=== PATIENT | male | born 1955 | race Caucasian/White ===

== ENCOUNTER 2018-11-26 14:51 | Emergency (ER) | payer OTHER, SELFPAY ==
[2018-10-01 13:32] VITALS: BMI 21.6
[2018-11-26 14:52] VITALS: BP 157/73; PULSE 95; RESP 22; TEMP 38.7; O2SAT 93; BMI 21.3
[2018-11-26 14:55] VITALS: BP 157/73; PULSE 95; RESP 22; TEMP 38.7; O2SAT 93
[2018-11-26] MEDS: Ibuprofen 600 MG Tablet PO (15:27)
--- NOTE | 2018-11-26 15:33 | RAD_ITS ---
STUDY: X-RAY CHEST REASON FOR EXAM: Male, 63 years old. Fever and cough TECHNIQUE: Frontal and lateral views of the chest. COMPARISON: None. FINDINGS: Subsegmental atelectases in the right and left lung bases. There is no demonstrated pleural abnormality. Normal size heart. Normal mediastinum and eda. Normal visualized pulmonary arteries. Normal visualized aortic arch and descending thoracic aorta. Normal visualized thoracic spine. There is degenerative osteoarthritis of the bilateral shoulders. There is no demonstrated abnormality of the visualized soft tissue structures of the upper abdomen. RAD/Chest PA and Lateral IMPRESSION: Normal x-ray examination of the chest. Electronically Signed: Sol Sykes, at 15:46 EDT Tel , Service support ,
--- NOTE | 2018-11-26 15:49 | ED.VISSUMM ---
- ER Visit Summary Date of Service: 11/26/18 Chief Complaint: Fever and cough [] History of Present Illness: The patient is a 63 M presents to the emergency department with complaint of fever and cough that started 3 or 4 days ago. Patient states that yesterday he thought he was getting better but today symptoms came back with elevated temperature. Patient complains of a headache and runny nose. Patient states that several days ago he bought Mucinex and [place] but do not seem to be helping his symptoms. Patient denies any vomiting or diarrhea. Patient does have a history of COPD and remote history of prostate cancer. Patient not currently undergoing chemotherapy. Patient does complain of body aches. Patient states the cough is been nonproductive. He denies recent travel. [] Physical Examination: [HEENT-PERRLA, EOMI. Cranial nerves II through XII grossly intact. TMs clear. Mucous membranes moist. No adenopathy. Cardiovascular-regular rate and rhythm without murmur or ectopy Lungs-good aeration bilaterally. Patient has some faint expiratory wheezes. Mild tachypnea. No accessory muscle use or retractions. No conversational dyspnea. Abdomen-normoactive bowel sounds, soft, nontender, no rebound or rigidity, no peritoneal signs. Extremities-intact ?4, normal range of motion, normal pulses, atraumatic] Test Results: [Chest x-ray showed nothing acute. Fluids screen was positive for influenza.] Emergency Department Course and Treatment: [Patient was given ibuprofen 600 mg p.o. Patient was given a DuoNeb aerosol.] Treatment Plan: [Patient will be given albuterol for his nebulizer for home. Patient advised to push fluids and ibuprofen for fever control. Patient is not within the 88-hour window for starting Tamiflu.] Disposition: [Discharged home in stable condition. Patient advised to return if increasing shortness of breath or condition should worsen anyway.] Impression: [Influenza] This note was generated with [employer] dictation software. It may contain incorrect words, spelling, and punctuation that were not noted in review of the chart prior to signing ED Disposition - Plan for ED Patient: Referrals: Rolando Granda,Cheryl Harp [Primary Care Provider] -
[2018-11-26 15:59] VITALS: PULSE 97; RESP 20; O2SAT 94
[2018-11-26] MEDS: Ipratropium/Albuterol Sulfate 3 ML AMPUL.NEB INHALATION (15:59)
--- NOTE | 2018-11-26 16:19 | ED.DEP ---
ED Disposition - Plan for ED Patient: Instructions: ED Flu Prescriptions: Albuterol Aerosols [Ventolin Aerosols] 2.5 mg INHALATION Q4HWA.RT #25 vial.neb. Referrals: Cheryl Simmons [Primary Care Provider] - 5-7 Days
== END 2018-11-26 16:37 | disposition home or self-care (01) ==
LOC: ED 15:27
PROVIDERS: Emergency Provider Emergency Medicine
DX: J11.1 Influenza due to unidentified influenza virus with other respiratory manifestations (principal); J44.9 Chronic obstructive pulmonary disease, unspecified; Z72.0 Tobacco use
CPT/HCPCS: 71046; 87804; 94640; 99282; A4216

== ENCOUNTER → 2019-06-20 08:06 | Outpatient (CLI) | payer MEDICARE, SELFPAY ==
[2019-05-20 10:27] VITALS: BMI 21.2
[2019-06-20 09:11] LABS: Platelet Count 215 K/mm3 (150-450)
[2019-06-20 09:45] LABS: AST(SGOT) 31 U/L (15-37); Alanine Aminotransfer ALT/SGPT 41 U/L (16-61); Albumin, Serum 3.9 g/dL (3.2-5.0); Alkaline Phosphatase 85 U/L (45-117); Bilirubin, Direct 0.09 mg/dL (0.00-0.30); Globulin 3.4 g/dL (2.2-4.2); Protein, Total 7.3 g/dL (6.4-8.2)
[2019-06-20 10:33] LABS: Amphetamine Urine VISTA NEGATIVE (<1000 ng/mL); Barbiturate Urine VISTA NEGATIVE (< 200 ng/mL); Benzodiazepine Urine VISTA NEGATIVE (< 200 ng/mL); Cocaine Urine VISTA NEGATIVE (< 300 ng/mL); Ecstacy Urine VISTA NEGATIVE (< 500 ng/mL); Methadone Urine VISTA NEGATIVE (< 300 ng/mL); PCP Urine VISTA NEGATIVE (< 25 ng/mL); THC Urine VISTA NEGATIVE (< 50 ng/mL); Vista UDS pH Range 5
[2019-06-22 03:07] LABS: HCV Quant. RNA PCR 535000 IU/mL (.)
[2019-06-24 12:36] LABS: HCV log 10 5.728 (.)
== END ==
PROVIDERS: Referring Provider Internal Medicine Infectious Disease; Visit Provider Internal Medicine Infectious Disease
DX: B18.2 Chronic viral hepatitis C (principal); M25.512 Pain in left shoulder
CPT/HCPCS: 36415; 80076; 80307; 85049; 87522

== ENCOUNTER → 2019-07-01 09:02 | Outpatient (CLI) | payer MEDICARE, SELFPAY ==
[2019-05-20 10:27] VITALS: BMI 21.2
--- NOTE | 2019-07-01 09:05 | US_ITS ---
STUDY: ABDOMINAL ULTRASOUND REASON FOR EXAM: Male, 64 years old. Chronic hepatitis C TECHNIQUE: Transabdominal ultrasound was performed with real-time and static cabrera scale imaging. TECHNICAL QUALITY: Adequate. COMPARISON: None. FINDINGS: Liver: The liver measures 14.5 cm. There is diffusely increased echogenicity of the liver. The bile ducts are within normal limits. There is hepatic color flow. The direction of portal flow is hepatopetal. There is no demonstrated mass lesion. Portal vein measurement: Gallbladder: Normal distended gallbladder. The gallbladder wall measures 3 mm. There is a negative sonographic Valencia's sign. There is no pericholecystic fluid. There are no gallstones. Common Bile Duct (C.B.D.): The common bile duct measures 4 mm. Pancreas: Normal size of the head, body and tail of the pancreas. There is normal echogenicity of the pancreas. There is no demonstrated pancreatic mass or cyst. Spleen: Normal size of the spleen. The spleen measures 8.6 x 3.8 x 4.5 cm. Right Kidney: Normal size of the right kidney. The right kidney measures 10.5 x 4.7 x 3.8 cm. Normal renal cortex. The right cortex measures 1.3 cm. There is no demonstrated renal mass or cyst. There is no right hydronephrosis. Left Kidney: Normal size of the left kidney. The left kidney measures 9.9 x 4.7 x 4.5 cm. Normal renal cortex. The left cortex measures 1.6 cm. There is no demonstrated renal mass or cyst. There is no left hydronephrosis. Aorta: No evidence for aortic aneurysm I.V.C.: The IVC is patent. There is no ascites. US/Abdomen Complete IMPRESSION: Findings consistent with nonspecific hepatocellular disease. Mildly thick-walled gallbladder without stones possibly physiologic. If concern for gallbladder disease HIDA scan with stimulation recommended for further assessment Electronically Signed: Chris Grant MD at 19:38 EDT , Service support ,
== END ==
DX: B18.2 Chronic viral hepatitis C (principal)
CPT/HCPCS: 76700

== ENCOUNTER → 2019-08-13 08:03 | Outpatient (CLI) | payer MEDICARE, SELFPAY ==
[2019-05-20 10:27] VITALS: BMI 21.2
--- NOTE | 2019-08-13 08:20 | BD_ITS ---
STUDY: DUAL ENERGY X-RAY ABSORPTIOMETRY / DXA REASON FOR EXAM: Male, 64 years old. Loss of height. TECHNIQUE: Bone Mineral Density (BMD) measurements of lumbar spine and bilateral hips were obtained. COMPARISON: None. FINDINGS: Lumbar Spine (L1-L4): g/cm2 (1.076) / T-score (-1.1) / Z-score (-0.7) Findings are suggestive of osteopenia with a low fracture risk. Left Femur Total: g/cm2 (0.801) / T-score (-2.1) / Z-score (-1.5) Left Femoral Neck: g/cm2 (0.789) / T-score (-2.2) / Z-score (-1.1) Right Femur Total: g/cm2 (0.793) / T-score (-2.1) / Z-score (-1.6) Right Femoral Neck: g/cm2 (0.791) / T-score (-2.1) / Z-score (-1.1) BD/Dexa Bone Density Study IMPRESSION: The patient is considered osteopenic as outlined below according to World [employer] Organization (WHO) criteria with a high fracture risk. Reference Information: The T-score is the number of standard deviations above or below the standard which is normal for young adults at their peak bone mineral density. The World Health Organization (WHO) interprets the T-scores as follows: Above -1 Normal bone density Between -1 and -2.5 Osteopenia Equal to / or below -2.5 Osteoporosis As a practical clinical guideline, osteopenia may be graded as follows: Mild -1 through -1.5 Moderate -1.6 through -2.0 Severe -2.1 through -2.4 The Z-score is the number of standard deviations above or below age-matched controls. A Z-score of less than -1.5 would be considered abnormal. References: 1. NIH Osteoporosis and Related Bone Diseases http://www.osteo.org 2. International Society for Clinical Densitometry http://www.iscd.org 3. National Osteoporosis Foundation http://www.nof.org Electronically Signed: Adriano Martin, at 12:42 EST , Service support ,
== END ==
PROVIDERS: Referring Provider Internal Medicine Hematology & Oncology; Visit Provider Internal Medicine Hematology & Oncology
DX: C61 Malignant neoplasm of prostate (principal); C77.9 Secondary and unspecified malignant neoplasm of lymph node, unspecified; R97.21 Rising PSA following treatment for malignant neoplasm of prostate; Z79.52 Long term (current) use of systemic steroids
CPT/HCPCS: 36415; 77080; 80053; 84153; 85025

== ENCOUNTER 2020-06-09 18:48 | Emergency (ER) | payer MEDICARE, SELFPAY ==
[2020-02-17 13:07] VITALS: BMI 21.7
[2020-06-09 18:49] VITALS: BP 193/132; PULSE 67; RESP 16; TEMP 36.1; O2SAT 99; BMI 22.0
--- NOTE | 2020-06-09 20:34 | RAD_ITS ---
STUDY: X-RAY CHEST REASON FOR EXAM: Male, 65 years old. Feels as if pill is stuck, able to eat. TECHNIQUE: Frontal and lateral views of the chest. COMPARISON: 11/26/2018. FINDINGS: There is hyperinflation of the lungs consistent with chronic obstructive lung disease (COPD). No infiltrates or effusions. There is no demonstrated pleural abnormality. Normal size heart. Normal mediastinum and eda. Normal visualized pulmonary arteries. Normal visualized aortic arch and descending thoracic aorta. Normal visualized thoracic spine. Normal visualized ribs, clavicles, and shoulders. There is no demonstrated abnormality of the visualized soft tissue structures of the upper abdomen. RAD/Chest PA and Lateral IMPRESSION: There are findings consistent with COPD. There is no evidence of acute chest disease. Electronically Signed: Jordan Carlisle MD at 21:29 EDT , Service support ,
--- NOTE | 2020-06-09 21:07 | ED.VIS.GEN ---
History of Present Illness Chief Complaint: Foreign Body Informant: Patient Narrative: Patient is a 65-year-old male who presents to the emergency department for suspected foreign body in his esophagus. States that he felt he had a vitamin got stuck in his throat last night. He has been able to eat and drink well without any difficulty. He denies any difficulty handling secretions. No shortness of breath. Feels in the lower sternum area like there is still something there. He describes as a nagging sensation. No radiation into his back. He did an online evaluation with a doctor who recommended he come to the emergency department for suspected pill stuck in his esophagus. Patient has not tried taking anything for this. No known aggravating or relieving factors. He denies ever having this happen before in the past. Denies any nausea vomiting. No abdominal pain. No change in bowel habits. No urinary symptoms. No fevers or chills. Past Medical History - Allergies and Home Meds Allergies/Adverse Reactions: Allergies No Known Allergies Allergy (Verified 02/17/20 13:07) [facility] - 1-2 Days if not improving Prior records reviewed: Yes Past Medical History: - - COPD Surgical History: no surgical history Smoking Status: Current every day smoker Review of Systems All systems negative except as indicated General: Denies: Chills, Fever, Sweats Eyes: Denies: Visual changes - bilaterally, Diplopia ENT: Denies: Rhinorrhea, Sore throat Cardiovascular: Denies: Chest pain, Palpitations Respiratory: Denies: Dyspnea, Cough, Dyspnea on exertion Gastrointestinal: Reports: Abdominal pain - Gastric/lower sternum. Denies: Nausea, Vomiting, Diarrhea Genitourinary: Denies: Dysuria, Hematuria, Frequency Musculoskeletal: Denies: Back pain, Extremity Pain Skin: Denies: Rash, Wounds Neurological: Denies: Headache, Weakness, Numbness Physical Exam Vital Signs/Narrative: Vital Signs Temp Pulse Resp BP Pulse Ox 06/09/20 18:49 97 F L 67 16 193/132 H 99 Inital Vital Signs reviewed: Yes General: Well nourished, Well developed, No Acute Distress Head: Normocephalic, Atraumatic Eyes: Perrl, EOMI ENT: Moist mucous membranes, No rhinorrhea Neck: Supple, Nontender Cardiovascular: Regular rate, Regular rhythm, No murmurs Respiratory: No distress, CTA bilaterally, Chest nontender Abdomen: Soft, Nontender, Nondistended, Normal bowel sounds Back: Nontender, Normal Inspection Extremities: Nontender, No edema Skin: Normal color, No rash Neurological: Alert, Oriented x3, Cranial nerves II-XII grossly intact, Normal Strength, Normal Sensation Psychological: Normal affect, Normal Mood Diagnostic/Tx/Re-eval - Medical Decision Making Patient presents to the emergency department for suspected pill stuck in his esophagus. Upon arrival to the emergency department he is in no apparent distress. No issues with airway. He is hypertensive but otherwise normal vital signs. Check a chest x-ray. Will give GI cocktail for symptomatic treatment. At the patient's spot of discomfort is near the epigastric/lower sternum region. I discussed that it be very difficult for me to use a camera to evaluate this area. X-ray did not reveal any acute cardiopulmonary abnormality. After GI cocktail and Tylenol he is feeling better at this time. Oropharynx is clear. No stridor. Believe that most likely patient had a scratch from taking the multivitamin. If he does not have any relieving symptoms over the next days to follow-up with his PCP for potential GI scope. Warning signs and symptoms for which to return to the ED are reviewed with him. He understands and is agreeable this plan. Will discharge home in stable condition. ED Disposition - Plan for ED Patient: Disposition: Home or Assisted Living Diagnosis: Sensation of foreign body in esophagus Instructions: ED Foreign Body Swallowed Referrals: [facility],Cheryl Harp [Primary Care Provider] - 1-2 Days if not improving
[2020-06-09] MEDS: Mag Hydrox/Al Hydrox/Simeth 30 ML UDC PO (22:04)
[2020-06-09 22:29] VITALS: BP 174/94; PULSE 66; RESP 15; O2SAT 99
[2020-06-09] MEDS: Acetaminophen 325 MG Tablet 650 MG PO (22:58)
== END 2020-06-09 23:07 | disposition home or self-care (01) ==
PROVIDERS: Emergency Provider Emergency Medicine
DX: T18.198A Other foreign object in esophagus causing other injury, initial encounter (principal); F17.200 Nicotine dependence, unspecified, uncomplicated; J44.9 Chronic obstructive pulmonary disease, unspecified; X58.XXXA Exposure to other specified factors, initial encounter; Z79.82 Long term (current) use of aspirin
CPT/HCPCS: 71046; 99282

== ENCOUNTER 2020-06-14 14:38 | Emergency (ER) | payer MEDICARE, SELFPAY ==
[2020-06-14 14:39] VITALS: BP 145/87; PULSE 83; RESP 16; TEMP 36.6; O2SAT 98; BMI 22.0
--- NOTE | 2020-06-14 15:15 | EKG12_ITS ---
Test Reason : CP Blood Pressure : / mmHG Vent. Rate : 076 BPM Atrial Rate : 076 BPM P-R Int : 148 ms QRS Dur : 082 ms QT Int : 386 ms P-R-T Axes : 064 104 074 degrees QTc Int : 434 ms Normal sinus rhythm Rightward axis Septal infarct , age undetermined Abnormal ECG Confirmed by NISH VEGA, BRITTNEE ([id number]), editor in chief newspaper CLAYTON BRITO ([id number]) on 06/17/2020 10:03:55 AM Referred By: PC Confirmed By:BRITTNEE MOCK MD
--- NOTE | 2020-06-14 15:18 | ED.VIS.GEN ---
History of Present Illness Chief Complaint: General Illness Narrative: Patient presents with epigastric pain and worsening esophageal pain when he lays down at night this is been ongoing for a few weeks. He has no other chest pain he has no back pain he has no tearing sensation he has some nausea but no vomiting. No fever or chills. Past Medical History - Allergies and Home Meds Allergies/Adverse Reactions: Allergies No Known Allergies Allergy (Verified 06/14/20 14:50) Primary Care Physician: [facility],Cheryl Harp [Primary Care Provider] - Past Medical History: - - COPD, continues to smoke Surgical History: no surgical history Smoking Status: Current every day smoker Review of Systems All systems negative except as indicated General: Denies: Fever ENT: Denies: Rhinorrhea, Sore throat Cardiovascular: Reports: - - Chest tightness when he lays down at night Respiratory: Denies: Dyspnea, Cough, Sputum, Dyspnea on exertion, Orthopnea Gastrointestinal: Reports: Abdominal pain, Nausea. Denies: Vomiting, Diarrhea, Constipation Genitourinary: Denies: Dysuria Musculoskeletal: Denies: Myalgias Skin: Denies: Rash, Abscess, Abrasions Neurological: Denies: Headache, Weakness Endocrine: Denies: Polyuria, Polydipsia Hematologic: Denies: Easy bruising, Easy bleeding Physical Exam Vital Signs/Narrative: Vital Signs Temp Pulse Resp BP Pulse Ox 06/14/20 14:39 97.8 F 83 16 145/87 H 98 General: - - He is quite comfortable on the bed. Head: Normocephalic, Atraumatic Eyes: Perrl, EOMI ENT: Moist mucous membranes, No rhinorrhea Neck: Supple Cardiovascular: Regular rate, Regular rhythm, No murmurs Respiratory: No distress, CTA bilaterally, Chest nontender, - Abdomen: Soft, - - Mild epigastric tenderness no guarding or rebound no right upper quadrant pain negative Valencia's. Back: Nontender, Normal Inspection. Negative for: CVA tenderness Extremities: Nontender, No edema. Negative for: Tenderness Skin: Normal color, No rash Neurological: Alert, Oriented x3 Psychological: Normal affect Diagnostic/Tx/Re-eval - Rhythm Strip Rhythm Strip: Sinus Rhythm Rate: 76 Ectopy: None - EKG Initial EKG Interpretation: - - Sinus rhythm with a rate of 76. Normal TN and QTc intervals. No ischemic changes seen. Overall a normal EKG Interpreted by emergency doctor - Medical Decision Making Patient has an unremarkable work-up, I believe this is GI in etiology I will refer to GI. Otherwise I will discharge her him with a proton pump inhibitor and GI medications. ED Disposition - Plan for ED Patient: Disposition: Home or Assisted Living Diagnosis: Gastritis Instructions: ED Gastritis, ED PEPTIC ULCER vs GASTRITIS Prescriptions: Hydrocodone Bitart/Apap 5-325 [Clyde 5MG-325MG] 1 tablet PO Q4H PRN PRN 2 Days #10 tablet PRN Reason: Pain [facility] Status[facility] Omeprazole 40 mg PO DAILY #30 capsule.dr Transmission Status: Pending to [facility] Referrals: Arron Neely MD [NON-STAFF] - 2 Days
--- NOTE | 2020-06-14 15:30 | RAD_ITS ---
STUDY: X-RAY CHEST REASON FOR EXAM: Male, 65 years old. Chest heaviness, COPD. TECHNIQUE: Frontal view COMPARISON: 06/09/2020. FINDINGS: The lungs are clear and expanded. There is no demonstrated pleural abnormality. Normal size heart. Normal mediastinum and eda. Normal visualized pulmonary arteries. Normal visualized aortic arch and descending thoracic aorta. Degenerative changes of the thoracic spine. Degenerative changes of the shoulders. There is no demonstrated abnormality of the visualized soft tissue structures of the upper abdomen. RAD/Chest 1 View (Portable) IMPRESSION: Normal x-ray examination of the chest. Electronically Signed: Joel Marroquin DO at 16:17 EDT Tel [phone], Service support ,
[2020-06-14 15:44] LABS: Absolute Lymphocyte Count 1.91 X10^3/uL (0.83-4.51); Absolute Neutrophil Count 6.7 X10^3/uL (2.0-7.7); Basophil# 0.09 X10^3/uL; Basophil% 0.9 % (0-1); Eosinophil# 0.48 X10^3/uL; Eosinophils% 4.9 % (0-5); Hematocrit 42.2 % (40-54); Lymphocyte # 1.91 X10^3/ul (4.0); Lymphocyte % 19.5 % (19-41); Mean Corp Hgb Conc 33.2 g/dL (32-36); Mean Corpuscular Hgb 30.6 pg (27.0-32.0); Mean Corpuscular Volume 92.1 fL (80-94); Mean Platelet Vol. 10.2 fl (6.2-12.0); Monocyte# 0.62 X10^3/uL; Monocyte% 6.3 % (0-10); NRBC Flagged by Analyzer 0 % (0-5); Neutrophil # 6.66 X10^3/uL (2.7-7.7); Platelet Count 210 K/mm3 (150-450); RBC Distribution Width CV 12.8 % (11.6-14.6); RBC Distribution Width SD 43.3 fl (35.1-43.9); Red Blood Count 4.58 M/mm3 (4.6-6.2); White Blood Count 9.8 K/mm3 (4.4-11.0)
[2020-06-14] MEDS: Sucralfate 1 GM Tablet PO (15:48)
[2020-06-14] MEDS: Famotidine 200 MG/20 ML MDV 20 MG in 0.9% Normal Saline (Pres. free 8 ML 300 MG IV (15:48)
[2020-06-14 15:52] LABS: AST(SGOT) 17 U/L (15-37); Alanine Aminotransfer ALT/SGPT 18 U/L (16-61); Albumin, Serum 3.6 g/dL (3.2-5.0); Alkaline Phosphatase 82 U/L (45-117); Anion Gap 6 (5-15); BUN 14 mg/dL (7-18); BUN/Creat Ratio 14.1 RATIO (10-20); Calcium,Total 9.4 mg/dL (8.5-10.1); Chloride 108 mmol/L (98-107); Creatinine, Serum 0.99 mg/dL (0.70-1.30); EST Glomerular Filtration Rate 80 mL/min (>60); Est Glom Filt Rate - Afr Amer 97 mL/min (>60); Estimated Creatinine Clearance 68.28 ml/min; Globulin 3.5 g/dL (2.2-4.2); Glucose 101 mg/dL (74-106); Lipase 127 U/L (73-393); Potassium 3.5 mmol/L (3.5-5.1); Protein, Total 7.1 g/dL (6.4-8.2); Sodium Level 141 mmol/L (136-145)
[2020-06-14] MEDS: Mag Hydrox/Al Hydrox/Simeth 30 ML UDC PO (17:14)
[2020-06-14 17:18] VITALS: RESP 16
== END 2020-06-14 17:19 | disposition home or self-care (01) ==
PROVIDERS: Emergency Provider Emergency Medicine
DX: K29.70 Gastritis, unspecified, without bleeding (principal); F17.200 Nicotine dependence, unspecified, uncomplicated; J44.9 Chronic obstructive pulmonary disease, unspecified; Z79.82 Long term (current) use of aspirin
CPT/HCPCS: 71045; 80053; 83690; 84484; 85025; 93005; 99284; A4216; J3490

== ENCOUNTER 2020-06-19 23:14 | Emergency (ER) | payer MEDICARE, SELFPAY ==
[2020-06-19 23:16] VITALS: BP 189/107; PULSE 68; RESP 15; TEMP 36.6; O2SAT 100; BMI 22.1
[2020-06-19] MEDS: Mag Hydrox/Al Hydrox/Simeth 30 ML UDC PO (23:46)
[2020-06-19 23:56] LABS: Absolute Lymphocyte Count 1.92 X10^3/uL (0.83-4.51); Absolute Neutrophil Count 7.2 X10^3/uL (2.0-7.7); Basophil# 0.08 X10^3/uL; Basophil% 0.8 % (0-1); Eosinophil# 0.49 X10^3/uL; Eosinophils% 4.7 % (0-5); Hematocrit 42.9 % (40-54); Hemoglobin 14.5 g/dL (13.0-16.5); Lymphocyte # 1.92 X10^3/ul (4.0); Lymphocyte % 18.3 % (19-41); Mean Corp Hgb Conc 33.8 g/dL (32-36); Mean Corpuscular Hgb 31.3 pg (27.0-32.0); Mean Corpuscular Volume 92.7 fL (80-94); Mean Platelet Vol. 10.3 fl (6.2-12.0); Monocyte# 0.75 X10^3/uL; Monocyte% 7.1 % (0-10); NRBC Flagged by Analyzer 0 % (0-5); Neutrophil # 7.24 X10^3/uL (2.7-7.7); Neutrophil % 68.8 % (47-70); Platelet Count 237 K/mm3 (150-450); RBC Distribution Width SD 43.6 fl (35.1-43.9); Red Blood Count 4.63 M/mm3 (4.6-6.2); White Blood Count 10.5 K/mm3 (4.4-11.0)
[2020-06-20 00:03] LABS: ALB/GLOB Ratio 1.1 RATIO (0.9-2.4); AST(SGOT) 20 U/L (15-37); Alanine Aminotransfer ALT/SGPT 23 U/L (16-61); Alkaline Phosphatase 81 U/L (45-117); Anion Gap 6 (5-15); BUN 11 mg/dL (7-18); BUN/Creat Ratio 11.2 RATIO (10-20); Calcium,Total 9.4 mg/dL (8.5-10.1); Chloride 106 mmol/L (98-107); Creatinine, Serum 0.99 mg/dL (0.70-1.30); EST Glomerular Filtration Rate 81 mL/min (>60); Est Glom Filt Rate - Afr Amer 98 mL/min (>60); Estimated Creatinine Clearance 68.75 ml/min; Globulin 3.6 g/dL (2.2-4.2); Glucose 100 mg/dL (74-106); Lipase 95 U/L (73-393); Potassium 3.5 mmol/L (3.5-5.1); Protein, Total 7.6 g/dL (6.4-8.2); Sodium Level 140 mmol/L (136-145)
--- NOTE | 2020-06-20 00:14 | ED.RN ---
4021 PT WAS VERY ARGUMENTIVE WITH THIS NURSE,REFUSED TO PUT A GOWN ON,WAS QUESTIONING WHY HE HAD TO HAVE BLOOD DONE,TOO MANY TUBES DRAWN AND WHY THE IV HAS TO STAY IN.PT DID NPT GET IN A GOWN.
--- NOTE | 2020-06-20 00:20 | ED.VISSUMM ---
- ER Visit Summary Date of Service: 06/20/20 Chief Complaint: Abdominal pain History of Present Illness: The patient is a 65 M who presents with abdominal pain. He said this pain for 3 weeks. He has been seen here multiple times for this. His pain is in his epigastric region. Nothing makes it better or worse. He denies nausea or vomiting or diarrhea. He has had some slight constipation but he did have a bowel movement today. He denies fevers. He was seen here on June 14 and was given [place] and a PPI for his pain. He states that he is out of his [place] and the PPIs not helping with his pain. He was told to follow-up with Dr. Hendrickson but he states he has not had a phone call from his office. Physical Examination: Vital signs reviewed. HEENT exam unremarkable. Heart is regular rate and rhythm without murmurs. Lungs are clear to auscultation. Abdomen is soft with mild epigastric tenderness. Extremities reveal no edema. Skin exam normal. Neurologic exam normal. Test Results: Laboratory studies including CBC, CMP and lipase are normal Emergency Department Course and Treatment: Patient was given a GI cocktail without relief. I will add Carafate to this. I am unclear the etiology of his pain. It could be gastritis and/or ulcers. He does need to follow-up for outpatient endoscopy. I will send him home with Carafate and he is going to call tomorrow for follow-up Treatment Plan: [] Disposition: Discharge Impression: Epigastric abdominal pain This note was generated with [employer] dictation software. It may contain incorrect words, spelling, and punctuation that were not noted in review of the chart prior to signing ED Disposition - Plan for ED Patient: Disposition: Home or Assisted Living Instructions: ED Unknown Causes of Abdominal Pain Male Prescriptions: Sucralfate [Carafate] 1 gm PO 4X/DAY #60 tab Transmission Status: Pending to [facility] Referrals: [facility],Cheryl Harp [Primary Care Provider] -
[2020-06-20] MEDS: Sucralfate 1 GM Tablet PO (00:49)
[2020-06-20 00:54] VITALS: RESP 18
== END 2020-06-20 00:55 | disposition home or self-care (01) ==
PROVIDERS: Emergency Provider Emergency Medicine
DX: R10.13 Epigastric pain (principal); F17.200 Nicotine dependence, unspecified, uncomplicated
CPT/HCPCS: 80053; 83690; 85025; 99283; A4216

== ENCOUNTER → 2020-06-23 18:46 | Outpatient (CLI) | payer MEDICARE, SELFPAY ==
[2020-06-19 23:16] VITALS: BMI 22.1
[2020-06-23 12:41] VITALS: BMI 21.7
--- NOTE | 2020-06-23 18:52 | US_ITS ---
ACR Level 3 findings have been noted. An addendum which confirms receipt of the report will follow. STUDY: ABDOMINAL ULTRASOUND - RIGHT UPPER QUADRANT REASON FOR VISIT: Male, 65 years old EPIGASTRIC PAIN HEP C TECHNIQUE: Ultrasound evaluation of the right upper quadrant was performed with real-time and static cabrera-scale imaging. TECHNICAL QUALITY: Adequate. COMPARISON: 07/01/2019 FINDINGS: Liver: The liver measures 14.3 cm. There is increased echogenicity consistent with fatty infiltration. The bile ducts are within normal limits. There is hepatic color flow. The direction of portal flow is hepatopetal. A heterogeneous mass is present in the right upper quadrant, measuring 7.6 x 5.0 x 4.7 cm. This is most likely arising from the liver, although the possibility of a cortical mass such as adenopathy or a pancreatic head mass are not excluded. Correlation with postcontrast CT or MRI is recommended if possible. Gallbladder: Normal distended gallbladder. The gallbladder wall measures 3 mm. There is a negative sonographic Valencia''s sign. There is no pericholecystic fluid. There are no shadowing gallstones. Probable 3 mm nonshadowing gallbladder polyp. Common Bile Duct (C.B.D.): The common bile duct measures 3 mm. Pancreas: The pancreatic head is heterogeneous in appearance and contains a 11 x 10 x 8 mm hypoechoic nodule. Pancreatic neoplasm is not excluded. Right Kidney: Normal size of the right kidney. The right kidney measures 10.7 x 4.7 x 4.5 cm. Normal renal cortex. The right cortex measures 2 cm. There is no demonstrated renal mass or cyst. There is no right hydronephrosis. US/Abdomen Limited IMPRESSION: Right upper quadrant mass, likely hepatic in origin, although portal adenopathy or pancreatic head mass cannot be excluded. Correlation with postcontrast CT or MRI is recommended if possible. Probable small gallbladder polyp. 11 mm pancreatic head nodule. Neoplasm cannot be excluded. Electronically Signed: Ghassan Peres MD at 20:43 EDT Tel , Service support ,
== END ==
PROVIDERS: PCP Nurse Practitioner Family; Visit Provider Surgery
DX: R10.13 Epigastric pain (principal)
CPT/HCPCS: 76705

== ENCOUNTER → 2020-06-24 08:30 | Outpatient (CLI) | payer MEDICARE, SELFPAY ==
[2020-06-23 12:41] VITALS: BMI 21.7
--- NOTE | 2020-06-24 08:32 | CT_ITS ---
STUDY: CT ABDOMEN AND PELVIS WITH CONTRAST REASON FOR EXAM: Male, 65 years old. RUQ ABDOMINAL MASS, ABNORMAL US, ABDOMINAL PAIN. H/O HEP C, PROSTATE CA RADIATION DOSAGE (If Supplied By Facility): CTDIvol = ( 8.575 ) mGy, DLP = ( 369.86 ) mGycm TECHNIQUE: Transaxial images were obtained from the dome of the diaphragm to the symphysis pubis with oral contrast. Oral and amp; IV Readi-CAT and amp; 100mL Isovue-300 was administered. Sagittal and coronal images were reconstructed. Individualized dose optimization techniques were used for this CT. COMPARISON: Comparison is made with prior ultrasound of the abdomen dated 06/23/2020. FINDINGS: The visualized lung bases are unremarkable. The visualized portions of the heart are within normal limits. Normal liver. Normal gallbladder and extrahepatic biliary system. Normal spleen. There is a 6.5 cm x 7.3 cm x 8.1 cm soft tissue mass in the region of the herman hepatis extending into the epigastric region encasing the right hepatic artery and the portal vein. This pushes the body and tail portion of the pancreas anteriorly. This extends into the area between the duodenum and pancreatic head. The pancreatic duct and common bile duct are not dilated. This most likely is secondary to adenopathy. Normal bilateral adrenal glands. Normal right kidney. Normal left kidney. Normal visualized stomach. Normal small intestine. There are multiple colonic diverticula consistent with diverticulosis. The appendix is visualized and appears normal. There is diffuse atherosclerotic calcification of the abdominal aorta, without a demonstrated aneurysm. Normal inferior vena cava. There is borderline retroperitoneal lymphadenopathy with enlarged nodes no greater than 10mm in the short axis diameter. Normal urinary bladder. Normal abdominal wall. There are degenerative changes of the visualized lumbar spine. CT/Abdomen/Pelvis WITH Contrast IMPRESSION: Large soft tissue mass involving the epigastric region extending into the herman hepatis as well as in the right mid abdomen. This is suggestive of adenopathy. There is encasement of the right hepatic artery as well as the celiac branches. Electronically Signed: Adriano Martin, at 11:32 EDT , Service support ,
[2020-06-24 14:17] LABS: Hematocrit 42.5 % (40-54); Mean Corp Hgb Conc 32.9 g/dL (32-36); Mean Corpuscular Hgb 30.8 pg (27.0-32.0); Mean Corpuscular Volume 93.4 fL (80-94); Mean Platelet Vol. 10.3 fl (6.2-12.0); Platelet Count 243 K/mm3 (150-450); RBC Distribution Width CV 12.9 % (11.6-14.6); RBC Distribution Width SD 43.9 fl (35.1-43.9); Red Blood Count 4.55 M/mm3 (4.6-6.2); White Blood Count 8.2 K/mm3 (4.4-11.0)
[2020-06-24 14:56] LABS: AST(SGOT) 86 U/L (15-37); Alanine Aminotransfer ALT/SGPT 91 U/L (16-61); Albumin, Serum 3.8 g/dL (3.2-5.0); Alkaline Phosphatase 119 U/L (45-117); Bilirubin, Direct 0.24 mg/dL (0.00-0.30); Globulin 3.5 g/dL (2.2-4.2); Protein, Total 7.3 g/dL (6.4-8.2)
== END ==
PROVIDERS: PCP Nurse Practitioner Family; Referring Provider Surgery; Visit Provider Surgery
DX: B18.2 Chronic viral hepatitis C (principal); R19.01 Right upper quadrant abdominal swelling, mass and lump; R10.9 Unspecified abdominal pain; R93.5 Abnormal findings on diagnostic imaging of other abdominal regions, including retroperitoneum
CPT/HCPCS: 36415; 74177; 80076; 85027; Q9967

== ENCOUNTER → 2020-06-24 13:25 | Outpatient (CLI) | payer MEDICARE, SELFPAY ==
[2020-06-23 12:41] VITALS: BMI 21.7
== END ==
PROVIDERS: Anesthesiology; Visit Provider Surgery
DX: Z20.828 Contact with and (suspected) exposure to other viral communicable diseases (principal)
CPT/HCPCS: 87635; C9803; U0003

== ENCOUNTER 2020-06-26 12:07 | Emergency (ER) | payer MEDICARE, SELFPAY ==
[2020-06-25 15:07] VITALS: BMI 22.4
[2020-06-26 12:07] VITALS: BP 118/84; PULSE 88; RESP 17; TEMP 36.6; O2SAT 97; BMI 21.4
--- NOTE | 2020-06-26 12:42 | ED.VISSUMM ---
- ER Visit Summary Date of Service: 06/26/20 Chief Complaint: Bilateral flank pain History of Present Illness: The patient is a [address] Sherwood and Dr. Rose. He reports that he had bilateral flank pain that lasted all night. He states that it was a sharp, aching pain that was 10 out of 10 in severity. He is pain-free currently. Nothing seemed to make this better or worse. There was no associated nausea, vomiting, diarrhea. His last bowel movements today. No melena medic easier. No dysuria or frequency. Patient saw his oncologist yesterday and was found to have a mass in his abdomen that he is scheduled for an ultrasound-guided biopsy here next Monday. He does not have any pain medications at home. Physical Examination: Vitals: Stable. Afebrile. General: Well-nourished and well-developed. Head: Normocephalic atraumatic. Neck: Supple, no lymphadenopathy. No JVD. Nontender. Cardiovascular: Regular rate and rhythm. No murmurs. Respiratory: No respiratory distress. Clear to auscultation bilaterally. Abdominal: Soft, nontender, nondistended, normal bowel sounds. No guarding, rebound, or peritoneal signs. Back: Nontender. Extremities: Nontender, no edema. Skin: Normal color, no rash. Neurologic: Alert and oriented ?3. Cranial nerves II through XII are intact. Normal strength and sensation. Psych: Normal affect. Test Results: I reviewed the patient's CT 2 days ago and it shows: Normal liver. Normal gallbladder and extrahepatic biliary system. Normal spleen. There is a 6.5 cm x 7.3 cm x 8.1 cm soft tissue mass in the region of the herman hepatis extending into the epigastric region encasing the right hepatic artery and the portal vein. This pushes the body and tail portion of the pancreas anteriorly. This extends into the area between the duodenum and pancreatic head. The pancreatic duct and common bile duct are not dilated. This most likely is secondary to adenopathy. Emergency Department Course and Treatment: Patient is resting comfortably. He recently had blood work and CT. He does not want any further evaluation taken at this time. Treatment Plan: An OAR[facility] report was obtained which shows patient had one prescription for opiates in the past year. He will be discharged with Colace and 10 [place]. Instructed to follow-up with his oncologist and/or family doctor for further treatment of his pain. Return to the emergency department for any worsening symptoms. Disposition: To home in improved and stable condition. Impression: 1. Flank pain. 2. Epigastric mass. This note was generated with [employer] dictation software. It may contain incorrect words, spelling, and punctuation that were not noted in review of the chart prior to signing ED Disposition - Plan for ED Patient: Instructions: ED Flank Pain Uncertain Cause Prescriptions: Docusate Sodium [Colace] 100 mg PO DAILY #20 capsule Hydrocodone Bitart/Apap 5-325 [[place] 5MG-325MG] 1 tablet PO Q4H PRN PRN 2 Days #10 tablet PRN Reason: Pain Referrals: Digna Bravo MD [STAFF PHYSICIAN] - 5-7 Days
== END 2020-06-26 12:59 | disposition home or self-care (01) ==
LOC: ED 12:44
PROVIDERS: Emergency Provider Emergency Medicine
DX: R10.9 Unspecified abdominal pain (principal)
CPT/HCPCS: 99281; 99283

== ENCOUNTER → 2020-07-03 08:03 | Outpatient (CLI) | payer MEDICARE, SELFPAY ==
[2020-06-25 15:07] VITALS: BMI 22.4
[2020-07-01 13:17] VITALS: BMI 21.6
[2020-07-03] VITALS (9 sets, daily range): BP systolic 127–237; BP diastolic 76–106; PULSE 69–74; RESP 12–21; TEMP 36.6; O2SAT 95–99; BMI 21.2
--- NOTE | 2020-07-03 | IMM_PTH ---
PATIENT: AMIE KILLIAN LOC: CT U#:[id number] AGE/SX: 70/M ROOM: RE07/03/[address]: Dr. Digna Bravo MD : 1955 BED: DIS: SPEC #: [id number] RECD: 07/06/20 13:28 STATUS: JOANNE REQ #: [id number] HENOK: 07/03/20 00:[address]: Digna Bravo DEPT: IMMUNOHISTOCHEMISTRY RECD BY: Mylene Hooper ENTERED: 07/06/20 13:29 SP TYPE: IMMUNO OTHR DR: Dr. Gricelda Rose MD Tissues: Kiara hepatis Procedures: CK8 (initial) BCL-2 (add) BCL-6 (add) CD10 (add) CD20 (add) CD23 (add) CD3 (add) CD30 (add) CD43 (add) CD45 (add) CD5 (add) CD79A (add) CYCLIN (add) KI-67 (add) MUM1 (add) C-MYC (add) Pankeratin (add) PHYSICIAN & [address] [address] SPECIMEN INFORMATION: Tissue Source: Kiara hepatis Clinical Info: Abdominal lymphadenopathy Specimen Number: [id number] CPT code: 96620, 77909 x16 METHODOLOGY: Deparaffinized sections of prefer/formalin-fixed tissue or PAP/DQ stained slides are incubated with monoclonal/polyclonal antibodies/oligonucleotide probes. Localization is made via biotin free immunoperoxidase method. Appropriate controls are performed and reacted as expected. Results on target cell population are indicated in the following table: RESULTS: ANTIBODY / CLONE RESULT CK8 ([id number]) negative AE1-3 (AE1/AE3/PCK26) negative CD45 (RP2/18) positive CD3 (PS1) negative CD5 (SP10) negative CD10 (56C6) positive CD20 (L26) positive CD23 (1B12) negative CD43 (L60) negative CD30 ([place]-H2) negative CD79a (11E3) positive BCL-2 (bcl-2/100/D5) negative BCL-6 (TQ589C/A8) positive Cyclin D1/BCL-1 (SP4) negative MUM1 (MRQ-43) negative C-MYC (Y69) positive, 80% Ki-67 (30-9) positive, high, 100% These tests were developed and their performance characteristics determined by [facility]. They may not have been cleared or approved by the U.S. Food and Drug Administration. The FDA has determined that such clearance or approval is not necessary. The above immunohistochemical/dualISH markers are ordered and reviewed by the Pathologist. INTERPRETATION: Lymph node, abdominal, CT-guided core biopsy: High grade B-cell lymphoma, NOS. See comment. SJ:rg 07/14/20 Comment: The specimen is sent to [facility] for expert opinion and reviewed by Dr. Rubin Medina and above diagnosis is rendered. Complete report is viewable in patient's EMR. FISH studies for WALDEMAR, MYC, BCL2 and BCL6 rearrangement studies performed at [facility] supports the above diagnosis This case has been reviewed in consultation with Dr. Horton who concurs with the above diagnosis.
--- NOTE | 2020-07-03 | ASPIGT_PTH ---
PATIENT: AMIE KILLIAN LOC: CT U#:[id number] AGE/SX: 70/M ROOM: RE07/03/[address]: Dr. Digna Bravo MD : 1955 BED: DIS: SPEC #: [id number] RECD: 07/03/20 10:22 STATUS: JOANNE MADAN #: [id number] HENOK: 07/03/20 00:[address]: Digna Bravo DEPT: SURGICAL PATHOLOGY RECD BY: Luis Enrique Miguel ENTERED: 07/03/20 10:23 SP TYPE: ASP RAD OTHR DR: Dr. Gricelda Rose MD Tissues: Abdomen, NOS Procedures: FNA Specimen Adequacy Special Stain Group II Surgery Specimen Level IV Imprint (control) HEADER OPERATION: CT-guided biopsy abdomen mass PRE-OP DIAGNOSIS: Abdominal lymphadenopathy TISSUE SUBMITTED: Herman hepatis 18-gauge core x6 MICROSCOPIC DIAGNOSIS Lymph node, abdominal, CT-guided core biopsy: High grade B-cell lymphoma, NOS. See comment. URIAH:kinsey 07/20/20 COMMENT The specimen is evaluated at the time of biopsy by Dr. Ackerman. Immediate Evaluation = Atypical lymphocytes are noted. The specimen is sent to [facility] for expert opinion and reviewed by Dr. Rubin Medina and above diagnosis is rendered. Complete report is viewable in patient's EMR. Immunohistochemistry ([id number]) performed here and FISH studies for WALDEMAR, MYC, BCL2 and BCL6 rearrangement studies performed at [facility] supports the above diagnosis. Case has been reviewed in consultation with Dr. Horton who concurs with the above diagnosis. IDC:AM MICROSCOPIC DESCRIPTION Slides are reviewed. GROSS DESCRIPTION Received in fixative is one container labeled with the patient's name and designated herman hepatis lymph node. The specimen consists of multiple elongated fragments of bond soft tissue that in aggregate measure 1.5 x 0.5 x 0.1 cm. One core is submitted for flow cytometry study. The entire specimen is submitted in one cassette. One touch imprint is prepared at the time of core biopsy. / URIAH:kinsey 07/03/20 TC:0 CPT: 82046, 54562
--- NOTE | 2020-07-03 08:04 | CT_ITS ---
PROCEDURE: CT GUIDED biopsy of the periportal soft tissue mass. DATE: 07/03/2020. INDICATION: Male, 65 years old. Soft tissue mass in the periportal region extending into the peripancreatic region. PHYSICIAN: Adriano Martin M.D. RADIATION DOSAGE (If Supplied By Facility): CTDIvol = ( 16 ) mGy, DLP = ( 381.98 ) mGycm. Individualized dose optimization techniques were utilized. PROCEDURE: The risks, benefits, and alternatives to the procedure were explained to the patient. The specific risk of hemorrhage requiring further treatment or intervention was detailed and accepted. Follow-up instructions were discussed with the patient as well. Written informed consent was obtained. The patient was brought into the CT suite and placed in the supine position. . An appropriate entry site was identified. The overlying skin was prepped and draped in the usual sterile fashion. 1% lidocaine was administered subcutaneously for local anesthesia. Conscious sedation was performed. The patient received 2 mg of VERSED and 50 mcg of FENTANYL intravenously. Conscious sedation was started at 9:35 AM and terminated at 10:00 AM. The patient was independently monitored by the department nurse. Under CT guidance, a total of 6 passes were performed utilizing an 18-gauge core biopsy needle system. The specimens were then placed in the appropriate fluid and transported to the laboratory for analysis. Hemostasis was obtained. The patient tolerated the procedure well without immediate complications. CT/Biopsy/Inj or Needle Placement IMPRESSION: Successful CT guided biopsy of a periportal mass, as described above. The conscious sedation protocol was followed. Electronically Signed: Adriano Martin, at 10:17 EDT , Service support ,
[2020-07-03 08:15] LABS: Absolute Lymphocyte Count 0.87 X10^3/uL (0.83-4.51); Absolute Neutrophil Count 6.1 X10^3/uL (2.0-7.7); Basophil# 0.06 X10^3/uL; Basophil% 0.7 % (0-1); Eosinophil# 0.28 X10^3/uL; Eosinophils% 3.5 % (0-5); Hematocrit 42.9 % (40-54); Hemoglobin 14.1 g/dL (13.0-16.5); Lymphocyte # 0.87 X10^3/ul (4.0); Lymphocyte % 10.8 % (19-41); Mean Corp Hgb Conc 32.9 g/dL (32-36); Mean Corpuscular Hgb 31.2 pg (27.0-32.0); Mean Corpuscular Volume 94.9 fL (80-94); Mean Platelet Vol. 10.3 fl (6.2-12.0); Monocyte# 0.67 X10^3/uL; Monocyte% 8.3 % (0-10); NRBC Flagged by Analyzer 0 % (0-5); Neutrophil # 6.14 X10^3/uL (2.7-7.7); Neutrophil % 76.3 % (47-70); Platelet Count 227 K/mm3 (150-450); RBC Distribution Width CV 13.3 % (11.6-14.6); RBC Distribution Width SD 46.5 fl (35.1-43.9); Red Blood Count 4.52 M/mm3 (4.6-6.2); White Blood Count 8.1 K/mm3 (4.4-11.0)
[2020-07-03 08:28] LABS: Prothrombin Time (Protime)PT. 12.3 SECONDS (11.7-14.9)
[2020-07-03 08:29] LABS: Partial Thromboplast Time 25.9 Seconds (24.1-36.2)
[2020-07-03] MEDS: 0.9% Saline Lock 10 ML Syringe IV (09:14)
[2020-07-03] MEDS: Ondansetron 4 MG/2 ML Vial IV (09:14)
[2020-07-03] MEDS: Midazolam 2 MG/2 ML Syringe IV ×2 (09:38→09:50)
[2020-07-03] MEDS: fentaNYL 100 MCG/2 ML Ampul IV (09:40)
--- NOTE | 2020-07-06 14:36 | NURSING ---
PT THEN FILLED RX FOR FENTANYL FROM DR SALTER AND WAS ABLE TO GO HOME AND SLEEP. HAS NOT YET APPLIED PATCH. CONCERNED FOR NAUSEA TONIGHT, DESPITE PAIN SUBSIDING. PT ENCOURAGED TO CALL DR CUMMINS OFFICE TO UPDATE ON SYMPTOMS, NEXT APPT IS NOT UNTIL MONDAY. PT VERBALIZED UNDERSTANDING.
== END ==
PROVIDERS: PCP Internal Medicine; Referring Provider Internal Medicine Hematology & Oncology; Visit Provider Internal Medicine Hematology & Oncology
DX: Z01.818 Encounter for other preprocedural examination (principal); C77.9 Secondary and unspecified malignant neoplasm of lymph node, unspecified; R10.13 Epigastric pain; R59.0 Localized enlarged lymph nodes; Z85.46 Personal history of malignant neoplasm of prostate; Z86.19 Personal history of other infectious and parasitic diseases
CPT/HCPCS: 22999; 36415; 77012; 85025; 85610; 85730; 88172; 88305; 88313; 88341; 88342; 99155; 99156; J7040; A4216; J2405

== ENCOUNTER → 2020-07-06 15:44 | Emergency (ER) | payer MEDICARE, SELFPAY ==
[2020-07-03 08:32] VITALS: BMI 21.2
[2020-07-06 15:47] VITALS: BP 117/77; PULSE 88; PULSE 92; RESP 17; TEMP 35.9; O2SAT 96; O2SAT 97; BMI 20.8
--- NOTE | 2020-07-06 16:55 | ED.VIS.GEN ---
History of Present Illness Chief Complaint: Dizziness Detail of Chief Complaint: unsure Informant: Patient Narrative: Patient was sent in by his PCP for pain control, IV fluids, apparently has had poor appetite. Recently diagnosed with an abdominal mass in his portal hepatic system, had a biopsy recently. When I first evaluated the patient, introduced myself and he asked if I had spoken with Dr. Gold, which I had not but he had spoken with one of my colleagues earlier in the day who left a note that I had not yet seen. After telling the patient that I had not spoken with him, he kindly said that he was leaving and asked me to have a nice day. Past Medical History - Allergies and Home Meds Allergies/Adverse Reactions: Allergies No Known Allergies Allergy (Verified 07/06/20 15:46) Primary Care Physician: Gricelda Rose MD [Primary Care Provider] - Surgical History: no surgical history Smoking Status: Current every day smoker Review of Systems ROS: Unable to Obtain Physical Exam Vital Signs/Narrative: Vital Signs Temp Pulse Resp BP Pulse Ox 07/06/20 15:47 96.7 F L 88 17 117/77 97 General: No Acute Distress - Well-appearing. Sitting on the bed, stood up on his own accord walks down the farias without any difficulty. Respiratory: No distress Neurological: Alert, Oriented x3, Cranial nerves II-XII grossly intact, Normal Strength, Normal Sensation, Normal Gait, - - nml speech. Diagnostic/Tx/Re-eval - Medical Decision Making I was not given a chance to evaluate this patient. He is in no distress, but he stood up and eloped immediately. ED Disposition - Plan for ED Patient: Referrals: Gricelda Rose MD [Primary Care Provider] -
== END ==
PROVIDERS: PCP Internal Medicine
DX: Z53.29 Procedure and treatment not carried out because of patient's decision for other reasons (principal); F17.200 Nicotine dependence, unspecified, uncomplicated

== ENCOUNTER 2020-07-07 12:47 | Emergency (ER) | payer MEDICARE, SELFPAY ==
[2020-07-07 11:41] VITALS: BMI 20.9
[2020-07-07 12:48] VITALS: BP 143/97; PULSE 76; RESP 15; TEMP 36; O2SAT 100; BMI 21.0
--- NOTE | 2020-07-07 13:18 | CT_ITS ---
STUDY: CT ABDOMEN AND PELVIS WITH CONTRAST REASON FOR EXAM: Male, 65 years old. ABD PAIN, JAUNDICE--KNOWN MASS EPIGASTRIC AREA RADIATION DOSAGE (If Supplied By Facility): CTDIvol = ( 8.02 ) mGy, DLP = ( 307.10 ) mGycm TECHNIQUE: Transaxial images were obtained from the dome of the diaphragm to the symphysis pubis without oral contrast. IV 100mL Isovue-300 was administered. Sagittal and coronal images were reconstructed. Individualized dose optimization techniques were used for this CT. COMPARISON: None. FINDINGS: The visualized lung bases are unremarkable. The visualized portions of the heart are within normal limits. Since prior examination, there now is evidence of the central intrahepatic biliary ductal dilatation more prominent in the left hepatic lobe. The previously seen mass lesion in the region of the herman hepatis as well as the para-aortic and peripancreatic region has progressed. There is encasement of the celiac artery branches as well as the superior mesenteric artery branches. There is narrowing of the left renal vein as it enters the inferior vena cava. The gallbladder is contracted. Mild degree of gallbladder wall thickening. Normal spleen. Normal pancreas. Normal bilateral adrenal glands. Normal right kidney. Normal left kidney. There is thickening of the gastric mucosa although the stomach is not adequately distended. Normal small intestine. There are multiple colonic diverticula consistent with diverticulosis. The appendix is visualized and appears normal. There is diffuse atherosclerotic calcification of the abdominal aorta, without a demonstrated aneurysm. Normal inferior vena cava. There is borderline retroperitoneal lymphadenopathy with enlarged nodes no greater than 10mm in the short axis diameter. Normal urinary bladder. Normal abdominal wall. There are degenerative changes of the visualized lumbar spine. CT/Abdomen/Pelvis W IV Cont ONLY IMPRESSION: Progressive enlargement of the epigastric mass as well as the periportal mass as described. There now is evidence of intrahepatic biliary ductal dilatation more prominent in the left hepatic ducts. Electronically Signed: Adriano Martin, at 14:15 EDT , Service support ,
--- NOTE | 2020-07-07 13:20 | ED.DCSUM_ITS ---
- ER Visit Summary Date of Service: 07/07/20 Chief Complaint: [Jaundice] History of Present Illness: The patient is a 65 M [presents to the emergency department with complaint of being jaundiced that was noticed by his oncologist today. Patient currently being treated for remote history of prostate cancer and recently was found to have a soft tissue mass in his upper abdomen that was recently biopsied 4 days ago. Patient has some mild abdominal discomfort. He said no fever. Denies vomiting. Denies diarrhea. Patient also with history of hepatitis C that was treated by infectious disease specialist. Patient denies any COVID-19 exposures. Patient has had prior appendectomy.] Physical Examination: [HEENT-PERRLA, EOMI. Cranial nerves II through XII grossly intact. TMs clear. Mucous membranes moist. No adenopathy. Patient does have scleral icterus. Cardiovascular-regular rate and rhythm without murmur or ectopy Lungs-clear to auscultation, chest wall stable without crepitus or subcu emphysema Abdomen-normoactive bowel sounds, soft, nontender, no rebound or rigidity, no peritoneal signs. Skin exam-patient has diffuse jaundice noted on his extremities and trunk. Extremities-intact ?4, normal range of motion, normal pulses, atraumatic] Test Results: [CBC with differential obtained showed a white of 6.4, hemoglobin 13, hematocrit 39, placed 200. Chemistries unremarkable. Total bilirubin obtained was 7.0, alk phos was 271, ALT was 299, AST 147, lipase 79. CT scan of the abdomen pelvis read by radiology has increased in size of epigastric mass with intrahepatic biliary ductal dilatation.] Emergency Department Course and Treatment: [ Established on arrival. Case was discussed with patient as well as Dr. Panda Ba who asked that we transfer patient to tertiary care center for possible ERCP and decompression of the biliary ducts. Patient would like to go to the [facility]. I discussed case with surgeon on-call at [facility] who asked that we transfer patient to his facility but would prefer if medicine admitted the patient. I spoke with the medicine [facility] who accepted transfer of patient however they have no beds available at this time and they were unsure how long the transfer would take. Patient agreed that he would be amenable to transfer to [facility] if beds were available. Patient was accepted at [facility] and will be transferred to their facility instead of [facility].] Treatment Plan: [Transfer to [facility]] Disposition: [Transfer] Impression: [Abdominal mass Biliary obstruction secondary to abdominal mass Jaundice] This note was generated with [employer] dictation software. It may contain incorrect words, spelling, and punctuation that were not noted in review of the chart prior to signing ED Disposition - Plan for ED Patient: Referrals: Gricelda Rose MD [Primary Care Provider] -
[2020-07-07 13:41] LABS: Absolute Lymphocyte Count 1.11 X10^3/uL (0.83-4.51); Absolute Neutrophil Count 4.3 X10^3/uL (2.0-7.7); Basophil# 0.04 X10^3/uL; Basophil% 0.6 % (0-1); Eosinophil# 0.32 X10^3/uL; Hematocrit 39.1 % (40-54); Hemoglobin 13.1 g/dL (13.0-16.5); Lymphocyte # 1.11 X10^3/ul (4.0); Lymphocyte % 17.3 % (19-41); Mean Corp Hgb Conc 33.5 g/dL (32-36); Mean Corpuscular Hgb 31.5 pg (27.0-32.0); Mean Platelet Vol. 10.5 fl (6.2-12.0); Monocyte# 0.63 X10^3/uL; Monocyte% 9.8 % (0-10); NRBC Flagged by Analyzer 0 % (0-5); Neutrophil # 4.31 X10^3/uL (2.7-7.7); Platelet Count 200 K/mm3 (150-450); RBC Distribution Width CV 13.5 % (11.6-14.6); RBC Distribution Width SD 46.6 fl (35.1-43.9); Red Blood Count 4.16 M/mm3 (4.6-6.2); White Blood Count 6.4 K/mm3 (4.4-11.0)
[2020-07-07 14:01] LABS: AST(SGOT) 147 U/L (15-37); Alanine Aminotransfer ALT/SGPT 299 U/L (16-61); Albumin, Serum 3.4 g/dL (3.2-5.0); Alkaline Phosphatase 271 U/L (45-117); Anion Gap 6 (5-15); BUN 11 mg/dL (7-18); BUN/Creat Ratio 10.3 RATIO (10-20); Calcium,Total 9.9 mg/dL (8.5-10.1); Chloride 105 mmol/L (98-107); Creatinine, Serum 1.07 mg/dL (0.70-1.30); EST Glomerular Filtration Rate 73 mL/min (>60); Est Glom Filt Rate - Afr Amer 89 mL/min (>60); Estimated Creatinine Clearance 60.42 ml/min; Globulin 3.4 g/dL (2.2-4.2); Glucose 94 mg/dL (74-106); Lipase 79 U/L (73-393); Potassium 3.4 mmol/L (3.5-5.1); Protein, Total 6.8 g/dL (6.4-8.2); Sodium Level 141 mmol/L (136-145)
[2020-07-07] MEDS: 0.9% Normal Saline 1,000 ML 125 ML IV (14:09)
[2020-07-07 14:47] VITALS: BP 135/72; PULSE 71; RESP 18; O2SAT 98
--- NOTE | 2020-07-07 15:10 | NURSING ---
FAXED FACESHEET TO [facility]
--- NOTE | 2020-07-07 15:56 | NURSING ---
CALLED [facility], BEDS ARE BACKED UP. NO BEDS AVAILABLE
--- NOTE | 2020-07-07 15:56 | NURSING ---
CALLED [facility] [phone], TALKED TO CAMERON. SHE HAS [address] EAST TALKED TO HER
[2020-07-07 16:00] VITALS: BP 144/79; PULSE 79; RESP 18; O2SAT 99
--- NOTE | 2020-07-07 17:04 | NURSING ---
[place] [id number] NURSE TO NURSE [phone]
--- NOTE | 2020-07-07 17:24 | NURSING ---
[address] CALLED. ETA IS 60 MIN
[2020-07-07 17:57] VITALS: BP 159/63; PULSE 85; RESP 18; TEMP 36.7; O2SAT 100
[2020-07-07 18:00] VITALS: RESP 16
== END 2020-07-07 19:40 | disposition short-term general hospital (02) ==
PROVIDERS: Emergency Provider Emergency Medicine; PCP Internal Medicine
DX: R19.00 Intra-abdominal and pelvic swelling, mass and lump, unspecified site (principal); K83.1 Obstruction of bile duct; R17 Unspecified jaundice; F17.200 Nicotine dependence, unspecified, uncomplicated
CPT/HCPCS: 36415; 74177; 80053; 82248; 83615; 83690; 84550; 85025; 96360; 96361; 99283; J7030; Q9967; A4216

== ENCOUNTER → 2020-07-28 15:27 | Outpatient (CLI) | payer MEDICARE, SELFPAY ==
[2020-07-07 12:48] VITALS: BMI 21.0
--- NOTE | 2020-07-28 15:00 | PET_ITS ---
EXAMINATION: FDG PET/CT INDICATIONS: A 65-year-old male with reported history of lymphoma presenting for initial staging examination status-post initial induction cycle of cytotoxic therapy. COMPARISON EXAMINATION: None available INDEX LESION SIZE LUGANO SCORE SUV INTERPRETATION Mid abdominal retroperitoneum pancreatic head mass 28.6 x 24.8-mm (frame 124) 4 2.6 (max) Fulfills quantitative criteria for viable neoplasm TECHNIQUE: Following the intravenous administration of 13.11 mCi of F-18 deoxyglucose via the left arm PICC line, multiplanar image acquisitions of the neck, chest, abdomen and pelvis to level of mid thigh, obtained at one hour post radiopharmaceutical administration contemporaneously interpreted with the current CT of the neck, chest, abdomen and pelvis to level of mid thigh, dated 07/28/2020 via coregistration reveal: SERUM GLUCOSE LEVEL: 98 mg/dl. HEIGHT: 68 inches. WEIGHT: 135 lbs. FINDINGS: 1. There is an increase in FDG distribution noted in the right upper paramedian abdominal retroperitoneum in the region of the pancreatic head-apparent mass. The calculated maximal standard uptake value is 2.6. The Lugano Deauville score is 4. The maximal axial diameter of the corresponding metabolic, morphologic abnormality on review of CT of the abdomen dated 07/28/2020 is 28.6-mm (transverse) x 24.8-mm (AP). 2. Normal physiologic distribution of the radiopharmaceutical is apparent in the hepatic (2.0) and splenic parenchyma, both renal units, bladder and visualized intestinal tract. There is homogenous enhanced glucose concentration evidenced in the visualized appendicular and axial skeletal structures. The visualized portion of the cerebral cortex demonstrate symmetric and preserved glucose metabolism. Prominent radiopharmaceutical concentration is defined in the left ventricular myocardium commensurate with the [place]. Facilitated uptake is visualized in the ascending and descending thoracic aorta. Facilitated fluorine labeled glucose uptake extends from the bilateral renal pelvis to the distal ureter commensurate with physiologic radiopharmaceutical concentration. Pertinent CT findings are as follows: CHEST: There is atherosclerotic calcification defined in the thoracic aorta without evidence of dilatation-aneurysm formation. Coronary arterial calcification is observed. PICC line placement is defined. There are no parenchymal densities-nodules defined in the right and left hemithorax with discernible quantitatively significant increased FDG uptake. A linear non-calcified density noted in the left lower anterolateral lung field reveals no evidence of quantitatively significant increased tracer uptake. ABDOMEN AND PELVIS: There is atherosclerotic calcification defined in the abdominal aorta without evidence of dilatation-aneurysm formation. Pelvic arterial calcification is defined. Colonic diverticulosis is noted without evidence of diverticulitis. Postsurgical changes are manifest in the bilateral lower hemipelvis. A small fat containing left inguinal hernia is noted. Right and left inguinal soft tissue densities with fatty hilus are ametabolic. SKELETAL: Degenerative changes are noted in the cervical, thoracic and lumbar spine. PET/PET/CT Tumor Base -Thigh Init IMPRESSION: 1. ABNORMAL EXAMINATION INDICATIVE OF MALIGNANT VIABLE NEOPLASM. 2. Increased glucose concentration manifest in the mid abdominal retroperitoneum in the region of the pancreatic head apparent mass formation fulfills quantitative criteria for viable neoplasm. (Keaton et al, Journal of Clinical Oncology 32:3059, 2014). 3. Homogeneous increased radiopharmaceutical concentration noted in the visualized appendicular and axial skeletal structures is commensurate with the hematopoietic response to chemotherapeutic intervention. (Tila et al, Journal of Clinical Oncology 16:173, 1998). Electronic Signature Beck Hernandez D.O. Accurate Quantification of SUVs for this report are calculated using the exclusive [employer]. Electronically Signed: Beck Hernandez DO at 10:26 EST Tel , Service support ,
== END ==
PROVIDERS: PCP Internal Medicine; Referring Provider Internal Medicine Hematology & Oncology; Visit Provider Internal Medicine Hematology & Oncology
DX: C83.33 Diffuse large B-cell lymphoma, intra-abdominal lymph nodes (principal)
CPT/HCPCS: 78815; A9552

== ENCOUNTER 2020-09-01 16:22 | Inpatient (IN) | payer MEDICARE, SELFPAY ==
[2020-09-01 16:22] VITALS: BP 109/56; PULSE 77; RESP 16; TEMP 36.4; O2SAT 98; BMI 19.8
--- NOTE | 2020-09-01 16:48 | CT_ITS ---
STUDY: CT ABDOMEN AND PELVIS WITH CONTRAST REASON FOR EXAM: Male, 65 years old. LLQ PAIN LOW WBC. H/O PROSTATE CA AND LYMPHOMA. RADIATION DOSAGE (If Supplied By Facility): CTDIvol = ( 7.38 ) mGy, DLP = ( 409.65 ) mGycm TECHNIQUE: Transaxial images were obtained from the dome of the diaphragm to the symphysis pubis without oral contrast. Oral and amp; IV Gastrografin and amp; 100mL Isovue-300 was administered. Sagittal and coronal images were reconstructed. Individualized dose optimization techniques were used for this CT. COMPARISON: 07/07/2020 CT abdomen and pelvis FINDINGS: The visualized lung bases are unremarkable. The visualized portions of the heart are within normal limits. Normal liver. Dilated intra and extrahepatic bile ducts. Normal spleen. Normal pancreas. Previously noted mass in the herman hepatis is no longer evident. Normal bilateral adrenal glands. Normal right kidney. Normal left kidney. Normal visualized stomach. Oral contrast noted in the small bowel. There is diverticulosis, with thickening of the colon wall, and pericolonic inflammation changes consistent with acute diverticulitis. Appendix is not identified. There is diffuse atherosclerotic calcification of the abdominal aorta with elongation and tortuosity, but without a demonstrated aneurysm. Normal inferior vena cava. Normal retroperitoneum. Normal urinary bladder. Surgical clips bilateral inguinal regions. Fat-containing inguinal hernia on the left. Normal abdominal wall. Mild scoliosis and L2-[address]/Abdomen/Pelvis WITH Contrast IMPRESSION: Acute sigmoid diverticulitis without evidence of perforation or abscess. Interval resolution of periaortic mass. Electronically Signed: Milton Ruiz MD at 19:33 EST , Service support ,
--- NOTE | 2020-09-01 16:50 | ED.VIS.GEN ---
History of Present Illness Chief Complaint: Abd Pain Narrative: This patient is a 65-year-old male who was sent in by his oncologist due to concern for possible diverticulitis. Patient is difficult to get a history from, he is a poor informant. When asked what brought him to the emergency department he stated my doctor sent me in. When asked why he was sent in he states they told me to tell you I am on chemotherapy and to check me out. When asked what his symptoms were he states well I don't know what it is. Eventually I was able to obtain that the patient has had left lower quadrant abdominal pain for about 4 to 5 days. He is unable to characterize the pain. He has no pain at rest but with movement it is about a 4 out of 10. He thought he was constipated. He took milk of magnesia. He did have a few soft bowel movements today which could have been due to the laxative. He denies fevers nausea or vomiting. 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 His last chemotherapy treatment he thinks was 1 week ago. He complains of dizziness. He felt like he was going to pass out but did not actually have a syncopal episode. Past Medical History - Allergies and Home Meds Allergies/Adverse Reactions: Allergies No Known Allergies Allergy (Verified 09/01/20 16:25) Primary Care Physician: Gricelda Rose MD [STAFF PHYSICIAN] - Past Medical History: - - B-cell lymphoma Surgical History: no surgical history Smoking Status: Current every day smoker Review of Systems All systems negative except as indicated General: Denies: Fever Eyes: Denies: Visual changes - bilaterally ENT: Denies: Bilateral ear pain Cardiovascular: Denies: Chest pain Respiratory: Denies: Dyspnea Gastrointestinal: Reports: Abdominal pain, Diarrhea, Constipation. Denies: Nausea, Vomiting Musculoskeletal: Denies: Myalgias, Arthralgias Skin: Denies: Rash Neurological: Denies: Headache Allergy: Denies: Uticaria Physical Exam Vital Signs/Narrative: Vital Signs Temp Pulse Resp BP Pulse Ox 09/01/20 16:22 97.5 F L 77 16 109/56 L 98 Inital Vital Signs reviewed: Yes General: Well nourished Head: Normocephalic Eyes: EOMI ENT: Moist mucous membranes Neck: Supple Cardiovascular: Regular rate, Regular rhythm Respiratory: No distress, CTA bilaterally Abdomen: Soft, Tender - Left lower quadrant abdominal tenderness without guarding without rebound Skin: Normal color Neurological: Alert Psychological: Normal affect Diagnostic/Tx/Re-eval Impressions Abdomen/Pelvis CT 09/01/20 16:48 IMPRESSION: Acute sigmoid diverticulitis without evidence of perforation or abscess. Interval resolution of periaortic mass. Electronically Signed: Milton Ruiz MD at 19:33 EST , Service support , 09/01/20 16:48 Abdomen/Pelvis WITH Contrast [CT] Stat Laboratory Results 09/01/20 09/01/20 09/01/20 17:00 17:00 17:23 WBC 0.5 L* RBC 2.99 L Hgb 9.4 L Hct 28.1 L MCV 94.0 MCH 31.4 MCHC 33.5 RDW Std Deviation 51.1 H RDW Coeff of Nir 14.8 H Plt Count 91 L MPV 10.0 Immature Gran % (Auto) 0.000 Neut % (Auto) 17.1 L Lymph % (Auto) 57.4 H Baxter % (Auto) 17.0 H Eos % (Auto) 6.4 H Baso % (Auto) 2.1 H Absolute Neuts (auto) 0.1 L Absolute Lymphs (auto) 0.27 L Nucleated RBC % 0 Diff Path Review May foll Platelet Estimate MOD DEC Sodium 137 Potassium 3.7 Chloride 104 Carbon Dioxide 30.0 Anion Gap 3 L BUN 16 Creatinine 0.81 Estim Creat Clear Calc 74.82 Est GFR (MDRD) Af Amer 123 Est GFR (MDRD) Non-Af 102 BUN/Creatinine Ratio 19.8 Glucose 111 H Calcium 8.5 Total Bilirubin 1.60 H AST 5 L ALT 18 Alkaline Phosphatase 91 Total Protein 6.2 L Albumin 3.1 L Globulin 3.1 Albumin/Globulin Ratio 1.0 Lipase 23 L Urine Color Mona Urine Clarity Clear Urine pH 6.5 Ur Specific [place] 1.015 Urine Protein 30 H Urine Glucose (UA) Normal Urine Ketones 5 H Urine Occult Blood 10 H Urine Nitrite Positive H Urine Bilirubin 1 H Urine Urobilinogen 1 H Ur Leukocyte Esterase 25 H Urine RBC 0 SEEN Urine WBC 0-5 SEEN Ur Squamous Epith Cells 0 SEEN Urine Bacteria 0 SEEN Hyaline Casts 10-25 SEEN Urine Mucus 2+ - Medical Decision Making Laboratory studies are notable for white blood cell count of 0.5. Absolute neutrophil count 100. Patient is afebrile. EKG shows normal sinus rhythm at a rate of 67 no acute ischemic changes. CT of the abdomen and pelvis shows acute sigmoid diverticulitis without perforation or abscess. I spoke to Dr. Shah. Given the patient's neutropenia we felt with IV antibiotics and hospitalization indicated. Patient was given IV Zosyn and will be discussed with hospitalist and admitted. ED Disposition - Plan for ED Patient: Disposition: Acute Care Hospital [facility] Diagnosis: Diverticulitis Referrals: Gricelda Rose MD [STAFF PHYSICIAN] -
[2020-09-01 16:59] VITALS: BP 103/56; BP 92/71; PULSE 75; PULSE 80
[2020-09-01] MEDS: 0.9% Normal Saline 1,000 ML 999 ML IV (17:06)
[2020-09-01 17:22] LABS: Absolute Lymphocyte Count 0.27 X10^3/uL (0.83-4.51); Absolute Neutrophil Count 0.1 X10^3/uL (2.0-7.7); Basophil# 0.01 X10^3/uL; Basophil% 2.1 % (0-1); Eosinophil# 0.03 X10^3/uL; Eosinophils% 6.4 % (0-5); Hematocrit 28.1 % (40-54); Hemoglobin 9.4 g/dL (13.0-16.5); Lymphocyte # 0.27 X10^3/ul (4.0); Lymphocyte % 57.4 % (19-41); Mean Corp Hgb Conc 33.5 g/dL (32-36); Mean Corpuscular Hgb 31.4 pg (27.0-32.0); Monocyte# 0.08 X10^3/uL; NRBC Flagged by Analyzer 0 % (0-5); Neutrophil # 0.08 X10^3/uL (2.7-7.7); Neutrophil % 17.1 % (47-70); POSITIVE COUNT YES; POSITIVE DIFFERENTIAL YES; POSITIVE MORPHOLOGY YES; Platelet Count 91 K/mm3 (150-450); RBC Distribution Width CV 14.8 % (11.6-14.6); RBC Distribution Width SD 51.1 fl (35.1-43.9); Red Blood Count 2.99 M/mm3 (4.6-6.2); White Blood Count 0.5 K/mm3 (4.4-11.0)
[2020-09-01 17:27] LABS: Differential Indicated SCAN CRITERIA MET
[2020-09-01 17:28] LABS: Bacteria 0 SEEN /hpf (None Seen); Red Blood Cells-Urine 0 SEEN /hpf (0-5); Squamous Epithelial Cells - UA 0 SEEN /hpf (0-5)
[2020-09-01 17:34] LABS: Color, Urine Amber (Yellow); Glucose, Dipstick Normal (Normal); Ketone-Dipstick 5 mg/dl (Negative); Leukocyte Esterase-Dipstick 25 /ul (Negative); Nitrite-Dipstick Positive (Negative); Occult Blood-Urine 10 /ul (Negative); Protein-Dipstick 30 mg/dl (Negative); Specific Gravity, Urine 1.015 (1.002-1.030); Urine Clarity Clear (Clear); Urine Urobilinogen 1 mg/dl (Normal); Urine pH 6.5 (5.0 - 8.0)
[2020-09-01 17:35] LABS: Urine Bilirubin Dipstick 1 mg/dL (Negative)
[2020-09-01 17:39] LABS: AST(SGOT) 5 U/L (15-37); Alanine Aminotransfer ALT/SGPT 18 U/L (16-61); Albumin, Serum 3.1 g/dL (3.2-5.0); Alkaline Phosphatase 91 U/L (45-117); Anion Gap 3 (5-15); BUN 16 mg/dL (7-18); BUN/Creat Ratio 19.8 RATIO (10-20); Calcium,Total 8.5 mg/dL (8.5-10.1); Chloride 104 mmol/L (98-107); Creatinine, Serum 0.81 mg/dL (0.70-1.30); EST Glomerular Filtration Rate 102 mL/min (>60); Est Glom Filt Rate - Afr Amer 123 mL/min (>60); Estimated Creatinine Clearance 74.82 ml/min; Globulin 3.1 g/dL (2.2-4.2); Glucose 111 mg/dL (74-106); Lipase 23 U/L (73-393); Potassium 3.7 mmol/L (3.5-5.1); Protein, Total 6.2 g/dL (6.4-8.2); Sodium Level 137 mmol/L (136-145)
[2020-09-01 17:50] LABS: Platelet Estimate MOD DEC (ADEQ)
[2020-09-01 18:20] LABS: Hyaline Cast 10-25 SEEN /lpf (0-5); Mucous, Urine 2+ /hpf (<or=2+); White Blood Cells 0-5 SEEN /hpf (0-5)
[2020-09-01 18:45] VITALS: BP 102/53; PULSE 71; RESP 18; O2SAT 99
[2020-09-01 20:38] VITALS: BP 165/77; PULSE 85; RESP 18; TEMP 36.3; O2SAT 99
--- NOTE | 2020-09-01 21:25 | PCM.HP.STD ---
Problem List (1) COPD (chronic obstructive pulmonary disease) Status: Chronic (2) Diverticulitis Status: Acute (3) Burkitts lymphoma Status: Chronic (4) Prostate cancer Status: Chronic (5) Hepatitis C virus infection Status: Chronic History of Present Illness Date of Admission: 09/01/20 Chief Complaint: Abdominal pain. The patient is a 65 year old M with past medical history as mentioned above presented to the emergency room because of abdominal pain. His symptoms started around 4 to 5 days ago with abdominal pain, left lower quadrant abdominal pain, dull aching pain, constant, 4 out of 10 in severity, not radiating, no associated symptoms and no aggravating or relieving factors. He denies fever or chills. He denied nausea or vomiting. He reported loose stool, no blood. He had recent diagnosis of high-grade B-cell lymphoma that was diagnosed couple of months ago and he received his second cycle of chemotherapy 1 week ago and also received Neulasta injection the day after he received the chemotherapy. In the emergency department, he was afebrile, vital signs were stable, pulse ox was 98% on room air. Routine blood work was remarkable for severe leukopenia, anemia, thrombocytopenia and neutropenia. LFT and lipase were unremarkable. Urinalysis revealed cloudy urine, positive for nitrite, there was 25 leukocyte esterase, 0-5 WBCs and no bacteria seen. EKG revealed normal sinus rhythm without evidence of acute ischemic changes. CT scan abdomen and pelvis with contrast revealed acute sigmoid diverticulitis without evidence of perforation or abscess formation. Patient is being admitted for acute sigmoid diverticulitis and pancytopenia. Past Medical History Past Medical History (Chronic Problems): Chronic Problems (Last Updated 09/01/20 @ 21:[address] 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 Elyse Jaramillo MD) Burkitts lymphoma (Chronic) C83.70 Prostate cancer (Chronic) C61 Regional lymph node metastasis present (Chronic) C77.9 Rising PSA following treatment for malignant neoplasm of prostate (Chronic) R97.21 Osteopenia due to cancer therapy (Chronic) M85.80 Hepatitis C virus infection (Chronic) B19.20 COPD (chronic obstructive pulmonary disease) J44.9 Epigastric pain R10.13 Fistula L98.8 Hemorrhoids K64.9 Osteopenia M85.80 Allergies No Known Allergies Allergy (Verified 09/01/20 16:25) Home Medications: Ambulatory Orders Medication Instructions Recorded Budesonide/Formoterol 160/4.5 2 puff INHALATION BID 06/24/20 [Symbicort 160/4.5 Mcg Inhaler (SP)] Allopurinol 300 mg PO DAILY 09/01/20 Fentanyl 25 mcg TOPICAL Q72H 09/01/20 Oxycodone HCl/Acetaminophen 1 ea PO BID PRN PRN 09/01/20 [Oxycodone-Acetaminophen 5-325] Surgical History: Surgical History (Last Reviewed 07/07/20 @ 11:34 by Kathia Ramires) History of appendectomy Z90.49 History of prostatectomy Z90.79 2012 History of tonsillectomy Z90.89 Surgical History: appendectomy, tonsillectomy, - - Prostatectomy. Psychiatric History: No pertinent psych hx Lives: Spouse/ Significant Other Smoking Status: Former smoker Alcohol: None Drugs: None - *Family History Maternal Family History: Family History (Last Reviewed 07/07/20 @ 11:34 by Kathia Ramires) Father CVA (cerebral vascular accident) Heart disease Mother CVA (cerebral vascular accident) Grandfather Heart disease Grandmother Heart disease Review of Systems Constitutional: Reports: Anorexia. Denies: Chills, Fever, Weakness, Fatigue Eyes: Denies: Blurred vision, Double vision, Drainage, Redness HEENT: Denies: Difficulty Hearing, Dysphasia, Ear Pain, Eye Pain, Nasal Congestion, Sore Throat Cardiovascular: Denies: Chest Pain, Claudication, Chest Pressure, Chest Tightness, Edema, Palpitations, Syncope Respiratory: Denies: Cough, Hemoptysis, Pleuritic Pain, Shortness of Breath, Sputum production, Wheezing Gastrointestinal: Reports: Abdominal Pain, Diarrhea. Denies: Nausea, Vomiting Genitourinary: Denies: Dysuria, Frequency, Hematuria Musculoskeletal: Denies: Arm Pain, Back Pain, Foot Pain Skin: Denies: Dryness, Rash Neurological: Denies: Balance problems, Blurred vision, Double vision, Change in Speech, Headaches, Incoordination Psychiatric: Denies: Anxiety, Depression Endocrine: Denies: Change in Body Habitus, Polydipsia, Polyuria VTE Information - Inpt Only VTE Present on Admission: No VTE Mechan Device Prophylaxis: None VTE Pharm Prophylaxis ordered?: No Patient Problems: Active and Suspected Problems (Last Updated 09/01/20 @ 21:[address] Elyse Jaramillo MD) Diverticulitis (Acute) - Physical Exam Vitals/I&O's: Vital Signs Temp Pulse Resp BP Pulse Ox 97.3 F L 85 18 165/77 H 99 09/01/20 20:38 09/01/20 20:38 09/01/20 20:38 09/01/20 20:38 09/01/20 20:38 Oxygen Delivery Method Room Air Weight: 130 lb Body Mass Index (BMI) 19.8 Intake and Output for Last 24 Hours 08/30/20 08/31/20 09/01/20 23:59 23:59 23:59 Intake Total 1000 / 1000 Balance 1000 / 1000 General: Alert, Oriented x3, Cooperative, No apparent distress HEENT: Atraumatic, PERRLA, EOMI, Normocephalic Oral: Moist Mucosa, No Gingival or Mucosal Lesions/ Ulcerations Neck: Supple, No JVD, Negative Carotid Bruits, Trachea Midline, Thyroid Normal Size and Texture Lungs: Clear to auscultation, Normal air movement, No rhonchi, No wheeze, No rales Cardiovascular: Regular rate, Regular Rhythm, Normal S1, Normal S2, PMI Normal Abdomen: Bowel Sounds Present, Soft, Non Tender, Non-Distended, No Hepato-splenomegaly Extremities: No clubbing, No cyanosis, No edema Skin: No rashes, No breakdown Lymphatic: No Cervical, Supraclavicular, or Inguinal Adenopathy Neurological: Cranial nerves II-XII grossly intact, Motor Exam 5/5 strength throughout Psych/Mental Status: Normal Affect, Appropriate, Alert and oriented to time, place, person, mood and affect Laboratory Results 09/01/20 17:00: WBC 0.5 L*, RBC 2.99 L, Hgb 9.4 L, Hct 28.1 L, MCV 94.0, MCH 31.4, MCHC 33.5, RDW Std Deviation 51.1 H, RDW Coeff of Nir 14.8 H, Plt Count 91 L, MPV 10.0, Immature Gran % (Auto) 0.000, Neut % (Auto) 17.1 L, Lymph % (Auto) 57.4 H, [place] % (Auto) 17.0 H, Eos % (Auto) 6.4 H, Baso % (Auto) 2.1 H, Absolute Neuts (auto) 0.1 L, Absolute Lymphs (auto) 0.27 L, Nucleated RBC % 0, Diff Path Review January, Platelet Estimate MOD 09/01/20 17:00: Sodium 137, Potassium 3.7, Chloride 104, Carbon Dioxide 30.0, Anion Gap 3 L, BUN 16, Creatinine 0.81, Estim Creat Clear Calc 74.82, Est GFR (MDRD) Af Amer 123, Est GFR (MDRD) Non-Af 102, BUN/Creatinine Ratio 19.8, Glucose 111 H, Calcium 8.5, Total Bilirubin 1.60 H, AST 5 L, ALT 18, Alkaline Phosphatase 91, Total Protein 6.2 L, Albumin 3.1 L, Globulin 3.1, Albumin/Globulin Ratio 1.0, Lipase 23 L 09/01/20 17:23: Urine Color Mona, Urine Clarity Clear, Urine pH 6.5, Ur Specific [place] 1.015, Urine Protein 30 H, Urine Glucose (UA) Normal, Urine Ketones 5 H, Urine Occult Blood 10 H, Urine Nitrite Positive H, Urine Bilirubin 1 H, Urine Urobilinogen 1 H, Ur Leukocyte Esterase 25 H, Urine RBC 0 SEEN, Urine WBC 0-5 SEEN, Ur Squamous Epith Cells 0 SEEN, Urine Bacteria 0 SEEN, Hyaline Casts 10-25 SEEN, Urine Mucus 2+ Clinical Impression(s) from Imaging Studies Abdomen/Pelvis CT 09/01/20 16:48 IMPRESSION: Acute sigmoid diverticulitis without evidence of perforation or abscess. Interval resolution of periaortic mass. Electronically Signed: Milton Ruiz MD at 19:33 EST , Service support , Assessment/Plan All Active Problems (Last Updated 09/01/20 @ 21:[address] Elyse Jaramillo MD) Diverticulitis (Acute) This is a 65 years old male patient presented to the emergency room because of left lower quadrant abdominal pain and was found to have acute sigmoid diverticulitis and pancytopenia. #1 acute sigmoid diverticulitis: CT scan abdomen pelvis reviewed. Vitals are stable. Plan: Admit to [facility], clear liquids, IV fluids, IV morphine as needed, IV antiemetics as needed, start IV Zosyn, repeat CBC and BMP tomorrow morning. #2 pancytopenia/severe neutropenia: It is acute, secondary to chemotherapy. WBC is 500. Hemoglobin is 9.4 and this is acute. Platelet count is 91,000. Absolute neutrophil count is only 100. At this time, patient is afebrile, no active bleeding. Patient received Neulasta injection 6 days ago. Plan: Start Granix subcu daily, neutropenic precautions, repeat CBC tomorrow morning. #3 high-grade B-cell lymphoma: This was recent diagnosis 2 months ago, currently on chemotherapy. Last chemo was 1 week ago, patient received Neulasta injection 1 day after chemotherapy. He follows up with Dr. Brown. Plan as above. #4 history of prostate cancer: Status post radical prostatectomy and radiation back in 2011, stable in remission. #5 COPD: Currently, he is on room air. Plan for albuterol as needed, DuoNeb every 6 hours. #6 DVT prophylaxis: SCDs, no chemical prophylaxis because of thrombocytopenia. This note was generated with [employer] software. It may contain incorrect words, spelling, and punctuation that were not noted in checking the note before signing. Inpatient E&M: 93344 Init Hosp L3
[2020-09-01 23:10] VITALS: BMI 19.8
[2020-09-01 23:11] VITALS: BP 106/60; PULSE 93; RESP 18; TEMP 37.2; O2SAT 95
[2020-09-02] VITALS (9 sets, daily range): BP systolic 123–140; BP diastolic 52–72; PULSE 76–94; RESP 16–18; TEMP 36.8–37.2; O2SAT 93–98
[2020-09-02] MEDS: 0.9% Saline Lock 10 ML Syringe IV ×2 (01:26→22:07)
[2020-09-02] MEDS: Lactated Ringers 1,000 ML 100 ML IV (01:26)
[2020-09-02 06:36] LABS: Absolute Lymphocyte Count 0.18 X10^3/uL (0.83-4.51); Absolute Neutrophil Count 0.2 X10^3/uL (2.0-7.7); Basophil# 0.01 X10^3/uL; Basophil% 2.1 % (0-1); Eosinophil# 0.01 X10^3/uL; Eosinophils% 2.1 % (0-5); Hematocrit 24.1 % (40-54); Hemoglobin 8.2 g/dL (13.0-16.5); Lymphocyte # 0.18 X10^3/ul (4.0); Lymphocyte % 37.5 % (19-41); Mean Corpuscular Hgb 31.5 pg (27.0-32.0); Mean Corpuscular Volume 92.7 fL (80-94); Mean Platelet Vol. 11.2 fl (6.2-12.0); Monocyte# 0.09 X10^3/uL; Monocyte% 18.8 % (0-10); NRBC Flagged by Analyzer 0 % (0-5); Neutrophil # 0.19 X10^3/uL (2.7-7.7); Neutrophil % 39.5 % (47-70); POSITIVE COUNT YES; POSITIVE DIFFERENTIAL YES; POSITIVE MORPHOLOGY YES; Platelet Count 70 K/mm3 (150-450); RBC Distribution Width CV 14.7 % (11.6-14.6); RBC Distribution Width SD 49.1 fl (35.1-43.9)
[2020-09-02 06:45] LABS: International Normalized Ratio 1.2; Prothrombin Time (Protime)PT. 14.9 SECONDS (11.7-14.9)
[2020-09-02 06:50] LABS: Differential Indicated SCAN CRITERIA MET; White Blood Count 0.5 K/mm3 (4.4-11.0)
[2020-09-02] MEDS: Morphine 2 MG/ML Syringe IV ×4 (06:53→22:07)
[2020-09-02 07:04] LABS: Anion Gap 7 (5-15); BUN 10 mg/dL (7-18); Calcium,Total 7.9 mg/dL (8.5-10.1); Chloride 104 mmol/L (98-107); Creatinine, Serum 0.56 mg/dL (0.70-1.30); EST Glomerular Filtration Rate 156 mL/min (>60); Est Glom Filt Rate - Afr Amer 189 mL/min (>60); Estimated Creatinine Clearance 60.72 ml/min; Glucose 97 mg/dL (74-106); Potassium 3.3 mmol/L (3.5-5.1); Sodium Level 136 mmol/L (136-145)
[2020-09-02] MEDS: Ensure Clear 120 ML Liquid PO (08:23)
[2020-09-02] MEDS: 0.9% Normal Saline 1,000 ML 100 ML IV ×2 (08:24→22:07)
[2020-09-02] MEDS: fentaNYL 25 MCG Patch TD (08:24)
[2020-09-02] MEDS: Potassium Chloride 10mEq/100mL 10 MEQ/100 ML IV.SOLN. 100 MEQ IV BOLUS ×4 (08:24→12:13)
[2020-09-02] MEDS: TBO-FILGRASTIM 300 MCG/0.5 ML ML SC (08:25)
--- NOTE | 2020-09-02 11:11 | PCM.PN.HOSP ---
Patient Problems: Active and Suspected Problems (Last Updated 09/01/20 @ 21:[address] Elyse Jaramillo MD) Diverticulitis (Acute) Subjective: Feels about the same as when he came in. Still has discomfort on his left lower abdomen. Vitals/I&O's: Vital Signs Temp Pulse Resp BP Pulse Ox 98.3 F 90 18 140/68 H 97 09/02/20 08:25 09/02/20 08:25 09/02/20 08:25 09/02/20 08:25 09/02/20 08:25 Oxygen Delivery Method Room Air Weight: 130 lb 4 oz Body Mass Index (BMI) 19.8 Intake and Output for Last 24 Hours 08/31/20 09/01/20 09/02/20 23:59 23:59 23:59 Intake Total 1100 / 1100 983.34 / 983.34 Balance 1100 / 1100 983.34 / 983.34 General: Alert, Oriented x3, Cooperative, No apparent distress HEENT: Atraumatic, PERRLA, EOMI, Normocephalic Oral: Moist Mucosa Neck: Supple, No JVD Lungs: Clear to auscultation, Normal air movement, No rhonchi, No wheeze, No rales, Diminished Cardiovascular: Regular rate, Regular Rhythm, Normal S1, Normal S2, No murmurs Abdomen: Soft, Non-Distended, No Hepato-splenomegaly, Tender - Left lower quadrant Extremities: No edema, Capillary Refill Less than 3 Seconds Skin: No rashes, No breakdown Neurological: Neuro grossly intact, Sensory exam intact to light touch and pain Psych/Mental Status: Normal Affect, Appropriate Laboratory Results 09/01/20 17:00: WBC 0.5 L*, RBC 2.99 L, Hgb 9.4 L, Hct 28.1 L, MCV 94.0, MCH 31.4, MCHC 33.5, RDW Std Deviation 51.1 H, RDW Coeff of Nir 14.8 H, Plt Count 91 L, MPV 10.0, Immature Gran % (Auto) 0.000, Neut % (Auto) 17.1 L, Lymph % (Auto) 57.4 H, [place]ck[place] % (Auto) 17.0 H, Eos % (Auto) 6.4 H, Baso % (Auto) 2.1 H, Absolute Neuts (auto) 0.1 L, Absolute Lymphs (auto) 0.27 L, Nucleated RBC % 0, Diff Path Review January, Platelet Estimate MOD 09/01/20 17:00: Sodium 137, Potassium 3.7, Chloride 104, Carbon Dioxide 30.0, Anion Gap 3 L, BUN 16, Creatinine 0.81, Estim Creat Clear Calc 74.82, Est GFR (MDRD) Af Amer 123, Est GFR (MDRD) Non-Af 102, BUN/Creatinine Ratio 19.8, Glucose 111 H, Calcium 8.5, Total Bilirubin 1.60 H, AST 5 L, ALT 18, Alkaline Phosphatase 91, Total Protein 6.2 L, Albumin 3.1 L, Globulin 3.1, Albumin/Globulin Ratio 1.0, Lipase 23 L 09/01/20 17:23: Urine Color Mona, Urine Clarity Clear, Urine pH 6.5, Ur Specific [place] 1.015, Urine Protein 30 H, Urine Glucose (UA) Normal, Urine Ketones 5 H, Urine Occult Blood 10 H, Urine Nitrite Positive H, Urine Bilirubin 1 H, Urine Urobilinogen 1 H, Ur Leukocyte Esterase 25 H, Urine RBC 0 SEEN, Urine WBC 0-5 SEEN, Ur Squamous Epith Cells 0 SEEN, Urine Bacteria 0 SEEN, Hyaline Casts 10-25 SEEN, Urine Mucus 2+ 09/02/20 05:55: WBC 0.5 L*, RBC 2.60 L, Hgb 8.2 L, Hct 24.1 L, MCV 92.7, MCH 31.5, MCHC 34.0, RDW Std Deviation 49.1 H, RDW Coeff of Nir 14.7 H, Plt Count 70 L, MPV 11.2, Immature Gran % (Auto) 0.000, Neut % (Auto) 39.5 L, Lymph % (Auto) 37.5, [place] % (Auto) 18.8 H, Eos % (Auto) 2.1, Baso % (Auto) 2.1 H, Absolute Neuts (auto) 0.2 L, Absolute Lymphs (auto) 0.18 L, Nucleated RBC % 0, Diff Path Review January graciela 09/02/20 05:55: PT 14.9, INR 1.2 09/02/20 05:55: Sodium 136, Potassium 3.3 L, Chloride 104, Carbon Dioxide 25.0, Anion Gap 7, BUN 10, Creatinine 0.56 L, Estim Creat Clear Calc 60.72, Est GFR (MDRD) Af Amer 189, Est GFR (MDRD) Non-Af 156, BUN/Creatinine Ratio 18.0, Glucose 97, Calcium 7.9 L Current Medications Acetaminophen (Acetaminophen 325 Mg Tablet) 650 mg PO Q6H PRN PRN PRN Reason: Pain Score 1-10/Temp > 100.7 F Albuterol Sulfate (Albuterol 2.5 Mg/3 Ml Vial.Neb.) 2.5 mg INHALATION Q4H PRN PRN PRN Reason: Shortness of breath, wheezing Fentanyl (Fentanyl 25 Mcg Patch) 25 mcg TD Q72H REPLACED BY [facility] Last Admin: 09/02/20 08:24 Dose: 25 mcg Documented by: Heparin Sodium (Beef Lung) (Heparin Pf Lock 10 Units/Ml 50 Units/5 Ml Syringe) 50 units IV UD PRN PRN Reason: Port-a-Cath (VAD)Heparin Flush Piperacillin Sod/Tazobactam (Sod 3.375 gm/ Sodium Chloride) 50 mls @ 12.5 mls/hr IV Q8 REPLACED BY [facility] Last Infusion: 09/02/20 09:35 Dose: Infused Documented by: Potassium Chloride () 10 meq in 100 mls @ 100 mls/hr IV BOLUS Q1H REPLACED BY [facility] Stop: 09/02/20 12:29 Last Admin: 09/02/20 10:46 Dose: 100 mls/hr Documented by: Sodium Chloride () 1,000 mls @ 100 mls/hr IV .Q10H REPLACED BY [facility] Last Infusion: 09/02/20 08:37 Dose: 0 mls/hr Documented by: Morphine Sulfate (Morphine 2 Mg/Ml Syringe) 2 mg IV Q4H PRN PRN PRN Reason: Pain Score 4-10 Last Admin: 09/02/20 06:53 Dose: 2 mg Documented by: Nutritional Formula (Lactose Free) (Ensure Clear 120 Ml Liquid) 120 ml PO TIDCM REPLACED BY [facility] Last Admin: 09/02/20 08:23 Dose: 120 ml Documented by: Ondansetron HCl (Ondansetron 4 Mg/2 Ml Vial) 4 mg IV Q8H PRN PRN PRN Reason: NAUSEA/VOMITING Sodium Chloride (0.9% Saline Lock 10 Ml Syringe) 10 - 40 ml IV UD PRN PRN Reason: Port-a-Cath (VAD) Flush Last Admin: 09/02/20 01:26 Dose: 20 ml Documented by: Sodium Chloride (0.9 % Nacl (Sterile) Posiflush 10 Ml) 10 - 40 ml IV UD PRN PRN Reason: Port access or dressing change Tbo-Filgrastim (Tbo-Filgrastim 300 Mcg/0.5 Ml Ml) 300 mcg SC DAILY PATSY Last Admin: 09/02/20 08:25 Dose: 300 mcg Documented by: STROKE Vital Signs/Narrative: Vital Signs Temp Pulse Resp BP Pulse Ox 09/02/20 08:25 98.3 F 90 18 140/68 H 97 09/02/20 08:00 90 09/02/20 07:52 93 Medical Necessity - Tobacco Use Smoking Status: Former smoker Assessment/Plan All Active Problems (Last Updated 09/01/20 @ 21:[address] Elyse Jaramillo MD) Diverticulitis (Acute) 1. Acute sigmoid diverticulitis -Continue with clear liquid diet as well as IV antibiotics -We will continue to monitor CBC and BMP and adjust medications as necessary -Continue with pain meds 2. High-grade B-cell lymphoma status post chemotherapy with pancytopenia and severe neutropenia/history of prostate cancer -Received another dose of his chemotherapy about a week ago and also had Neulasta at that time. He presented to the hospital with leukopenia and absolute neutrophil count of 0.1 -We will proceed with daily Granix until we have an adequate white blood cell response -He is status post a radical prostatectomy and radiation back in 2011 3. COPD -Not currently in exacerbation -Continue with inhalers as necessary DVT: SCDs Inpatient E&M: 71851 Subs Hosp L2
[2020-09-02 14:23] LABS: Pathologist Review Reviewed
[2020-09-02 14:23] LABS: Pathologist Review Reviewed
--- NOTE | 2020-09-02 15:43 | NURSING ---
RN CM Assessment Introduced role of RN CM to patient.? Patient is alert, oriented and able?to participate in RN CM Assessment. ?Care providers, pharmacy, and demographics verified. Admit Dx: Acute sigmoid diverticulitis, Pancytopenia. Re-Admit: No Barriers/Issues: H/o Lymphoma on chemo. Has completed 3 sessions and has 3 more to go. Next chemo on Sep 15. PCP: Casey Melo Specialists: Kandis Brown Preferred Pharmacy: [facility] Insurance: [employer] [facility] Rx Benefit:?Yes ?LNOK: Friend Britney Hilliard LW/HPOA: States has completed with [facility], HPOA- cousin Barrington Gamboa Living Arrangements:? Lives with friend Britney Hilliard ADL?s: Independent with ambulation and ADLs Transportation: Patient drives, DC with neighbor, friend Britney or Taxi DME: [employer] HHC: None SNF: None Goal: Home and does not think will have any needs. Denies any issues, questions, or concerns with DC planning at this time. Aware RNCM will remain available for any emerging needs. DC PLAN: Home with no anticipated needs identified at this time. WOJCIECH Pete
[2020-09-03 03:09] VITALS: BP 116/59; PULSE 82; RESP 16; TEMP 37.4; O2SAT 95
[2020-09-03] MEDS: Morphine 2 MG/ML Syringe IV ×4 (03:12→19:54)
[2020-09-03 05:24] LABS: Hematocrit 22.7 % (40-54); Hemoglobin 7.8 g/dL (13.0-16.5); Mean Corp Hgb Conc 34.4 g/dL (32-36); Mean Platelet Vol. 10.8 fl (6.2-12.0); POSITIVE COUNT YES; POSITIVE DIFFERENTIAL YES; POSITIVE MORPHOLOGY YES; Platelet Count 72 K/mm3 (150-450); RBC Distribution Width CV 14.6 % (11.6-14.6); RBC Distribution Width SD 49.9 fl (35.1-43.9); Red Blood Count 2.44 M/mm3 (4.6-6.2); White Blood Count 2.4 K/mm3 (4.4-11.0)
[2020-09-03 05:35] LABS: Differential Indicated MANUAL DIFF
[2020-09-03 05:38] LABS: Anion Gap 5 (5-15); BUN 7 mg/dL (7-18); BUN/Creat Ratio 13.5 RATIO (10-20); Calcium,Total 7.9 mg/dL (8.5-10.1); Chloride 110 mmol/L (98-107); Creatinine, Serum 0.52 mg/dL (0.70-1.30); EST Glomerular Filtration Rate 169 mL/min (>60); Est Glom Filt Rate - Afr Amer 205 mL/min (>60); Estimated Creatinine Clearance 60.72 ml/min; Glucose 80 mg/dL (74-106); Potassium 3.6 mmol/L (3.5-5.1); Sodium Level 139 mmol/L (136-145)
[2020-09-03 05:52] LABS: Total Cells Counted 100 (MANUAL DIFF)
[2020-09-03 06:00] LABS: Basophil 2 % (0-1); Lymphocyte 16 % (19-41); Metamyelocyte 3 % (0-1); Neutrophil-Segmented 61 % (47-70); Platelet Estimate MOD DEC (ADEQ)
[2020-09-03 06:01] LABS: Monocyte 5 % (0-10); Neutrophil-Band 13 % (0-5)
[2020-09-03 06:02] LABS: Absolute Lymphocyte Count 0.38 X10^3/uL (0.83-4.51); Absolute Neutrophil Count 2.9 X10^3/uL (2.0-7.7); Lymphocyte # 0.38 X10^3/ul (4.0); Neutrophil # 2.93 X10^3/uL (2.7-7.7)
[2020-09-03] MEDS: 0.9% Saline Lock 10 ML Syringe IV ×2 (07:14→14:26)
[2020-09-03 07:50] VITALS: BP 130/58; PULSE 84; RESP 16; TEMP 36.9; O2SAT 96
[2020-09-03] MEDS: Ensure Clear 120 ML Liquid PO (08:06)
[2020-09-03] MEDS: 0.9% Normal Saline 1,000 ML 100 ML IV ×2 (08:08→18:13)
[2020-09-03 09:56] VITALS: O2SAT 96
[2020-09-03] MEDS: TBO-FILGRASTIM 300 MCG/0.5 ML ML SC (10:11)
[2020-09-03 10:21] LABS: Pathologist Review Reviewed
--- NOTE | 2020-09-03 14:08 | PCM.PN.HOSP ---
Patient Problems: Active and Suspected Problems (Last Updated 09/01/20 @ 21:[address] Elyse Jaramillo MD) Diverticulitis (Acute) Subjective: Thinks that his abdominal pain is a little bit better today. No issues overnight. Vitals/I&O's: Vital Signs Temp Pulse Resp BP Pulse Ox 98.4 F 84 16 130/58 H 96 09/03/20 07:50 09/03/20 07:50 09/03/20 07:50 09/03/20 07:50 09/03/20 09:56 Oxygen Delivery Method Room Air Weight: 130 lb 3.986 oz Body Mass Index (BMI) 19.8 Intake and Output for Last 24 Hours 09/01/20 09/02/20 09/03/20 23:59 23:59 23:59 Intake Total 1100 / 1100 3123.34 / 3223.34 1350 / 1350 Output Total 2 / 2 Balance 1100 / 1100 3121.34 / 3221.34 1350 / 1350 General: Alert, Oriented x3, Cooperative, No apparent distress HEENT: Atraumatic, PERRLA, EOMI, Normocephalic Oral: Moist Mucosa Neck: Supple, No JVD Lungs: Clear to auscultation, Normal air movement, No rhonchi, No wheeze, No rales, Diminished Cardiovascular: Regular rate, Regular Rhythm, Normal S1, Normal S2, No murmurs Abdomen: Soft, Non-Distended, No Hepato-splenomegaly, Tender - Left lower quadrant Extremities: No edema, Capillary Refill Less than 3 Seconds Skin: No rashes, No breakdown Neurological: Neuro grossly intact, Sensory exam intact to light touch and pain Psych/Mental Status: Normal Affect, Appropriate Laboratory Results 09/01/20 17:00: Diff Path Review Reviewed 09/02/20 05:55: Diff Path Review Reviewed 09/03/20 05:05: WBC 2.4 L, RBC 2.44 L, Hgb 7.8 L, Hct 22.7 L, MCV 93.0, MCH 32.0, MCHC 34.4, RDW Std Deviation 49.9 H, RDW Coeff of Nir 14.6, Plt Count 72 L, MPV 10.8, Neut % (Auto) Not Reportable, Absolute Neuts (auto) 2.9, Absolute Lymphs (auto) 0.38 L, Total Counted 100, Neutrophils % (Manual) 61, Band Neutrophils % 13 H, Lymphocytes % (Manual) 16 L, Monocytes % (Manual) 5, Basophils % (Manual) 2 H, Metamyelocytes % 3 H, Diff Path Review Reviewed, Platelet Estimate MOD DEC 09/03/20 05:05: Sodium 139, Potassium 3.6, Chloride 110 H, Carbon Dioxide 24.0, Anion Gap 5, BUN 7, Creatinine 0.52 L, Estim Creat Clear Calc 60.72, Est GFR (MDRD) Af Amer 205, Est GFR (MDRD) Non-Af 169, BUN/Creatinine Ratio 13.5, Glucose 80, Calcium 7.9 L Current Medications Acetaminophen (Acetaminophen 325 Mg Tablet) 650 mg PO Q6H PRN PRN PRN Reason: Pain Score 1-10/Temp > 100.7 F Albuterol Sulfate (Albuterol 2.5 Mg/3 Ml Vial.Neb.) 2.5 mg INHALATION Q4H PRN PRN PRN Reason: Shortness of breath, wheezing Fentanyl (Fentanyl 25 Mcg Patch) 25 mcg TD Q72H [facility] Last Admin: 09/02/20 08:24 Dose: 25 mcg Documented by: Heparin Sodium (Beef Lung) (Heparin Pf Lock 10 Units/Ml 50 Units/5 Ml Syringe) 50 units IV UD PRN PRN Reason: Port-a-Cath (VAD)Heparin Flush Piperacillin Sod/Tazobactam (Sod 3.375 gm/ Sodium Chloride) 50 mls @ 12.5 mls/hr IV Q8 [facility] Last Admin: 09/03/20 05:42 Dose: 12.5 mls/hr Documented by: Sodium Chloride () 1,000 mls @ 100 mls/hr IV .Q10H [facility] Last Admin: 09/03/20 08:08 Dose: 100 mls/hr Documented by: Morphine Sulfate (Morphine 2 Mg/Ml Syringe) 2 mg IV Q4H PRN PRN PRN Reason: Pain Score 4-10 Last Admin: 09/03/20 07:14 Dose: 2 mg Documented by: Ondansetron HCl (Ondansetron 4 Mg/2 Ml Vial) 4 mg IV Q8H PRN PRN PRN Reason: NAUSEA/VOMITING Sodium Chloride (0.9% Saline Lock 10 Ml Syringe) 10 - 40 ml IV UD PRN PRN Reason: Port-a-Cath (VAD) Flush Last Admin: 09/03/20 07:14 Dose: 10 ml Documented by: Sodium Chloride (0.9 % Nacl (Sterile) Posiflush 10 Ml) 10 - 40 ml IV UD PRN PRN Reason: Port access or dressing change Medical Necessity - Tobacco Use Smoking Status: Former smoker Assessment/Plan All Active Problems (Last Updated 09/01/20 @ 21:[address] Elyse Jaramillo MD) Diverticulitis (Acute) 1. Acute sigmoid diverticulitis -He would like to try to advance to a soft diet as his abdominal pain has improved. We will continue with his Zosyn -We will continue to monitor CBC and BMP and adjust medications as necessary -Continue with pain meds 2. High-grade B-cell lymphoma status post chemotherapy with pancytopenia and severe neutropenia/history of prostate cancer -Received another dose of his chemotherapy about a week ago and also had Neulasta at that time. He presented to the hospital with leukopenia and absolute neutrophil count of 0.1 -He received another dose of Granix today and his white blood cell count is 2.4 therefore we will discontinue Granix today -He is status post a radical prostatectomy and radiation back in 2011 3. COPD -Not currently in exacerbation -Continue with inhalers as necessary DVT: SCDs Inpatient E&M: 60284 Subs Hosp L2
[2020-09-03 14:15] VITALS: BP 114/55; PULSE 84; RESP 16; TEMP 37.2; O2SAT 97
[2020-09-03 19:49] VITALS: BP 140/62; PULSE 91; RESP 18; TEMP 37.3; O2SAT 95
--- NOTE | 2020-09-04 01:58 | NURSING ---
Covid 19 emergency charting in effect.
[2020-09-04 02:47] VITALS: BP 160/70; PULSE 83; RESP 18; TEMP 37.5; O2SAT 94
[2020-09-04] MEDS: 0.9% Normal Saline 1,000 ML 100 ML IV (02:53)
[2020-09-04] MEDS: Morphine 2 MG/ML Syringe IV ×2 (02:53→08:12)
[2020-09-04 05:46] LABS: Hematocrit 23.4 % (40-54); Hemoglobin 7.8 g/dL (13.0-16.5); Mean Corp Hgb Conc 33.3 g/dL (32-36); Mean Corpuscular Volume 92.9 fL (80-94); Mean Platelet Vol. 10.5 fl (6.2-12.0); POSITIVE COUNT YES; POSITIVE DIFFERENTIAL YES; POSITIVE MORPHOLOGY YES; Platelet Count 103 K/mm3 (150-450); RBC Distribution Width CV 14.8 % (11.6-14.6); RBC Distribution Width SD 49.9 fl (35.1-43.9); Red Blood Count 2.52 M/mm3 (4.6-6.2); White Blood Count 7.1 K/mm3 (4.4-11.0)
[2020-09-04 06:13] LABS: Anion Gap 6 (5-15); BUN 4 mg/dL (7-18); BUN/Creat Ratio 6.5 RATIO (10-20); Calcium,Total 7.9 mg/dL (8.5-10.1); Chloride 110 mmol/L (98-107); Creatinine, Serum 0.61 mg/dL (0.70-1.30); EST Glomerular Filtration Rate 140 mL/min (>60); Est Glom Filt Rate - Afr Amer 170 mL/min (>60); Estimated Creatinine Clearance 60.72 ml/min; Glucose 92 mg/dL (74-106); Sodium Level 140 mmol/L (136-145)
[2020-09-04 06:20] LABS: Basophil 1 % (0-1); Lymphocyte 7 % (19-41); Metamyelocyte 1 % (0-1); Monocyte 4 % (0-10); Neutrophil-Band 3 % (0-5); Neutrophil-Segmented 84 % (47-70); Nucleated Red Bld Cells,Manual 1 % (0-5); Total Cells Counted 100 (MANUAL DIFF)
[2020-09-04 06:21] LABS: Anisocytosis 2+; Hypochromasia 3+; Macrocytosis 1+; Platelet Estimate ADEQUATE (ADEQ); Toxic Granulation 2+
[2020-09-04 06:23] LABS: Differential Indicated MANUAL DIFF; Scan Smear per Review Criteria MANUAL DIFF
[2020-09-04 07:20] LABS: Absolute Neutrophil Count 6.2 X10^3/uL (2.0-7.7); Neutrophil # 6.21 X10^3/uL (2.7-7.7)
[2020-09-04 08:10] VITALS: BP 144/58; PULSE 74; RESP 18; TEMP 37.1; O2SAT 95
--- NOTE | 2020-09-04 09:16 | DCINST_ITS ---
- Discharge Diagnoses Current Active Problems: Current Active and Chronic Problems (Last Updated 09/01/20 @ 21:[address] Elyse Jaramillo MD) Acute Sigmoid Diverticulitis High-grade B-cell lymphoma status post recent chemotherapy with pancytopenia and severe neutropenia, improved with granix with metastatic disease with history of Prostate Cancer Chronic COPD Chronic Hepatitis C Chronic pain syndrome Gout You will use the following diet at home:: Other - Advise slowly advancing your intake amount and type. Advise continued low fat/low sugar intake. Your food should be the consistency of: Regular Your liquids should be the consistency of: Regular/Thin Discharge Activity: - - Encourage routine activity. Advise assist devices as needed. Please avoid driving with your chronic narcotic therapy. Call your doctor if you observe: Fever of 101 or Higher, Inability to urinate, Inability to have a bowel movement, Shortness of breath, Dizziness, Chest pain, Uncontrolled pain Instructions: Understanding Diverticulosis and Diverticulitis Allergies/Adverse Reactions: Allergies No Known Allergies Allergy (Verified 09/01/20 16:25) Medications to take at Discharge Budesonide/Formoterol 160/4.5 [Symbicort 160/4.5 Mcg Inhaler (SP)] 2 puff INHALATION BID MDD copd 06/24/20 Allopurinol 300 mg PO DAILY 09/01/20 Fentanyl 25 mcg TOPICAL Q72H 09/01/20 Oxycodone HCl/Acetaminophen [Oxycodone-Acetaminophen 5-325] 1 ea PO BID PRN PRN 09/01/20 Amoxicillin/Potassium Clav [Augmentin 875-125 Tablet] 1 ea PO BID 8 Days #16 tab 09/04/20 Ondansetron [Zofran] 8 mg PO Q8H PRN PRN #20 tab 09/04/20 The following prescriptions were given: Amoxicillin/Potassium Clav [Augmentin 875-125 Tablet] 1 ea PO BID 8 Days #16 tab Transmission Status: Received by [id number] Ondansetron [Zofran] 8 mg PO Q8H PRN PRN #20 tab PRN Reason: nausea, emesis Transmission Status: Received by [id number] Primary Care Physician: Gricelda Rose MD [STAFF PHYSICIAN] - Please follow up with your Primary Care Physician in: Follow-up within 3-5 days to review admission. Test Results: Test results from this visit will be discussed in further detail at your follow- up appointment, if applicable. Please Follow Up With: Cesar Brown MD When: Contact office Monday and notify of recent admission/diagnosis. Proposed Discharge Date: 09/04/20
--- NOTE | 2020-09-04 09:26 | PCM.DC.SUM ---
Discharge Date and Diagnosis - Problem List Patient Problems: Active and Suspected Problems (Last Updated 09/01/20 @ 21:[address] Elyse Jaramillo MD) Diverticulitis (Acute) Date of Admission: 09/01/20 Date of Discharge: 09/04/20 - Primary Discharge Diagnosis Acute Problems: Active Problems (Last Updated 09/01/20 @ 21:[address] Elyse Jaramillo MD) 1. Acute Sigmoid Diverticulitis 2. High-grade B-cell lymphoma status post recent chemotherapy with pancytopenia and severe neutropenia, improved with granix with metastatic disease with history of Prostate Cancer 3. Severe protein calorie malnutrition secondary to underlying cancer with metastatic disease as noted #2 on chemotherapy actively evidenced per habitus, muscle and fat loss 4. Chronic COPD 5. Chronic Hepatitis C 6. Chronic pain syndrome 7. Gout - Secondary Discharge Diagnosis Chronic Problems: Chronic Problems (Last Updated 09/01/20 @ 21:[address] 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) Hepatitis C virus infection (Chronic) Hospital Course and Treatment Operations: None Procedures: EKG Summary of Care Provided: The patient is a 65 y/o M w/ PMHx High-grade B-cell lymphoma status post recent chemotherapy with pancytopenia with metastatic disease with history of Prostate Cancer, Chronic COPD, Chronic Hepatitis C, Chronic pain syndrome, Gout who presented to the [facility] ED on 09/01/20 with history of ongoing abdominal pain for approximately 4 to 5 days specifically in the left lower quadrant described as an aching, constant, 4-10 in severity without radiation with no associated fevers, chills, nausea, emesis with occasional loose stool prompting eventual ED presentation. ED work-up with significant severe leukopenia, anemia, thrombocytopenia as well as ANC less than 1, CT abdomen and pelvis with evidence acute sigmoid diverticulitis without perforation or abscess formation. Patient was admitted to medical surgical floor, initiated on Zosyn therapy, initially oral intake held with ongoing antiemetics and pain regimen, clinically improved with eventual allowance of diet with initially clears with advancement as tolerated eventually to regular. Given patient clinical improvement as well as improvement of CBC with additional dose of Granix patient discharged in 09/04/2020 on continued oral antibiotic therapy with plan to follow-up outpatient with his PCP and encouraged continued follow-up with his oncologist with advised contact to the office to update them on his recent presentation with likely need to transition upcoming chemotherapy to a later date. DAY OF DISCHARGE PROGRESS NOTE: Subjective: Patient without acute event overnight per self and nursing report. Patient notes abdominal discomfort is significantly improved, only occasional aching left lower quadrant with no further loose stools. Patient tolerating diet and amenable to advancement with discharge to home if tolerated. Patient denies fever, chills, nausea, emesis, abdominal pain, chest pain or dyspnea. Patient agreeable to discharge to home as noted with continued antibiotic therapy. Patient will be discharged with follow-up with primary care physician within 3-5 days in addition to encourage continued follow-up with his oncologist. Objective: T 98.7, heart rate 74, BP 144/58, respiratory rate 18, 95% on room air. Physical Examination: General: awake, alert, oriented x 3 and cooperative, seated upright in the medical surgical bed, notes abdomen feeling improved. Skin: normal color, turgor, no icterus, cyanosis. HEENT: AT/NC, EOMI, PERRLA, improved MMM. Lungs: CTA bilaterally, moderate effort, mild decrease BL bases, no rales, ronchi or wheezing; Heart: Regular rate and rhythm; no gallop, rub audible. Abdomen: soft, thin habitus, mild discomfort left lower quadrant otherwise not significantly improved, nondistended, normalizing bowel sounds. Extremities: no cyanosis, clubbing, or edema. Neurological: patient awake, alert, oriented as noted; cognitive function appears intact upon questioning,; pupils equally reactive to light and accomodation; cranial nerves II-XII grossly normal, moving all 4 extremities, strength improving, moderately global decreased. Psychiatric: affect appears improved, normal, no acute evidence of depressive or anxiety feelings. Assessment and Plan: Please see hospital summary above. Patient Problems: Active and Suspected Problems (Last Updated 09/01/20 @ 21:[address] Elyse Jaramillo MD) Diverticulitis (Acute) - Physical Exam Vitals/I&O's: Vital Signs Temp Pulse Resp BP Pulse Ox 98.7 F 74 18 144/58 H 95 09/04/20 08:10 09/04/20 08:10 09/04/20 08:10 09/04/20 08:10 09/04/20 08:10 Oxygen Delivery Method Room Air Weight: 130 lb 3.986 oz Body Mass Index (BMI) 19.8 Intake and Output for Last 24 Hours 09/02/20 09/03/20 09/04/20 23:59 23:59 23:59 Intake Total 3123.34 / 3223.34 2450 / 2450 1516.67 / 1516.67 Output Total 2 / 2 Balance 3121.34 / 3221.34 2450 / 2450 1516.67 / 1516.67 Microbiology Past 72 Hours 09/01/20 17:25 Interface Orders Urine Culture - Final Mixed Gram Positive Organisms 09/02/20 00:50 Blood Culture (Wb) - Anticubital Right Blood Culture - Preliminary No growth in 48 hours. Laboratory Results 09/03/20 05:05: Diff Path Review Reviewed 09/04/20 05:15: WBC 7.1, RBC 2.52 L, Hgb 7.8 L, Hct 23.4 L, MCV 92.9, MCH 31.0, MCHC 33.3, RDW Std Deviation 49.9 H, RDW Coeff of Nir 14.8 H, Plt Count 103 L, MPV 10.5, Immature Gran % (Auto) [employer]ING MA[employer]GER, Neut % (Auto) [employer]ENTIALING MANAGER, Lymph % (Auto) [employer]ENTIALING MANAGER, Hawkins % (Auto) [employer]EDENTIALING MANAGER, Eos % (Auto) [employer]EDENTIALING MANAGER, Baso % (Auto) [employer]ENTIALING MANAGER, Absolute Neuts (auto) 6.2, Absolute Lymphs (auto) 0.50 L, Total Counted 100, Neutrophils % (Manual) 84 H, Band Neutrophils % 3, Lymphocytes % (Manual) 7 L, Monocytes % (Manual) 4, Basophils % (Manual) 1, Metamyelocytes % 1, Nucleated RBC % [employer]ENTIALING MANAGER, Nucleated RBCs/100 WBC 1, Diff Path Review May foll, Toxic Granulation 2+, Platelet Estimate ADEQUATE, Hypochromasia 3+, Anisocytosis 2+, Macrocytosis 1+ 09/04/20 05:15: Sodium 140, Potassium 3.0 L, Chloride 110 H, Carbon Dioxide 24.0, Anion Gap 6, BUN 4 L, Creatinine 0.61 L, Estim Creat Clear Calc 60.72, Est GFR (MDRD) Af Amer 170, Est GFR (MDRD) Non-Af 140, BUN/Creatinine Ratio 6.5 L, Glucose 92, Calcium 7.9 L Current Medications Acetaminophen (Acetaminophen 325 Mg Tablet) 650 mg PO Q6H PRN PRN PRN Reason: Pain Score 1-10/Temp > 100.7 F Albuterol Sulfate (Albuterol 2.5 Mg/3 Ml Vial.Neb.) 2.5 mg INHALATION Q4H PRN PRN PRN Reason: Shortness of breath, wheezing Fentanyl (Fentanyl 25 Mcg Patch) 25 mcg TD Q72H [facility] Last Admin: 09/02/20 08:24 Dose: 25 mcg Documented by: Heparin Sodium (Beef Lung) (Heparin Pf Lock 10 Units/Ml 50 Units/5 Ml Syringe) 50 units IV UD PRN PRN Reason: Port-a-Cath (VAD)Heparin Flush Piperacillin Sod/Tazobactam (Sod 3.375 gm/ Sodium Chloride) 50 mls @ 12.5 mls/hr IV Q8 [facility] Last Admin: 09/04/20 05:54 Dose: 12.5 mls/hr Documented by: Sodium Chloride () 1,000 mls @ 100 mls/hr IV .Q10H [facility] Last Admin: 09/04/20 02:53 Dose: 100 mls/hr Documented by: Morphine Sulfate (Morphine 2 Mg/Ml Syringe) 2 mg IV Q4H PRN PRN PRN Reason: Pain Score 4-10 Last Admin: 09/04/20 08:12 Dose: 2 mg Documented by: Ondansetron HCl (Ondansetron 4 Mg/2 Ml Vial) 4 mg IV Q8H PRN PRN PRN Reason: NAUSEA/VOMITING Sodium Chloride (0.9% Saline Lock 10 Ml Syringe) 10 - 40 ml IV UD PRN PRN Reason: Port-a-Cath (VAD) Flush Last Admin: 09/03/20 14:26 Dose: 10 ml Documented by: Sodium Chloride (0.9 % Nacl (Sterile) Posiflush 10 Ml) 10 - 40 ml IV UD PRN PRN Reason: Port access or dressing change Discharge Activity: - - Encourage routine activity. Advise assist devices as needed. Please avoid driving with your chronic narcotic therapy. Call your doctor if you observe: Fever of 101 or Higher, Inability to urinate, Inability to have a bowel movement, Shortness of breath, Dizziness, Chest pain, Uncontrolled pain Home Medications: Medications to take at Discharge Budesonide/Formoterol 160/4.5 [Symbicort 160/4.5 Mcg Inhaler (SP)] 2 puff INHALATION BID MDD copd 06/24/20 Allopurinol 300 mg PO DAILY 09/01/20 Fentanyl 25 mcg TOPICAL Q72H 09/01/20 Oxycodone HCl/Acetaminophen [Oxycodone-Acetaminophen 5-325] 1 ea PO BID PRN PRN 09/01/20 Amoxicillin/Potassium Clav [Augmentin 875-125 Tablet] 1 ea PO BID 8 Days #16 tab 09/04/20 Ondansetron [Zofran] 8 mg PO Q8H PRN PRN #20 tab 09/04/20 Following Prescriptions Were Given to Patient: Amoxicillin/Potassium Clav [Augmentin 875-125 Tablet] 1 ea PO BID 8 Days #16 tab Transmission Status: [id number] Ondansetron [Zofran] 8 mg PO Q8H PRN PRN #20 tab PRN Reason: nausea, emesis Transmission Status: Received by [id number] Primary Care Physician: Gricelda Rose MD [STAFF PHYSICIAN] - Please follow up with your Primary Care Physician in: Follow-up within 3-5 days to review admission. Please Follow Up With: Cesar Brown MD When: Contact office Monday and notify of recent admission/diagnosis. Patient Instructions: Understanding Diverticulosis and Diverticulitis Disposition: Home Minutes spent on discharge:: 35 Patient Condition:: Fair Medical Necessity - Tobacco Use Smoking Status: Former smoker Meaningful Use Info Meaningful Use Diagnoses (Choose all that apply): None applicable Inpatient E&M: 63620 Disch Hosp
[2020-09-04] MEDS: 0.9% Saline Lock 10 ML Syringe IV (10:40)
[2020-09-07 12:03] LABS: Pathologist Review Reviewed
--- NOTE | 2020-09-08 14:23 | CASEMGMT ---
JOSE ALBERTO MARTINEZ Discharge Follow-Up Phone Call. [place]: 15 Strata: 4 Discharge Date: 09/04/20 Adm Dx: Acute sigmoid diverticulitis, pancytopenia Call to pt to inquire about how he has been doing since being discharged from the hospital. He states slowly getting better and states he is aware it will take awhile to recover. He was able to get the new prescriptions and has started taking them. He has not had any N/V and has not been taking the Zofran but inquired if he should be taking it. Pt informed that he should only take it as needed for N/V. He voices understanding. He denies having any questions about the other meds. He has a phone appt with his PCP, Dr Melo, tomorrow @ 4700 and he did notify Dr Brown's office about his hospitalization and they are going to delay his chemo for a week. He denies having any other questions about the discharge instructions. JOSE ALBERTO MARTINEZ thanked pt for choosing [facility]. Samantha KEANE RN, CM
== END 2020-09-04 11:10 | disposition home or self-care (01) | DRG 391 ==
LOC: ED 20:00 → MS3 21:34
PROVIDERS: Family Medicine; Admitting Provider Hospitalist; Emergency Provider Emergency Medicine; PCP Family Medicine; Visit Provider Family Medicine
DX: K57.32 Diverticulitis of large intestine without perforation or abscess without bleeding (principal); E43 Unspecified severe protein-calorie malnutrition; D61.818 Other pancytopenia; C85.10 Unspecified B-cell lymphoma, unspecified site; Z68.1 Body mass index [BMI] 19.9 or less, adult; C83.70 Burkitt lymphoma, unspecified site; B18.2 Chronic viral hepatitis C; D70.1 Agranulocytosis secondary to cancer chemotherapy; T45.1X5A Adverse effect of antineoplastic and immunosuppressive drugs, initial encounter; J44.9 Chronic obstructive pulmonary disease, unspecified; Z85.46 Personal history of malignant neoplasm of prostate; F17.200 Nicotine dependence, unspecified, uncomplicated; G89.4 Chronic pain syndrome; M10.9 Gout, unspecified
CPT/HCPCS: 36415; 36591; 74177; 80048; 80053; 81001; 83690; 85025; 85610; 87040; 87086; 87088; 93005; 97110; 97162; 97166; 97530; 97802; 97803; 99251; 99285; 99406; J7030; J7040; J7120; Q9967; A4216; G0463; J1447

== ENCOUNTER 2025-02-18 13:53 | Inpatient (IN) | payer MEDICARE, SELFPAY ==
[2025-02-18] VITALS (27 sets, daily range): BP systolic 86–138; BP diastolic 67–89; PULSE 64–88; RESP 15–25; TEMP 35.9–36.7; O2SAT 22–100; BMI 19.5; BMI 18.6
--- NOTE | 2025-02-18 14:07 | EKG12_ITS ---
Test Reason : S/P STEMI Blood Pressure : */* mmHG Vent. Rate : 70 BPM Atrial Rate : 70 BPM P-R Int : 136 ms QRS Dur : 88 ms QT Int : 422 ms P-R-T Axes : * 143 169 degrees QTcB Int : 455 ms Normal sinus rhythm ? limb lead reversal ST depression, consider subendocardial injury Nonspecific T wave abnormality Abnormal ECG When compared with ECG of 18-Feb-2025 13:56, MANUAL COMPARISON REQUIRED DATA IS UNCONFIRMED Confirmed by Cristobal Mereidth ([id number]), video news editor CINTHYA MARQUIS ([id number]) on 02/19/2025 10:41:02 AM Referred By: Rodrigo Ceballos Confirmed By: Cristobal Meredith
--- NOTE | 2025-02-18 14:08 | ED.VIS.CHEST ---
HPI History of Present Illness Chief Complaint: Chest Pain Informant: patient Onset/Context/Timing Onset: Days Activity at onset: gradual Timing: Continuous Quality: Positive for Aching Location: Left Chest Current Severity: Mild Maximum Severity: Moderate Worsened By: Nothing Relieved By: Nothing Associated Symptoms: Positive for Nausea, Diaphoresis, Dyspnea and Acid Reflux Narrative Narrative: 69-year-old male history of COPD, peripheral arterial disease, prostate cancer with mets and no underlying cardiac history he is aware of. He has had 2 maybe 3 days of left-sided chest pain that he thought was reflux. It waxes and wanes in intensity. He was brought in by squad. There prehospital EKG looks a acute inferior MO with ST elevation and ST depression reciprocally in the anterior leads. They gave him heparin bolus and sublingual nitro and the patient states he is feeling much better but still having some discomfort. Prior Similar Symptoms: No Recent Illness/Hospitalization: No PE Risk Factors: Positive for Cancer; Negative for Recent Travel/Surgery, Recent Immobilization, Prior DVT or PE or OCP + Smoking + >/=35 TAD Risk Factors: Negative for Marfan's Syndrome [facility] Medical History Burkitts lymphoma Epigastric pain Osteopenia Hepatitis C virus infection Osteopenia due to cancer therapy Rising PSA following treatment for malignant neoplasm of prostate Regional lymph node metastasis present Prostate cancer Fistula COPD (chronic obstructive pulmonary disease) Hemorrhoids Home Medications ?Medication ?Instructions ?Recorded ?Last Taken ?Type budesonide-formoterol HFA 160 2 puff inhalation BID C 06/24/20 08/31/20 21:00 History mcg-4.5 mcg/actuation aerosol inhaler Fentanyl 25 mcg topical Q72H pain 09/01/20 08/30/20 History allopurinol 300 mg tablet 300 mg PO DAILY Gout 09/01/20 09/01/20 06:00 History oxycodone-acetaminophen 5 mg-325 1 ea PO BID PRN PRN Pain Score 1-10 09/01/20 09/01/20 15:00 History mg tablet ondansetron HCl 8 mg tablet 8 mg PO Q8H PRN PRN nausea, emesis 09/04/20 Unknown Rx #20 tabs fluticasone furoate 200 1 ea inhalation DAILY 02/18/25 Unknown History mcg-vilanterol 25 mcg/dose inhalation powder (Breo Ellipta) Allergy/AdvReac Type Severity Reaction Status Date / Time No Known Allergies Allergy Verified 09/01/20 16:25 Family History Father CVA (cerebral vascular accident) Heart disease Mother CVA (cerebral vascular accident) Grandfather Heart disease Grandmother Heart disease Surgical History History of tonsillectomy History of appendectomy History of prostatectomy Social History Smoking Status: Former smoker alcohol intake: current alcohol intake frequency: a few times a month substance use type: does not use ROS ROS ED ROS Narrative Chest pain. Short of breath. Nausea. Diaphoresis. Constitutional Constitutional ED: Denies fever(s) Eyes Eyes: Reports none ENT ENT ED: Denies ear pain Cardiovascular Cardiovascular: Reports as per HPI and chest pain; Denies palpitations or racing heartbeat Respiratory/Chest Respiratory/Chest: Reports cough and dyspnea Gastrointestinal Gastrointestinal: Reports nausea; Denies abdominal pain, diarrhea or vomiting Genitourinary Genitourinary ED: Denies dysuria or hematuria Musculoskeletal Musculoskeletal: Denies arthralgias or back pain Integumentary Denies abscess Neurologic Neurologic: Denies headache(s) Psychiatric Psychiatric: Denies anxiety Endocrine Endocrinology: Denies cold intolerance Hematologic/Lymphatic Hematologic/Lymphatic: Denies easy bleeding, easy bruising or lymphadenopathy Allergic/Immunologic Allergic/Immunologic ED: Denies mouth swelling, tongue swelling or urticaria EXAM Physical Exam Narrative Exam Narrative: 69-year-old male sitting upright in bed. Just brought in by squad. States he feels much better than he did but he still having chest discomfort. Vital signs are stable afebrile. Initial pressure 138/80. Pulse ox 99% room air no hypoxia. H EENT exam pupils round react light. Moist mucous membranes. Neck nontender no JVD. Lungs clear to auscultation bilaterally. Heart regular rhythm rate about 80 no murmur. Chest wall ribs nontender. Mediport in his right chest wall. Abdomen soft nontender. Normal bowel sounds without peritoneal signs. Moving all 4 extremities. Calves nontender without edema or cords. 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 Normal dorsi plantarflexion. Neurologically is awake alert. Answering questions following commands. Back nontender. Const Vital Signs: 02/18/25 13:54 Temperature 98.1 F Temperature Source Temporal Pulse Rate 77 Respiratory Rate 22 H Blood Pressure 138/80 H Blood Pressure Mean 99 Pulse Ox 99 Oxygen Delivery Method Room Air Positive well nourished and well developed; Negative for obese, cachectic, contractures or unkempt General Appearance ED: well developed; Negative for unkempt, cachectic, contractures or pallor Nutritional Appearance: Negative for cachectic or obese HEENT Reports moist mucous membranes normocephalic and atraumatic Eyes EOMs intact bilaterally General Eye ED: Negative for pale conjunctiva or scleral icterus Neck no lymphadenopathy, supple and no JVD General: Negative for tenderness Chest Wall inspection of chest normal and palpation of chest normal Resp normal respiratory effort and clear to auscultation bilaterally Cardio regular rate, regular rhythm, S1 normal heart sound, S2 normal heart sound and no murmurs Peripheral Pulses: pulses 2+ throughout GI normal to inspection, nondistended, normoactive bowel sounds, soft to palpation, non-tender, non-distended and no masses Back/Spine no CVA tenderness and no thoracic nor lumbar tenderness Extremity normal to inspection General Extremety ED: Negative for edema, pulses abnormal or tenderness General Extremity: Negative for edema or pulses abnormal Neuro oriented x3 and CN's II-XII intact bilaterally Sensorium / Orientation: awake, alert, oriented to person, oriented to place and oriented to time; Negative for confused, lethargic or stuporous Motor Exam: strength 5/5 throughout Psych mental status grossly normal Appearance: Negative for unkempt Attitude: No agitated Mood & Affect: Negative for depressed, anxious or tearful Skin no rashes or lesions noted and no wounds General Skin Exam: Negative for jaundice or pallor Rashes: No rashes noted Trauma: Negative for abrasion or laceration MDM MDM MDM Narrative Medical decision making narrative: 69-year-old male with a prehospital EKG showed an acute inferior MO with reciprocal anterior lead ST depression. Prehospital was given a heparin bolus of 4000 and only weighs around 125 pounds. He was given 4 baby aspirin prehospital and they gave him 1 sublingual nitroglycerin. They were told to hold off on any further sublingual because of the inferior MO. Patient present emerged part and is feeling looked a lot better. His repeat EKG at that time shows sinus rhythm with ST depression anterior leads but the acute MO had resolved on the EKG. Spoke to cardiology and patient was taken directly to the [facility]. History & Record Review Discussion w/independent historian: Patient Additional record(s) reviewed:: Prior inpatient record, Prior outpatient record, Prior ED visit and Prior labs Lab Data Attestation: I reviewed the patient's lab results. Radiography Diagnostic Testing: Chest x-ray was not done because the patient was taken directly to the [facility]. Rhythm Strip Rhythm Strip: Sinus Rhythm Ectopy: None EKG Initial EKG: Attestation: I personally reviewed and interpreted this EKG as follows: Interpretation: Sinus Rhythm and S-T Depression Comments: Normal sinus rhythm with ST depression in the anterior leads. The prehospital acute MO in the inferior leads is resolved currently. Patient currently is feeling much better. Discharge Plan Dx/Rx/DC Orders Clinical Impression: Acute inferior myocardial infarction, Acute chest pain, History of COPD, History of prostate cancer Disposition Disposition: Acute Care Hospital [facility]
--- NOTE | 2025-02-18 14:14 | PCM.HP.STD ---
HPI - General General Date of Admission: 02/18/25 Date of Service: 02/18/25 Chief Complaint: Chest pain HPI Narrative AMIE KILLIAN, is a 69 M who presented to [facility] ED on 02/18/2025 with chest pain. Was found by EMS to have STEMI and was brought in as a STEMI alert. He was seen briefly in the ED before going down to the [facility]. Left heart cath showed a subtotal occlusion of the dominant proximal left circumflex with successful ballooning and stenting done; also showed 60% proximal LAD disease, 70% obtuse marginal disease and estimated EF 40 to 45% with severe posterior hypokinesis to akinesis. Patient was hemodynamically stable post-cath and taken up to the ICU for further management. I saw him in the ICU shortly after he arrived up there. He was sitting back comfortably in bed, conversing normally and in no acute distress. He denied any chest pain or shortness of breath at this time. Noted that he was having intermittent chest discomfort over the past few nights but did not think it was cardiac related. 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 Had prostate radiation therapy but no prior chest radiation therapy. Denies tobacco use. No other acute concerns at this time. [facility] Medical History Burkitts lymphoma Epigastric pain Osteopenia Hepatitis C virus infection Osteopenia due to cancer therapy Rising PSA following treatment for malignant neoplasm of prostate Regional lymph node metastasis present Prostate cancer Fistula COPD (chronic obstructive pulmonary disease) Hemorrhoids Home Medications ?Medication ?Instructions ?Recorded ?Last Taken ?Type cilostazol 100 mg tablet 100 mg PO BID PAD 02/18/25 Unknown History fluticasone furoate 200 1 ea inhalation DAILY COPD 02/18/25 02/18/25 History mcg-vilanterol 25 mcg/dose inhalation powder (Breo Ellipta) Allergy/AdvReac Type Severity Reaction Status Date / Time No Known Allergies Allergy Verified 09/01/20 16:25 Family History Father CVA (cerebral vascular accident) Heart disease Mother CVA (cerebral vascular accident) Grandfather Heart disease Grandmother Heart disease Surgical History History of tonsillectomy History of appendectomy History of prostatectomy Social History Smoking Status: Former smoker alcohol intake: current alcohol intake frequency: a few times a month substance use type: does not use ROS Constitutional Constitutional: Denies chills, fatigue, fever(s) or weakness Eyes Eyes: Denies change in vision Cardiovascular Cardiovascular: Denies chest pain Respiratory/Chest Respiratory/Chest: Denies shortness of breath at rest Gastrointestinal Gastrointestinal: Denies abdominal pain Musculoskeletal Musculoskeletal: Denies arthralgias or myalgias Neurologic Neurologic: Denies dizziness, focal weakness or headache(s) Vital Signs Vital Signs Vital Signs: 02/18/25 13:54 Temperature 98.1 F Temperature Source Temporal Pulse Rate 77 Respiratory Rate 22 H Blood Pressure 138/80 H Blood Pressure Mean 99 Pulse Ox 99 Oxygen Delivery Method Room Air Weight Weight: 58.423 kg Body Mass Index (BMI) 19.5 Physical Exam Const alert, oriented x3 and no apparent distress Constitutional Narrative: Pleasant elderly male, thin appearing, otherwise sitting back comfortably in bed, conversing normally, in no acute distress. General Appearance: cooperative and comfortable HEENT normocephalic, head/scalp atraumatic, hearing grossly normal bilaterally, nasal mucous membranes and turbinates normal and moist oral mucous membranes Eyes PERRL, EOMs intact bilaterally and conjunctivae normal Neck full ROM Chest inspection of chest normal Resp normal respiratory effort, normal air movement, no use of accessory muscles and clear to auscultation bilaterally Cardio regular rate, regular rhythm, no murmurs and peripheral pulses 2+ throughout GI normal to inspection, nondistended, normoactive bowel sounds, soft to palpation, non-tender and non-distended Back/Spine normal ROM Extremity normal to inspection, full ROM and no pedal edema Skin no rashes or lesions noted Psych mental status grossly normal Results Lab / Micro Data 02/18/25 13:45 02/18/25 13:45 Assessment & Plan Assessment/Plan (1) STEMI (ST elevation myocardial infarction): PLAN: Plan Patient is a 69-year-old male who presented to [facility] ED on 02/18/2025 with chest pain. 1. STEMI with resultant ischemic cardiomyopathy ? Admit under inpatient status to ICU. Cardiology following. Left heart cath showed a subtotal occlusion of the dominant proximal left circumflex with successful ballooning and stenting x1 done; also showed 60% proximal LAD disease, 70% obtuse marginal disease and estimated EF 40 to 45% with severe posterior hypokinesis to akinesis. No need for further stenting, okay for medical management for cardiology. Hemodynamically stable on room air post cath with no chest pain. Echo ordered. Initiated on aspirin, high intensity statin, Plavix, Coreg, lisinopril and Lasix. Monitor cardiac telemetry. Appreciate further cardiology recommendations. 2. Mild creatinine elevation ? Creatinine 1.27 on admit. Last labs were from 2019 and creatinine was at 0.6 at that time. Presume mild elevation secondary to STEMI above. Given IV fluids during and post cath. Follow-up a.m. BMP and monitor urine output. 3. History of diffuse large cell lymphoma in remission, history of metastatic prostate cancer on maintenance chemotherapy ? Follows with Dr. Harp with [facility]. Reviewed his most recent office note in [facility] from 07/04/24. Has been in complete remission from diffuse large cell lymphoma with no evidence of recurrence after completing 5 cycles of CHOP with Rituxan therapy in 2020. Diagnosed with prostate cancer in 2011 s/p resection and adjuvant radiation therapy. Found to have been metastasis to the bones and has been on maintenance chemotherapy and Zometa for this with no progression noted. No inpatient needs, continue outpatient follow-up. 4. COPD ? Stable on room air, not in acute exacerbation. Continue home inhaler. DVT prophylaxis: Lovenox CODE STATUS: Full code, verified Expected disposition: Home, 2 to 3 days Total clinical time spent by myself addressing the patient's medical issues, reviewing all the data, and collaborating with patient's care team: 75 minutes. Charges/Coding Visit Charges Inpatient E&M: 90082 Init Hosp L3
--- NOTE | 2025-02-18 14:50 | PCM.CONS.C ---
Assessment & Plan Assessment/Plan (1) Acute posterior myocardial infarction: PLAN: Patient was taken emergently to the cardiac catheterization lab. Subtotal occlusion of the dominant proximal left circumflex was noted. Successful percutaneous revascularization was performed with placement of 3.0 x 8 mm drug-eluting stent. This was postdilated using a 3.25 mm balloon. Excellent results were noted. Continue aspirin lifelong. Clopidogrel for at least 6 months. Risk factor modification. (2) Coronary artery disease: QUALIFIERS: Coronary Disease-Associated Artery/Lesion type: [place] artery [place] vs. transplanted heart: [place] heart Associated angina: with unstable angina Qualified Code(s): I25.110 - Atherosclerotic heart disease of [place] coronary artery with unstable angina pectoris PLAN: See #1 above. Patient has about 60% proximal LAD disease. Also 70% obtuse marginal disease. Continue medical treatment unless symptomatic. (3) Left ventricular systolic dysfunction (LVSD): PLAN: LVEF estimated at 40-45% by left ventriculography. Severe posterior hypokinesis to akinesis. ACEI, beta-blockers. (4) History of COPD: PLAN: As per internal medicine/pulmonology. (5) Prostate cancer: PLAN: As per oncology. HPI Consult Data Date of Consult: 02/18/25 HPI Narrative Reason for Consultation: STEMI HPI Narrative: 69-year-old gentleman with past medical history significant for COPD, peripheral arterial disease and prostate cancer. He presented to the emergency room with complaints of waxing and waning chest pain for the last 2 days. He had a more constant, severe episode this afternoon. EMS was called. An ECG was done which showed acute posterior myocardial infarction. Subsequently a STEMI alert was called. Patient denies any previous history of heart disease. [facility] Medical History Burkitts lymphoma Epigastric pain Osteopenia Hepatitis C virus infection Osteopenia due to cancer therapy Rising PSA following treatment for malignant neoplasm of prostate Regional lymph node metastasis present Prostate cancer Fistula COPD (chronic obstructive pulmonary disease) Hemorrhoids Home Medications ?Medication ?Instructions ?Recorded ?Last Taken ?Type budesonide-formoterol HFA 160 2 puff inhalation BID C 06/24/20 08/31/20 21:00 History mcg-4.5 mcg/actuation aerosol inhaler Fentanyl 25 mcg topical Q72H pain 09/01/20 08/30/20 History allopurinol 300 mg tablet 300 mg PO DAILY Gout 09/01/20 09/01/20 06:00 History oxycodone-acetaminophen 5 mg-325 1 ea PO BID PRN PRN Pain Score 1-10 09/01/20 09/01/20 15:00 History mg tablet ondansetron HCl 8 mg tablet 8 mg PO Q8H PRN PRN nausea, emesis 09/04/20 Unknown Rx #20 tabs fluticasone furoate 200 1 ea inhalation DAILY 02/18/25 Unknown History mcg-vilanterol 25 mcg/dose inhalation powder (Breo Ellipta) Allergy/AdvReac Type Severity Reaction Status Date / Time No Known Allergies Allergy Verified 09/01/20 16:25 Family History Father CVA (cerebral vascular accident) Heart disease Mother CVA (cerebral vascular accident) Grandfather Heart disease Grandmother Heart disease Surgical History History of tonsillectomy History of appendectomy History of prostatectomy Social History Smoking Status: Former smoker alcohol intake: current alcohol intake frequency: a few times a month substance use type: does not use Physical Exam Narrative Comfortable. No apparent distress. Heart sounds 1 and 2 noted. Chest with decreased air entry bilaterally. Alert oriented x 3. No ankle edema. Risk Stratification Risk Stratification Applicable: No Objective Data Vital Signs: Vital Signs Temp Pulse Resp BP Pulse Ox O2 Del Method 98.1 F 77 22 H 138/80 H 99 Room Air 02/18/25 14:28 02/18/25 14:28 02/18/25 14:28 02/18/25 14:28 02/18/25 14:28 02/18/25 14:07 Oxygen Delivery Method Room Air Weight: 128 lb 12.8 oz Body Mass Index (BMI) 19.5 Intake & Output: Intake and Output for Last 24 Hours 02/16/25 02/17/25 02/18/25 23:59 23:59 23:59 Intake Total 0 / 0 Balance 0 / 0 Rhythm Strip Rhythm Strip: Sinus Rhythm Ectopy: None Cardiology Labs/Tests Rhythm: EKG: ECHO: Stress Test: Cardiac Cath: PCI: CT Surgery: Holter monitor: EPS: PPM: CXR: Chest CT Scan:
--- NOTE | 2025-02-18 15:12 | CHAPLAIN ---
Type of Pastoral Visit ___ Initial Visit ___ Follow-up Visit ___ On-call Visit ___ General Patient Visit ___ Spiritual Assessment ___ Family Conference ___ Bereavement _x__ Rapid Response ___ Code Blue ___ Other (describe below) Pastoral Care Referral From ___ Patient ___ Family ___ Nurse ___ Physician ___ Shoe Ironer ___ Candy Mixer _x__ Other (describe below) Sacrament/Intervention _x__ Active listening ___ Anointing ___ Jewish ___ Bereavement ___ Communion ___ Mary Alice exploration ___ ___ Life review _x__ Prayer ___ Reconciliation ___ Sacrament of Sick _x__ Supportive presence ___ Wedding ___ Other (describe below) Pastoral Comments responded to stemi alert in the ED; met with the SO when she arrived at the hospital and escorted her to the Digital Sales Director waiting room; pt was moved to Digital Sales Director after his arrival and initial evaluation; SO expresses fear and anxiety; sat with SO and explained the situation and gave calm assurances of good communication and care from the medical team; SO agreed to prayer and presence; another friend of the patient arrived and would remain with the SO; SO and friend indicated that they would be fine now that they had each other; offer of future support as desired
--- NOTE | 2025-02-18 15:39 | CRPHASE1_ITS ---
Patient Communication Patient Information Former Patient:: Phase I PHII Cardiac Rehab Discussed with Patient:: Yes Guide to Cardiac Rehab Given to Patient:: Yes Cardiac Rehab Facility Choice List Given to Patient:: Yes Communication to Cardiac Rehab Nursing Coordinator:: Rodrigo Ceballos Sessions:: 36 sessions - 3 days/wk, 12 weeks Cardiac Rehabilitation Info Program Information Cardiac Rehabilitation Program Information: Cardiac Rehab The cardiac rehab team at [facility] consists of highly skilled exercise physiologists, nurses, respiratory therapists and physicians working together with you. Our purpose is to help you have a full recovery and achieve the goals you set for yourself. Over the years many of our patients have returned to activities they assumed they would never do again! We can help restore your confidence and motivation to make lifestyle changes that can have a significant impact on your health and quality of life! We can help answer questions and concerns you may have about exercise, lifestyle, medications, diet, stress and anxiety which are common following a hospitalization. WE monitor ECG and vital signs during exercise and discuss your progress with you and report to your physician(s). Cardiac Rehab is proven to help reduce readmissions, improve functional capacity and lower recurrence of problems with your heart. Our Cardiac Rehab program is Certified by the [place] [employer] of Cardio-Vascular and Pulmonary [employer] (AACVPR) and Accredited by the [place] [employer] through our [facility]. You can contact us at . We invite you to call us with your questions or to get started in our program. If you have other questions or concerns be sure to ask your physician/provider during your follow-up visit. WE look forward to seeing you!
--- NOTE | 2025-02-18 15:41 | CRPH1.INST_ITS ---
General Education Discussed with Patient CAD and cardiac anatomy and function:: Patient communicates acknowledgment Explanation of diagnoses and procedures:: Patient communicates acknowledgment Sign/Symptoms of [place]:: Patient communicates acknowledgment Antiplatelet therapy: Patient communicates acknowledgment Proper use of NTG-SL: Patient communicates acknowledgment Emergency procedures and activation of EMS: Patient communicates acknowledgment Compliance of all prescribed medications: Patient communicates acknowledgment Smoking Risk Factors Patient Nicotine/Smoking Risk Factors Are:: Cigarettes, Cigars and Second-hand smoke Recommendations Recommendations Include:: Smoking cessation strategies/Smoking packet, Second- hand smoke recommendation and Participation in a smoking cessation program Response Code Nicotine/Smoking Response Code:: Patient communicates acknowledgment Dyslipidemia Risk Factors Patient Dyslipidemia Risk Factors Are:: Total Cholesterol, Triglycerides, HDL and LDL Recommendations Recommendations Include:: Lipid profile not available, Reviewed NCEP/ATP guidelines and Therapeutic Lifestyle Change dietary guidelines Response Code Dyslipidemia Response Code:: Patient communicates acknowledgment Hypertension Recommendations Recommendations Include:: DASH dietary guidelines and Moderation of ETOH Response Code Hypertension:: Patient communicates acknowledgment Heart Disease Recommendations Recommendations Include:: Educated family members of their risk and Educated family members of importance of prevention of heart disease Response Code Heart Disease Response Code:: Patient communicates acknowledgment Metabolic Syndrome Risk Factors Patient Metabolic Syndrome Risk Factors Are [3 of 5]:: High triglyceride >150 and Low HDL <40 [male] or < 50 [female] Recommendations Recommendations Include:: Does not meet criteria, Reinforce compliance to risk factor modifications and Encouraged follow-up with Primary Care Physician Response Code Metabolic Syndrome Response Code:: Patient communicates acknowledgment Sedentary Risk Factors Patient Sedentary Risk Factors Are:: Lack of regular exercise Recommendations Recommendations Include:: Aerobic exercise 5-7 times/week for 20-30 minutes continuously, Benefits of regular exercise, Discussed home walking program and Monitored Outpatient Cardiac Rehab Response Code Sedentary Response Code:: Patient communicates acknowledgment Stress Risk Factors Patient Stress Risk Factors Are:: Patient denies stress as a risk factor Recommendations Recommendations Include:: Identification of stressors, and assessment of coping skills and Stress management techniques Response Code Stress Response Code:: Patient communicates acknowledgment
[2025-02-18 15:49] LABS: Absolute Lymphocyte Count 4.98 X10^3/uL (0.83-4.51); Absolute Neutrophil Count 7.6 X10^3/uL (2.0-7.7); Basophil# 0.12 X10^3/uL; Basophil% 0.9 % (0-1); Eosinophils% 2.8 % (0-5); Hematocrit 40.4 % (40-54); Hemoglobin 14.2 g/dL (13.0-16.5); Lymphocyte # 4.98 X10^3/ul (0.83-4.51); Lymphocyte % 35.4 % (19-41); Mean Corp Hgb Conc 35.1 g/dL (32-36); Mean Corpuscular Hgb 32.8 pg (27.0-32.0); Mean Corpuscular Volume 93.3 fL (80-94); Mean Platelet Vol. 10.9 fl (6.2-12.0); Monocyte# 0.96 X10^3/uL; Monocyte% 6.8 % (0-10); NRBC Flagged by Analyzer 0 % (0-5); Neutrophil # 7.57 X10^3/uL (2.7-7.7); Neutrophil % 53.7 % (47-70); POSITIVE MORPHOLOGY YES; Platelet Count 300 K/mm3 (150-450); RBC Distribution Width CV 13.2 % (11.6-14.6); RBC Distribution Width SD 45.2 fl (35.1-43.9); Red Blood Count 4.33 M/mm3 (4.6-6.2); White Blood Count 14.1 K/mm3 (4.4-11.0)
[2025-02-18 15:52] LABS: Differential Indicated SCAN CRITERIA MET
[2025-02-18] MEDS: 0.9% Normal Saline (1000mL) 1,000 ML 75 ML IV (16:00)
--- NOTE | 2025-02-18 16:19 | ECQM.STEMI ---
STEMI STEMI ED Door Time / Other REG STEMI EKG Time (1) STEMI (ST elevation myocardial infarction): Acute ~02/18/25 13:53 Balloon/Aspiration Date-Time Date of Balloon/Aspiration:: 02/18/25 Time of Balloon/Aspiration:: 14:23
[2025-02-18 16:23] LABS: Anion Gap 15 (5-15); BUN 16 mg/dL (4-19); BUN/Creat Ratio 12.6 RATIO (10-20); Carbon Dioxide 21.5 mmol/L (21.0-32.0); Chloride 104 mmol/L (98-108); Creatinine, Serum 1.27 mg/dL (0.70-1.20); EST Glomerular Filtration Rate 61 (>60); Estimated Creatinine Clearance 42.64 ml/min (50-250); Glucose 143 mg/dL (70-99); Sodium Level 141 mmol/L (133-145); Troponin T High Sensitivity 22 ng/L (<=22)
[2025-02-18 18:00] LABS: Differential Comment SCANNED; Platelet Estimate ADEQUATE (ADEQ)
[2025-02-18 18:20] LABS: Hemoglobin A1c 5.5 % (<=5.6)
[2025-02-18] MEDS: Clopidogrel Bisulfate 300 MG Tablet PO (20:11)
[2025-02-18 21:22] LABS: Troponin T High Sens 4 HR 1184 ng/L (<=22)
[2025-02-18] MEDS: Atorvastatin Calcium 40 MG Tablet PO (22:11)
--- OUTSIDE RECORDS SUMMARY | 2025-02-18 23:47 | XMS RPT_ITS | CCD ---
Author Organization [facility] Care Team Providers Care Mason Tender [employer] Labor Name Role Phone Panda Ba MD Unavailable Unavailable Primary Care Provider Unavailabl carline Guzman MD, Beejadi N Unavailable Thomas VEGA, Beejadi N Unavailable Apollo Melo MD Primary Care Provider Mona King RN Unavailable Unavailable Regino ABRAMS, Maliha Unavailable Maliha Lacy RN Unavailable Sean Rodriguez MD Unavailable Thomas VEGA, Beejadi N Unavailable Thomas VEGA, Beejadi N Unavailable Apollo Melo MD Primary Care Provider Maliha Lacy RN Unavailable Sean Rodriguez MD Unavailable Thomas VEGA, Beejadi N Unavailable Apollo Melo MD Primary Care Provider Maliha Lacy RN Unavailable Thomas VGEA, Beejadi N Unavailable Thomas VEGA, Beejadi N Unavailable Apollo Melo MD Primary Care Provider Maliha Lacy RN Unavailable Sean Rodriguez MD Unavailable Sean Rodriguez MD Unavailable Maliha Lacy RN Unavailable Francisco Javier Perez MD Unavailable APOLLO MELO Primary Care Unavailable CYDNEY WOLF Referring Unavailable Sean Rodriguez MD Unavailable Thomas VEGA, Beejadi N Unavailable Thomas VEGA, Beejadi N Unavailable Thomas VEGA, Beejadi N Unavailable Thomas VEGA, Beejadi N Unavailable Thomas VEGA, Beejadi N Unavailable Thomas VEGA, Beejadi N Unavailable Apollo Melo MD Primary Care Provider Mona King RN Unavailable Unavailable Thomas VEGA, Beejadi N Unavailable Thomas VEGA, Beejadi N Unavailable [place] CANDLE CUTTER.Sharda MIRELES Unavailable Gabe CANDLE CUTTER.CANDY SPREADER HELPER, Chavez Unavailable [place] CANDLE CUTTER.ALINE Sharda Unavailable APOLLO MELO Primary Care Unavailable SEAN RODRIGUEZ Referring Unavailable FRANCISCO JAVIER PEREZ Attending Unavailable KAMERON APOLLO D Primary Care Unavailable FRANCISCO JAVIER PEREZ Referring Unavailable KAMERON APOLLO Ifeanyi Primary Care Unavailable FRANCISCO JAVIER PEREZ Referring Unavailable KAMERON APOLLO Ifeanyi Primary Care Unavailable AMANDA CORONA Referring Unavailable ELDERBROCK, APOLLO Ifeanyi Primary Care Unavailable ELDERBROCK, APOLLO Ifeanyi Attending Unavailable OSCARBROSYLVIE, APOLLO Ifeanyi Primary Care Unavailable ELDERBROSYLVIE, APOLLO Ifeanyi Referring Unavailable ELDERBROCK, APOLLO D Primary Care Unavailable KAMERON, APOLLO D Primary Care Unavailable SEAN RODRIGUEZ Referring Unavailable FRANCISCO JAVIER PEREZ Attending Unavailable KAMERON, APOLLO Ifeanyi Primary Care Unavailable FRANCISCO JAVIER PEREZ Referring Unavailable OSCARBROSYLVIE, APOLLO D Primary Care Unavailable FRANCISCO JAVIER PEREZ Referring Unavailable OSCARBROSYLVIE, APOLLO D Primary Care Unavailable AMANDA CORONA Referring Unavailable AMANDA CORONA Attending Unavailable APOLLO MELO Primary Care Unavailable ELDERBROCK, APOLLO D Primary Care Unavailable SEAN RODRIGUEZ Referring Unavailable APOLLO MELO Primary Care Unavailable APOLLO MELO Primary Care Unavailable FRANCISCO JAVIER PEREZ Referring Unavailable APOLLO MELO Primary Care Unavailable AMANDA CORONA Referring Unavailable APOLLO MELO Primary Care Unavailable SEAN RODRIGUEZ Referring Unavailable FRANCISCO JAVIER PEREZ Attending Unavailable APOLLO MELO Primary Care Unavailable APOLLO MELO Attending Unavailable APOLLO MELO Primary Care Unavailable AMANDA CORONA Referring Unavailable AMANDA CORONA Attending Unavailable APOLLO MELO Primary Care Unavailable Kameron VEGA, Dr. Peña Primary Care Provider Tucker VEGA, Dr. Wallace Admit Provider Tucker VEGA, Dr. Wallace Attending Provider Tucker VEGA, Dr. Wallace Referring Provider [phone] Be VEGA, Dr. Ferrer Emergency Provider FRANCISCO JAVIER PEREZ Referring Unavailable APOLLO MELO Primary Care Unavailable Allergies Allergy Classification Reported Allergen(s) Allergy Type Date of Onset Reaction(s) Facility (20 sources) Doxycycline; Translations: [DOXYCYCLINE] Drug Allergy 12-30-[address] [facility] Medications Current Medications Medication Drug Class(es) Dates Sig (Normalized) Sig (Original) acetaminophen 325 mg / oxyCODONE hydrochloride 5 mg oral tablet (2 sources) Opioid Agonist Start: 09-01-2020 Oxycodone-Acetamin ophen 1 EACH tablet Active 1 NMA PO TWICE DAILY NEEDED as needed for Pain Score 1-10 September 01, 2020 1:00am take 1 tablet by biju th every four hours as needed for pain oxyCODONE-acetaminophen (PERCOCET) 5-325 MG per tablet Take 1 tablet by mouth every 4 hours as needed for Pain (1-10). 0 Active albuterol 0.833 mg/ml / ipratropium bromide 0.167 mg/ml inhalant solution (1 source) Anticholinergic, beta2-Adrenergic Agonist Start: 07-07-2020 ipratropium-albuterol (DUONEB) nebulizer solution 1 ampule allopurinol 300 mg oral tablet (1 source) Xanthine Oxidase Inhibitor Start: 09-01-2020 take 1 tablet by mouth once daily Allopurinol 300 MG tablet Active 300 mg PO DAILY September 01, 2020 1:00am bisacodyl 5 mg delayed release oral tablet (4 sources) Stimulant Laxative Start: 11-15-2021 End: 01-11-2022 Bisacodyl (DULCOLAX) 5 mg tab Use as directed for Miralax / Gatorade Bowel Prep Kit 4 tablet 0 11/15/2021 01/11/2022 Discontinued Comment on above: Use as directed for Miralax / Gatorade B owel Prep Kit 120 actuat budesonide 0.16 mg/actuat / formoterol fumarate 0.0045 mg/actuat metered dose inhaler (6 sources) Corticosteroid, beta2-Adrenergic Agonist Start: 06-24-2020 Budesonide-Formoterol 1 INHALER inhaler Active 2 NMA INHALATION TWICE A DAY June 24, 2020 12:00am Start: 05-20-2019 End: 06-23-2020 Budesonide-Formoterol 6 GM H FA aerosol inhaler Discontinued 6 g IH DIRECTED May 20, 2019 12:00am June 23, 2020 12:43pm Start: 03-29-2017 SYMBICORT 160- 4.5 MCG/ACT AERO BUDESONIDE-FORMOTEROL FUMARATE [id number] Panda Ba MD Start: 03-29-2017 SYMBICORT 160- 4.5 MCG/ACT AERO BUDESONIDE-FORMOTEROL FUMARATE [id number] Panda Ba MD take 2 puff(s) by in halation twice daily, then take 2 puff(s) by inhalation twice daily budesonide-formoterol (SYMBICORT) 160-4.5 MCG/ACT AERO Inhale 2 puffs into the lungs 2 times daily 2 Puffs INHALATION BID 0 Active Calcium Carbonate / vitamin D3 (20 sources) take 2 tablets by mo uth once daily calcium carbonate/vitamin D3 (CALCIUM 600 + D ORAL) Take 2 tablets by mouth once daily. Calcium 600mg+Vitamin D3 800 international units per tablet Active take 2 tablets by mouth once gurjit ly calcium carbonate/vitamin D3 (CALCIUM 600 + D ORAL) Take 2 tablets by mouth once daily. Calcium 600mg+Vitamin D3 800 international units per tablet 0 Active Comment on above: Take [address] [facility] once daily. Calcium 600mg+Vitamin D3 800 international units per tablet calcium chloride 0.0014 meq/ml / potassium chloride 0.004 meq/ml / sodium chloride 0.103 meq/ml / sodium lactate 0.028 meq/ml injectable solution (1 source) Start: 07-07-20 lactated ringers infusion cilostazol 100 mg oral tablet (20 sources) Phosphodiesterase 3 Inhibitor Start: 08-31-20 End: 09-19-19 take 1 tablet by mouth twice daily cilostazol (PLETAL) 100 mg tablet Indications: Peripheral arterial disease Take 1 tablet by mouth twice daily 180 tablet 09/03/2024 Active Start: 08-17-2021 End: 08-26-2022 take 1 tablet by mouth twice daily cilostazol (PLETAL) 100 mg tablet Indications: Peripheral arterial disease (HCC) Take 1 tablet by mouth twice daily. 180 tablet 3 08/17/2021 08/26/2022 Discontinued Start: 02-23-2021 End: 05-24-2021 take 1 tablet by mouth twice daily cilostazol (PLETAL) 100 mg tablet Take 1 tablet by mouth twice daily. 180 tablet 02/23/2021 05/24/2021 Comment on above: Take 1 tablet by [facility] twice daily. Take 100 mg by mouth twice daily. Take 1 tablet by [facility] two times a day. docusate sodium 100 mg oral capsule (20 sources) take 1 capsule by mouth once daily as needed for constipation docusate sodium (COLACE) 100 mg capsule Take 100 mg by mouth once daily as needed for constipation. Active Comment on above: Take 100 mg by mouth once daily as needed for constipation. 0.4 ml enoxaparin sodium 100 mg/ml prefilled syringe (1 source) Low Molecular Weight Heparin Start: 0 enoxaparin (LOVENOX) injection 40 mg enteric contrast (will be provided with radiology test) (3 sources) Start: 5 End: 5 enteric contrast (will be provided with radiology test) Indications: Lesion of liver , Diffuse large B-cell lymphoma of intra-abdominal lymph nodes (HCC) For CT ABD/PEL W IVCON Routine order Administer, As Directed One Time Only, via Oral, Rectal, both Oral and Rectal, Enteric Tube, Stoma or Indwelling Catheter, Enteric Contrast as designated per enteric contrast guidelines 1 each 12/19/2024 12/20/2024 Active Start: 08-29-2022 End: 08-30-2022 enteric contrast (will be pr ovided with radiology test) Indications: Diffuse large B-cell lymphoma of intra-abdominal lymph nodes (HCC) For CT ABD/PEL W IVCON Routine order Administer, As Directed One Time Only, via Oral, Rectal, both Oral and Rectal, Enteric Tube, Stoma or Indwelling Catheter, Enteric Contrast as designated per enteric contrast guidelines 1 Each 0 08/29/2022 08/30/2022 Active Start: 06-28-2022 End: 06-29-2022 enteric contrast (will be pr ovided with radiology test) Indications: Diffuse large B-cell lymphoma of intra-abdominal lymph nodes (HCC) , Bone metastasis (HCC) , Prostate cancer (HCC) , Langerhans cell histiocytoses (HCC) For CT ABD/PEL W IVCON Routine order Administer, As Directed One Time Only, via Oral, Rectal, both Oral and Rectal, Enteric Tube, Stoma or Indwelling Catheter, Enteric Contrast as designated per enteric contrast guidelines 1 Each 0 06/28/2022 06/29/2022 Active Comment on above: For CT ABD/PEL W IVC ON Routine order Administer, As Directed One Time Only, via Oral, Rectal, both Oral and Rectal, Enteric Tube, Stoma or Indwelling Catheter, Enteric Contrast as designated per enteric contrast guidelines enzalutamide 40 mg oral tablet (20 sources) Androgen Receptor Inhibitor Start: End: 5 take 4 tablets by mouth once daily enzalutamide (XTANDI) 40 mg tablet Take 4 tablets (160 mg) by mouth once daily. 120 tablet 11 10/01/2024 Active Start: 11-30-2022 End: 09-19-2023 take 4 tablets by mouth once daily enzalutamide (XTANDI) 40 mg tablet Take 4 tablets (160 mg) by mouth once daily. 120 tablet 3 11/30/2022 09/19/2023 Discontinued Comment on above: Take 4 tablets (160 mg) by mouth once daily. 72 hr fentaNYL 0.025 mg/hr transdermal system (1 source) Opioid Agonist fentaNYL (DURAGE SIC) 25 MCG/HR Place 1 patch onto the skin every 72 hours. 0 Active Fentanyl 1 EACH Patch.Td72 (1 source) Start: 09-01-2020 Fentanyl 1 EACH Patch.Td72 Active 25 ug TOPICAL Q72H September 01, 2020 1:00am 30 actuat fluticasone furoate 0.2 mg/actuat / vilanterol 0.025 mg/actuat dry powder inhaler (20 sources) Corticosteroid, beta2-Adrenergic Agonist Start: 02-18-2025 Fluticasone Furoate-Vilanterol [Fluticasone Furoate 200 Mcg-Vilanterol 25 Mcg/Dose Inhalation Powder] (Fluticasone Furoate 200 Mcg-Vilanterol 25 ) 200-25 mcg/dose blister with device Active 1 NMA INHALATION DAILY February 18, 2025 12:00am Start: 07-04-2024 End: 09-17-2024 take 1 dose by inhalation once daily BREO ELLIPTA 200-25 mcg/dose inhaler Indications: Chronic obstructive pulmonary disease, unspecified COPD type (HCC) Inhale 1 Inhalation as instructed once daily. 60 Each 11 09/17/2024 Active Start: 06-29-2023 End: 07-04-2024 take 1 puff(s) by mouth once daily BREO ELLIPTA 200-25 mcg/dose inhaler Indications: Chronic obstructive pulmonary disease, unspecified COPD type (HCC) INHALE 1 PUFF BY MOUTH ONCE DAILY DIRECTED. DO NOT CLICK OPEN UNTIL READY FOR DOSE 60 Each 06/29/2023 07/04/2024 Discontinued Start: 01-09-2021 End: 06-29-2023 take 1 puff(s) by inhalation once daily fluticasone-vilanterol (BREO ELLIPTA) 200-25 mcg/dose inhaler Indications: Chronic obstructive pulmonary disease, unspecified COPD type (HCC) Inhale 1 Inhalation as instructed once daily. Inhale one puff once daily. DO NOT CLICK OPEN UNTIL READY FOR DOSE 1 Each 07/04/2022 06/29/2023 Discontinued Comment on above: Inhale 1 Inhalation as instructed once daily. Inhale one puff once daily. DO NOT CLICK OPEN UNTIL READY FOR DOSE INHALE 1 PUFF BY BIJU TH ONCE DAILY DIRECTED. DO NOT CLICK OPEN UNTIL READY FOR DOSE 60 actuat formoterol fumarate 0.005 mg/actuat / mometasone furoate 0.2 mg/actuat metered dose inhaler (1 source) Corticosteroid, beta2-Adrenergic Agonist Start: 0 take 2 puff(s) by inhalation twice daily 2 puff, Inhalation, 2 TIMES DAILY, First dose on Mon07/07/20 at 2245 Substituted for Budesonide-Formotero l (SYMBICORT). Gatorade Sports Drink (4 sources) Start: 2 End: Gatorade Sports Drink Use as directed for Miralax / Gatorade Bowel Prep Kit 0 11/15/2021 01/11/2022 Discontinued Start: 11-15-2021 Gatorade Sport s Drink Use as directed for Miralax / Gatorade Bowel Prep Kit 0 11/15/2021 Active Comment on above: Use as directed for Miralax / Gatorade Bowel Prep Kit hydrocortisone 10 mg/ml topical cream (20 sources) Corticosteroid Start: 10-03-2020 End: 07-16-2024 hydrocortisone (PROCTO-CHEN) 1 % crpe Indications: Internal hemorrhoids 1 application by RECTAL route two times a day as needed. 28.4 g 2 07/16/2024 Active Comment on above: 1 application by REC MICHEAL route twice daily as needed. 1 application by REC MICHEAL route two times a day as needed. iv contrast (will be provided with radiology test) (4 sources) Start: 12-19-2024 End: 12-20-2024 iv contrast (will be provided with radiology test) Indications: Lesion of liver , Diffuse large B-cell lymphoma of intra-abdominal lymph nodes (HCC) CT ABD/PEL -Inject, intravenously, once for 1 dose.No IV access, insert saline lock prior to the beginning of sedation, infusion, injection of imaging exam. Discontinue saline lock post exam. If Pt. has a central line or IVAD, may access for administration according to line specific nursing protocol. Once exam is complete flush line and de-access according to line specific nursing protocol in the CT contrast administration guidelines link. 1 each 12/19/2024 12/20/2024 Active Start: 11-26-2024 End: 11-27-2024 inject 1 dose intravenously once iv contrast (will be provided with radiology test) CTA ABD/PEL LE - No IV access, insert saline lock prior to the sedation, infusion, injection for imaging exam. Discontinue saline lock post exam. If Pt. has a central line or IVAD, may access for administration according to line specific nursing protocol. Once exam is complete flush line and de-access according to line specific nursing protocol in the CT contrast administration guidelines link. 1 Each 11/26/2024 11/27/2024 Active Start: 08-29-2022 End: 08-30-2022 iv contrast (will be provide d with radiology test) Indications: Diffuse large B-cell lymphoma of intra-abdominal lymph nodes (HCC) CT ABD/PEL -Inject, intravenously, once for 1 dose.No IV access, insert saline lock prior to the beginning of sedation, infusion, injection of imaging exam. Discontinue saline lock post exam. If Pt. has a central line or IVAD, may access for administration according to line specific nursing protocol. Once exam is complete flush line and de-access according to line specific nursing protocol in the CT contrast administration guidelines link. 1 Each 0 08/29/2022 08/30/2022 Active Start: 06-28-2022 End: 06-29-2022 iv contrast (will be provide d with radiology test) Indications: Diffuse large B-cell lymphoma of intra-abdominal lymph nodes (HCC) , Bone metastasis (HCC) , Prostate cancer (HCC) , Langerhans cell histiocytoses (HCC) CT ABD/PEL -Inject, intravenously, once for 1 dose.No IV access, insert saline lock prior to the beginning of sedation, infusion, injection of imaging exam. Discontinue saline lock post exam. If Pt. has a central line or IVAD, may access for administration according to line specific nursing protocol. Once exam is complete flush line and de-access according to line specific nursing protocol in the CT contrast administration guidelines link. 1 Each 0 06/28/2022 06/29/2022 Active Comment on above: CT ABD/PEL -Inject, intravenously, once for 1 dose.No IV access, insert saline lock prior to the beginning of sedation, infusion, injection of imaging exam. Discontinue saline lock post exam. If Pt. has a central line or IVAD, may access for administration according to line specific nursing protocol. Once exam is complete flush line and de-access according to line specific nursing protocol in the CT contrast administration guidelines link. 4 ml labetalol hydrochloride 5 mg/ml cartridge (2 sources) beta-Adrenergic Jagdish Start: 07-07-20 End: 07-07-20 labetalol (NORMODYNE;TRANDATE ) injection 10 mg melatonin 3 mg oral tablet (1 source) Start: 07-07-20 20 melatonin tablet 3 mg Multivitamin preparation (20 sources) take 1 capsule by mouth once daily multivitamin (MULTIPLE VITAMINS ORAL) Take 1 capsule by mouth once daily. Active take 1 capsule by mouth once gurjit ly multivitamin (MULTIPLE VITAMINS ORAL) Take 1 capsule by mouth once daily. 0 Active Comment on above: Take 1 capsule by [facility] once daily. 24 hr nicotine 0.875 mg/hr transdermal system (1 source) Cholinergic Nicotinic Agonist Start: 0 nicotine (NICODERM CQ) 21 MG/24HR 1 patch ondansetron 8 mg oral tablet (1 source) Serotonin-3 Receptor Antagonist Start: 0 take 1 tablet by mouth every eight hours as needed for nausea Ondansetron Hcl 8 MG tablet Active 8 mg PO EVERY 8 HOURS NEEDED as needed for nausea, emesis September 04, 2020 1:00am oxyCODONE (1 source) Opioid Agonist Start: 0 oxyCODONE (ROXICODONE) immediate release tablet 5 mg polyethylene glycol 3350 05600 mg powder for oral solution (5 sources) Osmotic Laxative Start: 2 End: 2 polyethylene glycol 3350 (MIRALAX, GLYCOLAX) 17 gram/dose powder Use as directed for Miralax / Gatorade Bowel Prep Kit 238 g 0 11/15/2021 01/11/2022 Discontinued Start: 07-07-2020 polyethylene g lycol (GLYCOLAX) packet 17 g Comment on above: Use as directed for Miralax / Gatorade Bowel Prep Kit Promethazine (1 source) Phenothiazine Start: 07-07-20 20 promethazine (PHENERGAN) tablet 12.5 mg 3 ml sodium chloride 9 mg/ml injection (2 sources) Start: 07-07-20 20 sodium chloride flush 0.9 % injection 10 mL 24 hr tolterodine tartrate 4 mg extended release oral capsule (20 sources) Cholinergic Muscarinic Antagonist Start: 02-26-20 End: 07-15-20 take 1 capsule by mouth once daily tolterodine ER (DETROL LA) 4 mg 24 hr capsule Take 1 capsule by mouth once daily. 30 capsule 5 02/25/2022 07/15/2022 Discontinued Comment on above: Take 1 capsule by [facility] once daily. Completed/Discontinued Medications Medication Drug Class(es) Dates Sig (Normalized) Sig (Original) abiraterone acetate 250 mg oral tablet (20 sources) Cytochrome P450 17A1 Inhibitor Start: 03-07-2022 End: 11-30-2022 take 4 tablets by mouth once daily abiraterone (ZYTIGA) 250 mg tablet Take 4 tablets (1000mg) by mouth once daily. Take on an empty stomach, at least 1 hour before or 2 hours after eating. 120 tablet 0 03/07/2022 11/30/2022 Discontinued Comment on above: Take 4 tablets by [facility] once daily. Take 4 tablets (1000 mg) by mouth once daily. Take on an empty stomach, at least 1 hour before or 2 hours after eating. acetaminophen 325 mg / HYDROcodone bitartrate 5 mg oral tablet (2 sources) Opioid Agonist Start: 06-26-2020 End: 06-28-2020 Hydrocodone-Acetam inophen 1 TABLET tablet Discontinued 1 {tbl} PO EVERY 4 HOURS NEEDED as needed for Pain 06 12June 26, 2020 June 27, 2020 12:00am June 28, 2020 12:03am Start: 06-14-2020 End: 06-16-2020 Hydrocodone-Acetaminophen 1 TABLET tablet Discontinued 1 {tbl} PO EVERY 4 HOURS NEEDED as needed for Pain 06 12June 14, 2020 June 15, 2020 12:00am June 16, 2020 12:03am albuterol 0.83 mg/ml inhalation solution (20 sources) beta2-Adrenergic Agonist Start: 05-20-2019 End: 06-23-2020 Albuterol Sulfate 2.5 MG/3 ML solution for nebulization Discontinued 2 NMA PO TWICE A DAY May 20, 2019 10:37am June 23, 2020 12:42pm Start: 11-26-2018 End: 05-20-2019 take 2.5 mg by inhalation every four hours Albuterol Sulfate 2.5 MG/3 ML solution for nebulization Discontinued 2.5 mg Inhalation EVERY 4 HOURS WHILE AWAKE November 26, 2018 12:00am May 20, 2019 10:37am Start: 03-29-2017 ALBUTEROL SULF ATE 1.25 MG/3ML NEBU as needed ALBUTEROL SULFATE [id number] Panda Ba MD Start: 12-04-2015 End: 07-16-2024 take 2 puff(s) by inhalation every four hours as needed albuterol HFA (PROAIR HFA) 90 mcg/actuation inhaler Indications: Chronic obstructive pulmonary disease, unspecified COPD type (HCC) Inhale 2 Puffs as instructed every 4 hours as needed. 1 Inhaler 11 12/04/2015 07/16/2024 Discontinued (Course of therapy completed) take 2 puff(s) by in halation every six hours as needed for wheezing, then take 1 puff(s) by inhalation every six hours as needed for wheezing albuterol sulfate HFA (VENTOLIN HFA) 108 (90 Base) MCG/ACT inhaler Inhale 2 puffs into the lungs every 6 hours as needed for Wheezing 1 Puff INHALATION Q6H PRN 0 Active Comment on above: Inhale 2 Puffs as in structed every 4 hours as needed. amoxicillin 875 mg / clavulanate 125 mg oral tablet (1 source) Penicillin-class Antibacterial Start: 0 End: 1 Amoxicillin-Pot Clavulanate 1 EACH tablet Discontinued 1 NMA PO TWICE A DAY 16 8 September 04, 2020 1:00am September 11, 2020 1:00am September 12, 2020 1:03am aspirin 81 mg delayed release oral tablet (20 sources) Platelet Aggregation Inhibitor, Nonsteroidal Anti-inflammatory Drug Start: 8 End: 0 take 1 tablet by mouth once daily Aspirin 81 MG tablet,delayed release (DR/EC) Discontinued 81 mg PO DAILY July 12, 2018 12:00am June 23, 2020 12:43pm Comment on above: Take 81 mg by mouth once daily. calcium carbonate 1500 mg oral tablet (2 sources) Start: 9 End: 0 take 1 tablet by mouth twice daily Calcium Carbonate 600 MG tablet Discontinued 600 mg PO TWICE A DAY August 19, 2019 1:00am June 23, 2020 12:43pm take 1 tablet by mouth once odin y calcium carbonate (OSCAL) 500 MG TABS tablet Take 500 mg by mouth daily 0 Active cholecalciferol 0.025 mg oral tablet (1 source) Vitamin D Start: 11-19-2019 End: 06-23-2020 take 1 tablet by mouth once daily Cholecalciferol (Vitamin D3) 1,000 UNIT tablet Discontinued 1000 U PO DAILY November 19, 2019 12:00am June 23, 2020 12:43pm cholecalciferol, vitamin D3, (VITAMIN D3 ORAL) (20 sources) End: 07-15-2022 take 1 capsule by mouth twice daily cholecalciferol, vitamin D3, (VITAMIN D3 ORAL) Take 1 capsule by mouth twice daily. 07/15/2022 Discontinued End: 07-15-2022 take 1 capsule by mouth twice daily cholecalciferol, vitamin D3, (VITAMIN D3 ORAL) Take 1 capsule by mouth twice daily. 0 07/15/2022 Discontinued take 1 capsule by mo uth twice daily cholecalciferol, vitamin D3, (VITAMIN D3 ORAL) Take 1 capsule by mouth twice daily. 0 Active take 1 capsule by mo uth once daily cholecalciferol, vitamin D3, (VITAMIN D3 ORAL) Take 1 capsule by mouth once daily. 0 Active Comment on above: Take 1 capsule by mo uth once daily. Take 1 capsule by mo uth twice daily. gabapentin 100 mg oral capsule (3 sources) Anti-epileptic Agent Start: 05-19-20 End: 07-17-20 take 1 capsule by mouth once daily at bedtime gabapentin (NEURONTIN) 100 mg capsule Take 1 capsule by mouth daily at bedtime for 30 days. 30 capsule 0 05/19/2023 07/17/2023 Discontinued Comment on above: Take 1 capsule by mo uth daily at bedtime for 30 days. iopamidol (ISOVUE-370) 76 % injection 75 mL (1 source) Start: 07-08-20 End: 07-08-20 iopamidol (ISOVUE-370) 76 % injection 75 mL 1.5 ml leuprolide acetate 15 mg/ml prefilled syringe (5 sources) Gonadotropin Releasing Hormone Receptor Agonist Start: 12-20-19 End: 12-20-19 inject 1 dose by intramuscular injection once 22.5 mg, INTRAMUSCULAR, ONCE, 1 dose, On Latisha 12/19/24 at 1000, Hazardous Chemotherapy Drug: Use appropriate PPE. Start: 09-26-2024 End: 09-26-2024 inject 1 dose by intramuscular injection once 22.5 mg, INTRAMUSCULAR, ONCE, 1 dose, On Latisha 09/26/24 at 1000, Hazardous Chemotherapy Drug: Use appropriate PPE. Start: 07-04-2024 End: 07-04-2024 inject 1 dose by intramuscular injection once 22.5 mg, INTRAMUSCULAR, ONCE, 1 dose, On Latisha 07/04/24 at 1000, Hazardous Chemotherapy Drug: Use appropriate PPE. Start: 04-11-2024 End: 04-11-2024 leuprolide 22.5 mg injection (LUPRON DEPOT) Start: 01-18-2024 End: 01-18-2024 leuprolide 22.5 mg injection (LUPRON DEPOT) 24 hr mirabegron 25 mg extended release oral tablet (20 sources) beta3-Adrenergic Agonist Start: 09-19-2022 End: 07-17-2023 take 1 tablet by mouth once daily mirabegron (MYRBETRIQ) 25 mg Tb24 Take 1 tablet by mouth once daily. 30 tablet 5 09/19/2022 07/17/2023 Discontinued Comment on above: Take 1 tablet by mouth once daily. omeprazole 40 mg delayed release oral capsule (1 source) Proton Pump Inhibitor Start: 06-14-2020 End: 06-23-2020 take 1 capsule by mouth once daily Omeprazole 40 MG capsule,delayed release(DR/EC) Discontinued 40 mg PO DAILY June 14, 2020 12:00am June 23, 2020 12:43pm 24 hr oxybutynin chloride 5 mg extended release oral tablet (4 sources) Cholinergic Muscarinic Antagonist Start: 01-11-2022 End: 02-25-2022 take 1 tablet by mouth once daily oxybutynin XL (DITROPAN XL) 5 mg 24 hr tablet Indications: Urinary incontinence, unspecified type Take 1 tablet by mouth once daily. 30 tablet 5 01/11/2022 02/25/2022 Discontinued Comment on above: Take 1 tablet by mouth once daily. predniSONE 5 mg oral tablet (20 sources) Start: 03-07-2022 End: 07-17-2023 take 0.5 tablet by mouth twice daily at mealtime predniSONE (DELTASONE) 5 mg tablet Take 0.5 tablets (2.5mg) by mouth twice daily. Take with food. 30 tablet 2 08/11/2022 07/17/2023 Discontinued Comment on above: Take 0.5 tablets by mouth twice daily. Take 0.5 tablets (2. 5mg) by mouth twice daily. Take with food. 100 ml zoledronic acid 0.04 mg/ml injection (5 sources) Bisphosphonate Start: 12-19-2024 End: 12-19-2024 4 mg, INTRAVENOUS, Administer over 15 Minutes, ONCE, 1 dose, On [facility] 12/19/24 at 1030, Hazardous Potential Reproductive Risk Drug: Use appropriate PPE. Start: 09-26-2024 End: 09-26-2024 4 mg, INTRAVENOUS, Administe r over 15 Minutes, ONCE, 1 dose, On [facility] 09/26/24 at 1000, Hazardous Potential Reproductive Risk Drug: Use appropriate PPE. Start: 07-04-2024 End: 07-04-2024 4 mg, INTRAVENOUS, Administe r over 15 Minutes, ONCE, 1 dose, On [facility] 07/04/24 at 1000, Hazardous Potential Reproductive Risk Drug: Use appropriate PPE. Start: 04-11-2024 End: 04-11-2024 zoledronic rx-dmsjnuvo-4.9Na Cl 4 mg iv piggyback 100 mL (ZOMETA) Start: 01-18-2024 End: 01-18-2024 zoledronic ap-jqhkkgfh-6.9Na Cl 4 mg iv piggyback 100 mL (ZOMETA) Problems Active Problems Problem Classification Problem Date Documented Da te Episodic/Chronic Acute myocardial infarction (2 sources) Acute myocardial infarction of inferior wall; Translations: [ST elevation (STEMI) myocardial infarction involving other coronary artery of inferior wall] 02-18-2025 Chronic Biliary tract disease (2 sources) Obstructive hyperbilirubinemia; Translations: [Obstructive jaundice] Onset: 07-07-2020 07-08-2020 Episodic Cancer of prostate (20 sources) Malignant tumor of prostate; Translations: [Malignant neoplasm of prostate] Onset: 01-02-2012 Chronic Cancer of prostate (2 sources) History of malignant neoplasm of prostate; Translations: [Personal history of malignant neoplasm of prostate] 02-18-2025 Episodic Cancer; other and unspecified primary (20 sources) Langerhans cell histiocytosis; 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] Onset: 07-16-2021 07-16-2021 Chronic Chronic obstructive pulmonary disease and bronchiectasis (20 sources) Chronic obstructive lung disease; Translations: [Chronic obstructive pulmonary disease, unspecified] Onset: 12-30-2009 12-30-2009 Chronic Conditions associated with dizziness or vertigo (1 source) Dizziness; Translations: [Dizziness and giddiness] 01-26-2024 Episodic Diabetes mellitus without complication (6 sources) Increased glucose level; Translations: [Other abnormal glucose] Onset: 01-14-2025 01-26-2024 Episodic Disorders of lipid metabolism (20 sources) Hyperlipidemia; Translations: [Hyperlipidemia, unspecified] Onset: 08-17-2012 08-17-2012 Chronic Diverticulosis and diverticulitis (1 source) Diverticulitis; Translations: [Diverticulitis of intestine, part unspecified, without perforation or abscess without bleeding] 09-01-2020 Chronic Esophageal disorders (1 source) Foreign body sensation; Translations: [Sensation of foreign body in esophagus] 06-11-2020 Episodic Essential hypertension (2 sources) Hypertensive disorder; Translations: [Hypertension] Onset: 07-08-2020 07-08-2020 Chronic Gastritis and duodenitis (1 source) Gastritis; Translations: [Gastritis, unspecified, without bleeding] 06-15-2020 Episodic Genitourinary symptoms and ill-defined conditions (20 sources) Urinary incontinence; Translations: [Unspecified urinary incontinence] Onset: 01-11-2022 Chronic Hemorrhoids (3 sources) Internal hemorrhoids; Translations: [Other hemorrhoids] Episodic Hepatitis (1 source) Viral hepatitis C; Translations: [Unspecified viral hepatitis C without hepatic coma] 09-01-2020 Episodic Hyperplasia of prostate (20 sources) Benign prostatic hyperplasia; Translations: [Benign prostatic hyperplasia without lower urinary tract symptoms] Onset: 10-20-2011 10-20-2011 Chronic Immunizations and screening for infectious disease (1 source) Suspected disease caused by 2019-nCoV; Translations: [Suspected COVID-19 virus infection] 05-10-2021 Episodic Non-Hodgkin`s lymphoma (20 sources) Non-Hodgkin's lymphoma (clinical); Translations: [Non-Hodgkin lymphoma, unspecified, intra-abdominal lymph nodes] Onset: 07-10-2020 07-15-2020 Chronic Nonspecific chest pain (2 sources) Acute chest pain; Translations: [Chest pain, unspecified] 02-18-2025 Episodic Occlusion or stenosis of precerebral arteries (3 sources) Asymptomatic carotid artery stenosis; Translations: [Occlusion and stenosis of unspecified carotid artery] Onset: 02-17-2025 11-26-2024 Chronic Other and unspecified benign neoplasm (1 source) History of polyp of colon; Translations: [Personal history of colonic polyps] Episodic Other bone disease and musculoskeletal deformities (1 source) Osteopenia; Translations: [Other specified disorders of bone density and structure, unspecified site] 06-23-2020 Episodic Other connective tissue disease (1 source) Pain in right thigh; Translations: [Pain of right thigh] Onset: 05-16-2023 Episodic Other connective tissue disease (3 sources) Pain of right thigh; Translations: [Pain in right thigh] 05-16-2023 Episodic Other diseases of bladder and urethra (20 sources) Hypertrophy of bladder; Translations: [Other specified disorders of bladder] Onset: 10-20-2011 10-20-2011 Chronic Other diseases of bladder and urethra (20 sources) Urethrorectal fistula; 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] Onset: 02-23-2012 02-23-2012 Chronic Other liver diseases (20 sources) Lesion of liver; Translations: [Liver disease, unspecified] Onset: 06-10-2021 06-10-2021 Chronic Other liver diseases (1 source) Liver disease, unspecified; Translations: [Lesion of liver] Onset: 06-10-2021 Chronic Other liver diseases (2 sources) Enzyme level - finding; Translations: [Transaminitis] Onset: 07-08-2020 07-08-2020 Episodic Other lower respiratory disease (2 sources) History of chronic obstructive airway disease; Translations: [Personal history of other diseases of the respiratory system] 02-18-2025 Episodic Other nervous system disorders (1 source) Cold hands; Translations: [Unspecified disturbances of skin sensation] 07-17-2023 Episodic Other non-epithelial cancer of skin (3 sources) Basal cell carcinoma of upper extremity; Translations: [Basal cell carcinoma of skin of unspecified upper limb, including shoulder] Onset: 03-29-2017 03-30-2017 Chronic Other non-traumatic joint disorders (1 source) Finger joint locking; Translations: [Other specific joint derangements of unspecified hand, not elsewhere classified] 07-17-2023 Chronic Other nutritional; endocrine; and metabolic disorders (1 source) Weight loss; Translations: [Abnormal weight loss] 01-26-2024 Episodic Other screening for suspected conditions (not mental disorders or infectious disease) (2 sources) Increased bilirubin level; Translations: [Elevated bilirubin] Onset: 07-08-2020 07-08-2020 Chronic Other screening for suspected conditions (not mental disorders or infectious disease) (20 sources) Raised prostate specific antigen; Translations: [Elevated prostate specific antigen [PSA]] Onset: 10-20-2011 Resolved: 08-06-2014 05-09-2016 Episodic Other skin disorders (3 sources) Skin lesion; Translations: [Disorder of the skin and subcutaneous tissue, unspecified] Episodic Peripheral and visceral atherosclerosis (20 sources) Peripheral vascular disease, unspecified; Translations: [Peripheral vascular disease, unspecified] Onset: 01-19-2021 01-19-2021 Chronic Residual codes; unclassified (2 sources) Chronic pain; Translations: [Chronic pain] Onset: 07-08-2020 07-08-2020 Chronic Residual codes; unclassified (1 source) Tobacco user; Translations: [Tobacco use] Episodic Secondary malignancies (20 sources) Secondary malignant neoplasm of bone; Translations: [Secondary malignant neoplasm of bone] Onset: 07-16-2021 07-16-2021 Chronic Secondary malignancies (2 sources) Secondary malignant neoplasm of bone; Translations: [Malignant neoplasm metastatic to bone (HCC)] Onset: 12-13-2022 Chronic Secondary malignancies (1 source) Regional lymph node metastasis present ; Translations: [Secondary and unspecified malignant neoplasm of lymph node, unspecified] 06-23-2020 Chronic Substance-related disorders (20 sources) Tobacco user; Translations: [Nicotine dependence, unspecified, uncomplicated] Onset: 09-15-2008 09-15-2008 Chronic Past or Other Problems Problem Classification Problem Date Documented Da te Episodic/Chronic Genitourinary symptoms and ill-defined conditions (20 sources) Retention of urine; Translations: [Retention of urine, unspecified] Onset: 10-20-2011 10-20-2011 Episodic Nutritional deficiencies (20 sources) Deficiency of macronutrients; Translations: [Unspecified protein-calorie malnutrition] Onset: 01-13-2023 Resolved: 07-17-2023 Chronic Other diseases of kidney and ureters (20 sources) Cyst of kidney; Translations: [Cyst of kidney, acquired] Onset: 10-20-2011 10-20-2011 Episodic Other infections; including parasitic (20 sources) History of hepatitis C; Translations: [Personal history of other infectious and parasitic diseases] Onset: 07-13-2020 07-15-2020 Episodic Other liver diseases (20 sources) Jaundice; Translations: [Unspecified jaundice] Onset: 07-09-2020 07-13-2020 Episodic Other liver diseases (20 sources) Elevated liver enzymes level; Translations: [Elevated liver transaminase level] Onset: 07-10-2020 07-15-2020 Episodic Residual codes; unclassified (20 sources) Pain; Translations: [Pain, unspecified] Onset: 07-10-2020 07-15-2020 Episodic Results Test Name Value Interpretation Reference Range Facility Comprehensive metabolic 2000 panelon 02-17-2025 Albumin [Mass/Vol] 4.4 g/dL Normal 3.9-4.9 [facility] Comment on above: Order Comment: Hollis gastelum Type: BLOOD SPECIMEN Ordering Facility: [facility] Address: [address] [place] [address] Performed By: #### 2 4323-8 #### [facility] CLIA [id number] [address] ALP [Catalytic activity/Vol] 68 U/L Normal 38-113 [facility] Comment on above: Order Comment: Hollis gastelum Type: BLOOD SPECIMEN Ordering Facility: [facility] Address: [address] [place] [address] Performed By: #### 2 4323-8 #### [facility] CLIA [id number] [address] ALT [Catalytic activity/Vol] 10 U/L Normal 10-54 [facility] Comment on above: Order Comment: Hollis gastelum Type: BLOOD SPECIMEN Ordering Facility: [facility] Address: [address] [place] [address] Performed By: #### 2 4323-8 #### [facility] CLIA [id number] [address] Anion gap [Moles/Vol] 11 mmol/L Normal 8-15 [facility] Comment on above: Order Comment: Speci men Type: BLOOD SPECIMEN Ordering Facility: [facility] Address: [address] [place] [address] Performed By: #### 2 4323-8 #### [facility] CLIA [id number] [address] [place] [address] [place] AST [Catalytic activity/Vol] 21 U/L Normal 14-40 [facility] Comment on above: Order Comment: Speci men Type: BLOOD SPECIMEN Ordering Facility: [facility] Address: [address] [place] [address] Performed By: #### 2 4323-8 #### [facility] CLIA [id number] [address] [place] [address] [place] Bilirubin [Mass/Vol] 0.6 mg/dL Normal 0.2-1.3 [facility] Comment on above: Order Comment: Speci men Type: BLOOD SPECIMEN Ordering Facility: [facility] Address: [address] [place] [address] Performed By: #### 2 4323-8 #### [facility] CLIA [id number] [address] [place] [address] [place] Calcium [Mass/Vol] 9.2 mg/dL Normal 8.5-10.2 [facility] Comment on above: Order Comment: Speci men Type: BLOOD SPECIMEN Ordering Facility: [facility] Address: [address] [place] [address] Performed By: #### 2 4323-8 #### [facility] CLIA [id number] [address] [place] [address] [place] Chloride [Moles/Vol] 105 mmol/L Normal 98-107 [facility] Comment on above: Order Comment: Speci men Type: BLOOD SPECIMEN Ordering Facility: [facility] Address: [address] [place] [address] Performed By: #### 2 4323-8 #### [facility] CLIA [id number] [address] [place] [address] [place] CO2 [Moles/Vol] 25 mmol/L Normal 22-30 [facility] Comment on above: Order Comment: Speci men Type: BLOOD SPECIMEN Ordering Facility: [facility] Address: [address] [place] [address] Performed By: #### 2 4323-8 #### [facility] CLIA [id number] [address] [place] [facility] Creatinine [Mass/Vol] 0.92 mg/dL Normal 0.73-1.22 [facility] Comment on above: Order Comment: Specvicki gastelum Type: BLOOD SPECIMEN Ordering Facility: [facility] Address: [address] [place] [address] Performed By: #### 2 4323-8 #### [facility] CLIA [id number] [address] Creatinine and Glomerular filtration rate.predicted panel (S/P/Bld) 89 mL/min/1.73m??? Normal >=60 [facility] Comment on above: Order Comment: Hollis gastelum Type: BLOOD SPECIMEN Ordering Facility: [facility] Address: [address] [place] [address] Result Comment: Rahel mated Glomerular Filtration Rate (eGFR) is calculated using the 2020 CKD-EPI creatinine equation. This equation utilizes serum creatinine, sex, and age as parameters. The creatinine assay has traceable calibration to isotope dilution-mass spectrometry. Refer to KDIGO guidelines for clinical interpretation. In patients with unstable renal function, e.g. those with acute kidney injury, the eGFR may not accurately reflect actual GFR. Performed By: #### 2 4323-8 #### [facility] CLIA [id number] [address] Glucose [Mass/Vol] 111 mg/dL High 74-99 [facility] Comment on above: Order Comment: Speci nirav Type: BLOOD SPECIMEN Ordering Facility: [facility] Address: [address] [place] [address] Result Comment: The [place] Diabetes Association (ADA) provides guidance for cutoff values for fasting glucose and random glucose. The ADA defines fasting as no caloric intake for at least 8 hours. Fasting plasma glucose results between 100 to 125 mg/dL indicate increased risk for diabetes (prediabetes). Fasting plasma glucose results greater than or equal to 126 mg/dL meet the criteria for diagnosis of diabetes. In the absence of unequivocal hyperglycemia, results should be confirmed by repeat testing. In a patient with classic symptoms of hyperglycemia or hyperglycemic crisis, random plasma glucose results greater than or equal to 200 mg/dL meet the criteria for diagnosis of diabetes. Reference: Standards of Medical Care in Diabetes 2016, [place] Diabetes Association. Diabetes Care. 2016.39(Suppl 1). Performed By: #### 2 4323-8 #### [facility] CLIA [id number] [address] [place] [address] [place] Potassium [Moles/Vol] 4.1 mmol/L Normal 3.7-5.1 [facility] Comment on above: Order Comment: Hollis gastelum Type: BLOOD SPECIMEN Ordering Facility: [facility] Address: [address] [place] [address] Performed By: #### 2 4323-8 #### [facility] CLIA [id number] [address] [place] Protein [Mass/Vol] 7.1 g/dL Normal 6.3-8.0 [facility] Comment on above: Order Comment: Hollis gastelum Type: BLOOD SPECIMEN Ordering Facility: [facility] Address: [address] [place] [address] Performed By: #### 2 4323-8 #### [facility] CLIA [id number] [address] [place] Sodium [Moles/Vol] 141 mmol/L Normal 136-144 [facility] Comment on above: Order Comment: Hollis gastelum Type: BLOOD SPECIMEN Ordering Facility: [facility] Address: [address] [place] [address] Performed By: #### 2 4323-8 #### [facility] CLIA [id number] [address] [place] [address] [place] Urea nitrogen [Mass/Vol] 13 mg/dL Normal 9-24 [facility] Comment on above: Order Comment: Hollis gastelum Type: BLOOD SPECIMEN Ordering Facility: [facility] Address: [address] [place] [address] Performed By: #### 2 4323-8 #### [facility] CLIA [id number] [address] [place] HbA1c (Bld)on 02-17-2025 Average glucose Estimated from glycated hemoglobin (Bld) [Mass/Vol] 108 mg/dL Normal [facility] Comment on above: Order Comment: Speci men Type: BLOOD SPECIMEN Ordering Facility: [facility] Address: [address] [place] [address] Result Comment: eAG: (Estimated average glucose) is a calculated value from HgbA1c and is sales representative malt [employer]ors of the average blood glucose level in the last 2-3 month period. Performed By: #### 5 5454-3 #### [facility] CLIA [id number] [address] [place] [address] [place] HbA1c (Bld) [Mass fraction] 5.4 % Normal 4.3-5.6 [facility] Comment on above: Order Comment: Speci men Type: BLOOD SPECIMEN Ordering Facility: [facility] Address: [address] [place] [address] Result Comment: [place] Diabetes Association guidelines indicate that patients with HgbA1c in the range 5.7-6.4% are at increased risk for development of diabetes, and intervention by lifestyle modification may be beneficial. HgbA1c greater or equal to 6.5% is considered diagnostic of diabetes. Performed By: #### 5 5454-3 #### [facility] CLIA [id number] [address] [place] [address] [place] PSA SerPl-mCncon 02-17-2025 Prostate specific Ag [Mass/Vol] 2.21 ng/mL Normal <2.60 [facility] Comment on above: Order Comment: Speci men Type: BLOOD SPECIMEN Ordering Facility: [facility] Address: [address] [place] [address] Result Comment: Tota l PSA test methodology used is the Electrochemiluminescence Immunoassay by [employer]. Total PSA values by differing methodologies cannot be interchanged. Performed By: #### 2 857-1 #### [facility] CLIA [id number] [address] [place] [address] [place] US CAROTID ARTERIES [facility] 02-17-2025 US CAROTID ARTERIES [facility] Carotid Duplex Bilateral/Complete Date of service/time: 02/17/2025 10:08:35 AM Name: MR. AMIE KILLIAN Date of : 1955 Age: 69 years Gender: M Clinical Indication Asymptomatic cervical bruit. TECHNIQUE -------- A carotid duplex ultrasound examination was performed, including grayscale imaging and color Doppler and spectral Doppler examination of the below mentioned arteries. FINDINGS -------- RIGHT SIDE Common carotid artery: Origin: PSV: 129 cm/s. EDV: 17 cm/s. Proximal: PSV: 104 cm/s. EDV: 14 cm/s. Mid: PSV: 75 cm/s. EDV: 11 cm/s. Distal: PSV: 72 cm/s. EDV: 13 cm/s. Mild heterogeneous plaque from mid to distal. Internal carotid artery: Origin: PSV: 83 cm/s. EDV: 13 cm/s. Proximal: PSV: 82 cm/s. EDV: 14 cm/s. Mid: PSV: 71 cm/s. EDV: 20 cm/s. Distal: PSV: 80 cm/s. EDV: 26 cm/s. Mild heterogeneous plaque at origin. ICA/CCA Ratio: 1.2 External carotid artery: Origin: PSV: 74 cm/s. EDV: 8 cm/s. Mild heterogeneous plaque at origin. Subclavian artery: Origin: PSV: 238 cm/s. EDV: 0 cm/s. Mild heterogeneous plaque at origin. Innominate artery: PSV: 209 cm/s. EDV: 0 cm/s. Vertebral artery: PSV: 90 cm/s. EDV: 14 cm/s. LEFT SIDE Common carotid artery: Proximal: PSV: 119 cm/s. EDV: 14 cm/s. Mid: PSV: 92 cm/s. EDV: 18 cm/s. Distal: PSV: 87 cm/s. EDV: 19 cm/s. Mild heterogeneous plaque at distal. Internal carotid artery: Origin: PSV: 66 cm/s. EDV: 19 cm/s. Proximal: PSV: 66 cm/s. EDV: 21 cm/s. Mid: PSV: 84 cm/s. EDV: 21 cm/s. Distal: PSV: 62 cm/s. EDV: 16 cm/s. Mild heterogeneous plaque at origin. ICA/CCA Ratio: 0.8 External carotid artery: Origin: PSV: 78 cm/s. EDV: 8 cm/s. Mild heterogeneous plaque at origin. Subclavian artery: Proximal: PSV: 428 cm/s. EDV: 0 cm/s. IMPRESSION Please note: the new carotid interpretation criteria are used as recommended by [employer]. RIGHT SIDE Common carotid artery: Plaque visualized without evidence of hemodynamically significant stenosis. Internal carotid artery: <50% stenosis consistent with mild carotid artery disease. Vertebral artery: Patent and antegrade flow noted. Innominate artery: Turbulent flow noted, cannot rule out more proximal stenosis. May wish other means of evaluation. Subclavian artery: Plaque visualized without evidence of hemodynamically significant stenosis. LEFT SIDE Internal carotid artery: <50% stenosis consistent with mild carotid artery disease. Vertebral artery: Bidirectional flow is evidence of incomplete subclavian steal. Subclavian artery: 50-99% stenosis. Technologist: Clarisa Wan RVT [facility] Ordering physician: AMANDA CORONA Interpreting physician: MICHAEL Carrera MD Final CC [employer] [facility] Image : [id number] See Link below for Image Normal [facility] CNOVon 01-14-2025 CNOV Office Visit (FAMPWS ) AMIE KILLIAN ([id number]) 1955 M Date Time Provider Department 01/14/25 8:40 AM APOLLO MELO During your visit today, we recorded the following information about you: Pulse Respiration Blood pressure Weight 80/minute 16/minute 124/76 56.7 kg Apollo eMlo MD 01/14/2025 11:40 AM Signed Chief Complaint Patient presents with: 6 Month Exam HPI Amie Killian is a 69 year old male who presents here today for 6 month follow up. Spoke with pt about getting him set up for a Medicare Wellness, he declined, stated he doesn't want it. Advanced directive on file. Enjoys golfing. No bowel, Gi, or urinary concerns. Has urinary incontinence, wears pads. Uses procto-chen for rectum prn and colace 100 mg prn. PAD AND Lipid: Follows with Vascular Dr. Corona. He has cramping feeling in the legs and some numbness to the toes. Taking Pletal 100 mg 1 pill BID. Watching diet and exercising 3-4 x a week and plays golf regularly. Pt had PVR done in November. No chest pains, dizziness, or SOB. Follows with hem/onc Dr. Perez for prostate cancer, liver lesion, and Diffuse large B-cell lymphoma of intra-abdominal lymph nodes . Taking Xtandi 40 mg 4 pills once a day. COPD: Continues to smoke half to 1 ppd, thinks about quitting but not ready at this time. Uses Breo Ellipita once daily and this is working well for him. Has not used ProAir Inhaler in quite some time. Overall feels his breathing is doing pretty well. Had spirometry done in Jul. Hx of elevated glucose. Labs monitored. Past medical history, appointments, medications, allergies reviewed. Previous Medical History PAST MEDICAL HISTORY Diagnosis Date Fistula Lesion of liver 06/10/2021 Non Hodgkin's lymphoma (HCC) PAD (peripheral artery disease) Prostate cancer (HCC) 12/2011 Previous Surgical History PAST SURGICAL HISTORY Procedure Laterality Date ABDOMINAL SURGERY HX APPENDECTOMY HX COLONOSCOPY 12/24/2021 repeat in 5 years COLONOSCOPY FLX DX W/COLLJ SPEC WHEN PFRMD 02/15/2016 Colonoscopy IMPLANT CATH INSERTION (AG) 07/30/2020 IVAD right chest INCISE FINGER TENDON SHEATH Left 08/26/2021 Left middle and ring trigger finger releases PAST SURGICAL HISTORY OF appendectomy PAST SURGICAL HISTORY OF tonsilectomy PROSTATECTOMY, SIMPLE, BENIGN 01/03/2012 prostate removed TONSILLECTOMY HX Family History FAMILY HISTORY Problem Relation Age of Onset Heart Father of [place] age 80 Stroke Mother Heart Brother Patient Allergies ALLERGIES Allergen Reactions Doxycycline GI Upset Unsure if he really has SE to this medication Current Medications Current Outpatient Medications on File Prior to Visit Medication Sig enzalutamide (XTANDI) 40 mg tablet Take 4 tablets (160 mg) by mouth once daily. BREO ELLIPTA 200-25 mcg/dose inhaler Inhale 1 Inhalation as instructed once daily. cilostazol (PLETAL) 100 mg tablet Take 1 tablet by mouth twice daily hydrocortisone (PROCTO-CHEN) 1 % crpe 1 application by RECTAL route two times a day as needed. calcium carbonate/vitamin D3 (CALCIUM 600 + D ORAL) Take 2 tablets by mouth once daily. Calcium 600mg+Vitamin D3 800 international units per tablet docusate sodium (COLACE) 100 mg capsule Take 100 mg by mouth once daily as needed for constipation. aspirin, enteric coated (ASPIRIN, ENTERIC COATED) 81 mg EC tablet Take 81 mg by mouth once daily. multivitamin (MULTIPLE VITAMINS ORAL) Take 1 capsule by mouth once daily. No current facility-administered medications on file prior to visit. Social History Social History Tobacco Use Smoking status: Every Day Current packs/day: 0.75 Average packs/day: 0.8 packs/day for 47.0 years (35.3 ttl pk-yrs) Types: Cigarettes Smokeless tobacco: Never Vaping Use Vaping status: Never Used Substance Use Topics Alcohol use: Not Currently Comment: Drug use: No EXAM: BP 124/76 Pulse 80 Resp 16 Wt 56.7 kg (125 lb) BMI 19.69 kg/m? General Appearance: Well appearing, alert, in no acute distress, well-hydrated, well nourished.. Lungs: Lungs clear to auscultation. No wheezing, rhonchi, rales.. Heart: RRR without murmur, gallop, or rubs. No ectopy. Health Maintenance List Abdominal Aortic Aneurysm Screening Never done Shingrix Vaccine(1 of 2) Never done RSV Vaccine(1 - Risk 60-74 years 1-dose series) Never done Lipid Screening due on 12/24/2019 DTaP,Tdap,Td Vaccine(2 - Td or Tdap) due on 12/26/2023 Advance Directive Discussion due on 09/11/2024 Depression Screening due on 01/25/2025 Anxiety Screening due on 01/25/2025 Lung Cancer Screening due on 07/16/2025 Covid-19 Vaccine( season) due on 01/14/2026 Annual PCP Team Chronic Disease Visit due on 01/14/2026 Colorectal Cancer Screening due on 12/24/2026 Diabetes Screening due on 12/18/2027 Hepatitis B Vaccine Com (more content not included)... Normal [facility] CT ABD/PEL W IVCONon 025 CT ABD/PEL W IVCON * * *Final Report* * * DATE OF EXAM: Jan 07 2025 10:36AM [facility] 0530 - CT ABD/PEL W IVCON / PROCEDURE REASON: multiple diagnoses * * * * Physician Interpretation * * * * EXAMINATION: CT ABDOMEN AND PELVIS WITH IV CONTRAST CLINICAL HISTORY: Lesion of liver. Diffuse large B-cell lymphoma. TECHNIQUE: CT of the abdomen and pelvis was performed using standard technique, scanning from just above the dome of the diaphragm to the symphysis pubis. MQ: CTAP_3 Contrast: IV: 100 ml of Omnipaque 350 Oral: 10 ml of Omni 240 10-25ml diluted with water CT Radiation dose: Integrated Dose-length product (DLP) for this visit = 320 mGy*cm. CT Dose Reduction Employed: Automated exposure control(AEC) and iterative recon COMPARISON: CT abdomen and pelvis 08/16/2022 and 03/02/2023 RESULT: Liver: No new mass. Stable subcentimeter low-density lesions in the inferior right lobe of the liver (5:47 and 50). Biliary: No bile duct dilation. Gallbladder is unremarkable. Spleen: No mass. No splenomegaly. Pancreas: No mass or duct dilation. Adrenals: No mass. Kidneys: Stable small right renal cyst. The kidneys enhance symmetrically. No hydronephrosis. GI tract: No dilation or wall thickening. Diverticula in the colon without evidence of acute diverticulitis. Lymph nodes: No abdominal or pelvic lymphadenopathy. Mesentery/Peritoneum: No ascites or mass. Retroperitoneum: No mass. Vasculature: - Abdominal aorta and iliac arteries: Atherosclerotic calcifications without aneurysm. - Celiac and SMA: Atherosclerotic calcifications at the origins. - Portal venous system (SMV, splenic vein, portal vein and branches): Patent. - Hepatic veins: Patent. Pelvis: No mass, ascites or fluid collection. The bladder has a normal appearance. Bones/Soft Tissues: Degenerative changes. Lower thorax: No pleural effusion or consolidation Localizer images: No additional findings. IMPRESSION: 1. No new mass or lymphadenopathy in the abdomen and pelvis 2. Stable subcentimeter low-density lesions in the liver Mascara Molder: PSCB Transcribe Date/Time: Jan 14 2025 9:42A Dictated by : ASHLEY MONTILLA MD This examination was interpreted and the report reviewed and electronically signed by: ASHLEY MONTILLA MD on Jan 14 2025 9:59AM EST [id number] Normal [facility] CNOVSPon 12-19-2024 CNOVSP Visit (SP) Office (H EMAWS) LISANDRAAMIE CHANEL ([id number]) 1955 M Date Time Provider Department 12/19/24 9:00 AM FRANCISCO JAVIER PEREZ During your visit today, we recorded the following information about you: Temperature Pulse Blood pressure Weight 97 degrees 79/minute 150/73 58.3 kg Dinorah Correa LPN 12/19/2024 11:44 AM Signed Est. Pt. Discuss recent labs, tx today FARIBA Mccabe Drew, MD 12/19/2024 11:44 AM Signed (Elements copied from my note dated September 26, 2024, have been reviewed and updated where appropriate, and all reflect current assessment and medical decision making from today's encounter, December 19, 2024) HISTORY OF PRESENT ILLNESS: Amie Ford Lisandrajewels is a 69 year old male with a history of diffuse large cell lymphoma. This has been in complete remission with no evidence of recurrence after completion of 5 cycles of CHOP Rituxan completed 2-3-21. 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 Not extensive or present elsewhere therefore has been appropriately monitored without therapeutic intervention. In 2011 underwent radical prostatectomy followed by postop adjuvant radiation because of high risk prostatic cancer. June 2021 PSA up to 9.07, bone metastasis were detected on bone scan and was started on Zytiga and prednisone plus Lupron. switched to Xtandi November 28, 2022 due to loss of the financial support from [employer] and [employer]. PSA noted to fall Here for follow up, doing well. Labs reviewed. Edentulous. No pain or urinary issues. PSA slowly increasing, DT now about 6 months Reviewed Guardant result, no actionable mutation JOYCELYN Lupron/CAB since 06-17-21 CLINICAL IMPRESSION: Prostate cancer with bone mets, PSA DT about 6 months History DLCL, clinically remains in remission RECOMMENDATION/PLAN: 1. Continue CAB GnRH and enzalutamide 2. Bisphosphonate every [address] abdomen due to histiocytosis Written and verbal health teaching given to patient, patient verbalizes understanding and agrees with treatment plan. PAST MEDICAL HISTORY Diagnosis Date Fistula Lesion of liver 06/10/2021 Non Hodgkin's lymphoma (HCC) PAD (peripheral artery disease) Prostate cancer (HCC) 12/2011 PAST SURGICAL HISTORY Procedure Laterality Date ABDOMINAL SURGERY HX APPENDECTOMY HX COLONOSCOPY 12/24/2021 repeat in 5 years COLONOSCOPY FLX DX W/COLLJ SPEC WHEN PFRMD 02/15/2016 Colonoscopy IMPLANT CATH INSERTION (AG) 07/30/2020 IVAD right chest INCISE FINGER TENDON SHEATH Left 08/26/2021 Left middle and ring trigger finger releases PAST SURGICAL HISTORY OF appendectomy PAST SURGICAL HISTORY OF tonsilectomy PROSTATECTOMY, SIMPLE, BENIGN 01/03/2012 prostate removed TONSILLECTOMY HX FAMILY HISTORY Problem Relation Age of Onset Heart Father of [place] age 80 Stroke Mother Heart Brother Social History Tobacco Use Smoking status: Every Day Current packs/day: 0.75 Average packs/day: 0.8 packs/day for 47.0 years (35.3 ttl pk-yrs) Types: Cigarettes Smokeless tobacco: Never Vaping Use Vaping status: Never Used Substance Use Topics Alcohol use: Not Currently Comment: Drug use: No ALLERGIES: ALLERGIES Allergen Reactions Doxycycline GI Upset Unsure if he really has SE to this medication CURRENT OUTPATIENT MEDICATIONS: enzalutamide (XTANDI) 40 mg tablet Take 4 tablets (160 mg) by mouth once daily. BREO ELLIPTA 200-25 mcg/dose inhaler Inhale 1 Inhalation as instructed once daily. cilostazol (PLETAL) 100 mg tablet Take 1 tablet by mouth twice daily hydrocortisone (PROCTO-CHEN) 1 % crpe 1 application by RECTAL route two times a day as needed. calcium carbonate/vitamin D3 (CALCIUM 600 + D ORAL) Take 2 tablets by mouth once daily. Calcium 600mg+Vitamin D3 800 international units per tablet docusate sodium (COLACE) 100 mg capsule Take 100 mg by mouth once daily as needed for constipation. aspirin, enteric coated (ASPIRIN, ENTERIC COATED) 81 mg EC tablet Take 81 mg by mouth once daily. multivitamin (MULTIPLE VITAMINS ORAL) Take 1 capsule by mouth once daily. REVIEW OF SYSTEMS: GENERAL: No fever, night sweats, weight loss or malaise. All other reviewed and negative other than HPI. PHYSICAL EXAMINATION: VITAL SIGNS: BP 150/73 Pulse 79 Temp 97 Wt 128 lb 8 oz (58.3kg) SpO2 100% GENERAL APPEARANCE: Well appearing, in no acute distress, alert and oriented x3, well-hydrated, well nourished. No palpable adenopathy or splenomegaly I spent a total of 30 minutes on the date of the service which included preparing to see the patient, [id number] patient care, completing clinical documentation, obtaining and/or reviewing separately obtained history, performing a medically appropriate examination, counseling and educating the patient/family/caregiver, independently interpreting results (not separatel (more content not included)... Normal [facility] Comprehensive metabolic 2000 panelOrdered By: Verónica Mallory on 12-17-2024 Albumin [Mass/Vol] 4.3 g/dL 3.9 - 4.9 g/dL [facility] ALP [Catalytic activity/Vol] 64 U/L 38 - 113 U/L [facility] ALT [Catalytic activity/Vol] 5 U/L Low 10 - 54 U/L [facility] Anion gap [Moles/Vol] 10 mmol/L 8 - 15 mmol/L [facility] AST [Catalytic activity/Vol] 12 U/L Low 14 - 40 U/L [facility] Bilirubin [Mass/Vol] 0.4 mg/dL 0.2 - 1.3 mg/dL [facility] Calcium [Mass/Vol] 9.9 mg/dL 8.5 - 10. 2 mg/dL [facility] Chloride [Moles/Vol] 102 mmol/L 98 - 107 mmol/L [facility] CO2 [Moles/Vol] 25 mmol/L 22 - 30 mmol/L [facility] Creatinine [Mass/Vol] 0.82 mg/dL 0.73 - 1.22 mg/dL [facility] GFR/1.73 sq M.predicted among non-blacks MDRD (S/P/Bld) [Vol rate/Area] 94 mL/min/{1.73_m2} - PINF [facility] Comment on above: Estimated Glomerular Filtration Rate (eGFR) is calculated using the 2020 CKD-EPI creatinine equation. This equation utilizes serum creatinine, sex, and age as parameters. The creatinine assay has traceable calibration to isotope dilution-mass spectrometry. Refer to KDIGO guidelines for clinical interpretation. In patients with unstable renal function, e.g. those with acute kidney injury, the eGFR may not accurately reflect actual GFR. Glucose [Mass/Vol] 121 mg/dL High 74 - 99 mg/dL [facility] Comment on above: The [place] Diab[employer] s Association (ADA) provides guidance for cutoff values for fasting glucose and random glucose. The ADA defines fasting as no caloric intake for at least 8 hours. Fasting plasma glucose results between 100 to 125 mg/dL indicate increased risk for diabetes (prediabetes). Fasting plasma glucose results greater than or equal to 126 mg/dL meet the criteria for diagnosis of diabetes. In the absence of unequivocal hyperglycemia, results should be confirmed by repeat testing. In a patient with classic symptoms of hyperglycemia or hyperglycemic crisis, random plasma glucose results greater than or equal to 200 mg/dL meet the criteria for diagnosis of diabetes. Reference: Standards of Medical Care in Diabetes 2016, [place] [employer] Association. Diabetes Care. 2016.39(Suppl 1). Interpretation and review of laboratory results Abnormal [facility] Potassium [Moles/Vol] 3.8 mmol/L 3.7 - 5.1 mmol/L [facility] Protein [Mass/Vol] 6.7 g/dL 6.3 - 8.0 g/dL [facility] Sodium [Moles/Vol] 137 mmol/L 136 - 144 mmol/L [facility] Urea nitrogen [Mass/Vol] 10 mg/dL 9 - 24 mg/dL [facility] Comprehensive metabolic 2000 panelon 12-17-2024 Albumin [Mass/Vol] 4.3 g/dL Normal 3.9-4.9 [facility] Comment on above: Order Comment: Speci men Type: BLOOD SPECIMEN Ordering Facility: [facility] Address: [address] [place] [address] Performed By: #### 2 857-1 #### [facility] CLIA [id number] [address] [place] [address] [place] ALP [Catalytic activity/Vol] 64 U/L Normal 38-113 [facility] Comment on above: Order Comment: Speci men Type: BLOOD SPECIMEN Ordering Facility: [facility] Address: [address] [place] [address] Performed By: #### 2 857-1 #### [facility] CLIA [id number] [address] [place] [address] [place] ALT [Catalytic activity/Vol] 5 U/L Low 10-54 [facility] Comment on above: Order Comment: Speci men Type: BLOOD SPECIMEN Ordering Facility: [facility] Address: [address] [place] [address] Performed By: #### 2 857-1 #### [facility] CLIA [id number] [address] [place] [address] [place] Anion gap [Moles/Vol] 10 mmol/L Normal 8-15 [facility] Comment on above: Order Comment: Speci men Type: BLOOD SPECIMEN Ordering Facility: [facility] Address: [address] [place] [address] Performed By: #### 2 857-1 #### [facility] CLIA [id number] [address] [place] [address] [place] AST [Catalytic activity/Vol] 12 U/L Low 14-40 [facility] Comment on above: Order Comment: Speci men Type: BLOOD SPECIMEN Ordering Facility: [facility] Address: [address] [place] [address] Performed By: #### 2 857-1 #### [facility] CLIA [id number] [address] [place] [address] [place] Bilirubin [Mass/Vol] 0.4 mg/dL Normal 0.2-1.3 [facility] Comment on above: Order Comment: Speci men Type: BLOOD SPECIMEN Ordering Facility: [facility] Address: [address] [place] [address] Performed By: #### 2 857-1 #### [facility] CLIA [id number] [address] [place] [address] [place] Calcium [Mass/Vol] 9.9 mg/dL Normal 8.5-10.2 [facility] Comment on above: Order Comment: Speci men Type: BLOOD SPECIMEN Ordering Facility: [facility] Address: [address] [place] [address] Performed By: #### 2 857-1 #### [facility] CLIA [id number] [address] [place] [address] [place] Chloride [Moles/Vol] 102 mmol/L Normal 98-107 [facility] Comment on above: Order Comment: Speci men Type: BLOOD SPECIMEN Ordering Facility: [facility] Address: [address] [place] [address] Performed By: #### 2 857-1 #### [facility] CLIA [id number] [address] [place] [address] [place] CO2 [Moles/Vol] 25 mmol/L Normal 22-30 [facility] Comment on above: Order Comment: Speci men Type: BLOOD SPECIMEN Ordering Facility: [facility] Address: [address] [place] [address] Performed By: #### 2 857-1 #### [facility] CLIA [id number] [address] [place] [address] [place] Creatinine [Mass/Vol] 0.82 mg/dL Normal 0.73-1.22 [facility] Comment on above: Order Comment: Hollis gastelum Type: BLOOD SPECIMEN Ordering Facility: [facility] Address: [address] [place] [address] Performed By: #### 2 857-1 #### [facility] CLIA [id number] [address] [place] [address] [place] Creatinine and Glomerular filtration rate.predicted panel (S/P/Bld) 94 mL/min/1.73m??? Normal >=60 [facility] Comment on above: Order Comment: Hollis gastelum Type: BLOOD SPECIMEN Ordering Facility: [facility] Address: [address] [place] [address] Result Comment: Rahel mated Glomerular Filtration Rate (eGFR) is calculated using the 2020 CKD-EPI creatinine equation. This equation utilizes serum creatinine, sex, and age as parameters. The creatinine assay has traceable calibration to isotope dilution-mass spectrometry. Refer to KDIGO guidelines for clinical interpretation. In patients with unstable renal function, e.g. those with acute kidney injury, the eGFR may not accurately reflect actual GFR. Performed By: #### 2 857-1 #### [facility] CLIA [id number] [address] [place] [address] [place] Glucose [Mass/Vol] 121 mg/dL High 74-99 [facility] Comment on above: Order Comment: Hollis gastelum Type: BLOOD SPECIMEN Ordering Facility: [facility] Address: [address] [place] [address] Result Comment: The [place] Diabetes Association (ADA) provides guidance for cutoff values for fasting glucose and random glucose. The ADA defines fasting as no caloric intake for at least 8 hours. Fasting plasma glucose results between 100 to 125 mg/dL indicate increased risk for diabetes (prediabetes). Fasting plasma glucose results greater than or equal to 126 mg/dL meet the criteria for diagnosis of diabetes. In the absence of unequivocal hyperglycemia, results should be confirmed by repeat testing. In a patient with classic symptoms of hyperglycemia or hyperglycemic crisis, random plasma glucose results greater than or equal to 200 mg/dL meet the criteria for diagnosis of diabetes. Reference: Standards of Medical Care in Diabetes 2016, [place] [employer]. Diabetes Care. 2016.39(Suppl 1). Performed By: #### 2 857-1 #### [facility] CLIA [id number] [address] [place] [address] [place] Potassium [Moles/Vol] 3.8 mmol/L Normal 3.7-5.1 [facility] Comment on above: Order Comment: Speci men Type: BLOOD SPECIMEN Ordering Facility: [facility] Address: [address] [place] [address] Performed By: #### 2 857-1 #### [facility] CLIA [id number] [address] [place] [address] [place] Protein [Mass/Vol] 6.7 g/dL Normal 6.3-8.0 [facility] Comment on above: Order Comment: Speci men Type: BLOOD SPECIMEN Ordering Facility: [facility] Address: [address] [place] [address] Performed By: #### 2 857-1 #### [facility] CLIA [id number] [address] [place] [address] [place] Sodium [Moles/Vol] 137 mmol/L Normal 136-144 [facility] Comment on above: Order Comment: Speci men Type: BLOOD SPECIMEN Ordering Facility: [facility] Address: [address] [place] [address] Performed By: #### 2 857-1 #### [facility] CLIA [id number] [address] [place] [address] [place] Urea nitrogen [Mass/Vol] 10 mg/dL Normal 9-24 [facility] Comment on above: Order Comment: Speci men Type: BLOOD SPECIMEN Ordering Facility: [facility] Address: [address] [place] [address] Performed By: #### 2 857-1 #### [facility] CLIA [id number] [address] [place] [address] [place] PSA SerPl-mCncon 12-17-2024 Prostate specific Ag [Mass/Vol] 1.74 ng/mL Normal <2.60 [facility] Comment on above: Order Comment: Speci men Type: BLOOD SPECIMEN Ordering Facility: [facility] Address: [address] [place] [address] Result Comment: Tota l PSA test methodology used is the Electrochemiluminescence Immunoassay by [employer]. Total PSA values by differing methodologies cannot be interchanged. Performed By: #### 2 857-1 #### [facility] CLIA [id number] [address] [place] [address] [place] CNOVon 11-26-2024 CNOV Office Visit (VASSWS ) AMIE KILLIAN ([id number]) 1955 M Date Time Provider Department 11/26/24 9:00 AM AMANDA CORONA During your visit today, we recorded the following information about you: Pulse Blood pressure 71/minute 125/70 Amanda Corona DO 11/26/2024 11:47 AM [facility] [place] DEPARTMENT OF VASCULAR SURGERY OUTPATIENT VISIT DATE November 26, 2024 OUTPATIENT VISIT TYPE ESTABLISHED SERVICE DATE: 11/26/2024 SERVICE TIME: 9:12 AM PRIMARY CARE PHYSICIAN: Apollo Melo MD HISTORY OF PRESENT ILLNESS: Mr. Killian is a 69 year old male who presents today for a vascular surgery follow-up visit for peripheral arterial disease. He has been active in the winter with walking at the [facility]. This spring, he has noticed right leg claudication while golfing even after walking short distances. He has noticed it was worse this year and has noticed it has significantly slowed him down. Denies any upper extremity claudication or vertebrobasilar symptoms. PAST MEDICAL HISTORY Diagnosis Date Fistula Lesion of liver 06/10/2021 Non Hodgkin's lymphoma (HCC) PAD (peripheral artery disease) (HCC) Prostate cancer (HCC) 12/2011 PAST SURGICAL HISTORY Procedure Laterality Date ABDOMINAL SURGERY HX APPENDECTOMY HX COLONOSCOPY 12/24/2021 repeat in 5 years COLONOSCOPY FLX DX W/COLLJ SPEC WHEN PFRMD 02/15/2016 Colonoscopy IMPLANT CATH INSERTION (AG) 07/30/2020 IVAD right chest INCISE FINGER TENDON SHEATH Left 08/26/2021 Left middle and ring trigger finger releases PAST SURGICAL HISTORY OF appendectomy PAST SURGICAL HISTORY OF tonsilectomy PROSTATECTOMY, SIMPLE, BENIGN 01/03/2012 prostate removed TONSILLECTOMY HX SOCIAL HISTORY Social History Tobacco Use Smoking status: Every Day Current packs/day: 0.75 Average packs/day: 0.8 packs/day for 47.0 years (35.3 ttl pk-yrs) Types: Cigarettes Smokeless tobacco: Never Vaping Use Vaping status: Never Used Substance Use Topics Alcohol use: Not Currently Comment: Drug use: No MEDICATIONS: enzalutamide (XTANDI) 40 mg tablet Take 4 tablets (160 mg) by mouth once daily. BREO ELLIPTA 200-25 mcg/dose inhaler Inhale 1 Inhalation as instructed once daily. cilostazol (PLETAL) 100 mg tablet Take 1 tablet by mouth twice daily hydrocortisone (PROCTO-CHEN) 1 % crpe 1 application by RECTAL route two times a day as needed. calcium carbonate/vitamin D3 (CALCIUM 600 + D ORAL) Take 2 tablets by mouth once daily. Calcium 600mg+Vitamin D3 800 international units per tablet docusate sodium (COLACE) 100 mg capsule Take 100 mg by mouth once daily as needed for constipation. aspirin, enteric coated (ASPIRIN, ENTERIC COATED) 81 mg EC tablet Take 81 mg by mouth once daily. multivitamin (MULTIPLE VITAMINS ORAL) Take 1 capsule by mouth once daily. ALLERGIES: ALLERGIES Allergen Reactions Doxycycline GI Upset Unsure if he really has SE to this medication PHYSICAL EXAM: BP 100/67 (BP Site: Left Arm, BP Position: Sitting, BP Cuff Size: Regular Adult) Pulse 71 SpO2 95% Gen- no distress Neuro- no focal deficit, left carotid bruit Ext-no ulceration or tissue loss, nonpalpable distal pulses Diagnostic tests reviewed for today's visit: Most recent labs Most recent imaging PVRs Compared to prior study of 11/28/2023, difference in brachial artery blood pressures is a new finding. Dampening of bilateral resting waveforms noted. RIGHT SIDE Resting right ankle brachial index: 0.70 Non-compressible vessels, results called by PVR tracings. Right ankle: Moderate disease at rest. LEFT SIDE Resting left ankle brachial index: 0.78 Non-compressible vessels, results called by PVR tracings. Left ankle: Moderate disease at rest. IMPRESSION: Mr. Killian is a 69 year old male with peripheral arterial disease, possible subclavian and carotid stenosis. PLAN and RECOMMENDATIONS: States his claudication has progressed, recommend CTA with run-off and follow up to discuss interventional options Also will get carotid duplex to look for subclavian stenosis. Instructed patient to take blood pressure on right sides SIGNATURE: Amanda Corona DO PATIENT NAME: Amie Killian DATE: November 26, 2024 TIME: 9:12 AM Referring Provider: AMANDA CORONA [[id number]] Allergies As of Date: 11/26/2024 Noted Allergy Reaction DOXYCYCLINE 12/30/2014 8 - GI Upset Comments: Unsure if he really has SE to this medication Date Reviewed: 11/26/2024 Reviewed by: Lida Faith OCCA - Fully Assessed Reason for Visit: Established Patient [175] Primary Visit Diagnosis:Peripheral vascular disease (HCC) [I73.9] Other Visit Diagnoses:Screening for nephropathy [Z13.89] Asymptomatic carotid artery stenosis, unspecified laterality [I65.29] Order(s):US CAROTID ARTERIES [facility] [[id number]] Order (more content not included)... Normal [facility] PVR ANK/VEGA/TOE [facility] on 11-26-2024 PVR ANK/VEGA/TOE [facility] Non-Invasive Vascular Laboratory [facility] Lower Extremity Arterial Physiology Study Bilateral/Complete Date of service/time: 11/26/2024 8:02:53 AM Name: MR. AMIE KILLIAN Date of : 1955 Age: 69 years Gender: M Clinical Indication Peripheral arterial disease. TECHNIQUE -------- An arterial physiological examination was performed, including measurement of blood pressures using continuous wave Doppler and recording of plethysmographic with or without Doppler waveforms at the below-mentioned limb segments. FINDINGS -------- RIGHT SIDE AT REST Right Doppler Waveforms Dorsalis pedis: Monophasic. Post tibial: Monophasic. Right Pressures Brachial: 139 mmHg Ankle dorsalis pedis: 97 mmHg JOSE J: 0.70 Ankle posterior tibial: 95 mmHg JOSE J: 0.68 Right PVR Waveforms Ankle: Moderately dampened. Transmetatarsal: Moderately dampened. Digit: Moderately dampened. LEFT SIDE AT REST Left Doppler Waveforms Dorsalis pedis: Monophasic. Post tibial: Monophasic. Left Pressures Brachial: 97 mmHg Ankle dorsalis pedis: 108 mmHg JOSE J: 0.78 Ankle posterior tibial: 93 mmHg JOSE J: 0.67 Left PVR Waveforms Ankle: Moderately dampened. Transmetatarsal: Moderately dampened. Digit: Moderately dampened. IMPRESSION Compared to prior study of 11/28/2023, difference in brachial artery blood pressures is a new finding. Dampening of bilateral resting waveforms noted. RIGHT SIDE Resting right ankle brachial index: 0.70 Non-compressible vessels, results called by PVR tracings. Right ankle: Moderate disease at rest. LEFT SIDE Resting left ankle brachial index: 0.78 Non-compressible vessels, results called by PVR tracings. Left ankle: Moderate disease at rest. Technologist: Errol Lundy [facility] Ordering physician: AMANDA CORONA Interpreting physician: MICHAEL Mascorro DO Final CC [employer] [facility] Image : [id number] See Link below for Image Normal [facility] Jose De Jesus 09-30-2024 ALBERTO Telephone (HEMAWS) AMIE KILLIAN ([id number]) 1955 M Date Time Provider Department 09/30/24 LISA ALBRIGHT During your visit today, we recorded the following information about you: Lisa Albright LISW 09/30/2024 10:06 AM Signed Fax received from [employer] patient assistance that pt needs an updated prescription for 2024. Please send prescription with enough refills for the year to: [id number] Thank you, GEMMA Heck Melanie, LPN 09/30/2024 11:48 AM Signed Rx refill sent a separate encounter. Alesia Schroeder LPN Allergies As of Date: 09/30/2024 Noted Allergy Reaction DOXYCYCLINE 12/30/2014 8 - GI Upset Comments: Unsure if he really has SE to this medication Date Reviewed: 09/26/2024 Reviewed by: Aracelis Desai RN - Fully Assessed Reason for Visit: Xtandi Refill [Other] Prescriptions as of 09/30/2024 - BREO ELLIPTA 200-25 mcg/dose inhaler Inhale 1 Inhalation as instructed once daily. - cilostazol (PLETAL) 100 mg tablet Take 1 tablet by mouth twice daily - hydrocortisone (PROCTO-CHEN) 1 % crpe 1 application by RECTAL route two times a day as needed. - enzalutamide (XTANDI) 40 mg tablet Take 4 tablets (160 mg) by mouth once daily. - calcium carbonate/vitamin D3 (CALCIUM 600 + D ORAL) Take 2 tablets by mouth once daily. Calcium 600mg+Vitamin D3 800 international units per tablet - docusate sodium (COLACE) 100 mg capsule Take 100 mg by mouth once daily as needed for constipation. - aspirin, enteric coated (ASPIRIN, ENTERIC COATED) 81 mg EC tablet Take 81 mg by mouth once daily. - multivitamin (MULTIPLE VITAMINS ORAL) Take 1 capsule by mouth once daily. 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 Hyperlipidemia [E78.5] 08/17/2012 Elevated PSA [R97.20] 05/09/2016 Jaundice [R17] 07/09/2020 Non-Hodgkin lymphoma of intra-abdominal lymph n*07/10/2020 Elevated liver transaminase level [R74.01] 07/10/2020 Pain [R52] 07/10/2020 History of hepatitis C [Z86.19] 07/13/2020 PAD (peripheral artery disease) (HCC) [I73.9] 01/19/2021 Diffuse large B-cell lymphoma of intra-abdomina*06/10/2021 Lesion of liver [K76.9] 06/10/2021 Malignant neoplasm metastatic to bone (HCC) [C7*07/16/2021 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] 07/16/2021 Urinary incontinence [R32] 01/11/2022 Protein-calorie malnutrition, unspecified sever*01/13/2023 07/17/2023 Encounter Status:Closed by ALESIA SCHROEDER on 09/30/24 [facility] CNOVSPon 09-26-2024 OVS Visit (SP) Office (H EMAWS) AMIE KILLIAN ([id number]) 1955 [place] Date Time Provider Department 09/26/24 9:20 AM FRANCISCO JAVIER PEREZ During your visit today, we recorded the following information about you: Temperature Pulse Blood pressure Weight 97.7 degrees 66/minute 159/89 56.7 kg Francisco Javier Perez MD 09/26/2024 10:53 AM Signed (Elements copied from my note dated July 04, 2024, have been reviewed and updated where appropriate, and all reflect current assessment and medical decision making from today's encounter, September 26, 2024) HISTORY OF PRESENT ILLNESS: Amie Killian is a 68 year old male with a history of diffuse large cell lymphoma. This has been in complete remission with no evidence of recurrence after completion of 5 cycles of CHOP Rituxan completed 10-14-20. 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 Not extensive or present elsewhere therefore has been appropriately monitored without therapeutic intervention. In 2011 underwent radical prostatectomy followed by postop adjuvant radiation because of high risk prostatic cancer. Bone metastasis were subsequently detected and has been started and was maintained on Zytiga and prednisone plus Lupron. switched to Xtandi November 28, 2022 due to loss of the financial support from [employer]. Here for follow up, doing well. Labs reviewed. Edentulous. No pain or urinary issues. PSA slowly increasing, DT now about 6 months Discussed Guardant testing Lupron/CAB since 06-17-21 CLINICAL IMPRESSION: Prostate cancer with bone mets, PSA DT dropped History DLCL, clinically remains in remission RECOMMENDATION/PLAN: 1. Continue CAB GnRH and enzalutamide 2. Bisphosphonate every 3 months 3. Guardant today Written and verbal health teaching given to patient, patient verbalizes understanding and agrees with treatment plan. PAST MEDICAL HISTORY Diagnosis Date Fistula Lesion of liver 06/10/2021 Non Hodgkin's lymphoma (HCC) PAD (peripheral artery disease) (HCC) Prostate cancer (HCC) 12/2011 PAST SURGICAL HISTORY Procedure Laterality Date ABDOMINAL SURGERY HX APPENDECTOMY HX COLONOSCOPY 12/24/2021 repeat in 5 years COLONOSCOPY FLX DX W/COLLJ SPEC WHEN PFRMD 02/15/2016 Colonoscopy IMPLANT CATH INSERTION (AG) 07/30/2020 IVAD right chest INCISE FINGER TENDON SHEATH Left 08/26/2021 Left middle and ring trigger finger releases PAST SURGICAL HISTORY OF appendectomy PAST SURGICAL HISTORY OF tonsilectomy PROSTATECTOMY, SIMPLE, BENIGN 01/03/2012 prostate removed TONSILLECTOMY HX FAMILY HISTORY Problem Relation Age of Onset Heart Father of [place] age 80 Stroke Mother Heart Brother Social History Tobacco Use Smoking status: Every Day Current packs/day: 0.75 Average packs/day: 0.8 packs/day for 47.0 years (35.3 ttl pk-yrs) Types: Cigarettes Smokeless tobacco: Never Vaping Use Vaping status: Never Used Substance Use Topics Alcohol use: Not Currently Comment: Drug use: No ALLERGIES: ALLERGIES Allergen Reactions Doxycycline GI Upset Unsure if he really has SE to this medication CURRENT OUTPATIENT MEDICATIONS: BREO ELLIPTA 200-25 mcg/dose inhaler Inhale 1 Inhalation as instructed once daily. cilostazol (PLETAL) 100 mg tablet Take 1 tablet by mouth twice daily hydrocortisone (PROCTO-CHEN) 1 % crpe 1 application by RECTAL route two times a day as needed. enzalutamide (XTANDI) 40 mg tablet Take 4 tablets (160 mg) by mouth once daily. calcium carbonate/vitamin D3 (CALCIUM 600 + D ORAL) Take 2 tablets by mouth once daily. Calcium 600mg+Vitamin D3 800 international units per tablet docusate sodium (COLACE) 100 mg capsule Take 100 mg by mouth once daily as needed for constipation. aspirin, enteric coated (ASPIRIN, ENTERIC COATED) 81 mg EC tablet Take 81 mg by mouth once daily. multivitamin (MULTIPLE VITAMINS ORAL) Take 1 capsule by mouth once daily. REVIEW OF SYSTEMS: GENERAL: No fever, night sweats, weight loss or malaise. All other reviewed and negative other than HPI. PHYSICAL EXAMINATION: VITAL SIGNS: BP 159/89 Pulse 66 Temp (Src) 97.7 (Temporal) Wt 125 lb (56.7kg) SpO2 96% GENERAL APPEARANCE: Well appearing, in no acute distress, alert and oriented x3, well-hydrated, well nourished. I spent a total of 30 minutes on the date of the service which included preparing to see the patient, [id number] patient care, completing clinical documentation, obtaining and/or reviewing separately obtained history, performing a medically appropriate examination, counseling and educating the patient/family/caregiver, independently interpreting results (not separately reported), and communicating results to the patient/family/caregiver. Electronically Signed: Francisco Javier Perez MD September 26, 2024 Referring Provider: SEAN RODRIGUEZ [[id number]] Allergies As of Date: 09/26 (more content not included)... Normal [facility] metabolic 2000 panelOrdered By: Verónica Mallory on 09-24-2024 Albumin [Mass/Vol] 4.2 g/dL 3.9 - 4.9 g/dL [facility] ALP [Catalytic activity/Vol] 62 U/L 38 - 113 U/L [facility] ALT [Catalytic activity/Vol] 10 U/L 10 - 54 U/L [facility] Anion gap [Moles/Vol] 11 mmol/L 8 - 15 mmol/L [facility] AST [Catalytic activity/Vol] 16 U/L 14 - 40 U/L [facility] Bilirubin [Mass/Vol] 0.4 mg/dL 0.2 - 1.3 mg/dL [facility] Calcium [Mass/Vol] 9.4 mg/dL 8.5 - 10. 2 mg/dL [facility] Chloride [Moles/Vol] 103 mmol/L 98 - 107 mmol/L [facility] CO2 [Moles/Vol] 26 mmol/L 22 - 30 mmol/L [facility] Creatinine [Mass/Vol] 0.70 mg/dL Low 0.73 - 1.22 mg/dL [facility] GFR/1.73 sq M.predicted among non-blacks MDRD (S/P/Bld) [Vol rate/Area] 99 mL/min/{1.73_m2} - PINF [facility] Comment on above: Estimated Glomerular Filtration Rate (eGFR) is calculated using the 2020 CKD-EPI creatinine equation. This equation utilizes serum creatinine, sex, and age as parameters. The creatinine assay has traceable calibration to isotope dilution-mass spectrometry. Refer to KDIGO guidelines for clinical interpretation. In patients with unstable renal function, e.g. those with acute kidney injury, the eGFR may not accurately reflect actual GFR. Glucose [Mass/Vol] 97 mg/dL 74 - 99 mg/dL [facility] Comment on above: The [place] Diabete s Association (ADA) provides guidance for cutoff values for fasting glucose and random glucose. The ADA defines fasting as no caloric intake for at least 8 hours. Fasting plasma glucose results between 100 to 125 mg/dL indicate increased risk for diabetes (prediabetes). Fasting plasma glucose results greater than or equal to 126 mg/dL meet the criteria for diagnosis of diabetes. In the absence of unequivocal hyperglycemia, results should be confirmed by repeat testing. In a patient with classic symptoms of hyperglycemia or hyperglycemic crisis, random plasma glucose results greater than or equal to 200 mg/dL meet the criteria for diagnosis of diabetes. Reference: Standards of Medical Care in Diabetes 2016, [place] Diabetes Association. Diabetes Care. 2016.39(Suppl 1). Interpretation and review of laboratory results Abnormal [facility] Potassium [Moles/Vol] 4.1 mmol/L 3.7 - 5.1 mmol/L [facility] Protein [Mass/Vol] 6.5 g/dL 6.3 - 8.0 g/dL [facility] Sodium [Moles/Vol] 140 mmol/L 136 - 144 mmol/L [facility] Urea nitrogen [Mass/Vol] 10 mg/dL 9 - 24 mg/dL [facility] metabolic 2000 panelon 09-24-2024 Albumin [Mass/Vol] 4.2 g/dL Normal 3.9-4.9 [facility] Comment on above: Order Comment: Speci nirav Type: BLOOD SPECIMEN Ordering Facility: [facility] Address: [address] [place] [address] Performed By: #### 2 857-1 #### [facility] CLIA [id number] [address] [place] [address] [place] ALP [Catalytic activity/Vol] 62 U/L Normal 38-113 [facility] Comment on above: Order Comment: Lexusi nirav Type: BLOOD SPECIMEN Ordering Facility: [facility] Address: [address] [place] [address] Performed By: #### 2 857-1 #### [facility] CLIA [id number] [address] [place] [address] [place] ALT [Catalytic activity/Vol] 10 U/L Normal 10-54 [facility] Comment on above: Order Comment: Speci men Type: BLOOD SPECIMEN Ordering Facility: [facility] Address: [address] [place] [address] Performed By: #### 2 857-1 #### [facility] CLIA [id number] [address] [place] [address] [place] Anion gap [Moles/Vol] 11 mmol/L Normal 8-15 [facility] Comment on above: Order Comment: Speci men Type: BLOOD SPECIMEN Ordering Facility: [facility] Address: [address] [place] [address] Performed By: #### 2 857-1 #### [facility] CLIA [id number] [address] [place] [address] [place] AST [Catalytic activity/Vol] 16 U/L Normal 14-40 [facility] Comment on above: Order Comment: Speci men Type: BLOOD SPECIMEN Ordering Facility: [facility] Address: [address] [place] [address] Performed By: #### 2 857-1 #### [facility] CLIA [id number] [address] [place] [address] [place] Bilirubin [Mass/Vol] 0.4 mg/dL Normal 0.2-1.3 [facility] Comment on above: Order Comment: Speci men Type: BLOOD SPECIMEN Ordering Facility: [facility] Address: [address] [place] [address] Performed By: #### 2 857-1 #### [facility] CLIA [id number] [address] [place] [address] [place] Calcium [Mass/Vol] 9.4 mg/dL Normal 8.5-10.2 [facility] Comment on above: Order Comment: Speci men Type: BLOOD SPECIMEN Ordering Facility: [facility] Address: [address] [place] [address] Performed By: #### 2 857-1 #### [facility] CLIA [id number] [address] [place] [address] [place] Chloride [Moles/Vol] 103 mmol/L Normal 98-107 [facility] Comment on above: Order Comment: Speci men Type: BLOOD SPECIMEN Ordering Facility: [facility] Address: [address] [place] [address] Performed By: #### 2 857-1 #### [facility] CLIA [id number] [address] [place] [address] [place] CO2 [Moles/Vol] 26 mmol/L Normal 22-30 [facility] Comment on above: Order Comment: Speci nirav Type: BLOOD SPECIMEN Ordering Facility: [facility] Address: [address] [place] [address] Performed By: #### 2 857-1 #### [facility] IA [id number] [address] [place] [address] [place] Creatinine [Mass/Vol] 0.70 mg/dL Low 0.73-1.22 [facility] Comment on above: Order Comment: Lexusi men Type: BLOOD SPECIMEN Ordering Facility: [facility] Address: [address] [place] [address] Performed By: #### 2 857-1 #### [facility] IA [id number] [address] [place] [address] [place] Creatinine and Glomerular filtration rate.predicted panel (S/P/Bld) 99 mL/min/1.73m??? Normal >=60 [facility] Comment on above: Order Comment: Speci men Type: BLOOD SPECIMEN Ordering Facility: [facility] Address: [address] [place] [address] Result Comment: Rahel mated Glomerular Filtration Rate (eGFR) is calculated using the 2020 CKD-EPI creatinine equation. This equation utilizes serum creatinine, sex, and age as parameters. The creatinine assay has traceable calibration to isotope dilution-mass spectrometry. Refer to KDIGO guidelines for clinical interpretation. In patients with unstable renal function, e.g. those with acute kidney injury, the eGFR may not accurately reflect actual GFR. Performed By: #### 2 857-1 #### [facility] [place] [id number] [address] [place] [address] [place] Glucose [Mass/Vol] 97 mg/dL Normal 74-99 [facility] Comment on above: Order Comment: Lexusi men Type: BLOOD SPECIMEN Ordering Facility: [facility] Address: [address] [place] [address] Result Comment: The [place] Diabetes Association (ADA) provides guidance for cutoff values for fasting glucose and random glucose. The ADA defines fasting as no caloric intake for at least 8 hours. Fasting plasma glucose results between 100 to 125 mg/dL indicate increased risk for diabetes (prediabetes). Fasting plasma glucose results greater than or equal to 126 mg/dL meet the criteria for diagnosis of diabetes. In the absence of unequivocal hyperglycemia, results should be confirmed by repeat testing. In a patient with classic symptoms of hyperglycemia or hyperglycemic crisis, random plasma glucose results greater than or equal to 200 mg/dL meet the criteria for diagnosis of diabetes. Reference: Standards of Medical Care in Diabetes 2016, [place] Diabetes [employer]. Diabetes Care. 2016.39(Suppl 1). Performed By: #### 2 857-1 #### [facility] CLIA [id number] [address] [place] [address] [place] Potassium [Moles/Vol] 4.1 mmol/L Normal 3.7-5.1 [facility] Comment on above: Order Comment: Speci men Type: BLOOD SPECIMEN Ordering Facility: [facility] Address: [address] [place] [address] Performed By: #### 2 857-1 #### [facility] CLIA [id number] [address] [place] [address] [place] Protein [Mass/Vol] 6.5 g/dL Normal 6.3-8.0 [facility] Comment on above: Order Comment: Speci men Type: BLOOD SPECIMEN Ordering Facility: [facility] Address: [address] [place] [address] Performed By: #### 2 857-1 #### [facility] CLIA [id number] [address] [place] [address] [place] Sodium [Moles/Vol] 140 mmol/L Normal 136-144 [facility] Comment on above: Order Comment: Speci men Type: BLOOD SPECIMEN Ordering Facility: [facility] Address: [address] [place] [address] Performed By: #### 2 857-1 #### [facility] CLIA [id number] [address] [place] [address] [place] Urea nitrogen [Mass/Vol] 10 mg/dL Normal 9-24 [facility] Comment on above: Order Comment: Speci men Type: BLOOD SPECIMEN Ordering Facility: [facility] Address: [address] [place] [address] Performed By: #### 2 857-1 #### [facility] CLIA [id number] [address] [place] [address] [place] PSA SerPl-mCncon 09-24-2024 Prostate specific Ag [Mass/Vol] 1.18 ng/mL Normal <2.60 [facility] Comment on above: Order Comment: Speci men Type: BLOOD SPECIMEN Ordering Facility: [facility] Address: [address] [place] [address] Result Comment: Tota l PSA test methodology used is the Electrochemiluminescence Immunoassay by [employer]. Total PSA values by differing methodologies cannot be interchanged. Performed By: #### 2 857-1 #### [facility] IA [id number] [address] [place] [address] [place] CNPNon 09-18-2024 CNPN Telephone (GIANCARLO) AMIE KILLIAN ([id number]) 1955 M Date Time Provider Department 09/18/24 LISA ALBRIGHT During your visit today, we recorded the following information about you: Lisa Albright LISW 09/18/2024 10:10 AM Signed SOCIAL WORK FOLLOW UP NOTE: [facility] Date of service: September 18, 2024 Amie Killian is being seen for a follow up social work visit. Today's visit includes: patient TOPICS ADDRESSED: SW met with pt this date and reviewed mailing received from [facility]. SW discussed with pt needing to reapply for the Xtandi assistance program. Pt in agreement. Application completed this date with pt. SW completed the HCP portion of application and will review with physician when he is back in office tomorrow, 09/19. SW to fax to [employer] once completed and will send to internal scanning. Pt confirms he has another bottle of Xtandi remaining at home. No other needs identified at this time. PLAN: Assist with financial support applications and Continue follow up as needed F/U APPOINTMENT: PRN Assigned SW listed in Care Team tab: Yes GEMMA Heck Samantha, LISW 10/04/2024 11:20 AM Signed SOCIAL WORK FOLLOW UP NOTE: [facility] Date of service: October 04, 2024 Fax received this date that pt has been approved for free Xtandi from 10/03/24-09/10/25. Fax states pharmacy will reach out to pt to arrange shipment. Fax sent to internal scanning, no other needs identified. [employer] P: [phone] [facility] P: [phone] GEMMA Heck Allergies As of Date: 09/18/2024 Noted Allergy Reaction DOXYCYCLINE 12/30/2014 8 - GI Upset Comments: Unsure if he really has SE to this medication Date Reviewed: 07/16/2024 Reviewed by: Zakia Elam MA - Fully Assessed Reason for Visit: 2024 Xtandi Assistance Renewal [Other] Prescriptions as of 10/04/2024 - enzalutamide (XTANDI) 40 mg tablet Take 4 tablets (160 mg) by mouth once daily. - BREO ELLIPTA 200-25 mcg/dose inhaler Inhale 1 Inhalation as instructed once daily. - cilostazol (PLETAL) 100 mg tablet Take 1 tablet by mouth twice daily - hydrocortisone (PROCTO-CHEN) 1 % crpe 1 application by RECTAL route two times a day as needed. - calcium carbonate/vitamin D3 (CALCIUM 600 + D ORAL) Take 2 tablets by mouth once daily. Calcium 600mg+Vitamin D3 800 international units per tablet - docusate sodium (COLACE) 100 mg capsule Take 100 mg by mouth once daily as needed for constipation. - aspirin, enteric coated (ASPIRIN, ENTERIC COATED) 81 mg EC tablet Take 81 mg by mouth once daily. - multivitamin (MULTIPLE VITAMINS ORAL) Take 1 capsule by mouth once daily. 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 Hyperlipidemia [E78.5] 08/17/2012 Elevated PSA [R97.20] 05/09/2016 Jaundice [R17] 07/09/2020 Non-Hodgkin lymphoma of intra-abdominal lymph n*07/10/2020 Elevated liver transaminase level [R74.01] 07/10/2020 Pain [R52] 07/10/2020 History of hepatitis C [Z86.19] 07/13/2020 PAD (peripheral artery disease) (HCC) [I73.9] 01/19/2021 Diffuse large B-cell lymphoma of intra-abdomina*06/10/2021 Lesion of liver [K76.9] 06/10/2021 Malignant neoplasm metastatic to bone (HCC) [C7*07/16/2021 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] 07/16/2021 Urinary incontinence [R32] 01/11/2022 Protein-calorie malnutrition, unspecified sever*01/13/2023 07/17/2023 Encounter Status:Closed by LISA ALBRIGHT on 09/18/24 [facility] Jose De Jesus 09-12-2024 CNPN Telephone (FAMPWS) AMIE KILLIAN ([id number]) 1955 M Date Time Provider Department 09/12/24 APOLLO MELO During your visit today, we recorded the following information about you: MaluBarbara rockwelly 09/12/2024 11:11 AM Signed Alejandro is calling Apollo Melo MD today with concern regarding Medication Problem Patient is calling regarding medication BREO ELLIPTA 200-25 mcg/dose inhaler. Patient states the medication is too expensive. Patient talked to the insurance pharmacy and they suggested patient get a peer reduction This would bring the medication down to Tier 1 or 2. Patient states he was told this would be the same medication. Please call the [facility] [phone] Patient is also asking if doctor has samples of the medication because he is running low on the medication. Patient has been identified by name and birthdate. Duration of symptoms: N/A Person calling: self Call patient at: on cell [phone] (home) [phone] (cell) Was an appointment scheduled: No Closing statement: Results or non-symptom based questions: Thank you for calling [facility], your call will be returned within the next business day. Zakia Michelle MA 09/12/2024 11:14 AM Signed See message below from pt and advise. Do you want to do the Tier reduction or switch inhalers? We also do not carry samples in the office. MYRA Arshad Mark D, MD 09/12/2024 4:55 PM Signed OK to call the insurance company and see what is required for a reduction, or if they jeremie an equivalent medication MD Elena Gerard Krystle, RN 09/13/2024 10:11 AM Signed Patient calls and message below reviewed. Patient reports he is completely out of inhaler and going to have to just pay for the medication. Patient didn't want to contact insurance to check on a covered equivalent medication. Patient reports the first month is 297 which is his deductible. HÉCTOR Hirsch Mark D, MD 09/17/2024 4:58 PM Signed Noted; I sent in a new prescription in case he needed it Apollo Melo MD Allergies As of Date: 09/12/2024 Noted Allergy Reaction DOXYCYCLINE 12/30/2014 8 - GI Upset Comments: Unsure if he really has SE to this medication Date Reviewed: 07/16/2024 Reviewed by: Zakia Elam MA - Fully Assessed Reason for Visit: Medication Problem [65] Visit Diagnosis:Chronic obstructive pulmonary disease, unspecified COPD type (HCC) [J44.9] Order(s):BREO ELLIPTA 200-25 mcg/dose inhalerInhale 1 Inhalation as instructed once daily.Disp: 60 EachRfl: 11 Prescriptions as of 09/19/2024 - BREO ELLIPTA 200-25 mcg/dose inhaler Inhale 1 Inhalation as instructed once daily. - cilostazol (PLETAL) 100 mg tablet Take 1 tablet by mouth twice daily - hydrocortisone (PROCTO-CHEN) 1 % crpe 1 application by RECTAL route two times a day as needed. - enzalutamide (XTANDI) 40 mg tablet Take 4 tablets (160 mg) by mouth once daily. - calcium carbonate/vitamin D3 (CALCIUM 600 + D ORAL) Take 2 tablets by mouth once daily. Calcium 600mg+Vitamin D3 800 international units per tablet - docusate sodium (COLACE) 100 mg capsule Take 100 mg by mouth once daily as needed for constipation. - aspirin, enteric coated (ASPIRIN, ENTERIC COATED) 81 mg EC tablet Take 81 mg by mouth once daily. - multivitamin (MULTIPLE VITAMINS ORAL) Take 1 capsule by mouth once daily. 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 Hyperlipidemia [E78.5] 08/17/2012 Elevated PSA [R97.20] 05/09/2016 Jaundice [R17] 07/09/2020 Non-Hodgkin lymphoma of intra-abdominal lymph n*07/10/2020 Elevated liver transaminase level [R74.01] 07/10/2020 Pain [R52] 07/10/2020 History of hepatitis C [Z86.19] 07/13/2020 PAD (peripheral artery disease) (HCC) [I73.9] 01/19/2021 Diffuse large B-cell lymphoma of intra-abdomina*06/10/2021 Lesion of liver [K76.9] 06/10/2021 Malignant neoplasm metastatic to bone (HCC) [C7*07/16/2021 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 Medications Discontinued During This Encounter Prescriptions - BREO ELLIPTA 200-25 mcg/dose inhaler (Discontinued) Inhale 1 Inhalation (more content not included)... Normal [facility] CNOVon 07-16-2024 CNOV Office Visit (FAMPWS ) AMIE KILLIAN ([id number]) 1955 M Date Time Provider Department 07/16/24 9:40 AM APOLLO MELOWS During your visit today, we recorded the following information about you: Pulse Respiration Blood pressure Weight 76/minute 16/minute 112/74 53.7 kg Apollo Melo MD 07/16/2024 9:51 AM Signed Chief Complaint Patient presents with: F/U 6 Month HPI Amie Killian is a 69 year old male who presents here today for 6 month follow up. No bowel, Gi, or urinary issues. Uses colace as needed for constipation. Also has hydrocortisone suppositories he can uses prn. Had some urinary incontinence which he wears pads. Gets up once a night to urinate. Did note some concern with his PSA slightly increasing but this was discussed with Hem/Onc. Following with Hem/Onc Dr. Perez for prostate cancer, liver lesion, and Diffuse large B-cell lymphoma of intra-abdominal lymph nodes. Taking Xtandi 40 mg 4 pills once a day. PAD/Lipid: Currently on Pletal 100 mg 1 tab po bid. Admits he doesn't eat the way he should. Eats 1-2 x per day, with snacking on junk later on in the day and after he eats his bigger meal. Playing a lot of golf for exercise, about 3-4 x per week. May be the last day for golf today, but if the weather stays nice he will play. Can't play in the cold like he used too. Legs do get tired due to PAD. Once golf season is over he will go to the [facility]. Also does yard work. Follows with Vascular, Dr. Corona. COPD: Continued smoker, 0.5 - 1 ppd, no thoughts on quitting at this time due to his age. Uses Breo Ellipita once daily. Has not used ProAir Inhaler in quite some time. Overall feels his breathing is doing pretty well. Knows his limits with activities to make him get out of breath. Asking if the Navage is good to use. Feels at times he can't breathe out of his nose and will have to breathe out of his mouth. Will use Vix sticks to help open up his nasal passages. Discussed doing PFT testing, which pt is agreeable to do. Denies lung cancer screening. HM - Declines Covid and Shingles at this time, is undecided. Did receive Flu vaccine. Is thinking about RSV vaccine, will more than likely get through Pharmacy, generally receives vaccines through Pharmacy. Has Adv Dir/Living Will scanned into chart. Past medical history, appointments, medications, allergies reviewed. Previous Medical History PAST MEDICAL HISTORY Diagnosis Date Fistula Lesion of liver 06/10/2021 Non Hodgkin's lymphoma (HCC) PAD (peripheral artery disease) (HCC) Prostate cancer (HCC) 12/2011 Previous Surgical History PAST SURGICAL HISTORY Procedure Laterality Date ABDOMINAL SURGERY HX APPENDECTOMY HX COLONOSCOPY 12/24/2021 repeat in 5 years COLONOSCOPY FLX DX W/COLLJ SPEC WHEN PFRMD 02/15/2016 Colonoscopy IMPLANT CATH INSERTION (AG) 07/30/2020 IVAD right chest INCISE FINGER TENDON SHEATH Left 08/26/2021 Left middle and ring trigger finger releases PAST SURGICAL HISTORY OF appendectomy PAST SURGICAL HISTORY OF tonsilectomy PROSTATECTOMY, SIMPLE, BENIGN 01/03/2012 prostate removed TONSILLECTOMY HX Family History FAMILY HISTORY Problem Relation Age of Onset Heart Father of SC age 80 Stroke Mother Heart Brother Patient Allergies ALLERGIES Allergen Reactions Doxycycline GI Upset Unsure if he really has SE to this medication Current Medications Current Outpatient Medications on File Prior to Visit Medication Sig BREO ELLIPTA 200-25 mcg/dose inhaler Inhale 1 Inhalation as instructed once daily. enzalutamide (XTANDI) 40 mg tablet Take 4 tablets (160 mg) by mouth once daily. cilostazol (PLETAL) 100 mg tablet Take 1 tablet by mouth two times a day. hydrocortisone (PROCTO-CHEN) 1 % crpe 1 application by RECTAL route two times a day as needed. calcium carbonate/vitamin D3 (CALCIUM 600 + D ORAL) Take 2 tablets by mouth once daily. Calcium 600mg+Vitamin D3 800 international units per tablet docusate sodium (COLACE) 100 mg capsule Take 100 mg by mouth once daily as needed for constipation. aspirin, enteric coated (ASPIRIN, ENTERIC COATED) 81 mg EC tablet Take 81 mg by mouth once daily. multivitamin (MULTIPLE VITAMINS ORAL) Take 1 capsule by mouth once daily. albuterol HFA (PROAIR HFA) 90 mcg/actuation inhaler Inhale 2 Puffs as instructed every 4 hours as needed. No current facility-administered medications on file prior to visit. Social History Social History Tobacco Use Smoking status: Every Day Current packs/day: 0.75 Average packs/day: 0.8 packs/day for 47.0 years (35.3 ttl pk-yrs) Types: Cigarettes Smokeless tobacco: Never Vaping Use Vaping status: Never Used Substance Use Topics Alcohol use: Not Currently Comment: Drug use: No EXAM: BP 112/74 (BP Site: Left Arm, BP Position: Sitting, BP Cuff Size: Regular Adul (more content not included)... Normal [facility] CNOVSPon 07-04-2024 CNOVSP Visit (SP) Office (H EMAWS) AGUILAJMAMIE CHANEL ([id number]) 1955 M Date Time Provider Department 07/04/24 9:40 AM FRANCISCO JAVIER PEREZ During your visit today, we recorded the following information about you: Temperature Pulse Blood pressure Weight 97 degrees 68/minute 150/95 54 kg Francisco Javier Perez MD 07/04/2024 11:23 AM Signed (Elements copied from my note dated October 27, 2023, have been reviewed and updated where appropriate, and all reflect current assessment and medical decision making from today's encounter, July 04, 2024) HISTORY OF PRESENT ILLNESS: Amie Killian is a 68 year old male with a history of diffuse large cell lymphoma. This has been in complete remission with no evidence of recurrence after completion of 5 cycles of CHOP Rituxan completed 10-14-20. 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 Not extensive or present elsewhere therefore has been appropriately monitored without therapeutic intervention. In 2011 underwent radical prostatectomy followed by postop adjuvant radiation because of high risk prostatic cancer. Bone metastasis were subsequently detected and has been started and was maintained on Zytiga and prednisone plus Lupron. switched to Xtandi November 28, 2022 due to loss of the financial support from [employer]. Here for follow up, doing well. Labs reviewed. Edentulous. No pain or urinary issues. PSA slowly increasing, DT about 1 year Lupron/CAB since 06-17-21 CLINICAL IMPRESSION: Prostate cancer with bone mets History DLCL, clinically remains in remission RECOMMENDATION/PLAN: 1. Continue CAB GnRH and enzalutamide 2. Bisphosphonate every 3 months Written and verbal health teaching given to patient, patient verbalizes understanding and agrees with treatment plan. PAST MEDICAL HISTORY Diagnosis Date Fistula Lesion of liver 06/10/2021 Non Hodgkin's lymphoma (HCC) PAD (peripheral artery disease) (HCC) Prostate cancer (HCC) 12/2011 PAST SURGICAL HISTORY Procedure Laterality Date ABDOMINAL SURGERY HX APPENDECTOMY HX COLONOSCOPY 12/24/2021 repeat in 5 years COLONOSCOPY FLX DX W/COLLJ SPEC WHEN PFRMD 02/15/2016 Colonoscopy IMPLANT CATH INSERTION (AG) 07/30/2020 IVAD right chest INCISE FINGER TENDON SHEATH Left 08/26/2021 Left middle and ring trigger finger releases PAST SURGICAL HISTORY OF appendectomy PAST SURGICAL HISTORY OF tonsilectomy PROSTATECTOMY, SIMPLE, BENIGN 01/03/2012 prostate removed TONSILLECTOMY HX FAMILY HISTORY Problem Relation Age of Onset Heart Father of SC age 80 Stroke Mother Heart Brother Social History Tobacco Use Smoking status: Every Day Current packs/day: 0.75 Average packs/day: 0.8 packs/day for 47.0 years (35.3 ttl pk-yrs) Types: Cigarettes Smokeless tobacco: Never Vaping Use Vaping status: Never Used Substance Use Topics Alcohol use: Not Currently Comment: Drug use: No ALLERGIES: ALLERGIES Allergen Reactions Doxycycline GI Upset Unsure if he really has SE to this medication CURRENT OUTPATIENT MEDICATIONS: enzalutamide (XTANDI) 40 mg tabletTake 4 tablets (160 mg) by mouth once daily.Disp: 120 tabletRfl: 3 cilostazol (PLETAL) 100 mg tabletTake 1 tablet by mouth two times a day.Disp: 180 tabletRfl: 3 hydrocortisone (PROCTO-CHEN) 1 % crpe1 application by RECTAL route two times a day as needed.Disp: 28.4 gRfl: 2 BREO ELLIPTA 200-25 mcg/dose inhalerINHALE 1 PUFF BY MOUTH ONCE DAILY DIRECTED. DO NOT CLICK OPEN UNTIL READY FOR DOSEDisp: 60 EachRfl: 11 calcium carbonate/vitamin D3 (CALCIUM 600 + D ORAL)Take 2 tablets by mouth once daily. Calcium 600mg+Vitamin D3 800 international units per tabletDisp: Rfl: docusate sodium (COLACE) 100 mg capsuleTake 100 mg by mouth once daily as needed for constipation.Disp: Rfl: aspirin, enteric coated (ASPIRIN, ENTERIC COATED) 81 mg EC tabletTake 81 mg by mouth once daily.Disp: Rfl: multivitamin (MULTIPLE VITAMINS ORAL)Take 1 capsule by mouth once daily.Disp: Rfl: albuterol HFA (PROAIR HFA) 90 mcg/actuation inhalerInhale 2 Puffs as instructed every 4 hours as needed.Disp: 1 InhalerRfl: 11 REVIEW OF SYSTEMS: GENERAL: No fever, night sweats, weight loss or malaise. All other reviewed and negative other than HPI. PHYSICAL EXAMINATION: VITAL SIGNS: BP 150/95 Pulse 68 Temp (Src) 97 (Temporal) Wt 119 lb (54.0kg) SpO2 99% GENERAL APPEARANCE: Well appearing, in no acute distress, alert and oriented x3, well-hydrated, well nourished. NECK: Supple, no JVD or lymphadenopathy, thyroid symmetric, normal size, no bruits. ABDOMEN: Abdomen soft, non-tender with no organomegaly, bowel sounds normal, no masses. EXTREMITIES: no adenopathy I spent a total of 20 minutes on the date of the service which included preparing to see the patient, [id number] patient care, completing clinical documenta (more content not included)... [facility] AMIE KILLIAN ([id number]) 1955 M Date Time Provider Department 07/04/24 9:30 AM TREATMENT RM 15 [facility] During your visit today, we recorded the following information about you: Referring Provider: FRANCISCO JAVIER PEREZ [[id number]] Allergies As of Date: 07/04/2024 Noted Allergy Reaction DOXYCYCLINE 12/30/2014 8 - GI Upset Comments: Unsure if he really has SE to this medication Date Reviewed: 07/04/2024 Reviewed by: Jax Patel MA - Fully Assessed Primary Visit Diagnosis:Prostate cancer (HCC) [C61] Other Visit Diagnosis:Malignant neoplasm metastatic to bone (HCC) [C79.51] Order(s):PHARMACY COMMUNICATION PATIENT ARRIVEDDisp: Rfl: [] zoledronic [id number]-6.9NaCl 4 mg iv piggyback 100 mL (ZOMETA)Disp: Rfl: BCN NURSING COMMUNICATION [[id number]] Order #: [id number]: 1 STANDING Prescriptions as of 07/04/2024 - enzalutamide (XTANDI) 40 mg tablet Take 4 tablets (160 mg) by mouth once daily. - cilostazol (PLETAL) 100 mg tablet Take 1 tablet by mouth two times a day. - hydrocortisone (PROCTO-CHEN) 1 % crpe 1 application by RECTAL route two times a day as needed. - BREO ELLIPTA 200-25 mcg/dose inhaler INHALE 1 PUFF BY MOUTH ONCE DAILY DIRECTED. DO NOT CLICK OPEN UNTIL READY FOR DOSE - calcium carbonate/vitamin D3 (CALCIUM 600 + D ORAL) Take 2 tablets by mouth once daily. Calcium 600mg+Vitamin D3 800 international units per tablet - docusate sodium (COLACE) 100 mg capsule Take 100 mg by mouth once daily as needed for constipation. - aspirin, enteric coated (ASPIRIN, ENTERIC COATED) 81 mg EC tablet Take 81 mg by mouth once daily. - multivitamin (MULTIPLE VITAMINS ORAL) Take 1 capsule by mouth once daily. - albuterol HFA (PROAIR HFA) 90 mcg/actuation inhaler Inhale 2 Puffs as instructed every 4 hours as needed. 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 Hyperlipidemia [E78.5] 08/17/2012 Elevated PSA [R97.20] 05/09/2016 Jaundice [R17] 07/09/2020 Non-Hodgkin lymphoma of intra-abdominal lymph n*07/10/2020 Elevated liver transaminase level [R74.01] 07/10/2020 Pain [R52] 07/10/2020 History of hepatitis C [Z86.19] 07/13/2020 PAD (peripheral artery disease) (HCC) [I73.9] 01/19/2021 Diffuse large B-cell lymphoma of intra-abdomina*06/10/2021 Lesion of liver [K76.9] 06/10/2021 Malignant neoplasm metastatic to bone (HCC) [C7*07/16/2021 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 ALP [Catalytic activity/Vol] 68 U/L 38 - 113 U/L [facility] ALT [Catalytic activity/Vol] 6 U/L Low 10 - 54 U/L [facility] Anion gap [Moles/Vol] 13 mmol/L 8 - 15 mmol/L [facility] AST [Catalytic activity/Vol] 13 U/L Low 14 - 40 U/L [facility] Bilirubin [Mass/Vol] 0.4 mg/dL 0.2 - 1.3 mg/dL [facility] Calcium [Mass/Vol] 9.8 mg/dL 8.5 - 10. 2 mg/dL [facility] Chloride [Moles/Vol] 101 mmol/L 98 - 107 mmol/L [facility] CO2 [Moles/Vol] 26 mmol/L 22 - 30 mmol/L [facility] Creatinine [Mass/Vol] 0.73 mg/dL 0.73 - 1.22 mg/dL [facility] GFR/1.73 sq M.predicted among non-blacks MDRD (S/P/Bld) [Vol rate/Area] 98 mL/min/{1.73_m2} - PINF [facility] Comment on above: Estimated Glomerular Filtration Rate (eGFR) is calculated using the 2020 CKD-EPI creatinine equation. This equation utilizes serum creatinine, sex, and age as parameters. The creatinine assay has traceable calibration to isotope dilution-mass spectrometry. Refer to KDIGO guidelines for clinical interpretation. In patients with unstable renal function, e.g. those with acute kidney injury, the eGFR may not accurately reflect actual GFR. Glucose [Mass/Vol] 114 mg/dL High 74 - 99 mg/dL [facility] Comment on above: The [place] [employer] Association (ADA) provides guidance for cutoff values for fasting glucose and random glucose. The ADA defines fasting as no caloric intake for at least 8 hours. Fasting plasma glucose results between 100 to 125 mg/dL indicate increased risk for diabetes (prediabetes). Fasting plasma glucose results greater than or equal to 126 mg/dL meet the criteria for diagnosis of diabetes. In the absence of unequivocal hyperglycemia, results should be confirmed by repeat testing. In a patient with classic symptoms of hyperglycemia or hyperglycemic crisis, random plasma glucose results greater than or equal to 200 mg/dL meet the criteria for diagnosis of diabetes. Reference: Standards of Medical Care in Diabetes 2016, [place] [employer]. Diabetes Care. 2016.39(Suppl 1). Interpretation and review of laboratory results Abnormal [facility] Potassium [Moles/Vol] 3.6 mmol/L Low 3.7 - 5.1 mmol/L [facility] Protein [Mass/Vol] 6.6 g/dL 6.3 - 8.0 g/dL [facility] Sodium [Moles/Vol] 140 mmol/L 136 - 144 mmol/L [facility] Urea nitrogen [Mass/Vol] 10 mg/dL 9 - 24 mg/dL [facility] metabolic 2000 panelon 07-02-2024 Albumin [Mass/Vol] 4.3 g/dL Normal 3.9-4.9 [facility] Comment on above: Order Comment: Speci men Type: BLOOD SPECIMEN Ordering Facility: [facility] Address: [address] [place] [address] Performed By: #### 2 [id number] #### [facility] CLIA [id number] [address] [place] [address] [id number] [place] [address] [place] ALP [Catalytic activity/Vol] 68 U/L Normal 38-113 [facility] Comment on above: Order Comment: Speci men Type: BLOOD SPECIMEN Ordering Facility: [facility] Address: [address] [place] [address] Performed By: #### 2 857-1 #### [facility] CLIA [id number] [address] [place] [address] [place] ALT [Catalytic activity/Vol] 6 U/L Low 10-54 [facility] Comment on above: Order Comment: Speci men Type: BLOOD SPECIMEN Ordering Facility: [facility] Address: [address] [place] [address] Performed By: #### 2 857-1 #### [facility] CLIA [id number] [address] [place] [address] [place] Anion gap [Moles/Vol] 13 mmol/L Normal 8-15 [facility] Comment on above: Order Comment: Speci men Type: BLOOD SPECIMEN Ordering Facility: [facility] Address: [address] [place] [address] Performed By: #### 2 857-1 #### [facility] CLIA [id number] [address] [place] [address] [place] AST [Catalytic activity/Vol] 13 U/L Low 14-40 [facility] Comment on above: Order Comment: Speci men Type: BLOOD SPECIMEN Ordering Facility: [facility] Address: [address] [place] [address] Performed By: #### 2 857-1 #### [facility] CLIA [id number] [address] [place] [address] [place] Bilirubin [Mass/Vol] 0.4 mg/dL Normal 0.2-1.3 [facility] Comment on above: Order Comment: Speci men Type: BLOOD SPECIMEN Ordering Facility: [facility] Address: [address] [place] [address] Performed By: #### 2 857-1 #### [facility] CLIA [id number] [address] [place] [address] [place] Calcium [Mass/Vol] 9.8 mg/dL Normal 8.5-10.2 [facility] Comment on above: Order Comment: Speci men Type: BLOOD SPECIMEN Ordering Facility: [facility] Address: [address] [place] [address] Performed By: #### 2 857-1 #### [facility] CLIA [id number] [address] [place] [address] [place] Chloride [Moles/Vol] 101 mmol/L Normal 98-107 [facility] Comment on above: Order Comment: Speci men Type: BLOOD SPECIMEN Ordering Facility: [facility] Address: [address] [place] [address] Performed By: #### 2 857-1 #### [facility] CLIA [id number] [address] [place] [address] [place] CO2 [Moles/Vol] 26 mmol/L Normal 22-30 [facility] Comment on above: Order Comment: Speci men Type: BLOOD SPECIMEN Ordering Facility: [facility] Address: [address] [place] [address] Performed By: #### 2 857-1 #### [facility] CLIA [id number] [address] [place] [address] [place] Creatinine [Mass/Vol] 0.73 mg/dL Normal 0.73-1.22 [facility] Comment on above: Order Comment: Speci men Type: BLOOD SPECIMEN Ordering Facility: [facility] Address: [address] [place] [address] Performed By: #### 2 857-1 #### [facility] CLIA [id number] [address] [place] [address] [place] Creatinine and Glomerular filtration rate.predicted panel (S/P/Bld) 98 mL/min/1.73m??? Normal >=60 [facility] Comment on above: Order Comment: Hollis gastelum Type: BLOOD SPECIMEN Ordering Facility: [facility] Address: [address] [place] [address] Result Comment: Rahel mated Glomerular Filtration Rate (eGFR) is calculated using the 2020 CKD-EPI creatinine equation. This equation utilizes serum creatinine, sex, and age as parameters. The creatinine assay has traceable calibration to isotope dilution-mass spectrometry. Refer to KDIGO guidelines for clinical interpretation. In patients with unstable renal function, e.g. those with acute kidney injury, the eGFR may not accurately reflect actual GFR. Performed By: #### 2 857-1 #### [facility] CLIA [id number] [address] [place] [address] [place] Glucose [Mass/Vol] 114 mg/dL High 74-99 [facility] Comment on above: Order Comment: Hollis gastelum Type: BLOOD SPECIMEN Ordering Facility: [facility] Address: [address] [place] [address] Result Comment: The [place] Diabetes Association (ADA) provides guidance for cutoff values for fasting glucose and random glucose. The ADA defines fasting as no caloric intake for at least 8 hours. Fasting plasma glucose results between 100 to 125 mg/dL indicate increased risk for diabetes (prediabetes). Fasting plasma glucose results greater than or equal to 126 mg/dL meet the criteria for diagnosis of diabetes. In the absence of unequivocal hyperglycemia, results should be confirmed by repeat testing. In a patient with classic symptoms of hyperglycemia or hyperglycemic crisis, random plasma glucose results greater than or equal to 200 mg/dL meet the criteria for diagnosis of diabetes. Reference: Standards of Medical Care in Diabetes 2016, [place] Diabetes Association. Diabetes Care. 2016.39(Suppl 1). Performed By: #### 2 857-1 #### [facility] CLIA [id number] [address] [place] [address] [place] Potassium [Moles/Vol] 3.6 mmol/L Low 3.7-5.1 [facility] Comment on above: Order Comment: Hollis gastelum Type: BLOOD SPECIMEN Ordering Facility: [facility] Address: [address] [place] [address] Performed By: #### 2 857-1 #### [facility] CLIA [id number] [address] [place] [address] [place] Protein [Mass/Vol] 6.6 g/dL Normal 6.3-8.0 [facility] Comment on above: Order Comment: Speci men Type: BLOOD SPECIMEN Ordering Facility: [facility] Address: [address] [place] [address] Performed By: #### 2 857-1 #### [facility] CLIA [id number] [address] [place] [address] [place] Sodium [Moles/Vol] 140 mmol/L Normal 136-144 [facility] Comment on above: Order Comment: Speci men Type: BLOOD SPECIMEN Ordering Facility: [facility] Address: [address] [place] [address] Performed By: #### 2 857-1 #### [facility] CLIA [id number] [address] [place] [address] [place] Urea nitrogen [Mass/Vol] 10 mg/dL Normal 9-24 [facility] Comment on above: Order Comment: Speci men Type: BLOOD SPECIMEN Ordering Facility: [facility] Address: [address] [place] [address] Performed By: #### 2 857-1 #### [facility] CLIA [id number] [address] [place] [address] [place] PSA SerPl-mCncon 07-02-2024 Prostate specific Ag [Mass/Vol] 0.88 ng/mL Normal <2.60 [facility] Comment on above: Order Comment: Speci men Type: BLOOD SPECIMEN Ordering Facility: [facility] Address: [address] [place] [address] Result Comment: Tota l PSA test methodology used is the Electrochemiluminescence Immunoassay by Marialuisa zuuka!. Total PSA values by differing methodologies cannot be interchanged. Performed By: #### 2 857-1 #### [facility] CLIA [id number] [address] [place] [id number] [place] CNOVSPon 04-11-2024 CNOVSP Visit (SP) Office (H EMAWS) AMIE KILLIAN ([id number]) 1955 M Date Time Provider Department 04/11/24 9:00 AM TREATMENT RM 16 [facility] During your visit today, we recorded the following information about you: Temperature Pulse Respiration Blood pressure 97.4 degrees 64/minute 18/minute 142/89 Weight 53.8 kg Referring Provider: SEAN RODRIGUEZ [[id number]] Allergies As of Date: 04/11/2024 Noted Allergy Reaction DOXYCYCLINE 12/30/2014 8 - GI Upset Comments: Unsure if he really has SE to this medication Date Reviewed: 04/11/2024 Reviewed by: Zee Ritter RN - Fully Assessed Reason for Visit: Non-Chemotherapy Treatment [795] Primary Visit Diagnosis:Prostate cancer (HCC) [C61] Other Visit Diagnoses:Malignant neoplasm metastatic to bone (HCC) [C79.51] Diffuse large B-cell lymphoma of intra-abdominal lymph nodes (HCC) [C83.33] Lesion of liver [K76.9] Order(s):[] leuprolide 22.5 mg injection (LUPRON DEPOT)Disp: Rfl: NaCl 0.9% iv infusionDisp: Rfl: diphenhydrAMINE 50 mg injection (BENADRYL)Disp: Rfl: hydrocortisone sodium succinate (PF) 100 mg injection (Solu-CORTEF)Disp: Rfl: EPINEPHrine HCl (PF) 1 mg/mL (1 mL) 0.3 mg injectionDisp: Rfl: PHARMACY COMMUNICATION PATIENT ARRIVEDDisp: Rfl: [] zoledronic yx-wxwdbaew-5.9NaCl 4 mg iv piggyback 100 mL (ZOMETA)Disp: Rfl: TREATMENT PARAMETER-NOT NEEDED [[id number]] Order #: [id number]: 1 BCN NURSING COMMUNICATION [[id number]] Order #: [id number]: 1 BCN NURSING COMMUNICATION [[id number]] Order #: [id number]: 1 STANDING BCN NURSING COMMUNICATION [[id number]] Order #: [id number]: 1 STANDING N NURSING COMMUNICATION [[id number]] Order #: [id number]: 1 STANDING Prescriptions as of 04/11/2024 - enzalutamide (XTANDI) 40 mg tablet Take 4 tablets (160 mg) by mouth once daily. - cilostazol (PLETAL) 100 mg tablet Take 1 tablet by mouth two times a day. - hydrocortisone (PROCTO-CHEN) 1 % crpe 1 application by RECTAL route two times a day as needed. - BREO ELLIPTA 200-25 mcg/dose inhaler INHALE 1 PUFF BY MOUTH ONCE DAILY DIRECTED. DO NOT CLICK OPEN UNTIL READY FOR DOSE - calcium carbonate/vitamin D3 (CALCIUM 600 + D ORAL) Take 2 tablets by mouth once daily. Calcium 600mg+Vitamin D3 800 international units per tablet - docusate sodium (COLACE) 100 mg capsule Take 100 mg by mouth once daily as needed for constipation. - aspirin, enteric coated (ASPIRIN, ENTERIC COATED) 81 mg EC tablet Take 81 mg by mouth once daily. - multivitamin (MULTIPLE VITAMINS ORAL) Take 1 capsule by mouth once daily. - albuterol HFA (PROAIR HFA) 90 mcg/actuation inhaler Inhale 2 Puffs as instructed every 4 hours as needed. Facility-Administered Medications as of 04/11/2024 - NaCl 0.9% iv infusion - diphenhydrAMINE 50 mg injection (BENADRYL) - hydrocortisone sodium succinate (PF) 100 mg injection (Solu-CORTEF) - EPINEPHrine HCl (PF) 1 mg/mL (1 mL) 0.3 mg injection - PHARMACY COMMUNICATION PATIENT ARRIVED Problem List As Of Date 04/11/2024 Noted Resolved TOBACCO USE DISORDER [F17.200] 09/15/2008 COPD (Chronic Obstructive Pulmonary Disease) [J*12/30/2009 Elevated PSA [R97.20] 10/20/2011 08/06/2014 BPH (benign prostatic hyperplasia) [N40.0] 10/20/2011 Urinary retention [R33.9] 10/20/2011 Renal cyst [N28.1] 10/20/2011 Bladder wall thickening [N32.89] 10/20/2011 Prostate cancer (HCC) [C61] 01/02/2012 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 Hyperlipidemia [E78.5] 08/17/2012 Elevated PSA [R97.20] 05/09/2016 Jaundice [R17] 07/09/2020 Non-Hodgkin lymphoma of intra-abdominal lymph n*07/10/2020 Elevated liver transaminase level [R74.01] 07/10/2020 Pain [R52] 07/10/2020 History of hepatitis C [Z86.19] 07/13/2020 PAD (peripheral artery disease) (HCC) [I73.9] 01/19/2021 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 ALP [Catalytic activity/Vol] 60 U/L 38 - 113 U/L [facility] ALT [Catalytic activity/Vol] 7 U/L Low 10 - 54 U/L [facility] Anion gap [Moles/Vol] 10 mmol/L 8 - 15 mmol/L [facility] AST [Catalytic activity/Vol] 13 U/L Low 14 - 40 U/L [facility] Bilirubin [Mass/Vol] 0.4 mg/dL 0.2 - 1.3 mg/dL [facility] Calcium [Mass/Vol] 9.7 mg/dL 8.5 - 10. 2 mg/dL [facility] Chloride [Moles/Vol] 104 mmol/L 98 - 107 mmol/L [facility] CO2 [Moles/Vol] 24 mmol/L 22 - 30 mmol/L [facility] Creatinine [Mass/Vol] 0.73 mg/dL 0.73 - 1.22 mg/dL [facility] GFR/1.73 sq M.predicted among non-blacks MDRD (S/P/Bld) [Vol rate/Area] 98 mL/min/{1.73_m2} - PINF [facility] Comment on above: Estimated Glomerular Filtration Rate (eGFR) is calculated using the 2020 CKD-EPI creatinine equation. This equation utilizes serum creatinine, sex, and age as parameters. The creatinine assay has traceable calibration to isotope dilution-mass spectrometry. Refer to KDIGO guidelines for clinical interpretation. In patients with unstable renal function, e.g. those with acute kidney injury, the eGFR may not accurately reflect actual GFR. Glucose [Mass/Vol] 130 mg/dL High 74 - 99 mg/dL [facility] Comment on above: The [place] Diab[employer] s Association (ADA) provides guidance for cutoff values for fasting glucose and random glucose. The ADA defines fasting as no caloric intake for at least 8 hours. Fasting plasma glucose results between 100 to 125 mg/dL indicate increased risk for diabetes (prediabetes). Fasting plasma glucose results greater than or equal to 126 mg/dL meet the criteria for diagnosis of diabetes. In the absence of unequivocal hyperglycemia, results should be confirmed by repeat testing. In a patient with classic symptoms of hyperglycemia or hyperglycemic crisis, random plasma glucose results greater than or equal to 200 mg/dL meet the criteria for diagnosis of diabetes. Reference: Standards of Medical Care in Diabetes 2016, [place] [employer]. Diabetes Care. 2016.39(Suppl 1). Interpretation and review of laboratory results Abnormal [facility] Potassium [Moles/Vol] 4.1 mmol/L 3.7 - 5.1 mmol/L [facility] Protein [Mass/Vol] 6.3 g/dL 6.3 - 8.0 g/dL [facility] Sodium [Moles/Vol] 138 mmol/L 136 - 144 mmol/L [facility] Urea nitrogen [Mass/Vol] 12 mg/dL 9 - 24 mg/dL [facility] metabolic 2000 panelon 04-09-2024 Albumin [Mass/Vol] 4.2 g/dL Normal 3.9-4.9 [facility] Comment on above: Order Comment: Speci men Type: BLOOD SPECIMEN Ordering Facility: [facility] Address: [address] [id number] Performed By: #### 2 857-1 #### [facility] CLIA [id number] [address] [place] [address] [place] ALP [Catalytic activity/Vol] 60 U/L Normal 38-113 [facility] Comment on above: Order Comment: Speci men Type: BLOOD SPECIMEN Ordering Facility: [facility] Address: [address] [place] [address] Performed By: #### 2 857-1 #### [facility] CLIA [id number] [address] [place] [address] [place] ALT [Catalytic activity/Vol] 7 U/L Low 10-54 [facility] Comment on above: Order Comment: Speci men Type: BLOOD SPECIMEN Ordering Facility: [facility] Address: [address] [place] [address] Performed By: #### 2 857-1 #### [facility] CLIA [id number] [address] [place] [address] [place] Anion gap [Moles/Vol] 10 mmol/L Normal 8-15 [facility] Comment on above: Order Comment: Speci men Type: BLOOD SPECIMEN Ordering Facility: [facility] Address: [address] [place] [address] Performed By: #### 2 857-1 #### [facility] CLIA [id number] [address] [place] [id number] [place] AST [Catalytic activity/Vol] 13 U/L Low 14-40 [facility] Comment on above: Order Comment: Speci men Type: BLOOD SPECIMEN Ordering Facility: [facility] Address: [address] [place] [address] Performed By: #### 2 857-1 #### [facility] CLIA [id number] [address] [place] [address] [place] Bilirubin [Mass/Vol] 0.4 mg/dL Normal 0.2-1.3 [facility] Comment on above: Order Comment: Speci men Type: BLOOD SPECIMEN Ordering Facility: [facility] Address: [address] [place] [address] Performed By: #### 2 857-1 #### [facility] CLIA [id number] [address] [place] [address] [place] Calcium [Mass/Vol] 9.7 mg/dL Normal 8.5-10.2 [facility] Comment on above: Order Comment: Speci men Type: BLOOD SPECIMEN Ordering Facility: [facility] Address: [address] [place] [address] Performed By: #### 2 857-1 #### [facility] CLIA [id number] [address] [place] [address] [place] Chloride [Moles/Vol] 104 mmol/L Normal 98-107 [facility] Comment on above: Order Comment: Speci men Type: BLOOD SPECIMEN Ordering Facility: [facility] Address: [address] [place] [address] Performed By: #### 2 857-1 #### [facility] CLIA [id number] [address] [place] [address] [place] CO2 [Moles/Vol] 24 mmol/L Normal 22-30 [facility] Comment on above: Order Comment: Speci men Type: BLOOD SPECIMEN Ordering Facility: [facility] Address: [address] [place] [address] Performed By: #### 2 857-1 #### [facility] CLIA [id number] [address] [place] [address] [place] Creatinine [Mass/Vol] 0.73 mg/dL Normal 0.73-1.22 [facility] Comment on above: Order Comment: Speci men Type: BLOOD SPECIMEN Ordering Facility: [facility] Address: [address] [place] [address] Performed By: #### 2 857-1 #### [facility] CLIA [id number] [address] [place] [address] [place] Creatinine and Glomerular filtration rate.predicted panel (S/P/Bld) 98 mL/min/1.73m??? Normal >=60 [facility] Comment on above: Order Comment: Hollis gastelum Type: BLOOD SPECIMEN Ordering Facility: [facility] Address: [address] [place] [address] Result Comment: Rahel mated Glomerular Filtration Rate (eGFR) is calculated using the 2020 CKD-EPI creatinine equation. This equation utilizes serum creatinine, sex, and age as parameters. The creatinine assay has traceable calibration to isotope dilution-mass spectrometry. Refer to KDIGO guidelines for clinical interpretation. In patients with unstable renal function, e.g. those with acute kidney injury, the eGFR may not accurately reflect actual GFR. Performed By: #### 2 857-1 #### [facility] CLIA [id number] [address] [place] [address] [place] Glucose [Mass/Vol] 130 mg/dL High 74-99 [facility] Comment on above: Order Comment: Hollis gastelum Type: BLOOD SPECIMEN Ordering Facility: [facility] Address: [address] [place] [address] Result Comment: The [place] Diabetes Association (ADA) provides guidance for cutoff values for fasting glucose and random glucose. The ADA defines fasting as no caloric intake for at least 8 hours. Fasting plasma glucose results between 100 to 125 mg/dL indicate increased risk for diabetes (prediabetes). Fasting plasma glucose results greater than or equal to 126 mg/dL meet the criteria for diagnosis of diabetes. In the absence of unequivocal hyperglycemia, results should be confirmed by repeat testing. In a patient with classic symptoms of hyperglycemia or hyperglycemic crisis, random plasma glucose results greater than or equal to 200 mg/dL meet the criteria for diagnosis of diabetes. Reference: Standards of Medical Care in Diabetes 2016, [place] [employer]. Diabetes Care. 2016.39(Suppl 1). Performed By: #### 2 857-1 #### [facility] CLIA [id number] [address] [place], [place] [id number] [place] Potassium [Moles/Vol] 4.1 mmol/L Normal 3.7-5.1 [facility] Comment on above: Order Comment: Speci men Type: BLOOD SPECIMEN Ordering Facility: [facility] Address: [address] [place] [address] Performed By: #### 2 857-1 #### [facility] CLIA [id number] [address] [place] [address] [place] Protein [Mass/Vol] 6.3 g/dL Normal 6.3-8.0 [facility] Comment on above: Order Comment: Speci men Type: BLOOD SPECIMEN Ordering Facility: [facility] Address: [address] [place] [address] Performed By: #### 2 857-1 #### [facility] CLIA [id number] [address] [place] [address] [place] Sodium [Moles/Vol] 138 mmol/L Normal 136-144 [facility] Comment on above: Order Comment: Speci men Type: BLOOD SPECIMEN Ordering Facility: [facility] Address: [address] [place] [address] Performed By: #### 2 857-1 #### [facility] CLIA [id number] [address] [place] [address] [place] Urea nitrogen [Mass/Vol] 12 mg/dL Normal 9-24 [facility] Comment on above: Order Comment: Speci men Type: BLOOD SPECIMEN Ordering Facility: [facility] Address: [address] [place] [address] Performed By: #### 2 857-1 #### [facility] CLIA [id number] [address] [place], [place] [id number] [place] HbA1c (Bld)on 04-09-2024 Average glucose Estimated from glycated hemoglobin (Bld) [Mass/Vol] 114 mg/dL Normal [facility] Comment on above: Order Comment: Speci men Type: BLOOD SPECIMEN Ordering Facility: [facility] Address: [address] [place] [address] Result Comment: eAG: (Estimated average glucose) is a calculated value from HgbA1c and is sales representative malt [employer]ors of the average blood glucose level in the last 2-3 month period. Performed By: #### 2 857-1 #### [facility] CLIA [id number] [address] [place] [address] [place] HbA1c (Bld) [Mass fraction] 5.6 % Normal 4.3-5.6 [facility] Comment on above: Order Comment: Speci men Type: BLOOD SPECIMEN Ordering Facility: [facility] Address: [address] [place] [address] Result Comment: [place] Diabetes Association guidelines indicate that patients with HgbA1c in the range 5.7-6.4% are at increased risk for development of diabetes, and intervention by lifestyle modification may be beneficial. HgbA1c greater or equal to 6.5% is considered diagnostic of diabetes. Performed By: #### 2 857-1 #### [facility] CLIA [id number] [address] [place] [address] [place] PSA [facility] Prostate specific Ag [Mass/Vol] 0.69 ng/mL Normal <2.60 [facility] [facility] Comment on above: Order Comment: Speci men Type: BLOOD SPECIMENOrdering Facility: [facility] Address: [address] [place] [address] Result Comment: Tota l PSA test methodology used is the Electrochemiluminescence Immunoassay by [employer]. Total PSA values by differing methodologies cannot be interchanged. Performed By: #### 2 [id number] ####[facility] LABCLIA [id number] [place] [address] [place] Comprehensive metabolic 2000 panelOrdered By: Verónica Mallory on 01-17-2024 Albumin [Mass/Vol] 4.0 g/dL 3.9 - 4.9 g/dL [facility] ALP [Catalytic activity/Vol] 61 U/L 38 - 113 U/L [facility] ALT [Catalytic activity/Vol] 6 U/L Low 10 - 54 U/L [facility] Anion gap [Moles/Vol] 7 mmol/L Low 9 - 18 mmol/L [facility] AST [Catalytic activity/Vol] 12 U/L Low 14 - 40 U/L [facility] Bilirubin [Mass/Vol] 0.4 mg/dL 0.2 - 1.3 mg/dL [facility] Calcium [Mass/Vol] 9.5 mg/dL 8.5 - 10. 2 mg/dL [facility] Chloride [Moles/Vol] 104 mmol/L 97 - 105 mmol/L [facility] CO2 [Moles/Vol] 27 mmol/L 22 - 30 mmol/L [facility] Creatinine [Mass/Vol] 0.79 mg/dL 0.73 - 1.22 mg/dL [facility] GFR/1.73 sq M.predicted among non-blacks MDRD (S/P/Bld) [Vol rate/Area] 96 mL/min/{1.73_m2} - PINF [facility] Comment on above: Estimated Glomerular Filtration Rate (eGFR) is calculated using the 2020 CKD-EPI creatinine equation. This equation utilizes serum creatinine, sex, and age as parameters. The creatinine assay has traceable calibration to isotope dilution-mass spectrometry. Refer to KDIGO guidelines for clinical interpretation. In patients with unstable renal function, e.g. those with acute kidney injury, the eGFR may not accurately reflect actual GFR. Glucose [Mass/Vol] 131 mg/dL High 74 - 99 mg/dL [facility] Comment on above: The [place] [employer] (ADA) provides guidance for cutoff values for fasting glucose and random glucose. The ADA defines fasting as no caloric intake for at least 8 hours. Fasting plasma glucose results between 100 to 125 mg/dL indicate increased risk for diabetes (prediabetes). Fasting plasma glucose results greater than or equal to 126 mg/dL meet the criteria for diagnosis of diabetes. In the absence of unequivocal hyperglycemia, results should be confirmed by repeat testing. In a patient with classic symptoms of hyperglycemia or hyperglycemic crisis, random plasma glucose results greater than or equal to 200 mg/dL meet the criteria for diagnosis of diabetes. Reference: Standards of Medical Care in Diabetes 2016, [place] [employer]. Diabetes Care. 2016.39(Suppl 1). Interpretation and review of laboratory results Abnormal [facility] Potassium [Moles/Vol] 3.7 mmol/L 3.7 - 5.1 mmol/L [facility] Protein [Mass/Vol] 6.4 g/dL 6.3 - 8.0 g/dL [facility] Sodium [Moles/Vol] 138 mmol/L 136 - 144 mmol/L [facility] Urea nitrogen [Mass/Vol] 12 mg/dL 9 - 24 mg/dL [facility] Comprehensive metabolic 2000 panelon 10-27-2023 Albumin [Mass/Vol] 4.4 g/dL 3.9 - 4.9 g/dL [facility] ALP [Catalytic activity/Vol] 60 U/L 38 - 113 U/L [facility] ALT [Catalytic activity/Vol] 8 U/L Low 10 - 54 U/L [facility] Anion gap [Moles/Vol] 9 mmol/L 9 - 18 mmol/L [facility] AST [Catalytic activity/Vol] 14 U/L 14 - 40 U/L [facility] Bilirubin [Mass/Vol] 0.5 mg/dL 0.2 - 1.3 mg/dL [facility] Calcium [Mass/Vol] 9.9 mg/dL 8.5 - 10. 2 mg/dL [facility] Chloride [Moles/Vol] 104 mmol/L 97 - 105 mmol/L [facility] CO2 [Moles/Vol] 26 mmol/L 22 - 30 mmol/L [facility] Creatinine [Mass/Vol] 0.84 mg/dL 0.73 - 1.22 mg/dL [facility] Estimated Glomerular Filtration Rate 94 mL/min/1.73m >=60 mL/min/1.[address] [facility] Glucose [Mass/Vol] 126 mg/dL High 74 - 99 mg/dL [facility] Potassium [Moles/Vol] 3.9 mmol/L 3.7 - 5.1 mmol/L [facility] Protein [Mass/Vol] 6.8 g/dL 6.3 - 8.0 g/dL [facility] Sodium [Moles/Vol] 139 mmol/L 136 - 144 mmol/L [facility] Urea nitrogen [Mass/Vol] 9 mg/dL 9 - 24 mg/dL [facility] PSA/PROSTSPECAG DIAGon 10-27 Prostate specific Ag [Mass/Vol] 0.49 ng/mL <2.60 ng/mL [facility] Basic metabolic 2000 panelon 08-02-2023 Anion gap [Moles/Vol] 8 mmol/L Low 9 - 18 mmol/L [facility] Calcium [Mass/Vol] 9.4 mg/dL 8.5 - 10. 2 mg/dL [facility] Chloride [Moles/Vol] 103 mmol/L 97 - 105 mmol/L [facility] CO2 [Moles/Vol] 26 mmol/L 22 - 30 mmol/L [facility] Creatinine [Mass/Vol] 0.72 mg/dL Low 0.73 - 1.22 mg/dL [facility] Estimated Glomerular Filtration Rate 99 mL/min/1.73m >=60 mL/min/1.[address] [facility] Glucose [Mass/Vol] 111 mg/dL High 74 - 99 mg/dL [facility] Potassium [Moles/Vol] 4.1 mmol/L 3.7 - 5.1 mmol/L [facility] Sodium [Moles/Vol] 137 mmol/L 136 - 144 mmol/L [facility] Urea nitrogen [Mass/Vol] 9 mg/dL 9 - 24 mg/dL [facility] CBC W Auto Differential pane l (Bld)on 07-21-2023 Basophils (Bld) [#/Vol] 0.06 10*3/uL <0.11 k/uL [facility] Basophils/100 WBC (Bld) 0.8 % [facility] Differential cell count method Nom (Bld) Auto [facility] Eosinophils (Bld) [#/Vol] 0.51 10*3/uL High <0.46 k/uL [facility] Eosinophils/100 WBC (Bld) 7.2 % [facility] Erythrocyte distribution width (RBC) [Ratio] 13.5 % 11.5 - 15.0 % [facility] Hematocrit (Bld) [Volume fraction] 40.6 % 39.0 - 51.0 % [facility] Hemoglobin (Bld) [Mass/Vol] 13.7 g/dL 13.0 - 17.0 g/dL [facility] Immature granulocytes (Bld) [#/Vol] 0.03 10*3/uL <0.10 k/uL [facility] Immature granulocytes/100 WBC (Bld) 0.4 % [facility] Lymphocytes (Bld) [#/Vol] 1.84 10*3/uL 1.00 - 4.00 k/uL [facility] Lymphocytes/100 WBC (Bld) 25.8 % [facility] MCH (RBC) [Entitic mass] 31.4 pg 26.0 - 34.[address] [facility] MCHC (RBC) [Mass/Vol] 33.7 g/dL 30.5 - 36.0 g/dL [facility] MCV (RBC) [Entitic vol] 93.1 fL 80.0 - 100.[address] [facility] Monocytes (Bld) [#/Vol] 0.58 10*3/uL <0.87 k/uL [facility] Monocytes/100 WBC (Bld) 8.1 % [facility] Neutrophils (Bld) [#/Vol] 4.11 10*3/uL 1.45 - 7.50 k/uL [facility] Neutrophils/100 WBC (Bld) 57.7 % [facility] Nucleated RBC (Bld) [#/Vol] <0.01 k/uL [facility] Nucleated RBC/100 WBC (Bld) [Ratio] 0.0 /[address] [facility] Platelet mean volume (Bld) [Entitic vol] 9.9 fL 9.0 - 12.[address] [facility] Platelets (Bld) [#/Vol] 218 10*3/uL 150 - 400 k/uL [facility] RBC (Bld) [#/Vol] 4.36 10*6/uL 4.20 - 6.0 0 m/uL [facility] WBC (Bld) [#/Vol] 7.13 10*3/uL 3.70 - 11.00 k/uL [facility] Comprehensive metabolic 2000 panelon 07-21-2023 Albumin [Mass/Vol] 4.2 g/dL 3.9 - 4.9 g/dL [facility] ALP [Catalytic activity/Vol] 66 U/L 38 - 113 U/L [facility] ALT [Catalytic activity/Vol] 13 U/L 10 - 54 U/L [facility] Anion gap [Moles/Vol] 9 mmol/L 9 - 18 mmol/L [facility] AST [Catalytic activity/Vol] 19 U/L 14 - 40 U/L [facility] Bilirubin [Mass/Vol] 0.2 mg/dL 0.2 - 1.3 mg/dL [facility] Calcium [Mass/Vol] 9.3 mg/dL 8.5 - 10. 2 mg/dL [facility] Chloride [Moles/Vol] 104 mmol/L 97 - 105 mmol/L [facility] CO2 [Moles/Vol] 26 mmol/L 22 - 30 mmol/L [facility] Creatinine [Mass/Vol] 0.71 mg/dL Low 0.73 - 1.22 mg/dL [facility] Estimated Glomerular Filtration Rate 99 mL/min/1.73m >=60 mL/min/1.[address] [facility] Glucose [Mass/Vol] 81 mg/dL 74 - 99 mg/dL [facility] Potassium [Moles/Vol] 4.0 mmol/L 3.7 - 5.1 mmol/L [facility] Protein [Mass/Vol] 6.6 g/dL 6.3 - 8.0 g/dL [facility] Sodium [Moles/Vol] 139 mmol/L 136 - 144 mmol/L [facility] Urea nitrogen [Mass/Vol] 10 mg/dL 9 - 24 mg/dL [facility] No Panel Informationon 05-16 [facility] US DVT LOWER RTon 05-16-2023 US DVT LOWER RT * * *Final Report* * * DATE OF EXAM: May 16 2023 10:24AM LDU 1007 - US DVT LOWER RT / PROCEDURE REASON: Pain of right thigh * * * * Physician Interpretation * * * * EXAMINATION: RIGHT LOWER EXTREMITY DEEP VENOUS ULTRASOUND WITH DOPPLER IMAGING CLINICAL HISTORY: Right thigh pain. TECHNIQUE: Grayscale with compression maneuvers, color Doppler and spectral Doppler imaging of the right proximal deep veins was performed. Grayscale with compression maneuvers of the peroneal and posterior tibial veins was performed. The right great and small saphenous veins were evaluated at their insertion to the deep system. The contralateral common femoral vein was imaged for comparison. Images were obtained and stored in a permanent archive. MQ: [id number] COMPARISON: None RESULT: RIGHT LOWER EXTREMITY PROXIMAL DEEP VEINS Distal External Iliac, Common Femoral and proximal Profunda Veins: Compression: Normal Doppler: Normal, spontaneous respirophasic flow. Normal response to augmentation. Femoral vein: Compression: Normal Doppler: Normal, spontaneous flow. Normal response to augmentation. Popliteal vein: Compression: Normal Doppler: Normal, spontaneous flow. Normal response to augmentation. CALF DEEP VEINS Peroneal veins: Normal compression. Posterior tibial veins: Normal compression. Gastrocnemius and Soleal veins: Not imaged. SUPERFICIAL VEINS Great saphenous: Patent and compressible at insertion into common femoral vein; not otherwise assessed. Small Saphenous: Not visualized. LEFT LOWER EXTREMITY (FOR COMPARISON) Common Femoral Vein: Compression: Normal Doppler: Normal, spontaneous respirophasic flow. Normal response to augmentation. IMPRESSION: Negative study for proximal DVT in the right lower extremity. Negative study for calf DVT in the right lower extremity. Negative study for superficial thrombophlebitis in the imaged segments of the right lower extremity. Mascara Molder: [facility] Transcribe Date/Time: May 16 2023 10:37A Dictated by : NICHO RAJAN MD This examination was interpreted and the report reviewed and electronically signed by: NICHO RAJAN MD on May 16 2023 10:38AM EST [id number] Normal [facility] XR FEMUR GENERAL 2V AP/LAT R [facility] 05-16-2023 [facility] XR Femur - right AP and Late ralon 05-16-2023 IMPRESSION: 1. No radiographic evidence of acute osseous injury. 2. Few scattered sclerotic foci compatible with known osseous metastatic disease Mascara Molder: [facility] Transcribe Date/Time: May 16 2023 8:20A Dictated by : JEN RONDON MD This examination was interpreted and the report reviewed and electronically signed by: JEN RONDON MD on May 16 2023 8:25AM EST DIVISION OF RADIOLOGY * * *Final Report* * * DATE OF EXAM: May 16 2023 8:13AM WOX [id number] - XR FEMUR 2V AP/LAT RT / PROCEDURE REASON: Pain of right thigh * * * * Physician Interpretation * * * * TITLE: XR FEMUR 2V AP/LAT RT CLINICAL INDICATION: Thigh pain TECHNIQUE: Frontal and lateral radiographs of the right femur COMPARISON: None FINDINGS: No acute fracture or dislocation identified. Scattered sclerotic foci within the visualized pelvic bones and distal right femur compatible with known osseous metastatic disease. Atherosclerotic calcification of the vasculature. Surgical clips in the right pelvis. DIVISION OF RADIOLOGY Provider, Collin Calderón - 05/16/2023 * * *Final Report* * * DATE OF EXAM: May 16 2023 8:13AM WOX [id number] - XR FEMUR 2V AP/LAT RT / PROCEDURE REASON: Pain of right thigh * * * * Physician Interpretation * * * * TITLE: XR FEMUR 2V AP/LAT RT CLINICAL INDICATION: Thigh pain TECHNIQUE: Frontal and lateral radiographs of the right femur COMPARISON: None FINDINGS: No acute fracture or dislocation identified. Scattered sclerotic foci within the visualized pelvic bones and distal right femur compatible with known osseous metastatic disease. Atherosclerotic calcification of the vasculature. Surgical clips in the right pelvis. IMPRESSION IMPRESSION: 1. No radiographic evidence of acute osseous injury. 2. Few scattered sclerotic foci compatible with known osseous metastatic disease Mascara Molder: [facility] Transcribe Date/Time: May 16 2023 8:20A Dictated by : JEN RONDON MD This examination was interpreted and the report reviewed and electronically signed by: JEN RONDON MD on May 16 2023 8:25AM EST [facility] Radiology Study observation (narrative) [facility] XR Femur - right AP and Late ralOrdered By: Ccf Provider on 05-16-2023 [facility] Basic metabolic 2000 panelon 05-11-2023 Anion gap [Moles/Vol] 9 mmol/L 9 - 18 mmol/L [facility] Calcium [Mass/Vol] 9.5 mg/dL 8.5 - 10. 2 mg/dL [facility] Chloride [Moles/Vol] 104 mmol/L 97 - 105 mmol/L [facility] CO2 [Moles/Vol] 24 mmol/L 22 - 30 mmol/L [facility] Creatinine [Mass/Vol] 0.70 mg/dL Low 0.73 - 1.22 mg/dL [facility] Estimated Glomerular Filtration Rate 100 mL/min/1.73m >=60 mL/min/1.[address] [facility] Glucose [Mass/Vol] 125 mg/dL High 74 - 99 mg/dL [facility] Potassium [Moles/Vol] 3.7 mmol/L 3.7 - 5.1 mmol/L [facility] Sodium [Moles/Vol] 137 mmol/L 136 - 144 mmol/L [facility] Urea nitrogen [Mass/Vol] 6 mg/dL Low 9 - 24 mg/dL [facility] CBC W Auto Differential pane l (Bld)on 04-28-2023 Basophils (Bld) [#/Vol] 0.09 10*3/uL <0.11 k/uL [facility] Basophils/100 WBC (Bld) 1.0 % [facility] Differential cell count method Nom (Bld) Auto [facility] Eosinophils (Bld) [#/Vol] 0.46 10*3/uL High <0.46 k/uL [facility] Eosinophils/100 WBC (Bld) 5.3 % [facility] Erythrocyte distribution width (RBC) [Ratio] 13.3 % 11.5 - 15.0 % [facility] Hematocrit (Bld) [Volume fraction] 40.1 % 39.0 - 51.0 % [facility] Hemoglobin (Bld) [Mass/Vol] 13.8 g/dL 13.0 - 17.0 g/dL [facility] Immature granulocytes (Bld) [#/Vol] <0.10 k/uL [facility] Immature granulocytes/100 WBC (Bld) 0.2 % [facility] Lymphocytes (Bld) [#/Vol] 2.06 10*3/uL 1.00 - 4.00 k/uL [facility] Lymphocytes/100 WBC (Bld) 23.6 % [facility] MCH (RBC) [Entitic mass] 31.8 pg 26.0 - 34.[address] [facility] MCHC (RBC) [Mass/Vol] 34.4 g/dL 30.5 - 36.0 g/dL [facility] MCV (RBC) [Entitic vol] 92.4 fL 80.0 - 100.[address] [facility] Monocytes (Bld) [#/Vol] 0.58 10*3/uL <0.87 k/uL [facility] Monocytes/100 WBC (Bld) 6.6 % [facility] Neutrophils (Bld) [#/Vol] 5.52 10*3/uL 1.45 - 7.50 k/uL [facility] Neutrophils/100 WBC (Bld) 63.3 % [facility] Nucleated RBC (Bld) [#/Vol] <0.01 k/uL [facility] Nucleated RBC/100 WBC (Bld) [Ratio] 0.0 /[address] [facility] Platelet mean volume (Bld) [Entitic vol] 9.6 fL 9.0 - 12.[address] [facility] Platelets (Bld) [#/Vol] 268 10*3/uL 150 - 400 k/uL [facility] RBC (Bld) [#/Vol] 4.34 10*6/uL 4.20 - 6.0 0 m/uL [facility] WBC (Bld) [#/Vol] 8.73 10*3/uL 3.70 - 11.00 k/uL [facility] Comprehensive metabolic 2000 panelon 04-28-2023 Albumin [Mass/Vol] 4.4 g/dL 3.9 - 4.9 g/dL [facility] ALP [Catalytic activity/Vol] 64 U/L 38 - 113 U/L [facility] ALT [Catalytic activity/Vol] 8 U/L Low 10 - 54 U/L [facility] Anion gap [Moles/Vol] 10 mmol/L 9 - 18 mmol/L [facility] AST [Catalytic activity/Vol] 13 U/L Low 14 - 40 U/L [facility] Bilirubin [Mass/Vol] 0.4 mg/dL 0.2 - 1.3 mg/dL [facility] Calcium [Mass/Vol] 9.7 mg/dL 8.5 - 10. 2 mg/dL [facility] Chloride [Moles/Vol] 104 mmol/L 97 - 105 mmol/L [facility] CO2 [Moles/Vol] 23 mmol/L 22 - 30 mmol/L [facility] Creatinine [Mass/Vol] 0.71 mg/dL Low 0.73 - 1.22 mg/dL [facility] Estimated Glomerular Filtration Rate 99 mL/min/1.73m >=60 mL/min/1.[address] [facility] Glucose [Mass/Vol] 95 mg/dL 74 - 99 mg/dL [facility] Potassium [Moles/Vol] 3.9 mmol/L 3.7 - 5.1 mmol/L [facility] Protein [Mass/Vol] 6.7 g/dL 6.3 - 8.0 g/dL [facility] Sodium [Moles/Vol] 137 mmol/L 136 - 144 mmol/L [facility] Urea nitrogen [Mass/Vol] 7 mg/dL Low 9 - 24 mg/dL [facility] CBC W Auto Differential pane l (Bld)on 03-02-2023 Basophils (Bld) [#/Vol] 0.08 10*3/uL <0.11 k/uL [facility] Basophils/100 WBC (Bld) 0.9 % [facility] Differential cell count method Nom (Bld) Auto [facility] Eosinophils (Bld) [#/Vol] 0.45 10*3/uL <0.46 k/uL [facility] Eosinophils/100 WBC (Bld) 5.1 % [facility] Erythrocyte distribution width (RBC) [Ratio] 13.3 % 11.5 - 15.0 % [facility] Hematocrit (Bld) [Volume fraction] 39.5 % 39.0 - 51.0 % [facility] Hemoglobin (Bld) [Mass/Vol] 13.7 g/dL 13.0 - 17.0 g/dL [facility] Immature granulocytes (Bld) [#/Vol] <0.10 k/uL [facility] Immature granulocytes/100 WBC (Bld) 0.2 % [facility] Lymphocytes (Bld) [#/Vol] 1.89 10*3/uL 1.00 - 4.00 k/uL [facility] Lymphocytes/100 WBC (Bld) 21.6 % [facility] MCH (RBC) [Entitic mass] 31.7 pg 26.0 - 34.[address] [facility] MCHC (RBC) [Mass/Vol] 34.7 g/dL 30.5 - 36.0 g/dL [facility] MCV (RBC) [Entitic vol] 91.4 fL 80.0 - 100.[address] [facility] Monocytes (Bld) [#/Vol] 0.60 10*3/uL <0.87 k/uL [facility] Monocytes/100 WBC (Bld) 6.9 % [facility] Neutrophils (Bld) [#/Vol] 5.71 10*3/uL 1.45 - 7.50 k/uL [facility] Neutrophils/100 WBC (Bld) 65.3 % [facility] Nucleated RBC (Bld) [#/Vol] <0.01 k/uL [facility] Nucleated RBC/100 WBC (Bld) [Ratio] 0.0 /[address] [facility] Platelet mean volume (Bld) [Entitic vol] 10.1 fL 9.0 - 12.[address] [facility] Platelets (Bld) [#/Vol] 242 10*3/uL 150 - 400 k/uL [facility] RBC (Bld) [#/Vol] 4.32 10*6/uL 4.20 - 6.0 0 m/uL [facility] WBC (Bld) [#/Vol] 8.75 10*3/uL 3.70 - 11.00 k/uL [facility] CT ABD/PEL W IVCONon 023 [facility] Comprehensive metabolic 2000 panelon 03-02-2023 Albumin [Mass/Vol] 4.3 g/dL 3.9 - 4.9 g/dL [facility] ALP [Catalytic activity/Vol] 66 U/L 38 - 113 U/L [facility] ALT [Catalytic activity/Vol] 8 U/L Low 10 - 54 U/L [facility] Anion gap [Moles/Vol] 8 mmol/L Low 9 - 18 mmol/L [facility] AST [Catalytic activity/Vol] 13 U/L Low 14 - 40 U/L [facility] Bilirubin [Mass/Vol] 0.5 mg/dL 0.2 - 1.3 mg/dL [facility] Calcium [Mass/Vol] 9.2 mg/dL 8.5 - 10. 2 mg/dL [facility] Chloride [Moles/Vol] 105 mmol/L 97 - 105 mmol/L [facility] CO2 [Moles/Vol] 27 mmol/L 22 - 30 mmol/L [facility] Creatinine [Mass/Vol] 0.82 mg/dL 0.73 - 1.22 mg/dL [facility] Estimated Glomerular Filtration Rate 96 mL/min/1.73m >=60 mL/min/1.[address] [facility] Glucose [Mass/Vol] 106 mg/dL High 74 - 99 mg/dL [facility] Potassium [Moles/Vol] 4.1 mmol/L 3.7 - 5.1 mmol/L [facility] Protein [Mass/Vol] 6.5 g/dL 6.3 - 8.0 g/dL [facility] Sodium [Moles/Vol] 140 mmol/L 136 - 144 mmol/L [facility] Urea nitrogen [Mass/Vol] 10 mg/dL 9 - 24 mg/dL [facility] NM BONE WHOLE BODYon 023 [facility] Basic metabolic 2000 panelon 02-16-2023 Anion gap [Moles/Vol] 11 mmol/L 9 - 18 mmol/L [facility] Calcium [Mass/Vol] 9.6 mg/dL 8.5 - 10. 2 mg/dL [facility] Chloride [Moles/Vol] 101 mmol/L 97 - 105 mmol/L [facility] CO2 [Moles/Vol] 25 mmol/L 22 - 30 mmol/L [facility] Creatinine [Mass/Vol] 0.80 mg/dL 0.73 - 1.22 mg/dL [facility] Estimated Glomerular Filtration Rate 96 mL/min/1.73m >=60 mL/min/1.[address] [facility] Glucose [Mass/Vol] 110 mg/dL High 74 - 99 mg/dL [facility] Potassium [Moles/Vol] 3.7 mmol/L 3.7 - 5.1 mmol/L [facility] Sodium [Moles/Vol] 137 mmol/L 136 - 144 mmol/L [facility] [facility] Urea nitrogen [Mass/Vol] 10 mg/dL 9 - 24 mg/dL [facility] Basic metabolic 2000 panelon 09-01-2022 Anion gap [Moles/Vol] 10 mmol/L 9 - 18 mmol/L [facility] Calcium [Mass/Vol] 9.6 mg/dL 8.5 - 10. 2 mg/dL [facility] Chloride [Moles/Vol] 103 mmol/L 97 - 105 mmol/L [facility] CO2 [Moles/Vol] 28 mmol/L 22 - 30 mmol/L [facility] Creatinine [Mass/Vol] 0.80 mg/dL 0.73 - 1.22 mg/dL [facility] Estimated Glomerular Filtration Rate 96 mL/min/1.73m >=60 mL/min/1.[address] [facility] Glucose [Mass/Vol] 98 mg/dL 74 - 99 mg/dL [facility] Potassium [Moles/Vol] 3.6 mmol/L Low 3.7 - 5.1 mmol/L [facility] Sodium [Moles/Vol] 141 mmol/L 136 - 144 mmol/L [facility] Urea nitrogen [Mass/Vol] 10 mg/dL 9 - 24 mg/dL [facility] CT ABD/PEL W IVCONon 022 [facility] CBC W Auto Differential pane l (Bld)on 08-12-2022 Basophils (Bld) [#/Vol] 0.11 10*3/uL High <0.11 k/uL [facility] Basophils/100 WBC (Bld) 1.1 % [facility] Differential cell count method Nom (Bld) Auto [facility] Eosinophils (Bld) [#/Vol] 0.49 10*3/uL High <0.46 k/uL [facility] Eosinophils/100 WBC (Bld) 5.0 % [facility] Erythrocyte distribution width (RBC) [Ratio] 12.7 % 11.5 - 15.0 % [facility] Hematocrit (Bld) [Volume fraction] 39.7 % 39.0 - 51.0 % [facility] Hemoglobin (Bld) [Mass/Vol] 14.0 g/dL 13.0 - 17.0 g/dL [facility] Immature granulocytes (Bld) [#/Vol] <0.10 k/uL [facility] Immature granulocytes/100 WBC (Bld) 0.2 % [facility] Lymphocytes (Bld) [#/Vol] 2.40 10*3/uL 1.00 - 4.00 k/uL [facility] Lymphocytes/100 WBC (Bld) 24.4 % [facility] MCH (RBC) [Entitic mass] 32.6 pg 26.0 - 34.[address] [facility] MCHC (RBC) [Mass/Vol] 35.3 g/dL 30.5 - 36.0 g/dL [facility] MCV (RBC) [Entitic vol] 92.3 fL 80.0 - 100.[address] [facility] Monocytes (Bld) [#/Vol] 0.71 10*3/uL <0.87 k/uL [facility] Monocytes/100 WBC (Bld) 7.2 % [facility] Neutrophils (Bld) [#/Vol] 6.10 10*3/uL 1.45 - 7.50 k/uL [facility] Neutrophils/100 WBC (Bld) 62.1 % [facility] Nucleated RBC (Bld) [#/Vol] <0.01 k/uL [facility] Nucleated RBC/100 WBC (Bld) [Ratio] 0.0 /[address] [facility] Platelet mean volume (Bld) [Entitic vol] 9.8 fL 9.0 - 12.[address] [facility] Platelets (Bld) [#/Vol] 246 10*3/uL 150 - 400 k/uL [facility] RBC (Bld) [#/Vol] 4.30 10*6/uL 4.20 - 6.0 0 m/uL [facility] WBC (Bld) [#/Vol] 9.83 10*3/uL 3.70 - 11.00 k/uL [facility] CBC W Auto Differential pane l (Bld)on 06-28-2022 Basophils (Bld) [#/Vol] 0.08 10*3/uL <0.11 k/uL [facility] Basophils/100 WBC (Bld) 0.7 % [facility] Differential cell count method Nom (Bld) Auto [facility] Eosinophils (Bld) [#/Vol] 0.36 10*3/uL <0.46 k/uL [facility] Eosinophils/100 WBC (Bld) 3.1 % [facility] Erythrocyte distribution width (RBC) [Ratio] 13.3 % 11.5 - 15.0 % [facility] Hematocrit (Bld) [Volume fraction] 41.0 % 39.0 - 51.0 % [facility] Hemoglobin (Bld) [Mass/Vol] 14.4 g/dL 13.0 - 17.0 g/dL [facility] Immature granulocytes (Bld) [#/Vol] 0.04 10*3/uL <0.10 k/uL [facility] Immature granulocytes/100 WBC (Bld) 0.3 % [facility] Lymphocytes (Bld) [#/Vol] 2.18 10*3/uL 1.00 - 4.00 k/uL [facility] Lymphocytes/100 WBC (Bld) 19.0 % [facility] MCH (RBC) [Entitic mass] 32.6 pg 26.0 - 34.[address] [facility] MCHC (RBC) [Mass/Vol] 35.1 g/dL 30.5 - 36.0 g/dL [facility] MCV (RBC) [Entitic vol] 92.8 fL 80.0 - 100.[address] [facility] Monocytes (Bld) [#/Vol] 0.73 10*3/uL <0.87 k/uL [facility] Monocytes/100 WBC (Bld) 6.4 % [facility] Neutrophils (Bld) [#/Vol] 8.07 10*3/uL High 1.45 - 7.50 k/uL [facility] Neutrophils/100 WBC (Bld) 70.5 % [facility] Nucleated RBC (Bld) [#/Vol] <0.01 k/uL [facility] Nucleated RBC/100 WBC (Bld) [Ratio] 0.0 /[address] [facility] Platelet mean volume (Bld) [Entitic vol] 10.4 fL 9.0 - 12.[address] [facility] Platelets (Bld) [#/Vol] 241 10*3/uL 150 - 400 k/uL [facility] RBC (Bld) [#/Vol] 4.42 10*6/uL 4.20 - 6.0 0 m/uL [facility] WBC (Bld) [#/Vol] 11.46 10*3/uL High 3.70 - 11.00 k/uL [facility] Comprehensive metabolic 2000 panelon 06-28-2022 Albumin [Mass/Vol] 4.7 g/dL 3.9 - 4.9 g/dL [facility] ALP [Catalytic activity/Vol] 86 U/L 38 - 113 U/L [facility] ALT [Catalytic activity/Vol] 8 U/L Low 10 - 54 U/L [facility] Anion gap [Moles/Vol] 11 mmol/L 9 - 18 mmol/L [facility] AST [Catalytic activity/Vol] 12 U/L Low 14 - 40 U/L [facility] Bilirubin [Mass/Vol] 0.4 mg/dL 0.2 - 1.3 mg/dL [facility] Calcium [Mass/Vol] 9.8 mg/dL 8.5 - 10. 2 mg/dL [facility] Chloride [Moles/Vol] 102 mmol/L 97 - 105 mmol/L [facility] CO2 [Moles/Vol] 26 mmol/L 22 - 30 mmol/L [facility] Creatinine [Mass/Vol] 0.81 mg/dL 0.73 - 1.22 mg/dL [facility] Estimated Glomerular Filtration Rate 96 mL/min/1.73m >=60 mL/min/1.[address] [facility] Glucose [Mass/Vol] 98 mg/dL 74 - 99 mg/dL [facility] Potassium [Moles/Vol] 3.6 mmol/L Low 3.7 - 5.1 mmol/L [facility] Protein [Mass/Vol] 6.8 g/dL 6.3 - 8.0 g/dL [facility] Sodium [Moles/Vol] 139 mmol/L 136 - 144 mmol/L [facility] Urea nitrogen [Mass/Vol] 9 mg/dL 9 - 24 mg/dL [facility] LD LACTATE DEHYDROon 06-28- LDH [Catalytic activity/Vol] 213 U/L 135 - 225 U/L [facility] Basic metabolic 2000 panelon 06-10-2022 Anion gap [Moles/Vol] 9 mmol/L 9 - 18 mmol/L [facility] Calcium [Mass/Vol] 8.5 mg/dL 8.5 - 10. 2 mg/dL [facility] Chloride [Moles/Vol] 108 mmol/L High 97 - 105 mmol/L [facility] CO2 [Moles/Vol] 24 mmol/L 22 - 30 mmol/L [facility] Creatinine [Mass/Vol] 0.74 mg/dL 0.73 - 1.22 mg/dL [facility] Estimated Glomerular Filtration Rate 99 mL/min/1.73m >=60 mL/min/1.[address] [facility] Glucose [Mass/Vol] 85 mg/dL 74 - 99 mg/dL [facility] Potassium [Moles/Vol] 3.7 mmol/L 3.7 - 5.1 mmol/L [facility] Sodium [Moles/Vol] 141 mmol/L 136 - 144 mmol/L [facility] Urea nitrogen [Mass/Vol] 11 mg/dL 9 - 24 mg/dL [facility] CBC W Auto Differential pane l (Bld)on 05-20-2022 Abs Immature Gran 0.05 k/uL <0.10 k/uL [facility] Basophils (Bld) [#/Vol] 0.09 10*3/uL <0.11 k/uL [facility] Basophils/100 WBC (Bld) 0.9 % [facility] Differential cell count method Nom (Bld) Auto [facility] Eosinophils (Bld) [#/Vol] 0.38 10*3/uL <0.46 k/uL [facility] Eosinophils/100 WBC (Bld) 3.6 % [facility] Erythrocyte distribution width (RBC) [Ratio] 13.5 % 11.5 - 15.0 % [facility] Hematocrit (Bld) [Volume fraction] 40.9 % 39.0 - 51.0 % [facility] Hemoglobin (Bld) [Mass/Vol] 14.2 g/dL 13.0 - 17.0 g/dL [facility] Immature Gran % 0.5 % [facility] Lymphocytes (Bld) [#/Vol] 1.69 10*3/uL 1.00 - 4.00 k/uL [facility] Lymphocytes/100 WBC (Bld) 16.2 % [facility] MCH (RBC) [Entitic mass] 32.2 pg 26.0 - 34.[address] [facility] MCHC (RBC) [Mass/Vol] 34.7 g/dL 30.5 - 36.0 g/dL [facility] MCV (RBC) [Entitic vol] 92.7 fL 80.0 - 100.[address] [facility] Monocytes (Bld) [#/Vol] 0.54 10*3/uL <0.87 k/uL [facility] Monocytes/100 WBC (Bld) 5.2 % [facility] Neutrophils (Bld) [#/Vol] 7.69 10*3/uL High 1.45 - 7.50 k/uL [facility] Neutrophils/100 WBC (Bld) 73.6 % [facility] Nucleated RBC (Bld) [#/Vol] <0.01 k/uL [facility] Nucleated RBC/100 WBC (Bld) [Ratio] 0.0 /[address] [facility] Platelet mean volume (Bld) [Entitic vol] 9.9 fL 9.0 - 12.[address] [facility] Platelets (Bld) [#/Vol] 228 10*3/uL 150 - 400 k/uL [facility] RBC (Bld) [#/Vol] 4.41 10*6/uL 4.20 - 6.0 0 m/uL [facility] WBC (Bld) [#/Vol] 10.44 10*3/uL 3.70 - 11.00 k/uL [facility] Comprehensive metabolic 2000 panelon 05-20-2022 Albumin [Mass/Vol] 4.4 g/dL 3.9 - 4.9 g/dL [facility] ALP [Catalytic activity/Vol] 81 U/L 38 - 113 U/L [facility] ALT [Catalytic activity/Vol] 11 U/L 10 - 54 U/L [facility] Anion gap [Moles/Vol] 10 mmol/L 9 - 18 mmol/L [facility] AST [Catalytic activity/Vol] 15 U/L 14 - 40 U/L [facility] Bilirubin [Mass/Vol] 0.4 mg/dL 0.2 - 1.3 mg/dL [facility] Calcium [Mass/Vol] 9.3 mg/dL 8.5 - 10. 2 mg/dL [facility] Chloride [Moles/Vol] 104 mmol/L 97 - 105 mmol/L [facility] CO2 [Moles/Vol] 26 mmol/L 22 - 30 mmol/L [facility] Creatinine [Mass/Vol] 0.89 mg/dL 0.73 - 1.22 mg/dL [facility] Estimated Glomerular Filtration Rate 93 mL/min/1.73m >=60 mL/min/1.[address] [facility] Glucose [Mass/Vol] 117 mg/dL High 74 - 99 mg/dL [facility] Potassium [Moles/Vol] 3.4 mmol/L Low 3.7 - 5.1 mmol/L [facility] Protein [Mass/Vol] 6.7 g/dL 6.3 - 8.0 g/dL [facility] Sodium [Moles/Vol] 140 mmol/L 136 - 144 mmol/L [facility] Urea nitrogen [Mass/Vol] 12 mg/dL 9 - 24 mg/dL [facility] LD LACTATE DEHYDROon 022 LDH [Catalytic activity/Vol] 208 U/L 135 - 225 U/L [facility] CBC W Auto Differential pane l (Bld)on 04-04-2022 Abs Immature Gran 0.04 k/uL <0.10 k/uL [facility] Basophils (Bld) [#/Vol] 0.08 10*3/uL <0.11 k/uL [facility] Basophils/100 WBC (Bld) 0.8 % [facility] Differential cell count method Nom (Bld) Auto [facility] Eosinophils (Bld) [#/Vol] 0.25 10*3/uL <0.46 k/uL [facility] Eosinophils/100 WBC (Bld) 2.6 % [facility] Erythrocyte distribution width (RBC) [Ratio] 13.2 % 11.5 - 15.0 % [facility] Hematocrit (Bld) [Volume fraction] 42.0 % 39.0 - 51.0 % [facility] Hemoglobin (Bld) [Mass/Vol] 14.6 g/dL 13.0 - 17.0 g/dL [facility] Immature Gran % 0.4 % [facility] Lymphocytes (Bld) [#/Vol] 1.82 10*3/uL 1.00 - 4.00 k/uL [facility] Lymphocytes/100 WBC (Bld) 19.0 % [facility] MCH (RBC) [Entitic mass] 32.1 pg 26.0 - 34.[address] [facility] MCHC (RBC) [Mass/Vol] 34.8 g/dL 30.5 - 36.0 g/dL [facility] MCV (RBC) [Entitic vol] 92.3 fL 80.0 - 100.[address] [facility] Monocytes (Bld) [#/Vol] 0.64 10*3/uL <0.87 k/uL [facility] Monocytes/100 WBC (Bld) 6.7 % [facility] Neutrophils (Bld) [#/Vol] 6.76 10*3/uL 1.45 - 7.50 k/uL [facility] Neutrophils/100 WBC (Bld) 70.5 % [facility] Nucleated RBC (Bld) [#/Vol] 10*3/uL <0.01 k/uL [facility] Nucleated RBC/100 WBC (Bld) [Ratio] 0.0 /[address] [facility] Platelet mean volume (Bld) [Entitic vol] 9.9 fL 9.0 - 12.[address] [facility] Platelets (Bld) [#/Vol] 235 10*3/uL 150 - 400 k/uL [facility] RBC (Bld) [#/Vol] 4.55 10*6/uL 4.20 - 6.0 0 m/uL [facility] WBC (Bld) [#/Vol] 9.59 10*3/uL 3.70 - 11.00 k/uL [facility] Comprehensive metabolic 2000 panelon 04-04-2022 Albumin [Mass/Vol] 4.7 g/dL 3.9 - 4.9 g/dL [facility] ALP [Catalytic activity/Vol] 91 U/L 38 - 113 U/L [facility] ALT [Catalytic activity/Vol] 9 U/L Low 10 - 54 U/L [facility] Anion gap [Moles/Vol] 11 mmol/L 9 - 18 mmol/L [facility] AST [Catalytic activity/Vol] 14 U/L 14 - 40 U/L [facility] Bilirubin [Mass/Vol] 0.6 mg/dL 0.2 - 1.3 mg/dL [facility] Calcium [Mass/Vol] 9.6 mg/dL 8.5 - 10. 2 mg/dL [facility] Chloride [Moles/Vol] 102 mmol/L 97 - 105 mmol/L [facility] CO2 [Moles/Vol] 24 mmol/L 22 - 30 mmol/L [facility] Creatinine [Mass/Vol] 0.88 mg/dL 0.73 - 1.22 mg/dL [facility] Estimated Glomerular Filtration Rate 94 mL/min/1.73m >=60 mL/min/1.[address] [facility] Glucose [Mass/Vol] 103 mg/dL High 74 - 99 mg/dL [facility] Potassium [Moles/Vol] 4.1 mmol/L 3.7 - 5.1 mmol/L [facility] Protein [Mass/Vol] 7.0 g/dL 6.3 - 8.0 g/dL [facility] Sodium [Moles/Vol] 137 mmol/L 136 - 144 mmol/L [facility] Urea nitrogen [Mass/Vol] 13 mg/dL 9 - 24 mg/dL [facility] CBC W Auto Differential pane l (Bld)on 03-18-2022 Abs Immature Gran <0.03 <0.10 k/uL [facility] Basophils (Bld) [#/Vol] 0.08 10*3/uL <0.11 k/uL [facility] Basophils/100 WBC (Bld) 1.0 % [facility] Differential cell count method Nom (Bld) Auto [facility] Eosinophils (Bld) [#/Vol] 0.32 10*3/uL <0.46 k/uL [facility] Eosinophils/100 WBC (Bld) 3.8 % [facility] Erythrocyte distribution width (RBC) [Ratio] 13.2 % 11.5 - 15.0 % [facility] Hematocrit (Bld) [Volume fraction] 40.5 % 39.0 - 51.0 % [facility] Hemoglobin (Bld) [Mass/Vol] 14.2 g/dL 13.0 - 17.0 g/dL [facility] Immature Gran % 0.2 % [facility] Lymphocytes (Bld) [#/Vol] 1.88 10*3/uL 1.00 - 4.00 k/uL [facility] Lymphocytes/100 WBC (Bld) 22.3 % [facility] MCH (RBC) [Entitic mass] 31.7 pg 26.0 - 34.[address] [facility] MCHC (RBC) [Mass/Vol] 35.1 g/dL 30.5 - 36.0 g/dL [facility] MCV (RBC) [Entitic vol] 90.4 fL 80.0 - 100.[address] [facility] Monocytes (Bld) [#/Vol] 0.52 10*3/uL <0.87 k/uL [facility] Monocytes/100 WBC (Bld) 6.2 % [facility] Neutrophils (Bld) [#/Vol] 5.60 10*3/uL 1.45 - 7.50 k/uL [facility] Neutrophils/100 WBC (Bld) 66.5 % [facility] Nucleated RBC (Bld) [#/Vol] 10*3/uL <0.01 k/uL [facility] Nucleated RBC/100 WBC (Bld) [Ratio] 0.0 /[address] [facility] Platelet mean volume (Bld) [Entitic vol] 9.7 fL 9.0 - 12.[address] [facility] Platelets (Bld) [#/Vol] 246 10*3/uL 150 - 400 k/uL [facility] RBC (Bld) [#/Vol] 4.48 10*6/uL 4.20 - 6.0 0 m/uL [facility] WBC (Bld) [#/Vol] 8.42 10*3/uL 3.70 - 11.00 k/uL [facility] Comprehensive metabolic 2000 panelon 03-18-2022 Albumin [Mass/Vol] 4.5 g/dL 3.9 - 4.9 g/dL [facility] ALP [Catalytic activity/Vol] 84 U/L 38 - 113 U/L [facility] ALT [Catalytic activity/Vol] 8 U/L Low 10 - 54 U/L [facility] Anion gap [Moles/Vol] 10 mmol/L 9 - 18 mmol/L [facility] AST [Catalytic activity/Vol] 16 U/L 14 - 40 U/L [facility] Bilirubin [Mass/Vol] 0.3 mg/dL 0.2 - 1.3 mg/dL [facility] Calcium [Mass/Vol] 9.2 mg/dL 8.5 - 10. 2 mg/dL [facility] Chloride [Moles/Vol] 102 mmol/L 97 - 105 mmol/L [facility] CO2 [Moles/Vol] 25 mmol/L 22 - 30 mmol/L [facility] Creatinine [Mass/Vol] 0.82 mg/dL 0.73 - 1.22 mg/dL [facility] Estimated Glomerular Filtration Rate 96 mL/min/1.73m >=60 mL/min/1.[address] [facility] Glucose [Mass/Vol] 90 mg/dL 74 - 99 mg/dL [facility] Potassium [Moles/Vol] 4.1 mmol/L 3.7 - 5.1 mmol/L [facility] Protein [Mass/Vol] 6.8 g/dL 6.3 - 8.0 g/dL [facility] Sodium [Moles/Vol] 137 mmol/L 136 - 144 mmol/L [facility] Urea nitrogen [Mass/Vol] 10 mg/dL 9 - 24 mg/dL [facility] LD LACTATE DEHYDROon 022 LDH [Catalytic activity/Vol] 172 U/L 135 - 225 U/L [facility] CBC W Auto Differential pane l (Bld)on 03-04-2022 Abs Immature Gran 0.03 k/uL <0.10 k/uL [facility] Basophils (Bld) [#/Vol] 0.09 10*3/uL <0.11 k/uL [facility] Basophils/100 WBC (Bld) 1.0 % [facility] Differential cell count method Nom (Bld) Auto [facility] Eosinophils (Bld) [#/Vol] 0.44 10*3/uL <0.46 k/uL [facility] Eosinophils/100 WBC (Bld) 5.1 % [facility] Erythrocyte distribution width (RBC) [Ratio] 12.9 % 11.5 - 15.0 % [facility] Hematocrit (Bld) [Volume fraction] 39.8 % 39.0 - 51.0 % [facility] Hemoglobin (Bld) [Mass/Vol] 13.9 g/dL 13.0 - 17.0 g/dL [facility] Immature Gran % 0.3 % [facility] Lymphocytes (Bld) [#/Vol] 1.84 10*3/uL 1.00 - 4.00 k/uL [facility] Lymphocytes/100 WBC (Bld) 21.2 % [facility] MCH (RBC) [Entitic mass] 32.4 pg 26.0 - 34.[address] [facility] MCHC (RBC) [Mass/Vol] 34.9 g/dL 30.5 - 36.0 g/dL [facility] MCV (RBC) [Entitic vol] 92.8 fL 80.0 - 100.[address] [facility] Monocytes (Bld) [#/Vol] 0.54 10*3/uL <0.87 k/uL [facility] Monocytes/100 WBC (Bld) 6.2 % [facility] Neutrophils (Bld) [#/Vol] 5.75 10*3/uL 1.45 - 7.50 k/uL [facility] Neutrophils/100 WBC (Bld) 66.2 % [facility] Nucleated RBC (Bld) [#/Vol] 10*3/uL <0.01 k/uL [facility] Nucleated RBC/100 WBC (Bld) [Ratio] 0.0 /[address] [facility] Platelet mean volume (Bld) [Entitic vol] 9.4 fL 9.0 - 12.[address] [facility] Platelets (Bld) [#/Vol] 228 10*3/uL 150 - 400 k/uL [facility] RBC (Bld) [#/Vol] 4.29 10*6/uL 4.20 - 6.0 0 m/uL [facility] WBC (Bld) [#/Vol] 8.69 10*3/uL 3.70 - 11.00 k/uL [facility] Comprehensive metabolic 2000 panelon 03-04-2022 Albumin [Mass/Vol] 4.2 g/dL 3.9 - 4.9 g/dL [facility] ALP [Catalytic activity/Vol] 80 U/L 38 - 113 U/L [facility] ALT [Catalytic activity/Vol] 8 U/L Low 10 - 54 U/L [facility] Anion gap [Moles/Vol] 9 mmol/L 9 - 18 mmol/L [facility] AST [Catalytic activity/Vol] 15 U/L 14 - 40 U/L [facility] Bilirubin [Mass/Vol] 0.3 mg/dL 0.2 - 1.3 mg/dL [facility] Calcium [Mass/Vol] 8.6 mg/dL 8.5 - 10. 2 mg/dL [facility] Chloride [Moles/Vol] 107 mmol/L High 97 - 105 mmol/L [facility] CO2 [Moles/Vol] 25 mmol/L 22 - 30 mmol/L [facility] Creatinine [Mass/Vol] 0.85 mg/dL 0.73 - 1.22 mg/dL [facility] Estimated Glomerular Filtration Rate 95 mL/min/1.73m >=60 mL/min/1.[address] [facility] Glucose [Mass/Vol] 98 mg/dL 74 - 99 mg/dL [facility] Potassium [Moles/Vol] 4.0 mmol/L 3.7 - 5.1 mmol/L [facility] Protein [Mass/Vol] 6.0 g/dL Low 6.3 - 8.0 g/dL [facility] Sodium [Moles/Vol] 141 mmol/L 136 - 144 mmol/L [facility] Urea nitrogen [Mass/Vol] 10 mg/dL 9 - 24 mg/dL [facility] LD LACTATE DEHYDROon 022 LDH [Catalytic activity/Vol] 176 U/L 135 - 225 U/L [facility] NM BONE WHOLE BODYon 022 [facility] COLONOSCOPY SCREENINGon 12-10 [facility] XR Chest PA and Lateralon IMPRESSION: No acute radiographic abnormality. Mascara Molder: MATHEUS Transcribe Date/Time: May 10 2021 8:12A Dictated by : MARYANN ROMERO MD This examination was interpreted and the report reviewed and electronically signed by: MARYANN ROMERO MD on May 10 2021 8:12AM [facility] DIVISION OF RADIOLOGY * * *Final Report* * * DATE OF EXAM: May 10 2021 8:11AM WOX 5291 - XR CHEST 2V FRONTAL/LAT / PROCEDURE REASON: Suspected COVID-19 virus infection * * * * Physician Interpretation * * * * EXAMINATION: CHEST RADIOGRAPH (2 VIEW FRONTAL & LATERAL) CLINICAL HISTORY: Suspected COVID-19 virus infection . Fatigue MQ: XC2_6 EXAM DATE/TIME: 05/10/2021 8:11 AM COMPARISON: 07/30/2020 RESULT: Lines, tubes, and devices: Right-sided Port-A-Cath, tip overlying the SVC. Lungs and pleura: No consolidation. No lung mass. No pleural effusion. No pneumothorax. Cardiomediastinal silhouette: Normal cardiomediastinal silhouette. Bones and soft tissues: Unremarkable. DIVISION OF RADIOLOGY Provider, Collin Tsang [facility] - 05/10/2021 * * *Final Report* * * DATE OF EXAM: May 10 2021 8:11AM WOX 5291 - XR CHEST 2V FRONTAL/LAT / PROCEDURE REASON: Suspected COVID-19 virus infection * * * * Physician Interpretation * * * * EXAMINATION: CHEST RADIOGRAPH (2 VIEW FRONTAL & LATERAL) CLINICAL HISTORY: Suspected COVID-19 virus infection . Fatigue MQ: XC2_6 EXAM DATE/TIME: 05/10/2021 8:11 AM COMPARISON: 07/30/2020 RESULT: Lines, tubes, and devices: Right-sided Port-A-Cath, tip overlying the SVC. Lungs and pleura: No consolidation. No lung mass. No pleural effusion. No pneumothorax. Cardiomediastinal silhouette: Normal cardiomediastinal silhouette. Bones and soft tissues: Unremarkable. IMPRESSION IMPRESSION: No acute radiographic abnormality. Mascara Molder: PSCB Transcribe Date/Time: May 10 2021 8:12A Dictated by : MARYANN ROMERO MD This examination was interpreted and the report reviewed and electronically signed by: MARYANN ROMERO MD on May 10 2021 8:12AM EST [facility] Radiology Study observation (narrative) [facility] XR Chest PA and LateralOrder ed By: [facility] Provider on 05-10-2021 [facility] XR CHEST 1V FRONTALon 2019 XR CHEST 1V FRONTAL Final Report DATE OF EXAM: Jul 30 2020 9:29AM LDX 5290 - XR CHEST 1V FRONTAL / PROCEDURE REASON: Evaluate tube, line or lead position Physician Interpretation EXAM TITLE: XR CHEST 1V FRONTAL DATE: 07/30/2020 2:41 PM INDICATION: Central line placement. History of lymphoma COMPARISON: None. FINDINGS: Right subclavian central venous catheter tip is in the superior vena cava. Left upper extremity approach PICC line tip is difficult to visualize because of obscuration from the other catheter but it appears to be within the superior vena cava as well. There is no visible pneumothorax. Lungs are otherwise clear. Heart is not enlarged. IMPRESSION: Support lines as discussed without apparent complications. Mascara Molder: PSCJuan Transcribe Date/Time: Jul 30 2020 2:41P Dictated by : JULISSA HURT MD This examination was interpreted and the report reviewed and electronically signed by: JULISSA HURT MD on Jul 30 2020 2:43PM EST [facility] CASE MANAGEMon 07-15-2020 CASE MANAGEM HNO ID: [id number] Author: Wilbert Brito) HÉCTOR Calderon Service: Case Management Author Type: Registered Nurse Type: Care Mgt Progress Note Filed: 07/15/2020 3:20 PM Note Text: CARE MANAGEMENT PROGRESS NOTE SERVICE DATE: 07/15/2020 SERVICE TIME: 3:17 PM LOS: 6 days Admission Date: 07/09/2020 DISCHARGE ARRANGEMENT (list agency and phone number) Discharge Arrangement: Home Care;Home Care pharmacy Home Care: Nursing TRANSPORTATION ARRANGEMENTS: Transportation Arrangements: Car ADDITIONAL CONTACT RESOURCES: See below Discharge Information Row Name Admission (Current) from 07/09/[address] Health Care Agency [facility] Home Care Start of Care 07/15/20 Durable Medical Equipment Agency [facility] Home Care Pharmacy Equipment Needed PICC line supples and flushes IMM Follow Up Copy Given: Yes Copy given to:: Patient Method: In Person [place] of Choice Given: Yes Level of Care Discussed: Home Care Financial Disclosure Provided: Yes Provider List: Home Care;Home Care Pharmacy Provider list within the patient's requested geographic area shared with the patient/family: Yes Quality and resource use metrics shared with the patient that are relevant to the patient's goals of care and treatment preferences:: Yes Patient to discharge today. Will go home with PICC for chemo till port placement. Patient aware and picked [facility] for picc care and supplies. SIGNATURE: WILBERT CALDERON RN PATIENT NAME: Alejandro Killian DATE: July 15, 2020 TIME: 3:17 PM PAGER/CONTACT #: [phone] Normal [facility] CBC and Differentialon 07-15 Abs Baso <0.03 Normal <0.11 [facility] Abs [place] 0.68 k/uL Normal <0.87 [facility] Abs Neut 9.49 k/uL High 1.45-7.50 [facility] Absolute nRBC <0.01 Normal <0.01 [facility] Basophils/100 WBC (Bld) 0.1 % Normal [facility] DTYPE Auto Diff Normal [facility] Eosinophils (Bld) [#/Vol] 10*3/uL Normal <0.46 [facility] Eosinophils/100 WBC (Bld) 0.1 % Normal [facility] Erythrocyte distribution width (RBC) [Ratio] 13.8 % Normal 11.5-15.0 [facility] Hematocrit (Bld) [Volume fraction] 34.1 % Low 39.0-51.0 [facility] Hemoglobin (Bld) [Mass/Vol] 11.3 g/dL Low 13.0-17.0 [facility] Lymphocytes (Bld) [#/Vol] 0.51 10*3/uL Low 1.00-4.00 [facility] Lymphocytes/100 WBC (Bld) 4.8 % Normal [facility] MCH (RBC) [Entitic mass] 31.7 pG Normal 26.0-34.0 [facility] MCHC (RBC) [Mass/Vol] 33.1 g/dL Normal 30.5-36.0 [facility] MCV (RBC) [Entitic vol] 95.5 fL Normal 80.0-100.0 [facility] Monocytes/100 WBC (Bld) 6.4 % Normal [facility] Neutrophils/100 WBC (Bld) 88.6 % Normal [facility] NRBCs 0.0 /100 WBC Normal 0 [facility] Platelet mean volume (Bld) [Entitic vol] 11.3 fL Normal 9.0-12.7 [facility] Platelets (Bld) [#/Vol] 228 10*3/uL Normal 150-400 [facility] RBC (Bld) [#/Vol] 3.57 10*6/uL Low 4.20-6.00 [facility] WBC (Bld) [#/Vol] 10.70 10*3/uL Normal 3.70-11.00 [facility] CNCOon 07-15-2020 CNCO Letter Text Normal [facility] CONSULT PROGon 07-15-2020 CONSULT PROG HNO ID: [id number] Author: Dory Argueta Service: Palliative Care Author Type: Nurse Practitioner Type: Consult Progress Note Filed: 07/15/2020 3:34 PM Note Text: PALLIATIVE MEDICINE CONSULT PROGRESS NOTE To contact the [place] palliative medicine service from 5p - 8a on weekdays and anytime during the weekend, please page [phone] SERVICE DATE: 07/15/2020 PATIENT NAME: Alejandro Killian Subjective Primary Site of Disease/Medical Illness: 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 He is being discharged today. Will follow up with oncology in [place]. REVIEW OF SYSTEMS Modified ESAS ([place] Symptom Assessment Scale): Information Provided By: Patient Pain: None Nausea: None Loss of Appetite: None Constipation: Mild Shortness of Breath: None Drowsiness: None Tiredness: Mild Depression: None Anxiety: None How you feel overall: Good Other problem: None Objective PHYSICAL EXAMINATION Vital Signs: BP 155/72 Pulse 76 Temp 36.9 ?C (98.4 ?F) (Oral) Resp 16 Ht 172.7 cm (5' 8) Wt 62.1 kg (136 lb 14.4 oz) SpO2 96% BMI 20.82 kg/m? General Appearance: No apparent distress Skin: Jaundice Resp: Unlabored respiratory effort CV: Regular rate and rhythm GI: Soft Psych: Oriented to: Time, Place, Person and Situation DATA Diagnostic tests and information reviewed for today's visit: Most recent labs and imaging results. Impression/Recommendations Alejandro Prasad is a 65 year old male admitted on 07/09/2020 for jaundice. Care complicated by obstructive jaundice due to new probable diagnosis of Non-Hodgkin's Lymphoma. Palliative Medicine on for pain management. -Highly suspected Non-Hodgkin's Lymphoma with intra-abdominal LNs -Abdominal Pain/Cancer Related Pain -Constipation -BPH -COPD -Jaundice Some elements copied from Pall Med note on 07/14/2020, the elements have been updated and all reflect current decision making from today, 07/15/2020. Recommendations: Abdominal Pain/Cancer related pain? -Intra-abdominal LNs -Pain radiates to bilateral flank -Continue fentanyl 25mcg/hr patch -Continue oxycodone IR PRN Constipation -Reports improvement in bowel movements -Continue senna 1 tab BID -Continue Miralax daily Care Planning -Palliative medicine to continue to follow -Patient to have local physician continue to provide pain medications -Patient to follow up in [place], [place] for oncology care. Advance Care Planning: Did not discuss Global Assessment: Improving Plan of Care discussed with: Patient and RN SIGNATURE: Dory Argueta APRN.CANDY SPREADER HELPER PAGER/CONTACT #: [phone] Normal [facility] Hepatic Functn Panelon 07-15 Albumin [Mass/Vol] 3.6 g/dL Low 3.9-4.9 [facility] ALP [Catalytic activity/Vol] 124 U/L High 38-113 [facility] ALT [Catalytic activity/Vol] 70 U/L High 10-54 [facility] AST [Catalytic activity/Vol] 28 U/L Normal 14-40 [facility] Bilirubin [Mass/Vol] 1.8 mg/dL High 0.2-1.3 [facility] Bilirubin,Conjugate d 1.1 mg/dL High <0.2 [facility] Protein [Mass/Vol] 5.6 g/dL Low 6.3-8.0 [facility] Albumin [Mass/Vol] 3.9 g/dL Normal 3.9-4.9 [facility] ALP [Catalytic activity/Vol] 130 U/L High 38-113 [facility] ALT [Catalytic activity/Vol] 80 U/L High 10-54 [facility] AST [Catalytic activity/Vol] 34 U/L Normal 14-40 [facility] Bilirubin [Mass/Vol] 1.9 mg/dL High 0.2-1.3 [facility] Bilirubin,Conjugate d 1.2 mg/dL High <0.2 [facility] Protein [Mass/Vol] 5.7 g/dL Low 6.3-8.0 [facility] LDon 07-15-2020 LD 365 U/L High 135-225 [facility] Comment on above: Performed By: #### L D6 ####[facility] [id number] [place], [place] [phone] LD 357 U/L High 135-225 [facility] Comment on above: Performed By: #### L D6 ####[facility] [id number] [place], [place] [phone] NURSING PROGon 07-15-2020 NURSING PROG HNO ID: [id number] Author: Vianey SorensonRn) HÉCTOR Salinas Service: ? Author Type: Registered Nurse Type: Nursing Progress Note Filed: 07/15/2020 4:34 PM Note Text: Nursing Progress Note Patient Name: Alejandro Killian [facility] Daily Note:patient left floor by wheelchair in stable condition accompanied by transport at 1632 today. This note was completed by: Vianey Salinas RN [facility] ID: [id number] Author: Vianey Brito) HÉCTOR Salinas Service: ? Author Type: Registered Nurse Type: Nursing Progress Note Filed: 07/15/2020 4:19 PM Note Text: Nursing Progress Note Patient Name: Alejandro Killian Patient Location: [facility]S08/VD-8PC-T85-1 Daily Note:discharge orders received. Patient is to receive HHC for his left arm PICC line care and flushing with NSS once daily. Patient given discharge instructions and he verbalized an understanding of these. New prescriptions ready to be picked up his home pharmacy. Transport called for the discharge wheelchair. This note was completed by: Vianey Salinas RN [facility] HNO ID: [id number] Author: Vianey Salinas RN Service: ? Author Type: Registered Nurse Type: Nursing Progress Note Filed: 07/15/2020 10:02 AM Note Text: Nursing Progress Note Patient Name: Alejandro Killian Patient Location: -3ST-S08/BY-5WI-Y48-1 Daily Note:patient currently denies any pain, discomfort, or SOB. Ambulating on his own in hallways without difficulty. Left arm single lumen PICC line remains patent with prescribed iv fluids infusing. Currently he is working on filling out the medical release of records paperwork that I have left at his bedside. Afterwards, I will fax this over to his Doctors office to get the pathology records sent over to Dr Atkins. Plan to draw labs at noon through PICC line. Will continue to monitor patient. This note was completed by: Vianey Salinas RN [facility] PROGRESSon 07-15-2020 PROGRESS HNO ID: [id number] Author: Claudia Arguelles Service: Hematology/Oncology Author Type: Physician Ruby Rails Developer Type: Progress Notes Filed: 07/15/2020 1:13 PM Note Text: Attestation signed by Ceferino Atkins at 07/17/2020 8:25 PM Attending Note: [place] findings confirmed. Patient examined. Discussed with the physician licensed loan officer assistant and the patient. Plan as outlined. Ceferino Atkins MD SERVICE DATE: 07/15/2020 SERVICE TIME: 1:10 PM HEMATOLOGY / ONCOLOGY After 3pm, please page the on-call [phone] Subjective INTERVAL HPI: Alejandro is doing well today. Overall tolerated chemo yesterday. He had some abdominal pain during initial Rituxan, received medications (pepcid, benadryl and steroid) and resolved. He was able to finish without any other problems. Denies nausea, vomiting or diarrhea. No constipation. REVIEW OF SYSTEMS: See HPI Objective Vitals: Temp (24hrs), Av.6 ?C (97.9 ?F), Min:36.2 ?C (97.1 ?F), Max:37.1 ?C (98.8 ?F) BP 152/70 Pulse (!) 58 Temp 36.3 ?C (97.3 ?F) (Oral) Resp 17 Ht 172.7 cm (5' 8) Wt 62.1 kg (136 lb 14.4 oz) SpO2 96% BMI 20.82 kg/m? Intake AND Output Intake/Output Summary (Last 24 hours) at 07/15/2020 0936 Last data filed at 07/15/2020 0900 Gross per 24 hour Intake 3694.95 ml Output 650 ml Net 3044.95 ml PHYSICAL EXAM GENERAL: No acute distress; alert and oriented x 3 HEENT: Sclera anicteric. No mucositis. No thrush LUNGS: Clear to auscultation; no wheezing, rhonchi or rales HEART: Regular rhythm; normal rate ABDOMEN: Bowel sounds present; soft, non-tender and not distended EXTREMITIES: No edema. Muscular strength equal in all extremities SKIN: No rash or ecchymosis VENOUS ACCESS: No concerns MEDICATIONS Current Facility-Administered Medications Medication Dose Route Frequency - ondansetron (PF) 8 mg injection (ZOFRAN) 8 mg INTRAVENOUS q 8 H PRN - prochlorperazine 10 mg injection (COMPAZINE) 10 mg INTRAVENOUS q 6 H PRN - NaCl 0.9% iv infusion 500-999 mL/hr INTRAVENOUS PRN - EPINEPHrine 1 mg/mL (1 mL) 0.3 mg injection 0.3 mg INTRAMUSCULAR PRN - pegfilgrastim 6 mg injection (NEULASTA) 6 mg SUBCUTANEOUS ONCE - predniSONE 100 mg tab(s) (DELTASONE) 100 mg ORAL DAILY - polyethylene glycol 3350 17 g packet (MIRALAX, GLYCOLAX) 17 g ORAL DAILY - nystatin 5 mL oral liquid (MYCOSTATIN) 5 mL ORAL BID - cloNIDine HCl 0.1 mg tab(s) (CATAPRES) 0.1 mg ORAL q 8 H - allopurinol 300 mg tab(s) (ZYLOPRIM) 300 mg ORAL DAILY - NaCl 0.9% iv infusion 100 mL/hr INTRAVENOUS CONTINUOUS - iv contrast (radiology procedure) INTRAVENOUS DIRECTED PRN - sodium chloride 0.9 % (flush) 10 mL (BD POSIFLUSH) 10 mL INTRAVENOUS q 12 H - sodium chloride 0.9 % (flush) 20 mL (BD POSIFLUSH) 20 mL INTRAVENOUS PRN - pantoprazole DR 20 mg tab(s) (PROTONIX) 20 mg ORAL DAILY (6 AM) - senna 8.6 mg tab(s) (SENOKOT) 8.6 mg ORAL BID - bisacodyl 10 mg suppository (DULCOLAX) 10 mg RECTAL DAILY PRN - magnesium hydroxide 400 mg/5 mL 30 mL (MOM) 30 mL ORAL DAILY PRN - sodium chloride 0.9 % (flush) 10 mL (BD POSIFLUSH) 10 mL INTRAVENOUS q 12 H - sodium chloride 0.9 % (flush) 20 mL (BD POSIFLUSH) 20 mL INTRAVENOUS PRN - docusate sodium 100 mg cap(s) (COLACE) 100 mg ORAL BID - oxyCODONE IR 5 mg tab(s) (ROXICODONE) 5 mg ORAL q 4 H PRN - fentaNYL 50 mcg/mL 25 mcg injection (SUBLIMAZE) 25 mcg INTRAVENOUS q 3 H PRN - nicotine 14 mg/24 hr 1 Patch (NICODERM) 1 Patch TRANSDERMAL DAILY And - nicotine -- REMOVE patch OTHER DAILY And - nicotine - verify patch OTHER q 8 H - atropine 0.5 mg injection 0.5 mg INTRAVENOUS PRN(NO DISPENSE) - amiodarone 150 mg in D5W 100 mL (NEXTERONE) 150 mg INTRAVENOUS PRN(NO DISPENSE) - fluticasone-vilanterol 100-25 mcg/dose 1 Inhalation (BREO ELLIPTA) 1 Inhalation INHALATION DAILY - fentaNYL 25 mcg/hr 1 Patch (DURAGESIC) 1 Patch TRANSDERMAL q 72 HR And - fentaNYL - REMOVE PATCH OTHER q 72 HR And - fentaNYL - VERIFY PATCH OTHER q 8 H LABORATORY DATA Recent Labs 07/15/20 0608 07/14/20 0647 07/13/20 0543 WBC 10.70 10.46 10.75 RBC 3.57* 3.85* 3.78* HB 11.3* 12.1* 11.9* HCT 34.1* 36.1* 35.6* PLT 228 240 240 MCV 95.5 93.8 94.2 MCH 31.7 31.4 31.5 MCHC 33.1 33.5 33.4 RDWCV 13.8 14.0 14.2 MPV 11.3 11.6 11.9 NEUTP 88.6 68.3 72.6 ABSNEUT 9.49* 7.15 7.81* LYMPHP 4.8 22.8 19.3 MONOP 6.4 7.3 7.0 EODINP 0.1 1.2 0.7 BASOP 0.1 0.4 0.4 ABSMONO 0.68 0.76 0.75 ABSEOSIN <0.03 0.13 0.07 ABSBASO <0.03 0.04 0.04 Recent Labs 07/15/20 0608 07/15/20 0023 07/14/20 1801 07/14/20 0648 07/14/20 0647 NA 138 140 141 -- 138 K 3.8 4.0 3.5* -- 3.2* CHLOR 104 104 105 -- 102 CO2 26 25 25 -- 28 CREAT 0.70* 0.80 0.72* -- 0.76 BUN 14 14 13 -- 14 GLUC 117* 123* 151* -- 90 P 3.2 3.1 3.3 -- -- TPROT 5.6* 5.7* -- 5.7* -- ALB 3.6* 3.6* 3.8* 3.9 3.8* 3.9 -- CA 8.8 8.8 8.7 -- 9.3 ALKPHOS 124* 130* -- 148* -- TBILI 1.8* 1.9* -- 2.1* -- AST 28 34 -- 30 -- ALT 70* 80* -- 86* -- URICACID -- 2.1* 2.2* -- 2.5* Lines, Drains, and Airways Line Central Line Single Lumen 07/10/20 1714 Peripherally Inserted (PICC) Left Arm 4.0 Citizen Of [place] 4 days DATA: Diagnostic tests reviewed for today's visit: Most recent labs and imaging Assessment AND Plan * 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 Ackerman, and discussed. 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 Path was sent out for special consult - per [place], results in. Will get path sent to [facility] for second review - Bmbx negative for involvement lymphoma - CT CAP, ECHO - done. EF 57% - CBC and LFTs daily. Will get BMP, Uric Acid and Phos BID - IVFs and monitor for TLS - Started Allopurinol 300mg daily, Solumderol 120mg daily IV, nystatin and a PPI --- Solumedrol was stopped and he was transitioned to Prednisone 100mg daily for 5 days starting 07/14/20 -- will need to go home on PO Prednisone for his 5 day total (last day is 07/18/20) - Will hold off on biliary drain - IR biliary duct stent/drain for now. TBili down to 1.8. RUQ US on 07/13 with improved/no dilation Recommendations: - Initiated R-CHOP 07/14/2020. Will get Neulasta today 07/15. With elevated liver functions decreased Adriamycin dose to 25% of normal and Vincristine to 50%. Should be able to get full dose with C2 - Monitor labs and patient closely, especially for TLS once chemotherapy initiates. Labs have been stable - Should be able to go home with close follow-up in [place]. Will need Mediport placed in [place]. Will go home with PICC line for time being. - Send home on Allopurinol, Zofran and prednisone Elevated liver transaminase level - Related to enlarged LN and biliary obstruction - Improved Tbili and LFTs - Monitor labs daily - if worsening bilirubin will need IR stent placement - Avoid Tylenol for now Jaundice Related to elevated bilirubin Resolved Malignant neoplasm of prostate (HCC) In remission per patient History of radiation, surgery and lupron injections History of hepatitis C - Continue to follow while undergoing chemotherapy - history of recent infection - Hep C Quant RNA - neagtive - no need for any intervention at this time Pain -Related to lymphoma - Palliative consulted - appreciate recommendations - Improved Patient clear to be discharged today from Heme/Onc perspective. Will discharge on Prednisone 100mg daily for 5 days total (07/14-07/18), Zofran prn and Allopurinol daily. He should follow-up with oncologist in [place]. Dr. Atkins will call to discuss case. No follow-up here needed He will go home with PICC line - will need Mediport in future We will get Path sent to [facility] for second opinion - patient signed consent Plan of care as above. Thank you for allowing us to participate in the care of this patient. Will sign off. Please don't hesitate to call us with any further questions. Medication and Non-Pharmacologic VTE Prophylaxis/Anticoagulants 07/09/202114 pneumatic compression stockings ([place], [place]) 07/09/202114 activity - mobilize patient ([place], [place]) SIGNATURE: Claudia Arguelles PATIENT NAME: Alejandro Killian DATE: July 15, 2020 TIME: 1:10 PM PAGER/CONTACT #: [phone] [facility] PROGRESS HNO ID: [id number] Author: Sharon Guzman Service: General Internal Medicine Author Type: Physician Type: Progress Notes Filed: 07/16/2020 9:30 PM Note Text: INTERNAL MEDICINE PROGRESS NOTE SERVICE DATE: 07/15/2020 ADMITTING PHYSICIAN: Sharon Guzman INTERVAL HISTORY OF PRESENT ILLNESS: Patient awake in bed. He states is tired but not any ore than he has been throughout this process. Awaiting oncology clearance. No sob. No CP. Current Facility-Administered Medications Medication Dose Route Frequency - ondansetron (PF) 8 mg injection (ZOFRAN) 8 mg INTRAVENOUS q 8 H PRN - prochlorperazine 10 mg injection (COMPAZINE) 10 mg INTRAVENOUS q 6 H PRN - NaCl 0.9% iv infusion 500-999 mL/hr INTRAVENOUS PRN - EPINEPHrine 1 mg/mL (1 mL) 0.3 mg injection 0.3 mg INTRAMUSCULAR PRN - predniSONE 100 mg tab(s) (DELTASONE) 100 mg ORAL DAILY - polyethylene glycol 3350 17 g packet (MIRALAX, GLYCOLAX) 17 g ORAL DAILY - nystatin 5 mL oral liquid (MYCOSTATIN) 5 mL ORAL BID - cloNIDine HCl 0.1 mg tab(s) (CATAPRES) 0.1 mg ORAL q 8 H - allopurinol 300 mg tab(s) (ZYLOPRIM) 300 mg ORAL DAILY - NaCl 0.9% iv infusion 100 mL/hr INTRAVENOUS CONTINUOUS - iv contrast (radiology procedure) INTRAVENOUS DIRECTED PRN - sodium chloride 0.9 % (flush) 10 mL (BD POSIFLUSH) 10 mL INTRAVENOUS q 12 H - sodium chloride 0.9 % (flush) 20 mL (BD POSIFLUSH) 20 mL INTRAVENOUS PRN - pantoprazole DR 20 mg tab(s) (PROTONIX) 20 mg ORAL DAILY (6 AM) - senna 8.6 mg tab(s) (SENOKOT) 8.6 mg ORAL BID - bisacodyl 10 mg suppository (DULCOLAX) 10 mg RECTAL DAILY PRN - magnesium hydroxide 400 mg/5 mL 30 mL (MOM) 30 mL ORAL DAILY PRN - sodium chloride 0.9 % (flush) 10 mL (BD POSIFLUSH) 10 mL INTRAVENOUS q 12 H - sodium chloride 0.9 % (flush) 20 mL (BD POSIFLUSH) 20 mL INTRAVENOUS PRN - docusate sodium 100 mg cap(s) (COLACE) 100 mg ORAL BID - oxyCODONE IR 5 mg tab(s) (ROXICODONE) 5 mg ORAL q 4 H PRN - fentaNYL 50 mcg/mL 25 mcg injection (SUBLIMAZE) 25 mcg INTRAVENOUS q 3 H PRN - nicotine 14 mg/24 hr 1 Patch (NICODERM) 1 Patch TRANSDERMAL DAILY And - nicotine -- REMOVE patch OTHER DAILY And - nicotine - verify patch OTHER q 8 H - atropine 0.5 mg injection 0.5 mg INTRAVENOUS PRN(NO DISPENSE) - amiodarone 150 mg in D5W 100 mL (NEXTERONE) 150 mg INTRAVENOUS PRN(NO DISPENSE) - fluticasone-vilanterol 100-25 mcg/dose 1 Inhalation (BREO ELLIPTA) 1 Inhalation INHALATION DAILY - fentaNYL 25 mcg/hr 1 Patch (DURAGESIC) 1 Patch TRANSDERMAL q 72 HR And - fentaNYL - REMOVE PATCH OTHER q 72 HR And - fentaNYL - VERIFY PATCH OTHER q 8 H Objective PHYSICAL EXAM: Patient Vitals for the past 24 hrs: BP Temp Temp src Pulse Resp SpO2 Weight 07/15/20 0800 152/70 36.3 ?C (97.3 ?F) Oral (!) 58 17 96 % ? 07/15/20 0619 177/73 36.7 ?C (98.1 ?F) Oral (!) 57 16 96 % ? 07/14/20 2343 174/83 36.8 ?C (98.2 ?F) Oral 69 18 96 % ? 07/14/20 1943 147/77 37.1 ?C (98.8 ?F) Oral 78 17 96 % ? 07/14/20 1855 155/79 ? 07/14/20 1822 159/81 ? 07/14/20 1739 170/77 ? 07/14/20 1704 185/88 ? ? 69 ? ? ? 07/14/20 1637 196/90 ? ? (!) 56 ? ? ? 07/14/20 1604 192/77 36.5 ?C (97.7 ?F) ? (!) 54 ? 100 % ? 07/14/20 1518 175/82 ? ? 62 ? 99 % ? 07/14/20 1501 179/89 ? ? (!) 50 ? 99 % ? 07/14/20 1453 155/79 ? 100 % ? 07/14/20 1428 132/69 ? 07/14/20 1420 142/67 ? 07/14/20 1357 151/72 36.2 ?C (97.1 ?F) ? (!) 57 16 97 % ? 07/14/20 1225 ? 62.1 kg (136 lb 14.4 oz) 07/14/20 1151 139/73 36.9 ?C (98.4 ?F) Oral (!) 56 16 99 % ? Body mass index is 20.82 kg/m?. GENERAL: Alert, no distress, cooperative SKIN: Skin color, texture, turgor normal. No rashes or lesions. OROPHARYNX: Lips, mucosa, and tongue are normal.Teeth and gums, normal. Oropharynx normal. NECK: No jugulovenous distention, Supple LUNGS: Lungs clear to auscultation. Good diaphragmatic excursion. CARDIAC: Normal S1 and S2; no rubs, murmurs, or gallops ABDOMEN: Soft, nontender EXTREMITIES: No ulcers NEURO: Alert, oriented X 3, Cranial nerves II-XII intact PULSES: 2+ radial, 2+ dorsalis pedis DATA: Diagnostic tests reviewed for today's visit: Most recent labs and imaging results. Assessment/Plan Active Hospital Problems ??Jaundice [R17] ?Bile duct obstruction * GI consult --sign off - IR PTHC with brushing?- 07/13 if not improved - Ca19 - WNL, CEA: mildly elevated, LFT's- improving, INR * Onc/hem consult - palliative care - pain control - oncology rec: transition to oral steroids, initiate chemo - pt wants to receive care in [place]- closer to [place] - awaiting path results - CBC and LFT's daily ? B cell non-Hodgkin's lymphoma * oncology eval - Plan to?initiate?R-CHOP 07/14 - Neulasta on 07/15 Constipation - bowel regimen - senna, miralax ? Hep C * ID eval --sign off - Hep C suppressive therapy for safe admin of chemo - HCV RNA - not detected - no Indication for HCV therapy ? Elevated blood pressure - ? Secondary to pain - no dx of HTN - monitor ? Nicotine dependence - nicotine patch, info to quit ? Hypokalemia - replete- IV ?x3, recheck - add- on mag ? COPD - BREO ? Plan of care discussed with Dr. Thomas Lebron, CANDLE CUTTER.CANDY SPREADER HELPER July 15, 2020 11:24 AM ?Attending: Reviewed, discussed with CANDY SPREADER HELPER. Meds, notes, orders reviewed. Agree with mckinney history, findings and plan. Discussed with consultants. Sharon Guzman MD Normal [facility] Renal Function Panelon 07-15 Anion gap [Moles/Vol] 8 mmol/L Low 9-18 [facility] Calcium [Mass/Vol] 8.8 mg/dL Normal 8.5-10.2 [facility] Chloride [Moles/Vol] 104 mmol/L Normal 97-105 [facility] CO2 [Moles/Vol] 26 mmol/L Normal 22-33 [facility] Creatinine [Mass/Vol] 0.70 mg/dL Low 0.73-1.22 [facility] eGFR- Amer. >60 Normal [facility] GFR/1.73 sq M predicted among non-blacks MDRD (S/P/Bld) [Vol rate/Area] mL/min/{1.73_m2} Normal [facility] Comment on above: Result Comment: eGFR (Estimated GFR) Units of measure: mL/min/1.73 meters squared eGFR is derived from the reexpressed MDRD Study equation using the following parameters: serum creatinine, age, gender and race. The creatinine assay has been calibrated to be traceable to IDMS. An eGFR <60 mL/min/1.73m2 for >3 months is consistent with chronic kidney disease. Refer to KDOQI guidelines for clinical interpretation. In patients with unstable renal function, e.g. those with acute kidney injury, the eGFR may not accurately reflect actual GFR. Glucose [Mass/Vol] 117 mg/dL High 74-99 [facility] Phosphate [Mass/Vol] 3.2 mg/dL Normal 2.7-4.8 [facility] Potassium [Moles/Vol] 3.8 mmol/L Normal 3.7-5.1 [facility] Sodium [Moles/Vol] 138 mmol/L Normal 136-144 [facility] Urea nitrogen [Mass/Vol] 14 mg/dL Normal 9-24 [facility] Albumin [Mass/Vol] 3.8 g/dL Low 3.9-4.9 [facility] Comment on above: Performed By: #### L D6 ####[facility] [id number] [place], [place] [phone] Anion gap [Moles/Vol] 11 mmol/L Normal 9-18 [facility] Comment on above: Performed By: #### L D6 ####[facility] [id number] [place], [place] [phone] Calcium [Mass/Vol] 8.8 mg/dL Normal 8.5-10.2 [facility] Comment on above: Performed By: #### L D6 ####[facility] [id number] [place], [place] [phone] Chloride [Moles/Vol] 104 mmol/L Normal 97-105 [facility] Comment on above: Performed By: #### L D6 ####[place] [id number] [place], [place] [phone] CO2 [Moles/Vol] 25 mmol/L Normal 22-33 [facility] Comment on above: Performed By: #### L D6 ####[place] [address] [address] [place], [place] [phone] Creatinine [Mass/Vol] 0.80 mg/dL Normal 0.73-1.22 [facility] Comment on above: Performed By: #### L D6 ####[place] [address] [address] [place], [place] [phone] eGFR- Amer. >60 Normal [facility] Comment on above: Performed By: #### L D6 ####[place] [address] [place], [place] [phone] GFR/1.73 sq M predicted among non-blacks MDRD (S/P/Bld) [Vol rate/Area] mL/min/{1.73_m2} Normal [facility] Comment on above: Result Comment: eGFR (Estimated GFR) Units of measure: mL/min/1.73 meters squared eGFR is derived from the reexpressed MDRD Study equation using the following parameters: serum creatinine, age, gender and race. The creatinine assay has been calibrated to be traceable to IDMS. An eGFR <60 mL/min/1.73m2 for >3 months is consistent with chronic kidney disease. Refer to KDOQI guidelines for clinical interpretation. In patients with unstable renal function, e.g. those with acute kidney injury, the eGFR may not accurately reflect actual GFR. Performed By: #### L D6 ####[facility] [place], [place] [phone] Glucose [Mass/Vol] 123 mg/dL High 74-99 [facility] Comment on above: Performed By: #### L D6 ####[place] [address] [place], [place] [phone] Phosphate [Mass/Vol] 3.1 mg/dL Normal 2.7-4.8 [facility] Comment on above: Performed By: #### L D6 ####[address] [phone] Potassium [Moles/Vol] 4.0 mmol/L Normal 3.7-5.1 [facility] Comment on above: Performed By: #### L D6 ####[address] [phone] Sodium [Moles/Vol] 140 mmol/L Normal 136-144 [facility] Comment on above: Performed By: #### L D6 ####[address] [phone] Urea nitrogen [Mass/Vol] 14 mg/dL Normal 9-24 [facility] Comment on above: Performed By: #### L D6 ####[address] [phone] Uric Acidon 07-15-2020 Urate [Mass/Vol] 2.1 mg/dL Low 4.0-8.1 [facility] Comment on above: Performed By: #### L D6 ####[address] [phone] Urate [Mass/Vol] 2.1 mg/dL Low 4.0-8.1 [facility] Comment on above: Performed By: #### L D6 ####[facility] [place] [address] [phone] Basic Metabolic Panlon 07-14 Anion gap [Moles/Vol] 8 mmol/L Low 9-18 [facility] Calcium [Mass/Vol] 9.3 mg/dL Normal 8.5-10.2 [facility] Chloride [Moles/Vol] 102 mmol/L Normal 97-105 [facility] CO2 [Moles/Vol] 28 mmol/L Normal 22-33 [facility] Creatinine [Mass/Vol] 0.76 mg/dL Normal 0.73-1.22 [facility] eGFR- Amer. >60 Normal [facility] GFR/1.73 sq M predicted among non-blacks MDRD (S/P/Bld) [Vol rate/Area] mL/min/{1.73_m2} Normal [facility] Comment on above: Result Comment: eGFR (Estimated GFR) Units of measure: mL/min/1.73 meters squared eGFR is derived from the reexpressed MDRD Study equation using the following parameters: serum creatinine, age, gender and race. The creatinine assay has been calibrated to be traceable to IDMS. An eGFR <60 mL/min/1.73m2 for >3 months is consistent with chronic kidney disease. Refer to KDOQI guidelines for clinical interpretation. In patients with unstable renal function, e.g. those with acute kidney injury, the eGFR may not accurately reflect actual GFR. Glucose [Mass/Vol] 90 mg/dL Normal 74-99 [facility] Potassium [Moles/Vol] 3.2 mmol/L Low 3.7-5.1 [facility] Sodium [Moles/Vol] 138 mmol/L Normal 136-144 [facility] Urea nitrogen [Mass/Vol] 14 mg/dL Normal 9-24 [facility] CBC and Differentialon 07-14 Abs Baso 0.04 k/uL Normal <0.11 [facility] Abs [place] 0.76 k/uL Normal <0.87 [facility] Abs Neut 7.15 k/uL Normal 1.45-7.50 [facility] Absolute nRBC <0.01 Normal <0.01 [facility] Basophils/100 WBC (Bld) 0.4 % Normal [facility] DTYPE Auto Diff Normal [facility] Eosinophils (Bld) [#/Vol] 0.13 10*3/uL Normal <0.46 [facility] Eosinophils/100 WBC (Bld) 1.2 % Normal [facility] Erythrocyte distribution width (RBC) [Ratio] 14.0 % Normal 11.5-15.0 [facility] Hematocrit (Bld) [Volume fraction] 36.1 % Low 39.0-51.0 [facility] Hemoglobin (Bld) [Mass/Vol] 12.1 g/dL Low 13.0-17.0 [facility] Lymphocytes (Bld) [#/Vol] 2.38 10*3/uL Normal 1.00-4.00 [facility] Lymphocytes/100 WBC (Bld) 22.8 % Normal [facility] MCH (RBC) [Entitic mass] 31.4 pG Normal 26.0-34.0 [facility] MCHC (RBC) [Mass/Vol] 33.5 g/dL Normal 30.5-36.0 [facility] MCV (RBC) [Entitic vol] 93.8 fL Normal 80.0-100.0 [facility] Monocytes/100 WBC (Bld) 7.3 % Normal [facility] Neutrophils/100 WBC (Bld) 68.3 % Normal [facility] NRBCs 0.0 /100 WBC Normal 0 [facility] Platelet mean volume (Bld) [Entitic vol] 11.6 fL Normal 9.0-12.7 [facility] Platelets (Bld) [#/Vol] 240 10*3/uL Normal 150-400 [facility] RBC (Bld) [#/Vol] 3.85 10*6/uL Low 4.20-6.00 [facility] WBC (Bld) [#/Vol] 10.46 10*3/uL Normal 3.70-11.00 [facility] CNCNPATEDon 07-14-2020 CNCNPATED Education ([facility]) ALEJANDRO KILLIAN ([id number]) 1955 M Date Time Provider Department 07/14/20 10:30 AM 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 Patient educated while an inpatient at [facility]. READINESS TO LEARN: COGNITIVE ABILITY: Alert and oriented MOTIVATION TO LEARN: Interested FAMILY SUPPORT: Unable to assess - Family not present INSTRUCTION PROVIDED TO: Patient INSTRUCTION PROVIDED BY: Pharmacist PATIENT LEARNS BEST BY: Unable to Assess FACTORS AFFECTING LEARNING: None PHYSICAL LIMITATIONS AFFECTING LEARNING: None LEARNING RESPONSE DIAGNOSIS: NHL METHOD OF INSTRUCTION: Individual instruction Written instruction - handouts Verbal instruction PATIENT/FAMILY RESPONSE: Verbalizes understanding of: CHEMOTHERAPY-Regimen, toxicity and side effects FOLLOW UP PLAN: Complete - No need for follow-up SUPPLEMENTAL MATERIAL: Written material was provided at this visit with the following information: - Chemotherapy education was provided by a pharmacist YES - Side effect management information was provided/discussed including but not limited to: bowel habit changes, cardiac toxicity, fatigue, hair loss, hypersensitivity reaction, infection, mucositis, nausea/vomitting, neutropenia, peripheral neuropathy, shortness of breath YES - Provided important phone numbers and contacts during and after hours. YES - Provided information on symptoms that require immediate assistance. YES - Provided Chemotherapy when to call handouts YES - Preventing infection. YES - Treatment schedule and confirmation of appointment times. YES - Available support groups. YES - The importance of contraception during the course of chemotherapy YES - 4th Syed Information. 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] During your visit today, we recorded the following information about you: Allergies As of Date: 07/14/2020 Noted Allergy Reaction DOXYCYCLINE 12/30/2014 8 - GI Upset Date Reviewed: 07/13/2020 Reviewed by: Ashley Brito) HÉCTOR Roque - Fully Assessed Prescriptions as of 07/14/2020 Sig: BUDESONIDE-FORMOTEROL HFA 160* Inhale 2 Puffs as instructed * OXYCODONE-ACETAMINOPHEN 5 MG-* Take 1 tablet by mouth every * FENTANYL 25 MCG/HR TRANSDERMA* Apply 1 Patch as directed nathan* DOCUSATE SODIUM 100 MG CAPSULE Take 100 mg by mouth once gurjit* LEUPROLIDE (6 MONTH) 45 MG IN* Inject 45 mg intramuscularly * FLUTICASONE 250 MCG-SALMETERO* Inhale 1 Puff as instructed t* ALBUTEROL SULFATE HFA 90 MCG/* Inhale 2 Puffs as instructed * * IBUPROFEN ORAL Take by mouth. * ADULT LOW DOSE ASPIRIN 81 MG * Take one(1) tablet daily. Encounter Status:Closed by LINK (PHARMACIST)FREDDY on 07/14/20 [facility] CONSULT PROGon 07-14-2020 CONSULT PROG HNO ID: [id number] Author: Izzy Pearson Service: Gastroenterology Author Type: Nurse Practitioner Type: Consult Progress Note Filed: 07/14/2020 1:09 PM Note Text: Attempted to see patient; another provider at bedside Epic reviewed HCV quant RNA negative LFTs continue to improve daily Heme/Onc changed steroids from IV to PO GI will sign off. Available as needed Izzy Pearson APRN.CNP July 14, 2020 1:08 PM [facility] CONSULT PROG HNO ID: [id number] Author: Dory Argueta Service: Palliative Care Author Type: Nurse Practitioner Type: Consult Progress Note Filed: 07/14/2020 10:19 AM Note Text: PALLIATIVE MEDICINE CONSULT PROGRESS NOTE To contact the [place] palliative medicine service from 5p - 8a on weekdays and anytime during the weekend, please page [phone] SERVICE DATE: 07/14/2020 PATIENT NAME: Alejandro Killian Subjective Primary Site of Disease/Medical Illness: Probable aggressive B cell Lymphoma Pertinent Medical History:h/o prostate cancer, COPD, Renal Cyst, BPH INTERVAL HPI: continues to feel well. He is up walking in the hallways this morning. Pain remains controlled well. REVIEW OF SYSTEMS Modified ESAS ([place] Symptom Assessment Scale): Information Provided By: Patient Pain: None Nausea: None Loss of Appetite: None Constipation: Mild Shortness of Breath: None Drowsiness: None Tiredness: Mild Depression: None Anxiety: None How you feel overall: Good Other problem: None Objective PHYSICAL EXAMINATION Vital Signs: BP 153/72 Pulse 62 Temp 36.5 ?C (97.7 ?F) (Oral) Resp 17 Ht 172.7 cm (5' 8) Wt 61 kg (134 lb 8 oz) SpO2 96% BMI 20.45 kg/m? General Appearance: No apparent distress Skin: Jaundice Resp: Unlabored respiratory effort CV: Regular rate and rhythm GI: Soft Psych: Oriented to: Time, Place, Person and Situation DATA Diagnostic tests and information reviewed for today's visit: Most recent labs and imaging results. Impression/Recommendations Alejandro Prasad is a 65 year old male admitted on 07/09/2020 for jaundice. Care complicated by obstructive jaundice due to new probable diagnosis of Non-Hodgkin's Lymphoma. Palliative Medicine on for pain management. -Highly suspected Non-Hodgkin's Lymphoma with intra-abdominal LNs -Abdominal Pain/Cancer Related Pain -Constipation -BPH -COPD -Jaundice Some elements copied from Pall Med note on 07/13/2020, the elements have been updated and all reflect current decision making from today, 07/14/2020. Recommendations: Abdominal Pain/Cancer related pain? -Intra-abdominal LNs -Pain radiates to bilateral flank -Continue fentanyl 25mcg/hr patch -Continue oxycodone IR PRN Constipation -Reports improvement in bowel movements -Continue senna 1 tab BID -Continue Miralax daily Care Planning -Palliative medicine to continue to follow - Advance Care Planning: Did not discuss Global Assessment: Improving Plan of Care discussed with: Patient and RN SIGNATURE: Dory Argueta APRN.CANDY SPREADER HELPER PAGER/CONTACT #: [phone] Normal [facility] Hepatic Functn Panelon 07-14 Albumin [Mass/Vol] 3.9 g/dL Normal 3.9-4.9 [facility] ALP [Catalytic activity/Vol] 148 U/L High 38-113 [facility] ALT [Catalytic activity/Vol] 86 U/L High 10-54 [facility] AST [Catalytic activity/Vol] 30 U/L Normal 14-40 [facility] Bilirubin [Mass/Vol] 2.1 mg/dL High 0.2-1.3 [facility] Bilirubin,Conjugate d 1.4 mg/dL High <0.2 [facility] Protein [Mass/Vol] 5.7 g/dL Low 6.3-8.0 [facility] NURSING PROGon 07-14-2020 NURSING PROG HNO ID: [id number] Author: Fidencio (Rn) HÉCTOR Null Service: ? Author Type: Registered Nurse Type: Nursing Progress Note Filed: 07/14/2020 9:11 PM Note Text: Nursing Progress Note Patient Name: Alejandro Killian Patient Location: [place] [id number] Daily Note: 1920: Assumed care of patient and bedside report received. Patient AANDOx3, resting comfortably in bed. No signs of distress or discomfort, denies any pain or needs at this time. IVF infusing per MAR without difficulty. Bed in lowest position and locked. Call light and possessions within reach. Will continue to monitor. 1939: Premed for chemo administered. 1958: Doxorubicin administered via MIGUEL PICC, blood return present, verified with second nurse, Erum Johnson RN. Patient tolerated well. Will continue to monitor. 2025: Vincristine administered, verified with Erum Johnson RN. Patient tolerated well, will continue to monitor. 2058: Cytoxan administered, verified with Erum Johnson RN. Patient tolerated well. Will continue to monitor. This note was completed by: FIDENCIO NULL RN [facility] NURSING PROG HNO ID: [id number] Author: Luzma SorensonRn) HÉCTOR De Service: Nursing Author Type: Registered Nurse Type: Nursing Progress Note Filed: 07/14/2020 5:04 PM Note Text: Nursing Progress Note Patient Name: Alejandro Killian Patient Location: [place] [address] [address] Daily Note: 1011 patient awake resting in bed, pleasant call light explained and in reach. ivf infusing as ordered. Dr atkins in to see patient already this morning, planning for chemo infusion today. Patient is pleasant aox3. No distress. Tele maintained. 1430 tolerating rituximab infusion as ordered. See mar for titration. BP monitored and patient monitored closely. Patient reports no SOB/ hives/ itching/ tremors/ nausea/ pain or distress. 1453 patient reports chest tightness. Held rituximab. Call and spoke with damion FISH HATCHERY MANAGER with [facility], informed her, she will discuss with dr atkins and call me back. Ok to keep rituximab on hold until she calls me back. 1459 per damion, FISH HATCHERY MANAGER- administer solucortef, benadryl, and pepcid (will order), continue to hold infusion and restart if symptoms resolve. 1505 symptoms remain the same. 1532 dr atkins in to see patient . States to wait 30 minutes and restart at lower initial dose. Continue to hold clonidine per dr atkins. 1604 patient still feels pain/ fullness/ tightness in his chest/ abdomen but states its definitely more tolerable vitals taken, resumed at 50mg/hr 1703 patients symptoms as above have completely resolved. Tolerating infusion. This note was completed by: Luzma De RN [facility] NURSING PROG HNO ID: [id number] Author: Ashley SorensonRn) HÉCTOR Roque Service: Nursing Author Type: Registered Nurse Type: Nursing Progress Note Filed: 07/14/2020 12:06 AM Note Text: Nursing Progress Note Patient Name: Alejandro Killian Patient Location: [place] [id number] 2330 Assumed care of pt. Pt awake, alert. Resting in bed. Respirations even and unlabored. IV fluids infusing without difficulty via left arm picc. Denies any needs at this time. call rodriguez within reach. BP still elevated after prn med given previously. Will call Dr Guzman. 2350 Dr Guzman aware of increased bp, order given for additional clonidine. This note was completed by: Ashley Roque RN [facility] PROGRESSon 07-14-2020 PROGRESS HNO ID: [id number] Author: Freddy Ohara (Pharmacist) Service: ? Author Type: Pharmacist Type: Progress Notes Filed: 07/14/2020 2:05 PM Note Text: ONCOLOGY PATIENT EDUCATION NOTE TOPIC: Chemotherapy Education: R-CHOP (rituximab, cyclophosphamide, doxorubicin, vincristine, an prednisone) for treatment of NHL. Patient educated while an inpatient at [facility]. READINESS TO LEARN: COGNITIVE ABILITY: Alert and oriented MOTIVATION TO LEARN: Interested FAMILY SUPPORT: Unable to assess - Family not present INSTRUCTION PROVIDED TO: Patient INSTRUCTION PROVIDED BY: Pharmacist PATIENT LEARNS BEST BY: Unable to Assess FACTORS AFFECTING LEARNING: None PHYSICAL LIMITATIONS AFFECTING LEARNING: None LEARNING RESPONSE DIAGNOSIS: NHL METHOD OF INSTRUCTION: Individual instruction Written instruction - handouts Verbal instruction PATIENT/FAMILY RESPONSE: Verbalizes understanding of: CHEMOTHERAPY-Regimen, toxicity and side effects FOLLOW UP PLAN: Complete - No need for follow-up SUPPLEMENTAL MATERIAL: Written material was provided at this visit with the following information: - Chemotherapy education was provided by a pharmacist YES - Side effect management information was provided/discussed including but not limited to: bowel habit changes, cardiac toxicity, fatigue, hair loss, hypersensitivity reaction, infection, mucositis, nausea/vomitting, neutropenia, peripheral neuropathy, shortness of breath YES - Provided important phone numbers and contacts during and after hours. YES - Provided information on symptoms that require immediate assistance. YES - Provided Chemotherapy when to call handouts YES - Preventing infection. YES - Treatment schedule and confirmation of appointment times. YES - Available support groups. YES - The importance of contraception during the course of chemotherapy YES - 4th Syed Information. YES Time Spent: 30 minutes REFERRAL (RECOMMENDATION): N/A Memo Etienne Normal [facility] PROGRESS HNO ID: [id number] Author: Ceferino Atkins Service: Hematology/Oncology Author Type: Physician Type: Progress Notes Filed: 07/14/2020 6:45 PM Note Text: SERVICE DATE: 07/14/2020 SERVICE TIME: 10:20 AM HEMATOLOGY / ONCOLOGY After 3pm, please page the on-call [phone] Subjective INTERVAL HPI: Alejandro is doing well today, ready for chemotherapy. Eating breakfast. No abdominal pain. No nausea or vomiting. Has support from friends regarding transportation. He does drive. Would prefer to get care in [place], closer to home REVIEW OF SYSTEMS: See HPI Objective Vitals: Temp (24hrs), Av.7 ?C (98 ?F), Min:36.5 ?C (97.7 ?F), Max:36.8 ?C (98.3 ?F) BP 153/72 Pulse 62 Temp 36.5 ?C (97.7 ?F) (Oral) Resp 17 Ht 172.7 cm (5' 8) Wt 61 kg (134 lb 8 oz) SpO2 96% BMI 20.45 kg/m? Intake AND Output Intake/Output Summary (Last 24 hours) at 07/14/2020 1009 Last data filed at 07/14/2020 0845 Gross per 24 hour Intake 2920 ml Output ? Net 2920 ml PHYSICAL EXAM GENERAL: No acute distress; alert and oriented x 3 HEENT: Sclera anicteric. No mucositis. No thrush LUNGS: Clear to auscultation; no wheezing, rhonchi or rales HEART: Regular rhythm; normal rate ABDOMEN: Bowel sounds present; soft, non-tender and not distended EXTREMITIES: No edema. Muscular strength equal in all extremities SKIN: No rash or ecchymosis VENOUS ACCESS: No concerns MEDICATIONS Current Facility-Administered Medications Medication Dose Route Frequency - polyethylene glycol 3350 17 g packet (MIRALAX, GLYCOLAX) 17 g ORAL DAILY - nystatin 5 mL oral liquid (MYCOSTATIN) 5 mL ORAL BID - cloNIDine HCl 0.1 mg tab(s) (CATAPRES) 0.1 mg ORAL q 8 H - allopurinol 300 mg tab(s) (ZYLOPRIM) 300 mg ORAL DAILY - NaCl 0.9% iv infusion 100 mL/hr INTRAVENOUS CONTINUOUS - perflutren lipid microspheres 1.1 mg/mL 1.3 mL injection (DEFINITY) 1.3 mL INTRAVENOUS DIRECTED PRN - iv contrast (radiology procedure) INTRAVENOUS DIRECTED PRN - sodium chloride 0.9 % (flush) 10 mL (BD POSIFLUSH) 10 mL INTRAVENOUS q 12 H - sodium chloride 0.9 % (flush) 20 mL (BD POSIFLUSH) 20 mL INTRAVENOUS PRN - pantoprazole DR 20 mg tab(s) (PROTONIX) 20 mg ORAL DAILY (6 AM) - senna 8.6 mg tab(s) (SENOKOT) 8.6 mg ORAL BID - bisacodyl 10 mg suppository (DULCOLAX) 10 mg RECTAL DAILY PRN - magnesium hydroxide 400 mg/5 mL 30 mL (MOM) 30 mL ORAL DAILY PRN - sodium chloride 0.9 % (flush) 10 mL (BD POSIFLUSH) 10 mL INTRAVENOUS q 12 H - sodium chloride 0.9 % (flush) 20 mL (BD POSIFLUSH) 20 mL INTRAVENOUS PRN - docusate sodium 100 mg cap(s) (COLACE) 100 mg ORAL BID - oxyCODONE IR 5 mg tab(s) (ROXICODONE) 5 mg ORAL q 4 H PRN - ondansetron (PF) 4 mg injection (ZOFRAN) 4 mg INTRAVENOUS q 4 H PRN - fentaNYL 50 mcg/mL 25 mcg injection (SUBLIMAZE) 25 mcg INTRAVENOUS q 3 H PRN - nicotine 14 mg/24 hr 1 Patch (NICODERM) 1 Patch TRANSDERMAL DAILY And - nicotine -- REMOVE patch OTHER DAILY And - nicotine - verify patch OTHER q 8 H - atropine 0.5 mg injection 0.5 mg INTRAVENOUS PRN(NO DISPENSE) - amiodarone 150 mg in D5W 100 mL (NEXTERONE) 150 mg INTRAVENOUS PRN(NO DISPENSE) - fluticasone-vilanterol 100-25 mcg/dose 1 Inhalation (BREO ELLIPTA) 1 Inhalation INHALATION DAILY - fentaNYL 25 mcg/hr 1 Patch (DURAGESIC) 1 Patch TRANSDERMAL q 72 HR And - fentaNYL - REMOVE PATCH OTHER q 72 HR And - fentaNYL - VERIFY PATCH OTHER q 8 H LABORATORY DATA Recent Labs 07/14/20 0647 07/13/20 0543 07/12/20 0448 WBC 10.46 10.75 10.86 RBC 3.85* 3.78* 3.63* HB 12.1* 11.9* 11.5* HCT 36.1* 35.6* 34.3* PLT 240 240 233 MCV 93.8 94.2 94.5 MCH 31.4 31.5 31.7 MCHC 33.5 33.4 33.5 RDWCV 14.0 14.2 14.4 MPV 11.6 11.9 11.8 NEUTP 68.3 72.6 74.8 ABSNEUT 7.15 7.81* 8.14* LYMPHP 22.8 19.3 17.8 MONOP 7.3 7.0 6.4 EODINP 1.2 0.7 0.6 BASOP 0.4 0.4 0.4 ABSMONO 0.76 0.75 0.69 ABSEOSIN 0.13 0.07 0.06 ABSBASO 0.04 0.04 0.04 Recent Labs 07/14/20 0648 07/14/20 0647 07/13/20 1214 07/13/20 0543 07/12/20 0448 NA -- 138 145* 140 140 K -- 3.2* 4.1 4.6 3.6* CHLOR -- 102 105 102 106* CO2 -- 28 27 27 26 CREAT -- 0.76 0.73 0.67* 0.62* BUN -- 14 15 12 13 GLUC -- 90 126* 91 96 P -- -- -- 2.9 2.8 TPROT 5.7* -- -- 6.1* 5.9* ALB 3.9 -- -- 3.9 3.9 3.8* MG -- -- -- -- 1.8 CA -- 9.3 9.7 7.8* 9.2 ALKPHOS 148* -- -- 163* 178* TBILI 2.1* -- -- 2.5* 2.9* AST 30 -- -- 32 43* ALT 86* -- -- 101* 123* URICACID -- 2.5* -- 2.4* 3.0* PTSEC -- -- -- -- 10.9 INR -- -- -- -- 1.0 Lines, Drains, and Airways Line Central Line Single Lumen 07/10/20 1714 Peripherally Inserted (PICC) Left Arm 4.0 Citizen Of [place] 3 days DATA: Diagnostic tests reviewed for today's visit: Most recent labs and imaging [facility] 07/14/2020: IMPRESSION: Minimal to no intrahepatic biliary ductal dilation compared to the prior CT. Again seen hepatic hilar/periportal soft tissue mass/lymphoma. Gallbladder sludge. Assessment AND Plan * 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) - Enlarged Portahepatic LNs - outside imaging - CT guided bx LN portahepatic at [facility] -- called pathology ([phone]), Dr. Ackerman, and discussed. 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 Path was sent out for special consult - awaiting final results. Should be finalized today, will get results faxed - Once results are back, we will need to get path/bx sent to [facility] for second review - Bmbx pending - CT CAP, ECHO - done. EF 57% - CBC and LFTs daily. Will get BMP, Uric Acid and Phos BID - IVFs and monitor for TLS - Started Allopurinol 300mg daily, Solumderol 120mg daily IV (including today), nystatin and a PPI --- will stop solumedrol and transition to Prednisone 100mg daily for 5 days starting today, 07/14/20 - Will hold off on biliary drain - IR biliary duct stent/drain for now. TBili down to 2.1. RUQ US on 07/13 with improved/no dilation Recommendations: - Will initiate R-CHOP today, 07/14/2020. Will get Neulasta on 07/15. With elevated liver functions will decrease Adriamycin dose to 75% and Vincristine to 50%. Should be able to get full dose with C2 - Monitor labs and patient closely, especially for TLS once chemotherapy initiates. - Should be able to go home tomorrow with close follow-up in [place] if he is doing well. Will need Mediport placed in [place]. Will go home with PICC line for time being. Elevated liver transaminase level - Related to enlarged LN and biliary obstruction - Improved Tbili and LFTs - RUQ US yesterday with improvement - Monitor labs daily - if worsening bilirubin will need IR stent placement - Avoid Tylenol for now Jaundice Related to elevated bilirubin Resolved Malignant neoplasm of prostate (HCC) In remission per patient History of radiation, surgery and lupron injections History of hepatitis C - Continue to follow while undergoing chemotherapy - history of recent infection - Hep C Quant RNA - neagtive Pain -Related to lymphoma - Palliative consulted - appreciate recommendations - Improved Medication and Non-Pharmacologic VTE Prophylaxis/Anticoagulants 07/09/202114 pneumatic compression stockings ([place]) 07/09/202114 activity - mobilize patient ([place], [place]) SIGNATURE: Claudia Arguelles PATIENT NAME: Alejandro Killian DATE: July 14, 2020 TIME: 10:20 AM PAGER/CONTACT #: [phone] Attending Note: Mckinney findings confirmed. Patient examined. Discussed with the physician licensed loan officer assistant and the patient. Preliminary pathology result consistent with aggressive lymphoma (diffuse large B cell versus Burkitt's). Rapid response to steroid is consistent with this diagnosis. Bilirubin is down to 2.1 today. Proceed with cycle 1 of R-CHOP. Reduce Adriamycin dose by 25%. Reduce vincristine dose by 50%. Cyclophosphamide and prednisone will be given at standard dose. I met with the patient, reviewed the intention of chemotherapy, side effects, and management of the side effects. We specifically reviewed the potential for infusion reactions, immunologic reactions. Immunosuppression, nausea, vomiting, hair loss, cardiac toxicity, neurotoxicity, constipation, among others. Neulasta will be added empirically with cycle 1. Hepatitis C RNA was negative. ID notes indicate no specific therapy required for his history of hepatitis C and treatment. Plan as outlined. Ceferino Atkins MD [facility] PROGRESS HNO ID: [id number] Author: Sharon Guzman Service: General Internal Medicine Author Type: Physician Type: Progress Notes Filed: 07/14/2020 9:12 PM Note Text: INTERNAL MEDICINE PROGRESS NOTE SERVICE DATE: 07/14/2020 ADMITTING PHYSICIAN: Sharon Guzman INTERVAL HISTORY OF PRESENT ILLNESS: Patient awake in bed. Patient states spoke to oncology and want to start chemo today. He states feels ok. No sob. No CP. Current Facility-Administered Medications Medication Dose Route Frequency - polyethylene glycol 3350 17 g packet (MIRALAX, GLYCOLAX) 17 g ORAL DAILY - nystatin 5 mL oral liquid (MYCOSTATIN) 5 mL ORAL BID - cloNIDine HCl 0.1 mg tab(s) (CATAPRES) 0.1 mg ORAL q 8 H - allopurinol 300 mg tab(s) (ZYLOPRIM) 300 mg ORAL DAILY - NaCl 0.9% iv infusion 100 mL/hr INTRAVENOUS CONTINUOUS - perflutren lipid microspheres 1.1 mg/mL 1.3 mL injection (DEFINITY) 1.3 mL INTRAVENOUS DIRECTED PRN - iv contrast (radiology procedure) INTRAVENOUS DIRECTED PRN - sodium chloride 0.9 % (flush) 10 mL (BD POSIFLUSH) 10 mL INTRAVENOUS q 12 H - sodium chloride 0.9 % (flush) 20 mL (BD POSIFLUSH) 20 mL INTRAVENOUS PRN - methylPREDNISolone sod succinate(PF) 120 mg injection (SOLU-Medrol) 120 mg INTRAVENOUS DAILY - pantoprazole DR 20 mg tab(s) (PROTONIX) 20 mg ORAL DAILY (6 AM) - senna 8.6 mg tab(s) (SENOKOT) 8.6 mg ORAL BID - bisacodyl 10 mg suppository (DULCOLAX) 10 mg RECTAL DAILY PRN - magnesium hydroxide 400 mg/5 mL 30 mL (MOM) 30 mL ORAL DAILY PRN - sodium chloride 0.9 % (flush) 10 mL (BD POSIFLUSH) 10 mL INTRAVENOUS q 12 H - sodium chloride 0.9 % (flush) 20 mL (BD POSIFLUSH) 20 mL INTRAVENOUS PRN - docusate sodium 100 mg cap(s) (COLACE) 100 mg ORAL BID - oxyCODONE IR 5 mg tab(s) (ROXICODONE) 5 mg ORAL q 4 H PRN - ondansetron (PF) 4 mg injection (ZOFRAN) 4 mg INTRAVENOUS q 4 H PRN - fentaNYL 50 mcg/mL 25 mcg injection (SUBLIMAZE) 25 mcg INTRAVENOUS q 3 H PRN - nicotine 14 mg/24 hr 1 Patch (NICODERM) 1 Patch TRANSDERMAL DAILY And - nicotine -- REMOVE patch OTHER DAILY And - nicotine - verify patch OTHER q 8 H - atropine 0.5 mg injection 0.5 mg INTRAVENOUS PRN(NO DISPENSE) - amiodarone 150 mg in D5W 100 mL (NEXTERONE) 150 mg INTRAVENOUS PRN(NO DISPENSE) - fluticasone-vilanterol 100-25 mcg/dose 1 Inhalation (BREO ELLIPTA) 1 Inhalation INHALATION DAILY - fentaNYL 25 mcg/hr 1 Patch (DURAGESIC) 1 Patch TRANSDERMAL q 72 HR And - fentaNYL - REMOVE PATCH OTHER q 72 HR And - fentaNYL - VERIFY PATCH OTHER q 8 H Objective PHYSICAL EXAM: Patient Vitals for the past 24 hrs: BP Temp Temp src Pulse Resp SpO2 07/14/20 0808 153/72 36.5 ?C (97.7 ?F) Oral 62 17 96 % 07/14/20 0634 186/81 ? ? (!) 56 ? 97 % 07/14/20 0529 179/84 36.8 ?C (98.3 ?F) Oral (!) 58 18 97 % 07/13/20 2320 187/78 36.8 ?C (98.3 ?F) Oral 62 18 96 % 07/13/20 2200 190/82 ? 07/13/20 1547 155/84 36.6 ?C (97.9 ?F) Oral 61 14 98 % 07/13/20 1200 136/70 36.5 ?C (97.7 ?F) Oral 62 18 98 % 07/13/20 0854 148/72 36.8 ?C (98.2 ?F) Oral (!) 54 14 97 % Body mass index is 20.45 kg/m?. GENERAL: Alert, no distress, cooperative SKIN: Skin color, texture, turgor normal. No rashes or lesions. OROPHARYNX: Lips, mucosa, and tongue are normal.Teeth and gums, normal. Oropharynx normal. NECK: No jugulovenous distention, Supple LUNGS: Lungs clear to auscultation. Good diaphragmatic excursion. CARDIAC: Normal S1 and S2; no rubs, murmurs, or gallops ABDOMEN: Soft, nontender EXTREMITIES: No ulcers NEURO: Cranial nerves II-XII intact PULSES: 2+ radial DATA: Diagnostic tests reviewed for today's visit: Most recent labs and imaging results. Assessment/Plan Active Hospital Problems ??Jaundice [R17] ?Bile duct obstruction * GI consult - IR PTHC with brushing - 07/13 if not improved - Ca19 - WNL, CEA: mildly elevated, LFT's- improving, INR * Onc/hem consult - palliative care - oncology rec: steroids - initiate chemo ? B cell non-Hodgkin's lymphoma * oncology eval - Plan to initiate?R-CHOP 07/14/2020 - canceled d/t improvement on steroids ? Hep C * ID eval - Hep C suppressive therapy for safe admin of chemo - viral load pending ? Elevated blood pressure - ? Secondary to pain - no dx of HTN - monitor ? Nicotine dependence - nicotine patch, info to quit ? Hypokalemia - replete- IV ?x3, recheck - add- on mag ? COPD - BREO ? Plan of care discussed with Dr. Thomas Lebron, CANDLE CUTTER.CANDY SPREADER HELPER July 14, 2020 3:07 PM Attending: Reviewed, discussed with CANDY SPREADER HELPER. Meds, notes, orders reviewed. Agree with mckinney history, findings and plan. Discussed with consultants. Sharon Guzman MD [facility] PROGRESS HNO ID: [id number] Author: Jessenia Sanabria Service: Infectious Disease Author Type: Physician Type: Progress Notes Filed: 07/14/2020 8:02 AM Note Text: Chart reviewed HCV RNA not detected No indication for any HCV therapy ID will sign off Reconsult PRN Jessenia Sanabria MD [phone] [facility] Renal Function Panelon 07-14 Albumin [Mass/Vol] 3.8 g/dL Low 3.9-4.9 [facility] Anion gap [Moles/Vol] 11 mmol/L Normal 9-18 [facility] Calcium [Mass/Vol] 8.7 mg/dL Normal 8.5-10.2 [facility] Chloride [Moles/Vol] 105 mmol/L Normal 97-105 [facility] CO2 [Moles/Vol] 25 mmol/L Normal 22-33 [facility] Creatinine [Mass/Vol] 0.72 mg/dL Low 0.73-1.22 [facility] eGFR- Amer. >60 Normal [facility] GFR/1.73 sq M predicted among non-blacks MDRD (S/P/Bld) [Vol rate/Area] mL/min/{1.73_m2} Normal [facility] Comment on above: Result Comment: eGFR (Estimated GFR) Units of measure: mL/min/1.73 meters squared eGFR is derived from the reexpressed MDRD Study equation using the following parameters: serum creatinine, age, gender and race. The creatinine assay has been calibrated to be traceable to IDMS. An eGFR <60 mL/min/1.73m2 for >3 months is consistent with chronic kidney disease. Refer to KDOQI guidelines for clinical interpretation. In patients with unstable renal function, e.g. those with acute kidney injury, the eGFR may not accurately reflect actual GFR. Glucose [Mass/Vol] 151 mg/dL High 74-99 [facility] Phosphate [Mass/Vol] 3.3 mg/dL Normal 2.7-4.8 [facility] Potassium [Moles/Vol] 3.5 mmol/L Low 3.7-5.1 [facility] Sodium [Moles/Vol] 141 mmol/L Normal 136-144 [facility] Urea nitrogen [Mass/Vol] 13 mg/dL Normal 9-24 [facility] Uric Acidon 07-14-2020 Urate [Mass/Vol] 2.2 mg/dL Low 4.0-8.1 [facility] Urate [Mass/Vol] 2.5 mg/dL Low 4.0-8.1 [facility] Basic Metabolic Panlon 07-13 Anion gap [Moles/Vol] 13 mmol/L Normal 9-18 [facility] Calcium [Mass/Vol] 9.7 mg/dL Normal 8.5-10.2 [facility] Chloride [Moles/Vol] 105 mmol/L Normal 97-105 [facility] CO2 [Moles/Vol] 27 mmol/L Normal 22-33 [facility] Creatinine [Mass/Vol] 0.73 mg/dL Normal 0.73-1.22 [facility] eGFR- Amer. >60 Normal [facility] GFR/1.73 sq M predicted among non-blacks MDRD (S/P/Bld) [Vol rate/Area] mL/min/{1.73_m2} Normal [facility] Comment on above: Result Comment: eGFR (Estimated GFR) Units of measure: mL/min/1.73 meters squared eGFR is derived from the reexpressed MDRD Study equation using the following parameters: serum creatinine, age, gender and race. The creatinine assay has been calibrated to be traceable to IDMS. An eGFR <60 mL/min/1.73m2 for >3 months is consistent with chronic kidney disease. Refer to KDOQI guidelines for clinical interpretation. In patients with unstable renal function, e.g. those with acute kidney injury, the eGFR may not accurately reflect actual GFR. Glucose [Mass/Vol] 126 mg/dL High 74-99 [facility] Potassium [Moles/Vol] 4.1 mmol/L Normal 3.7-5.1 [facility] Sodium [Moles/Vol] 145 mmol/L High 136-144 [facility] Urea nitrogen [Mass/Vol] 15 mg/dL Normal 9-24 [facility] CASE MANAGEMon 07-13-2020 CASE MANAGEM HNO ID: [id number] Author: Renu (Rn) HÉCTOR Gan Service: Case Management Author Type: Registered Nurse Type: Care Mgt Progress Note Filed: 07/13/2020 1:25 PM Note Text: CARE MANAGEMENT PROGRESS NOTE SERVICE DATE: 07/13/2020 SERVICE TIME: 1:23 PM LOS: 4 days Admission Date: 07/09/2020 Bilirubin trending down, pal med consulted for pain control related to patients newly diagnosed non-hodgkin's lymphoma. Patient planned for abdominal ultrasound today. Case management anticipates no needs for discharge at this time, will continue to follow and plan as necessary. SIGNATURE: Renu Gan RN PATIENT NAME: Alejandro Killian DATE: July 13, 2020 TIME: 1:22 PM PAGER/CONTACT #: [phone] [facility] CBC and Differentialon 07-13 Abs Baso 0.04 k/uL Normal <0.11 [facility] Abs [place] 0.75 k/uL Normal <0.87 [facility] Abs Neut 7.81 k/uL High 1.45-7.50 [facility] Absolute nRBC <0.01 Normal <0.01 [facility] Basophils/100 WBC (Bld) 0.4 % Normal [facility] DTYPE Auto Diff Normal [facility] Eosinophils (Bld) [#/Vol] 0.07 10*3/uL Normal <0.46 [facility] Eosinophils/100 WBC (Bld) 0.7 % Normal [facility] Erythrocyte distribution width (RBC) [Ratio] 14.2 % Normal 11.5-15.0 [facility] Hematocrit (Bld) [Volume fraction] 35.6 % Low 39.0-51.0 [facility] Hemoglobin (Bld) [Mass/Vol] 11.9 g/dL Low 13.0-17.0 [facility] Lymphocytes (Bld) [#/Vol] 2.08 10*3/uL Normal 1.00-4.00 [facility] Lymphocytes/100 WBC (Bld) 19.3 % Normal [facility] MCH (RBC) [Entitic mass] 31.5 pG Normal 26.0-34.0 [facility] MCHC (RBC) [Mass/Vol] 33.4 g/dL Normal 30.5-36.0 [facility] MCV (RBC) [Entitic vol] 94.2 fL Normal 80.0-100.0 [facility] Monocytes/100 WBC (Bld) 7.0 % Normal [facility] Neutrophils/100 WBC (Bld) 72.6 % Normal [facility] NRBCs 0.0 /100 WBC Normal 0 [facility] Platelet mean volume (Bld) [Entitic vol] 11.9 fL Normal 9.0-12.7 [facility] Platelets (Bld) [#/Vol] 240 10*3/uL Normal 150-400 [facility] RBC (Bld) [#/Vol] 3.78 10*6/uL Low 4.20-6.00 [facility] WBC (Bld) [#/Vol] 10.75 10*3/uL Normal 3.70-11.00 [facility] CONSULT PROGon 07-13-2020 CONSULT PROG HNO ID: [id number] Author: Swati Zaldivar Service: Infectious Disease Author Type: Physician Type: Consult Progress Note Filed: 07/13/2020 1:44 PM Note Text: INFECTIOUS DISEASE PROGRESS NOTE ID service following patient for history of Hep C Subjective: Feeling well today. No worsening pain. Appetite is good ROS: Denies cough, chest pain, shortness of breath, nasal congestion, headache, sore throat, abdominal pain, diarrhea, or dysuria. Current Facility-Administered Medications Medication Dose Route Frequency - ondansetron (PF) 4 mg injection (ZOFRAN) 4 mg INTRAVENOUS q 4 H PRN - fentaNYL 50 mcg/mL 25 mcg injection (SUBLIMAZE) 25 mcg INTRAVENOUS q 3 H PRN - nicotine 14 mg/24 hr 1 Patch (NICODERM) 1 Patch TRANSDERMAL DAILY And - nicotine -- REMOVE patch OTHER DAILY And - nicotine - verify patch OTHER q 8 H - atropine 0.5 mg injection 0.5 mg INTRAVENOUS PRN(NO DISPENSE) - amiodarone 150 mg in D5W 100 mL (NEXTERONE) 150 mg INTRAVENOUS PRN(NO DISPENSE) - fluticasone-vilanterol 100-25 mcg/dose 1 Inhalation (BREO ELLIPTA) 1 Inhalation INHALATION DAILY - fentaNYL 25 mcg/hr 1 Patch (DURAGESIC) 1 Patch TRANSDERMAL q 72 HR And - fentaNYL - REMOVE PATCH OTHER q 72 HR And - fentaNYL - VERIFY PATCH OTHER q 8 H - cloNIDine HCl 0.1 mg tab(s) (CATAPRES) 0.1 mg ORAL q 8 H - allopurinol 300 mg tab(s) (ZYLOPRIM) 300 mg ORAL DAILY - NaCl 0.9% iv infusion 100 mL/hr INTRAVENOUS CONTINUOUS - perflutren lipid microspheres 1.1 mg/mL 1.3 mL injection (DEFINITY) 1.3 mL INTRAVENOUS DIRECTED PRN - iv contrast (radiology procedure) INTRAVENOUS DIRECTED PRN - sodium chloride 0.9 % (flush) 10 mL (BD POSIFLUSH) 10 mL INTRAVENOUS q 12 H - sodium chloride 0.9 % (flush) 20 mL (BD POSIFLUSH) 20 mL INTRAVENOUS PRN - methylPREDNISolone sod succinate(PF) 120 mg injection (SOLU-Medrol) 120 mg INTRAVENOUS DAILY - nystatin 5 mL oral liquid (MYCOSTATIN) 5 mL ORAL QID - pantoprazole DR 20 mg tab(s) (PROTONIX) 20 mg ORAL DAILY (6 AM) - senna 8.6 mg tab(s) (SENOKOT) 8.6 mg ORAL BID - bisacodyl 10 mg suppository (DULCOLAX) 10 mg RECTAL DAILY PRN - magnesium hydroxide 400 mg/5 mL 30 mL (MOM) 30 mL ORAL DAILY PRN - sodium chloride 0.9 % (flush) 10 mL (BD POSIFLUSH) 10 mL INTRAVENOUS q 12 H - sodium chloride 0.9 % (flush) 20 mL (BD POSIFLUSH) 20 mL INTRAVENOUS PRN - docusate sodium 100 mg cap(s) (COLACE) 100 mg ORAL BID - oxyCODONE IR 5 mg tab(s) (ROXICODONE) 5 mg ORAL q 4 H PRN - polyethylene glycol 3350 17 g packet (MIRALAX, GLYCOLAX) 17 g ORAL DAILY Objective: Physical Exam: Patient Vitals for the past 24 hrs: BP Temp Temp src Pulse Resp SpO2 Height 07/13/20 1200 136/70 36.5 ?C (97.7 ?F) Oral 62 18 98 % ? 07/13/20 0854 148/72 36.8 ?C (98.2 ?F) Oral (!) 54 14 97 % ? 07/13/20 0831 ? 172.7 cm (5' 8) 07/13/20 0358 184/88 36.7 ?C (98.1 ?F) Oral (!) 56 20 97 % ? 07/12/20 2246 189/86 36.7 ?C (98.1 ?F) Oral 61 20 97 % ? General: Awake, alert, no distress, sitting up on the couch Lungs: normal respiratory effort Extremities: No edema or rash; LUE PICC line Labs: WBC Date Value Ref Range Status 07/13/2020 10.75 3.70 - 11.00 k/uL Final Creatinine Date Value Ref Range Status 07/13/2020 0.73 0.73 - 1.22 mg/dL Final 07/13/2020 0.67 (L) 0.73 - 1.22 mg/dL Final 07/12/2020 0.62 (L) 0.73 - 1.22 mg/dL Final 07/11/2020 0.71 (L) 0.73 - 1.22 mg/dL Final Micro: Hep C quantitative pending Imaging: CT C/A/P IMPRESSION: Large central abdominal mass which appears to be invading the liver. ? Associated vascular encasement and intrahepatic biliary dilatation. ?The findings are consistent with the provided diagnosis of lymphoma. Mild hepatic steatosis Assessment: 65yo M with hx of treated Hep C who is pending chemotherapy for aggressive B cell lymphoma ? If he has been adequately treated for Hep C and viral load is undetectable, I do not see a need to give any additional suppressive treatment. Typically we give Hep B suppression in these situations since it can reactivate but I know of no data for Hepatitis C suppression. ? Plan: -f/u Hep C viral load -if Hep C viral load negative, I would start chemotherapy as planned. No role for suppressive Hep C therapy that I know of--Hep B serologies negative -if viral load positive, I would defer to GI team/Hepatology regarding possible concurrent treatment or retreatment of Hep C during chemo -will follow as we await Hep C viral load Swati Zaldivar, DO [employer] [facility] Contact#: [phone] [facility] CONSULT PROG HNO ID: [id number] Author: Izzy Pearson Service: Gastroenterology Author Type: Nurse Practitioner Type: Consult Progress Note Filed: 07/13/2020 11:57 AM Note Text: CONSULT GI PROGRESS NOTES PATIENT NAME: Alejandro Killian SERVICE DATE: 07/13/2020 SERVICE TIME: 10:40 AM CONSULTING SERVICE: GI SEEN IN COLLABORATION WITH: Jaiden Ponce MD ASSESSMENT AND PLAN Abdominal pain?with?obstructive jaundice?due to?large?pancreatic?mass - secondary to 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 Hx HCV -- s/p Epclusa x 12 weeks in [place] earlier in 2019 -- HCV?quantitative RNA pending. -- ID on consult ? SUBJECTIVE INTERVAL HPI: Sitting up in chair in NAD Denies any nausea, vomiting, or abdominal pain. Tolerating PO intake OBJECTIVE BP 148/72 Pulse 54 Temp (Src) 98.2 (Oral) Resp 14 Ht 5' 8 (1.73m) Wt 134 lb 8 oz (61.0kg) SpO2 97% BMI 20.46 kg/(m2). O2 Therapy: Room Air PHYSICAL EXAM: GENERAL: in [facility] SKIN: Skin warm, dry, slight jaundiced NEURO: Alert, Oriented x 3 ABDOMEN: Abdomen soft, non-distended, non-tender ? DATA: Diagnostic tests reviewed for today's visit: CBC, Coags, BMP, Mg, Phos Recent Labs 07/13/20 0507/12/2044707/11/20 0450 WBC 10.75 10.86 7.69 HB 11.9* 11.5* 11.7* HCT 35.6* 34.3* 34.8* PLT 240 233 212 INR -- 1.0 -- NA 140 140 141 K 4.6 3.6* 4.4 CHLOR 102 106* 107* CO2 27 26 23 BUN 12 13 13 CREAT 0.67* 0.62* 0.71* GLUC 91 96 117* CA 7.8* 9.2 9.3 MG -- 1.8 -- P 2.9 2.8 3.5 Liver Function, Amylase, AND Lipase Recent Labs 07/13/20 0543 07/12/2044707/11/20 0502 TPROT 6.1* 5.9* 5.6* ALB 3.9 3.9 3.8* 3.6* ALT 101* 123* 176* AST 32 43* 83* ALKPHOS 163* 178* 211* TBILI 2.5* 2.9* 4.4* SIGNATURE: Izzy Pearson APRN.CANDY SPREADER HELPER [employer]: [phone] DATE: July 13, 2020 TIME: 10:40 AM [facility] CONSULT PROG HNO ID: [id number] Author: Dory Argueta Service: Palliative Care Author Type: Nurse Practitioner Type: Consult Progress Note Filed: 07/13/2020 12:16 PM Note Text: PALLIATIVE MEDICINE CONSULT PROGRESS NOTE To contact the [place] palliative medicine service from 5p - 8a on weekdays and anytime during the weekend, please page [phone] SERVICE DATE: 07/13/2020 PATIENT NAME: Alejandro Killian Subjective Primary Site of Disease/Medical Illness: Probable aggressive B cell Lymphoma Pertinent Medical History:h/o prostate cancer, COPD, Renal Cyst, BPH INTERVAL HPI: reports feeling much better this morning. He rates pain at a 0 out of 10. He reports his appetite is well and his had a bowel movement. REVIEW OF SYSTEMS Modified ESAS ([place] Symptom Assessment Scale): Information Provided By: Patient Pain: None Nausea: None Loss of Appetite: None Constipation: Mild Shortness of Breath: None Drowsiness: None Tiredness: Mild Depression: None Anxiety: None How you feel overall: Good Other problem: None Objective PHYSICAL EXAMINATION Vital Signs: BP 148/72 Pulse (!) 54 Temp 36.8 ?C (98.2 ?F) (Oral) Resp 14 Ht 172.7 cm (5' 8) Wt 61 kg (134 lb 8 oz) SpO2 97% BMI 20.45 kg/m? General Appearance: No apparent distress Skin: Jaundice Resp: Unlabored respiratory effort CV: Regular rate and rhythm GI: Soft Psych: Oriented to: Time, Place, Person and Situation DATA Diagnostic tests and information reviewed for today's visit: Most recent labs and imaging results. Impression/Recommendations Alejandro Prasad is a 65 year old male admitted on 07/09/2020 for jaundice. Care complicated by obstructive jaundice due to new probable diagnosis of Non-Hodgkin's Lymphoma. Palliative Medicine on for pain management. -Highly suspected Non-Hodgkin's Lymphoma with intra-abdominal LNs -Abdominal Pain/Cancer Related Pain -Constipation -BPH -COPD -Jaundice Recommendations: Abdominal Pain/Cancer related pain? -Intra-abdominal LNs -Pain radiates to bilateral flank -Continue fentanyl 25mcg/hr patch -Continue oxycodone IR PRN Constipation -Reports improvement in bowel movements -Continue senna 1 tab BID -Start Miralax daily Care Planning -Palliative medicine to continue to follow -Will arrange palliative follow up once disposition known. Advance Care Planning: Did not discuss Global Assessment: Improving Plan of Care discussed with: Patient and RN SIGNATURE: Dory Argueta APRN.CANDY SPREADER HELPER PAGER/CONTACT #: [phone] [facility] Hepatic Functn Panelon 07-13 Albumin [Mass/Vol] 3.9 g/dL Normal 3.9-4.9 [facility] ALP [Catalytic activity/Vol] 163 U/L High 38-113 [facility] ALT [Catalytic activity/Vol] 101 U/L High 10-54 [facility] AST [Catalytic activity/Vol] 32 U/L Normal 14-40 [facility] Bilirubin [Mass/Vol] 2.5 mg/dL High 0.2-1.3 [facility] Bilirubin,Conjugate d 1.6 mg/dL High <0.2 [facility] Protein [Mass/Vol] 6.1 g/dL Low 6.3-8.0 [facility] NURSING PROGon 07-13-2020 NURSING PROG HNO ID: [id number] Author: Samia (Rn) HÉCTOR Orellana Service: ? Author Type: Registered Nurse Type: Nursing Progress Note Filed: 07/13/2020 9:46 PM Note Text: Nursing Progress Note Patient Name: Alejandro Killian Patient Location: [place] [address] [address]1 Daily Note:Assumed care of pt. A/ox3. Pt denies any pain/needs @ this time. Call light/phone within reach. Will continue to monitor. This note was completed by: Samia Orellana RN [facility] NURSING PROG HNO ID: [id number] Author: Rosa SorensonRn) HÉCTOR Gomez Service: Nursing Author Type: Registered Nurse Type: Nursing Progress Note Filed: 07/13/2020 6:18 PM Note Text: Nursing Progress Note Patient Name: Alejandro Killian Patient Location: -3ST-S08/[id number] Daily Note: 1225 page to ONC regarding patient asking if nystatin could be discontinued 1817 prn oxycodone given for pain This note was completed by: Rosa Gomez RN [facility] NURSING PROG HNO ID: [id number] Author: Janie SorensonRn) HÉCTOR Vega Service: ? Author Type: Registered Nurse Type: Nursing Progress Note Filed: 07/13/2020 5:09 AM Note Text: Nursing Progress Note Patient Name: Alejandro Killian Patient Location: -3ST-S08/YV-[id number] Daily Note: 1910 report received. Pt resting in bed, denies any needs at this time, call light within reach IVF infusing @100ml/hr 0430 BP 184/88 . Paged H/O . Enalaprilat ordered This note was completed by: Janie Vega RN [facility] PROGRESSon 07-13-2020 PROGRESS HNO ID: [id number] Author: Claudia Arguelles Service: Hematology/Oncology Author Type: Physician Ruby Rails Developer Type: Progress Notes Filed: 07/13/2020 11:45 AM Note Text: SERVICE DATE: 07/13/2020 SERVICE TIME: 11:45 AM HEMATOLOGY / ONCOLOGY After 3pm, please page the on-call [phone] Subjective INTERVAL HPI: REVIEW OF SYSTEMS: See HPI Objective Vitals: Temp (24hrs), Av.7 ?C (98.1 ?F), Min:36.7 ?C (98.1 ?F), Max:36.8 ?C (98.2 ?F) BP 148/72 Pulse (!) 54 Temp 36.8 ?C (98.2 ?F) (Oral) Resp 14 Ht 172.7 cm (5' 8) Wt 61 kg (134 lb 8 oz) SpO2 97% BMI 20.45 kg/m? Intake AND Output Intake/Output Summary (Last 24 hours) at 07/13/2020 1137 Last data filed at 07/13/2020 1100 Gross per 24 hour Intake 2960 ml Output ? Net 2960 ml PHYSICAL EXAM GENERAL: No acute distress; alert and oriented x 3 HEENT: Sclera anicteric. No mucositis. No thrush LUNGS: Clear to auscultation; no wheezing, rhonchi or rales HEART: Regular rhythm; normal rate ABDOMEN: Bowel sounds present; soft, non-tender and not distended EXTREMITIES: No edema. Muscular strength equal in all extremities SKIN: No rash or ecchymosis VENOUS ACCESS: No concerns PICC in L arm - clean, dry intact. No erythema or edema MEDICATIONS Current Facility-Administered Medications Medication Dose Route Frequency - polyethylene glycol 3350 17 g packet (MIRALAX, GLYCOLAX) 17 g ORAL DAILY - cloNIDine HCl 0.1 mg tab(s) (CATAPRES) 0.1 mg ORAL q 8 H - allopurinol 300 mg tab(s) (ZYLOPRIM) 300 mg ORAL DAILY - NaCl 0.9% iv infusion 100 mL/hr INTRAVENOUS CONTINUOUS - perflutren lipid microspheres 1.1 mg/mL 1.3 mL injection (DEFINITY) 1.3 mL INTRAVENOUS DIRECTED PRN - iv contrast (radiology procedure) INTRAVENOUS DIRECTED PRN - sodium chloride 0.9 % (flush) 10 mL (BD POSIFLUSH) 10 mL INTRAVENOUS q 12 H - sodium chloride 0.9 % (flush) 20 mL (BD POSIFLUSH) 20 mL INTRAVENOUS PRN - methylPREDNISolone sod succinate(PF) 120 mg injection (SOLU-Medrol) 120 mg INTRAVENOUS DAILY - nystatin 5 mL oral liquid (MYCOSTATIN) 5 mL ORAL QID - pantoprazole DR 20 mg tab(s) (PROTONIX) 20 mg ORAL DAILY (6 AM) - senna 8.6 mg tab(s) (SENOKOT) 8.6 mg ORAL BID - bisacodyl 10 mg suppository (DULCOLAX) 10 mg RECTAL DAILY PRN - magnesium hydroxide 400 mg/5 mL 30 mL (MOM) 30 mL ORAL DAILY PRN - sodium chloride 0.9 % (flush) 10 mL (BD POSIFLUSH) 10 mL INTRAVENOUS q 12 H - sodium chloride 0.9 % (flush) 20 mL (BD POSIFLUSH) 20 mL INTRAVENOUS PRN - docusate sodium 100 mg cap(s) (COLACE) 100 mg ORAL BID - oxyCODONE IR 5 mg tab(s) (ROXICODONE) 5 mg ORAL q 4 H PRN - ondansetron (PF) 4 mg injection (ZOFRAN) 4 mg INTRAVENOUS q 4 H PRN - fentaNYL 50 mcg/mL 25 mcg injection (SUBLIMAZE) 25 mcg INTRAVENOUS q 3 H PRN - nicotine 14 mg/24 hr 1 Patch (NICODERM) 1 Patch TRANSDERMAL DAILY And - nicotine -- REMOVE patch OTHER DAILY And - nicotine - verify patch OTHER q 8 H - atropine 0.5 mg injection 0.5 mg INTRAVENOUS PRN(NO DISPENSE) - amiodarone 150 mg in D5W 100 mL (NEXTERONE) 150 mg INTRAVENOUS PRN(NO DISPENSE) - fluticasone-vilanterol 100-25 mcg/dose 1 Inhalation (BREO ELLIPTA) 1 Inhalation INHALATION DAILY - fentaNYL 25 mcg/hr 1 Patch (DURAGESIC) 1 Patch TRANSDERMAL q 72 HR And - fentaNYL - REMOVE PATCH OTHER q 72 HR And - fentaNYL - VERIFY PATCH OTHER q 8 H LABORATORY DATA Recent Labs 07/13/20 0543 07/12/20 0448 07/11/20 0450 WBC 10.75 10.86 7.69 RBC 3.78* 3.63* 3.71* HB 11.9* 11.5* 11.7* HCT 35.6* 34.3* 34.8* PLT 240 233 212 MCV 94.2 94.5 93.8 MCH 31.5 31.7 31.5 MCHC 33.4 33.5 33.6 RDWCV 14.2 14.4 14.1 MPV 11.9 11.8 11.3 NEUTP 72.6 74.8 81.6 ABSNEUT 7.81* 8.14* 6.27 LYMPHP 19.3 17.8 11.8 MONOP 7.0 6.4 6.4 EODINP 0.7 0.6 0.1 BASOP 0.4 0.4 0.1 ABSMONO 0.75 0.69 0.49 ABSEOSIN 0.07 0.06 <0.03 ABSBASO 0.04 0.04 <0.03 Recent Labs 07/13/20 0543 07/12/20 0448 07/11/20 0502 07/11/20 0450 NA 140 140 -- 141 K 4.6 3.6* -- 4.4 CHLOR 102 106* -- 107* CO2 27 26 -- 23 CREAT 0.67* 0.62* -- 0.71* BUN 12 13 -- 13 GLUC 91 96 -- 117* P 2.9 2.8 -- 3.5 TPROT 6.1* 5.9* 5.6* -- ALB 3.9 3.9 3.8* 3.6* -- MG -- 1.8 -- -- CA 7.8* 9.2 -- 9.3 ALKPHOS 163* 178* 211* -- TBILI 2.5* 2.9* 4.4* -- AST 32 43* 83* -- ALT 101* 123* 176* -- URICACID 2.4* 3.0* -- 3.9* PTSEC -- 10.9 -- -- INR -- 1.0 -- -- Hep C pending BMbx pending Lines, Drains, and Airways Line Central Line Single Lumen 07/10/20 1714 Peripherally Inserted (PICC) Left Arm 4.0 Citizen [place] 2 days DATA: Diagnostic tests reviewed for today's visit: Most recent labs and imaging US RUQ 07/13/2020 IMPRESSION: Minimal to no intrahepatic biliary ductal dilation compared to the prior CT. Again seen hepatic hilar/periportal soft tissue mass/lymphoma. Gallbladder sludge. ECHO 07/11/2020 - Exam indication: Cardiotoxicity-Baseline evaluation for patient about to undergo ?therapy with cardiotoxic agents - The left ventricle is normal in size. Left ventricular systolic function is normal. EF = 57 ? 5% (3D) Normal left ventricular diastolic function. - The right ventricle is normal in size. Right ventricular systolic function is normal. - There is no patent foramen ovale as detected by Doppler. - No significant valvular abnormalities - The patient has not had a prior [facility] echocardiographic exam for comparison. 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 Ackerman, and discussed. 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 Path was sent out for special consult - awaiting final results. - Once results are back, we will need to get path/bx sent to [facility] for second review - Bmbx pending - CT CAP, ECHO - done. EF 57% - CBC and LFTs daily. Will get BMP, Uric Acid and Phos BID - IVFs and monitor for TLS once start treatment - Started Allopurinol 300mg daily, Solumderol 120mg daily IV (including today), nystatin and a PPI - Will hold off on biliary drain - IR biliary duct stent/drain for now. TBili down to 2.4. RUQ US on 07/13 with improved/no dilation - Will initiate R-CHOP tomorrow, 07/14/2020 if still doing well - Monitor labs and patient closely, especially for TLS once chemotherapy initiates. Elevated liver transaminase level - Related to enlarged LN and biliary obstruction - Improved Tbili and LFTs - RUQ US today with improvement - Monitor labs daily - if worsening bilirubin will need IR stent placement - Avoid Tylenol for now Jaundice Related to elevated bilirubin Malignant neoplasm of prostate (HCC) In remission per patient History of radiation, surgery and lupron injections History of hepatitis C -Consult ID regarding hepatitis C and impending chemotherapy. - Hep C Quant RNA - pending Pain -Related to lymphoma - Palliative consulted - appreciate recommendations - Improved Medication and Non-Pharmacologic VTE Prophylaxis/Anticoagulants 07/09/202114 pneumatic compression stockings ([place], [place]) 07/09/202114 activity - mobilize patient ([place]) SIGNATURE: Claudia Arguelles PATIENT NAME: Alejandro Killian DATE: July 13, 2020 TIME: 11:45 AM PAGER/CONTACT #: [phone] [facility] PROGRESS HNO ID: [id number] Author: Sharon Guzman Service: General Internal Medicine Author Type: Physician Type: Progress Notes Filed: 07/13/2020 8:42 PM Note Text: INTERNAL MEDICINE PROGRESS NOTE SERVICE DATE: 07/13/2020 ADMITTING PHYSICIAN: Sharon Guzman INTERVAL HISTORY OF PRESENT ILLNESS: Patient awake in bed. He states is feeling better. Await pending labs. No sob. No Cp. He denies pain. Current Facility-Administered Medications Medication Dose Route Frequency - cloNIDine HCl 0.1 mg tab(s) (CATAPRES) 0.1 mg ORAL q 8 H - allopurinol 300 mg tab(s) (ZYLOPRIM) 300 mg ORAL DAILY - NaCl 0.9% iv infusion 100 mL/hr INTRAVENOUS CONTINUOUS - perflutren lipid microspheres 1.1 mg/mL 1.3 mL injection (DEFINITY) 1.3 mL INTRAVENOUS DIRECTED PRN - iv contrast (radiology procedure) INTRAVENOUS DIRECTED PRN - sodium chloride 0.9 % (flush) 10 mL (BD POSIFLUSH) 10 mL INTRAVENOUS q 12 H - sodium chloride 0.9 % (flush) 20 mL (BD POSIFLUSH) 20 mL INTRAVENOUS PRN - methylPREDNISolone sod succinate(PF) 120 mg injection (SOLU-Medrol) 120 mg INTRAVENOUS DAILY - nystatin 5 mL oral liquid (MYCOSTATIN) 5 mL ORAL QID - pantoprazole DR 20 mg tab(s) (PROTONIX) 20 mg ORAL DAILY (6 AM) - senna 8.6 mg tab(s) (SENOKOT) 8.6 mg ORAL BID - bisacodyl 10 mg suppository (DULCOLAX) 10 mg RECTAL DAILY PRN - magnesium hydroxide 400 mg/5 mL 30 mL (MOM) 30 mL ORAL DAILY PRN - sodium chloride 0.9 % (flush) 10 mL (BD POSIFLUSH) 10 mL INTRAVENOUS q 12 H - sodium chloride 0.9 % (flush) 20 mL (BD POSIFLUSH) 20 mL INTRAVENOUS PRN - docusate sodium 100 mg cap(s) (COLACE) 100 mg ORAL BID - oxyCODONE IR 5 mg tab(s) (ROXICODONE) 5 mg ORAL q 4 H PRN - ondansetron (PF) 4 mg injection (ZOFRAN) 4 mg INTRAVENOUS q 4 H PRN - fentaNYL 50 mcg/mL 25 mcg injection (SUBLIMAZE) 25 mcg INTRAVENOUS q 3 H PRN - nicotine 14 mg/24 hr 1 Patch (NICODERM) 1 Patch TRANSDERMAL DAILY And - nicotine -- REMOVE patch OTHER DAILY And - nicotine - verify patch OTHER q 8 H - atropine 0.5 mg injection 0.5 mg INTRAVENOUS PRN(NO DISPENSE) - amiodarone 150 mg in D5W 100 mL (NEXTERONE) 150 mg INTRAVENOUS PRN(NO DISPENSE) - fluticasone-vilanterol 100-25 mcg/dose 1 Inhalation (BREO ELLIPTA) 1 Inhalation INHALATION DAILY - fentaNYL 25 mcg/hr 1 Patch (DURAGESIC) 1 Patch TRANSDERMAL q 72 HR And - fentaNYL - REMOVE PATCH OTHER q 72 HR And - fentaNYL - VERIFY PATCH OTHER q 8 H Objective PHYSICAL EXAM: Patient Vitals for the past 24 hrs: BP Temp Temp src Pulse Resp SpO2 Height 07/13/20 0854 148/72 36.8 ?C (98.2 ?F) Oral (!) 54 14 97 % ? 07/13/20 0831 ? 172.7 cm (5' 8) 07/13/20 0358 184/88 36.7 ?C (98.1 ?F) Oral (!) 56 20 97 % ? 07/12/20 2246 189/86 36.7 ?C (98.1 ?F) Oral 61 20 97 % ? 07/12/20 1223 141/78 ? Oral 80 16 95 % ? 07/12/20 0927 143/67 36.6 ?C (97.8 ?F) Axillary 72 20 96 % ? Body mass index is 20.45 kg/m?. GENERAL: Alert, Cooperative SKIN: no rash OROPHARYNX: Lips, mucosa, and tongue are normal.Teeth and gums, normal. Oropharynx normal. NECK: No jugulovenous distention LUNGS: CTA CARDIAC: Normal S1 and S2; no rubs, murmurs, or gallops ABDOMEN: Soft, nontender EXTREMITIES: No ulcers NEURO: Cranial nerves II-XII intact PULSES: 2+ radial DATA: Diagnostic tests reviewed for today's visit: Most recent labs and imaging results. Assessment/Plan Active Hospital Problems Jaundice [R17] ?Bile duct obstruction * GI consult - IR PTHC with brushing - 07/13 if not improved - Ca19, CEA, LFT's, INR * Onc/hem consult - palliative care - oncology rec: steriods, low-dose cyclophosphamide - to hopefully open up biliary obstruction B cell non-Hodgkin's lymphoma * oncology eval - Plan to initiate R-CHOP tomorrow 07/14/2020 if doing well Hep C * ID eval - Hep C suppressive therapy for safe admin of chemo - viral load pending ? Elevated blood pressure - ? Secondary to pain - no dx of HTN - monitor ? Nicotine dependence - nicotine patch, info to quit ? Hypokalemia - replete- IV x3, recheck - add- on mag ? COPD - BREO ? Plan of care discussed with Dr. Thomas Lebrno, CANDLE CUTTER.CANDY SPREADER HELPER July 13, 2020 3:33 PM Attending: Reviewed, discussed with CANDY SPREADER HELPER. Meds, notes, orders reviewed. Agree with [facility] history, findings and plan. Discussed with consultants. Sharon Guzman MD [facility] Renal Function Panelon 07-13 Anion gap [Moles/Vol] 11 mmol/L Normal 9-18 [facility] Calcium [Mass/Vol] 7.8 mg/dL Low 8.5-10.2 [facility] Chloride [Moles/Vol] 102 mmol/L Normal 97-105 [facility] CO2 [Moles/Vol] 27 mmol/L Normal 22-33 [facility] Creatinine [Mass/Vol] 0.67 mg/dL Low 0.73-1.22 [facility] eGFR- Amer. >60 Normal [facility] GFR/1.73 sq M predicted among non-blacks MDRD (S/P/Bld) [Vol rate/Area] mL/min/{1.73_m2} Normal [facility] Comment on above: Result Comment: eGFR (Estimated GFR) Units of measure: mL/min/1.73 meters squared eGFR is derived from the reexpressed MDRD Study equation using the following parameters: serum creatinine, age, gender and race. The creatinine assay has been calibrated to be traceable to IDMS. An eGFR <60 mL/min/1.73m2 for >3 months is consistent with chronic kidney disease. Refer to KDOQI guidelines for clinical interpretation. In patients with unstable renal function, e.g. those with acute kidney injury, the eGFR may not accurately reflect actual GFR. Glucose [Mass/Vol] 91 mg/dL Normal 74-99 [facility] Phosphate [Mass/Vol] 2.9 mg/dL Normal 2.7-4.8 [facility] Potassium [Moles/Vol] 4.6 mmol/L Normal 3.7-5.1 [facility] Sodium [Moles/Vol] 140 mmol/L Normal 136-144 [facility] Urea nitrogen [Mass/Vol] 12 mg/dL Normal 9-24 [facility] US ABD RIGHT UPPER QUADRANTo n 07-13-2020 US ABD RIGHT UPPER QUADRANT * * *Final Report* * * DATE OF EXAM: Jul 13 2020 10:31AM [facility]32 - US ABD RIGHT UPPER QUADRANT / PROCEDURE REASON: Abn liver function tests (LFTs) * * * * Physician Interpretation * * * * RESULT: EXAMINATION: RIGHT UPPER QUADRANT ULTRASOUND CLINICAL HISTORY: Abnormal liver function testing, presumed lymphoma resulting in biliary obstruction. TECHNIQUE: Sonography of the right upper quadrant was performed. Images were obtained and stored in a permanent archive. MQ: [id number] COMPARISON: CT of 07/10/2020 RESULT: Pancreas: Obscured, prominent soft tissue centered at the hepatic hilum measures 11.4 x 4.2 x 10.1 cm. Portions obscured: tail Liver: Echotexture: Normal, homogeneous. Echogenicity: Normal Surface contour: Smooth Lesions: None. Biliary: No intrahepatic biliary duct dilation. CBD: 0.3 cm at the hilum. Gallbladder: Normal caliber -Contents: Sludge present -Wall: Normal -Other: No pericholecystic fluid. Right Kidney: No hydronephrosis. Ascites: None. IMPRESSION: Minimal to no intrahepatic biliary ductal dilation compared to the prior CT. Again seen hepatic hilar/periportal soft tissue mass/lymphoma. Gallbladder sludge. Transcribed Using Voice Recognition Transcribe Date/Time: Jul 13 2020 10:36A Dictated by: PHILLIP KELLY MD This examination was interpreted and the report reviewed and electronically signed by: PHILLIP KELLY MD on Jul 13 2020 10:44AM EST [id number] Normal [facility] Uric Acidon 07-13-2020 Urate [Mass/Vol] 2.4 mg/dL Low 4.0-8.1 [facility] CBC and Differentialon 07-12 Abs Baso 0.04 k/uL Normal <0.11 [facility] Abs [place] 0.69 k/uL Normal <0.87 [facility] Abs Neut 8.14 k/uL High 1.45-7.50 [facility] Absolute nRBC <0.01 Normal <0.01 [facility] Basophils/100 WBC (Bld) 0.4 % Normal [facility] DTYPE Auto Diff Normal [facility] Eosinophils (Bld) [#/Vol] 0.06 10*3/uL Normal <0.46 [facility] Eosinophils/100 WBC (Bld) 0.6 % Normal [facility] Erythrocyte distribution width (RBC) [Ratio] 14.4 % Normal 11.5-15.0 [facility] Hematocrit (Bld) [Volume fraction] 34.3 % Low 39.0-51.0 [facility] Hemoglobin (Bld) [Mass/Vol] 11.5 g/dL Low 13.0-17.0 [facility] Lymphocytes (Bld) [#/Vol] 1.93 10*3/uL Normal 1.00-4.00 [facility] Lymphocytes/100 WBC (Bld) 17.8 % Normal [facility] MCH (RBC) [Entitic mass] 31.7 pG Normal 26.0-34.0 [facility] MCHC (RBC) [Mass/Vol] 33.5 g/dL Normal 30.5-36.0 [facility] MCV (RBC) [Entitic vol] 94.5 fL Normal 80.0-100.0 [facility] Monocytes/100 WBC (Bld) 6.4 % Normal [facility] Neutrophils/100 WBC (Bld) 74.8 % Normal [facility] NRBCs 0.0 /100 WBC Normal 0 [facility] Platelet mean volume (Bld) [Entitic vol] 11.8 fL Normal 9.0-12.7 [facility] Platelets (Bld) [#/Vol] 233 10*3/uL Normal 150-400 [facility] RBC (Bld) [#/Vol] 3.63 10*6/uL Low 4.20-6.00 [facility] WBC (Bld) [#/Vol] 10.86 10*3/uL Normal 3.70-11.00 [facility] CONSULT PROGon 07-12-2020 CONSULT PROG HNO ID: [id number] Author: Ceferino Atkins Service: Hematology/Oncology Author Type: Physician Type: Consult Progress Note Filed: 07/12/2020 11:01 AM Note Text: CONSULT PROGRESS NOTES PATIENT NAME: Alejandro Killian ASSESSMENT AND PLAN 1. 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 Hepatitis C, treated with Epclusa x 12 weeks [place] [address] Jenkins in [place] 4. History of prostate cancer ? LFT's improving: Bilirubin down to < 3 and transaminases also improving with solumedrol alone Pain improving Uric acid < 4. No overt Tumor lysis ? Plan: 1. Continue solumdrol, nystatin, protonix 2. Awaiting Hep C quantitative eval 3. Hold off on cytoxan today given significant improvement with steroids alone 4. Repeat CBC, RFP, UA, and HFP tomorrow 5. If continued improvement of jaundice / biliary obstruction, anticipate RCHOP on Mon or 6. He may not need biliary decompression given signficant response with steroid Subjective Feeling better Less pain + constipation + insomnia MEDICATIONS: Current Facility-Administered Medications Medication Dose Route Frequency - ondansetron (PF) 4 mg injection (ZOFRAN) 4 mg INTRAVENOUS q 4 H PRN - fentaNYL 50 mcg/mL 25 mcg injection (SUBLIMAZE) 25 mcg INTRAVENOUS q 3 H PRN - nicotine 14 mg/24 hr 1 Patch (NICODERM) 1 Patch TRANSDERMAL DAILY And - nicotine -- REMOVE patch OTHER DAILY And - nicotine - verify patch OTHER q 8 H - atropine 0.5 mg injection 0.5 mg INTRAVENOUS PRN(NO DISPENSE) - amiodarone 150 mg in D5W 100 mL (NEXTERONE) 150 mg INTRAVENOUS PRN(NO DISPENSE) - fluticasone-vilanterol 100-25 mcg/dose 1 Inhalation (BREO ELLIPTA) 1 Inhalation INHALATION DAILY - fentaNYL 25 mcg/hr 1 Patch (DURAGESIC) 1 Patch TRANSDERMAL q 72 HR And - fentaNYL - REMOVE PATCH OTHER q 72 HR And - fentaNYL - VERIFY PATCH OTHER q 8 H - cloNIDine HCl 0.1 mg tab(s) (CATAPRES) 0.1 mg ORAL q 8 H - allopurinol 300 mg tab(s) (ZYLOPRIM) 300 mg ORAL DAILY - NaCl 0.9% iv infusion 100 mL/hr INTRAVENOUS CONTINUOUS - perflutren lipid microspheres 1.1 mg/mL 1.3 mL injection (DEFINITY) 1.3 mL INTRAVENOUS DIRECTED PRN - iv contrast (radiology procedure) INTRAVENOUS DIRECTED PRN - sodium chloride 0.9 % (flush) 10 mL (BD POSIFLUSH) 10 mL INTRAVENOUS q 12 H - sodium chloride 0.9 % (flush) 20 mL (BD POSIFLUSH) 20 mL INTRAVENOUS PRN - methylPREDNISolone sod succinate(PF) 120 mg injection (SOLU-Medrol) 120 mg INTRAVENOUS DAILY - nystatin 5 mL oral liquid (MYCOSTATIN) 5 mL ORAL QID - pantoprazole DR 20 mg tab(s) (PROTONIX) 20 mg ORAL DAILY (6 AM) - senna 8.6 mg tab(s) (SENOKOT) 8.6 mg ORAL BID - bisacodyl 10 mg suppository (DULCOLAX) 10 mg RECTAL DAILY PRN - magnesium hydroxide 400 mg/5 mL 30 mL (MOM) 30 mL ORAL DAILY PRN - sodium chloride 0.9 % (flush) 10 mL (BD POSIFLUSH) 10 mL INTRAVENOUS q 12 H - sodium chloride 0.9 % (flush) 20 mL (BD POSIFLUSH) 20 mL INTRAVENOUS PRN - docusate sodium 100 mg cap(s) (COLACE) 100 mg ORAL BID - oxyCODONE IR 5 mg tab(s) (ROXICODONE) 5 mg ORAL q 4 H PRN OBJECTIVE PHYSICAL EXAM: BP 143/67 Pulse 72 Temp (Src) 97.8 (Axillary) Resp 20 Wt 134 lb 8 oz (61.0kg) SpO2 96% O2 Therapy: Room Air Body surface area is 1.7 meters squared. Mild scleral icterus. Jaundiced skin is present but improved Skin: Skin color, texture, turgor normal. No rashes or lesions. HEENT: PERRLA, EOMI, oral cavity and pharynx clear Neck: supple, no adenopathy; thyroid symmetric, normal size, no bruits. Nodes: No cervical, supraclavicular, axillary, inguinal adenopathy. Lungs: clear to ausculation and percussion bilaterally Heart: negative. RRR without murmur, gallop, or rubs. No ectopy. Abdomen: Abdomen soft, non-tender. Bowel sounds normal. No masses, organomegaly Extremities: Negative vinayak's. No cords. No deformities, edema, or skin discoloration. Good capillary refill. DATA: Echo 07/11/20 CONCLUSIONS: - Exam indication: Cardiotoxicity-Baseline evaluation for patient about to undergo ?therapy with cardiotoxic agents - The left ventricle is normal in size. Left ventricular systolic function is normal. EF = 57 ? 5% (3D) Normal left ventricular diastolic function. - The right ventricle is normal in size. Right ventricular systolic function is normal. - There is no patent foramen ovale as detected by Doppler. - No significant valvular abnormalities - The patient has not had a prior CC echocardiographic exam for comparison. ? Component Latest Ref Rng AND Units 07/12/2020 WBC 3.70 - 11.00 k/uL 10.86 RBC 4.20 - 6.00 m/uL 3.63 (L) Hemoglobin 13.0 - 17.0 g/dL 11.5 (L) Hematocrit 39.0 - 51.0 % 34.3 (L) MCV 80.0 - 100.0 fL 94.5 MCH 26.0 - 34.0 pG 31.7 MCHC 30.5 - 36.0 g/dL 33.5 RDW-CV 11.5 - 15.0 % 14.4 Platelet Count 150 - 400 k/uL 233 MPV 9.0 - 12.7 fL 11.8 Neut% % 74.8 Abs Neut (ANC) 1.45 - 7.50 k/uL 8.14 (H) Lymph% % 17.8 Abs Lymph 1.00 - 4.00 k/uL 1.93 Component Latest Ref Rng AND Units 07/12/2020 Protein, Total 6.3 - 8.0 g/dL 5.9 (L) Albumin 3.9 - 4.9 g/dL 3.8 (L) Calcium 8.5 - 10.2 mg/dL 9.2 Bilirubin, Total 0.2 - 1.3 mg/dL 2.9 (H) Alkaline Phosphatase 38 - 113 U/L 178 (H) AST 14 - 40 U/L 43 (H) Glucose 74 - 99 mg/dL 96 BUN 9 - 24 mg/dL 13 Creatinine 0.73 - 1.22 mg/dL 0.62 (L) Sodium 136 - 144 mmol/L 140 Potassium 3.7 - 5.1 mmol/L 3.6 (L) Chloride 97 - 105 mmol/L 106 (H) CO2 22 - 33 mmol/L 26 Anion Gap 9 - 18 mmol/L 8 (L) ALT 10 - 54 U/L 123 (H) Component Latest Ref Rng AND Units 07/12/2020 PT Sec 9.7 - 13.0 sec 10.9 PT INR 0.9 - 1.3 1.0 pH, Urine 5.0 - 8.0 Fibrinogen 200 - 400 mg/dL 271 Magnesium 1.7 - 2.3 mg/dL 1.8 Uric Acid 4.0 - 8.1 mg/dL 3.0 (L) Phosphorus 2.7 - 4.8 mg/dL 2.8 SIGNATURE: Ceferino Atkins MD [facility] CONSULT PROG HNO ID: [id number] Author: Noemy Flores Service: Gastroenterology Author Type: Nurse Practitioner Type: Consult Progress Note Filed: 07/12/2020 11:42 AM Note Text: CONSULT GI PROGRESS NOTES PATIENT NAME: Alejandro [facility] SERVICE DATE: 07/12/2020 SERVICE TIME: 10:04 AM CONSULTING SERVICE: GI ASSESSMENT AND PLAN -Case discussed with Dr. Jaiden Ponce ? 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 Ponce > [facility] as patient has improved significantly on steroids. Hx HCV -- s/p Epclusa x 12 weeks in [place] earlier in 2019 --HCV quantitative pending. --ID on consult ? SUBJECTIVE INTERVAL HPI: Tired but otherwise feeling well. Reports did not sleep well last night. Denies abdominal pain and nausea. Had several bowel movements yesterday, none today. No bleeding. OBJECTIVE BP 143/67 Pulse 72 Temp (Src) 98.1 (Oral) Resp 20 Wt 134 lb 8 oz (61.0kg) SpO2 96% O2 Therapy: Room Air PHYSICAL EXAM: GENERAL: in NAD SKIN: Skin warm, dry, mildly jaundiced NEURO: Alert, Oriented x 3 ABDOMEN: Abdomen soft, non-distended, non-tender DATA: Diagnostic tests reviewed for today's visit: CBC, Coags, BMP, Mg, Phos Recent Labs 07/12/2044707/11/20 0450 07/10/20 0542 07/09/202121 WBC 10.86 7.69 6.44 7.90 HB 11.5* 11.7* 11.6* 13.4 HCT 34.3* 34.8* 34.2* 39.4 PLT 233 212 187 237 INR 1.0 -- 1.1 1.0 NA 140 141 137 139 K 3.6* 4.4 2.5* 3.2* CHLOR 106* 107* 98 100 CO2 26 23 24 27 BUN 13 13 12 12 CREAT 0.62* 0.71* 0.91 0.95 GLUC 96 117* 315* 99 CA 9.2 9.3 9.1 10.8* MG 1.8 -- -- -- P 2.8 3.5 -- -- Liver Function, Amylase, AND Lipase Recent Labs 07/12/2044707/11/20 0502 07/10/20 0542 TPROT 5.9* 5.6* 5.8* ALB 3.8* 3.6* 3.6* ALT 123* 176* 182* AST 43* 83* 115* ALKPHOS 178* 211* 220* TBILI 2.9* 4.4* 8.4* SIGNATURE: Noemy Flores APRN.[employer] DATE: July 12, 2020 TIME: 10:04 AM Normal [facility] Comp Metabolic Panelon 07-12 Albumin [Mass/Vol] 3.8 g/dL Low 3.9-4.9 [facility] ALP [Catalytic activity/Vol] 178 U/L High 38-113 [facility] ALT [Catalytic activity/Vol] 123 U/L High 10-54 [facility] Anion gap [Moles/Vol] 8 mmol/L Low 9-18 [facility] AST [Catalytic activity/Vol] 43 U/L High 14-40 [facility] Bilirubin [Mass/Vol] 2.9 mg/dL High 0.2-1.3 [facility] Calcium [Mass/Vol] 9.2 mg/dL Normal 8.5-10.2 [facility] Chloride [Moles/Vol] 106 mmol/L High 97-105 [facility] CO2 [Moles/Vol] 26 mmol/L Normal 22-33 [facility] Creatinine [Mass/Vol] 0.62 mg/dL Low 0.73-1.22 [facility] eGFR- Amer. >60 Normal [facility] GFR/1.73 sq M predicted among non-blacks MDRD (S/P/Bld) [Vol rate/Area] mL/min/{1.73_m2} Normal [facility] Comment on above: Result Comment: eGFR (Estimated GFR) Units of measure: mL/min/1.73 meters squared eGFR is derived from the reexpressed MDRD Study equation using the following parameters: serum creatinine, age, gender and race. The creatinine assay has been calibrated to be traceable to IDMS. An eGFR <60 mL/min/1.73m2 for >3 months is consistent with chronic kidney disease. Refer to KDOQI guidelines for clinical interpretation. In patients with unstable renal function, e.g. those with acute kidney injury, the eGFR may not accurately reflect actual GFR. Glucose [Mass/Vol] 96 mg/dL Normal 74-99 [facility] Potassium [Moles/Vol] 3.6 mmol/L Low 3.7-5.1 [facility] Protein [Mass/Vol] 5.9 g/dL Low 6.3-8.0 [facility] Sodium [Moles/Vol] 140 mmol/L Normal 136-144 [facility] Urea nitrogen [Mass/Vol] 13 mg/dL Normal 9-24 [facility] Fibrinogenon 07-12-2020 Fibrinogen 271 mg/dL Normal 200-400 [facility] Magnesiumon 07-12-2020 Magnesium [Mass/Vol] 1.8 mg/dL Normal 1.7-2.3 [facility] NURSING PROGon 07-12-2020 NURSING PROG HNO ID: [id number] Author: Sarita (Rn) HÉCTOR Guzman Service: Nursing Author Type: Registered Nurse Type: Nursing Progress Note Filed: 07/12/2020 9:30 AM Note Text: Nursing Progress Note Patient Name: Alejandro Killian Patient Location: [place] [id number] Daily Note: 0855 Assessment as charted. Pt denies pain, nausea. States he just feels tired. Tolerated breakfast. Call light in reach. This note was completed by: Sarita Guzman RN [facility] NURSING PROG HNO ID: [id number] Author: Janie (Rn) HÉCTOR Vega Service: ? Author Type: Registered Nurse Type: Nursing Progress Note Filed: 07/12/2020 12:35 AM Note Text: Nursing Progress Note Patient Name: Alejandro Killian Patient Location: [place] [id number] Daily Note: 1910 report received. Pt resting in bed, denies any needs at this time. IVF infusing @ 100ml/hr This note was completed by: Janie Vega RN [facility] PROGRESSon 07-12-2020 PROGRESS HNO ID: [id number] Author: Mario Yanes Service: General Internal Medicine Author Type: Physician Type: Progress Notes Filed: 07/12/2020 9:59 PM Note Text: Internal Medicine Daily Progress Note Patient Name: Alejandro Killian Location: [place] [id number] [id number] [facility] Admission Date: 07/09/2020 6:40 PM Hospital Day: 3 Date of Service: July 12, 2020 Time of Service: 12:12 PM INTERVAL HISTORY: Alejandro Killian reports that he is doing ok; feels improved. No new symptoms. No new problems overnight. No acute issues per staff interpreter. VITALS: Temp (24hrs), Av.6 ?C (97.8 ?F), Min:36.4 ?C (97.5 ?F), Max:36.7 ?C (98.1 ?F) BP 143/67 Pulse 72 Temp 36.6 ?C (97.8 ?F) (Axillary) Resp 20 Wt 61 kg (134 lb 8 oz) SpO2 96% BMI 21.07 kg/m? Intake/Output Summary (Last 24 hours) at 07/12/2020 0659 Last data filed at 07/12/2020 0600 Gross per 24 hour Intake 3120 ml Output ? Net 3120 ml MEDICATIONS Current Facility-Administered Medications Medication Dose Route Frequency - ondansetron (PF) 4 mg injection (ZOFRAN) 4 mg INTRAVENOUS q 4 H PRN - fentaNYL 50 mcg/mL 25 mcg injection (SUBLIMAZE) 25 mcg INTRAVENOUS q 3 H PRN - nicotine 14 mg/24 hr 1 Patch (NICODERM) 1 Patch TRANSDERMAL DAILY And - nicotine -- REMOVE patch OTHER DAILY And - nicotine - verify patch OTHER q 8 H - atropine 0.5 mg injection 0.5 mg INTRAVENOUS PRN(NO DISPENSE) - amiodarone 150 mg in D5W 100 mL (NEXTERONE) 150 mg INTRAVENOUS PRN(NO DISPENSE) - fluticasone-vilanterol 100-25 mcg/dose 1 Inhalation (BREO ELLIPTA) 1 Inhalation INHALATION DAILY - fentaNYL 25 mcg/hr 1 Patch (DURAGESIC) 1 Patch TRANSDERMAL q 72 HR And - fentaNYL - REMOVE PATCH OTHER q 72 HR And - fentaNYL - VERIFY PATCH OTHER q 8 H - cloNIDine HCl 0.1 mg tab(s) (CATAPRES) 0.1 mg ORAL q 8 H - allopurinol 300 mg tab(s) (ZYLOPRIM) 300 mg ORAL DAILY - NaCl 0.9% iv infusion 100 mL/hr INTRAVENOUS CONTINUOUS - perflutren lipid microspheres 1.1 mg/mL 1.3 mL injection (DEFINITY) 1.3 mL INTRAVENOUS DIRECTED PRN - iv contrast (radiology procedure) INTRAVENOUS DIRECTED PRN - sodium chloride 0.9 % (flush) 10 mL (BD POSIFLUSH) 10 mL INTRAVENOUS q 12 H - sodium chloride 0.9 % (flush) 20 mL (BD POSIFLUSH) 20 mL INTRAVENOUS PRN - methylPREDNISolone sod succinate(PF) 120 mg injection (SOLU-Medrol) 120 mg INTRAVENOUS DAILY - nystatin 5 mL oral liquid (MYCOSTATIN) 5 mL ORAL QID - pantoprazole DR 20 mg tab(s) (PROTONIX) 20 mg ORAL DAILY (6 AM) - senna 8.6 mg tab(s) (SENOKOT) 8.6 mg ORAL BID - bisacodyl 10 mg suppository (DULCOLAX) 10 mg RECTAL DAILY PRN - magnesium hydroxide 400 mg/5 mL 30 mL (MOM) 30 mL ORAL DAILY PRN - sodium chloride 0.9 % (flush) 10 mL (BD POSIFLUSH) 10 mL INTRAVENOUS q 12 H - sodium chloride 0.9 % (flush) 20 mL (BD POSIFLUSH) 20 mL INTRAVENOUS PRN - docusate sodium 100 mg cap(s) (COLACE) 100 mg ORAL BID - oxyCODONE IR 5 mg tab(s) (ROXICODONE) 5 mg ORAL q 4 H PRN LABORATORY DATA CBC, Coags, BMP, Mg, Phos Recent Labs 07/12/20 0448 07/11/20 0450 07/10/20 0542 WBC 10.86 7.69 6.44 HB 11.5* 11.7* 11.6* HCT 34.3* 34.8* 34.2* PLT 233 212 187 NA 140 141 137 K 3.6* 4.4 2.5* CHLOR 106* 107* 98 CO2 26 23 24 BUN 13 13 12 CREAT 0.62* 0.71* 0.91 GLUC 96 117* 315* CA 9.2 9.3 9.1 MG 1.8 -- -- P 2.8 3.5 -- PT INR Date Value Ref Range Status 07/12/2020 1.0 0.9 - 1.3 Final Comment: Vitamin K Antagonist (VKA) Therapeutic Range: INR 2 to 3 (Target INR of 2.5) Note: For patients treated with VKA drugs, such as warfarin, the [place] [employer] 2012 Guideline recommends a therapeutic INR range of 2 to 3 (target INR of 2.5). This recommendation includes high-risk patients with antiphospholipid syndrome with previous arterial or venous thromboembolism, current-generation mechanical or bioprosthetic aortic heart valve replacement. Note: Patients with mechanical aortic valve replacement and additional risk factors for thromboembolic events (atrial fibrillation, previous thromboembolism, LV dysfunction, hypercoagulable conditions) or an older generation mechanical AVR (i.e., ball in-Cage) or any mechanical MVR should have a INR therapeutic range of 2.5 to 3.5 (target INR of 3). Katja GH, et al. Chest 2012, 141:7S-47S Patric RA, et al. [facility] 2017, 70: 252-289 Recent Labs 07/12/20 0448 07/11/20 0502 07/10/20 0542 TPROT 5.9* 5.6* 5.8* ALB 3.8* 3.6* 3.6* ALT 123* 176* 182* AST 43* 83* 115* ALKPHOS 178* 211* 220* TBILI 2.9* 4.4* 8.4* UA 3.0 ? Echo - CONCLUSIONS: - Exam indication: Cardiotoxicity-Baseline evaluation for patient about to undergo therapy with cardiotoxic agents - The left ventricle is normal in size. Left ventricular systolic function is normal. EF = 57 ? 5% (3D) Normal left ventricular diastolic function. - The right ventricle is normal in size. Right ventricular systolic function is normal. - There is no patent foramen ovale as detected by Doppler. - No significant valvular abnormalities - The patient has not had a prior CC echocardiographic exam for comparison. ? CT - Some lung scarring and bullous changes. No alveolar consolidation or pleural effusion. Small pulmonary nodular densities. No discrete mediastinal hilar or axillary adenopathy. Large central abdominal mass which appears to be invading the liver. ? Associated vascular encasement and intrahepatic biliary dilatation. ?The findings are consistent with the provided diagnosis of lymphoma. Mild hepatic steatosis. ? 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 ?Nicoderm Hepatitis C ?Treated with Epclusa (sofosbuvir/velpatasvir) x 12 [address] Jenkins in [place] ID consult HCV Ab + HCV RNA - pending HTN ?Catapress prn Hypoalbuminemia Anemia Abd pain From lymphoma Pall Med consult Duragesic patch Oxycodone prn Fentanyl iv prn ? Continue rx SIGNATURE: Mario Yanes MD Normal [facility] Phosphoruson 07-12-2020 Phosphate [Mass/Vol] 2.8 mg/dL Normal 2.7-4.8 [facility] Protimeon 07-12-2020 PT Coag (PPP) [Time] 10.9 s Normal 9.7-13.0 [facility] PT Coag (PPP) [Time] 1.0 s Normal 0.9-1.3 [facility] Comment on above: Result Comment: Meredith min K Antagonist (VKA) Therapeutic Range: INR 2 to 3 (Target INR of 2.5) Note: For patients treated with VKA drugs, such as warfarin, the [place] [employer] 2012 Guideline recommends a therapeutic INR range of 2 to 3 (target INR of 2.5). This recommendation includes high-risk patients with antiphospholipid syndrome with previous arterial or venous thromboembolism, current-generation mechanical or bioprosthetic aortic heart valve replacement. Note: Patients with mechanical aortic valve replacement and additional risk factors for thromboembolic events (atrial fibrillation, previous thromboembolism, LV dysfunction, hypercoagulable conditions) or an older generation mechanical AVR (i.e., ball in-Cage) or any mechanical MVR should have a INR therapeutic range of 2.5 to 3.5 (target INR of 3). Katja SONG, et al. Chest 2012, 141:7S-47S Patric RA, et al. [facility] 2017, 70: 252-289 Uric Acidon 07-12-2020 Urate [Mass/Vol] 3.0 mg/dL Low 4.0-8.1 [facility] Basic Metabolic Panlon 07-11 Anion gap [Moles/Vol] 11 mmol/L Normal 9-18 [facility] Calcium [Mass/Vol] 9.3 mg/dL Normal 8.5-10.2 [facility] Chloride [Moles/Vol] 107 mmol/L High 97-105 [facility] CO2 [Moles/Vol] 23 mmol/L Normal 22-33 [facility] Creatinine [Mass/Vol] 0.71 mg/dL Low 0.73-1.22 [facility] eGFR- Amer. >60 Normal [facility] GFR/1.73 sq M predicted among non-blacks MDRD (S/P/Bld) [Vol rate/Area] mL/min/{1.73_m2} Normal [facility] Comment on above: Result Comment: eGFR (Estimated GFR) Units of measure: mL/min/1.73 meters squared eGFR is derived from the reexpressed MDRD Study equation using the following parameters: serum creatinine, age, gender and race. The creatinine assay has been calibrated to be traceable to IDMS. An eGFR <60 mL/min/1.73m2 for >3 months is consistent with chronic kidney disease. Refer to KDOQI guidelines for clinical interpretation. In patients with unstable renal function, e.g. those with acute kidney injury, the eGFR may not accurately reflect actual GFR. Glucose [Mass/Vol] 117 mg/dL High 74-99 [facility] Potassium [Moles/Vol] 4.4 mmol/L Normal 3.7-5.1 [facility] Sodium [Moles/Vol] 141 mmol/L Normal 136-144 [facility] Urea nitrogen [Mass/Vol] 13 mg/dL Normal 9-24 [facility] CBC and Differentialon 07-11 Abs Baso <0.03 Normal <0.11 [facility] Abs [place] 0.49 k/uL Normal <0.87 [facility] Abs Neut 6.27 k/uL Normal 1.45-7.50 [facility] Absolute nRBC <0.01 Normal <0.01 [facility] Basophils/100 WBC (Bld) 0.1 % Normal [facility] DTYPE Auto Diff Normal [facility] Eosinophils (Bld) [#/Vol] 10*3/uL Normal <0.46 [facility] Eosinophils/100 WBC (Bld) 0.1 % Normal [facility] Erythrocyte distribution width (RBC) [Ratio] 14.1 % Normal 11.5-15.0 [facility] Hematocrit (Bld) [Volume fraction] 34.8 % Low 39.0-51.0 [facility] Hemoglobin (Bld) [Mass/Vol] 11.7 g/dL Low 13.0-17.0 [facility] Lymphocytes (Bld) [#/Vol] 0.91 10*3/uL Low 1.00-4.00 [facility] Lymphocytes/100 WBC (Bld) 11.8 % Normal [facility] MCH (RBC) [Entitic mass] 31.5 pG Normal 26.0-34.0 [facility] MCHC (RBC) [Mass/Vol] 33.6 g/dL Normal 30.5-36.0 [facility] MCV (RBC) [Entitic vol] 93.8 fL Normal 80.0-100.0 [facility] Monocytes/100 WBC (Bld) 6.4 % Normal [facility] Neutrophils/100 WBC (Bld) 81.6 % Normal [facility] NRBCs 0.0 /100 WBC Normal 0 [facility] Platelet mean volume (Bld) [Entitic vol] 11.3 fL Normal 9.0-12.7 [facility] Platelets (Bld) [#/Vol] 212 10*3/uL Normal 150-400 [facility] RBC (Bld) [#/Vol] 3.71 10*6/uL Low 4.20-6.00 [facility] WBC (Bld) [#/Vol] 7.69 10*3/uL Normal 3.70-11.00 [facility] CONSULTon 07-11-2020 CONSULT HNO ID: [id number] Author: Swati Zaldivar Service: Infectious Disease Author Type: Physician Type: Consults Filed: 07/11/2020 3:26 PM Note Text: INFECTIOUS DISEASE INITIAL CONSULT PATIENT NAME: Alejandro Killian SERVICE DATE: 07/11/2020 SERVICE TIME: 2:06 PM REASON FOR CONSULT: history of Hep C REQUESTING PHYSICIAN: Dr Atkins PRIMARY CARE PHYSICIAN: No primary care provider on file. HPI Mr. Killian is a very pleasant, 65 year old male with PMH of probably B Cell lymphoma, prostate CA, Hep C s/p treatment with Epclusa x12 weeks in [place] who presented with obstructive jaundice. Bilirubin is improving, but team still considering biliary decompression ID asked to give opinion regarding Hep C suppression during chemotherapy. Treated with 12 weeks of Epclusa for Hepatitis C earlier this year--states he has been done for ~4 months. Typically we suppress Hep B when a patient is pending chemo/other immunosuppressing condition. Hep C viral load is pending. He otherwise is feeling much better than earlier on admission Denies cough, chest pain, shortness of breath, nasal congestion, headache, sore throat, abdominal pain, diarrhea, or dysuria. ROS: As per HPI. Otherwise 14 system review is negative. PAST MEDICAL HISTORY Diagnosis Date - COPD (chronic obstructive pulmonary disease) (HCC) Mild - Fistula - Prostate cancer (HCC) 12/2011 PAST SURGICAL HISTORY Procedure Laterality Date - COLONOSCOP W/ OR W/O [facility] SPEC 02/15/16 Colonoscopy - PAST SURGICAL HISTORY OF appendectomy - PAST SURGICAL HISTORY OF tonsilectomy - PROSTATECTOMY, SIMPLE, BENIGN 01/03/12 prostate removed FAMILY HISTORY Problem Relation Age of Onset - Heart Father of [place] age 80 - Heart Paternal Grandmother - Heart Paternal Grandfather Social History Tobacco Use - Smoking status: Current Every Day Smoker Packs/day: 0.50 Years: 43.00 Pack years: 21.50 Types: Cigarettes Start date: 01/01/1979 - Smokeless tobacco: Never Used Substance Use Topics - Alcohol use: Yes Comment: drinks 1 drink per month - Drug use: No MEDICATIONS: Prior to Admission Medications: - budesonide-formoterol (SYMBICORT) 160-4.5 mcg/actuation inhaler, Inhale 2 Puffs as instructed twice daily., Disp: , Rfl: - oxyCODONE-acetaminophen (PERCOCET) 5-325 mg tablet, Take 1 tablet by mouth every 4 hours as needed., Disp: , Rfl: - fentaNYL (DURAGESIC) 25 mcg/hr, Apply 1 Patch as directed every 72 hours., Disp: , Rfl: - docusate sodium (COLACE) 100 mg capsule, Take 100 mg by mouth once daily., Disp: , Rfl: - leuprolide, 6 month, (LUPRON DEPOT, 6 MONTH,) sykt IM syringe kit, Inject 45 mg intramuscularly as directed. every 6 months., Disp: 1 Kit, Rfl: 11 - fluticasone-salmeterol (ADVAIR DISKUS) 250-50 mcg/dose dsdv, Inhale 1 Puff as instructed twice daily. Rinse and gargle mouth after use with water., Disp: 1 Inhaler, Rfl: 5 - albuterol HFA (PROAIR HFA) 90 mcg/actuation inhaler, Inhale 2 Puffs as instructed every 4 hours as needed., Disp: 1 Inhaler, Rfl: 11 - IBUPROFEN ORAL, Take by mouth. , Disp: , Rfl: - aspirin(ADULT LOW DOSE ASPIRIN 81 MG TAB, DELAYED RELEASE), Take one(1) tablet daily., Disp: , Rfl: 0 Current Facility-Administered Medications Medication Dose Route Frequency - ondansetron (PF) 4 mg injection (ZOFRAN) 4 mg INTRAVENOUS q 4 H PRN - fentaNYL 50 mcg/mL 25 mcg injection (SUBLIMAZE) 25 mcg INTRAVENOUS q 3 H PRN - nicotine 14 mg/24 hr 1 Patch (NICODERM) 1 Patch TRANSDERMAL DAILY And - nicotine -- REMOVE patch OTHER DAILY And - nicotine - verify patch OTHER q 8 H - atropine 0.5 mg injection 0.5 mg INTRAVENOUS PRN(NO DISPENSE) - amiodarone 150 mg in D5W 100 mL (NEXTERONE) 150 mg INTRAVENOUS PRN(NO DISPENSE) - fluticasone-vilanterol 100-25 mcg/dose 1 Inhalation (BREO ELLIPTA) 1 Inhalation INHALATION DAILY - fentaNYL 25 mcg/hr 1 Patch (DURAGESIC) 1 Patch TRANSDERMAL q 72 HR And - [START ON 07/12/2020] fentaNYL - REMOVE PATCH OTHER q 72 HR And - fentaNYL - VERIFY PATCH OTHER q 8 H - cloNIDine HCl 0.1 mg tab(s) (CATAPRES) 0.1 mg ORAL q 8 H - allopurinol 300 mg tab(s) (ZYLOPRIM) 300 mg ORAL DAILY - NaCl 0.9% iv infusion 100 mL/hr INTRAVENOUS CONTINUOUS - perflutren lipid microspheres 1.1 mg/mL 1.3 mL injection (DEFINITY) 1.3 mL INTRAVENOUS DIRECTED PRN - iv contrast (radiology procedure) INTRAVENOUS DIRECTED PRN - sodium chloride 0.9 % (flush) 10 mL (BD POSIFLUSH) 10 mL INTRAVENOUS q 12 H - sodium chloride 0.9 % (flush) 20 mL (BD POSIFLUSH) 20 mL INTRAVENOUS PRN - methylPREDNISolone sod succinate(PF) 120 mg injection (SOLU-Medrol) 120 mg INTRAVENOUS DAILY - nystatin 5 mL oral liquid (MYCOSTATIN) 5 mL ORAL QID - pantoprazole DR 20 mg tab(s) (PROTONIX) 20 mg ORAL DAILY (6 AM) - senna 8.6 mg tab(s) (SENOKOT) 8.6 mg ORAL BID - bisacodyl 10 mg suppository (DULCOLAX) 10 mg RECTAL DAILY PRN - magnesium hydroxide 400 mg/5 mL 30 mL (MOM) 30 mL ORAL DAILY PRN - sodium chloride 0.9 % (flush) 10 mL (BD POSIFLUSH) 10 mL INTRAVENOUS q 12 H - sodium chloride 0.9 % (flush) 20 mL (BD POSIFLUSH) 20 mL INTRAVENOUS PRN - docusate sodium 100 mg cap(s) (COLACE) 100 mg ORAL BID - oxyCODONE IR 5 mg tab(s) (ROXICODONE) 5 mg ORAL q 4 H PRN CURRENT ALLERGIES: Allergies As of Date: 07/09/2020 Allergen Noted Reaction DOXYCYCLINE 12/30/2014 GI Upset Fully Assessed 07/09/2020 OBJECTIVE Patient Vitals for the past 24 hrs: BP Temp Temp src Pulse Resp SpO2 07/11/20 1131 155/75 36.6 ?C (97.9 ?F) Oral 76 16 97 % 07/11/20 0238 166/80 36.7 ?C (98.1 ?F) Oral 70 17 95 % 07/10/20 2339 156/76 36.8 ?C (98.2 ?F) Oral 77 17 95 % 07/10/202014 184/83 36.4 ?C (97.6 ?F) Oral 79 18 ? 07/10/20 1546 171/82 36.7 ?C (98 ?F) Oral 65 16 98 % 07/10/20 1543 ? ? ? 65 ? 98 % PHYSICAL EXAM: Gen - awake, alert, no distress, nontoxic appearing Eyes - PERRL, mild scleral icterus ENT - no pharyngeal erythema, no oral thrush/lesions Heart - RRR, no murmurs Lungs - CTAB, normal respiratory effort Abd - soft, nontender, nondistended Ext - no edema, no joint swelling; LUE PICC line Neuro - no focal deficits noted, oriented x 3 Skin - no rashes noted, no wounds DATA: Diagnostic tests reviewed for today's visit: Labs: WBC Date Value Ref Range Status 07/11/2020 7.69 3.70 - 11.00 k/uL Final Creatinine Date Value Ref Range Status 07/11/2020 0.71 (L) 0.73 - 1.22 mg/dL Final 07/10/2020 0.91 0.73 - 1.22 mg/dL Final 07/09/2020 0.95 0.73 - 1.22 mg/dL Final 07/15/2014 0.97 0.70 - 1.40 mg/dL Final Micro: none Imaging: CT C/A/P IMPRESSION: Large central abdominal mass which appears to be invading the liver. ? Associated vascular encasement and intrahepatic biliary dilatation. ?The findings are consistent with the provided diagnosis of lymphoma. Mild hepatic steatosis Assessment: 65yo M with hx of treated Hep C who is pending chemotherapy for aggressive B cell lymphoma If he has been adequately treated for Hep C and viral load is undetectable, I do not see a need to give any additional suppressive treatment. Typically we give Hep B suppression in these situations since it can reactivate but I know of no data for Hepatitis C suppression. Plan: -f/u Hep C viral load -if Hep C viral load negative, I would start chemotherapy as planned. No role for suppressive Hep C therapy that I know of--Hep B serologies negative -if viral load positive, I would defer to GI team/Hepatology regarding possible concurrent treatment or retreatment of Hep C during chemo -will follow Swati Zaldivar DO [facility] Contact#: [phone] [facility] CONSULT PROGon 07-11-2020 CONSULT PROG HNO ID: [id number] Author: Noemy Flores Service: Gastroenterology Author Type: Nurse Practitioner Type: Consult Progress Note Filed: 07/11/2020 12:54 PM Note Text: CONSULT GI PROGRESS NOTES PATIENT NAME: Alejandro Killian SERVICE DATE: 07/11/2020 SERVICE TIME: 10:00 AM CONSULTING SERVICE: GI ASSESSMENT AND PLAN -discussed with Dr. Barroso Abdominal pain w obstructive jaundice due to large pancreatic mass > due to probable B-cell lymphoma in patient with history HCV (treated) -- mass extending to the duodenum, liver, right obstruction with left main obstruction and left sided dilation of ducts. -- 07/10 s/p bone marrow biopsy -- Not amenable to ERCP -- Ca19-9 wnl, CEA mild elevation at 5.2 --Hematology and palliative medicine on consult > plan for chemoimmunotherapy --LFTs much improved since starting steroids > currently he is scheduled for IR PTHC on 07-13 but if he continues to improve doubt this will be necessary. We will continue to monitor him closely. --HCV quantitative pending. Patient reports s/p treatment of HCV at OSH in [place], unsure if he cleared. --ID consult pending SUBJECTIVE INTERVAL HPI: Reports this is the best he has felt in a while. No abdominal pain or nausea, eating lunch. OBJECTIVE BP 166/80 Pulse 70 Temp (Src) 98.1 (Oral) Resp 17 Wt 134 lb 8 oz (61.0kg) SpO2 95% O2 Therapy: Room Air PHYSICAL EXAM: GENERAL: in NAD SKIN: Skin warm, dry EYES: Sclerae mildly icteric NEURO: Alert, Oriented x 3 ABDOMEN: Abdomen soft, non-distended, non-tender DATA: Diagnostic tests reviewed for today's visit: CBC, Coags, BMP, Mg, Phos Recent Labs 07/11/20 0450 07/10/20 0542 07/09/202121 WBC 7.69 6.44 7.90 HB 11.7* 11.6* 13.4 HCT 34.8* 34.2* 39.4 PLT 212 187 237 INR -- 1.1 1.0 NA 141 137 139 K 4.4 2.5* 3.2* CHLOR 107* 98 100 CO2 23 24 27 BUN 13 12 12 CREAT 0.71* 0.91 0.95 GLUC 117* 315* 99 CA 9.3 9.1 10.8* P 3.5 -- -- Liver Function, Amylase, AND Lipase Recent Labs 07/11/20 0502 07/10/20 0542 07/09/202121 TPROT 5.6* 5.8* 6.9 ALB 3.6* 3.6* 4.2 ALT 176* 182* 219* AST 83* 115* 144* ALKPHOS 211* 220* 258* TBILI 4.4* 8.4* 9.8* SIGNATURE: Noemy Flores APRN.ALINE DATE: July 11, 2020 TIME: 10:00 AM [facility] CONSULT PROG HNO ID: [id number] Author: Ceferino Atkins Service: Hematology/Oncology Author Type: Physician Type: Consult Progress Note Filed: 07/11/2020 9:59 AM Note Text: CONSULT PROGRESS NOTES PATIENT NAME: Alejandro Killian ASSESSMENT AND PLAN 1. 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 Hepatitis C, treated with Epclusa x 12 weeks [place] [address] Jenkins in [place] 4. History of prostate cancer Bilirubin much better (8 >> 4) after solumedrol yesterday Uric acid < 4. No overt Tumor lysis Patient notes improved abdominal pain and urine color compared to yesterday Plan: 1. Continue solumdrol, nystatin, protonix 2. Awaiting Hep C quantitative eval 3. Awaiting echo 4. Hold off on cytoxan today given significant improvement with steroids alone 5. Repeat HFP tomorrow 6. If continued improvement of jaundice / biliary obstruction, anticipate RCHOP on Mon or 7. Need for biliary decompression being determined. Hopefully medications alone will work 8. Consult ID regarding hepatitis C and impending chemotherapy. Subjective Feeling much better today Less abdominal pain Appetite improved Noticed improvement of urine color MEDICATIONS: Current Facility-Administered Medications Medication Dose Route Frequency - ondansetron (PF) 4 mg injection (ZOFRAN) 4 mg INTRAVENOUS q 4 H PRN - fentaNYL 50 mcg/mL 25 mcg injection (SUBLIMAZE) 25 mcg INTRAVENOUS q 3 H PRN - nicotine 14 mg/24 hr 1 Patch (NICODERM) 1 Patch TRANSDERMAL DAILY And - nicotine -- REMOVE patch OTHER DAILY And - nicotine - verify patch OTHER q 8 H - atropine 0.5 mg injection 0.5 mg INTRAVENOUS PRN(NO DISPENSE) - amiodarone 150 mg in D5W 100 mL (NEXTERONE) 150 mg INTRAVENOUS PRN(NO DISPENSE) - fluticasone-vilanterol 100-25 mcg/dose 1 Inhalation (BREO ELLIPTA) 1 Inhalation INHALATION DAILY - fentaNYL 25 mcg/hr 1 Patch (DURAGESIC) 1 Patch TRANSDERMAL q 72 HR And - [START ON 07/12/2020] fentaNYL - REMOVE PATCH OTHER q 72 HR And - fentaNYL - VERIFY PATCH OTHER q 8 H - cloNIDine HCl 0.1 mg tab(s) (CATAPRES) 0.1 mg ORAL q 8 H - allopurinol 300 mg tab(s) (ZYLOPRIM) 300 mg ORAL DAILY - NaCl 0.9% iv infusion 100 mL/hr INTRAVENOUS CONTINUOUS - perflutren lipid microspheres 1.1 mg/mL 1.3 mL injection (DEFINITY) 1.3 mL INTRAVENOUS DIRECTED PRN - iv contrast (radiology procedure) INTRAVENOUS DIRECTED PRN And - enteric contrast (radiology procedure) ORAL DIRECTED PRN - sodium chloride 0.9 % (flush) 10 mL (BD POSIFLUSH) 10 mL INTRAVENOUS q 12 H - sodium chloride 0.9 % (flush) 20 mL (BD POSIFLUSH) 20 mL INTRAVENOUS PRN - methylPREDNISolone sod succinate(PF) 120 mg injection (SOLU-Medrol) 120 mg INTRAVENOUS DAILY - nystatin 5 mL oral liquid (MYCOSTATIN) 5 mL ORAL QID - pantoprazole DR 20 mg tab(s) (PROTONIX) 20 mg ORAL DAILY (6 AM) - senna 8.6 mg tab(s) (SENOKOT) 8.6 mg ORAL BID - bisacodyl 10 mg suppository (DULCOLAX) 10 mg RECTAL DAILY PRN - magnesium hydroxide 400 mg/5 mL 30 mL (MOM) 30 mL ORAL DAILY PRN - sodium chloride 0.9 % (flush) 10 mL (BD POSIFLUSH) 10 mL INTRAVENOUS q 12 H - sodium chloride 0.9 % (flush) 20 mL (BD POSIFLUSH) 20 mL INTRAVENOUS PRN - docusate sodium 100 mg cap(s) (COLACE) 100 mg ORAL BID - oxyCODONE IR 5 mg tab(s) (ROXICODONE) 5 mg ORAL q 4 H PRN OBJECTIVE PHYSICAL EXAM: BP 166/80 Pulse 70 Temp (Src) 98.1 (Oral) Resp 17 Wt 134 lb 8 oz (61.0kg) SpO2 95% O2 Therapy: Room Air Body surface area is 1.7 meters squared. Moderate scleral icterus. Jaundiced skin Skin: Skin color, texture, turgor normal. No rashes or lesions. HEENT: PERRLA, EOMI, oral cavity and pharynx clear Neck: supple, no adenopathy; thyroid symmetric, normal size, no bruits. Nodes: No cervical, supraclavicular, axillary, inguinal adenopathy. Lungs: clear to ausculation and percussion bilaterally Heart: negative. RRR without murmur, gallop, or rubs. No ectopy. Abdomen: Abdomen soft, non-tender. Bowel sounds normal. No masses, organomegaly Extremities: Negative vinayak's. No cords. No deformities, edema, or skin discoloration. Good capillary refill. DATA: CBC, Coags, BMP, Mg, Phos Recent Labs 07/11/20 0450 07/10/20 0542 07/09/202121 WBC 7.69 6.44 7.90 HB 11.7* 11.6* 13.4 HCT 34.8* 34.2* 39.4 PLT 212 187 237 INR -- 1.1 1.0 NA 141 137 139 K 4.4 2.5* 3.2* CHLOR 107* 98 100 CO2 23 24 27 BUN 13 12 12 CREAT 0.71* 0.91 0.95 GLUC 117* 315* 99 CA 9.3 9.1 10.8* P 3.5 -- -- Liver Function, Amylase, AND Lipase Recent Labs 07/11/20 0502 07/10/20 0542 07/09/202121 TPROT 5.6* 5.8* 6.9 ALB 3.6* 3.6* 4.2 ALT 176* 182* 219* AST 83* 115* 144* ALKPHOS 211* 220* 258* TBILI 4.4* 8.4* 9.8* SIGNATURE: Ceferino Atkins MD [facility] CONSULT PROG HNO ID: [id number] Author: Amie Stovall) Ponce Service: Palliative Care Author Type: Physician Ruby Rails Developer Type: Consult Progress Note Filed: 07/11/2020 12:15 PM Note Text: PALLIATIVE MEDICINE CONSULT PROGRESS NOTE To contact the [place] palliative medicine service from 5p - 8a on weekdays and anytime during the weekend, please page [phone] PATIENT NAME: Alejandro Killian Subjective REASON FOR CONSULT / CHIEF CONSULT COMPLAINT: Pain management Primary Site of Disease/Medical Illness: Large pancreatic mass extending to the duodenum, liver, right obstruction with left main obstruction and left sided dilation of ducts Pertinent Medical History: Obstructive jaundice INTERVAL HPI: Chart reviewed. Percocet changed to oxycodone IR 5 mg. Pain is under control now. 12/19. When present, pain is over abd and around flanks. Intermittent. Worse when he is constipated. At home was able to keep it at bay by walking around. No sob. No nausea. Appetite is good. Moved his bowels x 4 today. Mood is good. [place] good news from Onc: Bili coming down. Had good response from steroids. Plan will be to start RCHOP early next week if continued improvement 24 hr PRN med use: Fentanyl 25 mcg q 3h prn x 3 Oxycodone IR 5 mg q 4h prn x 4 (2 of those given as Percocet) Fentanyl patch 25 mcg/hr Hosp meds: *Inpatient med list reviewed REVIEW OF SYSTEMS: Modified ESAS ([place] Symptom Assessment Scale): Information Provided By: Patient Pain: Mild Nausea: None Loss of Appetite: None Constipation: None Shortness of Breath: None Drowsiness: None Tiredness: None Depression: None Anxiety: None How you feel overall: Good Other problem: None Objective PHYSICAL EXAMINATION: Vital Signs: BP 166/80 Pulse 70 Temp 36.7 ?C (98.1 ?F) (Oral) Resp 17 Wt 61 kg (134 lb 8 oz) SpO2 95% BMI 21.07 kg/m? General Appearance: No apparent distress and No nonverbal signs of pain ENT: Atraumatic external nose and ears and Oropharnyx clear with moist mucous membranes Skin: Normal warmth, Dry and Jaundice Resp: Unlabored respiratory effort and Clear to auscultation bilaterally CV: Regular rate and rhythm and No lower extremity edema GI: Soft, Nontender and Normal bowel sounds Neuro: No focal weakness and Sensation grossly intact Psych: Oriented to: Time, Place, Person and Situation and Mood and affect: normal DATA: Diagnostic tests and information reviewed for today's visit: Most recent labs and imaging results. Recent Labs 07/11/20 0502 07/11/20 0450 07/10/20 0542 07/09/202 WBC -- 7.69 6.44 7.90 HB -- 11.7* 11.6* 13.4 HCT -- 34.8* 34.2* 39.4 PLT -- 212 187 237 NA -- 141 137 139 K -- 4.4 2.5* 3.2* CHLOR -- 107* 98 100 CO2 -- 23 24 27 CREAT -- 0.71* 0.91 0.95 P -- 3.5 -- -- BUN -- 13 12 12 GLUC -- 117* 315* 99 TPROT 5.6* -- 5.8* 6.9 ALB 3.6* -- 3.6* 4.2 CA -- 9.3 9.1 10.8* ALKPHOS 211* -- 220* 258* TBILI 4.4* -- 8.4* 9.8* AST 83* -- 115* 144* ALT 176* -- 182* 219* INR -- -- 1.1 1.0 Impression/Recommendations Alejandro Killian is a 65 year old male admitted on 07/09/2020 for obstructive jaundice. Care is complicated by new diagnosis of Non-Hodgkin's lymphoma. Palliative Medicine has been consulted to assist with pain and symptom management. COPD Active smoker Hx of prostate cancer ? Non-Hodgkin lymphoma of intra-abdominal lymph nodes Obstructive jaundice - Oncology consulted ---- bone marrow biopsy done 07/10 ---- plans to start chemotherapy early next with as long as showing continued improvement; bili trending down - Solu-medrol 120 mg IV daily - Allopurinol 300 mg daily - Monitor tumor lysis labs twice a day per Hem/Onc - ID consult to monitor hep C ? Pain - diffuse, abdominal pain radiating to the flanks - Likely secondary to lymphoma - Continue oxycodone IR 5 mg q 4h prn - Continue Duragesic patch 25 mcg/hr once every 72 hrs - Continue fentanyl 25 mcg q 3hrs prn Constipation - Likely due to opioid therapy - Continue Colace 100 mg once daily - Start senna 8.6 mg BID - Bisacodyl 10mg AL once daily prn - Magnesium hydroxide 1 packet daily prn - BM 07/11 x 4 ACP / GOC / Pall Med Care Plan - Continue to follow for pain management and constipation - No changes to plan today Existence of Advance Directives - No - not interested *Some elements copied from the Palliative Medicine consult progress note on 07/10/20, the mckinney elements have been updated and all reflect current decision making from today, 07/11/2020. SIGNATURE: Amie Serra PA-C CONTACT #: [phone] TO SEND A PAGE: [phone] Normal [facility] Hepatic Functn Panelon 07-11 Albumin [Mass/Vol] 3.6 g/dL Low 3.9-4.9 [facility] ALP [Catalytic activity/Vol] 211 U/L High 38-113 [facility] ALT [Catalytic activity/Vol] 176 U/L High 10-54 [facility] AST [Catalytic activity/Vol] 83 U/L High 14-40 [facility] Bilirubin [Mass/Vol] 4.4 mg/dL High 0.2-1.3 [facility] Bilirubin,Conjugate d 3.2 mg/dL High <0.2 [facility] Protein [Mass/Vol] 5.6 g/dL Low 6.3-8.0 [facility] NURSING PROGon 07-11-2020 NURSING PROG HNO ID: [id number] Author: Amanda (Rn) HÉCTOR Johnson Service: ? Author Type: Registered Nurse Type: Nursing Progress Note Filed: 12/02/2020 11:46 AM Note Text: Nursing Progress Note Patient Name: Alejandro Killian Patient Location: [place] [address] Daily Note: Assumed care of patient. Pt is resting in bed. No This note was completed by: Amanda Johnson RN Normal [facility] PROGRESSon 07-11-2020 PROGRESS HNO ID: [id number] Author: Mario Yanes Service: General Internal Medicine Author Type: Physician Type: Progress Notes Filed: 07/11/2020 6:52 PM Note Text: Internal Medicine Daily Progress Note Patient Name: Alejandro Killian Location: [place] [address] [facility] Admission Date: 07/09/2020 6:40 PM Hospital Day: 2 + 1 Date of Service: July 11, 2020 Time of Service: 12:42 PM INTERVAL HISTORY: Alejandro Killian reports that he is feeling better today. He is glad that his bilirubin has decreased. No new c/o. No new problems overnight. No acute issues per staff interpreter. VITALS: Temp (24hrs), Av.7 ?C (98 ?F), Min:36.4 ?C (97.6 ?F), Max:36.8 ?C (98.2 ?F) BP 155/75 Pulse 76 Temp 36.6 ?C (97.9 ?F) (Oral) Resp 16 Wt 61 kg (134 lb 8 oz) SpO2 97% BMI 21.07 kg/m? Intake/Output Summary (Last 24 hours) at 07/11/2020 0659 Last data filed at 07/10/2020 2200 Gross per 24 hour Intake 400 ml Output ? Net 400 ml MEDICATIONS Current Facility-Administered Medications Medication Dose Route Frequency - ondansetron (PF) 4 mg injection (ZOFRAN) 4 mg INTRAVENOUS q 4 H PRN - fentaNYL 50 mcg/mL 25 mcg injection (SUBLIMAZE) 25 mcg INTRAVENOUS q 3 H PRN - nicotine 14 mg/24 hr 1 Patch (NICODERM) 1 Patch TRANSDERMAL DAILY And - nicotine -- REMOVE patch OTHER DAILY And - nicotine - verify patch OTHER q 8 H - atropine 0.5 mg injection 0.5 mg INTRAVENOUS PRN(NO DISPENSE) - amiodarone 150 mg in D5W 100 mL (NEXTERONE) 150 mg INTRAVENOUS PRN(NO DISPENSE) - fluticasone-vilanterol 100-25 mcg/dose 1 Inhalation (BREO ELLIPTA) 1 Inhalation INHALATION DAILY - fentaNYL 25 mcg/hr 1 Patch (DURAGESIC) 1 Patch TRANSDERMAL q 72 HR And - [START ON 07/12/2020] fentaNYL - REMOVE PATCH OTHER q 72 HR And - fentaNYL - VERIFY PATCH OTHER q 8 H - cloNIDine HCl 0.1 mg tab(s) (CATAPRES) 0.1 mg ORAL q 8 H - allopurinol 300 mg tab(s) (ZYLOPRIM) 300 mg ORAL DAILY - NaCl 0.9% iv infusion 100 mL/hr INTRAVENOUS CONTINUOUS - perflutren lipid microspheres 1.1 mg/mL 1.3 mL injection (DEFINITY) 1.3 mL INTRAVENOUS DIRECTED PRN - iv contrast (radiology procedure) INTRAVENOUS DIRECTED PRN - sodium chloride 0.9 % (flush) 10 mL (BD POSIFLUSH) 10 mL INTRAVENOUS q 12 H - sodium chloride 0.9 % (flush) 20 mL (BD POSIFLUSH) 20 mL INTRAVENOUS PRN - methylPREDNISolone sod succinate(PF) 120 mg injection (SOLU-Medrol) 120 mg INTRAVENOUS DAILY - nystatin 5 mL oral liquid (MYCOSTATIN) 5 mL ORAL QID - pantoprazole DR 20 mg tab(s) (PROTONIX) 20 mg ORAL DAILY (6 AM) - senna 8.6 mg tab(s) (SENOKOT) 8.6 mg ORAL BID - bisacodyl 10 mg suppository (DULCOLAX) 10 mg RECTAL DAILY PRN - magnesium hydroxide 400 mg/5 mL 30 mL (MOM) 30 mL ORAL DAILY PRN - sodium chloride 0.9 % (flush) 10 mL (BD POSIFLUSH) 10 mL INTRAVENOUS q 12 H - sodium chloride 0.9 % (flush) 20 mL (BD POSIFLUSH) 20 mL INTRAVENOUS PRN - docusate sodium 100 mg cap(s) (COLACE) 100 mg ORAL BID - oxyCODONE IR 5 mg tab(s) (ROXICODONE) 5 mg ORAL q 4 H PRN LABORATORY DATA CBC, Coags, BMP, Mg, Phos Recent Labs 07/11/20 0450 07/10/20 0542 07/09/20 2122 WBC 7.69 6.44 7.90 HB 11.7* 11.6* 13.4 HCT 34.8* 34.2* 39.4 PLT 212 187 237 NA 141 137 139 K 4.4 2.5* 3.2* CHLOR 107* 98 100 CO2 23 24 27 BUN 13 12 12 CREAT 0.71* 0.91 0.95 GLUC 117* 315* 99 CA 9.3 9.1 10.8* P 3.5 -- -- PT INR Date Value Ref Range Status 07/10/2020 1.1 0.9 - 1.3 Final Comment: Vitamin K Antagonist (VKA) Therapeutic Range: INR 2 to 3 (Target INR of 2.5) Note: For patients treated with VKA drugs, such as warfarin, the [place] [employer] 2012 Guideline recommends a therapeutic INR range of 2 to 3 (target INR of 2.5). This recommendation includes high-risk patients with antiphospholipid syndrome with previous arterial or venous thromboembolism, current-generation mechanical or bioprosthetic aortic heart valve replacement. Note: Patients with mechanical aortic valve replacement and additional risk factors for thromboembolic events (atrial fibrillation, previous thromboembolism, LV dysfunction, hypercoagulable conditions) or an older generation mechanical AVR (i.e., ball in-Cage) or any mechanical MVR should have a INR therapeutic range of 2.5 to 3.5 (target INR of 3). Katja SONG, et al. Chest 2012, 141:7S-47S Patric RA, et al. JAC 2017, 70: 252-289 Recent Labs 07/11/20 0502 07/10/20 0542 07/09/202 TPROT 5.6* 5.8* 6.9 ALB 3.6* 3.6* 4.2 ALT 176* 182* 219* AST 83* 115* 144* ALKPHOS 211* 220* 258* Tbili 4.4* 8.4* 9.8* UA 3.9 Echo - pending CT - Some lung scarring and bullous changes. No alveolar consolidation or pleural effusion. Small pulmonary nodular densities. No discrete mediastinal hilar or axillary adenopathy. Large central abdominal mass which appears to be invading the liver. ? Associated vascular encasement and intrahepatic biliary dilatation. ?The findings are consistent with the provided diagnosis of lymphoma. Mild hepatic steatosis. 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 Nicoderm Hepatitis C Treated with Epclusa (sofosbuvir/velpatasvir) x 12 [place] [address] Jenkins in [place] ID consult HCV Ab + HCV RNA - pending HTN Catapress prn Hypoalbuminemia Anemia Abd pain From lymphoma Pall Med consult Duragesic patch Oxycodone prn Fentanyl iv prn Continue rx SIGNATURE: Mario Yanes MD [facility] PROGRESS HNO ID: [id number] Author: Interface Note Service: ? Author Type: ? Type: Progress Notes Filed: 07/11/2020 3:24 AM Note Text: Epic Scheduled Downtime: 07/11/2020 12:20:00 AM to 07/11/2020 3:09:00 AM [facility] Phosphoruson 07-11-2020 Phosphate [Mass/Vol] 3.5 mg/dL Normal 2.7-4.8 [facility] Uric Acidon 07-11-2020 Urate [Mass/Vol] 3.9 mg/dL Low 4.0-8.1 [facility] pHon 07-11-2020 pH (Bld) 6.0 [pH] Normal 5.0-8.0 [facility] ALLIED HEALTHon 07-10-2020 ALLIED HEALTH HNO ID: [id number] Author: Danny Chambers (Tech) Service: Radiology Author Type: Oracle Scm Consultant Type: Allied Health Filed: 07/10/2020 4:19 PM Note Text: Radiology Service Progress Note DATE OF SERVICE: July 10, 2020 TIME: 4:19 PM PATIENT IDENTITY VERIFICATION COMPLETED USING TWO (2) STANDARD IDENTIFIERS: Name and Date of confirmed by patient verbally and Name and Date of confirmed by identification band. FALL SCREENING: Has the patient had 2 falls in the last year or 1 fall with injury or currently using an Ambulatory Assistive Device (Walker, Cane, Wheelchair, Crutches, etc.)? No PATIENT GENDER DATA: Male PATIENT RELEVANT IMPLANT DATA REVIEWED: Not Applicable ALLERGIES: Reviewed and unchanged CONTRAST ALLERGY: NO. EXAM: CT -CONTRAST INDUCED NEPHROPATHY RISK FACTORS: Patient age > 60 years CREATININE: Creatinine Date Value Ref Range Status 07/10/2020 0.91 0.73 - 1.22 mg/dL Final 07/09/2020 0.95 0.73 - 1.22 mg/dL Final 07/15/2014 0.97 0.70 - 1.40 mg/dL Final eGFR-All Other Races Date Value Ref Range Status 07/10/2020 >60 . Final Comment: eGFR (Estimated GFR) Units of measure: mL/min/1.73 meters squared eGFR is derived from the reexpressed MDRD Study equation using the following parameters: serum creatinine, age, gender and race. The creatinine assay has been calibrated to be traceable to IDMS. An eGFR <60 mL/min/1.73m2 for >3 months is consistent with chronic kidney disease. Refer to KDOQI guidelines for clinical interpretation. In patients with unstable renal function, e.g. those with acute kidney injury, the eGFR may not accurately reflect actual GFR. eGFR- Date Value Ref Range Status 07/10/2020 >60 Final P.O.C.T. RESULTS: POC done: Yes, See Lab Tab July 10, 2020 TREATMENT: N/A PERIPHERAL IV DATA: Inpatient - refer to LDA documentation RADIOLOGY DEPARTMENT: CT; Exam(s) Completed: Abdomen and Chest SIGNATURE: Danny Chambers PATIENT NAME: Alejandro Killian DATE: July 10, 2020 TIME: 4:19 PM [facility] Bone Marrowon 07-10-2020 Bone Marrow Bone marrow results will be reported under the Surgical Pathology tab when testing is complete. [facility] Comment on above: Performed By: #### N CELESTE ALMONTE ####[facility] [place], [place] [phone] CASE MGT INIT ASSESon 2019 CASE MGT INIT ASSES HNO ID: [id number] Author: Renetta (Rn) HÉCTOR Garcia Service: Care Management Author Type: Registered Nurse Type: Care Mgt Initial Assessment Filed: 07/10/2020 12:03 PM Note Text: CARE MANAGEMENT: ASSESSMENT AND DISCHARGE PLAN SERVICE DATE: July 10, 2020 SERVICE TIME: 12:01 PM PRIMARY CARE PHYSICIAN: No primary care provider on file. 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 Last discharge within 30 days: No Advance Directive: Current Advance Directive: None Chief Design Drafter Attempted to Assist with AD Completion: Yes Action: Education Provided Health LiteracyHow often do you need to have someone help you when you read instructions, pamphlets, or other written material from your doctor or pharmacy? : 1 - Never How confident are you filling out medical forms by yourself?: 1 - Extremely Baseline Mental Status Prior to this Illness what was the patient's Baseline Mental Status?: Alert AND Oriented Prior to this illness, has anyone described the patient having any of the following behaviors?: Not Applicable Relationship of the informant to the patient:: Self Functional Status: Independent Does Patient Currently Receive Any Community Services or Home Care?: None Equipment Prior to Admission: None Has the Patient Been in a Half-Way Facility in the Past 30 days?: No SOCIAL: Living Arrangements: Home Lives With: Partner Financial Resources: Retired Primary Contact: Extended Emergency Contact Information Primary Emergency Contact: Britney Hilliard Address: [facility] [address] [place] [address] Relation: Significant other Secondary Emergency Contact: Frances Gamboa Mobile Relation: Aunt Supportive Patient Contact:: Yes Contact Resources: Significant Other Social Needs Food insecurity Worry: Patient refused Inability: Patient refused Resources Needed: No Social Needs Financial resource strain: Not on file Social Needs Transportation needs Medical: Patient refused Non-medical: Patient refused Caregiver AssessmentDoes the patient have an acute stroke diagnosis, or has the patient had a stroke during this admission?: No Patient's perception of need for this admission: pain Medication Adherance I am convinced of the importance of my prescription medication: 0 - Agree Completely I worry that my prescription medication will do more harm than good to me : 0 - Disagree Completely I feel financially burdened by my [id number] expenses for my prescription medication:: 0 - Disagree Completely Risk Score: 0 Patient is categorized as: Low risk < 2 Are you interested in bedside delivery of your medications? No Is Patient Psychosocially Complex?: No ASSESSMENT AND PLAN: Medical Needs: Medical Needs: Cancer - active treatment/follow up Psychosocial Needs: Psychosocial Needs: None FREEDOM OF CHOICE EXPLAINED: [place] of Choice Given: No Reason Not Given: Unable to complete with this assessment - revisit POTENTIAL TRANSITION PLANS To Be Determined Lives at home with significant other Britney. Has no advanced directives. He states he was independent at home. Will continue to follow for d/c needs. SIGNATURE: Renetta Garcia RN PATIENT NAME: Alejandro Killian DATE: July 10, 2020 TIME: 12:01 PM PAGER/CONTACT #: [phone] Normal [facility] CBC and Differentialon 07-10 Abs Baso 0.08 k/uL Normal <0.11 [facility] Abs [place] 0.65 k/uL Normal <0.87 [facility] Abs Neut 4.36 k/uL Normal 1.45-7.50 [facility] Absolute nRBC <0.01 Normal <0.01 [facility] Basophils/100 WBC (Bld) 1.2 % Normal [facility] DTYPE Auto Diff Normal [facility] Eosinophils (Bld) [#/Vol] 0.31 10*3/uL Normal <0.46 [facility] Eosinophils/100 WBC (Bld) 4.8 % [facility] Erythrocyte distribution width (RBC) [Ratio] 13.9 % Normal 11.5-15.0 [facility] Hematocrit (Bld) [Volume fraction] 34.2 % Low 39.0-51.0 [facility] Hemoglobin (Bld) [Mass/Vol] 11.6 g/dL Low 13.0-17.0 [facility] Lymphocytes (Bld) [#/Vol] 1.04 10*3/uL Normal 1.00-4.00 [facility] Lymphocytes/100 WBC (Bld) 16.1 % Normal [facility] MCH (RBC) [Entitic mass] 31.7 pG Normal 26.0-34.0 [facility] MCHC (RBC) [Mass/Vol] 33.9 g/dL Normal 30.5-36.0 [facility] MCV (RBC) [Entitic vol] 93.4 fL Normal 80.0-100.0 [facility] Monocytes/100 WBC (Bld) 10.1 % Normal [facility] Neutrophils/100 WBC (Bld) 67.8 % Normal [facility] NRBCs 0.0 /100 WBC Normal 0 [facility] Platelet mean volume (Bld) [Entitic vol] 11.4 fL Normal 9.0-12.7 [facility] Platelets (Bld) [#/Vol] 187 10*3/uL Normal 150-400 [facility] RBC (Bld) [#/Vol] 3.66 10*6/uL Low 4.20-6.00 [facility] WBC (Bld) [#/Vol] 6.44 10*3/uL Normal 3.70-11.00 [facility] [facility] CONSULT HNO ID: [id number] Author: Dickson Rutledge Service: Hematology/Oncology Author Type: Physician Type: Consults Filed: 07/10/2020 3:35 PM Note Text: Hematology and Oncology Staff Note I have personally performed a face to face assessment of the patient and have reviewed the note of Claudia DURAN. I have discussed the case and management of the patient's care with the PA. My mckinney findings include: 65 year old male presenting with upper abdominal pain and jaundice. He was evaluated at [facility] and discovered to have a large periportal, pancreatic mass causing bile duct obstruction. 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 Final pathology, cytogenetic and FISH studies are pending. In the interim, he was transferred to [facility] for consideration of ERCP or PTHC to relieve his biliary obstruction. He denies any fevers or chills. However he has been losing weight. No fevers chills or night sweats. Patient's review of systems, past medical and surgical history, Family and Social history, medications and allergies reviewed. Prostate Cancer, COPD, Hepatitis C. CT abdomen and pelvis from July 08, 2020 obtained at [facility] radiology revealed a 7.5 x 5.6 x 8.3 cm soft tissue mass in the pancreatic head with extension to the herman hepatis. There was vascular encasement and common bile duct compression by the mass with intrahepatic biliary dilatation. Laboratory evaluation reveals white count of 6.4, hemoglobin 11.6 g/dL, platelet count of 187,000. Albumin is 3.6, calcium 9.1, alkaline phosphatase 220, total bilirubin 8.4, creatinine 0.91. Impression and Recommendations: Aggressive B cell non-Hodgkin's lymphoma in the peripancreatic region and hepatic hilum Obstructive jaundice due to lymphoma causing common bile duct obstruction Weight loss Diagnosis of aggressive non-Hodgkin's lymphoma was discussed with patient. Although treatable and potentially curable, treatment requires intensive chemotherapy and immunotherapy. There is a risk of treatment associated morbidity and mortality. Furthermore his elevated bilirubin makes starting chemotherapy medications too high risk to administer until bile duct obstruction is resolved. I recommend urgent initiation of steroids and initial chemotherapy with low-dose cyclophosphamide in hopes to open the biliary obstruction which would then allow us to provide full dose chemotherapy. In the interim we will wait for final pathology report. If bilirubin fails to normalize with initial therapy, [facility] Recommend: -Complete outside pathology evaluation and obtain slides and blocks for review at [facility] -Start staging with CT scans and bone marrow aspiration and biopsy -Echocardiography to evaluate LV ejection fraction -Central venous access -Start IV fluids -initially with saline and consider bicarbonate drip once potassium is corrected -Solu-Medrol 120 mg IV daily -Allopurinol 300 mg daily -Hepatitis C titers. Will need infectious disease consultation for suppressive therapy of his hepatitis C for safe administration of chemoimmunotherapy. -Monitor tumor lysis labs twice a day I discussed my findings and recommendations with patient and the medicine team. Signature: Dickson Rutledge MD Date: 07/10/2020 Time: 3:17 PM HEMATOLOGY / ONCOLOGY After 3pm, please page the on-call [phone] SERVICE DATE: 07/10/2020 SERVICE TIME: 2:21 PM REASON FOR CONSULT: Pancreatic Mass/LN REQUESTING PHYSICIAN: Dr. Ponce PRIMARY CARE PHYSICIAN: No primary care provider on file. Subjective Mr. Killian is a 65 year old male with past medical history significant for Prostate Cancer, COPD, Hepatitis C, presenting with pancreatic mass, jaundice and abdominal pain. Mr. Killian states this has been on going for one month. He had multiple ER visits for abdominal pain at [place]. A CT abdomen was obtained and demonstrated a possible pancreatic mass vs enlarged LN and biliary obstruction. He had a CT guided portahepatic LN biopsy at [facility] last week and results pending per patient. He transferred his care to our hospital to expedite care. He states his main complaint is abdominal and back pain, along with jaundice. He states the pain has steadily worsened over the month. Its in the abdomen, but also shoots into the back and around to the back. No nausea or vomiting. Last BM 4 days ago, but he is taking narcotics for pain. No fevers or chills. No SOB, but does say when the pain is bad it is difficult to breath. No edema, difficulties urinating. He states he was started on a Fentanyl patch, 25mcg and was taking percocet - 1 tab every 4 hours. He would sometimes take 2 Tylenol Pms (500mg) at night to help sleep because of the pain. Denies NSAIDs, alcohol. Does smoke cigarettes. He has had a 10lb weight loss over the month. Denies night sweats. No new lumps per patient Of note he did undergo surgery, radiation and lupron injection for his prostate cancer, of which he states he has not had lupron in a few years and his last PSA was <1, per patient. [facility] - [phone] PAST MEDICAL HISTORY Diagnosis Date - COPD (chronic obstructive pulmonary disease) (HCC) Mild - Fistula - Prostate cancer (HCC) 12/2011 PAST SURGICAL HISTORY Procedure Laterality Date - COLONOSCOP W/ OR W/O [facility] SPEC 02/15/16 Colonoscopy - PAST SURGICAL HISTORY OF appendectomy - PAST SURGICAL HISTORY OF tonsilectomy - PROSTATECTOMY, SIMPLE, BENIGN 01/03/12 prostate removed FAMILY HISTORY Problem Relation Age of Onset - Heart Father of [place] age 80 - Heart Paternal Grandmother - Heart Paternal Grandfather Social History Tobacco Use - Smoking status: Current Every Day Smoker Packs/day: 0.50 Years: 43.00 Pack years: 21.50 Types: Cigarettes Start date: 01/01/1979 - Smokeless tobacco: Never Used Substance Use Topics - Alcohol use: Yes Comment: drinks 1 drink per month - Drug use: No - budesonide-formoterol (SYMBICORT) 160-4.5 mcg/actuation inhaler, Inhale 2 Puffs as instructed twice daily., Disp: , Rfl: - oxyCODONE-acetaminophen (PERCOCET) 5-325 mg tablet, Take 1 tablet by mouth every 4 hours as needed., Disp: , Rfl: - fentaNYL (DURAGESIC) 25 mcg/hr, Apply 1 Patch as directed every 72 hours., Disp: , Rfl: - docusate sodium (COLACE) 100 mg capsule, Take 100 mg by mouth once daily., Disp: , Rfl: - leuprolide, 6 month, (LUPRON DEPOT, 6 MONTH,) sykt IM syringe kit, Inject 45 mg intramuscularly as directed. every 6 months., Disp: 1 Kit, Rfl: 11 - fluticasone-salmeterol (ADVAIR DISKUS) 250-50 mcg/dose dsdv, Inhale 1 Puff as instructed twice daily. Rinse and gargle mouth after use with water., Disp: 1 Inhaler, Rfl: 5 - albuterol HFA (PROAIR HFA) 90 mcg/actuation inhaler, Inhale 2 Puffs as instructed every 4 hours as needed., Disp: 1 Inhaler, Rfl: 11 - IBUPROFEN ORAL, Take by mouth. , Disp: , Rfl: - aspirin(ADULT LOW DOSE ASPIRIN 81 MG TAB, DELAYED RELEASE), Take one(1) tablet daily., Disp: , Rfl: 0 Current Facility-Administered Medications Medication Dose Route Frequency - dextrose 5% in NaCl 0.45% iv infusion 75 mL/hr INTRAVENOUS CONTINUOUS - ondansetron (PF) 4 mg injection (ZOFRAN) 4 mg INTRAVENOUS q 4 H PRN - fentaNYL 50 mcg/mL 25 mcg injection (SUBLIMAZE) 25 mcg INTRAVENOUS q 3 H PRN - nicotine 14 mg/24 hr 1 Patch (NICODERM) 1 Patch TRANSDERMAL DAILY And - nicotine -- REMOVE patch OTHER DAILY And - nicotine - verify patch OTHER q 8 H - atropine 0.5 mg injection 0.5 mg INTRAVENOUS PRN(NO DISPENSE) - amiodarone 150 mg in D5W 100 mL (NEXTERONE) 150 mg INTRAVENOUS PRN(NO DISPENSE) - fluticasone-vilanterol 100-25 mcg/dose 1 Inhalation (BREO ELLIPTA) 1 Inhalation INHALATION DAILY - docusate sodium 100 mg cap(s) (COLACE) 100 mg ORAL DAILY - [START ON 07/11/2020] fentaNYL 25 mcg/hr 1 Patch (DURAGESIC) 1 Patch TRANSDERMAL q 72 HR And - [START ON 07/12/2020] fentaNYL - REMOVE PATCH OTHER q 72 HR And - fentaNYL - VERIFY PATCH OTHER q 8 H - oxyCODONE-acetaminophen 5-325 mg 1 tablet (PERCOCET) 1 tablet ORAL q 4 H PRN - cloNIDine HCl 0.1 mg tab(s) (CATAPRES) 0.1 mg ORAL q 8 H - allopurinol 300 mg tab(s) (ZYLOPRIM) 300 mg ORAL DAILY - NaCl 0.9% iv infusion 100 mL/hr INTRAVENOUS CONTINUOUS - perflutren lipid microspheres 1.1 mg/mL 1.3 mL injection (DEFINITY) 1.3 mL INTRAVENOUS DIRECTED PRN - iv contrast (radiology procedure) INTRAVENOUS DIRECTED PRN And - enteric contrast (radiology procedure) ORAL DIRECTED PRN - lidocaine (PF) 10 mg/mL (1 %) 10-20 mg injection (XYLOCAINE) 1-2 mL SUBCUTANEOUS ONCE - sodium chloride 0.9 % (flush) 10 mL (BD POSIFLUSH) 10 mL INTRAVENOUS q 12 H - sodium chloride 0.9 % (flush) 20 mL (BD POSIFLUSH) 20 mL INTRAVENOUS PRN - methylPREDNISolone sod succinate(PF) 120 mg injection (SOLU-Medrol) 120 mg INTRAVENOUS DAILY - nystatin 5 mL oral liquid (MYCOSTATIN) 5 mL ORAL QID - pantoprazole DR 20 mg tab(s) (PROTONIX) 20 mg ORAL DAILY (6 AM) - lidocaine 10 mg/mL (1 %) 200 mg injection (XYLOCAINE) 20 mL INTRADERMAL premed once - senna 8.6 mg tab(s) (SENOKOT) 8.6 mg ORAL BID - bisacodyl 10 mg suppository (DULCOLAX) 10 mg RECTAL DAILY PRN - magnesium hydroxide 400 mg/5 mL 30 mL (MOM) 30 mL ORAL DAILY PRN - potassium chloride ER 40 mEq tab(s) (K-DUR, KLOR-CON) 40 mEq ORAL ONCE Allergies As of Date: 07/09/2020 Allergen Noted Reaction DOXYCYCLINE 12/30/2014 GI Upset Fully Assessed 07/09/2020 COMPLETE REVIEW OF SYSTEMS: PAIN ASSESSMENT: CURRENTLY HAVING PAIN; LOCATION/DISTRIBUTION: abdomen, radiates to back, sharp, constant GENERAL: Unintentional weight loss, Fatigue HEENT: Negative for frequent or significant headaches, No changes in hearing or vision, no nose bleeds or other nasal problems NECK: Negative for lumps, goiter, pain and significant neck swelling RESPIRATORY: Negative for cough, hemoptysis, wheezing, COPD, dyspnea or shortness of breath CARDIOVASCULAR: Negative for chest pain, leg swelling, hypertension, CHF or palpitations GI: No nausea, vomiting, or diarrhea and Does have some constipation MUSCULOSKELETAL: Negative for joint pain or swelling, back pain or muscle pain and only has the back pain from the abdominal pain SKIN: Negative for lesions, rash, and itching HEMATOLOGY/LYMPHOLOGY: Negative for prolonged bleeding, bruising easily or swollen nodes Objective PHYSICAL EXAM: Physical Exam Performed: GENERAL: Alert, no distress, cooperative, initially lying on the floor because it helped his pain the most SKIN: Skin color, texture, turgor normal. No rashes or lesions., Positive findings: Jaundice EYES: PERRLA, EOMI, Positives scleral icterus OROPHARYNX: Lips, mucosa, and tongue normal. Teeth and gums normal. Oropharynx normal. NECK: Supple LUNGS: Lungs clear to auscultation, Good diaphragmatic excursion CARDIAC: Normal S1 and S2; no rubs, murmurs, or gallops ABDOMEN: Positive findings: tenderness: moderate, voluntary guarding and involuntary guarding location: epigastric EXTREMITIES: Extremities normal, no deformities, edema, clubbing or skin discoloration. Good capillary refill., No ulcers BP 177/87 Pulse 72 Temp (Src) 98.1 (Oral) Resp 18 Wt 134 lb 8 oz (61.0kg) SpO2 99% O2 Therapy: Room Air DATA: Diagnostic tests reviewed for today's visit: Most recent labs and imaging results. LABORATORY DATA Recent Labs 07/10/20 0542 07/09/202121 WBC 6.44 7.90 RBC 3.66* 4.23 HB 11.6* 13.4 HCT 34.2* 39.4 PLT 187 237 MCV 93.4 93.1 MCH 31.7 31.7 MCHC 33.9 34.0 RDWCV 13.9 13.9 MPV 11.4 11.7 NEUTP 67.8 70.2 ABSNEUT 4.36 5.55 LYMPHP 16.1 14.3 MONOP 10.1 9.4 EODINP 4.8 5.2 BASOP 1.2 0.9 ABSMONO 0.65 0.74 ABSEOSIN 0.31 0.41 ABSBASO 0.08 0.07 Recent Labs 07/10/20 0542 07/09/202121 NA 137 139 K 2.5* 3.2* CHLOR 98 100 CO2 24 27 CREAT 0.91 0.95 BUN 12 12 GLUC 315* 99 TPROT 5.8* 6.9 ALB 3.6* 4.2 CA 9.1 10.8* ALKPHOS 220* 258* TBILI 8.4* 9.8* AST 115* 144* ALT 182* 219* PTSEC 11.4 11.0 INR 1.1 1.0 Component Latest Ref Rng AND Units 07/09/2020 07/10/2020 WBC 3.70 - 11.00 k/uL 6.44 RBC 4.20 - 6.00 m/uL 3.66 (L) Hemoglobin 13.0 - 17.0 g/dL 11.6 (L) Hematocrit 39.0 - 51.0 % 34.2 (L) MCV 80.0 - 100.0 fL 93.4 MCH 26.0 - 34.0 pG 31.7 MCHC 30.5 - 36.0 g/dL 33.9 RDW-CV 11.5 - 15.0 % 13.9 Platelet Count 150 - 400 k/uL 187 MPV 9.0 - 12.7 fL 11.4 Neut% % 67.8 Abs Neut (ANC) 1.45 - 7.50 k/uL 4.36 Lymph% % 16.1 Abs Lymph 1.00 - 4.00 k/uL 1.04 [place]% % 10.1 Abs [place] <0.87 k/uL 0.65 Eosin% % 4.8 Abs Eosin <0.46 k/uL 0.31 Baso% % 1.2 Abs Baso <0.11 k/uL 0.08 Nucleated Reds 0 /100 WBC 0.0 Absolute nRBC <0.01 k/uL <0.01 Diff Type Auto Diff Color Yellow Dark Yellow (A) Clarity Clear Turbid (A) Glucose, Urine Negative mg/dL Negative Bilirubin, Urine Negative 2+ (A) Ketones, Urine Negative Negative Specific [place], Ur 1.005 - 1.030 1.018 Hemoglobin/Blood,Ur Negative Negative pH, Urine 5.0 - 8.0 6.5 Protein, Urine Negative 1+ (A) Urobilinogen 0.2 - 1.0 E.U./dL 1+ Nitrites Negative Negative Leukest Negative Negative WBC, Urine 0 - 5 /HPF 6-10 (A) RBC, Urine 0 - 3 /HPF 0-3 Cast 0 /LPF SEE COMMENT (A) Crystal Negative /HPF SEE COMMENT (A) Urine, Other /HPF SEE COMMENT Protein, Total 6.3 - 8.0 g/dL 5.8 (L) Albumin 3.9 - 4.9 g/dL 3.6 (L) Calcium 8.5 - 10.2 mg/dL 9.1 Bilirubin, Total 0.2 - 1.3 mg/dL 8.4 (H) Alkaline Phosphatase 38 - 113 U/L 220 (H) AST 14 - 40 U/L 115 (H) Glucose 74 - 99 mg/dL 315 (H) BUN 9 - 24 mg/dL 12 Creatinine 0.73 - 1.22 mg/dL 0.91 Sodium 136 - 144 mmol/L 137 Potassium 3.7 - 5.1 mmol/L 2.5 (L) Chloride 97 - 105 mmol/L 98 CO2 22 - 33 mmol/L 24 Anion Gap 9 - 18 mmol/L 15 ALT 10 - 54 U/L 182 (H) eGFR- >60 eGFR-All Other Races . 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 Ackerman, and discussed. 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 Path was sent out for special consult - Once results are back, we will need to get path/bx sent to [facility] for second review - Will obtain workup --> Bmbx, CT CAP, ECHO and insert PICC line. Will need port once outpatient - Will obtain labs --> Hep remote panel, Uric Acid, LDH, urine pH. Will get CBC and LFTs daily. Will get BMP, Uric Acid and Phos BID - Start him on IVFs at 100cc/hr, consider increase pending TLS. - Start Allopurinol 300mg daily, Solumderol 120mg daily IV (including today), nystatin and a PPI - Will hold off on biliary drain - IR biliary duct stent/drain for now. Hoping will not need because chemo/steroids will shrink mass. May need in future - Will initiate Cytoxan therapy tomorrow, 07/10/2020 at 250 or 300mg. Will tailor treatment once final path results - Monitor labs and patient closely, especially for TLS once chemotherapy initiates. Potassium currently low and receiving IV supplementation, need to be judicious post chemo d/t TLS Elevated liver transaminase level - Related to enlarged LN and biliary obstruction - Monitor labs daily - if worsening bilirubin will need IR stent placement - Avoid Tylenol for now Jaundice Related to elevated bilirubin Malignant neoplasm of prostate (HCC) In remission per patient History of radiation, surgery and lupron injections Pain -Related to lymphoma - Palliative consulted - appreciate recommendations Staff with Dr. Rutledge. Further recommendations by attending to follow. Plan not final until seen by attending. SIGNATURE: Claudia Arguelles PATIENT NAME: Alejandro Killian DATE: July 10, 2020 TIME: 2:21 PM PAGER: [phone] After hours please page the [employer] Manager @ [phone] Normal [facility] CONSULT HNO ID: [id number] Author: Evens Singh Service: Palliative Care Author Type: Physician Type: Consults Filed: 07/10/2020 5:07 PM Note Text: PALLIATIVE MEDICINE INITIAL CONSULT To contact the [place] palliative medicine service from 5p - 8a on weekdays and anytime during the weekend, please page [phone] SERVICE DATE: 07/10/2020 PATIENT NAME: Alejandro CAVANAUGHN: [id number] PALLIATIVE MEDICINE OUTPATIENT PROVIDER: No CURRENT ATTENDING PROVIDER: Sharon Guzman REFERRING PHYSICIAN: Jaiden Ponce REASON FOR CONSULT/CHIEF CONSULT COMPLAINT: Pain management Primary Site of Disease/Medical Illness: Large pancreatic mass extending to the duodenum, liver, right obstruction with left main obstruction and left sided dilation of ducts Pertinent Medical History: Obstructive jaundice Subjective HISTORY OF PRESENT ILLNESS: Alejandro Killian is a 65 year old male with a PMHx of prostate cancer s/p prostatectomy, hep c s/p treatment, COPD, HTN, rectourethral fistula, HLD, tobacco abuse presents for obstructive jaundice. Has been having abdominal pain since the end of May 2020. Stated that his pain is located in the midepigastric region radiating to his back and both flanks. Patient appears to be a poor historian as he is giving conflicting information. History obtained from previous encounters. Presented to [facility] on 07/07/2020 from [facility]. Patient was referred to ER by oncologist (Dr. Bravo) for jaundice. CT of abdomen showed progressive enlargement of epigastric mass as well as periportal mass with evidence of intrahepatic biliary ductal dilation more prominent of left hepatic ducts. Biopsied mass on 07/03/2020 then transferred to [facility] for further workup. GI consulted and recommended ERCP with stent placement. Did not have coverage at that time, so patient eventually came to [place]. Patient waiting for [facility] with brushing. Palliative medicine consulted for pain management. On individual interview patient was agitated and confused. Patient stated that he was transferred here for a biopsy because [facility] did nothing for me. Stated that he has had 2-3 visits with pain management (Marcus Garces MD) for management of his abdominal pain. Stated that he was prescribed Percocet once every 4 hours. When he felt that was not adequate management he went back and was prescribed a Fentanyl patch in addition to the Percocet. Stated that at [facility] they changed his pain management to 2 percocet every 6 hours in addition to the patch. Rated his pain 4/10 down from his usual 10/10. He has not had a BM in 4 days, usually has one daily. Denied nausea, vomiting, chest pain, SOB. When Dr. Singh and I went back to interview him together, he informed us that his biopsy came back as lymphoma. Stated that oncology will try to shrink the mass medically instead of [facility]. Rated his pain 4-5/10 in the midepigastric region radiating to his back. Stated that he has lost about 10lbs this past month. He has had some trouble eating due to his abdominal pain. Continues to insist on taking 2 percocet every 6 hours. Patient was educated about the importance of preventing possible acetaminophen toxicity and worsening constipation. Patient was agreeable to maintaining current pain management plan and reassessing at a later date. PAST MEDICAL HISTORY Diagnosis Date - COPD (chronic obstructive pulmonary disease) (HCC) Mild - Fistula - Prostate cancer (HCC) 12/2011 PAST SURGICAL HISTORY Procedure Laterality Date - COLONOSCOP W/ OR W/O [facility] SPEC 02/15/16 Colonoscopy - PAST SURGICAL HISTORY OF appendectomy - PAST SURGICAL HISTORY OF tonsilectomy - PROSTATECTOMY, SIMPLE, BENIGN 01/03/12 prostate removed Current Facility-Administered Medications Medication Dose Route Frequency - dextrose 5% in NaCl 0.45% iv infusion 75 mL/hr INTRAVENOUS CONTINUOUS - ondansetron (PF) 4 mg injection (ZOFRAN) 4 mg INTRAVENOUS q 4 H PRN - fentaNYL 50 mcg/mL 25 mcg injection (SUBLIMAZE) 25 mcg INTRAVENOUS q 3 H PRN - nicotine 14 mg/24 hr 1 Patch (NICODERM) 1 Patch TRANSDERMAL DAILY And - nicotine -- REMOVE patch OTHER DAILY And - nicotine - verify patch OTHER q 8 H - atropine 0.5 mg injection 0.5 mg INTRAVENOUS PRN(NO DISPENSE) - amiodarone 150 mg in D5W 100 mL (NEXTERONE) 150 mg INTRAVENOUS PRN(NO DISPENSE) - fluticasone-vilanterol 100-25 mcg/dose 1 Inhalation (BREO ELLIPTA) 1 Inhalation INHALATION DAILY - docusate sodium 100 mg cap(s) (COLACE) 100 mg ORAL DAILY - [START ON 07/11/2020] fentaNYL 25 mcg/hr 1 Patch (DURAGESIC) 1 Patch TRANSDERMAL q 72 HR And - [START ON 07/12/2020] fentaNYL - REMOVE PATCH OTHER q 72 HR And - fentaNYL - VERIFY PATCH OTHER q 8 H - oxyCODONE-acetaminophen 5-325 mg 1 tablet (PERCOCET) 1 tablet ORAL q 4 H PRN - potassium chloride iv piggyback 20 mEq/100 mL 20 mEq INTRAVENOUS q 1 H - cloNIDine HCl 0.1 mg tab(s) (CATAPRES) 0.1 mg ORAL q 8 H - allopurinol 300 mg tab(s) (ZYLOPRIM) 300 mg ORAL DAILY - NaCl 0.9% iv infusion 100 mL/hr INTRAVENOUS CONTINUOUS - perflutren lipid microspheres 1.1 mg/mL 1.3 mL injection (DEFINITY) 1.3 mL INTRAVENOUS DIRECTED PRN - iv contrast (radiology procedure) INTRAVENOUS DIRECTED PRN And - enteric contrast (radiology procedure) ORAL DIRECTED PRN - lidocaine (PF) 10 mg/mL (1 %) 10-20 mg injection (XYLOCAINE) 1-2 mL SUBCUTANEOUS ONCE - sodium chloride 0.9 % (flush) 10 mL (BD POSIFLUSH) 10 mL INTRAVENOUS q 12 H - sodium chloride 0.9 % (flush) 20 mL (BD POSIFLUSH) 20 mL INTRAVENOUS PRN - methylPREDNISolone sod succinate(PF) 120 mg injection (SOLU-Medrol) 120 mg INTRAVENOUS DAILY - nystatin 5 mL oral liquid (MYCOSTATIN) 5 mL ORAL QID - pantoprazole DR 20 mg tab(s) (PROTONIX) 20 mg ORAL DAILY (6 AM) ALLERGIES Allergen Reactions - Doxycycline GI Upset FAMILY HISTORY Problem Relation Age of Onset - Heart Father of [place] age 80 - Heart Paternal Grandmother - Heart Paternal Grandfather Family History of Substance Misuse: not on file SOCIAL HISTORY not on file Drug Use: No Alcohol Use: Yes (drinks 1 drink per month) Tobacco Use: 0.5 packs/day, for 43 years. Types: Cigarettes REVIEW OF SYSTEMS Modified ESAS ([place] Symptom Assessment Scale): Information Provided By: Patient Pain: Moderate Nausea: None Loss of Appetite: Moderate Constipation: Moderate Shortness of Breath: None Drowsiness: None Tiredness: None Depression: None Anxiety: None How you feel overall: Good Other problem: None Constitutional: Positive for weight change HEENT: Denies dizziness, Denies acute change in vision and Denies taste changes Cardiovascular: Denies chest pain, Denies palpitations and Denies edema Respiratory: Denies cough, Denies wheezing and Denies hemoptysis Gastrointestinal: Denies nausea, Positive for abdominal pain and Positive for constipation Genitourinary: Denies hematuria, Denies incontinence and Denies urinary retention Musculoskeletal: Denies joint pain, Denies bone pain and Denies swelling Neurological: Denies significant headache and Denies gait impairment Psycho/Sexual: Denies depression and Denies anxiety Skin: Denies rash and Positive for jaundice Objective PHYSICAL EXAMINATION Vital Signs: BP 177/87 Pulse 72 Temp 36.7 ?C (98.1 ?F) (Oral) Resp 18 Wt 61 kg (134 lb 8 oz) SpO2 99% BMI 21.07 kg/m? General Appearance: Uncomfortable and Restless Skin: Normal warmth and Jaundice Eyes: Symmetrical lids, No conjunctival injection and Icterus HENT: Atraumatic external nose and ears Neck: Trachea midline, No masses and Full range of motion Resp: Unlabored respiratory effort, Clear to auscultation bilaterally and Normal excursion CV: Regular rate and rhythm, No lower extremity edema and No murmur GI: Soft and Tender to palpation Musculoskeletal: Normocephalic, No gross deformity and Gait intact Lymphatics: No cervical, axillary, or inguinal lymphadenopathy Neuro: No focal weakness and Sensation grossly intact Psych: Oriented to: Time, Place, Person and Situation and Mood and affect: normal DATA Diagnostic tests and information reviewed for today's visit: Most recent labs and imaging results. Impression/Recommendations Alejandro Killian is a 65 year old male admitted on 07/09/2020 for obstructive jaundice. Care is complicated by new diagnosis of Non-Hodgkin's lymphoma. Palliative Medicine has been consulted to assist with pain and symptom management. Non-Hodgkin lymphoma of intra-abdominal lymph nodes - Oncology consulted ---- bone marrow biopsy done today ---- plans to start chemotherapy, possibly this weekend - Solu-medrol 120 mg IV daily - Alloqurinol 300 mg daily - Monitor tumor lysis labs twice a day - ID consult to monitor hep C Pain - diffuse, abdominal pain radiating to the flank - Likely secondary to lymphoma - Continue Percocet 5-325 mg q 4hrs - Continue Duragesic patch 25 mcg/hr once every 72 hrs - Continue Sublimaze 25 mcg q 3hrs prn Constipation - Likely due to opioid therapy - Continue colace 100 mg once daily - Start senna 8.6 mg BID - Bisacodyl 10mg AL once daily prn - Magnesium hydroxide 1 packet daily prn HTN - Likely secondary to pain - No dx of HTN - on clonidine per primary Hypokalemia - Replete - IV x3, recheck - Add on mag - managed by primary COPD - on BREO Nicotine dependence - Nicotine patch - Info to quit Existence of Advance Directives: No - not interested Patient will not need outpatient palliative follow up. Patient will likely need to follow up with his previous Pain Management doctor. Plan of Care discussed with: Provider, RN, Patient Thank you for allowing us to participate in the care of this patient. Recommendations will be communicated back to the consulting service by way of shared electronic medical record. SIGNATURE: Ashley Hernandez Ms I have reviewed the history and physical obtained and documented by Ashley Hernandez [facility], and I personally participated in all of the mckinney components. I have discussed the case and management of the patient's care with the student. The following comments revise or confirm relevant mckinney components. Note above has been edited by me. Furthermore, discussed oncology plans with Dr. Rutledge. Per Dr. Rutledge, patient plans to follow up with his oncologist in [place]. As he was being followed by pain management down there prior to admission, he will likely continue to follow with them. Palliative Medicine will continue to follow during this admission to assist with symptom management. NAME: Mali Singh MD PATIENT NAME: Alejandro Killian DATE: July 10, 2020 TIME: 5:02 PM PAGER/CONTACT #: [phone] [facility] CONSULT HNO ID: [id number] Author: Jaiden Ponce Service: Gastroenterology Author Type: Physician Type: Consults Filed: 07/10/2020 10:40 AM Note Text: Gastroenterology Consult Note PATIENT NAME: Alejandro Killian SERVICE DATE: 07/10/2020 SERVICE TIME: 10:27 AM REASON FOR CONSULT: obstructive jaundice PRIMARY CARE PHYSICIAN: No primary care provider on file. ASSESSMENT/PLAN: Obstructive jaundice large pancreatic mass extending to the duodenum, liver, right obstruction with left main obstruction and left sided dilation of ducts. Images reviewed with radiology- Not amenable to ERCP. Recommend IR PTHC with brushing. Ca19-9, CEA Monitor LFTs, INR Consult Hematology Oncology. Palliative care for pain control Plan discussed with patient SUBJECTIVE Mr. Killian is a 65 year old male who presents for obstructive jaundice. He has a history of abdominal pain since May 2020. Notes a right-sided and midepigastric pain. Feels that it is back. Sometimes worse with eating. No other exacerbating or alleviating factors. Lost 6 pounds. Over the last few weeks became jaundiced. Notes dark urine and light stool. He is current smoker. He wants to quit. She did undergo CT scan at an outside institution. I reviewed the images with radiology staff. There is a large pancreatic or peripancreatic mass extending up into the liver. The entire right side appears to be completely obstructed. There is dilation of the ducts towards the periphery of the left lobe of the liver. He has no chest pain fevers or chills. Not short of breath. Does note some fatigue. PAST MEDICAL HISTORY: PAST MEDICAL HISTORY Diagnosis Date - COPD (chronic obstructive pulmonary disease) (HCC) Mild - Fistula - Prostate cancer (HCC) 12/2011 PAST SURGICAL HISTORY: PAST SURGICAL HISTORY Procedure Laterality Date - COLONOSCOP W/ OR W/O [facility] SPEC 02/15/16 Colonoscopy - PAST SURGICAL HISTORY OF appendectomy - PAST SURGICAL HISTORY OF tonsilectomy - PROSTATECTOMY, SIMPLE, BENIGN 01/03/12 prostate removed FAMILY HISTORY: FAMILY HISTORY Problem Relation Age of Onset - Heart Father of [place] age 80 - Heart Paternal Grandmother - Heart Paternal Grandfather SOCIAL HISTORY: Social History Tobacco Use - Smoking status: Current Every Day Smoker Packs/day: 0.50 Years: 43.00 Pack years: 21.50 Types: Cigarettes Start date: 01/01/1979 - Smokeless tobacco: Never Used Substance Use Topics - Alcohol use: Yes Comment: drinks 1 drink per month - Drug use: No MEDICATIONS: Prior to Admission Medications: - budesonide-formoterol (SYMBICORT) 160-4.5 mcg/actuation inhaler, Inhale 2 Puffs as instructed twice daily., Disp: , Rfl: - oxyCODONE-acetaminophen (PERCOCET) 5-325 mg tablet, Take 1 tablet by mouth every 4 hours as needed., Disp: , Rfl: - fentaNYL (DURAGESIC) 25 mcg/hr, Apply 1 Patch as directed every 72 hours., Disp: , Rfl: - docusate sodium (COLACE) 100 mg capsule, Take 100 mg by mouth once daily., Disp: , Rfl: - leuprolide, 6 month, (LUPRON DEPOT, 6 MONTH,) sykt IM syringe kit, Inject 45 mg intramuscularly as directed. every 6 months., Disp: 1 Kit, Rfl: 11 - fluticasone-salmeterol (ADVAIR DISKUS) 250-50 mcg/dose dsdv, Inhale 1 Puff as instructed twice daily. Rinse and gargle mouth after use with water., Disp: 1 Inhaler, Rfl: 5 - albuterol HFA (PROAIR HFA) 90 mcg/actuation inhaler, Inhale 2 Puffs as instructed every 4 hours as needed., Disp: 1 Inhaler, Rfl: 11 - IBUPROFEN ORAL, Take by mouth. , Disp: , Rfl: - aspirin(ADULT LOW DOSE ASPIRIN 81 MG TAB, DELAYED RELEASE), Take one(1) tablet daily., Disp: , Rfl: 0 Current Facility-Administered Medications Medication Dose Route Frequency - dextrose 5% in NaCl 0.45% iv infusion 75 mL/hr INTRAVENOUS CONTINUOUS - ondansetron (PF) 4 mg injection (ZOFRAN) 4 mg INTRAVENOUS q 4 H PRN - fentaNYL 50 mcg/mL 25 mcg injection (SUBLIMAZE) 25 mcg INTRAVENOUS q 3 H PRN - nicotine 14 mg/24 hr 1 Patch (NICODERM) 1 Patch TRANSDERMAL DAILY And - nicotine -- REMOVE patch OTHER DAILY And - nicotine - verify patch OTHER q 8 H - atropine 0.5 mg injection 0.5 mg INTRAVENOUS PRN(NO DISPENSE) - amiodarone 150 mg in D5W 100 mL (NEXTERONE) 150 mg INTRAVENOUS PRN(NO DISPENSE) - fluticasone-vilanterol 100-25 mcg/dose 1 Inhalation (BREO ELLIPTA) 1 Inhalation INHALATION DAILY - docusate sodium 100 mg cap(s) (COLACE) 100 mg ORAL DAILY - [START ON 07/11/2020] fentaNYL 25 mcg/hr 1 Patch (DURAGESIC) 1 Patch TRANSDERMAL q 72 HR And - [START ON 07/12/2020] fentaNYL - REMOVE PATCH OTHER q 72 HR And - fentaNYL - VERIFY PATCH OTHER q 8 H - oxyCODONE-acetaminophen 5-325 mg 1 tablet (PERCOCET) 1 tablet ORAL q 4 H PRN CURRENT ALLERGIES: Allergies As of Date: 07/09/2020 Allergen Noted Reaction DOXYCYCLINE 12/30/2014 GI Upset Fully Assessed 07/09/2020 COMPLETE REVIEW OF SYSTEMS: GENERAL:+ weight loss, No malaise or fevers HEENT: Negative for frequent or significant headaches, No changes in hearing or vision, no nose bleeds or other nasal problems NECK: Negative for lumps, goiter, pain and significant neck swelling RESPIRATORY: Negative for cough, wheezing or shortness of breath. CARDIOVASCULAR: Negative for chest pain, leg swelling or palpitations. GI: see HPI : No history of dysuria, frequency or incontinence MUSCULOSKELETAL: Negative for joint pain or swelling, back pain or muscle pain. SKIN: Jaundice PSYCH: Negative for sleep disturbance, mood disorder and recent psychosocial stressors. HEMATOLOGY/LYMPHOLOGY: Negative for prolonged bleeding, bruising easily or swollen nodes. ENDOCRINE: Negative for cold or heat intolerance, polyuria, polydipsia NEURO: No history of headaches, syncope, paralysis, seizures or tremors OBJECTIVE PHYSICAL EXAM: Temp (24hrs), Av.8 ?C (98.3 ?F), Min:36.7 ?C (98.1 ?F), Max:37 ?C (98.6 ?F) BP 177/87 Pulse 62 Temp (Src) 98.1 (Oral) Resp 18 Wt 134 lb 8 oz (61.0kg) SpO2 99% O2 Therapy: Room Air General appearance: Thin Skin: Jaundice Head: normal Eyes: Anicteric sclera. Extraocular movements are intact. Oropharynx: Lips, mucosa, and tongue normal and gums normal, Neck: Supple, no adenopathy Lungs: clear to auscultation n Heart: RRR without murmur, gallop, or rubs. Abdomen: Normal abdominal exam, Abdomen soft, non-tender. Bowel sounds normal. No masses, organomegaly Extremities: Extremities normal. No deformities, edema, or skin discoloration. Good capillary refill. Musculoskeletal: No joint swelling, deformity, or tenderness, Muscular strength intact Peripheral pulses: Normal Neuro: Alert and Orientated X 3; No tremors; No speech abnormalities. The remainder of the physical exam is noncontributory. DATA: Diagnostic tests reviewed for today's visit: CBC, Coags, BMP, Mg, Phos Recent Labs 07/10/20 0542 07/09/20 2122 WBC 6.44 7.90 HB 11.6* 13.4 HCT 34.2* 39.4 PLT 187 237 INR 1.1 1.0 NA 137 139 K 2.5* 3.2* CHLOR 98 100 CO2 24 27 BUN 12 12 CREAT 0.91 0.95 GLUC 315* 99 CA 9.1 10.8* Liver Function, Amylase, AND Lipase Recent Labs 07/10/20 0542 07/09/202121 TPROT 5.8* 6.9 ALB 3.6* 4.2 ALT 182* 219* AST 115* 144* ALKPHOS 220* 258* TBILI 8.4* 9.8* SIGNATURE: Jaiden Ponce MD DATE: July 10, 2020 TIME: 10:27 AM [facility] CT ABDOMEN W IVCONon CT ABDOMEN W IVCON * * *Final Report* * * DATE OF EXAM: Jul 10 2020 4:18PM [facility] 0533 - CT ABDOMEN W IVCON / PROCEDURE REASON: Neoplasm: lymphoma * * * * Physician Interpretation * * * * RESULT: EXAMINATION: CT ABDOMEN WITH IV CONTRAST CLINICAL HISTORY: Lymphoma TECHNIQUE: CT of the abdomen was performed using standard technique, scanning from just above the dome of the diaphragm to the iliac crest. MQ: [id number]_[id number] Contrast: IV: 120 ml of Omnipaque 300 Oral: 500 ml of 50ML Omnipaque [address] Radiation dose: Integrated Dose-length product (DLP) for this visit = 160 mGy*cm. CT Dose Reduction Employed: Automated exposure control(AEC) and iterative recon COMPARISON: Outside CT 07/07/[address] [facility] [address] 01/29/2012 RESULT: There is a large mass in the gastrohepatic space predominantly RIGHT-sided encasing the celiac axis and superior mesenteric artery extending into the periportal space and probably invading the liver. The mass displaces the pancreatic neck and body anterior The mass also encases the main RIGHT and LEFT portal vein with narrowing of the upstream aspect of the portal vein. The. Dimensions of the mass are about 13.1 x 9.9 x 7.6 cm (1:42 and 3:31). Liver: Large abdominal mass associated with the liver as noted above. No satellite lesion. Mild decreased attenuation. Biliary: Mild dilatation central RIGHT hepatic biliary tract and moderate dilatation LEFT hepatic biliary tract. No dilatation of the extrahepatic biliary system. The gallbladder bladder is collapsed. There is probably generalized gallbladder wall thickening (with assessment limited by collapsed lumen). Spleen: No mass. No splenomegaly. Pancreas: No mass or duct dilation. No calcification. Pancreas displaced by the central abdominal mass as noted above Adrenals:No mass. Kidneys: No mass, calculus or hydronephrosis. GI tract: No dilation or wall thickening. Lymph nodes: Large central abdominal mass as noted above Mesentery/Peritoneum: No ascites Retroperitoneum: No free fluid Vasculature: The celiac axis and SMA are patent. The portal vein and branches, splenic vein, SMV, and hepatic veins are patent. Arterial atherosclerotic disease without aneurysm. Bones/Soft Tissues: No significant finding. Lower thorax: A chest CT performed will be reported separately. Horologist (topogram) images: Unremarkable. IMPRESSION: Large central abdominal mass which appears to be invading the liver. Associated vascular encasement and intrahepatic biliary dilatation. The findings are consistent with the provided diagnosis of lymphoma. Mild hepatic steatosis Transcribed Using Voice Recognition Transcribe Date/Time: Jul 10 2020 5:07P Dictated by: APOLLO LEMUS MD This examination was interpreted and the report reviewed and electronically signed by: APOLLO LEMUS MD on Jul 10 2020 5:17PM EST [id number] [facility] CT CHEST W IVCONon 0 CT CHEST W IVCON * * *Final Report* * * DATE OF EXAM: Jul 10 2020 4:18PM [facility] 0539 - CT CHEST W IVCON / PROCEDURE REASON: Neoplasm: lymphoma, staging * * * * Physician Interpretation * * * * RESULT: EXAMINATION: CHEST CT WITH CONTRAST Indication: Neoplasm: lymphoma, staging Technique: Spiral CT acquisition of the chest from the thoracic inlet to the upper abdomen following IV contrast. M: CTCW_4 Contrast: 120 mL Omnipaque [address] Dose-Length Product: 166 mGy*cm CT Dose Reduction Employed: Automated exposure control(AEC) and iterative recon Comparison: None available RESULT: Limitations: Respiratory motion Lines, tubes, and devices: None. Lung parenchyma and pleura: Some lung scarring and scattered bullous changes. No discrete alveolar consolidation or pleural effusion. Small subpleural and parenchymal nodular densities noted bilaterally. These vary between 3 mm and 4 mm. In the right lung this is noted on image 131, 142. In the left lung nodular density noted on image 113. No alveolar consolidation or pleural effusion Thoracic inlet, heart, and mediastinum: No lymphadenopathy in the axillary, mediastinal, or hilar regions. The thoracic aorta and main pulmonary artery are normal in caliber. The cardiac chambers are normal in size. Calcified atheromatous changes of the aorta and coronary arteries. No pericardial effusion or thickening. Bones and soft tissues: Some degenerative spine changes Upper abdomen: See CT abdomen report IMPRESSION: Some lung scarring and bullous changes No alveolar consolidation or pleural effusion Small pulmonary nodular densities No discrete mediastinal hilar or axillary adenopathy Transcribed Using Voice Recognition Transcribe Date/Time: Jul 10 2020 5:18P Dictated by: AMIE HUSAIN MD This examination was interpreted and the report reviewed and electronically signed by: AMIE HUSAIN MD on Jul 10 2020 6:06PM EST [id number] Normal [facility] Chromosome BMon 07-10-2020 Chromosome Analysis Duplicate request [facility] Comment on above: Result Comment: Acco unt Credited SUMEET 07/10/2020 AT 2233 Performed By: #### C HRBM ####[facility] [place], [place] [phone] Chromosome Analysis Sample was sent to [facility] performing laboratory. Please refer to order for miscellaneous sendout test for results. [facility] Comment on above: Result Comment: Acco unt Credited HROBY 11.18.20 1248 Performed By: #### C HRBM ####[facility] [place], [place] [phone] Comp Metabolic Panelon 07-10 Albumin [Mass/Vol] 3.6 g/dL Low 3.9-4.9 [facility] ALP [Catalytic activity/Vol] 220 U/L High 38-113 [facility] ALT [Catalytic activity/Vol] 182 U/L High 10-54 [facility] Anion gap [Moles/Vol] 15 mmol/L Normal 9-18 [facility] AST [Catalytic activity/Vol] 115 U/L High 14-40 [facility] Bilirubin [Mass/Vol] 8.4 mg/dL High 0.2-1.3 [facility] Calcium [Mass/Vol] 9.1 mg/dL Normal 8.5-10.2 [facility] Chloride [Moles/Vol] 98 mmol/L Normal 97-105 [facility] CO2 [Moles/Vol] 24 mmol/L Normal 22-33 [facility] Creatinine [Mass/Vol] 0.91 mg/dL Normal 0.73-1.22 [facility] eGFR- Amer. >60 Normal [facility] GFR/1.73 sq M predicted among non-blacks MDRD (S/P/Bld) [Vol rate/Area] mL/min/{1.73_m2} Normal [facility] Comment on above: Result Comment: eGFR (Estimated GFR) Units of measure: mL/min/1.73 meters squared eGFR is derived from the reexpressed MDRD Study equation using the following parameters: serum creatinine, age, gender and race. The creatinine assay has been calibrated to be traceable to IDMS. An eGFR <60 mL/min/1.73m2 for >3 months is consistent with chronic kidney disease. Refer to KDOQI guidelines for clinical interpretation. In patients with unstable renal function, e.g. those with acute kidney injury, the eGFR may not accurately reflect actual GFR. 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 [facility] Comment on above: Result Comment: This test was developed and its performance characteristics determined by [facility]'s [facility] [place]. This test has been authorized by FDA under an Emergency Use Authorization (EUA). This test has been validated in accordance with the FDA's Guidance Document Policy for Diagnostics Testing in Laboratories Certified to Perform High Complexity Testing under CLIA prior to Emergency use Authorization for Coronavirus Disease 2019 during the Public Health Emergency issued on November 09, 2019. Performed By: #### C OVID #### [facility] [address] [place], [place] [address] COVID 19 Source FISH HATCHERY MANAGER UPPER RESPIRATORY TR ACT SWAB Normal [facility] Comment on above: Performed By: #### C OVID #### [facility] [address] [place], [place] [address] DNA Ext Bn Marrow BCon 07-10 WBC (Bld) [#/Vol] (NOTE) Normal [facility] Comment on above: Result Comment: This specimen was received and successfully processed for future DNA purification should molecular testing be needed. Specimens will be available for 3 years from date of collection. To order testing on this specimen for [facility] patients, please place an [facility] order for DNA and RNA for Clinical Testing ([id number]). To order testing for patients outside of the [facility] system, please request DNA and RNA for Clinical Testing, order code [id number]. If additional paperwork is required for testing, please send completed forms via secure email to [email or web address]. Performed By: #### N CELESTE ALMONTE ####[facility] [address] [place], [place] [phone] Flow Cyto Hold Sampleon 06-13 Flow Cyto Hold Sample A bone marrow sample was received for potential flow cytometry studies. Following morphologic review of the bone marrow, flow cytometric studies will be ordered by the hematopathologist if testing is indicated. Please see the corresponding bone marrow surgical pathology report. [facility] Comment on above: Result Comment: [id number] Performed By: #### N CELESTE ALMONTE ####[facility] [address] [place], [place] [phone] HISTORY PHYSICALon 0 HISTORY PHYSICAL HNO ID: [id number] Author: Mario Yanes Service: General Internal Medicine Author Type: Physician Type: HANDP Filed: 07/10/2020 10:19 PM Note Text: MEDICINE HISTORY AND PHYSICAL [facility] PATIENT NAME: Alejandro Killian Admission Date: 07/09/2020 SERVICE DATE: July 10, 2020 SERVICE TIME: 2:30 PM Patient Location: [facility]-[id number] Continuation of [facility] note. CHIEF COMPLAINT: Jaundice PRIMARY CARE PHYSICIAN: Berna Manning MD ([place], [place]) HISTORY OF PRESENT ILLNESS Alejandro Killian is a pleasant 65-year-old with newly-diagnosed, [id number]-aeimwaz non-Hodgkin's lymphoma. He initially presented earlier this month with a large pancreatic mass resulting in jaundice. PAST MEDICAL HISTORY Diagnosis Date - COPD (chronic obstructive pulmonary disease) Mild - HTN - Prostate cancer 12/2011 Tobacco Use Disorder Urinary Retention Renal Cyst Bladder Wall Thickening Malignant Neoplasm of Prostate (Hcc) Rectourethral Fistula Hyperlipidemia PAST SURGICAL HISTORY Procedure Laterality Date - COLONOSCOP W/ OR W/O [facility] SPEC 02/15/16 Colonoscopy - PAST SURGICAL HISTORY OF appendectomy - PAST SURGICAL HISTORY OF tonsilectomy - PROSTATECTOMY, SIMPLE, BENIGN 01/03/12 prostate removed FAMILY HISTORY Problem Relation Age of Onset - Heart Father of [place] age 80 - Heart Paternal Grandmother - Heart Paternal Grandfather Social History Tobacco Use - Smoking status: Current Every Day Smoker Packs/day: 0.50 Years: 43.00 Pack years: 21.50 Types: Cigarettes Start date: 01/01/1979 - Smokeless tobacco: Never Used Substance Use Topics - Alcohol use: Yes Comment: drinks 1 drink per month - Drug use: No MEDICATIONS PRIOR TO ADMISSION: - budesonide-formoterol (SYMBICORT) 160-4.5 mcg/actuation inhaler, Inhale 2 Puffs as instructed twice daily., Disp: , Rfl: - oxyCODONE-acetaminophen (PERCOCET) 5-325 mg tablet, Take 1 tablet by mouth every 4 hours as needed., Disp: , Rfl: - fentaNYL (DURAGESIC) 25 mcg/hr, Apply 1 Patch as directed every 72 hours., Disp: , Rfl: - docusate sodium (COLACE) 100 mg capsule, Take 100 mg by mouth once daily., Disp: , Rfl: - leuprolide, 6 month, (LUPRON DEPOT, 6 MONTH,) sykt IM syringe kit, Inject 45 mg intramuscularly as directed. every 6 months., Disp: 1 Kit, Rfl: 11 - fluticasone-salmeterol (ADVAIR DISKUS) 250-50 mcg/dose dsdv, Inhale 1 Puff as instructed twice daily. Rinse and gargle mouth after use with water., Disp: 1 Inhaler, Rfl: 5 - albuterol HFA (PROAIR HFA) 90 mcg/actuation inhaler, Inhale 2 Puffs as instructed every 4 hours as needed., Disp: 1 Inhaler, Rfl: 11 - IBUPROFEN ORAL, Take by mouth. , Disp: , Rfl: - aspirin(ADULT LOW DOSE ASPIRIN 81 MG TAB, DELAYED RELEASE), Take one(1) tablet daily., Disp: , Rfl: 0 ALLERGIES Allergen Reactions - Doxycycline GI Upset COMPLETE REVIEW OF SYSTEMS: GENERAL: see HPI. HEENT: Negative for frequent or significant headaches, No changes in hearing or vision, no nose bleeds or other nasal problems NECK: Negative for lumps, goiter, pain and significant neck swelling RESPIRATORY: Negative for cough, hemoptysis, wheezing or shortness of breath CARDIOVASCULAR: Negative for chest pain, leg swelling or palpitations. GI: see HPI All other reviewed and negative other than HPI. PHYSICAL EXAM: Patient Vitals for the past 24 hrs: BP Temp Temp src Pulse Resp SpO2 Weight 07/10/20 1200 ? ? ? 72 ? ? ? 07/10/20 0927 177/87 ? Oral 62 18 ? ? 07/10/20 0726 192/91 36.7 ?C (98.1 ?F) Oral 73 16 99 % ? 07/10/20 0247 175/92 37 ?C (98.6 ?F) Oral 83 20 94 % ? 07/09/20 2306 182/101 36.8 ?C (98.2 ?F) Oral 80 20 95 % ? 07/09/20 1854 152/110 36.8 ?C (98.2 ?F) Oral 84 16 100 % ? 07/09/20 1800 ? 61 kg (134 lb 8 oz) Body mass index is 21.07 kg/m?. GENERAL: alert, no distress, cooperative, mildly jaundiced LUNGS: Lungs clear to auscultation. CARDIAC: normal S1 and S2; RRR. ABDOMEN: Abdomen soft, non-tender. BS normal. No masses or organomegaly. CMP: Recent Labs 07/10/20 0542 NA 137 K 2.5* CHLOR 98 CO2 24 BUN 12 CREAT 0.91 GLUC 315* TPROT 5.8* CA 9.1 TBILI 8.4* ALKPHOS 220* ALT 182* AST 115* ANION 15 Liver Function, Amylase, Lipase: Recent Labs 07/10/20 0542 TPROT 5.8* ALB 3.6* ALT 182* AST 115* ALKPHOS 220* TBILI 8.4* Urinalysis: pH, Urine Date Value Ref Range Status 07/09/2020 6.5 5.0 - 8.0 Final Specific [place], Ur Date Value Ref Range Status 07/09/2020 1.018 1.005 - 1.030 Final Glucose, Urine Date Value Ref Range Status 07/09/2020 Negative Negative mg/dL Final Bilirubin, Urine Date Value Ref Range Status 07/09/2020 2+ (A) Negative Final Comment: Suggest correlation with clinical findings and serum bilirubin if clinically indicated. Ketones, Urine Date Value Ref Range Status 07/09/2020 Negative Negative Final Hemoglobin/Blood,Ur Date Value Ref Range Status 07/09/2020 Negative Negative Final Protein, Urine Date Value Ref Range Status 07/09/2020 1+ (A) Negative Final Urobilinogen Date Value Ref Range Status 07/09/2020 1+ 0.2 - 1.0 E.U./dL Final Nitrites Date Value Ref Range Status 07/09/2020 Negative Negative Final WBC, Urine Date Value Ref Range Status 07/09/2020 6-10 (A) 0 - 5 /HPF Final ASSESSMENT AND PLAN: Non-Hodgkin's lymphoma Onc consult - discussed w/ Dr. Rutledge GI consult Hypokalemia replace History of prostate cancer PSA 0.69 (6-1-20) COPD Breo Spiriva Tobacco abuse Discussed cessation for improved health outcomes. Nicoderm Hepatitis C ID consult HTN Catapress prn Alejandro Killian is being brought into the [facility] for further evaluation and treatment of his medical issues. Further evaluations and/or treatments may be undertaken based on the clinical course. For full details of this hospitalization, please refer to the computerized medical records in the [facility] system. SIGNATURE: Mario Yanes MD DATE: July 10, 2020 TIME: 2:30 PM Normal [facility] HISTORY PHYSICAL HNO ID: [id number] Author: Sharon Guzman Service: General Internal Medicine Author Type: Physician Type: HANDP Filed: 07/11/2020 7:23 PM Note Text: HISTORY AND PHYSICAL EXAMINATION SERVICE DATE: 07/10/2020 PRIMARY CARE PHYSICIAN: No primary care provider on file. Subjective CHIEF COMPLAINT: Abdominal pain HPI: This is a 65 year old male who presents with abdominal pain since May. He has noticed that he is becoming more jaundice over last few weeks and urine is darker than normal. He also noted being more tired than usual lately. He states the pain is aggravated by eating. The pain is improved with pain medication but not resolved. He also states had some issues with blood pressure at outside facility but has never been diagnosed with hypertension. Outside CT reveals large pancreatic or peripancreatic mass. No sob, fevers or chills. PAST MEDICAL HISTORY Diagnosis Date - COPD (chronic obstructive pulmonary disease) (HCC) Mild - Fistula - Prostate cancer (HCC) 12/2011 PAST SURGICAL HISTORY Procedure Laterality Date - COLONOSCOP W/ OR W/O BRSH SPEC 02/15/16 Colonoscopy - PAST SURGICAL HISTORY OF appendectomy - PAST SURGICAL HISTORY OF tonsilectomy - PROSTATECTOMY, SIMPLE, BENIGN 01/03/12 prostate removed FAMILY HISTORY Problem Relation Age of Onset - Heart Father of [place] age 80 - Heart Paternal Grandmother - Heart Paternal Grandfather Social History Tobacco Use - Smoking status: Current Every Day Smoker Packs/day: 0.50 Years: 43.00 Pack years: 21.50 Types: Cigarettes Start date: 01/01/1979 - Smokeless tobacco: Never Used Substance Use Topics - Alcohol use: Yes Comment: drinks 1 drink per month - Drug use: No - budesonide-formoterol (SYMBICORT) 160-4.5 mcg/actuation inhaler, Inhale 2 Puffs as instructed twice daily., Disp: , Rfl: - oxyCODONE-acetaminophen (PERCOCET) 5-325 mg tablet, Take 1 tablet by mouth every 4 hours as needed., Disp: , Rfl: - fentaNYL (DURAGESIC) 25 mcg/hr, Apply 1 Patch as directed every 72 hours., Disp: , Rfl: - docusate sodium (COLACE) 100 mg capsule, Take 100 mg by mouth once daily., Disp: , Rfl: - leuprolide, 6 month, (LUPRON DEPOT, 6 MONTH,) sykt IM syringe kit, Inject 45 mg intramuscularly as directed. every 6 months., Disp: 1 Kit, Rfl: 11 - fluticasone-salmeterol (ADVAIR DISKUS) 250-50 mcg/dose dsdv, Inhale 1 Puff as instructed twice daily. Rinse and gargle mouth after use with water., Disp: 1 Inhaler, Rfl: 5 - albuterol HFA (PROAIR HFA) 90 mcg/actuation inhaler, Inhale 2 Puffs as instructed every 4 hours as needed., Disp: 1 Inhaler, Rfl: 11 - IBUPROFEN ORAL, Take by mouth. , Disp: , Rfl: - aspirin(ADULT LOW DOSE ASPIRIN 81 MG TAB, DELAYED RELEASE), Take one(1) tablet daily., Disp: , Rfl: 0 ALLERGIES Allergen Reactions - Doxycycline GI Upset COMPLETE REVIEW OF SYSTEMS: 10 point ROS performed, reviewed and negative other than HPI. Objective PHYSICAL EXAM: Physical Exam Performed: GENERAL: Alert, Cooperative SKIN: Skin color, texture, turgor normal. No rashes or lesions. EARS: External ears normal, canals clear NOSE: Nares normal. Septum midline. NECK: No jugulovenous distention BACK: Back symmetric, Normal curvature LUNGS: Lungs clear to auscultation, Good diaphragmatic excursion CARDIAC: Normal S1 and S2; no rubs, murmurs, or gallops ABDOMEN: soft, tenderness noted EXTREMITIES: No ulcers NEURO: Cranial nerves II-XII intact PULSES: 2+ radial BP 177/87 Pulse 62 Temp (Src) 98.1 (Oral) Resp 18 Wt 134 lb 8 oz (61.0kg) SpO2 99% O2 Therapy: Room Air DATA: Diagnostic tests reviewed for today's visit: Most recent labs and imaging results. Assessment/Plan Active Hospital Problems Jaundice [R17] Bile duct obstruction * GI consult - IR PTHC with brushing - Ca19, CEA, LFT's, INR * Onc/hem consult - palliative care Elevated blood pressure - ? Secondary to pain - no dx of HTN - monitor Nicotine dependence - nicotine patch, info to quit Hypokalemia - replete- IV x3, recheck - add- on mag COPD - BREO Plan of care discussed with Dr. Thomas Lebron, SHARAN.CANDY SPREADER HELPER July 10, 2020 11:21 AM Attending: Reviewed, discussed with CANDY SPREADER HELPER. Meds, notes, orders reviewed. Agree with mckinney history, findings and plan. Discussed with consultants. Sharon Guzman MD [facility] Hepatitis C RNAon 07-10-2020 Hepatitis C RNA HCV RNA not detected by PCR. [facility] Comment on above: Result Comment: Refe rence Range: Negative for HCV RNA The Linear Range of this assay is 15 IU/mL to 100,000,000 IU/mL. Performed By: #### H CQPCR ####[facility], [place] [phone] Hepatitis C RNA HCV RNA not detected by PCR. Normal [facility] Comment on above: Result Comment: Refe rence Range: Negative for HCV RNA The Linear Range of this assay is 15 IU/mL to 100,000,000 IU/mL. Performed By: #### L D6, HCQPCR, HREMOP ####[place] [address], [place] [phone] Hepatitis Remote Panelon HBsAg Negative Normal Negative [facility] Comment on above: Performed By: #### L D6, HCQPCR, HREMOP ####[place] [address], [place] [phone] Hep B Core Ab,Total Negative Normal Negative [facility] Comment on above: Performed By: #### L D6, HCQPCR, HREMOP ####[place] [address], [place] [phone] Hepatitis C Ab IA Positive Critically abnormal Negative [facility] Comment on above: Result Comment: Conf irmation with Hepatitis C RNA has been ordered and charged. Performed By: #### L D6, HCQPCR, HREMOP ####[place] [address], [place] [phone] HepB Surface Ab,Qual Negative Normal Negative [facility] Comment on above: Result Comment: NEGA TIVE Performed By: #### L D6, HCQPCR, HREMOP ####[place] [address], [place] [phone] LDon 07-10-2020 LD 419 U/L High 135-225 [facility] Comment on above: Performed By: #### L D6, HCQPCR, HREMOP ####[place] [address], [place] [phone] [facility] Send Out Teston 020 Test Chromosome Analysis, Hematologic Malignancy Normal [facility] Comment on above: Performed By: #### W ILD13 ####[facility] [address] [place], [place] [phone] Test Results View results in Scan burt Documents link when available. [facility] Comment on above: Performed By: #### W ILD13 ####[facility] [place], [place] [phone] NURSING PROGon 07-10-2020 NURSING PROG HNO ID: [id number] Author: Torri SorensonRn) HÉCTOR Lundberg Service: ? Author Type: Registered Nurse Type: Nursing Progress Note Filed: 07/11/2020 5:05 AM Note Text: Nursing Progress Note Patient Name: Alejandro Killian Patient Location: [place] [address] [address] Transfer Note: Patient transferred into room/unit 3ST Bed 8 in stable condition. Actions taken: No futher actions taken at this time. Will continue to monitor and check with patient. Patient belongings with patient 2004: Pt states 12/19 pain-medicated with percocet per pt request, VS obtained, tele applied, pain board updated, denies any further needs currently, IVF infusing through L PICC line, call light within reach, will monitor. 2115: Iv fentanyl given per pt request, states he doesn't want to get behind his pain states it has increased since percocet was given. Will monitor. 499: Labs just drawn from PICC line, pain medication given per pt request, denies any further needs, pt aware urine sample needed-states he will be going soon and will send. Will monitor. This note was completed by: Torri Lundberg RN [facility] NURSING PROG HNO ID: [id number] Author: Adriana SorensonRn) HÉCTOR Medel Service: ? Author Type: Registered Nurse Type: Nursing Progress Note Filed: 07/10/2020 7:42 PM Note Text: Nursing Progress Note Patient Name: Alejandro Killian Patient Location: -[id number]-S01/[id number] Daily Note: 0830 Resting in bed, AANDOx3, patient c/o lower back pain. Will medicate for pain as ordered. Patient NPO for procedure later today. IVF infusing without difficulty. Lungs clear on RA call light in reach. 1130 Resting in bed,AANDOx3, call light in reach. 1340 Bone marrow biopsy done at bedside. 1400 Dressing to right hip dry and intact, no bleeding. 1600 Resting in bed, AANDOx3, procedure for today cancelled, patient NPO for CT scan. Call light in reach. 1800 Resting in bed, dinner at bedside. AANDOx3, call light in reach. 1830 Report called to Aiden on 3ST - patient aware that he is transferring. This note was completed by: Adriana Medel RN [facility] PROCEDUREon 07-10-2020 PROCEDURE HNO ID: [id number] Author: Megan SorensonRn) HÉCTOR Guzman Service: PICC Team Author Type: Registered Nurse Type: Procedures Filed: 07/10/2020 5:06 PM Note Text: PICC NURSE INSERTION NOTE DATE OF PROCEDURE: July 10, 2020 TIME OF PROCEDURE: 1655 ORDERING PHYSICIAN: Claudia Arguelles INFORMED CONSENT: Obtained per hospital policy. INDICATION FOR LINE PLACEMENT: Chemotherapy CONDITION OF LINE PLACEMENT: Sterile PRIMARY PROCEDURALIST: Rowan Ceja RN TROUBLE TRACER: Megan Guzman RN PRE-PROCEDURE REVIEW ALLERGIES Allergen Reactions - Doxycycline GI Upset Known History of Upper Venous Thrombosis: No Known History of Permanent Pacemaker or Automated Implanted Cardiac Device: No Previous Breast Surgery of Lymph Node Dissection: No eGFR-All Other Races Date/Time Value Ref Range Status 07/10/2020 05:42 AM >60 . Final Comment: eGFR (Estimated GFR) Units of measure: mL/min/1.73 meters squared eGFR is derived from the reexpressed MDRD Study equation using the following parameters: serum creatinine, age, gender and race. The creatinine assay has been calibrated to be traceable to IDMS. An eGFR <60 mL/min/1.73m2 for >3 months is consistent with chronic kidney disease. Refer to KDOQI guidelines for clinical interpretation. In patients with unstable renal function, e.g. those with acute kidney injury, the eGFR may not accurately reflect actual GFR. eGFR- Date/Time Value Ref Range Status 07/10/2020 05:42 AM >60 Final History of Renal Disease: No Ultrasound Assessment Complete: Yes PROCEDURE NARRATIVE SAFE PRACTICE Hand Hygiene per Hospital Policy: Yes Skin Preparation Unit Dose Applicator Used: Chloraprep (CHG + alcohol), allowed to dry. Procedure Surface Cleansed with Antimicrobial Wipes: Yes Barriers Used by Proceduralist and all Assisting Personnel: Yes UNIVERSAL PROTOCOL / SAFETY CHECKLIST Procedure to be performed: PICC insertion Sign in Communication: Completed Time Out: Team Confirms the Correct Patient, Correct Procedure, Correct Site and Site Marking, Correct Position (if applicable), Prep and Dry Time (if applicable). Time: 1654 Affirmation of Time Out: N/A Sign Out Discussion: Completed Megan Guzman RN CATHETER PLACEMENT Brand: BARD Lot: [id number] Number of Lumens: 1 Type of PICC: Power Injectable PICC Lumen Size: 4 [place] PLACEMENT TECHNIQUE Lidocaine: Yes, Lidocaine 1% Volume 2 mL Subcutaneous Modified Seldinger Technique Used to Place Line via the Left Basilic Ultrasound Guidance: Yes Number of Attempts at Insertion: 1 Ensured control of guidewire during all aspects of the procedure: Yes Accounted for entire guidewire upon removal: Yes Internal Length: 44 cm External Length: 2 cm Trim Length: 46 cm Mid-Arm Circumference: 26.5 centimeters Post Insertion Pain Level Related to Procedure: 0 Action Taken to Address Pain: None needed Verified Placement: Blood return and flushes with ease and Tip location system or device indicates the tip is located in the SVC/CAJ. Line was Flushed with 10 cc normal saline Line Secured with: Securement device Sterile Dressing Applied and Dated: Yes Sterile Caps on all Ports Prior to Leaving Procedure Area: Yes SPECIMENS: None COMPLICATIONS: None Patient Education Materials: Given to patient [facility] Central Line Insertion checklist, attached to the Central Line-Associated Bloodstream Infection Prevention Policy, was utilized during this procedure. QUESTIONS or PROBLEMS: Page [phone] SIGNATURE: Megan Guzman RN PATIENT NAME: Alejandro Killian DATE: July 10, 2020 TIME: 4:54 PM PAGER/CONTACT PHONE: [facility] PROGRESSon 07-10-2020 PROGRESS HNO ID: [id number] Author: Annie Israel RN Service: General Internal Medicine Author Type: Nurse Practitioner Type: Progress Notes Filed: 07/10/2020 11:15 AM Note Text: Am labs reviewed Hypokalemia 2.5-- 60 meq IV potassium chloride ordered Recheck in am along with Mg level Annie Israel APRN.CANDY SPREADER HELPER July 10, 2020 11:15 AM [facility] PT EDon 07-10-2020 PT ED HNO ID: [id number] Author: Megan Brito) HÉCTOR Guzman Service: PICC Team Author Type: Registered Nurse Type: Patient Education Filed: 07/10/2020 4:49 PM Note Text: PATIENT EDUCATION TOPIC: PROCEDURE / SURGERY: Procedure/Surgery: PICC insertion PATIENT NAME: Alejandro Killian PATIENT LOCATION: [place] [address] [address] READINESS TO LEARN COGNITIVE ABILITY: Alert and oriented MOTIVATION TO LEARN: Interested FAMILY SUPPORT: None - Unavailable/disinterested INSTRUCTION PROVIDED TO: Patient PATIENT LEARNS BEST BY: Written Instruction - Hand-outs Verbal Instruction FACTORS AFFECTING LEARNING: None PHYSICAL LIMITATIONS AFFECTING LEARNING: None LEARNING RESPONSE DIAGNOSIS: ADULT: chemotherapy PATIENT/FAMILY RESPONSE: Verbalizes understanding of: POST-PROCEDURE INSTRUCTIONS-Correct actions to take to reduce post procedure complications PRE-PROCEDURE INSTRUCTIONS-Correct action to take to follow pre-procedure instructions METHOD OF INSTRUCTION: Written instruction - handouts Verbal instruction FOLLOW-UP PLAN: Complete - No need for follow-up INSTRUCTIONAL AIDS USED: Picc Line Book SUPPLEMENTAL MATERIAL PROVIDED TO PATIENT: None REFERRAL (RECOMMENDATION): None Electronically Signed By: Megan Guzman RN [facility] Protimeon 07-10-2020 PT Coag (PPP) [Time] 11.4 s Normal 9.7-13.0 [facility] PT Coag (PPP) [Time] 1.1 s Normal 0.9-1.3 [facility] Comment on above: Result Comment: Meredith min K Antagonist (VKA) Therapeutic Range: INR 2 to 3 (Target INR of 2.5) Note: For patients treated with VKA drugs, such as warfarin, the [place] [employer] 2012 Guideline recommends a therapeutic INR range of 2 to 3 (target INR of 2.5). This recommendation includes high-risk patients with antiphospholipid syndrome with previous arterial or venous thromboembolism, current-generation mechanical or bioprosthetic aortic heart valve replacement. Note: Patients with mechanical aortic valve replacement and additional risk factors for thromboembolic events (atrial fibrillation, previous thromboembolism, LV dysfunction, hypercoagulable conditions) or an older generation mechanical AVR (i.e., ball in-Cage) or any mechanical MVR should have a INR therapeutic range of 2.5 to 3.5 (target INR of 3). Katja GH, et al. Chest 2012, 141:7S-47S Patric RA, et al. [facility] 2017, 70: 252-289 SURGICAL PATHOLOGYon 020 SURGICAL PATHOLOGY ADDITIONAL PROCEDURES PRESENT Specimen originated from [facility] Specimen #: [id number] Submitting Physician: DICKSON RUTLEDGE FINAL DIAGNOSIS BONE MARROW, ASPIRATE SMEARS, CORE BIOPSY, AND CLOT SECTION WITH TOUCH IMPRINT AND PERIPHERAL BLOOD: - NORMOCELLULAR BONE MARROW (30%) WITH TRILINEAGE HEMATOPOIESIS. - NORMOCYTIC ANEMIA. - NO MORPHOLOGIC EVIDENCE OF LYMPHOMA. - SEE COMMENT. COMMENT: The history of lymphadenopathy of hepatoportal nodes is noted. Correlation with clinical findings, and other laboratory test results is suggested. PERIPHERAL BLOOD: CBC (07/10/2020): WBC 6.44 k/uL; Hgb 11.6 g/dL; MCV 93.4 fL; RDW 13.9%; Plts 187 k/uL Differential (%,manual): Neuts 64; Lymphs 21; Monos 4; Eos 10; Baso 0 Morphology/Interpretation: Normocytic anemia. BONE MARROW ASPIRATE Normal % (0-2) 1 % Blasts (1-5) 0 % Promyelo (32-72) 68 % Myelos/Metas/Bands/Segs (1-6) 2 % Eosinophils (0-1) 0 % Basophils (0-4) 3 % Monocytes (13-37) 15 % Erythroid precursors (7-23) 11 % Lymphocytes (0-2) 0 % Plasma cells Myeloid/Erythro (1.5-4): 4.8 Cells counted: 300 Iron stain result: Present; no ring sideroblasts. Specimen Quality: Adequate, with a few spicules. Megakaryocytes: Few, normal morphology. Erythropoiesis: Progressive maturation. Granulopoiesis: Progressive maturation. BONE MARROW BIOPSY: Adequacy: Adequate, though slightly subcortical. Cellularity: Normal, 30%. ME ratio: Normal. Hematopoiesis: Trilineage maturation. Megakaryocytes: Adequate. Megakaryocyte morphology: Normal. Lymphoid infiltrate: None. Bone trabeculae: Normal. CLOT SECTION: Marrow particles: Few. Morphology: Similar to biopsy. ANCILLARY TESTS: Flow cytometry: Not performed. Cytogenetics: Pending. FISH: N/A Molecular: Buffy coat stored. SO/db 07/13/2020 Ludivina Saleem M.D. (Electronic Signature) SPECIMEN SUBMITTED A: BONE MARROW, ASPIRATE RPIC B: BONE MARROW, BIOPSY RPIC C: BONE MARROW, CLOT RPIC ADDITIONAL PROCEDURE(S) CYTOGENETICS Date Ordered: 07/10/2020 Date Reported: 07/28/2020 Procedure Results and Interpretation SPECIMEN TYPE: Bone Marrow Aspirate CLINICAL HISTORY: Lymphoma CYTOGENETICS LAB NUMBER: [id number] PREVIOUS CASE: None Known TESTS ORDERED: Chromosome Analysis Normal Karyotype. 46,XY[20] No consistent numerical or structural chromosome abnormalities were observed. COMMENT: Chromosome analysis will not detect subtle translocations, deletions, inversions or other cytogenetic abnormalities that are beyond the resolution limits of the technology used. Director, Cytogenetics: Valeriano Horta, Ph.D. Electronic Signature: 24 JUL 2020 04:30 PM CULTURES: 24-hour unstimulated and 72-hour lymphoid mitogen stimulated. CELLS EXAMINED: 20 BANDING/STAINING TECHNIQUE(S): G-BANDING CELLS ANALYZED: 20 BAND RESOLUTION: 425 CELLS KARYOTYPED: 2 Child Attendant: Juan M Alonzo M.D. [place] [id number], [facility], [address] [place] [address]. [phone]. [phone]. Procedure Pathologist: Ludivina Saleem M.D. Electronic Signature CLINICAL DATA LYMPHOMA GROSS DESCRIPTION A. Received are air-dried bone marrow aspirate smears. Submitted for light microscopy. B. Received in formalin is one segment of cylindrical tissue measuring 2.4 x 0.3 x 0.3 cm, bond to red-brown and of a firm consistency. Totally submitted in formalin in one cassette after decalcification. C. Received in formalin is a segment of red-brown hemorrhagic material measuring 2.2 x 1.2 x 0.2 cm. Totally submitted in one cassette. Gross examination performed at [facility], [address] [place] [address] 07/10/2020 7:46:49 PM Date of Report: 07/14/2020 Date of Procedure: 07/10/2020 Date of Receipt: 07/10/2020 Submitted by: DICKSON RUTLEDGE Additional Physician(s): VICTOR MANUEL ORONA Location: 3ST Diagnostic interpretation performed at [place] [address]. CLIA Number: [id number] Normal [facility] Uric Acidon 07-10-2020 Urate [Mass/Vol] 6.8 mg/dL Normal 4.0-8.1 [facility] Comment on above: Performed By: #### L D6, HCQPCR, HREMOP ####[place] [address] [place], [place] [phone] Urinalysis with Microscopico n 07-10-2020 Bilirubin, Urine 2+ Critically abnormal Negative [facility] Comment on above: Result Comment: Sugg est correlation with clinical findings and serum bilirubin if clinically indicated. Cast SEE COMMENT Critically abnormal 0 [facility] Comment on above: Result Comment: >10 Hyaline Cast Clarity (U) Turbid Critically abnormal Clear [facility] Color (U) Dark Yellow Critically abnormal Yellow [facility] Crystals LM Nom (Urine sed) SEE COMMENT Critically abnormal Negative [facility] Comment on above: Result Comment: 1+ Amorphous Glucose Ql (U) Negative Normal Negative [facility] Hemoglobin/Blood,Ur Negative Normal Negative [facility] Ketones Ql (U) Negative Normal Negative [facility] Leukest Negative Normal Negative [facility] Nitrite Ql (U) Negative Normal Negative [facility] pH (Bld) 6.5 Normal 5.0-8.0 [facility] Protein (U) [Mass/Vol] 1+ Critically abnormal Negative [facility] RBC (U) [#/Vol] 0-3 Normal 0-3 [facility] Specific [place], Ur 1.018 Normal 1.005-1.030 [facility] Urine, Other FOR EAST USE ONLY SEE COMMENT Normal [facility] Comment on above: Result Comment: 1+ Mucous Urobilinogen Qn (U) 1+ E.U./dL Normal 0.2-1.0 [facility] WBC (Bld) [#/Vol] 6-10 Critically abnormal 0-5 [facility] AFP Tumor Markeron 0 AFP Tumor Marker 2 ng/mL Normal 0-9 [facility] Comment on above: Result Comment: INTE RPRETIVE INFORMATION: Alpha Fetoprotein Tumor Marker The [employer] Access DxI AFP method is used. Results obtained with different assay methods or kits cannot be used interchangeably. AFP is a valuable aid in the management of nonseminomatous testicular cancer patients when used in conjunction with information available from the clinical evaluation and other diagnostic procedures. Increased AFP concentrations have also been observed in ataxia telangiectasia, hereditary tyrosinemia, primary hepatocellular carcinoma, teratocarcinoma, gastrointestinal tract cancers with and without liver metastases, and in benign hepatic conditions such as acute viral hepatitis, chronic active hepatitis, and cirrhosis. The result cannot be interpreted as absolute evidence of the presence or absence of malignant disease. The result is not interpretable as a tumor marker in females. Access complete set of age- and/or gender-specific reference intervals for this test in the [facility] Test Directory ([employer]). Performed By: [facility] [address] [place] [address] Corrugator: Mary Irvin MD Performed By: #### C MP3, HEMDF, PT #### [address] [address] CA 19-9on 07-09-2020 CA 19-9 7 U/mL Normal 0-37 [facility] Comment on above: Result Comment: INTE RPRETIVE INFORMATION: Cancer Antigen-GI (CA 19-9) This test uses [place] CA 19-9 electrochemiluminescent immunoassay. Results obtained with different test methods or kits cannot be used interchangeably. CA 19-9 value is useful in monitoring pancreatic, hepatobiliary, gastric, hepatocellular, and colorectal cancer. CA 19-9 value, regardless of level, should not be interpreted as absolute evidence of the presence or absence of malignant disease. Performed By: [facility] [address] [place] [id number] Corrugator: Mary Irvin MD Performed By: #### C EA2 #### [address] [address] #### AFTM, CA19O #### The performing lab is in the report. CBC and Differentialon 07-09 Abs Baso 0.07 k/uL Normal <0.11 [facility] Abs [place] 0.74 k/uL Normal <0.87 [facility] Abs Neut 5.55 k/uL Normal 1.45-7.50 [facility] Absolute nRBC <0.01 Normal <0.01 [facility] Basophils/100 WBC (Bld) 0.9 % Normal [facility] DTYPE Auto Diff Normal [facility] Eosinophils (Bld) [#/Vol] 0.41 10*3/uL Normal <0.46 [facility] Eosinophils/100 WBC (Bld) 5.2 % Normal [facility] Erythrocyte distribution width (RBC) [Ratio] 13.9 % Normal 11.5-15.0 [facility] Hematocrit (Bld) [Volume fraction] 39.4 % Normal 39.0-51.0 [facility] Hemoglobin (Bld) [Mass/Vol] 13.4 g/dL Normal 13.0-17.0 [facility] Lymphocytes (Bld) [#/Vol] 1.13 10*3/uL Normal 1.00-4.00 [facility] Lymphocytes/100 WBC (Bld) 14.3 % Normal [facility] MCH (RBC) [Entitic mass] 31.7 pG Normal 26.0-34.0 [facility] MCHC (RBC) [Mass/Vol] 34.0 g/dL Normal 30.5-36.0 [facility] MCV (RBC) [Entitic vol] 93.1 fL Normal 80.0-100.0 [facility] Monocytes/100 WBC (Bld) 9.4 % Normal [facility] Neutrophils/100 WBC (Bld) 70.2 % Normal [facility] NRBCs 0.0 /100 WBC Normal 0 [facility] Platelet mean volume (Bld) [Entitic vol] 11.7 fL Normal 9.0-12.7 [facility] Platelets (Bld) [#/Vol] 237 10*3/uL Normal 150-400 [facility] RBC (Bld) [#/Vol] 4.23 10*6/uL Normal 4.20-6.00 [facility] WBC (Bld) [#/Vol] 7.90 10*3/uL Normal 3.70-11.00 [facility] Comp Metabolic Panelon 07-09 Albumin [Mass/Vol] 4.2 g/dL Normal 3.9-4.9 [facility] ALP [Catalytic activity/Vol] 258 U/L High 38-113 [facility] ALT [Catalytic activity/Vol] 219 U/L High 10-54 [facility] Anion gap [Moles/Vol] 12 mmol/L Normal 9-18 [facility] AST [Catalytic activity/Vol] 144 U/L High 14-40 [facility] Bilirubin [Mass/Vol] 9.8 mg/dL High 0.2-1.3 [facility] Calcium [Mass/Vol] 10.8 mg/dL High 8.5-10.2 [facility] Chloride [Moles/Vol] 100 mmol/L Normal 97-105 [facility] CO2 [Moles/Vol] 27 mmol/L Normal 22-33 [facility] Creatinine [Mass/Vol] 0.95 mg/dL Normal 0.73-1.22 [facility] eGFR- Amer. >60 Normal [facility] GFR/1.73 sq M predicted among non-blacks MDRD (S/P/Bld) [Vol rate/Area] mL/min/{1.73_m2} Normal [facility] Comment on above: Result Comment: eGFR (Estimated GFR) Units of measure: mL/min/1.73 meters squared eGFR is derived from the reexpressed MDRD Study equation using the following parameters: serum creatinine, age, gender and race. The creatinine assay has been calibrated to be traceable to IDMS. An eGFR <60 mL/min/1.73m2 for >3 months is consistent with chronic kidney disease. Refer to KDOQI guidelines for clinical interpretation. In patients with unstable renal function, e.g. those with acute kidney injury, the eGFR may not accurately reflect actual GFR. Glucose [Mass/Vol] 99 mg/dL Normal 74-99 [facility] Potassium [Moles/Vol] 3.2 mmol/L Low 3.7-5.1 [facility] Protein [Mass/Vol] 6.9 g/dL Normal 6.3-8.0 [facility] Sodium [Moles/Vol] 139 mmol/L Normal 136-144 [facility] Urea nitrogen [Mass/Vol] 12 mg/dL Normal 9-24 [facility] NURSING PROGon 07-09-2020 NURSING PROG HNO ID: [id number] Author: Adriana (Rn) HÉCTOR Medel Service: ? Author Type: Registered Nurse Type: Nursing Progress Note Filed: 07/09/2020 8:13 PM Note Text: Nursing Progress Note Patient Name: Alejandro Killian Patient Location: --[id number] Daily Note: 1845 Admitted to room 1, AANDOx3, patient walked up to floor on his own. [place] steady. no c/o pain at this time. Patient said he is here because of a blocked bile duct. Patient eyes are slightly jaundiced. Oriented to room. 1904 Med reconciliation completed and Dr. Guzman paged for orders. 1914 Security up to lock-up patient's wallet. This note was completed by: Adriana Medel RN [facility] NURSING PROG HNO ID: [id number] Author: Merrill (Héctor) HÉCTOR Markham Service: ? Author Type: Registered Nurse Type: Nursing Progress Note Filed: 07/10/2020 2:54 AM Note Text: Nursing Progress Note Patient Name: Alejandro Killian Patient Location[place] [address] [address] Daily Note: 193 - Received report from day shift. Patient just arrived to floor as direct from home. AxOx3. Ambulates independently. No acute distress noted. Complains of mild abdominal pain, prn medicated per NOV. Assessment completed - see flowsheet for more details. Will start IV and start fluids. Safety maintained. Call light within reach. 1945 - Security at bedside to take patient's wallet. 0000 - NPO for IR procedure in AM. This note was completed by: MERRILL MARKHAM RN [facility] Protimeon 07-09-2020 PT Coag (PPP) [Time] 1.0 s Normal 0.9-1.3 [facility] Comment on above: Result Comment: Meredith min K Antagonist (VKA) Therapeutic Range: INR 2 to 3 (Target INR of 2.5) Note: For patients treated with VKA drugs, such as warfarin, the [place] [employer] 2012 Guideline recommends a therapeutic INR range of 2 to 3 (target INR of 2.5). This recommendation includes high-risk patients with antiphospholipid syndrome with previous arterial or venous thromboembolism, current-generation mechanical or bioprosthetic aortic heart valve replacement. Note: Patients with mechanical aortic valve replacement and additional risk factors for thromboembolic events (atrial fibrillation, previous thromboembolism, LV dysfunction, hypercoagulable conditions) or an older generation mechanical AVR (i.e., ball in-Cage) or any mechanical MVR should have a INR therapeutic range of 2.5 to 3.5 (target INR of 3). Katja GH, et al. Chest 2012, 141:7S-47S Patric RA, et al. [facility] 2017, 70: 252-289 PT Coag (PPP) [Time] 11.0 s Normal 9.7-13.0 [facility] BILIRUBIN, DIRECTon 07-08-20 20 Bilirubin.direct [Mass/Vol] 3.9 mg/dL High 0 - 0.3 mg/dL [place], [place] Interpretation and review of laboratory results Abnormal [place], [place] Test Performed by [facility], [address] [place] [id number] [place] [address] Bilirubin,Directon 0 Bilirubin.direct [Mass/Vol] 3.9 mg/dL High 0.0-0.3 [facility] Comment on above: Performed By: #### P CAYDEN, CMP3, BILD3 #### [facility] [employer] [address] [address] CBC Auto Differentialon 06-12 Absolute Baso # 0.1 10*3/uL 0 - 0.2 10*3/uL [facility] [employer] [place] Absolute Neut # 5.4 10*3/uL 1.8 - 7 10*3/uL [facility] CEAon 07-08-2020 CEA 5.2 ng/mL High 0 - 3 ng/mL [place], [place] Interpretation and review of laboratory results Abnormal [place], [place] Test Performed by [facility] [employer] [facility], [address] [place] [address] [place], [place] CT Chest Abdomen Pelvis W Co ntraston 07-08-2020 Rafal, [facility] Incoming Radiology Results From [employer] - 07/08/2020 9:54 AM EDT Patient Name: AMIE KILLIAN ---CT--- Exam Date/Time 07/08/2020 06:35:[address] Chest/Abdomen/Pelvis (IV Only) Ordering Physician Shauna CROUCH LUDIVINA Accession Number [id number] CPT4 Codes 06181 (CT Chest/Abdomen/Pelvis (IV Only)), 93412 (CT Chest w/ Contrast), Q9967 (CT ISOVUE 370MG/[id number]&ML&1) Reason For Exam Obstructive jaundice Report CHEST CT WITH IV CONTRAST History: Obstructive jaundice, concern for metastasis Comparison CT: None available Technique: Multislice volume acquisition axial CT sections were obtained from the chest apex to the diaphragm following IV injection of 75 mL of Isovue. Multiplanar sagittal and coronal reconstructed images also obtained. Findings: There are mild chronic lung changes with scattered small linear atelectasis, small bullae and focal pleural thickening. There are mild apical pleural calcifications. Tiny 3 mm focal density is noted in the posterior right lower lobe too small to characterize (image #256 of 454). Both lungs show otherwise no discrete masses or infiltrate. The heart is normal in size. There are coronary artery and aortic atherosclerotic calcifications. There is no hilar or mediastinal lymphadenopathy and no pleural or pericardial effusions. There is mild spondylosis. IMPRESSION: Mild chronic lung findings with a small bullae and linear atelectasis. 3 mm focal density in the posterior right lower lobe too small to characterize. Follow-up suggested. ABDOMINAL AND PELVIC CT WITH CONTRAST ENHANCEMENT History: Obstructive jaundice, concern for metastasis Comparison CT: None available Technique: Multislice volume acquisition abdominal and pelvic CT sections from the diaphragm through the symphysis pubis following oral and IV contrast enhancement. Multiplanar sagittal and coronal reconstructed images also obtained. Findings: Abdominal CT shows large, approximately 5.6 x 7.5 x 8.3 cm soft tissue mass in the pancreatic head and proximal body region with additional 4.9 x 5.7 x 7 cm mass component in the herman hepatis. There is extension of the mass into the aortocaval region with some encasement of the adjacent celiac axis, hepatic artery, SMA, and portal and left renal veins. The appearance suggest pancreatic malignancy but lymphoma and other etiologies could not be excluded. There is small paraesophageal hiatus hernia containing fat and some soft tissue thickening. There are dilated intrahepatic bile ducts particularly in the left lobe with apparent compression of the common bile duct by the mass. There is a contracted heterogeneous gallbladder with probable wall thickening or small pericholecystic fluid. Associated gallstones could not be excluded. The pancreatic tail is unremarkable. The spleen, both adrenals, and both kidneys are unremarkable. Pelvic CT shows unremarkable mildly distended urinary bladder. There are surgical clips with no pelvic lymphadenopathy. The exam is limited without oral contrast. There are few mildly dilated proximal small bowel loops in the midabdomen. There is generalized colon diverticulosis without diverticulitis. The appendix is not grossly visualized as an independent structure but there is no pericecal inflammation to suggest appendicitis. There is spondylosis and atherosclerotic calcifications. IMPRESSION: Large mass in the pancreatic head, herman hepatis and adjacent periaortic/pericaval regions. Pancreatic malignancy, lymphoma, and other etiologies should be considered. Vascular encasement and probable common bile duct compression by the mass with intrahepatic biliary dilatation. Gallbladder wall thickening versus small pericholecystic fluid. Gallstone could not be excluded. Small paraesophageal hiatus hernia containing fat and thickened tissue. Few mildly dilated small bowel loops in the midabdomen. Colon diverticulosis. Report Dictated on --- Final --- Dictated: 07/08/2020 9:52 am Dictating Physician: MD MACIAS AHMAD Signed Date and Time: 07/08/2020 9:52 am Signed by: MD MACIAS AHMAD Transcribed Date and Time: 07/08/2020 9:52 [place] Patient Name: AMIE KILLIAN ---CT--- Exam Date/Time 07/08/2020 06:35:[address] Chest/Abdomen/Pelvis (IV Only) Ordering Physician Shauna CROUCH WINGATE Accession Number [id number] CPT4 Codes 18253 (CT Chest/Abdomen/Pelvis (IV Only)), 72068 (CT Chest w/ Contrast), Q9967 (CT ISOVUE 370MG/[id number]) Reason For Exam Obstructive jaundice Report CHEST CT WITH IV CONTRAST History: Obstructive jaundice, concern for metastasis Comparison CT: None available Technique: Multislice volume acquisition axial CT sections were obtained from the chest apex to the diaphragm following IV injection of 75 mL of Isovue. Multiplanar sagittal and coronal reconstructed images also obtained. Findings: There are mild chronic lung changes with scattered small linear atelectasis, small bullae and focal pleural thickening. There are mild apical pleural calcifications. Tiny 3 mm focal density is noted in the posterior right lower lobe too small to characterize (image #256 of 454). Both lungs show otherwise no discrete masses or infiltrate. The heart is normal in size. There are coronary artery and aortic atherosclerotic calcifications. There is no hilar or mediastinal lymphadenopathy and no pleural or pericardial effusions. There is mild spondylosis. IMPRESSION: Mild chronic lung findings with a small bullae and linear atelectasis. 3 mm focal density in the posterior right lower lobe too small to characterize. Follow-up suggested. ABDOMINAL AND PELVIC CT WITH CONTRAST ENHANCEMENT History: Obstructive jaundice, concern for metastasis Comparison CT: None available Technique: Multislice volume acquisition abdominal and pelvic CT sections from the diaphragm through the symphysis pubis following oral and IV contrast enhancement. Multiplanar sagittal and coronal reconstructed images also obtained. Findings: Abdominal CT shows large, approximately 5.6 x 7.5 x 8.3 cm soft tissue mass in the pancreatic head and proximal body region with additional 4.9 x 5.7 x 7 cm mass component in the herman hepatis. There is extension of the mass into the aortocaval region with some encasement of the adjacent celiac axis, hepatic artery, SMA, and portal and left renal veins. The appearance suggest pancreatic malignancy but lymphoma and other etiologies could not be excluded. There is small paraesophageal hiatus hernia containing fat and some soft tissue thickening. There are dilated intrahepatic bile ducts particularly in the left lobe with apparent compression of the common bile duct by the mass. There is a contracted heterogeneous gallbladder with probable wall thickening or small pericholecystic fluid. Associated gallstones could not be excluded. The pancreatic tail is unremarkable. The spleen, both adrenals, and both kidneys are unremarkable. Pelvic CT shows unremarkable mildly distended urinary bladder. There are surgical clips with no pelvic lymphadenopathy. The exam is limited without oral contrast. There are few mildly dilated proximal small bowel loops in the midabdomen. There is generalized colon diverticulosis without diverticulitis. The appendix is not grossly visualized as an independent structure but there is no pericecal inflammation to suggest appendicitis. There is spondylosis and atherosclerotic calcifications. IMPRESSION: Large mass in the pancreatic head, herman hepatis and adjacent periaortic/pericaval regions. Pancreatic malignancy, lymphoma, and other etiologies should be considered. Vascular encasement and probable common bile duct compression by the mass with intrahepatic biliary dilatation. Gallbladder wall thickening versus small pericholecystic fluid. Gallstone could not be excluded. Small paraesophageal hiatus hernia containing fat and thickened tissue. Few mildly dilated small bowel loops in the midabdomen. Colon diverticulosis. Report Dictated on --- Final --- Dictated: 07/08/2020 9:52 am Dictating Physician: MD MACIAS AHMAD Signed Date and Time: 07/08/2020 9:52 am Signed by: MD MACIAS AHMAD Transcribed Date and Time: 07/08/2020 9:52 [place], [place] CT Chest/Abdomen/Pelvis (IV Only)on 07-08-2020 CT Chest/Abdomen/Pelvi s (IV Only) Patient Name: AMIE KILLIAN CT Exam Date/Time 07/08/2020 06:35:[address] Chest/Abdomen/Pelvis (IV Only) Ordering Physician Shauna CROUCH LUDIVINA Accession Number [id number] CPT4 Codes 69579 (CT Chest/Abdomen/Pelvis (IV Only)), 83359 (CT Chest w/ Contrast), Q9967 (CT ISOVUE 370MG/[id number]) Reason For Exam Obstructive jaundice Report CHEST CT WITH IV CONTRAST History: Obstructive jaundice, concern for metastasis Comparison CT: None available Technique: Multislice volume acquisition axial CT sections were obtained from the chest apex to the diaphragm following IV injection of 75 mL of Isovue. Multiplanar sagittal and coronal reconstructed images also obtained. Findings: There are mild chronic lung changes with scattered small linear atelectasis, small bullae and focal pleural thickening. There are mild apical pleural calcifications. Tiny 3 mm focal density is noted in the posterior right lower lobe too small to characterize (image #256 of 454). Both lungs show otherwise no discrete masses or infiltrate. The heart is normal in size. There are coronary artery and aortic atherosclerotic calcifications. There is no hilar or mediastinal lymphadenopathy and no pleural or pericardial effusions. There is mild spondylosis. IMPRESSION: Mild chronic lung findings with a small bullae and linear atelectasis. 3 mm focal density in the posterior right lower lobe too small to characterize. Follow-up suggested. ABDOMINAL AND PELVIC CT WITH CONTRAST ENHANCEMENT History: Obstructive jaundice, concern for metastasis Comparison CT: None available Technique: Multislice volume acquisition abdominal and pelvic CT sections from the diaphragm through the symphysis pubis following oral and IV contrast enhancement. Multiplanar sagittal and coronal reconstructed images also obtained. Findings: Abdominal CT shows large, approximately 5.6 x 7.5 x 8.3 cm soft tissue mass in the pancreatic head and proximal body region with additional 4.9 x 5.7 x 7 cm mass component in the herman hepatis. There is extension of the mass into the aortocaval region with some encasement of the adjacent celiac axis, hepatic artery, SMA, and portal and left renal veins. The appearance suggest pancreatic malignancy but lymphoma and other etiologies could not be excluded. There is small paraesophageal hiatus hernia containing fat and some soft tissue thickening. There are dilated intrahepatic bile ducts particularly in the left lobe with apparent compression of the common bile duct by the mass. There is a contracted heterogeneous gallbladder with probable wall thickening or small pericholecystic fluid. Associated gallstones could not be excluded. The pancreatic tail is unremarkable. The spleen, both adrenals, and both kidneys are unremarkable. Pelvic CT shows unremarkable mildly distended urinary bladder. There are surgical clips with no pelvic lymphadenopathy. The exam is limited without oral contrast. There are few mildly dilated proximal small bowel loops in the midabdomen. There is generalized colon diverticulosis without diverticulitis. The appendix is not grossly visualized as an independent structure but there is no pericecal inflammation to suggest appendicitis. There is spondylosis and atherosclerotic calcifications. IMPRESSION: Large mass in the pancreatic head, herman hepatis and adjacent periaortic/pericaval regions. Pancreatic malignancy, lymphoma, and other etiologies should be considered. Vascular encasement and probable common bile duct compression by the mass with intrahepatic biliary dilatation. Gallbladder wall thickening versus small pericholecystic fluid. Gallstone could not be excluded. Small paraesophageal hiatus hernia containing fat and thickened tissue. Few mildly dilated small bowel loops in the midabdomen. Colon diverticulosis. Report Dictated on Final Dictated: 07/08/2020 9:52 am Dictating Physician: MD MACIAS AHMAD Signed Date and Time: 07/08/2020 9:52 am Signed by: MD MACIAS AHMAD Transcribed Date and Time: 07/08/2020 9:52 Normal [facility] Carcinoembryonic Agon 2019 Carcinoembryonic Ag [Mass/Vol] 5.2 ng/mL High 0.0-3.0 [facility] Comment on above: Performed By: #### C EA2 #### [facility] [address] [place], [place] #### AFTM, CA19O #### The performing lab is in the report. Comp Metabolic Panelon 07-08 Potassium [Moles/Vol] 3.6 mmol/L Normal 3.5-5.1 [facility] Comment on above: Performed By: #### P CAYDEN, CMP3, BILD3 #### [facility] [address] [place], [place] ALP [Catalytic activity/Vol] 227 U/L High 38-126 [facility] Comment on above: Performed By: #### P CAYDEN, CMP3, BILD3 #### [facility] [address] [place], [place] ALT [Catalytic activity/Vol] 274 U/L High 0-49 [facility] Comment on above: Result Comment: The ALT test is performed by an updated assay method. Please note that the reference intervals have been changed and are now sex specific. Performed By: #### P CAYDEN, CMP3, BILD3 #### [facility] [address] [place], [place] Calcium [Mass/Vol] 9.9 mg/dL Normal 8.4-10.4 [facility] Comment on above: Performed By: #### P CAYDEN, CMP3, BILD3 #### [facility] [address] [place], [place] Glucose [Mass/Vol] 90 mg/dL Normal 70-100 [facility] Comment on above: Performed By: #### P CAYDEN, CMP3, BILD3 #### [facility] [address] [place] [address] Urea nitrogen [Mass/Vol] 12 mg/dL Normal 7-20 [facility] Comment on above: Performed By: #### P CAYDEN, CMP3, BILD3 #### [facility] [address] [place] [address] Anion gap [Moles/Vol] 9 Normal [facility] Comment on above: Performed By: #### P CAYDEN, CMP3, BILD3 #### [facility] [address] [place] [address] AST [Catalytic activity/Vol] 139 U/L High 15-46 [facility] Comment on above: Performed By: #### P CAYDEN, CMP3, BILD3 #### [place] [address] [place], [place] Bilirubin [Mass/Vol] 7.1 mg/dL High 0.2-1.3 [facility] Comment on above: Performed By: #### P CAYDEN, CMP3, BILD3 #### [place] [address] [place], [place] CO2 [Moles/Vol] 26 mmol/L Normal 22-30 [facility] Comment on above: Performed By: #### P CAYDEN, CMP3, BILD3 #### [place] [address] [place], [place] Creatinine [Mass/Vol] 0.78 mg/dL Normal 0.52-1.25 [facility] Comment on above: Performed By: #### P CAYDEN, CMP3, BILD3 #### [place] [address] [place] [address] GFR/1.73 sq M predicted among blacks MDRD (S/P/Bld) [Vol rate/Area] mL/min/{1.73_m2} Normal >60 [facility] Comment on above: Performed By: #### P CAYDEN, CMP3, BILD3 #### [facility] [address] [place] [address] GFR/1.73 sq M predicted among non-blacks MDRD (S/P/Bld) [Vol rate/Area] mL/min/{1.73_m2} Normal >60 [facility] Comment on above: Result Comment: KDIG O guidelines provide the following GFR categories: Stage GFR(ml/min/1.73 m2) Terms G1 >=90 Normal or high G2 60-89 Mildly decreased* G3a 45-59 Mildly to moderately decreased G3b 30-44 Moderately to severely decreased G4 15-29 Severely decreased G5 <15 Kidney failure *Relative to young adult level. In the absence of evidence of kidney damage, neither GFR category G1 nor G2 fulfill the criteria for CKD. The CKD-EPI equation is validated in individuals 18 years of age and older. Currently the best equation for estimating glomerular filtration rate (GFR) from serum creatinine in children is the Bedside Yanes equation. It is less accurate in patients with extremes of muscle mass, restriction of dietary protein, ingestion of creatine, extra-renal metabolism of creatinine, or treatment with medications that affect renal tubular creatinine secretion. Performed By: #### P CAYDEN, CMP3, BILD3 #### [facility] [employer] [place] [address] [place], [place] Protein [Mass/Vol] 7.1 g/dL Normal 6.3-8.2 [facility] Comment on above: Performed By: #### P CAYDEN, CMP3, BILD3 #### [place] [address] [place], [place] ALP [Catalytic activity/Vol] 227 U/L High 38-126 [facility] Comment on above: Performed By: #### C MP3, HEMDF, PT #### [facility] [employer] [place] [address] [place], [place] ALT [Catalytic activity/Vol] 267 U/L High 0-49 [facility] Comment on above: Result Comment: The ALT test is performed by an updated assay method. Please note that the reference intervals have been changed and are now sex specific. Performed By: #### C MP3, HEMDF, PT #### [facility] [employer] [facility] [address] [place], [place] Anion gap [Moles/Vol] 10 Normal [facility] Comment on above: Performed By: #### C MP3, HEMDF, PT #### [facility] [employer] [place] [address] [address] [place], [place] AST [Catalytic activity/Vol] 136 U/L High 15-46 [facility] Comment on above: Performed By: #### C MPElizabeth HEMDF, PT #### [facility] [address] [place], [place] Bilirubin [Mass/Vol] 7.0 mg/dL High 0.2-1.3 [facility] Comment on above: Performed By: #### C MP3 HEMDF, PT #### [facility] [address] [place], [place] Calcium [Mass/Vol] 9.8 mg/dL Normal 8.4-10.4 [facility] Comment on above: Performed By: #### C ZOIE3 HEMDF, PT #### [facility] [address] [place], [place] CO2 [Moles/Vol] 27 mmol/L Normal 22-30 [facility] Comment on above: Performed By: #### C MPElizabeth HEMDF, PT #### [facility] [address] [place], [place] Creatinine [Mass/Vol] 0.79 mg/dL Normal 0.52-1.25 [facility] Comment on above: Performed By: #### C MPElizabeth HEMDF, PT #### [facility] [address], [place] GFR/1.73 sq M predicted among blacks MDRD (S/P/Bld) [Vol rate/Area] mL/min/{1.73_m2} Normal >60 [facility] Comment on above: Performed By: #### C MP3 HEMDF, PT #### [facility] [address], [place] GFR/1.73 sq M predicted among non-blacks MDRD (S/P/Bld) [Vol rate/Area] mL/min/{1.73_m2} Normal >60 [facility] Comment on above: Result Comment: KDIG O guidelines provide the following GFR categories: Stage GFR(ml/min/1.73 m2) Terms G1 >=90 Normal or high G2 60-89 Mildly decreased* G3a 45-59 Mildly to moderately decreased G3b 30-44 Moderately to severely decreased G4 15-29 Severely decreased G5 <15 Kidney failure *Relative to young adult level. In the absence of evidence of kidney damage, neither GFR category G1 nor G2 fulfill the criteria for CKD. The CKD-EPI equation is validated in individuals 18 years of age and older. Currently the best equation for estimating glomerular filtration rate (GFR) from serum creatinine in children is the Bedside Yanes equation. It is less accurate in patients with extremes of muscle mass, restriction of dietary protein, ingestion of creatine, extra-renal metabolism of creatinine, or treatment with medications that affect renal tubular creatinine secretion. Performed By: #### C MP3, HEMDF, PT #### [facility] [address], [place] Glucose [Mass/Vol] 90 mg/dL Normal 70-100 [facility] Comment on above: Performed By: #### C MP3, HEMDF, PT #### [facility] [address], [place] Protein [Mass/Vol] 7.0 g/dL Normal 6.3-8.2 [facility] Comment on above: Performed By: #### C MP3, HEMDF, PT #### [facility] [address], [place] Sodium [Moles/Vol] 139 mmol/L Normal 135-145 [facility] Comment on above: Performed By: #### P CAYDEN, CMP3, BILD3 #### [facility] [address], [place] Urea nitrogen [Mass/Vol] 12 mg/dL Normal 7-20 [facility] Comment on above: Performed By: #### C MP3, HEMDF, PT #### [facility] [address], [place] Albumin [Mass/Vol] 3.9 g/dL Normal 3.5-5.0 [facility] Comment on above: Performed By: #### P CAYDEN, CMP3, BILD3 #### [facility] [address], [place] Chloride [Moles/Vol] 103 mmol/L Normal 98-107 [facility] Comment on above: Performed By: #### P CAYDEN, CMP3, BILD3 #### [facility] [address], [place] Potassium [Moles/Vol] 3.5 mmol/L Normal 3.5-5.1 [facility] Comment on above: Performed By: #### C MP3, HEMDF, PT #### [facility] [address], [place] Albumin [Mass/Vol] 3.9 g/dL Normal 3.5-5.0 [facility] Comment on above: Performed By: #### C MP3, HEMDF, PT #### [facility] [address], [place] Chloride [Moles/Vol] 103 mmol/L Normal 98-107 [facility] Comment on above: Performed By: #### C MP3, HEMDF, PT #### [facility] [address], [place] Sodium [Moles/Vol] 139 mmol/L Normal 135-145 [facility] Comment on above: Performed By: #### C MP3, HEMDF, PT #### [facility] [address], [place] Comprehensive Metabolic Pane kristi 07-08-2020 Albumin [Mass/Vol] 3.9 g/dL 3.5 - 5 g/dL [place], [place] ALP [Catalytic activity/Vol] 227 U/L High 38 - 126 U/L [place] ALT [Catalytic activity/Vol] 274 U/L High 0 - 49 U/L [place] Comment on above: The ALT test is perf ormed by an updated assay method. Please note that the reference intervals have been changed and are now sex specific. Anion gap [Moles/Vol] 9 mmol/L [place] AST [Catalytic activity/Vol] 139 U/L High 15 - 46 U/L [place] Bilirubin Ql (U) 7.1 mg/dL High 0.2 - 1.3 mg/dL [place] Calcium [Mass/Vol] 9.9 mg/dL 8.4 - 10. 4 mg/dL [place] Chloride [Moles/Vol] 103 mmol/L 98 - 107 mmol/L [place] CO2 [Moles/Vol] 26 mmol/L 22 - 30 mmol/L [place] Creatinine [Mass/Vol] 0.78 mg/dL 0.52 - 1.25 mg/dL [place] EGFR IF NonAfrican [place]ian >90.0 >60 mL/min [place] Comment on above: KDIGO guidelines pro vide the following GFR categories: Stage GFR(ml/min/1.73 m2) Terms G1 >=90 Normal or high G2 60-89 Mildly decreased* G3a 45-59 Mildly to moderately decreased G3b 30-44 Moderately to severely decreased G4 15-29 Severely decreased G5 <15 Kidney failure *Relative to young adult level. In the absence of evidence of kidney damage, neither GFR category G1 nor G2 fulfill the criteria for CKD. The CKD-EPI equation is validated in individuals 18 years of age and older. Currently the best equation for estimating glomerular filtration rate (GFR) from serum creatinine in children is the Bedside Yanes equation. It is less accurate in patients with extremes of muscle mass, restriction of dietary protein, ingestion of creatine, extra-renal metabolism of creatinine, or treatment with medications that affect renal tubular creatinine secretion. GFR/1.73 sq M predicted among blacks MDRD (S/P/Bld) [Vol rate/Area] mL/min/{1.73_m2} >60 mL/min [place] Glucose [Mass/Vol] 90 mg/dL 70 - 100 mg/dL [place] Interpretation and review of laboratory results Abnormal [place] Potassium [Moles/Vol] 3.6 mmol/L 3.5 - 5.1 mmol/L [place] Protein [Mass/Vol] 7.1 g/dL 6.3 - 8.2 g/dL [place] Sodium [Moles/Vol] 139 mmol/L 135 - 145 mmol/L [place] Urea nitrogen [Mass/Vol] 12 mg/dL 7 - 20 mg/dL [place] Test Performed by [facility], [address] [place] [id number] [place] Albumin [Mass/Vol] 3.9 g/dL 3.5 - 5 g/dL [place] ALP [Catalytic activity/Vol] 227 U/L High 38 - 126 U/L [place] ALT [Catalytic activity/Vol] 267 U/L High 0 - 49 U/L [place] Comment on above: The ALT test is perf ormed by an updated assay method. Please note that the reference intervals have been changed and are now sex specific. Anion gap [Moles/Vol] 10 mmol/L [place] AST [Catalytic activity/Vol] 136 U/L High 15 - 46 U/L [place] Bilirubin Ql (U) 7.0 mg/dL High 0.2 - 1.3 mg/dL [place] Calcium [Mass/Vol] 9.8 mg/dL 8.4 - 10. 4 mg/dL [place] Chloride [Moles/Vol] 103 mmol/L 98 - 107 mmol/L [place] CO2 [Moles/Vol] 27 mmol/L 22 - 30 mmol/L [place] Creatinine [Mass/Vol] 0.79 mg/dL 0.52 - 1.25 mg/dL [place] EGFR IF NonAfrican [place]ian >90.0 >60 mL/min [place] Comment on above: KDIGO guidelines pro vide the following GFR categories: Stage GFR(ml/min/1.73 m2) Terms G1 >=90 Normal or high G2 60-89 Mildly decreased* G3a 45-59 Mildly to moderately decreased G3b 30-44 Moderately to severely decreased G4 15-29 Severely decreased G5 <15 Kidney failure *Relative to young adult level. In the absence of evidence of kidney damage, neither GFR category G1 nor G2 fulfill the criteria for CKD. The CKD-EPI equation is validated in individuals 18 years of age and older. Currently the best equation for estimating glomerular filtration rate (GFR) from serum creatinine in children is the Bedside Yanes equation. It is less accurate in patients with extremes of muscle mass, restriction of dietary protein, ingestion of creatine, extra-renal metabolism of creatinine, or treatment with medications that affect renal tubular creatinine secretion. GFR/1.73 sq M predicted among blacks MDRD (S/P/Bld) [Vol rate/Area] mL/min/{1.73_m2} >60 mL/min [place] Glucose [Mass/Vol] 90 mg/dL 70 - 100 mg/dL [place] Potassium [Moles/Vol] 3.5 mmol/L 3.5 - 5.1 mmol/L [place] Protein [Mass/Vol] 7.0 g/dL 6.3 - 8.2 g/dL [place] Sodium [Moles/Vol] 139 mmol/L 135 - 145 mmol/L [place] Urea nitrogen [Mass/Vol] 12 mg/dL 7 - 20 mg/dL [place] Hemogram w/ Autodiffon 07-08 Abs Baso Cnt 0.1 10*3/uL Normal 0.0-0.2 [facility] Comment on above: Performed By: #### C MP3, HEMDF, PT #### [address] [id number] Abs Neutrophile Cnt 5.4 10*3/uL Normal 1.8-7.0 [facility] Comment on above: Performed By: #### C MP3, HEMDF, PT #### [address] [id number] Basophils/100 WBC (Bld) 1.0 % Normal 0.0-2.0 [place] Comment on above: Performed By: #### C MP3, HEMDF, PT #### [address] [phone] Eosinophils (Bld) [#/Vol] 0.3 10*3/uL Normal 0.0-0.5 [place] Comment on above: Performed By: #### C MP3, HEMDF, PT #### [address] [address] Eosinophils/100 WBC (Bld) 3.9 % Normal 1.0-6.0 [place] Comment on above: Performed By: #### C MP3, HEMDF, PT #### [facility] [place] [address], [place] Erythrocyte distribution width (RBC) [Ratio] 14.2 % Normal 11.5-14.5 [place] Comment on above: Performed By: #### C MP3, HEMDF, PT #### [facility] [place] [address], [place] Granulocytes/100 WBC (Bld) 72.4 % Normal 40.0-80.0 [place] Comment on above: Performed By: #### C MP3, HEMDF, PT #### [place] [address] [place], [place] Hematocrit (Bld) [Volume fraction] 38.3 % Low 40.0-52.0 [place] Comment on above: Performed By: #### C MP3, HEMDF, PT #### [facility] [place] [address] [place], [place] Hemoglobin (Bld) [Mass/Vol] 13.0 g/dL Normal 13.0-18.0 [place] Comment on above: Performed By: #### C MP3, HEMDF, PT #### [place] [address] [place], [place] Lymphocytes (Bld) [#/Vol] 1.1 10*3/uL Normal 1.0-4.3 [place] Comment on above: Performed By: #### C MP3, HEMDF, PT #### [place] [address] [place], [place] Lymphocytes/100 WBC (Bld) 15.3 % Low 20.0-40.0 [place] Comment on above: Performed By: #### C MP3, HEMDF, PT #### [place] [address] [place], [place] MCH (RBC) [Entitic mass] 31.8 pg Normal 26.0-34.0 [place] Comment on above: Performed By: #### C MP3, HEMDF, PT #### [place] [address] [place], [place] MCHC (RBC) [Mass/Vol] 34.0 % Normal 32.0-36.0 [place] Comment on above: Performed By: #### C MP3, HEMDF, PT #### [place] [address] [place], [place] MCV (RBC) [Entitic vol] 93.7 fL Normal 80.0-98.0 [place] Comment on above: Performed By: #### C MP3, HEMDF, PT #### [place] [address] [place], [place] Monocytes (Bld) [#/Vol] 0.5 10*3/uL Normal 0.0-0.8 [place] Comment on above: Performed By: #### C MP3, HEMDF, PT #### [place] [address] [place], [place] Monocytes/100 WBC (Bld) 7.4 % Normal 2.0-10.0 [place] Comment on above: Performed By: #### C MP3, HEMDF, PT #### [place] [address] [place], [place] Platelet mean volume (Bld) [Entitic vol] 9.8 fL Normal 7.4-10.4 [place] Comment on above: Performed By: #### C MP3, HEMDF, PT #### [place] [address] [place], [place] Platelets (Bld) [#/Vol] 208 10*3/uL Normal 140-440 [place] Comment on above: Performed By: #### C MP3, HEMDF, PT #### [place] [address] [place], [place] RBC (Bld) [#/Vol] 4.09 10*6/uL Low 4.40-5.90 [place] Comment on above: Performed By: #### C MP3, HEMDF, PT #### [address] WBC (Bld) [#/Vol] 7.4 10*3/uL Normal 3.6-10.7 [place] Comment on above: Performed By: #### C MP3, HEMDF, PT #### [address] Otheron 07-08-2020 Interpretation and review of laboratory results Abnormal [place] Test Performed by [facility], [address] [place] [id number] [place] [address] Procalcitoninon 07-08-2020 Procalcitonin < 0.10 Normal <0.10 [facility] Comment on above: Performed By: #### P CAYDEN, CMP3, BILD3 #### [address] Procalcitonin <0.10 <0.10 ng/mL [place] Sodium [Moles/Vol] See Below [place] Comment on above: PCT <0.50 = Low risk of severe sepsis and/or septic shock. PCT >2.00 = High risk of severe sepsis and/or septic shock. Test Performed by [id number] [place] [address] Interpretation See Below Normal [facility] Comment on above: Result Comment: PCT <0.50 = Low risk of severe sepsis and/or septic shock. PCT >2.00 = High risk of severe sepsis and/or septic shock. Performed By: #### P CAYDEN, CMP3, BILD3 #### [address] Prothrombin Timeon 0 INR Coag (PPP) [Relative time] 1.0 Normal 0.9-1.1 [facility] Comment on above: Result Comment: Lc mmended Anticoagulant Therapy: SEE BELOW ----- INR of 2.0 - 3.0 : - Prophylaxis of Venous Thrombosis (high-risk surgery) - Treatment of Venous Thrombosis - Treatment of Pulmonary Embolism (Includes tissue heart valves, Acute Myocardial Infarction to prevent systemic embolism, Valvular Heart Disease, and Atrial Fibrillation) ----- INR of 2.5 - 3.5 : - Mechanical Prosthetic Valves (high risk) - If oral anticoagulant therapy is used to prevent Myocardial Infarction Performed By: #### C MP3, HEMDF, PT #### [facility] [address] [place] [address] PT Coag (PPP) [Time] 11.1 s Normal 9.0-12.0 [facility] Comment on above: Result Comment: . Performed By: #### C MP3, HEMDF, PT #### [facility] [address] [place] [address] Protime-INRon 07-08-2020 INR Coag (PPP) [Relative time] 1.0 {INR} [place] Comment on above: Recommended Anticoag ulant Therapy: SEE BELOW ----- INR of 2.0 - 3.0 : - Prophylaxis of Venous Thrombosis (high-risk surgery) - Treatment of Venous Thrombosis - Treatment of Pulmonary Embolism (Includes tissue heart valves, Acute Myocardial Infarction to prevent systemic embolism, Valvular Heart Disease, and Atrial Fibrillation) ----- INR of 2.5 - 3.5 : - Mechanical Prosthetic Valves (high risk) - If oral anticoagulant therapy is used to prevent Myocardial Infarction PT Coag (PPP) [Time] 11.1 s 9 - 12 s [place] Comment on above: . Test Performed by [facility], [address] [place] [address] [place] CNNURSEon 06-01-2017 CNNURSE Nurse Visit (FERNANDO) -------AMIE KILLIAN ([id number]) 1955 MDate Time Provider Department06/01/17 1:15 PM NURSE AMBERLY KING During your visit today, we recorded the following information about you:Miles Rasmussen, RN, RN 06/01/2017 12:49 PM SignedMichaeelba Killian a 62 year old male, identified by name and date of , herefor a 6 month Lupron injection..Adverse Effects: Hot Flashes: No Frequency: noneAllergies reviewed: YesInjection Administration:Lupron 45 mgIMleft gluteal site.Lot # [id number] date: 73-56-8857HMR #: [id number] tolerated well.FOLLOW UP:Next Dose: 6 monthsMiles Rasmussen RNReferring Provider: APOLLO MELO [[id number]]Allergies As of Date: 06/01/2017 Noted Allergy ReactionDOXYCYCLINE 12/30/2014 8 - GI UpsetDate Reviewed: 05/09/2016Reviewed by: Victor Manuel Ortiz Ma - Fully AssessedReason for Visit: Injections [199]Primary Visit Diagnosis:Malignant neoplasm prostate (HCC) [C61]Prescriptions as of 06/01/2017 Sig: LEUPROLIDE (6 MONTH) 45 MG IN* Inject 45 mg intramuscularly * FLUTICASONE 250 MCG-SALMETERO* Inhale 1 Puff as instructed t* ALBUTEROL SULFATE HFA 90 MCG/* Inhale 2 Puffs as instructed * * IBUPROFEN ORAL Take by mouth. * ADULT LOW DOSE ASPIRIN 81 MG * Take one(1) tablet daily.Medication notes this encounter LEUPROLIDE (6 MONTH) 45 MG INTRAMUSCULAR SYRINGE KIT >> Miles Rasmussen RN, RN 06/01/2017 12:48 PM >> MILES RASMUSSEN [facility] Jun 01, 2017 12:48 PM Injection Administration: Lupron 45 mg IM left gluteal site. 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] INVALID FOR* Hyperlipidemia [E78.5] INVALID FOR* Elevated PSA [R97.20] INVALID FOR*Visit Notes:>> Miles (Rn) HÉCTOR Rasmussen [facility] Jun 01, 2017 12:46 PM Status: Ernesto Killian a 62 year old male, identified by name and date of ,here for a 6 month Lupron injection..Adverse Effects: Hot Flashes: No Frequency: noneAllergies reviewed: YesInjection Administration:Lupron 45 mgIMleft gluteal site.Lot # [id number] date: 92-98-8460NFF #: [id number] tolerated well.FOLLOW UP:Next Dose: 6 monthsMiles Rasmussen RNEncounter Number: [id number] Status:Closed by MILES RASMUSSEN on 06/01/17 [facility] Office Visit: suture removal gwen 04-11-2017 Documentation of current medications (procedure) Done Invalid Interpretation Code [facility] [employer] Work Phone: Protein mass conc yes [facility] [employer] Work Phone: Protein mass conc Done [facility] [employer] Work Phone: Smoking cessation education (procedure) yes Invalid Interpretation Code [facility] [employer] Work Phone: Tobacco smoking status NHIS Never Invalid Interpretation Code [facility] [employer] Work Phone: Tobacco smoking status NHIS Current every day smoker [facility] [employer] Work Phone: Tobacco use [facility] Current every day smoker Invali d Interpretation Code [facility] [employer] Work Phone: Office Visit: skin lesion on 03-29-2017 Fall risk assessment No Invalid Interpretation Code [facility] [employer] Work Phone: Protein mass conc Done [facility] [employer] Work Phone: Tobacco smoking status NHIS Never [facility] [employer] Work Phone: Tobacco smoking status NHIS Current every day smoker [facility] [employer] Work Phone: Office Visit: skin lesion on gwen 09-11-2014 Colonoscopy (procedure) Colonoscopy (procedure) Invalid Interpretation Code [facility] Work Phone: Protein mass conc Colonoscopy (procedure) [facility] Work Phone: Vital Signs Date Time Vital Sign Value Performing Clinician Facility 02-18-2025 14:28-0400 Body temperature 98.1 [degF] Dr. Apollo Melo MD Work Phone: [facility] 02-18-2025 14:28-0400 Diastolic blood pressure 80 mm[Hg] Dr. Apollo Melo MD Work Phone: [facility] 02-18-2025 14:28-0400 Heart rate 77 /min Dr. Apollo Melo MD Work Phone: [facility] 02-18-2025 14:28-0400 Respiratory rate 22 /min Dr. Apollo Melo MD Work Phone: [facility] 02-18-2025 14:28-0400 SaO2% (BldA) [Mass fraction] 99 % Dr. Apollo Melo MD Work Phone: [facility] 02-18-2025 14:28-0400 Systolic blood pressure 138 mm[Hg] Dr. Apollo Melo MD Work Phone: [facility] 02-18-2025 13:54-0400 Body height 172.[address] Apollo Melo MD Work Phone: [facility] 02-18-2025 13:54-0400 Body mass index (BMI) [Ratio] 19.5 kg/m2 Dr. Apollo Melo MD Work Phone: [facility] 02-18-2025 13:54-0400 Body weight 58.[address] Apollo Melo MD Work Phone: [facility] 01-14-2025 08:26-0400 Body mass index (BMI) [Ratio] 19.69 kg/m2 Apollo Melo MD Work Phone: [facility] 01-14-2025 08:26-0400 Body weight 56.7 kg Apollo Melo MD Work Phone: [facility] 01-14-2025 08:26-0400 Diastolic blood pressure 76 mm[Hg] Apollo Melo MD Work Phone: [facility] 01-14-2025 08:26-0400 Heart rate 80 /min Apollo Melo MD Work Phone: [facility] 01-14-2025 08:26-0400 Respiratory rate 16 /min Apollo Melo MD Work Phone: [facility] 01-14-2025 08:26-0400 Systolic blood pressure 124 mm[Hg] Apollo Melo MD Work Phone: [facility] 12-19-2024 09:01-0400 Body mass index (BMI) [Ratio] 20.24 kg/m2 Francisco Javier Perez MD Work Phone: [facility] 12-19-2024 09:01-0400 Body temperature 97 [degF] Francisco Javier Perez MD Work Phone: [facility] 12-19-2024 09:01-0400 Body weight 58.29 kg Francisco Javier Perez MD Work Phone: [facility] 12-19-2024 09:01-0400 Diastolic blood pressure 73 mm[Hg] Francisco Javier Perez MD Work Phone: [facility] 12-19-2024 09:01-0400 Heart rate 79 /min Francisco Javier Perez MD Work Phone: [facility] 12-19-2024 09:01-0400 SaO2% (BldA) [Mass fraction] 100 % Francisco Javier Perez MD Work Phone: [facility] 12-19-2024 09:01-0400 Systolic blood pressure 150 mm[Hg] Francisco Javier Perez MD Work Phone: [facility] 12-17-2024 07:00-0400 Body mass index (BMI) [Ratio] 20.08 kg/m2 Lab/Port Wstr Work Phone: [facility] 12-17-2024 07:00-0400 Body weight 57.83 kg Lab/Port Wstr Work Phone: [facility] 11-26-2024 09:20-0400 Diastolic blood pressure 70 mm[Hg] Amanda Corona DO Work Phone: [facility] 11-26-2024 09:20-0400 Systolic blood pressure 125 mm[Hg] Amanda Corona DO Work Phone: [facility] 11-26-2024 08:47-0400 Heart rate 71 /min Amanda Corona DO Work Phone: [facility] 11-26-2024 08:47-0400 SaO2% (BldA) [Mass fraction] 95 % Amanda Corona DO Work Phone: [facility] 09-26-2024 09:10-0500 Body mass index (BMI) [Ratio] 19.69 kg/m2 Francisco Javier Perez MD Work Phone: [facility] 09-26-2024 09:10-0500 Body temperature 97.7 [degF] Francisco Javier Perez MD Work Phone: [facility] 09-26-2024 09:10-0500 Body weight 56.7 kg Francisco Javier Perez MD Work Phone: [facility] 09-26-2024 09:10-0500 Diastolic blood pressure 89 mm[Hg] Francisco Javier Perez MD Work Phone: [facility] 09-26-2024 09:10-0500 Heart rate 66 /min Francisco Javier Perez MD Work Phone: [facility] 09-26-2024 09:10-0500 SaO2% (BldA) [Mass fraction] 96 % Francisco Javier Perez MD Work Phone: [facility] 09-26-2024 09:10-0500 Systolic blood pressure 159 mm[Hg] Francisco Javier Perez MD Work Phone: [facility] 07-26-2024 08:03-0500 Body height 169.7 cm Pulm Wstr Work Phone: [facility] 07-26-2024 08:03-0500 Body mass index (BMI) [Ratio] 18.9 kg/m2 Pulm Wstr Work Phone: [facility] 07-26-2024 08:03-0500 Body weight 54.43 kg Pulm Wstr Work Phone: [facility] 07-26-2024 08:03-0500 Heart rate 72 /min Pulm Wstr Work Phone: [facility] 07-26-2024 08:03-0500 Respiratory rate 14 /min Pulm Wstr Work Phone: [facility] 07-26-2024 08:03-0500 SaO2% (BldA) [Mass fraction] 100 % Pulm Wstr Work Phone: [facility] 07-16-2024 09:20-0500 Body mass index (BMI) [Ratio] 18.27 kg/m2 Apollo Melo MD Work Phone: [facility] 07-16-2024 09:20-0500 Body weight 53.7 kg Apollo Melo MD Work Phone: [facility] 07-16-2024 09:20-0500 Diastolic blood pressure 74 mm[Hg] Apollo Melo MD Work Phone: [facility] 07-16-2024 09:20-0500 Heart rate 76 /min Apollo Melo MD Work Phone: [facility] 07-16-2024 09:20-0500 Respiratory rate 16 /min Apollo Melo MD Work Phone: [facility] 07-16-2024 09:20-0500 Systolic blood pressure 112 mm[Hg] Apollo Melo MD Work Phone: [facility] 07-04-2024 09:32-0400 Body mass index (BMI) [Ratio] 18.36 kg/m2 Francisco Javier Perez MD Work Phone: [facility] 07-04-2024 09:32-0400 Body temperature 97 [degF] Francisco Javier Perez MD Work Phone: [facility] 07-04-2024 09:32-0400 Body weight 53.98 kg Francisco Javier Perez MD Work Phone: [facility] 07-04-2024 09:32-0400 Diastolic blood pressure 95 mm[Hg] Francisco Javier Perez MD Work Phone: [facility] [facility] 07-04-2024 09:32-0400 Heart rate 68 /min Francisco Javier Perez MD Work Phone: [facility] 07-04-2024 09:32-0400 SaO2% (BldA) [Mass fraction] 99 % Francisco Javier Perez MD Work Phone: [facility] 07-04-2024 09:32-0400 Systolic blood pressure 150 mm[Hg] Francisco Javier Perez MD Work Phone: [facility] 04-11-2024 08:58-0400 Body mass index (BMI) [Ratio] 18.29 kg/m2 Treatment Wstr Work Phone: [facility] 04-11-2024 08:58-0400 Body temperature 97.39 [degF] Treatment Wstr Work Phone: [facility] 04-11-2024 08:58-0400 Body weight 53.75 kg Treatment Wstr Work Phone: [facility] 04-11-2024 08:58-0400 Diastolic blood pressure 89 mm[Hg] Treatment Wstr Work Phone: [facility] 04-11-2024 08:58-0400 Heart rate 64 /min Treatment Wstr Work Phone: [facility] 04-11-2024 08:58-0400 Respiratory rate 18 /min Treatment Wstr Work Phone: [facility] 04-11-2024 08:58-0400 SaO2% (BldA) [Mass fraction] 98 % Treatment Wstr Work Phone: [facility] 04-11-2024 08:58-0400 Systolic blood pressure 142 mm[Hg] Treatment Wstr Work Phone: [facility] 01-26-2024 15:03-0400 Body mass index (BMI) [Ratio] 18.5 kg/m2 Apollo Melo MD Work Phone: [facility] 01-26-2024 15:03-0400 Body weight 54.39 kg Apollo Melo MD Work Phone: [facility] 01-26-2024 15:03-0400 Diastolic blood pressure 78 mm[Hg] Apollo Melo MD Work Phone: [facility] 01-26-2024 15:03-0400 Heart rate 62 /min Apollo Melo MD Work Phone: [facility] 01-26-2024 15:03-0400 Respiratory rate 16 /min Apollo Melo MD Work Phone: [facility] 01-26-2024 15:03-0400 Systolic blood pressure 124 mm[Hg] Apollo Melo MD Work Phone: [facility] 01-18-2024 10:26-0400 Body mass index (BMI) [Ratio] 18.52 kg/m2 Treatment Wstr Work Phone: [facility] 01-18-2024 10:26-0400 Body temperature 97.5 [degF] Treatment Wstr Work Phone: [facility] 01-18-2024 10:26-0400 Body weight 54.43 kg Treatment Wstr Work Phone: [facility] 01-18-2024 10:26-0400 Diastolic blood pressure 84 mm[Hg] Treatment Wstr Work Phone: [facility] 01-18-2024 10:26-0400 Heart rate 60 /min Treatment Wstr Work Phone: [facility] 01-18-2024 10:26-0400 SaO2% (BldA) [Mass fraction] 99 % Treatment Wstr Work Phone: [facility] 01-18-2024 10:26-0400 Systolic blood pressure 149 mm[Hg] Treatment Wstr Work Phone: [facility] 10-27-2023 09:33-0500 Body temperature 96.4 [degF] Francisco Javier Perez MD Work Phone: [facility] 10-27-2023 09:33-0500 Body weight 54.88 kg Francisco Javier Perez MD Work Phone: [facility] 10-27-2023 09:33-0500 Diastolic blood pressure 90 mm[Hg] Francisco Javier Perez MD Work Phone: [facility] 10-27-2023 09:33-0500 Heart rate 69 /min Francisco Javier Perez MD Work Phone: [facility] 10-27-2023 09:33-0500 SaO2% (BldA) [Mass fraction] 92 % Francisco Javier Perez MD Work Phone: [facility] 10-27-2023 09:33-0500 Systolic blood pressure 145 mm[Hg] Francisco Javier Perez MD Work Phone: [facility] 10-27-2023 09:21-0500 Body weight 55.11 kg Lab/Port Wstr Work Phone: [facility] 08-02-2023 08:23-0500 Body weight 56.47 kg Lab/Port Wstr Work Phone: [facility] 07-21-2023 09:01-0500 Body temperature 97.3 [degF] Injection Wstr Work Phone: [facility] 07-21-2023 09:01-0500 Body weight 56.7 kg Injection Wstr Work Phone: [facility] 07-21-2023 09:01-0500 Diastolic blood pressure 84 mm[Hg] Injection Wstr Work Phone: [facility] 07-21-2023 09:01-0500 Heart rate 67 /min Injection Wstr Work Phone: [facility] 07-21-2023 09:01-0500 SaO2% (BldA) [Mass fraction] 99 % Injection Wstr Work Phone: [facility] 07-21-2023 09:01-0500 Systolic blood pressure 150 mm[Hg] Injection Wstr Work Phone: [facility] 07-17-2023 15:00-0500 Body weight 56.16 kg Apollo Melo MD Work Phone: [facility] 07-17-2023 15:00-0500 Diastolic blood pressure 84 mm[Hg] Apollo Melo MD Work Phone: [facility] 07-17-2023 15:00-0500 Heart rate 66 /min Apollo Melo MD Work Phone: [facility] 07-17-2023 15:00-0500 Respiratory rate 18 /min Apollo Melo MD Work Phone: [facility] 07-17-2023 15:00-0500 Systolic blood pressure 136 mm[Hg] Apollo Melo MD Work Phone: [facility] 05-16-2023 07:32-0400 Body temperature 97.81 [degF] Cydney Wolf APRN.[employer] Work Phone: [facility] 05-16-2023 07:32-0400 Body weight 56.25 kg Cydney Wolf APRN.[employer] Work Phone: [facility] 05-16-2023 07:32-0400 Diastolic blood pressure 80 mm[Hg] Cydney Wolf APRN.[employer] Work Phone: [facility] 05-16-2023 07:32-0400 Heart rate 65 /min Cydney Wolf APRN.[employer] Work Phone: [facility] 05-16-2023 07:32-0400 Respiratory rate 18 /min Cydney Wolf APRN.[employer] Work Phone: [facility] 05-16-2023 07:32-0400 SaO2% (BldA) [Mass fraction] 99 % Cyndey Wolf APRN.[employer] Work Phone: [facility] 05-16-2023 07:32-0400 Systolic blood pressure 150 mm[Hg] Cydney Wolf APRN.[employer] Work Phone: [facility] 05-12-2023 10:28-0400 Body temperature 97 [degF] Treatment Wstr Work Phone: [facility] 05-12-2023 10:28-0400 Diastolic blood pressure 88 mm[Hg] Treatment Wstr Work Phone: [facility] 05-12-2023 10:28-0400 Heart rate 80 /min Treatment Wstr Work Phone: [facility] 05-12-2023 10:28-0400 Systolic blood pressure 150 mm[Hg] Treatment Wstr Work Phone: [facility] 04-28-2023 08:41-0400 Body temperature 97 [degF] Injection Wstr Work Phone: [facility] 01-13-2023 08:26-0400 Body weight 59.15 kg Apollo Melo MD Work Phone: [facility] 01-13-2023 08:26-0400 Diastolic blood pressure 80 mm[Hg] Apollo Melo MD Work Phone: [facility] 01-13-2023 08:26-0400 Heart rate 80 /min Apollo Melo MD Work Phone: [facility] 01-13-2023 08:26-0400 Respiratory rate 16 /min Apollo Melo MD Work Phone: [facility] 01-13-2023 08:26-0400 Systolic blood pressure 130 mm[Hg] Apollo Melo MD Work Phone: [facility] 11-28-2022 08:21-0400 Body temperature 97.3 [degF] Lisha Ernandez MD Work Phone: [facility] 11-28-2022 08:21-0400 Body weight 60.33 kg Lisha Ernandez MD Work Phone: [facility] 11-28-2022 08:21-0400 Diastolic blood pressure 84 mm[Hg] Lisha Ernandez MD Work Phone: [facility] 11-28-2022 08:21-0400 Heart rate 82 /min Lisha Ernandez MD Work Phone: [facility] 11-28-2022 08:21-0400 Systolic blood pressure 128 mm[Hg] Lisha Ernandez MD Work Phone: [facility] 11-25-2022 10:12-0400 Body temperature 97.11 [degF] Treatment Wstr Work Phone: [facility] 11-25-2022 10:12-0400 Diastolic blood pressure 71 mm[Hg] Treatment Wstr Work Phone: [facility] 11-25-2022 10:12-0400 Heart rate 81 /min Treatment Wstr Work Phone: [facility] 11-25-2022 10:12-0400 Systolic blood pressure 133 mm[Hg] Treatment Wstr Work Phone: [facility] 11-04-2022 09:05-0500 Body temperature 98.6 [degF] Injection Wstr Work Phone: [facility] 11-04-2022 09:05-0500 Body weight 59.42 kg Injection Wstr Work Phone: [facility] 11-04-2022 09:05-0500 Diastolic blood pressure 76 mm[Hg] Injection Wstr Work Phone: [facility] 11-04-2022 09:05-0500 Heart rate 74 /min Injection Wstr Work Phone: [facility] 11-04-2022 09:05-0500 Systolic blood pressure 125 mm[Hg] Injection Wstr Work Phone: [facility] 09-02-2022 10:00-0500 Body temperature 98.01 [degF] Treatment Wstr Work Phone: [facility] 09-02-2022 10:00-0500 Diastolic blood pressure 83 mm[Hg] Treatment Wstr Work Phone: [facility] 09-02-2022 10:00-0500 Heart rate 72 /min Treatment Wstr Work Phone: [facility] 09-02-2022 10:00-0500 SaO2% (BldA) [Mass fraction] 96 % Treatment Wstr Work Phone: [facility] 09-02-2022 10:00-0500 Systolic blood pressure 122 mm[Hg] Treatment Wstr Work Phone: [facility] 08-29-2022 08:12-0500 Body temperature 97.11 [degF] Sean Rodriguez MD Work Phone: [facility] 08-29-2022 08:12-0500 Body weight 61.24 kg Sean Rodriguez MD Work Phone: [facility] 08-29-2022 08:12-0500 Diastolic blood pressure 92 mm[Hg] Sean Rodriguez MD Work Phone: [facility] 08-29-2022 08:12-0500 Heart rate 74 /min Sean Rodriguez MD Work Phone: [facility] 08-29-2022 08:12-0500 SaO2% (BldA) [Mass fraction] 99 % Sean Rodriguez MD Work Phone: [facility] 08-29-2022 08:12-0500 Systolic blood pressure 144 mm[Hg] Sean Rodriguez MD Work Phone: [facility] 08-12-2022 08:19-0500 Body temperature 97.59 [degF] Injection Wstr Work Phone: [facility] 08-12-2022 08:19-0500 Body weight 60.78 kg Injection Wstr Work Phone: [facility] 08-12-2022 08:19-0500 Diastolic blood pressure 94 mm[Hg] Injection Wstr Work Phone: [facility] 08-12-2022 08:19-0500 Heart rate 80 /min Injection Wstr Work Phone: [facility] 08-12-2022 08:19-0500 Systolic blood pressure 132 mm[Hg] Injection Wstr Work Phone: [facility] 07-15-2022 08:20-0400 Body weight 60.51 kg Apollo Melo MD Work Phone: [facility] 07-15-2022 08:20-0400 Diastolic blood pressure 86 mm[Hg] Apollo Melo MD Work Phone: [facility] 07-15-2022 08:20-0400 Heart rate 74 /min Apollo Melo MD Work Phone: [facility] 07-15-2022 08:20-0400 Respiratory rate 16 /min Apollo Melo MD Work Phone: [facility] 07-15-2022 08:20-0400 SaO2% (BldA) [Mass fraction] 99 % Apollo Melo MD Work Phone: [facility] 07-15-2022 08:20-0400 Systolic blood pressure 126 mm[Hg] Apollo Melo MD Work Phone: [facility] 06-28-2022 09:30-0400 Body temperature 97.39 [degF] Sean Rodriguez MD Work Phone: [facility] 06-28-2022 09:30-0400 Body weight 61.46 kg Sean Rodriguez MD Work Phone: [facility] 06-28-2022 09:30-0400 Diastolic blood pressure 80 mm[Hg] Sean Rodriguez MD Work Phone: [facility] 06-28-2022 09:30-0400 Heart rate 82 /min Sean Rodriguez MD Work Phone: [facility] 06-28-2022 09:30-0400 Systolic blood pressure 118 mm[Hg] Sean Rodriguez MD Work Phone: [facility] 06-10-2022 10:00-0400 Body temperature 96.8 [degF] Treatment Wstr Work Phone: [facility] 06-10-2022 10:00-0400 Body weight 61.69 kg Treatment Wstr Work Phone: [facility] 06-10-2022 10:00-0400 Diastolic blood pressure 83 mm[Hg] Treatment Wstr Work Phone: [facility] 06-10-2022 10:00-0400 Heart rate 68 /min Treatment Wstr Work Phone: [facility] 06-10-2022 10:00-0400 Systolic blood pressure 145 mm[Hg] Treatment Wstr Work Phone: [facility] 05-20-2022 09:33-0400 Body temperature 97.5 [degF] Injection Wstr Work Phone: [facility] 05-20-2022 09:33-0400 Body weight 60.55 kg Injection Wstr Work Phone: [facility] 05-20-2022 09:33-0400 Diastolic blood pressure 62 mm[Hg] Injection Wstr Work Phone: [facility] 05-20-2022 09:33-0400 Heart rate 88 /min Injection Wstr Work Phone: [facility] 05-20-2022 09:33-0400 Systolic blood pressure 106 mm[Hg] Injection Wstr Work Phone: [facility] 04-04-2022 09:41-0400 Body temperature 97.59 [degF] Sean Rodriguez MD Work Phone: [facility] 04-04-2022 09:41-0400 Body weight 58.97 kg Sean Rodriguez MD Work Phone: [facility] 04-04-2022 09:41-0400 Diastolic blood pressure 81 mm[Hg] Sean Rodriguez MD Work Phone: [facility] 04-04-2022 09:41-0400 Heart rate 80 /min eSan Rodriguez MD Work Phone: [facility] 04-04-2022 09:41-0400 SaO2% (BldA) [Mass fraction] 96 % Sean Rodriguez MD Work Phone: [facility] 04-04-2022 09:41-0400 Systolic blood pressure 126 mm[Hg] Sean Rodriguez MD Work Phone: [facility] 03-18-2022 10:39-0400 Body temperature 97.5 [degF] Treatment Wstr Work Phone: [facility] 03-18-2022 10:39-0400 Body weight 59.65 kg Treatment Wstr Work Phone: [facility] 03-18-2022 10:39-0400 Diastolic blood pressure 77 mm[Hg] Treatment Wstr Work Phone: [facility] 03-18-2022 10:39-0400 Heart rate 75 /min Treatment Wstr Work Phone: [facility] 03-18-2022 10:39-0400 Respiratory rate 16 /min Treatment Wstr Work Phone: [facility] 03-18-2022 10:39-0400 SaO2% (BldA) [Mass fraction] 98 % Treatment Wstr Work Phone: [facility] 03-18-2022 10:39-0400 Systolic blood pressure 152 mm[Hg] Treatment Wstr Work Phone: [facility] 03-07-2022 08:47-0400 Body temperature 97.81 [degF] Sean Rodriguez MD Work Phone: [facility] 03-07-2022 08:47-0400 Body weight 59.88 kg Sean Rodriguez MD Work Phone: [facility] 03-07-2022 08:47-0400 Diastolic blood pressure 94 mm[Hg] Sean Rodriguez MD Work Phone: [facility] 03-07-2022 08:47-0400 Heart rate 63 /min Sean Rodriguez MD Work Phone: [facility] 03-07-2022 08:47-0400 SaO2% (BldA) [Mass fraction] 98 % Sean Rodriguez MD Work Phone: [facility] 03-07-2022 08:47-0400 Systolic blood pressure 158 mm[Hg] Sean Rodriguez MD Work Phone: [facility] 02-25-2022 10:00-0400 Body temperature 97.59 [degF] Injection Wstr Work Phone: [facility] 02-25-2022 10:00-0400 Body weight 58.51 kg Injection Wstr Work Phone: [facility] 02-25-2022 10:00-0400 Diastolic blood pressure 90 mm[Hg] Injection Wstr Work Phone: [facility] 02-25-2022 10:00-0400 Heart rate 59 /min Injection Wstr Work Phone: [facility] 02-25-2022 10:00-0400 Systolic blood pressure 144 mm[Hg] Injection Wstr Work Phone: [facility] 02-22-2022 09:41-0400 Diastolic blood pressure 90 mm[Hg] Amanda Corona DO Work Phone: [facility] 02-22-2022 09:41-0400 Systolic blood pressure 128 mm[Hg] Amanda Corona DO Work Phone: [facility] 02-22-2022 09:35-0400 Body height 171.5 cm Amanda Corona DO Work Phone: [facility] 02-22-2022 09:35-0400 Body weight 58.97 kg Amanda Corona DO Work Phone: [facility] 02-22-2022 09:35-0400 Heart rate 73 /min Amanda Corona DO Work Phone: [facility] 02-22-2022 09:35-0400 SaO2% (BldA) [Mass fraction] 99 % Amanda Corona DO Work Phone: [facility] 01-11-2022 08:08-0400 Body weight 60.65 kg Apollo Melo MD Work Phone: [facility] 01-11-2022 08:08-0400 Diastolic blood pressure 74 mm[Hg] Apollo Melo MD Work Phone: [facility] 01-11-2022 08:08-0400 Heart rate 78 /min Apollo Melo MD Work Phone: [facility] 01-11-2022 08:08-0400 Respiratory rate 16 /min Apollo Melo MD Work Phone: [facility] 01-11-2022 08:08-0400 Systolic blood pressure 122 mm[Hg] Apollo Melo MD Work Phone: [facility] 12-24-2021 12:25-0400 Diastolic blood pressure 79 mm[Hg] Reena Kenny MD Work Phone: [facility] 12-24-2021 12:25-0400 Heart rate 80 /min Reena Kenny MD Work Phone: [facility] 12-24-2021 12:25-0400 Respiratory rate 18 /min Reena Kenny MD Work Phone: [facility] 12-24-2021 12:25-0400 SaO2% (BldA) [Mass fraction] 98 % Reena Kenny MD Work Phone: [facility] 12-24-2021 12:25-0400 Systolic blood pressure 128 mm[Hg] Reena Kenny MD Work Phone: [facility] 12-24-2021 10:51-0400 Body temperature 96.6 [degF] Reena Kenny MD Work Phone: [facility] 12-24-2021 10:51-0400 Body weight 60.1 kg Reena Kenny MD Work Phone: [facility] 12-13-2021 08:54-0400 Body weight 60.1 kg Lab/Port Wstr Work Phone: [facility] 07-08-2020 16:53-0400 Body Temperature 97.81 [degF] [facility] [place] [place] 07-08-2020 16:53-0400 BP Diastolic 86 mm[Hg] [facility] [place] [facility] [place] 07-08-2020 16:53-0400 BP Systolic 152 mm[Hg] [facility] , [place] 07-08-2020 16:53-0400 Pulse (Heart Rate) 86 /min [facility], [place] 07-08-2020 16:53-0400 Pulse Oximetry 96 % [facility] , [place] 07-08-2020 16:53-0400 Respiratory Rate 16 /min [facility], [place] 07-07-2020 21:11-0400 BMI (Body Mass Index) 20.5 kg/m2 [facility], [place] 07-07-2020 21:11-0400 Body weight 61.15 kg [facility] , [place] 07-07-2020 21:11-0400 Height 172.7 cm [facility] , [place] 03-29-2017 14:56-0400 BMI (Body Mass Index) 21.63 kg/m2 Panda Ba MD [facility] Work Phone: 03-29-2017 14:56-0400 Body Temperature 97.2 [degF] Panda Ba MD [facility] Work Phone: 03-29-2017 14:56-0400 BP Diastolic 84 mm[Hg] Panda Ba MD [facility] Work Phone: 03-29-2017 14:56-0400 BP Systolic 128 mm[Hg] Panda Ba MD [facility] Work Phone: 03-29-2017 14:56-0400 Height 171.45 cm Panda Ba MD [facility] Work Phone: 03-29-2017 14:56-0400 Pulse (Heart Rate) 78 /min Panda Ba MD [facility] Work Phone: 03-29-2017 14:56-0400 Respiratory Rate 18 /min Panda Ba MD [facility] Work Phone: 03-29-2017 14:56-0400 Weight 63.59 kg Panda aB MD [facility] Work Phone: Encounters Encounter Date Encounter Type Care Provider Facility Start: 02-18-2025 Evaluation and management of inpatient Dr. Rodrigo Ceballos MD -Intensive Care Unit Work Phone: Start: 02-17-2025 End: 02-17-2025 E-mail encounter from caregiver Francisco Javier Perez MD Work Phone: Hematology/Oncology Start: 02-17-2025 End: 02-17-2025 Patient encounter procedure Francisco Javier Perez MD Work Phone: Hematology/Oncology Comment on above: Appointment Request Start: 02-17-2025 End: 02-17-2025 ambulatory APOLLO MELO Facility:[facility] Comment on above: CT scan Start: 02-17-2025 End: 02-17-2025 ambulatory FRANCISCO JAVIER PEREZ Facility:[facility] Start: 01-14-2025 End: 01-14-2025 Office outpatient visit 25 minutes Apollo Melo MD Work Phone: [facility] [place] Comment on above: Hyperlipidemia, unsp ecified hyperlipidemia type (Primary Dx); Tobacco use disorder; Chronic obstructive pulmonary disease, unspecified COPD type (HCC); Prostate cancer (HCC); PAD (peripheral artery disease); Diffuse large B-cell lymphoma of intra-abdominal lymph nodes (HCC); Urinary incontinence, unspecified type; Elevated glucose; Malignant neoplasm metastatic to bone (HCC) Start: 01-14-2025 End: 01-14-2025 ambulatory APOLLO MELO Facility:[facility] Start: 01-07-2025 ambulatory APOLLO MELO Facil ity:[facility] Start: 01-07-2025 End: 01-07-2025 Subsequent hospital visit by physician [facility] ([facility]) Work Phone: Cat Scan Comment on above: Lesion of liver [K76 .9] Start: 12-19-2024 End: 12-19-2024 ambulatory Francisco Javier Perez MD Work Phone: Hematology/Oncology Comment on above: Lesion of liver (Brianna rosa Dx); Diffuse large B-cell lymphoma of intra-abdominal lymph nodes (HCC); Prostate cancer (HCC) 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); Lesion of liver; Prostate cancer (HCC); Malignant neoplasm metastatic to bone (HCC) Start: 12-19-2024 End: 12-19-2024 Patient encounter procedure Francisco Javier Perez MD Work Phone: Hematology/Oncology Start: 12-17-2024 End: 12-17-2024 ambulatory Lab/Port [facility] Work Phone: Hematology/Oncology Comment on above: Prostate cancer (HCC ) (Primary Dx); Screening for nephropathy; Malignant neoplasm metastatic to bone (HCC) Start: 12-06-2024 End: 12-06-2024 ambulatory Apollo Melo MD Work Phone: [facility] [place] Start: 12-06-2024 End: 12-06-2024 E-mail encounter from caregiver [facility] Provider [facility] Start: 12-06-2024 End: 12-06-2024 Patient encounter procedure Apollo Melo MD Work Phone: [facility] [place] Comment on above: Population Health Na vigation Outreach (Buddy Capone ) Scheduling needs Start: 11-26-2024 End: 11-26-2024 Patient encounter procedure Amanda Corona DO Work Phone: Vascular Surgery Comment on above: Peripheral vascular disease (HCC) (Primary Dx); Screening for nephropathy; Asymptomatic carotid artery stenosis, unspecified laterality Start: 11-26-2024 End: 11-26-2024 ambulatory APOLLO MELO Facility:[facility] Start: 11-14-2024 End: 11-14-2024 ambulatory Apollo Melo MD Work Phone: [facility] [place] Comment on above: Incontinence Start: 09-30-2024 End: 10-01-2024 Telephone encounter Lisa CARIAS Hematology/Oncology Comment on above: Xtandi Refill Refill Request Start: 09-26-2024 End: 09-26-2024 ambulatory Treatment Rm 14 [facility] Work Phone: Hematology/Oncology Comment on above: Prostate cancer (HCC ) (Primary Dx); Diffuse large B-cell lymphoma of intra-abdominal lymph nodes (HCC); Lesion of liver; Malignant neoplasm metastatic to bone (HCC) Prostate cancer (HCC ) (Primary Dx) Start: 09-26-2024 End: 09-26-2024 Patient encounter procedure Francisco Javier Perez MD Work Phone: Hematology/Oncology Start: 09-24-2024 End: 09-24-2024 ambulatory Lab/[place] [facility] Work Phone: Hematology/Oncology Comment on above: Malignant neoplasm m etastatic to bone (HCC) Start: 09-18-2024 End: 09-18-2024 Telephone encounter Lisa CARIAS Hematology/Oncology Comment on above: 2024 Kirill Mcneil ce Renewal Start: 09-12-2024 End: 09-19-2024 Telephone encounter Apollo Melo MD Work Phone: Family Medicine [place] Comment on above: Medication Problem Start: 09-03-2024 End: 09-03-2024 Refill Amanda Corona DO Work Phone: Vascular Surgery Comment on above: Refill Request Start: 07-26-2024 End: 07-26-2024 ambulatory Pulm Lab [facility] Work Phone: PULM LAB [facility] Comment on above: Spirometry Start: 07-26-2024 End: 07-26-2024 Patient encounter procedure Pulm Lab [facility] Work Phone: PULM LAB [facility] Start: 07-16-2024 End: 07-16-2024 ambulatory APOLLO MELO Facility:[facility] Start: 07-16-2024 End: 07-16-2024 Patient encounter procedure Apollo Melo MD Work Phone: Family Medicine [place] Comment on above: Chronic obstructive pulmonary disease, unspecified COPD type (HCC) (Primary Dx); Hyperlipidemia, unspecified hyperlipidemia type; PAD (peripheral artery disease) (HCC); Elevated glucose; Prostate cancer (HCC); Diffuse large B-cell lymphoma of intra-abdominal lymph nodes (HCC); Malignant neoplasm metastatic to bone (HCC); Tobacco use disorder; Internal hemorrhoids Start: 07-04-2024 End: 07-04-2024 ambulatory Chavez Gabe BRADY Work Phone: Hematology/Oncology Comment on above: Prostate cancer (HCC ) (Primary Dx); Malignant neoplasm metastatic to bone (HCC) Refill Request Prostate cancer (HCC ) (Primary Dx); Diffuse large B-cell lymphoma of intra-abdominal lymph nodes (HCC); Lesion of liver Start: 07-04-2024 End: 07-04-2024 Patient encounter procedure Treatment Rm 15 [facility] Work Phone: Hematology/Oncology Start: 07-02-2024 End: 07-02-2024 ambulatory Lab/[place] [facility] Work Phone: Hematology/Oncology Comment on above: Malignant neoplasm m etastatic to bone (HCC) Start: 06-28-2024 End: 06-28-2024 Refill Francisco Javier Perez MD Work Phone: Hematology/Oncology Comment on above: Refill Request Start: 04-11-2024 End: 04-11-2024 [facility]/Oncology Comment on above: Prostate cancer (HCC ) (Primary Dx); Malignant neoplasm metastatic to bone (HCC); Diffuse large B-cell lymphoma of intra-abdominal lymph nodes (HCC); Lesion of liver Start: 04-11-2024 End: 04-11-2024 Patient encounter procedure Treatment Rm 16 [facility] Work Phone: Hematology/Oncology Start: 04-09-2024 End: 04-09-2024 ambulatory Lab/[place] [facility] Work Phone: Hematology/Oncology Comment on above: Malignant neoplasm m etastatic to bone (HCC) (Primary Dx); Elevated glucose Start: 04-06-2024 ambulatory Francisco Javier pearson MD Work Phone: Hematology/Oncology Start: 04-06-2024 Patient encounter procedure Francisco Javier Perez MD Work Phone: Hematology/Oncology Comment on above: Monday's appointm ent Start: 01-30-2024 Telephone encounter Apollo herbert MD Work Phone: [address] [place] [address] Start: 01-26-2024 End: 01-26-2024 Patient encounter procedure Apollo Melo MD Work Phone: [facility] [place] Comment on above: Chronic obstructive pulmonary disease, unspecified COPD type (HCC) (Primary Dx); Hyperlipidemia, unspecified hyperlipidemia type; PAD (peripheral artery disease) (HCC); Tobacco use disorder; Prostate cancer (HCC); Diffuse large B-cell lymphoma of intra-abdominal lymph nodes (HCC); Dizziness; Weight loss; Elevated glucose Start: 01-18-2024 Telephone encounter Francisco Javier akers MD Work Phone: Hematology/Oncology Comment on above: Patient Question Start: 01-18-2024 End: 01-18-2024 ambulatory Treatment Rm 13 [facility] Work Phone: Hematology/Oncology Comment on above: Prostate cancer (HCC ) (Primary Dx); Diffuse large B-cell lymphoma of intra-abdominal lymph nodes (HCC); Lesion of liver; Malignant neoplasm metastatic to bone (HCC) Start: 01-17-2024 End: 01-17-2024 ambulatory Lab/[place] [facility] Work Phone: Hematology/Oncology Comment on above: Malignant neoplasm m etastatic to bone (HCC) Start: 12-15-2023 ambulatory Francisco Javier pearson MD Work Phone: Hematology/Oncology Comment on above: Lupron injections Start: 11-28-2023 End: 11-28-2023 Patient encounter procedure Amanda Corona DO Work Phone: Vascular Surgery Comment on above: Peripheral arterial disease (HCC) (Primary Dx) Start: 10-27-2023 End: 10-27-2023 Patient encounter procedure Francisco Javier Perez MD [facility] Start: 10-27-2023 End: 10-27-2023 ambulatory Lab/[place] Work Phone: Hematology/Oncology Comment on above: Malignant neoplasm m etastatic to bone (HCC) (Primary Dx) Malignant neoplasm m etastatic to bone (HCC) (Primary Dx); Prostate cancer (HCC); Diffuse large B-cell lymphoma of intra-abdominal lymph nodes (HCC); Lesion of liver Start: 08-18-2023 End: 08-18-2023 ambulatory Lab/[place] Work Phone: Hematology/Oncology Comment on above: Malignant neoplasm m etastatic to bone (HCC) (Primary Dx) Start: 08-02-2023 End: 08-02-2023 ambulatory Lab/[place] Work Phone: Hematology/Oncology Comment on above: Diffuse large B-cell lymphoma of intra-abdominal lymph nodes (HCC); Prostate cancer (HCC); Malignant neoplasm metastatic to bone (HCC); Langerhans cell histiocytoses (HCC) Start: 07-21-2023 End: 07-21-2023 ambulatory Lab/[place] Work Phone: Hematology/Oncology Comment on above: Malignant neoplasm m etastatic to bone (HCC) (Primary Dx); Diffuse large B-cell lymphoma of intra-abdominal lymph nodes (HCC); Prostate cancer (HCC); 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); Lesion of liver; Prostate cancer (HCC) Start: 07-17-2023 End: 07-17-2023 Patient encounter procedure Apollo Melo MD Work Phone: [facility] [place] Comment on above: Chronic obstructive pulmonary disease, unspecified COPD type (HCC) (Primary Dx); Internal hemorrhoids; Hyperlipidemia, unspecified hyperlipidemia type; PAD (peripheral artery disease) (HCC); Protein-calorie malnutrition, unspecified severity (HCC); Malignant neoplasm metastatic to bone (HCC); Prostate cancer (HCC); Diffuse large B-cell lymphoma of intra-abdominal lymph nodes (HCC); Skin lesion; Locking finger joint; Sensation of cold in finger; Tobacco use disorder Start: 06-29-2023 Refill Chavez ONEAL RN.[facility] Work Phone: [facility] [place] Comment on above: Refill Request Start: 05-19-2023 Telephone encounter Maliha henderson RN Work Phone: Hematology/Oncology Comment on above: Care Coordination (F ollow Up Note ) Start: 05-16-2023 Telephone encounter Cydney Wolf APRN.CANDY SPREADER HELPER Work Phone: [facility] Comment on above: Results Start: 05-16-2023 ambulatory APOLLO Ifeanyi MELO Facil ity:[facility] Start: 05-16-2023 End: 05-16-2023 Subsequent hospital visit by physician [facility] Comment on above: Pain of right thigh [M79.651] Start: 05-16-2023 End: 05-16-2023 Subsequent hospital visit by physician Xr [facility] [place] Work Phone: Radiology Comment on above: Pain of right thigh [M79.651] Start: 05-16-2023 End: 05-16-2023 Patient encounter procedure Cydney Wolf APRN.CANDY SPREADER HELPER Work Phone: [place] [facility] Comment on above: Pain of right thigh (Primary Dx) Start: 05-12-2023 End: 05-12-2023 ambulatory Treatment Rm 13 [facility] Work Phone: Hematology/Oncology Comment on above: 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); Prostate cancer (HCC); Malignant neoplasm metastatic to bone (HCC); Langerhans cell histiocytoses (HCC) Start: 05-11-2023 End: 05-11-2023 ambulatory Lab/[place] [facility] Work Phone: Hematology/Oncology Comment on above: Diffuse large B-cell lymphoma of intra-abdominal lymph nodes (HCC); Prostate cancer (HCC); Malignant neoplasm metastatic to bone (HCC); Langerhans cell histiocytoses (HCC) Start: 04-28-2023 End: 04-28-2023 ambulatory Injection [facility] Work Phone: Hematology/Oncology Comment on above: 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); Lesion of liver; Prostate cancer (HCC) Prostate cancer (HCC ) Start: 03-02-2023 End: 03-02-2023 ambulatory Lab/[place] [facility] Work Phone: Hematology/Oncology Comment on above: Malignant neoplasm m etastatic to bone (HCC) (Primary Dx); Diffuse large B-cell lymphoma of intra-abdominal lymph nodes (HCC); Prostate cancer (HCC) Start: 03-02-2023 End: 03-02-2023 Subsequent hospital visit by physician [facility] (I-Stat) Work Phone: Cat Scan Comment on above: Diffuse large B-cell lymphoma of intra-abdominal lymph nodes (HCC) [C83.33] Prostate cancer (HCC ) [C61] Start: 03-01-2023 Orders Only Dustin Savage Work Phone: Hematology/Oncology Comment on above: 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); Prostate cancer (HCC); Malignant neoplasm metastatic to bone (HCC) Start: 02-16-2023 End: 02-16-2023 ambulatory Lab/[place] [facility] Work Phone: Hematology/Oncology Comment on above: Diffuse large B-cell lymphoma of intra-abdominal lymph nodes (HCC); Prostate cancer (HCC); Langerhans cell histiocytoses (HCC) Start: 02-14-2023 Orders Only Dustin Savage Work Phone: Hematology/Oncology Comment on above: 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); Prostate cancer (HCC); Langerhans cell histiocytoses (HCC) Start: 01-13-2023 Telephone encounter Apollo herbert MD Work Phone: Family Medicine [place] Comment on above: Fax Derm referral to Alvaro Vieira Start: 01-13-2023 End: 01-13-2023 Patient encounter procedure Apollo Melo MD Work Phone: Family Medicine [place] Comment on above: Chronic obstructive pulmonary disease, unspecified COPD type (HCC) (Primary Dx); Hyperlipidemia, unspecified hyperlipidemia type; PAD (peripheral artery disease) (HCC); Tobacco use disorder; Prostate cancer (HCC); Diffuse large B-cell lymphoma of intra-abdominal lymph nodes (HCC); Skin lesion; Protein-calorie malnutrition, unspecified severity (HCC); Malignant neoplasm metastatic to bone (HCC) Start: 12-20-2022 Telephone encounter Maliha henderson RN Work Phone: Hematology/Oncology Comment on above: Care Coordination (O RAL ANTI-CANCER AGENTS EDUCATION) Start: 11-30-2022 ambulatory [facility] Start: 11-30-2022 [facility] Comment on above: SPP Oral Oncology/he matology - Treatment Referral (Xtandi); Insurance Authorization (Pending PA Submission, approved) Start: 11-28-2022 Telephone encounter Lisha galvan MD Work Phone: Hematology/Oncology Comment on above: AVS 11/28/22 Start: 11-28-2022 End: 11-28-2022 ambulatory Lisha Ernandez MD Work Phone: Hematology/Oncology Comment on above: 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); Prostate cancer (HCC); Langerhans cell histiocytoses (HCC) Start: 11-28-2022 End: 11-28-2022 Patient encounter procedure Lisha Ernandez MD Work Phone: [facility] Start: 11-25-2022 End: 11-25-2022 ambulatory Treatment Rm 12 [facility] Work Phone: Hematology/Oncology Comment on above: Bone metastasis (HCC ) (Primary Dx); Prostate cancer (HCC) Start: 11-23-2022 Orders Only Lisha Ernandez MD Work Phone: Hematology/Oncology Comment on above: 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); Prostate cancer (HCC); Bone metastasis (HCC) Start: 11-04-2022 End: 11-04-2022 ambulatory [facility] Work Phone: Hematology/Oncology Comment on above: Prostate cancer (HCC ) (Primary Dx) 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); Lesion of liver; Prostate cancer (HCC) Start: 09-19-2022 ambulatory Apollo serrano MD Work Phone: Family Medicine [place] Comment on above: Incontinence medicat ion Start: 09-02-2022 End: 09-02-2022 ambulatory Treatment Rm 12 [facility] Work Phone: Hematology/Oncology Comment on above: Bone metastasis (HCC ) (Primary Dx); Prostate cancer (HCC) Start: 09-01-2022 End: 09-01-2022 ambulatory [facility]/[place] [facility] Work Phone: Hematology/Oncology Comment on above: Bone metastasis (HCC ) (Primary Dx); Diffuse large B-cell lymphoma of intra-abdominal lymph nodes (HCC); Prostate cancer (HCC) Start: 08-29-2022 End: 08-29-2022 ambulatory Sean Rodriguez MD Work Phone: Hematology/Oncology Comment on above: 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); Prostate cancer (HCC); Bone metastasis (HCC) Start: 08-29-2022 End: 08-29-2022 Patient encounter procedure Sean Rodriguez MD Work Phone: [facility] Start: 08-26-2022 Refill Amanda Smallwood Work Phone: Vascular Surgery Comment on above: Refill Request Start: 08-16-2022 End: 08-16-2022 Subsequent hospital visit by physician [facility] (I-Stat) Work Phone: Cat Scan Comment on above: Diffuse large B-cell lymphoma of intra-abdominal lymph nodes (HCC) [C83.33] Start: 08-16-2022 End: 08-16-2022 ambulatory [facility] [facility] Work Phone: Hematology/Oncology Comment on above: 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) Start: 08-12-2022 End: 08-12-2022 ambulatory [facility]/[place] [facility] Work Phone: Hematology/Oncology Comment on above: Diffuse large B-cell lymphoma of intra-abdominal lymph nodes (HCC); Bone metastasis (HCC); Prostate cancer (HCC); 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); Lesion of liver; Prostate cancer (HCC) Start: 08-11-2022 Refill Sean Rodriguez MD Work Phone: Hematology/Oncology Comment on above: Refill Request Start: 07-15-2022 End: 07-15-2022 Patient encounter procedure Apollo Melo MD Work Phone: Family [facility] [place] Comment on above: Chronic obstructive pulmonary disease, unspecified COPD type (HCC) (Primary Dx); Langerhans cell histiocytoses (HCC); Diffuse large B-cell lymphoma of intra-abdominal lymph nodes (HCC); Prostate cancer (HCC); PAD (peripheral artery disease) (HCC); Hyperlipidemia, unspecified hyperlipidemia type; Tobacco use disorder; Skin lesion Start: 07-04-2022 Refill Apollo serrano MD Work Phone: Family Medicine [place] Comment on above: Refill Request Start: 07-03-2022 ambulatory Apollo serrano MD Work Phone: [facility] [place] Comment on above: Breo Start: 06-29-2022 ambulatory [place] CANDLE CUTTER.CANDY SPREADER HELPER Work Phone: Pulmonary Medicine Start: 06-28-2022 End: 06-28-2022 Patient encounter procedure Sean Rodriguez MD Work Phone: [facility] Start: 06-28-2022 End: 06-28-2022 ambulatory [facility] [facility] Work Phone: Hematology/Oncology Comment on above: Diffuse large B-cell lymphoma of intra-abdominal lymph nodes (HCC); Bone metastasis (HCC); Prostate cancer (HCC) 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); Bone metastasis (HCC); Prostate cancer (HCC); Langerhans cell histiocytoses (HCC) Start: 06-10-2022 End: 06-10-2022 ambulatory Treatment Rm 12 [facility] Work Phone: Hematology/Oncology Comment on above: Bone metastasis (HCC ) (Primary Dx); Prostate cancer (HCC); Diffuse large B-cell lymphoma of intra-abdominal lymph nodes (HCC) Start: 06-09-2022 ambulatory Sean Rodriguez MD Work Phone: Hematology/Oncology Comment on above: Zytiga Start: 06-01-2022 Telephone encounter Dustin berg DO Work Phone: Hematology/Oncology Comment on above: Results (Low potassi um) Start: 05-20-2022 End: 05-20-2022 ambulatory [facility] [facility] Work Phone: Hematology/Oncology Comment on above: Diffuse large B-cell lymphoma of intra-abdominal lymph nodes (HCC); Bone metastasis (HCC); Malignant neoplasm of prostate (HCC) 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); Lesion of liver; Prostate cancer (HCC) Start: 05-18-2022 Orders Only Dustin Savage Work Phone: Hematology/Oncology Comment on above: 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); Bone metastasis (HCC); Malignant neoplasm of prostate (HCC) Start: 05-04-2022 ambulatory Apollo serrano MD Work Phone: Family [facility] [place] Comment on above: insurance coverage f or inhaler Start: 05-04-2022 E-mail encounter fro m caregiver Apollo Melo MD Work Phone: [facility] [place] Start: 05-03-2022 Telephone encounter Apollo herbert MD Work Phone: Family [facility] [place] Comment on above: Insurance Authorizat ion (Fluticasone Furoate ) Start: 04-08-2022 Telephone encounter Maliha henderson RN Work Phone: Hematology/Oncology Comment on above: Sports Intern - O ther (ORAL ANTI-CANCER AGENTS FOLLOW-UP PHONE CALL) Start: 04-04-2022 End: 04-04-2022 Patient encounter procedure Sean Rodriguez MD Work Phone: [facility] Start: 04-04-2022 End: 04-04-2022 ambulatory [facility] [facility] Work Phone: Hematology/Oncology Comment on above: Bone metastasis (HCC ) (Primary Dx); Diffuse large B-cell lymphoma of intra-abdominal lymph nodes (HCC); Malignant neoplasm of prostate (HCC) 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); Bone metastasis (HCC); Prostate cancer (HCC) Start: 03-28-2022 ambulatory Jaqueline Gonzalez [facility] Start: 03-28-2022 Follow-up encounter Jaquelineisreal Gonzalez [facility] H ematology/Oncology Comment on above: Patient Education (Z ytiga follow-up oral chemo education & medication reconciliation) Start: 03-18-2022 Telephone encounter Maliha henderson RN Work Phone: Hematology/Oncology Comment on above: Care Coordination (O RAL ANTI-CANCER AGENTS EDUCATION) Refill Request Start: 03-18-2022 End: 03-18-2022 ambulatory Treatment Rm 12 [facility] Work Phone: Hematology/Oncology Comment on above: 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); Malignant neoplasm of prostate (HCC); Bone metastasis (HCC) Start: 03-07-2022 End: 03-07-2022 [facility] Comment on above: Bone metastasis (HCC ) (Primary Dx); Diffuse large B-cell lymphoma of intra-abdominal lymph nodes (HCC); Malignant neoplasm of prostate (HCC) Start: 03-07-2022 End: 03-07-2022 Patient encounter procedure Geoffrey Taylor [facility] Comment on above: SPP Oral Oncology/he matology - Treatment Referral (Abiraterone); Insurance Authorization (Pending PA submission) Start: 03-04-2022 End: 03-04-2022 Subsequent hospital visit by physician [facility] Work Phone: Nuclear Medicine Comment on above: Malignant neoplasm o f prostate (HCC) [C61] Start: 03-04-2022 End: 03-04-2022 ambulatory [facility] [facility] Work Phone: Hematology/Oncology Comment on above: Diffuse large B-cell lymphoma of intra-abdominal lymph nodes (HCC); Malignant neoplasm of prostate (HCC); Bone metastasis (HCC) Start: 03-04-2022 End: 03-04-2022 Subsequent hospital visit by physician Saida Nm [facility] Work Phone: Nuclear Medicine Comment on above: Malignant neoplasm o f prostate (HCC) [C61] Start: 02-25-2022 End: 02-25-2022 ambulatory Injection [facility] Work Phone: Hematology/Oncology Comment on above: 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); Lesion of liver; Malignant neoplasm of prostate (HCC) Incontinence medicat ion Start: 02-22-2022 End: 02-22-2022 Patient encounter procedure Amanda Corona DO Work Phone: Vascular Surgery Comment on above: Peripheral arterial disease (HCC) (Primary Dx) Start: 01-11-2022 End: 01-11-2022 Patient encounter procedure Apollo Melo MD Work Phone: [facility] [place] Comment on above: Chronic obstructive pulmonary disease, unspecified COPD type (HCC) (Primary Dx); Hyperlipidemia, unspecified hyperlipidemia type; PAD (peripheral artery disease) (HCC); Tobacco use disorder; Malignant neoplasm of prostate (HCC); Elevated PSA; Urinary incontinence, unspecified type; Internal hemorrhoids Start: 12-24-2021 End: 12-24-2021 Subsequent hospital visit by physician Reena Kenny MD Work Phone: Ambulatory Surgery Comment on above: History of colonic p olyps [Z86.010] Start: 12-13-2021 End: 12-13-2021 ambulatory [facility] [facility] Work Phone: Hematology/Oncology Comment on above: Malignant neoplasm o f prostate (HCC) (Primary Dx) Start: 11-16-2021 Telephone encounter Reena Danielson MD Work Phone: General Surgery Comment on above: 12-24-2021 Colon [facility] Start: 05-10-2021 End: 05-10-2021 Subsequent hospital visit by physician Xr [facility] [place] Work Phone: Radiology Comment on above: Suspected COVID-19 v irus infection [Z20.822] Start: 07-07-2020 End: 07-08-2020 Evaluation and management of inpatient Berna Kerri Work Phone: [facility] Oncology Procedures Date Procedure Procedure Detail Performing Clinician Start: 12-17-2024 Comprehensive metabo lic panel Francisco Javier Perez MD Work Phone: Start: 09-24-2024 Comprehensive metabo lic panel Francisco Javier Perez MD Work Phone: Start: 07-26-2024 Brncdilat rspse spmt ry pre&post-brncdilat admn Apollo Melo MD Work Phone: Start: 07-02-2024 Comprehensive metabo lic panel Francisco Javier Perez MD Work Phone: Start: 04-09-2024 Comprehensive metabo lic panel Francisco Javier Perez MD Work Phone: Start: 01-26-2024 Adult depression scr eening assessment Francisco Javier Perez MD Work Phone: Start: 01-17-2024 Comprehensive metabo lic panel Francisco Javier Perez MD Work Phone: Start: 10-27-2023 Comprehensive metabo lic panel Francisco Javier Perez MD Work Phone: Start: 08-02-2023 Basic metabolic pane l calcium total Francisco Javier Perez MD Work Phone: Start: 07-21-2023 Blood count complete auto&auto difrntl wbc Francisco Javier Perez MD Work Phone: Start: 05-16-2023 Dup-scan xtr veins unilateral/limited study Cydney Wolf CANDLE CUTTER.CANDY SPREADER HELPER Work Phone: Start: 05-16-2023 Radiologic examinati on femur minimum 2 views Cydney Wolf APRN.CANDY SPREADER HELPER Work Phone: Start: 05-11-2023 Basic metabolic pane l calcium total Francisco Javier Perez MD Work Phone: Start: 04-28-2023 Blood count complete auto&auto difrntl wbc Lisha Ernandez MD Work Phone: Start: 03-02-2023 Bone &/joint imaging whole body Sean Rodriguez MD Work Phone: Start: 03-02-2023 Ct abdomen & pelvis w/contrast material Sean Rodriguez MD Work Phone: Start: 03-02-2023 Blood count complete auto&auto difrntl wbc Dustin A Masci DO Work Phone: Start: 02-16-2023 Basic metabolic pane l calcium total Dustin A Masci DO Work Phone: Start: 09-01-2022 Basic metabolic pane l calcium total Sean Rodriguez MD Work Phone: Start: 08-16-2022 Ct abdomen & pelvis w/contrast material Sean Rodriguez MD Work Phone: Start: 08-12-2022 Blood count complete auto&auto difrntl wbc Sean Rodriguez MD Work Phone: Start: 06-28-2022 Blood count complete auto&auto difrntl wbc Sean Rodriguez MD Work Phone: Start: 06-10-2022 Basic metabolic pane l calcium total Dustin A Masci DO Work Phone: Start: 05-20-2022 Blood count complete auto&auto difrntl wbc Dustin A Masci DO Work Phone: Start: 04-04-2022 Blood count complete auto&auto difrntl wbc Sean Rodriguez MD Work Phone: Start: 03-18-2022 Blood count complete auto&auto difrntl wbc Sean Rodriguez MD Work Phone: Start: 03-04-2022 Bone &/joint imaging whole body Sean Rodriguez MD Work Phone: Start: 03-04-2022 Ct abdomen & pelvis w/contrast material Sean Rodriguez MD Work Phone: Start: 03-04-2022 Blood count complete auto&auto difrntl wbc Sean Rodriguez MD Work Phone: Start: 12-24-2021 Colon ca scrn not hi rsk ind Reena Kenny MD Work Phone: Start: 12-24-2021 Colonoscopy Reena Kenny MD Work Phone: Start: 07-13-2021 Adult depression scr eening assessment Lab/Port Wstr Work Phone: Start: 05-10-2021 Radiologic exam ches t 2 views Nury Boyd CANDLE CUTTER.CANDY SPREADER HELPER Work Phone: Start: 07-08-2020 Ct thorax w/contrast material Ludivina Crouch Work Phone: Start: 07-08-2020 Carcinoembryonic antigen cea Ludivina Willa Work Phone: Start: 07-08-2020 Bilirubin direct Inderp artap S Phangureh Work Phone: Start: 07-08-2020 Blood count complete auto&auto difrntl wbc Inderpartap S Phangureh Work Phone: Start: 07-08-2020 Comprehensive metabo lic panel Inderpartap S Phangureh Work Phone: Start: 07-08-2020 Procalcitonin (pct) Ind erpartap S Phangureh Work Phone: Start: 07-08-2020 Prothrombin time Inderp artap S Phangureh Work Phone: Start: 02-15-2016 Colonoscopy Lab/Port W str Work Phone: Start: 12-23-2014 Lipid 1996 panel - S ilan or Plasma Chavez Bernal CANDLE CUTTER.CANDY SPREADER HELPER Work Phone: Plan of Treatment Date Care Activity Detail Author Start: 04-28-2028 PROSTATE CANCER SCRE ENING DISCUSSION PROSTATE CANCER SCREENING DISCUSSION [facility] Start: 03-02-2028 PROSTATE CANCER SCRE ENING DISCUSSION PROSTATE CANCER SCREENING DISCUSSION [facility] Start: 02-18-2028 Diabetes Screening Diabetes Screenin g [facility] Start: 01-28-2028 PROSTATE CANCER SCRE ENING DISCUSSION PROSTATE CANCER SCREENING DISCUSSION [facility] Start: 12-18-2027 Diabetes Screening Diabetes Screenin g [facility] Start: 11-25-2027 PROSTATE CANCER SCRE ENING DISCUSSION PROSTATE CANCER SCREENING DISCUSSION [facility] Start: 09-24-2027 Diabetes Screening Diabetes Screenin g [facility] Start: 08-12-2027 PROSTATE CANCER SCRE ENING DISCUSSION PROSTATE CANCER SCREENING DISCUSSION [facility] Start: 07-02-2027 Diabetes Screening Diabetes Screenin g [facility] Start: 06-28-2027 PROSTATE CANCER SCRE ENING DISCUSSION PROSTATE CANCER SCREENING DISCUSSION [facility] Start: 05-20-2027 PROSTATE CANCER SCRE ENING DISCUSSION PROSTATE CANCER SCREENING DISCUSSION [facility] Start: 04-09-2027 Diabetes Screening Diabetes Screenin g [facility] Start: 04-04-2027 PROSTATE CANCER SCRE ENING DISCUSSION PROSTATE CANCER SCREENING DISCUSSION [facility] Start: 03-18-2027 PROSTATE CANCER SCRE ENING DISCUSSION PROSTATE CANCER SCREENING DISCUSSION [facility] Start: 03-04-2027 PROSTATE CANCER SCRE ENING DISCUSSION PROSTATE CANCER SCREENING DISCUSSION [facility] Start: 01-16-2027 Diabetes Screening Diabetes Screenin g [facility] Start: 12-24-[address] [facility] Start: 12-24-2026 COLORECTAL CANCER SCREENING COLORECTAL CANCER SCREENING [facility] Start: 12-24-2026 Screening for malign ant neoplasm of colon [facility] Start: 11-15-2026 PROSTATE CANCER SCRE ENING DISCUSSION PROSTATE CANCER SCREENING DISCUSSION [facility] Start: 10-27-2026 Diabetes Screening Diabetes Screenin g [facility] Start: 08-02-2026 Diabetes Screening Diabetes Screenin g [facility] Start: 07-21-2026 Diabetes Screening Diabetes Screenin g [facility] Start: 05-11-2026 DIABETES SCREEN DIABETES SCREEN [facility] Start: 05-11-2026 Diabetes Screening Diabetes Screenin g [facility] Start: 04-28-2026 DIABETES SCREEN DIABETES SCREEN [facility] Start: 03-02-2026 DIABETES SCREEN DIABETES SCREEN [facility] Start: 02-16-2026 DIABETES SCREEN DIABETES SCREEN [facility] Start: 01-27-2026 DIABETES SCREEN DIABETES SCREEN [facility] Start: 01-14-2026 Annual PCP Team Ui Lead Developer scot Disease Visit Annual PCP Team Chronic Disease Visit [facility] Start: 01-14-2026 Covid-19 Vaccine () Covid-19 Vaccine () [facility] Comment on above: Postponed from 05/12 (Declined at this time) Start: 11-24-2025 DIABETES SCREEN DIABETES SCREEN [facility] Start: 09-01-2025 DIABETES SCREEN DIABETES SCREEN [facility] Start: 08-12-2025 DIABETES SCREEN DIABETES SCREEN [facility] Start: 07-17-2025 End: 10-16-2025 Comprehensive metabolic 2000 panel - Serum or Plasma COMPREHENSIVE METABOLIC PANEL Lab Routine Hyperlipidemia, unspecified hyperlipidemia type PAD (peripheral artery disease) Expected: 07/17/2025 (Approximate), Expires: 10/16/2025 [facility] Comment on above: Expected: 07/17/2025 (Approximate), Expires: 10/16/2025 Start: 07-17-2025 End: 10-16-2025 Hemoglobin A1c in Blood HEMOGLOBIN A1C Lab Routine Elevated glucose Expected: 07/17/2025 (Approximate), Expires: 10/16/2025 [facility] Comment on above: Expected: 07/17/2025 (Approximate), Expires: 10/16/2025 Start: 07-17-2025 End: 10-16-2025 Lipid 1996 panel - Serum or Plasma LIPID PANEL, FASTING Lab Routine Hyperlipidemia, unspecified hyperlipidemia type PAD (peripheral artery disease) Expected: 07/17/2025 (Approximate), Expires: 10/16/2025 [facility] Work Phone: Comment on above: Expected: 07/17/2025 (Approximate), Expires: 10/16/2025 Start: 07-16-2025 Annual PCP Team Ui Lead Developer scot Disease Visit Annual PCP Team Chronic Disease Visit [facility] Start: 07-16-2025 Screening for malign ant neoplasm of lung Lung Cancer Screening [facility] Comment on above: Postponed from 07/10 (Declined at this time) Start: 07-10-2025 End: 07-10-2025 Patient encounter procedure 07/10/2025 8:40 AM EDT Office Visit Family [facility] [address] [place] [address] Apollo Melo MD [address] [place], [place] [phone] 6 month follow up [facility] [place] Comment on above: 6 month follow up Start: 06-28-2025 DIABETES SCREEN DI[facility]ETES SCREEN [facility] Start: 06-10-2025 DIABETES SCREEN [facility] Start: 05-20-2025 DIABETES SCREEN DIABETES SCREEN [facility] Start: 04-04-2025 DIABETES SCREEN DIABETES SCREEN [facility] Start: 03-18-2025 DIABETES SCREEN [facility]CREEN [facility] Start: 03-13-2025 End: 03-13-2025 ambulatory Hematology/Oncology Comment on above: OV(PORT)LAB 03/11/JIN STEWART TODAY* pt requests lab day prior to OV- no mon Start: 03-11-2025 End: 03-11-2025 ambulatory Hematology/Oncology Comment on above: (SO)CMP/PSA(PORT)* (SO)CMP(S)/PSA(PORT) * Start: 03-04-2025 DIABETES SCREEN DIABETES SCREEN [facility] Start: 02-18-2025 [facility] Start: 02-18-2025 Hospital admission, emergency, from emergency room, medical nature [facility] Start: 02-18-2025 [facility] Start: 02-18-2025 Catheterization of l eft heart [facility] Start: 02-17-2025 End: 02-17-2025 Patient encounter procedure Radiology Comment on above: Peripheral vascular disease [I73.9] Asymptomatic carotid artery stenosis, unspecified laterality [I65.29] Follow up Start: 01-25-2025 Annual PCP Team Ui Lead Developer scot Disease Visit Annual PCP Team Chronic Disease Visit [facility] Start: 01-25-2025 Anxiety Screening Anxiety Screening [facility] Start: 01-25-2025 Depression Screening Depression Scre ening [facility] Start: 01-14-2025 End: 04-15-2025 Hemoglobin A1c in Blood HEMOGLOBIN A1C Lab Routine Elevated glucose Expected: 01/14/2025 (Approximate), Expires: 04/15/2025 [facility] Comment on above: Expected: 01/14/2025 (Approximate), Expires: 04/15/2025 Start: 01-14-2025 End: 01-14-2025 Patient encounter procedure 01/14/2025 8:40 AM EDT Office Visit [facility] [address] [place], [place] [address] Apollo Melo MD [address] [place], [place] [phone] 6 mo f/u [facility] Comment on above: 6 mo f/u Start: 01-13-2025 End: 04-14-2025 Comprehensive metabolic 2000 panel - Serum or Plasma COMPREHENSIVE METABOLIC PANEL Lab Routine Hyperlipidemia, unspecified hyperlipidemia type Elevated glucose Expected: 01/13/2025 (Approximate), Expires: 04/14/2025 [facility] Comment on above: Expected: 01/13/2025 (Approximate), Expires: 04/14/2025 Start: 01-13-2025 Covid-19 Vaccine () Covid-19 Vaccine () [facility] Comment on above: Postponed from 05/12 (Declined at this time) Start: 01-13-2025 End: 04-14-2025 Hemoglobin A1c in Blood HEMOGLOBIN A1C Lab Routine Elevated glucose Expected: 01/13/2025 (Approximate), Expires: 04/14/2025 [facility] Comment on above: Expected: 01/13/2025 (Approximate), Expires: 04/14/2025 Start: 01-13-2025 End: 04-14-2025 Lipid 1996 panel - Serum or Plasma LIPID PANEL BASIC Lab Routine Hyperlipidemia, unspecified hyperlipidemia type Elevated glucose Expected: 01/13/2025 (Approximate), Expires: 04/14/2025 [facility] Comment on above: Expected: 01/13/2025 (Approximate), Expires: 04/14/2025 Start: 01-13-2025 RSV Vaccine (1 - Ris k 60-74 years 1-dose series) RSV Vaccine (1 - Risk 60-74 years 1-dose series) [facility] Comment on above: Postponed from 04/22 (Insurance Coverage) Start: 01-13-2025 Shingrix Vaccine (1 of 2) Montero grix Vaccine (1 of 2) [facility] Comment on above: Postponed from 04/22 (Declined at this time) Start: 01-08-2025 End: 01-08-2025 Patient encounter procedure Radiology Comment on above: Peripheral vascular disease (HCC) [I73.9] follow up after test ing Start: 01-07-2025 End: 01-07-2025 Patient encounter procedure Cat Scan Comment on above: Lesion of liver [K76 .9] Start: 12-19-2024 End: 12-19-2024 ambulatory Hematology/Oncology Comment on above: OV(PORT)LAB 12/17/JIN TMENT TODAY* pt requests lab day prior to OV- no mon Start: 12-17-2024 End: 12-17-2024 ambulatory 12/17/2024 7:45 AM EDT [facility] Hematology/Oncology [address] [place] [address] Wstr, Lab/Port [facility] [address] [place] [address] (SO)CMP/PSA(PORT)* Hematology/Oncology Comment on above: (SO)CMP/PSA(PORT)* Start: 11-26-2024 End: 02-25-2025 CREATININE BLD CREATININE BLD Lab Routine Screening for nephropathy Expected: 11/26/2024, Expires: 02/25/2025 [facility] Comment on above: Expected: 11/26/2024 , Expires: 02/25/2025 Start: 11-26-2024 End: 11-26-2024 Patient encounter procedure Vasculary Surgery Comment on above: Peripheral arterial disease (HCC) [I73.9] 1 year follow up aft er testing Start: 11-15-2024 DIABETES SCREEN DIABETES SCREEN [facility] Start: 09-26-2024 End: 09-26-2024 ambulatory Hematology/Oncology Comment on above: OV(PORT)LAB ATMENT TODAY* pt requests lab day prior to OV- no mon Start: 09-24-2024 End: 09-24-2024 ambulatory Hematology/Oncology Comment on above: (SO)CMP/PSA(PORT)/OV &ZOMETA 07/04* (SO)CMP/PSA(PORT)* Start: 09-11-2024 Advance Directive Discussion Advance Directive Discussion [facility] Start: 07-30-2024 End: 07-30-2024 Patient encounter procedure 07/30/2024 3:20 PM EST Office Visit Family [facility] [address] [place], [place] [phone] Apollo Melo MD [address] [place], [place] [phone] 6 month follow up [facility] Comment on above: 6 month follow up Start: 07-26-2024 End: 07-26-2024 Procedure 07/26/2024 8:00 AM EST Procedure PULM LAB [facility] [address] [place] [address] Wstr, Pulm Lab [facility] [address] [place] [address] Chronic obstructive pulmonary disease, unspecified COPD type (HCC) [J44.9]; Tobacco use disorder [F17.200] [facility] Comment on above: Chronic obstructive pulmonary disease, unspecified COPD type (HCC) [J44.9]; Tobacco use disorder [F17.200] Start: 07-17-2024 Annual PCP Team Ui Lead Developer scot Disease Visit Annual PCP Team Chronic Disease Visit [facility] Start: 07-16-2024 End: 07-16-2024 Patient encounter procedure 07/16/2024 9:40 AM EST Office Visit Family [facility] [address] [facility], [place] [phone] Apollo Melo MD [address] [place], [place] [phone] 6 month follow up (R/S from [facility] out on 07/30/24) [facility] Comment on above: 6 month follow up (R /S from [facility] out on 07/30/24) Start: 07-04-2024 End: 07-04-2024 ambulatory Hematology/Oncology Comment on above: OV(PORT)LAB 07/02/TR EATMENT TODAY* pt requests lab day prior to OV- no wed 2ND chairside OV(PORT)LA B 07/02/TREATMENT TODAY* pt requests lab day prior to OV- no wed Start: 07-02-2024 End: 07-02-2024 ambulatory 07/02/2024 7:45 AM EDT [facility] Center Hematology/Oncology [address] [place], [place] [phone] Wstr, Lab/[place] [facility] [address] [place], [place] [phone] (SO)CMP/PSA(PORT)/OV&ZOM ETA 07/04* Hematology/Oncology Comment on above: (SO)CMP/PSA(PORT)/OV &ZOMETA 07/04* Start: 05-12-2024 Covid-19 Vaccine ( season) Covid-19 Vaccine ( season) [facility] Start: 05-12-2024 Covid-19 Vaccine ( season) Covid-19 Vaccine ( season) [facility] Start: 05-12-2024 Influenza vaccination Influenza Vacc ine (#1) [facility] Start: 04-11-2024 End: 04-11-2024 ambulatory 04/11/2024 9:00 AM EDT Visit (SP) Office Hematology/Oncology [address] [place], [place] [phone] 2ND Hematology/Oncology Comment on above: 2ND Start: 04-10-2024 End: 04-10-2024 ambulatory Hematology/Oncology Comment on above: OV(PORT)LAB 04/09/MO ATMENT TODAY* pt requests lab day prior to OV Q3MO ZOMETA(PORT)Q3M O LUPRON/LAB 04/09,OV TODAY/AUTH EXP?* Start: 04-09-2024 End: 07-09-2024 Hemoglobin A1c in Blood [facility] Work Phone: Comment on above: Expected: 04/09/2024 (Approximate), Expires: 07/09/2024 Start: 04-09-2024 End: 04-09-2024 ambulatory Hematology/Oncology Comment on above: CMP(S)/PSA(PORT)OV * (SO)CMP/PSA(PORT)/ZO META 04/11* no wed Start: 01-26-2024 End: 01-26-2024 Patient encounter procedure 01/26/2024 3:20 PM EDT Office Visit Family [facility] [place] [address] [place], [place] [phone] Apollo Melo MD [address] [place] [address] 6 mo f/u [facility] [place] Comment on above: 6 mo f/u Start: 01-18-2024 End: 01-18-2024 ambulatory Hematology/Oncology Comment on above: OV(PORT)LAB 01/16/JIN TMENT TODAY* pt requests lab day prior to OV Q3MO ZOMETA(PORT)Q3M O LUPRON/AUTH EXP 04/09/24/LAB /8&OV TODAY/AUTH EXP?* Start: 01-14-2024 ANNUAL PCP TEAM REGISTERED REPRESENTATIVE SCOT DISEASE VISIT ANNUAL PCP TEAM CHRONIC DISEASE VISIT [facility] Start: 12-26-[address] [facility] Start: 09-12-2023 Covid-19 Vaccine () Covid-19 Vaccine () [facility] Start: 09-11-2023 Advance Directive Discussion Advance Directive Discussion [facility] Start: 09-11-2023 Behavioral Health Screening Behavioral Health Screening [facility] Start: 09-11-2023 Depression Assessment Depression Ass essment [facility] Start: 07-21-2023 End: 10-20-2023 Prostate specific Ag [Mass/volume] in Serum or Plasma [facility] Work Phone: Comment on above: Expected: 07/21/2023 , Expires: 10/20/2023 Start: 07-15-2023 ANNUAL PCP TEAM REGISTERED REPRESENTATIVE SCOT DISEASE VISIT ANNUAL PCP TEAM CHRONIC DISEASE VISIT [facility] Start: 05-12-2023 Covid-19 Vaccine () Covid-19 Vaccine () [facility] Start: 05-12-2023 Influenza vaccination INFLUENZA (#1) [facility] Start: 03-02-2023 End: 05-02-2023 CBC W Auto Differential panel - Blood CBC + DIFF Lab STAT Diffuse large B-cell lymphoma of intra-abdominal lymph nodes (HCC) Prostate cancer (HCC) Malignant neoplasm metastatic to bone (HCC) Expected: 03/02/2023, Expires: 05/02/2023 [facility] Work Phone: Comment on above: Expected: 03/02/2023 , Expires: 05/02/2023 Start: 03-02-2023 End: 05-02-2023 Comprehensive metabolic 2000 panel - Serum or Plasma COMP METABOLIC PANEL Lab STAT Diffuse large B-cell lymphoma of intra-abdominal lymph nodes (HCC) Prostate cancer (HCC) Malignant neoplasm metastatic to bone (HCC) Expected: 03/02/2023, Expires: 05/02/2023 [facility] Work Phone: Comment on above: Expected: 03/02/2023 , Expires: 05/02/2023 Start: 03-02-2023 End: 05-02-2023 Prostate specific Ag [Mass/volume] in Serum or Plasma [facility] Work Phone: Comment on above: Expected: 03/02/2023 , Expires: 05/02/2023 Start: 02-28-2023 End: 04-30-2023 CBC W Auto Differential panel - Blood CBC + DIFF Lab Routine Prostate cancer (HCC) Expected: 02/28/2023, Expires: 04/30/2023 [facility] Work Phone: Comment on above: Expected: 02/28/2023 , Expires: 04/30/2023 Start: 02-28-2023 End: 04-30-2023 Comprehensive metabolic 2000 panel - Serum or Plasma COMP METABOLIC PANEL Lab Routine Prostate cancer (HCC) Expected: 02/28/2023, Expires: 04/30/2023 [facility] Work Phone: Comment on above: Expected: 02/28/2023 , Expires: 04/30/2023 Start: 02-28-2023 End: 04-30-2023 Prostate specific Ag [Mass/volume] in Serum or Plasma PSA/PROSTSPECAG DIAG Lab Routine Prostate cancer (HCC) Expected: 02/28/2023, Expires: 04/30/2023 [facility] Work Phone: Comment on above: Expected: 02/28/2023 , Expires: 04/30/2023 Start: 02-27-2023 End: 09-28-2023 Bone &/joint imaging whole body NM BONE WHOLE BODY Radiology Routine Prostate cancer (HCC) Bone metastasis (HCC) Expected: 02/27/2023, Expires: 09/28/2023 [facility] Work Phone: Comment on above: Expected: 02/27/2023 , Expires: 09/28/2023 Start: 02-27-2023 End: 09-28-2023 Ct abdomen & pelvis w/contrast material CT ABD/PEL W IVCON Radiology Routine Diffuse large B-cell lymphoma of intra-abdominal lymph nodes (HCC) Prostate cancer (HCC) Bone metastasis (HCC) Expected: 02/27/2023, Expires: 09/28/2023 [facility] Work Phone: Comment on above: Expected: 02/27/2023 , Expires: 09/28/2023 Start: 02-15-2023 End: 04-17-2023 Basic metabolic 2000 panel - Serum or Plasma BASIC METABOLIC PNL Lab STAT Diffuse large B-cell lymphoma of intra-abdominal lymph nodes (HCC) Prostate cancer (HCC) Langerhans cell histiocytoses (HCC) Expected: 02/15/2023, Expires: 04/17/2023 [facility] Work Phone: Comment on above: Expected: 02/15/2023 , Expires: 04/17/2023 Start: 01-11-2023 ANNUAL PCP TEAM REGISTERED REPRESENTATIVE SCOT DISEASE VISIT ANNUAL PCP TEAM CHRONIC DISEASE VISIT [facility] Start: 11-24-2022 End: 01-24-2023 CBC W Auto Differential panel - Blood CBC + DIFF Lab STAT Diffuse large B-cell lymphoma of intra-abdominal lymph nodes (HCC) Prostate cancer (HCC) Bone metastasis (HCC) Expected: 11/24/2022, Expires: 01/24/2023 [facility] Work Phone: Comment on above: Expected: 11/24/2022 , Expires: 01/24/2023 Start: 11-24-2022 End: 01-24-2023 Comprehensive metabolic 2000 panel - Serum or Plasma COMP METABOLIC PANEL Lab STAT Diffuse large B-cell lymphoma of intra-abdominal lymph nodes (HCC) Prostate cancer (HCC) Bone metastasis (HCC) Expected: 11/24/2022, Expires: 01/24/2023 [facility] Work Phone: Comment on above: Expected: 11/24/2022 , Expires: 01/24/2023 Start: 11-24-2022 End: 01-24-2023 Lactate dehydrogenase [Enzymatic activity/volume] in Serum or Plasma LD LACTATE DEHYDRO Lab Routine Diffuse large B-cell lymphoma of intra-abdominal lymph nodes (HCC) Prostate cancer (HCC) Bone metastasis (HCC) Expected: 11/24/2022, Expires: 01/24/2023 [facility] Work Phone: Comment on above: Expected: 11/24/2022 , Expires: 01/24/2023 Start: 11-24-2022 End: 01-24-2023 Prostate specific Ag [Mass/volume] in Serum or Plasma PSA/PROSTSPECAG DIAG Lab Routine Diffuse large B-cell lymphoma of intra-abdominal lymph nodes (HCC) Prostate cancer (HCC) Bone metastasis (HCC) Expected: 11/24/2022, Expires: 01/24/2023 [facility] Work Phone: Comment on above: Expected: 11/24/2022 , Expires: 01/24/2023 Start: 09-11-2022 ADVANCE DIRECTIVE DISCUSSION ADVANCE DIRECTIVE DISCUSSION [facility] Start: 09-11-2022 DEPRESSION ASSESSMENT DEPRESSION ASS ESSMENT [facility] Start: 08-24-2022 COVID-19 VACCINE (5 - Pfizer risk series) COVID-19 VACCINE (5 - Pfizer risk series) [facility] Start: 08-16-2022 End: 07-28-2023 Ct abdomen & pelvis w/contrast material CT ABD/PEL W IVCON Radiology Routine Diffuse large B-cell lymphoma of intra-abdominal lymph nodes (HCC) Bone metastasis (HCC) Prostate cancer (HCC) Langerhans cell histiocytoses (HCC) Expected: 08/16/2022, Expires: 07/28/2023 [facility] Work Phone: Comment on above: Expected: 08/16/2022 , Expires: 07/28/2023 Start: 07-14-2022 End: 09-13-2022 Comprehensive metabolic 2000 panel - Serum or Plasma COMP METABOLIC PANEL Lab Routine Hyperlipidemia, unspecified hyperlipidemia type Expected: 07/14/2022, Expires: 09/13/2022 [facility] Work Phone: Comment on above: Expected: 07/14/2022 , Expires: 09/13/2022 Start: 07-14-2022 End: 09-13-2022 LIPID PANEL BASIC LIPID PANEL BASIC Lab Routine Hyperlipidemia, unspecified hyperlipidemia type Expected: 07/14/2022, Expires: 09/13/2022 [facility] Work Phone: Comment on above: Expected: 07/14/2022 , Expires: 09/13/2022 Start: 07-13-2022 Adult depression screening assessment DEPRESSION SCREENING [facility] Start: 07-13-2022 ANNUAL PCP TEAM REGISTERED REPRESENTATIVE SCOT DISEASE VISIT ANNUAL PCP TEAM CHRONIC DISEASE VISIT [facility] Start: 05-19-2022 End: 07-19-2022 CBC W Auto Differential panel - Blood CBC + DIFF Lab STAT Diffuse large B-cell lymphoma of intra-abdominal lymph nodes (HCC) Bone metastasis (HCC) Malignant neoplasm of prostate (HCC) Expected: 05/19/2022, Expires: 07/19/2022 [facility] Work Phone: Comment on above: Expected: 05/19/2022 , Expires: 07/19/2022 Start: 05-19-2022 End: 07-19-2022 Comprehensive metabolic 2000 panel - Serum or Plasma COMP METABOLIC PANEL Lab STAT Diffuse large B-cell lymphoma of intra-abdominal lymph nodes (HCC) Bone metastasis (HCC) Malignant neoplasm of prostate (HCC) Expected: 05/19/2022, Expires: 07/19/2022 [facility] Work Phone: Comment on above: Expected: 05/19/2022 , Expires: 07/19/2022 Start: 05-19-2022 End: 07-19-2022 Lactate dehydrogenase [Enzymatic activity/volume] in Serum or Plasma LD LACTATE DEHYDRO Lab Routine Diffuse large B-cell lymphoma of intra-abdominal lymph nodes (HCC) Bone metastasis (HCC) Malignant neoplasm of prostate (HCC) Expected: 05/19/2022, Expires: 07/19/2022 [facility] Work Phone: Comment on above: Expected: 05/19/2022 , Expires: 07/19/2022 Start: 05-19-2022 End: 07-19-2022 Prostate specific Ag [Mass/volume] in Serum or Plasma PSA/PROSTSPECAG DIAG Lab Routine Diffuse large B-cell lymphoma of intra-abdominal lymph nodes (HCC) Bone metastasis (HCC) Malignant neoplasm of prostate (HCC) Expected: 05/19/2022, Expires: 07/19/2022 [facility] Work Phone: Comment on above: Expected: 05/19/2022 , Expires: 07/19/2022 Start: 05-12-2022 Influenza vaccination INFLUENZA (#1) [facility] Start: 10-28-2021 COVID-19 VACCINE (4 - Booster for Pfizer series) COVID-19 VACCINE (4 - Booster for Pfizer series) [facility] Start: 10-20-2021 COVID-19 VACCINE (4 - Booster for Pfizer series) COVID-19 VACCINE (4 - Booster for Pfizer series) [facility] Start: 09-22-2021 COVID-19 VACCINE (4 - Booster for Pfizer series) COVID-19 VACCINE (4 - Booster for Pfizer series) [facility] Start: 09-11-2021 ADVANCE DIRECTIVE DISCUSSION ADVANCE DIRECTIVE DISCUSSION [facility] Start: 09-11-2021 DEPRESSION ASSESSMENT DEPRESSION ASS ESSMENT [facility] Start: 07-10-2021 Influenza vaccination LUNG CANCER SC REENING [facility] Start: 07-10-2021 Screening for malign ant neoplasm of lung Lung Cancer Screening [facility] Start: 05-08-2021 PNEUMOCOCCAL: 65+ (3 - PCV) PNEUMOCOCCAL: 65+ (3 - PCV) [facility] Start: 02-14-[address] [facility] Start: 02-14-2021 COLORECTAL CANCER SCREENING COLORECTAL CANCER SCREENING [facility] Start: 05-12-2020 Influenza vaccination Flu vaccine (# 1) [place], [place] Start: 12-24-2019 Lipid 1996 panel - S ilan or Plasma Lipid Screening [facility] Start: 12-24-2019 Lipid panel Lipid Screening [facility] Start: 12-24-[address] [facility] Start: 04-11-2017 End: 04-11-2017 Appointment Appointment [facility] Work Phone: Start: 04-11-2017 End: 04-11-2017 Follow-up visit Follow Up as needed [facility] Work Phone: Start: 03-29-2017 End: 03-30-2017 Exc [id number] mlg+theresa 2.1-3 Excision Malignant Lesion Hand/Feet/Scalp/Neck/Gen itals 2.1-3.0 cm [facility] Work Phone: Start: 12-04-2016 FECAL OCCULT BLOOD FECAL OCCULT BLOO D [facility] Start: 12-04-2016 Screening for malign ant neoplasm of colon Fecal Occult Blood [facility] Start: 2014 RSV Vaccine (1 - 1-d ose 60+ series) RSV Vaccine (1 - 1-dose 60+ series) [facility] Start: 2014 RSV Vaccine (1 - Ris k 60-74 years 1-dose series) RSV Vaccine (1 - Risk 60-74 years 1-dose series) [facility] Start: 2004 SHINGRIX VACCINE (1 of 2) MONTERO GRIX VACCINE (1 of 2) [facility] Start: 1999 COLOGUARD (FIT-DNA) COLOGUARD (FIT-D NA) [facility] Start: [address] COLONOGRAPHY [facility] Start: 1999 Screening for malign ant neoplasm of colon [facility] Start: 1999 SIGMOIDOSCOPY SIGMOIDOSCOPY [facility] Start: 1984 Zoledronic acid therapy ALPHA- 1 ANT[address]IENCY SCREENING [facility] Start: 1973 SHINGRIX VACCINE (1 of 2) MONTERO GRIX VACCINE (1 of 2) [facility] Start: [address] [facility] Start: 1954 ABDOMINAL AORTIC ANE URYSM SCREENING ABDOMINAL AORTIC ANEURYSM SCREENING [facility] Start: 1954 Abdominal aortic ane urysm screening Abdominal Aortic Aneurysm Screening [facility] 25-hydroxyvitamin D3 [Mass/volume] in Serum or Plasma VITAMIN D 25 HYDROXY Lab Routine Malignant neoplasm of prostate (HCC) Bone metastasis (HCC) 04/04/2022 9:31 AM EDT [facility] Work Phone: End: 07-08-2020 AFP Tumor Marker AFP Tumor Marker Lab Routine One Time for 1 Occurrences starting 07/08/2020 until 07/08/[address] [facility] Comment on above: One Time for 1 Occur rences starting 07/08/2020 until 07/08/2020 AFP Tumor Marker AFP Tumor Marke r Lab Routine 07/08/2020 6:11 AM EDT [facility] Anion gap in Serum o r Plasma [facility] Bilirubin.direct [Mass/Vol] BILIRUBIN, DIRECT Lab Routine Daily until discontinued starting 07/09/[address] [facility] Comment on above: Daily until disconti nued starting 07/09/2020 BUN/Creatinine ratio [facility] Calcium [Mass/volume ] in Serum or Plasma [facility] End: 07-08-2020 Cancer Antigen 19-9 Cancer Antigen 19-9 Lab Routine One Time for 1 Occurrences starting 07/08/2020 until 07/08/[address] [facility] Comment on above: One Time for 1 Occur rences starting 07/08/2020 until 07/08/2020 Cancer Antigen 19-9 Cancer Antig en 19-9 Lab Routine 07/08/2020 6:11 AM EDT [facility] Carbon dioxide, tota l [Moles/volume] in Central venous blood [facility] CBC Auto Differential [facility] Comment on above: Tomorrow AM until di scontinued starting 07/09/2020 Comprehensive metabo lic 2000 panel Comprehensive Metabolic Panel Lab Routine Daily until discontinued starting 07/09/[address] [facility] Comment on above: Daily until disconti nued starting 07/09/2020 Comprehensive metabo lic 2000 panel - Serum or Plasma COMP METABOLIC PANEL Lab STAT Diffuse large B-cell lymphoma of intra-abdominal lymph nodes (HCC) Bone metastasis (HCC) Prostate cancer (HCC) Langerhans cell histiocytoses (HCC) 08/12/2022 8:16 AM EST [facility] Work Phone: End: 10-26-2024 Comprehensive metabolic 2000 panel - Serum or Plasma COMP METABOLIC PANEL Lab Routine Malignant neoplasm metastatic to bone (HCC) Once per month for 12 Occurrences starting 10/27/2023 until 10/26/2024, 1 completed [facility] Work Phone: Comment on above: Once per month for 1 2 Occurrences starting 10/27/2023 until 10/26/2024, 1 completed Creatinine [Mass/vol ume] in Serum or Plasma [facility] Ct abdomen & pelvis w/contrast material CT ABD/PEL W IVCON Radiology Routine Malignant neoplasm of prostate (HCC) Diffuse large B-cell lymphoma of intra-abdominal lymph nodes (HCC) 03/04/2022 9:27 AM EDT [facility] Work Phone: End: 01-18-2026 CT Abdomen and Pelvis W contrast IV CT ABD/PEL W IVCON Radiology Routine Lesion of liver Diffuse large B-cell lymphoma of intra-abdominal lymph nodes (HCC) 1 Occurrences starting 12/19/2024 until 01/18/2026 [facility] Work Phone: Comment on above: 1 Occurrences starti ng 12/19/2024 until 01/18/2026 CT Abdomen and Pelvi s W contrast IV CT ABD/PEL W IVCON Radiology Routine Lesion of liver Diffuse large B-cell lymphoma of intra-abdominal lymph nodes (HCC) 01/07/2025 10:36 AM EDT [facility] Work Phone: End: 12-26-2025 CTA Abdominal, Pelvis and Lower extremity vessels W contrast IV CTA ABD/PEL LOWER EXTREM W IVCON Radiology Routine Peripheral vascular disease (HCC) 1 Occurrences starting 11/26/2024 until 12/26/2025 [facility] Comment on above: 1 Occurrences starti ng 11/26/2024 until 12/26/2025 EKG 12 Lead EKG 12 Lead ECG Routine 07/07/2020 9:43 PM EDT [facility] [place] [place] Erythrocyte mean corpuscular volume determination [facility] Glucose [Mass/volume ] in Serum or Plasma [facility] Hematocrit [Volume Fraction] of Blood [facility] Hemoglobin [Mass/vol ume] in Blood [facility] Lactate dehydrogenas e [Enzymatic activity/volume] in Serum or Plasma LD LACTATE DEHYDRO Lab Routine Diffuse large B-cell lymphoma of intra-abdominal lymph nodes (HCC) Bone metastasis (HCC) Prostate cancer (HCC) Langerhans cell histiocytoses (HCC) 08/12/2022 8:16 AM EST [facility] Work Phone: Leukocytes [#/volume ] in Blood [facility] Magnesium [Mass/Vol] Magnesium L ab Routine Daily until discontinued starting 07/09/2020 [place] Comment on above: Daily until disconti nued starting 07/09/2020 Mean corpuscular hemoglobin concentration determination [facility] Mean corpuscular hemoglobin determination [facility] Measurement of renal function [facility] End: 07-07-2020 MRI ABDOMEN W WO CONTRAST MRI ABDOMEN W WO CONTRAST Imaging Routine Once for 1 Occurrences starting 07/07/2020 until 07/07/[address] [facility] [place] Comment on above: Once for 1 Occurrenc es starting 07/07/2020 until 07/07/2020 Nebulizer therapy [facility] Treatment Respiratory Care Routine 0600, 1000, 1400, 1800, 2200 until discontinued starting 07/07/[address] [facility] [place] Comment on above: 0600, 1000, 1400, 18 00, 2200 until discontinued starting 07/07/[address] [facility] Neutrophil percent differential count [facility] Oxygen therapy [[facility]] Initiate Oxygen Therapy Protocol Respiratory Care Routine Daily until discontinued starting 07/07/[address] [facility] [place] Comment on above: Daily until disconti nued starting 07/07/[address] [facility] Work Phone: Phosphate [Mass/Vol] Phosphorus Lab Routine Daily until discontinued starting 07/09/[address] [facility] [place] Comment on above: Daily until disconti nued starting 07/09/2020 Platelets [#/volume] in Blood [facility] Potassium measurement [facility] Prostate specific Ag [Mass/volume] in Serum or Plasma PSA/PROSTSPECAG DIAG Lab Routine Diffuse large B-cell lymphoma of intra-abdominal lymph nodes (HCC) Malignant neoplasm of prostate (HCC) Bone metastasis (HCC) 03/04/2022 7:27 AM [facility] Work Phone: Prostate specific Ag [Mass/volume] in Serum or Plasma PSA/PROSTSPECAG DIAG Lab Routine Diffuse large B-cell lymphoma of intra-abdominal lymph nodes (HCC) Malignant neoplasm of prostate (HCC) Bone metastasis (HCC) 03/18/2022 10:51 AM [facility] Work Phone: Prostate specific Ag [Mass/volume] in Serum or Plasma PSA/PROSTSPECAG DIAG Lab Routine Malignant neoplasm of prostate (HCC) Bone metastasis (HCC) 04/04/2022 9:31 AM [facility] Work Phone: Prostate specific Ag [Mass/volume] in Serum or Plasma PSA/PROSTSPECAG DIAG Lab Routine Diffuse large B-cell lymphoma of intra-abdominal lymph nodes (HCC) Bone metastasis (HCC) Malignant neoplasm of prostate (HCC) 05/20/2022 9:28 AM [facility] Work Phone: Prostate specific Ag [Mass/volume] in Serum or Plasma PSA/PROSTSPECAG DIAG Lab Routine Diffuse large B-cell lymphoma of intra-abdominal lymph nodes (HCC) Bone metastasis (HCC) Prostate cancer (HCC) 06/28/2022 9:25 AM [facility] Work Phone: Prostate specific Ag [Mass/volume] in Serum or Plasma PSA/PROSTSPECAG DIAG Lab Routine Diffuse large B-cell lymphoma of intra-abdominal lymph nodes (HCC) Bone metastasis (HCC) Prostate cancer (HCC) Langerhans cell histiocytoses (HCC) 08/12/2022 8:16 AM [facility] Work Phone: Prostate specific Ag [Mass/volume] in Serum or Plasma PSA/PROSTSPECAG DIAG Lab Routine Prostate cancer (HCC) 04/28/2023 8:28 AM [facility] Work Phone: Prostate specific Ag [Mass/volume] in Serum or Plasma PSA/PROSTSPECAG DIAG Lab Routine Malignant neoplasm metastatic to bone (HCC) 10/27/2023 9:24 AM [facility] Work Phone: End: 10-26-2024 Prostate specific Ag [Mass/volume] in Serum or Plasma PSA/PROSTSPECAG DIAG Lab Routine Malignant neoplasm metastatic to bone (HCC) Once per month for 12 Occurrences starting 10/27/2023 until 10/26/2024, 1 completed [facility] Work Phone: Comment on above: Once per month for 1 2 Occurrences starting 10/27/2023 until 10/26/2024, 1 completed Prostate specific Ag [Mass/volume] in Serum or Plasma PSA/PROSTSPECAG DIAG Lab Routine Malignant neoplasm metastatic to bone (HCC) 01/17/2024 7:48 AM [facility] Work Phone: Prostate specific Ag [Mass/volume] in Serum or Plasma PSA/PROSTSPECAG DIAG Lab Routine Malignant neoplasm metastatic to bone (HCC) 04/09/2024 7:32 AM [facility] Work Phone: Prostate specific Ag [Mass/volume] in Serum or Plasma PSA/PROSTSPECAG DIAG Lab Routine Malignant neoplasm metastatic to bone (HCC) 07/02/2024 7:43 AM [facility] Work Phone: Prostate specific Ag [Mass/volume] in Serum or Plasma PSA/PROSTSPECAG DIAG Lab Routine Malignant neoplasm metastatic to bone (HCC) 09/24/2024 7:42 AM [facility] Work Phone: Prostate specific Ag [Mass/volume] in Serum or Plasma PROSTATE-SPECIFIC ANTIGEN DIAGNOSTIC Lab Routine Prostate cancer (HCC) Malignant neoplasm metastatic to bone (HCC) 12/17/2024 7:45 AM [facility] Work Phone: [facility] [place] [place] Comment on above: Daily until disconti nued starting 07/09/2020 End: 02-22-2023 PVR LEG W/EXC [facility] PVR LEG W/EXC [facility] Vascular Lab Routine Peripheral arterial disease (HCC) 1 Occurrences starting 02/22/2022 until 02/22/2023 [facility] Work Phone: Comment on above: 1 Occurrences starti ng 02/22/2022 until 02/22/2023 Red blood cell count [facility] Red cell distributio n width determination [facility] Serum chloride measurement [facility] Sodium measurement [facility] End: 08-15-2025 SPIROMETRY - BASELINE AND POST DILATOR SPIROMETRY - BASELINE AND POST DILATOR PFT Routine Chronic obstructive pulmonary disease, unspecified COPD type (HCC) Tobacco use disorder 1 Occurrences starting 07/16/2024 until 08/15/2025 [facility] Work Phone: Comment on above: 1 Occurrences starti ng 07/16/2024 until 08/15/2025 SPIROMETRY - BASELIN E AND POST DILATOR SPIROMETRY - BASELINE AND POST DILATOR PFT Routine Chronic obstructive pulmonary disease, unspecified COPD type (HCC) Tobacco use disorder 07/26/2024 8:06 AM EST [facility] Work Phone: Spirometry panel Incentive jesica metry RT Respiratory Care Routine Every 2hr while awake until discontinued starting 07/08/[address] [facility] [place] Comment on above: Every 2hr while awak e until discontinued starting 07/08/2020 Testosterone [Mass/volume] in Serum or Plasma TESTOSTERONE TOTAL Lab Routine Malignant neoplasm of prostate (HCC) Bone metastasis (HCC) 04/04/2022 9:31 AM EDT [facility] Work Phone: Troponin T.cardiac [Mass/volume] in Serum or Plasma by High sensitivity method [facility] Troponin T.cardiac [Mass/volume] in Serum or Plasma by High sensitivity method [facility] Troponin T.cardiac [Mass/volume] in Serum or Plasma by High sensitivity method [facility] Urea nitrogen [Mass/volume] in Serum or Plasma [facility] End: 11-26-2025 US Carotid arteries - bilateral US CAROTID ARTERIES [facility] Vascular Lab Routine Asymptomatic carotid artery stenosis, unspecified laterality 1 Occurrences starting 11/26/2024 until 11/26/2025 [facility] Work Phone: Comment on above: 1 Occurrences starti ng 11/26/2024 until 11/26/2025 End: 11-27-2024 US Lower extremity artery - bilateral PVR ANK/VEGA/TOE [facility] Vascular Lab Routine Peripheral arterial disease (HCC) 1 Occurrences starting 11/28/2023 until 11/27/2024 [facility] Work Phone: Comment on above: 1 Occurrences starti ng 11/28/2023 until 11/27/2024 [facility] Immunizations Immunization Date Immunization Notes Care Provider [facility] 06-13-2024 influenza, high dose seasonal, preservative-free Francisco Javier Perez MD Work Phone: [facility] 07-18-2023 COVID-19 vaccine, ag e 12+ yr, 2022- season (MODERNA) [facility] Work Phone: 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 06-19-2023 influenza virus vacc ine, unspecified formulation Francisco Javier Perez MD Work Phone: [facility] 06-29-2022 COVID-19 booster vaccine, age 12+ yr, bivalent (PFIZER-BIONTECH) Apollo Melo MD Work Phone: [facility] 06-18-2022 influenza, high dose seasonal, preservative-free [facility] Work Phone: [facility] 06-18-2022 influenza, high-dose , quadrivalent vaccine (FLUZONE HIGH DOSE QUADRIVALENT) Apollo Melo MD Work Phone: [facility] 07-13-2021 influenza, high-dose , quadrivalent vaccine (FLUZONE HIGH DOSE QUADRIVALENT) [facility] Work Phone: [facility] 06-12-[address] Apollo Melo MD Work Phone: [facility] 05-08-2020 influenza, injectabl e, quadrivalent, preservative free Apollo Melo MD Work Phone: [facility] 05-08-2020 pneumococcal polysaccharide vaccine, 23 valent [facility] Work Phone: [facility] Work Phone: 05-20-2019 pneumococcal conjuga te vaccine, 13 valent Apollo Melo MD Work Phone: [facility] 05-20-2019 Seasonal trivalent influenza vaccine, adjuvanted, preservative free Apollo Melo MD Work Phone: [facility] 06-22-2018 pneumococcal polysaccharide vaccine, 23 valent Apollo Melo MD Work Phone: [facility] 06-15-2018 influenza, injectabl e, quadrivalent, preservative free Apollo Melo MD Work Phone: [facility] 12-07-2017 hepatitis B vaccine, adult dosage Apollo Melo MD Work Phone: [facility] 07-06-2017 hepatitis B vaccine, adult dosage Apollo Melo MD Work Phone: [facility] 06-06-2017 hepatitis A vaccine, adult dosage Apollo Melo MD Work Phone: [facility] 06-06-2017 hepatitis B vaccine, adult dosage Apollo Melo MD Work Phone: [facility] 06-17-2016 influenza, injectabl e, quadrivalent, contains preservative [facility] Work Phone: [facility] 06-11-2015 influenza, injectabl e, quadrivalent, contains preservative [facility] Work Phone: [facility] 06-26-2014 influenza, seasonal, injectable [facility] Work Phone: [facility] Work Phone: 12-25-2013 tetanus toxoid, redu teri diphtheria toxoid, and acellular pertussis vaccine, adsorbed [facility] Work Phone: [facility] Work Phone: 07-02-2013 influenza virus vacc ine, unspecified formulation [facility] Work Phone: [facility] 08-17-2012 influenza virus vacc ine, unspecified formulation [facility] Work Phone: [facility] 08-17-2012 pneumococcal polysaccharide vaccine, 23 valent [facility] Work Phone: [facility] Payers Date Payer Category Payer Medicare HUMANA MEDICARE HUMANA GOLD PLUS [id number] 2021-Present [phone] [place] [phone] [facility] [id number] 2019 Medicare [id number] 2019 Medicare (Managed Care) HUMANA G OLD PLUS [id number] 2019 Private Health Insurance [id number] [place] [id number] Social History Date Type Detail Facility Start: 07-08-2020 End: 07-16-2024 Tobacco smoking status NHIS Current every day smoker [facility] Start: 01-01-1979 End: 07-09-2020 History of tobacco use Cigarette Smoker [facility] [employer] [facility] Start: 07-08-2020 End: 01-13-2023 Cigarettes smoked current (pack per day) - Reported [facility] Work Phone: Start: 07-08-2020 End: 07-16-2024 Tobacco use and exposure Never used [facility] [email or web address] Start: 07-08-2020 End: 01-14-2025 Alcohol intake Ex-drinker (finding) [facility] [email or web address] Start: 07-07-2020 History SDOH [facility] Start: 07-07-2020 History SDOH Alcohol Std Drinks [address] [facility] Start: 1955 Sex Assigned At Not on file [facility] [employer] Start: 04-10-2021 End: 07-15-2022 Exposure to SARS-CoV-2 (event) Not sure [facility] Start: 08-12-2021 History SDOH Alcohol Comment [facility] Start: 01-15-2022 End: 01-25-2022 Exposure to SARS-CoV-2 (event) Yes [facility] Work Phone: Start: 1955 Sex Assigned At Male C [facility] Start: 07-10-2020 End: 01-13-[address] [facility] Work Phone: Adult Depression Screening Assessment [address] [facility] Work Phone: (I/We) worried wheeliza er (my/our) food would run out before (I/we) got money to buy more. DK or Refused [facility] Work Phone: Start: 03-29-2022 Gender identity Identifies as male gender (finding) [facility] Start: 03-29-2022 Sexual orientation Heterosexual (fin oma) [facility] Start: 05-10-2021 Alcoholic beverage intake Current drinker of alcohol (finding) [facility] Start: 09-15-2008 [facility] Start: 02-18-2025 [facility] Start: 09-01-2020 Alcohol Alcohol [facility] Start: 09-01-2020 Lives Lives [facility] Start: 07-07-2020 Tobacco Use Tobacco Use [facility] Medical Equipment Procedure Code Equipment Code Equipment Origin al Text Equipment Identifier Dates [place] [employer] M ri 8fr Plastic [employer] Implantable Infusion - [id number] Start: 07-30-2020 Comment on above: Description: PowerPo rt MRI Implantable Port Goals Date Patient Goal Desired Activity /State Personal health goal Functional Status Date Assessment Result Facility 07-15-2020 Are you deaf, or do you have serious difficulty hearing No 07/15/2020 4:14 PM Vianey Pearce RN No [facility] 07-15-2020 Are you blind, or do you have serious difficulty seeing, even when wearing glasses No 07/15/2020 4:14 PM Vianey Pearce RN No [facility] 07-15-2020 Do you have serious difficulty walking or climbing stairs No 07/15/2020 4:14 PM Vianey Pearce RN No [facility] 07-15-2020 Do you have difficul ty dressing or bathing No 07/15/2020 4:14 PM Vianey Pearce RN No [facility] 07-15-2020 Because of a physica l, mental, or emotional condition, do you have difficulty doing errands alone such as visiting a physician's office or shopping No 07/15/2020 4:14 PM Vianey Pearce RN No [facility] Mental Status Date Assessment Result Facility 02-18-2025 Cognitive function Voice/Name [facility] Work Phone: 07-15-2020 Because of a physica l, mental, or emotional condition, do you have serious difficulty concentrating, remembering, or making decisions No 07/15/2020 4:14 PM Vianey Pearce RN No [facility] Clinical Notes 10-20-2011 to 02-17-2025 Telephone Encounter - Maliha Lacy RN - 02/17/2025 4:33 PM EDTTelephone Encounter - Maliha Lacy RN - 02/17/2025 4:33 PM Apollo Ríos MD - 01/14/2025 8:40 AM EDT Note Date & Type Note Facility 02-17-2025 Telephone encounter Note See other note from today. Keep schedule as is. Nemo Lacy RN [facility] Work Phone: 02-17-2025 Miscellaneous Notes See other note from today. Keep schedule as is. Nemo Lacy RN Please advise. documented in this encounter [facility] 02-17-2025 Telephone encounter Note Call to patient, he states he slept this afternoon and feels better. He will see how the evening goes and will reach out to Dr. Melo for an appointment. Reminded of follow up with our office on 03/13/25. Nemo Lacy RN [facility] Work Phone: 02-17-2025 Miscellaneous Notes Call to patient, he states he slept this afternoon and feels better. He will see how the evening goes and will reach out to Dr. Melo for an appointment. Reminded of follow up with our office on 03/13/25. eNmo Lacy RN Discussed with Dr. Perez. Patient to call PCP for evaluation. Nemo Lacy RN Care Coordination Triage Note Cancer [facility] Part Situation: Patient reports Pain--Generalized Background: Prostate- on Xtandi, Lupron and Zometa History of Lymphoma Assessment: Call to patient, states pain in sternum up to his throat has been keeping him up at night. It's like when he was first diagnosed with lymphoma. Describes as achy and not constant. Worse at night when he lies down. Pain comes and goes and sometimes get to be a 9 or 10/10. He will get up and walk around, take deep breaths and that will make it feel better. Denies shortness of breath, chest pressure, heart burn, trouble swallowing, pain with swallowing. He doesn't want to go to the ED but wondering who he needs to go see for evaluation. Recommendations: Per RNCC, patient directed to: Manage at home. Instructions provided. Will update Dr. Perez and call back with further instructions. Maliha Lacy RN February 17, 2025 11:51 AM documented in this encounter [facility] 02-17-2025 Telephone encounter Note Discussed with Dr. Perez. Patient to call PCP for evaluation. Nemo Lacy RN [facility] 02-17-2025 Telephone encounter Note Care Coordination Triage Note Cancer [facility] Part Situation: Patient reports Pain--Generalized Background: Prostate- on Xtandi, Lupron and Zometa History of Lymphoma Assessment: Call to patient, states pain in sternum up to his throat has been keeping him up at night. It's like when he was first diagnosed with lymphoma. Describes as achy and not constant. Worse at night when he lies down. Pain comes and goes and sometimes get to be a 9 or 10/10. He will get up and walk around, take deep breaths and that will make it feel better. Denies shortness of breath, chest pressure, heart burn, trouble swallowing, pain with swallowing. He doesn't want to go to the ED but wondering who he needs to go see for evaluation. Recommendations: Per RNCC, patient directed to: Manage at home. Instructions provided. Will update Dr. Perez and call back with further instructions. Maliha Lacy RN February 17, 2025 11:[address] [facility] 02-17-2025 Telephone encounter Note Please advise. [facility] Work Phone: 01-14-2025 History of Presen t illness Narrative Chief Complaint Patient presents with: 6 Month Exam HPI Amie Killian is a 69 year old male who presents here today for 6 month follow up. Spoke with pt about getting him set up for a Medicare Wellness, he declined, stated he doesn't want it. Advanced directive on file. Enjoys golfing. No bowel, Gi, or urinary concerns. Has urinary incontinence, wears pads. Uses procto-chen for rectum prn and colace 100 mg prn. PAD & Lipid: Follows with Vascular Dr. Corona. He has cramping feeling in the legs and some numbness to the toes. Taking Pletal 100 mg 1 pill BID. Watching diet and exercising 3-4 x a week and plays golf regularly. Pt had PVR done in November. No chest pains, dizziness, or SOB. Follows with hem/onc Dr. Perez for prostate cancer, liver lesion, and Diffuse large B-cell lymphoma of intra-abdominal lymph nodes . Taking Xtandi 40 mg 4 pills once a day. COPD: Continues to smoke half to 1 ppd, thinks about quitting but not ready at this time. Uses Breo Ellipita once daily and this is working well for him. Has not used ProAir Inhaler in quite some time. Overall feels his breathing is doing pretty well. Had spirometry done in Jul. Hx of elevated glucose. Labs monitored. Past medical history, appointments, medications, allergies reviewed. Previous Medical History PAST MEDICAL HISTORY Diagnosis Date Fistula Lesion of liver 06/10/2021 Non Hodgkin's lymphoma (HCC) PAD (peripheral artery disease) Prostate cancer (HCC) 12/2011 Previous Surgical History PAST SURGICAL HISTORY Procedure Laterality Date ABDOMINAL SURGERY HX APPENDECTOMY HX COLONOSCOPY 12/24/2021 repeat in 5 years COLONOSCOPY FLX DX W/COLLJ SPEC WHEN PFRMD 02/15/2016 Colonoscopy IMPLANT CATH INSERTION (AG) 07/30/2020 IVAD right chest INCISE FINGER TENDON SHEATH Left 08/26/2021 Left middle and ring trigger finger releases PAST SURGICAL HISTORY OF appendectomy PAST SURGICAL HISTORY OF tonsilectomy PROSTATECTOMY, SIMPLE, BENIGN 01/03/2012 prostate removed TONSILLECTOMY HX Family History FAMILY HISTORY Problem Relation Age of Onset Heart Father of SC age 80 Stroke Mother Heart Brother Patient Allergies ALLERGIES Allergen Reactions Doxycycline GI Upset Unsure if he really has SE to this medication Current Medications Current Outpatient Medications on File Prior to Visit Medication Sig enzalutamide (XTANDI) 40 mg tablet Take 4 tablets (160 mg) by mouth once daily. BREO ELLIPTA 200-25 mcg/dose inhaler Inhale 1 Inhalation as instructed once daily. cilostazol (PLETAL) 100 mg tablet Take 1 tablet by mouth twice daily hydrocortisone (PROCTO-CHEN) 1 % crpe 1 application by RECTAL route two times a day as needed. calcium carbonate/vitamin D3 (CALCIUM 600 + D ORAL) Take 2 tablets by mouth once daily. Calcium 600mg+Vitamin D3 800 international units per tablet docusate sodium (COLACE) 100 mg capsule Take 100 mg by mouth once daily as needed for constipation. aspirin, enteric coated (ASPIRIN, ENTERIC COATED) 81 mg EC tablet Take 81 mg by mouth once daily. multivitamin (MULTIPLE VITAMINS ORAL) Take 1 capsule by mouth once daily. No current facility-administered medications on file prior to visit. Social History Social History Tobacco Use Smoking status: Every Day Current packs/day: 0.75 Average packs/day: 0.8 packs/day for 47.0 years (35.3 ttl pk-yrs) Types: Cigarettes Smokeless tobacco: Never Vaping Use Vaping status: Never Used Substance Use Topics Alcohol use: Not Currently Comment: Drug use: No EXAM: BP 124/76 Pulse 80 Resp 16 Wt 56.7 kg (125 lb) BMI 19.69 kg/m General Appearance: Well appearing, alert, in no acute distress, well-hydrated, well nourished.. Lungs: Lungs clear to auscultation. No wheezing, rhonchi, rales.. Heart: RRR without murmur, gallop, or rubs. No ectopy. Health Maintenance List Abdominal Aortic Aneurysm Screening Never done Shingrix Vaccine(1 of 2) Never done RSV Vaccine(1 - Risk 60-74 years 1-dose series) Never done Lipid Screening due on 12/24/2019 DTaP,Tdap,Td Vaccine(2 - Td or Tdap) due on 12/26/2023 Advance Directive Discussion due on 09/11/2024 Depression Screening due on 01/25/2025 Anxiety Screening due on 01/25/2025 Lung Cancer Screening due on 07/16/2025 Covid-19 Vaccine( season) due on 01/14/2026 Annual PCP Team Chronic Disease Visit due on 01/14/2026 Colorectal Cancer Screening due on 12/24/2026 Diabetes Screening due on 12/18/2027 Hepatitis B Vaccine Completed Influenza Vaccine Completed Hepatitis C Screening Completed Pneumococcal Vaccine: 50+ Completed Data reviewed None ASSESSMENT/PLAN: 1. Hyperlipidemia, unspecified hyperlipidemia type - ICD9: 272.4, ICD10: E78.5 (primary diagnosis) - Controlled Continue current medications. - Counseled on healthy diet and regular exercise - Discussed need for and benefit of weight loss. BMI 19.69 kg/(m^2) 2. Tobacco use disorder - ICD9: 305.1, ICD10: F17.200 - Cessation encouraged. - Physiologic and physical aspects of tobacco addiction as well as strategies for quitting were discussed. - Counseling was given focusing on the harmful effects of this addiction especially given the patient's medical condition(s) which will be worsened because of the chemicals in tobacco. - Counseling was given 3. Chronic obstructive pulmonary disease, unspecified COPD type (HCC) - ICD9: 496, ICD10: J44.9 Stable Continue current medications. 4. Prostate cancer (HCC) - ICD9: 185, ICD10: C61 Metastatic to bone; controlled Continue with hem/onc Continue current medications. 5. PAD (peripheral artery disease) - ICD9: 443.9, ICD10: I73.9 Continue current medications. Continue with Dr. Corona V[facility] 6. Diffuse large B-cell lymphoma of intra-abdominal lymph nodes (HCC) - ICD9: 202.83, ICD10: C83.33 Continue current medications. Continue with hem/onc 7. Urinary incontinence, unspecified type - ICD9: 788.30, ICD10: R32 Stable 8. Elevated glucose - ICD9: 790.29, ICD10: R73.09 Monitored with labs Follow up in 6 months with fasting labs prior. I agree with the Chief Complaint, ROS, and Past Histories independently gathered by the clinical nursing support worker and the remaining scribed note accurately describes my personal service to the patient. Medical Decision Making: Problems: Moderate: 2+ stable chronic illnesses Data: Unique test(s) ordered: 3+ Risk: Moderate: Drug management Medical Decision Making Level: 4 - Moderate Apollo Melo MD The documentation for this note was completed by Anita Inman MA acting as scribe for Aopllo Melo MD. January 14, 2025 8:28 AM. Anita Inman MA documented in this encounter [facility] 01-14-2025 Note HNO ID: [id number] Author: APOLLO MELO MD Service: ? Author Type: Physician Type: Progress Notes Filed: 01/14/2025 11:40 Note Text: Chief Complaint Patient presents with: 6 Month Exam HPI Amie Killian is a 69 year old male who presents here today for 6 month follow up. Spoke with pt about getting him set up for a Medicare Wellness, he declined, stated he doesn't want it. Advanced directive on file. Enjoys golfing. No bowel, Gi, or urinary concerns. Has urinary incontinence, wears pads. Uses procto-chen for rectum prn and colace 100 mg prn. PAD AND Lipid: Follows with Vascular Dr. Corona. He has cramping feeling in the legs and some numbness to the toes. Taking Pletal 100 mg 1 pill BID. Watching diet and exercising 3-4 x a week and plays golf regularly. Pt had PVR done in November. No chest pains, dizziness, or SOB. Follows with hem/onc Dr. Perez for prostate cancer, liver lesion, and Diffuse large B-cell lymphoma of intra-abdominal lymph nodes . Taking Xtandi 40 mg 4 pills once a day. COPD: Continues to smoke half to 1 ppd, thinks about quitting but not ready at this time. Uses Breo Ellipita once daily and this is working well for him. Has not used ProAir Inhaler in quite some time. Overall feels his breathing is doing pretty well. Had spirometry done in Jul. Hx of elevated glucose. Labs monitored. Past medical history, appointments, medications, allergies reviewed. Previous Medical History PAST MEDICAL HISTORY Diagnosis Date Fistula Lesion of liver 06/10/2021 Non Hodgkin's lymphoma (HCC) PAD (peripheral artery disease) Prostate cancer (HCC) 12/2011 Previous Surgical History PAST SURGICAL HISTORY Procedure Laterality Date ABDOMINAL SURGERY HX APPENDECTOMY HX COLONOSCOPY 12/24/2021 repeat in 5 years COLONOSCOPY FLX DX W/COLLJ SPEC WHEN PFRMD 02/15/2016 Colonoscopy IMPLANT CATH INSERTION (AG) 07/30/2020 IVAD right chest INCISE FINGER TENDON SHEATH Left 08/26/2021 Left middle and ring trigger finger releases PAST SURGICAL HISTORY OF appendectomy PAST SURGICAL HISTORY OF tonsilectomy PROSTATECTOMY, SIMPLE, BENIGN 01/03/2012 prostate removed TONSILLECTOMY HX Family History FAMILY HISTORY Problem Relation Age of Onset Heart Father of SC age 80 Stroke Mother Heart Brother Patient Allergies ALLERGIES Allergen Reactions Doxycycline GI Upset Unsure if he really has SE to this medication Current Medications Current Outpatient Medications on File Prior to Visit Medication Sig enzalutamide (XTANDI) 40 mg tablet Take 4 tablets (160 mg) by mouth once daily. BREO ELLIPTA 200-25 mcg/dose inhaler Inhale 1 Inhalation as instructed once daily. cilostazol (PLETAL) 100 mg tablet Take 1 tablet by mouth twice daily hydrocortisone (PROCTO-CHEN) 1 % crpe 1 application by RECTAL route two times a day as needed. calcium carbonate/vitamin D3 (CALCIUM 600 + D ORAL) Take 2 tablets by mouth once daily. Calcium 600mg+Vitamin D3 800 international units per tablet docusate sodium (COLACE) 100 mg capsule Take 100 mg by mouth once daily as needed for constipation. aspirin, enteric coated (ASPIRIN, ENTERIC COATED) 81 mg EC tablet Take 81 mg by mouth once daily. multivitamin (MULTIPLE VITAMINS ORAL) Take 1 capsule by mouth once daily. No current facility-administered medications on file prior to visit. Social History Social History Tobacco Use Smoking status: Every Day Current packs/day: 0.75 Average packs/day: 0.8 packs/day for 47.0 years (35.3 ttl pk-yrs) Types: Cigarettes Smokeless tobacco: Never Vaping Use Vaping status: Never Used Substance Use Topics Alcohol use: Not Currently Comment: Drug use: No EXAM: BP 124/76 Pulse 80 Resp 16 Wt 56.7 kg (125 lb) BMI 19.69 kg/m? General Appearance: Well appearing, alert, in no acute distress, well-hydrated, well nourished.. Lungs: Lungs clear to auscultation. No wheezing, rhonchi, rales.. Heart: RRR without murmur, gallop, or rubs. No ectopy. Health Maintenance List Abdominal Aortic Aneurysm Screening Never done Shingrix Vaccine(1 of 2) Never done RSV Vaccine(1 - Risk 60-74 years 1-dose series) Never done Lipid Screening due on 12/24/2019 DTaP,Tdap,Td Vaccine(2 - Td or Tdap) due on 12/26/2023 Advance Directive Discussion due on 09/11/2024 Depression Screening due on 01/25/2025 Anxiety Screening due on 01/25/2025 Lung Cancer Screening due on 07/16/2025 Covid-19 Vaccine() due on 01/14/2026 Annual PCP Team Chronic Disease Visit due on 01/14/2026 Colorectal Cancer Screening due on 12/24/2026 Diabetes Screening due on 12/18/2027 Hepatitis B Vaccine Completed Influenza Vaccine Completed Hepatitis C Screening Completed Pneumococcal Vaccine: 50+ Completed Data reviewed None ASSESSMENT/PLAN: 1. Hyperlipidemia, unspecified hyperlipidemia type - ICD9: 272.4, ICD10: E78.5 (primary diagnosis) - Controlled Continue (more content not included)... [facility] 01-07-2025 History of Presen t illness Narrative Radiology Service Progress Note DATE OF SERVICE: January 07, 2025 TIME: 1:32 PM PATIENT IDENTITY VERIFICATION COMPLETED USING TWO (2) STANDARD IDENTIFIERS: Name and Date of confirmed by patient verbally. FALL SCREENING: Has the patient had 2 falls in the last year or 1 fall with injury or currently using an Ambulatory Assistive Device (Walker, Cane, Wheelchair, Crutches, etc.)? No PATIENT GENDER DATA: Assigned male at PATIENT RELEVANT IMPLANT DATA REVIEWED: Yes PATIENT PRESENTS WITH AN IMPLANTABLE OR ATTACHED PLUSH BRUSHER: No ALLERGIES: Reviewed and unchanged CONTRAST ALLERGY: NO. EXAM: CT -CONTRAST INDUCED NEPHROPATHY RISK FACTORS: Patient age > 60 years CREATININE: Creatinine Date Value Ref Range Status 12/17/2024 0.82 0.73 - 1.22 mg/dL Final 09/24/2024 0.70 (L) 0.73 - 1.22 mg/dL Final 07/02/2024 0.73 0.73 - 1.22 mg/dL Final Estimated Glomerular Filtration Rate Date Value Ref Range Status 12/17/2024 94 >=60 mL/min/1.73m Final Comment: Estimated Glomerular Filtration Rate (eGFR) is calculated using the 2020 CKD-EPI creatinine equation. This equation utilizes serum creatinine, sex, and age as parameters. The creatinine assay has traceable calibration to isotope dilution-mass spectrometry. Refer to KDIGO guidelines for clinical interpretation. In patients with unstable renal function, e.g. those with acute kidney injury, the eGFR may not accurately reflect actual GFR. eGFR- Date Value Ref Range Status 08/30/2021 >60 Final P.O.C.T. RESULTS: POC done: Yes, See Lab Tab January 07, 2025 TREATMENT: N/A PERIPHERAL IV DATA: Ambulatory: A peripheral IV was started in the Left antecubital site with a Angio cath: 22 gauge. RADIOLOGY DEPARTMENT: CT; Exam(s) Completed: Abdomen/Pelvis SIGNATURE: RT Panfilo(Alec) PATIENT NAME: Amie Killian DATE: January 07, 2025 TIME: 1:32 PM documented in this encounter [facility] 01-07-2025 Note HNO ID: [id number] Author: OLIVIA HOOK RT(R) Service: ? Author Type: Oracle Scm Consultant Type: Progress Notes Filed: 01/07/2025 13:33 Note Text: Radiology Service Progress Note DATE OF SERVICE: January 07, 2025 TIME: 1:32 PM PATIENT IDENTITY VERIFICATION COMPLETED USING TWO (2) STANDARD IDENTIFIERS: Name and Date of confirmed by patient verbally. FALL SCREENING: Has the patient had 2 falls in the last year or 1 fall with injury or currently using an Ambulatory Assistive Device (Walker, Cane, Wheelchair, Crutches, etc.)? No PATIENT GENDER DATA: Assigned male at PATIENT RELEVANT IMPLANT DATA REVIEWED: Yes PATIENT PRESENTS WITH AN IMPLANTABLE OR ATTACHED PLUSH BRUSHER: No ALLERGIES: Reviewed and unchanged CONTRAST ALLERGY: NO. EXAM: CT -CONTRAST INDUCED NEPHROPATHY RISK FACTORS: Patient age > 60 years CREATININE: Creatinine Date Value Ref Range Status 12/17/2024 0.82 0.73 - 1.22 mg/dL Final 09/24/2024 0.70 (L) 0.73 - 1.22 mg/dL Final 07/02/2024 0.73 0.73 - 1.22 mg/dL Final Estimated Glomerular Filtration Rate Date Value Ref Range Status 12/17/2024 94 >=60 mL/min/1.73m? Final Comment: Estimated Glomerular Filtration Rate (eGFR) is calculated using the 2020 CKD-EPI creatinine equation. This equation utilizes serum creatinine, sex, and age as parameters. The creatinine assay has traceable calibration to isotope dilution-mass spectrometry. Refer to KDIGO guidelines for clinical interpretation. In patients with unstable renal function, e.g. those with acute kidney injury, the eGFR may not accurately reflect actual GFR. eGFR- Date Value Ref Range Status 08/30/2021 >60 Final P.O.C.T. RESULTS: POC done: Yes, See Lab Tab January 07, 2025 TREATMENT: N/A PERIPHERAL IV DATA: Ambulatory: A peripheral IV was started in the Left antecubital site with a Angio cath: 22 gauge. RADIOLOGY DEPARTMENT: CT; Exam(s) Completed: Abdomen/Pelvis SIGNATURE: RT Panfilo(R) PATIENT NAME: Amie Killian DATE: January 07, 2025 TIME: 1:32 PM [facility] 01-06-2025 Note HNO ID: [id number] Author: ?, ?, ? Service: ? Author Type: ? Type: Progress Notes Filed: 01/06/2025 12:51 Note Text: POPULATION HEALTH NAVIGATION OUTREACH Action/FYI Patient returned call and will decline AWV at this time. Has follow up in January. Reason for Outreach Returned Call/MyChart Patient Contacted: Spoke to patient/parent/or legal guardian Patient identified by name and date of : Yes Returned call/MyChart actions taken: Patient declined: Patient will contact office directly to schedule Navigation Signature: Megan Roche [facility] January 06, 2025 12:51 PM [facility] 01-06-2025 Note HNO ID: [id number] Author: ?, ?, ? Service: ? Author Type: ? Type: Progress Notes Filed: 01/06/2025 10:41 Note Text: POPULATION HEALTH NAVIGATION OUTREACH Action/FYI Patient outreach for HCC gaps; AWV. LVM and sent mychart to close gaps. Reason for Outreach Care Gap/HCC or Scheduling Wellness Visits Care Gaps due: Medicare Annual Wellness Visit Patient Contacted: Unable or unnecessary to reach patient: Left message MyChart message sent Navigation Signature: Megan Roche [facility] January 06, 2025 10:40 AM [facility] 01-06-2025 Note Patient Outreach (LEEANN TNAV) AMIE KILLIAN ([id number]) 1955 M Date Time Provider Department 01/06/25 APOLLO MELO During your visit today, we recorded the following information about you: Kaley RandleJeniferMegan 01/06/2025 10:41 AM Signed POPULATION HEALTH NAVIGATION OUTREACH Action/FYI Patient outreach for HCC gaps; AWV. LVM and sent mychart to close gaps. Reason for Outreach Care Gap/HCC or Scheduling Wellness Visits Care Gaps due: Medicare Annual Wellness Visit Patient Contacted: Unable or unnecessary to reach patient: Left message MyChart message sent Navigation Signature: Megan Randle January 06, 2025 10:40 AM Megan Manzanares 01/06/2025 12:51 PM Signed POPULATION HEALTH NAVIGATION OUTREACH Action/FYI Patient returned call and will decline AWV at this time. Has follow up in January. Reason for Outreach Returned Call/MyChart Patient Contacted: Spoke to patient/parent/or legal guardian Patient identified by name and date of : Yes Returned call/MyChart actions taken: Patient declined: Patient will contact office directly to schedule Navigation Signature: Megan Randle January 06, 2025 12:51 PM Allergies As of Date: 01/06/2025 Noted Allergy Reaction DOXYCYCLINE 12/30/2014 8 - GI Upset Comments: Unsure if he really has SE to this medication Date Reviewed: 01/03/2025 Reviewed by: Olivia Hook, RT(R) - Fully Assessed Reason for Visit: Population Health Navigation Outreach [3910] Cmt: Buddy Capone Prescriptions as of 01/06/2025 - enzalutamide (XTANDI) 40 mg tablet Take 4 tablets (160 mg) by mouth once daily. - BREO ELLIPTA 200-25 mcg/dose inhaler Inhale 1 Inhalation as instructed once daily. - cilostazol (PLETAL) 100 mg tablet Take 1 tablet by mouth twice daily - hydrocortisone (PROCTO-CHEN) 1 % crpe 1 application by RECTAL route two times a day as needed. - calcium carbonate/vitamin D3 (CALCIUM 600 + D ORAL) Take 2 tablets by mouth once daily. Calcium 600mg+Vitamin D3 800 international units per tablet - docusate sodium (COLACE) 100 mg capsule Take 100 mg by mouth once daily as needed for constipation. - aspirin, enteric coated (ASPIRIN, ENTERIC COATED) 81 mg EC tablet Take 81 mg by mouth once daily. - multivitamin (MULTIPLE VITAMINS ORAL) Take 1 capsule by mouth once daily. 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 Hyperlipidemia [E78.5] 08/17/2012 Elevated PSA [R97.20] 05/09/2016 Jaundice [R17] 07/09/2020 Non-Hodgkin lymphoma of intra-abdominal lymph n*07/10/2020 Elevated liver transaminase level [R74.01] 07/10/2020 Pain [R52] 07/10/2020 History of hepatitis C [Z86.19] 07/13/2020 PAD (peripheral artery disease) (HCC) [I73.9] 01/19/2021 Diffuse large B-cell lymphoma of intra-abdomina*06/10/2021 Lesion of liver [K76.9] 06/10/2021 Malignant neoplasm metastatic to bone (HCC) [C7*07/16/2021 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 12-19-2024 Note HNO ID: [id number] Author: FRANCISCO JAVIER PEREZ MD Service: ? Author Type: Physician Type: Progress Notes Filed: 12/19/2024 11:44 Note Text: (Elements copied from my note dated September 26, 2024, have been reviewed and updated where appropriate, and all reflect current assessment and medical decision making from today's encounter, December 19, 2024) HISTORY OF PRESENT ILLNESS: Amie Killian is a 69 year old male with a history of diffuse large cell lymphoma. This has been in complete remission with no evidence of recurrence after completion of 5 cycles of CHOP Rituxan completed 10-14-20. 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 Not extensive or present elsewhere therefore has been appropriately monitored without therapeutic intervention. In 2011 underwent radical prostatectomy followed by postop adjuvant radiation because of high risk prostatic cancer. June 2021 PSA up to 9.07, bone metastasis were detected on bone scan and was started on Zytiga and prednisone plus Lupron. switched to Xtandi November 28, 2022 due to loss of the financial support from [employer]. PSA noted to fall Here for follow up, doing well. Labs reviewed. Edentulous. No pain or urinary issues. PSA slowly increasing, DT now about 6 months Reviewed Guardant result, no actionable mutation JOYCELYN Lupron/CAB since 06-17-21 CLINICAL IMPRESSION: Prostate cancer with bone mets, PSA DT about 6 months History DLCL, clinically remains in remission RECOMMENDATION/PLAN: 1. Continue CAB GnRH and enzalutamide 2. Bisphosphonate every [address] abdomen due to histiocytosis Written and verbal health teaching given to patient, patient verbalizes understanding and agrees with treatment plan. PAST MEDICAL HISTORY Diagnosis Date Fistula Lesion of liver 06/10/2021 Non Hodgkin's lymphoma (HCC) PAD (peripheral artery disease) Prostate cancer (HCC) 12/2011 PAST SURGICAL HISTORY Procedure Laterality Date ABDOMINAL SURGERY HX APPENDECTOMY HX COLONOSCOPY 12/24/2021 repeat in 5 years COLONOSCOPY FLX DX W/COLLJ SPEC WHEN PFRMD 02/15/2016 Colonoscopy IMPLANT CATH INSERTION (AG) 07/30/2020 IVAD right chest INCISE FINGER TENDON SHEATH Left 08/26/2021 Left middle and ring trigger finger releases PAST SURGICAL HISTORY OF appendectomy PAST SURGICAL HISTORY OF tonsilectomy PROSTATECTOMY, SIMPLE, BENIGN 01/03/2012 prostate removed TONSILLECTOMY HX FAMILY HISTORY Problem Relation Age of Onset Heart Father of [place] age 80 Stroke Mother Heart Brother Social History Tobacco Use Smoking status: Every Day Current packs/day: 0.75 Average packs/day: 0.8 packs/day for 47.0 years (35.3 ttl pk-yrs) Types: Cigarettes Smokeless tobacco: Never Vaping Use Vaping status: Never Used Substance Use Topics Alcohol use: Not Currently Comment: Drug use: No ALLERGIES: ALLERGIES Allergen Reactions Doxycycline GI Upset Unsure if he really has SE to this medication CURRENT OUTPATIENT MEDICATIONS: enzalutamide (XTANDI) 40 mg tablet Take 4 tablets (160 mg) by mouth once daily. BREO ELLIPTA 200-25 mcg/dose inhaler Inhale 1 Inhalation as instructed once daily. cilostazol (PLETAL) 100 mg tablet Take 1 tablet by mouth twice daily hydrocortisone (PROCTO-CHEN) 1 % crpe 1 application by RECTAL route two times a day as needed. calcium carbonate/vitamin D3 (CALCIUM 600 + D ORAL) Take 2 tablets by mouth once daily. Calcium 600mg+Vitamin D3 800 international units per tablet docusate sodium (COLACE) 100 mg capsule Take 100 mg by mouth once daily as needed for constipation. aspirin, enteric coated (ASPIRIN, ENTERIC COATED) 81 mg EC tablet Take 81 mg by mouth once daily. multivitamin (MULTIPLE VITAMINS ORAL) Take 1 capsule by mouth once daily. REVIEW OF SYSTEMS: GENERAL: No fever, night sweats, weight loss or malaise. All other reviewed and negative other than HPI. PHYSICAL EXAMINATION: VITAL SIGNS: BP 150/73 Pulse 79 Temp 97 Wt 128 lb 8 oz (58.3kg) SpO2 100% GENERAL APPEARANCE: Well appearing, in no acute distress, alert and oriented x3, well-hydrated, well nourished. No palpable adenopathy or splenomegaly I spent a total of 30 minutes on the date of the service which included preparing to see the patient, [id number] patient care, completing clinical documentation, obtaining and/or reviewing separately obtained history, performing a medically appropriate examination, counseling and educating the patient/family/caregiver, independently interpreting results (not separately reported), and communicating results to the patient/family/caregiver. Electronically Signed: Francisco Javier Perez MD December 19, 2024 [facility] 12-19-2024 History of Presen t illness Narrative (Elements copied from my note dated September 26, 2024, have been reviewed and updated where appropriate, and all reflect current assessment and medical decision making from today's encounter, December 19, 2024) HISTORY OF PRESENT ILLNESS: Amie Killian is a 69 year old male with a history of diffuse large cell lymphoma. This has been in complete remission with no evidence of recurrence after completion of 5 cycles of CHOP Rituxan completed 10-14-20. 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 Not extensive or present elsewhere therefore has been appropriately monitored without therapeutic intervention. In 2011 underwent radical prostatectomy followed by postop adjuvant radiation because of high risk prostatic cancer. June 2021 PSA up to 9.07, bone metastasis were detected on bone scan and was started on Zytiga and prednisone plus Lupron. switched to Xtandi November 28, 2022 due to loss of the financial support from [employer]. PSA noted to fall Here for follow up, doing well. Labs reviewed. Edentulous. No pain or urinary issues. PSA slowly increasing, DT now about 6 months Reviewed Guardant result, no actionable mutation JOYCELYN Lupron/CAB since 06-17-21 CLINICAL IMPRESSION: Prostate cancer with bone mets, PSA DT about 6 months History DLCL, clinically remains in remission RECOMMENDATION/PLAN: 1. Continue CAB GnRH and enzalutamide 2. Bisphosphonate every [address] abdomen due to histiocytosis Written and verbal health teaching given to patient, patient verbalizes understanding and agrees with treatment plan. PAST MEDICAL HISTORY Diagnosis Date Fistula Lesion of liver 06/10/2021 Non Hodgkin's lymphoma (HCC) PAD (peripheral artery disease) Prostate cancer (HCC) 12/2011 PAST SURGICAL HISTORY Procedure Laterality Date ABDOMINAL SURGERY HX APPENDECTOMY HX COLONOSCOPY 12/24/2021 repeat in 5 years COLONOSCOPY FLX DX W/COLLJ SPEC WHEN PFRMD 02/15/2016 Colonoscopy IMPLANT CATH INSERTION (AG) 07/30/2020 IVAD right chest INCISE FINGER TENDON SHEATH Left 08/26/2021 Left middle and ring trigger finger releases PAST SURGICAL HISTORY OF appendectomy PAST SURGICAL HISTORY OF tonsilectomy PROSTATECTOMY, SIMPLE, BENIGN 01/03/2012 prostate removed TONSILLECTOMY HX FAMILY HISTORY Problem Relation Age of Onset Heart Father of [place] age 80 Stroke Mother Heart Brother Social History Tobacco Use Smoking status: Every Day Current packs/day: 0.75 Average packs/day: 0.8 packs/day for 47.0 years (35.3 ttl pk-yrs) Types: Cigarettes Smokeless tobacco: Never Vaping Use Vaping status: Never Used Substance Use Topics Alcohol use: Not Currently Comment: Drug use: No ALLERGIES: ALLERGIES Allergen Reactions Doxycycline GI Upset Unsure if he really has SE to this medication CURRENT OUTPATIENT MEDICATIONS: enzalutamide (XTANDI) 40 mg tablet Take 4 tablets (160 mg) by mouth once daily. BREO ELLIPTA 200-25 mcg/dose inhaler Inhale 1 Inhalation as instructed once daily. cilostazol (PLETAL) 100 mg tablet Take 1 tablet by mouth twice daily hydrocortisone (PROCTO-CHEN) 1 % crpe 1 application by RECTAL route two times a day as needed. calcium carbonate/vitamin D3 (CALCIUM 600 + D ORAL) Take 2 tablets by mouth once daily. Calcium 600mg+Vitamin D3 800 international units per tablet docusate sodium (COLACE) 100 mg capsule Take 100 mg by mouth once daily as needed for constipation. aspirin, enteric coated (ASPIRIN, ENTERIC COATED) 81 mg EC tablet Take 81 mg by mouth once daily. multivitamin (MULTIPLE VITAMINS ORAL) Take 1 capsule by mouth once daily. REVIEW OF SYSTEMS: GENERAL: No fever, night sweats, weight loss or malaise. All other reviewed and negative other than HPI. PHYSICAL EXAMINATION: VITAL SIGNS: BP 150/73 Pulse 79 Temp 97 Wt 128 lb 8 oz (58.3kg) SpO2 100% GENERAL APPEARANCE: Well appearing, in no acute distress, alert and oriented x3, well-hydrated, well nourished. No palpable adenopathy or splenomegaly I spent a total of 30 minutes on the date of the service which included preparing to see the patient, [id number] patient care, completing clinical documentation, obtaining and/or reviewing separately obtained history, performing a medically appropriate examination, counseling and educating the patient/family/caregiver, independently interpreting results (not separately reported), and communicating results to the patient/family/caregiver. Electronically Signed: Francisco Javier Perez MD December 19, 2024 Est. Pt. Discuss recent labs, tx today Dinorah Correa LPN documented in this encounter [facility] 12-19-2024 Note HNO ID: [id number] Author: DINORAH CORREA LPN Service: ? Author Type: LICENSED NURSE Type: Progress Notes Filed: 12/19/2024 11:44 Note Text: Est. Pt. Discuss recent labs, tx today Dinorah Shi FARIBA Correa [facility] 12-17-2024 Note HNO ID: [id number] Author: PACO LANDEROS RN Service: ? Author Type: Registered Nurse Type: Progress Notes Filed: 12/17/2024 07:46 Note Text: Patient is here for IVAD port flush/blood draw per Nursing [facility] protocol. IVAD is located in right upper chest. Site cleansed with Chloraprep IVAD accessed with a #20 gauge 3/4 non-coring Gripper needle Flush with 5cc's Normal Saline. Blood Return: Good. 10 cc's blood aspirated and discarded. Blood drawn for CMP. Flushed with: 20 ml Normal Saline. Non-coring needle removed. Dry dressing applied to puncture site. Site negative for redness, edema or tenderness. Patient tolerated procedure well. [facility] 12-17-2024 History of Presen t illness Narrative Patient is here for IVAD port flush/blood draw per [facility] protocol. IVAD is located in right upper chest. Site cleansed with Chloraprep IVAD accessed with a #20 gauge 3/4 non-coring Gripper needle Flush with 5cc's Normal Saline. Blood Return: Good. 10 cc's blood aspirated and discarded. Blood drawn for CMP. Flushed with: 20 ml Normal Saline. Non-coring needle removed. Dry dressing applied to puncture site. Site negative for redness, edema or tenderness. Patient tolerated procedure well. documented in this encounter [facility] 12-06-2024 Telephone encounter Note POPULATION HEALTH NAVIGATION OUTREACH Action/ Patient responded to Pageflakes message about his AWV. Updated patient with Page[employer]akes response to have clarify what a medicare wellness visit is. Reason for Outreach Returned Call/MyChart Patient Contacted: Spoke to patient/parent/or legal guardian Patient identified by name and date of : Yes Returned call/MyChart actions taken: MyChart message sent Navigation Signature: Megan Randle December 06, 2024 10:[address] [facility] 12-06-2024 Miscellaneous Notes POPULATION HEALTH NAVIGATION OUTREACH Action/FYI Patient responded to mychart message about his AWV. Updated patient with mychart response to have clarify what a medicare wellness visit is. Reason for Outreach Returned Call/MyChart Patient Contacted: Spoke to patient/parent/or legal guardian Patient identified by name and date of : Yes Returned call/MyChart actions taken: MyChart message sent Navigation Signature: Megan Kaley Randle December 06, 2024 10:36 AM documented in this encounter [facility] 12-06-2024 Note HNO ID: [id number] Author: ?, ?, ? Service: ? Author Type: ? Type: Progress Notes Filed: 12/06/2024 10:19 Note Text: POPULATION HEALTH NAVIGATION OUTREACH Action/FYI Patient outreach for HCC gaps; AWV. Mychart message sent. Appointment notes updated. Reason for Outreach Care Gap/HCC or Scheduling Wellness Visits Care Gaps due: Medicare Annual Wellness Visit Patient Contacted: Unable or unnecessary to reach patient: MyChart message sent HCC related Updated appointment notes Navigation Signature: Megan Roche [facility] December 06, 2024 10:17 AM [facility] 12-06-2024 History of Presen t illness Narrative POPULATION HEALTH NAVIGATION OUTREACH Action/FYI Patient outreach for HCC gaps; AWV. Mychart message sent. Appointment notes updated. Reason for Outreach Care Gap/HCC or Scheduling Wellness Visits Care Gaps due: Medicare Annual Wellness Visit Patient Contacted: Unable or unnecessary to reach patient: MyChart message sent HCC related Updated appointment notes Navigation Signature: Megan Randle December 06, 2024 10:17 AM documented in this encounter [facility] 12-06-2024 Note Patient Outreach (LEEANN TNAV) AMIE KILLIAN ([id number]) 1955 Date Time Provider Department 12/06/24 APOLLO MELO During your visit today, we recorded the following information about you: Megan Manzanares 12/06/2024 10:19 AM Signed POPULATION HEALTH NAVIGATION OUTREACH Action/ Patient outreach for HCC gaps; AWV. Fipeo message sent. Appointment notes updated. Reason for Outreach Care Gap/HCC or Scheduling Wellness Visits Care Gaps due: Medicare Annual Wellness Visit Patient Contacted: Unable or unnecessary to reach patient: MideoMehart message sent HCC related Updated appointment notes Navigation Signature: Megan Randle December 06, 2024 10:17 AM Allergies As of Date: 12/06/2024 Noted Allergy Reaction DOXYCYCLINE 12/30/2014 8 - GI Upset Comments: Unsure if he really has SE to this medication Date Reviewed: 11/26/2024 Reviewed by: Lida Faith [facility] - Fully Assessed Reason for Visit: Population Health Navigation Outreach [3910] Cmt: Buddy Capone Prescriptions as of 12/06/2024 - enzalutamide (XTANDI) 40 mg tablet Take 4 tablets (160 mg) by mouth once daily. - BREO ELLIPTA 200-25 mcg/dose inhaler Inhale 1 Inhalation as instructed once daily. - cilostazol (PLETAL) 100 mg tablet Take 1 tablet by mouth twice daily - hydrocortisone (PROCTO-CHEN) 1 % crpe 1 application by RECTAL route two times a day as needed. - calcium carbonate/vitamin D3 (CALCIUM 600 + D ORAL) Take 2 tablets by mouth once daily. Calcium 600mg+Vitamin D3 800 international units per tablet - docusate sodium (COLACE) 100 mg capsule Take 100 mg by mouth once daily as needed for constipation. - aspirin, enteric coated (ASPIRIN, ENTERIC COATED) 81 mg EC tablet Take 81 mg by mouth once daily. - multivitamin (MULTIPLE VITAMINS ORAL) Take 1 capsule by mouth once daily. 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 Hyperlipidemia [E78.5] 08/17/2012 Elevated PSA [R97.20] 05/09/2016 Jaundice [R17] 07/09/2020 Non-Hodgkin lymphoma of intra-abdominal lymph n*07/10/2020 Elevated liver transaminase level [R74.01] 07/10/2020 Pain [R52] 07/10/2020 History of hepatitis C [Z86.19] 07/13/2020 PAD (peripheral artery disease) (HCC) [I73.9] 01/19/2021 Diffuse large B-cell lymphoma of intra-abdomina*06/10/2021 Lesion of liver [K76.9] 06/10/2021 Malignant neoplasm metastatic to bone (HCC) [C7*07/16/2021 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] 07/16/2021 Urinary incontinence [R32] 01/11/2022 Protein-calorie malnutrition, unspecified sever*01/13/2023 07/17/2023 Encounter Status:Closed by MEGAN MANZANARES on 12/06/24 [facility] 11-26-2024 Note HNO ID: [id number] Author: AMANDA CORONA, DO Service: ? Author Type: Physician Type: Progress Notes Filed: 11/26/2024 11:47 Note Text: [facility] DEPARTMENT OF VASCULAR SURGERY OUTPATIENT VISIT DATE November 26, 2024 OUTPATIENT VISIT TYPE ESTABLISHED SERVICE DATE: 11/26/2024 SERVICE TIME: 9:12 AM PRIMARY CARE PHYSICIAN: Apollo Melo MD HISTORY OF PRESENT ILLNESS: Mr. Killian is a 69 year old male who presents today for a vascular surgery follow-up visit for peripheral arterial disease. He has been active in the winter with walking at the [facility]. This spring, he has noticed right leg claudication while golfing even after walking short distances. He has noticed it was worse this year and has noticed it has significantly slowed him down. Denies any upper extremity claudication or vertebrobasilar symptoms. PAST MEDICAL HISTORY Diagnosis Date Fistula Lesion of liver 06/10/2021 Non Hodgkin's lymphoma (HCC) PAD (peripheral artery disease) (HCC) Prostate cancer (HCC) 12/2011 PAST SURGICAL HISTORY Procedure Laterality Date ABDOMINAL SURGERY HX APPENDECTOMY HX COLONOSCOPY 12/24/2021 repeat in 5 years COLONOSCOPY FLX DX W/COLLJ SPEC WHEN PFRMD 02/15/2016 Colonoscopy IMPLANT CATH INSERTION (AG) 07/30/2020 IVAD right chest INCISE FINGER TENDON SHEATH Left 08/26/2021 Left middle and ring trigger finger releases PAST SURGICAL HISTORY OF appendectomy PAST SURGICAL HISTORY OF tonsilectomy PROSTATECTOMY, SIMPLE, BENIGN 01/03/2012 prostate removed TONSILLECTOMY HX SOCIAL HISTORY Social History Tobacco Use Smoking status: Every Day Current packs/day: 0.75 Average packs/day: 0.8 packs/day for 47.0 years (35.3 ttl pk-yrs) Types: Cigarettes Smokeless tobacco: Never Vaping Use Vaping status: Never Used Substance Use Topics Alcohol use: Not Currently Comment: Drug use: No MEDICATIONS: enzalutamide (XTANDI) 40 mg tablet Take 4 tablets (160 mg) by mouth once daily. BREO ELLIPTA 200-25 mcg/dose inhaler Inhale 1 Inhalation as instructed once daily. cilostazol (PLETAL) 100 mg tablet Take 1 tablet by mouth twice daily hydrocortisone (PROCTO-CHEN) 1 % crpe 1 application by RECTAL route two times a day as needed. calcium carbonate/vitamin D3 (CALCIUM 600 + D ORAL) Take 2 tablets by mouth once daily. Calcium 600mg+Vitamin D3 800 international units per tablet docusate sodium (COLACE) 100 mg capsule Take 100 mg by mouth once daily as needed for constipation. aspirin, enteric coated (ASPIRIN, ENTERIC COATED) 81 mg EC tablet Take 81 mg by mouth once daily. multivitamin (MULTIPLE VITAMINS ORAL) Take 1 capsule by mouth once daily. ALLERGIES: ALLERGIES Allergen Reactions Doxycycline GI Upset Unsure if he really has SE to this medication PHYSICAL EXAM: BP 100/67 (BP Site: Left Arm, BP Position: Sitting, BP Cuff Size: Regular Adult) Pulse 71 SpO2 95% Gen- no distress Neuro- no focal deficit, left carotid bruit Ext-no ulceration or tissue loss, nonpalpable distal pulses Diagnostic tests reviewed for today's visit: Most recent labs Most recent imaging PVRs Compared to prior study of 11/28/2023, difference in brachial artery blood pressures is a new finding. Dampening of bilateral resting waveforms noted. RIGHT SIDE Resting right ankle brachial index: 0.70 Non-compressible vessels, results called by PVR tracings. Right ankle: Moderate disease at rest. LEFT SIDE Resting left ankle brachial index: 0.78 Non-compressible vessels, results called by PVR tracings. Left ankle: Moderate disease at rest. IMPRESSION: Mr. Killian is a 69 year old male with peripheral arterial disease, possible subclavian and carotid stenosis. PLAN and RECOMMENDATIONS: States his claudication has progressed, recommend CTA with run-off and follow up to discuss interventional options Also will get carotid duplex to look for subclavian stenosis. Instructed patient to take blood pressure on right sides SIGNATURE: Amanda Corona DO PATIENT NAME: Amie Killian DATE: November 26, 2024 TIME: 9:12 AM [facility] 11-26-2024 History of Presen t illness Narrative Images from the original note were not included. [facility] DEPARTMENT OF VASCULAR SURGERY OUTPATIENT VISIT DATE November 26, 2024 OUTPATIENT VISIT TYPE ESTABLISHED SERVICE DATE: 11/26/2024 SERVICE TIME: 9:12 AM PRIMARY CARE PHYSICIAN: Apollo Melo MD HISTORY OF PRESENT ILLNESS: Mr. Killian is a 69 year old male who presents today for a vascular surgery follow-up visit for peripheral arterial disease. He has been active in the winter with walking at the [facility]. This spring, he has noticed right leg claudication while golfing even after walking short distances. He has noticed it was worse this year and has noticed it has significantly slowed him down. Denies any upper extremity claudication or vertebrobasilar symptoms. PAST MEDICAL HISTORY Diagnosis Date Fistula Lesion of liver 06/10/2021 Non Hodgkin's lymphoma (HCC) PAD (peripheral artery disease) (HCC) Prostate cancer (HCC) 12/2011 PAST SURGICAL HISTORY Procedure Laterality Date ABDOMINAL SURGERY HX APPENDECTOMY HX COLONOSCOPY 12/24/2021 repeat in 5 years COLONOSCOPY FLX DX W/COLLJ SPEC WHEN PFRMD 02/15/2016 Colonoscopy IMPLANT CATH INSERTION (AG) 07/30/2020 IVAD right chest INCISE FINGER TENDON SHEATH Left 08/26/2021 Left middle and ring trigger finger releases PAST SURGICAL HISTORY OF appendectomy PAST SURGICAL HISTORY OF tonsilectomy PROSTATECTOMY, SIMPLE, BENIGN 01/03/2012 prostate removed TONSILLECTOMY HX SOCIAL HISTORY Social History Tobacco Use Smoking status: Every Day Current packs/day: 0.75 Average packs/day: 0.8 packs/day for 47.0 years (35.3 ttl pk-yrs) Types: Cigarettes Smokeless tobacco: Never Vaping Use Vaping status: Never Used Substance Use Topics Alcohol use: Not Currently Comment: Drug use: No MEDICATIONS: enzalutamide (XTANDI) 40 mg tablet Take 4 tablets (160 mg) by mouth once daily. BREO ELLIPTA 200-25 mcg/dose inhaler Inhale 1 Inhalation as instructed once daily. cilostazol (PLETAL) 100 mg tablet Take 1 tablet by mouth twice daily hydrocortisone (PROCTO-CHEN) 1 % crpe 1 application by RECTAL route two times a day as needed. calcium carbonate/vitamin D3 (CALCIUM 600 + D ORAL) Take 2 tablets by mouth once daily. Calcium 600mg+Vitamin D3 800 international units per tablet docusate sodium (COLACE) 100 mg capsule Take 100 mg by mouth once daily as needed for constipation. aspirin, enteric coated (ASPIRIN, ENTERIC COATED) 81 mg EC tablet Take 81 mg by mouth once daily. multivitamin (MULTIPLE VITAMINS ORAL) Take 1 capsule by mouth once daily. ALLERGIES: ALLERGIES Allergen Reactions Doxycycline GI Upset Unsure if he really has SE to this medication PHYSICAL EXAM: BP 100/67 (BP Site: Left Arm, BP Position: Sitting, BP Cuff Size: Regular Adult) Pulse 71 SpO2 95% Gen- no distress Neuro- no focal deficit, left carotid bruit Ext-no ulceration or tissue loss, nonpalpable distal pulses Diagnostic tests reviewed for today's visit: Most recent labs Most recent imaging PVRs Compared to prior study of 11/28/2023, difference in brachial artery blood pressures is a new finding. Dampening of bilateral resting waveforms noted. RIGHT SIDE Resting right ankle brachial index: 0.70 Non-compressible vessels, results called by PVR tracings. Right ankle: Moderate disease at rest. LEFT SIDE Resting left ankle brachial index: 0.78 Non-compressible vessels, results called by PVR tracings. Left ankle: Moderate disease at rest. IMPRESSION: Mr. Killian is a 69 year old male with peripheral arterial disease, possible subclavian and carotid stenosis. PLAN and RECOMMENDATIONS: States his claudication has progressed, recommend CTA with run-off and follow up to discuss interventional options Also will get carotid duplex to look for subclavian stenosis. Instructed patient to take blood pressure on right sides SIGNATURE: Amanda Corona DO PATIENT NAME: Amie Killian DATE: November 26, 2024 TIME: 9:12 AM documented in this encounter [facility] 11-14-2024 Telephone encounter Note See other [employer] message. Anita Inman MA [facility] 11-14-2024 Miscellaneous Notes See other [employer] message. Anita Inman MA documented in this encounter [facility] 09-30-2024 Telephone encounter Note Rx refill sent a separate encounter. Alesia Schroeder LPN [facility] 09-30-2024 Miscellaneous Notes Rx refill sent a separate encounter. Alesia Schroeder LPN Fax received from [employer] patient assistance that pt needs an updated prescription for 2024. Please send prescription with enough refills for the year to: [facility] [id number] Thank you, GEMMA Heck documented in this encounter [facility] 09-30-2024 Telephone encounter Note Please send new Rx for patient assistance. Alesia Schroeder LPN [facility] 09-30-2024 Miscellaneous Notes Please send new Rx for patient assistance. Alesia Schroeder LPN documented in this encounter [facility] 09-30-2024 Telephone encounter Note Fax received from [employer] patient assistance that pt needs an updated prescription for 2024. Please send prescription with enough refills for the year to: [facility] [id number] Thank you, GEMAM Heck [facility] 09-26-2024 Note HNO ID: [id number] Author: FRANCISCO JAVIER PEREZ MD Service: ? Author Type: Physician Type: Progress Notes Filed: 09/26/2024 10:53 Note Text: (Elements copied from my note dated July 04, 2024, have been reviewed and updated where appropriate, and all reflect current assessment and medical decision making from today's encounter, September 26, 2024) HISTORY OF PRESENT ILLNESS: Amie Killian is a 68 year old male with a history of diffuse large cell lymphoma. This has been in complete remission with no evidence of recurrence after completion of 5 cycles of CHOP Rituxan completed 10-14-20. 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 Not extensive or present elsewhere therefore has been appropriately monitored without therapeutic intervention. In 2011 underwent radical prostatectomy followed by postop adjuvant radiation because of high risk prostatic cancer. Bone metastasis were subsequently detected and has been started and was maintained on Zytiga and prednisone plus Lupron. switched to Xtandi November 28, 2022 due to loss of the financial support from [employer]. Here for follow up, doing well. Labs reviewed. Edentulous. No pain or urinary issues. PSA slowly increasing, DT now about 6 months Discussed Guardant testing Lupron/CAB since 06-17-21 CLINICAL IMPRESSION: Prostate cancer with bone mets, PSA DT dropped History DLCL, clinically remains in remission RECOMMENDATION/PLAN: 1. Continue CAB GnRH and enzalutamide 2. Bisphosphonate every 3 months 3. Guardant today Written and verbal health teaching given to patient, patient verbalizes understanding and agrees with treatment plan. PAST MEDICAL HISTORY Diagnosis Date Fistula Lesion of liver 06/10/2021 Non Hodgkin's lymphoma (HCC) PAD (peripheral artery disease) (HCC) Prostate cancer (HCC) 12/2011 PAST SURGICAL HISTORY Procedure Laterality Date ABDOMINAL SURGERY HX APPENDECTOMY HX COLONOSCOPY 12/24/2021 repeat in 5 years COLONOSCOPY FLX DX W/COLLJ SPEC WHEN PFRMD 02/15/2016 Colonoscopy IMPLANT CATH INSERTION (AG) 07/30/2020 IVAD right chest INCISE FINGER TENDON SHEATH Left 08/26/2021 Left middle and ring trigger finger releases PAST SURGICAL HISTORY OF appendectomy PAST SURGICAL HISTORY OF tonsilectomy PROSTATECTOMY, SIMPLE, BENIGN 01/03/2012 prostate removed TONSILLECTOMY HX FAMILY HISTORY Problem Relation Age of Onset Heart Father of [place] age 80 Stroke Mother Heart Brother Social History Tobacco Use Smoking status: Every Day Current packs/day: 0.75 Average packs/day: 0.8 packs/day for 47.0 years (35.3 ttl pk-yrs) Types: Cigarettes Smokeless tobacco: Never Vaping Use Vaping status: Never Used Substance Use Topics Alcohol use: Not Currently Comment: Drug use: No ALLERGIES: ALLERGIES Allergen Reactions Doxycycline GI Upset Unsure if he really has SE to this medication CURRENT OUTPATIENT MEDICATIONS: BREO ELLIPTA 200-25 mcg/dose inhaler Inhale 1 Inhalation as instructed once daily. cilostazol (PLETAL) 100 mg tablet Take 1 tablet by mouth twice daily hydrocortisone (PROCTO-CHEN) 1 % crpe 1 application by RECTAL route two times a day as needed. enzalutamide (XTANDI) 40 mg tablet Take 4 tablets (160 mg) by mouth once daily. calcium carbonate/vitamin D3 (CALCIUM 600 + D ORAL) Take 2 tablets by mouth once daily. Calcium 600mg+Vitamin D3 800 international units per tablet docusate sodium (COLACE) 100 mg capsule Take 100 mg by mouth once daily as needed for constipation. aspirin, enteric coated (ASPIRIN, ENTERIC COATED) 81 mg EC tablet Take 81 mg by mouth once daily. multivitamin (MULTIPLE VITAMINS ORAL) Take 1 capsule by mouth once daily. REVIEW OF SYSTEMS: GENERAL: No fever, night sweats, weight loss or malaise. All other reviewed and negative other than HPI. PHYSICAL EXAMINATION: VITAL SIGNS: BP 159/89 Pulse 66 Temp (Src) 97.7 (Temporal) Wt 125 lb (56.7kg) SpO2 96% GENERAL APPEARANCE: Well appearing, in no acute distress, alert and oriented x3, well-hydrated, well nourished. I spent a total of 30 minutes on the date of the service which included preparing to see the patient, [id number] patient care, completing clinical documentation, obtaining and/or reviewing separately obtained history, performing a medically appropriate examination, counseling and educating the patient/family/caregiver, independently interpreting results (not separately reported), and communicating results to the patient/family/caregiver. Electronically Signed: Francisco Javier Perez MD September 26, 2024 [facility] 09-26-2024 History of Presen t illness Narrative (Elements copied from my note dated July 04, 2024, have been reviewed and updated where appropriate, and all reflect current assessment and medical decision making from today's encounter, September 26, 2024) HISTORY OF PRESENT ILLNESS: Amie Killian is a 68 year old male with a history of diffuse large cell lymphoma. This has been in complete remission with no evidence of recurrence after completion of 5 cycles of CHOP Rituxan completed 10-14-20. 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 Not extensive or present elsewhere therefore has been appropriately monitored without therapeutic intervention. In 2011 underwent radical prostatectomy followed by postop adjuvant radiation because of high risk prostatic cancer. Bone metastasis were subsequently detected and has been started and was maintained on Zytiga and prednisone plus Lupron. switched to Xtandi November 28, 2022 due to loss of the financial support from [employer]. Here for follow up, doing well. Labs reviewed. Edentulous. No pain or urinary issues. PSA slowly increasing, DT now about 6 months Discussed Guardant testing Lupron/CAB since 06-17-21 CLINICAL IMPRESSION: Prostate cancer with bone mets, PSA DT dropped History DLCL, clinically remains in remission RECOMMENDATION/PLAN: 1. Continue CAB GnRH and enzalutamide 2. Bisphosphonate every 3 months 3. Guardant today Written and verbal health teaching given to patient, patient verbalizes understanding and agrees with treatment plan. PAST MEDICAL HISTORY Diagnosis Date Fistula Lesion of liver 06/10/2021 Non Hodgkin's lymphoma (HCC) PAD (peripheral artery disease) (HCC) Prostate cancer (HCC) 12/2011 PAST SURGICAL HISTORY Procedure Laterality Date ABDOMINAL SURGERY HX APPENDECTOMY HX COLONOSCOPY 12/24/2021 repeat in 5 years COLONOSCOPY FLX DX W/COLLJ SPEC WHEN PFRMD 02/15/2016 Colonoscopy IMPLANT CATH INSERTION (AG) 07/30/2020 IVAD right chest INCISE FINGER TENDON SHEATH Left 08/26/2021 Left middle and ring trigger finger releases PAST SURGICAL HISTORY OF appendectomy PAST SURGICAL HISTORY OF tonsilectomy PROSTATECTOMY, SIMPLE, BENIGN 01/03/2012 prostate removed TONSILLECTOMY HX FAMILY HISTORY Problem Relation Age of Onset Heart Father of [place] age 80 Stroke Mother Heart Brother Social History Tobacco Use Smoking status: Every Day Current packs/day: 0.75 Average packs/day: 0.8 packs/day for 47.0 years (35.3 ttl pk-yrs) Types: Cigarettes Smokeless tobacco: Never Vaping Use Vaping status: Never Used Substance Use Topics Alcohol use: Not Currently Comment: Drug use: No ALLERGIES: ALLERGIES Allergen Reactions Doxycycline GI Upset Unsure if he really has SE to this medication CURRENT OUTPATIENT MEDICATIONS: BREO ELLIPTA 200-25 mcg/dose inhaler Inhale 1 Inhalation as instructed once daily. cilostazol (PLETAL) 100 mg tablet Take 1 tablet by mouth twice daily hydrocortisone (PROCTO-CHEN) 1 % crpe 1 application by RECTAL route two times a day as needed. enzalutamide (XTANDI) 40 mg tablet Take 4 tablets (160 mg) by mouth once daily. calcium carbonate/vitamin D3 (CALCIUM 600 + D ORAL) Take 2 tablets by mouth once daily. Calcium 600mg+Vitamin D3 800 international units per tablet docusate sodium (COLACE) 100 mg capsule Take 100 mg by mouth once daily as needed for constipation. aspirin, enteric coated (ASPIRIN, ENTERIC COATED) 81 mg EC tablet Take 81 mg by mouth once daily. multivitamin (MULTIPLE VITAMINS ORAL) Take 1 capsule by mouth once daily. REVIEW OF SYSTEMS: GENERAL: No fever, night sweats, weight loss or malaise. All other reviewed and negative other than HPI. PHYSICAL EXAMINATION: VITAL SIGNS: BP 159/89 Pulse 66 Temp (Src) 97.7 (Temporal) Wt 125 lb (56.7kg) SpO2 96% GENERAL APPEARANCE: Well appearing, in no acute distress, alert and oriented x3, well-hydrated, well nourished. I spent a total of 30 minutes on the date of the service which included preparing to see the patient, [id number] patient care, completing clinical documentation, obtaining and/or reviewing separately obtained history, performing a medically appropriate examination, counseling and educating the patient/family/caregiver, independently interpreting results (not separately reported), and communicating results to the patient/family/caregiver. Electronically Signed: Francisco Javier Perez MD September 26, 2024 documented in this encounter [facility] 09-18-2024 Telephone encounter Note SOCIAL WORK FOLLOW UP NOTE: [facility]ENTER Date of service: September 18, 2024 Amie Killian is being seen for a follow up social work visit. Today's visit includes: patient TOPICS ADDRESSED: SW met with pt this date and reviewed mailing received from [employer]. SW discussed with pt needing to reapply for the Xtandi assistance program. Pt in agreement. Application completed this date with pt. SW completed the HCP portion of application and will review with physician when he is back in office tomorrow, 09/19. SW to fax to [employer] once completed and will send to internal scanning. Pt confirms he has another bottle of Xtandi remaining at home. No other needs identified at this time. PLAN: Assist with financial support applications and Continue follow up as needed F/U APPOINTMENT: PRN Assigned SW listed in Care Team tab: Yes GEMMA Heck [facility] 09-18-2024 Miscellaneous Notes SOCIAL WORK FOLLOW UP NOTE: CANCER CENTER Date of service: September 18, 2024 Amie Killian is being seen for a follow up social work visit. Today's visit includes: patient TOPICS ADDRESSED: SW met with pt this date and reviewed mailing received from [employer]. SW discussed with pt needing to reapply for the Xtandi assistance program. Pt in agreement. Application completed this date with pt. SW completed the HCP portion of application and will review with physician when he is back in office tomorrow, 09/19. SW to fax to [employer] once completed and will send to internal scanning. Pt confirms he has another bottle of Xtandi remaining at home. No other needs identified at this time. PLAN: Assist with financial support applications and Continue follow up as needed F/U APPOINTMENT: PRN Assigned SARAH listed in Care Team tab: Yes GEMMA Heck documented in this encounter [facility] 09-17-2024 Telephone encounter Note Noted; I sent in a new prescription in case he needed it Apollo Melo MD [facility] 09-17-2024 Miscellaneous Notes Noted; I sent in a new prescription in case he needed it Apollo Melo MD Patient calls and message below reviewed. Patient reports he is completely out of inhaler and going to have to just pay for the medication. Patient didn't want to contact insurance to check on a covered equivalent medication. Patient reports the first month is 297 which is his deductible. Juliana Parker RN OK to call the insurance company and see what is required for a reduction, or if they jeremie an equivalent medication Apollo Melo MD See message below from pt and advise. Do you want to do the Tier reduction or switch inhalers? We also do not carry samples in the office. Zakia Elam MA Alejandro is calling Apollo Melo MD today with concern regarding Medication Problem Patient is calling regarding medication BREO ELLIPTA 200-25 mcg/dose inhaler. Patient states the medication is too expensive. Patient talked to the insurance pharmacy and they suggested patient get a peer reduction This would bring the medication down to Tier 1 or 2. Patient states he was told this would be the same medication. Please call the [employer] [phone] Patient is also asking if doctor has samples of the medication because he is running low on the medication. Patient has been identified by name and birthdate. Duration of symptoms: N/A Person calling: self Call patient at: on cell [phone] (home) [phone] (cell) Was an appointment scheduled: No Closing statement: Results or non-symptom based questions: Thank you for calling [facility], your call will be returned within the next business day. Nemo Pena documented in this encounter [facility] 09-13-2024 Telephone encounter Note Patient calls and message below reviewed. Patient reports he is completely out of inhaler and going to have to just pay for the medication. Patient didn't want to contact insurance to check on a covered equivalent medication. Patient reports the first month is 297 which is his deductible. Juliana Parker RN [facility] 09-12-2024 Telephone encounter Note OK to call the insurance company and see what is required for a reduction, or if they jeremie an equivalent medication Apollo Melo MD [facility] 09-12-2024 Telephone encounter Note See message below from pt and advise. Do you want to do the Tier reduction or switch inhalers? We also do not carry samples in the office. Zakia Elam MA [facility] 09-12-2024 Telephone encounter Note Alejandro is calling Apollo Melo MD today with concern regarding Medication Problem Patient is calling regarding medication BREO ELLIPTA 200-25 mcg/dose inhaler. Patient states the medication is too expensive. Patient talked to the insurance pharmacy and they suggested patient get a peer reduction This would bring the medication down to Tier 1 or 2. Patient states he was told this would be the same medication. Please call the insurance [employer] [phone] Patient is also asking if doctor has samples of the medication because he is running low on the medication. Patient has been identified by name and birthdate. Duration of symptoms: N/A Person calling: self Call patient at: on cell [phone] (home) [phone] (cell) Was an appointment scheduled: No Closing statement: Results or non-symptom based questions: Thank you for calling [facility], your call will be returned within the next business day. Nemo Pena [facility] 09-03-2024 Telephone encounter Note Prescription Refill Information The patient has been identified by name and date of : Yes Caregiver verified no other encounters exist for this prescription request: yes Caregiver confirmed with patient/requestor that no other refills are due, in the near future, with this provider at this time: Yes The last office visit in the department: 11/28/23 Does the patient have a future office visit with this provider/department: Yes 11/26/2024 Requested Prescriptions Pending Prescriptions Disp Refills cilostazol (PLETAL) 100 mg tablet [Pharmacy Med Name: Cilostazol 100 MG Oral Tablet] 180 tablet 0 Sig: Take 1 tablet by mouth twice daily eDlmis Porter RN September 03, 2024 7:[address] [facility] 09-03-2024 Miscellaneous Notes Prescription Refill Information The patient has been identified by name and date of : Yes Caregiver verified no other encounters exist for this prescription request: yes Caregiver confirmed with patient/requestor that no other refills are due, in the near future, with this provider at this time: Yes The last office visit in the department: 11/28/23 Does the patient have a future office visit with this provider/department: Yes 11/26/2024 Requested Prescriptions Pending Prescriptions Disp Refills cilostazol (PLETAL) 100 mg tablet [Pharmacy Med Name: Cilostazol 100 MG Oral Tablet] 180 tablet 0 Sig: Take 1 tablet by mouth twice daily Delmis Porter RN September 03, 2024 7:43 AM documented in this encounter [facility] 07-26-2024 Note HNO ID: [id number] Author: LOIS MARIE RPFT Service: ? Author Type: Respiratory Therapist Type: Progress Notes Filed: 07/26/2024 08:24 Note Text: PULM FUNCTION: Provider: Apollo Melo MD Assisting Tech: Lois Marie RPFT Spirometry w/BD: 1 [facility] 07-26-2024 History of Presen t illness Narrative PULM FUNCTION: Provider: Apollo Melo MD Assisting Tech: Lois Marie RPFT Spirometry w/BD: 1 documented in this encounter [facility] 07-16-2024 History of Presen t illness Narrative Chief Complaint Patient presents with: F/U 6 Month HPI Amie Killian is a 69 year old male who presents here today for 6 month follow up. No bowel, Gi, or urinary issues. Uses colace as needed for constipation. Also has hydrocortisone suppositories he can uses prn. Had some urinary incontinence which he wears pads. Gets up once a night to urinate. Did note some concern with his PSA slightly increasing but this was discussed with Hem/Onc. Following with Hem/Onc Dr. Perez for prostate cancer, liver lesion, and Diffuse large B-cell lymphoma of intra-abdominal lymph nodes. Taking Xtandi 40 mg 4 pills once a day. PAD/Lipid: Currently on Pletal 100 mg 1 tab po bid. Admits he doesn't eat the way he should. Eats 1-2 x per day, with snacking on junk later on in the day and after he eats his bigger meal. Playing a lot of golf for exercise, about 3-4 x per week. May be the last day for golf today, but if the weather stays nice he will play. Can't play in the cold like he used too. Legs do get tired due to PAD. Once golf season is over he will go to the [facility]. Also does yard work. Follows with Vascular, Dr. Corona. COPD: Continued smoker, 0.5 - 1 ppd, no thoughts on quitting at this time due to his age. Uses Breo Ellipita once daily. Has not used ProAir Inhaler in quite some time. Overall feels his breathing is doing pretty well. Knows his limits with activities to make him get out of breath. Asking if the Navage is good to use. Feels at times he can't breathe out of his nose and will have to breathe out of his mouth. Will use Vix sticks to help open up his nasal passages. Discussed doing PFT testing, which pt is agreeable to do. Denies lung cancer screening. HM - Declines Covid and Shingles at this time, is undecided. Did receive Flu vaccine. Is thinking about RSV vaccine, will more than likely get through Pharmacy, generally receives vaccines through Pharmacy. Has Adv Dir/Living Will scanned into chart. Past medical history, appointments, medications, allergies reviewed. Previous Medical History PAST MEDICAL HISTORY Diagnosis Date Fistula Lesion of liver 06/10/2021 Non Hodgkin's lymphoma (HCC) PAD (peripheral artery disease) (HCC) Prostate cancer (HCC) 12/2011 Previous Surgical History PAST SURGICAL HISTORY Procedure Laterality Date ABDOMINAL SURGERY HX APPENDECTOMY HX COLONOSCOPY 12/24/2021 repeat in 5 years COLONOSCOPY FLX DX W/COLLJ SPEC WHEN PFRMD 02/15/2016 Colonoscopy IMPLANT CATH INSERTION (AG) 07/30/2020 IVAD right chest INCISE FINGER TENDON SHEATH Left 08/26/2021 Left middle and ring trigger finger releases PAST SURGICAL HISTORY OF appendectomy PAST SURGICAL HISTORY OF tonsilectomy PROSTATECTOMY, SIMPLE, BENIGN 01/03/2012 prostate removed TONSILLECTOMY HX Family History FAMILY HISTORY Problem Relation Age of Onset Heart Father of [place] age 80 Stroke Mother Heart Brother Patient Allergies ALLERGIES Allergen Reactions Doxycycline GI Upset Unsure if he really has SE to this medication Current Medications Current Outpatient Medications on File Prior to Visit Medication Sig BREO ELLIPTA 200-25 mcg/dose inhaler Inhale 1 Inhalation as instructed once daily. enzalutamide (XTANDI) 40 mg tablet Take 4 tablets (160 mg) by mouth once daily. cilostazol (PLETAL) 100 mg tablet Take 1 tablet by mouth two times a day. hydrocortisone (PROCTO-CHEN) 1 % crpe 1 application by RECTAL route two times a day as needed. calcium carbonate/vitamin D3 (CALCIUM 600 + D ORAL) Take 2 tablets by mouth once daily. Calcium 600mg+Vitamin D3 800 international units per tablet docusate sodium (COLACE) 100 mg capsule Take 100 mg by mouth once daily as needed for constipation. aspirin, enteric coated (ASPIRIN, ENTERIC COATED) 81 mg EC tablet Take 81 mg by mouth once daily. multivitamin (MULTIPLE VITAMINS ORAL) Take 1 capsule by mouth once daily. albuterol HFA (PROAIR HFA) 90 mcg/actuation inhaler Inhale 2 Puffs as instructed every 4 hours as needed. No current facility-administered medications on file prior to visit. Social History Social History Tobacco Use Smoking status: Every Day Current packs/day: 0.75 Average packs/day: 0.8 packs/day for 47.0 years (35.3 ttl pk-yrs) Types: Cigarettes Smokeless tobacco: Never Vaping Use Vaping status: Never Used Substance Use Topics Alcohol use: Not Currently Comment: Drug use: No EXAM: BP 112/74 (BP Site: Left Arm, BP Position: Sitting, BP Cuff Size: Regular Adult) Pulse 76 Resp 16 Wt 53.7 kg (118 lb 6.2 oz) BMI 18.27 kg/m General Appearance: Well appearing, alert, in no acute distress, well-hydrated, well nourished. and Thin. Lungs: Lungs clear to auscultation. No wheezing, rhonchi, rales.. Heart: RRR without murmur, gallop, or rubs. No ectopy. Health Maintenance List Abdominal Aortic Aneurysm Screening Never done Spirometry Never done Shingrix Vaccine(1 of 2) Never done Alpha-1 Antitrypsin Deficiency Screening Never done RSV Vaccine(1 - Risk 60-74 years 1-dose series) Never done Lipid Screening due on 12/24/2019 Lung Cancer Screening due on 07/10/2021 Advance Directive Discussion due on 09/11/2023 DTaP,Tdap,Td Vaccine(2 - Td or Tdap) due on 12/26/2023 Covid-19 Vaccine( season) due on 05/12/2024 Annual PCP Team Chronic Disease Visit due on 01/25/2025 Depression Screening due on 01/25/2025 Anxiety Screening due on 01/25/2025 Colorectal Cancer Screening due on 12/24/2026 Diabetes Screening due on 07/02/2027 Hepatitis B Vaccine Completed Influenza Vaccine Completed Hepatitis C Screening Completed Pneumococcal Vaccine: 65+ Completed HPV Vaccine Aged Out Data reviewed Infusion Center on 07/02/2024 Component Date Value PSA 07/02/2024 0.88 Protein, Total 07/02/2024 6.6 Albumin 07/02/2024 4.3 Calcium, Total 07/02/2024 9.8 Bilirubin, Total 07/02/2024 0.4 Alkaline Phosphatase 07/02/2024 68 AST 07/02/2024 13 (L) ALT 07/02/2024 6 (L) Glucose 07/02/2024 114 (H) BUN 07/02/2024 10 Creatinine 07/02/2024 0.73 Sodium 07/02/2024 140 Potassium 07/02/2024 3.6 (L) Chloride 07/02/2024 101 CO2 07/02/2024 26 Anion Gap 07/02/2024 13 Estimated Glomerular Steve* 07/02/2024 98 ASSESSMENT/PLAN: 1. Hyperlipidemia, unspecified hyperlipidemia type - ICD9: 272.4, ICD10: E78.5 (primary diagnosis) - continue to monitor - Counseled on healthy diet and regular exercise 2. PAD (peripheral artery disease) (HCC) - ICD9: 443.9, ICD10: I73.9 - Continue walking and doing exercises as tolerated - Cont f/u with Dr. Corona - Continue current medication regimen. 3. Elevated glucose - ICD9: 790.29, ICD10: R73.09 - Continue to monitor - Continue watching diet and stay active/exercise 4. Chronic obstructive pulmonary disease, unspecified COPD type (HCC) - ICD9: 496, ICD10: J44.9 - Check PFT's - Declines Lung Cancer Screening - Continue current medication regimen. - discussed tobacco cessation - SPIROMETRY - BASELINE AND POST DILATOR 5. Prostate cancer (HCC) - ICD9: 185, ICD10: C61 - Cont f/u with Specialist - Continue current medication regimen. 6. Diffuse large B-cell lymphoma of intra-abdominal lymph nodes (HCC) - ICD9: 202.83, ICD10: C83.33 - Cont f/u with Specialist 7. Malignant neoplasm metastatic to bone (HCC) - ICD9: 198.5, ICD10: C79.51 - Cont f/u with Specialist 8. Tobacco use disorder - ICD9: 305.1, ICD10: F17.200 - Cessation encouraged. - Physiologic and physical aspects of tobacco addiction as well as strategies for quitting were discussed. - Counseling was given focusing on the harmful effects of this addiction especially given the patient's medical condition(s) which will be worsened because of the chemicals in tobacco. - SPIROMETRY - BASELINE AND POST DILATOR 9. Internal hemorrhoids - ICD9: 455.0, ICD10: K64.8 - Stable - Continue current medication regimen. - HYDROCORTISONE 1 % TOPICAL CREAM WITH PERINEAL APPLICATOR 6 mo f/u with fasting labs. I agree with the Chief Complaint, ROS, and Past Histories independently gathered by the clinical nursing support worker and the remaining scribed note accurately describes my personal service to the patient. Medical Decision Making: Problems: Moderate: 2+ stable chronic illnesses Data: Unique test(s) ordered: 3+ Risk: Moderate: Drug management Medical Decision Making Level: 4 - Moderate Apollo Melo MD The documentation for this note was completed by Zakia Elam MA acting as scribe for Apollo Melo MD. July 16, 2024 9:18 AM. Zakia Elam MA documented in this encounter [facility] 07-16-2024 Note HNO ID: [id number] Author: APOLLO MELO MD Service: ? Author Type: Physician Type: Progress Notes Filed: 07/16/2024 09:51 Note Text: Chief Complaint Patient presents with: F/U 6 Month HPI Amie Killian is a 69 year old male who presents here today for 6 month follow up. No bowel, Gi, or urinary issues. Uses colace as needed for constipation. Also has hydrocortisone suppositories he can uses prn. Had some urinary incontinence which he wears pads. Gets up once a night to urinate. Did note some concern with his PSA slightly increasing but this was discussed with Hem/Onc. Following with Hem/Onc Dr. Perez for prostate cancer, liver lesion, and Diffuse large B-cell lymphoma of intra-abdominal lymph nodes. Taking Xtandi 40 mg 4 pills once a day. PAD/Lipid: Currently on Pletal 100 mg 1 tab po bid. Admits he doesn't eat the way he should. Eats 1-2 x per day, with snacking on junk later on in the day and after he eats his bigger meal. Playing a lot of golf for exercise, about 3-4 x per week. May be the last day for golf today, but if the weather stays nice he will play. Can't play in the cold like he used too. Legs do get tired due to PAD. Once golf season is over he will go to the [facility]. Also does yard work. Follows with Vascular, Dr. Corona. COPD: Continued smoker, 0.5 - 1 ppd, no thoughts on quitting at this time due to his age. Uses Breo Ellipita once daily. Has not used ProAir Inhaler in quite some time. Overall feels his breathing is doing pretty well. Knows his limits with activities to make him get out of breath. Asking if the Navage is good to use. Feels at times he can't breathe out of his nose and will have to breathe out of his mouth. Will use Vix sticks to help open up his nasal passages. Discussed doing PFT testing, which pt is agreeable to do. Denies lung cancer screening. HM - Declines Covid and Shingles at this time, is undecided. Did receive Flu vaccine. Is thinking about RSV vaccine, will more than likely get through Pharmacy, generally receives vaccines through Pharmacy. Has Adv Dir/Living Will scanned into chart. Past medical history, appointments, medications, allergies reviewed. Previous Medical History PAST MEDICAL HISTORY Diagnosis Date Fistula Lesion of liver 06/10/2021 Non Hodgkin's lymphoma (HCC) PAD (peripheral artery disease) (HCC) Prostate cancer (HCC) 12/2011 Previous Surgical History PAST SURGICAL HISTORY Procedure Laterality Date ABDOMINAL SURGERY HX APPENDECTOMY HX COLONOSCOPY 12/24/2021 repeat in 5 years COLONOSCOPY FLX DX W/COLLJ SPEC WHEN PFRMD 02/15/2016 Colonoscopy IMPLANT CATH INSERTION (AG) 07/30/2020 IVAD right chest INCISE FINGER TENDON SHEATH Left 08/26/2021 Left middle and ring trigger finger releases PAST SURGICAL HISTORY OF appendectomy PAST SURGICAL HISTORY OF tonsilectomy PROSTATECTOMY, SIMPLE, BENIGN 01/03/2012 prostate removed TONSILLECTOMY HX Family History FAMILY HISTORY Problem Relation Age of Onset Heart Father of [place] age 80 Stroke Mother Heart Brother Patient Allergies ALLERGIES Allergen Reactions Doxycycline GI Upset Unsure if he really has SE to this medication Current Medications Current Outpatient Medications on File Prior to Visit Medication Sig BREO ELLIPTA 200-25 mcg/dose inhaler Inhale 1 Inhalation as instructed once daily. enzalutamide (XTANDI) 40 mg tablet Take 4 tablets (160 mg) by mouth once daily. cilostazol (PLETAL) 100 mg tablet Take 1 tablet by mouth two times a day. hydrocortisone (PROCTO-CHEN) 1 % crpe 1 application by RECTAL route two times a day as needed. calcium carbonate/vitamin D3 (CALCIUM 600 + D ORAL) Take 2 tablets by mouth once daily. Calcium 600mg+Vitamin D3 800 international units per tablet docusate sodium (COLACE) 100 mg capsule Take 100 mg by mouth once daily as needed for constipation. aspirin, enteric coated (ASPIRIN, ENTERIC COATED) 81 mg EC tablet Take 81 mg by mouth once daily. multivitamin (MULTIPLE VITAMINS ORAL) Take 1 capsule by mouth once daily. albuterol HFA (PROAIR HFA) 90 mcg/actuation inhaler Inhale 2 Puffs as instructed every 4 hours as needed. No current facility-administered medications on file prior to visit. Social History Social History Tobacco Use Smoking status: Every Day Current packs/day: 0.75 Average packs/day: 0.8 packs/day for 47.0 years (35.3 ttl pk-yrs) Types: Cigarettes Smokeless tobacco: Never Vaping Use Vaping status: Never Used Substance Use Topics Alcohol use: Not Currently Comment: Drug use: No EXAM: BP 112/74 (BP Site: Left Arm, BP Position: Sitting, BP Cuff Size: Regular Adult) Pulse 76 Resp 16 Wt 53.7 kg (118 lb 6.2 oz) BMI 18.27 kg/m? General Appearance: Well appearing, alert, in no acute distress, well-hydrated, well nourished. and Thin. Lungs: Lungs clear to auscultation. No wheezing, rhonchi, rales.. Heart: RRR without murmur, ga (more content not included)... [facility] 07-04-2024 Telephone encounter Note OK to refill as ordered Apollo Melo MD [facility] 07-04-2024 Miscellaneous Notes OK to refill as ordered Apollo Melo MD Prescription Refill Information The patient has been identified by name and date of : Yes Caregiver verified no other encounters exist for this prescription request: Yes Caregiver confirmed with patient/requestor that no other refills are due, in the near future, with this provider at this time: Yes The last office visit in the department: 01/26/24 Does the patient have a future office visit with this provider/department: Yes 07/16/24 Requested Prescriptions Pending Prescriptions Disp Refills BREO ELLIPTA 200-25 mcg/dose inhaler 60 Each 11 Kathleen Prater LPN July 04, 2024 10:45 AM documented in this encounter [facility] 07-04-2024 Telephone encounter Note Prescription Refill Information The patient has been identified by name and date of : Yes Caregiver verified no other encounters exist for this prescription request: Yes Caregiver confirmed with patient/requestor that no other refills are due, in the near future, with this provider at this time: Yes The last office visit in the department: 01/26/24 Does the patient have a future office visit with this provider/department: Yes 07/16/24 Requested Prescriptions Pending Prescriptions Disp Refills BREO ELLIPTA 200-25 mcg/dose inhaler 60 Each 11 Kathleen Prater LPN July 04, 2024 10:[address] [facility] 07-04-2024 Note HNO ID: [id number] Author: FRANCISCO JAVIER PEREZ MD Service: ? Author Type: Physician Type: Progress Notes Filed: 07/04/2024 11:23 Note Text: (Elements copied from my note dated October 27, 2023, have been reviewed and updated where appropriate, and all reflect current assessment and medical decision making from today's encounter, July 04, 2024) HISTORY OF PRESENT ILLNESS: Amie Killian is a 68 year old male with a history of diffuse large cell lymphoma. This has been in complete remission with no evidence of recurrence after completion of 5 cycles of CHOP Rituxan completed 10-14-20. 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 Not extensive or present elsewhere therefore has been appropriately monitored without therapeutic intervention. In 2011 underwent radical prostatectomy followed by postop adjuvant radiation because of high risk prostatic cancer. Bone metastasis were subsequently detected and has been started and was maintained on Zytiga and prednisone plus Lupron. switched to Xtandi November 28, 2022 due to loss of the financial support from [place]. Here for follow up, doing well. Labs reviewed. Edentulous. No pain or urinary issues. PSA slowly increasing, DT about 1 year Lupron/CAB since 06-17-21 CLINICAL IMPRESSION: Prostate cancer with bone mets History DLCL, clinically remains in remission RECOMMENDATION/PLAN: 1. Continue CAB GnRH and enzalutamide 2. Bisphosphonate every 3 months Written and verbal health teaching given to patient, patient verbalizes understanding and agrees with treatment plan. PAST MEDICAL HISTORY Diagnosis Date Fistula Lesion of liver 06/10/2021 Non Hodgkin's lymphoma (HCC) PAD (peripheral artery disease) (HCC) Prostate cancer (HCC) 12/2011 PAST SURGICAL HISTORY Procedure Laterality Date ABDOMINAL SURGERY HX APPENDECTOMY HX COLONOSCOPY 12/24/2021 repeat in 5 years COLONOSCOPY FLX DX W/COLLJ SPEC WHEN PFRMD 02/15/2016 Colonoscopy IMPLANT CATH INSERTION (AG) 07/30/2020 IVAD right chest INCISE FINGER TENDON SHEATH Left 08/26/2021 Left middle and ring trigger finger releases PAST SURGICAL HISTORY OF appendectomy PAST SURGICAL HISTORY OF tonsilectomy PROSTATECTOMY, SIMPLE, BENIGN 01/03/2012 prostate removed TONSILLECTOMY HX FAMILY HISTORY Problem Relation Age of Onset Heart Father of [place] age 80 Stroke Mother Heart Brother Social History Tobacco Use Smoking status: Every Day Current packs/day: 0.75 Average packs/day: 0.8 packs/day for 47.0 years (35.3 ttl pk-yrs) Types: Cigarettes Smokeless tobacco: Never Vaping Use Vaping status: Never Used Substance Use Topics Alcohol use: Not Currently Comment: Drug use: No ALLERGIES: ALLERGIES Allergen Reactions Doxycycline GI Upset Unsure if he really has SE to this medication CURRENT OUTPATIENT MEDICATIONS: enzalutamide (XTANDI) 40 mg tabletTake 4 tablets (160 mg) by mouth once daily.Disp: 120 tabletRfl: 3 cilostazol (PLETAL) 100 mg tabletTake 1 tablet by mouth two times a day.Disp: 180 tabletRfl: 3 hydrocortisone (PROCTO-CHEN) 1 % crpe1 application by RECTAL route two times a day as needed.Disp: 28.4 gRfl: 2 BREO ELLIPTA 200-25 mcg/dose inhalerINHALE 1 PUFF BY MOUTH ONCE DAILY DIRECTED. DO NOT CLICK OPEN UNTIL READY FOR DOSEDisp: 60 EachRfl: 11 calcium carbonate/vitamin D3 (CALCIUM 600 + D ORAL)Take 2 tablets by mouth once daily. Calcium 600mg+Vitamin D3 800 international units per tabletDisp: Rfl: docusate sodium (COLACE) 100 mg capsuleTake 100 mg by mouth once daily as needed for constipation.Disp: Rfl: aspirin, enteric coated (ASPIRIN, ENTERIC COATED) 81 mg EC tabletTake 81 mg by mouth once daily.Disp: Rfl: multivitamin (MULTIPLE VITAMINS ORAL)Take 1 capsule by mouth once daily.Disp: Rfl: albuterol HFA (PROAIR HFA) 90 mcg/actuation inhalerInhale 2 Puffs as instructed every 4 hours as needed.Disp: 1 InhalerRfl: 11 REVIEW OF SYSTEMS: GENERAL: No fever, night sweats, weight loss or malaise. All other reviewed and negative other than HPI. PHYSICAL EXAMINATION: VITAL SIGNS: BP 150/95 Pulse 68 Temp (Src) 97 (Temporal) Wt 119 lb (54.0kg) SpO2 99% GENERAL APPEARANCE: Well appearing, in no acute distress, alert and oriented x3, well-hydrated, well nourished. NECK: Supple, no JVD or lymphadenopathy, thyroid symmetric, normal size, no bruits. ABDOMEN: Abdomen soft, non-tender with no organomegaly, bowel sounds normal, no masses. EXTREMITIES: no adenopathy I spent a total of 20 minutes on the date of the service which included preparing to see the patient, [id number] patient care, completing clinical documentation, obtaining and/or reviewing separately obtained history, performing a medically appropriate examination, counseling and educating the patient/family/caregiver, independently interpreting results (not separately reported), and communicating results to the patient/family/ (more content not included)... [facility] 07-04-2024 History of Presen t illness Narrative (Elements copied from my note dated October 27, 2023, have been reviewed and updated where appropriate, and all reflect current assessment and medical decision making from today's encounter, July 04, 2024) HISTORY OF PRESENT ILLNESS: Amie Killian is a 68 year old male with a history of diffuse large cell lymphoma. This has been in complete remission with no evidence of recurrence after completion of 5 cycles of CHOP Rituxan completed 10-14-20. 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 Not extensive or present elsewhere therefore has been appropriately monitored without therapeutic intervention. In 2011 underwent radical prostatectomy followed by postop adjuvant radiation because of high risk prostatic cancer. Bone metastasis were subsequently detected and has been started and was maintained on Zytiga and prednisone plus Lupron. switched to Xtandi November 28, 2022 due to loss of the financial support from [employer] and [facility]. Here for follow up, doing well. Labs reviewed. Edentulous. No pain or urinary issues. PSA slowly increasing, DT about 1 year Lupron/CAB since 06-17-21 CLINICAL IMPRESSION: Prostate cancer with bone mets History DLCL, clinically remains in remission RECOMMENDATION/PLAN: 1. Continue CAB GnRH and enzalutamide 2. Bisphosphonate every 3 months Written and verbal health teaching given to patient, patient verbalizes understanding and agrees with treatment plan. PAST MEDICAL HISTORY Diagnosis Date Fistula Lesion of liver 06/10/2021 Non Hodgkin's lymphoma (HCC) PAD (peripheral artery disease) (HCC) Prostate cancer (HCC) 12/2011 PAST SURGICAL HISTORY Procedure Laterality Date ABDOMINAL SURGERY HX APPENDECTOMY HX COLONOSCOPY 12/24/2021 repeat in 5 years COLONOSCOPY FLX DX W/COLLJ SPEC WHEN PFRMD 02/15/2016 Colonoscopy IMPLANT CATH INSERTION (AG) 07/30/2020 IVAD right chest INCISE FINGER TENDON SHEATH Left 08/26/2021 Left middle and ring trigger finger releases PAST SURGICAL HISTORY OF appendectomy PAST SURGICAL HISTORY OF tonsilectomy PROSTATECTOMY, SIMPLE, BENIGN 01/03/2012 prostate removed TONSILLECTOMY HX FAMILY HISTORY Problem Relation Age of Onset Heart Father of [place] age 80 Stroke Mother Heart Brother Social History Tobacco Use Smoking status: Every Day Current packs/day: 0.75 Average packs/day: 0.8 packs/day for 47.0 years (35.3 ttl pk-yrs) Types: Cigarettes Smokeless tobacco: Never Vaping Use Vaping status: Never Used Substance Use Topics Alcohol use: Not Currently Comment: Drug use: No ALLERGIES: ALLERGIES Allergen Reactions Doxycycline GI Upset Unsure if he really has SE to this medication CURRENT OUTPATIENT MEDICATIONS: enzalutamide (XTANDI) 40 mg tablet^Take 4 tablets (160 mg) by mouth once daily.^Disp: 120 tablet^Rfl: 3 cilostazol (PLETAL) 100 mg tablet^Take 1 tablet by mouth two times a day.^Disp: 180 tablet^Rfl: 3 hydrocortisone (PROCTO-CHEN) 1 % crpe^1 application by RECTAL route two times a day as needed.^Disp: 28.4 g^Rfl: 2 BREO ELLIPTA 200-25 mcg/dose inhaler^INHALE 1 PUFF BY MOUTH ONCE DAILY DIRECTED. DO NOT CLICK OPEN UNTIL READY FOR DOSE^Disp: 60 Each^Rfl: 11 calcium carbonate/vitamin D3 (CALCIUM 600 + D ORAL)^Take 2 tablets by mouth once daily. Calcium 600mg+Vitamin D3 800 international units per tablet^Disp: ^Rfl: docusate sodium (COLACE) 100 mg capsule^Take 100 mg by mouth once daily as needed for constipation.^Disp: ^Rfl: aspirin, enteric coated (ASPIRIN, ENTERIC COATED) 81 mg EC tablet^Take 81 mg by mouth once daily.^Disp: ^Rfl: multivitamin (MULTIPLE VITAMINS ORAL)^Take 1 capsule by mouth once daily.^Disp: ^Rfl: albuterol HFA (PROAIR HFA) 90 mcg/actuation inhaler^Inhale 2 Puffs as instructed every 4 hours as needed.^Disp: 1 Inhaler^Rfl: 11 REVIEW OF SYSTEMS: GENERAL: No fever, night sweats, weight loss or malaise. All other reviewed and negative other than HPI. PHYSICAL EXAMINATION: VITAL SIGNS: BP 150/95 Pulse 68 Temp (Src) 97 (Temporal) Wt 119 lb (54.0kg) SpO2 99% GENERAL APPEARANCE: Well appearing, in no acute distress, alert and oriented x3, well-hydrated, well nourished. NECK: Supple, no JVD or lymphadenopathy, thyroid symmetric, normal size, no bruits. ABDOMEN: Abdomen soft, non-tender with no organomegaly, bowel sounds normal, no masses. EXTREMITIES: no adenopathy I spent a total of 20 minutes on the date of the service which included preparing to see the patient, [id number] patient care, completing clinical documentation, obtaining and/or reviewing separately obtained history, performing a medically appropriate examination, counseling and educating the patient/family/caregiver, independently interpreting results (not separately reported), and communicating results to the patient/family/caregiver. Electronically Signed: Francisco Javier Perez MD July 04, 2024 documented in this encounter [facility] 06-28-2024 Telephone encounter Note Patient has been identified by name and date of : Yes Last office visit in this department: 07/31/2013 RX INSTRUCTIONS: Pharmacy initiated this request. No need to notify patient. Patient phones requesting refills as follows: Requested Prescriptions Pending Prescriptions Disp Refills enzalutamide (XTANDI) 40 mg tablet 120 tablet 3 Sig: Take 4 tablets (160 mg) by mouth once daily. Please review and advise. Delmis Randle [facility] Work Phone: 06-28-2024 Miscellaneous Notes Patient has been identified by name and date of : Yes Last office visit in this department: 07/31/2013 RX INSTRUCTIONS: Pharmacy initiated this request. No need to notify patient. Patient phones requesting refills as follows: Requested Prescriptions Pending Prescriptions Disp Refills enzalutamide (XTANDI) 40 mg tablet 120 tablet 3 Sig: Take 4 tablets (160 mg) by mouth once daily. Please review and advise. Delmis Randle documented in this encounter [facility] 04-09-2024 Note HNO ID: [id number] Author: PACO LANDEROS RN Service: ? Author Type: Registered Nurse Type: Progress Notes Filed: 04/09/2024 07:33 Note Text: Patient is here for IVAD port flush/blood draw per Nursing Pierre Part protocol. IVAD is located in right upper chest. Site cleansed with Chloraprep IVAD accessed with a #20 gauge 3/4 non-coring Gripper needle Flush with 5cc's Normal Saline. Blood Return: Good. 10 cc's blood aspirated and discarded. Blood drawn for CBC, CMP, and PSA. Flushed with: 20 ml Normal Saline. Non-coring needle removed. Paper tape applied to puncture site. Site negative for redness, edema or tenderness. Patient tolerated procedure well. [facility] 04-09-2024 History of Presen t illness Narrative Patient is here for IVAD port flush/blood draw per Nursing Pierre Part protocol. IVAD is located in right upper chest. Site cleansed with Chloraprep IVAD accessed with a #20 gauge 3/4 non-coring Gripper needle Flush with 5cc's Normal Saline. Blood Return: Good. 10 cc's blood aspirated and discarded. Blood drawn for CBC, CMP, and PSA. Flushed with: 20 ml Normal Saline. Non-coring needle removed. Paper tape applied to puncture site. Site negative for redness, edema or tenderness. Patient tolerated procedure well. documented in this encounter [facility] 04-08-2024 Telephone encounter Note Notes added to appointment notes. Schedule updated. Patient sent several my chart messages- all addressed. [facility] Work Phone: 04-08-2024 Miscellaneous Notes Notes added to appointment notes. Schedule updated. Patient sent several my chart messages- all addressed. documented in this encounter [facility] 01-30-2024 Telephone encounter Note Patient stopped in to draw A1C lab. He said he was told he could come at any time but the can not be pulled until 03/13/2024 because of the req date. Please advise if you need this lab sooner and let patient know. I said I would put a note to his provider for him. ABBE Cabrera [facility] 01-30-2024 Miscellaneous Notes Patient stopped in to draw A1C lab. He said he was told he could come at any time but the can not be pulled until 03/13/2024 because of the req date. Please advise if you need this lab sooner and let patient know. I said I would put a note to his provider for him. Arin Barron, PSS documented in this encounter [facility] 01-26-2024 History of Presen t illness Narrative Chief Complaint Patient presents with: 6 Month Exam HPI Amie Killian is a 68 year old male who presents here today for a 6 month follow up. Has been playing a lot of golf. Still smoking, less than 1 ppd. No interest in quitting. He has osteopenia. Has been losing weight. He eats ok, gets hungry. Eats 1 good large meal a day and then will eat some snacks and fruits through the day. Has occasional constipation, uses vegetable laxative prn and Procto-Chen prn. Follows with Urology for urinary retention and prostate cancer. Does pelvic floor exercises and wear pads for urinary issues. COPD: Overall stable. Uses Breo Ellipta Inhaler daily and rare use of Albuterol inhaler. Does not follow with a Medical Facilities Section Director. Hem/Onc: Follows routinely with Hem/Onc for diffuse large B-Cell lymphoma of intra-abdominal lymph nodes. Lesion of liver and malignant neoplasm of prostate. Receives Lupron injections. Dizziness: noticed dizziness after getting both Lupron and Zometa in the same day from Hem/Onc. He woke up in the middle of the night to urinate and was really dizzy and then when he woke up that morning he stood up and was dizzy and fell back on the bed. He is still having it some. Tries to drink water but admits he doesn't drink a lot of water through the day. PAD/Lipid: Currently on Pletal 100 mg 1 tab po bid. Tries to watch his diet and goes to the [facility] more to exercise. Follows with Vascular, Dr. Corona. Drinks 2-3 10 oz cups of coffee a day. Behavioral Health Screening; Denies feeling depressed or hopeless. Admits there is some drama in his home at this time but stated this is not the place to discuss it. Behavioral Health Screening PHQ-2 Score: 0 (Lower risk for depression) MARYAM-2 Score: 0 (Lower risk for anxiety) Recommendation: No further intervention at this time Past medical history, appointments, medications, allergies reviewed. Previous Medical History PAST MEDICAL HISTORY Diagnosis Date Fistula Lesion of liver 06/10/2021 Non Hodgkin's lymphoma (HCC) PAD (peripheral artery disease) (HCC) Prostate cancer (HCC) 12/2011 Previous Surgical History PAST SURGICAL HISTORY Procedure Laterality Date ABDOMINAL SURGERY HX APPENDECTOMY HX COLONOSCOPY 12/24/2021 repeat in 5 years COLONOSCOPY FLX DX W/COLLJ SPEC WHEN PFRMD 02/15/2016 Colonoscopy IMPLANT CATH INSERTION (AG) 07/30/2020 IVAD right chest INCISE FINGER TENDON SHEATH Left 08/26/2021 Left middle and ring trigger finger releases PAST SURGICAL HISTORY OF appendectomy PAST SURGICAL HISTORY OF tonsilectomy PROSTATECTOMY, SIMPLE, BENIGN 01/03/2012 prostate removed TONSILLECTOMY HX Family History FAMILY HISTORY Problem Relation Age of Onset Heart Father of [place] age 80 Stroke Mother Heart Brother Patient Allergies ALLERGIES Allergen Reactions Doxycycline GI Upset Unsure if he really has SE to this medication Current Medications Current Outpatient Medications on File Prior to Visit Medication Sig enzalutamide (XTANDI) 40 mg tablet Take 4 tablets (160 mg) by mouth once daily. cilostazol (PLETAL) 100 mg tablet Take 1 tablet by mouth two times a day. hydrocortisone (PROCTO-CHEN) 1 % crpe 1 application by RECTAL route two times a day as needed. BREO ELLIPTA 200-25 mcg/dose inhaler INHALE 1 PUFF BY MOUTH ONCE DAILY DIRECTED. DO NOT CLICK OPEN UNTIL READY FOR DOSE calcium carbonate/vitamin D3 (CALCIUM 600 + D ORAL) Take 2 tablets by mouth once daily. Calcium 600mg+Vitamin D3 800 international units per tablet docusate sodium (COLACE) 100 mg capsule Take 100 mg by mouth once daily as needed for constipation. aspirin, enteric coated (ASPIRIN, ENTERIC COATED) 81 mg EC tablet Take 81 mg by mouth once daily. multivitamin (MULTIPLE VITAMINS ORAL) Take 1 capsule by mouth once daily. albuterol HFA (PROAIR HFA) 90 mcg/actuation inhaler Inhale 2 Puffs as instructed every 4 hours as needed. No current facility-administered medications on file prior to visit. Social History Social History Tobacco Use Smoking status: Every Day Packs/day: 0.75 Years: 47.00 Additional pack years: 0.00 Total pack years: 35.25 Types: Cigarettes Smokeless tobacco: Never Vaping Use Vaping Use: Never used Substance Use Topics Alcohol use: Not Currently Comment: Drug use: No EXAM: BP 124/78 Pulse 62 Resp 16 Wt 54.4 kg (119 lb 14.4 oz) BMI 18.50 kg/m General Appearance: Well appearing, alert, in no acute distress, well-hydrated, well nourished.. Lungs: Lungs clear to auscultation. No wheezing, rhonchi, rales.. Heart: RRR without murmur, gallop, or rubs. No ectopy. Health Maintenance List Abdominal Aortic Aneurysm Screening Never done Spirometry Never done Shingrix Vaccine(1 of 2) Never done Alpha-1 Antitrypsin Deficiency Screening Never done RSV Vaccine(1 - 1-dose 60+ series) Never done Lipid Screening due on 12/24/2019 Lung Cancer Screening due on 07/10/2021 Advance Directive Discussion due on 09/11/2023 Behavioral Health Screening Never done Covid-19 Vaccine( season) due on 09/12/2023 DTaP,Tdap,Td Vaccine(2 - Td or Tdap) due on 12/26/2023 Annual PCP Team Chronic Disease Visit due on 07/17/2024 Colorectal Cancer Screening due on 12/24/2026 Diabetes Screening due on 01/16/2027 Hepatitis B Vaccine Completed Influenza Vaccine Completed Hepatitis C Screening Completed Pneumococcal Vaccine: 65+ Completed HPV Vaccine Aged Out Data reviewed None ASSESSMENT/PLAN: 1. Hyperlipidemia, unspecified hyperlipidemia type - ICD9: 272.4, ICD10: E78.5 (primary diagnosis) - Controlled - Continue current medications - Counseled on healthy diet and regular exercise 2. PAD (peripheral artery disease) (HCC) - ICD9: 443.9, ICD10: I73.9 Continue current medications. Continue with Vascular 3. Tobacco use disorder - ICD9: 305.1, ICD10: F17.200 - Cessation encouraged. - Physiologic and physical aspects of tobacco addiction as well as strategies for quitting were discussed. - Counseling was given focusing on the harmful effects of this addiction especially given the patient's medical condition(s) which will be worsened because of the chemicals in tobacco. - Counseling was given 4. Chronic obstructive pulmonary disease, unspecified COPD type (HCC) - ICD9: 496, ICD10: J44.9 Stable Continue current medications. 5. Prostate cancer (HCC) - ICD9: 185, ICD10: C61 Continue with Urologist and Hem/onc 6. Diffuse large B-cell lymphoma of intra-abdominal lymph nodes (HCC) - ICD9: 202.83, ICD10: C83.33 Continue with Hem/Onc 7. Dizziness - ICD9: 780.4, ICD10: R42 Continue to monitor Take time changing positions, sitting to standing Increase water intake 8. Weight loss - ICD9: 783.21, ICD10: R63.4 Continue to monitor Appetite good 9. Elevated glucose - ICD9: 790.29, ICD10: R73.09 Check A1c next time he gets labs Follow up in 6 months. I agree with the Chief Complaint, ROS, and Past Histories independently gathered by the clinical nursing support worker and the remaining scribed note accurately describes my personal service to the patient. Medical Decision Making: Problems: Moderate: 2+ stable chronic illnesses Data: Unique test result(s) reviewed: 1 Risk: Moderate: Drug management Medical Decision Making Level: 4 - Moderate Apollo Melo MD The documentation for this note was completed by Anita Inman MA acting as scribe for Apollo Melo MD. January 26, 2024 3:06 PM. Anita Inman MA documented in this encounter [facility] 01-18-2024 Telephone encounter Note Per Dr. Lacy HARRISON is WNL, continue current treatment plan. PSA is stable. Patient notified. Alesia Schroeder LPN [facility] 01-18-[address] Lacy HARRISON is WNL, continue current treatment plan. PSA is stable. Patient notified. Alesia Schroeder LPN Patient here for treatment today and has noticed that his PSA has been slightly rising with the last 2 Lupron/Zometa appointments,. Please advise., documented in this encounter [facility] 01-18-2024 Telephone encounter Note Patient here for treatment today and has noticed that his PSA has been slightly rising with the last 2 Lupron/Zometa appointments,. Please advise., [facility] 11-28-2023 History of Presen t illness Narrative Images from the original note were not included. [facility] DEPARTMENT OF VASCULAR SURGERY OUTPATIENT VISIT DATE November 28, 2023 OUTPATIENT VISIT TYPE ESTABLISHED SERVICE DATE: 11/28/2023 SERVICE TIME: 8:29 AM PRIMARY CARE PHYSICIAN: Apollo Melo MD HISTORY OF PRESENT ILLNESS: Mr. Killian is a 68 year old male who presents today for a vascular surgery follow-up visit for peripheral arterial disease. Denies rest pain or ulceration. States he will noticed right sooner than left claudication. Pletal has significantly helped his walking distance. PAST MEDICAL HISTORY Diagnosis Date Fistula Lesion of liver 06/10/2021 Non Hodgkin's lymphoma (HCC) PAD (peripheral artery disease) (HCC) Prostate cancer (HCC) 12/2011 PAST SURGICAL HISTORY Procedure Laterality Date ABDOMINAL SURGERY HX APPENDECTOMY HX COLONOSCOPY 12/24/2021 repeat in 5 years COLONOSCOPY FLX DX W/COLLJ SPEC WHEN PFRMD 02/15/2016 Colonoscopy IMPLANT CATH INSERTION (AG) 07/30/2020 IVAD right chest INCISE FINGER TENDON SHEATH Left 08/26/2021 Left middle and ring trigger finger releases PAST SURGICAL HISTORY OF appendectomy PAST SURGICAL HISTORY OF tonsilectomy PROSTATECTOMY, SIMPLE, BENIGN 01/03/2012 prostate removed TONSILLECTOMY HX SOCIAL HISTORY Social History Tobacco Use Smoking status: Every Day Packs/day: 0.75 Years: 47.00 Additional pack years: 0.00 Total pack years: 35.25 Types: Cigarettes Smokeless tobacco: Never Vaping Use Vaping Use: Never used Substance Use Topics Alcohol use: Not Currently Comment: Drug use: No MEDICATIONS: enzalutamide (XTANDI) 40 mg tablet Take 4 tablets (160 mg) by mouth once daily. cilostazol (PLETAL) 100 mg tablet Take 1 tablet by mouth two times a day. hydrocortisone (PROCTO-CHEN) 1 % crpe 1 application by RECTAL route two times a day as needed. BREO ELLIPTA 200-25 mcg/dose inhaler INHALE 1 PUFF BY MOUTH ONCE DAILY DIRECTED. DO NOT CLICK OPEN UNTIL READY FOR DOSE calcium carbonate/vitamin D3 (CALCIUM 600 + D ORAL) Take 2 tablets by mouth once daily. Calcium 600mg+Vitamin D3 800 international units per tablet docusate sodium (COLACE) 100 mg capsule Take 100 mg by mouth once daily as needed for constipation. aspirin, enteric coated (ASPIRIN, ENTERIC COATED) 81 mg EC tablet Take 81 mg by mouth once daily. multivitamin (MULTIPLE VITAMINS ORAL) Take 1 capsule by mouth once daily. albuterol HFA (PROAIR HFA) 90 mcg/actuation inhaler Inhale 2 Puffs as instructed every 4 hours as needed. ALLERGIES: ALLERGIES Allergen Reactions Doxycycline GI Upset Unsure if he really has SE to this medication PHYSICAL EXAM: There were no vitals taken for this visit. Gen- no distress EXT- No ulceration or tissue loss, no edema Diagnostic tests reviewed for today's visit: Most recent labs Most recent imaging PVRs- R 0.73, L-0.72 IMPRESSION: Mr. Killian is a 68 year old male with peripheral arterial disease . PLAN and RECOMMENDATIONS: Continue non-interventional therapy Continue blood pressure or cholesterol control, continue pletal Follow up in one year with PVRs or sooner with any concerns SIGNATURE: Amanda Corona DO PATIENT NAME: Amie Killian DATE: November 28, 2023 TIME: 8:29 AM documented in this encounter [facility] 10-27-2023 History of Presen t illness Narrative patient had OV with Dr Perez please refer to OV dated today for VS and assessment documented in this encounter [facility] 10-27-2023 History of Presen t illness Narrative (Elements copied from my note 2022 , have been reviewed and updated where appropriate, and all reflect current assessment and medical decision making from today's encounter, October 27, 2023) HISTORY OF PRESENT ILLNESS: Amie Killian is a 68 year old male with a history of diffuse large cell lymphoma. This has been in complete remission with no evidence of recurrence after completion of 5 cycles of CHOP Rituxan completed 10-14-20. 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 Not extensive or present elsewhere therefore has been appropriately monitored without therapeutic intervention. In 2011 underwent radical prostatectomy followed by postop adjuvant radiation because of high risk prostatic cancer. Bone metastasis were subsequently detected and has been started and was maintained on Zytiga and prednisone plus Lupron. switched to Xtandi November 28, 2022 due to loss of the financial support from [facility]. Here for follow up, doing well. Labs reviewed. Edentulous. No pain or urinary issues. PSA stable to improved Lupron/CAB since 06-17-21 CLINICAL IMPRESSION: Prostate cancer with bone mets History DLCL, clinically remains in remission RECOMMENDATION/PLAN: 1. Continue CAB GnRH and enzalutamide 2. Bisphosphonate every 3 months Written and verbal health teaching given to patient, patient verbalizes understanding and agrees with treatment plan. PAST MEDICAL HISTORY Diagnosis Date Fistula Lesion of liver 06/10/2021 Non Hodgkin's lymphoma (HCC) PAD (peripheral artery disease) (HCC) Prostate cancer (HCC) 12/2011 PAST SURGICAL HISTORY Procedure Laterality Date ABDOMINAL SURGERY HX APPENDECTOMY HX COLONOSCOPY 12/24/2021 repeat in 5 years COLONOSCOPY FLX DX W/COLLJ SPEC WHEN PFRMD 02/15/2016 Colonoscopy IMPLANT CATH INSERTION (AG) 07/30/2020 IVAD right chest INCISE FINGER TENDON SHEATH Left 08/26/2021 Left middle and ring trigger finger releases PAST SURGICAL HISTORY OF appendectomy PAST SURGICAL HISTORY OF tonsilectomy PROSTATECTOMY, SIMPLE, BENIGN 01/03/2012 prostate removed TONSILLECTOMY HX FAMILY HISTORY Problem Relation Age of Onset Heart Father of [place] age 80 Stroke Mother Heart Brother Social History Tobacco Use Smoking status: Every Day Packs/day: 0.75 Years: 47.00 Additional pack years: 0.00 Total pack years: 35.25 Types: Cigarettes Smokeless tobacco: Never Vaping Use Vaping Use: Never used Substance Use Topics Alcohol use: Not Currently Comment: Drug use: No ALLERGIES: ALLERGIES Allergen Reactions Doxycycline GI Upset Unsure if he really has SE to this medication CURRENT OUTPATIENT MEDICATIONS: enzalutamide (XTANDI) 40 mg tablet Take 4 tablets (160 mg) by mouth once daily. cilostazol (PLETAL) 100 mg tablet Take 1 tablet by mouth two times a day. hydrocortisone (PROCTO-CHEN) 1 % crpe 1 application by RECTAL route two times a day as needed. BREO ELLIPTA 200-25 mcg/dose inhaler INHALE 1 PUFF BY MOUTH ONCE DAILY DIRECTED. DO NOT CLICK OPEN UNTIL READY FOR DOSE calcium carbonate/vitamin D3 (CALCIUM 600 + D ORAL) Take 2 tablets by mouth once daily. Calcium 600mg+Vitamin D3 800 international units per tablet docusate sodium (COLACE) 100 mg capsule Take 100 mg by mouth once daily as needed for constipation. aspirin, enteric coated (ASPIRIN, ENTERIC COATED) 81 mg EC tablet Take 81 mg by mouth once daily. multivitamin (MULTIPLE VITAMINS ORAL) Take 1 capsule by mouth once daily. albuterol HFA (PROAIR HFA) 90 mcg/actuation inhaler Inhale 2 Puffs as instructed every 4 hours as needed. REVIEW OF SYSTEMS: GENERAL: No fever, night sweats, weight loss or malaise. All other reviewed and negative other than HPI. PHYSICAL EXAMINATION: VITAL SIGNS: BP 145/90 Pulse 69 Temp 96.4 Wt 121 lb (54.9kg) SpO2 92% GENERAL APPEARANCE: Well appearing, in no acute distress, alert and oriented x3, well-hydrated, well nourished. NECK: Supple, no JVD or lymphadenopathy, thyroid symmetric, normal size, no bruits. ABDOMEN: Abdomen soft, non-tender with no organomegaly, bowel sounds normal, no masses. EXTREMITIES: no adenopathy I spent a total of 30 minutes on the date of the service which included preparing to see the patient, [id number] patient care, completing clinical documentation, obtaining and/or reviewing separately obtained history, performing a medically appropriate examination, counseling and educating the patient/family/caregiver, independently interpreting results (not separately reported), and communicating results to the patient/family/caregiver. Electronically Signed: Francisco Javier Perez MD October 27, 2023 documented in this encounter [facility] 07-21-2023 Nurse Note Pt here for injection of Lupron. Given IM in right buttocks. Pt tolerated well. Radha Medina LPN documented in this encounter [facility] 07-21-2023 History of Presen t illness Narrative Patient is here for IVAD port flush/blood draw per Nursing [facility] protocol. IVAD is located in right upper chest. Site cleansed with Chloraprep IVAD accessed with a #20 gauge 3/4 non-coring Gripper needle Flush with 5cc's Normal Saline. Blood Return: Good. 10 cc's blood aspirated and discarded. Blood drawn for CBC and CMP. Flushed with: 20 ml Normal Saline and 5 ml Heparin Lock Flush. Non-coring needle removed. Paper tape applied to puncture site. Site negative for redness, edema or tenderness. Patient tolerated procedure well. documented in this encounter [facility] 07-17-2023 Instructions Zakia Elam Ma - 07/17/2023 3:19 PM EST Okay to get Covid vaccine at Pharmacy. Check into RSV vaccine through Pharmacy. documented in this encounter [facility] 07-17-2023 History of Presen t illness Narrative Chief Complaint Patient presents with: F/U 6 Month HPI Amie Killian is a 68 year old male who presents here today for 6 month follow up. Still smokes less than 1 ppd. No bowel, GI, or urinary issues. Uses vegetable laxatives prn constipation and Procto-Chen prn. Follows with Urologist for urinary retention and prostate cancer. Does pelvic floor exercises. Wears pads due to urinary issues. No chest pains, dizziness, or SOB. COPD: Breathing stable. Uses Breo Ellipta inhaler daily, doing well. Rare use of Albuterol Inhaler. States that he does better with generally just using the Breo. States he does cough up whitish clear color phlegm from COPD. Hem/Onc - Follows with Hem/onc for diffuse large B-Cell lymphoma of intra-abdominal lymph nodes, lesion of liver and malignant neoplasm of prostate. Was started back on Lupron due to elevated PSA and increased bone lesions. PAD/Lipid: Follows with Vascular, Dr. Corona. Is taking Pletal 100 mg 1 pill BID. Tries to watch diet and eating a little more. Notes he did lose a little weight due to only eating once a day, then eating junk and golfing more. Trying to go the [employer] more and exercise, due to not being able to play golf during the colder months. Trying to also eat better. Wants to gain a little weight. No pain with walking. Notes if he does too much walking his right leg will hurt, but if he sits and rests for a little bit this will resolve. Derm - Was referred to [facility] last visit for concerns of AK or SCC. Had this spot removed on the top of his head and also in L ear. Notes that the area on top of his head was all the way to his skull. Spot in his ear was large as well. Finger - Notes hx of trigger finger, has seen OrthoDr. Lebron in the past with surgery done. Having issues with his right middle finger, towards the end of his finger. Has a catch there at times. Tends to be worse in the colder months vs the warmer months. States the end of his finger is freezing cold and it takes him quite some time to warm it up. Denies finger turning white or blue. Ophth - Needs to have cataract surgery. Trying to decide if he wants to have this taken care of or his finger first. HM - Wants to think about getting the Covid vaccine, plans to get it but would like to think about it. Also recommended RSV vaccine. Past medical history, appointments, medications, allergies reviewed. Previous Medical History PAST MEDICAL HISTORY Diagnosis Date Fistula Lesion of liver 06/10/2021 Non Hodgkin's lymphoma (HCC) PAD (peripheral artery disease) (HCC) Prostate cancer (HCC) 12/2011 Previous Surgical History PAST SURGICAL HISTORY Procedure Laterality Date ABDOMINAL SURGERY HX APPENDECTOMY HX COLONOSCOPY 12/24/2021 repeat in 5 years COLONOSCOPY FLX DX W/COLLJ SPEC WHEN PFRMD 02/15/2016 Colonoscopy IMPLANT CATH INSERTION (AG) 07/30/2020 IVAD right chest INCISE FINGER TENDON SHEATH Left 08/26/2021 Left middle and ring trigger finger releases PAST SURGICAL HISTORY OF appendectomy PAST SURGICAL HISTORY OF tonsilectomy PROSTATECTOMY, SIMPLE, BENIGN 01/03/2012 prostate removed TONSILLECTOMY HX Family History FAMILY HISTORY Problem Relation Age of Onset Heart Father of [place] age 80 Stroke Mother Heart Brother Patient Allergies ALLERGIES Allergen Reactions Doxycycline GI Upset Unsure if he really has SE to this medication Current Medications Current Outpatient Medications on File Prior to Visit Medication Sig BREO ELLIPTA 200-25 mcg/dose inhaler INHALE 1 PUFF BY MOUTH ONCE DAILY DIRECTED. DO NOT CLICK OPEN UNTIL READY FOR DOSE gabapentin (NEURONTIN) 100 mg capsule Take 1 capsule by mouth daily at bedtime for 30 days. (Patient not taking: Reported on 05/30/2023) enzalutamide (XTANDI) 40 mg tablet Take 4 tablets (160 mg) by mouth once daily. mirabegron (MYRBETRIQ) 25 mg Tb24 Take 1 tablet by mouth once daily. (Patient not taking: Reported on 05/11/2023) cilostazol (PLETAL) 100 mg tablet Take 1 tablet by mouth twice daily. predniSONE (DELTASONE) 5 mg tablet Take 0.5 tablets (2.5mg) by mouth twice daily. Take with food. (Patient not taking: Reported on 05/11/2023) calcium carbonate/vitamin D3 (CALCIUM 600 + D ORAL) Take 2 tablets by mouth once daily. Calcium 600mg+Vitamin D3 800 international units per tablet hydrocortisone (PROCTO-CHEN) 1 % crpe 1 application by RECTAL route twice daily as needed. docusate sodium (COLACE) 100 mg capsule Take 100 mg by mouth once daily as needed for constipation. aspirin, enteric coated (ASPIRIN, ENTERIC COATED) 81 mg EC tablet Take 81 mg by mouth once daily. multivitamin (MULTIPLE VITAMINS ORAL) Take 1 capsule by mouth once daily. albuterol HFA (PROAIR HFA) 90 mcg/actuation inhaler Inhale 2 Puffs as instructed every 4 hours as needed. No current facility-administered medications on file prior to visit. Social History Social History Tobacco Use Smoking status: Every Day Packs/day: 0.75 Years: 47.00 Additional pack years: 0.00 Total pack years: 35.25 Types: Cigarettes Smokeless tobacco: Never Vaping Use Vaping Use: Never used Substance Use Topics Alcohol use: Not Currently Comment: Drug use: No EXAM: BP 136/84 (BP Site: Left Arm, BP Position: Sitting, BP Cuff Size: Regular Adult) Pulse 66 Resp 18 Wt 56.2 kg (123 lb 12.8 oz) BMI 19.10 kg/m General Appearance: Well appearing, alert, in no acute distress, well-hydrated, well nourished. and Thin. Skin: Healed area where biopsies were taken on top of head and left ear. Lungs: Lungs clear to auscultation. No wheezing, rhonchi, rales. Heart: RRR without murmur, gallop, or rubs. No ectopy. Extremities: Right hand, middle finger. Health Maintenance List Abdominal Aortic Aneurysm Screening Never done Spirometry Never done Shingrix Vaccine(1 of 2) Never done Alpha-1 Antitrypsin Deficiency Screening Never done RSV Vaccine(1 - 1-dose 60+ series) Never done Lipid Screening due on 12/24/2019 Lung Cancer Screening due on 07/10/2021 Covid-19 Vaccine(2022- season) due on 05/12/2023 DTaP,Tdap,Td Vaccine(2 - Td or Tdap) due on 12/26/2023 Annual PCP Team Chronic Disease Visit due on 01/14/2024 Diabetes Screening due on 05/11/2026 Colorectal Cancer Screening due on 12/24/2026 Influenza Vaccine Completed Advance Directive Discussion Completed Depression Assessment Completed Hepatitis C Screening Completed Pneumococcal Vaccine: 65+ Completed HPV Vaccine Aged Out Data reviewed None ASSESSMENT/PLAN: 1. Chronic obstructive pulmonary disease, unspecified COPD type (HCC) - ICD9: 496, ICD10: J44.9 (primary diagnosis) - Stable on current regimen - Discussed smoking cessation 2. Internal hemorrhoids - ICD9: 455.0, ICD10: K64.8 - Continue current medication regimen. - HYDROCORTISONE 1 % TOPICAL CREAM WITH PERINEAL APPLICATOR 3. Hyperlipidemia, unspecified hyperlipidemia type - ICD9: 272.4, ICD10: E78.5 - Controlled - Continue current medications - Counseled on healthy diet and regular exercise 4. PAD (peripheral artery disease) (HCC) - ICD9: 443.9, ICD10: I73.9 - Cont f/u with Dr. Corona - Discussed diet and exercise - Discussed smoking cessation 5. Protein-calorie malnutrition, unspecified severity (HCC) - ICD9: 263.9, ICD10: E46 - Discussed continue watching diet 6. Malignant neoplasm metastatic to bone (HCC) - ICD9: 198.5, ICD10: C79.51 - Cont f/u with hem/onc 7. Prostate cancer (HCC) - ICD9: 185, ICD10: C61 - Cont f/u w/medications 8. Diffuse large B-cell lymphoma of intra-abdominal lymph nodes (HCC) - ICD9: 202.83, ICD10: C83.33 - Cont f/u with medications 9. Skin lesion - ICD9: 709.9, ICD10: L98.9 - Stable 10. Locking finger joint - ICD9: 718.94, ICD10: M24.849 - Follow with Ortho prn 11. Sensation of cold in finger - ICD9: 782.9, ICD10: R20.9 12. Tobacco use disorder - ICD9: 305.1, ICD10: F17.200 - Cessation encouraged. - Physiologic and physical aspects of tobacco addiction as well as strategies for quitting were discussed. - Counseling was given focusing on the harmful effects of this addiction especially given the patient's medical condition(s) which will be worsened because of the chemicals in tobacco. 6 mo f/u I agree with the Chief Complaint, ROS, and Past Histories independently gathered by the clinical nursing support worker and the remaining scribed note accurately describes my personal service to the patient. Medical Decision Making: Problems: Moderate: 2+ stable chronic illnesses Risk: Moderate: Drug management Medical Decision Making Level: 4 - Moderate Apollo Melo MD The documentation for this note was completed by Zakia Elam Ma acting as scribe for Apollo Melo MD. July 17, 2023 3:14 PM. Zakia Elam Ma documented in this encounter [facility] 06-29-2023 Miscellaneous Notes OK to refill as ordered Apollo Melo MD Patient last visit with PCP 01/13/23 Follow up appointment scheduled 07/17/23 Zita Faye Ma documented in this encounter [facility] 05-22-[address]Kathleen Corona is only at our location here in [place] on Tuesdays and she does not have any opening for tomorrow, the patient is currently scheduled to see her next week Monday05/30/23. The soonest appointment has anywhere is Monday05/29/23 @ the [facility]. I called and spoke to Alejandro and he stated he wanted to just wait and see her on 05/30/23 here. He said he worked his full 5 hour shift at work today and he thinks he shouldn't haven't any problem waiting until next week Monday to see her here. Beverly Weber Pss PSS: patient has OV with Dr. Corona on 05/30/23. Can we check and see if we can move that appointment up? See note below. Nemo Lacy RN Images from the original note were not included. Dr. Perez spoke with patient on 05/19/23 Tyra Care Coordination FOLLOW-UP NOTE Patient identified by name and date of . YES Spoke to patient Summary: (Reason for follow-up) Right leg pain Concerns: (New Barriers to care) Patient calls to let us know he is continuing to have right leg pain. It can be in his upper right thigh, mid right thigh at times. Last pm, he also had pain in right lower leg, left of the montero bone States last pm, the pain really flared up. He tried cold pack which made it worse and then tried heat and that helped. He is alternating b/w using Tylenol and Ibruprofen and helping but is concerned that he is continuing with pain. He is wondering who he needs to see to evaluate and and what to do to make it better. New Referrals Needed: Will discuss with Dr. Perez Is the patient having any pain? as discussed above Patient verbalized when to seek Medical Attention and an understanding of after- hours phone number and process: Yes Care Coordination Plan: Recommendations Will ask Dr. Perez next steps and call back Maliha Lacy RN May 19, 2023 documented in this encounter [facility] 05-16-2023 Note HNO ID: [id number] Author: Sharda Plaza RT(R) Service: ? Author Type: Technologist Type: Progress Notes Filed: 05/16/2023 10:25 AM Note Text: Radiology Service Progress Note PATIENT NAME: Amie Killian DATE OF SERVICE: May 16, 2023 TIME: 9:58 AM PATIENT IDENTITY VERIFICATION COMPLETED USING TWO (2) IDENTIFIERS: Name and Date of confirmed by patient verbally. FALL SCREENING: Has the patient had 2 falls in the last year or 1 fall with injury or currently using an Ambulatory Assistive Device (Walker, Cane, Wheelchair, Crutches, etc.)? No PATIENT GENDER DATA: Male PATIENT RELEVANT IMPLANT DATA REVIEWED: Not Applicable RADIOLOGY DEPARTMENT: Ultrasound PERIPHERAL IV DATA: Not applicable SIGNED BY: Sharda Plaza RDMS, RVT May 16, 2023 9:58 AM [facility] 05-16-2023 Miscellaneous Notes Pt notified of results. Sandra Main LPN Please call patient and notify that DVT ultrasound was negative for any findings. Patient needs to follow-up with oncology. documented in this encounter [facility] 05-16-2023 History of Presen t illness Narrative Radiology Service Progress Note PATIENT NAME: Amie Killian DATE OF SERVICE: May 16, 2023 TIME: 9:58 AM PATIENT IDENTITY VERIFICATION COMPLETED USING TWO (2) IDENTIFIERS: Name and Date of confirmed by patient verbally. FALL SCREENING: Has the patient had 2 falls in the last year or 1 fall with injury or currently using an Ambulatory Assistive Device (Walker, Cane, Wheelchair, Crutches, etc.)? No PATIENT GENDER DATA: Male PATIENT RELEVANT IMPLANT DATA REVIEWED: Not Applicable RADIOLOGY DEPARTMENT: Ultrasound PERIPHERAL IV DATA: Not applicable SIGNED BY: Sharda Plaza RDMS, RVT May 16, 2023 9:58 AM documented in this encounter [facility] 05-16-2023 History of Presen t illness Narrative Radiology Service Progress Note PATIENT NAME: Amie Killian DATE OF SERVICE: May 16, 2023 TIME: 8:00 AM PATIENT IDENTITY VERIFICATION COMPLETED USING TWO (2) IDENTIFIERS: Name and Date of confirmed by patient verbally. FALL SCREENING: Has the patient had 2 falls in the last year or 1 fall with injury or currently using an Ambulatory Assistive Device (Walker, Cane, Wheelchair, Crutches, etc.)? No PATIENT GENDER DATA: Male PATIENT RELEVANT IMPLANT DATA REVIEWED: Not Applicable RADIOLOGY DEPARTMENT: General X-ray: Exam(s) Completed: Lower Extremity X-Ray(s): Femur, Right PERIPHERAL IV DATA: Not applicable SIGNED BY: RT Abi(R) May 16, 2023 8:00 AM documented in this encounter [facility] 05-16-2023 History of Presen t illness Narrative Images from the original note were not included. Subjective Patient came in with complaints of achy right thigh pain. Patient says its on and off. Patient's been wearing an Rogers bandage for comfort. Patient denies any injury to the area. Patient does have history of prostate cancer. Patient denies any numbness tingling or loss of feeling. The history is provided by the patient. No professor of languages was used. Review of Systems Constitutional: Negative. Skin: Negative. Objective Physical Exam Constitutional: Appearance: Normal appearance. Pulmonary: Effort: Pulmonary effort is normal. Skin: Comments: Patient says he experiences the pain in the area marked above. No discoloration or swelling noted. Neurological: Mental Status: He is alert. PAST MEDICAL HISTORY Diagnosis Date Fistula Lesion of liver 06/10/2021 Non Hodgkin's lymphoma (HCC) PAD (peripheral artery disease) (HCC) Prostate cancer (HCC) 12/2011 PAST SURGICAL HISTORY Procedure Laterality Date ABDOMINAL SURGERY HX APPENDECTOMY HX COLONOSCOPY 12/24/2021 repeat in 5 years COLONOSCOPY FLX DX W/COLLJ SPEC WHEN PFRMD 02/15/2016 Colonoscopy IMPLANT CATH INSERTION (AG) 07/30/2020 IVAD right chest INCISE FINGER TENDON SHEATH Left 08/26/2021 Left middle and ring trigger finger releases PAST SURGICAL HISTORY OF appendectomy PAST SURGICAL HISTORY OF tonsilectomy PROSTATECTOMY, SIMPLE, BENIGN 01/03/2012 prostate removed TONSILLECTOMY HX ALLERGIES Doxycycline MEDICATIONS enzalutamide (XTANDI) 40 mg tablet Take 4 tablets (160 mg) by mouth once daily. cilostazol (PLETAL) 100 mg tablet Take 1 tablet by mouth twice daily. fluticasone-vilanterol (BREO ELLIPTA) 200-25 mcg/dose inhaler Inhale 1 Inhalation as instructed once daily. Inhale one puff once daily. DO NOT CLICK OPEN UNTIL READY FOR DOSE calcium carbonate/vitamin D3 (CALCIUM 600 + D ORAL) Take 2 tablets by mouth once daily. Calcium 600mg+Vitamin D3 800 international units per tablet hydrocortisone (PROCTO-CHEN) 1 % crpe 1 application by RECTAL route twice daily as needed. docusate sodium (COLACE) 100 mg capsule Take 100 mg by mouth once daily as needed for constipation. aspirin, enteric coated (ASPIRIN, ENTERIC COATED) 81 mg EC tablet Take 81 mg by mouth once daily. multivitamin (MULTIPLE VITAMINS ORAL) Take 1 capsule by mouth once daily. albuterol HFA (PROAIR HFA) 90 mcg/actuation inhaler Inhale 2 Puffs as instructed every 4 hours as needed. mirabegron (MYRBETRIQ) 25 mg Tb24 Take 1 tablet by mouth once daily. (Patient not taking: Reported on 05/11/2023) predniSONE (DELTASONE) 5 mg tablet Take 0.5 tablets (2.5mg) by mouth twice daily. Take with food. (Patient not taking: Reported on 05/11/2023) FAMILY HISTORY Problem Relation Age of Onset Heart Father of [place] age 80 Stroke Mother Heart Brother Social History Tobacco Use Smoking status: Every Day Packs/day: 0.75 Years: 47.00 Additional pack years: 0.00 Total pack years: 35.25 Types: Cigarettes Smokeless tobacco: Never Vaping Use Vaping Use: Never used Substance Use Topics Alcohol use: Not Currently Comment: Drug use: No * * * * Physician Interpretation * * * * TITLE: XR FEMUR 2V AP/LAT RT CLINICAL INDICATION: Thigh pain TECHNIQUE: Frontal and lateral radiographs of the right femur COMPARISON: None FINDINGS: No acute fracture or dislocation identified. Scattered sclerotic foci within the visualized pelvic bones and distal right femur compatible with known osseous metastatic disease. Atherosclerotic calcification of the vasculature. Surgical clips in the right pelvis. IMPRESSION IMPRESSION: 1. No radiographic evidence of acute osseous injury. 2. Few scattered sclerotic foci compatible with known osseous metastatic disease Mascara Molder: MATHEUS Transcribe Date/Time: May 16 2023 8:20A IMPRESSION IMPRESSION: Negative study for proximal DVT in the right lower extremity. Negative study for calf DVT in the right lower extremity. Negative study for superficial thrombophlebitis in the imaged segments of the right lower extremity. Mascara Molder: [facility] Transcribe Date/Time: May 16 2023 10:37A Dictated by : NICHO RAJAN MD Was instructed to follow-up with oncology. Patient was okay with this care plan. Dictated by : JEN RONDON MD documented in this encounter [facility] 05-12-2023 Nurse Note Pt denies any jaw pain or dental issues. Assessment remains unchanged since OV 05/11/23 documented in this encounter [facility] 04-28-2023 History of Presen t illness Narrative Patient is here for IVAD port flush/blood draw. IVAD is located in right upper chest. Site cleansed with Chloraprep IVAD accessed with a #20 gauge 3/4 non-coring Gripper needle Flush with 5cc's Normal Saline. Blood Return: Good. 10 cc's blood aspirated and discarded. Blood drawn for CBC and CMP. Flushed with: 20 ml Normal Saline and 5 ml Heparin Lock Flush. Non-coring needle removed. Paper tape applied to puncture site. Site negative for redness, edema or tenderness. Patient tolerated procedure well. Isela Solano RN documented in this encounter [facility] 04-28-2023 Nurse Note Pt here for injection of Lupron. Given IM in left buttocks. Pt tolerated well. Radha Medina LPN documented in this encounter [facility] 03-02-2023 History of Presen t illness Narrative Radiology Service Progress Note PATIENT NAME: Amie Killian DATE OF SERVICE: March 02, 2023 TIME: 3:16 PM PATIENT IDENTITY VERIFICATION COMPLETED USING TWO (2) IDENTIFIERS: Name and Date of confirmed by patient verbally. FALL SCREENING: Has the patient had 2 falls in the last year or 1 fall with injury or currently using an Ambulatory Assistive Device (Walker, Cane, Wheelchair, Crutches, etc.)? No PATIENT GENDER DATA: Male PATIENT RELEVANT IMPLANT DATA REVIEWED: Yes RADIOLOGY DEPARTMENT: CT; Exam(s) Completed: Abdomen/Pelvis PERIPHERAL IV DATA: power port accessed by hemoc SIGNED BY: RT Panfilo(R) March 02, 2023 3:16 PM documented in this encounter [facility] 03-02-2023 History and physical note RADIOLOGY SERVICE PROGRESS NOTE SERVICE DATE: 03/02/2023 SERVICE TIME: 08:05 AM PATIENT IDENTITY VERIFICATION COMPLETED USING TWO (2) STANDARD IDENTIFIERS: Name and Date of confirmed by patient verbally FALL SCREENING: Has the patient had 2 falls in the last year or 1 fall with injury or currently using an Ambulatory Assistive Device (Walker, Cane, Wheelchair, Crutches, etc.)? No PATIENT GENDER DATA: .male ALLERGIES: Reviewed and unchanged MEDICATIONS REVIEWED: No PATIENT RELEVANT IMPLANT DATA REVIEWED: Not Applicable CREATININE: Creatinine Date Value Ref Range Status 03/02/2023 0.82 0.73 - 1.22 mg/dL Final 02/16/2023 0.80 0.73 - 1.22 mg/dL Final 01/27/2023 0.83 0.73 - 1.22 mg/dL Final Estimated Glomerular Filtration Rate Date Value Ref Range Status 03/02/2023 96 >=60 mL/min/1.73m Final Comment: Estimated Glomerular Filtration Rate (eGFR) is calculated using the 2020 CKD-EPI creatinine equation. This equation utilizes serum creatinine, sex, and age as parameters. The creatinine assay has traceable calibration to isotope dilution-mass spectrometry. Refer to KDIGO guidelines for clinical interpretation. In patients with unstable renal function, e.g. those with acute kidney injury, the eGFR may not accurately reflect actual GFR. eGFR- Date Value Ref Range Status 08/30/2021 >60 Final P.O.C.T. RESULTS: POC done: Yes, See Lab Tab March 02, [address] PERFORMED: No IV SITE: Ambulatory: A power injectable port was accessed in the Right side. Blood Return, Flushed easily with normal saline, Good Blood Return Post Injection, Flushed with 20 cc saline followed by Heparin 500 units/5 cc, and No Complications- accessed/ maintained by Oncology department. POST EXAM PIV STATUS: Left in for next appointment PROCEDURE TYPE: NM INJECT: Whole Body Bone Scan. 19.9 mCi Tc99m MDP. No other medications given.. ADMINISTRATION TIME: 08:05 PATIENT DISCHARGED TO: Ambulatory patient, left NM department area. A Diagnostic radioactive procedure has taken place, with no further precautions necessary other than routine body substance precautions. More information regarding radiation safety can be found using this link: [email or web address] SIGNATURE: RT Geno(R) PATIENT NAME: Amie Killian DATE: March 02, 2023 TIME: 08:15 AM PAGER/CONTACT #: documented in this encounter [facility] 01-13-2023 History of Past i llness Narrative Problem Noted Date Diagnosed Date Resolved Date Protein-calorie malnutrition , unspecified severity 01/13/2023 07/17/2023 Elevated PSA 10/20/2011 08/06/2014 documented as of this encounter (statuses as of 07/18/2023) [facility] History of Past illness Narrative* Problem Noted Date Diagnosed Date Resolved Date Protein-calorie malnutrition , unspecified severity 01/13/2023 07/17/2023 Elevated PSA 10/20/2011 08/06/2014 documented as of this encounter (statuses as of 07/21/2023) [facility] History of Past illness Narrative* Problem Noted Date Diagnosed Date Resolved Date Protein-calorie malnutrition , unspecified severity 01/13/2023 07/17/2023 Elevated PSA 10/20/2011 08/06/2014 documented as of this encounter (statuses as of 08/02/2023) [facility] History of Past illness Narrative* Problem Noted Date Diagnosed Date Resolved Date Protein-calorie malnutrition , unspecified severity 01/13/2023 07/17/2023 Elevated PSA 10/20/2011 08/06/2014 documented as of this encounter (statuses as of 08/18/2023) [facility] History of Past illness Narrative* Problem Noted Date Diagnosed Date Resolved Date Protein-calorie malnutrition , unspecified severity 01/13/2023 07/17/2023 Elevated PSA 10/20/2011 08/06/2014 documented as of this encounter (statuses as of 10/27/2023) [facility] History of Past illness Narrative* Problem Noted Date Diagnosed Date Resolved Date Protein-calorie malnutrition , unspecified severity 01/13/2023 07/17/2023 Elevated PSA 10/20/2011 08/06/2014 documented as of this encounter (statuses as of 10/27/2023) [facility] History of Past illness Narrative* Problem Noted Date Diagnosed Date Resolved Date Protein-calorie malnutrition , unspecified severity 01/13/2023 07/17/2023 Elevated PSA 10/20/2011 08/06/2014 documented as of this encounter (statuses as of 11/28/2023) [facility] History of Past illness Narrative* Problem Noted Date Diagnosed Date Resolved Date Protein-calorie malnutrition , unspecified severity 01/13/2023 07/17/2023 Elevated PSA 10/20/2011 08/06/2014 documented as of this encounter (statuses as of 12/15/2023) [facility] Miscellaneous Notes* Telephone Encounter - Erlinda Manuel LPN - 01/13/2023 1:07 PM EDT [facility] Patient asked to have Dermatology referral faxed to Dr Alvaro Vieira at [phone]. Printed office notes, consult, face sheet, insurance card copyand faxed as requested. [facility] Instructions* Patient Instructions* Anita Inman Ma - 01/13/2023 8:47 AM EDT Call [facility] to make your appointment. Referral and info faxed to their office. [address] [phone] [facility] History of Present illness Narrative* Apollo Melo MD - 01/13/2023 8:40 AM EDT Chief Complaint Patient presents with: 6 Month Exam HPI Amie Killian is a 67 year old male who presents here today for 6 month follow up. Has an advanced directive. Pt declined AAA screening, Lung cancer screening, and Spirometry testing. HM: Depression Screening; denies feeling depressed or hopeless. Depression screening tool completedand reviewed. Based on score and interview, patient is not at risk for depression. Screening tool discussed with patient, and I recommended no further intervention at this time Continued smoker, less than 1 ppd. He states at this time he is so old now there is not point in trying to quit. No bowel, Gi, or urinary issues. Has issues with constipation but uses stool softeners and prunes to keep bowels moving. He uses vegetable laxative prn. Wears pads and does pelvic floor exercises dueto urinary retention. Follows with urologist for hx of urinary retention and prostate cancer. Not taking any medications for incontinence, states he used some and it didn't really work. PAD/Lipid: Taking Pletal 100 mg [address]ID[address]. Corona, Vascular. Tries to watch diet, walking and playing golf for exercise. Denies much pain with walking a lot but the legs get fatigued. He doesn't walk when playing golf. No chest pains, dizziness, or SOB. Skin: he has some lesions on the head that doesn't heal, scabs up. He states that they are irritating. Does not seem to be getting bigger. He has been putting neosporin on the lesions. COPD: Feels he is doing well, does get SOB with walking up hill. Uses Albuterol inhaler prn and Breo Ellipta daily. Follows with Hem/onc for diffuse large B-Cell lymphoma of intra-abdominal lymph nodes, lesion of liver and malignant neoplasm of prostate. Was started back on Lupron due to elevated PSA and increasedbone lesions. Past medical history, appointments, medications, allergies reviewed. Previous Medical History PAST MEDICAL HISTORY Diagnosis Date Fistula Lesion of liver 06/10/2021 Non Hodgkin's lymphoma (HCC) PAD (peripheral artery disease) (HCC) Prostate cancer (HCC) 12/2011 Previous Surgical History PAST SURGICAL HISTORY Procedure Laterality Date ABDOMINAL SURGERY HX APPENDECTOMY HX COLONOSCOPY 12/24/2021 repeat in 5 years COLONOSCOPY FLX DX W/COLLJ SPEC WHEN PFRMD 02/15/2016 Colonoscopy IMPLANT CATH INSERTION (AG) 07/30/2020 IVAD right chest INCISE FINGER TENDON SHEATH Left 08/26/2021 Left middle and ring trigger finger releases PAST SURGICAL HISTORY OF appendectomy PAST SURGICAL HISTORY OF tonsilectomy PROSTATECTOMY, SIMPLE, BENIGN 01/03/2012 prostate removed TONSILLECTOMY HX Family History FAMILY HISTORY Problem Relation Age of Onset Heart Father of [place] age 80 Stroke Mother Heart Brother Patient Allergies ALLERGIES Allergen Reactions Doxycycline GI Upset Unsure if he really has SE to this medication Current Medications Current Outpatient Medications on File Prior to Visit Medication Sig enzalutamide (XTANDI) 40 mg tablet Take 4 tablets (160 mg) by mouth once daily. mirabegron (MYRBETRIQ) 25 mg Tb24 Take 1 tablet by mouth once daily. cilostazol (PLETAL) 100 mg tablet Take 1 tablet by mouth twice daily. predniSONE (DELTASONE) 5 mg tablet Take 0.5 tablets (2.5mg) by mouth twice daily. Take with food. fluticasone-vilanterol (BREO ELLIPTA) 200-25 mcg/dose inhaler Inhale 1 Inhalation as instructed once daily. Inhale one puff once daily. DO NOT CLICK OPEN UNTIL READY FOR DOSE calcium carbonate/vitamin D3 (CALCIUM 600 + D ORAL) Take 2 tablets by mouth once daily. Calcium 600mg+Vitamin D3 800 international units per tablet hydrocortisone (PROCTO-CHEN) 1 % crpe 1 application by RECTAL route twice daily as needed. docusate sodium (COLACE) 100 mg capsule Take 100 mg by mouth once daily as needed for constipation. aspirin, enteric coated (ASPIRIN, ENTERIC COATED) 81 mg EC tablet Take 81 mg by mouth once daily. multivitamin (MULTIPLE VITAMINS ORAL) Take 1 capsule by mouth once daily. albuterol HFA (PROAIR HFA) 90 mcg/actuation inhaler Inhale 2 Puffs as instructed every 4 hours as needed. No current facility-administered medications on file prior to visit. Social History Social History Tobacco Use Smoking status: Every Day Packs/day: 0.75 Years: 47.00 Pack years: 35.25 Types: Cigarettes Smokeless tobacco: Never Vaping Use Vaping Use: Never used Substance Use Topics Alcohol use: Not Currently Comment: Drug use: No EXAM: BP 130/80 Pulse 80 Resp 16 Wt 59.1 kg (130 lb 6.4 oz) BMI 20.12 kg/m General Appearance: Well appearing, alert, in no acute distress, well-hydrated, well nourished.. Skin: Lesions on scalp: one on right frontal scalp - 1 cm, irregular, raised/scabbed; one 2-3 mm in middle of forehead, ulcerated; scabbed area in left inner ear tragus; scabbed raised area left religion.. Lungs: Lungs clear to auscultation. No wheezing, rhonchi, rales.. Heart: RRR without murmur, gallop, or rubs. No ectopy. Health Maintenance List ABDOMINAL AORTIC ANEURYSM SCREENING Never done SPIROMETRY Never done SHINGRIX VACCINE(1 of 2) Never done ALPHA-1 ANTITRYPSIN DEFICIENCY SCREENING Never done LIPID SCREEN due on 12/24/2019 LUNG CANCER SCREENING due on 07/10/2021 ADVANCE DIRECTIVE DISCUSSION Never done DEPRESSION ASSESSMENT due on 09/11/2022 ANNUAL PCP TEAM CHRONIC DISEASE VISIT due on 07/15/2023 DTAP,TDAP,TD(2 - Td or Tdap) due on 12/26/2023 DIABETES SCREEN due on 11/24/2025 COLORECTAL CANCER SCREENING due on 12/24/2026 PROSTATE CANCER SCREENING DISCUSSION due on 11/25/2027 INFLUENZA Completed HEPATITIS C SCREENING Completed COVID-19 VACCINE Completed PNEUMOCOCCAL: 65+ Completed Data reviewed None ASSESSMENT/PLAN: 1. Hyperlipidemia, unspecified hyperlipidemia type - ICD9: 272.4, ICD10: E78.5 (primary diagnosis) - good control - Continue current medication. - Encouraged following a low fat, low cholesterol diet. - Discussed the benefits of regular aerobic exercise and weight loss. 2. PAD (peripheral artery disease) (HCC) - ICD9: 443.9, ICD10: I73.9 Continue current medications. Continue with Vascular 3. Tobacco use disorder - ICD9: 305.1, ICD10: F17.200 - Cessation encouraged. - Physiologic and physical aspects of tobacco addiction as well as strategies for quitting were discussed. - Counseling was given focusing on the harmful effects of this addiction especially given the patient's medical condition(s) which will be worsened because of the chemicals in tobacco. 4. Chronic obstructive pulmonary disease, unspecified COPD type (HCC) - ICD9: 496, ICD10: J44.9 Continue current medications. 5. Prostate cancer (HCC) - ICD9: 185, ICD10: C61 Continue with Hem/Onc 6. Diffuse large B-cell lymphoma of intra-abdominal lymph nodes (HCC) - ICD9: 202.83, ICD10: C83.33 Continue with Hem/Onc Continue current medications. 7. Skin lesion - ICD9: 709.9, ICD10: L98.9 Concerns for AK or SCC Consult Derm-referral faxed to [facility] Pt to call and scheduled. Follow up in 6 months with fasting labs prior. I agree with the Chief Complaint, ROS, and Past Histories independently gathered by the clinical nursing support worker and the remaining scribed note accurately describes my personal service to the patient. Medical Decision Making: Problems: Moderate: 2+ stable chronic illnesses and New problem with uncertain prognosis Risk: Moderate: Drug management Medical Decision Making Level: 4 - Moderate Apollo Melo MD The documentation for this note was completed by Anita Inman Ma acting as scribe for Apollo Melo MD. January 13, 2023 8:41 AM. Anita Inman Ma documented in this encounterSt. [facility] Miscellaneous Notes* Telephone Encounter - Maliha Lacy RN - 12/20/2022 4:27 PM EDT Patient received drug today and will start taking Xtandi on 12/21/22. Reviewed dosing. Questions answered. (last Zytiga taken 11/27/22) Reviewed upcoming appointments. Nemo Lacy RN * Telephone Encounter - Maliha Lacy RN - 12/20/2022 4:21 PM EDT ORAL ANTI-CANCER AGENTS EDUCATION patient called today for oral medication education for Xtandi (enzalutamide) for Prostate cancer READINESS TO LEARN Cognitive Ability: Alert and oriented Motivation to Learn: Interested Family Support: High - Very involved in pt care Instruction Provided to: Patient Patient learns best by: Multiple Methods Factors affecting learning: None Physical limitation affecting learning: None MCKINNEY ASSESSMENT: 1.) Verified that patient knows that the oral agents are for cancer and are taken by mouth. Yes 2.) Medication reconciliation completed during visit. Yes 3.) Patient is able to swallow pills. Yes 4.) Patient is able to read the drug label/information. Yes 5.) Patient is able to open the medication bottles and packages. Yes 6.) Has patient taken other pills for cancer? YES, please explain: Zytiga 7.) Is patient experiencing any symptoms that would affect their ability to keep down pills, for example nausea or vomiting? No 8.) Verified that patient understands prescription delivery, benefit investigation and refill process. Yes PATIENT EDUCATION: 1.) Verified that patient attended individualized instruction on chemotherapy taught by a nurse. Yes 2.) Verified that patient received Chemotherapy Safety in the Home handout, ChemoCare Medication Information handout: Xtandi, and [facility] Oral Chemotherapy booklet: Yes, will be mailed out to patient today DRUG-SPECIFIC EDUCATION: 1.) Verified that patient knows the drug name. Yes 2.) Verified patient understands the dose and schedule of oral chemo agent:with water, with or without food. Yes 3.) Verified patient knows what to do if a medication dose is missed. Yes 4.) Verified patient understands where to store the drug. Yes 5.) Verified patient understands potential side effects and how to manage them. Yes Diarrhea, Headache, Neutropenia, Fatigue, Peripheral Edema, Arthalgia, and Hot Flashes Patient denies any side effects from Zytiga 6.)Verified that patient understands handling precautions of oral chemo agent. Yes 7.) Verified that patient understands when and whom to call with questions. Yes 8.) Verified that patient understands where and how to return drug. Yes EVALUATE: Patient was able to demonstrate an understanding of all the above education using the teach-back method. Yes Patient instructed to call us with any questions, concerns, and/or unresolved symptoms. Will continue to follow up with patient and provide reinforcement of teaching topics as needed. Total time spent with patient: 30 minutes Total time spent on encounter: 35 minutes Maliha Lacy RN documented in this encounterSt. [facility] [facility]03-22-[facility] History of Present illness Narrative* Claudia Keating - 11/30/2022 9:[address] [facility] received prescription(s) for Xtandi from Dr. Gagonn's office. Benefits investigation was conducted, indicating that a prior authorization is required by patient's insurance plan with [employer]. Encounter will be updated once prior authorization has been submitted by [facility]. * Bella Louie RN - 11/30/2022 9:[address] [facility] received prescription(s) for Xtandi from Dr. Ernandez's office. PAwas approved with details listed below. Plan Name: [employer] Plan Agent/Mckinney: [id number] Phone/ PA reference number: [id number] Approval Dates: Through 05/29/23 Prescriptions will now be processed through [facility] for determination of next steps. BELLA Louie RN Addendum November 30, 2022 10:28 AM : First copay is high (>$2900) due to the medicare coverage gap and future fills are expected to be ~$700 monthly thereafter. There is no funding available for patients diagnosis at this time. Patient will be referred to [facility]. Note will be update once pt is contacted. Nanette White, PharmD Clinical Pharmacist, Oncology [facility] P: , F: Pool: P [facility] Pool #: [id number] documented in this encounterSt. Mary'[facility]03-21-2023 Miscellaneous Notes* Telephone Encounter - Delmis Piedra Pss - 11/29/2022 9:16 AM EDT Schedule updated * Telephone Encounter - Lexi Renner - 11/28/2022 4:18 PM EDTSumrosa: FLOYD 11/28/22 Follow-up disposition: Return in about 3 months (around 02/28/2023). Check out comments: Continue with leupron and zometa every 3 months.Start xtandi 160 mg.daily.RTO in 3 months with labs and scans just prior to visit documented in this encounterSt. Mary'[facility] [facility]03-20-[facility]23 History of Present illness Narrative* Lisha Ernandez MD - 11/28/2022 6:21 PM EDT Images from the original note were not included. SERVICE DATE: November 28, 2022 CHIEF COMPLAINT: Amie Killian is a 67 year old male returning today for follow up of his castration resistant metastatic prostatic cancer; diffuse large cell non-Hodgkin's lymphoma; Langerhans' cell histiocytosis of the liver INTERVAL HISTORY: Pleasant 67-year-old white gentleman with a history of diffuse large cell lymphoma. This has been in complete remission with no evidence of recurrence after completion of 5 cycles of CHOP Rituxan. He also has liver pathology that is lingering hands histocytosis. Not extensive or present elsewhere therefore has been appropriately monitored without therapeutic intervention. In 2011 underwent radical prostatectomy followed by postop adjuvant radiation because of high risk prostatic cancer. Bone metastasis were subsequently detected and has been started and maintained on Zytiga and prednisone plus Lupron. He tolerates the combination fine. Last supply of Zytiga ended yesterday Diagnostic Studies: Reviewed CURRENT MEDICATIONS: cilostazol (PLETAL) 100 mg tablet Take 1 tablet by mouth twice daily. fluticasone-vilanterol (BREO ELLIPTA) 200-25 mcg/dose inhaler Inhale 1 Inhalation as instructed once daily. Inhale one puff once daily. DO NOT CLICK OPEN UNTIL READY FOR DOSE calcium carbonate/vitamin D3 (CALCIUM 600 + D ORAL) Take 2 tablets by mouth once daily. Calcium 600mg+Vitamin D3 800 international units per tablet hydrocortisone (PROCTO-CHEN) 1 % crpe 1 application by RECTAL route twice daily as needed. docusate sodium (COLACE) 100 mg capsule Take 100 mg by mouth once daily as needed for constipation. aspirin, enteric coated (ASPIRIN, ENTERIC COATED) 81 mg EC tablet Take 81 mg by mouth once daily. multivitamin (MULTIPLE VITAMINS ORAL) Take 1 capsule by mouth once daily. albuterol HFA (PROAIR HFA) 90 mcg/actuation inhaler Inhale 2 Puffs as instructed every 4 hours as needed. mirabegron (MYRBETRIQ) 25 mg Tb24 Take 1 tablet by mouth once daily. predniSONE (DELTASONE) 5 mg tablet Take 0.5 tablets (2.5mg) by mouth twice daily. Take with food. abiraterone (ZYTIGA) 250 mg tablet Take 4 tablets (1000mg) by mouth once daily. Take on an empty stomach, at least 1 hour before or 2 hours after eating. ALLERGIES/INTOLERANCES: ALLERGIES Allergen Reactions Doxycycline GI Upset Unsure if he really has SE to this medication ROS: Generalized fatigue probably related to the treatment but tolerable and not progressive No bone pain or symptoms of cord compression No GI symptoms including nausea or vomiting related to the treatment Rest of review of systems is unremarkable PHYSICAL EXAM: BP 128/84 Pulse 82 Temp 36.3 C (97.3 F) (Temporal) Wt 60.3 kg (133 lb) BMI 20.52 kg/m2 Body mass index is 20.52 kg/m . ECO No abnormalities on physical exam DATA REVIEW: I personally reviewed the patient's data and medical records. PERTINENT LABS: Reviewed PERTINENT IMAGING: Reviewed ASSESSMENT AND Plan Castration resistant metastatic prostatic cancer. Balancing risks versus benefits would continue with Xtandi in place of Zytiga rather than with 3 months or so for the PSA to go up. We will also continue with Lupron but obviously no indication for prednisone Non-Hodgkin's lymphoma with no evidence of recurrence on imaging studies. Recommend continued surveillance with imaging once a year Langerhans histiocytosis detected in the liver. No indication for treatment The patient was able to ask questions and these were answered in detail. Lisha Ernandez MD cc: Sean Melo MD documented in this encounterSt. Mary'[facility]03-17-[facility] Nurse Note* Mariela Finley RN - 11/25/2022 10:11 AM EDT Pt denies any jaw pain or dental issues documented in this [facility]02-24-2023 History of Present illness Narrative* Radha Medina LPN - 11/04/2022 9:17 AM EST documented in this [facility]02-24-2023 Nurse Note* Radha Medina LPN - 11/04/2022 9:05 AM EST Pt here for injection of Lupron. Given IM in right buttocks. Pt tolerated well. aRdha Medina LPN documented in this [facility]01-09-2023 Miscellaneous Notes* Telephone Encounter - Zakia Elam Ma - 09/19/2022 1:42 PM EST See pt message and advise. Last OV; 07/15/22. Zakia Elam Ma documented in this [facility]12-22-2022 History of Present illness Narrative* Paco Landeros RN - 09/01/2022 7:17 AM EST Patient is here for IVAD port flush/blood draw per Nursing Pierre Part protocol. IVAD is located in right upper chest. Site cleansed with Chloraprep IVAD accessed with a #20 gauge 3/4 non-coring Gripper needle Flush with 5cc's Normal Saline. Blood Return: Good. 10 cc's blood aspirated and discarded. Blood drawn for BMP. Flushed with: 20 ml Normal Saline and 5 ml Heparin Lock Flush. Non-coring needle removed. Paper tape applied to puncture site. Site negative for redness, edema or tenderness. Patient tolerated procedure well. documented in this [facility]12-19-2022 History of Present illness Narrative* Sean Rodriguez MD - 08/29/2022 8:35 AM EST PATIENT NAME: Alejandro Killian. CLINIC NO: [id number]. ATTENDING PHYSICIAN: Sean Rodriguez MD. 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 Lupron injection & adjuvant radiation therapy completed 01/07/2013 , COPD, Hepatitis C (completed hepatitis Ctreatment in March 2020) HPI: 67 year old male presenting with upper abdominal pain and jaundice. He was evaluated at [facility] and discovered to have a large periportal, pancreatic mass causing bile duct obstruction.CT-guided biopsy was performed July 03, 2020 and preliminary results indicate high-grade B cell non- Hodgkin's lymphoma. In the interim, he was transferred to [facility] for consideration of ERCP or PTHC to relieve his biliary obstruction. He denies any fevers or chills. However, he has been losing weight and was kept n.p.o for several days. No fevers chills or night sweats. He was placed on high-dose steroidbecause of early obstruction from lymphoma. CT scan of chest abdomen pelvis on 07/10/20 showed a Large central abdominal mass which appears to be invading the liver. Associated vascular encasement and intrahepatic biliary dilatation. Bone marrow biopsy also performed the same day showed no lymphomainvolvement. He had an echocardiogram on 07/11/20 showed Left ventricular systolic function is normal. EF = 57 5% (3D) Normal left ventricular diastolic function. He started induction chemotherapy, R-CHOP dose reduced on 07/14/20 and Neulasta on 07/15/20. He completed chemotherapy for his diffuse large B cell lymphoma and repeat PET scan in November 2020 was negative. He started Lupron injection for metastatic prostate cancer in June 2021. The results of his bonescan and CT scan abdomen pelvis showed sclerotic lesions consistent with metastatic prostate cancer. There was also low density liver lesions. CT guided liver biopsy of a liver lesion on 06/30/2021 was consistent with Langerhans' cell histiocytosis. Previous treatment: R-CHOP x 5 cycles (07/14/2020- 11/03/2020 ) PET/CT negative on 11/17/2020. Current treatment: Lupron 22.5mg every 3 months (began on 06/17/2021) Interim history: He is doing well today. He has no fever, chills or night sweat. He denies fatigue,shortness of breath, early satiety or weight loss. He is feeling well on Zytiga and prednisone. He denies rash or hives or itching. He denies any bone pain. He has occasional stress incontinence. He has occasional hot flashes. No dental issues or jaw pain since he started Zometa. All medications & allergies updated and reviewed by me. REVIEW OF SYSTEMS: CONSTITUTIONAL: No fevers, chills, nightsweats, unintended weight loss HEENT: Denies frequent or severe heaches, nasal congestion/sinus symptoms, problematic allergy problems. EYES: No diplopia or blurry vision. CARDIOVASCULAR: No chest pain, dyspnea, palpitations, orthopnea, PND, ankle edema. PULM: No dyspnea, unexplained cough. GI: No dysphagia/odynophagia, problematic reflux, constipation, diarrhea, changes in stool habits, hematochezia, melena. : No new urinary complaints, including dysuria, gross hematuria or pyuria. NEURO: No new balance problems, peripheral weakness/paresthesias or numbness of concern. MUSC-SKEL: No new joint pain, swelling, or erythema. PSY: No concerns regarding depression, anxiety or panic. INTEGUMENTARY: No new skin changes (rash, new or changing mole, new growth) PHYSICAL EXAMINATION: 67-year-old thin gentleman in no acute distress Performance status 100% BP 144/92 Pulse 74 Temp (Src) 97.1 (Temporal) Wt 135 lb (61.2kg) SpO2 99% HEENT: Head is normocephalic, atraumatic. Sclerae white, conjunctivae pink. PEERL. EOMs are intact.Oropharynx is benign. LYMPHATICS: There is no palpable adenopathy in the neck, supraclavicular region, axillae, or groin. LUNGS: Lungs are clear to percussion and auscultation. HEART: Heart is normal without murmurs, gallops, or rubs. ABDOMEN: Soft and nontender without organomegaly. No masses can be palpated. EXTREMITIES: Are without edema. NEUROLOGIC: Exam is physiologic, DRT's normal. No sensory neuropathy. LABS: Component Latest Ref Rng & Units 08/12/2022 WBC 3.70 - 11.00 k/uL 9.83 RBC 4.20 - 6.00 m/uL 4.30 Hemoglobin 13.0 - 17.0 g/dL 14.0 Hematocrit 39.0 - 51.0 % 39.7 MCV 80.0 - 100.0 fL 92.3 MCH 26.0 - 34.0 pg 32.6 MCHC 30.5 - 36.0 g/dL 35.3 RDW-CV 11.5 - 15.0 % 12.7 Platelet Count 150 - 400 k/uL 246 MPV 9.0 - 12.7 fL 9.8 Neut% % 62.1 Abs Neut (ANC) 1.45 - 7.50 k/uL 6.10 Lymph% % 24.4 Abs Lymph 1.00 - 4.00 k/uL 2.40 [place]% % 7.2 Abs [place] <0.87 k/uL 0.71 Eosin% % 5.0 Abs Eosin <0.46 k/uL 0.49 (H) Baso% % 1.1 Abs Baso <0.11 k/uL 0.11 (H) Immature Gran % % 0.2 IMMATURE GRANS (ABS) <0.10 k/uL <0.03 NRBC /100 WBC 0.0 Absolute nRBC <0.01 k/uL <0.01 DTYPE Auto Component Latest Ref Rng & Units 08/12/2022 Protein, Total 6.3 - 8.0 g/dL 6.8 Albumin 3.9 - 4.9 g/dL 4.5 Calcium 8.5 - 10.2 mg/dL 9.4 Bilirubin, Total 0.2 - 1.3 mg/dL 0.2 Alkaline Phosphatase 38 - 113 U/L 73 AST 14 - 40 U/L 19 ALT 10 - 54 U/L 13 Glucose 74 - 99 mg/dL 103 (H) BUN 9 - 24 mg/dL 10 Creatinine 0.73 - 1.22 mg/dL 0.80 Sodium 136 - 144 mmol/L 141 Potassium 3.7 - 5.1 mmol/L 3.5 (L) Chloride 97 - 105 mmol/L 104 CO2 22 - 30 mmol/L 26 Anion Gap 9 - 18 mmol/L 11 eGFR >=60 mL/min/1.73m 96 LD 135 - 225 U/L 212 PSA <2.60 ng/mL 0.82 CT abdomen pelvis: IMPRESSION: 1. Stable subcentimeter hypodense hepatic lesions. No new or enlarging hepatic lesions. 2. No suspect lymphadenopathy in the abdomen or pelvis. Spleen normal in size. 3. Stable CT appearance of sclerotic osseous metastatic disease. 4. Questionable mural thickening of the duodenum versus related to incomplete distention. Clinical correlation for possible symptomatology of duodenitis is requested. 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 1) diffuse large B-cell lymphoma -complete remission by PET scan negative after 5 cycles of chemotherapy- R-CHOP. -CR, No evidence of recurrent lymphoma. Plan: -Continue observation -Repeat CT scans abdomen pelvis in 6 months 2) hormone refractory prostate cancer ([place] 9) & status post radical prostatectomy & adjuvant external beam radiation therapy; with extensive bone metastasis. -Sclerotic changes increase in size noted on CT scan and bone scan findings are consistent with metastases -Tolerating Lupron with minimal side-effects. -Stress incontinent from radical prostatectomy -PSA is decreasing Plan: -Continue Lupron 22.5mg IM every 3 - Zytiga 1000mg once daily and prednisone 2.5 mg twice daily (if he cannot afford Zytiga without licensed loan officer assistant, then stop Zytiga / prednisone and repeat PSA in 3 months). If there is PSA progression; then add Casodex or enzalutamide. - Zometa 4 mg IV every 3 months because of bone metastasis and long-term endocrine therapy and prednisone. -Follow-up with PCP or urology for urinary incontinence -Repeat CBC, CMP, PSA & LDH OV in 3 month. 3) Langerhans' cell histiocytosis (liver lesion) -Probably benign; liver functions remain normal. No skin lesions or hives -Lesion is stable on CT scan Plan: -Continue observation & repeat CT scan in 6 months I spent 30 minutes in the visit, with more than 50% of the total [id number] time of the visit in counseling / coordination of care. Portions of this documentation were copied and pasted from previous office visit notes in order to provide a cohesive continuity of the history. The note has been reviewed and edited and updated as necessary. Sean Rodriguez MD Cc: Dr. Apollo Melo documented in this encounterSt. [facility]12[facility] History of Present illness Narrative* Olivia Hook RT(R) - 08/16/2022 9:00 AM EST Radiology Service Progress Note PATIENT NAME: Amie Killian DATE OF SERVICE: August 16, 2022 TIME: 1:03 PM PATIENT IDENTITY VERIFICATION COMPLETED USING TWO (2) IDENTIFIERS: Name and Date of confirmedby patient verbally. FALL SCREENING: Has the patient had 2 falls in the last year or 1 fall with injury or currently using an Ambulatory Assistive Device (Walker, Cane, Wheelchair, Crutches, etc.)? No PATIENT GENDER DATA: Male PATIENT RELEVANT IMPLANT DATA REVIEWED: Yes RADIOLOGY DEPARTMENT: CT; Exam(s) Completed: Abdomen/Pelvis PERIPHERAL IV DATA: power port accessed by [employer] SIGNED BY: RT Panfilo(R) August 16, 2022 1:03 PM documented in this encounterSt. Mary'[facility]12[facility] History of Present illness Narrative* Liv Chavez RN - 08/16/2022 8:51 AM EST Blood return verified. Gripper hooked to auto-injector. Ct completed. Line flushed with 20cc NSS and 5cc Heparin. Gripper D/C'd. Light dressing applied. Pt tolerated procedure well. No C/O's. Site without complication noted. Liv Chavez RN documented in this encounterSt. Mary[facility]12-[facility]-2022 Miscellaneous Notes* Telephone Encounter - Sean Rodriguez MD - 08/11/2022 3:09 PM EST Patient's request for medication is as follows Requested Prescriptions Signed Prescriptions Disp Refills predniSONE (DELTASONE) 5 mg tablet 30 tablet 2 Sig: Take 0.5 tablets (2.5mg) by mouth twice daily. Take with food. Authorizing Provider: SEAN RODRIGUEZ Order entered - please phone pharmacy and notify patient. Sean Rodriguez MD * Telephone Encounter - Nicolasa Angelo Randle - 08/11/2022 2:29 PM EST Patient has been identified by name and date of : Yes Last office visit in this department: 07/31/2013 RX INSTRUCTIONS: Patient aware RX will be sent to pharmacy. No need to notify patient. Patient phones requesting refills as follows: Requested Prescriptions Pending Prescriptions Disp Refills predniSONE (DELTASONE) 5 mg tablet 30 tablet 2 Sig: Take 0.5 tablets (2.5mg) by mouth twice daily. Take with food. Please review and advise. Nicolasa Randle documented in this encounterSt. Mary'[facility]11[facility] History of Present illness Narrative* Apollo Melo MD - 07/15/2022 8:40 AM EDT Chief Complaint Follow up HPI Amie Killian is a 67 year old male who presents here today for 6 month follow up. Still smoking. Has issues with constipation, uses stool softeners and prunes to keep bowel moving. Hx of urinary retention and prostate cancer. Had prostate removed and had radiation. Wears pads and does pelvic floor exercise. Follows with Urologist. Follows with Hem/onc Dr. Rodriguez for diffuse large B-Cell lymphoma of intra- abdominal lymph nodes, lesion of liver and malignant neoplasm of prostate. Was started back on Lupron due to elevated PSA and increased bone lesions. COPD: Feels the breathing is controlled other than some SOB with walking up hills. Using Breo Ellipta daily and PRN albuterol inhaler. PAD/Lipid: Follows with Dr. Corona, Vascular. Is on Pletal 100 mg BID. Tries to watch diet and walksfor exercise, also plays golf. No chest pains, dizziness, or SOB. Skin lesions on scalp and right cheek. Get scabbed, then come off, but comesback. Have been presentfor about a year, not changing or growing. Past medical history, appointments, medications, allergies reviewed. Previous Medical History PAST MEDICAL HISTORY Diagnosis Date Fistula Lesion of liver 06/10/2021 Non Hodgkin's lymphoma (HCC) PAD (peripheral artery disease) (HCC) Prostate cancer (HCC) 12/2011 Previous Surgical History PAST SURGICAL HISTORY Procedure Laterality Date ABDOMINAL SURGERY HX APPENDECTOMY HX COLONOSCOPY 12/24/2021 repeat in 5 years COLONOSCOPY FLX DX W/COLLJ SPEC WHEN PFRMD 02/15/2016 Colonoscopy IMPLANT CATH INSERTION (AG) 07/30/2020 IVAD right chest INCISE FINGER TENDON SHEATH Left 08/26/2021 Left middle and ring trigger finger releases PAST SURGICAL HISTORY OF appendectomy PAST SURGICAL HISTORY OF tonsilectomy PROSTATECTOMY, SIMPLE, BENIGN 01/03/2012 prostate removed TONSILLECTOMY HX Family History FAMILY HISTORY Problem Relation Age of Onset Heart Father of [place] age 80 Stroke Mother Heart Brother Patient Allergies ALLERGIES Allergen Reactions Doxycycline GI Upset Unsure if he really has SE to this medication Current Medications Current Outpatient Medications on File Prior to Visit Medication Sig fluticasone-vilanterol (BREO ELLIPTA) 200-25 mcg/dose inhaler Inhale 1 Inhalation as instructed once daily. Inhale one puff once daily. DO NOT CLICK OPEN UNTIL READY FOR DOSE calcium carbonate/vitamin D3 (CALCIUM 600 + D ORAL) Take 2 tablets by mouth once daily. Calcium 600mg+Vitamin D3 800 international units per tablet predniSONE (DELTASONE) 5 mg tablet Take 0.5 tablets (2.5mg) by mouth twice daily. Take with food. abiraterone (ZYTIGA) 250 mg tablet Take 4 tablets (1000mg) by mouth once daily. Take on an empty stomach, at least 1 hour before or 2 hours after eating. tolterodine ER (DETROL LA) 4 mg 24 hr capsule Take 1 capsule by mouth once daily. (Patient not taking: Reported on 03/28/2022 ) hydrocortisone (PROCTO-CHEN) 1 % crpe 1 application by RECTAL route twice daily as needed. cilostazol (PLETAL) 100 mg tablet Take 1 tablet by mouth twice daily. docusate sodium (COLACE) 100 mg capsule Take 100 mg by mouth once daily as needed for constipation. cholecalciferol, vitamin D3, (VITAMIN D3 ORAL) Take 1 capsule by mouth twice daily. (Patient not taking: Reported on 03/28/2022 ) aspirin, enteric coated (ASPIRIN, ENTERIC COATED) 81 mg EC tablet Take 81 mg by mouth once daily. multivitamin (MULTIPLE VITAMINS ORAL) Take 1 capsule by mouth once daily. albuterol HFA (PROAIR HFA) 90 mcg/actuation inhaler Inhale 2 Puffs as instructed every 4 hours as needed. No current facility-administered medications on file prior to visit. Social History Social History Tobacco Use Smoking status: Every Day Packs/day: 0.75 Years: 47.00 Pack years: 35.25 Types: Cigarettes Smokeless tobacco: Never Vaping Use Vaping Use: Never used Substance Use Topics Alcohol use: Not Currently Comment: Drug use: No EXAM: There were no vitals taken for this visit. General Appearance: Well appearing, alert, in no acute distress, well-hydrated, well nourished.. Skin: 1 cm scabbed lesions right religion, smaller scabbed area right lateral cheek. Lungs: Lungs clear to auscultation. No wheezing, rhonchi, rales.. Heart: RRR without murmur, gallop, or rubs. No ectopy. Health Maintenance List ABDOMINAL AORTIC ANEURYSM SCREENING Never done SPIROMETRY Never done SHINGRIX VACCINE(1 of 2) Never done ALPHA-1 ANTITRYPSIN DEFICIENCY SCREENING Never done LIPID SCREEN due on 12/24/2019 PNEUMOCOCCAL: 64+(3 - PCV) due on 05/08/2021 LUNG CANCER SCREENING due on 07/10/2021 ADVANCE DIRECTIVE DISCUSSION Never done DEPRESSION ASSESSMENT Never done ANNUAL PCP TEAM CHRONIC DISEASE VISIT due on 01/11/2023 DTAP,TDAP,TD(2 - Td or Tdap) due on 12/26/2023 DIABETES SCREEN due on 06/28/2025 COLORECTAL CANCER SCREENING due on 12/24/2026 PROSTATE CANCER SCREENING DISCUSSION due on 06/28/2027 INFLUENZA Completed HEPATITIS C SCREENING Completed COVID-19 VACCINE Completed Data reviewed Infusion Center on 06/28/2022 Component Date Value WBC 06/28/2022 11.46 (A) RBC 06/28/2022 4.42 Hemoglobin 06/28/2022 14.4 Hematocrit 06/28/2022 41.0 MCV 06/28/2022 92.8 MCH 06/28/2022 32.6 MCHC 06/28/2022 35.1 RDW-CV 06/28/2022 13.3 Platelet Count 06/28/2022 241 MPV 06/28/2022 10.4 Neut% 06/28/2022 70.5 Abs Neut 06/28/2022 8.07 (A) Lymph% 06/28/2022 19.0 Abs Lymph 06/28/2022 2.18 [place]% 06/28/2022 6.4 Abs [place] 06/28/2022 0.73 Eosin% 06/28/2022 3.1 Abs Eosin 06/28/2022 0.36 Baso% 06/28/2022 0.7 Abs Baso 06/28/2022 0.08 Immature Gran % 06/28/2022 0.3 Abs Immature Gran 06/28/2022 0.04 NRBC 06/28/2022 0.0 Absolute nRBC 06/28/2022 <0.01 Diff Type 06/28/2022 Auto Protein, Total 06/28/2022 6.8 Albumin 06/28/2022 4.7 Calcium, Total 06/28/2022 9.8 Bilirubin, Total 06/28/2022 0.4 Alkaline Phosphatase 06/28/2022 86 AST 06/28/2022 12 (A) ALT 06/28/2022 8 (A) Glucose 06/28/2022 98 BUN 06/28/2022 9 Creatinine 06/28/2022 0.81 Sodium 06/28/2022 139 Potassium 06/28/2022 3.6 (A) Chloride 06/28/2022 102 CO2 06/28/2022 26 Anion Gap 06/28/2022 11 Estimated Glomerular Steve* 06/28/2022 96 PSA 06/28/2022 1.23 LD 06/28/2022 213 Infusion Center on 06/10/2022 Component Date Value Glucose 06/10/2022 85 BUN 06/10/2022 11 Creatinine 06/10/2022 0.74 Sodium 06/10/2022 141 Potassium 06/10/2022 3.7 Chloride 06/10/2022 108 (A) CO2 06/10/2022 24 Anion Gap 06/10/2022 9 Calcium, Total 06/10/2022 8.5 Estimated Glomerular Steve* 06/10/2022 99 Infusion Center on 05/20/2022 Component Date Value WBC 05/20/2022 10.44 RBC 05/20/2022 4.41 Hemoglobin 05/20/2022 14.2 Hematocrit 05/20/2022 40.9 MCV 05/20/2022 92.7 MCH 05/20/2022 32.2 MCHC 05/20/2022 34.7 RDW-CV 05/20/2022 13.5 Platelet Count 05/20/2022 228 MPV 05/20/2022 9.9 Neut% 05/20/2022 73.6 Abs Neut 05/20/2022 7.69 (A) Lymph% 05/20/2022 16.2 Abs Lymph 05/20/2022 1.69 [place]% 05/20/2022 5.2 Abs [place] 05/20/2022 0.54 Eosin% 05/20/2022 3.6 Abs Eosin 05/20/2022 0.38 Baso% 05/20/2022 0.9 Abs Baso 05/20/2022 0.09 Immature Gran % 05/20/2022 0.5 Abs Immature Gran 05/20/2022 0.05 NRBC 05/20/2022 0.0 Absolute nRBC 05/20/2022 <0.01 Diff Type 05/20/2022 Auto Protein, Total 05/20/2022 6.7 Albumin 05/20/2022 4.4 Calcium, Total 05/20/2022 9.3 Bilirubin, Total 05/20/2022 0.4 Alkaline Phosphatase 05/20/2022 81 AST 05/20/2022 15 ALT 05/20/2022 11 Glucose 05/20/2022 117 (A) BUN 05/20/2022 12 Creatinine 05/20/2022 0.89 Sodium 05/20/2022 140 Potassium 05/20/2022 3.4 (A) Chloride 05/20/2022 104 CO2 05/20/2022 26 Anion Gap 05/20/2022 10 Estimated Glomerular Steve* 05/20/2022 93 LD 05/20/2022 208 PSA 05/20/2022 1.58 ASSESSMENT/PLAN: 1. Chronic obstructive pulmonary disease, unspecified COPD type (HCC) - ICD9: 496, ICD10: J44.9 (primary diagnosis) Stable Continue current medications. 2. Langerhans cell histiocytoses (HCC) - ICD9: 277.89, ICD10: C96.6 3. Diffuse large B-cell lymphoma of intra-abdominal lymph nodes (HCC) - ICD9: 202.83, ICD10: C83.33 4. Prostate cancer (HCC) - ICD9: 185, ICD10: C61 5. PAD (peripheral artery disease) (HCC) - ICD9: 443.9, ICD10: I73.9 Continue current medications. 6. Hyperlipidemia, unspecified hyperlipidemia type - ICD9: 272.4, ICD10: E78.5 7. Tobacco use disorder - ICD9: 305.1, ICD10: F17.200 Encouraged to quit 8. Skin lesion - ICD9: 709.9, ICD10: L98.9 Monitor for now; consider removal if changing or growing Follow up in 6 months Medical Decision Making: Problems: Moderate: 2+ stable chronic illnesses Risk: Moderate: Drug management Medical Decision Making Level: 4 - Moderate Apollo Melo MD documented in this encounterSt[facility] Miscellaneous Notes* Telephone Encounter - Chavez Bernal APRN.CNP - 07/04/2022 10:19 AM EDT The following approved medication requests have been transmitted electronically. Requested Prescriptions Pending Prescriptions Disp Refills fluticasone-vilanterol (BREO ELLIPTA) 200-25 mcg/dose inhaler 1 Each 11 Sig: Inhale 1 Inhalation as instructed once daily. Inhale one puff once daily. DO NOT CLICK OPEN UNTIL READY FOR DOSE Chavez Bernal APRN.CNP * Telephone Encounter - Kyleigh Nicholson MA - 07/04/2022 8:56 AM EDT RX INSTRUCTIONS: Patient aware RX will be sent to pharmacy. No need to notify patient. Last OV: 01/11/22 with PCP Last refill: 07/13/21 With 1 each and 11 refills Follow up: 07/15/22-6 month f/u with PCP Kyleigh Nicholson MA documented in this encounterSt. [facility] [place] [facility] History of Present illness Narrative* Sean Rodriguez MD - 06/28/2022 9:51 AM EDT PATIENT NAME: Alejandro Killian. CLINIC NO: [id number]. ATTENDING PHYSICIAN: Sean Rodriguez MD. 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 Lupron injection & adjuvant radiation therapy completed 01/07/2013 , COPD, Hepatitis C (completed hepatitis Ctreatment in March 2020) HPI: 67 year old male presenting with upper abdominal pain and jaundice. He was evaluated at [facility] and discovered to have a large periportal, pancreatic mass causing bile duct obstruction.CT-guided biopsy was performed July 03, 2020 and preliminary results indicate high-grade B cell non- Hodgkin's lymphoma. In the interim, he was transferred to [facility] for consideration of ERCP or PTHC to relieve his biliary obstruction. He denies any fevers or chills. However, he has been losing weight and was kept n.p.o for several days. No fevers chills or night sweats. He was placed on high-dose steroidbecause of early obstruction from lymphoma. CT scan of chest abdomen pelvis on 07/10/20 showed a Large central abdominal mass which appears to be invading the liver. Associated vascular encasement and intrahepatic biliary dilatation. Bone marrow biopsy also performed the same day showed no lymphomainvolvement. He had an echocardiogram on 07/11/20 showed Left ventricular systolic function is normal. EF = 57 5% (3D) Normal left ventricular diastolic function. He started induction chemotherapy, R-CHOP dose reduced on 07/14/20 and Neulasta on 07/15/20. He was discharged home yesterday. He started Lupron injection for metastatic prostate cancer. The results of his bone scan and CT scan abdomen pelvis showed sclerotic lesions consistent with metastatic prostate cancer. There was alsolow density liver lesions. CT guided liver biopsy of a liver lesion that was consistent with Langerhans' cell histiocytosis. Previous treatment: R-CHOP x 5 cycles (07/14/2020- 11/03/2020 ) PET/CT negative on 11/17/2020. Current treatment: Lupron 22.5mg every 3 months (began on 06/17/2021) Interim history: He is doing well today. He has no fever, chills or night sweat. He denies fatigue,shortness of breath, early satiety or weight loss. He started Zytiga and prednisone for HRPC. He denies rash or hives or itching. He denies any bone pain. He denies urinary symptoms since he started Lupron injection. He has occasional hot flashes. No dental issues or jaw pain since he started Zometa. All medications & allergies updated and reviewed by me. REVIEW OF SYSTEMS: CONSTITUTIONAL: No fevers, chills, nightsweats, unintended weight loss HEENT: Denies frequent or severe heaches, nasal congestion/sinus symptoms, problematic allergy problems. EYES: No diplopia or blurry vision. CARDIOVASCULAR: No chest pain, dyspnea, palpitations, orthopnea, PND, ankle edema. PULM: No dyspnea, unexplained cough. GI: No dysphagia/odynophagia, problematic reflux, constipation, diarrhea, changes in stool habits, hematochezia, melena. : No new urinary complaints, including dysuria, gross hematuria or pyuria. NEURO: No new balance problems, peripheral weakness/paresthesias or numbness of concern. MUSC-SKEL: No new joint pain, swelling, or erythema. PSY: No concerns regarding depression, anxiety or panic. INTEGUMENTARY: No new skin changes (rash, new or changing mole, new growth) PHYSICAL EXAMINATION: 67-year-old thin gentleman in no acute distress Performance status 100% BP 118/80 Pulse 82 Temp (Src) 97.4 (Temporal) Wt 135 lb 8 oz (61.5kg) HEENT: Head is normocephalic, atraumatic. Sclerae white, conjunctivae pink. PEERL. EOMs are intact.Oropharynx is benign. LYMPHATICS: There is no palpable adenopathy in the neck, supraclavicular region, axillae, or groin. LUNGS: Lungs are clear to percussion and auscultation. HEART: Heart is normal without murmurs, gallops, or rubs. ABDOMEN: Soft and nontender without organomegaly. No masses can be palpated. EXTREMITIES: Are without edema. NEUROLOGIC: Exam is physiologic, DRT's normal. No sensory neuropathy. LABS: Component Latest Ref Rng & Units 06/28/2022 WBC 3.70 - 11.00 k/uL 11.46 (H) RBC 4.20 - 6.00 m/uL 4.42 Hemoglobin 13.0 - 17.0 g/dL 14.4 Hematocrit 39.0 - 51.0 % 41.0 MCV 80.0 - 100.0 fL 92.8 MCH 26.0 - 34.0 pg 32.6 MCHC 30.5 - 36.0 g/dL 35.1 RDW-CV 11.5 - 15.0 % 13.3 Platelet Count 150 - 400 k/uL 241 MPV 9.0 - 12.7 fL 10.4 Neut% % 70.5 Abs Neut (ANC) 1.45 - 7.50 k/uL 8.07 (H) Lymph% % 19.0 Abs Lymph 1.00 - 4.00 k/uL 2.18 [place]% % 6.4 Abs [place] <0.87 k/uL 0.73 Eosin% % 3.1 Abs Eosin <0.46 k/uL 0.36 Baso% % 0.7 Abs Baso <0.11 k/uL 0.08 Immature Gran % % 0.3 IMMATURE GRANS (ABS) <0.10 k/uL 0.04 NRBC /100 WBC 0.0 Absolute nRBC <0.01 k/uL <0.01 DTYPE Auto Component Latest Ref Rng & Units 06/28/2022 Protein, Total 6.3 - 8.0 g/dL 6.8 Albumin 3.9 - 4.9 g/dL 4.7 Calcium 8.5 - 10.2 mg/dL 9.8 Bilirubin, Total 0.2 - 1.3 mg/dL 0.4 Alkaline Phosphatase 38 - 113 U/L 86 AST 14 - 40 U/L 12 (L) ALT 10 - 54 U/L 8 (L) Glucose 74 - 99 mg/dL 98 BUN 9 - 24 mg/dL 9 Creatinine 0.73 - 1.22 mg/dL 0.81 Sodium 136 - 144 mmol/L 139 Potassium 3.7 - 5.1 mmol/L 3.6 (L) Chloride 97 - 105 mmol/L 102 CO2 22 - 30 mmol/L 26 Anion Gap 9 - 18 mmol/L 11 eGFR >=60 mL/min/1.73m 96 PSA <2.60 ng/mL 1.23 LD 135 - 225 U/L 213 ASSESSMENT/PLAN: 65-year-old gentleman with a 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 1) diffuse large B-cell lymphoma -complete remission by PET scan after 5 cycles of chemotherapy- R-CHOP. -CR, No evidence of recurrent lymphoma. Plan: -Continue observation -Repeat CT scans abdomen pelvis in August. 2) hormone refractory prostate cancer ([place] 9) & status post radical prostatectomy & adjuvant external beam radiation therapy; with bone metastasis. -Sclerotic changes increase in size noted on CT scan and bone scan findings are consistent with progression of bone metastases -Tolerating Lupron with minimal side-effects. -PSA increasing with evidence of progression disease on imaging plan: -Continue Lupron 22.5mg IM every 3 - Zytiga 1000mg once daily and prednisone 2.5 mg twice daily - Zometa 4 mg IV every 3 months because of bone metastasis and long-term endocrine therapy and prednisone. -Repeat CBC, CMP, PSA & LDH OV in 3 month. 3) Langerhans' cell histiocytosis (liver lesion) -Probably benign; liver functions remain normal. No skin lesions or hives -Regression on CT abdomen pelvis compared to MRI liver in August 2021. plan: -Continue observation & repeat CT scan in August I spent 30 minutes in the visit, with more than 50% of the total [id number] time of the visit in counseling / coordination of care. Portions of this documentation were copied and pasted from previous office visit notes in order to provide a cohesive continuity of the history. The note has been reviewed and edited and updated as necessary. Sean Rodriguez MD Cc: Dr. Apollo Melo documented in this encounterSt. [facility]09[facility] Miscellaneous Notes* Telephone Encounter - Yolanda Lebron Pss - 06/02/2022 8:20 AM EDT Patient returned office call declining lab draw. Stating he feels this a side affect of medication he is taking. Patient will be in on 06/10 for a Zometa treatment * Telephone Encounter - Dinorah Bui LPN - 06/01/2022 8:23 AM EDT Left detailed message on identified voicemail concerning low potassium results and the need for further lab work. Also sent information to pt. Via my chart. Dinorah Bui LPN * Telephone Encounter - Dustin Shah DO - 06/01/2022 3:16 AM EDT His potassium was a little low on recent labs. Ask him to come in for a BMP to see if this is a persistent finding or just a one time erroneous value. Dustin Shah DO documented in this encounterSt. [facility] [facility]09-[facility] History of Present illness Narrative* Paco Landeros RN - 05/20/2022 7:45 AM EDT Patient is here for IVAD port flush/blood draw per Nursing Pierre Part protocol. IVAD is located in right upper chest. Site cleansed with Chloraprep IVAD accessed with a #20 gauge 3/4 non-coring Gripper needle Flush with 5cc's Normal Saline. Blood Return: Good. 10 cc's blood aspirated and discarded. Blood drawn for CBC and BMP. Flushed with: 20 ml Normal Saline and 5 ml Heparin Lock Flush. Non-coring needle removed. Paper tape applied to puncture site. Site negative for redness, edema or tenderness. Patient tolerated procedure well. documented in this encounterSt. Mary'[facility] [facility]08-24-2022 Miscellaneous Notes* Telephone Encounter - Zita Faye Ma - 05/04/2022 8:57 AM EDT Images from the original note were not included. PA approved, patient was sent [employer] message. Zita Faye Ma * Telephone Encounter - Zita Faye Ma - 05/03/2022 2:55 PM EDT Prior Authorization has been completed online at [employer] for Nelia Martinez, will await response. [id number] Please keep encounter open until final decision has been received and documented from insurance company. Zita Faye MA documented in this encounterSt. Mary'[facility]07-29-2022 Miscellaneous Notes* Telephone Encounter - Mona King RN - 04/08/2022 11:39 AM EDT [facility]AL ANTI-CANCER AGENTS FOLLOW-UP PHONE CALL/VISIT Patient identified by name and date of . YES Patient is on cycle 1, week 2, day 9 of Abiraterone (Zytiga) for Prostate Cancer. SYMPTOM ASSESSMENT Headache: No Visual Changes: No Dizziness: No Do you have any periods of confusion? No Mood changes: No Mouth or throat pain: No Appetite: no changes in appetite, appetite good Taste changes: No Nausea: No Vomiting: No Heartburn: No. Weight gain/loss: No Episodes of palpitations/chest discomfort/pressure/pain No Shortness of breath: No Cough: No Diarrhea: no Constipation: no Bladder/Urinary Changes: None Pain: No=0 (pain 0 on a scale of 0-10). Fever: No Chills: No Cold sensitivity: No Numbness/weakness: No Edema: No Skin changes: No Itching: No Yellowing of skin or eyes: No Musculoskeletal/joint changes/issues No Bleeding issues: No Activity Level: normal baseline, good Do you need to take naps? No Per patient nothing has changed from his normal baseline, patient has no symptom concerns today. This nurse verified medication instructions and patient verbalized that he is taking the medication correctly. No further needs identified at this time. Does the patient need interventions or same day appointment:No ADDITIONAL FOLLOW UP: 1. The next outreach call is due on: TBD and was scheduled patient instructed to call our office with any questions/concerns. 2. The following lab tests are due: CBC/CMP/LDH/PSA 05/20/22 3. Verified patient is aware of next appointment in the cancer center: Yes. 4. Verified patient verbalized how to correctly refill the oral agent prescription. Yes 5. Does the patient have any financial difficulties affording this medication? No 6. Patient verbalizes understanding of when to seek Medical Attention? YES 7. Patient verbalizes understanding of after-hours and weekend phone number? YES Patient verbalized importance of medication compliance in taking the oral agent as prescribed. Patient instructed to call if unable to comply. Mona King RN * Telephone Encounter - Maliha Lacy RN - 04/08/2022 10:40 AM EDT ORAL ANTI-CANCER AGENTS FOLLOW-UP PHONE CALL/VISIT Call to patient, no answer, message left to call me back and phone/contact number provided. Maliha Lacy RN documented in this encounterSt. Mary'[facility] [facility]07-25-[facility] History of Present illness Narrative* Sean Rodriguez MD - 04/04/2022 10:13 AM EDT PATIENT NAME: Alejandro Killian. CLINIC NO: [id number]. ATTENDING PHYSICIAN: Sean Rodriguez MD. DATE OF SERVICE:04/04/2022 DIAGNOSIS: 1) Stage II, diffuse large B-cell lymphoma in CR 2) Hormone- na ve metastatic prostate cancer (M1) with bone metastasis 3) Langerhans' cell histiocytosis in the liver. Pertinent medical history: Prostate Cancer,status- post robotic radical prostatectomy. Lupron injection & adjuvant radiation therapy completed 01/07/2013 , COPD, Hepatitis C (completed hepatitis Ctreatment in March 2020) HPI: 66 year old male presenting with upper abdominal pain and jaundice. He was evaluated at [facility] and discovered to have a large periportal, pancreatic mass causing bile duct obstruction.CT-guided biopsy was performed July 03, 2020 and preliminary results indicate high-grade B cell non- Hodgkin's lymphoma. In the interim, he was transferred to [facility] for consideration of ERCP or PTHC to relieve his biliary obstruction. He denies any fevers or chills. However, he has been losing weight and was kept n.p.o for several days. No fevers chills or night sweats. He was placed on high-dose steroidbecause of early obstruction from lymphoma. CT scan of chest abdomen pelvis on 07/10/20 showed a Large central abdominal mass which appears to be invading the liver. Associated vascular encasement and intrahepatic biliary dilatation. Bone marrow biopsy also performed the same day showed no lymphomainvolvement. He had an echocardiogram on 07/11/20 showed Left ventricular systolic function is normal. EF = 57 5% (3D) Normal left ventricular diastolic function. He started induction chemotherapy, R-CHOP dose reduced on 07/14/20 and Neulasta on 07/15/20. He was discharged home yesterday. He started Lupron injection for metastatic prostate cancer. The results of his bone scan and CT scan abdomen pelvis showed sclerotic lesions consistent with metastatic prostate cancer. There was alsolow density liver lesions. CT guided liver biopsy of a liver lesion that was consistent with Langerhans' cell histiocytosis. Previous treatment: R-CHOP x 5 cycles (07/14/2020- 11/03/2020 ) PET/CT negative on 11/17/2020. Current treatment: Lupron 22.5mg every 3 months (began on 06/17/2021) Interim history: He is doing well today. He has no fever, chills or night sweat. He denies fatigue,shortness of breath, early satiety or weight loss. He started Zytiga and prednisone for HRPC. He denies any bone pain. He denies urinary symptoms since he started Lupron injection. He has occasional hot flashes. No dental issues or jaw pain. All medications & allergies updated and reviewed by me. REVIEW OF SYSTEMS: CONSTITUTIONAL: No fevers, chills, nightsweats, unintended weight loss HEENT: Denies frequent or severe heaches, nasal congestion/sinus symptoms, problematic allergy problems. EYES: No diplopia or blurry vision. CARDIOVASCULAR: No chest pain, dyspnea, palpitations, orthopnea, PND, ankle edema. PULM: No dyspnea, unexplained cough. GI: No dysphagia/odynophagia, problematic reflux, constipation, diarrhea, changes in stool habits, hematochezia, melena. : No new urinary complaints, including dysuria, gross hematuria or pyuria. NEURO: No new balance problems, peripheral weakness/paresthesias or numbness of concern. MUSC-SKEL: No new joint pain, swelling, or erythema. PSY: No concerns regarding depression, anxiety or panic. INTEGUMENTARY: No new skin changes (rash, new or changing mole, new growth) PHYSICAL EXAMINATION: 66-year-old thin gentleman in no acute distress Performance status 100% BP 126/81 Pulse 80 Temp 97.6 Wt 130 lb (59.0kg) SpO2 96% HEENT: Head is normocephalic, atraumatic. Sclerae white, conjunctivae pink. PEERL. EOMs are intact.Oropharynx is benign. LYMPHATICS: There is no palpable adenopathy in the neck, supraclavicular region, axillae, or groin. LUNGS: Lungs are clear to percussion and auscultation. HEART: Heart is normal without murmurs, gallops, or rubs. ABDOMEN: Soft and nontender without organomegaly. No masses can be palpated. EXTREMITIES: Are without edema. NEUROLOGIC: Exam is physiologic, DRT's normal. No sensory neuropathy. LABS: Component Latest Ref Rng & Units 04/04/2022 WBC 3.70 - 11.00 k/uL 9.59 RBC 4.20 - 6.00 m/uL 4.55 Hemoglobin 13.0 - 17.0 g/dL 14.6 Hematocrit 39.0 - 51.0 % 42.0 MCV 80.0 - 100.0 fL 92.3 MCH 26.0 - 34.0 pg 32.1 MCHC 30.5 - 36.0 g/dL 34.8 RDW-CV 11.5 - 15.0 % 13.2 Platelet Count 150 - 400 k/uL 235 MPV 9.0 - 12.7 fL 9.9 Neut% % 70.5 Abs Neut (ANC) 1.45 - 7.50 k/uL 6.76 Lymph% % 19.0 Abs Lymph 1.00 - 4.00 k/uL 1.82 [place]% % 6.7 Abs [place] <0.87 k/uL 0.64 Eosin% % 2.6 Abs Eosin <0.46 k/uL 0.25 Baso% % 0.8 Abs Baso <0.11 k/uL 0.08 Immature Gran % % 0.4 IMMATURE GRANS (ABS) <0.10 k/uL 0.04 NRBC /100 WBC 0.0 Absolute nRBC <0.01 k/uL <0.01 DTYPE Auto Component Latest Ref Rng & Units 04/04/2022 Protein, Total 6.3 - 8.0 g/dL 7.0 Albumin 3.9 - 4.9 g/dL 4.7 Calcium 8.5 - 10.2 mg/dL 9.6 Bilirubin, Total 0.2 - 1.3 mg/dL 0.6 Alkaline Phosphatase 38 - 113 U/L 91 AST 14 - 40 U/L 14 ALT 10 - 54 U/L 9 (L) Glucose 74 - 99 mg/dL 103 (H) BUN 9 - 24 mg/dL 13 Creatinine 0.73 - 1.22 mg/dL 0.88 Sodium 136 - 144 mmol/L 137 Potassium 3.7 - 5.1 mmol/L 4.1 Chloride 97 - 105 mmol/L 102 CO2 22 - 30 mmol/L 24 Anion Gap 9 - 18 mmol/L 11 eGFR >=60 mL/min/1.73m 94 Vitamin D 25 Hydroxy 31.0 - 80.0 ng/mL 42.8 Testosterone 193 - 824 ng/dL <12 (L) Component Latest Ref Rng & Units 03/04/2022 04/04/2022 PSA <2.60 ng/mL 4.02 (H) 2.93 (H) CT SCAN:COMPARISON: CT abdomen pelvis 06/08/2021, 02/24/2021, 02/01/2012 MRI abdomen 08/30/2021, PET/CT 11/17/2020 IMPRESSION: Interval decrease in size of dominant hypoattenuating RIGHT hepatic lobe lesion and resolution of several additional hypoattenuating hepatic lesions compared to 06/08/2021 (prior liver lesion biopsy demonstrating Langerhans cell histiocytosis). Interval increase in size of multifocal sclerotic osseous metastases since 05/31/2021. 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 1) diffuse large B-cell lymphoma -complete remission by PET scan after 5 cycles of chemotherapy- R-CHOP. -CR, No evidence of recurrent lymphoma. Plan: -Continue observation -Repeat CT scans chest, abdomen pelvis in August. 2) hormone refractory prostate cancer ([place] 9) & status post radical prostatectomy & adjuvant external beam radiation therapy; with bone metastasis. -Sclerotic changes increase in size noted on CT scan and bone scan findings are consistent with progression of bone metastases -Tolerating Lupron with minimal side-effects. -PSA increasing with evidence of progression disease on imaging plan: -Continue androgen deprivation therapy with Lupron 22.5mg IM every 3 - Zytiga 1000mg once daily and prednisone 2.5 mg twice daily -Change Zometa 4 mg IV every 3 months because of bone metastasis and long-term endocrine therapy and prednisone. -Repeat CBC, CMP, PSA & LDH OV in 3 month. 3) Langerhans' cell histiocytosis (liver lesion) -Probably benign; liver functions remain normal. NO skin lesions -Regression on CT abdomen pelvis compared to MRI liver in August 2021. plan: -Continue observation Portions of this documentation were copied and pasted from previous office visit notes in order to provide a cohesive continuity of the history. The note has been reviewed and edited and updated as necessary. Sean Rodriguez MD Cc: Dr. Apollo Melo documented in this encounterSt. [facility] [facility] History of Present illness Narrative* Paco Landeros RN - 04/04/2022 7:35 AM EDT Patient is here for IVAD port flush/blood draw per Nursing Pierre Part protocol. IVAD is located in right upper chest. Site cleansed with Chloraprep IVAD accessed with a #20 gauge 3/4 non-coring Gripper needle Flush with 5cc's Normal Saline. Blood Return: Good. 10 cc's blood aspirated and discarded. Blood drawn for CBC, CMP and Gold top. Flushed with: 20 ml Normal Saline and 5 ml Heparin Lock Flush. Non-coring needle removed. Paper tape applied to puncture site. Site negative for redness, edema or tenderness. Patient tolerated procedure well. documented in this encounterSt. Mary'[facility] [facility]07-18-[facility] History of Present illness Narrative* Jaqueline Gonzalez, [facility] - 03/28/2022 3:00 PM EDT Images from the original note were not included. [facility] [place] Department of Pharmacy Oncology Pharmacy Medication Education Patient Name: Amie Killian Primary Oncologist: Dr. Sean Rodriguez Diagnosis: prostate cancer (& h/o DLBCL) Amie Killian is a 66 year old patient called today for medication education for PO Abiraterone (Zytiga). Drug Interactions: Clinically significant interactions with chemotherapy, immunosuppression, or other standard of caretreatment plan medications anticipated: No. There are no pertinent drug interactions identified. Patient was counseled accordingly. Allergies: Patient confirmed allergies documented in Epic are correct: Yes Was medication education provided?: Yes Medication Education: Administration and schedule: Abiraterone [id number] po daily on empty stomach Potential side effects discussed: fatigue, edema, HTN, hyperglycemia, constipation, increased LFT's, URI PO chemo: Verified patient understands where to store the drug. Yes Verified that patient understands prescription delivery, benefit investigation and refill process. Yes; patient awaits word from [employer] to see if he qualifies for assistance Was medication reconciliation performed?: Yes Changes made to medication list? Yes The following medications were updated within the home medication list: Medications DISCONTINUED from home medication list: Detrol LA Vitamin D3 Medications ADDED to home medication list: Calcium 600mg+Vitamin D 800 international units-two tabs po daily Current Outpatient Medications Medication Sig calcium carbonate/vitamin D3 (CALCIUM 600 + D ORAL) Take 2 tablets by mouth once daily. Calcium 600mg+Vitamin D3 800 international units per tablet predniSONE (DELTASONE) 5 mg tablet Take 0.5 tablets (2.5mg) by mouth twice daily. Take with food. abiraterone (ZYTIGA) 250 mg tablet Take 4 tablets (1000mg) by mouth once daily. Take on an empty stomach, at least 1 hour before or 2 hours after eating. tolterodine ER (DETROL LA) 4 mg 24 hr capsule Take 1 capsule by mouth once daily. (Patient not taking: Reported on 03/28/2022 ) hydrocortisone (PROCTO-CHEN) 1 % crpe 1 application by RECTAL route twice daily as needed. cilostazol (PLETAL) 100 mg tablet Take 1 tablet by mouth twice daily. fluticasone-vilanterol (BREO ELLIPTA) 200-25 mcg/dose inhaler Inhale 1 Inhalation as instructed once daily. Inhale one puff once daily. DO NOT CLICK OPEN UNTIL READY FOR DOSE docusate sodium (STOOL SOFTENER) 100 mg capsule Take 100 mg by mouth once daily as needed for constipation. cholecalciferol, vitamin D3, (VITAMIN D3 ORAL) Take 1 capsule by mouth twice daily. (Patient not taking: Reported on 03/28/2022 ) aspirin, enteric coated (ASPIRIN, ENTERIC COATED) 81 mg EC tablet Take 81 mg by mouth once daily. multivitamin (MULTIPLE VITAMINS ORAL) Take 1 capsule by mouth once daily. albuterol HFA (PROAIR HFA) 90 mcg/actuation inhaler Inhale 2 Puffs as instructed every 4 hours as needed. No current facility-administered medications for this visit. METHOD OF INSTRUCTION: Individual instruction PATIENT/FAMILY RESPONSE: Verbalizes understanding of: CHEMOTHERAPY-Regimen, toxicity and side effects FOLLOW UP PLAN: Patient instructed to call with any further issues. RNCC to follow up with patient once Zytiga received in order to instruct patient when he should start it. SUPPLEMENTAL MATERIAL: Written material was provided at this visit with the following information - Chemotherapy education was provided by a pharmacist YES - Provided important phone numbers and contacts during and after hours. YES - Provided information on symptoms that require immediate assistance. YES - Provided Chemotherapy when to call handouts YES - Preventing infection. YES - Treatment schedule and confirmation of appointment times. YES - Available support groups. NA Readiness to Learn COGNITIVE ABILITY: Alert and oriented MOTIVATION TO LEARN: Eager FAMILY SUPPORT: Unable to assess - Family not present INSTRUCTION PROVIDED TO: Patient INSTRUCTION PROVIDED BY: Pharmacist PATIENT LEARNS BEST BY: Individual Instruction FACTORS AFFECTING LEARNING: Uncertainty of whether or not patient will receive financial for this medication PHYSICAL LIMITATIONS AFFECTING LEARNING: None Thank you for allowing us to participate in the care of this patient. I spent 30 time (15 minute increments) with the patient Jaqueline Gonzalez RPh documented in this encounterSt. Mary'[facility] [facility]07-[facility] Miscellaneous Notes* Telephone Encounter - Sean Rodriguez MD - 03/18/2022 12:11 PM EDT Patient's request for medication is as follows Signed Prescriptions Disp Refills predniSONE (DELTASONE) 5 mg tablet 30 tablet 2 Sig: Take 0.5 tablets (2.5mg) by mouth twice daily. Take with food. TERRI: No Authorizing Provider: SEAN RODRIGUEZ Order entered - please phone pharmacy and notify patient. Sean Rodriguez MD * Telephone Encounter - Sean Rodriguez MD - 03/18/2022 12:10 PM EDT Patient's request for medication is as follows Signed Prescriptions Disp Refills predniSONE (DELTASONE) 5 mg tablet 30 tablet 2 Sig: Take 0.5 tablets (2.5mg) by mouth twice daily. Take with food. TERRI: No Authorizing Provider: SEAN RODRIGUEZ Order entered - please phone pharmacy and notify patient. Sean Rodriguez MD * Telephone Encounter - Alesia Schroeder LPN - 03/18/2022 11:17 AM EDT Please send to local pharmacy. Alesia Schroeder LPN documented in this encounterSt. Mary'[facility] [facility]07-[facility] Miscellaneous Notes* Telephone Encounter - Maliha Lacy RN - 03/18/2022 11:28 AM EDT Patient to call when he is aware when the drug will be delivered. Nemo Lacy RN * Telephone Encounter - Maliha Lacy RN - 03/18/2022 11:21 AM EDT ORAL ANTI-CANCER AGENTS EDUCATION patient here today for oral medication education for Abiraterone (Zytiga) for DLBCL READINESS TO LEARN Cognitive Ability: Alert and oriented Motivation to Learn: Interested Family Support: Unable to assess - Family not present Instruction Provided to: Patient Patient learns best by: Multiple Methods Factors affecting learning: None Physical limitation affecting learning: None MCKINNEY ASSESSMENT: 1.) Verified that patient knows that the oral agents are for cancer and are taken by mouth. Yes 2.) Medication reconciliation completed during visit. Yes 3.) Patient is able to swallow pills. Yes 4.) Patient is able to read the drug label/information. Yes 5.) Patient is able to open the medication bottles and packages. Yes 6.) Has patient taken other pills for cancer? No 7.) Is patient experiencing any symptoms that would affect their ability to keep down pills, for example nausea or vomiting? No 8.) Verified that patient understands prescription delivery, benefit investigation and refill process. Yes PATIENT EDUCATION: 1.) Verified that patient attended individualized instruction on chemotherapy taught by a nurse. Yes 2.) Verified that patient received Chemotherapy Safety in the Home handout, ChemoCare Medication Information handout: Zytiga and ACS Oral Chemotherapy booklet: Yes DRUG-SPECIFIC EDUCATION: 1.) Verified that patient knows the drug name. Yes 2.) Verified patient understands the dose and schedule of oral chemo agent:with water, at least onehour before or two hours after a meal. Yes 3.) Verified patient knows what to do if a medication dose is missed. Yes 4.) Verified patient understands where to store the drug. Yes 5.) Verified patient understands potential side effects and how to manage them. Yes Diarrhea, Peripheral Edema, Myalgia, Electrolyte Disturbances and Fluid Retention 6.)Verified that patient understands handling precautions of oral chemo agent. Yes 7.) Verified that patient understands when and whom to call with questions. Yes 8.) Verified that patient understands where and how to return drug. Yes EVALUATE: Patient was able to demonstrate an understanding of all the above education using the teach-back method. Yes Patient instructed to call us with any questions, concerns, and/or unresolved symptoms. Will continue to follow up with patient and provide reinforcement of teaching topics as needed. Total time spent with patient: 15 minutes Total time spent on encounter: 15 minutes Maliha Lacy RN documented in this encounterSt. Mary'[facility] [facility]06[facility]27-[facility] History of Present illness Narrative* Sean Rodriguez MD - 03/07/2022 11:07 AM EDT PATIENT NAME: Alejandro Killian. CLINIC NO: [id number]. ATTENDING PHYSICIAN: Sean Rodriguez MD. 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 Lupron injection & adjuvant radiation therapy completed 01/07/2013 , COPD, Hepatitis C (completed hepatitis Ctreatment in March 2020) HPI: 66 year old male presenting with upper abdominal pain and jaundice. He was evaluated at [facility] and discovered to have a large periportal, pancreatic mass causing bile duct obstruction.CT-guided biopsy was performed July 03, 2020 and preliminary results indicate high-grade B cell non- Hodgkin's lymphoma. In the interim, he was transferred to [facility] for consideration of ERCP or PTHC to relieve his biliary obstruction. He denies any fevers or chills. However, he has been losing weight and was kept n.p.o for several days. No fevers chills or night sweats. He was placed on high-dose steroidbecause of early obstruction from lymphoma. CT scan of chest abdomen pelvis on 07/10/20 showed a Large central abdominal mass which appears to be invading the liver. Associated vascular encasement and intrahepatic biliary dilatation. Bone marrow biopsy also performed the same day showed no lymphomainvolvement. He had an echocardiogram on 07/11/20 showed Left ventricular systolic function is normal. EF = 57 5% (3D) Normal left ventricular diastolic function. He started induction chemotherapy, R-CHOP dose reduced on 07/14/20 and Neulasta on 07/15/20. He was discharged home yesterday. He started Lupron injection for metastatic prostate cancer. The results of his bone scan and CT scan abdomen pelvis showed sclerotic lesions consistent with metastatic prostate cancer. There was alsolow density liver lesions. CT guided liver biopsy of a liver lesion that was consistent with Langerhans' cell histiocytosis. Previous treatment: R-CHOP x 5 cycles (07/14/2020- 11/03/2020 ) PET/CT negative on 11/17/2020. Current treatment: Lupron 22.5mg every 3 months (began on 06/17/2021) Interim history: He is doing well today. He has no fever, chills or night sweat. He denies fatigue,shortness of breath, early satiety or weight loss. No rash or skin lesions or itching. He has no abdominal pain, bloating, jaundice or diarrhea. He has chronic pain of his hip and back secondary to osteoarthritis. He does not have hot flashes or urinary symptoms since he started Lupron injection. He has occasional hot flashes. All medications & allergies updated and reviewed by me. REVIEW OF SYSTEMS: CONSTITUTIONAL: No fevers, chills, nightsweats, unintended weight loss HEENT: Denies frequent or severe heaches, nasal congestion/sinus symptoms, problematic allergy problems. EYES: No diplopia or blurry vision. CARDIOVASCULAR: No chest pain, dyspnea, palpitations, orthopnea, PND, ankle edema. PULM: No dyspnea, unexplained cough. GI: No dysphagia/odynophagia, problematic reflux, constipation, diarrhea, changes in stool habits, hematochezia, melena. : No new urinary complaints, including dysuria, gross hematuria or pyuria. NEURO: No new balance problems, peripheral weakness/paresthesias or numbness of concern. MUSC-SKEL: No new joint pain, swelling, or erythema. PSY: No concerns regarding depression, anxiety or panic. INTEGUMENTARY: No new skin changes (rash, new or changing mole, new growth) PHYSICAL EXAMINATION: 66-year-old thin gentleman in no acute distress Performance status 100% BP 158/94 Pulse 63 Temp (Src) 97.8 (Temporal) Wt 132 lb (59.9kg) SpO2 98% HEENT: Head is normocephalic, atraumatic. Sclerae white, conjunctivae pink. PEERL. EOMs are intact.Oropharynx is benign. LYMPHATICS: There is no palpable adenopathy in the neck, supraclavicular region, axillae, or groin. LUNGS: Lungs are clear to percussion and auscultation. HEART: Heart is normal without murmurs, gallops, or rubs. ABDOMEN: Soft and nontender without organomegaly. No masses can be palpated. EXTREMITIES: Are without edema. NEUROLOGIC: Exam is physiologic, DRT's normal. No sensory neuropathy. LABS: Component Latest Ref Rng & Units 03/04/2022 WBC 3.70 - 11.00 k/uL 8.69 RBC 4.20 - 6.00 m/uL 4.29 Hemoglobin 13.0 - 17.0 g/dL 13.9 Hematocrit 39.0 - 51.0 % 39.8 MCV 80.0 - 100.0 fL 92.8 MCH 26.0 - 34.0 pg 32.4 MCHC 30.5 - 36.0 g/dL 34.9 RDW-CV 11.5 - 15.0 % 12.9 Platelet Count 150 - 400 k/uL 228 MPV 9.0 - 12.7 fL 9.4 Neut% % 66.2 Abs Neut (ANC) 1.45 - 7.50 k/uL 5.75 Lymph% % 21.2 Abs Lymph 1.00 - 4.00 k/uL 1.84 [place]% % 6.2 Abs [place] <0.87 k/uL 0.54 Eosin% % 5.1 Abs Eosin <0.46 k/uL 0.44 Baso% % 1.0 Abs Baso <0.11 k/uL 0.09 Immature Gran % % 0.3 IMMATURE GRANS (ABS) <0.10 k/uL 0.03 NRBC /100 WBC 0.0 Absolute nRBC <0.01 k/uL <0.01 DTYPE Auto Component Latest Ref Rng & Units 03/04/2022 Protein, Total 6.3 - 8.0 g/dL 6.0 (L) Albumin 3.9 - 4.9 g/dL 4.2 Calcium 8.5 - 10.2 mg/dL 8.6 Bilirubin, Total 0.2 - 1.3 mg/dL 0.3 Alkaline Phosphatase 38 - 113 U/L 80 AST 14 - 40 U/L 15 ALT 10 - 54 U/L 8 (L) Glucose 74 - 99 mg/dL 98 BUN 9 - 24 mg/dL 10 Creatinine 0.73 - 1.22 mg/dL 0.85 Sodium 136 - 144 mmol/L 141 Potassium 3.7 - 5.1 mmol/L 4.0 Chloride 97 - 105 mmol/L 107 (H) CO2 22 - 30 mmol/L 25 Anion Gap 9 - 18 mmol/L 9 eGFR >=60 mL/min/1.73m 95 LD 135 - 225 U/L 176 Component Latest Ref Rng & Units 07/16/2021 08/30/2021 11/15/2021 03/04/2022 PSA <2.60 ng/mL 2.73 (H) 2.00 1.96 4.02 (H) BONE SCAN: COMPARISON: Whole body bone scan on 06/17/2021 CORRELATION: CT of the abdomen and pelvis 03/04/2022 IMPRESSION: METASTATIC LESIONS IN THE BONE DESCRIBED. INTERVAL NEW LESIONS SUGGEST METASTATIC PROGRESSION. LIKELY CHRONIC DJD DESCRIBED CT SCAN:COMPARISON: CT abdomen pelvis 06/08/2021, 02/24/2021, 02/01/2012 MRI abdomen 08/30/2021, PET/CT 11/17/2020 IMPRESSION: Interval decrease in size of dominant hypoattenuating RIGHT hepatic lobe lesion and resolution of several additional hypoattenuating hepatic lesions compared to 06/08/2021 (prior liver lesion biopsy demonstrating Langerhans cell histiocytosis). Interval increase in size of multifocal sclerotic osseous metastases since 05/31/2021. 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 1) diffuse large B-cell lymphoma -complete remission by PET scan after 5 cycles of chemotherapy- R-CHOP. -CR, No evidence of recurrent lymphoma. Plan: -Continue observation -Repeat CT scans chest, abdomen pelvis in 6 months 2) hormone refractory prostate cancer ([place] 9) & status post radical prostatectomy & adjuvant external beam radiation therapy; with bone metastasis. -Sclerotic changes increase in size noted on CT scan and bone scan findings are consistent with progression of bone metastases -Tolerating Lupron with minimal side-effects. -PSA increasing with evidence of progression disease on imaging plan: -Continue androgen deprivation therapy with Lupron 22.5mg IM every 3 -Start Zytiga 1000mg once daily and prednisone 2.5 mg twice daily -Change Zometa 4 mg IV every 3 months because of bone metastasis and long-term endocrine therapy and prednisone. -Repeat CBC, CMP, PSA OV in 1 month. I spent 30 minutes in the visit, with more than 50% of the total [id number] time of the visit in counseling / coordination of care. Side effects and benefits of Zytiga and prednisone were discussedwith the patient and family including nausea, vomiting, fatigue, gynecomastia, hyperglycemia, mucositis, diarrhea, infection, bleeding. The patient and family were allowed enough time to ask questions. All questions were answered to their satisfaction. Patient and family verbalized understanding oftreatment plan and agreed to proceed with therapy. Portions of this documentation were copied and pasted from previous office visit notes in order to provide a cohesive continuity of the history. The note has been reviewed and edited and updated as necessary. Sean Rodriguez MD Cc: Dr. Apollo Melo documented in this encounterSt. Mary'[facility] [facility]06[facility] History of Present illness Narrative* Lisa Curiel - 03/07/2022 9:[address] [facility] received prescription(s) for Abiraterone from Dr. Rodriguez's office.Benefits investigation was conducted, indicating that a prior authorization is required by patient's insurance plan with [employer]. Encounter will be updated once prior authorization has been submitted by [facility]. Lisa Curiel CPhT [facility], Oncology P: / F: documented in this encounterSt. Mary'S [facility]06[facility] History of Present illness Narrative* RT Corazon(R) - 03/04/2022 9:00 AM EDT Radiology Service Progress Note DATE OF SERVICE: March 04, 2022 TIME: 1:45 PM PATIENT IDENTITY VERIFICATION COMPLETED USING TWO (2) STANDARD IDENTIFIERS: Name and Date of confirmed by patient verbally. FALL SCREENING: Has the patient had 2 falls in the last year or 1 fall with injury or currently using an Ambulatory Assistive Device (Walker, Cane, Wheelchair, Crutches, etc.)? No PATIENT GENDER DATA: Male PATIENT RELEVANT IMPLANT DATA REVIEWED: Yes ALLERGIES: Reviewed and unchanged CONTRAST ALLERGY: NO. EXAM: CT -CONTRAST INDUCED NEPHROPATHY RISK FACTORS: Patient age > 60 years CREATININE: Creatinine Date Value Ref Range Status 03/04/2022 0.85 0.73 - 1.22 mg/dL Final 11/15/2021 0.82 0.73 - 1.22 mg/dL Final 08/30/2021 0.76 0.73 - 1.22 mg/dL Final Estimated Glomerular Filtration Rate Date Value Ref Range Status 03/04/2022 95 >=60 mL/min/1.73m Final Comment: Estimated Glomerular Filtration Rate (eGFR) is calculated using the 2020 CKD-EPI creatinine equation. This equation utilizes serum creatinine, sex, and age as parameters. The creatinine assay has traceable calibration to isotope dilution- mass spectrometry. Refer to KDIGO guidelines for clinical interpretation. In patients with unstable renal function, e.g. those with acute kidney injury, the eGFRmay not accurately reflect actual GFR. eGFR- Date Value Ref Range Status 08/30/2021 >60 Final P.O.C.T. RESULTS: POC done: Yes, See Lab Tab March 04, 2022 TREATMENT: N/A PERIPHERAL IV DATA: Ambulatory: A peripheral IV was started in the Left antecubital site with a Angio cath: 22 gauge. RADIOLOGY DEPARTMENT: CT; Exam(s) Completed: Abdomen/Pelvis SIGNATURE: RT Panfilo(Alec) PATIENT NAME: Amie Killian DATE: March 04, 2022 TIME: 1:45 PM documented in this encounterSt. Mary'[facility]06[facility] History of Present illness Narrative* THERESA LoraR) - 03/04/2022 7:30 AM EDT RADIOLOGY SERVICE PROGRESS NOTE SERVICE DATE: 03/04/2022 SERVICE TIME: 07:30 AM PATIENT IDENTITY VERIFICATION COMPLETED USING TWO (2) STANDARD IDENTIFIERS: Name and Date of confirmed by patient verbally FALL SCREENING: Has the patient had 2 falls in the last year or 1 fall with injury or currently using an Ambulatory Assistive Device (Walker, Cane, Wheelchair, Crutches, etc.)? No PATIENT GENDER DATA: .male ALLERGIES: Reviewed and unchanged MEDICATIONS REVIEWED: No PATIENT RELEVANT IMPLANT DATA REVIEWED: Not Applicable CREATININE: Creatinine Date Value Ref Range Status 03/04/2022 0.85 0.73 - 1.22 mg/dL Final 11/15/2021 0.82 0.73 - 1.22 mg/dL Final 08/30/2021 0.76 0.73 - 1.22 mg/dL Final Estimated Glomerular Filtration Rate Date Value Ref Range Status 03/04/2022 95 >=60 mL/min/1.73m Final Comment: Estimated Glomerular Filtration Rate (eGFR) is calculated using the 2020 CKD-EPI creatinine equation. This equation utilizes serum creatinine, sex, and age as parameters. The creatinine assay has traceable calibration to isotope dilution- mass spectrometry. Refer to KDIGO guidelines for clinical interpretation. In patients with unstable renal function, e.g. those with acute kidney injury, the eGFRmay not accurately reflect actual GFR. eGFR- Date Value Ref Range Status 08/30/2021 >60 Final P.O.C.T. RESULTS: N/A March 04, [address] PERFORMED: No IV SITE: Ambulatory: A power injectable port was accessed in the Right side. Blood Return, Flushed easily with normal saline, Good Blood Return Post Injection, Flushed with 20 cc saline followed by Heparin 500 units/5 cc and No Complications - accessed by hem/onc nurse. POST EXAM PIV STATUS: Left in for next appointment PROCEDURE TYPE: NM INJECT: Whole Body Bone Scan. 21.8 mCi Tc99m MDP. No other medications given.. ADMINISTRATION TIME: 07:38 PATIENT DISCHARGED TO: Ambulatory patient, left NM department area. A Diagnostic radioactive procedure has taken place, with no further precautions necessary other than routine body substance precautions. More information regarding radiation safety can be found usingthis link: [email or web address] SIGNATURE: CHAN Lora PATIENT NAME: Amie Killian DATE: March 04, 2022 TIME: 07:45 AM PAGER/CONTACT #: documented in this encounterSt. Mary'S [facility]06[facility] Nurse Note* Radha Medina LPN - 02/25/2022 9:48 AM EDT Pt here for injection of Lupron. Given IM in left buttock. Pt tolerated well. Radha Medina LPN documented in this encounterSt. Mary'S [facility]06-[facility]22 Miscellaneous Notes* Telephone Encounter - Zakia Elam Ma - 02/25/2022 8:20 AM EDT See message from pt and advise. Zakia Elam Ma documented in this encounterSt. Mary'S [facility]06[facility] History of Present illness Narrative* Amanda Corona DO - 02/22/2022 9:34 AM EDT This office note has been dictated. Amanda Corona DO documented in this encounterSt. [facility] [facility] History of Present illness Narrative* Apollo Melo MD - 01/11/2022 8:00 AM EDT Chief Complaint Patient presents with: 6 Month Exam HPI Amie Killian is a 66 year old male who presents here today for a 6 month follow up. Smoking: Continues to still smoke almost 1 ppd. He states he doesn't think he can quit. Recently had colonoscopy completed by Dr. Kenny on 12/24/21. Pt has hx of colonic polyps, diverticular disease. Uses Stool softeners prn, mostly just eats Prunes which helps. He occ will use Senna. Uses hydrocortisone for internal hemorrhoids. : Hx of urinary retention and prostate cancer. He has issues with urinary incontinence since the prostate was removed. He knows that he could cut back on the caffeine. He has never been on medication for this. He has some leaking which started when he had the prostate removed. He uses urinary pads. He has tried doing Pelvic Floor exercises. PAD & Lipid: Denies any chest pain, sob or dizziness. Follows with Vascular, Dr. Corona and is on current regimen of Pletal 100 mg 1 tab po bid. He does walk for exercise and enjoys playing golf. He admits he could do better with watching his diet and eating more vegetables. He states that he typically just eats when he wants to, no planned meals. He likes soup and prefers Pork Chops and baked potatoes. He admits that at the end of the day if he has done a lot of walking his legs will get tired. COPD: PFT testing ordered last year, but never completed. On current regimen of Breo Ellipta 200-25mcg once daily and prn use of Albuterol inhaler. He does get a little SOB when walking up hills. Hehas not needed to use the rescue inhaler. Hem/Onc:Routine f/u with Dr. Rodriguez for diffuse large B-Cell lymphoma of intra- abdominal lymph nodes, lesion of liver and malignant neoplasm of prostate. Was started back on Lupron due to elevated PSA and increased bone lesions. Ortho: Was seen by Dr. Lebron due to trigger finger of left middle finger. Surgery completed on 08/26/21. He states that the finger is doing better, still some stiffness. Past medical history, appointments, medications, allergies reviewed. Previous Medical History PAST MEDICAL HISTORY Diagnosis Date Fistula Lesion of liver 06/10/2021 Non Hodgkin's lymphoma (HCC) PAD (peripheral artery disease) (HCC) Prostate cancer (HCC) 12/2011 Previous Surgical History PAST SURGICAL HISTORY Procedure Laterality Date ABDOMINAL SURGERY HX APPENDECTOMY HX COLONOSCOPY 12/24/2021 repeat in 5 years COLONOSCOPY FLX DX W/COLLJ SPEC WHEN PFRMD 02/15/2016 Colonoscopy IMPLANT CATH INSERTION (AG) 07/30/2020 IVAD right chest INCISE FINGER TENDON SHEATH Left 08/26/2021 Left middle and ring trigger finger releases PAST SURGICAL HISTORY OF appendectomy PAST SURGICAL HISTORY OF tonsilectomy PROSTATECTOMY, SIMPLE, BENIGN 01/03/2012 prostate removed TONSILLECTOMY HX Family History FAMILY HISTORY Problem Relation Age of Onset Heart Father of SC age 80 Stroke Mother Heart Brother Patient Allergies ALLERGIES Allergen Reactions Doxycycline GI Upset Unsure if he really has SE to this medication Current Medications Current Outpatient Medications on File Prior to Visit Medication Sig polyethylene glycol 3350 (MIRALAX, GLYCOLAX) 17 gram/dose powder Use as directed for Miralax / Gatorade Bowel Prep Kit Gatorade Sports Drink Use as directed for Miralax / Gatorade Bowel Prep Kit Bisacodyl (DULCOLAX) 5 mg tab Use as directed for Miralax / Gatorade Bowel Prep Kit cilostazol (PLETAL) 100 mg tablet Take 1 tablet by mouth twice daily. fluticasone-vilanterol (BREO ELLIPTA) 200-25 mcg/dose inhaler Inhale 1 Inhalation as instructed once daily. Inhale one puff once daily. DO NOT CLICK OPEN UNTIL READY FOR DOSE docusate sodium (STOOL SOFTENER) 100 mg capsule Take 100 mg by mouth once daily as needed for constipation. hydrocortisone (PROCTO-CHEN) 1 % crpe 1 application by RECTAL route twice daily as needed. cholecalciferol, vitamin D3, (VITAMIN D3 ORAL) Take 1 capsule by mouth once daily. aspirin, enteric coated (ASPIRIN, ENTERIC COATED) 81 mg EC tablet Take 81 mg by mouth once daily. multivitamin (MULTIPLE VITAMINS ORAL) Take 1 capsule by mouth once daily. albuterol HFA (PROAIR HFA) 90 mcg/actuation inhaler Inhale 2 Puffs as instructed every 4 hours as needed. No current facility-administered medications on file prior to visit. Social History Social History Tobacco Use Smoking status: Current Every Day Smoker Packs/day: 0.75 Years: 47.00 Pack years: 35.25 Types: Cigarettes Smokeless tobacco: Never Used Vaping Use Vaping Use: Never used Substance Use Topics Alcohol use: Not Currently Comment: Drug use: No EXAM: BP 122/74 Pulse 78 Resp 16 Wt 60.6 kg (133 lb 11.2 oz) BMI 20.63 kg/m General Appearance: Well appearing, alert, in no acute distress, well-hydrated, well nourished.. Lungs: Lungs clear to auscultation. No wheezing, rhonchi, rales.. Heart: RRR without murmur, gallop, or rubs. No ectopy. Health Maintenance List ABDOMINAL AORTIC ANEURYSM SCREENING Never done SPIROMETRY Never done SHINGRIX VACCINE(1 of 2) Never done LIPID SCREEN due on 12/24/2019 LUNG CANCER SCREENING due on 07/10/2021 ADVANCE DIRECTIVE DISCUSSION Never done COVID-19 VACCINE(4 - Booster for Pfizer series) due on 10/28/2021 ANNUAL PCP TEAM CHRONIC DISEASE VISIT due on 07/13/2022 DEPRESSION SCREENING due on 07/13/2022 DTAP,TDAP,TD(2 - Td or Tdap) due on 12/26/2023 DIABETES SCREEN due on 11/15/2024 PROSTATE CANCER SCREENING DISCUSSION due on 11/15/2026 COLORECTAL CANCER SCREENING due on 12/24/2026 INFLUENZA Completed HEPATITIS C SCREENING Completed PNEUMOVAX AGE 65 AND OVER WITH 5YR LOOKBACK Completed MENINGOCOCCAL CONJUGATE Aged Out Data reviewed Infusion Center on 11/15/2021 Component Date Value WBC 11/15/2021 7.95 RBC 11/15/2021 4.10 (A) Hemoglobin 11/15/2021 12.9 (A) Hematocrit 11/15/2021 37.4 (A) MCV 11/15/2021 91.2 MCH 11/15/2021 31.5 MCHC 11/15/2021 34.5 RDW-CV 11/15/2021 13.6 Platelet Count 11/15/2021 228 MPV 11/15/2021 9.7 Neut% 11/15/2021 67.8 Abs Neut 11/15/2021 5.39 Lymph% 11/15/2021 19.2 Abs Lymph 11/15/2021 1.53 [place]% 11/15/2021 6.9 Abs [place] 11/15/2021 0.55 Eosin% 11/15/2021 5.0 Abs Eosin 11/15/2021 0.40 Baso% 11/15/2021 0.8 Abs Baso 11/15/2021 0.06 Immature Gran % 11/15/2021 0.3 Abs Immature Gran 11/15/2021 <0.03 NRBC 11/15/2021 0.0 Absolute nRBC 11/15/2021 <0.01 Diff Type 11/15/2021 Auto Protein, Total 11/15/2021 6.0 (A) Albumin 11/15/2021 3.9 Calcium, Total 11/15/2021 8.7 Bilirubin, Total 11/15/2021 0.4 Alkaline Phosphatase 11/15/2021 78 AST 11/15/2021 17 ALT 11/15/2021 10 Glucose 11/15/2021 112 (A) BUN 11/15/2021 16 Creatinine 11/15/2021 0.82 Sodium 11/15/2021 140 Potassium 11/15/2021 3.6 (A) Chloride 11/15/2021 103 CO2 11/15/2021 24 Anion Gap 11/15/2021 13 Estimated Glomerular Steve* 11/15/2021 96 LD 11/15/2021 168 PSA 11/15/2021 1.96 ASSESSMENT/PLAN: 1. Hyperlipidemia, unspecified hyperlipidemia type - ICD9: 272.4, ICD10: E78.5 (primary diagnosis) - good control - Continue current medication. - Encouraged following a low fat, low cholesterol diet. - Discussed the benefits of regular aerobic exercise and weight loss. 2. PAD (peripheral artery disease) (HCC) - ICD9: 443.9, ICD10: I73.9 Continue current medications. Continue with Dr. Corona, Vascular 3. Tobacco use disorder - ICD9: 305.1, ICD10: F17.200 - Cessation encouraged. - Physiologic and physical aspects of tobacco addiction as well as strategies for quitting were discussed. - Counseling was given focusing on the harmful effects of this addiction especially given the patient's medical condition(s) which will be worsened because of the chemicals in tobacco. - Counseling was given 3-4 minutes. 4. Chronic obstructive pulmonary disease, unspecified COPD type (HCC) - ICD9: 496, ICD10: J44.9 Stable Continue current medications. 5. Malignant neoplasm of prostate (HCC) - ICD9: 185, ICD10: C61 Continue with Hem/Onc 6. Elevated PSA - ICD9: 790.93, ICD10: R97.20 Continue with urologist 7. Urinary incontinence, unspecified type - ICD9: 788.30, ICD10: R32 Start Ditropan 5 mg daily Notify office if not helping and can try something else Follow up in 6 months with labs I agree with the Chief Complaint, ROS, and Past Histories independently gathered by the clinical nursing support worker and the remaining scribed note accurately describes my personal service to the patient. Medical Decision Making: Problems: Moderate: 2+ stable chronic illnesses Risk: Moderate: Drug management Medical Decision Making Level: 4 - Moderate Apollo Melo MD . The documentation for this note was completed by Anita Inman Ma acting as scribe for Apollo Melo MD. January 11, 2022 8:19 AM. Anita Inman Ma documented in this encounterSt. [facility] [place] [facility] Nurse Note* Aracelis Estrella RN - 12/24/2021 12:05 PM EDT Abdomen soft non-distended. Will continue to monitor. * Aracelis Estrella RN - 12/24/2021 11:18 AM EDT [facility] PRE-OP NURSING HAND OFF NOTE SBAR Hand off given to Candelario Ospina RN. Hand off was communicated verbally and at the patient's bedside and all questions were answered. Aracelis Estrella RN documented in this encounterSt. [facility] [place] [facility]04[facility] History and physical note * Reena Kenny MD - 12/24/2021 11:15 AM EDT UPDATED PROCEDURAL SEDATION HISTORY AND PHYSICAL EXAMINATION SERVICE DATE: 12/24/2021 SERVICE TIME: 10:27 PHYSICAL EXAM MUST BE COMPLETED ON ADMISSION PROCEDURE: colonoscopy, possible biposies Procedure Indications: history of colon polyps The History and Physical (completed in the past 30 days) has been reviewed and the patient has beenexamined. The contents accurately reflect the patient's condition with the following additions or revisions since the H&P was completed. ASA Class: ASA Class:: Patient with mild systemic disease Examination indicates no changes. AIRWAY: Airway Visualization of Uvula: Yes Mouth opening greater than 2 fingerbreadths: Yes Neck Full Range of Motion: Yes LUNGS: Lungs clear to auscultation CARDIAC: Regular rhythm,Regular rate Provisional Diagnosis/Treatment Plan: colonoscopy, possible biopsies SEDATION GOAL: Moderate This H&P can be found in the Electronic Medical Record. SIGNATURE: Reena Kenny MD PATIENT NAME: Amie Killian DATE: December 24, 2021 TIME: 10:28 AM * Reena Kenny MD - 12/24/2021 11:15 AM EDT HISTORY AND PHYSICAL Amie Killian 1955 REFERRING PHYSICIAN: Self CHIEF COMPLAINT: Consult (Colonoscopy) HPI: The patient is a 66 year old male presents with history of colon polyps. He had a colonoscopy in 2015 (IV conscious sedation and did well with this) with findings of tubular adenoma. He denies abdominal pain. He denies blood in stools. He notes no family history of colon cancer. He notes being not happy with his bowel movements, sometimes they are small and he takes vegetable laxatives for better bowel movements, about twice per week on average. He admits that he doesn't drink enough free water. He has known B Cell lymphoma. PAST MEDICAL HISTORY Diagnosis Date COPD (chronic obstructive pulmonary disease) (HCC) Mild Fistula Lesion of liver 06/10/2021 Non Hodgkin's lymphoma (HCC) PAD (peripheral artery disease) (HCC) Prostate cancer (HCC) 12/2011 PAST SURGICAL HISTORY Procedure Laterality Date ABDOMINAL SURGERY HX APPENDECTOMY HX COLONOSCOPY FLX DX W/COLLJ SPEC WHEN PFRMD 02/15/2016 Colonoscopy IMPLANT CATH INSERTION (AG) 07/30/2020 IVAD right chest INCISE FINGER TENDON SHEATH Left 08/26/2021 Left middle and ring trigger finger releases PAST SURGICAL HISTORY OF appendectomy PAST SURGICAL HISTORY OF tonsilectomy PROSTATECTOMY, SIMPLE, BENIGN 01/03/2012 prostate removed TONSILLECTOMY HX Current Outpatient Medications Medication Sig polyethylene glycol 3350 (MIRALAX, GLYCOLAX) 17 gram/dose powder Use as directed for Miralax / Gatorade Bowel Prep Kit Gatorade Sports Drink Use as directed for Miralax / Gatorade Bowel Prep Kit Bisacodyl (DULCOLAX) 5 mg tab Use as directed for Miralax / Gatorade Bowel Prep Kit cilostazol (PLETAL) 100 mg tablet Take 1 tablet by mouth twice daily. fluticasone-vilanterol (BREO ELLIPTA) 200-25 mcg/dose inhaler Inhale 1 Inhalation as instructed once daily. Inhale one puff once daily. DO NOT CLICK OPEN UNTIL READY FOR DOSE docusate sodium (STOOL SOFTENER) 100 mg capsule Take 100 mg by mouth once daily as needed for constipation. hydrocortisone (PROCTO-CHEN) 1 % crpe 1 application by RECTAL route twice daily as needed. cholecalciferol, vitamin D3, (VITAMIN D3 ORAL) Take 1 capsule by mouth once daily. aspirin, enteric coated (ASPIRIN, ENTERIC COATED) 81 mg EC tablet Take 81 mg by mouth once daily. multivitamin (MULTIPLE VITAMINS ORAL) Take 1 capsule by mouth once daily. albuterol HFA (PROAIR HFA) 90 mcg/actuation inhaler Inhale 2 Puffs as instructed every 4 hours as needed. ALLERGIES: Doxycycline PERSONAL HISTORY: Social History Tobacco Use Smoking status: Current Every Day Smoker Packs/day: 0.75 Years: 47.00 Pack years: 35.25 Types: Cigarettes Smokeless tobacco: Never Used Vaping Use Vaping Use: Never used Substance Use Topics Alcohol use: Not Currently Comment: Drug use: No FAMILY HISTORY Problem Relation Age of Onset Heart Father of [place] age 80 Stroke Mother Heart Brother The review of systems data was entered by the nurse and reviewed by ga Nursing Notes: Lida Mendoza 11/15/2021 9:20 AM Signed REVIEW OF SYSTEMS: General: The patient denies fatigue, NOTES weight loss, denies weight gain, denies feeling hot, anddenies feelings of cold. Eyes: The patient denies glaucoma, denies eye injury/surgery, wears glasses or contacts. Ear/Nose/Throat: The patient denies allergies, denies hayfever, denies ear infections, and denies bloody noses. Cardiovascular: The patient denies chest pain, denies heart disease, denies high blood pressure,denies cardiac stent, denies prior heart attack, denies irregular heart beat, denies high cholesterol, denies poor circulation, denies heart failure, other cardiac issues, denies claudication, denies cold feet, denies peripheral arterial stent. Respiratory: The patient denies tuberculosis, denies pneumonia, denies frequent cough, denies pulmonary embolism, NOTES shortness of breath, and denies coughing up blood. Gastrointestinal: The patient denies difficulty swallowing, denies acid reflux, denies ulcers, denies vomiting, denies jaundice/hepatitis, denies gallbladder problems, denies black or tarry stools, denies hemorrhoids, denies bleeding from rectum, denies diverticulitis, NOTES constipation, denies diarrhea, denies loss of stool control, and denies hernias. Kidney/Bladder: The patient denies kidney stones, denies urine infections, and denies bloody urine. Skin: The patient denies a history of skin cancer, denies bleeding/changing moles, and denies a history of skin rash. Neurologic: The patient denies a history of epilepsy/convulsions, denies headaches, denies head/spinal injuries, and denies stroke/TIA. Psychiatric: The patient denies psychiatric medications, denies depression, and denies voices, denies substance abuse. Endocrine: The patient denies thyroid disorders, denies diabetes, and denies hormonal problems. Hematologic: The patient NOTES a history of bruising, denies bleeding, and denies anemia, denies blood clots. Infections: The patient denies a history of measles and mumps, denies rheumatic fever, and denies sexually transmitted diseases. Musculoskeletal: The patient denies back pain/injury, denies back problems, denies sciatica, NOTES knee/foot trouble, denies arthritis, or denies gout. Last Colonoscopy: 02/15/2016 Lida Mendoza PHYSICAL EXAMINATION: General: The patient is 66 year old male, well nourished, well hydrated in no acute distress. The patient is oriented to time, place, and person. VITALS: Blood pressure 101/72, pulse 98, temperature 37.2 C (98.9 F), height 171.5 cm (5' 7.5), weight 59 kg (130 lb), SpO2 98 %. Body mass index is 20.06 kg/m . Head: Normal cephalic, atraumatic Eyes: pupils are equally round, sclera are clear/anicteric Neck is supple with no tracheal deviation Respiratory: Normal respiratory excursion and pattern. Abdominal exam: benign Extremities: no clubbing, cyanosis or edema. Neuro: non focal Psych: normal mood IMPRESSION: history of colon polyps PLAN: I have discussed the above with the patient. I have offered surveillance colonoscopy possible biopsies I have counseled the patient as to the risks of the procedure, including but not limited to: infection, bleeding, perforation of the GI tract, injury to any intraabdominal organs such as the liver/spleen, inability to complete the procedure, complications of anesthesia, etc. the patient understands. I have explained to the patient the difference between IV conscious sedation and MAC anesthesia - and I have offered either, according to the patient's wishes. I have explained that with IV conscioussedation there is no anesthesia provider available and therefore there is a limitation of the amount of IV medications that can be given and that the patient may wake up in the middle of the procedure and/or experience pain/discomfort during the procedure. Further discussion was done and the patient was given the opportunity to ask questions and all questions were answered. The patient chooses IVconscious sedation. The patient wishes to proceed. I have answered all questions to the patient s satisfaction and the patient has no further questions. documented in this encounterSt. [facility] [place] [facility] Miscellaneous Notes* Telephone Encounter - Harrison Shultz - 11/16/2021 3:05 PM EST 12-24-2021 [facility] documented in this encounterSt. [facility] [place] [facility] History of Present illness Narrative* Joyce Britton, RT(R) - 05/10/2021 8:00 AM EDT Radiology Service Progress Note PATIENT NAME: Amie Killian DATE OF SERVICE: May 10, 2021 TIME: 8:01 AM PATIENT IDENTITY VERIFICATION COMPLETED USING TWO (2) IDENTIFIERS: Name and Date of confirmedby patient verbally. FALL SCREENING: Has the patient had 2 falls in the last year or 1 fall with injury or currently using an Ambulatory Assistive Device (Walker, Cane, Wheelchair, Crutches, etc.)? No PATIENT GENDER DATA: Male PATIENT RELEVANT IMPLANT DATA REVIEWED: Not Applicable RADIOLOGY DEPARTMENT: General X-ray: Exam(s) Completed: Chest X-Ray PERIPHERAL IV DATA: Not applicable SIGNED BY: RT Abi(R) May 10, 2021 8:01 AM documented in this encounterSt. [facility] [place] [facility] History of Past illness Narrative* Problem Noted Date Resolved Date Elevated PSA 10/20/2011 08/06/2014 documented as of this encounter (statuses as of 12/13/2021) [address]09-2012 History of Past illness Narrative* Problem Noted Date Resolved Date Elevated PSA 10/20/2011 08/06/2014 documented as of this encounter (statuses as of 12/24/2021) [facility] [facility] History of Past illness Narrative* Problem Noted Date Resolved Date Elevated PSA 10/20/2011 08/06/2014 documented as of this encounter (statuses as of 12/25/2021) [address]09-2012 History of Past illness Narrative* Problem Noted Date Resolved Date Elevated PSA 10/20/2011 08/06/2014 documented as of this encounter (statuses as of 01/11/2022) [address]09-2012 History of Past illness Narrative* Problem Noted Date Resolved Date Elevated PSA 10/20/2011 08/06/2014 documented as of this encounter (statuses as of 02/22/2022) [facility] [facility] of Past illness Narrative* Problem Noted Date Resolved Date Elevated PSA 10/20/2011 08/06/2014 documented as of this encounter (statuses as of 02/25/2022) [address]09-2012 History of Past illness Narrative* Problem Noted Date Resolved Date Elevated PSA 10/20/2011 08/06/2014 documented as of this encounter (statuses as of 02/25/2022) [facility] [facility] of Past illness Narrative* Problem Noted Date Resolved Date Elevated PSA 10/20/2011 08/06/2014 documented as of this encounter (statuses as of 03/04/2022) [facility] [facility] of [facility] illness Narrative* Problem Noted Date Resolved Date Elevated PSA 10/20/2011 08/06/2014 documented as of this encounter (statuses as of 03/05/2022) [place] [id number] History of Past illness Narrative* Problem Noted Date Resolved Date Elevated PSA 10/20/2011 08/06/2014 documented as of this encounter (statuses as of 03/05/2022) [facility] [facility] of Past illness Narrative* Problem Noted Date Resolved Date Elevated PSA 10/20/2011 08/06/2014 documented as of this encounter (statuses as of 03/05/2022) [address]-2012 History of Past illness Narrative* Problem Noted Date Resolved Date Elevated PSA 10/20/2011 08/06/2014 documented as of this encounter (statuses as of 03/07/2022) [address]09-2012 History of Past illness Narrative* Problem Noted Date Resolved Date Elevated PSA 10/20/2011 08/06/2014 documented as of this encounter (statuses as of 03/08/2022) [address]09-2012 History of Past illness Narrative* Problem Noted Date Resolved Date Elevated PSA 10/20/2011 08/06/2014 documented as of this encounter (statuses as of 03/18/2022) [address]09-2012 History of Past illness Narrative* Problem Noted Date Resolved Date Elevated PSA 10/20/2011 08/06/2014 documented as of this encounter (statuses as of 03/18/2022) [facility] of [facility] Narrative* Problem Noted Date Resolved Date Elevated PSA 10/20/2011 08/06/2014 documented as of this encounter (statuses as of 03/18/2022) [facility] of [facility] illness Narrative* Problem Noted Date Resolved Date Elevated PSA 10/20/2011 08/06/2014 documented as of this encounter (statuses as of 03/28/2022) [address]09-2012 History of Past illness Narrative* Problem Noted Date Resolved Date Elevated PSA 10/20/2011 08/06/2014 documented as of this encounter (statuses as of 04/04/2022) [place] [id number] History of Past illness Narrative* Problem Noted Date Resolved Date Elevated PSA 10/20/2011 08/06/2014 documented as of this encounter (statuses as of 04/05/2022) [address]09-2012 History of Past illness Narrative* Problem Noted Date Resolved Date Elevated PSA 10/20/2011 08/06/2014 documented as of this encounter (statuses as of 04/08/2022) [address]09-2012 History of Past illness Narrative* Problem Noted Date Resolved Date Elevated PSA 10/20/2011 08/06/2014 documented as of this encounter (statuses as of 05/04/2022) [address]09-2012 History of Past illness Narrative* Problem Noted Date Resolved Date Elevated PSA 10/20/2011 08/06/2014 documented as of this encounter (statuses as of 05/04/2022) [address]09-2012 History of Past illness Narrative* Problem Noted Date Resolved Date Elevated PSA 10/20/2011 08/06/2014 documented as of this encounter (statuses as of 05/18/2022) [address]09-2012 History of Past illness Narrative* Problem Noted Date Resolved Date Elevated PSA 10/20/2011 08/06/2014 documented as of this encounter (statuses as of 05/20/2022) [address]09-2012 History of Past illness Narrative* Problem Noted Date Resolved Date Elevated PSA 10/20/2011 08/06/2014 documented as of this encounter (statuses as of 05/20/2022) [address]-2012 History of Past illness Narrative* Problem Noted Date Resolved Date Elevated PSA 10/20/2011 08/06/2014 documented as of this encounter (statuses as of 06/09/2022) [address]09-2012 History of Past illness Narrative* Problem Noted Date Resolved Date Elevated PSA 10/20/2011 08/06/2014 documented as of this encounter (statuses as of 06/10/2022) [address]09-2012 History of Past illness Narrative* Problem Noted Date Resolved Date Elevated PSA 10/20/2011 08/06/2014 documented as of this encounter (statuses as of 06/28/2022) [address]-2012 History of Past illness Narrative* Problem Noted Date Resolved Date Elevated PSA 10/20/2011 08/06/2014 documented as of this encounter (statuses as of 06/29/2022) [address]09-2012 History of Past illness Narrative* Problem Noted Date Resolved Date Elevated PSA 10/20/2011 08/06/2014 documented as of this encounter (statuses as of 07/04/2022) [address]-2012 History of Past illness Narrative* Problem Noted Date Resolved Date Elevated PSA 10/20/2011 08/06/2014 documented as of this encounter (statuses as of 07/04/2022) [address]-2012 History of Past illness Narrative* Problem Noted Date Resolved Date Elevated PSA 10/20/2011 08/06/2014 documented as of this encounter (statuses as of 07/04/2022) [facility]02-09-2012 History of Past illness Narrative* Problem Noted Date Resolved Date Elevated PSA 10/20/2011 08/06/2014 documented as of this encounter (statuses as of 07/15/2022) [address]-2012 History of Past illness Narrative* Problem Noted Date Resolved Date Elevated PSA 10/20/2011 08/06/2014 documented as of this encounter (statuses as of 07/24/2022) [address]09-2012 History of Past illness Narrative* Problem Noted Date Resolved Date Elevated PSA 10/20/2011 08/06/2014 documented as of this encounter (statuses as of 08/11/2022) [address]-2012 History of Past illness Narrative* Problem Noted Date Resolved Date Elevated PSA 10/20/2011 08/06/2014 documented as of this encounter (statuses as of 08/12/2022) [facility]02-09-2012 History of Past illness Narrative* Problem Noted Date Resolved Date Elevated PSA 10/20/2011 08/06/2014 documented as of this encounter (statuses as of 08/12/2022) [address]-2012 History of Past illness Narrative* Problem Noted Date Resolved Date Elevated PSA 10/20/2011 08/06/2014 documented as of this encounter (statuses as of 08/16/2022) [address]09-2012 History of Past illness Narrative* Problem Noted Date Resolved Date Elevated PSA 10/20/2011 08/06/2014 documented as of this encounter (statuses as of 08/30/2022) [facility]02-09-2012 History of Past illness Narrative* Problem Noted Date Resolved Date Elevated PSA 10/20/2011 08/06/2014 documented as of this encounter (statuses as of 08/31/2022) [address]09-2012 History of Past illness Narrative* Problem Noted Date Resolved Date Elevated PSA 10/20/2011 08/06/2014 documented as of this encounter (statuses as of 09/02/2022) [address]09-2012 History of Past illness Narrative* Problem Noted Date Resolved Date Elevated PSA 10/20/2011 08/06/2014 documented as of this encounter (statuses as of 09/04/2022) [address]09-2012 History of Past illness Narrative* Problem Noted Date Resolved Date Elevated PSA 10/20/2011 08/06/2014 documented as of this encounter (statuses as of 09/20/2022) [address]09-2012 History of Past illness Narrative* Problem Noted Date Resolved Date Elevated PSA 10/20/2011 08/06/2014 documented as of this encounter (statuses as of 11/04/2022) [address]-2012 History of Past illness Narrative* Problem Noted Date Resolved Date Elevated PSA 10/20/2011 08/06/2014 documented as of this encounter (statuses as of 11/04/2022) [address]-2012 History of Past illness Narrative* Problem Noted Date Resolved Date Elevated PSA 10/20/2011 08/06/2014 documented as of this encounter (statuses as of 11/23/2022) [address]2012 History of Past illness Narrative* Problem Noted Date Resolved Date Elevated PSA 10/20/2011 08/06/2014 documented as of this encounter (statuses as of 11/25/2022) [address]-2012 History of Past illness Narrative* Problem Noted Date Resolved Date Elevated PSA 10/20/2011 08/06/2014 documented as of this encounter (statuses as of 11/29/2022) [address]-2012 History of Past illness Narrative* Problem Noted Date Resolved Date Elevated PSA 10/20/2011 08/06/2014 documented as of this encounter (statuses as of 11/29/2022) [facility]02-09-2012 History of Past illness Narrative* Problem Noted Date Resolved Date Elevated PSA 10/20/2011 08/06/2014 documented as of this encounter (statuses as of 11/30/2022) [facility]02-09-2012 History of Past illness Narrative* Problem Noted Date Resolved Date Elevated PSA 10/20/2011 08/06/2014 documented as of this encounter (statuses as of 12/21/2022) [address]-2012 History of Past illness Narrative* Problem Noted Date Resolved Date Elevated PSA 10/20/2011 08/06/2014 documented as of this encounter (statuses as of 01/13/2023) [facility]02-09-2012 History of Past illness Narrative* Problem Noted Date Resolved Date Elevated PSA 10/20/2011 08/06/2014 documented as of this encounter (statuses as of 01/13/2023) [facility]02-09-2012 History of Past illness Narrative* Problem Noted Date Resolved Date Elevated PSA 10/20/2011 08/06/2014 documented as of this encounter (statuses as of 02/15/2023) [facility]02-09-2012 History of Past illness Narrative* Problem Noted Date Resolved Date Elevated PSA 10/20/2011 08/06/2014 documented as of this encounter (statuses as of 02/16/2023) [facility]02-09-2012 History of Past illness Narrative* Problem Noted Date Resolved Date Elevated PSA 10/20/2011 08/06/2014 documented as of this encounter (statuses as of 03/02/2023) [facility]02-09-2012 History of Past illness Narrative* Problem Noted Date Resolved Date Elevated PSA 10/20/2011 08/06/2014 documented as of this encounter (statuses as of 03/02/2023) [facility]02-09-2012 History of Past illness Narrative* Problem Noted Date Diagnosed Date Resolved Date Elevated PSA 10/20/2011 08/06/2014 documented as of this encounter (statuses as of 04/28/2023) [facility]02-09-2012 History of Past illness Narrative* Problem Noted Date Diagnosed Date Resolved Date Elevated PSA 10/20/2011 08/06/2014 documented as of this encounter (statuses as of 04/28/2023) [facility]02-09-2012 History of Past illness Narrative* Problem Noted Date Diagnosed Date Resolved Date Elevated PSA 10/20/2011 08/06/2014 documented as of this encounter (statuses as of 05/11/2023) [address]2012 History of Past illness Narrative* Problem Noted Date Diagnosed Date Resolved Date Elevated PSA 10/20/2011 08/06/2014 documented as of this encounter (statuses as of 05/12/2023) [address]2012 History of Past illness Narrative* Problem Noted Date Diagnosed Date Resolved Date Elevated PSA 10/20/2011 08/06/2014 documented as of this encounter (statuses as of 05/16/2023) [facility]02-09-2012 History of Past illness Narrative* Problem Noted Date Diagnosed Date Resolved Date Elevated PSA 10/20/2011 08/06/2014 documented as of this encounter (statuses as of 05/16/2023) [facility]02-09-2012 History of Past illness Narrative* Problem Noted Date Diagnosed Date Resolved Date Elevated PSA 10/20/2011 08/06/2014 documented as of this encounter (statuses as of 05/17/2023) [facility]02-09-2012 History of Past illness Narrative* Problem Noted Date Diagnosed Date Resolved Date Elevated PSA 10/20/2011 08/06/2014 documented as of this encounter (statuses as of 05/23/2023) [facility]02-09-2012 History of Past illness Narrative* Problem Noted Date Diagnosed Date Resolved Date Elevated PSA 10/20/2011 08/06/2014 documented as of this encounter (statuses as of 06/29/2023) [facility]02-09-2012 History of Past illness Narrative* Problem Noted Date Diagnosed Date Resolved Date Elevated PSA 10/20/2011 08/06/2014 documented as of this encounter (statuses as of 07/16/2023) [facility]02-09-2012 History of Past illness Narrative* Problem Noted Date Diagnosed Date Resolved Date Elevated PSA 10/20/2011 08/06/2014 documented as of this encounter (statuses as of 07/16/2023) [facility]02-09-2012 History of Past illness Narrative* Problem Noted Date Diagnosed Date Resolved Date Elevated PSA 10/20/2011 08/06/2014 documented as of this encounter (statuses as of 07/16/2023) [facility] Diagnosis Malignant neoplasm of prostate (HCC)- Primary Malignant neoplasm of prostate [facility] this encounter [facility] Diagnosis History of colonic polyps Personal history of colonic polyps documented in this encounter [facility] Diagnosis Chronic obstructive pulmonary disease, unspecified COPD type (HCC)- Primary Hyperlipidemia, unspecified hyperlipidemia type PAD (peripheral artery disease) (HCC) Peripheral vascular disease, unspecified Tobacco use disorder Malignant neoplasm of prostate (HCC) Malignant neoplasm of prostate Elevated PSA Elevated prostate specific antigen (PSA) Urinary incontinence, unspecified type Internal hemorrhoids Internal hemorrhoids without mention of complication [facility] Peripheral arterial disease (HCC)- Primary Peripheral vascular disease, unspecified [facility] Diagnosis 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 Other malignant lymphomas of intra-abdominal lymph nodes Lesion of liver Other specified disorders of liver Malignant neoplasm of prostate (HCC) Malignant neoplasm of prostate [facility] Diagnosis Diffuse large B-cell lymphoma of intra-abdominal lymph nodes (HCC) Other malignant lymphomas of intra-abdominal lymph nodes Malignant neoplasm of prostate (HCC) Malignant neoplasm of prostate Bone metastasis (HCC) Secondary malignant neoplasm of bone and bone marrow [facility] Malignant neoplasm of prostate (HCC) Malignant neoplasm of prostate Diffuse large B-cell lymphoma of intra-abdominal lymph nodes (HCC) Other malignant lymphomas of intra-abdominal lymph nodes [facility] Malignant neoplasm of prostate (HCC) Malignant neoplasm of prostate [facility] Diagnosis Malignant neoplasm of prostate (HCC)- Primary Malignant neoplasm of prostate [facility] Diagnosis Bone metastasis (HCC)- Primary 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) Other malignant lymphomas of intra-abdominal lymph nodes Malignant neoplasm of prostate (HCC) Malignant neoplasm of prostate [facility] Diagnosis 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 Other malignant lymphomas of intra-abdominal lymph nodes Malignant neoplasm of prostate (HCC) Malignant neoplasm of prostate Bone metastasis (HCC) Secondary malignant neoplasm of bone and bone marrow [facility] Bone metastasis (HCC)- Primary 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) Other malignant lymphomas of intra-abdominal lymph nodes Malignant neoplasm of prostate (HCC) Malignant neoplasm of prostate [facility] Diagnosis 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 Other malignant lymphomas of intra-abdominal lymph nodes Bone metastasis (HCC) Secondary malignant neoplasm of bone and bone marrow Prostate cancer (HCC) Malignant neoplasm of prostate [facility] 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 Other malignant lymphomas of intra-abdominal lymph nodes Bone metastasis (HCC) Secondary malignant neoplasm of bone and bone marrow Malignant neoplasm of prostate (HCC) Malignant neoplasm of prostate [facility] Diffuse large B-cell lymphoma of intra-abdominal lymph nodes (HCC) Other malignant lymphomas of intra-abdominal lymph nodes Bone metastasis (HCC) Secondary malignant neoplasm of bone and bone marrow Malignant neoplasm of prostate (HCC) Malignant neoplasm of prostate [facility] Diagnosis 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 Other malignant lymphomas of intra-abdominal lymph nodes Lesion of liver Other specified disorders of liver Prostate cancer (HCC) Malignant neoplasm of prostate [facility] Bone metastasis (HCC)- Primary Secondary malignant neoplasm of bone and bone marrow Prostate cancer (HCC) Malignant neoplasm of prostate Diffuse large B-cell lymphoma of intra-abdominal lymph nodes (HCC) Other malignant lymphomas of intra-abdominal lymph nodes [facility] Diagnosis Diffuse large B-cell lymphoma of intra-abdominal lymph nodes (HCC) Other malignant lymphomas of intra-abdominal lymph nodes Bone metastasis (HCC) Secondary malignant neoplasm of bone and bone marrow Prostate cancer (HCC) Malignant neoplasm of prostate [facility] Diagnosis 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 Other malignant lymphomas of intra-abdominal lymph nodes Bone metastasis (HCC) Secondary malignant neoplasm of bone and bone marrow Prostate cancer (HCC) Malignant neoplasm of prostate Langerhans cell histiocytoses (HCC) Other specified disorders of metabolism [facility] Tobacco abuse Tobacco use disorder [facility] Diagnosis Chronic obstructive pulmonary disease, unspecified COPD type (HCC) [facility] Diagnosis Chronic obstructive pulmonary disease, unspecified COPD type (HCC)- Primary Langerhans cell histiocytoses (HCC) Other specified disorders of metabolism Diffuse large B-cell lymphoma of intra-abdominal lymph nodes (HCC) Other malignant lymphomas of intra-abdominal lymph nodes Prostate cancer (HCC) Malignant neoplasm of prostate PAD (peripheral artery disease) (HCC) Peripheral vascular disease, unspecified Hyperlipidemia, unspecified hyperlipidemia type Tobacco use disorder Skin lesion Unspecified disorder of skin and subcutaneous tissue [facility] Diagnosis 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 Other malignant lymphomas of intra-abdominal lymph nodes [facility] Diagnosis Diffuse large B-cell lymphoma of intra-abdominal lymph nodes (HCC) Other malignant lymphomas of intra-abdominal lymph nodes Bone metastasis (HCC) Secondary malignant neoplasm of bone and bone marrow Prostate cancer (HCC) Malignant neoplasm of prostate Langerhans cell histiocytoses (HCC) Other specified disorders of metabolism [facility] Diagnosis 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 Other malignant lymphomas of intra-abdominal lymph nodes Lesion of liver Other specified disorders of liver Prostate cancer (HCC) Malignant neoplasm of prostate [facility] Diagnosis 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 Other malignant lymphomas of intra-abdominal lymph nodes Prostate cancer (HCC) Malignant neoplasm of prostate Bone metastasis (HCC) Secondary malignant neoplasm of bone and bone marrow [facility] Diagnosis Peripheral arterial disease (HCC) Peripheral vascular disease, unspecified [facility] Diagnosis Bone metastasis (HCC)- Primary 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) Other malignant lymphomas of intra-abdominal lymph nodes Prostate cancer (HCC) Malignant neoplasm of prostate [facility] Diagnosis Bone metastasis (HCC)- Primary Secondary malignant neoplasm of bone and bone marrow Prostate cancer (HCC) Malignant neoplasm of prostate [facility] Diagnosis Prostate cancer (HCC)- Primary Malignant neoplasm of prostate [facility] Diagnosis 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 Other malignant lymphomas of intra-abdominal lymph nodes Lesion of liver Other specified disorders of liver Prostate cancer (HCC) Malignant neoplasm of prostate [facility] Diagnosis 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 Other malignant lymphomas of intra-abdominal lymph nodes Prostate cancer (HCC) Malignant neoplasm of prostate Bone metastasis (HCC) Secondary malignant neoplasm of bone and bone marrow [facility] Diagnosis Bone metastasis (HCC)- Primary Secondary malignant neoplasm of bone and bone marrow Prostate cancer (HCC) Malignant neoplasm of prostate [facility] Diagnosis 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 Other malignant lymphomas of intra-abdominal lymph nodes Prostate cancer (HCC) Malignant neoplasm of prostate Langerhans cell histiocytoses (HCC) Other specified disorders of metabolism [facility] Diagnosis Malignant neoplasm of prostate (HCC)- Primary Malignant neoplasm of prostate [facility] Diagnosis Chronic obstructive pulmonary disease, unspecified COPD type (HCC)- Primary Hyperlipidemia, unspecified hyperlipidemia type PAD (peripheral artery disease) (HCC) Peripheral vascular disease, unspecified Tobacco use disorder Prostate cancer (HCC) Malignant neoplasm of prostate Diffuse large B-cell lymphoma of intra-abdominal lymph nodes (HCC) Other malignant lymphomas of intra-abdominal lymph nodes Skin lesion Unspecified disorder of skin and subcutaneous tissue Protein-calorie malnutrition, unspecified severity (HCC) Malignant neoplasm metastatic to bone (HCC) Secondary malignant neoplasm of bone and bone marrow [facility] Diagnosis 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 Other malignant lymphomas of intra-abdominal lymph nodes Prostate cancer (HCC) Malignant neoplasm of prostate Langerhans cell histiocytoses (HCC) Other specified disorders of metabolism [facility] Diagnosis Diffuse large B-cell lymphoma of intra-abdominal lymph nodes (HCC) Other malignant lymphomas of intra-abdominal lymph nodes Prostate cancer (HCC) Malignant neoplasm of prostate Langerhans cell histiocytoses (HCC) Other specified disorders of metabolism [facility] Diagnosis 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 Other malignant lymphomas of intra-abdominal lymph nodes Prostate cancer (HCC) Malignant neoplasm of prostate Malignant neoplasm metastatic to bone (HCC) Secondary malignant neoplasm of bone and bone marrow [facility] Diagnosis Malignant neoplasm metastatic to bone (HCC)- Primary 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) Other malignant lymphomas of intra-abdominal lymph nodes Prostate cancer (HCC) Malignant neoplasm of prostate [facility] Diagnosis 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 Other malignant lymphomas of intra-abdominal lymph nodes Lesion of liver Other specified disorders of liver Prostate cancer (HCC) Malignant neoplasm of prostate [facility] Diagnosis Prostate cancer (HCC) Malignant neoplasm of prostate [facility] Diagnosis Diffuse large B-cell lymphoma of intra-abdominal lymph nodes (HCC) Other malignant lymphomas of intra-abdominal lymph nodes Prostate cancer (HCC) Malignant neoplasm of prostate Malignant neoplasm metastatic to bone (HCC) Secondary malignant neoplasm of bone and bone marrow Langerhans cell histiocytoses (HCC) Other specified disorders of metabolism [facility] Diagnosis 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 Other malignant lymphomas of intra-abdominal lymph nodes Prostate cancer (HCC) Malignant neoplasm of prostate Malignant neoplasm metastatic to bone (HCC) Secondary malignant neoplasm of bone and bone marrow Langerhans cell histiocytoses (HCC) Other specified disorders of metabolism [facility] Diagnosis Pain of right thigh- Primary Pain in limb [facility] Diagnosis Pain of right thigh Pain in limb [facility] Diagnosis Chronic obstructive pulmonary disease, unspecified COPD type (HCC) [facility] Diagnosis Diffuse large B-cell lymphoma of intra-abdominal lymph nodes (HCC) Other malignant lymphomas of intra-abdominal lymph nodes Prostate cancer (HCC) Malignant neoplasm of prostate Malignant neoplasm metastatic to bone (HCC) Secondary malignant neoplasm of bone and bone marrow [facility] Diagnosis Prostate cancer (HCC) Malignant neoplasm of prostate Malignant neoplasm metastatic to bone (HCC) Secondary malignant neoplasm of bone and bone marrow [facility] Diagnosis Diffuse large B-cell lymphoma of intra-abdominal lymph nodes (HCC) Other malignant lymphomas of intra-abdominal lymph nodes Bone metastasis Secondary malignant neoplasm of bone and bone marrow Prostate cancer (HCC) Malignant neoplasm of prostate Langerhans cell histiocytoses (HCC) Other specified disorders of metabolism [facility] Diagnosis Chronic obstructive pulmonary disease, unspecified COPD type (HCC)- Primary Internal hemorrhoids Internal hemorrhoids without mention of complication Hyperlipidemia, unspecified hyperlipidemia type PAD (peripheral artery disease) (HCC) Peripheral vascular disease, unspecified Protein-calorie malnutrition, unspecified severity (HCC) Malignant neoplasm metastatic to bone (HCC) Secondary malignant neoplasm of bone and bone marrow Prostate cancer (HCC) Malignant neoplasm of prostate Diffuse large B-cell lymphoma of intra-abdominal lymph nodes (HCC) Other malignant lymphomas of intra-abdominal lymph nodes Skin lesion Unspecified disorder of skin and subcutaneous tissue Locking finger joint Unspecified derangement of hand joint Sensation of cold in finger Other symptoms involving skin and integumentary tissues Tobacco use disorder [facility] Diagnosis Malignant neoplasm metastatic to bone (HCC)- Primary 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) Other malignant lymphomas of intra-abdominal lymph nodes Prostate cancer (HCC) Malignant neoplasm of prostate Langerhans cell histiocytoses (HCC) Other specified disorders of metabolism [facility] Diagnosis 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 Other malignant lymphomas of intra-abdominal lymph nodes Lesion of liver Other specified disorders of liver Prostate cancer (HCC) Malignant neoplasm of prostate [facility] Diagnosis Diffuse large B-cell lymphoma of intra-abdominal lymph nodes (HCC) Other malignant lymphomas of intra-abdominal lymph nodes Prostate cancer (HCC) Malignant neoplasm of prostate Malignant neoplasm metastatic to bone (HCC) Secondary malignant neoplasm of bone and bone marrow Langerhans cell histiocytoses (HCC) Other specified disorders of metabolism [facility] Diagnosis Malignant neoplasm metastatic to bone (HCC)- Primary Secondary malignant neoplasm of bone and bone marrow [facility] Diagnosis Malignant neoplasm metastatic to bone (HCC)- Primary Secondary malignant neoplasm of bone and bone marrow Prostate cancer (HCC) Malignant neoplasm of prostate Diffuse large B-cell lymphoma of intra-abdominal lymph nodes (HCC) Other malignant lymphomas of intra-abdominal lymph nodes Lesion of liver Other specified disorders of liver [facility] Diagnosis Malignant neoplasm metastatic to bone (HCC)- Primary Secondary malignant neoplasm of bone and bone marrow [facility] Diagnosis Peripheral arterial disease (HCC)- Primary Peripheral vascular disease, unspecified [facility] Diagnosis Malignant neoplasm metastatic to bone (HCC) Secondary malignant neoplasm of bone and bone marrow [facility] Diagnosis Prostate cancer (HCC)- Primary Malignant neoplasm of prostate Diffuse large B-cell lymphoma of intra-abdominal lymph nodes (HCC) Other malignant lymphomas of intra-abdominal lymph nodes Lesion of liver Other specified disorders of liver Malignant neoplasm metastatic to bone (HCC) Secondary malignant neoplasm of bone and bone marrow [facility] Diagnosis Chronic obstructive pulmonary disease, unspecified COPD type (HCC)- Primary Hyperlipidemia, unspecified hyperlipidemia type PAD (peripheral artery disease) (HCC) Peripheral vascular disease, unspecified Tobacco use disorder Prostate cancer (HCC) Malignant neoplasm of prostate Diffuse large B-cell lymphoma of intra-abdominal lymph nodes (HCC) Other malignant lymphomas of intra-abdominal lymph nodes Dizziness Dizziness and giddiness Weight loss Loss of weight Elevated glucose Other abnormal glucose [facility] Diagnosis Malignant neoplasm metastatic to bone (HCC)- Primary Secondary malignant neoplasm of bone and bone marrow Elevated glucose Other abnormal glucose [facility] Diagnosis Prostate cancer (HCC)- Primary Malignant neoplasm of prostate Malignant neoplasm metastatic to bone (HCC) 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) Other malignant lymphomas of intra-abdominal lymph nodes Lesion of liver Other specified disorders of liver [facility] Diagnosis 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 Other malignant lymphomas of intra-abdominal lymph nodes Hypokalemia Hypopotassemia Lymphoma of intra-abdominal lymph nodes, unspecified lymphoma type (HCC) 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) Elevated liver transaminase level Pain Generalized pain History of hepatitis C Personal history of other infectious and parasitic disease Pain of right thigh Pain in limb [facility] Diagnosis 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) Elevated liver transaminase level Pain Generalized pain History of hepatitis C Personal history of other infectious and parasitic disease Prostate cancer (HCC)- Primary Malignant neoplasm of prostate Diffuse large B-cell lymphoma of intra-abdominal lymph nodes (HCC) Other malignant lymphomas of intra-abdominal lymph nodes Lesion of liver Other specified disorders of liver documented in this encounter [facility] note* Diagnosis 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 Other malignant lymphomas of intra-abdominal lymph nodes Hypokalemia Hypopotassemia Lymphoma of intra-abdominal lymph nodes, unspecified lymphoma type (HCC) 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) Elevated liver transaminase level Pain Generalized pain History of hepatitis C Personal history of other infectious and parasitic disease Chronic obstructive pulmonary disease, unspecified COPD type (HCC)- Primary Hyperlipidemia, unspecified hyperlipidemia type PAD (peripheral artery disease) (HCC) Peripheral vascular disease, unspecified Elevated glucose Other abnormal glucose Prostate cancer (HCC) Malignant neoplasm of prostate Diffuse large B-cell lymphoma of intra-abdominal lymph nodes (HCC) Other malignant lymphomas of intra-abdominal lymph nodes Malignant neoplasm metastatic to bone (HCC) Secondary malignant neoplasm of bone and bone marrow Tobacco use disorder Internal hemorrhoids Internal hemorrhoids without mention of complication documented in this encounter [facility] note* Diagnosis 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 Other malignant lymphomas of intra-abdominal lymph nodes Hypokalemia Hypopotassemia Lymphoma of intra-abdominal lymph nodes, unspecified lymphoma type (HCC) 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) Elevated liver transaminase level Pain Generalized pain History of hepatitis C Personal history of other infectious and parasitic disease Chronic obstructive pulmonary disease, unspecified COPD type (HCC) Tobacco use disorder documented in this encounter [facility] note* Diagnosis 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 Other malignant lymphomas of intra-abdominal lymph nodes Hypokalemia Hypopotassemia Lymphoma of intra-abdominal lymph nodes, unspecified lymphoma type (HCC) 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) Elevated liver transaminase level Pain Generalized pain History of hepatitis C Personal history of other infectious and parasitic disease Peripheral arterial disease (HCC) Peripheral vascular disease, unspecified documented in this encounter [facility] note* Diagnosis 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) Elevated liver transaminase level Pain Generalized pain History of hepatitis C Personal history of other infectious and parasitic disease Lesion of liver Other specified disorders of liver Diffuse large B-cell lymphoma of intra-abdominal lymph nodes (HCC) Other malignant lymphomas of intra-abdominal lymph nodes documented in this encounter [facility] note* Diagnosis 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 Other malignant lymphomas of intra-abdominal lymph nodes Hypokalemia Hypopotassemia Lymphoma of intra-abdominal lymph nodes, unspecified lymphoma type (HCC) 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) Elevated liver transaminase level Pain Generalized pain History of hepatitis C Personal history of other infectious and parasitic disease Hyperlipidemia, unspecified hyperlipidemia type- Primary Tobacco use disorder Chronic obstructive pulmonary disease, unspecified COPD type (HCC) Prostate cancer (HCC) Malignant neoplasm of prostate PAD (peripheral artery disease) Peripheral vascular disease, unspecified Diffuse large B-cell lymphoma of intra-abdominal lymph nodes (HCC) Other malignant lymphomas of intra-abdominal lymph nodes Urinary incontinence, unspecified type Elevated glucose Other abnormal glucose Malignant neoplasm metastatic to bone (HCC) Secondary malignant neoplasm of bone and bone marrow documented in this encounter [facility] note* Diagnosis Onset Date Resolution Status Admit Date Acute chest pain acute February 1:59pm Acute inferior myocardial infarction acute February 18, 2025 1:59pm History of prostate cancer acute February 18, 2025 1:59pm History of COPD chronic February 1:59pm [facility] Work Phone: Reason for referral (narrative)* Outpatient Procedure (Routine) - Closed Specialty Diagnoses / Procedures Referred By Contac t Referred To Contact [facility] Diagnoses History of colonic polyps Procedures COLONOSCOPY SCREENING COLONOSCOPY FLX DX W/COLLJ SPEC WHEN Reena Loya MD [address] [place] [address] [facility] [address] [place] [address] Referral ID Status Reason Start Date Expiration Date V isits Requested Visits Authorized [id number] Closed Auto-Generate d Referral 12/24/2021 01/23/2022 1 1 [facility] for referral (narrative)* Outpatient Procedure (Routine) - Pending Review Specialty Diagnoses / Procedures Referred By Contac t Referred [facility] Diagnoses Peripheral arterial disease (HCC) Procedures PVR LEG W/EXC [facility] N-INVAS PHYSIOLOGIC STD LXTR ART COMPL BI Amanda Corona DO [address] [place] [address] [facility] [address] [place] [address] Referral ID Status Reason Start Date Expiration Date Visits Requested Visits Authorized [id number] Pending Review Auto-Generat ed Referral 02/22/2022 02/22/2023 1 1 T [facility] for referral (narrative)* Diagnostic Procedure Only (Routine) - Closed Specialty Diagnoses / Procedures Referred By Contac t Referred To Contact [facility] Diagnoses Malignant neoplasm of prostate (HCC) Procedures NM BONE WHOLE BODY BONE &/JOINT IMAGING WHOLE BODY Sean Rodriguez MD [address] [place] [address] [facility] [address] [place] [address] Referral ID Status Reason Start Date Expiration Date V isits Requested Visits Authorized [id number] Closed Auto-Generate d Referral 03/04/2022 01/01/2023 1 1 T [facility] for referral (narrative)* Diagnostic Procedure Only (Routine) - Authorized Specialty Diagnoses / Procedures Referred By Contac t Referred To Contact [facility] Diagnoses Prostate cancer (HCC) Bone metastasis (HCC) Procedures NM BONE WHOLE BODY BONE &/JOINT IMAGING WHOLE BODY Sean Rodriguez MD [address] [place] [address] [facility] [address] [place], [place] [id number] Referral ID Status Reason Start Date Expiration Date Visits Requested Visits Authorized [id number] Authorized Auto-Generat ed Referral 02/27/2023 09/28/2023 1 1 * MRI/CT (Routine) - Pending Review Specialty Diagnoses / Procedures Referred By Contac t Referred To Contact CT IMAGING Diagnoses Diffuse large B-cell lymphoma of intra-abdominal lymph nodes (HCC) Prostate cancer (HCC) Bone metastasis (HCC) Procedures CT ABD/PEL W IVCON CT ABD & PELVIS W/CONTRAST Sean Rodriguez MD [address] [place] [address] Ct Imaging Referral ID Status Reason Start Date Expiration Date Visits Requested Visits Authorized [id number] Pending Review Auto-Generat ed Referral 02/27/2023 09/28/2023 1 1 [facility] for referral (narrative)* Diagnostic Procedure Only (Urgent) - Closed Specialty Diagnoses / Procedures Referred By Contac t Referred To Contact US IMAGING Diagnoses Pain of right thigh Procedures US DVT LOWER RIGHT DUP-SCAN XTR VEINS UNILATERAL/LIMITED STUDY Cydney Wolf APRN.[employer] [address] [place] [address] [place] [address] Referral ID Status Reason Start Date Expiration Date V isits Requested Visits Authorized [id number] Closed Auto-Generate d Referral 05/16/2023 06/14/2024 1 1 * Diagnostic Procedure Only (Urgent) - Closed Specialty Diagnoses / Procedures Referred By Contac t Referred To Contact XR IMAGING Diagnoses Pain of right thigh Procedures XR FEMUR GENERAL 2V AP/LAT RIGHT RADIOLOGIC EXAMINATION FEMUR MINIMUM 2 VIEWS Cydney Wolf APRN.[employer] [address] [place] [address] [place] [address] Referral ID Status Reason Start Date Expiration Date V isits Requested Visits Authorized [id number] Closed Auto-Generate d Referral 05/16/2023 06/14/2024 1 1 [facility] for referral (narrative)* Diagnostic Procedure Only (Urgent) - Closed Specialty Diagnoses / Procedures Referred By Contac t Referred To Contact US IMAGING Diagnoses Pain of right thigh Procedures US DVT LOWER RIGHT DUP-SCAN XTR VEINS UNILATERAL/LIMITED STUDY Cydney Wolf APRN.CNP [address] [place] [address] [facility] Imaging [facility] Referral ID Status Reason Start Date Expiration Date V isits Requested Visits Authorized [id number] Closed Auto-Generate d Referral 05/16/2023 06/14/2024 1 1 [facility] for referral (narrative)* Diagnostic Procedure Only (Routine) - Closed Specialty Diagnoses / Procedures Referred By Contact Referred To Contact [facility] Diagnoses Prostate cancer (HCC) Bone metastasis Procedures NM BONE WHOLE BODY BONE &/JOINT IMAGING WHOLE BODY Sean Rodriguez MD [address] [place] [address] Molecular & Functional Imaging [address] [place] [address] Referral ID Status Reason Start Date Expiration Date V isits Requested Visits Authorized [id number] Closed Auto-Generate d Referral 02/27/2023 09/28/2023 1 1 [facility] for referral (narrative)* Outpatient Procedure (Routine) - Authorized Specialty Diagnoses / Procedures Referred By Contac t Referred To Contact [facility] Diagnoses Peripheral arterial disease (HCC) Procedures PVR ANK/VEGA/TOE [facility] NON-INVAS PHYSIOLOGIC STD EXTREMITY ART 2 LEVEL Amanda Corona DO [address] [place] [address] [facility] [address] [place] [address] Referral ID Status Reason Start Date Expiration Date Visits Requested Visits Authorized [id number] Authorized Auto-Generat ed Referral 11/28/2023 11/27/2024 1 1 [facility] for referral (narrative)* Diagnostic Procedure Only (Urgent) - Closed Specialty Diagnoses / Procedures Referred By Noam collins Referred To Contact XR IMAGING Diagnoses Pain of right thigh Procedures XR FEMUR GENERAL 2V AP/LAT RIGHT RADIOLOGIC EXAMINATION FEMUR MINIMUM 2 VIEWS Cydney Wolf APRN.CNP [address] [place] [address] X[facility] Imaging [facility] Referral ID Status Reason Start Date Expiration Date V isits Requested Visits Authorized [id number] Closed Auto-Generate d Referral 05/16/2023 06/14/2024 1 1 [facility] for referral (narrative)* Outpatient Procedure (Routine) - Authorized Specialty Diagnoses / Procedures Referred By Noam collins Referred To Contact [facility] Diagnoses Chronic obstructive pulmonary disease, unspecified COPD type (HCC) Tobacco use disorder Procedures SPIROMETRY - BASELINE AND POST DILATOR BRNCDILAT RSPSE SPMTRY PRE&POST-BRNCDILAT ADMApollo Gray MD [address] [place] [address] Respiratory Pierre Part [address] [place] [address] Referral ID Status Reason Start Date Expiration Date Visits Requested Visits Authorized [id number] Authorized Auto-Generat ed Referral 07/16/2024 08/15/2025 1 1 [facility] for referral (narrative)No reason for [facility]: Reason for visit Narrative* Outpatient Procedure (Routine) - Closed Specialty Diagnoses / Procedures Referred By Noam collins Referred To Contact [facility] Diagnoses History of colonic polyps Procedures COLONOSCOPY SCREENING COLONOSCOPY FLX DX W/COLLJ SPEC WHEN PFRMD Reena Kenny MD [address] [place] [address] [facility] [address] [place] [address] Referral ID Status Reason Start Date Expiration Date V isits Requested Visits Authorized [id number] Closed Auto-Generate d Referral 12/24/2021 01/23/2022 1 1 [facility] for visit Narrative* Diagnostic Procedure Only (Routine) - Closed Specialty Diagnoses / Procedures Referred By Contac t Referred To Contact MOLECULAR & FUNCTIONAL IMAGING Diagnoses Malignant neoplasm of prostate (HCC) Procedures NM BONE WHOLE BODY BONE &/JOINT IMAGING WHOLE BODY Sean Rodriguez MD [address] [place] [address] Molecular & Functional Imaging [address] [place] [address] Referral ID Status Reason Start Date Expiration Date V isits Requested Visits Authorized [id number] Closed Auto-Generate d Referral 03/04/2022 01/01/2023 1 1 [facility] for visit Narrative* Diagnostic Procedure Only (Urgent) - Closed Specialty Diagnoses / Procedures Referred By Contac t Referred To Contact US IMAGING Diagnoses Pain of right thigh Procedures US DVT LOWER RIGHT DUP-SCAN XTR VEINS UNILATERAL/LIMITED STUDY Cydney Wolf APRN.CANDY SPREADER HELPER [address] [place] [address] [place] [address] Referral ID Status Reason Start Date Expiration Date V isits Requested Visits Authorized [id number] Closed Auto-Generate d Referral 05/16/2023 06/14/2024 1 1 [facility] for visit Narrative* Diagnostic Procedure Only (Urgent) - Closed Specialty Diagnoses / Procedures Referred By Contac t Referred To Contact XR IMAGING Diagnoses Pain of right thigh Procedures XR FEMUR GENERAL 2V AP/LAT RIGHT RADIOLOGIC EXAMINATION FEMUR MINIMUM 2 VIEWS Cydney Wolf APRN.CANDY SPREADER HELPER [address] [place] [address] [place] [address] Referral ID Status Reason Start Date Expiration Date V isits Requested Visits Authorized [id number] Closed Auto-Generate d Referral 05/16/2023 06/14/[address] 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 anation Advance Directive(s) 10/20/2020 2:46 PM Date Activated Date Inactivated Comments 07/14/2020 8:30 AM 07/15/2020 6:43 PM Question Answer Comments DNR Order Discussed With: Patient Documents on File Type Date Recorded Patient 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 Specialist 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 anation Advance Directive(s) 10/20/2020 2:46 PM Latest Code Status on File Code Status Date Activated Date Inactivated Comments DNR-CC 07/14/2020 8:30 AM 07/15/2020 6:43 PM DNR Order Discussed With: Patient Latest Code Status on File Code Status Date Activated Date Inactivated Comments Full Code 07/07/2020 10:17 PM Documents on File Type Date Recorded Patient 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 Specialist Expl anation Advance Directive(s) 08/26/2021 12:54 PM Advance Directive(s) 08/17/2021 2:55 PM Advance Directive(s) 06/30/2021 10:21 AM Advance Directive(s) 10/20/2020 2:46 PM Advance Directive(s) 07/30/2020 6:16 AM Advance Directive(s) 02/15/2016 7:37 AM Documents on File Type Date Recorded Patient 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 Specialist 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 anation Advance Directive(s) 12/24/2021 10:05 AM Advance Directive(s) 08/26/2021 12:54 PM Advance Directive(s) 08/17/2021 2:55 PM Advance Directive(s) 06/30/2021 10:21 AM Advance Directive(s) 10/20/2020 2:46 PM Advance Directive(s) 07/30/2020 6:16 AM Advance Directive(s) 02/15/2016 7:37 AM Documents on File Type Date Recorded Patient 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 Specialist 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 anation Advance Directive(s) 12/24/2021 10:05 AM Advance Directive(s) 08/26/2021 12:54 PM Advance Directive(s) 08/17/2021 2:55 PM Advance Directive(s) 06/30/2021 10:21 AM Advance Directive(s) 10/20/2020 2:46 PM Advance Directive(s) 07/30/2020 6:16 AM Advance Directive(s) 02/15/2016 7:37 AM Latest Code Status on File Code Status Date Activated Date Inactivated Comments DNR-CC 07/14/2020 8:30 AM 07/15/2020 6:43 PM Latest Code Status on File Code Status Date Activated Date Inactivated Comments DNR-CC 07/14/2020 8:30 AM 07/15/2020 6:43 PM Question Answer Comments DNR Order Discussed With: Patient Latest Code Status on File Code Status Date Activated Date Inactivated Comments DNR-CC 07/14/2020 8:30 AM 07/15/2020 6:43 PM Question Answer Comments DNR Order Discussed With: Patient Latest Code Status on File Code Status Date Activated Date Inactivated Comments DNR-CC 07/14/2020 8:30 AM 07/15/2020 6:43 PM Question Answer Comments DNR Order Discussed With: Patient Date Activated Date Inactivated Comments 07/14/2020 8:30 AM 07/15/2020 6:43 PM Question Answer Comments DNR Order Discussed With: Patient Advance Directive Response Recorded Date/ Time Do you have a Healthcare Power of Marshmallow Runner? No February 18, 2025 2:26pm History of Present Illness * Juanpablo Corado MD - 07/08/2020 3:41 PM EDT [facility] Consult Note Reason for Consult: Pancreatic mass CHIEF COMPLAINT: Abdominal pain History Obtained From: patient HISTORY OF PRESENT ILLNESS: Patient is a 65-year-old gentleman with obstructive jaundice. Patient has past medical history of prostate cancer status post prostatectomy. He was shown to have jaundice with abdominal pain. Computed axial tomography scan showed an 8 cm mass in the head of the pancreas along with the mass at the herman hepatis. The patient states he had a biopsy performed on July 03. Results of which are pending. Past Medical History: has a past medical history of COPD (chronic obstructive pulmonary disease) (HCC), Hemorrhoids, HLD (hyperlipidemia), Hypertension, Osteopenia, Prostate cancer (HCC), Rectourethral fistula, and Tobacco abuse. Past Surgical History: Past Surgical History: Procedure Laterality Date APPENDECTOMY PROSTATECTOMY TONSILLECTOMY Current Medications: Current Facility-Administered Medications Medication Dose Route Frequency Provider Last Rate Last Dose nicotine (NICODERM CQ) 21 MG/24HR 1 patch 1 patch Transdermal Daily Gurvinder Jolly MD sodium chloride flush 0.9 % injection 10 mL 10 mL Intravenous 2 times per day Gurvinder Jolly MD 10 mL at 07/07/202256 sodium chloride flush 0.9 % injection 10 mL 10 mL Intravenous PRN Gurvinder Jolly MD polyethylene glycol (GLYCOLAX) packet 17 g 17 g Oral Daily PRN Gurvinder Jolly MD promethazine (PHENERGAN) tablet 12.5 mg 12.5 mg Oral Q6H PRN Gurvinder Jolly MD Or ondansetron (ZOFRAN) injection 4 mg 4 mg Intravenous Q6H PRN Gurvinder Jolly MD enoxaparin (LOVENOX) injection 40 mg 40 mg Subcutaneous Daily Gurvinder Jolly MD lactated ringers infusion Intravenous Continuous Gurvinder Jolly MD 75 mL/hr at 07/07/202253 labetalol (NORMODYNE;TRANDATE) injection 10 mg 10 mg Intravenous Q6H PRN Gurvinder Jolly MD 10 mg at 07/08/20 1026 mometasone-formoterol (DULERA) 200-5 MCG/ACT inhaler 2 puff 2 puff Inhalation BID Gurvinder Jolly MD 2 puff at 07/08/20 1027 ipratropium-albuterol (DUONEB) nebulizer solution 1 ampule 1 ampule Inhalation Q4H PRN Gurvinder Jolly MD oxyCODONE (ROXICODONE) immediate release tablet 5 mg 5 mg Oral Q6H PRN Gurvinder Jolly MD Or oxyCODONE (ROXICODONE) immediate release tablet 10 mg 10 mg Oral Q6H PRN Gurvinder Jolly MD 10 mg at 07/08/20 1026 melatonin tablet 3 mg 3 mg Oral Nightly Gurvinder Jolly MD 3 mg at 07/07/20 225 Allergies: No Known Allergies Social History: reports that he has been smoking cigarettes. He has a 40.00 pack-year smoking history. He has neverused smokeless tobacco. He reports previous alcohol use. He reports previous drug use. Family History: family history includes Heart Attack in his father; Heart Disease in his father; Stroke in his mother. REVIEW OF SYSTEMS: Constitutional: Jaundice, abdominal pain Eyes: Scleral icterus ENT: No Headaches, hearing loss or vertigo. No mouth sores or sore throat. Cardiovascular: Dyspnea on exertion Respiratory: Shortness of breath Gastrointestinal: Abdominal pain Genitourinary: Dark colored urine Musculoskeletal: No generalized weakness. No joint complaints. Integumentary: Jaundice Neurological: No headache, diplopia. No change in gait, balance, or coordination. No focal neurological deficits including weakness, numbness, or tingling. Endocrine: No temperature intolerance. No excessive thirst, fluid intake, or urination. Hematologic/Lymphatic: No abnormal bruising or ecchymoses, blood clots or swollen lymph nodes. Allergic/Immunologic: No nasal congestion or hives. PHYSICAL EXAM: Vitals: Vitals: 07/08/20 1236 BP: (!) 165/90 Pulse: 77 Resp: 16 Temp: 97.1 F (36.2 C) SpO2: 95% CONSTITUTIONAL: awake, alert, appears fatigued EYES: Scleral icterus ENT: normocepalic, without obvious abnormality, atramatic MUSCULOSKELETAL: full range of motion noted, tone is normal EXTREMITIES: no LE edema NEUROLOGIC: Awake, alert, oriented to name, place and time. Motor skills grossly intact. SKIN: Jaundice DATA: General Labs: CBC: Recent Labs 07/08/20 0346 WBC 7.4 HGB 13.0 HCT 38.3* MCV 93.7 PLT 208 BMP: Recent Labs 07/08/20 0346 NA 139 139 K 3.6 3.5 CL 103 103 CO2 26 27 BUN 12 12 CREATININE 0.78 0.79 LIVER PROFILE: Recent Labs 07/08/20 0346 AST 139* 136* ALT 274* 267* BILIDIR 3.9* BILITOT 7.1* 7.0* ALKPHOS 227* 227* PT/INR: Lab Results Component Value Date PROTIME 11.1 07/08/2020 INR 1.0 07/08/2020 PTT: No results found for: APTT Magnesium: No results found for: MG Imaging: Ct Chest Abdomen Pelvis W Contrast Result Date: 07/08/2020 Patient Name: AMIE KILLIAN ---CT--- Exam Date/Time 07/08/2020 06:35:[address] Chest/Abdomen/Pelvis (IV Only) Ordering Physician Shauna CROUCH SARAH Accession Number [id number] CPT4 Codes 71397 (CT Chest/Abdomen/Pelvis (IV Only)), 83156 (CT Chest w/ Contrast), Q9967 (CT ISOVUE 370MG/ML&[id number]&ML&1) Reason For Exam Obstructive jaundice Rep ort CHEST CT WITH IV CONTRAST History: Obstructive jaundice, concern for metastasis Comparison CT: None available Technique: Multislice volume acquisition axial CT sections were obtained from the chest apex to the diaphragm following IV injection of 75 mL of Isovue. Multiplanar sagittal and coronal reconstructed images also obtained. Findings: There are mild chronic lung changes with scattered small linear atelectasis, small bullae and focal pleural thickening. There are mild apical pleural calcifications. Tiny 3 mm focal density is noted in the posterior right lower lobe too small to characterize (image #[id number] of [id number]). Both lungs show otherwise no discrete masses or infiltrate. The heart is normal in size. There are coronary artery and aortic atherosclerotic calcifications. There is no hilar or mediastinal lymphadenopathy and no pleural or pericardial effusions. There is mild spondylosis. IMPRESSION: Mild chronic lung findings with a small bullae and linear atelectasis. 3 mm focal density in the posterior right lower lobe too small to characterize. Follow-up suggested. ABDOMINAL AND PELVIC CT WITH CONTRAST ENHANCEMENT History: Obstructive jaundice, concern for metastasis ComparisonCT: None available Technique: Multislice volume acquisition abdominal and pelvic CT sections from the diaphragm through the symphysis pubis following oral and IV contrast enhancement. Multiplanar sagittal and coronal reconstructed images also obtained. Findings: Abdominal CT shows large, approximately 5.6 x 7.5 x 8.3 cm soft tissue mass in the pancreatic head and proximal body region with additional 4.9 x 5.7 x 7 cm mass component in the herman hepatis. There is extension of the mass into the aortocaval region with some encasement of the adjacent celiac axis, hepatic artery, SMA, and portal and left renal veins. The appearance suggest pancreatic malignancy but lymphoma and other etiologies could not be excluded. There is small paraesophageal hiatus hernia containing fat and some soft tissue thickening. There are dilated intrahepatic bile ducts particularly in the left lobe with apparent compression of the common bile duct by the mass. There is a contracted heterogeneous gallbladder with probable wall thickening or small pericholecystic fluid. Associated gallstones could not be excluded. The pancreatic tail is unremarkable. The spleen, both adrenals, and both kidneys are unremarkable. Pelvic CT shows unremarkable mildly distended urinary bladder. There are surgical clips with no pelvic lymphadenopathy. The exam is limited without oral contrast. There are few mildly dilated proximal small bowel loops in the midabdomen. There is generalized colon diverticulosis without diverticul itis. The appendix is not grossly visualized as an independent structure but there is no pericecal inflammation to suggest appendicitis. There is spondylosis and atherosclerotic calcifications. IMPRESSION: Large mass in the pancreatic head, herman hepatis and adjacent periaortic/pericaval regions. Pancreatic malignancy, lymphoma, and other etiologies should be considered. Vascular encasement and probable common bile duct compression by the mass with intrahepatic biliary dilatation. Gallbladder wall thickening versus small pericholecystic fluid. Gallstone could not be excluded. Small paraesophageal hiatus hernia containing fat and thickened tissue. Few mildly dilated small bowel loops in the midabdomen. Colon diverticulosis. Report Dictated on --- Final --- Dictated: 07/08/2020 9:52 am Dictating Physician: MD MACIAS AHMAD Signed Date and Time: 07/08/2020 9:52 am Signed by: MD MACIAS AHMAD Transcribed Date and Time: 07/08/2020 9:52 Assessment & Plan: 1. Pancreatic mass with the mass at the herman hepatis. Findings would be consistent with pancreaticcancer. 2. Obstructive jaundice. General surgeon feels this patient is an ERCP with a stent placement. ERCP cannot be obtained at our facility at this time, so they feel the patient should be transferred to [facility] for proper management. Agree with their assessment. I spent more than 50 minutes in the care of this patient today. More than 51% was based on care coordination. I have discussed the above stated plan with the patient and they verbalized understanding and agreed with the plan. Thank you for allowing us to participate in this patients care. JUANPABLO CORADO MD 07/08/2020, 3:41 PM * Ludivina Crouch MD - 07/08/2020 2:53 PM EDT General Surgery Progress Note Notified of ERCP unavailability at this time. Patient will require ERCP with stent placement for biliary decompression. Recommend transfer to for further management. Discussed with Dr. Bonilla. Please call with questions. Ludivina Crouch MD documented in this encounter Assessments Diagnosis Obstructive jaundice Other specified disorders of biliary tract Elevated bilirubin Disorders of bilirubin excretion Hypertension Unspecified essential hypertension Chronic pain Other chronic pain Transaminitis Nonspecific elevation of levels of transaminase or lactic acid dehydrogenase (LDH) Hospital Course Note Discharge Summary Amie Killian : 1955 ADMIT DATE: 07/07/2020 DISCHARGE DATE: 07/08/2020 PRIMARY CARE PHYSICIAN: No primary care provider on file. VISIT STATUS: Admission CODE STATUS: Full Code DISCHARGE DIAGNOSES: Principal Problem: Obstructive jaundice Active Problems: Elevated bilirubin Hypertension Chronic pain Transaminitis Resolved Problems: * No resolved hospital problems. * HOSPITAL COURSE: 65 y.o. male with PMHx of Hx of Prostate Cancer s/p prostatectomy, Hep c s/p treatment, COPD, HTN, Rectourethral fistula, HLD, and Tobacco abuse presented to [facility] on 07/07/2020 from outside facility ([place]) was referred to the ER by oncologist of adi.. Patient was recent diagnosed w/ abdominal mass s/p biopsy. Labs showed SCr 1.07, bilirubin of 7.0, alk phos of 271, ALT 299, and AST of 147. CT abdomen showed progressive enlargement of epigastric mass as well as periportal mass with evidence of intrahepatic biliary ductal dilation more prominent of L hepatic jeannie (more content not included)... Note HNO ID: [id number] Author: Juan Guzman Service: General Internal Medicine Author Type: Physician Type: Discharge Summary Filed: 07/16/2020 9:27 PM Note Text: DISCHARGE SUMMARY PATIENT NAME: Alejandro Killian ADMISSION DATE: 07/09/2020 DISCHARGE DATE: 07/15/2020 ATTENDING PHYSICIAN: Sharon Guzman Code Status: DNR-CC Highest Readmission Risk Score: 22 The 30 day readmissions risk score is derived from an internally validated risk model which evaluates patient level characteristics, utilization history, medication orders and lab results up until the day of discharge. Patients with a score of 40 or above are considered highest risk for readmission. Specific patient level drivers will be listed at the bottom of the summary. CONSULTING TEAMS DURING HOSPITALIZATION: Treatment Team: Attending Provider: Sharon Guzman Consulting: Luis Enrique Newell Consulting: Ceferino Atkins REASON FOR HOSPITALIZATION: Abdominal pain DIAGNOSIS: non-Hodgkin's lymphoma NA OPERATIONS DURING HOSPITAL (more content not included)... Note HNO ID: [id number] Author: Elba Orona Service: Hematology/Oncology Author Type: Nurse Practitioner Type: Procedures Filed: 07/10/2020 1:56 PM Note Text: BEDSIDE PROCEDURE NOTE PROCEDURE DATE: July 10, 2020 PROCEDURE START TIME: 1341 PRIMARY PROCEDURALIST: Victor Manuel Orona APRN.CANDY SPREADER HELPER TROUBLE TRACER(S): None INFORMED CONSENT: Informed Consent obtained and on the chart UNIVERSAL PROTOCOL / SAFETY CHECKLIST Sign in Communication: Completed Time Out: Team Confirms the Correct Patient, Correct Procedure, Correct Site and Site Marking, Correct Position (if applicable), Prep and Dry Time (if applicable). Time: 1341 Affirmation of Time Out: N/A Sign Out Discussion: Completed PROCEDURE: BONE MARROW BIOPSY Aspiration Type: Unilateral Site: Right Posterior Superior Iliac Crest Patient Position: Left lateral decubitis Site Prep: Chlorhexidine gluconate Local Anesthesia: 5 mls of 1% Lidocaine Procedure: Nanosphere biopsy system was used. Using aseptic technique, bone marrow aspiration was perfo (more content not included)... Procedure Findings Note HNO ID: [id number] Author: Elba Orona Service: Hematology/Oncology Author Type: Nurse Practitioner Type: Procedures Filed: 07/10/2020 1:56 PM Note Text: BEDSIDE PROCEDURE NOTE PROCEDURE DATE: July 10, 2020 PROCEDURE START TIME: 1341 PRIMARY PROCEDURALIST: Victor Manuel Orona APRN.CANDY SPREADER HELPER TROUBLE TRACER(S): None INFORMED CONSENT: Informed Consent obtained and on the chart UNIVERSAL PROTOCOL / SAFETY CHECKLIST Sign in Communication: Completed Time Out: Team Confirms the Correct Patient, Correct Procedure, Correct Site and Site Marking, Correct Position (if applicable), Prep and Dry Time (if applicable). Time: 1341 Affirmation of Time Out: N/A Sign Out Discussion: Completed PROCEDURE: BONE MARROW BIOPSY Aspiration Type: Unilateral Site: Right Posterior Superior Iliac Crest Patient Position: Left lateral decubitis Site Prep: Chlorhexidine gluconate Local Anesthesia: 5 mls of 1% Lidocaine Procedure: Nanosphere biopsy system was used. Using aseptic technique, bone marrow aspiration was perfo (more content not included)... Medications Administered Section Inactive Administered Medications - up to 3 most recent administrations Medication Order MAR Action Action Date Dose Rate Site diphenhydrAMINE 12.5-50 mg injection (BENADRYL) 12.5-50 mg, INTRAVENOUS, DIRECTED, Starting on Mon12/24/21 at 1200, Until Mon12/24/21 at 1559, DOSING DIRECTED BY PHYSICIAN FOR PROCEDURAL SEDATION ONLY, Intraprocedure Given 12/24/2021 11:30 AM EDT 50 mg fentaNYL 50 mcg/mL 25-100 mcg injection (SUBLIMAZE) 25-100 mcg, INTRAVENOUS, DIRECTED, Starting on Mon12/24/21 at 1200, Until Mon12/24/21 at 1559, DOSING DIRECTED BY PHYSICIAN FOR PROCEDURAL SEDATION ONLY, Intraprocedure Given 12/24/2021 11:46 AM EDT 50 mcg Given 12/24/2021 11:28 AM EDT 50 mcg heparin 100 unit/mL 500 Units injection 500 Units (5 mL), INTRAVENOUS, NEEDED, Starting on Mon12/24/21 at 1020, Until Mon12/25/21 at 0412, Flush IVAD PRN prior to decannulation or every 30 days if not in use Given 12/24/2021 12:36 PM EDT 500 Units lactated ringers iv infusion 75 mL/hr, INTRAVENOUS, CONTINUOUS, Starting on Mon12/24/21 at 1100, Until Mon12/24/21 at 1205, Preprocedure New Bag/Syringe/Yanet le 12/24/2021 10:50 AM EDT 30 mL/hr 30 mL/hr Port midazolam (PF) 1-5 mg injection (VERSED) 1-5 mg, INTRAVENOUS, DIRECTED, Starting on Mon12/24/21 at 1200, Until Mon12/24/21 at 1559, DOSING DIRECTED BY PHYSICIAN FOR PROCEDURAL SEDATION ONLY, Intraprocedure Given 12/24/2021 11:52 AM EDT 2 mg Given 12/24/2021 11:35 AM EDT 3 mg Given 12/24/2021 11:28 AM EDT 2 mg Inactive Administered Medications - up to 3 most recent administrations Medication Order MAR Action Action Date Dose Rate Site leuprolide 22.5 mg injection (LUPRON DEPOT) 22.5 mg, INTRAMUSCULAR, ONCE, 1 dose, On Mon02/25/22 at 1000, Hazardous Chemotherapy Drug: Use appropriate PPE. Given 02/25/2022 10:01 AM EDT 22.5 mg Buttocks, Left Inactive Administered Medications - up to 3 most recent administrations Medication Order MAR Action Action Date Dose Rate Site acetaminophen 650 mg tab(s) (TYLENOL) 650 mg, ORAL, ONCE, 1 dose, On Mon03/18/22 at 1100, Give 30 minutes before infusion. No more than 4000 mg of acetaminophen should be given per day (FROM ALL SOURCES), If ordered PRN for pain, patient/guardian may elect to receive this medication for higher pain levels INSTEAD of the opioid, if preferred: N/A Given 03/18/2022 11:05 AM EDT 650 mg zoledronic kg-qdbwfsru-4.9NaCl 4 mg iv piggyback 100 mL (ZOMETA) 4 mg, INTRAVENOUS, Administer over 15 Minutes, ONCE, 1 dose, On Mon03/18/22 at 1130, Hazardous Potential Reproductive Risk Drug: Use appropriate PPE. New Bag/Syringe/Bottle 03/18/2022 11:12 AM EDT 4 mg Inactive Administered Medications - up to 3 most recent administrations Medication Order MAR Action Action Date Dose Rate Site leuprolide 22.5 mg injection (LUPRON DEPOT) 22.5 mg, INTRAMUSCULAR, ONCE, 1 dose, On Mon05/20/22 at 0930, Hazardous Chemotherapy Drug: Use appropriate PPE. Given 05/20/2022 9:41 AM EDT 22.5 mg Buttocks, Right Inactive Administered Medications - up to 3 most recent administrations Medication Order MAR Action Action Date Dose Rate Site zoledronic pb-mfbinwna-8.9NaCl 4 mg iv piggyback 100 mL (ZOMETA) 4 mg, INTRAVENOUS, Administer over 15 Minutes, ONCE, 1 dose, On Mon06/10/22 at 1100, Hazardous Potential Reproductive Risk Drug: Use appropriate PPE. New Bag/Syringe/Bottle 06/10/2022 11:30 AM EDT 4 mg Inactive Administered Medications - up to 3 most recent administrations Medication Order MAR Action Action Date Dose Rate Site leuprolide 22.5 mg injection (LUPRON DEPOT) 22.5 mg, INTRAMUSCULAR, ONCE, 1 dose, On Mon08/12/22 at 0830, Hazardous Chemotherapy Drug: Use appropriate PPE. Given 08/12/2022 8:25 AM EST 22.5 mg Buttocks, Left Inactive Administered Medications - up to 3 most recent administrations Medication Order MAR Action Action Date Dose Rate Site zoledronic fg-cqvhmqgd-7.9NaCl 4 mg iv piggyback 100 mL (ZOMETA) 4 mg, INTRAVENOUS, Administer over 15 Minutes, ONCE, 1 dose, On Mon09/02/22 at 1100, Hazardous Potential Reproductive Risk Drug: Use appropriate PPE. New Bag/Syringe/Bottle 09/02/2022 10:50 AM EST 4 mg Inactive Administered Medications - up to 3 most recent administrations Medication Order MAR Action Action Date Dose Rate Site leuprolide 22.5 mg injection (LUPRON DEPOT) 22.5 mg, INTRAMUSCULAR, ONCE, 1 dose, On Mon11/04/22 at 0900, Hazardous Chemotherapy Drug: Use appropriate PPE. Given 11/04/2022 9:06 AM EST 22.5 mg Buttocks, Right Inactive Administered Medications - up to 3 most recent administrations Medication Order MAR Action Action Date Dose Rate Site zoledronic qn-frzqdboq-4.9NaCl 4 mg iv piggyback 100 mL (ZOMETA) 4 mg, INTRAVENOUS, Administer over 15 Minutes, ONCE, 1 dose, On Mon11/25/22 at 1030, Hazardous Potential Reproductive Risk Drug: Use appropriate PPE. New Bag/Syringe/Bottle 11/25/2022 10:18 AM EDT 4 mg Inactive Administered Medications - up to 3 most recent administrations Medication Order MAR Action Action Date Dose Rate Site leuprolide 22.5 mg injection (LUPRON DEPOT) 22.5 mg, INTRAMUSCULAR, ONCE, 1 dose, On Mon04/28/23 at 0830, Hazardous Chemotherapy Drug: Use appropriate PPE. Given 04/28/2023 8:42 AM EDT 22.5 mg Buttocks, Left Inactive Administered Medications - up to 3 most recent administrations Medication Order MAR Action Action Date Dose Rate Site zoledronic ly-bhjcklew-3.9NaCl 4 mg iv piggyback 100 mL (ZOMETA) 4 mg, INTRAVENOUS, Administer over 15 Minutes, ONCE, 1 dose, On Mon05/12/23 at 1030, Hazardous Potential Reproductive Risk Drug: Use appropriate PPE. New Bag/Syringe/Bottle 05/12/2023 10:27 AM EDT 4 mg Inactive Administered Medications - up to 3 most recent administrations Medication Order MAR Action Action Date Dose Rate Site leuprolide 22.5 mg injection (LUPRON DEPOT) 22.5 mg, INTRAMUSCULAR, ONCE, 1 dose, On Mon07/21/23 at 0830, Hazardous Chemotherapy Drug: Use appropriate PPE. Given 07/21/2023 8:56 AM EST 22.5 mg Buttocks, Right Reason for Referral Specialty Diagnoses / Procedures Referred By Noam collins Referred To Contact CT IMAGING Diagnoses Malignant neoplasm of prostate (HCC) Diffuse large B-cell lymphoma of intra-abdominal lymph nodes (HCC) Procedures CT ABD/PEL W IVCON CT ABD & PELVIS W/CONTRAST Sean Rodriguez MD [address] [place] [address] Ct Imaging Referral ID Status Reason Start Date Expiration Date Visits Requested Visits Authorized [id number] Authorized Auto-Generat ed Referral 03/04/2022 04/03/2022 2 2 Specialty Diagnoses / Procedures Referred By Noam collins Referred To Contact CT IMAGING Diagnoses Diffuse large B-cell lymphoma of intra-abdominal lymph nodes (HCC) Bone metastasis (HCC) Prostate cancer (HCC) Langerhans cell histiocytoses (HCC) Procedures CT ABD/PEL W IVCON CT ABD & PELVIS W/CONTRAST Sean Rodriguez MD [address] [place] [address] Ct Imaging Referral ID Status Reason Start Date Expiration Date Visits Requested Visits Authorized [id number] Pending Review Auto-Generat ed Referral 08/16/2022 07/28/2023 1 1 Specialty Diagnoses / Procedures Referred By Noam collins Referred To Contact Dermatology Diagnoses Skin lesion Procedures CONSULT TO DERMATOLOGY Apollo Melo MD [address] [place] [address] Referral ID Status Reason Start Date Expiration Date Visits Requested Visits Authorized [id number] Ref Not Required PCP Requested Referral 01/13/2023 01/13/2024 1 1 Specialty Diagnoses / Procedures Referred By Contac t Referred To Contact CT IMAGING Diagnoses Diffuse large B-cell lymphoma of intra-abdominal lymph nodes (HCC) Prostate cancer (HCC) Bone metastasis Procedures CT ABD/PEL W IVCON CT ABD & PELVIS W/CONTRAST Sean Rodriguez MD [address] [place] [address] [place] [address] Referral ID Status Reason Start Date Expiration Date V isits Requested Visits Authorized [id number] Closed Auto-Generate d Referral 03/02/2023 04/01/2023 1 1 Specialty Diagnoses / Procedures Referred By Contac t Referred To Contact CT IMAGING Diagnoses Diffuse large B-cell lymphoma of intra-abdominal lymph nodes (HCC) Bone metastasis Prostate cancer (HCC) Langerhans cell histiocytoses (HCC) Procedures CT ABD/PEL W IVCON CT ABD & PELVIS W/CONTRAST Sean Rodriguez MD [address] [place] [address] Ct Imaging [facility]95 Referral ID Status Reason Start Date Expiration Date V isits Requested Visits Authorized [id number] Closed Auto-Generate d Referral 08/16/2022 09/15/2022 2 2 Chief Complaint and Reason for Visit Chief Complaint Admit Date STEMI February 18, 2025 1:59 pm Reason for Visit Admit Date Acute chest pain February 18, 2025 1:59 pm Acute inferior myocardial infarction Feb 1:59pm History of prostate cancer February 18 1:59pm History of COPD February 18, 2025 1:59 pm Additional Source Comments (unrecognized sect ion and content) No Status Records FoundNo Status Records FoundNo Status Records FoundNo Status Records FoundNo Status Records FoundNo Status Records FoundNo Status Records Found INFORMATION SOURCE (unrecogn ized section and content) DATE CREATED AUTHOR 03/07/2018 [facility] DATE CREATED AUTHOR AUTHOR'S ORGANIZ ATION 07/17/2020 [facility] DATE CREATED AUTHOR AUTHOR'S ORGANIZ ATION 12/04/2020 [facility] DATE CREATED AUTHOR AUTHOR'S ORGANIZ ATION 07/06/2021 [facility] DATE CREATED AUTHOR AUTHOR'S ORGANIZ ATION 05/16/2023 [facility] DATE CREATED AUTHOR AUTHOR'S ORGANIZ ATION 02/17/2025 [facility] DATE CREATED AUTHOR AUTHOR'S ORGANIZ ATION 02/18/2025 [facility] Reason for Visit (unrecogniz ed section and content) Reason Comments Established Patient Specialty Diagnoses / Procedures Referred By Contac t Referred To Contact Diagnoses Malignant neoplasm of prostate (HCC) Diffuse large B-cell lymphoma of intra-abdominal lymph nodes (HCC) Lesion of liver Procedures LEUPROLIDE ACETATE SUSPNSION Sean Rodriguez MD [address] [place] [id number] [facility] [address] [place] [address] Referral ID Status Reason Start Date Expiration Date V isits Requested Visits Authorized [id number] Authorized 06/13/2021 04/06/2025 16 16 Reason Comments Non-Chemotherapy Treatment Specialty Diagnoses / Procedures Referred By Contac t Referred To Contact Diagnoses Malignant neoplasm of prostate (HCC) Bone metastasis (HCC) Procedures INJECTION, ZOLEDRONIC ACID, 1 MG Sean Rodriguez MD [address] [facility] [place] [address] [facility] [address] [place] [address] Referral ID Status Reason Start Date Expiration Date V isits Requested Visits Authorized [id number] Authorized 03/07/2022 10/22/2023 7 7 Reason Comments Zometa Referral ID Status Reason Start Date Expiration Date V isits Requested Visits Authorized [id number] Authorized 03/07/2022 09/10/2022 99 99 Reason Comments Reason Comments Port Flush Reason Comments 12-24-2021 [facility] Reason Comments 6 Month Exam Reason Comments Established Patient Reason Comments Imm/Inj Specialty Diagnoses / Procedures Referred By Contac t Referred To Contact Diagnoses Malignant neoplasm of prostate (HCC) Diffuse large B-cell lymphoma of intra-abdominal lymph nodes (HCC) Lesion of liver Procedures LEUPROLIDE ACETATE SUSPNSION Sean Rodriguez MD [address] [place] [address] [facility] [address] [place] [address] Referral ID Status Reason Start Date Expiration Date V isits Requested Visits Authorized [id number] Authorized 06/13/2021 06/08/2022 4 4 Reason Comments Blood Draw (CVAD) Reason Comments Radiology NM Reason Comments Radiology CT Specialty Diagnoses / Procedures [facility] CT [facility] Diagnoses Malignant neoplasm of prostate (HCC) Diffuse large B-cell lymphoma of intra-abdominal lymph nodes (HCC) Procedures CT ABD/PEL W IVCON CT ABD & PELVIS W/CONTRAST Sean Rodriguez MD [address] [place] [address] Ct Imaging Referral ID Status Reason Start Date Expiration Date Visits Requested Visits Authorized [id number] Authorized Auto-Generat ed Referral 03/04/2022 04/03/2022 2 2 Reason Onset Date Comments SPP Oral Oncology/hematology - Treatment Referra l 03/07/2022 Abir[employer] Insurance Authorization 03/07/2022 Pending PA submission Reason Comments Care Coordination ORAL ANTI-CANCER AGE NTS EDUCATION Reason Onset Date Comments Refill Request 03/18/2022 Reason Comments Patient Education Zytiga follow-up ora l chemo education & medication reconciliation Reason Comments Sports Intern - Other ORAL ANTI-CANCE R AGENTS FOLLOW-UP PHONE CALL Reason Comments Insurance Authorization Fluticasone Furo ate Referral ID Status Reason Start Date Expiration Date V isits Requested Visits Authorized [id number] Authorized 06/13/2021 04/14/2023 8 8 Reason Onset Date Comments Refill Request 07/04/2022 Reason Comments Results Low potassium Reason Onset Date Comments Refill Request 08/11/2022 Reason Comments Established Patient Reason Onset Date Comments Refill Request 08/26/2022 Specialty Diagnoses / Procedures [facility] To Contact Diagnoses Malignant neoplasm of prostate (HCC) Bone metastasis (HCC) Procedures INJECTION, ZOLEDRONIC ACID, 1 MG Sean Rodriguez MD [address] [facility] [place] [address] [facility] [address] [place] [address] Reason Comments AVS 11/28/22 Reason Onset Date Comments SPP Oral Oncology/hematology - Treatment Referral 11/30/2022 [employer] Insurance Authorization 11/30/2022 Pending PA Submission, approved Reason Comments 6 Month Exam Reason Comments Fax Derm referral to Alvar[facility] Specialty Diagnoses / Procedures [facility] Referred To Contact Diagnoses Malignant neoplasm of prostate (HCC) Diffuse large B-cell lymphoma of intra-abdominal lymph nodes (HCC) Lesion of liver Procedures LEUPROLIDE ACETATE SUSPNSION Sean Rodriguez MD [address] [place] [address] [place] [address] [facility] [address] [place] [address] Referral ID Status Reason Start Date Expiration Date V isits Requested Visits Authorized [id number] Authorized 06/13/2021 04/09/2024 12 12 Specialty Diagnoses / Procedures [facility] Referred To Contact Diagnoses Malignant neoplasm of prostate (HCC) Bone metastasis Procedures INJECTION, ZOLEDRONIC ACID, 1 MG Sean Rodriguez MD [address] [place] [address] [place] [address] [facility] [address] [place] [address] Reason Comments Pain Right upper thigh pa in intermittent x 6 days Reason Comments Results Reason Comments Care Coordination Follow Up Note Reason Comments Refill Request Specialty Diagnoses / Procedures Referred By Noam Referred To Contact CT IMAGING Diagnoses Diffuse large B-cell lymphoma of intra-abdominal lymph nodes (HCC) Prostate cancer (HCC) Bone metastasis Procedures CT ABD/PEL W IVCON CT ABD & PELVIS W/CONTRAST Sean Rodriguez MD [address] [place] [address] Ct Imaging [facility]95 Referral ID Status Reason Start Date Expiration Date V isits Requested Visits Authorized [id number] Closed Auto-Generate d Referral 03/02/2023 04/01/2023 1 1 Reason Comments Radiology NM Specialty Diagnoses / Procedures Referred By Contact Referred To Contact MOLECULAR & FUNCTIONAL IMAGING Diagnoses Prostate cancer (HCC) Bone metastasis Procedures NM BONE WHOLE BODY BONE &/JOINT IMAGING WHOLE BODY Sean Rodriguez MD [address] [place] [address] Molecular & Functional Imaging [address] [place] [address] Referral ID Status Reason Start Date Expiration Date V isits Requested Visits Authorized [id number] Closed Auto-Generate d Referral 02/27/2023 09/28/2023 1 1 Specialty Diagnoses / Procedures Referred By Contac t Referred To Contact CT IMAGING Diagnoses Diffuse large B-cell lymphoma of intra-abdominal lymph nodes (HCC) Bone metastasis Prostate cancer (HCC) Langerhans cell histiocytoses (HCC) Procedures CT ABD/PEL W IVCON CT ABD & PELVIS W/CONTRAST Sean Rodriguez MD [address] [place] [address] Ct Imaging [place] [address] Referral ID Status Reason Start Date Expiration Date V isits Requested Visits Authorized [id number] Closed Auto-Generate d Referral 08/16/2022 09/15/2022 2 2 Reason Comments F/U 6 Month Reason Comments Zometa Leuprolide Specialty Diagnoses / Procedures Referred By Contac t Referred To Contact Diagnoses Malignant neoplasm of prostate (HCC) Bone metastasis Procedures INJECTION, ZOLEDRONIC ACID, 1 MG Sean Rodriguez MD [address] [place] [address] [facility] [address] [place] [address] Referral ID Status Reason Start Date Expiration Date V isits Requested Visits Authorized [id number] Authorized 03/07/2022 10/17/2024 12 12 Reason Comments Patient Question Referral ID Status Reason Start Date Expiration Date V isits Requested Visits Authorized [id number] Authorized 03/07/2022 10/17/2024 11 11 Reason Onset Date Comments Refill Request 06/28/2024 Specialty Diagnoses / Procedures [facility] Referred To Contact Diagnoses Malignant neoplasm of prostate (HCC) Bone metastasis Procedures INJECTION, ZOLEDRONIC ACID, 1 MG Sean Rodriguez MD [email or web address] [place] [id number] [facility] [address] [place] [address] Reason Onset Date Comments Refill Request 07/04/2024 Reason Comments F/U 6 Month Reason Comments Spirometry Specialty Diagnoses / Procedures [facility] Diagnoses Chronic obstructive pulmonary disease, unspecified COPD type (HCC) Tobacco use disorder Procedures SPIROMETRY - BASELINE AND POST DILATOR BRNCDILAT RSPSE SPMTRY PRE&POST-BRNCDILAT Apollo Lott MD [address] [place] [address] Respiratory Pierre [address] [place] [address] Referral ID Status Reason Start Date Expiration Date V isits Requested Visits Authorized [id number] Closed Auto-Generate d Referral 07/16/2024 08/15/2025 1 1 Reason Comments 2024 Xtandi Assistance Renewal Reason Comments Medication Problem Referral ID Status Reason Start Date Expiration Date V isits Requested Visits Authorized [id number] Authorized 03/07/2022 11/14/2025 16 16 Reason Comments Xtandi Refill Reason Onset Date Comments Refill Request 09/30/2024 Reason Onset Date Comments Population Health Navigation Outreach 12/06/2024 Buddy Capone Specialty Diagnoses / Procedures Referred By Noam collins Referred To Contact Diagnoses Diffuse large B-cell lymphoma of intra-abdominal lymph nodes (HCC) Lesion of liver Prostate cancer (HCC) Procedures LEUPROLIDE ACETATE SUSPNSION Francisco Javier Perez MD [address] [place] [address] Phone: tel: Francisco Javier Perez MD [address] [place] [address] Phone: tel: Referral ID Status Reason Start Date Expiration Date V isits Requested Visits Authorized [id number] Authorized 12/19/2024 04/06/2025 [address] Specialty Diagnoses / Procedures Referred By Noam collins Referred To Contact CT IMAGING Diagnoses Lesion of liver Diffuse large B-cell lymphoma of intra-abdominal lymph nodes (HCC) Procedures CT ABD/PEL W IVCON CT ABD & PELVIS W/CONTRAST Francisco Javier Perez MD [address] [place] [address] Phone: tel: [place] [id number] Referral ID Status Reason Start Date Expiration Date V isits Requested Visits Authorized [id number] Closed Auto-Generate d Referral 12/19/2024 01/18/2026 1 1 Source Comments (unrecognize d section and content) In the event this informatio n is protected by the Federal Confidentiality of Alcohol and Drug Abuse Patient Records regulations: The Federal rules restrict any use of the information to criminally investigate or prosecute any alcohol or drug abuse patient.[facility] CampusIn the event this information is protected by the Federal Confidentiality of Alcohol and Drug Abuse Patient Records regulations: The Federal rules restrict any use of the information to criminally investigate or prosecute any alcohol or drug abuse patient.[facility] CampusIn the event this information is protected by the Federal Confidentiality of Alcohol and Drug Abuse Patient Records regulations: The Federal rules restrict any use of the information to criminally investigate or prosecute any alcohol or drug abuse patient.[facility] CampusIn the event this information is protected by the Federal Confidentiality of Alcohol and Drug Abuse Patient Records regulations: The Federal rules restrict any use of the information to criminally investigate or prosecute any alcohol or drug abuse patient.[facility] CampusIn the event this information is protected by the Federal Confidentiality of Alcohol and Drug Abuse Patient Records regulations: The Federal rules restrict any use of the information to criminally investigate or prosecute any alcohol or drug abuse patient.[facility] CampusIn the event this information is protected by the Federal Confidentiality of Alcohol and Drug Abuse Patient Records regulations: The Federal rules restrict any use of the information to criminally investigate or prosecute any alcohol or drug abuse patient.[facility] CampusIn the event this information is protected by the Federal Confidentiality of Alcohol and Drug Abuse Patient Records regulations: The Federal rules restrict any use of the information to criminally investigate or prosecute any alcohol or drug abuse patient.[facility] CampusIn the event this information is protected by the Federal Confidentiality of Alcohol and Drug Abuse Patient Records regulations: The Federal rules restrict any use of the information to criminally investigate or prosecute any alcohol or drug abuse patient.[facility] CampusIn the event this information is protected by the Federal Confidentiality of Alcohol and Drug Abuse Patient Records regulations: The Federal rules restrict any use of the information to criminally investigate or prosecute any alcohol or drug abuse patient.[facility] CampusIn the event this information is protected by the Federal Confidentiality of Alcohol and Drug Abuse Patient Records regulations: The Federal rules restrict any use of the information to criminally investigate or prosecute any alcohol or drug abuse patient.[facility] CampusIn the event this information is protected by the Federal Confidentiality of Alcohol and Drug Abuse Patient Records regulations: The Federal rules restrict any use of the information to criminally investigate or prosecute any alcohol or drug abuse patient.[facility] CampusIn the event this information is protected by the Federal Confidentiality of Alcohol and Drug Abuse Patient Records regulations: The Federal rules restrict any use of the information to criminally investigate or prosecute any alcohol or drug abuse patient.[facility] CampusIn the event this information is protected by the Federal Confidentiality of Alcohol and Drug Abuse Patient Records regulations: The Federal rules restrict any use of the information to criminally investigate or prosecute any alcohol or drug abuse patient.[facility] CampusIn the event this information is protected by the Federal Confidentiality of Alcohol and Drug Abuse Patient Records regulations: The Federal rules restrict any use of the information to criminally investigate or prosecute any alcohol or drug abuse patient.[facility] [place] CampusIn the event this information is protected by the Federal Confidentiality of Alcohol and Drug Abuse Patient Records regulations: The Federal rules restrict any use of the information to criminally investigate or prosecute any alcohol or drug abuse patient.[facility] [place] CampusIn the event this information is protected by the Federal Confidentiality of Alcohol and Drug Abuse Patient Records regulations: The Federal rules restrict any use of the information to criminally investigate or prosecute any alcohol or drug abuse patient.[facility] [place] CampusIn the event this information is protected by the Federal Confidentiality of Alcohol and Drug Abuse Patient Records regulations: The Federal rules restrict any use of the information to criminally investigate or prosecute any alcohol or drug abuse patient.[facility] [place] CampusIn the event this information is protected by the Federal Confidentiality of Alcohol and Drug Abuse Patient Records regulations: The Federal rules restrict any use of the information to criminally investigate or prosecute any alcohol or drug abuse patient.[facility] [place] CampusIn the event this information is protected by the Federal Confidentiality of Alcohol and Drug Abuse Patient Records regulations: The Federal rules restrict any use of the information to criminally investigate or prosecute any alcohol or drug abuse patient.[facility] CampusIn the event this information is protected by the Federal Confidentiality of Alcohol and Drug Abuse Patient Records regulations: The Federal rules restrict any use of the information to criminally investigate or prosecute any alcohol or drug abuse patient.[facility] CampusIn the event this information is protected by the Federal Confidentiality of Alcohol and Drug Abuse Patient Records regulations: The Federal rules restrict any use of the information to criminally investigate or prosecute any alcohol or drug abuse patient.[facility] CampusIn the event this information is protected by the Federal Confidentiality of Alcohol and Drug Abuse Patient Records regulations: The Federal rules restrict any use of the information to criminally investigate or prosecute any alcohol or drug abuse patient.[facility] [place] CampusIn the event this information is protected by the Federal Confidentiality of Alcohol and Drug Abuse Patient Records regulations: The Federal rules restrict any use of the information to criminally investigate or prosecute any alcohol or drug abuse patient.[facility] [place] CampusIn the event this information is protected by the Federal Confidentiality of Alcohol and Drug Abuse Patient Records regulations: The Federal rules restrict any use of the information to criminally investigate or prosecute any alcohol or drug abuse patient.[facility] [place] CampusIn the event this information is protected by the Federal Confidentiality of Alcohol and Drug Abuse Patient Records regulations: The Federal rules restrict any use of the information to criminally investigate or prosecute any alcohol or drug abuse patient.[facility] CampusIn the event this information is protected by the Federal Confidentiality of Alcohol and Drug Abuse Patient Records regulations: The Federal rules restrict any use of the information to criminally investigate or prosecute any alcohol or drug abuse patient.[facility] [place] CampusIn the event this information is protected by the Federal Confidentiality of Alcohol and Drug Abuse Patient Records regulations: The Federal rules restrict any use of the information to criminally investigate or prosecute any alcohol or drug abuse patient.[facility] [place] CampusIn the event this information is protected by the Federal Confidentiality of Alcohol and Drug Abuse Patient Records regulations: The Federal rules restrict any use of the information to criminally investigate or prosecute any alcohol or drug abuse patient.[facility] [place] CampusIn the event this information is protected by the Federal Confidentiality of Alcohol and Drug Abuse Patient Records regulations: The Federal rules restrict any use of the information to criminally investigate or prosecute any alcohol or drug abuse patient.[facility] CampusIn the event this information is protected by the Federal Confidentiality of Alcohol and Drug Abuse Patient Records regulations: The Federal rules restrict any use of the information to criminally investigate or prosecute any alcohol or drug abuse patient.[facility]In the event this information is protected by the Federal Confidentiality of Alcohol and Drug Abuse Patient Records regulations: The Federal rules restrict any use of the information to criminally investigate or prosecute any alcohol or drug abuse patient.[facility] [place] [facility]In the event this information is protected by the Federal Confidentiality of Alcohol and Drug Abuse Patient Records regulations: The Federal rules restrict any use of the information to criminally investigate or prosecute any alcohol or drug abuse patient.[facility] [place] [facility]In the event this information is protected by the Federal Confidentiality of Alcohol and Drug Abuse Patient Records regulations: The Federal rules restrict any use of the information to criminally investigate or prosecute any alcohol or drug abuse patient.[facility] [place] [facility]In the event this information is protected by the Federal Confidentiality of Alcohol and Drug Abuse Patient Records regulations: The Federal rules restrict any use of the information to criminally investigate or prosecute any alcohol or drug abuse patient.[facility] [place] [facility]In the event this information is protected by the Federal Confidentiality of Alcohol and Drug Abuse Patient Records regulations: The Federal rules restrict any use of the information to criminally investigate or prosecute any alcohol or drug abuse patient.[facility] [place] [facility]In the event this information is protected by the Federal Confidentiality of Alcohol and Drug Abuse Patient Records regulations: The Federal rules restrict any use of the information to criminally investigate or prosecute any alcohol or drug abuse patient.[facility] [place] [facility]In the event this information is protected by the Federal Confidentiality of Alcohol and Drug Abuse Patient Records regulations: The Federal rules restrict any use of the information to criminally investigate or prosecute any alcohol or drug abuse patient.[facility] [place] CampusIn the event this information is protected by the Federal Confidentiality of Alcohol and Drug Abuse Patient Records regulations: The Federal rules restrict any use of the information to criminally investigate or prosecute any alcohol or drug abuse patient.[facility] [place] [facility]In the event this information is protected by the Federal Confidentiality of Alcohol and Drug Abuse Patient Records regulations: The Federal rules restrict any use of the information to criminally investigate or prosecute any alcohol or drug abuse patient.[facility] [place] [facility]In the event this information is protected by the Federal Confidentiality of Alcohol and Drug Abuse Patient Records regulations: The Federal rules restrict any use of the information to criminally investigate or prosecute any alcohol or drug abuse patient.[facility] [place] [facility]In the event this information is protected by the Federal Confidentiality of Alcohol and Drug Abuse Patient Records regulations: The Federal rules restrict any use of the information to criminally investigate or prosecute any alcohol or drug abuse patient.[facility] [place] CampusIn the event this information is protected by the Federal Confidentiality of Alcohol and Drug Abuse Patient Records regulations: The Federal rules restrict any use of the information to criminally investigate or prosecute any alcohol or drug abuse patient.[facility] [place] CampusIn the event this information is protected by the Federal Confidentiality of Alcohol and Drug Abuse Patient Records regulations: The Federal rules restrict any use of the information to criminally investigate or prosecute any alcohol or drug abuse patient.[facility] [place] CampusIn the event this information is protected by the Federal Confidentiality of Alcohol and Drug Abuse Patient Records regulations: The Federal rules restrict any use of the information to criminally investigate or prosecute any alcohol or drug abuse patient.[facility] [place] CampusIn the event this information is protected by the Federal Confidentiality of Alcohol and Drug Abuse Patient Records regulations: The Federal rules restrict any use of the information to criminally investigate or prosecute any alcohol or drug abuse patient.[facility] [place] CampusIn the event this information is protected by the Federal Confidentiality of Alcohol and Drug Abuse Patient Records regulations: The Federal rules restrict any use of the information to criminally investigate or prosecute any alcohol or drug abuse patient.[facility] [place] CampusIn the event this information is protected by the Federal Confidentiality of Alcohol and Drug Abuse Patient Records regulations: The Federal rules restrict any use of the information to criminally investigate or prosecute any alcohol or drug abuse patient.[facility] [place] CampusIn the event this information is protected by the Federal Confidentiality of Alcohol and Drug Abuse Patient Records regulations: The Federal rules restrict any use of the information to criminally investigate or prosecute any alcohol or drug abuse patient.[facility] [place] CampusIn the event this information is protected by the Federal Confidentiality of Alcohol and Drug Abuse Patient Records regulations: The Federal rules restrict any use of the information to criminally investigate or prosecute any alcohol or drug abuse patient.[facility] [place] CampusIn the event this information is protected by the Federal Confidentiality of Alcohol and Drug Abuse Patient Records regulations: The Federal rules restrict any use of the information to criminally investigate or prosecute any alcohol or drug abuse patient.[facility] [place] CampusIn the event this information is protected by the Federal Confidentiality of Alcohol and Drug Abuse Patient Records regulations: The Federal rules restrict any use of the information to criminally investigate or prosecute any alcohol or drug abuse patient.[facility] [place] CampusIn the event this information is protected by the Federal Confidentiality of Alcohol and Drug Abuse Patient Records regulations: The Federal rules restrict any use of the information to criminally investigate or prosecute any alcohol or drug abuse patient.[facility] [place] CampusIn the event this information is protected by the Federal Confidentiality of Alcohol and Drug Abuse Patient Records regulations: The Federal rules restrict any use of the information to criminally investigate or prosecute any alcohol or drug abuse patient.[facility] [place] CampusIn the event this information is protected by the Federal Confidentiality of Alcohol and Drug Abuse Patient Records regulations: The Federal rules restrict any use of the information to criminally investigate or prosecute any alcohol or drug abuse patient.[facility] [place] CampusIn the event this information is protected by the Federal Confidentiality of Alcohol and Drug Abuse Patient Records regulations: The Federal rules restrict any use of the information to criminally investigate or prosecute any alcohol or drug abuse patient.[facility] [place] CampusIn the event this information is protected by the Federal Confidentiality of Alcohol and Drug Abuse Patient Records regulations: The Federal rules restrict any use of the information to criminally investigate or prosecute any alcohol or drug abuse patient.[facility] [place] CampusIn the event this information is protected by the Federal Confidentiality of Alcohol and Drug Abuse Patient Records regulations: The Federal rules restrict any use of the information to criminally investigate or prosecute any alcohol or drug abuse patient.[facility] [place] CampusIn the event this information is protected by the Federal Confidentiality of Alcohol and Drug Abuse Patient Records regulations: The Federal rules restrict any use of the information to criminally investigate or prosecute any alcohol or drug abuse patient.[facility] [place] CampusIn the event this information is protected by the Federal Confidentiality of Alcohol and Drug Abuse Patient Records regulations: The Federal rules restrict any use of the information to criminally investigate or prosecute any alcohol or drug abuse patient.[facility] [place] CampusIn the event this information is protected by the Federal Confidentiality of Alcohol and Drug Abuse Patient Records regulations: The Federal rules restrict any use of the information to criminally investigate or prosecute any alcohol or drug abuse patient.[facility] [place] CampusIn the event this information is protected by the Federal Confidentiality of Alcohol and Drug Abuse Patient Records regulations: The Federal rules restrict any use of the information to criminally investigate or prosecute any alcohol or drug abuse patient.[facility] [place] CampusIn the event this information is protected by the Federal Confidentiality of Alcohol and Drug Abuse Patient Records regulations: The Federal rules restrict any use of the information to criminally investigate or prosecute any alcohol or drug abuse patient.[facility] [place] CampusIn the event this information is protected by the Federal Confidentiality of Alcohol and Drug Abuse Patient Records regulations: The Federal rules restrict any use of the information to criminally investigate or prosecute any alcohol or drug abuse patient.[facility] [place] CampusIn the event this information is protected by the Federal Confidentiality of Alcohol and Drug Abuse Patient Records regulations: The Federal rules restrict any use of the information to criminally investigate or prosecute any alcohol or drug abuse patient.[facility] [place] CampusIn the event this information is protected by the Federal Confidentiality of Alcohol and Drug Abuse Patient Records regulations: The Federal rules restrict any use of the information to criminally investigate or prosecute any alcohol or drug abuse patient.[facility] [place] CampusIn the event this information is protected by the Federal Confidentiality of Alcohol and Drug Abuse Patient Records regulations: The Federal rules restrict any use of the information to criminally investigate or prosecute any alcohol or drug abuse patient.[facility] [place] CampusIn the event this information is protected by the Federal Confidentiality of Alcohol and Drug Abuse Patient Records regulations: The Federal rules restrict any use of the information to criminally investigate or prosecute any alcohol or drug abuse patient.[facility] [place] CampusIn the event this information is protected by the Federal Confidentiality of Alcohol and Drug Abuse Patient Records regulations: The Federal rules restrict any use of the information to criminally investigate or prosecute any alcohol or drug abuse patient.[facility] [place] CampusIn the event this information is protected by the Federal Confidentiality of Alcohol and Drug Abuse Patient Records regulations: The Federal rules restrict any use of the information to criminally investigate or prosecute any alcohol or drug abuse patient.[facility] [place] CampusIn the event this information is protected by the Federal Confidentiality of Alcohol and Drug Abuse Patient Records regulations: The Federal rules restrict any use of the information to criminally investigate or prosecute any alcohol or drug abuse patient.[facility] [place] CampusIn the event this information is protected by the Federal Confidentiality of Alcohol and Drug Abuse Patient Records regulations: The Federal rules restrict any use of the information to criminally investigate or prosecute any alcohol or drug abuse patient.[facility] [place] CampusIn the event this information is protected by the Federal Confidentiality of Alcohol and Drug Abuse Patient Records regulations: The Federal rules restrict any use of the information to criminally investigate or prosecute any alcohol or drug abuse patient.[facility] [place] CampusIn the event this information is protected by the Federal Confidentiality of Alcohol and Drug Abuse Patient Records regulations: The Federal rules restrict any use of the information to criminally investigate or prosecute any alcohol or drug abuse patient.[facility] [place] CampusIn the event this information is protected by the Federal Confidentiality of Alcohol and Drug Abuse Patient Records regulations: The Federal rules restrict any use of the information to criminally investigate or prosecute any alcohol or drug abuse patient.[facility] [place] CampusIn the event this information is protected by the Federal Confidentiality of Alcohol and Drug Abuse Patient Records regulations: The Federal rules restrict any use of the information to criminally investigate or prosecute any alcohol or drug abuse patient.[facility] [place] CampusIn the event this information is protected by the Federal Confidentiality of Alcohol and Drug Abuse Patient Records regulations: The Federal rules restrict any use of the information to criminally investigate or prosecute any alcohol or drug abuse patient.[facility] [place] CampusIn the event this information is protected by the Federal Confidentiality of Alcohol and Drug Abuse Patient Records regulations: The Federal rules restrict any use of the information to criminally investigate or prosecute any alcohol or drug abuse patient.[facility] [place] CampusIn the event this information is protected by the Federal Confidentiality of Alcohol and Drug Abuse Patient Records regulations: The Federal rules restrict any use of the information to criminally investigate or prosecute any alcohol or drug abuse patient.[facility] [place] CampusIn the event this information is protected by the Federal Confidentiality of Alcohol and Drug Abuse Patient Records regulations: The Federal rules restrict any use of the information to criminally investigate or prosecute any alcohol or drug abuse patient.[facility] [place] CampusIn the event this information is protected by the Federal Confidentiality of Alcohol and Drug Abuse Patient Records regulations: The Federal rules restrict any use of the information to criminally investigate or prosecute any alcohol or drug abuse patient.[facility] [place] CampusIn the event this information is protected by the Federal Confidentiality of Alcohol and Drug Abuse Patient Records regulations: The Federal rules restrict any use of the information to criminally investigate or prosecute any alcohol or drug abuse patient.[facility] [place] CampusIn the event this information is protected by the Federal Confidentiality of Alcohol and Drug Abuse Patient Records regulations: The Federal rules restrict any use of the information to criminally investigate or prosecute any alcohol or drug abuse patient.[facility] [place] CampusIn the event this information is protected by the Federal Confidentiality of Alcohol and Drug Abuse Patient Records regulations: The Federal rules restrict any use of the information to criminally investigate or prosecute any alcohol or drug abuse patient.[facility] [place] CampusIn the event this information is protected by the Federal Confidentiality of Alcohol and Drug Abuse Patient Records regulations: The Federal rules restrict any use of the information to criminally investigate or prosecute any alcohol or drug abuse patient.[facility] [place] CampusIn the event this information is protected by the Federal Confidentiality of Alcohol and Drug Abuse Patient Records regulations: The Federal rules restrict any use of the information to criminally investigate or prosecute any alcohol or drug abuse patient.[facility] [place] CampusIn the event this information is protected by the Federal Confidentiality of Alcohol and Drug Abuse Patient Records regulations: The Federal rules restrict any use of the information to criminally investigate or prosecute any alcohol or drug abuse patient.[facility] [place] CampusIn the event this information is protected by the Federal Confidentiality of Alcohol and Drug Abuse Patient Records regulations: The Federal rules restrict any use of the information to criminally investigate or prosecute any alcohol or drug abuse patient.[facility] [place] CampusIn the event this information is protected by the Federal Confidentiality of Alcohol and Drug Abuse Patient Records regulations: The Federal rules restrict any use of the information to criminally investigate or prosecute any alcohol or drug abuse patient.[facility] [place] CampusIn the event this information is protected by the Federal Confidentiality of Alcohol and Drug Abuse Patient Records regulations: The Federal rules restrict any use of the information to criminally investigate or prosecute any alcohol or drug abuse patient.[facility] [place] CampusIn the event this information is protected by the Federal Confidentiality of Alcohol and Drug Abuse Patient Records regulations: The Federal rules restrict any use of the information to criminally investigate or prosecute any alcohol or drug abuse patient.[facility] [place] CampusIn the event this information is protected by the Federal Confidentiality of Alcohol and Drug Abuse Patient Records regulations: The Federal rules restrict any use of the information to criminally investigate or prosecute any alcohol or drug abuse patient.[facility] [place] CampusIn the event this information is protected by the Federal Confidentiality of Alcohol and Drug Abuse Patient Records regulations: The Federal rules restrict any use of the information to criminally investigate or prosecute any alcohol or drug abuse patient.[facility] [place] CampusIn the event this information is protected by the Federal Confidentiality of Alcohol and Drug Abuse Patient Records regulations: The Federal rules restrict any use of the information to criminally investigate or prosecute any alcohol or drug abuse patient.[facility] [place] CampusIn the event this information is protected by the Federal Confidentiality of Alcohol and Drug Abuse Patient Records regulations: The Federal rules restrict any use of the information to criminally investigate or prosecute any alcohol or drug abuse patient.[facility] [place] CampusIn the event this information is protected by the Federal Confidentiality of Alcohol and Drug Abuse Patient Records regulations: The Federal rules restrict any use of the information to criminally investigate or prosecute any alcohol or drug abuse patient.[facility] [place] CampusIn the event this information is protected by the Federal Confidentiality of Alcohol and Drug Abuse Patient Records regulations: The Federal rules restrict any use of the information to criminally investigate or prosecute any alcohol or drug abuse patient.[facility] [place] CampusIn the event this information is protected by the Federal Confidentiality of Alcohol and Drug Abuse Patient Records regulations: The Federal rules restrict any use of the information to criminally investigate or prosecute any alcohol or drug abuse patient.[facility] [place] CampusIn the event this information is protected by the Federal Confidentiality of Alcohol and Drug Abuse Patient Records regulations: The Federal rules restrict any use of the information to criminally investigate or prosecute any alcohol or drug abuse patient.[facility] [place] CampusIn the event this information is protected by the Federal Confidentiality of Alcohol and Drug Abuse Patient Records regulations: The Federal rules restrict any use of the information to criminally investigate or prosecute any alcohol or drug abuse patient.[facility] [place] CampusIn the event this information is protected by the Federal Confidentiality of Alcohol and Drug Abuse Patient Records regulations: The Federal rules restrict any use of the information to criminally investigate or prosecute any alcohol or drug abuse patient.[facility] [place] CampusIn the event this information is protected by the Federal Confidentiality of Alcohol and Drug Abuse Patient Records regulations: The Federal rules restrict any use of the information to criminally investigate or prosecute any alcohol or drug abuse patient.[facility] [place] CampusIn the event this information is protected by the Federal Confidentiality of Alcohol and Drug Abuse Patient Records regulations: The Federal rules restrict any use of the information to criminally investigate or prosecute any alcohol or drug abuse patient.[facility] [place] CampusIn the event this information is protected by the Federal Confidentiality of Alcohol and Drug Abuse Patient Records regulations: The Federal rules restrict any use of the information to criminally investigate or prosecute any alcohol or drug abuse patient.[facility] [place] CampusIn the event this information is protected by the Federal Confidentiality of Alcohol and Drug Abuse Patient Records regulations: The Federal rules restrict any use of the information to criminally investigate or prosecute any alcohol or drug abuse patient.[facility] [place] CampusIn the event this information is protected by the Federal Confidentiality of Alcohol and Drug Abuse Patient Records regulations: The Federal rules restrict any use of the information to criminally investigate or prosecute any alcohol or drug abuse patient.[facility] [place] CampusIn the event this information is protected by the Federal Confidentiality of Alcohol and Drug Abuse Patient Records regulations: The Federal rules restrict any use of the information to criminally investigate or prosecute any alcohol or drug abuse patient.[facility] [place] CampusIn the event this information is protected by the Federal Confidentiality of Alcohol and Drug Abuse Patient Records regulations: The Federal rules restrict any use of the information to criminally investigate or prosecute any alcohol or drug abuse patient.[facility] [place] CampusIn the event this information is protected by the Federal Confidentiality of Alcohol and Drug Abuse Patient Records regulations: The Federal rules restrict any use of the information to criminally investigate or prosecute any alcohol or drug abuse patient.[facility] [place] CampusIn the event this information is protected by the Federal Confidentiality of Alcohol and Drug Abuse Patient Records regulations: The Federal rules restrict any use of the information to criminally investigate or prosecute any alcohol or drug abuse patient.[facility] [place] CampusIn the event this information is protected by the Federal Confidentiality of Alcohol and Drug Abuse Patient Records regulations: The Federal rules restrict any use of the information to criminally investigate or prosecute any alcohol or drug abuse patient.[facility] [place] CampusIn the event this information is protected by the Federal Confidentiality of Alcohol and Drug Abuse Patient Records regulations: The Federal rules restrict any use of the information to criminally investigate or prosecute any alcohol or drug abuse patient.[facility] CampusIn the event this information is protected by the Federal Confidentiality of Alcohol and Drug Abuse Patient Records regulations: The Federal rules restrict any use of the information to criminally investigate or prosecute any alcohol or drug abuse patient.[facility] CampusIn the event this information is protected by the Federal Confidentiality of Alcohol and Drug Abuse Patient Records regulations: The Federal rules restrict any use of the information to criminally investigate or prosecute any alcohol or drug abuse patient.[facility] CampusIn the event this information is protected by the Federal Confidentiality of Alcohol and Drug Abuse Patient Records regulations: The Federal rules restrict any use of the information to criminally investigate or prosecute any alcohol or drug abuse patient.[facility] CampusIn the event this information is protected by the Federal Confidentiality of Alcohol and Drug Abuse Patient Records regulations: The Federal rules restrict any use of the information to criminally investigate or prosecute any alcohol or drug abuse patient.[facility] CampusIn the event this information is protected by the Federal Confidentiality of Alcohol and Drug Abuse Patient Records regulations: The Federal rules restrict any use of the information to criminally investigate or prosecute any alcohol or drug abuse patient.[facility] CampusIn the event this information is protected by the Federal Confidentiality of Alcohol and Drug Abuse Patient Records regulations: The Federal rules restrict any use of the information to criminally investigate or prosecute any alcohol or drug abuse patient.[facility] CampusIn the event this information is protected by the Federal Confidentiality of Alcohol and Drug Abuse Patient Records regulations: The Federal rules restrict any use of the information to criminally investigate or prosecute any alcohol or drug abuse patient.[facility] [place] [facility] Care Teams (unrecognized sec tion and content) Mason Tender Restoration Labor Relationship Specialty Start Date End Date Apollo Melo MD [address] [place] [address] PCP - General Family Practice 07/18/20 Sharon Guzman MD [address] [place] [address] Referring Internal Medicine 07/15/20 Sharon Guzman MD [address] [place] [address] Home Care Physician Internal Medicine 07/15/20 Mona King RN Specialty Sports Intern Oncology 07/30/20 Maliha Lacy, HÉCTOR [address] [facility] [place] [address] Instrumentation Specialist Hematology/Oncology 11/30/21 Mason Tender Restoration Labor Relationship Specialty Start Date End Date Apollo Melo MD [address] [place] [address] PCP - General Family Practice 07/18/20 Sharon Guzman MD [address] [address] Referring Internal Medicine 07/15/20 Sharon Guzman MD [address] [place] [address] Home Care Physician Internal Medicine 07/15/20 Mona King RN Specialty Sports Intern Oncology 07/30/20 Maliha Lacy, RN [address] [place] [address] Instrumentation Specialist Hematology/Oncology 11/30/21 Mason Tender Restoration Labor Relationship Specialty Start Date End Date Apollo Melo MD [address] [place] [address] PCP - General Family Practice 07/18/20 Sharon Guzman MD [address] [place] [address] Referring Internal Medicine 07/15/20 Sharon Guzman MD [address] [place] [address] Home Care Physician Internal Medicine 07/15/20 Mona King RN Specialty Sports Intern Oncology 07/30/20 Maliha Lacy, RN [address] [facility] [place] [address] Instrumentation Specialist Hematology/Oncology 11/30/21 Mason Tender Restoration Labor Relationship Specialty Start Date End Date Apollo Melo MD [address] [place] [address] PCP - General Family Practice 07/18/20 Sharon Guzman MD [address] [place] [address] Referring Internal Medicine 07/15/20 Sharon Guzman MD [address] [address] Home Care Physician Internal Medicine 07/15/20 Mona King RN Specialty Sports Intern Oncology 07/30/20 Maliha Lacy, RN [address] [facility] [place] [address] Instrumentation Specialist Hematology/Oncology 11/30/21 Mason Tender Restoration Labor Relationship Specialty Start Date End Date Apollo Melo MD [address] [place] [address] PCP - General Family Practice 07/18/20 Sharon Guzman MD [address] [facility] [place] [address] Referring Internal Medicine 07/15/20 Sharon Guzman MD [address] [facility] [place] [address] Home Care Physician Internal Medicine 07/15/20 Mona King RN Specialty Sports Intern Oncology 07/30/20 Maliha Lacy, RN [address] [place] [facility] [place] [address] Instrumentation Specialist Hematology/Oncology 11/30/21 Mason Tender Restoration Labor Relationship Specialty Start Date End Date Apollo Melo MD [address] [place] [address] PCP - General Family Practice 07/18/20 Sharon Guzman MD [address] [facility] [place] [address] Referring Internal Medicine 07/15/20 Sharon Guzman MD [address] [facility] [place] [address] Home Care Physician Internal Medicine 07/15/20 Mona King RN Specialty Sports Intern Oncology 07/30/20 Maliha Lacy, HÉCTOR [address] [facility] [place] [address] Instrumentation Specialist Hematology/Oncology 11/30/21 Mason Tender Restoration Labor Relationship Specialty Start Date End Date Apollo Melo MD [address] [place] [address] PCP - General Family Practice 07/18/20 Sharon Guzman MD [address] [facility] [address] [facility] [place] [address] Referring Internal Medicine 07/15/20 Sharon Guzman MD [address] [place] [address] Home Care Physician Internal Medicine 07/15/20 Mona King RN Specialty Sports Intern Oncology 07/30/20 Maliha Lacy, HÉCTOR [address] [facility] [place] [address] Instrumentation Specialist Hematology/Oncology 11/30/21 Mason Tender Restoration Labor Relationship Specialty Start Date End Date Apollo Melo MD [address] [place] [address] PCP - General Family Practice 07/18/20 Sharon Guzman MD [address] [place] [address] Referring Internal Medicine 07/15/20 Sharon Guzman MD [address] [place] [address] Home Care Physician Internal Medicine 07/15/20 Mona King RN Specialty Sports Intern Oncology 07/30/20 Maliha Lacy, HÉCTOR [address] [place] [address] Instrumentation Specialist Hematology/Oncology 11/30/21 Mason Tender Restoration Labor Relationship Specialty Start Date End Date Apollo Melo MD [address] [place] [address] PCP - General Family Practice 07/18/20 Sharon Guzman MD [address] [place] [address] Referring Internal Medicine 07/15/20 Sharon Guzman MD [address] [place] [address] Home Care Physician Internal Medicine 07/15/20 Mona King RN Specialty Sports Intern Oncology 07/30/20 Maliha Lacy, HÉCTOR [address] [place] [address] Instrumentation Specialist Hematology/Oncology 11/30/21 Mason Tender Restoration Labor Relationship Specialty Start Date End Date Apollo Melo MD [address] [place] [address] PCP - General Family Practice 07/18/20 Sharon Guzman MD [address] [place] [address] Referring Internal Medicine 07/15/20 Sharon Guzman MD [address] [place] [address] [place] [address] Home Care Physician Internal Medicine 07/15/20 Mona King RN Specialty Sports Intern Oncology 07/30/20 Maliha Lacy, HÉCTOR [address] [place] [address] Instrumentation Specialist Hematology/Oncology 11/30/21 Mason Tender Restoration Labor Relationship Specialty Start Date End Date Apollo Melo MD [address] [place] [address] PCP - General Family Practice 07/18/20 Sharon Guzman MD [address] [place] [address], [place] [address] Referring Internal Medicine 07/15/20 Sharon Guzman MD [address] [place] [address], [place] [address] Home Care Physician Internal Medicine 07/15/20 Mona King RN Specialty Sports Intern Oncology 07/30/20 Maliha Lacy, RN [address] [facility] [place] [address] Instrumentation Specialist Hematology/Oncology 11/30/21 Mason Tender Restoration Labor Relationship Specialty Start Date End Date Apollo Melo MD [address] [place] [address] PCP - General Family Practice 07/18/20 Sharon Guzman MD [address] [place] [address] Referring Internal Medicine 07/15/20 Sharon Guzman MD [address] [facility] [place] [address] Home Care Physician Internal Medicine 07/15/20 Maliha Lacy RN [address] [facility] [place] [address] Specialty Sports Intern Hematology/Oncology 11/30/21 Mason Tender Restoration Labor Relationship Specialty Start Date End Date Apollo Melo MD [address] [place] [address] PCP - General Family Practice 07/18/20 Sharon Guzman MD [address] [facility] [place] [address] Referring Internal Medicine 07/15/20 Sharon Guzman MD [address] [place] [address], [place] [address] Home Care Physician Internal Medicine 07/15/20 Maliha Lacy RN [address] [facility] [place] [address] Specialty Sports Intern Hematology/Oncology 11/30/21 Mason Tender Restoration Labor Relationship Specialty Start Date End Date Apollo Melo MD [address] [facility] [place] [address] PCP - General Family Practice 07/18/20 Sharon Guzman MD [address] [address] [facility] [place] [address] Referring Internal Medicine 07/15/20 Sharon Guzman MD [address] [facility] [place] [address] Home Care Physician Internal Medicine 07/15/20 Maliha Lacy, RN [address] [facility] [place] [address] Specialty Sports Intern Hematology/Oncology 11/30/21 Mason Tender Restoration Labor Relationship Specialty Start Date End Date Apollo Melo MD [address] [facility] [place] [place] [address] PCP - General Family Practice 07/18/20 Sharon Guzman MD [address] [facility] [address] [facility] [place] [address] Referring Internal Medicine 07/15/20 Sharon Guzman MD [address] [place] [address] Home Care Physician Internal Medicine 07/15/20 Maliha Lacy, RN [address] DICKETNAMiguel Angel [facility] [place] [address] Specialty Sports Intern Hematology/Oncology 11/30/21 Mason Tender Restoration Labor Relationship Specialty Start Date End Date Apollo Melo MD [address] [facility] [place] [place] [address] PCP - General Family Practice 07/18/20 Sharon Guzman MD [address] [facility] [place] [address] Referring Internal Medicine 07/15/20 Sharon Guzman MD [address] [facility] [place] [address] Home Care Physician Internal Medicine 07/15/20 Maliha Lacy, HÉCTOR [address] [facility] [place] [address] Specialty Sports Intern Hematology/Oncology 11/30/21 Mason Tender Restoration Labor Relationship Specialty Start Date End Date Apollo Melo MD [address] [facility] [place] [place] [address] PCP - General Family Practice 07/18/20 Sharon Guzman MD [address] [place] [address] Referring Internal Medicine 07/15/20 Sharon Guzman MD [address] [place] [address], [place] [address] Home Care Physician Internal Medicine 07/15/20 Maliha Lacy, HÉCTOR [address] [facility] [place] [address] Specialty Sports Intern Hematology/Oncology 11/30/21 Mason Tender Restoration Labor Relationship Specialty Start Date End Date Apollo Melo MD [address] [place] [address] PCP - General Family Practice 07/18/20 Sharon Guzman MD [address] [facility] [address] [facility] [place] [address] Referring Internal Medicine 07/15/20 Sharon Guzman MD [address] [facility] [place] [address] Home Care Physician Internal Medicine 07/15/20 Maliha Lacy, HÉCTOR [address] [place] [facility] [place] [address] Specialty Sports Intern Hematology/Oncology 11/30/21 Mason Tender Restoration Labor Relationship Specialty Start Date End Date Apollo Melo MD [address] [facility] [place] [place] [address] PCP - General Family Practice 07/18/20 Sean Rodriguez MD [address] [facility] [place] [address] PCP - hematology/oncology Hematology/Oncology 04/05/22 Sharon Guzman MD [address] [facility] [place] [address] Referring Internal Medicine 07/15/20 Sharon Guzman MD [address] [facility] [place] [address] Home Care Physician Internal Medicine 07/15/20 Maliha Lacy, HÉCTOR [address] [place] [facility] [place] [address] Specialty Sports Intern Hematology/Oncology 11/30/21 Mason Tender Restoration Labor Relationship Specialty Start Date End Date Apollo Melo MD [address] [facility] [place] [place] [address] PCP - General Family Practice 07/18/20 Sean Rodriguez MD [address] [place] [facility] [place] [address] PCP - hematology/oncology Hematology/Oncology 04/05/22 Sharon Guzman MD [address] [facility] [place] [address] Referring Internal Medicine 07/15/20 Sharon Guzman MD [address] [facility] [place] [address] Home Care Physician Internal Medicine 07/15/20 Maliha Lacy, HÉCTOR [address] DICKETNAMiguel Angel [facility] [place] [address] Specialty Sports Intern Hematology/Oncology 11/30/21 Mason Tender Restoration Labor Relationship Specialty Start Date End Date Apollo Melo MD [address] [facility] [place] [place] [address] PCP - General Family Practice 07/18/20 Sean Rodriguez MD [address] DICKETNAMiguel [place] [address] PCP - hematology/oncology Hematology/Oncology 04/05/22 Sharon Guzman MD [address] [facility] [place] [address] Referring Internal Medicine 07/15/20 Sharon Guzman MD [address] [facility] [place] [address] Home Care Physician Internal Medicine 07/15/20 Maliha Lacy RN [address] [facility] [place] [address] Specialty Sports Intern Hematology/Oncology 11/30/21 Mason Tender Restoration Labor Relationship Specialty Start Date End Date Apollo Melo MD [address] [facility] [place] [place] [address] PCP - General Family Practice 07/18/20 Sean Rodriguez MD [address] [facility] [place] [address] PCP - hematology/oncology Hematology/Oncology 04/05/22 Sharon Guzman MD [address] [facility] [place] [address] Referring Internal Medicine 07/15/20 Sharon Guzman MD [address] [facility] [place] [address] Home Care Physician Internal Medicine 07/15/20 Maliha Lacy, HÉCTOR [address] [place] [address] Specialty Sports Intern Hematology/Oncology 11/30/21 Mason Tender Restoration Labor Relationship Specialty Start Date End Date Apollo Melo MD [address] [facility] [place] [place] [address] PCP - General Family Practice 07/18/20 Sean Rodriguez MD [address] MALCOLMMiguel [place] [address] PCP - hematology/oncology Hematology/Oncology 04/05/22 Sharon Guzman MD [address] [facility] [place] [address] Referring Internal Medicine 07/15/20 Sharon Guzman MD [address] [facility] [place] [address] Home Care Physician Internal Medicine 07/15/20 Maliha Lacy, HÉCTOR [address] [place] [address] Specialty Sports Intern Hematology/Oncology 11/30/21 Mason Tender Restoration Labor Relationship Specialty Start Date End Date Apollo Melo MD [address] [place] [address] PCP - General Family Medicine 07/18/20 Sean Rodriguez MD [address] [place] [facility] [place] [address] PCP - hematology/oncology Hematology/Oncology 04/05/22 Sharon Guzman MD [address] [facility] [place] [address] Referring Internal Medicine 07/15/20 Sharon Guzman MD [address] [facility] [place] [address] Home Care Provider Internal Medicine 07/15/20 Maliha Lacy, HÉCTOR [address] [facility] [place] [address] Specialty Sports Intern Hematology/Oncology 11/30/21 Mason Tender Restoration Labor Relationship Specialty Start Date End Date Apollo Melo MD [address] [place] [address] PCP - General Family Medicine 07/18/20 Sean Rodriguez MD [address] [place] [facility] [place] [address] PCP - hematology/oncology Hematology/Oncology 04/05/22 Sharon Guzman MD [address] [facility] [place] [address] Referring Internal Medicine 07/15/20 Sharon Guzman MD [address] [facility] [place] [address] Home Care Provider Internal Medicine 07/15/20 Maliha Lacy, HÉCTOR [address] [place] [facility] [address] Specialty Sports Intern Hematology/Oncology 11/30/21 Mason Tender Restoration Labor Relationship Specialty Start Date End Date Apollo Melo MD [address] [facility] [place] [place] [address] PCP - General Family Medicine 07/18/20 Sean Rodriguez MD [address] [facility] [place] [address] PCP - hematology/oncology Hematology/Oncology 04/05/22 Sharon Guzman MD [address] [facility] [place] [address] Referring Internal Medicine 07/15/20 Sharon Guzman MD [address] [facility] [place] [address] Home Care Provider Internal Medicine 07/15/20 Maliha Lacy, HÉCTOR [address] MALCOLMMiguel [place] [address] Specialty Sports Intern Hematology/Oncology 11/30/21 Mason Tender Restoration Labor Relationship Specialty Start Date End Date Apollo Melo MD [address] [facility] [place] [place] [address] PCP - General Family Medicine 07/18/20 Sean Rodriguez MD [address] [facility] [place] [address] PCP - hematology/oncology Hematology/Oncology 04/05/22 Sharon Guzman MD [address] [facility] [place] [address] Referring Internal Medicine 07/15/20 Sharon Guzman MD [address] [facility] [place] [address] Home Care Provider Internal Medicine 07/15/20 Maliha Lacy, HÉCTOR [address] [facility] [place] [address] Specialty Sports Intern Hematology/Oncology 11/30/21 Mason Tender Restoration Labor Relationship Specialty Start Date End Date Apollo Melo MD [address] [place] [address] PCP - General Family Medicine 07/18/20 Sean Rodriguez MD [address] [facility] [place] [place] [address] PCP - hematology/oncology Hematology/Oncology 04/05/22 Sharon Guzman MD [address] [facility] [place] [address] Referring Internal Medicine 07/15/20 Sharon Guzman MD [address] [facility] [place] [address] Home Care Provider Internal Medicine 07/15/20 Maliha Lacy, HÉCTOR [address] [place] [address] Specialty Sports Intern Hematology/Oncology 11/30/21 Mason Tender Restoration Labor Relationship Specialty Start Date End Date Apollo Melo MD [address] [place] [address] PCP - General Family Medicine 07/18/20 Sean Rodriguez MD [address] [place] [address] PCP - hematology/oncology Hematology/Oncology 04/05/22 Sharon Guzman MD [address] [facility] [place] [address] Referring Internal Medicine 07/15/20 Sharon Guzman MD [address] [facility] [place] [address] Home Care Provider Internal Medicine 07/15/20 Maliha Lacy, HÉCTOR [address] [place] [address] Specialty Sports Intern Hematology/Oncology 11/30/21 Mason Tender Restoration Labor Relationship Specialty Start Date End Date Apollo Melo MD [address] [place] [address] PCP - General Family Medicine 07/18/20 Sean Rodriguez MD [address] [place] [facility] [place] [address] PCP - hematology/oncology Hematology/Oncology 04/05/22 Sharon Guzman MD [address] [place] [address], [place] [address] Referring Internal Medicine 07/15/20 Sharon Guzman MD [address] [place] [address], [place] [address] Home Care Provider Internal Medicine 07/15/20 Maliha Lacy RN [address] [place] [facility] [address] Specialty Sports Intern Hematology/Oncology 11/30/21 Mason Tender Restoration Labor Relationship Specialty Start Date End Date Apollo Melo MD [address] [facility] [place] [place] [address] PCP - General Family Medicine 07/18/20 Sean Rodriguez MD [address] [place] [facility] [place] [address] PCP - hematology/oncology Hematology/Oncology 04/05/22 Sharon Guzman MD [address] [place] [address], [place] [address] Referring Internal Medicine 07/15/20 Sharon Guzman MD [address] [facility] [place] [address] Home Care Provider Internal Medicine 07/15/20 Maliha Lacy RN [address] DICKETNAMiguel Angel [facility] [place] [address] Specialty Sports Intern Hematology/Oncology 11/30/21 Mason Tender Restoration Labor Relationship Specialty Start Date End Date Apollo Melo MD [address] [place] [address] PCP - General Family Medicine 07/18/20 Sean Rodriguez MD [address] [facility] [place] [address] PCP - hematology/oncology Hematology/Oncology 04/05/22 Sharon Guzman MD [address] [place] [address], [place] [address] Referring Internal Medicine 07/15/20 Sharon Guzman MD [address] [place] [address], [place] [address] Home Care Provider Internal Medicine 07/15/20 Maliha Lacy RN [address] [facility] [place] [address] Specialty Sports Intern Hematology/Oncology 11/30/21 Mason Tender Restoration Labor Relationship Specialty Start Date End Date Apollo Melo MD [address] [place] [address] PCP - General Family Medicine 07/18/20 Sean Rodriguez MD [address] [place] [facility] [address] PCP - hematology/oncology Hematology/Oncology 04/05/22 Sharon Guzman MD [address] [place] [address], [place] [address] Referring Internal Medicine 07/15/20 Sharon Guzman MD [address] [facility] [place] [address] Home Care Provider Internal Medicine 07/15/20 Maliha Lacy RN [address] DICK[address] [place] [address] Specialty Sports Intern Hematology/Oncology 11/30/21 Mason Tender Restoration Labor Relationship Specialty Start Date End Date Apollo Melo MD [address] [facility] [place] [place] [address] PCP - General Family Medicine 07/18/20 Sean Rodriguez MD [address] [facility] [place] [address] PCP - hematology/oncology Hematology/Oncology 04/05/22 Sharon Guzman MD [address] [facility] [place] [address] Referring Internal Medicine 07/15/20 Sharon Guzman MD [address] [facility] [place] [address] Home Care Provider Internal Medicine 07/15/20 Maliha Lacy RN [address] DICKET[address]iguel [place] [address] Specialty Sports Intern Hematology/Oncology 11/30/21 Mason Tender Restoration Labor Relationship Specialty Start Date End Date Apollo Melo MD [address] [facility] [place] [address] PCP - General Family Medicine 07/18/20 Sean Rodriguez MD [address] DICK[address]uel [place] [address] PCP - hematology/oncology Hematology/Oncology 04/05/22 Sharon Guzman MD [address] [facility] [place] [address] Referring Internal Medicine 07/15/20 Sharon Guzman MD [address] [facility] [place] [address] Home Care Provider Internal Medicine 07/15/20 Maliha Lacy, HÉCTOR [address] [place] [address] Specialty Sports Intern Hematology/Oncology 11/30/21 Mason Tender Restoration Labor Relationship Specialty Start Date End Date Apollo Melo MD [address] [facility] [place] [place] [address] PCP - General Family Medicine 07/18/20 Sean Rodriguez MD [address] [facility] [place] [address] PCP - hematology/oncology Hematology/Oncology 04/05/22 Sharon Guzman MD [address] [facility] [place] [address] Referring Internal Medicine 07/15/20 Sharon Guzman MD [address] [facility] [place] [address] Home Care Provider Internal Medicine 07/15/20 Maliha Lacy, HÉCTOR [address] [place] [address] Specialty Sports Intern Hematology/Oncology 11/30/21 Mason Tender Restoration Labor Relationship Specialty Start Date End Date Apollo Melo MD [address] [place] [address] PCP - General Family Medicine 07/18/20 Sean Rodriguez MD [address] [place] [address] PCP - hematology/oncology Hematology/Oncology 04/05/22 Sharon Guzman MD [address] [facility] [place] [address] Referring Internal Medicine 07/15/20 Sharon Guzman MD [address] [facility] [place] [address] Home Care Provider Internal Medicine 07/15/20 Maliha Lacy, HÉCTOR [address] [facility] [place] [address] Specialty Sports Intern Hematology/Oncology 11/30/21 Mason Tender Restoration Labor Relationship Specialty Start Date End Date Apollo Melo MD [address] [place] [address] PCP - General Family Medicine 07/18/20 Sean Rodriguez MD [address] DICK[address] Angel [facility] [place] [address] PCP - hematology/oncology Hematology/Oncology 04/05/22 Sharon Guzman MD [address] [facility] [place] [address] Referring Internal Medicine 07/15/20 Sharon Guzman MD [address] [facility] [place] [address] Home Care Provider Internal Medicine 07/15/20 Maliha Lacy, HÉCTOR [address] [place] [address] Specialty Sports Intern Hematology/Oncology 11/30/21 Mason Tender Restoration Labor Relationship Specialty Start Date End Date Apollo Melo MD [address] [facility] [place] [address] PCP - General Family Medicine 07/18/20 Sean Rodriguez MD [address] [facility] [place] [address] PCP - hematology/oncology Hematology/Oncology 04/05/22 Sharon Guzman MD [address] [facility] [place] [address] Referring Internal Medicine 07/15/20 Sharon Guzman MD [address] [facility] [place] [address] Home Care Provider Internal Medicine 07/15/20 Maliha Lacy, HÉCTOR [address] [facility] [place] [address] Specialty Sports Intern Hematology/Oncology 11/30/21 Mason Tender Restoration Labor Relationship Specialty Start Date End Date Apollo Melo MD [address] [facility] [place] [place] [address] PCP - General Family Medicine 07/18/20 Sean Rodriguez MD [address] [place] [facility] [address] PCP - hematology/oncology Hematology/Oncology 04/05/22 Sharon Guzman MD [address] [facility] [place] [address] Referring Internal Medicine 07/15/20 Sharon Guzman MD [address] [facility] [place] [address] Home Care Provider Internal Medicine 07/15/20 Maliha Lacy, HÉCTOR [address] [facility] [place] [address] Specialty Sports Intern Hematology/Oncology 11/30/21 Mason Tender Restoration Labor Relationship Specialty Start Date End Date Apollo Melo MD [address] [place] [address] PCP - General Family Medicine 07/18/20 Sean Rodriguez MD [address] [place] [address] PCP - hematology/oncology Hematology/Oncology 04/05/22 Sharon Guzman MD [address] [facility] [place] [address] Referring Internal Medicine 07/15/20 Sharon Guzman MD [address] [facility] [place] [address] Home Care Provider Internal Medicine 07/15/20 Maliha Lacy RN [address] [place] [address] Specialty Sports Intern Hematology/Oncology 11/30/21 Mason Tender Restoration Labor Relationship Specialty Start Date End Date Apollo Melo MD [address] [place] [address] PCP - General Family Medicine 07/18/20 Sean Rodriguez MD [address] [place] [address] PCP - hematology/oncology Hematology/Oncology 04/05/22 Sharon Guzman MD [address] [facility] [place] [address] Referring Internal Medicine 07/15/20 Sharon Guzman MD [address] [facility] [place] [address] Home Care Provider Internal Medicine 07/15/20 Maliha Lacy RN [address] [place] [address] Specialty Sports Intern Hematology/Oncology 11/30/21 Mason Tender Restoration Labor Relationship Specialty Start Date End Date Apollo Melo MD [address] [place] [address] PCP - General Family Medicine 07/18/20 Sean Rodriguez MD [address] [place] [address] PCP - hematology/oncology Hematology/Oncology 04/05/22 Sharon Guzman MD [address] [place] [address], [place] [address] Referring Internal Medicine 07/15/20 Sharon Guzman MD [address] [place] [address], [place] [address] Home Care Provider Internal Medicine 07/15/20 Maliha Lacy, HÉCTOR [address] [place] [address] Specialty Sports Intern Hematology/Oncology 11/30/21 Mason Tender Restoration Labor Relationship Specialty Start Date End Date Apollo Melo MD [address] [place] [address] PCP - General Family Medicine 07/18/20 Sean Rodriguez MD [address] [facility] [place] [address] PCP - hematology/oncology Hematology/Oncology 04/05/22 Sharon Guzman MD [address] [facility] [place] [address] Referring Internal Medicine 07/15/20 Sharon Guzman MD [address] [place] [address], [place] [address] Home Care Provider Internal Medicine 07/15/20 Maliha Lacy, HÉCTOR [address] DICKET[address]iguel Angel [facility] [place] [address] Specialty Sports Intern Hematology/Oncology 11/30/21 Mason Tender Restoration Labor Relationship Specialty Start Date End Date Apollo Melo MD [address] [place] [address] PCP - General Family Medicine 07/18/20 Sean Rodriguez MD [address] [facility] [place] [address] PCP - hematology/oncology Hematology/Oncology 04/05/22 Sharon Guzman MD [address] [place] [address], [place] [address] Referring Internal Medicine 07/15/20 Sharon Guzman MD [address] [facility] [place] [address] Home Care Provider Internal Medicine 07/15/20 Maliha Lacy RN [address] [facility] [place] [address] Specialty Sports Intern Hematology/Oncology 11/30/21 Mason Tender Restoration Labor Relationship Specialty Start Date End Date Apollo Melo MD [address] [place] [address] PCP - General Family Medicine 07/18/20 Sean Rodriguez MD [address] [facility] [place] [address] PCP - hematology/oncology Hematology/Oncology 04/05/22 Sharon Guzman MD [address] [facility] [place] [address] Referring Internal Medicine 07/15/20 Sharon Guzmna MD [address] [facility] [place] [address] Home Care Provider Internal Medicine 07/15/20 Maliha Lacy RN [address] [place] [address] Specialty Sports Intern Hematology/Oncology 11/30/21 Mason Tender Restoration Labor Relationship Specialty Start Date End Date Apollo Melo MD [address] [facility] [place] [place] [address] PCP - General Family Medicine 07/18/20 Sean Rodriguez MD [address] [facility] [place] [address] PCP - hematology/oncology Hematology/Oncology 04/05/22 Sharon Guzman MD [address] [facility] [place] [address] Referring Internal Medicine 07/15/20 Sharon Guzman MD [address] [facility] [place] [address] Home Care Provider Internal Medicine 07/15/20 Maliha Lacy RN [address] DICK[address] Angel [facility] [place] [address] Specialty Sports Intern Hematology/Oncology 11/30/21 Mason Tender Restoration Labor Relationship Specialty Start Date End Date Apollo Melo MD [address] [facility] [place] [address] PCP - General Family Medicine 07/18/20 Sean Rodriguez MD [address] [facility] [place] [address] PCP - hematology/oncology Hematology/Oncology 04/05/22 Sharon Guzman MD [address] [facility] [place] [address] Referring Internal Medicine 07/15/20 Sahron Guzman MD [address] [facility] [place] [address] Home Care Provider Internal Medicine 07/15/20 Maliha Lacy, RN [address] [facility] [place] [address] Specialty Sports Intern Hematology/Oncology 11/30/21 Mason Tender Restoration Labor Relationship Specialty Start Date End Date Apollo Melo MD [address] [place] [address] PCP - General Family Medicine 07/18/20 Sean Rodriguez MD [address] [place] [address] PCP - Hematology/Oncology Hematology/Oncology 04/05/22 Sharon Guzman MD [address] [facility] [place] [address] Referring Internal Medicine 07/15/20 Sharon Guzman MD [address] [facility] [place] [address] Home Care Provider Internal Medicine 07/15/20 Maliha Lacy, HÉCTOR [address] [facility] [place] [address] Specialty Sports Intern Hematology/Oncology 11/30/21 Mason Tender Restoration Labor Relationship Specialty Start Date End Date Apollo Melo MD [address] [place] [address] PCP - General Family Medicine 07/18/20 Sean Rodriguez MD [address] DICK[address] Angel [place], [place] [address] PCP - Hematology/Oncology Hematology/Oncology 04/05/22 Sharon Guzman MD [address] [place] [address] Referring Internal Medicine 07/15/20 Sharon Guzman MD [address] [place] [address] Home Care Provider Internal Medicine 07/15/20 Maliha Lacy, RN [address] [facility] [place], [place] [address] Specialty Sports Intern Hematology/Oncology 11/30/21 Mason Tender Restoration Labor Relationship Specialty Start Date End Date Apollo Melo MD [address] [place], [place] [address] PCP - General Family Medicine 07/18/20 Sean Rodriguez MD [address] [place] [address] PCP - Hematology/Oncology Hematology/Oncology 04/05/22 Sharon Guzman MD [address] [facility] [place] [address] Referring Internal Medicine 07/15/20 Sharon Guzman MD [address] [place] [address] Home Care Provider Internal Medicine 07/15/20 Maliha Lacy RN [address] [place] [address] Specialty Sports Intern Hematology/Oncology 11/30/21 Mason Tender Restoration Labor Relationship Specialty Start Date End Date Apollo Melo MD [address] [place] [address] PCP - General Family Medicine 07/18/20 Sharon Guzman MD [address] [facility] [place] [address] Referring Internal Medicine 07/15/20 Sharon Guzman MD [address] [facility] [place] [address] Home Care Provider Internal Medicine 07/15/20 Maliha Lacy, HÉCTOR [address] [place] [address] Specialty Sports Intern Hematology/Oncology 11/30/21 Francisco Javier Perez MD [address] [place] [address] Hematology/Oncology 05/12/23 Mason Tender Restoration Labor Relationship Specialty Start Date End Date Apollo Melo MD [address] [facility] [place] [address] PCP - General Family Medicine 07/18/20 Sharon Guzman MD [address] [facility] [place] [address] Referring Internal Medicine 07/15/20 Sharon Guzman MD [address] [facility] [place] [address] Home Care Provider Internal Medicine 07/15/20 Maliha Lacy, HÉCTOR [address] [place] [address] Specialty Sports Intern Hematology/Oncology 11/30/21 Francisco Javier Perez MD [address] [place] [address] Hematology/Oncology 05/12/23 Mason Tender Restoration Labor Relationship Specialty Start Date End Date Apollo Melo MD [address] [place] [address] PCP - General Family Medicine 07/18/20 Sharon Guzman MD [address] [facility] [place] [address] Referring Internal Medicine 07/15/20 Sharon Guzman MD [address] [facility] [place] [address] Home Care Provider Internal Medicine 07/15/20 Maliha Lacy RN [address] [place] [address] Specialty Sports Intern Hematology/Oncology 11/30/21 Francisco Javier Perez MD [address] [place] [address] Hematology/Oncology 05/12/23 Mason Tender Restoration Labor Relationship Specialty Start Date End Date Apollo Melo MD [address] [place] [address] PCP - General Family Medicine 07/18/20 Sharon Guzman MD [address] [facility] [place] [address] Referring Internal Medicine 07/15/20 Sharon Guzman MD [address] [facility] [place] [address] Home Care Provider Internal Medicine 07/15/20 Maliha Lacy, HÉCTOR [address] [facility] [place] [address] Specialty Sports Intern Hematology/Oncology 11/30/21 Francisco Javier Perez MD [address] [place] [address] Hematology/Oncology 05/12/23 Mason Tender Restoration Labor Relationship Specialty Start Date End Date Apollo Melo MD [address] [place] [address] PCP - General Family Medicine 07/18/20 Sharon Guzman MD [address] [facility] [place] [address] Referring Internal Medicine 07/15/20 Sharon Guzman MD [address] [facility] [place] [address] Home Care Provider Internal Medicine 07/15/20 Maliha Lacy, RN [address] [facility] [place] [address] Specialty Sports Intern Hematology/Oncology 11/30/21 Francisco Javier Perez MD [address] [place] [address] Hematology/Oncology 05/12/23 Mason Tender Restoration Labor Relationship Specialty Start Date End Date Apollo Melo MD [address] [place] [address] PCP - General Family Medicine 07/18/20 Sharon Guzman MD [address] [facility] [place] [address] Referring Internal Medicine 07/15/20 Sharon Guzman MD [address] [facility] [place] [address] Home Care Provider Internal Medicine 07/15/20 Maliha Lacy, HÉCTOR [address] [place] [address] Specialty Sports Intern Hematology/Oncology 11/30/21 Francisco Javier Perez MD [address] [place] [address] Hematology/Oncology 05/12/23 Mason Tender Restoration Labor Relationship Specialty Start Date End Date Apollo Melo MD [address] [place] [address] PCP - General Family Medicine 07/18/20 Sean Rodriguez MD [address] [place] [address] PCP - Hematology/Oncology Hematology/Oncology 04/05/22 05/11/23 Sharon Guzman MD [address] [facility] [place] [address] Referring Internal Medicine 07/15/20 Sharon Guzman MD [address] [facility] [place] [address] Home Care Provider Internal Medicine 07/15/20 Maliha Lacy, RN [address] [place] [address] Specialty Sports Intern Hematology/Oncology 11/30/21 Mason Tender Restoration Labor Relationship Specialty Start Date End Date Apollo Melo MD [address] [place] [address] PCP - General Family Medicine 07/18/20 Sean Rodriguez MD [address] [place] [address] PCP - Hematology/Oncology Hematology/Oncology 04/05/22 05/11/23 Sharon Guzman MD [address] [facility] [place] [address] Referring Internal Medicine 07/15/20 Sharon Guzman MD [address] [facility] [place] [address] Home Care Provider Internal Medicine 07/15/20 Maliha Lcay, HÉCTOR [address] [place] [address] Specialty Sports Intern Hematology/Oncology 11/30/21 Mason Tender Restoration Labor Relationship Specialty Start Date End Date Apollo Melo MD [address] [place] [address] PCP - General Family Medicine 07/18/20 Sean Rodriguez MD [address] [facility] [place] [place] [address] PCP - Hematology/Oncology Hematology/Oncology 04/05/22 05/11/23 Sharon Guzman MD [address] [place] [address] Referring Internal Medicine 07/15/20 Sharon Guzman MD [address] [place] [address] Home Care Provider Internal Medicine 07/15/20 Maliha Lacy, HÉCTOR [address] [facility] [place] [place] [address] Specialty Sports Intern Hematology/Oncology 11/30/21 Mason Tender Restoration Labor Relationship Specialty Start Date End Date Apollo Melo MD [address] [place] [address] PCP - General Family Medicine 07/18/20 Sharon Guzman MD [address] [address] Referring Internal Medicine 07/15/20 Sharon Guzman MD [address] [place] [address] Home Care Provider Internal Medicine 07/15/20 Maliha Lacy, RN [address] [place] [address] Specialty Sports Intern Hematology/Oncology 11/30/21 Francisco Javier Perez MD [address] [place] [address] Hematology/Oncology 05/12/23 Mason Tender Restoration Labor Relationship Specialty Start Date End Date Apollo Melo MD [address] [place] [address] PCP - General Family Medicine 07/18/20 Sharon Guzman MD Referring Internal Medicine 07/15/20 Sharon Guzman MD Home Care Provider Internal Medicine 07/15/20 Maliha Lacy, HÉCTOR [address] [place] [address] Specialty Sports Intern Hematology/Oncology 11/30/21 Francisco Javier Perez MD [address] [place] [address] Hematology/Oncology 05/12/23 Mason Tender Restoration Labor Relationship Specialty Start Date End Date Apollo Melo MD [address] [place] [address] PCP - General Family Medicine 07/18/20 Sharon Guzman MD Referring Internal Medicine 07/15/20 Sharon Guzman MD Home Care Provider Internal Medicine 07/15/20 Maliha Lacy RN [address] [place] [address] Specialty Sports Intern Hematology/Oncology 11/30/21 Francisco Javier Perez MD [address] [place] [address] Hematology/Oncology 05/12/23 Mason Tender Restoration Labor Relationship Specialty Start Date End Date Apollo Melo MD [address] [place] [address] PCP - General Family Medicine 07/18/20 Sharon Guzman MD Referring Internal Medicine 07/15/20 Sharon Guzman MD Home Care Provider Internal Medicine 07/15/20 Maliha Lacy, RN [address] [place] [address] Specialty Sports Intern Hematology/Oncology 11/30/21 Francisco Javier Perez MD [address] [place] [address] Hematology/Oncology 05/12/23 Mason Tender Restoration Labor Relationship Specialty Start Date End Date Apollo Melo MD [address] [place] [address] PCP - General Family Medicine 07/18/20 Sharon Guzman MD Referring Internal Medicine 07/15/20 Sharon Guzman MD Home Care Provider Internal Medicine 07/15/20 Maliha Lacy, HÉCTOR [address] [place] [address] Specialty Sports Intern Hematology/Oncology 11/30/21 Francisco Javier Perez MD [address] [place] [address] Hematology/Oncology 05/12/23 Mason Tender Restoration Labor Relationship Specialty Start Date End Date Apollo Melo MD [address] [facility] [address] PCP - General Family Medicine 07/18/20 Sharon Guzman MD Referring Internal Medicine 07/15/20 Sharon Guzman MD Home Care Provider Internal Medicine 07/15/20 Maliha Lacy RN [address] [place] [address] Specialty Sports Intern Hematology/Oncology 11/30/21 Francisco Javier Perez MD [address] [place] [address] Hematology/Oncology 05/12/23 Mason Tender Restoration Labor Relationship Specialty Start Date End Date Apollo Melo MD [address] [place] [address] PCP - General Family Medicine 07/18/20 Sharon Guzman MD Referring Internal Medicine 07/15/20 Sharon Guzman MD Home Care Provider Internal Medicine 07/15/20 Maliha Lacy, RN [address] [place] [address] Specialty Sports Intern Hematology/Oncology 11/30/21 Francisco Javier Perez MD [address] [place] [address] Hematology/Oncology 05/12/23 Mason Tender Restoration Labor Relationship Specialty Start Date End Date Apollo Melo MD [address] [facility] [place] [address] PCP - General Family Medicine 07/18/20 Sharon Guzman MD Referring Internal Medicine 07/15/20 Sharon Guzman MD Home Care Provider Internal Medicine 07/15/20 Maliha Lacy, HÉCTOR [address] [place] [address] Specialty Sports Intern Hematology/Oncology 11/30/21 Francisco Javier Perez MD [address] [place] [address] Hematology/Oncology 05/12/23 Mason Tender Restoration Labor Relationship Specialty Start Date End Date Apollo Melo MD [address] [facility] [place] [place] [address] PCP - General Family Medicine 07/18/20 Sharon Guzman MD Referring Internal Medicine 07/15/20 Sharon Guzman MD Home Care Provider Internal Medicine 07/15/20 Maliha Lacy RN [address] [place] [address] Specialty Sports Intern Hematology/Oncology 11/30/21 Francisco Javier Perez MD [address] [place] [address] Hematology/Oncology 05/12/23 Mason Tender Restoration Labor Relationship Specialty Start Date End Date Apollo Melo MD [facility] [place] [address] PCP - General Family Medicine 07/18/20 Sharon Guzman MD Referring Internal Medicine 07/15/20 Sharon Guzman MD Home Care Provider Internal Medicine 07/15/20 Maliha Lacy, HÉCTOR [address] [place] [address] Specialty Sports Intern Hematology/Oncology 11/30/21 Francisco Javier Perez MD [address] [place] [address] Hematology/Oncology 05/12/23 Mason Tender Restoration Labor Relationship Specialty Start Date End Date Apollo Melo MD [address] [facility] [place] [phone] PCP - General Family Medicine 07/18/20 Sharon Guzman MD Referring Internal Medicine 07/15/20 Sharon Guzman MD Home Care Provider Internal Medicine 07/15/20 Maliha Lacy, HÉCTOR [address] [place] [address] Specialty Sports Intern Hematology/Oncology 11/30/21 Francisco Javier Perez MD [address] [place] [place] [address] Hematology/Oncology 05/12/23 Mason Tender Restoration Labor Relationship Specialty Start Date End Date Apollo Melo MD [address] [facility] [place] [address] PCP - General Family Medicine 07/18/20 Sharon Guzman MD Referring Internal Medicine 07/15/20 Sharon Guzman MD Home Care Provider Internal Medicine 07/15/20 Maliha Lacy, HÉCTOR [address] [place] [address] Specialty Sports Intern Hematology/Oncology 11/30/21 Francisco Javier Perez MD [address] [place] [place] [address] Hematology/Oncology 05/12/23 Mason Tender Restoration Labor Relationship Specialty Start Date End Date Apollo Melo MD [address] [facility] [place] [place] [address] PCP - General Family Medicine 07/18/20 Sharon Guzman MD Referring Internal Medicine 07/15/20 Sharon Guzman MD Home Care Provider Internal Medicine 07/15/20 Maliha Lacy, RN [address] [place] [address] Specialty Sports Intern Hematology/Oncology 11/30/21 Francisco Javier Perez MD [address] [place] [address] Hematology/Oncology 05/12/23 Mason Tender Restoration Labor Relationship Specialty Start Date End Date Apollo Melo MD [address] [place] [address] PCP - General Family Medicine 07/18/20 Sharon Guzman MD Referring Internal Medicine 07/15/20 Sharon Guzman MD Home Care Provider Internal Medicine 07/15/20 Maliha Lacy, HÉCTOR [address] [facility] [place] [address] Specialty Sports Intern Hematology/Oncology 11/30/21 Francisco Javier Perez MD [address] [place] [address] Hematology/Oncology 05/12/23 Mason Tender Restoration Labor Relationship Specialty Start Date End Date Apollo Melo MD [address] [place] [address] PCP - General Family Medicine 07/18/20 Sharon Guzman MD Referring Internal Medicine 07/15/20 Sharon Guzman MD Home Care Provider Internal Medicine 07/15/20 Maliha Lacy, HÉCTOR [address] [place] [address] Specialty Sports Intern Hematology/Oncology 11/30/21 Francisco Javier Perez MD [address] [place] [address] Hematology/Oncology 05/12/23 Mason Tender Restoration Labor Relationship Specialty Start Date End Date Apollo Melo MD [address] [place] [address] PCP - General Family Medicine 07/18/20 Sharon Guzman MD Referring Internal Medicine 07/15/20 Sharon Guzman MD Home Care Provider Internal Medicine 07/15/20 Maliha Lacy, HÉCTOR [address] [place], [place] [address] Specialty Sports Intern Hematology/Oncology 11/30/21 Francisco Javier Perez MD [address] [place] [address] Hematology/Oncology 05/12/23 Mason Tender Restoration Labor Relationship Specialty Start Date End Date Apollo Melo MD [address] [place], [place] 292[address] [phone] PCP - General Family Medicine 07/18/20 Sharon Guzman MD Referring Internal Medicine 07/15/20 Sharon Guzman MD Home Care Provider Internal Medicine 07/15/20 Mona King RN Specialty Sports Intern Oncology 07/30/20 03/06/22 Mason Tender Restoration Labor Relationship Specialty Start Date End Date Apollo Melo MD [address] [place], [place] [address] [phone] PCP - General Family Medicine 07/18/20 Sharon Guzman MD Referring Internal Medicine 07/15/20 Sharon Guzman MD Home Care Provider Internal Medicine 07/15/20 Maliha Lacy RN [address] [place] [address] Specialty Sports Intern Hematology/Oncology 11/30/21 Francisco Javier Perez MD [address] [place] [address] Hematology/Oncology 05/12/23 Mason Tender Restoration Labor Relationship Specialty Start Date End Date Apollo Melo MD [address] [place] [address] PCP - General Family Medicine 07/18/20 Sharon Guzman MD Referring Internal Medicine 07/15/20 Sharon Guzman MD Home Care Provider Internal Medicine 07/15/20 Maliha Lacy RN [address] [place] [address] Specialty Sports Intern Hematology/Oncology 11/30/21 Francisco Javier Perez MD [address] [place] [address] Hematology/Oncology 05/12/23 Mason Tender Restoration Labor Relationship Specialty Start Date End Date Apollo Melo MD [address] [place] [address] PCP - General Family Medicine 07/18/20 Sharon Guzman MD Referring Internal Medicine 07/15/20 Sharon Guzman MD Home Care Provider Internal Medicine 07/15/20 Maliha Lacy RN [address] [place] [address] Specialty Sports Intern Hematology/Oncology 11/30/21 Francisco Javier Perez MD [address] [place] [address] Hematology/Oncology 05/12/23 Mason Tender Restoration Labor Relationship Specialty Start Date End Date Apollo Melo MD [address] [facility] [place] [address] PCP - General Family Medicine 07/18/20 Sharon Guzman MD Referring Internal Medicine 07/15/20 Sharon Guzman MD Home Care Provider Internal Medicine 07/15/20 Maliha Lacy, RN [address] [place] [address] Specialty Sports Intern Hematology/Oncology 11/30/21 Francisco Javier Perez MD [address] [place] [address] Hematology/Oncology 05/12/23 Mason Tender Restoration Labor Relationship Specialty Start Date End Date Apollo Melo MD [address] [facility] [place] [address] PCP - General Family Medicine 07/18/20 Sharon Guzman MD Referring Internal Medicine 07/15/20 Sharon Guzman MD Home Care Provider Internal Medicine 07/15/20 Maliha Lacy, HÉCTOR [address] [place] [address] Specialty Sports Intern Hematology/Oncology 11/30/21 Francisco Javier Perez MD [address] [place] [address] Hematology/Oncology 05/12/23 Mason Tender Restoration Labor Relationship Specialty Start Date End Date Apollo Melo MD [address] [place] [address] PCP - General Family Medicine 07/18/20 Sharon Guzman MD Referring Internal Medicine 07/15/20 Sharon Guzman MD Home Care Provider Internal Medicine 07/15/20 Maliha aLcy, HÉCTOR [address] [place] [address] Specialty Sports Intern Hematology/Oncology 11/30/21 Francisco Javier Perez MD [address] [place] [address] Hematology/Oncology 05/12/23 Mason Tender Restoration Labor Relationship Specialty Start Date End Date Apollo Melo MD [address] [place] [address] PCP - General Family Medicine 07/18/20 Sharon Guzman MD Referring Internal Medicine 07/15/20 Sharon Guzman MD Home Care Provider Internal Medicine 07/15/20 Maliha Lacy, HÉCTOR [address] [place] [address] Specialty Sports Intern Hematology/Oncology 11/30/21 Francisco Javier Perez MD [address] [place] [address] Hematology/Oncology 05/12/23 Sharda Tsai APRN.CANDY SPREADER HELPER [address] [place] [address] Facilities [employer] Family Medicine 08/18/24 Chavez Bernal CANDLE CUTTER.CANDY SPREADER HELPER [address] [place] [address] Facilities [employer] Family Medicine 08/27/24 Mason Tender Restoration Labor Relationship Specialty Start Date End Date Apollo Melo MD [address] [place] [address] PCP - General Family Medicine 07/18/20 Sharon Guzman MD Referring Internal Medicine 07/15/20 Sharon Guzman MD Home Care Provider Internal Medicine 07/15/20 Maliha Lacy RN [address] [place] [address] Specialty Sports Intern Hematology/Oncology 11/30/21 Francisco Javier Perez MD [address] [place] [address] Hematology/Oncology 05/12/23 Sharda Tsai APRN.CANDY SPREADER HELPER [address] [facility] [place] [address] Facilities [employer] Family Medicine 08/18/24 Chavez Bernal APRN.CANDY SPREADER HELPER [address] [place] [address] Facilities [employer] Family Medicine 08/27/24 Mason Tender Restoration Labor Relationship Specialty Start Date End Date Apollo Melo MD [address] [place] [address] PCP - General Family Medicine 07/18/20 Sharon Guzman MD Referring Internal Medicine 07/15/20 Sharon Guzman MD Home Care Provider Internal Medicine 07/15/20 Maliha Lacy, HÉCTOR [address] [place] [address] Specialty Sports Intern Hematology/Oncology 11/30/21 Francisco Javier Perez MD [address] [place] [address] Hematology/Oncology 05/12/23 Sharda Tsai, SHARAN.CANDY SPREADER HELPER [address] [place] [address] Facilities [employer] Family Medicine 08/18/24 Chavez Bernal APRN.CANDY SPREADER HELPER [address] [place] [address] Facilities [employer] Family Medicine 08/27/24 Mason Tender Restoration Labor Relationship Specialty Start Date End Date Apollo Melo MD [address] [place] [address] PCP - General Family Medicine 07/18/20 Sharon Guzman MD Referring Internal Medicine 07/15/20 Sharon Guzman MD Home Care Provider Internal Medicine 07/15/20 Maliha Lacy, RN [address] [place] [address] Specialty Sports Intern Hematology/Oncology 11/30/21 Francisco Javier Perez MD [address] [place] [address] Hematology/Oncology 05/12/23 Sharda Tsai APRN.CANDY SPREADER HELPER [address] [place] [address] Facilities [employer] [facility] Family Medicine 08/18/24 Chavez Bernal CANDLE CUTTER.CANDY SPREADER HELPER [address] [place] [address] Facilities Flight Check Pilot Family [facility] 08/27/24 Mason Tender Restoration Labor Relationship Specialty Start Date End Date Apollo Melo MD [address] [place] [address] PCP - General Family Medicine 07/18/20 Sharon Guzman MD Referring Internal Medicine 07/15/20 Sharon Guzman MD Home Care Provider Internal Medicine 07/15/20 Maliha Lacy, HÉCTOR [address] [place] [address] Specialty Sports Intern Hematology/Oncology 11/30/21 Francisco Javier Perez MD [address] [place] [address] Hematology/Oncology 05/12/23 Sharda Tsai APRN.CANDY SPREADER HELPER [address] [place] [address] Facilities [employer] [facility] Family Medicine 08/18/24 Chavez Bernal APRN.CANDY SPREADER HELPER [address] [place] [address] Facilities [employer] [facility] Family Medicine 08/27/24 Mason Tender Restoration Labor Relationship Specialty Start Date End Date Apollo Melo MD [address] [place] [address] PCP - General Family Medicine 07/18/20 Sharon Guzman MD Referring Internal Medicine 07/15/20 Sharon Guzman MD Home Care Provider Internal Medicine 07/15/20 Maliha Lacy RN [address] [place] [address] Specialty Sports Intern Hematology/Oncology 11/30/21 Francisco Javier Perez MD [address] [place] [address] Hematology/Oncology 05/12/23 Sharda Tsai APRN.CANDY SPREADER HELPER [address] [place] [address] Facilities Flight [facility] Family Medicine 08/18/24 Chavez Bernal APRN.CANDY SPREADER HELPER [address] [place] [address] Facilities [employer] [facility] Family Medicine 08/27/24 Mason Tender Restoration Labor Relationship Specialty Start Date End Date Apollo Melo MD [address] [place] [address] PCP - General Family Medicine 07/18/20 Sharon Guzman MD Referring Internal Medicine 07/15/20 Sharon Guzman MD Home Care Provider Internal Medicine 07/15/20 Maliha Lacy RN [address] [place] [address] Specialty Sports Intern Hematology/Oncology 11/30/21 Francisco Javier Perez MD [address] [place] [address] Hematology/Oncology 05/12/23 Sharda Tsai APRN.CANDY SPREADER HELPER [address] [facility] [place] [address] Facilities Flight Check [facility] Family Medicine 08/18/24 Chavez Bernal APRN.CANDY SPREADER HELPER [address] [facility] [place] [address] Facilities Flight Check Pilot Family [facility] 08/27/24 Mason Tender Restoration Labor Relationship Specialty Start Date End Date Apollo Melo MD [address] [facility] [place] [address] PCP - General Family Medicine 07/18/20 Sharon Guzman MD Referring Internal Medicine 07/15/20 Sharon Guzman MD Home Care Provider Internal Medicine 07/15/20 Maliha Lacy, HÉCTOR [address] [place] [address] Specialty Sports Intern Hematology/Oncology 11/30/21 Francisco Javier Perez MD [address] [place] [address] Hematology/Oncology 05/12/23 Sharda Tsai APRN.CANDY SPREADER HELPER [address] [facility] [place] [address] Facilities Flight Check Pilot Family [facility] 08/18/24 Chavez Bernal APRN.CANDY SPREADER HELPER [address] [facility] [place] [address] Facilities Flight Check Pilot Family [facility] 08/27/24 Mason Tender Restoration Labor Relationship Specialty Start Date End Date Apollo Melo MD [address] [place] [address] PCP - General Family Medicine 07/18/20 Sharon Guzman MD Referring Internal Medicine 07/15/20 Sharon Guzman MD Home Care Provider Internal Medicine 07/15/20 Maliha Lacy, HÉCTOR [address] [place] [address] Specialty Sports Intern Hematology/Oncology 11/30/21 Francisco Javier Perez MD [address] [place] [address] Hematology/Oncology 05/12/23 Sharda Tsai, CANDLE CUTTER.CANDY SPREADER HELPER [address] [place] [address] Facilities Flight Check Pilot Family [facility] 08/18/24 Chavez Bernal, CANDLE CUTTER.CANDY SPREADER HELPER [address] [place] [address] Facilities Flight Check Pilot Family [facility] 08/27/24 Mason Tender Restoration Labor Relationship Specialty Start Date End Date Apollo Melo MD [address] [place] [address] PCP - General Family Medicine 07/18/20 Sharon Guzman MD Referring Internal Medicine 07/15/20 Sharon Guzman MD Home Care Provider Internal Medicine 07/15/20 Maliha Lacy, RN [address] [place] [address] Specialty Sports Intern Hematology/Oncology 11/30/21 Francisco Javier Perez MD [address] [place] [address] Hematology/Oncology 05/12/23 Sharda Tsai APRN.CANDY SPREADER HELPER [address] [place] [address] Facilities [facility] Family Medicine 08/18/24 Chavez Bernal APRN.CANDY SPREADER HELPER [address] [place] [address] Facilities Flight Check [facility] Family Medicine 08/27/24 Mason Tender Restoration Labor Relationship Specialty Start Date End Date Apollo Melo MD [address] [place] [address] PCP - General Family Medicine 07/18/20 Sharon Guzman MD Referring Internal Medicine 07/15/20 Sharon Guzman MD Home Care Provider Internal Medicine 07/15/20 Maliha Lacy RN [address] [place] [address] Specialty Sports Intern Hematology/Oncology 11/30/21 Francisco Javier Perez MD [address] [place] [address] Hematology/Oncology 05/12/23 Sharda Tsai APRN.CANDY SPREADER HELPER [address] [place] [address] Facilities [employer] [facility] Family Medicine 08/18/24 Chavez Bernal APRN.CANDY SPREADER HELPER [address] [place] [address] Facilities Flight Check [facility] Family Medicine 08/27/24 Mason Tender Restoration Labor Relationship Specialty Start Date End Date Apollo Melo MD [address] [place] [address] PCP - General Family Medicine 07/18/20 Sharon Guzman MD Referring Internal Medicine 07/15/20 Sharon Guzman MD Home Care Provider Internal Medicine 07/15/20 Maliha Lacy, RN [address] [place] [address] Specialty Sports Intern Hematology/Oncology 11/30/21 Francisco Javier Perez MD [address] [place] [address] Hematology/Oncology 05/12/23 Sharda Tsai APRN.CANDY SPREADER HELPER [address] [place] [address] Facilities [employer] [facility] Family Medicine 08/18/24 Chavez Benral APRN.CANDY SPREADER HELPER [address] [place] [address] Facilities [employer] [facility] Family Medicine 08/27/24 Mason Tender Restoration Labor Relationship Specialty Start Date End Date Apollo Melo MD [address] [facility] [place] [address] [phone] PCP - General Family Medicine 07/18/20 Sharon Guzman MD Referring Internal Medicine 07/15/20 Sharon Guzman MD Home Care Provider Internal Medicine 07/15/20 Maliha Lacy, HÉCTOR [address] [place] [address] Specialty Sports Intern Hematology/Oncology 11/30/21 Francisco Javier Perez MD [address] [place] [address] Hematology/Oncology 05/12/23 Sharda Tsai APRN.CANDY SPREADER HELPER [address] [place] [address] Facilities [employer] [facility] Family Medicine 08/18/24 Chavez Bernal, CANDLE CUTTER.CANDY SPREADER HELPER [address] [place] [address] Facilities Flight Check Pilot Family [facility] 08/27/24 Mason Tender Restoration Labor Relationship Specialty Start Date End Date Apollo Melo MD [address] [place] [address] PCP - General Family Medicine 07/18/20 Sharon Guzman MD Referring Internal Medicine 07/15/20 Sharon Guzman MD Home Care Provider Internal Medicine 07/15/20 Maliha Lacy RN [address] [place] [address] Specialty Sports Intern Hematology/Oncology 11/30/21 Francisco Javier Perez MD [address] [place] [address] Hematology/Oncology 05/12/23 Sharda Tsai APRN.CANDY SPREADER HELPER [address] [facility] [place] [address] Facilities Flight Check Pilot Family Medicine 08/18/24 Chavez Bernal APRN.CANDY SPREADER HELPER [address] [facility] [place] [address] Facilities Flight Check Pilot Family Medicine 08/27/24 Mason Tender Restoration Labor Relationship Specialty Start Date End Date Apollo Melo MD [address] [facility] [place] [address] PCP - General Family Medicine 07/18/20 Sahron Guzman MD Referring Internal Medicine 07/15/20 Sharon Guzman MD Home Care Provider Internal Medicine 07/15/20 Maliha Layc RN [address] [place] [address] Specialty Sports Intern Hematology/Oncology 11/30/21 Francisco Javier Perez MD [address] [place] [address] Hematology/Oncology 05/12/23 Chavez Bernal APRN.CANDY SPREADER HELPER [address] [place] [address] Facilities Flight Check Pilot Family [facility] 08/27/24 Mason Tender Restoration Labor Relationship Specialty Start Date End Date Apollo Melo MD [address] [place] [address] PCP - General Family Medicine 07/18/20 Sharon Guzman MD Referring Internal Medicine 07/15/20 Sharon Guzman MD Home Care Provider Internal Medicine 07/15/20 Maliha Lacy, HÉCTOR [address] [place] [address] Specialty Sports Intern Hematology/Oncology 11/30/21 Frnacisco Javier Perez MD [address] [place] [address] Hematology/Oncology 05/12/23 Chavez Bernal APRN.CANDY SPREADER HELPER [address] [place] [address] Facilities [employer] Family Medicine 08/27/24 Team Status: Active Member Role Status Dates Dr. Apollo Melo MD Primary Care Provider Active Team Status: Active Member Role Status Dates Dr. Apollo Melo MD Primary Care Provider Active Start: February 18, 2025 Dr. Rodriog Ceballos MD Admit Provider Active Star t: February 18, 2025 Dr. Rodrigo Ceballos MD Attending Provider Active Start: February 18, 2025 Dr. Rodrigo Ceballos MD Referring Provider Active Start: February 18, 2025 Dr. Nabil Lr MD Emergency Provider Active S tart: February 18, 2025 Inactive Administered Medications - up to 3 most recent administrations Administered Medications (un recognized section and content) Medication Order MAR Action Action Date Dose Rate Site leuprolide 22.5 mg injection (LUPRON DEPOT) 22.5 mg, INTRAMUSCULAR, ONCE, 1 dose, On Mon10/27/23 at 1100, Hazardous Chemotherapy Drug: Use appropriate PPE. Given 10/27/2023 11:15 AM EST 22.5 mg Buttocks, Right zoledronic oo-qleovhpz-1.9NaCl 4 mg iv piggyback 100 mL (ZOMETA) 4 mg, INTRAVENOUS, Administer over 15 Minutes, ONCE, 1 dose, On Mon10/27/23 at 1100, Hazardous Potential Reproductive Risk Drug: Use appropriate PPE. New Bag/Syringe/Bottl e 10/27/2023 10:45 AM EST 4 mg Goals (unrecognized section and content) Goals may be documented in a n alternate section FOR RECORDS PERTAINING TO PATIENTS WHO ARE OR HAVE BEEN ENROLLED IN A CHEMICAL DEPENDENCY/SUBSTANCEABUSE PROGRAM, SOME INFORMATION MAY BE OMITTED. This clinical summary was aggregated from multiple sources. Caution should be exercised in using it in the provision of clinical care. This summary normalizes information from multiple sources, and as a consequence, information in this document may materially change the coding, format and clinical context of patient data. In addition, data may be omitted in some cases. CLINICAL DECISIONS SHOULD BE BASED ON THE PRIMARY CLINICAL RECORDS. [employer] provides no warranty or guarantee of the accuracy or completeness of information in this document.
--- OUTSIDE RECORDS SUMMARY | 2025-02-18 23:51 | XMS RPT_ITS | CCD ---
Author Organization [facility] Care Team Providers Care Press Department Manager Name Role Phone Panda Ba MD Unavailable [...] Care Provider Maliha Lacy RN Unavailable Thomas VEGA, Beejadi N Unavailable Thomas [...] Unavailable Thomas VEGA, Beejadi N Unavailable Tannhof MAT MACHINE OPERATOR.Sharda MIRELES Unavailable Gabe MAT MACHINE OPERATOR.WARP TYING MACHINE TENDER, Chavez Unavailable Tannhof MAT MACHINE OPERATOR.ALINE Sharda Unavailable APOLLO MELO Primary Care Unavailable [...] Provider Tucker VEGA, Dr. Wallace Attending Provider [phone] Tucker VEGA, Dr. Wallace Referring Provider Be VEGA, Dr. Ferrer Emergency Provider FRANCISCO JAVIER PEREZ Referring Unavailable APOLLO MELO Primary Care Unavailable Allergies Allergy Classification Reported Allergen(s) Allergy Type Date of Onset Reaction(s) Facility (20 sources) Doxycycline; Translations: [DOXYCYCLINE] Drug Allergy 12-30-2014 GI Upset [facility] Medications Current Medications Medication Drug Class(es) Dates [...] SYMBICORT 160- 4.5 MCG/ACT AERO BUDESONIDE-FORMOTEROL FUMARATE [id number] Panda Ba MD Start: 03-29-2017 SYMBICORT 160- 4.5 MCG/ACT AERO BUDESONIDE-FORMOTEROL FUMARATE [id number] Panda Ba MD take 2 puff(s) by [...] on above: Take 2 tablets by mo [facility] once daily. Calcium 600mg+Vitamin D3 800 international [...] Comment on above: Take 1 tablet by [facility] twice daily. Take 100 mg by mouth twice daily. Take 1 tablet by [facility] two times a day. docusate sodium 100 [...] Comment on above: Take 1 capsule by [facility] once daily. 24 hr nicotine 0.875 mg/hr [...] release tablet 5 mg polyethylene glycol [phone] mg powder for oral solution (5 sources) [...] Comment on above: Take 1 capsule by [facility] once daily. Completed/Discontinued Medications Medication Drug Class(es) [...] Comment on above: Take 4 tablets by [facility] once daily. Take 4 tablets (1000 mg) [...] 1.25 MG/3ML NEBU as needed ALBUTEROL SULFATE [id number] Panda Ba MD Start: 12-04-2015 End: 07-16-2024 [...] over 15 Minutes, ONCE, 1 dose, On [facility] 12/19/24 at 1030, Hazardous Potential Reproductive Risk Drug: Use appropriate PPE. Start: 09-26-2024 End: 09-26-2024 4 mg, INTRAVENOUS, Administe r over 15 Minutes, ONCE, 1 dose, On [facility] 09/26/24 at 1000, Hazardous Potential Reproductive Risk Drug: Use appropriate PPE. Start: 07-04-2024 End: 07-04-2024 4 mg, INTRAVENOUS, Administe r over 15 Minutes, ONCE, 1 dose, On [facility] 07/04/24 at 1000, Hazardous Potential Reproductive Risk Drug: Use appropriate PPE. Start: 04-11-2024 End: 04-11-2024 zoledronic mp-urwtxmrs-9.9Na Cl 4 mg iv piggyback 100 mL (ZOMETA) Start: 01-18-2024 End: 01-18-2024 zoledronic lz-awqhrwzq-5.9Na Cl 4 mg iv piggyback 100 mL [...] 02-17-2025 Albumin [Mass/Vol] 4.4 g/dL Normal 3.9-4.9 [facility] Comment on above: Order Comment: Hollis gastelum Type: BLOOD SPECIMEN Ordering Facility: [facility] Address: [address] [place] [address] Performed By: #### 2 4323-8 #### [facility] CLIA [id number] [address] ALP [Catalytic activity/Vol] 68 U/L Normal 38-113 [facility] Comment on above: Order Comment: Hollis gastelum Type: BLOOD SPECIMEN Ordering Facility: [facility] Address: [address] [place] [address] Performed By: #### 2 4323-8 #### [facility] CLIA [id number] [address] ALT [Catalytic activity/Vol] 10 U/L Normal 10-54 [facility] Comment on above: Order Comment: Hollis gastelum Type: BLOOD SPECIMEN Ordering Facility: [facility] Address: [address] [place] [address] Performed By: #### 2 4323-8 #### [facility] CLIA [id number] [address] Anion gap [Moles/Vol] 11 mmol/L Normal 8-15 [facility] Comment on above: Order Comment: Speci men Type: BLOOD SPECIMEN Ordering Facility: [facility] Address: [address] [place] [address] Performed By: #### 2 4323-8 #### [facility] CLIA [id number] [address] [place] [address] [place] AST [Catalytic activity/Vol] 21 U/L Normal 14-40 [facility] Comment on above: Order Comment: Speci men Type: BLOOD SPECIMEN Ordering Facility: [facility] Address: [address] [place] [address] Performed By: #### 2 4323-8 #### [facility] CLIA [id number] [address] [place] [address] [place] Bilirubin [Mass/Vol] 0.6 mg/dL Normal 0.2-1.3 [facility] Comment on above: Order Comment: Speci men Type: BLOOD SPECIMEN Ordering Facility: [facility] Address: [address] [place] [address] Performed By: #### 2 4323-8 #### [facility] CLIA [id number] [address] [place] [address] [place] Calcium [Mass/Vol] 9.2 mg/dL Normal 8.5-10.2 [facility] Comment on above: Order Comment: Speci men Type: BLOOD SPECIMEN Ordering Facility: [facility] Address: [address] [place] [address] Performed By: #### 2 4323-8 #### [facility] CLIA [id number] [address] [place] [address] [place] Chloride [Moles/Vol] 105 mmol/L Normal 98-107 [facility] Comment on above: Order Comment: Speci men Type: BLOOD SPECIMEN Ordering Facility: [facility] Address: [address] [place] [address] Performed By: #### 2 4323-8 #### [facility] CLIA [id number] [address] [place] [address] [place] CO2 [Moles/Vol] 25 mmol/L Normal 22-30 [facility] Comment on above: Order Comment: Speci men Type: BLOOD SPECIMEN Ordering Facility: [facility] Address: [address] [place] [address] Performed By: #### 2 4323-8 #### [facility] CLIA [id number] [address] STATES [facility] Creatinine [Mass/Vol] 0.92 mg/dL Normal 0.73-1.22 [facility] Comment on above: Order Comment: Specvicki gastelum Type: BLOOD SPECIMEN Ordering Facility: [facility] Address: [address] [place] [address] Performed By: #### 2 4323-8 #### [facility] CLIA [id number] [address] Creatinine and Glomerular filtration rate.predicted panel (S/P/Bld) 89 mL/min/1.73m??? Normal >=60 [facility] Comment on above: Order Comment: Hollis gastelum Type: BLOOD SPECIMEN Ordering Facility: [facility] Address: [address] [place] [address] Result Comment: Rahel mated Glomerular Filtration Rate [...] GFR. Performed By: #### 2 4323-8 #### [facility] CLIA [id number] [address] Glucose [Mass/Vol] 111 mg/dL High 74-99 [facility] Comment on above: Order Comment: Speci nirav Type: BLOOD SPECIMEN Ordering Facility: [facility] Address: [address] [place] [address] Result Comment: The [place] Diabetes Association (ADA) provides guidance for cutoff [...] Standards of Medical Care in Diabetes 2016, [place] Diabetes Association. Diabetes Care. 2016.39(Suppl 1). Performed By: #### 2 4323-8 #### [facility] CLIA [id number] [address] [place] [address] [place] Potassium [Moles/Vol] 4.1 mmol/L Normal 3.7-5.1 [facility] Comment on above: Order Comment: Hollis gastelum Type: BLOOD SPECIMEN Ordering Facility: [facility] Address: [address] [place] [address] Performed By: #### 2 4323-8 #### [facility] CLIA [id number] [address] [place] Protein [Mass/Vol] 7.1 g/dL Normal 6.3-8.0 [facility] Comment on above: Order Comment: Hollis gastelum Type: BLOOD SPECIMEN Ordering Facility: [facility] Address: [address] [place] [address] Performed By: #### 2 4323-8 #### [facility] CLIA [id number] [address] [place] Sodium [Moles/Vol] 141 mmol/L Normal 136-144 [facility] Comment on above: Order Comment: Hollis gastelum Type: BLOOD SPECIMEN Ordering Facility: [facility] Address: [address] [place] [address] Performed By: #### 2 4323-8 #### [facility] CLIA [id number] [address] [place] [address] [place] Urea nitrogen [Mass/Vol] 13 mg/dL Normal 9-24 [facility] Comment on above: Order Comment: Hollis gastelum Type: BLOOD SPECIMEN Ordering Facility: [facility] Address: [address] [place] [address] Performed By: #### 2 4323-8 #### [facility] CLIA [id number] [address] [place] HbA1c (Bld)on 02-17-2025 Average glucose Estimated from glycated hemoglobin (Bld) [Mass/Vol] 108 mg/dL Normal [facility] Comment on above: Order Comment: Speci men Type: BLOOD SPECIMEN Ordering Facility: [facility] Address: [address] [place] [address] Result Comment: eAG: (Estimated average glucose) is a calculated value from HgbA1c and is international representative of the average blood glucose level in the last 2-3 month period. Performed By: #### 5 5454-3 #### [facility] CLIA [id number] [address] [place] [address] [place] HbA1c (Bld) [Mass fraction] 5.4 % Normal 4.3-5.6 [facility] Comment on above: Order Comment: Speci men Type: BLOOD SPECIMEN Ordering Facility: [facility] Address: [address] [place] [address] Result Comment: Amer [place] Diabetes Association guidelines indicate that patients with HgbA1c in the range 5.7-6.4% are at increased risk for development of diabetes, and intervention by lifestyle modification may be beneficial. HgbA1c greater or equal to 6.5% is considered diagnostic of diabetes. Performed By: #### 5 5454-3 #### [facility] CLIA [id number] [address] [place] [address] [place] PSA SerPl-mCncon 02-17-2025 Prostate specific Ag [Mass/Vol] 2.21 ng/mL Normal <2.60 [facility] Comment on above: Order Comment: Speci men Type: BLOOD SPECIMEN Ordering Facility: [facility] Address: [address] [place] [address] Result Comment: Tota l PSA test methodology used is the Electrochemiluminescence Immunoassay by [employer]. Total PSA values by differing methodologies cannot be interchanged. Performed By: #### 2 857-1 #### [facility] CLIA [id number] [address] [place] [address] [place] US CAROTID ARTERIES [facility] 02-17-2025 US CAROTID ARTERIES [facility] Non-Invasive Vascular Laboratory [facility] Carotid Duplex Bilateral/Complete Date [...] interpretation criteria are used as recommended by [employer]. RIGHT SIDE Common carotid artery: [...] artery: 50-99% stenosis. Technologist: Clarisa Wan RVT [facility] Ordering physician: AMANDA CORONA Interpreting physician: MICHAEL Carrera MD Final [facility] Image : [id number] 1SyngoDynamicsSISUID See Link below for Image Normal [facility] CNOVon 01-14-2025 CNOV Office Visit (FAMPWS ) AMIE KILLIAN ([id number]) 1955 M Date Time Provider Department 01/14/25 8:40 AM APOLLO MELO During your visit today, we recorded the following information about you: Pulse Respiration Blood pressure Weight 80/minute 16/minute 124/76 56.7 kg Apollo Melo MD 01/14/2025 11:40 AM Signed Chief Complaint [...] Relation Age of Onset Heart Father of [place] age 80 Stroke Mother Heart Brother Patient [...] Vaccine Com (more content not included)... Normal [facility] CT ABD/PEL W IVCONon 025 CT ABD/PEL W IVCON * * *Final Report* * * DATE OF EXAM: Jan 07 2025 10:36AM [facility] 0530 - CT ABD/PEL W IVCON [...] Stable subcentimeter low-density lesions in the liver Pipe Stripper: PSCB Transcribe Date/Time: Jan 14 2025 9:42A Dictated by : ASHLEY MONTILLA MD This examination was interpreted and the report reviewed and electronically signed by: ASHLEY MONTILLA MD on Jan 14 2025 9:59AM EST [id number] Normal [facility] CNOVSPon 12-19-2024 CNOVSP Visit (SP) Office (H EMAWS) LISANDRAAMIE CHANEL ([id number]) 1955 M Date Time Provider Department 12/19/24 [...] Relation Age of Onset Heart Father of [place] age 80 Stroke Mother Heart Brother Social [...] which included preparing to see the patient, cvlj-uu-uvjc patient care, completing clinical documentation, obtaining and/or reviewing separately obtained history, performing a medically appropriate examination, counseling and educating the patient/family/caregiver, independently interpreting results (not separatel (more content not included)... Normal [facility] Comprehensive metabolic 2000 panelOrdered By: Verónica Mallory on 12-17-2024 Albumin [Mass/Vol] 4.3 g/dL 3.9 - 4.9 g/dL [facility] ALP [Catalytic activity/Vol] 64 U/L 38 - 113 U/L [facility] ALT [Catalytic activity/Vol] 5 U/L Low 10 - 54 U/L [facility] Anion gap [Moles/Vol] 10 mmol/L 8 - 15 mmol/L [facility] AST [Catalytic activity/Vol] 12 U/L Low 14 - 40 U/L [facility] Bilirubin [Mass/Vol] 0.4 mg/dL 0.2 - 1.3 mg/dL [facility] Calcium [Mass/Vol] 9.9 mg/dL 8.5 - 10. 2 mg/dL [facility] Chloride [Moles/Vol] 102 mmol/L 98 - 107 mmol/L [facility] CO2 [Moles/Vol] 25 mmol/L 22 - 30 mmol/L [facility] Creatinine [Mass/Vol] 0.82 mg/dL 0.73 - 1.22 mg/dL [facility] GFR/1.73 sq M.predicted among non-blacks MDRD (S/P/Bld) [Vol rate/Area] 94 mL/min/{1.73_m2} - PINF [facility] Comment on above: Estimated Glomerular Filtration Rate [...] 121 mg/dL High 74 - 99 mg/dL [facility] Comment on above: The [place] Diabete s Association (ADA) provides guidance for [...] Standards of Medical Care in Diabetes 2016, [place] Diabetes Association. Diabetes Care. 2016.39(Suppl 1). Interpretation and review of laboratory results Abnormal [facility] Potassium [Moles/Vol] 3.8 mmol/L 3.7 - 5.1 mmol/L [facility] Protein [Mass/Vol] 6.7 g/dL 6.3 - 8.0 g/dL [facility] Sodium [Moles/Vol] 137 mmol/L 136 - 144 mmol/L [facility] Urea nitrogen [Mass/Vol] 10 mg/dL 9 - 24 mg/dL [facility] Comprehensive metabolic 2000 panelon 12-17-2024 Albumin [Mass/Vol] 4.3 g/dL Normal 3.9-4.9 [facility] Comment on above: Order Comment: Speci men Type: BLOOD SPECIMEN Ordering Facility: [facility] Address: [address] [place] [address] Performed By: #### 2 857-1 #### [facility] CLIA [id number] [address] [place] [address] [place] ALP [Catalytic activity/Vol] 64 U/L Normal 38-113 [facility] Comment on above: Order Comment: Speci men Type: BLOOD SPECIMEN Ordering Facility: [facility] Address: [address] [place] [address] Performed By: #### 2 857-1 #### [facility] CLIA [id number] [address] [place] [address] [place] ALT [Catalytic activity/Vol] 5 U/L Low 10-54 [facility] Comment on above: Order Comment: Speci men Type: BLOOD SPECIMEN Ordering Facility: [facility] Address: [address] [place] [address] Performed By: #### 2 857-1 #### [facility] CLIA [id number] [address] [place] [address] [place] Anion gap [Moles/Vol] 10 mmol/L Normal 8-15 [facility] Comment on above: Order Comment: Speci men Type: BLOOD SPECIMEN Ordering Facility: [facility] Address: [address] [place] [address] Performed By: #### 2 857-1 #### [facility] CLIA [id number] [address] [place] [address] [place] AST [Catalytic activity/Vol] 12 U/L Low 14-40 [facility] Comment on above: Order Comment: Speci men Type: BLOOD SPECIMEN Ordering Facility: [facility] Address: [address] [place] [address] Performed By: #### 2 857-1 #### [facility] CLIA [id number] [address] [place] [address] [place] Bilirubin [Mass/Vol] 0.4 mg/dL Normal 0.2-1.3 [facility] Comment on above: Order Comment: Speci men Type: BLOOD SPECIMEN Ordering Facility: [facility] Address: [address] [place] [address] Performed By: #### 2 857-1 #### [facility] CLIA [id number] [address] [place] [address] [place] Calcium [Mass/Vol] 9.9 mg/dL Normal 8.5-10.2 [facility] Comment on above: Order Comment: Speci men Type: BLOOD SPECIMEN Ordering Facility: [facility] Address: [address] [place] [address] Performed By: #### 2 857-1 #### [facility] CLIA [id number] [address] [place] [address] [place] Chloride [Moles/Vol] 102 mmol/L Normal 98-107 [facility] Comment on above: Order Comment: Speci men Type: BLOOD SPECIMEN Ordering Facility: [facility] Address: [address] [place] [address] Performed By: #### 2 857-1 #### [facility] CLIA [id number] [address] [place] [address] [place] CO2 [Moles/Vol] 25 mmol/L Normal 22-30 [facility] Comment on above: Order Comment: Speci men Type: BLOOD SPECIMEN Ordering Facility: [facility] Address: [address] [place] [address] Performed By: #### 2 857-1 #### [facility] CLIA [id number] [address] [place] [address] [place] Creatinine [Mass/Vol] 0.82 mg/dL Normal 0.73-1.22 [facility] Comment on above: Order Comment: Hollis gastelum Type: BLOOD SPECIMEN Ordering Facility: [facility] Address: [address] [place] [address] Performed By: #### 2 857-1 #### [facility] CLIA [id number] [address] [place] [address] [place] Creatinine and Glomerular filtration rate.predicted panel (S/P/Bld) 94 mL/min/1.73m??? Normal >=60 [facility] Comment on above: Order Comment: Hollis gastelum Type: BLOOD SPECIMEN Ordering Facility: [facility] Address: [address] [place] [address] Result Comment: Rahel mated Glomerular Filtration Rate [...] GFR. Performed By: #### 2 857-1 #### [facility] CLIA [id number] [address] [place] [address] [place] Glucose [Mass/Vol] 121 mg/dL High 74-99 [facility] Comment on above: Order Comment: Hollis gastelum Type: BLOOD SPECIMEN Ordering Facility: [facility] Address: [address] [place] [address] Result Comment: The [place] Diabetes Association (ADA) provides guidance for cutoff [...] Standards of Medical Care in Diabetes 2016, [place] Diabetes Association. Diabetes Care. 2016.39(Suppl 1). Performed By: #### 2 857-1 #### [facility] CLIA [id number] [address] [place] [address] [place] Potassium [Moles/Vol] 3.8 mmol/L Normal 3.7-5.1 [facility] Comment on above: Order Comment: Speci men Type: BLOOD SPECIMEN Ordering Facility: [facility] Address: [address] [place] [address] Performed By: #### 2 857-1 #### [facility] CLIA [id number] [address] [place] [address] [place] Protein [Mass/Vol] 6.7 g/dL Normal 6.3-8.0 [facility] Comment on above: Order Comment: Speci men Type: BLOOD SPECIMEN Ordering Facility: [facility] Address: [address] [place] [address] Performed By: #### 2 857-1 #### [facility] CLIA [id number] [address] [place] [address] [place] Sodium [Moles/Vol] 137 mmol/L Normal 136-144 [facility] Comment on above: Order Comment: Speci men Type: BLOOD SPECIMEN Ordering Facility: [facility] Address: [address] [place] [address] Performed By: #### 2 857-1 #### [facility] CLIA [id number] [address] [place] [address] [place] Urea nitrogen [Mass/Vol] 10 mg/dL Normal 9-24 [facility] Comment on above: Order Comment: Speci men Type: BLOOD SPECIMEN Ordering Facility: [facility] Address: [address] [place] [address] Performed By: #### 2 857-1 #### [facility] CLIA [id number] [address] [place] [address] [place] PSA SerPl-mCncon 12-17-2024 Prostate specific Ag [Mass/Vol] 1.74 ng/mL Normal <2.60 [facility] Comment on above: Order Comment: Speci men Type: BLOOD SPECIMEN Ordering Facility: [facility] Address: [address] [place] [address] Result Comment: Tota l PSA test methodology used is the Electrochemiluminescence Immunoassay by [employer]. Total PSA values by differing methodologies cannot be interchanged. Performed By: #### 2 857-1 #### [facility] CLIA [id number] [address] [place] [address] [place] CNOVon 11-26-2024 CNOV Office Visit (VASSWS ) AMIE KILLIAN ([id number]) 1955 M Date Time Provider Department 11/26/24 9:00 AM AMANDA CORONA During your visit today, we recorded the following information about you: Pulse Blood pressure 71/minute 125/70 Amanda Corona DO 11/26/2024 11:47 AM [facility] [place] DEPARTMENT OF VASCULAR SURGERY OUTPATIENT VISIT DATE November 26, 2024 OUTPATIENT VISIT TYPE ESTABLISHED SERVICE DATE: 11/26/2024 SERVICE TIME: 9:12 AM PRIMARY CARE PHYSICIAN: Apollo Melo MD HISTORY OF PRESENT ILLNESS: Mr. Killian is a 69 year old male who presents today for a vascular surgery follow-up visit for peripheral arterial disease. He has been active in the winter with walking at the [facility]. This spring, he has noticed right [...] TIME: 9:12 AM Referring Provider: AMANDA CORONA [[id number]] Allergies As of Date: 11/26/2024 Noted Allergy [...] [I65.29] Order(s):US CAROTID ARTERIES [facility] [[id number]] Order (more content not included)... Normal [facility] PVR ANK/VEGA/TOE [facility] on 11-26-2024 PVR ANK/VEGA/TOE [facility] Non-Invasive V[facility] Lower Extremity Arterial Physiology Study Bilateral/Complete [...] Moderate disease at rest. Technologist: Errol Lundy [facility] Ordering physician: AMANDA CORONA Interpreting physician: MICHAEL Mascorro DO Final CC [facility] : [id number] [employer] See Link below for Image Normal [facility] Jose De Jesus 09-30-2024 ALBERTO Telephone (HEMAWS) AMIE KILLIAN ([id number]) 1955 M Date Time Provider Department 09/30/24 LISA ALBRIGHT During your visit today, we recorded the following information about you: Lisa Albright LISW 09/30/2024 10:06 AM Signed Fax received from [employer] patient assistance that pt needs an updated prescription for 2024. Please send prescription with enough refills for the year to: [phone] Thank you, GEMMA Heck Melanie, LPN 09/30/2024 [...] Encounter Status:Closed by ALESIA SCHROEDER on 09/30/24 [facility] CNOVSPon 09-26-2024 OVS Visit (SP) Office (H EMAWS) AMIE KILLIAN ([id number]) 1955 [place] Date Time Provider Department 09/26/24 [...] Relation Age of Onset Heart Father of [place] age 80 Stroke Mother Heart Brother Social [...] which included preparing to see the patient, [id number] patient care, completing clinical documentation, obtaining and/or reviewing separately obtained history, performing a medically appropriate examination, counseling and educating the patient/family/caregiver, independently interpreting results (not separately reported), and communicating results to the patient/family/caregiver. Electronically Signed: Francisco Javier Perez MD September 26, 2024 Referring Provider: SEAN RODRIGUEZ [[id number]] Allergies As of Date: 09/26 (more content not included)... Normal [facility] metabolic 2000 panelOrdered By: Verónica Mallory on 09-24-2024 Albumin [Mass/Vol] 4.2 g/dL 3.9 - 4.9 g/dL [facility] ALP [Catalytic activity/Vol] 62 U/L 38 - 113 U/L [facility] ALT [Catalytic activity/Vol] 10 U/L 10 - 54 U/L [facility] Anion gap [Moles/Vol] 11 mmol/L 8 - 15 mmol/L [facility] AST [Catalytic activity/Vol] 16 U/L 14 - 40 U/L [facility] Bilirubin [Mass/Vol] 0.4 mg/dL 0.2 - 1.3 mg/dL [facility] Calcium [Mass/Vol] 9.4 mg/dL 8.5 - 10. 2 mg/dL [facility] Chloride [Moles/Vol] 103 mmol/L 98 - 107 mmol/L [facility] CO2 [Moles/Vol] 26 mmol/L 22 - 30 mmol/L [facility] Creatinine [Mass/Vol] 0.70 mg/dL Low 0.73 - 1.22 mg/dL [facility] GFR/1.73 sq M.predicted among non-blacks MDRD (S/P/Bld) [Vol rate/Area] 99 mL/min/{1.73_m2} - PINF [facility] Comment on above: Estimated Glomerular Filtration Rate [...] [Mass/Vol] 97 mg/dL 74 - 99 mg/dL [facility] Comment on above: The [place] Diabete s Association (ADA) provides guidance for [...] Standards of Medical Care in Diabetes 2016, [place] [employer]. Diabetes Care. 2016.39(Suppl 1). Interpretation and review of laboratory results Abnormal [facility] Potassium [Moles/Vol] 4.1 mmol/L 3.7 - 5.1 mmol/L [facility] Protein [Mass/Vol] 6.5 g/dL 6.3 - 8.0 g/dL [facility] Sodium [Moles/Vol] 140 mmol/L 136 - 144 mmol/L [facility] Urea nitrogen [Mass/Vol] 10 mg/dL 9 - 24 mg/dL [facility] Comprehensive metabolic 2000 panelon 09-24-2024 Albumin [Mass/Vol] 4.2 g/dL Normal 3.9-4.9 [facility] Comment on above: Order Comment: Speci nirav Type: BLOOD SPECIMEN Ordering Facility: [facility] Address: [address] [place] [address] Performed By: #### 2 857-1 #### [facility] CLIA [id number] [address] [place] [address] [place] ALP [Catalytic activity/Vol] 62 U/L Normal 38-113 [facility] Comment on above: Order Comment: Lexusi nirav Type: BLOOD SPECIMEN Ordering Facility: [facility] Address: [address] [place] [address] Performed By: #### 2 857-1 #### [facility] CLIA [id number] [address] [place] [address] [place] ALT [Catalytic activity/Vol] 10 U/L Normal 10-54 [facility] Comment on above: Order Comment: Speci men Type: BLOOD SPECIMEN Ordering Facility: [facility] Address: [address] [place] [address] Performed By: #### 2 857-1 #### [facility] CLIA [id number] [address] [place] [address] [place] Anion gap [Moles/Vol] 11 mmol/L Normal 8-15 [facility] Comment on above: Order Comment: Speci men Type: BLOOD SPECIMEN Ordering Facility: [facility] Address: [address] [place] [address] Performed By: #### 2 857-1 #### [facility] CLIA [id number] [address] [place] [address] [place] AST [Catalytic activity/Vol] 16 U/L Normal 14-40 [facility] Comment on above: Order Comment: Speci men Type: BLOOD SPECIMEN Ordering Facility: [facility] Address: [address] [place] [address] Performed By: #### 2 857-1 #### [facility] CLIA [id number] [address] [place] [address] [place] Bilirubin [Mass/Vol] 0.4 mg/dL Normal 0.2-1.3 [facility] Comment on above: Order Comment: Speci men Type: BLOOD SPECIMEN Ordering Facility: [facility] Address: [address] [place] [address] Performed By: #### 2 857-1 #### [facility] CLIA [id number] [address] [place] [address] [place] Calcium [Mass/Vol] 9.4 mg/dL Normal 8.5-10.2 [facility] Comment on above: Order Comment: Speci men Type: BLOOD SPECIMEN Ordering Facility: [facility] Address: [address] [place] [address] Performed By: #### 2 857-1 #### [facility] CLIA [id number] [address] [place] [address] [place] Chloride [Moles/Vol] 103 mmol/L Normal 98-107 [facility] Comment on above: Order Comment: Speci men Type: BLOOD SPECIMEN Ordering Facility: [facility] Address: [address] [place] [address] Performed By: #### 2 857-1 #### [facility] CLIA [id number] [address] [place] [address] [place] CO2 [Moles/Vol] 26 mmol/L Normal 22-30 [facility] Comment on above: Order Comment: Speci nirav Type: BLOOD SPECIMEN Ordering Facility: [facility] Address: [address] [place] [address] Performed By: #### 2 857-1 #### [facility] IA [id number] [address] [place] [address] [place] Creatinine [Mass/Vol] 0.70 mg/dL Low 0.73-1.22 [facility] Comment on above: Order Comment: Lexusi men Type: BLOOD SPECIMEN Ordering Facility: [facility] Address: [address] [place] [address] Performed By: #### 2 857-1 #### [facility] IA [id number] [address] [place] [address] [place] Creatinine and Glomerular filtration rate.predicted panel (S/P/Bld) 99 mL/min/1.73m??? Normal >=60 [facility] Comment on above: Order Comment: Speci men Type: BLOOD SPECIMEN Ordering Facility: [facility] Address: [address] [place] [address] Result Comment: Rahel mated Glomerular Filtration Rate [...] GFR. Performed By: #### 2 857-1 #### [facility] IA [id number] [address] [place] [address] [place] Glucose [Mass/Vol] 97 mg/dL Normal 74-99 [facility] Comment on above: Order Comment: Lexusi men Type: BLOOD SPECIMEN Ordering Facility: [facility] Address: [address] [place] [address] Result Comment: The [place] Diabetes Association (ADA) provides guidance for cutoff [...] Standards of Medical Care in Diabetes 2016, [place] [employer]. Diabetes Care. 2016.39(Suppl 1). Performed By: #### 2 857-1 #### [facility] CLIA [id number] [address] [place] [address] [place] Potassium [Moles/Vol] 4.1 mmol/L Normal 3.7-5.1 [facility] Comment on above: Order Comment: Speci men Type: BLOOD SPECIMEN Ordering Facility: [facility] Address: [address] [place] [address] Performed By: #### 2 857-1 #### [facility] CLIA [id number] [address] [place] [address] [place] Protein [Mass/Vol] 6.5 g/dL Normal 6.3-8.0 [facility] Comment on above: Order Comment: Speci men Type: BLOOD SPECIMEN Ordering Facility: [facility] Address: [address] [place] [address] Performed By: #### 2 857-1 #### [facility] CLIA [id number] [address] [place] [address] [place] Sodium [Moles/Vol] 140 mmol/L Normal 136-144 [facility] Comment on above: Order Comment: Speci men Type: BLOOD SPECIMEN Ordering Facility: [facility] Address: [address] [place] [address] Performed By: #### 2 857-1 #### [facility] CLIA [id number] [address] [place] [address] [place] Urea nitrogen [Mass/Vol] 10 mg/dL Normal 9-24 [facility] Comment on above: Order Comment: Speci men Type: BLOOD SPECIMEN Ordering Facility: [facility] Address: [address] [place] [address] Performed By: #### 2 857-1 #### [facility] CLIA [id number] [address] [place] [address] [place] PSA SerPl-mCncon 09-24-2024 Prostate specific Ag [Mass/Vol] 1.18 ng/mL Normal <2.60 [facility] Comment on above: Order Comment: Speci men Type: BLOOD SPECIMEN Ordering Facility: [facility] Address: [address] [place] [address] Result Comment: Tota l PSA test methodology used is the Electrochemiluminescence Immunoassay by [employer]. Total PSA values by differing methodologies cannot be interchanged. Performed By: #### 2 857-1 #### [facility] IA [id number] [address] [place] [address] [place] CNPNon 09-18-2024 CNPN Telephone (GIANCARLO) AMIE KILLIAN ([id number]) 1955 M Date Time Provider Department 09/18/24 LISA ALBRIGHT During your visit today, we recorded the following information about you: Lisa Albrigth LISW 09/18/2024 10:10 AM Signed SOCIAL WORK FOLLOW UP NOTE: [facility] Date of service: September 18, 2024 Amie Killian is being seen for a follow up social work visit. Today's visit includes: patient TOPICS ADDRESSED: SW met with pt this date and reviewed mailing received from [facility]. SW discussed with pt needing to reapply for the [employer] assistance program. Pt in agreement. Application completed this date with pt. SW completed the HCP portion of application and will review with physician when he is back in office tomorrow, 09/19. SW to fax to [employer] once completed and will send to internal [...] to internal scanning, no other needs identified. [employer] [employer] P: [phone] [employer] [facility] P: [phone] GEM[facility] Heck Allergies As of Date: 09/18/2024 [...] Encounter Status:Closed by LISA ALBRIGHT on 09/18/24 [facility] Jose De Jesus 09-12-2024 CNPN Telephone (FAMPWS) AMIE KILLIAN ([id number]) 1955 M Date Time Provider Department 09/12/24 [...] be the same medication. Please call the [facility] Patient is also asking if doctor has samples of the medication because he is running low on the medication. Patient has been identified by name and birthdate. Duration of symptoms: N/A Person calling: self Call patient at: on cell [phone] (home) [phone] (cell) Was an appointment scheduled: No Closing statement: Results or non-symptom based questions: Thank you for calling [facility], your call will be returned within the [...] 1 Inhalation (more content not included)... Normal [facility] CNOVon 07-16-2024 CNOV Office Visit (FAMPWS ) AMIE KILLIAN ([id number]) 1955 M Date Time Provider Department 07/16/24 [...] is over he will go to the [facility]. Also does yard work. Follows with [...] Relation Age of Onset Heart Father of [place] age 80 Stroke Mother Heart Brother Patient [...] Regular Adul (more content not included)... Normal [facility] CNOVSPon 07-04-2024 CNOVSP Visit (SP) Office (H EMAWS) AGUILAJMAMIE CHANEL ([id number]) 1955 M Date Time Provider Department 07/04/24 [...] Relation Age of Onset Heart Father of [place] age 80 Stroke Mother Heart Brother Social [...] which included preparing to see the patient, [id number] patient care, completing clinical documenta (more content not included)... [facility] AMIE KILLIAN ([id number]) 1955 M Date Time Provider Department 07/04/24 9:30 AM TREATMENT RM 15 JOHNIE [facility] WSTRHEMAWS During your visit today, we recorded the following information about you: Referring Provider: FRANCISCO JAVIER PEREZ [[id number]] Allergies As of Date: 07/04/2024 Noted Allergy Reaction DOXYCYCLINE 12/30/2014 8 - GI Upset Comments: Unsure if he really has SE to this medication Date Reviewed: 07/04/2024 Reviewed by: Jax Patel MA - Fully Assessed Primary Visit Diagnosis:Prostate cancer (HCC) [C61] Other Visit Diagnosis:Malignant neoplasm metastatic to bone (HCC) [C79.51] Order(s):PHARMACY COMMUNICATION PATIENT ARRIVEDDisp: Rfl: [] zoledronic ft-wqucdggp-6.9NaCl 4 mg iv piggyback 100 mL (ZOMETA)Disp: Rfl: BCN NURSING COMMUNICATION [[id number]] Order #: [id number]: 1 STANDING Prescriptions as of 07/04/2024 - [...] Status:Closed by MARIELA FINLEY on 07/04/24 Normal [facility] metabolic 2000 panelOrdered By: Verónica Mallory on 07-02-2024 Albumin [Mass/Vol] 4.3 g/dL 3.9 - 4.9 g/dL [facility] ALP [Catalytic activity/Vol] 68 U/L 38 - 113 U/L [facility] ALT [Catalytic activity/Vol] 6 U/L Low 10 - 54 U/L [facility] Anion gap [Moles/Vol] 13 mmol/L 8 - 15 mmol/L [facility] AST [Catalytic activity/Vol] 13 U/L Low 14 - 40 U/L [facility] Bilirubin [Mass/Vol] 0.4 mg/dL 0.2 - 1.3 mg/dL [facility] Calcium [Mass/Vol] 9.8 mg/dL 8.5 - 10. 2 mg/dL [facility] Chloride [Moles/Vol] 101 mmol/L 98 - 107 mmol/L [facility] CO2 [Moles/Vol] 26 mmol/L 22 - 30 mmol/L [facility] Creatinine [Mass/Vol] 0.73 mg/dL 0.73 - 1.22 mg/dL [facility] GFR/1.73 sq M.predicted among non-blacks MDRD (S/P/Bld) [Vol rate/Area] 98 mL/min/{1.73_m2} - PINF [facility] Comment on above: Estimated Glomerular Filtration Rate [...] 114 mg/dL High 74 - 99 mg/dL [facility] Comment on above: The [place] Diabete s Association (ADA) provides guidance for [...] Standards of Medical Care in Diabetes 2016, [place] [employer]. Diabetes Care. 2016.39(Suppl 1). Interpretation and review of laboratory results Abnormal [facility] Potassium [Moles/Vol] 3.6 mmol/L Low 3.7 - 5.1 mmol/L [facility] Protein [Mass/Vol] 6.6 g/dL 6.3 - 8.0 g/dL [facility] Sodium [Moles/Vol] 140 mmol/L 136 - 144 mmol/L [facility] Urea nitrogen [Mass/Vol] 10 mg/dL 9 - 24 mg/dL [facility] Comprehensive metabolic 2000 panelon 07-02-2024 Albumin [Mass/Vol] 4.3 g/dL Normal 3.9-4.9 [facility] Comment on above: Order Comment: Speci men Type: BLOOD SPECIMEN Ordering Facility: [facility] Address: [address] [place] [address] Performed By: #### 2 857-1 #### [facility] CLIA [id number] [address] [place] [address] [id number] [place] [address] [place] ALP [Catalytic activity/Vol] 68 U/L Normal 38-113 [facility] Comment on above: Order Comment: Speci men Type: BLOOD SPECIMEN Ordering Facility: [facility] Address: [address] [place] [address] Performed By: #### 2 857-1 #### [facility] CLIA [id number] [address] [place] [address] [place] ALT [Catalytic activity/Vol] 6 U/L Low 10-54 [facility] Comment on above: Order Comment: Speci men Type: BLOOD SPECIMEN Ordering Facility: [facility] Address: [address] [place] [address] Performed By: #### 2 857-1 #### [facility] CLIA [id number] [address] [place] [address] [place] Anion gap [Moles/Vol] 13 mmol/L Normal 8-15 [facility] Comment on above: Order Comment: Speci men Type: BLOOD SPECIMEN Ordering Facility: [facility] Address: [address] [place] [address] Performed By: #### 2 857-1 #### [facility] CLIA [id number] [address] [place] [address] [place] AST [Catalytic activity/Vol] 13 U/L Low 14-40 [facility] Comment on above: Order Comment: Speci men Type: BLOOD SPECIMEN Ordering Facility: [facility] Address: [address] [place] [address] Performed By: #### 2 857-1 #### [facility] CLIA [id number] [address] [place] [address] [place] Bilirubin [Mass/Vol] 0.4 mg/dL Normal 0.2-1.3 [facility] Comment on above: Order Comment: Speci men Type: BLOOD SPECIMEN Ordering Facility: [facility] Address: [address] [place] [address] Performed By: #### 2 857-1 #### [facility] CLIA [id number] [address] [place] [address] [place] Calcium [Mass/Vol] 9.8 mg/dL Normal 8.5-10.2 [facility] Comment on above: Order Comment: Speci men Type: BLOOD SPECIMEN Ordering Facility: [facility] Address: [address] [place] [address] Performed By: #### 2 857-1 #### [facility] CLIA [id number] [address] [place] [address] [place] Chloride [Moles/Vol] 101 mmol/L Normal 98-107 [facility] Comment on above: Order Comment: Speci men Type: BLOOD SPECIMEN Ordering Facility: [facility] Address: [address] [place] [address] Performed By: #### 2 857-1 #### [facility] CLIA [id number] [address] [place] [address] [place] CO2 [Moles/Vol] 26 mmol/L Normal 22-30 [facility] Comment on above: Order Comment: Speci men Type: BLOOD SPECIMEN Ordering Facility: [facility] Address: [address] [place] [address] Performed By: #### 2 857-1 #### [facility] CLIA [id number] [address] [place] [address] [place] Creatinine [Mass/Vol] 0.73 mg/dL Normal 0.73-1.22 [facility] Comment on above: Order Comment: Speci men Type: BLOOD SPECIMEN Ordering Facility: [facility] Address: [address] [place] [address] Performed By: #### 2 857-1 #### [facility] CLIA [id number] [address] [place] [address] [place] Creatinine and Glomerular filtration rate.predicted panel (S/P/Bld) 98 mL/min/1.73m??? Normal >=60 [facility] Comment on above: Order Comment: Hollis gastelum Type: BLOOD SPECIMEN Ordering Facility: [facility] Address: [address] [place] [address] Result Comment: Rahel mated Glomerular Filtration Rate [...] GFR. Performed By: #### 2 857-1 #### [facility] CLIA [id number] [address] [place] [address] [place] Glucose [Mass/Vol] 114 mg/dL High 74-99 [facility] Comment on above: Order Comment: Hollis gastelum Type: BLOOD SPECIMEN Ordering Facility: [facility] Address: [address] [place] [address] Result Comment: The [place] Diabetes Association (ADA) provides guidance for cutoff [...] Standards of Medical Care in Diabetes 2016, [place] [employer]. Diabetes Care. 2016.39(Suppl 1). Performed By: #### 2 857-1 #### [facility] CLIA [id number] [address] [place] [address] [place] Potassium [Moles/Vol] 3.6 mmol/L Low 3.7-5.1 [facility] Comment on above: Order Comment: Hollis gastelum Type: BLOOD SPECIMEN Ordering Facility: [facility] Address: [address] [place] [address] Performed By: #### 2 857-1 #### [facility] CLIA [id number] [address] [place] [address] [place] Protein [Mass/Vol] 6.6 g/dL Normal 6.3-8.0 [facility] Comment on above: Order Comment: Speci men Type: BLOOD SPECIMEN Ordering Facility: [facility] Address: [address] [place] [address] Performed By: #### 2 857-1 #### [facility] CLIA [id number] [address] [place] [address] [place] Sodium [Moles/Vol] 140 mmol/L Normal 136-144 [facility] Comment on above: Order Comment: Speci men Type: BLOOD SPECIMEN Ordering Facility: [facility] Address: [address] [place] [address] Performed By: #### 2 857-1 #### [facility] CLIA [id number] [address] [place] [address] [place] Urea nitrogen [Mass/Vol] 10 mg/dL Normal 9-24 [facility] Comment on above: Order Comment: Speci men Type: BLOOD SPECIMEN Ordering Facility: [facility] Address: [address] [place] [address] Performed By: #### 2 857-1 #### [facility] CLIA [id number] [address] [place] [address] [place] PSA SerPl-mCncon 07-02-2024 Prostate specific Ag [Mass/Vol] 0.88 ng/mL Normal <2.60 [facility] Comment on above: Order Comment: Speci men Type: BLOOD SPECIMEN Ordering Facility: [facility] Address: [address] [place] [address] Result Comment: Tota l PSA test methodology used is the Electrochemiluminescence Immunoassay by [employer]. Total PSA values by differing methodologies cannot be interchanged. Performed By: #### 2 857-1 #### [facility] CLIA [id number] [address] [place] [id number] [place] CNOVSPon 04-11-2024 CNOVSP Visit (SP) Office (H EMAWS) AMIE KILLIAN ([id number]) 1955 M Date Time Provider Department 04/11/24 9:00 AM TREATMENT RM 16 JOHNIE [facility] WSTRHEMAWS During your visit today, we recorded the following information about you: Temperature Pulse Respiration Blood pressure 97.4 degrees 64/minute 18/minute 142/89 Weight 53.8 kg Referring Provider: SEAN RODRIGUEZ [[id number]] Allergies As of Date: 04/11/2024 Noted Allergy [...] PHARMACY COMMUNICATION PATIENT ARRIVEDDisp: Rfl: [] zoledronic wm-pakmqlkt-7.9NaCl 4 mg iv piggyback 100 mL (ZOMETA)Disp: Rfl: TREATMENT PARAMETER-NOT NEEDED [[id number]] Order #: [id number]: 1 BCN NURSING COMMUNICATION [[id number]] Order #: [id number]: 1 BCN NURSING COMMUNICATION [[id number]] Order #: [id number]: 1 STANDING BCN NURSING COMMUNICATION [[id number]] Order #: [id number]: 1 STANDING N NURSING COMMUNICATION [[id number]] Order #: [id number]: 1 STANDING Prescriptions as of 04/11/2024 - [...] Status:Closed by ZEE RITTER on 04/11/24 Normal [facility] metabolic 2000 panelOrdered By: Ronel Keenan on 04-09-2024 Albumin [Mass/Vol] 4.2 g/dL 3.9 - 4.9 g/dL [facility] ALP [Catalytic activity/Vol] 60 U/L 38 - 113 U/L [facility] ALT [Catalytic activity/Vol] 7 U/L Low 10 - 54 U/L [facility] Anion gap [Moles/Vol] 10 mmol/L 8 - 15 mmol/L [facility] AST [Catalytic activity/Vol] 13 U/L Low 14 - 40 U/L [facility] Bilirubin [Mass/Vol] 0.4 mg/dL 0.2 - 1.3 mg/dL [facility] Calcium [Mass/Vol] 9.7 mg/dL 8.5 - 10. 2 mg/dL [facility] Chloride [Moles/Vol] 104 mmol/L 98 - 107 mmol/L [facility] CO2 [Moles/Vol] 24 mmol/L 22 - 30 mmol/L [facility] Creatinine [Mass/Vol] 0.73 mg/dL 0.73 - 1.22 mg/dL [facility] GFR/1.73 sq M.predicted among non-blacks MDRD (S/P/Bld) [Vol rate/Area] 98 mL/min/{1.73_m2} - PINF [facility] Comment on above: Estimated Glomerular Filtration Rate [...] 130 mg/dL High 74 - 99 mg/dL [facility] Comment on above: The [place] Diabete [employer] Association (ADA) provides guidance for [...] Standards of Medical Care in Diabetes 2016, [place] [employer]. Diabetes Care. 2016.39(Suppl 1). Interpretation and review of laboratory results Abnormal [facility] [facility] Potassium [Moles/Vol] 4.1 mmol/L 3.7 - 5.1 mmol/L [facility] Protein [Mass/Vol] 6.3 g/dL 6.3 - 8.0 g/dL [facility] Sodium [Moles/Vol] 138 mmol/L 136 - 144 mmol/L [facility] Urea nitrogen [Mass/Vol] 12 mg/dL 9 - 24 mg/dL [facility] Comprehensive metabolic 2000 panelon 04-09-2024 Albumin [Mass/Vol] 4.2 g/dL Normal 3.9-4.9 [facility] Comment on above: Order Comment: Speci men Type: BLOOD SPECIMEN Ordering Facility: [facility] Address: [address] [id number] Performed By: #### 2 857-1 #### [facility] CLIA [id number] [address] [place] [address] [place] ALP [Catalytic activity/Vol] 60 U/L Normal 38-113 [facility] Comment on above: Order Comment: Speci men Type: BLOOD SPECIMEN Ordering Facility: [facility] Address: [address] [place] [address] Performed By: #### 2 857-1 #### [facility] CLIA [id number] [address] [place] [address] [place] ALT [Catalytic activity/Vol] 7 U/L Low 10-54 [facility] Comment on above: Order Comment: Speci men Type: BLOOD SPECIMEN Ordering Facility: [facility] Address: [address] [place] [address] Performed By: #### 2 857-1 #### [facility] CLIA [id number] [address] [place] [address] [place] Anion gap [Moles/Vol] 10 mmol/L Normal 8-15 [facility] Comment on above: Order Comment: Speci men Type: BLOOD SPECIMEN Ordering Facility: [facility] Address: [address] [place] [address] Performed By: #### 2 857-1 #### [facility] CLIA [id number] [address] [id number] [place] AST [Catalytic activity/Vol] 13 U/L Low 14-40 [facility] Comment on above: Order Comment: Speci men Type: BLOOD SPECIMEN Ordering Facility: [facility] Address: [address] [place] [address] Performed By: #### 2 857-1 #### [facility] CLIA [id number] [address] [place] [address] [place] Bilirubin [Mass/Vol] 0.4 mg/dL Normal 0.2-1.3 [facility] Comment on above: Order Comment: Speci men Type: BLOOD SPECIMEN Ordering Facility: [facility] Address: [address] [place] [address] Performed By: #### 2 857-1 #### [facility] CLIA [id number] [address] [place] [address] [place] Calcium [Mass/Vol] 9.7 mg/dL Normal 8.5-10.2 [facility] Comment on above: Order Comment: Speci men Type: BLOOD SPECIMEN Ordering Facility: [facility] Address: [address] [place] [address] Performed By: #### 2 857-1 #### [facility] CLIA [id number] [address] [place] [address] [place] Chloride [Moles/Vol] 104 mmol/L Normal 98-107 [facility] Comment on above: Order Comment: Speci men Type: BLOOD SPECIMEN Ordering Facility: [facility] Address: [address] [place] [address] Performed By: #### 2 857-1 #### [facility] CLIA [id number] [address] [place] [address] [place] CO2 [Moles/Vol] 24 mmol/L Normal 22-30 [facility] Comment on above: Order Comment: Speci men Type: BLOOD SPECIMEN Ordering Facility: [facility] Address: [address] [place] [address] Performed By: #### 2 857-1 #### [facility] CLIA [id number] [address] [place] [address] [place] Creatinine [Mass/Vol] 0.73 mg/dL Normal 0.73-1.22 [facility] Comment on above: Order Comment: Speci men Type: BLOOD SPECIMEN Ordering Facility: [facility] Address: [address] [place] [address] Performed By: #### 2 857-1 #### [facility] CLIA [id number] [address] [place] [address] [place] Creatinine and Glomerular filtration rate.predicted panel (S/P/Bld) 98 mL/min/1.73m??? Normal >=60 [facility] Comment on above: Order Comment: Hollis gastelum Type: BLOOD SPECIMEN Ordering Facility: [facility] Address: [address] [place] [address] Result Comment: Rahel mated Glomerular Filtration Rate [...] GFR. Performed By: #### 2 857-1 #### [facility] CLIA [id number] [address] [place] [address] [place] Glucose [Mass/Vol] 130 mg/dL High 74-99 [facility] Comment on above: Order Comment: Hollis gastelum Type: BLOOD SPECIMEN Ordering Facility: [facility] Address: [address] [place] [address] Result Comment: The [place] Diabetes Association (ADA) provides guidance for cutoff [...] Standards of Medical Care in Diabetes 2016, [place] [employer] Association. Diabetes Care. 2016.39(Suppl 1). Performed By: #### 2 857-1 #### [facility] CLIA [id number] [address] [place], [place] [id number] [place] Potassium [Moles/Vol] 4.1 mmol/L Normal 3.7-5.1 [facility] Comment on above: Order Comment: Speci men Type: BLOOD SPECIMEN Ordering Facility: [facility] Address: [address] [place] [address] Performed By: #### 2 857-1 #### [facility] CLIA [id number] [address] [place] [address] [place] Protein [Mass/Vol] 6.3 g/dL Normal 6.3-8.0 [facility] Comment on above: Order Comment: Speci men Type: BLOOD SPECIMEN Ordering Facility: [facility] Address: [address] [place] [address] Performed By: #### 2 857-1 #### [facility] CLIA [id number] [address] [place] [address] [place] Sodium [Moles/Vol] 138 mmol/L Normal 136-144 [facility] Comment on above: Order Comment: Speci men Type: BLOOD SPECIMEN Ordering Facility: [facility] Address: [address] [place] [address] Performed By: #### 2 857-1 #### [facility] CLIA [id number] [address] [place] [address] [place] Urea nitrogen [Mass/Vol] 12 mg/dL Normal 9-24 [facility] Comment on above: Order Comment: Speci men Type: BLOOD SPECIMEN Ordering Facility: [facility] Address: [address] [place] [address] Performed By: #### 2 857-1 #### [facility] CLIA [id number] [address] [place], [place] [id number] [place] HbA1c (Bld)on 04-09-2024 Average glucose Estimated from glycated hemoglobin (Bld) [Mass/Vol] 114 mg/dL Normal [facility] Comment on above: Order Comment: Speci men Type: BLOOD SPECIMEN Ordering Facility: [facility] Address: [address] [place] [address] Result Comment: eAG: (Estimated average glucose) is a calculated value from HgbA1c and is international representative of the average blood glucose level in the last 2-3 month period. Performed By: #### 2 857-1 #### [facility] CLIA [id number] [address] [place] [address] [place] HbA1c (Bld) [Mass fraction] 5.6 % Normal 4.3-5.6 [facility] Comment on above: Order Comment: Speci men Type: BLOOD SPECIMEN Ordering Facility: [facility] Address: [address] [place] [address] Result Comment: [place] Diabetes Association guidelines indicate that patients with HgbA1c in the range 5.7-6.4% are at increased risk for development of diabetes, and intervention by lifestyle modification may be beneficial. HgbA1c greater or equal to 6.5% is considered diagnostic of diabetes. Performed By: #### 2 857-1 #### [facility] CLIA [id number] [address] [place] [address] [place] [facility] Prostate specific Ag [Mass/Vol] 0.69 ng/mL Normal <2.60 [facility] Comment on above: Order Comment: Speci men Type: BLOOD SPECIMENOrdering Facility: [facility] Address: [address] [place] [address] Result Comment: Tota l PSA test methodology used is the Electrochemiluminescence Immunoassay by [employer]. Total PSA values by differing methodologies cannot be interchanged. Performed By: #### 2 857-1 ####[facility] [id number] [place] [address] [place] Comprehensive metabolic 2000 panelOrdered By: Verónica Mallory on 01-17-2024 Albumin [Mass/Vol] 4.0 g/dL 3.9 - 4.9 g/dL [facility] ALP [Catalytic activity/Vol] 61 U/L 38 - 113 U/L [facility] ALT [Catalytic activity/Vol] 6 U/L Low 10 - 54 U/L [facility] Anion gap [Moles/Vol] 7 mmol/L Low 9 - 18 mmol/L [facility] AST [Catalytic activity/Vol] 12 U/L Low 14 - 40 U/L [facility] Bilirubin [Mass/Vol] 0.4 mg/dL 0.2 - 1.3 mg/dL [facility] Calcium [Mass/Vol] 9.5 mg/dL 8.5 - 10. 2 mg/dL [facility] Chloride [Moles/Vol] 104 mmol/L 97 - 105 mmol/L [facility] CO2 [Moles/Vol] 27 mmol/L 22 - 30 mmol/L [facility] Creatinine [Mass/Vol] 0.79 mg/dL 0.73 - 1.22 mg/dL [facility] GFR/1.73 sq M.predicted among non-blacks MDRD (S/P/Bld) [Vol rate/Area] 96 mL/min/{1.73_m2} - PINF [facility] Comment on above: Estimated Glomerular Filtration Rate [...] 131 mg/dL High 74 - 99 mg/dL [facility] Comment on above: The [place] Diabete s Association (ADA) provides guidance for [...] Standards of Medical Care in Diabetes 2016, [place] [employer]. Diabetes Care. 2016.39(Suppl 1). Interpretation and review of laboratory results Abnormal [facility] Potassium [Moles/Vol] 3.7 mmol/L 3.7 - 5.1 mmol/L [facility] Protein [Mass/Vol] 6.4 g/dL 6.3 - 8.0 g/dL [facility] Sodium [Moles/Vol] 138 mmol/L 136 - 144 mmol/L [facility] Urea nitrogen [Mass/Vol] 12 mg/dL 9 - 24 mg/dL [facility] Comprehensive metabolic 2000 panelon 10-27-2023 Albumin [Mass/Vol] 4.4 g/dL 3.9 - 4.9 g/dL [facility] ALP [Catalytic activity/Vol] 60 U/L 38 - 113 U/L [facility] ALT [Catalytic activity/Vol] 8 U/L Low 10 - 54 U/L [facility] Anion gap [Moles/Vol] 9 mmol/L 9 - 18 mmol/L [facility] AST [Catalytic activity/Vol] 14 U/L 14 - 40 U/L [facility] Bilirubin [Mass/Vol] 0.5 mg/dL 0.2 - 1.3 mg/dL [facility] Calcium [Mass/Vol] 9.9 mg/dL 8.5 - 10. 2 mg/dL [facility] Chloride [Moles/Vol] 104 mmol/L 97 - 105 mmol/L [facility] CO2 [Moles/Vol] 26 mmol/L 22 - 30 mmol/L [facility] Creatinine [Mass/Vol] 0.84 mg/dL 0.73 - 1.22 mg/dL [facility] Estimated Glomerular Filtration Rate 94 mL/min/1.73m >=60 mL/min/1.73 m [facility] Glucose [Mass/Vol] 126 mg/dL High 74 - 99 mg/dL [facility] Potassium [Moles/Vol] 3.9 mmol/L 3.7 - 5.1 mmol/L [facility] Protein [Mass/Vol] 6.8 g/dL 6.3 - 8.0 g/dL [facility] Sodium [Moles/Vol] 139 mmol/L 136 - 144 mmol/L [facility] Urea nitrogen [Mass/Vol] 9 mg/dL 9 - 24 mg/dL [facility] PSA/PROSTSPECAG DIAGon 10-27 Prostate specific Ag [Mass/Vol] 0.49 ng/mL <2.60 ng/mL [facility] Basic metabolic 2000 panelon 08-02-2023 Anion gap [Moles/Vol] 8 mmol/L Low 9 - 18 mmol/L [facility] Calcium [Mass/Vol] 9.4 mg/dL 8.5 - 10. 2 mg/dL [facility] Chloride [Moles/Vol] 103 mmol/L 97 - 105 mmol/L [facility] CO2 [Moles/Vol] 26 mmol/L 22 - 30 mmol/L [facility] Creatinine [Mass/Vol] 0.72 mg/dL Low 0.73 - 1.22 mg/dL [facility] Estimated Glomerular Filtration Rate 99 mL/min/1.73m >=60 mL/min/1.73 m [facility] Glucose [Mass/Vol] 111 mg/dL High 74 - 99 mg/dL [facility] Potassium [Moles/Vol] 4.1 mmol/L 3.7 - 5.1 mmol/L [facility] Sodium [Moles/Vol] 137 mmol/L 136 - 144 mmol/L [facility] Urea nitrogen [Mass/Vol] 9 mg/dL 9 - 24 mg/dL [facility] CBC W Auto Differential pane l (Bld)on 07-21-2023 Basophils (Bld) [#/Vol] 0.06 10*3/uL <0.11 k/uL [facility] Basophils/100 WBC (Bld) 0.8 % [facility] Differential cell count method Nom (Bld) Auto [facility] Eosinophils (Bld) [#/Vol] 0.51 10*3/uL High <0.46 k/uL [facility] Eosinophils/100 WBC (Bld) 7.2 % [facility] Erythrocyte distribution width (RBC) [Ratio] 13.5 % 11.5 - 15.0 % [facility] Hematocrit (Bld) [Volume fraction] 40.6 % 39.0 - 51.0 % [facility] Hemoglobin (Bld) [Mass/Vol] 13.7 g/dL 13.0 - 17.0 g/dL [facility] Immature granulocytes (Bld) [#/Vol] 0.03 10*3/uL <0.10 k/uL [facility] Immature granulocytes/100 WBC (Bld) 0.4 % [facility] Lymphocytes (Bld) [#/Vol] 1.84 10*3/uL 1.00 - 4.00 k/uL [facility] Lymphocytes/100 WBC (Bld) 25.8 % [facility] MCH (RBC) [Entitic mass] 31.4 pg 26.0 - 34.0 pg [facility] MCHC (RBC) [Mass/Vol] 33.7 g/dL 30.5 - 36.0 g/dL [facility] MCV (RBC) [Entitic vol] 93.1 fL 80.0 - 100.0 fL [facility] Monocytes (Bld) [#/Vol] 0.58 10*3/uL <0.87 k/uL [facility] Monocytes/100 WBC (Bld) 8.1 % [facility] Neutrophils (Bld) [#/Vol] 4.11 10*3/uL 1.45 - 7.50 k/uL [facility] Neutrophils/100 WBC (Bld) 57.7 % [facility] Nucleated RBC (Bld) [#/Vol] <0.01 k/uL [facility] Nucleated RBC/100 WBC (Bld) [Ratio] 0.0 /100 WBC [facility] Platelet mean volume (Bld) [Entitic vol] 9.9 fL 9.0 - 12.7 fL [facility] Platelets (Bld) [#/Vol] 218 10*3/uL 150 - 400 k/uL [facility] RBC (Bld) [#/Vol] 4.36 10*6/uL 4.20 - 6.0 0 m/uL [facility] WBC (Bld) [#/Vol] 7.13 10*3/uL 3.70 - 11.00 k/uL [facility] Comprehensive metabolic 2000 panelon 07-21-2023 Albumin [Mass/Vol] 4.2 g/dL 3.9 - 4.9 g/dL [facility] ALP [Catalytic activity/Vol] 66 U/L 38 - 113 U/L [facility] ALT [Catalytic activity/Vol] 13 U/L 10 - 54 U/L [facility] Anion gap [Moles/Vol] 9 mmol/L 9 - 18 mmol/L [facility] AST [Catalytic activity/Vol] 19 U/L 14 - 40 U/L [facility] Bilirubin [Mass/Vol] 0.2 mg/dL 0.2 - 1.3 mg/dL [facility] Calcium [Mass/Vol] 9.3 mg/dL 8.5 - 10. 2 mg/dL [facility] Chloride [Moles/Vol] 104 mmol/L 97 - 105 mmol/L [facility] CO2 [Moles/Vol] 26 mmol/L 22 - 30 mmol/L [facility] Creatinine [Mass/Vol] 0.71 mg/dL Low 0.73 - 1.22 mg/dL [facility] Estimated Glomerular Filtration Rate 99 mL/min/1.73m >=60 mL/min/1.73 m [facility] Glucose [Mass/Vol] 81 mg/dL 74 - 99 mg/dL [facility] Potassium [Moles/Vol] 4.0 mmol/L 3.7 - 5.1 mmol/L [facility] Protein [Mass/Vol] 6.6 g/dL 6.3 - 8.0 g/dL [facility] Sodium [Moles/Vol] 139 mmol/L 136 - 144 mmol/L [facility] Urea nitrogen [Mass/Vol] 10 mg/dL 9 - 24 mg/dL [facility] No Panel Informationon 05-16 [facility] US DVT LOWER RTon 05-16-2023 US DVT [...] imaged segments of the right lower extremity. Pipe Stripper: [facility] Transcribe Date/Time: May 16 2023 10:37A Dictated by : NICHO RAJAN MD This examination was interpreted and the report reviewed and electronically signed by: NICHO RAJAN MD on May 16 2023 10:38AM EST [id number] Normal [facility] XR FEMUR GENERAL 2V AP/LAT R [facility] 05-16-2023 [facility] XR Femur - right AP and Late ralon 05-16-2023 IMPRESSION: 1. No radiographic evidence of acute osseous injury. 2. Few scattered sclerotic foci compatible with known osseous metastatic disease Pipe Stripper: [facility] Transcribe Date/Time: May 16 2023 8:20A [...] foci compatible with known osseous metastatic disease Pipe Stripper: [facility] Transcribe Date/Time: May 16 2023 8:20A Dictated by : JEN RONDON MD This examination was interpreted and the report reviewed and electronically signed by: JEN RONDON MD on May 16 2023 8:25AM EST [facility] Radiology Study observation (narrative) [facility] XR Femur - right AP and Late ralOrdered By: Ccf Provider on 05-16-2023 [facility] Basic metabolic 2000 panelon 05-11-2023 Anion gap [Moles/Vol] 9 mmol/L 9 - 18 mmol/L [facility] Calcium [Mass/Vol] 9.5 mg/dL 8.5 - 10. 2 mg/dL [facility] Chloride [Moles/Vol] 104 mmol/L 97 - 105 mmol/L [facility] CO2 [Moles/Vol] 24 mmol/L 22 - 30 mmol/L [facility] Creatinine [Mass/Vol] 0.70 mg/dL Low 0.73 - 1.22 mg/dL [facility] Estimated Glomerular Filtration Rate 100 mL/min/1.73m >=60 mL/min/1.73 m [facility] Glucose [Mass/Vol] 125 mg/dL High 74 - 99 mg/dL [facility] Potassium [Moles/Vol] 3.7 mmol/L 3.7 - 5.1 mmol/L [facility] Sodium [Moles/Vol] 137 mmol/L 136 - 144 mmol/L [facility] Urea nitrogen [Mass/Vol] 6 mg/dL Low 9 - 24 mg/dL [facility] CBC W Auto Differential pane l (Bld)on 04-28-2023 Basophils (Bld) [#/Vol] 0.09 10*3/uL <0.11 k/uL [facility] Basophils/100 WBC (Bld) 1.0 % [facility] Differential cell count method Nom (Bld) Auto [facility] Eosinophils (Bld) [#/Vol] 0.46 10*3/uL High <0.46 k/uL [facility] Eosinophils/100 WBC (Bld) 5.3 % [facility] Erythrocyte distribution width (RBC) [Ratio] 13.3 % 11.5 - 15.0 % [facility] Hematocrit (Bld) [Volume fraction] 40.1 % 39.0 - 51.0 % [facility] Hemoglobin (Bld) [Mass/Vol] 13.8 g/dL 13.0 - 17.0 g/dL [facility] Immature granulocytes (Bld) [#/Vol] <0.10 k/uL [facility] Immature granulocytes/100 WBC (Bld) 0.2 % [facility] Lymphocytes (Bld) [#/Vol] 2.06 10*3/uL 1.00 - 4.00 k/uL [facility] Lymphocytes/100 WBC (Bld) 23.6 % [facility] MCH (RBC) [Entitic mass] 31.8 pg 26.0 - 34.0 pg [facility] MCHC (RBC) [Mass/Vol] 34.4 g/dL 30.5 - 36.0 g/dL [facility] MCV (RBC) [Entitic vol] 92.4 fL 80.0 - 100.0 fL [facility] Monocytes (Bld) [#/Vol] 0.58 10*3/uL <0.87 k/uL [facility] Monocytes/100 WBC (Bld) 6.6 % [facility] Neutrophils (Bld) [#/Vol] 5.52 10*3/uL 1.45 - 7.50 k/uL [facility] Neutrophils/100 WBC (Bld) 63.3 % [facility] Nucleated RBC (Bld) [#/Vol] <0.01 k/uL [facility] Nucleated RBC/100 WBC (Bld) [Ratio] 0.0 /100 WBC [facility] Platelet mean volume (Bld) [Entitic vol] 9.6 fL 9.0 - 12.7 fL [facility] Platelets (Bld) [#/Vol] 268 10*3/uL 150 - 400 k/uL [facility] RBC (Bld) [#/Vol] 4.34 10*6/uL 4.20 - 6.0 0 m/uL [facility] WBC (Bld) [#/Vol] 8.73 10*3/uL 3.70 - 11.00 k/uL [facility] Comprehensive metabolic 2000 panelon 04-28-2023 Albumin [Mass/Vol] 4.4 g/dL 3.9 - 4.9 g/dL [facility] ALP [Catalytic activity/Vol] 64 U/L 38 - 113 U/L [facility] ALT [Catalytic activity/Vol] 8 U/L Low 10 - 54 U/L [facility] Anion gap [Moles/Vol] 10 mmol/L 9 - 18 mmol/L [facility] AST [Catalytic activity/Vol] 13 U/L Low 14 - 40 U/L [facility] Bilirubin [Mass/Vol] 0.4 mg/dL 0.2 - 1.3 mg/dL [facility] Calcium [Mass/Vol] 9.7 mg/dL 8.5 - 10. 2 mg/dL [facility] Chloride [Moles/Vol] 104 mmol/L 97 - 105 mmol/L [facility] CO2 [Moles/Vol] 23 mmol/L 22 - 30 mmol/L [facility] Creatinine [Mass/Vol] 0.71 mg/dL Low 0.73 - 1.22 mg/dL [facility] Estimated Glomerular Filtration Rate 99 mL/min/1.73m >=60 mL/min/1.73 m [facility] Glucose [Mass/Vol] 95 mg/dL 74 - 99 mg/dL [facility] Potassium [Moles/Vol] 3.9 mmol/L 3.7 - 5.1 mmol/L [facility] Protein [Mass/Vol] 6.7 g/dL 6.3 - 8.0 g/dL [facility] Sodium [Moles/Vol] 137 mmol/L 136 - 144 mmol/L [facility] Urea nitrogen [Mass/Vol] 7 mg/dL Low 9 - 24 mg/dL [facility] CBC W Auto Differential pane l (Bld)on 03-02-2023 Basophils (Bld) [#/Vol] 0.08 10*3/uL <0.11 k/uL [facility] Basophils/100 WBC (Bld) 0.9 % [facility] Differential cell count method Nom (Bld) Auto [facility] Eosinophils (Bld) [#/Vol] 0.45 10*3/uL <0.46 k/uL [facility] Eosinophils/100 WBC (Bld) 5.1 % [facility] Erythrocyte distribution width (RBC) [Ratio] 13.3 % 11.5 - 15.0 % [facility] Hematocrit (Bld) [Volume fraction] 39.5 % 39.0 - 51.0 % [facility] Hemoglobin (Bld) [Mass/Vol] 13.7 g/dL 13.0 - 17.0 g/dL [facility] Immature granulocytes (Bld) [#/Vol] <0.10 k/uL [facility] Immature granulocytes/100 WBC (Bld) 0.2 % [facility] Lymphocytes (Bld) [#/Vol] 1.89 10*3/uL 1.00 - 4.00 k/uL [facility] Lymphocytes/100 WBC (Bld) 21.6 % [facility] MCH (RBC) [Entitic mass] 31.7 pg 26.0 - 34.0 pg [facility] MCHC (RBC) [Mass/Vol] 34.7 g/dL 30.5 - 36.0 g/dL [facility] MCV (RBC) [Entitic vol] 91.4 fL 80.0 - 100.0 fL [facility] Monocytes (Bld) [#/Vol] 0.60 10*3/uL <0.87 k/uL [facility] Monocytes/100 WBC (Bld) 6.9 % [facility] Neutrophils (Bld) [#/Vol] 5.71 10*3/uL 1.45 - 7.50 k/uL [facility] Neutrophils/100 WBC (Bld) 65.3 % [facility] Nucleated RBC (Bld) [#/Vol] <0.01 k/uL [facility] Nucleated RBC/100 WBC (Bld) [Ratio] 0.0 /100 WBC [facility] Platelet mean volume (Bld) [Entitic vol] 10.1 fL 9.0 - 12.7 fL [facility] Platelets (Bld) [#/Vol] 242 10*3/uL 150 - 400 k/uL [facility] RBC (Bld) [#/Vol] 4.32 10*6/uL 4.20 - 6.0 0 m/uL [facility] WBC (Bld) [#/Vol] 8.75 10*3/uL 3.70 - 11.00 k/uL [facility] CT ABD/PEL W IVCONon 023 [facility] Comprehensive metabolic 2000 panelon 03-02-2023 Albumin [Mass/Vol] 4.3 g/dL 3.9 - 4.9 g/dL [facility] ALP [Catalytic activity/Vol] 66 U/L 38 - 113 U/L [facility] ALT [Catalytic activity/Vol] 8 U/L Low 10 - 54 U/L [facility] Anion gap [Moles/Vol] 8 mmol/L Low 9 - 18 mmol/L [facility] AST [Catalytic activity/Vol] 13 U/L Low 14 - 40 U/L [facility] Bilirubin [Mass/Vol] 0.5 mg/dL 0.2 - 1.3 mg/dL [facility] Calcium [Mass/Vol] 9.2 mg/dL 8.5 - 10. 2 mg/dL [facility] Chloride [Moles/Vol] 105 mmol/L 97 - 105 mmol/L [facility] CO2 [Moles/Vol] 27 mmol/L 22 - 30 mmol/L [facility] Creatinine [Mass/Vol] 0.82 mg/dL 0.73 - 1.22 mg/dL [facility] Estimated Glomerular Filtration Rate 96 mL/min/1.73m >=60 mL/min/1.73 m [facility] Glucose [Mass/Vol] 106 mg/dL High 74 - 99 mg/dL [facility] Potassium [Moles/Vol] 4.1 mmol/L 3.7 - 5.1 mmol/L [facility] Protein [Mass/Vol] 6.5 g/dL 6.3 - 8.0 g/dL [facility] Sodium [Moles/Vol] 140 mmol/L 136 - 144 mmol/L [facility] Urea nitrogen [Mass/Vol] 10 mg/dL 9 - 24 mg/dL [facility] NM BONE WHOLE BODYon 023 [facility] Basic metabolic 2000 panelon 02-16-2023 Anion gap [Moles/Vol] 11 mmol/L 9 - 18 mmol/L [facility] Calcium [Mass/Vol] 9.6 mg/dL 8.5 - 10. 2 mg/dL [facility] Chloride [Moles/Vol] 101 mmol/L 97 - 105 mmol/L [facility] CO2 [Moles/Vol] 25 mmol/L 22 - 30 mmol/L [facility] Creatinine [Mass/Vol] 0.80 mg/dL 0.73 - 1.22 mg/dL [facility] Estimated Glomerular Filtration Rate 96 mL/min/1.73m >=60 mL/min/1.73 m [facility] Glucose [Mass/Vol] 110 mg/dL High 74 - 99 mg/dL [facility] Potassium [Moles/Vol] 3.7 mmol/L 3.7 - 5.1 mmol/L [facility] Sodium [Moles/Vol] 137 mmol/L 136 - 144 mmol/L [facility] Urea nitrogen [Mass/Vol] 10 mg/dL 9 - 24 mg/dL [facility] Basic metabolic 2000 panelon 09-01-2022 Anion gap [Moles/Vol] 10 mmol/L 9 - 18 mmol/L [facility] Calcium [Mass/Vol] 9.6 mg/dL 8.5 - 10. 2 mg/dL [facility] Chloride [Moles/Vol] 103 mmol/L 97 - 105 mmol/L [facility] CO2 [Moles/Vol] 28 mmol/L 22 - 30 mmol/L [facility] Creatinine [Mass/Vol] 0.80 mg/dL 0.73 - 1.22 mg/dL [facility] Estimated Glomerular Filtration Rate 96 mL/min/1.73m >=60 mL/min/1.73 m [facility] Glucose [Mass/Vol] 98 mg/dL 74 - 99 mg/dL [facility] Potassium [Moles/Vol] 3.6 mmol/L Low 3.7 - 5.1 mmol/L [facility] Sodium [Moles/Vol] 141 mmol/L 136 - 144 mmol/L [facility] Urea nitrogen [Mass/Vol] 10 mg/dL 9 - 24 mg/dL [facility] CT ABD/PEL W IVCONon 022 [facility] CBC W Auto Differential pane l (Bld)on 08-12-2022 Basophils (Bld) [#/Vol] 0.11 10*3/uL High <0.11 k/uL [facility] Basophils/100 WBC (Bld) 1.1 % [facility] Differential cell count method Nom (Bld) Auto [facility] Eosinophils (Bld) [#/Vol] 0.49 10*3/uL High <0.46 k/uL [facility] Eosinophils/100 WBC (Bld) 5.0 % [facility] Erythrocyte distribution width (RBC) [Ratio] 12.7 % 11.5 - 15.0 % [facility] Hematocrit (Bld) [Volume fraction] 39.7 % 39.0 - 51.0 % [facility] Hemoglobin (Bld) [Mass/Vol] 14.0 g/dL 13.0 - 17.0 g/dL [facility] Immature granulocytes (Bld) [#/Vol] <0.10 k/uL [facility] Immature granulocytes/100 WBC (Bld) 0.2 % [facility] Lymphocytes (Bld) [#/Vol] 2.40 10*3/uL 1.00 - 4.00 k/uL [facility] Lymphocytes/100 WBC (Bld) 24.4 % [facility] MCH (RBC) [Entitic mass] 32.6 pg 26.0 - 34.0 pg [facility] MCHC (RBC) [Mass/Vol] 35.3 g/dL 30.5 - 36.0 g/dL [facility] MCV (RBC) [Entitic vol] 92.3 fL 80.0 - 100.0 fL [facility] Monocytes (Bld) [#/Vol] 0.71 10*3/uL <0.87 k/uL [facility] Monocytes/100 WBC (Bld) 7.2 % [facility] Neutrophils (Bld) [#/Vol] 6.10 10*3/uL 1.45 - 7.50 k/uL [facility] Neutrophils/100 WBC (Bld) 62.1 % [facility] Nucleated RBC (Bld) [#/Vol] <0.01 k/uL [facility] Nucleated RBC/100 WBC (Bld) [Ratio] 0.0 /100 WBC [facility] Platelet mean volume (Bld) [Entitic vol] 9.8 fL 9.0 - 12.7 fL [facility] Platelets (Bld) [#/Vol] 246 10*3/uL 150 - 400 k/uL [facility] RBC (Bld) [#/Vol] 4.30 10*6/uL 4.20 - 6.0 0 m/uL [facility] WBC (Bld) [#/Vol] 9.83 10*3/uL 3.70 - 11.00 k/uL [facility] CBC W Auto Differential pane l (Bld)on 06-28-2022 Basophils (Bld) [#/Vol] 0.08 10*3/uL <0.11 k/uL [facility] Basophils/100 WBC (Bld) 0.7 % [facility] Differential cell count method Nom (Bld) Auto [facility] Eosinophils (Bld) [#/Vol] 0.36 10*3/uL <0.46 k/uL [facility] Eosinophils/100 WBC (Bld) 3.1 % [facility] Erythrocyte distribution width (RBC) [Ratio] 13.3 % 11.5 - 15.0 % [facility] Hematocrit (Bld) [Volume fraction] 41.0 % 39.0 - 51.0 % [facility] Hemoglobin (Bld) [Mass/Vol] 14.4 g/dL 13.0 - 17.0 g/dL [facility] Immature granulocytes (Bld) [#/Vol] 0.04 10*3/uL <0.10 k/uL [facility] Immature granulocytes/100 WBC (Bld) 0.3 % [facility] Lymphocytes (Bld) [#/Vol] 2.18 10*3/uL 1.00 - 4.00 k/uL [facility] Lymphocytes/100 WBC (Bld) 19.0 % [facility] MCH (RBC) [Entitic mass] 32.6 pg 26.0 - 34.0 pg [facility] MCHC (RBC) [Mass/Vol] 35.1 g/dL 30.5 - 36.0 g/dL [facility] MCV (RBC) [Entitic vol] 92.8 fL 80.0 - 100.0 fL [facility] Monocytes (Bld) [#/Vol] 0.73 10*3/uL <0.87 k/uL [facility] Monocytes/100 WBC (Bld) 6.4 % [facility] Neutrophils (Bld) [#/Vol] 8.07 10*3/uL High 1.45 - 7.50 k/uL [facility] Neutrophils/100 WBC (Bld) 70.5 % [facility] Nucleated RBC (Bld) [#/Vol] <0.01 k/uL [facility] Nucleated RBC/100 WBC (Bld) [Ratio] 0.0 /100 WBC [facility] Platelet mean volume (Bld) [Entitic vol] 10.4 fL 9.0 - 12.7 fL [facility] Platelets (Bld) [#/Vol] 241 10*3/uL 150 - 400 k/uL [facility] RBC (Bld) [#/Vol] 4.42 10*6/uL 4.20 - 6.0 0 m/uL [facility] WBC (Bld) [#/Vol] 11.46 10*3/uL High 3.70 - 11.00 k/uL [facility] Comprehensive metabolic 2000 panelon 06-28-2022 Albumin [Mass/Vol] 4.7 g/dL 3.9 - 4.9 g/dL [facility] ALP [Catalytic activity/Vol] 86 U/L 38 - 113 U/L [facility] ALT [Catalytic activity/Vol] 8 U/L Low 10 - 54 U/L [facility] Anion gap [Moles/Vol] 11 mmol/L 9 - 18 mmol/L [facility] AST [Catalytic activity/Vol] 12 U/L Low 14 - 40 U/L [facility] Bilirubin [Mass/Vol] 0.4 mg/dL 0.2 - 1.3 mg/dL [facility] Calcium [Mass/Vol] 9.8 mg/dL 8.5 - 10. 2 mg/dL [facility] Chloride [Moles/Vol] 102 mmol/L 97 - 105 mmol/L [facility] CO2 [Moles/Vol] 26 mmol/L 22 - 30 mmol/L [facility] Creatinine [Mass/Vol] 0.81 mg/dL 0.73 - 1.22 mg/dL [facility] Estimated Glomerular Filtration Rate 96 mL/min/1.73m >=60 mL/min/1.73 m [facility] Glucose [Mass/Vol] 98 mg/dL 74 - 99 mg/dL [facility] Potassium [Moles/Vol] 3.6 mmol/L Low 3.7 - 5.1 mmol/L [facility] Protein [Mass/Vol] 6.8 g/dL 6.3 - 8.0 g/dL [facility] Sodium [Moles/Vol] 139 mmol/L 136 - 144 mmol/L [facility] Urea nitrogen [Mass/Vol] 9 mg/dL 9 - 24 mg/dL [facility] LD LACTATE DEHYDROon 06-28- LDH [Catalytic activity/Vol] 213 U/L 135 - 225 U/L [facility] Basic metabolic 2000 panelon 06-10-2022 Anion gap [Moles/Vol] 9 mmol/L 9 - 18 mmol/L [facility] Calcium [Mass/Vol] 8.5 mg/dL 8.5 - 10. 2 mg/dL [facility] Chloride [Moles/Vol] 108 mmol/L High 97 - 105 mmol/L [facility] CO2 [Moles/Vol] 24 mmol/L 22 - 30 mmol/L [facility] Creatinine [Mass/Vol] 0.74 mg/dL 0.73 - 1.22 mg/dL [facility] Estimated Glomerular Filtration Rate 99 mL/min/1.73m >=60 mL/min/1.73 m [facility] Glucose [Mass/Vol] 85 mg/dL 74 - 99 mg/dL [facility] Potassium [Moles/Vol] 3.7 mmol/L 3.7 - 5.1 mmol/L [facility] Sodium [Moles/Vol] 141 mmol/L 136 - 144 mmol/L [facility] Urea nitrogen [Mass/Vol] 11 mg/dL 9 - 24 mg/dL [facility] CBC W Auto Differential pane l (Bld)on 05-20-2022 Abs Immature Gran 0.05 k/uL <0.10 k/uL [facility] Basophils (Bld) [#/Vol] 0.09 10*3/uL <0.11 k/uL [facility] Basophils/100 WBC (Bld) 0.9 % [facility] Differential cell count method Nom (Bld) Auto [facility] Eosinophils (Bld) [#/Vol] 0.38 10*3/uL <0.46 k/uL [facility] Eosinophils/100 WBC (Bld) 3.6 % [facility] Erythrocyte distribution width (RBC) [Ratio] 13.5 % 11.5 - 15.0 % [facility] Hematocrit (Bld) [Volume fraction] 40.9 % 39.0 - 51.0 % [facility] Hemoglobin (Bld) [Mass/Vol] 14.2 g/dL 13.0 - 17.0 g/dL [facility] Immature Gran % 0.5 % [facility] Lymphocytes (Bld) [#/Vol] 1.69 10*3/uL 1.00 - 4.00 k/uL [facility] Lymphocytes/100 WBC (Bld) 16.2 % [facility] MCH (RBC) [Entitic mass] 32.2 pg 26.0 - 34.0 pg [facility] MCHC (RBC) [Mass/Vol] 34.7 g/dL 30.5 - 36.0 g/dL [facility] MCV (RBC) [Entitic vol] 92.7 fL 80.0 - 100.0 fL [facility] Monocytes (Bld) [#/Vol] 0.54 10*3/uL <0.87 k/uL [facility] Monocytes/100 WBC (Bld) 5.2 % [facility] Neutrophils (Bld) [#/Vol] 7.69 10*3/uL High 1.45 - 7.50 k/uL [facility] Neutrophils/100 WBC (Bld) 73.6 % [facility] Nucleated RBC (Bld) [#/Vol] <0.01 k/uL [facility] Nucleated RBC/100 WBC (Bld) [Ratio] 0.0 /100 WBC [facility] Platelet mean volume (Bld) [Entitic vol] 9.9 fL 9.0 - 12.7 fL [facility] Platelets (Bld) [#/Vol] 228 10*3/uL 150 - 400 k/uL [facility] RBC (Bld) [#/Vol] 4.41 10*6/uL 4.20 - 6.0 0 m/uL [facility] WBC (Bld) [#/Vol] 10.44 10*3/uL 3.70 - 11.00 k/uL [facility] Comprehensive metabolic 2000 panelon 05-20-2022 Albumin [Mass/Vol] 4.4 g/dL 3.9 - 4.9 g/dL [facility] ALP [Catalytic activity/Vol] 81 U/L 38 - 113 U/L [facility] ALT [Catalytic activity/Vol] 11 U/L 10 - 54 U/L [facility] Anion gap [Moles/Vol] 10 mmol/L 9 - 18 mmol/L [facility] AST [Catalytic activity/Vol] 15 U/L 14 - 40 U/L [facility] Bilirubin [Mass/Vol] 0.4 mg/dL 0.2 - 1.3 mg/dL [facility] Calcium [Mass/Vol] 9.3 mg/dL 8.5 - 10. 2 mg/dL [facility] Chloride [Moles/Vol] 104 mmol/L 97 - 105 mmol/L [facility] CO2 [Moles/Vol] 26 mmol/L 22 - 30 mmol/L [facility] Creatinine [Mass/Vol] 0.89 mg/dL 0.73 - 1.22 mg/dL [facility] Estimated Glomerular Filtration Rate 93 mL/min/1.73m >=60 mL/min/1.73 m [facility] Glucose [Mass/Vol] 117 mg/dL High 74 - 99 mg/dL [facility] Potassium [Moles/Vol] 3.4 mmol/L Low 3.7 - 5.1 mmol/L [facility] Protein [Mass/Vol] 6.7 g/dL 6.3 - 8.0 g/dL [facility] Sodium [Moles/Vol] 140 mmol/L 136 - 144 mmol/L [facility] Urea nitrogen [Mass/Vol] 12 mg/dL 9 - 24 mg/dL [facility] LD LACTATE DEHYDROon 022 LDH [Catalytic activity/Vol] 208 U/L 135 - 225 U/L [facility] CBC W Auto Differential pane l (Bld)on 04-04-2022 Abs Immature Gran 0.04 k/uL <0.10 k/uL [facility] Basophils (Bld) [#/Vol] 0.08 10*3/uL <0.11 k/uL [facility] Basophils/100 WBC (Bld) 0.8 % [facility] Differential cell count method Nom (Bld) Auto [facility] Eosinophils (Bld) [#/Vol] 0.25 10*3/uL <0.46 k/uL [facility] Eosinophils/100 WBC (Bld) 2.6 % [facility] Erythrocyte distribution width (RBC) [Ratio] 13.2 % 11.5 - 15.0 % [facility] Hematocrit (Bld) [Volume fraction] 42.0 % 39.0 - 51.0 % [facility] Hemoglobin (Bld) [Mass/Vol] 14.6 g/dL 13.0 - 17.0 g/dL [facility] Immature Gran % 0.4 % [facility] Lymphocytes (Bld) [#/Vol] 1.82 10*3/uL 1.00 - 4.00 k/uL [facility] Lymphocytes/100 WBC (Bld) 19.0 % [facility] MCH (RBC) [Entitic mass] 32.1 pg 26.0 - 34.0 pg [facility] MCHC (RBC) [Mass/Vol] 34.8 g/dL 30.5 - 36.0 g/dL [facility] MCV (RBC) [Entitic vol] 92.3 fL 80.0 - 100.0 fL [facility] Monocytes (Bld) [#/Vol] 0.64 10*3/uL <0.87 k/uL [facility] Monocytes/100 WBC (Bld) 6.7 % [facility] Neutrophils (Bld) [#/Vol] 6.76 10*3/uL 1.45 - 7.50 k/uL [facility] Neutrophils/100 WBC (Bld) 70.5 % [facility] Nucleated RBC (Bld) [#/Vol] 10*3/uL <0.01 k/uL [facility] Nucleated RBC/100 WBC (Bld) [Ratio] 0.0 /100 WBC [facility] Platelet mean volume (Bld) [Entitic vol] 9.9 fL 9.0 - 12.7 fL [facility] Platelets (Bld) [#/Vol] 235 10*3/uL 150 - 400 k/uL [facility] RBC (Bld) [#/Vol] 4.55 10*6/uL 4.20 - 6.0 0 m/uL [facility] WBC (Bld) [#/Vol] 9.59 10*3/uL 3.70 - 11.00 k/uL [facility] Comprehensive metabolic 2000 panelon 04-04-2022 Albumin [Mass/Vol] 4.7 g/dL 3.9 - 4.9 g/dL [facility] ALP [Catalytic activity/Vol] 91 U/L 38 - 113 U/L [facility] ALT [Catalytic activity/Vol] 9 U/L Low 10 - 54 U/L [facility] Anion gap [Moles/Vol] 11 mmol/L 9 - 18 mmol/L [facility] AST [Catalytic activity/Vol] 14 U/L 14 - 40 U/L [facility] Bilirubin [Mass/Vol] 0.6 mg/dL 0.2 - 1.3 mg/dL [facility] Calcium [Mass/Vol] 9.6 mg/dL 8.5 - 10. 2 mg/dL [facility] Chloride [Moles/Vol] 102 mmol/L 97 - 105 mmol/L [facility] CO2 [Moles/Vol] 24 mmol/L 22 - 30 mmol/L [facility] Creatinine [Mass/Vol] 0.88 mg/dL 0.73 - 1.22 mg/dL [facility] Estimated Glomerular Filtration Rate 94 mL/min/1.73m >=60 mL/min/1.73 m [facility] Glucose [Mass/Vol] 103 mg/dL High 74 - 99 mg/dL [facility] Potassium [Moles/Vol] 4.1 mmol/L 3.7 - 5.1 mmol/L [facility] Protein [Mass/Vol] 7.0 g/dL 6.3 - 8.0 g/dL [facility] Sodium [Moles/Vol] 137 mmol/L 136 - 144 mmol/L [facility] Urea nitrogen [Mass/Vol] 13 mg/dL 9 - 24 mg/dL [facility] CBC W Auto Differential pane l (Bld)on 03-18-2022 Abs Immature Gran <0.03 <0.10 k/uL [facility] Basophils (Bld) [#/Vol] 0.08 10*3/uL <0.11 k/uL [facility] Basophils/100 WBC (Bld) 1.0 % [facility] Differential cell count method Nom (Bld) Auto [facility] Eosinophils (Bld) [#/Vol] 0.32 10*3/uL <0.46 k/uL [facility] Eosinophils/100 WBC (Bld) 3.8 % [facility] Erythrocyte distribution width (RBC) [Ratio] 13.2 % 11.5 - 15.0 % [facility] Hematocrit (Bld) [Volume fraction] 40.5 % 39.0 - 51.0 % [facility] Hemoglobin (Bld) [Mass/Vol] 14.2 g/dL 13.0 - 17.0 g/dL [facility] Immature Gran % 0.2 % [facility] Lymphocytes (Bld) [#/Vol] 1.88 10*3/uL 1.00 - 4.00 k/uL [facility] Lymphocytes/100 WBC (Bld) 22.3 % [facility] MCH (RBC) [Entitic mass] 31.7 pg 26.0 - 34.0 pg [facility] MCHC (RBC) [Mass/Vol] 35.1 g/dL 30.5 - 36.0 g/dL [facility] MCV (RBC) [Entitic vol] 90.4 fL 80.0 - 100.0 fL [facility] Monocytes (Bld) [#/Vol] 0.52 10*3/uL <0.87 k/uL [facility] Monocytes/100 WBC (Bld) 6.2 % [facility] Neutrophils (Bld) [#/Vol] 5.60 10*3/uL 1.45 - 7.50 k/uL [facility] Neutrophils/100 WBC (Bld) 66.5 % [facility] Nucleated RBC (Bld) [#/Vol] 10*3/uL <0.01 k/uL [facility] Nucleated RBC/100 WBC (Bld) [Ratio] 0.0 /100 WBC [facility] Platelet mean volume (Bld) [Entitic vol] 9.7 fL 9.0 - 12.7 fL [facility] Platelets (Bld) [#/Vol] 246 10*3/uL 150 - 400 k/uL [facility] RBC (Bld) [#/Vol] 4.48 10*6/uL 4.20 - 6.0 0 m/uL [facility] WBC (Bld) [#/Vol] 8.42 10*3/uL 3.70 - 11.00 k/uL [facility] Comprehensive metabolic 2000 panelon 03-18-2022 Albumin [Mass/Vol] 4.5 g/dL 3.9 - 4.9 g/dL [facility] ALP [Catalytic activity/Vol] 84 U/L 38 - 113 U/L [facility] ALT [Catalytic activity/Vol] 8 U/L Low 10 - 54 U/L [facility] Anion gap [Moles/Vol] 10 mmol/L 9 - 18 mmol/L [facility] AST [Catalytic activity/Vol] 16 U/L 14 - 40 U/L [facility] Bilirubin [Mass/Vol] 0.3 mg/dL 0.2 - 1.3 mg/dL [facility] Calcium [Mass/Vol] 9.2 mg/dL 8.5 - 10. 2 mg/dL [facility] Chloride [Moles/Vol] 102 mmol/L 97 - 105 mmol/L [facility] CO2 [Moles/Vol] 25 mmol/L 22 - 30 mmol/L [facility] Creatinine [Mass/Vol] 0.82 mg/dL 0.73 - 1.22 mg/dL [facility] Estimated Glomerular Filtration Rate 96 mL/min/1.73m >=60 mL/min/1.73 m [facility] Glucose [Mass/Vol] 90 mg/dL 74 - 99 mg/dL [facility] Potassium [Moles/Vol] 4.1 mmol/L 3.7 - 5.1 mmol/L [facility] Protein [Mass/Vol] 6.8 g/dL 6.3 - 8.0 g/dL [facility] Sodium [Moles/Vol] 137 mmol/L 136 - 144 mmol/L [facility] Urea nitrogen [Mass/Vol] 10 mg/dL 9 - 24 mg/dL [facility] LD LACTATE DEHYDROon 022 LDH [Catalytic activity/Vol] 172 U/L 135 - 225 U/L [facility] CBC W Auto Differential pane l (Bld)on 03-04-2022 Abs Immature Gran 0.03 k/uL <0.10 k/uL [facility] Basophils (Bld) [#/Vol] 0.09 10*3/uL <0.11 k/uL [facility] Basophils/100 WBC (Bld) 1.0 % [facility] Differential cell count method Nom (Bld) Auto [facility] Eosinophils (Bld) [#/Vol] 0.44 10*3/uL <0.46 k/uL [facility] Eosinophils/100 WBC (Bld) 5.1 % [facility] Erythrocyte distribution width (RBC) [Ratio] 12.9 % 11.5 - 15.0 % [facility] Hematocrit (Bld) [Volume fraction] 39.8 % 39.0 - 51.0 % [facility] Hemoglobin (Bld) [Mass/Vol] 13.9 g/dL 13.0 - 17.0 g/dL [facility] Immature Gran % 0.3 % [facility] Lymphocytes (Bld) [#/Vol] 1.84 10*3/uL 1.00 - 4.00 k/uL [facility] Lymphocytes/100 WBC (Bld) 21.2 % [facility] MCH (RBC) [Entitic mass] 32.4 pg 26.0 - 34.0 pg [facility] MCHC (RBC) [Mass/Vol] 34.9 g/dL 30.5 - 36.0 g/dL [facility] MCV (RBC) [Entitic vol] 92.8 fL 80.0 - 100.0 fL [facility] Monocytes (Bld) [#/Vol] 0.54 10*3/uL <0.87 k/uL [facility] Monocytes/100 WBC (Bld) 6.2 % [facility] Neutrophils (Bld) [#/Vol] 5.75 10*3/uL 1.45 - 7.50 k/uL [facility] Neutrophils/100 WBC (Bld) 66.2 % [facility] Nucleated RBC (Bld) [#/Vol] 10*3/uL <0.01 k/uL [facility] Nucleated RBC/100 WBC (Bld) [Ratio] 0.0 /100 WBC [facility] Platelet mean volume (Bld) [Entitic vol] 9.4 fL 9.0 - 12.7 fL [facility] Platelets (Bld) [#/Vol] 228 10*3/uL 150 - 400 k/uL [facility] RBC (Bld) [#/Vol] 4.29 10*6/uL 4.20 - 6.0 0 m/uL [facility] WBC (Bld) [#/Vol] 8.69 10*3/uL 3.70 - 11.00 k/uL [facility] Comprehensive metabolic 2000 panelon 03-04-2022 Albumin [Mass/Vol] 4.2 g/dL 3.9 - 4.9 g/dL [facility] ALP [Catalytic activity/Vol] 80 U/L 38 - 113 U/L [facility] ALT [Catalytic activity/Vol] 8 U/L Low 10 - 54 U/L [facility] Anion gap [Moles/Vol] 9 mmol/L 9 - 18 mmol/L [facility] AST [Catalytic activity/Vol] 15 U/L 14 - 40 U/L [facility] Bilirubin [Mass/Vol] 0.3 mg/dL 0.2 - 1.3 mg/dL [facility] Calcium [Mass/Vol] 8.6 mg/dL 8.5 - 10. 2 mg/dL [facility] Chloride [Moles/Vol] 107 mmol/L High 97 - 105 mmol/L [facility] CO2 [Moles/Vol] 25 mmol/L 22 - 30 mmol/L [facility] Creatinine [Mass/Vol] 0.85 mg/dL 0.73 - 1.22 mg/dL [facility] Estimated Glomerular Filtration Rate 95 mL/min/1.73m >=60 mL/min/1.73 m [facility] Glucose [Mass/Vol] 98 mg/dL 74 - 99 mg/dL [facility] Potassium [Moles/Vol] 4.0 mmol/L 3.7 - 5.1 mmol/L [facility] Protein [Mass/Vol] 6.0 g/dL Low 6.3 - 8.0 g/dL [facility] Sodium [Moles/Vol] 141 mmol/L 136 - 144 mmol/L [facility] Urea nitrogen [Mass/Vol] 10 mg/dL 9 - 24 mg/dL [facility] LD LACTATE DEHYDROon 022 LDH [Catalytic activity/Vol] 176 U/L 135 - 225 U/L [facility] NM BONE WHOLE BODYon 022 [facility] COLONOSCOPY SCREENINGon 12-10 [facility] XR Chest PA and Lateralon IMPRESSION: No acute radiographic abnormality. Pipe Stripper: MATHEUS Transcribe Date/Time: May 10 2021 8:12A Dictated by : MARYANN ROMERO MD This examination was interpreted and the report reviewed and electronically signed by: MARYANN ROMERO MD on May 10 2021 8:12AM [facility] DIVISION OF RADIOLOGY * * [...] Unremarkable. DIVISION OF RADIOLOGY Provider, Collin Tsang [facility] - 05/10/2021 * * *Final Report* * [...] Unremarkable. IMPRESSION IMPRESSION: No acute radiographic abnormality. Pipe Stripper: PSCB Transcribe Date/Time: May 10 2021 8:12A Dictated by : MARYANN ROMERO MD This examination was interpreted and the report reviewed and electronically signed by: MARYANN ROMERO MD on May 10 2021 8:12AM EST [facility] Radiology Study observation (narrative) [facility] XR Chest PA and LateralOrder ed By: [facility] Provider on 05-10-2021 [facility] XR CHEST 1V FRONTALon 2019 XR CHEST [...] Support lines as discussed without apparent complications. Pipe Stripper: PSCJuan Transcribe Date/Time: Jul 30 2020 2:41P Dictated by : JULISSA HURT MD This examination was interpreted and the report reviewed and electronically signed by: JULISSA HURT MD on Jul 30 2020 2:43PM EST Normal [facility] CASE MANAGEMon 07-15-2020 CASE MANAGEM HNO ID: [id number] Author: Wilbert Brito) HÉCTOR Calderon Service: Case [...] Row Name Admission (Current) from 07/09/[address] Home Health Care Agency [facility] Home Care Start of Care 07/15/20 Durable Medical Equipment Agency [facility] Home Care Pharmacy Equipment Needed PICC line supples and flushes IMM Follow Up Copy Given: Yes Copy given to:: Patient Method: In Person [place] of Choice Given: Yes Level of Care [...] till port placement. Patient aware and picked [facility]/Pharmacy for picc care and supplies. SIGNATURE: WILBERT CALDERON RN PATIENT NAME: Alejandro Killian DATE: July 15, 2020 TIME: 3:17 PM PAGER/CONTACT #: [phone] Normal [facility] CBC and Differentialon 07-15 Abs Baso <0.03 Normal <0.11 [facility] Abs Creek 0.68 k/uL Normal <0.87 [facility] Abs Neut 9.49 k/uL High 1.45-7.50 [facility] Absolute nRBC <0.01 Normal <0.01 [facility] Basophils/100 WBC (Bld) 0.1 % Normal [facility] DTYPE Auto Diff Normal [facility] Eosinophils (Bld) [#/Vol] 10*3/uL Normal <0.46 [facility] Eosinophils/100 WBC (Bld) 0.1 % Normal [facility] Erythrocyte distribution width (RBC) [Ratio] 13.8 % Normal 11.5-15.0 [facility] Hematocrit (Bld) [Volume fraction] 34.1 % Low 39.0-51.0 [facility] Hemoglobin (Bld) [Mass/Vol] 11.3 g/dL Low 13.0-17.0 [facility] Lymphocytes (Bld) [#/Vol] 0.51 10*3/uL Low 1.00-4.00 [facility] Lymphocytes/100 WBC (Bld) 4.8 % Normal [facility] MCH (RBC) [Entitic mass] 31.7 pG Normal 26.0-34.0 [facility] MCHC (RBC) [Mass/Vol] 33.1 g/dL Normal 30.5-36.0 [facility] MCV (RBC) [Entitic vol] 95.5 fL Normal 80.0-100.0 [facility] Monocytes/100 WBC (Bld) 6.4 % Normal [facility] Neutrophils/100 WBC (Bld) 88.6 % Normal [facility] NRBCs 0.0 /100 WBC Normal 0 [facility] Platelet mean volume (Bld) [Entitic vol] 11.3 fL Normal 9.0-12.7 [facility] Platelets (Bld) [#/Vol] 228 10*3/uL Normal 150-400 [facility] RBC (Bld) [#/Vol] 3.57 10*6/uL Low 4.20-6.00 [facility] WBC (Bld) [#/Vol] 10.70 10*3/uL Normal 3.70-11.00 [facility] CNCOon 07-15-2020 CNCO Letter Text Normal [facility] CONSULT PROGon 07-15-2020 CONSULT PROG HNO ID: [id number] Author: Dory Argueta Service: Palliative Care Author Type: Nurse Practitioner Type: Consult Progress Note Filed: 07/15/2020 3:34 PM Note Text: PALLIATIVE MEDICINE CONSULT PROGRESS NOTE To contact the [place] palliative medicine service from 5p - 8a on weekdays and anytime during the weekend, please page [phone] SERVICE DATE: 07/15/2020 PATIENT NAME: Alejandro Killian Subjective Primary Site of Disease/Medical Illness: 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 He is being discharged today. Will follow up with oncology in [place]. REVIEW OF SYSTEMS Modified ESAS ([place] Symptom Assessment Scale): Information Provided By: Patient [...] pain medications -Patient to follow up in [place], [place] for oncology care. Advance Care Planning: Did not discuss Global Assessment: Improving Plan of Care discussed with: Patient and RN SIGNATURE: Dory Argueta APRN.WARP TYING MACHINE TENDER PAGER/CONTACT #: [phone] Normal [facility] Hepatic Functn Panelon 07-15 Albumin [Mass/Vol] 3.6 g/dL Low 3.9-4.9 [facility] ALP [Catalytic activity/Vol] 124 U/L High 38-113 [facility] ALT [Catalytic activity/Vol] 70 U/L High 10-54 [facility] AST [Catalytic activity/Vol] 28 U/L Normal 14-40 [facility] Bilirubin [Mass/Vol] 1.8 mg/dL High 0.2-1.3 [facility] Bilirubin,Conjugate d 1.1 mg/dL High <0.2 [facility] Protein [Mass/Vol] 5.6 g/dL Low 6.3-8.0 [facility] Albumin [Mass/Vol] 3.9 g/dL Normal 3.9-4.9 [facility] ALP [Catalytic activity/Vol] 130 U/L High 38-113 [facility] ALT [Catalytic activity/Vol] 80 U/L High 10-54 [facility] AST [Catalytic activity/Vol] 34 U/L Normal 14-40 [facility] Bilirubin [Mass/Vol] 1.9 mg/dL High 0.2-1.3 [facility] Bilirubin,Conjugate d 1.2 mg/dL High <0.2 [facility] Protein [Mass/Vol] 5.7 g/dL Low 6.3-8.0 [facility] LDon 07-15-2020 LD 365 U/L High 135-225 [facility] Comment on above: Performed By: #### L D6 ####[facility] [address] [place], [place] [phone] LD 357 U/L High 135-225 [facility] Comment on above: Performed By: #### L D6 ####[facility] [address] [place], [place] [phone] NURSING PROGon 07-15-2020 NURSING PROG HNO ID: [id number] Author: Vianey SorensonRn) HÉCTOR Salinas Service: ? Author Type: Registered Nurse Type: Nursing Progress Note Filed: 07/15/2020 4:34 PM Note Text: Nursing Progress Note Patient Name: Alejandro Killian [id number] Daily Note:patient left floor by wheelchair in stable condition accompanied by transport at 1632 today. This note was completed by: Vianey Salinas RN [facility] NURSING [facility] O ID: [id number] Author: Vianey Brito) HÉCTOR Salinas Service: ? Author Type: Registered Nurse Type: Nursing Progress Note Filed: 07/15/2020 4:19 PM Note Text: Nursing Progress Note Patient Name: Alejandro Killian Patient Location: [facility]3ST-S08/[place]-2OP-E23-1 Daily Note:discharge orders received. Patient is to receive HHC for his left arm PICC line care and flushing with NSS once daily. Patient given discharge instructions and he verbalized an understanding of these. New prescriptions ready to be picked up his home pharmacy. Transport called for the discharge wheelchair. This note was completed by: Vianey Salinas RN [facility] NURSING [facility] HNO ID: [id number] Author: Vianey Salinas RN Service: ? Author Type: Registered Nurse Type: Nursing Progress Note Filed: 07/15/2020 10:02 AM Note Text: Nursing Progress Note Patient Name: Alejandro Killian Patient Location: -3ST-S08/FR-5TE-G04-1 Daily Note:patient currently denies any pain, discomfort, [...] note was completed by: Vianey Salinas RN [facility] PROGRESSon 07-15-2020 PROGRESS HNO ID: [id number] Author: Claudia Arguelles Service: Hematology/Oncology Author Type: Physician Director University Type: Progress Notes Filed: 07/15/2020 1:13 PM Note Text: Attestation signed by Ceferino Atkins at 07/17/2020 8:25 PM Attending Note: Mckinney findings confirmed. Patient examined. Discussed with the physician studio assistant and the patient. Plan as outlined. 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 Ackerman, and discussed. 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 Path was sent out for special consult - per [place], results in. Will get path sent to [facility] for second review - Bmbx negative for [...] to go home with close follow-up in [place]. Will need Mediport placed in [place]. Will go home with PICC line for [...] daily. He should follow-up with oncologist in [place]. Dr. Atkins will call to discuss case. No follow-up here needed He will go home with PICC line - will need Mediport in future We will get Path sent to [facility] for second opinion - patient signed consent Plan of care as above. Thank you for allowing us to participate in the care of this patient. Will sign off. Please don't hesitate to call us with any further questions. Medication and Non-Pharmacologic VTE Prophylaxis/Anticoagulants 07/09/202114 pneumatic compression stockings ([place], [place]) 07/09/202114 activity - mobilize patient ([place]) SIGNATURE: Claudia Arguelles PATIENT NAME: Alejandro Killian DATE: July 15, 2020 TIME: 1:10 PM PAGER/CONTACT #: [phone] [facility] PROGRESS HNO ID: [id number] Author: Sharon Guzman Service: General Internal Medicine [...] of care discussed with Dr. Thomas Lebron, MAT MACHINE OPERATOR.WARP TYING MACHINE TENDER July 15, 2020 11:24 AM ?Attending: Reviewed, discussed with WARP TYING MACHINE TENDER. Meds, notes, orders reviewed. Agree with mckinney history, findings and plan. Discussed with consultants. Sharon Guzman MD Normal [facility] Renal Function Panelon 07-15 Anion gap [Moles/Vol] 8 mmol/L Low 9-18 [facility] Calcium [Mass/Vol] 8.8 mg/dL Normal 8.5-10.2 [facility] Chloride [Moles/Vol] 104 mmol/L Normal 97-105 [facility] CO2 [Moles/Vol] 26 mmol/L Normal 22-33 [facility] Creatinine [Mass/Vol] 0.70 mg/dL Low 0.73-1.22 [facility] eGFR- Amer. >60 Normal [facility] GFR/1.73 sq M predicted among non-blacks MDRD (S/P/Bld) [Vol rate/Area] mL/min/{1.73_m2} Normal [facility] Comment on above: Result Comment: eGFR [...] GFR. Glucose [Mass/Vol] 117 mg/dL High 74-99 [facility] Phosphate [Mass/Vol] 3.2 mg/dL Normal 2.7-4.8 [facility] Potassium [Moles/Vol] 3.8 mmol/L Normal 3.7-5.1 [facility] Sodium [Moles/Vol] 138 mmol/L Normal 136-144 [facility] Urea nitrogen [Mass/Vol] 14 mg/dL Normal 9-24 [facility] Albumin [Mass/Vol] 3.8 g/dL Low 3.9-4.9 [facility] Comment on above: Performed By: #### L D6 ####[facility] [address] [place], [place] [phone] Anion gap [Moles/Vol] 11 mmol/L Normal 9-18 [facility] Comment on above: Performed By: #### L D6 ####[facility] [address] [place], [place] [phone] Calcium [Mass/Vol] 8.8 mg/dL Normal 8.5-10.2 [facility] Comment on above: Performed By: #### L D6 ####[facility] [address] [place], [place] [phone] Chloride [Moles/Vol] 104 mmol/L Normal 97-105 [facility] Comment on above: Performed By: #### L D6 ####[place] [id number] [place], [place] [phone] CO2 [Moles/Vol] 25 mmol/L Normal 22-33 [facility] Comment on above: Performed By: #### L D6 ####[place] [address] [place], [place] [phone] Creatinine [Mass/Vol] 0.80 mg/dL Normal 0.73-1.22 [facility] Comment on above: Performed By: #### L D6 ####[place] [address] [place], [place] [phone] eGFR- Amer. >60 Normal [facility] Comment on above: Performed By: #### L D6 ####[place] [address] [place], [place] [phone] GFR/1.73 sq M predicted among non-blacks MDRD (S/P/Bld) [Vol rate/Area] mL/min/{1.73_m2} Normal [facility] Comment on above: Result Comment: eGFR [...] actual GFR. Performed By: #### L D6 ####[facility] [place], [place] [phone] Glucose [Mass/Vol] 123 mg/dL High 74-99 [facility] Comment on above: Performed By: #### L D6 ####[place] [address] [place], [place] [phone] Phosphate [Mass/Vol] 3.1 mg/dL Normal 2.7-4.8 [facility] Comment on above: Performed By: #### L D6 ####[address] [phone] Potassium [Moles/Vol] 4.0 mmol/L Normal 3.7-5.1 [facility] Comment on above: Performed By: #### L D6 ####[address] [phone] Sodium [Moles/Vol] 140 mmol/L Normal 136-144 [facility] Comment on above: Performed By: #### L D6 ####[address] [phone] Urea nitrogen [Mass/Vol] 14 mg/dL Normal 9-24 [facility] Comment on above: Performed By: #### L D6 ####[address] [phone] Uric Acidon 07-15-2020 Urate [Mass/Vol] 2.1 mg/dL Low 4.0-8.1 [facility] Comment on above: Performed By: #### L D6 ####[address] [phone] Urate [Mass/Vol] 2.1 mg/dL Low 4.0-8.1 [facility] Comment on above: Performed By: #### L D6 ####[facility] [place] [address] [phone] Basic Metabolic Panlon 07-14 Anion gap [Moles/Vol] 8 mmol/L Low 9-18 [facility] Calcium [Mass/Vol] 9.3 mg/dL Normal 8.5-10.2 [facility] Chloride [Moles/Vol] 102 mmol/L Normal 97-105 [facility] CO2 [Moles/Vol] 28 mmol/L Normal 22-33 [facility] Creatinine [Mass/Vol] 0.76 mg/dL Normal 0.73-1.22 [facility] eGFR- Amer. >60 Normal [facility] GFR/1.73 sq M predicted among non-blacks MDRD (S/P/Bld) [Vol rate/Area] mL/min/{1.73_m2} Normal [facility] Comment on above: Result Comment: eGFR [...] GFR. Glucose [Mass/Vol] 90 mg/dL Normal 74-99 [facility] Potassium [Moles/Vol] 3.2 mmol/L Low 3.7-5.1 [facility] Sodium [Moles/Vol] 138 mmol/L Normal 136-144 [facility] Urea nitrogen [Mass/Vol] 14 mg/dL Normal 9-24 [facility] CBC and Differentialon 07-14 Abs Baso 0.04 k/uL Normal <0.11 [facility] Abs Creek 0.76 k/uL Normal <0.87 [facility] Abs Neut 7.15 k/uL Normal 1.45-7.50 [facility] Absolute nRBC <0.01 Normal <0.01 [facility] Basophils/100 WBC (Bld) 0.4 % Normal [facility] DTYPE Auto Diff Normal [facility] Eosinophils (Bld) [#/Vol] 0.13 10*3/uL Normal <0.46 [facility] Eosinophils/100 WBC (Bld) 1.2 % Normal [facility] Erythrocyte distribution width (RBC) [Ratio] 14.0 % Normal 11.5-15.0 [facility] Hematocrit (Bld) [Volume fraction] 36.1 % Low 39.0-51.0 [facility] Hemoglobin (Bld) [Mass/Vol] 12.1 g/dL Low 13.0-17.0 [facility] Lymphocytes (Bld) [#/Vol] 2.38 10*3/uL Normal 1.00-4.00 [facility] Lymphocytes/100 WBC (Bld) 22.8 % Normal [facility] MCH (RBC) [Entitic mass] 31.4 pG Normal 26.0-34.0 [facility] MCHC (RBC) [Mass/Vol] 33.5 g/dL Normal 30.5-36.0 [facility] MCV (RBC) [Entitic vol] 93.8 fL Normal 80.0-100.0 [facility] Monocytes/100 WBC (Bld) 7.3 % Normal [facility] Neutrophils/100 WBC (Bld) 68.3 % Normal [facility] NRBCs 0.0 /100 WBC Normal 0 [facility] Platelet mean volume (Bld) [Entitic vol] 11.6 fL Normal 9.0-12.7 [facility] Platelets (Bld) [#/Vol] 240 10*3/uL Normal 150-400 [facility] RBC (Bld) [#/Vol] 3.85 10*6/uL Low 4.20-6.00 [facility] WBC (Bld) [#/Vol] 10.46 10*3/uL Normal 3.70-11.00 [facility] CNCNPATEDon 07-14-2020 CNCNPATED Education ([facility]) ALEJANDRO KILLIAN ([id number]) 1955 M Date Time Provider Department 07/14/20 10:30 AM RESTAURANT ATTENDANT [facility] Reason for Visit: CHEMOTHERAPY EDUCATION [Other] Progress Notes: Freddy Ohara Pharmacist 07/14/2020 2:05 PM Signed ONCOLOGY PATIENT EDUCATION NOTE TOPIC: Chemotherapy Education: R-CHOP (rituximab, cyclophosphamide, doxorubicin, vincristine, an prednisone) for treatment of NHL. Patient educated while an inpatient at [facility]. READINESS TO LEARN: COGNITIVE ABILITY: Alert [...] Encounter Status:Closed by LINK (PHARMACIST)FREDDY on 07/14/20 [facility] CONSULT PROGon 07-14-2020 CONSULT PROG HNO ID: [id number] Author: Izzy Pearson Service: Gastroenterology Author Type: Nurse Practitioner Type: Consult Progress Note Filed: 07/14/2020 1:09 PM Note Text: Attempted to see patient; another provider at bedside Epic reviewed HCV quant RNA negative LFTs continue to improve daily Heme/Onc changed steroids from IV to PO GI will sign off. 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 He is up walking in the hallways this morning. Pain remains controlled well. REVIEW OF SYSTEMS Modified ESAS ([place] Symptom Assessment Scale): Information Provided By: Patient [...] with: Patient and RN SIGNATURE: Dory Argueta APRN.WARP TYING MACHINE TENDER PAGER/CONTACT #: [phone] Normal [facility] Hepatic Functn Panelon 07-14 Albumin [Mass/Vol] 3.9 g/dL Normal 3.9-4.9 [facility] ALP [Catalytic activity/Vol] 148 U/L High 38-113 [facility] ALT [Catalytic activity/Vol] 86 U/L High 10-54 [facility] AST [Catalytic activity/Vol] 30 U/L Normal 14-40 [facility] Bilirubin [Mass/Vol] 2.1 mg/dL High 0.2-1.3 [facility] Bilirubin,Conjugate d 1.4 mg/dL High <0.2 [facility] Protein [Mass/Vol] 5.7 g/dL Low 6.3-8.0 [facility] NURSING PROGon 07-14-2020 NURSING PROG HNO ID: [id number] Author: Fidencio (Rn) HÉCTOR Null Service: ? Author Type: Registered Nurse Type: Nursing Progress Note Filed: 07/14/2020 9:11 PM Note Text: Nursing Progress Note Patient Name: Alejandro Killian Patient Location: [place] [address]/EF-[id number]-[id number]- Daily Note: 1920: Assumed care of patient [...] note was completed by: FIDENCIO NULL RN [facility] NURSING PROG HNO ID: [id number] Author: Luzma SorensonRn) HÉCTOR De Service: Nursing Author Type: Registered Nurse Type: Nursing Progress Note Filed: 07/14/2020 5:04 PM Note Text: Nursing Progress Note Patient Name: Alejandro Killian Patient Location: [place] [address] [address] Daily Note: 1011 patient awake resting in [...] Held rituximab. Call and spoke with damion [employer] with [facility], informed her, she will discuss with dr atkins and call me back. Ok to keep rituximab on hold until she calls me back. 1459 per damion, [employer]- administer solucortef, benadryl, and pepcid (will order), [...] note was completed by: Luzma De RN [facility] NURSING PROG HNO ID: [id number] Author: Ashley SorensonRn) HÉCTOR Roque Service: Nursing Author Type: Registered Nurse Type: Nursing Progress Note Filed: 07/14/2020 12:06 AM Note Text: Nursing Progress Note Patient Name: Alejandro Killian Patient Location: [place] [address]/SN-6UC-U44-1 2330 Assumed care of pt. Pt awake, [...] note was completed by: Ashley Roque RN [facility] PROGRESSon 07-14-2020 PROGRESS HNO ID: [id number] Author: Freddy Ohara (Pharmacist) Service: ? Author Type: Pharmacist Type: Progress Notes Filed: 07/14/2020 2:05 PM Note Text: ONCOLOGY PATIENT EDUCATION NOTE TOPIC: Chemotherapy Education: R-CHOP (rituximab, cyclophosphamide, doxorubicin, vincristine, an prednisone) for treatment of NHL. Patient educated while an inpatient at [facility]. READINESS TO LEARN: COGNITIVE ABILITY: Alert [...] minutes REFERRAL (RECOMMENDATION): N/A Memo Etienne Normal [facility] PROGRESS HNO ID: [id number] Author: Ceferino Atkins Service: Hematology/Oncology Author Type: Physician Type: Progress Notes Filed: 07/14/2020 6:45 PM Note Text: SERVICE DATE: 07/14/2020 SERVICE TIME: 10:20 AM HEMATOLOGY / ONCOLOGY After 3pm, please page the on-call [phone] Subjective INTERVAL HPI: Alejandro is doing well today, ready for chemotherapy. Eating breakfast. No abdominal pain. No nausea or vomiting. Has support from friends regarding transportation. He does drive. Would prefer to get care in [place], closer to home REVIEW OF SYSTEMS: See [...] 1714 Peripherally Inserted (PICC) Left Arm 4.0 Dutch 3 days DATA: Diagnostic tests reviewed for today's visit: Most recent labs and imaging [facility] 07/14/2020: IMPRESSION: Minimal to no intrahepatic biliary ductal dilation compared to the prior CT. Again seen hepatic hilar/periportal soft tissue mass/lymphoma. Gallbladder sludge. 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 Ackerman, and discussed. 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 Path was sent out for special consult - awaiting final results. Should be finalized today, will get results faxed - Once results are back, we will need to get path/bx sent to [facility] for second review - Bmbx pending - [...] go home tomorrow with close follow-up in [place] if he is doing well. Will need Mediport placed in [place]. Will go home with PICC line for [...] Non-Pharmacologic VTE Prophylaxis/Anticoagulants 07/09/202114 pneumatic compression stockings ([place]) 07/09/202114 activity - mobilize patient ([place], [place]) SIGNATURE: Claudia Arguelles PATIENT NAME: Alejandro Killian DATE: July 14, 2020 TIME: 10:20 AM PAGER/CONTACT #: [phone] Attending Note: Mckinney findings confirmed. Patient examined. Discussed with the physician studio assistant and the patient. Preliminary pathology result [...] treatment. Plan as outlined. Ceferino Atkins MD [facility] PROGRESS HNO ID: [id number] Author: Sharon Guzman Service: General Internal Medicine [...] of care discussed with Dr. Thomas Lebron, MAT MACHINE OPERATOR.WARP TYING MACHINE TENDER July 14, 2020 3:07 PM Attending: Reviewed, discussed with WARP TYING MACHINE TENDER. Meds, notes, orders reviewed. Agree with mckinney history, findings and plan. Discussed with consultants. Sharon Guzman MD [facility] PROGRESS HNO ID: [id number] Author: Jessenia Sanabria Service: Infectious Disease Author Type: Physician Type: Progress Notes Filed: 07/14/2020 8:02 AM Note Text: Chart reviewed HCV RNA not detected No indication for any HCV therapy ID will sign off Reconsult PRN Jessenia Sanabria MD [phone] Normal [facility] Renal Function Panelon 07-14 Albumin [Mass/Vol] 3.8 g/dL Low 3.9-4.9 [facility] Anion gap [Moles/Vol] 11 mmol/L Normal 9-18 [facility] Calcium [Mass/Vol] 8.7 mg/dL Normal 8.5-10.2 [facility] Chloride [Moles/Vol] 105 mmol/L Normal 97-105 [facility] CO2 [Moles/Vol] 25 mmol/L Normal 22-33 [facility] Creatinine [Mass/Vol] 0.72 mg/dL Low 0.73-1.22 [facility] eGFR- Amer. >60 Normal [facility] GFR/1.73 sq M predicted among non-blacks MDRD (S/P/Bld) [Vol rate/Area] mL/min/{1.73_m2} Normal [facility] Comment on above: Result Comment: eGFR [...] GFR. Glucose [Mass/Vol] 151 mg/dL High 74-99 [facility] Phosphate [Mass/Vol] 3.3 mg/dL Normal 2.7-4.8 [facility] Potassium [Moles/Vol] 3.5 mmol/L Low 3.7-5.1 [facility] Sodium [Moles/Vol] 141 mmol/L Normal 136-144 [facility] Urea nitrogen [Mass/Vol] 13 mg/dL Normal 9-24 [facility] Uric Acidon 07-14-2020 Urate [Mass/Vol] 2.2 mg/dL Low 4.0-8.1 [facility] Urate [Mass/Vol] 2.5 mg/dL Low 4.0-8.1 [facility] Basic Metabolic Panlon 07-13 Anion gap [Moles/Vol] 13 mmol/L Normal 9-18 [facility] Calcium [Mass/Vol] 9.7 mg/dL Normal 8.5-10.2 [facility] Chloride [Moles/Vol] 105 mmol/L Normal 97-105 [facility] CO2 [Moles/Vol] 27 mmol/L Normal 22-33 [facility] Creatinine [Mass/Vol] 0.73 mg/dL Normal 0.73-1.22 [facility] eGFR- Amer. >60 Normal [facility] GFR/1.73 sq M predicted among non-blacks MDRD (S/P/Bld) [Vol rate/Area] mL/min/{1.73_m2} Normal [facility] Comment on above: Result Comment: eGFR [...] GFR. Glucose [Mass/Vol] 126 mg/dL High 74-99 [facility] Potassium [Moles/Vol] 4.1 mmol/L Normal 3.7-5.1 [facility] Sodium [Moles/Vol] 145 mmol/L High 136-144 [facility] Urea nitrogen [Mass/Vol] 15 mg/dL Normal 9-24 [facility] CASE MANAGEMon 07-13-2020 CASE MANAGEM HNO ID: [id number] Author: Renu (Rn) HÉCTOR Gan Service: Case [...] 13, 2020 TIME: 1:22 PM PAGER/CONTACT #: [phone] Normal [facility] CBC and Differentialon 07-13 Abs Baso 0.04 k/uL Normal <0.11 [facility] Abs Creek 0.75 k/uL Normal <0.87 [facility] Abs Neut 7.81 k/uL High 1.45-7.50 [facility] Absolute nRBC <0.01 Normal <0.01 [facility] Basophils/100 WBC (Bld) 0.4 % Normal [facility] DTYPE Auto Diff Normal [facility] Eosinophils (Bld) [#/Vol] 0.07 10*3/uL Normal <0.46 [facility] Eosinophils/100 WBC (Bld) 0.7 % Normal [facility] Erythrocyte distribution width (RBC) [Ratio] 14.2 % Normal 11.5-15.0 [facility] Hematocrit (Bld) [Volume fraction] 35.6 % Low 39.0-51.0 [facility] Hemoglobin (Bld) [Mass/Vol] 11.9 g/dL Low 13.0-17.0 [facility] Lymphocytes (Bld) [#/Vol] 2.08 10*3/uL Normal 1.00-4.00 [facility] Lymphocytes/100 WBC (Bld) 19.3 % Normal [facility] MCH (RBC) [Entitic mass] 31.5 pG Normal 26.0-34.0 [facility] MCHC (RBC) [Mass/Vol] 33.4 g/dL Normal 30.5-36.0 [facility] MCV (RBC) [Entitic vol] 94.2 fL Normal 80.0-100.0 [facility] Monocytes/100 WBC (Bld) 7.0 % Normal [facility] Neutrophils/100 WBC (Bld) 72.6 % Normal [facility] NRBCs 0.0 /100 WBC Normal 0 [facility] Platelet mean volume (Bld) [Entitic vol] 11.9 fL Normal 9.0-12.7 [facility] Platelets (Bld) [#/Vol] 240 10*3/uL Normal 150-400 [facility] RBC (Bld) [#/Vol] 3.78 10*6/uL Low 4.20-6.00 [facility] WBC (Bld) [#/Vol] 10.75 10*3/uL Normal 3.70-11.00 [facility] CONSULT PROGon 07-13-2020 CONSULT PROG HNO ID: [id number] Author: Swati Zaldivar Service: Infectious Disease Author [...] load Swati Zaldivar, DO [facility] Contact#: [phone] [facility] CONSULT PROG HNO ID: [id number] Author: Izzy Pearson Service: Gastroenterology Author Type: [...] Therapy: Room Air PHYSICAL EXAM: GENERAL: in [facility] SKIN: Skin warm, dry, slight jaundiced NEURO: [...] TBILI 2.5* 2.9* 4.4* SIGNATURE: Izzy Pearson APRN.WARP TYING MACHINE TENDER MOBILE: [phone] DATE: July 13, 2020 TIME: 10:40 AM Normal [facility] CONSULT PROG HNO ID: [id number] Author: Dory Argueta Service: Palliative Care Author Type: Nurse Practitioner Type: Consult Progress Note Filed: 07/13/2020 12:16 PM Note Text: PALLIATIVE MEDICINE CONSULT PROGRESS NOTE To contact the [place] palliative medicine service from 5p - 8a on weekdays and anytime during the weekend, please page [phone] SERVICE DATE: 07/13/2020 PATIENT NAME: Alejandro Killian Subjective Primary Site of Disease/Medical Illness: Probable aggressive B cell Lymphoma Pertinent Medical History:h/o prostate cancer, COPD, Renal Cyst, BPH INTERVAL HPI: reports feeling much better this morning. He rates pain at a 0 out of 10. He reports his appetite is well and his had a bowel movement. REVIEW OF SYSTEMS Modified ESAS ([place] Symptom Assessment Scale): Information Provided By: Patient [...] with: Patient and RN SIGNATURE: Dory Argueta APRN.WARP TYING MACHINE TENDER PAGER/CONTACT #: [phone] Normal [facility] Hepatic Functn Panelon 07-13 Albumin [Mass/Vol] 3.9 g/dL Normal 3.9-4.9 [facility] ALP [Catalytic activity/Vol] 163 U/L High 38-113 [facility] ALT [Catalytic activity/Vol] 101 U/L High 10-54 [facility] AST [Catalytic activity/Vol] 32 U/L Normal 14-40 [facility] Bilirubin [Mass/Vol] 2.5 mg/dL High 0.2-1.3 [facility] Bilirubin,Conjugate d 1.6 mg/dL High <0.2 [facility] Protein [Mass/Vol] 6.1 g/dL Low 6.3-8.0 [facility] NURSING PROGon 07-13-2020 NURSING PROG HNO ID: [id number] Author: Samia (Rn) HÉCTOR Orellana Service: ? Author Type: Registered Nurse Type: Nursing Progress Note Filed: 07/13/2020 9:46 PM Note Text: Nursing Progress Note Patient Name: Alejandro Killian Patient Location: [place] [address] [address] Daily Note:Assumed care of pt. A/ox3. Pt denies any pain/needs @ this time. Call light/phone within reach. Will continue to monitor. This note was completed by: Samia Orellana RN [facility] NURSING PROG HNO ID: [id number] Author: Roas SorensonRn) HÉCTOR Gomez Service: Nursing Author Type: Registered Nurse Type: Nursing Progress Note Filed: 07/13/2020 6:18 PM Note Text: Nursing Progress Note Patient Name: Alejandro Killian Patient Location: -3ST-S08/OQ-[id number] Daily Note: 1225 page to ONC regarding patient asking if nystatin could be discontinued 1817 prn oxycodone given for pain This note was completed by: Rosa Gomez RN [facility] NURSING PROG HNO ID: [id number] Author: Janie SorensonRn) HÉCTOR Vega Service: ? Author Type: Registered Nurse Type: Nursing Progress Note Filed: 07/13/2020 5:09 AM Note Text: Nursing Progress Note Patient Name: Alejandro Killian Patient Location: -3ST-S08/WA-1HN-V16-1 Daily Note: 1910 report received. Pt resting in bed, denies any needs at this time, call light within reach IVF infusing @100ml/hr 0430 BP 184/88 . Paged H/O . Enalaprilat ordered This note was completed by: Janie Vega RN [facility] PROGRESSon 07-13-2020 PROGRESS HNO ID: [id number] Author: Claudia Arguelles Service: Hematology/Oncology Author Type: Physician Director University Type: Progress Notes Filed: 07/13/2020 11:45 AM Note Text: SERVICE DATE: 07/13/2020 SERVICE TIME: 11:45 AM HEMATOLOGY / ONCOLOGY After 3pm, please page the on-call [phone] Subjective INTERVAL HPI: REVIEW OF SYSTEMS: See [...] 1714 Peripherally Inserted (PICC) Left Arm 4.0 Dutch 2 days DATA: Diagnostic tests reviewed for [...] - CT guided bx LN portahepatic at [facility] -- called pathology ([phone]), Dr. Ackerman, and discussed. 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 Path was sent out for special consult - awaiting final results. - Once results are back, we will need to get path/bx sent to [facility] for second review - Bmbx pending - [...] Non-Pharmacologic VTE Prophylaxis/Anticoagulants 07/09/202114 pneumatic compression stockings ([place], [place]) 07/09/202114 activity - mobilize patient ([place]) SIGNATURE: Claudia Arguelles PATIENT NAME: Alejandro Killian DATE: July 13, 2020 TIME: 11:45 AM PAGER/CONTACT #: [phone] [facility] PROGRESS HNO ID: [id number] Author: Sharon Guzman Service: General Internal Medicine [...] of care discussed with Dr. Thomas Lebron, MAT MACHINE OPERATOR.WARP TYING MACHINE TENDER July 13, 2020 3:33 PM Attending: Reviewed, discussed with WARP TYING MACHINE TENDER. Meds, notes, orders reviewed. Agree with mckinney history, findings and plan. Discussed with consultants. Sharon Guzman MD Normal [facility] Renal Function Panelon 07-13 Anion gap [Moles/Vol] 11 mmol/L Normal 9-18 [facility] Calcium [Mass/Vol] 7.8 mg/dL Low 8.5-10.2 [facility] Chloride [Moles/Vol] 102 mmol/L Normal 97-105 [facility] CO2 [Moles/Vol] 27 mmol/L Normal 22-33 [facility] Creatinine [Mass/Vol] 0.67 mg/dL Low 0.73-1.22 [facility] eGFR- Amer. >60 Normal [facility] GFR/1.73 sq M predicted among non-blacks MDRD (S/P/Bld) [Vol rate/Area] mL/min/{1.73_m2} Normal [facility] Comment on above: Result Comment: eGFR [...] GFR. Glucose [Mass/Vol] 91 mg/dL Normal 74-99 [facility] Phosphate [Mass/Vol] 2.9 mg/dL Normal 2.7-4.8 [facility] Potassium [Moles/Vol] 4.6 mmol/L Normal 3.7-5.1 [facility] Sodium [Moles/Vol] 140 mmol/L Normal 136-144 [facility] Urea nitrogen [Mass/Vol] 12 mg/dL Normal 9-24 [facility] US ABD RIGHT UPPER QUADRANTo n [...] Jul 13 2020 10:44AM EST [id number] Normal [facility] Uric Acidon 07-13-2020 Urate [Mass/Vol] 2.4 mg/dL Low 4.0-8.1 [facility] CBC and Differentialon 07-12 Abs Baso 0.04 k/uL Normal <0.11 [facility] Abs Creek 0.69 k/uL Normal <0.87 [facility] Abs Neut 8.14 k/uL High 1.45-7.50 [facility] Absolute nRBC <0.01 Normal <0.01 [facility] Basophils/100 WBC (Bld) 0.4 % Normal [facility] DTYPE Auto Diff Normal [facility] Eosinophils (Bld) [#/Vol] 0.06 10*3/uL Normal <0.46 [facility] Eosinophils/100 WBC (Bld) 0.6 % Normal [facility] Erythrocyte distribution width (RBC) [Ratio] 14.4 % Normal 11.5-15.0 [facility] Hematocrit (Bld) [Volume fraction] 34.3 % Low 39.0-51.0 [facility] Hemoglobin (Bld) [Mass/Vol] 11.5 g/dL Low 13.0-17.0 [facility] Lymphocytes (Bld) [#/Vol] 1.93 10*3/uL Normal 1.00-4.00 [facility] Lymphocytes/100 WBC (Bld) 17.8 % Normal [facility] MCH (RBC) [Entitic mass] 31.7 pG Normal 26.0-34.0 [facility] MCHC (RBC) [Mass/Vol] 33.5 g/dL Normal 30.5-36.0 [facility] MCV (RBC) [Entitic vol] 94.5 fL Normal 80.0-100.0 [facility] Monocytes/100 WBC (Bld) 6.4 % Normal [facility] Neutrophils/100 WBC (Bld) 74.8 % Normal [facility] NRBCs 0.0 /100 WBC Normal 0 [facility] Platelet mean volume (Bld) [Entitic vol] 11.8 fL Normal 9.0-12.7 [facility] Platelets (Bld) [#/Vol] 233 10*3/uL Normal 150-400 [facility] RBC (Bld) [#/Vol] 3.63 10*6/uL Low 4.20-6.00 [facility] WBC (Bld) [#/Vol] 10.86 10*3/uL Normal 3.70-11.00 [facility] CONSULT PROGon 07-12-2020 CONSULT PROG HNO ID: [id number] Author: Ceferino Atkins Service: Hematology/Oncology Author Type: Physician Type: Consult Progress Note Filed: 07/12/2020 11:01 AM Note Text: CONSULT PROGRESS NOTES PATIENT NAME: Alejandro Killian ASSESSMENT AND PLAN 1. 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 Hepatitis C, treated with Epclusa x 12 [place] [address] Jenkins in [place] 4. History of prostate cancer ? 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 Ponce > [facility] improved significantly on steroids. [...] 220* TBILI 2.9* 4.4* 8.4* SIGNATURE: Noemy Floers APRN.WARP TYING MACHINE TENDER DATE: July 12, 2020 TIME: 10:04 AM Normal [facility] Comp Metabolic Panelon 07-12 Albumin [Mass/Vol] 3.8 g/dL Low 3.9-4.9 [facility] ALP [Catalytic activity/Vol] 178 U/L High 38-113 [facility] ALT [Catalytic activity/Vol] 123 U/L High 10-54 [facility] Anion gap [Moles/Vol] 8 mmol/L Low 9-18 [facility] AST [Catalytic activity/Vol] 43 U/L High 14-40 [facility] Bilirubin [Mass/Vol] 2.9 mg/dL High 0.2-1.3 [facility] Calcium [Mass/Vol] 9.2 mg/dL Normal 8.5-10.2 [facility] Chloride [Moles/Vol] 106 mmol/L High 97-105 [facility] CO2 [Moles/Vol] 26 mmol/L Normal 22-33 [facility] Creatinine [Mass/Vol] 0.62 mg/dL Low 0.73-1.22 [facility] eGFR- Amer. >60 Normal [facility] GFR/1.73 sq M predicted among non-blacks MDRD (S/P/Bld) [Vol rate/Area] mL/min/{1.73_m2} Normal [facility] Comment on above: Result Comment: eGFR [...] GFR. Glucose [Mass/Vol] 96 mg/dL Normal 74-99 [facility] Potassium [Moles/Vol] 3.6 mmol/L Low 3.7-5.1 [facility] Protein [Mass/Vol] 5.9 g/dL Low 6.3-8.0 [facility] Sodium [Moles/Vol] 140 mmol/L Normal 136-144 [facility] Urea nitrogen [Mass/Vol] 13 mg/dL Normal 9-24 [facility] Fibrinogenon 07-12-2020 Fibrinogen 271 mg/dL Normal 200-400 [facility] Magnesiumon 07-12-2020 Magnesium [Mass/Vol] 1.8 mg/dL Normal 1.7-2.3 [facility] NURSING PROGon 07-12-2020 NURSING PROG HNO ID: [id number] Author: Sarita (Rn) HÉCTOR Guzman Service: Nursing Author Type: Registered Nurse Type: Nursing Progress Note Filed: 07/12/2020 9:30 AM Note Text: Nursing Progress Note Patient Name: Alejandro Killian Patient Location: [place] [address]/[id number] Daily Note: 0855 Assessment as charted. Pt denies pain, nausea. States he just feels tired. Tolerated breakfast. Call light in reach. This note was completed by: Sarita Guzman RN [facility] NURSING PROG HNO ID: [id number] Author: Janie (Rn) HÉCTOR Vega Service: ? Author Type: Registered Nurse Type: Nursing Progress Note Filed: 07/12/2020 12:35 AM Note Text: Nursing Progress Note Patient Name: Alejandro Killian Patient Location: [place] [address]/AL-[id number]- Daily Note: 1910 report received. Pt resting in bed, denies any needs at this time. IVF infusing @ 100ml/hr This note was completed by: Janie Vega RN [facility] PROGRESSon 07-12-2020 PROGRESS HNO ID: [id number] Author: Mario Yanes Service: General Internal Medicine Author Type: Physician Type: Progress Notes Filed: 07/12/2020 9:59 PM Note Text: Internal Medicine Daily Progress Note Patient Name: Alejandro Killian Location: [place] [address] [address] [facility] Admission Date: 07/09/2020 6:40 PM Hospital Day: 3 Date of Service: July 12, 2020 Time of Service: 12:12 PM INTERVAL HISTORY: Alejandro Killian reports that he is doing ok; feels improved. No new symptoms. No new problems overnight. No acute issues per staff combat information center officer. VITALS: Temp (24hrs), Av.6 ?C (97.8 ?F), [...] with VKA drugs, such as warfarin, the [place] [employer] 2012 Guideline recommends [...] Chest 2012, 141:7S-47S Patric RA, et al. [facility] 2017, 70: 252-289 Recent Labs 07/12/20 [...] weeks in [address] Jenkins in [place] ID consult HCV Ab + HCV RNA - pending HTN ?Catapress prn Hypoalbuminemia Anemia Abd pain From lymphoma Pall Med consult Duragesic patch Oxycodone prn Fentanyl iv prn ? Continue rx SIGNATURE: Mario Yanes MD Normal [facility] Phosphoruson 07-12-2020 Phosphate [Mass/Vol] 2.8 mg/dL Normal 2.7-4.8 [facility] Protimeon 07-12-2020 PT Coag (PPP) [Time] 10.9 s Normal 9.7-13.0 [facility] PT Coag (PPP) [Time] 1.0 s Normal 0.9-1.3 [facility] Comment on above: Result Comment: Meredith min K Antagonist (VKA) Therapeutic Range: INR 2 to 3 (Target INR of 2.5) Note: For patients treated with VKA drugs, such as warfarin, the [place] [employer] 2012 Guideline recommends [...] 07-12-2020 Urate [Mass/Vol] 3.0 mg/dL Low 4.0-8.1 [facility] Basic Metabolic Panlon 07-11 Anion gap [Moles/Vol] 11 mmol/L Normal 9-18 [facility] Calcium [Mass/Vol] 9.3 mg/dL Normal 8.5-10.2 [facility] Chloride [Moles/Vol] 107 mmol/L High 97-105 [facility] CO2 [Moles/Vol] 23 mmol/L Normal 22-33 [facility] Creatinine [Mass/Vol] 0.71 mg/dL Low 0.73-1.22 [facility] eGFR- Amer. >60 Normal [facility] GFR/1.73 sq M predicted among non-blacks MDRD (S/P/Bld) [Vol rate/Area] mL/min/{1.73_m2} Normal [facility] Comment on above: Result Comment: eGFR [...] GFR. Glucose [Mass/Vol] 117 mg/dL High 74-99 [facility] Potassium [Moles/Vol] 4.4 mmol/L Normal 3.7-5.1 [facility] Sodium [Moles/Vol] 141 mmol/L Normal 136-144 [facility] Urea nitrogen [Mass/Vol] 13 mg/dL Normal 9-24 [facility] CBC and Differentialon 07-11 Abs Baso <0.03 Normal <0.11 [facility] Abs Creek 0.49 k/uL Normal <0.87 [facility] Abs Neut 6.27 k/uL Normal 1.45-7.50 [facility] Absolute nRBC <0.01 Normal <0.01 [facility] Basophils/100 WBC (Bld) 0.1 % Normal [facility] DTYPE Auto Diff Normal [facility] Eosinophils (Bld) [#/Vol] 10*3/uL Normal <0.46 [facility] Eosinophils/100 WBC (Bld) 0.1 % Normal [facility] Erythrocyte distribution width (RBC) [Ratio] 14.1 % Normal 11.5-15.0 [facility] Hematocrit (Bld) [Volume fraction] 34.8 % Low 39.0-51.0 [facility] Hemoglobin (Bld) [Mass/Vol] 11.7 g/dL Low 13.0-17.0 [facility] Lymphocytes (Bld) [#/Vol] 0.91 10*3/uL Low 1.00-4.00 [facility] Lymphocytes/100 WBC (Bld) 11.8 % Normal [facility] MCH (RBC) [Entitic mass] 31.5 pG Normal 26.0-34.0 [facility] MCHC (RBC) [Mass/Vol] 33.6 g/dL Normal 30.5-36.0 [facility] MCV (RBC) [Entitic vol] 93.8 fL Normal 80.0-100.0 [facility] Monocytes/100 WBC (Bld) 6.4 % Normal [facility] Neutrophils/100 WBC (Bld) 81.6 % Normal [facility] NRBCs 0.0 /100 WBC Normal 0 [facility] Platelet mean volume (Bld) [Entitic vol] 11.3 fL Normal 9.0-12.7 [facility] Platelets (Bld) [#/Vol] 212 10*3/uL Normal 150-400 [facility] RBC (Bld) [#/Vol] 3.71 10*6/uL Low 4.20-6.00 [facility] WBC (Bld) [#/Vol] 7.69 10*3/uL Normal 3.70-11.00 [facility] CONSULTon 07-11-2020 CONSULT HNO ID: [id number] Author: Swati Zaldivar Service: Infectious Disease Author [...] s/p treatment with Epclusa x12 weeks in [place] who presented with obstructive jaundice. Bilirubin is [...] Laterality Date - COLONOSCOP W/ OR W/O [facility] SPEC 02/15/16 Colonoscopy - PAST SURGICAL HISTORY OF appendectomy - PAST SURGICAL HISTORY OF tonsilectomy - PROSTATECTOMY, SIMPLE, BENIGN 01/03/12 prostate removed FAMILY HISTORY Problem Relation Age of Onset - Heart Father of [place] age 80 - Heart Paternal Grandmother - [...] follow Swati Zaldivar DO [facility] Contact#: [phone] [facility] CONSULT PROGon 07-11-2020 CONSULT PROG HNO ID: [id number] Author: Noemy Flores Service: Gastroenterology Author Type: [...] s/p treatment of HCV at OSH in [place], unsure if he cleared. --ID consult pending [...] DATE: July 11, 2020 TIME: 10:00 AM [facility] CONSULT PROG HNO ID: [id number] Author: Ceferino Atkins Service: Hematology/Oncology Author Type: Physician Type: Consult Progress Note Filed: 07/11/2020 9:59 AM Note Text: CONSULT PROGRESS NOTES PATIENT NAME: Alejandro Killian ASSESSMENT AND PLAN 1. 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 Hepatitis C, treated with Epclusa x 12 [place] [address] Jenkins in [place] 4. History of prostate cancer Bilirubin much [...] 4.4* 8.4* 9.8* SIGNATURE: Ceferino Atkins MD [facility] CONSULT PROG HNO ID: [id number] Author: Amie Stovall) Ponce Service: Palliative Care Author Type: Physician Director University Type: Consult Progress Note Filed: 07/11/2020 12:15 PM Note Text: PALLIATIVE MEDICINE CONSULT PROGRESS NOTE To contact the [place] palliative medicine service from 5p - 8a on weekdays and anytime during the weekend, please page [phone] PATIENT NAME: Alejandro Killian Subjective REASON FOR [...] bowels x 4 today. Mood is good. [place] good news from Onc: Bili coming down. [...] list reviewed REVIEW OF SYSTEMS: Modified ESAS ([place] Symptom Assessment Scale): Information Provided By: Patient [...] senna 8.6 mg BID - Bisacodyl 10mg [place] once daily prn - Magnesium hydroxide 1 [...] 07/11/2020. SIGNATURE: Amie Serra PA-C CONTACT #: [phone] TO SEND A PAGE: [phone] Normal [facility] Hepatic Functn Panelon 07-11 Albumin [Mass/Vol] 3.6 g/dL Low 3.9-4.9 [facility] ALP [Catalytic activity/Vol] 211 U/L High 38-113 [facility] ALT [Catalytic activity/Vol] 176 U/L High 10-54 [facility] AST [Catalytic activity/Vol] 83 U/L High 14-40 [facility] Bilirubin [Mass/Vol] 4.4 mg/dL High 0.2-1.3 [facility] Bilirubin,Conjugate d 3.2 mg/dL High <0.2 [facility] Protein [Mass/Vol] 5.6 g/dL Low 6.3-8.0 [facility] NURSING PROGon 07-11-2020 NURSING PROG HNO ID: [id number] Author: Amanda (Rn) HÉCTOR Johnson Service: ? Author Type: Registered Nurse Type: Nursing Progress Note Filed: 12/02/2020 11:46 AM Note Text: Nursing Progress Note Patient Name: Alejandro Killian Patient Location: [place] [address] Daily Note: Assumed care of patient. Pt is resting in bed. No This note was completed by: Amanda Johnson RN Normal [facility] PROGRESSon 07-11-2020 PROGRESS HNO ID: [id number] Author: Mario Yanes Service: General Internal Medicine Author Type: Physician Type: Progress Notes Filed: 07/11/2020 6:52 PM Note Text: Internal Medicine Daily Progress Note Patient Name: Alejandro Killian Location: [place] [address]/[address] [facility] Admission Date: 07/09/2020 6:40 PM Hospital Day: 2 + 1 Date of Service: July 11, 2020 Time of Service: 12:42 PM INTERVAL HISTORY: Alejandro Killian reports that he is feeling better today. He is glad that his bilirubin has decreased. No new c/o. No new problems overnight. No acute issues per staff combat information center officer. VITALS: Temp (24hrs), Av.7 ?C (98 ?F), [...] with VKA drugs, such as warfarin, the [place] [employer] 2012 Guideline recommends [...] weeks in [address] Jenkins in [place] ID consult HCV Ab + HCV RNA - pending HTN Catapress prn Hypoalbuminemia Anemia Abd pain From lymphoma Pall Med consult Duragesic patch Oxycodone prn Fentanyl iv prn Continue rx SIGNATURE: Mario Yanes MD [facility] PROGRESS HNO ID: [id number] Author: Interface Note Service: ? Author Type: ? Type: Progress Notes Filed: 07/11/2020 3:24 AM Note Text: Epic Scheduled Downtime: 07/11/2020 12:20:00 AM to 07/11/2020 3:09:00 AM [facility] Phosphoruson 07-11-2020 Phosphate [Mass/Vol] 3.5 mg/dL Normal 2.7-4.8 [facility] Uric Acidon 07-11-2020 Urate [Mass/Vol] 3.9 mg/dL Low 4.0-8.1 [facility] pHon 07-11-2020 pH (Bld) 6.0 [pH] Normal 5.0-8.0 [facility] ALLIED HEALTHon 07-10-2020 ALLIED HEALTH HNO ID: [id number] Author: Danny Chambers (Tech) Service: Radiology Author Type: Orthopedic Nurse Practitioner Type: Allied Health Filed: 07/10/2020 4:19 PM [...] DATE: July 10, 2020 TIME: 4:19 PM [facility] Bone Marrowon 07-10-2020 Bone Marrow Bone marrow results will be reported under the Surgical Pathology tab when testing is complete. [facility] Comment on above: Performed By: #### N CELESTE ALMONTE ####[facility] [place], [place] [phone] CASE MGT INIT ASSESon 2019 CASE MGT INIT ASSES HNO ID: [id number] Author: Renetta (Rn) HÉCTOR Garcia Service: Care Management Author Type: Registered Nurse Type: Care Mgt Initial Assessment Filed: 07/10/2020 12:03 PM Note Text: CARE MANAGEMENT: ASSESSMENT AND DISCHARGE PLAN SERVICE DATE: July 10, 2020 SERVICE TIME: 12:01 PM PRIMARY CARE PHYSICIAN: No primary care provider on file. Phone: None ADMISSION STATUS: Inpatient Needs Prior to Discharge: Procedure MEDICAL: [employer] PLUS Patient/Toppiece Cutter Stated Goals: To have reduction in symptoms Health Insurance: Comment([employer]) Health Issues Impacting Discharge Plan: Chronic Chronic: pain abd mass Last Discharge Date: 02/15/16 Is this Within the Past 30 days? Last discharge within 30 days: No Advance Directive: Current Advance Directive: None Product Manager [employer] Attempted to Assist with AD Completion: Yes [...] None Has the Patient Been in a Senior Living Facility in the Past 30 days?: No SOCIAL: Living Arrangements: Home Lives With: Partner Financial Resources: Retired Primary Contact: Extended Emergency Contact Information Primary Emergency Contact: Britney Hilliard Address: [facility] [address] [place] [address] Relation: Significant other Secondary Emergency Contact: Frances [...] Completely I feel financially burdened by my ett-yh-alkiya expenses for my prescription medication:: 0 - Disagree Completely Risk Score: 0 Patient is categorized as: Low risk < 2 Are you interested in bedside delivery of your medications? No Is Patient Psychosocially Complex?: No ASSESSMENT AND PLAN: Medical Needs: Medical Needs: Cancer - active treatment/follow up Psychosocial Needs: Psychosocial Needs: None FREEDOM OF CHOICE EXPLAINED: [place] of Choice Given: No Reason Not Given: Unable to complete with this assessment - revisit POTENTIAL TRANSITION PLANS To Be Determined Lives at home with significant other Britney. Has no advanced directives. He states he was independent at home. Will continue to follow for d/c needs. SIGNATURE: Renetta Garcia RN PATIENT NAME: Alejandro Killian DATE: July 10, 2020 TIME: 12:01 PM PAGER/CONTACT #: [phone] [facility] CBC and Differentialon 07-10 Abs Baso 0.08 k/uL Normal <0.11 [facility] Abs Creek 0.65 k/uL Normal <0.87 [facility] Abs Neut 4.36 k/uL Normal 1.45-7.50 [facility] Absolute nRBC <0.01 Normal <0.01 [facility] Basophils/100 WBC (Bld) 1.2 % Normal [facility] DTYPE Auto Diff Normal [facility] Eosinophils (Bld) [#/Vol] 0.31 10*3/uL Normal <0.46 [facility] Eosinophils/100 WBC (Bld) 4.8 % [facility] Erythrocyte distribution width (RBC) [Ratio] 13.9 % Normal 11.5-15.0 [facility] Hematocrit (Bld) [Volume fraction] 34.2 % Low 39.0-51.0 [facility] Hemoglobin (Bld) [Mass/Vol] 11.6 g/dL Low 13.0-17.0 [facility] Lymphocytes (Bld) [#/Vol] 1.04 10*3/uL Normal 1.00-4.00 [facility] Lymphocytes/100 WBC (Bld) 16.1 % Normal [facility] MCH (RBC) [Entitic mass] 31.7 pG Normal 26.0-34.0 [facility] MCHC (RBC) [Mass/Vol] 33.9 g/dL Normal 30.5-36.0 [facility] MCV (RBC) [Entitic vol] 93.4 fL Normal 80.0-100.0 [facility] Monocytes/100 WBC (Bld) 10.1 % Normal [facility] Neutrophils/100 WBC (Bld) 67.8 % Normal [facility] NRBCs 0.0 /100 WBC Normal 0 [facility] Platelet mean volume (Bld) [Entitic vol] 11.4 fL Normal 9.0-12.7 [facility] Platelets (Bld) [#/Vol] 187 10*3/uL Normal 150-400 [facility] RBC (Bld) [#/Vol] 3.66 10*6/uL Low 4.20-6.00 [facility] WBC (Bld) [#/Vol] 6.44 10*3/uL Normal 3.70-11.00 [facility] CONSULTon 07-10-2020 CONSULT HNO ID: [id number] Author: Dickson Rutledge Service: Hematology/Oncology Author Type: [...] pain and jaundice. He was evaluated at [facility] and discovered to have a large periportal, pancreatic mass causing bile duct obstruction. 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 Final pathology, cytogenetic and FISH studies are pending. In the interim, he was transferred to [facility] for consideration of ERCP or PTHC to relieve his biliary obstruction. He denies any fevers or chills. However he has been losing weight. No fevers chills or night sweats. Patient's review of systems, past medical and surgical history, Family and Social history, medications and allergies reviewed. Prostate Cancer, COPD, Hepatitis C. CT abdomen and pelvis from July 08, 2020 obtained at [facility] radiology revealed a 7.5 x 5.6 [...] to normalize with initial therapy, [facility]: -Complete outside pathology evaluation and obtain slides and blocks for review at [facility] -Start staging with CT scans and bone [...] ONCOLOGY After 3pm, please page the on-call [phone] SERVICE DATE: 07/10/2020 SERVICE TIME: 2:21 PM [...] multiple ER visits for abdominal pain at [place]. A CT abdomen was obtained and demonstrated a possible pancreatic mass vs enlarged LN and biliary obstruction. He had a CT guided portahepatic LN biopsy at [facility] last week and results pending per patient. [...] his last PSA was <1, per patient. [facility] - [phone] PAST MEDICAL HISTORY Diagnosis Date - COPD (chronic obstructive pulmonary disease) (HCC) Mild - Fistula - Prostate cancer (HCC) 12/2011 PAST SURGICAL HISTORY Procedure Laterality Date - COLONOSCOP W/ OR W/O [facility] SPEC 02/15/16 Colonoscopy - PAST SURGICAL HISTORY OF appendectomy - PAST SURGICAL HISTORY OF tonsilectomy - PROSTATECTOMY, SIMPLE, BENIGN 01/03/12 prostate removed FAMILY HISTORY Problem Relation Age of Onset - Heart Father of [place] age 80 - Heart Paternal Grandmother - [...] Abs Lymph 1.00 - 4.00 k/uL 1.04 Creek% % 10.1 Abs Creek <0.87 k/uL 0.65 Eosin% % 4.8 Abs Eosin <0.46 k/uL 0.31 Baso% % 1.2 Abs Baso <0.11 k/uL 0.08 Nucleated Reds 0 /100 WBC 0.0 Absolute nRBC <0.01 k/uL <0.01 Diff Type Auto Diff Color Yellow Dark Yellow (A) Clarity Clear Turbid (A) Glucose, Urine Negative mg/dL Negative Bilirubin, Urine Negative 2+ (A) Ketones, Urine Negative Negative Specific [place], Ur 1.005 - 1.030 1.018 Hemoglobin/Blood,Ur Negative [...] . >60 Imaging: Reviewed OUTSIDE CT in [facility]/EMR CT CAP and ECHO - pending Assessment AND Plan * 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) - Enlarged Portahepatic LNs - outside imaging - CT guided bx LN portahepatic at [facility] -- called pathology ([phone]), Dr. Ackerman, and discussed. 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 Path was sent out for special consult - Once results are back, we will need to get path/bx sent to [facility] for second review - Will obtain workup [...] July 10, 2020 TIME: 2:21 PM PAGER: [phone] After hours please page [place] @ [phone] Normal [facility] CONSULT HNO ID: [id number] Author: Evens Singh Service: Palliative Care Author Type: Physician Type: Consults Filed: 07/10/2020 5:07 PM Note Text: PALLIATIVE MEDICINE INITIAL CONSULT To contact the [place] palliative medicine service from 5p - 8a on weekdays and anytime during the weekend, please page [phone] SERVICE DATE: 07/10/2020 PATIENT NAME: Alejandro CAVANAUGHN: [id number] PALLIATIVE MEDICINE OUTPATIENT PROVIDER: No CURRENT ATTENDING [...] History obtained from previous encounters. Presented to [facility] on 07/07/2020 from [facility]. Patient was referred to ER by oncologist (Dr. Bravo) for jaundice. CT of abdomen showed progressive enlargement of epigastric mass as well as periportal mass with evidence of intrahepatic biliary ductal dilation more prominent of left hepatic ducts. Biopsied mass on 07/03/2020 then transferred to [facility] for further workup. GI consulted and recommended ERCP with stent placement. Did not have coverage at that time, so patient eventually came to [facility]. Patient waiting for [facility] with brushing. Palliative medicine consulted for pain management. On individual interview patient was agitated and confused. Patient stated that he was transferred here for a biopsy because [facility] did nothing for me. Stated that he has had 2-3 visits with pain management (Marcus Garces MD) for management of his abdominal pain. Stated that he was prescribed Percocet once every 4 hours. When he felt that was not adequate management he went back and was prescribed a Fentanyl patch in addition to the Percocet. Stated that at [facility] they changed his pain management to [...] the mass medically [facility]. Rated his pain 4-5/10 in the midepigastric [...] Laterality Date - COLONOSCOP W/ OR W/O [facility] SPEC 02/15/16 Colonoscopy - PAST SURGICAL HISTORY [...] Age of Onset - Heart Father of [place] age 80 - Heart Paternal Grandmother - Heart Paternal Grandfather Family History of Substance Misuse: not on file SOCIAL HISTORY not on file Drug Use: No Alcohol Use: Yes (drinks 1 drink per month) Tobacco Use: 0.5 packs/day, for 43 years. Types: Cigarettes REVIEW OF SYSTEMS Modified ESAS ([place] Symptom Assessment Scale): Information Provided By: Patient [...] senna 8.6 mg BID - Bisacodyl 10mg AK once daily prn - Magnesium hydroxide 1 [...] physical obtained and documented by Ashley Hernandez [facility], and I personally participated in all of the mckinney components. I have discussed the case and management of the patient's care with the student. The following comments revise or confirm relevant mckinney components. Note above has been edited by me. Furthermore, discussed oncology plans with Dr. Rutledge. Per Dr. Rutledge, patient plans to follow up with his oncologist in [place]. As he was being followed by pain management down there prior to admission, he will likely continue to follow with them. Palliative Medicine will continue to follow during this admission to assist with symptom management. NAME: Mali Singh MD PATIENT NAME: Alejandro Killian DATE: July 10, 2020 TIME: 5:02 PM PAGER/CONTACT #: [phone] [facility] CONSULT HNO ID: [id number] Author: Jaiden Ponce Service: Gastroenterology Author Type: [...] Laterality Date - COLONOSCOP W/ OR W/O [facility] SPEC 02/15/16 Colonoscopy - PAST SURGICAL HISTORY OF appendectomy - PAST SURGICAL HISTORY OF tonsilectomy - PROSTATECTOMY, SIMPLE, BENIGN 01/03/12 prostate removed FAMILY HISTORY: FAMILY HISTORY Problem Relation Age of Onset - Heart Father of [place] age 80 - Heart Paternal Grandmother - [...] DATE: July 10, 2020 TIME: 10:[address] [facility] [address] ABDOMEN W IVCONon CT ABDOMEN W IVCON * * *Final Report* * * DATE OF EXAM: Jul 10 2020 4:18PM [facility] 0533 - CT ABDOMEN W IVCON / [...] chest CT performed will be reported separately. Mailroom Supervisor (topogram) images: Unremarkable. IMPRESSION: Large central abdominal [...] on Jul 10 2020 5:17PM EST [id number] [facility] CT CHEST W IVCONon 0 CT CHEST W IVCON * * *Final Report* * * DATE OF EXAM: Jul 10 2020 4:18PM [facility] 0539 - CT CHEST W IVCON / [...] Jul 10 2020 6:06PM EST [id number] Normal [facility] Chromosome BMon 07-10-2020 Chromosome Analysis Duplicate request [facility] Comment on above: Result Comment: Acco unt Credited SUMEET 07/10/2020 AT 2233 Performed By: #### C HRBM ####[facility] [place], [place] [phone] Chromosome Analysis Sample was sent to [facility] performing laboratory. Please refer to order for miscellaneous sendout test for results. [facility] Comment on above: Result Comment: Acco unt Credited HROBY 11.18.20 1248 Performed By: #### C HRBM ####[facility] [place], [place] [phone] Comp Metabolic Panelon 07-10 Albumin [Mass/Vol] 3.6 g/dL Low 3.9-4.9 [facility] ALP [Catalytic activity/Vol] 220 U/L High 38-113 [facility] ALT [Catalytic activity/Vol] 182 U/L High 10-54 [facility] Anion gap [Moles/Vol] 15 mmol/L Normal 9-18 [facility] AST [Catalytic activity/Vol] 115 U/L High 14-40 [facility] Bilirubin [Mass/Vol] 8.4 mg/dL High 0.2-1.3 [facility] Calcium [Mass/Vol] 9.1 mg/dL Normal 8.5-10.2 [facility] Chloride [Moles/Vol] 98 mmol/L Normal 97-105 [facility] CO2 [Moles/Vol] 24 mmol/L Normal 22-33 [facility] Creatinine [Mass/Vol] 0.91 mg/dL Normal 0.73-1.22 [facility] eGFR- Amer. >60 Normal [facility] GFR/1.73 sq M predicted among non-blacks MDRD (S/P/Bld) [Vol rate/Area] mL/min/{1.73_m2} Normal [facility] Comment on above: Result Comment: eGFR [...] GFR. Glucose [Mass/Vol] 315 mg/dL High 74-99 [facility] Potassium [Moles/Vol] 2.5 mmol/L Low 3.7-5.1 [facility] Protein [Mass/Vol] 5.8 g/dL Low 6.3-8.0 [facility] Sodium [Moles/Vol] 137 mmol/L Normal 136-144 [facility] Urea nitrogen [Mass/Vol] 12 mg/dL Normal 9-24 [facility] Coronavirus 2019on 0 COVID 19 Result [employer] Negative Normal Negative for COVID19 (SARS CoV2) by PCR. [facility] Comment on above: Result Comment: This test was developed and its performance characteristics determined by [facility]'s [facility] [place]. This test has been authorized by FDA [...] 2019. Performed By: #### C OVID #### [facility] [employer] [address] [place], [place] [address] COVID 19 Source [employer] UPPER RESPIRATORY TR ACT SWAB Normal [facility] Comment on above: Performed By: #### C OVID #### [facility] [employer] [address] [place], [place] [address] DNA Ext Bn Marrow BCon 07-10 WBC (Bld) [#/Vol] (NOTE) Normal [facility] Comment on above: Result Comment: This specimen was received and successfully processed for future DNA purification should molecular testing be needed. Specimens will be available for 3 years from date of collection. To order testing on this specimen for [facility] patients, please place an [facility] order for DNA and RNA for Clinical Testing ([id number]). To order testing for patients outside of the [facility] system, please request DNA and RNA for Clinical Testing, order code [id number]. If additional paperwork is required for testing, please send completed forms via secure email to [employer] . Performed By: #### N CELESTE ALMONTE ####[facility] [address] [place], [place] [phone] Flow Cyto Hold Sampleon 06-13 Flow Cyto Hold Sample A bone marrow sample was received for potential flow cytometry studies. Following morphologic review of the bone marrow, flow cytometric studies will be ordered by the hematopathologist if testing is indicated. Please see the corresponding bone marrow surgical pathology report. Normal [facility] Comment on above: Result Comment: [id number] Performed By: #### N CELESTE ALMONTE ####[facility] [address] [place], [place] [phone] HISTORY PHYSICALon 0 HISTORY PHYSICAL HNO ID: [id number] Author: Mario Yanes Service: General Internal Medicine Author Type: Physician Type: HANDP Filed: 07/10/2020 10:19 PM Note Text: MEDICINE HISTORY AND PHYSICAL [facility] PATIENT NAME: Alejandro Killian Admission Date: 07/09/2020 SERVICE DATE: July 10, 2020 SERVICE TIME: 2:30 PM Patient Location: [facility]-[id number] Continuation of [facility] note. CHIEF COMPLAINT: Jaundice PRIMARY CARE PHYSICIAN: Berna Manning MD ([place], [place]) HISTORY OF PRESENT ILLNESS Alejandro Killian is a pleasant 65-year-old with newly-diagnosed, eoo-[id number] non-Hodgkin's lymphoma. He initially presented earlier this [...] Age of Onset - Heart Father of [place] age 80 - Heart Paternal Grandmother - [...] 07/09/2020 6.5 5.0 - 8.0 Final Specific [place], Ur Date Value Ref Range Status 07/09/2020 [...] Alejandro Killian is being brought into the [facility] for further evaluation and treatment of his medical issues. Further evaluations and/or treatments may be undertaken based on the clinical course. For full details of this hospitalization, please refer to the computerized medical records in the [facility] system. SIGNATURE: Mario Yanes MD DATE: July 10, 2020 TIME: 2:30 PM Normal [facility] HISTORY PHYSICAL HNO ID: [id number] Author: Sharon Guzman Service: General Internal Medicine [...] Age of Onset - Heart Father of [place] age 80 - Heart Paternal Grandmother - [...] of care discussed with Dr. Thomas Lebron, SHARAN.WARP TYING MACHINE TENDER July 10, 2020 11:21 AM Attending: Reviewed, discussed with WARP TYING MACHINE TENDER. Meds, notes, orders reviewed. Agree with mckinney history, findings and plan. Discussed with consultants. Sharon Guzman MD [facility] Hepatitis C RNAon 07-10-2020 Hepatitis C RNA HCV RNA not detected by PCR. [facility] Comment on above: Result Comment: Refe rence Range: Negative for HCV RNA The Linear Range of this assay is 15 IU/mL to 100,000,000 IU/mL. Performed By: #### H CQPCR ####[facility], [place] [phone] Hepatitis C RNA HCV RNA not detected by PCR. Normal [facility] Comment on above: Result Comment: Refe rence Range: Negative for HCV RNA The Linear Range of this assay is 15 IU/mL to 100,000,000 IU/mL. Performed By: #### L D6, HCQPCR, HREMOP ####[place] [address] [place], [place] [phone] Hepatitis Remote Panelon HBsAg Negative Normal Negative [facility] Comment on above: Performed By: #### L D6, HCQPCR, HREMOP ####[place] [address] [place], [place] [phone] Hep B Core Ab,Total Negative Normal Negative [facility] Comment on above: Performed By: #### L D6, HCQPCR, HREMOP ####[place] [address] [place], [place] [phone] Hepatitis C Ab IA Positive Critically abnormal Negative [facility] Comment on above: Result Comment: Conf irmation with Hepatitis C RNA has been ordered and charged. Performed By: #### L D6, HCQPCR, HREMOP ####[place] [address] [place], [place] [phone] HepB Surface Ab,Qual Negative Normal Negative [facility] Comment on above: Result Comment: NEGA TIVE Performed By: #### L D6, HCQPCR, HREMOP ####[place] [address] [place], [place] [phone] LDon 07-10-2020 LD 419 U/L High 135-225 [facility] Comment on above: Performed By: #### L D6, HCQPCR, HREMOP ####[place] [address] [place], [place] [phone] [facility] Send Out Teston 020 Test Chromosome Analysis, Hematologic Malignancy Normal [facility] Comment on above: Performed By: #### W ILD13 ####[facility] [address] [place], [place] [phone] Test Results View results in Scan burt Documents link when available. [facility] Comment on above: Performed By: #### W ILD13 ####[facility] [place], [place] [phone] NURSING PROGon 07-10-2020 NURSING PROG HNO ID: [id number] Author: Torri SorensonRn) HÉCTOR Lundberg Service: ? Author Type: Registered Nurse Type: Nursing Progress Note Filed: 07/11/2020 5:05 AM Note Text: Nursing Progress Note Patient Name: Alejandro Killian Patient Location: [place] [address] [address] Transfer Note: Patient transferred into room/unit 3ST [...] note was completed by: Torri Lundberg RN [facility] NURSING PROG HNO ID: [id number] Author: Adriana SorensonRn) HÉCTOR Medel Service: ? Author Type: Registered Nurse Type: Nursing Progress Note Filed: 07/10/2020 7:42 PM Note Text: Nursing Progress Note Patient Name: Alejandro Killian Patient Location: -[id number]-[id number] Daily Note: 0830 Resting in bed, AANDOx3, [...] note was completed by: Adriana Medel RN [facility] PROCEDUREon 07-10-2020 PROCEDURE HNO ID: [id number] Author: Megan SorensonRn) HÉCTOR Guzman Service: PICC Team Author Type: Registered Nurse Type: Procedures Filed: 07/10/2020 5:06 PM Note Text: PICC NURSE INSERTION NOTE DATE OF PROCEDURE: July 10, 2020 TIME OF PROCEDURE: 1655 ORDERING PHYSICIAN: Claudia Arguelles INFORMED CONSENT: Obtained per hospital policy. INDICATION FOR LINE PLACEMENT: Chemotherapy CONDITION OF LINE PLACEMENT: Sterile PRIMARY PROCEDURALIST: Rowan Ceja RN SWITCHBOARD CLERK: Megan Guzman RN PRE-PROCEDURE REVIEW ALLERGIES Allergen [...] Guzman RN CATHETER PLACEMENT Brand: BARD Lot: [id number] Number of Lumens: 1 Type of PICC: Power Injectable PICC Lumen Size: 4 Dutch PLACEMENT TECHNIQUE Lidocaine: Yes, Lidocaine 1% Volume [...] Patient Education Materials: Given to patient The [facility] Central Line Insertion checklist, attached to the Central Line-Associated Bloodstream Infection Prevention Policy, was utilized during this procedure. QUESTIONS or PROBLEMS: Page [phone] SIGNATURE: Megan Guzman RN PATIENT NAME: Alejandro Killian DATE: July 10, 2020 TIME: 4:54 PM PAGER/CONTACT PHONE: [facility] PROGRESSon 07-10-2020 PROGRESS HNO ID: [id number] Author: Annie Israel RN Service: General Internal Medicine Author Type: Nurse Practitioner Type: Progress Notes Filed: 07/10/2020 11:15 AM Note Text: Am labs reviewed Hypokalemia 2.5-- 60 meq IV potassium chloride ordered Recheck in am along with Mg level Annie Israel APRN.WARP TYING MACHINE TENDER July 10, 2020 11:15 AM [facility] PT EDon 07-10-2020 PT ED HNO ID: [id number] Author: Megan Brito) HÉCTOR Guzman Service: PICC Team Author Type: Registered Nurse Type: Patient Education Filed: 07/10/2020 4:49 PM Note Text: PATIENT EDUCATION TOPIC: PROCEDURE / SURGERY: Procedure/Surgery: PICC insertion PATIENT NAME: Alejandro Killian PATIENT LOCATION: [place] [address] [address] READINESS TO LEARN COGNITIVE ABILITY: Alert and [...] None Electronically Signed By: Megan Guzman RN [facility] Protimeon 07-10-2020 PT Coag (PPP) [Time] 11.4 s Normal 9.7-13.0 [facility] PT Coag (PPP) [Time] 1.1 s Normal 0.9-1.3 [facility] Comment on above: Result Comment: Meredith min K Antagonist (VKA) Therapeutic Range: INR 2 to 3 (Target INR of 2.5) Note: For patients treated with VKA drugs, such as warfarin, the [place] [employer] 2012 Guideline recommends [...] Chest 2012, 141:7S-47S Patric RA, et al. [facility] 2017, 70: 252-289 SURGICAL PATHOLOGYon 020 SURGICAL PATHOLOGY ADDITIONAL PROCEDURES PRESENT Specimen originated from [facility] Specimen #: [id number] Submitting Physician: DICKSON RUTLEDGE FINAL DIAGNOSIS BONE [...] Aspirate CLINICAL HISTORY: Lymphoma CYTOGENETICS LAB NUMBER: [id number] PREVIOUS CASE: None Known TESTS ORDERED: Chromosome [...] 20 BAND RESOLUTION: 425 CELLS KARYOTYPED: 2 Back Grinder: Juan M Alonzo M.D. [place] [id number], [facility], [address] [place] [address]. [phone]. [phone]. Procedure Pathologist: Ludivina Saleem M.D. Electronic Signature [...] in one cassette. Gross examination performed at [facility], [address] [place] [address] 07/10/2020 7:46:49 PM Date of Report: 07/14/2020 Date of Procedure: 07/10/2020 Date of Receipt: 07/10/2020 Submitted by: DICKSON RUTLEDGE Additional Physician(s): VICTOR MANUEL ORONA Location: 3ST Diagnostic interpretation performed at [place] [address]. CLIA Number: [id number] Normal [facility] Uric Acidon 07-10-2020 Urate [Mass/Vol] 6.8 mg/dL Normal 4.0-8.1 [facility] Comment on above: Performed By: #### L D6, HCQPCR, HREMOP ####[place] [address] [place], [place] [phone] Urinalysis with Microscopico n 07-10-2020 Bilirubin, Urine 2+ Critically abnormal Negative [facility] [facility] Comment on above: Result Comment: Sugg est correlation with clinical findings and serum bilirubin if clinically indicated. Cast SEE COMMENT Critically abnormal 0 [facility] Comment on above: Result Comment: >10 Hyaline Cast Clarity (U) Turbid Critically abnormal Clear [facility] Color (U) Dark Yellow Critically abnormal Yellow [facility] Crystals LM Nom (Urine sed) SEE COMMENT Critically abnormal Negative [facility] Comment on above: Result Comment: 1+ Amorphous Glucose Ql (U) Negative Normal Negative [facility] Hemoglobin/Blood,Ur Negative Normal Negative [facility] Ketones Ql (U) Negative Normal Negative [facility] Leukest Negative Normal Negative [facility] Nitrite Ql (U) Negative Normal Negative [facility] pH (Bld) 6.5 Normal 5.0-8.0 [facility] Protein (U) [Mass/Vol] 1+ Critically abnormal Negative [facility] RBC (U) [#/Vol] 0-3 Normal 0-3 [facility] Specific [place], Ur 1.018 Normal 1.005-1.030 [facility] Urine, Other FOR EAST USE ONLY SEE COMMENT Normal [facility] Comment on above: Result Comment: 1+ Mucous Urobilinogen Qn (U) 1+ E.U./dL Normal 0.2-1.0 [facility] WBC (Bld) [#/Vol] 6-10 Critically abnormal 0-5 [facility] AFP Tumor Markeron 0 AFP Tumor Marker 2 ng/mL Normal 0-9 [facility] Comment on above: Result Comment: INTE [...] reference intervals for this test in the [employer] [facility] Test Directory (ScoreStreak). Performed By: [facility] [address] [place] [address] Tax Manager Cpa: Mary Irvin MD Performed By: #### C MP3, HEMDF, PT #### [address] [address] [place] 19-9on 07-09-2020 [place] 19-9 7 U/mL Normal 0-37 [facility] Comment on above: Result Comment: INTE RPRETIVE [...] or absence of malignant disease. Performed By: [facility] [address] [place] [phone] Tax Manager Cpa: Mary Irvin MD Performed By: #### C EA2 #### [address] [address] #### AFTM, CA19O #### The performing lab is in the report. CBC and Differentialon 07-09 Abs Baso 0.07 k/uL Normal <0.11 [facility] Abs Creek 0.74 k/uL Normal <0.87 [facility] Abs Neut 5.55 k/uL Normal 1.45-7.50 [facility] Absolute nRBC <0.01 Normal <0.01 [facility] Basophils/100 WBC (Bld) 0.9 % Normal [facility] DTYPE Auto Diff Normal [facility] Eosinophils (Bld) [#/Vol] 0.41 10*3/uL Normal <0.46 [facility] Eosinophils/100 WBC (Bld) 5.2 % Normal [facility] Erythrocyte distribution width (RBC) [Ratio] 13.9 % Normal 11.5-15.0 [facility] Hematocrit (Bld) [Volume fraction] 39.4 % Normal 39.0-51.0 [facility] Hemoglobin (Bld) [Mass/Vol] 13.4 g/dL Normal 13.0-17.0 [facility] Lymphocytes (Bld) [#/Vol] 1.13 10*3/uL Normal 1.00-4.00 [facility] Lymphocytes/100 WBC (Bld) 14.3 % Normal [facility] MCH (RBC) [Entitic mass] 31.7 pG Normal 26.0-34.0 [facility] MCHC (RBC) [Mass/Vol] 34.0 g/dL Normal 30.5-36.0 [facility] MCV (RBC) [Entitic vol] 93.1 fL Normal 80.0-100.0 [facility] Monocytes/100 WBC (Bld) 9.4 % Normal [facility] Neutrophils/100 WBC (Bld) 70.2 % Normal [facility] NRBCs 0.0 /100 WBC Normal 0 [facility] Platelet mean volume (Bld) [Entitic vol] 11.7 fL Normal 9.0-12.7 [facility] Platelets (Bld) [#/Vol] 237 10*3/uL Normal 150-400 [facility] RBC (Bld) [#/Vol] 4.23 10*6/uL Normal 4.20-6.00 [facility] WBC (Bld) [#/Vol] 7.90 10*3/uL Normal 3.70-11.00 [facility] Comp Metabolic Panelon 07-09 Albumin [Mass/Vol] 4.2 g/dL Normal 3.9-4.9 [facility] ALP [Catalytic activity/Vol] 258 U/L High 38-113 [facility] ALT [Catalytic activity/Vol] 219 U/L High 10-54 [facility] Anion gap [Moles/Vol] 12 mmol/L Normal 9-18 [facility] AST [Catalytic activity/Vol] 144 U/L High 14-40 [facility] Bilirubin [Mass/Vol] 9.8 mg/dL High 0.2-1.3 [facility] Calcium [Mass/Vol] 10.8 mg/dL High 8.5-10.2 [facility] Chloride [Moles/Vol] 100 mmol/L Normal 97-105 [facility] CO2 [Moles/Vol] 27 mmol/L Normal 22-33 [facility] Creatinine [Mass/Vol] 0.95 mg/dL Normal 0.73-1.22 [facility] eGFR- Amer. >60 Normal [facility] GFR/1.73 sq M predicted among non-blacks MDRD (S/P/Bld) [Vol rate/Area] mL/min/{1.73_m2} Normal [facility] Comment on above: Result Comment: eGFR [...] GFR. Glucose [Mass/Vol] 99 mg/dL Normal 74-99 [facility] Potassium [Moles/Vol] 3.2 mmol/L Low 3.7-5.1 [facility] Protein [Mass/Vol] 6.9 g/dL Normal 6.3-8.0 [facility] Sodium [Moles/Vol] 139 mmol/L Normal 136-144 [facility] Urea nitrogen [Mass/Vol] 12 mg/dL Normal 9-24 [facility] NURSING PROGon 07-09-2020 NURSING PROG HNO ID: [id number] Author: Adriana (Rn) HÉCTOR Medel Service: ? Author Type: Registered Nurse Type: Nursing Progress Note Filed: 07/09/2020 8:13 PM Note Text: Nursing Progress Note Patient Name: Alejandro Killian Patient Location: --[id number] Daily Note: 1845 Admitted to room 1, AANDOx3, patient walked up to floor on his own. [place] steady. no c/o pain at this time. Patient said he is here because of a blocked bile duct. Patient eyes are slightly jaundiced. Oriented to room. [address] Med reconciliation completed and Dr. Guzman paged for orders. 1914 Security up to lock-up patient's wallet. This note was completed by: Adriana Medel RN [facility] NURSING PROG HNO ID: [id number] Author: Merrill (Héctor) HÉCTOR Markham Service: ? Author Type: Registered Nurse Type: Nursing Progress Note Filed: 07/10/2020 2:54 AM Note Text: Nursing Progress Note Patient Name: Alejandro Killian Patient Location: [place] [address] [address] Daily Note: 193 - Received report from [...] note was completed by: MERRILL MARKHAM RN [facility] Protimeon 07-09-2020 PT Coag (PPP) [Time] 1.0 s Normal 0.9-1.3 [facility] Comment on above: Result Comment: Meredith min K Antagonist (VKA) Therapeutic Range: INR 2 to 3 (Target INR of 2.5) Note: For patients treated with VKA drugs, such as warfarin, the [place] [employer] 2012 Guideline recommends [...] Chest 2012, 141:7S-47S Patric RA, et al. [facility] 2017, 70: 252-289 PT Coag (PPP) [Time] 11.0 s Normal 9.7-13.0 [facility] BILIRUBIN, DIRECTon 07-08-20 20 Bilirubin.direct [Mass/Vol] 3.9 mg/dL High 0 - 0.3 mg/dL [place], [place] Interpretation and review of laboratory results Abnormal [place] Test Performed by [facility], [address] [place] [id number] [place] [address] Bilirubin,Directon 0 Bilirubin.direct [Mass/Vol] 3.9 mg/dL High 0.0-0.3 [facility] Comment on above: Performed By: #### P CAYDEN, CMP3, BILD3 #### [facility] [employer] [address] [address] CBC Auto Differentialon 06-12 Absolute Baso # 0.1 10*3/uL 0 - 0.2 10*3/uL [facility] [place] Absolute Neut # 5.4 10*3/uL 1.8 - 7 10*3/uL [facility] [place] CEAon 07-08-2020 CEA 5.2 ng/mL High 0 - 3 ng/mL [place] Interpretation and review of laboratory results Abnormal [place] Test Performed by [facility] [employer] [facility], [address] [place] [address] [place], [place] CT Chest Abdomen Pelvis W Co ntraston 07-08-2020 Rafal, [facility] Incoming Radiology Results From [employer] - 07/08/2020 9:54 AM EDT Patient Name: AMIE KILLIAN ---CT--- Exam Date/Time 07/08/2020 06:35:[address] Chest/Abdomen/Pelvis (IV Only) Ordering Physician Shauna CROUCH LUDIVINA Accession Number [id number] CPT4 Codes 96217 (CT Chest/Abdomen/Pelvis (IV Only)), 91250 (CT Chest w/ Contrast), Q9967 (CT ISOVUE 370MG/[id number]&ML&[id number]) Reason For Exam Obstructive jaundice Report CHEST [...] AHMAD Transcribed Date and Time: 07/08/2020 9:52 [place] Patient Name: AMIE KILLIAN ---CT--- Exam Date/Time 07/08/2020 06:35:[address] Chest/Abdomen/Pelvis (IV Only) Ordering Physician Shauna CROUCH HUNTER Accession Number [id number] CPT4 Codes 60731 (CT Chest/Abdomen/Pelvis (IV Only)), 50790 (CT Chest w/ Contrast), Q9967 (CT ISOVUE 370MG/[id number]) Reason For Exam Obstructive jaundice Report CHEST [...] AHMAD Transcribed Date and Time: 07/08/2020 9:52 [place] CT Chest/Abdomen/Pelvis (IV Only)on 07-08-2020 CT Chest/Abdomen/Pelvi s (IV Only) Patient Name: AMIE KILLIAN CT Exam Date/Time 07/08/2020 06:35:[address] Chest/Abdomen/Pelvis (IV Only) Ordering Physician Shauna CROUCH LUDIVINA Accession Number [id number] CPT4 Codes 35886 (CT Chest/Abdomen/Pelvis (IV Only)), 08960 (CT Chest w/ Contrast), Q9967 (CT ISOVUE 370MG/[id number] and1) Reason For Exam Obstructive jaundice Report [...] Dictated: 07/08/2020 9:52 am Dictating Physician: MD MCAIAS AHMAD Signed Date and Time: 07/08/2020 9:52 am Signed by: MD MACIAS AHMAD Transcribed Date and Time: 07/08/2020 9:52 Normal [facility] Carcinoembryonic Agon 2019 Carcinoembryonic Ag [Mass/Vol] 5.2 ng/mL High 0.0-3.0 [facility] Comment on above: Performed By: #### C EA2 #### [facility] [address] [place], [place] #### AFTM, CA19O #### The performing lab is in the report. Comp Metabolic Panelon 07-08 Potassium [Moles/Vol] 3.6 mmol/L Normal 3.5-5.1 [facility] Comment on above: Performed By: #### P CAYDEN, CMP3, BILD3 #### [facility] [address] [place], [place] ALP [Catalytic activity/Vol] 227 U/L High 38-126 [facility] Comment on above: Performed By: #### P CAYDEN, CMP3, BILD3 #### [facility] [address] [place], [place] ALT [Catalytic activity/Vol] 274 U/L High 0-49 [facility] Comment on above: Result Comment: The ALT test is performed by an updated assay method. Please note that the reference intervals have been changed and are now sex specific. Performed By: #### P CAYDEN, CMP3, BILD3 #### [facility] [address] [place], [place] Calcium [Mass/Vol] 9.9 mg/dL Normal 8.4-10.4 [facility] Comment on above: Performed By: #### P CAYDEN, CMP3, BILD3 #### [facility] [address] [place], [place] Glucose [Mass/Vol] 90 mg/dL Normal 70-100 [facility] Comment on above: Performed By: #### P CAYDEN, CMP3, BILD3 #### [facility] [address] [place] [address] Urea nitrogen [Mass/Vol] 12 mg/dL Normal 7-20 [facility] Comment on above: Performed By: #### P CAYDEN, CMP3, BILD3 #### [facility] [address] [place] [address] Anion gap [Moles/Vol] 9 Normal [facility] Comment on above: Performed By: #### P CAYDEN, CMP3, BILD3 #### [facility] [address] [place] [address] AST [Catalytic activity/Vol] 139 U/L High 15-46 [facility] Comment on above: Performed By: #### P CAYDEN, CMP3, BILD3 #### [place] [address] [address] [place], [place] Bilirubin [Mass/Vol] 7.1 mg/dL High 0.2-1.3 [facility] Comment on above: Performed By: #### P CAYDEN, CMP3, BILD3 #### [place] [address] [address] [place], [place] CO2 [Moles/Vol] 26 mmol/L Normal 22-30 [facility] Comment on above: Performed By: #### P CAYDEN, CMP3, BILD3 #### [place] [address] [address] [place], [place] Creatinine [Mass/Vol] 0.78 mg/dL Normal 0.52-1.25 [facility] Comment on above: Performed By: #### P CAYDEN, CMP3, BILD3 #### [place] [address] [place] [address] GFR/1.73 sq M predicted among blacks MDRD (S/P/Bld) [Vol rate/Area] mL/min/{1.73_m2} Normal >60 [facility] Comment on above: Performed By: #### P CAYDEN, CMP3, BILD3 #### [facility] [address] [place] [address] GFR/1.73 sq M predicted among non-blacks MDRD (S/P/Bld) [Vol rate/Area] mL/min/{1.73_m2} Normal >60 [facility] Comment on above: Result Comment: KDIG O [...] By: #### P CAYDEN, CMP3, BILD3 #### [facility] [employer] [place] [address] [address] [place], [place] Protein [Mass/Vol] 7.1 g/dL Normal 6.3-8.2 [facility] Comment on above: Performed By: #### P CAYDEN, CMP3, BILD3 #### [place] [address] [place] ALP [Catalytic activity/Vol] 227 U/L High 38-126 [facility] Comment on above: Performed By: #### C MP3, HEMDF, PT #### [facility] [employer] [place] [address] [address] [place], [place] ALT [Catalytic activity/Vol] 267 U/L High 0-49 [facility] Comment on above: Result Comment: The ALT test is performed by an updated assay method. Please note that the reference intervals have been changed and are now sex specific. Performed By: #### C MP3, HEMDF, PT #### [facility] [employer] [facility] [address] [place], [place] Anion gap [Moles/Vol] 10 Normal [facility] Comment on above: Performed By: #### C MP3, HEMDF, PT #### [facility] [employer] [place] [address] [address] [place], [place] AST [Catalytic activity/Vol] 136 U/L High 15-46 [facility] Comment on above: Performed By: #### C MPElizabeth HEMDF, PT #### [facility] [address] [place], [place] Bilirubin [Mass/Vol] 7.0 mg/dL High 0.2-1.3 [facility] Comment on above: Performed By: #### C MP3 HEMDF, PT #### [facility] [address] [place], [place] Calcium [Mass/Vol] 9.8 mg/dL Normal 8.4-10.4 [facility] Comment on above: Performed By: #### C ZOIE3 HEMDF, PT #### [facility] [address] [place], [place] CO2 [Moles/Vol] 27 mmol/L Normal 22-30 [facility] Comment on above: Performed By: #### C MPElizabeth HEMDF, PT #### [facility] [address] [place], [place] Creatinine [Mass/Vol] 0.79 mg/dL Normal 0.52-1.25 [facility] Comment on above: Performed By: #### C MPElizabeth HEMDF, PT #### [facility] [address] [place], [place] GFR/1.73 sq M predicted among blacks MDRD (S/P/Bld) [Vol rate/Area] mL/min/{1.73_m2} Normal >60 [facility] Comment on above: Performed By: #### C MP3 HEMDF, PT #### [facility] [address] [place], [place] GFR/1.73 sq M predicted among non-blacks MDRD (S/P/Bld) [Vol rate/Area] mL/min/{1.73_m2} Normal >60 [facility] Comment on above: Result Comment: KDIG O [...] By: #### C MP3, HEMDF, PT #### [facility] [address] [place], [place] Glucose [Mass/Vol] 90 mg/dL Normal 70-100 [facility] Comment on above: Performed By: #### C MP3, HEMDF, PT #### [facility] [address] [place], [place] Protein [Mass/Vol] 7.0 g/dL Normal 6.3-8.2 [facility] Comment on above: Performed By: #### C MP3, HEMDF, PT #### [facility] [address] [place], [place] Sodium [Moles/Vol] 139 mmol/L Normal 135-145 [facility] Comment on above: Performed By: #### P CAYDEN, CMP3, BILD3 #### [facility] [address] [place], [place] Urea nitrogen [Mass/Vol] 12 mg/dL Normal 7-20 [facility] Comment on above: Performed By: #### C MP3, HEMDF, PT #### [facility] [address], [place] Albumin [Mass/Vol] 3.9 g/dL Normal 3.5-5.0 [facility] Comment on above: Performed By: #### P CAYDEN, CMP3, BILD3 #### [facility] [address] [place], [place] Chloride [Moles/Vol] 103 mmol/L Normal 98-107 [facility] Comment on above: Performed By: #### P CAYDEN, CMP3, BILD3 #### [facility] [address] [place], [place] Potassium [Moles/Vol] 3.5 mmol/L Normal 3.5-5.1 [facility] Comment on above: Performed By: #### C MP3, HEMDF, PT #### [facility] [address] [place] Albumin [Mass/Vol] 3.9 g/dL Normal 3.5-5.0 [facility] Comment on above: Performed By: #### C MP3, HEMDF, PT #### [facility] [address] [place] Chloride [Moles/Vol] 103 mmol/L Normal 98-107 [facility] Comment on above: Performed By: #### C MP3, HEMDF, PT #### [facility] [address] [place], [place] Sodium [Moles/Vol] 139 mmol/L Normal 135-145 [facility] Comment on above: Performed By: #### C MP3, HEMDF, PT #### [facility] [address] [place], [place] Comprehensive Metabolic Pane kristi 07-08-2020 Albumin [Mass/Vol] 3.9 g/dL 3.5 - 5 g/dL [place] ALP [Catalytic activity/Vol] 227 U/L High 38 - 126 U/L [place] ALT [Catalytic activity/Vol] 274 U/L High 0 - 49 U/L [place] Comment on above: The ALT test is perf ormed by an updated assay method. Please note that the reference intervals have been changed and are now sex specific. Anion gap [Moles/Vol] 9 mmol/L [place] AST [Catalytic activity/Vol] 139 U/L High 15 - 46 U/L [place] Bilirubin Ql (U) 7.1 mg/dL High 0.2 - 1.3 mg/dL [place] Calcium [Mass/Vol] 9.9 mg/dL 8.4 - 10. 4 mg/dL [place] Chloride [Moles/Vol] 103 mmol/L 98 - 107 mmol/L [place] CO2 [Moles/Vol] 26 mmol/L 22 - 30 mmol/L [place] Creatinine [Mass/Vol] 0.78 mg/dL 0.52 - 1.25 mg/dL [place] EGFR IF NonAfrican [place]er >90.0 >60 mL/min [place] Comment on above: KDIGO guidelines pro [...] MDRD (S/P/Bld) [Vol rate/Area] mL/min/{1.73_m2} >60 mL/min [place] Glucose [Mass/Vol] 90 mg/dL 70 - 100 mg/dL [place] Interpretation and review of laboratory results Abnormal [place] Potassium [Moles/Vol] 3.6 mmol/L 3.5 - 5.1 mmol/L [place] Protein [Mass/Vol] 7.1 g/dL 6.3 - 8.2 g/dL [place] Sodium [Moles/Vol] 139 mmol/L 135 - 145 mmol/L [place] Urea nitrogen [Mass/Vol] 12 mg/dL 7 - 20 mg/dL [place] Test Performed by [facility], [address] [place] [address] [place] Albumin [Mass/Vol] 3.9 g/dL 3.5 - 5 g/dL [place] ALP [Catalytic activity/Vol] 227 U/L High 38 - 126 U/L [place] ALT [Catalytic activity/Vol] 267 U/L High 0 - 49 U/L [place] Comment on above: The ALT test is perf ormed by an updated assay method. Please note that the reference intervals have been changed and are now sex specific. Anion gap [Moles/Vol] 10 mmol/L [place] AST [Catalytic activity/Vol] 136 U/L High 15 - 46 U/L [place] Bilirubin Ql (U) 7.0 mg/dL High 0.2 - 1.3 mg/dL [place] Calcium [Mass/Vol] 9.8 mg/dL 8.4 - 10. 4 mg/dL [place] Chloride [Moles/Vol] 103 mmol/L 98 - 107 mmol/L [place] CO2 [Moles/Vol] 27 mmol/L 22 - 30 mmol/L [place] Creatinine [Mass/Vol] 0.79 mg/dL 0.52 - 1.25 mg/dL [place] EGFR IF NonAfrican [place] >90.0 >60 mL/min [place] Comment on above: KDIGO guidelines pro [...] MDRD (S/P/Bld) [Vol rate/Area] mL/min/{1.73_m2} >60 mL/min [place] Glucose [Mass/Vol] 90 mg/dL 70 - 100 mg/dL [place] Potassium [Moles/Vol] 3.5 mmol/L 3.5 - 5.1 mmol/L [place] Protein [Mass/Vol] 7.0 g/dL 6.3 - 8.2 g/dL [place] Sodium [Moles/Vol] 139 mmol/L 135 - 145 mmol/L [place] Urea nitrogen [Mass/Vol] 12 mg/dL 7 - 20 mg/dL [place] Hemogram w/ Autodiffon 07-08 Abs Baso Cnt 0.1 10*3/uL Normal 0.0-0.2 [facility] Comment on above: Performed By: #### C MP3, HEMDF, PT #### [address] [address] Abs Neutrophile Cnt 5.4 10*3/uL Normal 1.8-7.0 [facility] Comment on above: Performed By: #### C MP3, HEMDF, PT #### [address] [address] Basophils/100 WBC (Bld) 1.0 % Normal 0.0-2.0 [place] Comment on above: Performed By: #### C MP3, HEMDF, PT #### [address] [address] Eosinophils (Bld) [#/Vol] 0.3 10*3/uL Normal 0.0-0.5 [place] Comment on above: Performed By: #### C MP3, HEMDF, PT #### [address] [address] Eosinophils/100 WBC (Bld) 3.9 % Normal 1.0-6.0 [place] Comment on above: Performed By: #### C MP3, HEMDF, PT #### [place] [address] [address] [place], [place] Erythrocyte distribution width (RBC) [Ratio] 14.2 % Normal 11.5-14.5 [place] Comment on above: Performed By: #### C MP3, HEMDF, PT #### [place] [address] [address] [place] Granulocytes/100 WBC (Bld) 72.4 % Normal 40.0-80.0 [place] Comment on above: Performed By: #### C MP3, HEMDF, PT #### [place] [address] [address] [place] Hematocrit (Bld) [Volume fraction] 38.3 % Low 40.0-52.0 [place] Comment on above: Performed By: #### C MP3, HEMDF, PT #### [place] [address] [address] [place] Hemoglobin (Bld) [Mass/Vol] 13.0 g/dL Normal 13.0-18.0 [place] Comment on above: Performed By: #### C MP3, HEMDF, PT #### [place] [address] [address] [place] Lymphocytes (Bld) [#/Vol] 1.1 10*3/uL Normal 1.0-4.3 [place] Comment on above: Performed By: #### C MP3, HEMDF, PT #### [place] [address] [address] [place] Lymphocytes/100 WBC (Bld) 15.3 % Low 20.0-40.0 [place] Comment on above: Performed By: #### C MP3, HEMDF, PT #### [place] [address] [address] [place] MCH (RBC) [Entitic mass] 31.8 pg Normal 26.0-34.0 [place] Comment on above: Performed By: #### C MP3, HEMDF, PT #### [place] [address] [address] [place] MCHC (RBC) [Mass/Vol] 34.0 % Normal 32.0-36.0 [place] Comment on above: Performed By: #### C MP3, HEMDF, PT #### [place] [address] [address] [place] MCV (RBC) [Entitic vol] 93.7 fL Normal 80.0-98.0 [place] Comment on above: Performed By: #### C MP3, HEMDF, PT #### [place] [address] [address] [place] Monocytes (Bld) [#/Vol] 0.5 10*3/uL Normal 0.0-0.8 [place] Comment on above: Performed By: #### C MP3, HEMDF, PT #### [place] [address] [address] [place] Monocytes/100 WBC (Bld) 7.4 % Normal 2.0-10.0 [place] Comment on above: Performed By: #### C MP3, HEMDF, PT #### [place] [address] [address] [place] Platelet mean volume (Bld) [Entitic vol] 9.8 fL Normal 7.4-10.4 [place] Comment on above: Performed By: #### C MP3, HEMDF, PT #### [place] [address] [address] [place] Platelets (Bld) [#/Vol] 208 10*3/uL Normal 140-440 [place] Comment on above: Performed By: #### C MP3, HEMDF, PT #### [place] [address] [address] [place] RBC (Bld) [#/Vol] 4.09 10*6/uL Low 4.40-5.90 [place] Comment on above: Performed By: #### C MP3, HEMDF, PT #### [address] WBC (Bld) [#/Vol] 7.4 10*3/uL Normal 3.6-10.7 [place] Comment on above: Performed By: #### C MP3, HEMDF, PT #### [address] Otheron 07-08-2020 Interpretation and review of laboratory results Abnormal [place] Test Performed by [facility], [address] [place] [id number] [place] [address] Procalcitoninon 07-08-2020 Procalcitonin < 0.10 Normal <0.10 [facility] Comment on above: Performed By: #### P CAYDEN, CMP3, BILD3 #### [address] Procalcitonin <0.10 <0.10 ng/mL [place] Sodium [Moles/Vol] See Below [place] Comment on above: PCT <0.50 = Low risk of severe sepsis and/or septic shock. PCT >2.00 = High risk of severe sepsis and/or septic shock. Test Performed by [id number] [place] [address] Interpretation See Below Normal [facility] Comment on above: Result Comment: PCT <0.50 = Low risk of severe sepsis and/or septic shock. PCT >2.00 = High risk of severe sepsis and/or septic shock. Performed By: #### P CAYDEN, CMP3, BILD3 #### [address] Prothrombin Timeon 0 INR Coag (PPP) [Relative time] 1.0 Normal 0.9-1.1 [facility] Comment on above: Result Comment: Lc mmended [...] By: #### C MP3, HEMDF, PT #### [facility] [address] [place] [address] PT Coag (PPP) [Time] 11.1 s Normal 9.0-12.0 [facility] Comment on above: Result Comment: . Performed By: #### C MP3, HEMDF, PT #### [facility] [address] [place] [address] Protime-INRon 07-08-2020 INR Coag (PPP) [Relative time] 1.0 {INR} [place] Comment on above: Recommended Anticoag ulant [...] [Time] 11.1 s 9 - 12 s [place] Comment on above: . Test Performed by [facility], [address] [place] [address] [place] CNNURSEon 06-01-2017 CNNURSE Nurse Visit (FERNANDO) -------AMIE KILLIAN ([id number]) 1955 MDate Time Provider Department06/01/17 1:15 PM NURSE AMBERLY KING During your visit today, we recorded the following information about you:Miles Rasmussen, RN, RN 06/01/2017 12:49 PM SignedMichaeelba Killian a 62 year old male, identified by name and date of , herefor a 6 month Lupron injection..Adverse Effects: Hot Flashes: No Frequency: noneAllergies reviewed: YesInjection Administration:Lupron 45 mgIMleft gluteal site.Lot # [id number] date: 17-70-9814XDB #: [id number] tolerated well.FOLLOW UP:Next Dose: 6 monthsMiles Rasmussen RNReferring Provider: APOLLO MELO [[id number]]Allergies As of Date: 06/01/2017 Noted Allergy ReactionDOXYCYCLINE [...] RN 06/01/2017 12:48 PM >> MILES RASMUSSEN [facility] Jun 01, 2017 12:48 PM Injection Administration: Lupron 45 mg IM left gluteal site. Lot # [id number] Expiration date: 07-21-2018 [facility] 2] #: [id number] List As Of Date 06/01/2017 Noted Resolved [...] INVALID FOR*Visit Notes:>> Miles (Rn) HÉCTOR Rasmussen [facility] Jun 01, 2017 12:46 PM Status: Ernesto Killian a 62 year old male, identified by name and date of ,here for a 6 month Lupron injection..Adverse Effects: Hot Flashes: No Frequency: noneAllergies reviewed: YesInjection Administration:Lupron 45 mgIMleft gluteal site.Lot # [id number] date: 37-65-9115UOW #: [id number] tolerated well.FOLLOW UP:Next Dose: 6 monthsMiles Rasmussen RNEncounter Number: [id number] Status:Closed by MILES RASMUSSEN on 06/01/17 [facility] Office Visit: suture removal gwen 04-11-2017 Documentation of current medications (procedure) Done Invalid Interpretation Code [facility] [employer] Work Phone: Protein mass conc yes [facility] [employer] Work Phone: Protein mass conc Done [facility] [employer] Work Phone: Smoking cessation education (procedure) yes Invalid Interpretation Code [facility] [employer] Work Phone: Tobacco smoking status NHIS Never Invalid Interpretation Code [facility] [employer] Work Phone: Tobacco smoking status NHIS Current every day smoker [facility] [employer] Work Phone: Tobacco use [facility] Current every day smoker Invali d Interpretation Code [facility] [employer] Work Phone: Office Visit: skin lesion on 03-29-2017 Fall risk assessment No Invalid Interpretation Code [facility] [employer] Work Phone: Protein mass conc Done [facility] [employer] Work Phone: Tobacco smoking status NHIS Never [facility] [employer] Work Phone: Tobacco smoking status NHIS Current every day smoker [facility] [employer] Work Phone: Office Visit: skin lesion on gwen 09-11-2014 Colonoscopy (procedure) Colonoscopy (procedure) Invalid Interpretation Code [facility] Work Phone: Protein mass conc Colonoscopy (procedure) [facility] Work Phone: Vital Signs Date Time Vital Sign Value Performing Clinician Facility 02-18-2025 14:28-0400 Body temperature 98.1 [degF] Dr. Apollo Melo MD Work Phone: [facility] 02-18-2025 14:28-0400 Diastolic blood pressure 80 mm[Hg] Dr. Apollo Melo MD Work Phone: [facility] 02-18-2025 14:28-0400 Heart rate 77 /min Dr. Apollo Melo MD Work Phone: [facility] 02-18-2025 14:28-0400 Respiratory rate 22 /min Dr. Apollo Melo MD Work Phone: [facility] 02-18-2025 14:28-0400 SaO2% (BldA) [Mass fraction] 99 % Dr. Apollo Melo MD Work Phone: [facility] 02-18-2025 14:28-0400 Systolic blood pressure 138 mm[Hg] Dr. Apollo Melo MD Work Phone: [facility] 02-18-2025 13:54-0400 Body height 172.[address] Apollo Melo MD Work Phone: [facility] 02-18-2025 13:54-0400 Body mass index (BMI) [Ratio] 19.5 kg/m2 Dr. Apollo Melo MD Work Phone: [facility] 02-18-2025 13:54-0400 Body weight 58.[address] Apollo Melo MD Work Phone: [facility] 01-14-2025 08:26-0400 Body mass index (BMI) [Ratio] 19.69 kg/m2 Apollo Melo MD Work Phone: [facility] 01-14-2025 08:26-0400 Body weight 56.7 kg Apollo Melo MD Work Phone: [facility] 01-14-2025 08:26-0400 Diastolic blood pressure 76 mm[Hg] Apollo Melo MD Work Phone: [facility] 01-14-2025 08:26-0400 Heart rate 80 /min Apollo Melo MD Work Phone: [facility] 01-14-2025 08:26-0400 Respiratory rate 16 /min Apollo Melo MD Work Phone: [facility] 01-14-2025 08:26-0400 Systolic blood pressure 124 mm[Hg] Apollo Melo MD Work Phone: [facility] 12-19-2024 09:01-0400 Body mass index (BMI) [Ratio] 20.24 kg/m2 Francisco Javier Perez MD Work Phone: [facility] 12-19-2024 09:01-0400 Body temperature 97 [degF] Francisco Javier Perez MD Work Phone: [facility] 12-19-2024 09:01-0400 Body weight 58.29 kg Francisco Javier Perez MD Work Phone: [facility] 12-19-2024 09:01-0400 Diastolic blood pressure 73 mm[Hg] Francisco Javier Perez MD Work Phone: [facility] 12-19-2024 09:01-0400 Heart rate 79 /min Francisco Javier Perez MD Work Phone: [facility] 12-19-2024 09:01-0400 SaO2% (BldA) [Mass fraction] 100 % Francisco Javier Perez MD Work Phone: [facility] 12-19-2024 09:01-0400 Systolic blood pressure 150 mm[Hg] Francisco Javier Perez MD Work Phone: [facility] 12-17-2024 07:00-0400 Body mass index (BMI) [Ratio] 20.08 kg/m2 Lab[facility] Work Phone: [facility] 12-17-2024 07:00-0400 Body weight 57.83 kg Lab[facility] Work Phone: [facility] 11-26-2024 09:20-0400 Diastolic blood pressure 70 mm[Hg] Amanda Corona DO Work Phone: [facility] 11-26-2024 09:20-0400 Systolic blood pressure 125 mm[Hg] Amanda Corona DO Work Phone: [facility] 11-26-2024 08:47-0400 Heart rate 71 /min Amanda Corona DO Work Phone: [facility] 11-26-2024 08:47-0400 SaO2% (BldA) [Mass fraction] 95 % Amanda Corona DO Work Phone: [facility] 09-26-2024 09:10-0500 Body mass index (BMI) [Ratio] 19.69 kg/m2 Francisco Javier Perez MD Work Phone: [facility] 09-26-2024 09:10-0500 Body temperature 97.7 [degF] Francisco Javier Perez MD Work Phone: [facility] 09-26-2024 09:10-0500 Body weight 56.7 kg Francisco Javier Perez MD Work Phone: [facility] 09-26-2024 09:10-0500 Diastolic blood pressure 89 mm[Hg] Francisco Javier Perez MD Work Phone: [facility] 09-26-2024 09:10-0500 Heart rate 66 /min Francisco Javier Perez MD Work Phone: [facility] 09-26-2024 09:10-0500 SaO2% (BldA) [Mass fraction] 96 % Francisco Javier Perez MD Work Phone: [facility] 09-26-2024 09:10-0500 Systolic blood pressure 159 mm[Hg] Francisco Javier Perez MD Work Phone: [facility] 07-26-2024 08:03-0500 Body height 169.7 cm Pulm Wstr Work Phone: [facility] 07-26-2024 08:03-0500 Body mass index (BMI) [Ratio] 18.9 kg/m2 Pulm Wstr Work Phone: [facility] 07-26-2024 08:03-0500 Body weight 54.43 kg Pulm Wstr Work Phone: [facility] 07-26-2024 08:03-0500 Heart rate 72 /min Pulm Wstr Work Phone: [facility] 07-26-2024 08:03-0500 Respiratory rate 14 /min Pulm Wstr Work Phone: [facility] 07-26-2024 08:03-0500 SaO2% (BldA) [Mass fraction] 100 % Pulm Wstr Work Phone: [facility] 07-16-2024 09:20-0500 Body mass index (BMI) [Ratio] 18.27 kg/m2 Apollo Melo MD Work Phone: [facility] 07-16-2024 09:20-0500 Body weight 53.7 kg Apollo Melo MD Work Phone: [facility] 07-16-2024 09:20-0500 Diastolic blood pressure 74 mm[Hg] Apollo Melo MD Work Phone: [facility] 07-16-2024 09:20-0500 Heart rate 76 /min Apollo Melo MD Work Phone: [facility] 07-16-2024 09:20-0500 Respiratory rate 16 /min Apollo Melo MD Work Phone: [facility] 07-16-2024 09:20-0500 Systolic blood pressure 112 mm[Hg] Apollo Melo MD Work Phone: [facility] 07-04-2024 09:32-0400 Body mass index (BMI) [Ratio] 18.36 kg/m2 Francisco Javier Perez MD Work Phone: [facility] 07-04-2024 09:32-0400 Body temperature 97 [degF] Francisco Javier Perez MD Work Phone: [facility] 07-04-2024 09:32-0400 Body weight 53.98 kg Francisco Javier Perez MD Work Phone: [facility] 07-04-2024 09:32-0400 Diastolic blood pressure 95 mm[Hg] Francisco Javier Perez MD Work Phone: [facility] 07-04-2024 09:32-0400 Heart rate 68 /min Francisco Javier Perez MD Work Phone: [facility] 07-04-2024 09:32-0400 SaO2% (BldA) [Mass fraction] 99 % Francisco Javier Perez MD Work Phone: [facility] 07-04-2024 09:32-0400 Systolic blood pressure 150 mm[Hg] Francisco Javier Perez MD Work Phone: [facility] 04-11-2024 08:58-0400 Body mass index (BMI) [Ratio] 18.29 kg/m2 Treatment Wstr Work Phone: [facility] 04-11-2024 08:58-0400 Body temperature 97.39 [degF] Treatment Wstr Work Phone: [facility] 04-11-2024 08:58-0400 Body weight 53.75 kg Treatment Wstr Work Phone: [facility] 04-11-2024 08:58-0400 Diastolic blood pressure 89 mm[Hg] Treatment Wstr Work Phone: [facility] 04-11-2024 08:58-0400 Heart rate 64 /min Treatment Wstr Work Phone: [facility] 04-11-2024 08:58-0400 Respiratory rate 18 /min Treatment Wstr Work Phone: [facility] 04-11-2024 08:58-0400 SaO2% (BldA) [Mass fraction] 98 % Treatment Wstr Work Phone: [facility] 04-11-2024 08:58-0400 Systolic blood pressure 142 mm[Hg] Treatment Wstr Work Phone: [facility] 01-26-2024 15:03-0400 Body mass index (BMI) [Ratio] 18.5 kg/m2 Apollo Melo MD Work Phone: [facility] 01-26-2024 15:03-0400 Body weight 54.39 kg Apolol Melo MD Work Phone: [facility] 01-26-2024 15:03-0400 Diastolic blood pressure 78 mm[Hg] Apollo Melo MD Work Phone: [facility] 01-26-2024 15:03-0400 Heart rate 62 /min Apollo Melo MD Work Phone: [facility] 01-26-2024 15:03-0400 Respiratory rate 16 /min Apollo Melo MD Work Phone: [facility] 01-26-2024 15:03-0400 Systolic blood pressure 124 mm[Hg] Apollo Melo MD Work Phone: [facility] 01-18-2024 10:26-0400 Body mass index (BMI) [Ratio] 18.52 kg/m2 Treatment Wstr Work Phone: [facility] 01-18-2024 10:26-0400 Body temperature 97.5 [degF] Treatment Wstr Work Phone: [facility] 01-18-2024 10:26-0400 Body weight 54.43 kg Treatment Wstr Work Phone: [facility] 01-18-2024 10:26-0400 Diastolic blood pressure 84 mm[Hg] Treatment Wstr Work Phone: [facility] 01-18-2024 10:26-0400 Heart rate 60 /min Treatment Wstr Work Phone: [facility] 01-18-2024 10:26-0400 SaO2% (BldA) [Mass fraction] 99 % Treatment Wstr Work Phone: [facility] 01-18-2024 10:26-0400 Systolic blood pressure 149 mm[Hg] Treatment Wstr Work Phone: [facility] 10-27-2023 09:33-0500 Body temperature 96.4 [degF] Francisco Javier Perez MD Work Phone: [facility] 10-27-2023 09:33-0500 Body weight 54.88 kg Francisco Javier Perez MD Work Phone: [facility] 10-27-2023 09:33-0500 Diastolic blood pressure 90 mm[Hg] Francisco Javier Perez MD Work Phone: [facility] 10-27-2023 09:33-0500 Heart rate 69 /min Francisco Javier Perez MD Work Phone: [facility] 10-27-2023 09:33-0500 SaO2% (BldA) [Mass fraction] 92 % Francisco Javier Perez MD Work Phone: [facility] 10-27-2023 09:33-0500 Systolic blood pressure 145 mm[Hg] Francisco Javier Perez MD Work Phone: [facility] 10-27-2023 09:21-0500 Body weight 55.11 kg Lab/Port [facility]str Work Phone: [facility] 08-02-2023 08:23-0500 Body weight 56.47 kg Lab/Port [facility]str Work Phone: [facility] 07-21-2023 09:01-0500 Body temperature 97.3 [degF] Injection Wstr Work Phone: [facility] 07-21-2023 09:01-0500 Body weight 56.7 kg Injection Wstr Work Phone: [facility] 07-21-2023 09:01-0500 Diastolic blood pressure 84 mm[Hg] Injection Wstr Work Phone: [facility] 07-21-2023 09:01-0500 Heart rate 67 /min Injection Wstr Work Phone: [facility] 07-21-2023 09:01-0500 SaO2% (BldA) [Mass fraction] 99 % Injection Wstr Work Phone: [facility] 07-21-2023 09:01-0500 Systolic blood pressure 150 mm[Hg] Injection Wstr Work Phone: [facility] 07-17-2023 15:00-0500 Body weight 56.16 kg Apollo Melo MD Work Phone: [facility] 07-17-2023 15:00-0500 Diastolic blood pressure 84 mm[Hg] Apollo Melo MD Work Phone: [facility] 07-17-2023 15:00-0500 Heart rate 66 /min Apollo Melo MD Work Phone: [facility] 07-17-2023 15:00-0500 Respiratory rate 18 /min Apollo Melo MD Work Phone: [facility] 07-17-2023 15:00-0500 Systolic blood pressure 136 mm[Hg] Apollo Melo MD Work Phone: [facility] 05-16-2023 07:32-0400 Body temperature 97.81 [degF] Cydney Wolf APRN.[employer] Work Phone: [facility] 05-16-2023 07:32-0400 Body weight 56.25 kg Cydney Wolf APRN.[employer] MACHINE T[employer]ER Work Phone: [facility] 05-16-2023 07:32-0400 Diastolic blood pressure 80 mm[Hg] Cydney Wolf APRN.[employer]INE T[employer]ER Work Phone: [facility] 05-16-2023 07:32-0400 Heart rate 65 /min Cydney Wolf APRN.[employer]ACHINE T[employer]ER Work Phone: [facility] 05-16-2023 07:32-0400 Respiratory rate 18 /min Cydney Wolf APRN.[employer]INE T[employer]ER Work Phone: [facility] 05-16-2023 07:32-0400 SaO2% (BldA) [Mass fraction] 99 % Cydney Wolf APRN.[employer]INE T[employer]ER Work Phone: [facility] 05-16-2023 07:32-0400 Systolic blood pressure 150 mm[Hg] Cydney Wolf APRN.[employer]INE T[employer]ER Work Phone: [facility] 05-12-2023 10:28-0400 Body temperature 97 [degF] Treatment Wstr Work Phone: [facility] 05-12-2023 10:28-0400 Diastolic blood pressure 88 mm[Hg] Treatment Wstr Work Phone: [facility] 05-12-2023 10:28-0400 Heart rate 80 /min Treatment Wstr Work Phone: [facility] 05-12-2023 10:28-0400 Systolic blood pressure 150 mm[Hg] Treatment Wstr Work Phone: [facility] 04-28-2023 08:41-0400 Body temperature 97 [degF] Injection Wstr Work Phone: [facility] 01-13-2023 08:26-0400 Body weight 59.15 kg Apollo Melo MD Work Phone: [facility] 01-13-2023 08:26-0400 Diastolic blood pressure 80 mm[Hg] Apollo Melo MD Work Phone: [facility] 01-13-2023 08:26-0400 Heart rate 80 /min Apollo Melo MD Work Phone: [facility] 01-13-2023 08:26-0400 Respiratory rate 16 /min Apollo Melo MD Work Phone: [facility] 01-13-2023 08:26-0400 Systolic blood pressure 130 mm[Hg] Apollo Melo MD Work Phone: [facility] 11-28-2022 08:21-0400 Body temperature 97.3 [degF] Lisha Ernandez MD Work Phone: [facility] 11-28-2022 08:21-0400 Body weight 60.33 kg Lisha Ernandez MD Work Phone: [facility] 11-28-2022 08:21-0400 Diastolic blood pressure 84 mm[Hg] Lisha Ernandez MD Work Phone: [facility] 11-28-2022 08:21-0400 Heart rate 82 /min Lisha Ernandez MD Work Phone: [facility] 11-28-2022 08:21-0400 Systolic blood pressure 128 mm[Hg] Lisha Ernandez MD Work Phone: [facility] 11-25-2022 10:12-0400 Body temperature 97.11 [degF] Treatment Wstr Work Phone: [facility] 11-25-2022 10:12-0400 Diastolic blood pressure 71 mm[Hg] Treatment Wstr Work Phone: [facility] 11-25-2022 10:12-0400 Heart rate 81 /min Treatment Wstr Work Phone: [facility] 11-25-2022 10:12-0400 Systolic blood pressure 133 mm[Hg] Treatment Wstr Work Phone: [facility] 11-04-2022 09:05-0500 Body temperature 98.6 [degF] Injection Wstr Work Phone: [facility] 11-04-2022 09:05-0500 Body weight 59.42 kg Injection Wstr Work Phone: [facility] 11-04-2022 09:05-0500 Diastolic blood pressure 76 mm[Hg] Injection Wstr Work Phone: [facility] 11-04-2022 09:05-0500 Heart rate 74 /min Injection Wstr Work Phone: [facility] 11-04-2022 09:05-0500 Systolic blood pressure 125 mm[Hg] Injection Wstr Work Phone: [facility] 09-02-2022 10:00-0500 Body temperature 98.01 [degF] Treatment Wstr Work Phone: [facility] 09-02-2022 10:00-0500 Diastolic blood pressure 83 mm[Hg] Treatment Wstr Work Phone: [facility] 09-02-2022 10:00-0500 Heart rate 72 /min Treatment Wstr Work Phone: [facility] 09-02-2022 10:00-0500 SaO2% (BldA) [Mass fraction] 96 % Treatment Wstr Work Phone: [facility] 09-02-2022 10:00-0500 Systolic blood pressure 122 mm[Hg] Treatment Wstr Work Phone: [facility] 08-29-2022 08:12-0500 Body temperature 97.11 [degF] Sean Rodriguez MD Work Phone: [facility] 08-29-2022 08:12-0500 Body weight 61.24 kg Sean Rodriguez MD Work Phone: [facility] 08-29-2022 08:12-0500 Diastolic blood pressure 92 mm[Hg] Sean Rodriguez MD Work Phone: [facility] 08-29-2022 08:12-0500 Heart rate 74 /min Sean Rodriguez MD Work Phone: [facility] 08-29-2022 08:12-0500 SaO2% (BldA) [Mass fraction] 99 % Sean Rodriguez MD Work Phone: [facility] 08-29-2022 08:12-0500 Systolic blood pressure 144 mm[Hg] Sean Rodriguez MD Work Phone: [facility] 08-12-2022 08:19-0500 Body temperature 97.59 [degF] Injection Wstr Work Phone: [facility] 08-12-2022 08:19-0500 Body weight 60.78 kg Injection Wstr Work Phone: [facility] 08-12-2022 08:19-0500 Diastolic blood pressure 94 mm[Hg] Injection Wstr Work Phone: [facility] 08-12-2022 08:19-0500 Heart rate 80 /min Injection Wstr Work Phone: [facility] 08-12-2022 08:19-0500 Systolic blood pressure 132 mm[Hg] Injection Wstr Work Phone: [facility] 07-15-2022 08:20-0400 Body weight 60.51 kg Apollo Melo MD Work Phone: [facility] 07-15-2022 08:20-0400 Diastolic blood pressure 86 mm[Hg] Apollo Melo MD Work Phone: [facility] 07-15-2022 08:20-0400 Heart rate 74 /min Apollo Melo MD Work Phone: [facility] 07-15-2022 08:20-0400 Respiratory rate 16 /min Apollo Melo MD Work Phone: [facility] 07-15-2022 08:20-0400 SaO2% (BldA) [Mass fraction] 99 % Apollo Melo MD Work Phone: [facility] 07-15-2022 08:20-0400 Systolic blood pressure 126 mm[Hg] Apollo Melo MD Work Phone: [facility] 06-28-2022 09:30-0400 Body temperature 97.39 [degF] Sean Rodriguez MD Work Phone: [facility] 06-28-2022 09:30-0400 Body weight 61.46 kg Sean Rodriguez MD Work Phone: [facility] 06-28-2022 09:30-0400 Diastolic blood pressure 80 mm[Hg] Saen Rodriguez MD Work Phone: [facility] 06-28-2022 09:30-0400 Heart rate 82 /min Sean Rodriguez MD Work Phone: [facility] 06-28-2022 09:30-0400 Systolic blood pressure 118 mm[Hg] eSan Rodriguez MD Work Phone: [facility] 06-10-2022 10:00-0400 Body temperature 96.8 [degF] Treatment Wstr Work Phone: [facility] 06-10-2022 10:00-0400 Body weight 61.69 kg Treatment Wstr Work Phone: [facility] 06-10-2022 10:00-0400 Diastolic blood pressure 83 mm[Hg] Treatment Wstr Work Phone: [facility] 06-10-2022 10:00-0400 Heart rate 68 /min Treatment Wstr Work Phone: [facility] 06-10-2022 10:00-0400 Systolic blood pressure 145 mm[Hg] Treatment Wstr Work Phone: [facility] 05-20-2022 09:33-0400 Body temperature 97.5 [degF] Injection Wstr Work Phone: [facility] 05-20-2022 09:33-0400 Body weight 60.55 kg Injection Wstr Work Phone: [facility] 05-20-2022 09:33-0400 Diastolic blood pressure 62 mm[Hg] Injection Wstr Work Phone: [facility] 05-20-2022 09:33-0400 Heart rate 88 /min Injection Wstr Work Phone: [facility] 05-20-2022 09:33-0400 Systolic blood pressure 106 mm[Hg] Injection Wstr Work Phone: [facility] 04-04-2022 09:41-0400 Body temperature 97.59 [degF] Sean Rodriguez MD Work Phone: [facility] 04-04-2022 09:41-0400 Body weight 58.97 kg Sean Rodriguez MD Work Phone: [facility] 04-04-2022 09:41-0400 Diastolic blood pressure 81 mm[Hg] Sean Rodriguez MD Work Phone: [facility] 04-04-2022 09:41-0400 Heart rate 80 /min Sean Rodriguez MD Work Phone: [facility] 04-04-2022 09:41-0400 SaO2% (BldA) [Mass fraction] 96 % Sean Rodriguez MD Work Phone: [facility] 04-04-2022 09:41-0400 Systolic blood pressure 126 mm[Hg] Sean Rodriguez MD Work Phone: [facility] 03-18-2022 10:39-0400 Body temperature 97.5 [degF] Treatment Wstr Work Phone: [facility] 03-18-2022 10:39-0400 Body weight 59.65 kg Treatment Wstr Work Phone: [facility] 03-18-2022 10:39-0400 Diastolic blood pressure 77 mm[Hg] Treatment Wstr Work Phone: [facility] 03-18-2022 10:39-0400 Heart rate 75 /min Treatment Wstr Work Phone: [facility] 03-18-2022 10:39-0400 Respiratory rate 16 /min Treatment Wstr Work Phone: [facility] 03-18-2022 10:39-0400 SaO2% (BldA) [Mass fraction] 98 % Treatment Wstr Work Phone: [facility] 03-18-2022 10:39-0400 Systolic blood pressure 152 mm[Hg] Treatment Wstr Work Phone: [facility] 03-07-2022 08:47-0400 Body temperature 97.81 [degF] Sean Rodriguez MD Work Phone: [facility] 03-07-2022 08:47-0400 Body weight 59.88 kg Sean Rodriguez MD Work Phone: [facility] 03-07-2022 08:47-0400 Diastolic blood pressure 94 mm[Hg] Sean Rodriguez MD Work Phone: [facility] 03-07-2022 08:47-0400 Heart rate 63 /min Sean Rodriguez MD Work Phone: [facility] 03-07-2022 08:47-0400 SaO2% (BldA) [Mass fraction] 98 % Sean Rodriguez MD Work Phone: [facility] 03-07-2022 08:47-0400 Systolic blood pressure 158 mm[Hg] Sean Rodriguez MD Work Phone: [facility] 02-25-2022 10:00-0400 Body temperature 97.59 [degF] Injection Wstr Work Phone: [facility] 02-25-2022 10:00-0400 Body weight 58.51 kg Injection Wstr Work Phone: [facility] 02-25-2022 10:00-0400 Diastolic blood pressure 90 mm[Hg] Injection Wstr Work Phone: [facility] 02-25-2022 10:00-0400 Heart rate 59 /min Injection Wstr Work Phone: [facility] 02-25-2022 10:00-0400 Systolic blood pressure 144 mm[Hg] Injection Wstr Work Phone: [facility] 02-22-2022 09:41-0400 Diastolic blood pressure 90 mm[Hg] Amanda Corona DO Work Phone: [facility] 02-22-2022 09:41-0400 Systolic blood pressure 128 mm[Hg] Amanda Corona DO Work Phone: [facility] 02-22-2022 09:35-0400 Body height 171.5 cm Amanda Corona DO Work Phone: [facility] 02-22-2022 09:35-0400 Body weight 58.97 kg Amanda Corona DO Work Phone: [facility] 02-22-2022 09:35-0400 Heart rate 73 /min Amanda Corona DO Work Phone: [facility] 02-22-2022 09:35-0400 SaO2% (BldA) [Mass fraction] 99 % Amanda Corona DO Work Phone: [facility] 01-11-2022 08:08-0400 Body weight 60.65 kg Apollo Melo MD Work Phone: [facility] 01-11-2022 08:08-0400 Diastolic blood pressure 74 mm[Hg] Apollo Melo MD Work Phone: [facility] 01-11-2022 08:08-0400 Heart rate 78 /min Apollo Melo MD Work Phone: [facility] 01-11-2022 08:08-0400 Respiratory rate 16 /min Apollo Melo MD Work Phone: [facility] 01-11-2022 08:08-0400 Systolic blood pressure 122 mm[Hg] Apollo Melo MD Work Phone: [facility] 12-24-2021 12:25-0400 Diastolic blood pressure 79 mm[Hg] Reena Kenny MD Work Phone: [facility] 12-24-2021 12:25-0400 Heart rate 80 /min Reena Kenny MD Work Phone: [facility] 12-24-2021 12:25-0400 Respiratory rate 18 /min Reena Kenny MD Work Phone: [facility] 12-24-2021 12:25-0400 SaO2% (BldA) [Mass fraction] 98 % Reena Kenny MD Work Phone: [facility] 12-24-2021 12:25-0400 Systolic blood pressure 128 mm[Hg] Reena Kenny MD Work Phone: [facility] 12-24-2021 10:51-0400 Body temperature 96.6 [degF] Reena Kenny MD Work Phone: [facility] 12-24-2021 10:51-0400 Body weight 60.1 kg Reena Kenny MD Work Phone: [facility] 12-13-2021 08:54-0400 Body weight 60.1 kg Lab/Port Wstr Work Phone: [facility] 07-08-2020 16:53-0400 Body Temperature 97.81 [degF] [facility] [place] [place] 07-08-2020 16:53-0400 BP Diastolic 86 mm[Hg] [facility] [place] , [place] 07-08-2020 16:53-0400 BP Systolic 152 mm[Hg] [facility] , [place] 07-08-2020 16:53-0400 Pulse (Heart Rate) 86 /min [facility] [place] 07-08-2020 16:53-0400 Pulse Oximetry 96 % [facility] [place] 07-08-2020 16:53-0400 Respiratory Rate 16 /min [facility], [place] 07-07-2020 21:11-0400 BMI (Body Mass Index) 20.5 kg/m2 [facility] 07-07-2020 21:11-0400 Body weight 61.15 kg [facility] [place] 07-07-2020 21:11-0400 Height 172.7 cm [facility] [place] 03-29-2017 14:56-0400 BMI (Body Mass Index) 21.63 kg/m2 Panda Ba MD [facility] [employer] Work Phone: 03-29-2017 14:56-0400 Body Temperature 97.2 [degF] Panda Ba MD [facility] [employer] Work Phone: 03-29-2017 14:56-0400 BP Diastolic 84 mm[Hg] Panda Ba MD [facility] [employer] Work Phone: 03-29-2017 14:56-0400 BP Systolic 128 mm[Hg] Panda Ba MD [facility] [employer] Work Phone: 03-29-2017 14:56-0400 Height 171.45 cm Panda Ba MD [facility] [employer] Work Phone: 03-29-2017 14:56-0400 Pulse (Heart Rate) 78 /min Panda Ba MD [facility] [employer] Work Phone: 03-29-2017 14:56-0400 Respiratory Rate 18 /min Panda Ba MD [facility] [employer] Work Phone: 03-29-2017 14:56-0400 Weight 63.59 kg Panda Ba MD [facility] Work Phone: Encounters Encounter Date [...] Start: 02-17-2025 End: 02-17-2025 ambulatory APOLLO MELO Facility:[facility] Comment on above: CT scan Start: 02-17-2025 End: 02-17-2025 ambulatory FRANCISCO JAVIER PEREZ Facility:[facility] Start: 01-14-2025 End: 01-14-2025 Office outpatient visit 25 minutes Apollo Melo MD Work Phone: [facility] Comment on above: Hyperlipidemia, unsp ecified hyperlipidemia type (Primary Dx); Tobacco use disorder; Chronic obstructive pulmonary disease, unspecified COPD type (HCC); Prostate cancer (HCC); PAD (peripheral artery disease); Diffuse large B-cell lymphoma of intra-abdominal lymph nodes (HCC); Urinary incontinence, unspecified type; Elevated glucose; Malignant neoplasm metastatic to bone (HCC) Start: 01-14-2025 End: 01-14-2025 ambulatory APOLLO MELO Facility:[facility] Start: 01-07-2025 ambulatory APOLLO MELO Facil ity:[facility] Start: 01-07-2025 End: 01-07-2025 Subsequent hospital visit by physician Ida [facility] ([facility]) Work Phone: [...] Start: 12-17-2024 End: 12-17-2024 ambulatory Lab/Port [facility] Wstr Work Phone: Hematology/Oncology Comment on above: Prostate cancer (HCC ) (Primary Dx); Screening for nephropathy; Malignant neoplasm metastatic to bone (HCC) Start: 12-06-2024 End: 12-06-2024 ambulatory Apollo Melo MD [facility] [employer] Start: 12-06-2024 End: 12-06-2024 E-mail encounter from caregiver [facility] Provider [facility] Start: 12-06-2024 End: 12-06-2024 Patient encounter procedure Apollo Melo MD Work Phone: [facility] [employer] Comment on above: Population Health Na vigation Outreach (Buddy Capone ) Scheduling needs Start: 11-26-2024 End: 11-26-2024 Patient encounter procedure Amanda Corona DO Work Phone: Vascular Surgery Comment on above: Peripheral vascular disease (HCC) (Primary Dx); Screening for nephropathy; Asymptomatic carotid artery stenosis, unspecified laterality Start: 11-26-2024 End: 11-26-2024 ambulatory APOLLO MELO Facility:[facility] Start: 11-14-2024 End: 11-14-2024 ambulatory Apollo Melo MD Work Phone: [facility] [place] Comment on above: Incontinence Start: 09-30-2024 End: 10-01-2024 Telephone encounter Lisa CARIAS Hematology/Oncology Comment on above: Xtandi Refill Refill Request Start: 09-26-2024 End: 09-26-2024 ambulatory Treatment Rm 14 [facility] Work Phone: Hematology/Oncology Comment on above: Prostate cancer (HCC ) (Primary Dx); Diffuse large B-cell lymphoma of intra-abdominal lymph nodes (HCC); Lesion of liver; Malignant neoplasm metastatic to bone (HCC) Prostate cancer (HCC ) (Primary Dx) Start: 09-26-2024 End: 09-26-2024 Patient encounter procedure Francisco Javier Perez MD Work Phone: Hematology/Oncology Start: 09-24-2024 End: 09-24-2024 ambulatory Lab/Port [facility] Work Phone: Hematology/Oncology Comment on above: Malignant neoplasm m etastatic to bone (HCC) Start: 09-18-2024 End: 09-18-2024 Telephone encounter Lisa CARIAS Hematology/Oncology Comment on above: [address] [facility] [facility] [employer] Start: 09-12-2024 End: 09-19-2024 Telephone encounter Apollo Melo MD Work Phone: Family Medicine [place] Comment on above: Medication Problem Start: 09-03-2024 End: 09-03-2024 Refill Amanda Croona DO Work Phone: Vascular Surgery Comment on above: Refill Request Start: 07-26-2024 End: 07-26-2024 ambulatory Pulm Lab [facility] Work Phone: [facility] Comment on above: Spirometry Start: 07-26-2024 End: 07-26-2024 Patient encounter procedure Pulm Lab [facility] Work Phone: PULM LAB [facility] Start: 07-16-2024 End: 07-16-2024 ambulatory APOLLO MELO Facility:[facility] Start: 07-16-2024 End: 07-16-2024 Patient encounter procedure Apollo Melo MD Work Phone: [facility] [place] Comment on above: Chronic obstructive pulmonary disease, [...] Patient encounter procedure Treatment Rm 15 [facility] Work Phone: Hematology/Oncology Start: 07-02-2024 End: 07-02-2024 ambulatory Lab/Port [facility] Work Phone: Hematology/Oncology Comment on above: Malignant neoplasm m etastatic to bone (HCC) Start: 06-28-2024 End: 06-28-2024 Refill Francisco Javier Perez MD Work Phone: Hematology/Oncology Comment on above: Refill Request Start: 04-11-2024 End: 04-11-2024 [facility] Comment on above: Prostate cancer (HCC ) (Primary Dx); Malignant neoplasm metastatic to bone (HCC); Diffuse large B-cell lymphoma of intra-abdominal lymph nodes (HCC); Lesion of liver Start: 04-11-2024 End: 04-11-2024 Patient encounter procedure Treatment Rm 16 [facility] Work Phone: Hematology/Oncology Start: 04-09-2024 End: 04-09-2024 ambulatory Lab/Port [facility] Work Phone: Hematology/Oncology Comment on above: Malignant neoplasm m etastatic to bone (HCC) (Primary Dx); Elevated glucose Start: 04-06-2024 ambulatory Francisco Javier pearson MD Work Phone: Hematology/Oncology Start: 04-06-2024 Patient encounter procedure Francisco Javier Perez MD Work Phone: Hematology/Oncology Comment on above: Monday's appointm ent Start: 01-30-2024 Telephone encounter Apollo herbert MD Work Phone: [address] [place] [address] Start: 01-26-2024 End: 01-26-2024 Patient encounter procedure Apollo Melo MD Work Phone: [facility] Comment on above: Chronic obstructive pulmonary disease, [...] End: 01-18-2024 ambulatory Treatment Rm 13 [facility] Work Phone: Hematology/Oncology Comment on above: Prostate cancer (HCC ) (Primary Dx); Diffuse large B-cell lymphoma of intra-abdominal lymph nodes (HCC); Lesion of liver; Malignant neoplasm metastatic to bone (HCC) Start: 01-17-2024 End: 01-17-2024 ambulatory Lab/Port [facility] Work Phone: Hematology/Oncology [...] procedure Francisco Javier Perez MD Work Phone: [facility] Start: 10-27-2023 End: 10-27-2023 ambulatory Lab/Port [facility] Work Phone: Hematology/Oncology Comment on above: Malignant neoplasm m etastatic to bone (HCC) (Primary Dx) Malignant neoplasm m etastatic to bone (HCC) (Primary Dx); Prostate cancer (HCC); Diffuse large B-cell lymphoma of intra-abdominal lymph nodes (HCC); Lesion of liver Start: 08-18-2023 End: 08-18-2023 ambulatory Lab/Port [facility] Work Phone: Hematology/Oncology Comment on above: Malignant neoplasm m etastatic to bone (HCC) (Primary Dx) Start: 08-02-2023 End: 08-02-2023 ambulatory Lab/Port [facility] Work Phone: Hematology/Oncology Comment on above: Diffuse large B-cell lymphoma of intra-abdominal lymph nodes (HCC); Prostate cancer (HCC); Malignant neoplasm metastatic to bone (HCC); Langerhans cell histiocytoses (HCC) Start: 07-21-2023 End: 07-21-2023 ambulatory Lab/Port [facility] Work Phone: Hematology/Oncology [...] encounter procedure Apollo Melo MD Work Phone: [facility] Comment on above: Chronic obstructive pulmonary disease, [...] use disorder Start: 06-29-2023 Refill Chavez ONEAL RN.[facility] Work Phone: [facility] Comment on above: Refill Request Start: 05-19-2023 Telephone encounter Maliha henderson RN Work Phone: Hematology/Oncology Comment on above: Care Coordination (F ollow Up Note ) Start: 05-16-2023 Telephone encounter Cydney Wolf APRN.WARP TYING MACHINE TENDER Work Phone: [email or web address] Comment on above: Results Start: 05-16-2023 ambulatory APOLLO Ifeanyi MELO Facil ity:[facility] Start: 05-16-2023 End: 05-16-2023 Subsequent hospital visit by physician [facility] Comment on above: Pain of right thigh [M79.651] Start: 05-16-2023 End: 05-16-2023 Subsequent hospital visit by physician Xr [facility] [place] Work Phone: Radiology Comment on above: Pain of right thigh [M79.651] Start: 05-16-2023 End: 05-16-2023 Patient encounter procedure Cydney Wolf APRN.WARP TYING MACHINE TENDER Work Phone: [facility] Comment on above: Pain of right thigh (Primary Dx) Start: 05-12-2023 End: 05-12-2023 ambulatory Treatment Rm 13 [facility] [employer] Work Phone: Hematology/Oncology Comment on above: 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); Prostate cancer (HCC); Malignant neoplasm metastatic to bone (HCC); Langerhans cell histiocytoses (HCC) Start: 05-11-2023 End: 05-11-2023 ambulatory Lab/Port [facility] [employer] Work Phone: Hematology/Oncology Comment on above: Diffuse large B-cell lymphoma of intra-abdominal lymph nodes (HCC); Prostate cancer (HCC); Malignant neoplasm metastatic to bone (HCC); Langerhans cell histiocytoses (HCC) Start: 04-28-2023 End: 04-28-2023 ambulatory Injection [facility] [employer] Work Phone: Hematology/Oncology Comment on above: 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); Lesion of liver; Prostate cancer (HCC) Prostate cancer (HCC ) Start: 03-02-2023 End: 03-02-2023 ambulatory Lab/Port [facility] Work Phone: Hematology/Oncology Comment on above: Malignant neoplasm m etastatic to bone (HCC) (Primary Dx); Diffuse large B-cell lymphoma of intra-abdominal lymph nodes (HCC); Prostate cancer (HCC) Start: 03-02-2023 End: 03-02-2023 Subsequent hospital visit by physician Ct [facility] (I-Stat) Work Phone: [...] Start: 02-16-2023 End: 02-16-2023 ambulatory Lab/Port [facility] Work Phone: Hematology/Oncology [...] RAL ANTI-CANCER AGENTS EDUCATION) Start: 11-30-2022 ambulatory [facility] Start: 11-30-2022 Patient encounter [facility] Comment on above: SPP Oral [...] encounter procedure Lisha Ernandez MD Work Phone: [facility] Start: 11-25-2022 End: 11-25-2022 ambulatory Treatment Rm 12 [facility] Work Phone: Hematology/Oncology Comment on above: Bone metastasis (HCC ) (Primary Dx); Prostate cancer (HCC) Start: 11-23-2022 Orders Only Lisha Ernandez MD Work Phone: Hematology/Oncology Comment on above: 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); Prostate cancer (HCC); Bone metastasis (HCC) Start: 11-04-2022 End: 11-04-2022 ambulatory Lab/Port [facility] Work Phone: Hematology/Oncology Comment on above: Prostate cancer (HCC ) (Primary Dx) 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); Lesion of liver; Prostate cancer (HCC) Start: 09-19-2022 ambulatory Apollo serrano MD Work Phone: [facility] [place] Comment on above: Incontinence medicat ion Start: 09-02-2022 End: 09-02-2022 ambulatory Treatment Rm 12 [facility] Work Phone: Hematology/Oncology Comment on above: Bone metastasis (HCC ) (Primary Dx); Prostate cancer (HCC) Start: 09-01-2022 End: 09-01-2022 ambulatory Lab/Port [facility] Work Phone: Hematology/Oncology [...] encounter procedure Sean Rodriguez MD Work Phone: [facility] Start: 08-26-2022 Refill Amanda Smallwood Work Phone: Vascular Surgery Comment on above: Refill Request Start: 08-16-2022 End: 08-16-2022 Subsequent hospital visit by physician [facility] ([facility]) Work Phone: Cat Scan Comment on above: Diffuse large B-cell lymphoma of intra-abdominal lymph nodes (HCC) [C83.33] Start: 08-16-2022 End: 08-16-2022 ambulatory Lab/Port [facility] Work Phone: Hematology/Oncology Comment on above: 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) Start: 08-12-2022 End: 08-12-2022 ambulatory Lab/Port [facility] Work Phone: Hematology/Oncology [...] Apollo serrano MD Work Phone: [facility] [place] Comment on above: Breo Start: 06-29-2022 ambulatory [place] MAT MACHINE OPERATOR.WARP TYING MACHINE TENDER Work Phone: Pulmonary Medicine Start: 06-28-2022 End: 06-28-2022 Patient encounter procedure Sean Rodriguez MD Work Phone: [facility] Start: 06-28-2022 End: 06-28-2022 ambulatory Lab/Port [facility] Work Phone: Hematology/Oncology Comment on above: Diffuse large B-cell lymphoma of intra-abdominal lymph nodes (HCC); Bone metastasis (HCC); Prostate cancer (HCC) 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); Bone metastasis (HCC); Prostate cancer (HCC); Langerhans cell histiocytoses (HCC) Start: 06-10-2022 End: 06-10-2022 ambulatory Treatment Rm 12 [facility] Work Phone: Hematology/Oncology [...] Start: 05-20-2022 End: 05-20-2022 ambulatory Lab/Port [facility] Work Phone: Hematology/Oncology [...] neoplasm of prostate (HCC) Start: 05-04-2022 ambulatory Aopllo serrano MD Work Phone: Family [facility] [place] Comment on above: insurance coverage f or inhaler Start: 05-04-2022 E-mail encounter fro m caregiver Apollo Melo MD Work Phone: [facility] [place] Start: 05-03-2022 Telephone encounter Apollo herbert MD Work Phone: Family Medicine [place] Comment on above: Insurance Authorizat ion (Fluticasone Furoate ) Start: 04-08-2022 Telephone encounter Maliha henderson RN Work Phone: Hematology/Oncology Comment on above: Radiopharmacist - O ther (ORAL ANTI-CANCER AGENTS FOLLOW-UP PHONE CALL) Start: 04-04-2022 End: 04-04-2022 Patient encounter procedure Sean Rodriguez MD Work Phone: [facility] Start: 04-04-2022 End: 04-04-2022 ambulatory Lab/Port [facility] Work Phone: Hematology/Oncology Comment on above: Bone metastasis (HCC ) (Primary Dx); Diffuse large B-cell lymphoma of intra-abdominal lymph nodes (HCC); Malignant neoplasm of prostate (HCC) 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); Bone metastasis (HCC); Prostate cancer (HCC) Start: 03-28-2022 ambulatory Jaqueline Gonzalez [facility] Start: 03-28-2022 Follow-up encounter Jaquelineisreal Gonzalez [facility]Oncology Comment on above: Patient Education (Z ytiga follow-up oral chemo education & medication reconciliation) Start: 03-18-2022 Telephone encounter Maliha henderson RN Work Phone: Hematology/Oncology Comment on above: Care Coordination (O RAL ANTI-CANCER AGENTS EDUCATION) Refill Request Start: 03-18-2022 End: 03-18-2022 ambulatory Treatment Rm 12 [facility] Work Phone: Hematology/Oncology Comment on above: 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); Malignant neoplasm of prostate (HCC); Bone metastasis (HCC) Start: 03-07-2022 End: 03-07-2022 [facility] Comment on above: Bone metastasis (HCC ) (Primary Dx); Diffuse large B-cell lymphoma of intra-abdominal lymph nodes (HCC); Malignant neoplasm of prostate (HCC) Start: 03-07-2022 End: 03-07-2022 Patient encounter procedure Geoffrey Taylor [facility] Comment on above: SPP Oral Oncology/he matology - Treatment Referral (Abiraterone); Insurance Authorization (Pending PA submission) Start: 03-04-2022 End: 03-04-2022 Subsequent hospital visit by physician [facility] Work Phone: Nuclear Medicine Comment on above: Malignant neoplasm o f prostate (HCC) [C61] Start: 03-04-2022 End: 03-04-2022 ambulatory Lab/Port [facility] Work Phone: Hematology/Oncology Comment on above: Diffuse large B-cell lymphoma of intra-abdominal lymph nodes (HCC); Malignant neoplasm of prostate (HCC); Bone metastasis (HCC) Start: 03-04-2022 End: 03-04-2022 Subsequent hospital visit by physician Saida Nm [facility] Work Phone: Nuclear Medicine Comment on above: Malignant neoplasm o f prostate (HCC) [C61] Start: 02-25-2022 End: 02-25-2022 ambulatory Injection [facility] [employer] Work Phone: Hematology/Oncology Comment on above: 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); Lesion of liver; Malignant neoplasm of prostate (HCC) Incontinence medicat ion Start: 02-22-2022 End: 02-22-2022 Patient encounter procedure Amanda Corona DO Work Phone: Vascular Surgery Comment on above: Peripheral arterial disease (HCC) (Primary Dx) Start: 01-11-2022 End: 01-11-2022 Patient encounter procedure Apollo Melo MD Work Phone: [facility] Comment on above: Chronic obstructive pulmonary disease, [...] Start: 12-13-2021 End: 12-13-2021 ambulatory Lab/Port [facility] Work Phone: Hematology/Oncology Comment on above: Malignant neoplasm o f prostate (HCC) (Primary Dx) Start: 11-16-2021 Telephone encounter Reena Danielson MD Work Phone: General Surgery Comment on above: 12-24-2021 Colon [facility] Start: 05-10-2021 End: 05-10-2021 Subsequent hospital visit by physician Xr [facility] [place] Work Phone: Radiology [...] Dup-scan xtr veins unilateral/limited study Cydney Wolf MAT MACHINE OPERATOR.WARP TYING MACHINE TENDER Work Phone: Start: 05-16-2023 Radiologic examinati on femur minimum 2 views Cydney Wolf APRN.WARP TYING MACHINE TENDER Work Phone: Start: 05-11-2023 Basic metabolic pane [...] exam ches t 2 views Nury Boyd MAT MACHINE OPERATOR.WARP TYING MACHINE TENDER Work Phone: Start: 07-08-2020 Ct thorax w/contrast [...] - S ilan or Plasma Chavez Bernal MAT MACHINE OPERATOR.WARP TYING MACHINE TENDER Work Phone: Plan of Treatment Date Care Activity Detail Author Start: 04-28-2028 PROSTATE CANCER SCRE ENING DISCUSSION PROSTATE CANCER SCREENING DISCUSSION [facility] Start: 03-02-2028 PROSTATE CANCER SCRE ENING DISCUSSION PROSTATE CANCER SCREENING DISCUSSION [facility] Start: 02-18-2028 Diabetes Screening Diabetes Screenin g [facility] Start: 01-28-2028 PROSTATE CANCER SCRE ENING DISCUSSION PROSTATE CANCER SCREENING DISCUSSION [facility] Start: 12-18-2027 Diabetes Screening Diabetes Screenin g [facility] Start: 11-25-2027 PROSTATE CANCER SCRE ENING DISCUSSION PROSTATE CANCER SCREENING DISCUSSION [facility] Start: 09-24-2027 Diabetes Screening Diabetes Screenin g [facility] Start: 08-12-2027 PROSTATE CANCER SCRE ENING DISCUSSION PROSTATE CANCER SCREENING DISCUSSION [facility] Start: 07-02-2027 Diabetes Screening Diabetes Screenin g [facility] Start: 06-28-2027 PROSTATE CANCER SCRE ENING DISCUSSION PROSTATE CANCER SCREENING DISCUSSION [facility] Start: 05-20-2027 PROSTATE CANCER SCRE ENING DISCUSSION PROSTATE CANCER SCREENING DISCUSSION [facility] Start: 04-09-2027 Diabetes Screening Diabetes Screenin g [facility] Start: 04-04-2027 PROSTATE CANCER SCRE ENING DISCUSSION PROSTATE CANCER SCREENING DISCUSSION [facility] Start: 03-18-2027 PROSTATE CANCER SCRE ENING DISCUSSION PROSTATE CANCER SCREENING DISCUSSION [facility] Start: 03-04-2027 PROSTATE CANCER SCRE ENING DISCUSSION PROSTATE CANCER SCREENING DISCUSSION [facility] Start: 01-16-2027 Diabetes Screening Diabetes Screenin g [facility] Start: 12-24-2026 Colonoscopy COLONOSCOPY [facility] Start: 12-24-2026 COLORECTAL CANCER SCREENING COLORECTAL CANCER SCREENING [facility] Start: 12-24-2026 Screening for malign ant neoplasm of colon [facility] Start: 11-15-2026 PROSTATE CANCER SCRE ENING DISCUSSION PROSTATE CANCER SCREENING DISCUSSION [facility] Start: 10-27-2026 Diabetes Screening Diabetes Screenin g [facility] Start: 08-02-2026 Diabetes Screening Diabetes Screenin g [facility] Start: 07-21-2026 Diabetes Screening Diabetes Screenin g [facility] Start: 05-11-2026 DIABETES SCREEN DIABETES SCREEN [facility] Start: 05-11-2026 Diabetes Screening Diabetes Screenin g [facility] Start: 04-28-2026 DIABETES SCREEN DIABETES SCREEN [facility] Start: 03-02-2026 DIABETES SCREEN DIABETES SCREEN [facility] Start: 02-16-2026 DIABETES SCREEN DIABETES SCREEN [facility] Start: 01-27-2026 DIABETES SCREEN DIABETES SCREEN [facility] Start: 01-14-2026 Annual PCP Team Lathe Mechanic scot Disease Visit Annual PCP Team Chronic Disease Visit [facility] Start: 01-14-2026 Covid-19 Vaccine () Covid-19 Vaccine () [facility] Comment on above: Postponed from 05/12 (Declined at this time) Start: 11-24-2025 DIABETES SCREEN DIABETES SCREEN [facility] Start: 09-01-2025 DIABETES SCREEN DIABETES SCREEN [facility] Start: 08-12-2025 DIABETES SCREEN DIABETES SCREEN [facility] Start: 07-17-2025 End: 10-16-2025 Comprehensive metabolic 2000 panel - Serum or Plasma COMPREHENSIVE METABOLIC PANEL Lab Routine Hyperlipidemia, unspecified hyperlipidemia type PAD (peripheral artery disease) Expected: 07/17/2025 (Approximate), Expires: 10/16/2025 [facility] Comment on above: Expected: 07/17/2025 (Approximate), Expires: 10/16/2025 Start: 07-17-2025 End: 10-16-2025 Hemoglobin A1c in Blood HEMOGLOBIN A1C Lab Routine Elevated glucose Expected: 07/17/2025 (Approximate), Expires: 10/16/2025 [facility] Comment on above: Expected: 07/17/2025 (Approximate), Expires: 10/16/2025 Start: 07-17-2025 End: 10-16-2025 Lipid 1996 panel - Serum or Plasma LIPID PANEL, FASTING Lab Routine Hyperlipidemia, unspecified hyperlipidemia type PAD (peripheral artery disease) Expected: 07/17/2025 (Approximate), Expires: 10/16/2025 [facility] Work Phone: Comment on above: Expected: 07/17/2025 (Approximate), Expires: 10/16/2025 Start: 07-16-2025 Annual PCP Team Lathe Mechanic scot Disease Visit Annual PCP Team Chronic Disease Visit [facility] Start: 07-16-2025 Screening for malign ant neoplasm of lung Lung Cancer Screening [facility] Comment on above: Postponed from 07/10 (Declined at this time) Start: 07-10-2025 End: 07-10-2025 Patient encounter procedure 07/10/2025 8:40 AM EDT Office Visit Family [facility] [address] [place] [address] Apollo Melo MD [address] [place], [place] [phone] 6 month follow up [facility] Comment on above: 6 month follow up Start: 06-28-2025 DIABETES SCREEN DIABETES SCREEN [facility] Start: 06-10-2025 [facility]ABETES SCREEN [facility] Start: 05-20-2025 DIABETES SCREEN DIABETES SCREEN [facility] Start: 04-04-2025 DIABETES SCREEN DIABETES SCREEN [facility] Start: 03-18-2025 DIABETES SCREEN [facility]CREEN [facility] Start: 03-13-2025 End: 03-13-2025 ambulatory Hematology/Oncology Comment on above: OV(PORT)LAB 03/11/JIN STEWART TODAY* pt requests lab day prior to OV- no mon Start: 03-11-2025 End: 03-11-2025 ambulatory Hematology/Oncology Comment on above: (SO)CMP/PSA(PORT)* (SO)CMP(S)/PSA(PORT) * Start: 03-04-2025 DIABETES SCREEN DIABETES SCREEN [facility] Start: 02-18-2025 [facility] Start: 02-18-2025 Hospital admission, emergency, from emergency room, medical nature [facility] Start: 02-18-2025 [facility] Start: 02-18-2025 Catheterization of l eft heart [facility] Start: 02-17-2025 End: 02-17-2025 Patient encounter procedure Radiology Comment on above: Peripheral vascular disease [I73.9] Asymptomatic carotid artery stenosis, unspecified laterality [I65.29] Follow up Start: 01-25-2025 Annual PCP Team Lathe Mechanic scot Disease Visit Annual PCP Team Chronic Disease Visit [facility] Start: 01-25-2025 Anxiety Screening Anxiety Screening [facility] Start: 01-25-2025 Depression Screening Depression Scre ening [facility] Start: 01-14-2025 End: 04-15-2025 Hemoglobin A1c in Blood HEMOGLOBIN A1C Lab Routine Elevated glucose Expected: 01/14/2025 (Approximate), Expires: 04/15/2025 [facility] Comment on above: Expected: 01/14/2025 (Approximate), Expires: 04/15/2025 Start: 01-14-2025 End: 01-14-2025 Patient encounter procedure 01/14/2025 8:40 AM EDT Office Visit [facility] [address] [place], [place] [address] Apollo Melo MD [address] [place], [place] [phone] 6 mo f/u [facility] Comment on above: 6 mo f/u Start: 01-13-2025 End: 04-14-2025 Comprehensive metabolic 2000 panel - Serum or Plasma COMPREHENSIVE METABOLIC PANEL Lab Routine Hyperlipidemia, unspecified hyperlipidemia type Elevated glucose Expected: 01/13/2025 (Approximate), Expires: 04/14/2025 [facility] Comment on above: Expected: 01/13/2025 (Approximate), Expires: 04/14/2025 Start: 01-13-2025 Covid-19 Vaccine () Covid-19 Vaccine () [facility] Comment on above: Postponed from 05/12 (Declined at this time) Start: 01-13-2025 End: 04-14-2025 Hemoglobin A1c in Blood HEMOGLOBIN A1C Lab Routine Elevated glucose Expected: 01/13/2025 (Approximate), Expires: 04/14/2025 [facility] Comment on above: Expected: 01/13/2025 (Approximate), Expires: 04/14/2025 Start: 01-13-2025 End: 04-14-2025 Lipid 1996 panel - Serum or Plasma LIPID PANEL BASIC Lab Routine Hyperlipidemia, unspecified hyperlipidemia type Elevated glucose Expected: 01/13/2025 (Approximate), Expires: 04/14/2025 [facility] Comment on above: Expected: 01/13/2025 (Approximate), Expires: 04/14/2025 Start: 01-13-2025 RSV Vaccine (1 - Ris k 60-74 years 1-dose series) RSV Vaccine (1 - Risk 60-74 years 1-dose series) [facility] Comment on above: Postponed from 04/22 (Insurance Coverage) Start: 01-13-2025 Shingrix Vaccine (1 of 2) Montero grix Vaccine (1 of 2) [facility] Comment on above: Postponed from 04/22 (Declined [...] End: 12-17-2024 ambulatory 12/17/2024 7:45 AM EDT [facility] Hematology/Oncology [address] [place] [address] Wstr, Lab/[place] [facility] [address] [place] [address] (SO)CMP/PSA(PORT)* Hematology/Oncology Comment on above: (SO)CMP/PSA(PORT)* Start: 11-26-2024 End: 02-25-2025 CREATININE BLD CREATININE BLD Lab Routine Screening for nephropathy Expected: 11/26/2024, Expires: 02/25/2025 [facility] Comment on above: Expected: 11/26/2024 , Expires: 02/25/2025 Start: 11-26-2024 End: 11-26-2024 Patient encounter procedure Vasculary Surgery Comment on above: Peripheral arterial disease (HCC) [I73.9] 1 year follow up aft er testing Start: 11-15-2024 DIABETES SCREEN DIABETES SCREEN [facility] Start: 09-26-2024 End: 09-26-2024 ambulatory Hematology/Oncology Comment on above: OV(PORT)LAB ATMENT TODAY* pt requests lab day prior to OV- no mon Start: 09-24-2024 End: 09-24-2024 ambulatory Hematology/Oncology Comment on above: (SO)CMP/PSA(PORT)/OV &ZOMETA 07/04* (SO)CMP/PSA(PORT)* Start: 09-11-2024 Advance Directive Discussion Advance Directive Discussion [facility] Start: 07-30-2024 End: 07-30-2024 Patient encounter procedure 07/30/2024 3:20 PM EST Office Visit Family [facility] [address] [place], [place] [phone] Apollo Melo MD [address] [place], [place] [phone] 6 month follow up Family [facility] Comment on above: 6 month follow up Start: 07-26-2024 End: 07-26-2024 Procedure 07/26/2024 8:00 AM EST Procedure PULM LAB [facility]STR [address] [place] [address] Wstr, Pulm Lab [facility] [address] [place] [address] Chronic obstructive pulmonary disease, unspecified COPD type (HCC) [J44.9]; Tobacco use disorder [F17.200] PULM LAB [facility] Comment on above: Chronic obstructive pulmonary disease, unspecified COPD type (HCC) [J44.9]; Tobacco use disorder [F17.200] Start: 07-17-2024 Annual PCP Team Lathe Mechanic scot Disease Visit Annual PCP Team Chronic Disease Visit [facility] Start: 07-16-2024 End: 07-16-2024 Patient encounter procedure 07/16/2024 9:40 AM EST Office Visit Family [facility] [address] [facility], [place] [phone] Apollo Melo MD [address] [place], [place] [phone] 6 month follow up (R/S from [facility] out on 07/30/24) Family [facility] Comment on above: 6 month follow up (R /S from [facility] out on 07/30/24) Start: 07-04-2024 End: 07-04-2024 ambulatory Hematology/Oncology Comment on above: OV(PORT)LAB 07/02/TR EATMENT TODAY* pt requests lab day prior to OV- no wed 2ND chairside OV(PORT)LA B 07/02/TREATMENT TODAY* pt requests lab day prior to OV- no wed Start: 07-02-2024 End: 07-02-2024 ambulatory 07/02/2024 7:45 AM EDT [facility] Center Hematology/Oncology [address] [place], [place] [phone] Wstr, Lab/[place] [facility] [address] [place], [place] [phone] (SO)CMP/PSA(PORT)/OV&ZOM ETA 07/04* Hematology/Oncology Comment on above: (SO)CMP/PSA(PORT)/OV &ZOMETA 07/04* Start: 05-12-2024 Covid-19 Vaccine ( season) Covid-19 Vaccine ( season) [facility] Start: 05-12-2024 Covid-19 Vaccine ( season) Covid-19 Vaccine ( season) [facility] Start: 05-12-2024 Influenza vaccination Influenza Vacc ine (#1) [facility] Start: 04-11-2024 End: 04-11-2024 ambulatory 04/11/2024 9:00 AM EDT Visit (SP) Office Hematology/Oncology [address] [place], [place] [phone] 2ND Hematology/Oncology Comment on above: 2ND Start: 04-10-2024 End: 04-10-2024 ambulatory Hematology/Oncology Comment on above: OV(PORT)LAB 04/09/MO ATMENT TODAY* pt requests lab day prior to OV Q3MO ZOMETA(PORT)Q3M O LUPRON/LAB 04/09,OV TODAY/AUTH EXP?* Start: 04-09-2024 End: 07-09-2024 [address] in Blood [facility] Work Phone: Comment on above: Expected: 04/09/2024 (Approximate), Expires: 07/09/2024 Start: 04-09-2024 End: 04-09-2024 ambulatory Hematology/Oncology Comment on above: CMP(S)/PSA(PORT)OV * (SO)CMP/PSA(PORT)/ZO META 04/11* no wed Start: 01-26-2024 End: 01-26-2024 Patient encounter procedure 01/26/2024 3:20 PM EDT Office Visit Family [facility] [address] [place], [place] [phone] Apollo Melo MD [address] [place] [address] 6 mo f/u [facility] Comment on above: 6 mo f/u Start: 01-18-2024 End: 01-18-2024 ambulatory Hematology/Oncology Comment on above: OV(PORT)LAB 01/16/JIN TMENT TODAY* pt requests lab day prior to OV Q3MO ZOMETA(PORT)Q3M O LUPRON/AUTH EXP 04/09/24/LAB /8&OV TODAY/AUTH EXP?* Start: 01-14-2024 ANNUAL PCP TEAM MECHANICAL MAINTENANCE TECHNICIAN SCOT DISEASE VISIT ANNUAL PCP TEAM CHRONIC DISEASE VISIT [facility] Start: 12-26-2023 Urine microalbumin profile [facility] Start: 09-12-2023 Covid-19 Vaccine () Covid-19 Vaccine () [facility] Start: 09-11-2023 Advance Directive Discussion Advance Directive Discussion [facility] Start: 09-11-2023 Behavioral Health Screening Behavioral Health Screening [facility] Start: 09-11-2023 Depression Assessment Depression Ass essment [facility] Start: 07-21-2023 End: 10-20-2023 Prostate specific Ag [Mass/volume] in Serum or Plasma [facility] Work Phone: Comment on above: Expected: 07/21/2023 , Expires: 10/20/2023 Start: 07-15-2023 ANNUAL PCP TEAM MECHANICAL MAINTENANCE TECHNICIAN SCOT DISEASE VISIT ANNUAL PCP TEAM CHRONIC DISEASE VISIT [facility] Start: 05-12-2023 Covid-19 Vaccine () Covid-19 Vaccine () [facility] Start: 05-12-2023 Influenza vaccination INFLUENZA (#1) [facility] Start: 03-02-2023 End: 05-02-2023 CBC W Auto Differential panel - Blood CBC + DIFF Lab STAT Diffuse large B-cell lymphoma of intra-abdominal lymph nodes (HCC) Prostate cancer (HCC) Malignant neoplasm metastatic to bone (HCC) Expected: 03/02/2023, Expires: 05/02/2023 [facility] Work Phone: Comment on above: Expected: 03/02/2023 , Expires: 05/02/2023 Start: 03-02-2023 End: 05-02-2023 Comprehensive metabolic 2000 panel - Serum or Plasma COMP METABOLIC PANEL Lab STAT Diffuse large B-cell lymphoma of intra-abdominal lymph nodes (HCC) Prostate cancer (HCC) Malignant neoplasm metastatic to bone (HCC) Expected: 03/02/2023, Expires: 05/02/2023 [facility] Work Phone: Comment on above: Expected: 03/02/2023 , Expires: 05/02/2023 Start: 03-02-2023 End: 05-02-2023 Prostate specific Ag [Mass/volume] in Serum or Plasma [facility] Work Phone: Comment on above: Expected: 03/02/2023 , Expires: 05/02/2023 Start: 02-28-2023 End: 04-30-2023 CBC W Auto Differential panel - Blood CBC + DIFF Lab Routine Prostate cancer (HCC) Expected: 02/28/2023, Expires: 04/30/2023 [facility] Work Phone: Comment on above: Expected: 02/28/2023 , Expires: 04/30/2023 Start: 02-28-2023 End: 04-30-2023 Comprehensive metabolic 2000 panel - Serum or Plasma COMP METABOLIC PANEL Lab Routine Prostate cancer (HCC) Expected: 02/28/2023, Expires: 04/30/2023 [facility] Work Phone: Comment on above: Expected: 02/28/2023 , Expires: 04/30/2023 Start: 02-28-2023 End: 04-30-2023 Prostate specific Ag [Mass/volume] in Serum or Plasma PSA/PROSTSPECAG DIAG Lab Routine Prostate cancer (HCC) Expected: 02/28/2023, Expires: 04/30/2023 [facility] Work Phone: Comment on above: Expected: 02/28/2023 , Expires: 04/30/2023 Start: 02-27-2023 End: 09-28-2023 Bone &/joint imaging whole body NM BONE WHOLE BODY Radiology Routine Prostate cancer (HCC) Bone metastasis (HCC) Expected: 02/27/2023, Expires: 09/28/2023 [facility] Work Phone: Comment on above: Expected: 02/27/2023 , Expires: 09/28/2023 Start: 02-27-2023 End: 09-28-2023 Ct abdomen & pelvis w/contrast material CT ABD/PEL W IVCON Radiology Routine Diffuse large B-cell lymphoma of intra-abdominal lymph nodes (HCC) Prostate cancer (HCC) Bone metastasis (HCC) Expected: 02/27/2023, Expires: 09/28/2023 [facility] Work Phone: Comment on above: Expected: 02/27/2023 , Expires: 09/28/2023 Start: 02-15-2023 End: 04-17-2023 Basic metabolic 2000 panel - Serum or Plasma BASIC METABOLIC PNL Lab STAT Diffuse large B-cell lymphoma of intra-abdominal lymph nodes (HCC) Prostate cancer (HCC) Langerhans cell histiocytoses (HCC) Expected: 02/15/2023, Expires: 04/17/2023 [facility] Work Phone: Comment on above: Expected: 02/15/2023 , Expires: 04/17/2023 Start: 01-11-2023 ANNUAL PCP TEAM MECHANICAL MAINTENANCE TECHNICIAN SCOT DISEASE VISIT ANNUAL PCP TEAM CHRONIC DISEASE VISIT [facility] Start: 11-24-2022 End: 01-24-2023 CBC W Auto Differential panel - Blood CBC + DIFF Lab STAT Diffuse large B-cell lymphoma of intra-abdominal lymph nodes (HCC) Prostate cancer (HCC) Bone metastasis (HCC) Expected: 11/24/2022, Expires: 01/24/2023 [facility] Work Phone: Comment on above: Expected: 11/24/2022 , Expires: 01/24/2023 Start: 11-24-2022 End: 01-24-2023 Comprehensive metabolic 2000 panel - Serum or Plasma COMP METABOLIC PANEL Lab STAT Diffuse large B-cell lymphoma of intra-abdominal lymph nodes (HCC) Prostate cancer (HCC) Bone metastasis (HCC) Expected: 11/24/2022, Expires: 01/24/2023 [facility] Work Phone: Comment on above: Expected: 11/24/2022 , Expires: 01/24/2023 Start: 11-24-2022 End: 01-24-2023 Lactate dehydrogenase [Enzymatic activity/volume] in Serum or Plasma LD LACTATE DEHYDRO Lab Routine Diffuse large B-cell lymphoma of intra-abdominal lymph nodes (HCC) Prostate cancer (HCC) Bone metastasis (HCC) Expected: 11/24/2022, Expires: 01/24/2023 [facility] Work Phone: Comment on above: Expected: 11/24/2022 , Expires: 01/24/2023 Start: 11-24-2022 End: 01-24-2023 Prostate specific Ag [Mass/volume] in Serum or Plasma PSA/PROSTSPECAG DIAG Lab Routine Diffuse large B-cell lymphoma of intra-abdominal lymph nodes (HCC) Prostate cancer (HCC) Bone metastasis (HCC) Expected: 11/24/2022, Expires: 01/24/2023 [facility] Work Phone: Comment on above: Expected: 11/24/2022 , Expires: 01/24/2023 Start: 09-11-2022 ADVANCE DIRECTIVE DISCUSSION ADVANCE DIRECTIVE DISCUSSION [facility] Start: 09-11-2022 DEPRESSION ASSESSMENT DEPRESSION ASS ESSMENT [facility] Start: 08-24-2022 COVID-19 VACCINE (5 - Pfizer risk series) COVID-19 VACCINE (5 - Pfizer risk series) [facility] Start: 08-16-2022 End: 07-28-2023 Ct abdomen & pelvis w/contrast material CT ABD/PEL W IVCON Radiology Routine Diffuse large B-cell lymphoma of intra-abdominal lymph nodes (HCC) Bone metastasis (HCC) Prostate cancer (HCC) Langerhans cell histiocytoses (HCC) Expected: 08/16/2022, Expires: 07/28/2023 [facility] Work Phone: Comment on above: Expected: 08/16/2022 , Expires: 07/28/2023 Start: 07-14-2022 End: 09-13-2022 Comprehensive metabolic 2000 panel - Serum or Plasma COMP METABOLIC PANEL Lab Routine Hyperlipidemia, unspecified hyperlipidemia type Expected: 07/14/2022, Expires: 09/13/2022 [facility] Work Phone: Comment on above: Expected: 07/14/2022 , Expires: 09/13/2022 Start: 07-14-2022 End: 09-13-2022 LIPID PANEL BASIC LIPID PANEL BASIC Lab Routine Hyperlipidemia, unspecified hyperlipidemia type Expected: 07/14/2022, Expires: 09/13/2022 [facility] Work Phone: Comment on above: Expected: 07/14/2022 , Expires: 09/13/2022 Start: 07-13-2022 Adult depression screening assessment DEPRESSION SCREENING [facility] Start: 07-13-2022 ANNUAL PCP TEAM MECHANICAL MAINTENANCE TECHNICIAN SCOT DISEASE VISIT ANNUAL PCP TEAM CHRONIC DISEASE VISIT [facility] Start: 05-19-2022 End: 07-19-2022 CBC W Auto Differential panel - Blood CBC + DIFF Lab STAT Diffuse large B-cell lymphoma of intra-abdominal lymph nodes (HCC) Bone metastasis (HCC) Malignant neoplasm of prostate (HCC) Expected: 05/19/2022, Expires: 07/19/2022 [facility] Work Phone: Comment on above: Expected: 05/19/2022 , Expires: 07/19/2022 Start: 05-19-2022 End: 07-19-2022 Comprehensive metabolic 2000 panel - Serum or Plasma COMP METABOLIC PANEL Lab STAT Diffuse large B-cell lymphoma of intra-abdominal lymph nodes (HCC) Bone metastasis (HCC) Malignant neoplasm of prostate (HCC) Expected: 05/19/2022, Expires: 07/19/2022 [facility] Work Phone: Comment on above: Expected: 05/19/2022 , Expires: 07/19/2022 Start: 05-19-2022 End: 07-19-2022 Lactate dehydrogenase [Enzymatic activity/volume] in Serum or Plasma LD LACTATE DEHYDRO Lab Routine Diffuse large B-cell lymphoma of intra-abdominal lymph nodes (HCC) Bone metastasis (HCC) Malignant neoplasm of prostate (HCC) Expected: 05/19/2022, Expires: 07/19/2022 [facility] Work Phone: Comment on above: Expected: 05/19/2022 , Expires: 07/19/2022 Start: 05-19-2022 End: 07-19-2022 Prostate specific Ag [Mass/volume] in Serum or Plasma PSA/PROSTSPECAG DIAG Lab Routine Diffuse large B-cell lymphoma of intra-abdominal lymph nodes (HCC) Bone metastasis (HCC) Malignant neoplasm of prostate (HCC) Expected: 05/19/2022, Expires: 07/19/2022 [facility] Work Phone: Comment on above: Expected: 05/19/2022 , Expires: 07/19/2022 Start: 05-12-2022 Influenza vaccination INFLUENZA (#1) [facility] Start: 10-28-2021 COVID-19 VACCINE (4 - Booster for Pfizer series) COVID-19 VACCINE (4 - Booster for Pfizer series) [facility] Start: 10-20-2021 COVID-19 VACCINE (4 - Booster for Pfizer series) COVID-19 VACCINE (4 - Booster for Pfizer series) [facility] Start: 09-22-2021 COVID-19 VACCINE (4 - Booster for Pfizer series) COVID-19 VACCINE (4 - Booster for Pfizer series) [facility] Start: 09-11-2021 ADVANCE DIRECTIVE DISCUSSION ADVANCE DIRECTIVE DISCUSSION [facility] Start: 09-11-2021 DEPRESSION ASSESSMENT DEPRESSION ASS ESSMENT [facility] Start: 07-10-2021 Influenza vaccination LUNG CANCER SC REENING [facility] Start: 07-10-2021 Screening for malign ant neoplasm of lung Lung Cancer Screening [facility] Start: 05-08-2021 PNEUMOCOCCAL: 65+ (3 - PCV) PNEUMOCOCCAL: 65+ (3 - PCV) [facility] Start: 02-14-2021 Colonoscopy COLONOSCOPY [facility] Start: 02-14-2021 COLORECTAL CANCER SCREENING COLORECTAL CANCER SCREENING [facility] Start: 05-12-2020 Influenza vaccination Flu vaccine (# 1) [place], [place] Start: 12-24-2019 Lipid 1996 panel - S ilan or Plasma Lipid Screening [facility] Start: 12-24-2019 Lipid panel Lipid Screening [facility] Start: 12-24-2019 LIPID SCREEN LIPID SCREEN [facility] Start: 04-11-2017 End: 04-11-2017 Appointment Appointment [facility] Work Phone: Start: 04-11-2017 End: 04-11-2017 Follow-up visit Follow Up as needed [facility] Work Phone: Start: 03-29-2017 End: 03-30-2017 Exc [id number] mlg+theresa 2.1-3 Excision Malignant Lesion Hand/Feet/Scalp/Neck/Gen itals 2.1-3.0 cm [facility] Work Phone: Start: 12-04-2016 FECAL OCCULT BLOOD FECAL OCCULT BLOO D [facility] Start: 12-04-2016 Screening for malign ant neoplasm of colon Fecal Occult Blood [facility] Start: 2014 RSV Vaccine (1 - 1-d ose 60+ series) RSV Vaccine (1 - 1-dose 60+ series) [facility] Start: 2014 RSV Vaccine (1 - Ris k 60-74 years 1-dose series) RSV Vaccine (1 - Risk 60-74 years 1-dose series) [facility] Start: 2004 SHINGRIX VACCINE (1 of 2) MONTERO GRIX VACCINE (1 of 2) [facility] Start: 1999 COLOGUARD (FIT-DNA) COLOGUARD (FIT-D NA) [facility] Start: [address] COLONOGRAPHY [facility] Start: 1999 Screening for malign ant neoplasm of colon [facility] Start: [address] [facility] Start: 1984 Zoledronic acid therapy ALPHA- 1 ANTITRYPSIN DEFICIENCY SCREENING [facility] Start: 1973 SHINGRIX VACCINE (1 of 2) MONTERO GRIX VACCINE (1 of 2) [facility] Start: 1972 SPIROMETRY SPIROMETRY [facility] Start: 1954 ABDOMINAL AORTIC ANE URYSM SCREENING ABDOMINAL AORTIC ANEURYSM SCREENING [facility] Start: 1955 Abdominal aortic ane urysm screening Abdominal Aortic Aneurysm Screening [facility] 25-hydroxyvitamin D3 [Mass/volume] in Serum or Plasma VITAMIN D 25 HYDROXY Lab Routine Malignant neoplasm of prostate (HCC) Bone metastasis (HCC) 04/04/2022 9:[address] [facility] Work Phone: End: 07-08-2020 AFP Tumor Marker AFP Tumor Marker Lab Routine One Time for 1 Occurrences starting 07/08/2020 until 07/08/[facility] on above: One Time for 1 Occur rences starting 07/08/2020 until 07/08/2020 AFP Tumor Marker AFP Tumor Marke r Lab Routine 07/08/2020 6:11 AM [facility]T [facility] An[facility] gap in Serum o r Plasma [facility] Bilirubin.direct [Mass/Vol] BILIRUBIN, DIRECT Lab Routine Daily until discontinued starting 07/09/2020 [facility] Comment on above: Daily until disconti nued starting 07/09/2020 BUN/Creatinine ratio [facility] Calcium [Mass/volume ] in Serum or Plasma [facility] End: 07-08-2020 Cancer Antigen 19-9 Cancer Antigen 19-9 Lab Routine One Time for 1 Occurrences starting 07/08/2020 until 07/08/2020 [facility] on above: One Time for 1 Occur rences starting 07/08/2020 until 07/08/2020 Cancer Antigen 19-9 Cancer Antig en 19-9 Lab Routine 07/08/2020 6:11 AM EDT [facility] Carbon dioxide, tota l [Moles/volume] in Central venous blood [facility] CBC Auto Differential [facility] Comment on above: Tomorrow AM until di scontinued starting 07/09/2020 Comprehensive metabo lic 2000 panel Comprehensive Metabolic Panel Lab Routine Daily until discontinued starting 07/09/2020 [facility] Comment on above: Daily until disconti nued starting 07/09/2020 Comprehensive metabo lic 2000 panel - Serum or Plasma COMP METABOLIC PANEL Lab STAT Diffuse large B-cell lymphoma of intra-abdominal lymph nodes (HCC) Bone metastasis (HCC) Prostate cancer (HCC) Langerhans cell histiocytoses (HCC) 08/12/2022 8:[address] [facility] Work Phone: End: 10-26-2024 Comprehensive metabolic 2000 panel - Serum or Plasma COMP METABOLIC PANEL Lab Routine Malignant neoplasm metastatic to bone (HCC) Once per month for 12 Occurrences starting 10/27/2023 until 10/26/2024, [address] [facility] Work Phone: Comment on above: Once per month for 1 2 Occurrences starting 10/27/2023 until 10/26/2024, 1 completed Creatinine [Mass/vol ume] in Serum or Plasma [facility] Ct abdomen & pelvis w/contrast material CT ABD/PEL W IVCON Radiology Routine Malignant neoplasm of prostate (HCC) Diffuse large B-cell lymphoma of intra-abdominal lymph nodes (HCC) 03/04/2022 9:[address] [facility] Work Phone: End: 01-18-2026 CT Abdomen and Pelvis W contrast IV CT ABD/PEL W IVCON Radiology Routine Lesion of liver Diffuse large B-cell lymphoma of intra-abdominal lymph nodes (HCC) 1 Occurrences starting 12/19/2024 until 01/18/2026 [facility] Work Phone: Comment on above: 1 Occurrences starti ng 12/19/2024 until 01/18/2026 CT Abdomen and Pelvi s W contrast IV CT ABD/PEL W IVCON Radiology Routine Lesion of liver Diffuse large B-cell lymphoma of intra-abdominal lymph nodes (HCC) 01/07/2025 10:[address] [facility] Work Phone: End: 12-26-2025 CTA Abdominal, Pelvis and Lower extremity vessels W contrast IV CTA ABD/PEL LOWER EXTREM W IVCON Radiology Routine Peripheral vascular disease (HCC) 1 Occurrences starting 11/26/2024 until 12/26/2025 [facility] Comment on above: 1 Occurrences starti ng 11/26/2024 until 12/26/2025 EKG 12 Lead EKG 12 Lead ECG Routine 07/07/2020 9:43 PM EDT [facility] [place] [place] Erythrocyte mean corpuscular volume determination [facility] Glucose [Mass/volume ] in Serum or Plasma [facility] Hematocrit [Volume Fraction] of Blood [facility] Hemoglobin [Mass/vol ume] in Blood [facility] Lactate dehydrogenas e [Enzymatic activity/volume] in Serum or Plasma LD LACTATE DEHYDRO Lab Routine Diffuse large B-cell lymphoma of intra-abdominal lymph nodes (HCC) Bone metastasis (HCC) Prostate cancer (HCC) Langerhans cell histiocytoses (HCC) 08/12/2022 8:[address] [facility] Work Phone: Leukocytes [#/volume ] in Blood [facility] Magnesium [Mass/Vol] Magnesium L ab Routine Daily until discontinued starting 07/09/2020 [place], [place] Comment on above: Daily until disconti nued starting 07/09/2020 Mean corpuscular hemoglobin concentration determination [facility] Mean corpuscular hemoglobin determination [facility] Measurement of renal function [facility] End: 07-07-2020 MRI ABDOMEN W WO CONTRAST MRI ABDOMEN W WO CONTRAST Imaging Routine Once for 1 Occurrences starting 07/07/2020 until 07/07/2020 [facility] [place] Comment on above: Once for 1 Occurrenc es starting 07/07/2020 until 07/07/2020 Nebulizer therapy [facility] Treatment Respiratory Care Routine 0600, 1000, 1400, 1800, 2200 until discontinued starting 07/07/2020 [facility] [place] Comment on above: 0600, 1000, 1400, 18 00, 2200 until discontinued starting 07/07/2020 Neutrophil count [facility] Neutrophil percent differential count [facility] Oxygen therapy [[facility] [place]] Initiate Oxygen Therapy Protocol Respiratory Care Routine Daily until discontinued starting 07/07/2020 [facility] [place] Comment on above: Daily until disconti nued starting 07/07/2020 Patient referral [facility] Work Phone: Phosphate [Mass/Vol] Phosphorus Lab Routine Daily until discontinued starting 07/09/2020 [facility] [place] Comment on above: Daily until disconti nued starting 07/09/2020 Platelets [#/volume] in Blood [facility] Potassium measurement [facility] Prostate specific Ag [Mass/volume] in Serum or Plasma PSA/PROSTSPECAG DIAG Lab Routine Diffuse large B-cell lymphoma of intra-abdominal lymph nodes (HCC) Malignant neoplasm of prostate (HCC) Bone metastasis (HCC) 03/04/2022 7:27 AM [facility] Work Phone: Prostate specific Ag [Mass/volume] in Serum or Plasma PSA/PROSTSPECAG DIAG Lab Routine Diffuse large B-cell lymphoma of intra-abdominal lymph nodes (HCC) Malignant neoplasm of prostate (HCC) Bone metastasis (HCC) 03/18/2022 10:51 AM [facility] Work Phone: Prostate specific Ag [Mass/volume] in Serum or Plasma PSA/PROSTSPECAG DIAG Lab Routine Malignant neoplasm of prostate (HCC) Bone metastasis (HCC) 04/04/2022 9:31 AM [facility] Work Phone: Prostate specific Ag [Mass/volume] in Serum or Plasma PSA/PROSTSPECAG DIAG Lab Routine Diffuse large B-cell lymphoma of intra-abdominal lymph nodes (HCC) Bone metastasis (HCC) Malignant neoplasm of prostate (HCC) 05/20/2022 9:28 AM [facility] Work Phone: Prostate specific Ag [Mass/volume] in Serum or Plasma PSA/PROSTSPECAG DIAG Lab Routine Diffuse large B-cell lymphoma of intra-abdominal lymph nodes (HCC) Bone metastasis (HCC) Prostate cancer (HCC) 06/28/2022 9:25 AM [facility] Work Phone: Prostate specific Ag [Mass/volume] in Serum or Plasma PSA/PROSTSPECAG DIAG Lab Routine Diffuse large B-cell lymphoma of intra-abdominal lymph nodes (HCC) Bone metastasis (HCC) Prostate cancer (HCC) Langerhans cell histiocytoses (HCC) 08/12/2022 8:16 AM [facility] Work Phone: Prostate specific Ag [Mass/volume] in Serum or Plasma PSA/PROSTSPECAG DIAG Lab Routine Prostate cancer (HCC) 04/28/2023 8:28 AM [facility] Work Phone: Prostate specific Ag [Mass/volume] in Serum or Plasma PSA/PROSTSPECAG DIAG Lab Routine Malignant neoplasm metastatic to bone (HCC) 10/27/2023 9:24 AM [facility] Work Phone: End: 10-26-2024 Prostate specific Ag [Mass/volume] in Serum or Plasma PSA/PROSTSPECAG DIAG Lab Routine Malignant neoplasm metastatic to bone (HCC) Once per month for 12 Occurrences starting 10/27/2023 until 10/26/2024, [address] [facility] Work Phone: Comment on above: Once per month for 1 2 Occurrences starting 10/27/2023 until 10/26/2024, 1 completed Prostate specific Ag [Mass/volume] in Serum or Plasma PSA/PROSTSPECAG DIAG Lab Routine Malignant neoplasm metastatic to bone (HCC) 01/17/2024 7:48 AM [facility] Work Phone: Prostate specific Ag [Mass/volume] in Serum or Plasma PSA/PROSTSPECAG DIAG Lab Routine Malignant neoplasm metastatic to bone (HCC) 04/09/2024 7:32 AM [facility] Work Phone: Prostate specific Ag [Mass/volume] in Serum or Plasma PSA/PROSTSPECAG DIAG Lab Routine Malignant neoplasm metastatic to bone (HCC) 07/02/2024 7:43 AM [facility] Work Phone: Prostate specific Ag [Mass/volume] in Serum or Plasma PSA/PROSTSPECAG DIAG Lab Routine Malignant neoplasm metastatic to bone (HCC) 09/24/2024 7:42 AM [facility] Work Phone: Prostate specific Ag [Mass/volume] in Serum or Plasma PROSTATE-SPECIFIC ANTIGEN DIAGNOSTIC Lab Routine Prostate cancer (HCC) Malignant neoplasm metastatic to bone (HCC) 12/17/2024 7:45 AM [facility] Work Phone: [facility] [place] [place] Comment on above: Daily until disconti nued starting 07/09/2020 End: 02-22-2023 PVR LEG W/EXC [facility] PVR LEG W/EXC [facility] Vascular Lab Routine Peripheral arterial disease (HCC) 1 Occurrences starting 02/22/2022 until 02/22/2023 [facility] Work Phone: Comment on above: 1 Occurrences starti ng 02/22/2022 until 02/22/2023 Red blood cell count [facility] Red cell distributio n width determination [facility] Serum chloride measurement [facility] Sodium measurement [facility] End: 08-15-2025 SPIROMETRY - BASELINE AND POST DILATOR SPIROMETRY - BASELINE AND POST DILATOR PFT Routine Chronic obstructive pulmonary disease, unspecified COPD type (HCC) Tobacco use disorder 1 Occurrences starting 07/16/2024 until 08/15/2025 [facility] Work Phone: Comment on above: 1 Occurrences starti ng 07/16/2024 until 08/15/2025 SPIROMETRY - BASELIN E AND POST DILATOR SPIROMETRY - BASELINE AND POST DILATOR PFT Routine Chronic obstructive pulmonary disease, unspecified COPD type (HCC) Tobacco use disorder 07/26/2024 8:[address] [facility] Work Phone: Spirometry panel Incentive jesica metry RT Respiratory Care Routine Every 2hr while awake until discontinued starting 07/08/2020 [facility] [place] Comment on above: Every 2hr while awak e until discontinued starting 07/08/2020 Testosterone [Mass/volume] in Serum or Plasma TESTOSTERONE TOTAL Lab Routine Malignant neoplasm of prostate (HCC) Bone metastasis (HCC) 04/04/2022 9:[address] [facility] Work Phone: Troponin T.cardiac [Mass/volume] in Serum or Plasma by High sensitivity method [facility] Troponin T.cardiac [Mass/volume] in Serum or Plasma by High sensitivity method [facility] Troponin T.cardiac [Mass/volume] in Serum or Plasma by High sensitivity method [facility] Urea nitrogen [Mass/volume] in Serum or Plasma [facility] End: 11-26-2025 US Carotid arteries - bilateral US CAROTID ARTERIES [facility] Vascular Lab Routine Asymptomatic carotid artery stenosis, unspecified laterality 1 Occurrences starting 11/26/2024 until 11/26/2025 [facility] Work Phone: Comment on above: 1 Occurrences starti ng 11/26/2024 until 11/26/2025 End: 11-27-2024 US Lower extremity artery - bilateral PVR ANK/VEGA/TOE [facility] Vascular Lab Routine Peripheral arterial disease (HCC) 1 Occurrences starting 11/28/2023 until 11/27/2024 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 Work Phone: [facility] 06-19-2023 influenza virus vacc ine, unspecified formulation Francisco Javier Perez MD Work Phone: [facility] 06-29-2022 COVID-19 booster vaccine, age 12+ yr, bivalent (PFIZER-BIONTECH) Apollo Melo MD Work Phone: [facility] 06-18-2022 influenza, high dose seasonal, preservative-free [facility] Work Phone: [facility] 06-18-2022 influenza, high-dose , quadrivalent vaccine (FLUZONE HIGH DOSE QUADRIVALENT) Apollo Melo MD Work Phone: [facility] 07-13-2021 influenza, high-dose , quadrivalent vaccine (FLUZONE HIGH DOSE QUADRIVALENT) [facility] Work Phone: [facility] 06-12-[address] Apollo Melo MD Work Phone: [facility] 05-08-2020 influenza, injectabl e, quadrivalent, preservative free Apollo Melo MD Work Phone: [facility] 05-08-2020 pneumococcal polysaccharide vaccine, 23 valent [facility] Work Phone: [facility] Work Phone: 05-20-2019 pneumococcal conjuga te vaccine, 13 valent Apollo Melo MD Work Phone: [facility] 05-20-2019 Seasonal trivalent influenza vaccine, adjuvanted, preservative free Apollo Melo MD Work Phone: [facility] 06-22-2018 pneumococcal polysaccharide vaccine, 23 valent Apollo Melo MD Work Phone: [facility] 06-15-2018 influenza, injectabl e, quadrivalent, preservative free Apollo Melo MD Work Phone: [facility] 12-07-2017 hepatitis B vaccine, adult dosage Apollo Melo MD Work Phone: [facility] 07-06-2017 hepatitis B vaccine, adult dosage Apollo Melo MD Work Phone: [facility] 06-06-2017 hepatitis A vaccine, adult dosage Apollo Melo MD Work Phone: [facility] 06-06-2017 hepatitis B vaccine, adult dosage Apollo Melo MD Work Phone: [facility] 06-17-2016 influenza, injectabl e, quadrivalent, contains preservative [facility] Work Phone: [facility] 06-11-2015 influenza, injectabl e, quadrivalent, contains preservative [facility] Work Phone: [facility] 06-26-2014 influenza, seasonal, injectable [facility] Work Phone: [facility] Work Phone: 12-25-2013 tetanus toxoid, redu teri diphtheria toxoid, and acellular pertussis vaccine, adsorbed [facility] Work Phone: [facility] Work Phone: 07-02-2013 influenza virus vacc ine, unspecified formulation [facility] Work Phone: [facility] 08-17-2012 influenza virus vacc ine, unspecified formulation [facility] Work Phone: [facility] 08-17-2012 pneumococcal polysaccharide vaccine, 23 valent [facility] Work Phone: [facility] Payers Date Payer Category Payer Medicare HUMANA MEDICARE HUMANA GOLD PLUS [id number] 2021-Present [phone] [place] [id number] [facility] [id number] 2019 Medicare [id number] 2019 Medicare (Managed Care) HUMANA G OLD PLUS [id number] 2019 Private Health Insurance [id number] [place] [id number] Social History Date Type Detail Facility Start: 07-08-2020 End: 07-16-2024 Tobacco smoking status NHIS Current every day smoker [facility] Start: 01-01-1979 End: 07-09-2020 History of tobacco use Cigarette Smoker [facility] [employer] [facility] Start: 07-08-2020 End: 01-13-2023 Cigarettes smoked current (pack per day) - Reported [facility] Work Phone: Start: 07-08-2020 End: 07-16-2024 Tobacco use and exposure Never used [facility] [employer] Start: 07-08-2020 End: 01-14-2025 Alcohol intake Ex-drinker (finding) [facility] [employer] Start: 07-07-2020 History SDOH [facility] [employer] [facility] Start: 07-07-2020 History SDOH Alcohol Std Drinks 98 [facility] Start: 1955 Sex Assigned At Not on file [facility] Start: 04-10-2021 End: 07-15-2022 Exposure to SARS-CoV-2 (event) Not sure [facility] Start: 08-12-2021 History SDOH Alcohol Comment [facility] Start: 01-15-2022 End: 01-25-2022 Exposure to SARS-CoV-2 (event) Yes [facility] Work Phone: Start: 1955 Sex Assigned At Male [facility] Start: 07-10-2020 End: 01-13-2023 Tobacco use panel [facility] Work Phone: Adult Depression Screening Assessment 0 [facility] Work Phone: (I/We) worried wheeliza er (my/our) food would run out before (I/we) got money to buy more. DK or Refused [facility] Work Phone: Start: 03-29-2022 Gender identity Identifies as male gender (finding) [facility] Start: 03-29-2022 Sexual orientation Heterosexual (fin oma) [facility] Start: 05-10-2021 Alcoholic beverage intake Current drinker of alcohol (finding) [facility] Start: 09-15-2008 [facility] Start: 02-18-2025 [facility] Start: 09-01-2020 Alcohol Alcohol [facility] Start: 09-01-2020 Lives Lives [facility] Start: 07-07-2020 Tobacco Use Tobacco Use [facility] Medical Equipment Procedure Code Equipment Code Equipment Origin al Text Equipment Identifier Dates Port [employer] M ri 8fr Plastic Polyurethane Implantable Infusion - [id number] Start: 07-30-2020 Comment on above: Description: PowerPo rt MRI Implantable Port Goals Date Patient Goal Desired Activity /State Personal health goal Functional Status Date Assessment Result Facility 07-15-2020 Are you deaf, or do you have serious difficulty hearing No 07/15/2020 4:14 PM Vianey Pearce RN No [facility] 07-15-2020 Are you blind, or do you have serious difficulty seeing, even when wearing glasses No 07/15/2020 4:14 PM Vianey Pearce RN No [facility] 07-15-2020 Do you have serious difficulty walking or climbing stairs No 07/15/2020 4:14 PM Vianey Pearce RN No [facility] 07-15-2020 Do you have difficul ty dressing or bathing No 07/15/2020 4:14 PM Vianey Pearce RN No [facility] 07-15-2020 Because of a physica l, mental, or emotional condition, do you have difficulty doing errands alone such as visiting a physician's office or shopping No 07/15/2020 4:14 PM Vianey Pearce RN No [facility] Mental Status Date Assessment Result Facility 02-18-2025 Cognitive function Voice/Name [facility] Work Phone: 07-15-2020 Because of a physica l, mental, or emotional condition, do you have serious difficulty concentrating, remembering, or making decisions No 07/15/2020 4:14 PM Vianey Pearce RN No [facility] Clinical Notes 10-20-2011 to 02-17-2025 Telephone Encounter - Maliha Lacy RN - 02/17/2025 4:33 PM EDTTelephone Encounter - Maliha Lacy RN - 02/17/2025 4:33 PM Apollo Ríos MD - 01/14/2025 8:40 AM EDT Note Date & Type Note Facility 02-17-2025 Telephone encounter Note See other note from today. Keep schedule as is. Nemo Lacy RN [facility] Work Phone: 02-17-2025 Miscellaneous Notes See other note from today. Keep schedule as is. Nemo Lacy RN Please advise. documented in this encounter [facility] 02-17-2025 Telephone encounter Note Call to patient, he states he slept this afternoon and feels better. He will see how the evening goes and will reach out to Dr. Melo for an appointment. Reminded of follow up with our office on 03/13/25. Nemo Lacy RN [facility] Work Phone: 02-17-2025 Miscellaneous Notes Call to patient, he states he slept this afternoon and feels better. He will see how the evening goes and will reach out to Dr. Melo for an appointment. Reminded of follow up with our office on 03/13/25. Nemo Lacy RN Discussed with Dr. Perez. Patient to call PCP for evaluation. Nemo Lacy RN Care Coordination Triage Note [facility] [place] Situation: Patient reports Pain--Generalized Background: Prostate- on [...] 2025 11:51 AM documented in this encounter [facility] 02-17-2025 Telephone encounter Note Discussed with Dr. Perez. Patient to call PCP for evaluation. Nemo Lacy RN [facility] 02-17-2025 Telephone encounter Note Care Coordination Triage Note [facility] [place] Situation: Patient reports Pain--Generalized Background: Prostate- on [...] Lacy RN February 17, 2025 11:51 AM [facility] 02-17-2025 Telephone encounter Note Please advise. [facility] Work Phone: 01-14-2025 History of Presen t [...] Relation Age of Onset Heart Father of [place] age 80 Stroke Mother Heart Brother Patient [...] Past Histories independently gathered by the clinical supportability engineer and the remaining scribed note accurately describes my personal service to the patient. Medical Decision Making: Problems: Moderate: 2+ stable chronic illnesses Data: Unique test(s) ordered: 3+ Risk: Moderate: Drug management Medical Decision Making Level: 4 - Moderate Apollo Melo MD The documentation for this note was completed by Anita Inman MA acting as scribe for Apollo Melo MD. January 14, 2025 8:28 AM. Anita Inman MA documented in this encounter [facility] 01-14-2025 Note HNO ID: [id number] Author: APOLLO MELO MD Service: ? Author [...] Relation Age of Onset Heart Father of [place] age 80 Stroke Mother Heart Brother Patient [...] 1 tablet by mouth twice daily hydrocortisone (PROCTO-HCEN) 1 % crpe 1 application by RECTAL [...] - Controlled Continue (more content not included)... [facility] 01-07-2025 History of Presen t illness [...] PATIENT PRESENTS WITH AN IMPLANTABLE OR ATTACHED REGISTERED NURSE CARDIOVASCULAR ICU: No ALLERGIES: Reviewed and unchanged CONTRAST ALLERGY: [...] TIME: 1:32 PM documented in this encounter [facility] 01-07-2025 Note HNO ID: [id number] Author: OLIVIA HOOK RT(R) Service: ? Author Type: Orthopedic Nurse Practitioner Type: Progress Notes Filed: 01/07/2025 13:33 Note [...] PATIENT PRESENTS WITH AN IMPLANTABLE OR ATTACHED REGISTERED NURSE CARDIOVASCULAR ICU: No ALLERGIES: Reviewed and unchanged CONTRAST ALLERGY: [...] DATE: January 07, 2025 TIME: 1:32 PM [facility] 01-06-2025 Note HNO ID: [id number] Author: ?, ?, ? Service: ? Author [...] directly to schedule Navigation Signature: Megan Roche [facility] January 06, 2025 12:51 PM [facility] 01-06-2025 Note HNO ID: [id number] Author: ?, ?, ? Service: ? Author [...] MyChart message sent Navigation Signature: Megan Roche [facility] January 06, 2025 10:40 AM [facility] 01-06-2025 Note Patient Outreach (LEEANN TNAV) AMIE KILLIAN ([id number]) 1955 M Date Time Provider Department 01/06/25 [...] Encounter Status:Closed by MEGAN MANZANARES on 01/06/25 [facility] 12-19-2024 Note HNO ID: [id number] Author: FRANCISCO JAVIER PEREZ MD Service: ? [...] Relation Age of Onset Heart Father of [place] age 80 Stroke Mother Heart Brother Social [...] which included preparing to see the patient, [id number] patient care, completing clinical documentation, obtaining and/or reviewing separately obtained history, performing a medically appropriate examination, counseling and educating the patient/family/caregiver, independently interpreting results (not separately reported), and communicating results to the patient/family/caregiver. Electronically Signed: Francisco Javier Perez MD December 19, 2024 [facility] 12-19-2024 History of Presen t illness [...] Relation Age of Onset Heart Father of [place] age 80 Stroke Mother Heart Brother Social [...] which included preparing to see the patient, [id number] patient care, completing clinical documentation, obtaining and/or reviewing separately obtained history, performing a medically appropriate examination, counseling and educating the patient/family/caregiver, independently interpreting results (not separately reported), and communicating results to the patient/family/caregiver. Electronically Signed: Francisco Javier Perez MD December 19, 2024 Est. Pt. Discuss recent labs, tx today Dinorah Correa LPN documented in this encounter [facility] 12-19-2024 Note HNO ID: [id number] Author: DINORAH CORREA LPN Service: ? Author Type: LICENSED NURSE Type: Progress Notes Filed: 12/19/2024 11:44 Note Text: Est. Pt. Discuss recent labs, tx today Dinorah Shi FARIBA Correa [facility] 12-17-2024 Note HNO ID: [id number] Author: PACO LANDEROS RN Service: ? Author Type: Registered Nurse Type: Progress Notes Filed: 12/17/2024 07:46 Note Text: Patient is here for IVAD port flush/blood draw per [facility] protocol. IVAD is located in right upper [...] edema or tenderness. Patient tolerated procedure well. [facility] 12-17-2024 History of Presen t illness Narrative Patient is here for IVAD port flush/blood draw per [facility] protocol. IVAD is located in right upper [...] tolerated procedure well. documented in this encounter [facility] 12-06-2024 Telephone encounter Note POPULATION HEALTH NAVIGATION OUTREACH Action/ Patient responded to [employer] message about his AWV. Updated patient with [employer] response to have clarify what a medicare wellness visit is. Reason for Outreach Returned Call/MyChart Patient Contacted: Spoke to patient/parent/or legal guardian Patient identified by name and date of : Yes Returned call/MyChart actions taken: MyChart message sent Navigation Signature: Megan Randle December 06, 2024 10:36 AM [facility] 12-06-2024 Miscellaneous Notes POPULATION HEALTH NAVIGATION OUTREACH [...] 2024 10:36 AM documented in this encounter [facility] 12-06-2024 Note HNO ID: [id number] Author: ?, ?, ? Service: ? Author [...] Updated appointment notes Navigation Signature: Megan Roche [facility] December 06, 2024 10:17 AM [facility] 12-06-2024 History of Presen t illness [...] 2024 10:17 AM documented in this encounter [facility] 12-06-2024 Note Patient Outreach (LEEANN TNAV) AMIE KILLIAN ([id number]) 1955 Date Time Provider Department 12/06/24 APOLLO MELO During your visit today, we recorded the following information about you: eMgan Manzanares 12/06/2024 10:19 AM Signed POPULATION HEALTH NAVIGATION OUTREACH Action/ Patient outreach for HCC gaps; AWV. [employer] message sent. Appointment notes updated. Reason for Outreach Care Gap/HCC or Scheduling Wellness Visits Care Gaps due: Medicare Annual Wellness Visit Patient Contacted: Unable or unnecessary to reach patient: [email or web address] message sent HCC related Updated appointment notes [...] Encounter Status:Closed by MEGAN MANZANARES on 12/06/24 [facility] 11-26-2024 Note HNO ID: [id number] Author: AMANDA CORONA, DO Service: ? Author Type: Physician Type: Progress Notes Filed: 11/26/2024 11:47 Note Text: [facility] DEPARTMENT OF VASCULAR SURGERY OUTPATIENT VISIT DATE November 26, 2024 OUTPATIENT VISIT TYPE ESTABLISHED SERVICE DATE: 11/26/2024 SERVICE TIME: 9:12 AM PRIMARY CARE PHYSICIAN: Apollo Melo MD HISTORY OF PRESENT ILLNESS: Mr. Killian is a 69 year old male who presents today for a vascular surgery follow-up visit for peripheral arterial disease. He has been active in the winter with walking at the [facility]. This spring, he has noticed right [...] DATE: November 26, 2024 TIME: 9:12 AM [facility] 11-26-2024 History of Presen t illness Narrative Images from the original note were not included. [facility] DEPARTMENT OF VASCULAR SURGERY OUTPATIENT VISIT DATE November 26, 2024 OUTPATIENT VISIT TYPE ESTABLISHED SERVICE DATE: 11/26/2024 SERVICE TIME: 9:12 AM PRIMARY CARE PHYSICIAN: Apollo Melo MD HISTORY OF PRESENT ILLNESS: Mr. Killian is a 69 year old male who presents today for a vascular surgery follow-up visit for peripheral arterial disease. He has been active in the winter with walking at the [facility]. This spring, he has noticed right [...] TIME: 9:12 AM documented in this encounter [facility] 11-14-2024 Telephone encounter Note See other [employer] message. Anita Inman MA [facility] 11-14-2024 Miscellaneous Notes See other [employer] message. Anita Inman MA documented in this encounter [facility] 09-30-2024 Telephone encounter Note Rx refill sent a separate encounter. Alesia Schroeder LPN [facility] 09-30-2024 Miscellaneous Notes Rx refill sent a separate encounter. Alesia Schroeder LPN Fax received from [employer] patient assistance that pt needs an updated prescription for 2024. Please send prescription with enough refills for the year to: [id number] Thank you, GEMMA Heck documented in this encounter [facility] 09-30-2024 Telephone encounter Note Please send new Rx for patient assistance. Alesia Schroeder LPN [facility] 09-30-2024 Miscellaneous Notes Please send new Rx for patient assistance. Alesia Schroeder LPN documented in this encounter [facility] 09-30-2024 Telephone encounter Note Fax received from [employer] patient assistance that pt needs an updated prescription for 2024. Please send prescription with enough refills for the year to: [facility] [phone] Thank you, GEMMA Heck [facility] 09-26-2024 Note HNO ID: [id number] Author: FRANCISCO JAVIER PEREZ MD Service: ? [...] Relation Age of Onset Heart Father of [place] age 80 Stroke Mother Heart Brother Social [...] which included preparing to see the patient, [id number] patient care, completing clinical documentation, obtaining and/or reviewing separately obtained history, performing a medically appropriate examination, counseling and educating the patient/family/caregiver, independently interpreting results (not separately reported), and communicating results to the patient/family/caregiver. Electronically Signed: Francisco Javier Perez MD September 26, 2024 [facility] 09-26-2024 History of Presen t illness [...] Relation Age of Onset Heart Father of [place] age 80 Stroke Mother Heart Brother Social [...] which included preparing to see the patient, rgwk-[id number] patient care, completing clinical documentation, obtaining and/or reviewing separately obtained history, performing a medically appropriate examination, counseling and educating the patient/family/caregiver, independently interpreting results (not separately reported), and communicating results to the patient/family/caregiver. Electronically Signed: Francisco Javier Perez MD September 26, 2024 documented in this encounter [facility] 09-18-2024 Telephone encounter Note SOCIAL WORK FOLLOW UP NOTE: [facility] Date of service: September 18, 2024 Amie Killian is being seen for a follow up social work visit. Today's visit includes: patient TOPICS ADDRESSED: SW met with pt this date and reviewed mailing received from [employer]. SW discussed with pt needing to reapply for the [employer] assistance program. Pt in agreement. Application completed this date with pt. SW completed the HCP portion of application and will review with physician when he is back in office tomorrow, 09/19. SW to fax to [employer] once completed and will send to internal scanning. Pt confirms he has another bottle of Xtandi remaining at home. No other needs identified at this time. PLAN: Assist with financial support applications and Continue follow up as needed F/U APPOINTMENT: PRN Assigned SW listed in Care Team tab: Yes GEMMA Heck [facility] 09-18-2024 Miscellaneous Notes SOCIAL WORK FOLLOW UP NOTE: CANCER CENTER Date of service: September 18, 2024 Amie Killian is being seen for a follow up social work visit. Today's visit includes: patient TOPICS ADDRESSED: SW met with pt this date and reviewed mailing received from [employer]. SW discussed with pt needing to reapply for the [employer] assistance program. Pt in agreement. Application completed this date with pt. SW completed the HCP portion of application and will review with physician when he is back in office tomorrow, 09/19. SW to fax to [employer] once completed and will send to internal scanning. Pt confirms he has another bottle of Xtandi remaining at home. No other needs identified at this time. PLAN: Assist with financial support applications and Continue follow up as needed F/U APPOINTMENT: PRN Assigned SARAH listed in Care Team tab: Yes GEMMA Heck documented in this encounter [facility] 09-17-2024 Telephone encounter Note Noted; I sent in a new prescription in case he needed it Apollo Melo MD [facility] 09-17-2024 Miscellaneous Notes Noted; I sent in [...] be the same medication. Please call the [employer] Patient is also asking if doctor has samples of the medication because he is running low on the medication. Patient has been identified by name and birthdate. Duration of symptoms: N/A Person calling: self Call patient at: on cell [phone] (home) [phone] (cell) Was an appointment scheduled: No Closing statement: Results or non-symptom based questions: Thank you for calling [facility], your call will be returned within the next business day. Nemo Pena documented in this encounter [facility] 09-13-2024 Telephone encounter Note Patient calls and message below reviewed. Patient reports he is completely out of inhaler and going to have to just pay for the medication. Patient didn't want to contact insurance to check on a covered equivalent medication. Patient reports the first month is 297 which is his deductible. Juliana Parker RN [facility] 09-12-2024 Telephone encounter Note OK to call the insurance company and see what is required for a reduction, or if they jeremie an equivalent medication Apollo Melo MD [facility] 09-12-2024 Telephone encounter Note See message below from pt and advise. Do you want to do the Tier reduction or switch inhalers? We also do not carry samples in the office. Zakia Elam MA [facility] 09-12-2024 Telephone encounter Note Alejandro is calling [...] the same medication. Please call the insurance [employer] [phone] Patient is also asking if doctor has samples of the medication because he is running low on the medication. Patient has been identified by name and birthdate. Duration of symptoms: N/A Person calling: self Call patient at: on cell [phone] (home) [phone] (cell) Was an appointment scheduled: No Closing statement: Results or non-symptom based questions: Thank you for calling [facility], your call will be returned within the next business day. Nemo Pena [facility] 09-03-2024 Telephone encounter Note Prescription Refill Information [...] Porter RN September 03, 2024 7:43 AM [facility] 09-03-2024 Miscellaneous Notes Prescription Refill Information The [...] 2024 7:43 AM documented in this encounter [facility] 07-26-2024 Note HNO ID: [id number] Author: LOIS MARIE RPFT Service: ? Author Type: Respiratory Therapist Type: Progress Notes Filed: 07/26/2024 08:24 Note Text: PULM FUNCTION: Provider: Apollo Melo MD Assisting Tech: Lois Marie RPFT Spirometry w/BD: 1 [facility] 07-26-2024 History of Presen t illness Narrative PULM FUNCTION: Provider: Apollo Melo MD Assisting Tech: Lois Marie RPFT Spirometry w/BD: 1 documented in this encounter [facility] 07-16-2024 History of Presen t illness Narrative [...] is over he will go to the [facility]. Also does yard work. Follows with [...] Relation Age of Onset Heart Father of [place] age 80 Stroke Mother Heart Brother Patient [...] Past Histories independently gathered by the clinical supportability engineer and the remaining scribed note accurately describes [...] Zakia Elam MA documented in this encounter [facility] 07-16-2024 Note HNO ID: [id number] Author: APOLLO MELO MD Service: ? Author [...] is over he will go to the [facility]. Also does yard work. Follows with [...] Relation Age of Onset Heart Father of [place] age 80 Stroke Mother Heart Brother Patient [...] without murmur, ga (more content not included)... [facility] 07-04-2024 Telephone encounter Note OK to refill as ordered pAollo Melo MD [facility] 07-04-2024 Miscellaneous Notes OK to refill as [...] 2024 10:45 AM documented in this encounter [facility] 07-04-2024 Telephone encounter Note Prescription Refill Information [...] Prater LPN July 04, 2024 10:45 AM [facility] 07-04-2024 Note HNO ID: [id number] Author: FRANCISCO JAVIER PEREZ MD Service: ? [...] Relation Age of Onset Heart Father of [place] age 80 Stroke Mother Heart Brother Social [...] which included preparing to see the patient, [id number] patient care, completing clinical documentation, obtaining and/or reviewing separately obtained history, performing a medically appropriate examination, counseling and educating the patient/family/caregiver, independently interpreting results (not separately reported), and communicating results to the patient/family/ (more content not included)... [facility] 07-04-2024 History of Presen t illness [...] Relation Age of Onset Heart Father of [place] age 80 Stroke Mother Heart Brother Social [...] which included preparing to see the patient, ikdd-[id number] patient care, completing clinical documentation, obtaining and/or reviewing separately obtained history, performing a medically appropriate examination, counseling and educating the patient/family/caregiver, independently interpreting results (not separately reported), and communicating results to the patient/family/caregiver. Electronically Signed: Francisco Javier Perez MD July 04, 2024 documented in this encounter [facility] 06-28-2024 Telephone encounter Note Patient has been [...] daily. Please review and advise. Delmis Randle [facility] Work Phone: 06-28-2024 Miscellaneous Notes Patient has [...] advise. Delmis Randle documented in this encounter [facility] 04-09-2024 Note HNO ID: [id number] Author: PACO LANDEROS RN Service: ? Author Type: Registered Nurse Type: Progress Notes Filed: 04/09/2024 07:33 Note Text: Patient is here for IVAD port flush/blood draw per [facility] protocol. IVAD is located in right upper [...] edema or tenderness. Patient tolerated procedure well. [facility] 04-09-2024 History of Presen t illness Narrative Patient is here for IVAD port flush/blood draw per [facility] protocol. IVAD is located in right upper [...] tolerated procedure well. documented in this encounter [facility] 04-08-2024 Telephone encounter Note Notes added to appointment notes. Schedule updated. Patient sent several my chart messages- all addressed. [facility] Work Phone: 04-08-2024 Miscellaneous Notes Notes added to appointment notes. Schedule updated. Patient sent several my chart messages- all addressed. documented in this encounter [facility] 01-30-2024 Telephone encounter Note Patient stopped in to draw A1C lab. He said he was told he could come at any time but the can not be pulled until 03/13/2024 because of the req date. Please advise if you need this lab sooner and let patient know. I said I would put a note to his provider for him. ABBE Cabrera [facility] 01-30-2024 Miscellaneous Notes Patient stopped in to [...] Arin Barron, PSS documented in this encounter [facility] 01-26-2024 History of Presen t illness Narrative [...] Albuterol inhaler. Does not follow with a [employer] C[employer] Supervisor. Hem/Onc: Follows routinely with Hem/Onc for diffuse [...] watch his diet and goes to the [facility] more to exercise. Follows with Vascular, [...] Relation Age of Onset Heart Father of [place] age 80 Stroke Mother Heart Brother Patient [...] Past Histories independently gathered by the clinical supportability engineer and the remaining scribed note accurately describes [...] Anita Inman MA documented in this encounter [facility] 01-18-2024 Telephone encounter Note Per Dr. Lacy HARRISON is WNL, continue current treatment plan. PSA is stable. Patient notified. Alesia Schroeder LPN [facility] 01-18-[address] Lacy HARRISON is WNL, continue current treatment plan. PSA is stable. Patient notified. Alesia Schroeder LPN Patient here for treatment today and has noticed that his PSA has been slightly rising with the last 2 Lupron/Zometa appointments,. Please advise., documented in this encounter [facility] 01-18-2024 Telephone encounter Note Patient here for treatment today and has noticed that his PSA has been slightly rising with the last 2 Lupron/Zometa appointments,. Please advise., [facility] 11-28-2023 History of Presen t illness Narrative Images from the original note were not included. [facility] DEPARTMENT OF VASCULAR SURGERY OUTPATIENT VISIT DATE [...] TIME: 8:29 AM documented in this encounter [facility] 10-27-2023 History of Presen t illness Narrative patient had OV with Dr Perez please refer to OV dated today for VS and assessment documented in this encounter [facility] 10-27-2023 History of Presen t illness Narrative [...] Relation Age of Onset Heart Father of [place] age 80 Stroke Mother Heart Brother Social [...] which included preparing to see the patient, [id number]-uy-[id number] patient care, completing clinical documentation, obtaining and/or reviewing separately obtained history, performing a medically appropriate examination, counseling and educating the patient/family/caregiver, independently interpreting results (not separately reported), and communicating results to the patient/family/caregiver. Electronically Signed: Francisco Javier Perez MD October 27, 2023 documented in this encounter [facility] 07-21-2023 Nurse Note Pt here for injection of Lupron. Given IM in right buttocks. Pt tolerated well. Radha Medina LPN documented in this encounter [facility] 07-21-2023 History of Presen t illness Narrative Patient is here for IVAD port flush/blood draw per [facility] protocol. IVAD is located in right upper [...] tolerated procedure well. documented in this encounter [facility] 07-17-2023 Instructions Zakia Elam Ma - 07/17/2023 3:19 PM EST Okay to get Covid vaccine at Pharmacy. Check into RSV vaccine through Pharmacy. documented in this encounter [facility] 07-17-2023 History of Presen t illness Narrative [...] and golfing more. Trying to go the [employer] more and exercise, due to not being able to play golf during the colder months. Trying to also eat better. Wants to gain a little weight. No pain with walking. Notes if he does too much walking his right leg will hurt, but if he sits and rests for a little bit this will resolve. Derm - Was referred to [facility] Derm last visit for concerns of [place] [...] Relation Age of Onset Heart Father of [place] age 80 Stroke Mother Heart Brother Patient [...] Past Histories independently gathered by the clinical supportability engineer and the remaining scribed note accurately describes my personal service to the patient. Medical Decision Making: Problems: Moderate: 2+ stable chronic illnesses Risk: Moderate: Drug management Medical Decision Making Level: 4 - Moderate Apollo Melo MD The documentation for this note was completed by Zaika Elam Ma acting as scribe for Apollo Melo MD. July 17, 2023 3:14 PM. Zakia Elam Ma documented in this encounter [facility] 06-29-2023 Miscellaneous Notes OK to refill as ordered Apollo Melo MD Patient last visit with PCP 01/13/23 Follow up appointment scheduled 07/17/23 Zita Faye Ma documented in this encounter [facility] 05-22-[address]Kathleen Corona is only at our location here in [place] on Tuesdays and she does not have any opening for tomorrow, the patient is currently scheduled to see her next week Monday05/30/23. The soonest appointment has anywhere is Monday05/29/23 @ the [facility]. I called and spoke to Alejandro and [...] May 19, 2023 documented in this encounter [facility] 05-16-2023 Note HNO ID: [id number] Author: Sharda Plaza RT(R) Service: ? Author [...] RDMS, RVT May 16, 2023 9:58 AM [facility] 05-16-2023 Miscellaneous Notes Pt notified of results. Sandra Main LPN Please call patient and notify that DVT ultrasound was negative for any findings. Patient needs to follow-up with oncology. documented in this encounter [facility] 05-16-2023 History of Presen t illness Narrative [...] 2023 9:58 AM documented in this encounter [facility] 05-16-2023 History of Presen t illness Narrative [...] 2023 8:00 AM documented in this encounter [facility] 05-16-2023 History of Presen t illness Narrative [...] history is provided by the patient. No armor reconnaissance specialist was used. Review of Systems Constitutional: Negative. [...] Relation Age of Onset Heart Father of [place] age 80 Stroke Mother Heart Brother Social [...] foci compatible with known osseous metastatic disease Pipe Stripper: MATHEUS Transcribe Date/Time: May 16 2023 8:20A IMPRESSION IMPRESSION: Negative study for proximal DVT in the right lower extremity. Negative study for calf DVT in the right lower extremity. Negative study for superficial thrombophlebitis in the imaged segments of the right lower extremity. Pipe Stripper: [facility] Transcribe Date/Time: May 16 2023 10:37A Dictated by : NICHO RAJAN MD Was instructed to follow-up with oncology. Patient was okay with this care plan. Dictated by : JEN RONDON MD documented in this encounter [facility] 05-12-2023 Nurse Note Pt denies any jaw pain or dental issues. Assessment remains unchanged since OV 05/11/23 documented in this encounter [facility] 04-28-2023 History of Presen t illness Narrative [...] Isela Solano RN documented in this encounter [facility] 04-28-2023 Nurse Note Pt here for injection of Lupron. Given IM in left buttocks. Pt tolerated well. Radha Medina LPN documented in this encounter [facility] 03-02-2023 History of Presen t illness Narrative [...] 2023 3:16 PM documented in this encounter [facility] 03-02-2023 History and physical note RADIOLOGY SERVICE [...] safety can be found using this link: [email or web address]%20N [email or web address]%[email or web address] df SIGNATURE: RT Geno(R) PATIENT NAME: Amie Killian DATE: March 02, 2023 TIME: 08:15 AM PAGER/CONTACT #: documented in this encounter [facility] 01-13-2023 History of Past i llness Narrative Problem Noted Date Diagnosed Date Resolved Date Protein-calorie malnutrition , unspecified severity 01/13/2023 07/17/2023 Elevated PSA 10/20/2011 08/06/2014 documented as of this encounter (statuses as of 07/18/2023) [facility]05[facility] History of Past illness Narrative* Problem Noted Date Diagnosed Date Resolved Date Protein-calorie malnutrition , unspecified severity 01/13/2023 07/17/2023 Elevated PSA 10/20/2011 08/06/2014 documented as of this encounter (statuses as of 07/21/2023) [facility]05[facility] History of Past illness Narrative* Problem Noted Date Diagnosed Date Resolved Date Protein-calorie malnutrition , unspecified severity 01/13/2023 07/17/2023 Elevated PSA 10/20/2011 08/06/2014 documented as of this encounter (statuses as of 08/02/2023) [facility] History of Past illness Narrative* Problem Noted Date Diagnosed Date Resolved Date Protein-calorie malnutrition , unspecified severity 01/13/2023 07/17/2023 Elevated PSA 10/20/2011 08/06/2014 documented as of this encounter (statuses as of 08/18/2023) [facility] History of Past illness Narrative* Problem Noted Date Diagnosed Date Resolved Date Protein-calorie malnutrition , unspecified severity 01/13/2023 07/17/2023 Elevated PSA 10/20/2011 08/06/2014 documented as of this encounter (statuses as of 10/27/2023) [facility] History of Past illness Narrative* Problem Noted Date Diagnosed Date Resolved Date Protein-calorie malnutrition , unspecified severity 01/13/2023 07/17/2023 Elevated PSA 10/20/2011 08/06/2014 documented as of this encounter (statuses as of 10/27/2023) [facility]05[facility]05[facility] History of Past illness Narrative* Problem Noted Date Diagnosed Date Resolved Date Protein-calorie malnutrition , unspecified severity 01/13/2023 07/17/2023 Elevated PSA 10/20/2011 08/06/2014 documented as of this encounter (statuses as of 11/28/2023) [facility]05[facility]05[facility] History of Past illness Narrative* Problem Noted Date Diagnosed Date Resolved Date Protein-calorie malnutrition , unspecified severity 01/13/2023 07/17/2023 Elevated PSA 10/20/2011 08/06/2014 documented as of this encounter (statuses as of 12/15/2023) [facility]05-05-2023 Miscellaneous Notes* Telephone Encounter - Erlinda Manuel LPN - 01/13/2023 1:07 PM EDT [facility] Patient asked to have Dermatology referral faxed to Dr Alvaro Vieira at [phone]. Printed office notes, consult, face sheet, insurance card copyand faxed as requested. documented in this encounterC[facility] Instructions* Patient Instructions* Anita Inman Ma - 01/13/2023 8:47 AM EDT Call [facility] Dermatology to make your appointment. Referral and info faxed to their office. [address] [address] documented in this encounterC[facility] History of Present illness Narrative* Apollo Melo [...] Relation Age of Onset Heart Father of [place] age 80 Stroke Mother Heart Brother Patient [...] inner ear tragus; scabbed raised area left mandaeism.. Lungs: Lungs clear to auscultation. No wheezing, [...] [place] or SCC Consult Derm-referral faxed to [facility] Pt to call and scheduled. Follow up in 6 months with fasting labs prior. I agree with the Chief Complaint, ROS, and Past Histories independently gathered by the clinical supportability engineer and the remaining scribed note accurately describes [...] AM. Anita Inman Ma documented in this encounterC[facility] Miscellaneous Notes* Telephone Encounter - Maliha Lacy [...] handout, [facility] Medication Information handout: Xtandi, and [facility] Oral Chemotherapy booklet: Yes, will be mailed [...] minutes Maliha Lacy RN documented in this encounterC[facility] History of Present illness Narrative* Claudia Keating - 11/30/2022 9:00 AM EDT [facility] received prescription(s) for Xtandi from Dr. Gagnon's office. Benefits investigation was conducted, indicating that a prior authorization is required by patient's insurance plan with [employer]. Encounter will be updated once prior authorization has been submitted by [facility]. * Bella Louie RN - 11/30/2022 9:00 AM EDT [facility] received prescription(s) for Xtandi from Dr. Ernandez's office. PAwas approved with details listed below. Plan Name: Yamsafer Plan Agent/Mckinney: [id number] Phone/ PA reference number: [id number] Approval Dates: Through 05/29/23 Prescriptions will now be processed through [facility] for determination of next steps. BELLA Louie RN Addendum November 30, 2022 10:28 AM : First copay is high (>$2900) due to the medicare coverage gap and future fills are expected to be ~$700 monthly thereafter. There is no funding available for patients diagnosis at this time. [facility]. Note will be update once pt is contacted. Nanette White, PharmD Clinical Pharmacist, Oncology [facility] P: , F: Pool: P [facility] Pool #: [id number] documented in this encounterC[facility] Miscellaneous Notes* Telephone Encounter - Delmis Piedra [...] just prior to visit documented in this encounterC[facility] History of Present illness Narrative* Lisha Ernandez [...] cc: Sean Melo MD documented in this encounterC[facility]03[facility] Nurse Note* Mariela Finley RN - 11/25/2022 10:11 AM EDT Pt denies any jaw pain or dental issues documented in this [facility]02-24-2023 History of Present illness Narrative* Radha Medina LPN - 11/04/2022 9:17 AM EST documented in this [facility]02-24-2023 Nurse Note* Radha Medina LPN - 11/04/2022 9:05 AM EST Pt here for injection of Lupron. Given IM in right buttocks. Pt tolerated well. Radha Medina LPN documented in this [facility]01-09-2023 Miscellaneous Notes* Telephone Encounter - Zakia Elam Ma - 09/19/2022 1:42 PM EST See pt message and advise. Last OV; 07/15/22. Zakia Elam Ma documented in this [facility]12-22-2022 History of Present illness Narrative* Paco Landeros RN - 09/01/2022 7:17 AM EST Patient is here for IVAD port flush/blood draw per [facility] protocol. IVAD is located in right upper [...] Patient tolerated procedure well. documented in this [facility]12-19-2022 History of Present illness Narrative* Sean Rodriguez MD - 08/29/2022 8:35 AM EST PATIENT NAME: Alejandro Killian. CLINIC NO: [id number]. ATTENDING PHYSICIAN: Sean Rodriguez MD. DATE OF [...] pain and jaundice. 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 Portions of this documentation were copied and pasted from previous office visit notes in order to provide a cohesive continuity of the history. The note has been reviewed and edited and updated as necessary. Sean Rodriguez MD Cc: Dr. Apollo Melo documented in this encounterC[facility]12-[facility] History of Present illness Narrative* Olivia Hook [...] PERIPHERAL IV DATA: power port accessed by Didi-Dache SIGNED BY: RT Panfilo(R) August 16, 2022 1:03 PM documented in this encounterC[facility]12-06-2022 History of Present illness Narrative* Liv Chavez RN - 08/16/2022 8:51 AM EST Blood return verified. Gripper hooked to auto-injector. Ct completed. Line flushed with 20cc NSS and 5cc Heparin. Gripper D/C'd. Light dressing applied. Pt tolerated procedure well. No C/O's. Site without complication noted. Liv Chavez RN documented in this encounterC[facility]12-01-2022 Miscellaneous Notes* Telephone Encounter - Sean Rodriguez [...] and advise. Nicolasa Randle documented in this encounterC[facility]11-04-2022 History of Present illness Narrative* Apollo Melo [...] Relation Age of Onset Heart Father of [place] age 80 Stroke Mother Heart Brother Patient [...] nourished.. Skin: 1 cm scabbed lesions right mandaeism, smaller scabbed area right lateral cheek. Lungs: [...] Lymph% 06/28/2022 19.0 Abs Lymph 06/28/2022 2.18 Creek% 06/28/2022 6.4 Abs Creek 06/28/2022 0.73 Eosin% 06/28/2022 3.1 Abs Eosin [...] Lymph% 05/20/2022 16.2 Abs Lymph 05/20/2022 1.69 Creek% 05/20/2022 5.2 Abs Creek 05/20/2022 0.54 Eosin% 05/20/2022 3.6 Abs Eosin [...] Moderate Apollo Melo MD documented in this encounterC[facility]10-[facility]-2022 Miscellaneous Notes* Telephone Encounter - Chavez Bernal [...] PCP Kyleigh Nicholson MA documented in this encounterC[facility]10-18-2022 History of Present illness Narrative* Sean Rodriguez MD - 06/28/2022 9:51 AM EDT PATIENT NAME: Alejandro Killian. CLINIC NO: [id number]. ATTENDING PHYSICIAN: Sean Rodriguez MD. DATE OF [...] pain and jaundice. 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 In the interim, he was transferred to [facility] for consideration of ERCP or PTHC [...] Abs Lymph 1.00 - 4.00 k/uL 2.18 Creek% % 6.4 Abs Creek <0.87 k/uL 0.73 Eosin% % 3.1 Abs [...] in August. 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 Portions of this documentation were copied and pasted from previous office visit notes in order to provide a cohesive continuity of the history. The note has been reviewed and edited and updated as necessary. Sean Rodriguez MD Cc: Dr. Apollo Melo documented in this encounterCleveland Clinic [facility]09-22-2022 Miscellaneous Notes* Telephone Encounter - Yolanda Lebron [...] value. Dustin Shah DO documented in this encounterC[facility] Clinic [facility]09-09-2022 History of Present illness Narrative* Paco Landeros RN - 05/20/2022 7:45 AM EDT Patient is here for IVAD port flush/blood draw per [facility] protocol. IVAD is located in right upper [...] Patient tolerated procedure well. documented in this encounterCleveland Clinic [facility]08-24-2022 Miscellaneous Notes* Telephone Encounter - Zita Faye Ma - 05/04/2022 8:57 AM EDT Images from the original note were not included. PA approved, patient was sent [employer] message. Zita Faye Ma * Telephone Encounter - Zita Faye Ma - 05/03/2022 2:55 PM EDT Prior Authorization has been completed online at [employer] for Nelia Martinez, will await response. [id number] Please keep encounter open until final decision has been received and documented from insurance company. Zita Faye MA documented in this encounterC[facility] Clinic [facility]07-29-2022 Miscellaneous Notes* Telephone Encounter - Mona King [...] provided. Maliha Lacy RN documented in this encounterC[facility] Clinic [facility]07-25-2022 History of Present illness Narrative* Sean Rodriguez MD - 04/04/2022 10:13 AM EDT PATIENT NAME: Alejandro Killian. CLINIC NO: [id number]. ATTENDING PHYSICIAN: Sean Rodriguez MD. DATE OF [...] pain and jaundice. 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 In the interim, he was transferred to [facility] for consideration of ERCP or PTHC [...] Abs Lymph 1.00 - 4.00 k/uL 1.82 Creek% % 6.7 Abs Creek <0.87 k/uL 0.64 Eosin% % 2.6 Abs [...] in August. 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 Apollo Melo documented in this encounterC[facility] Clinic [facility]07-25-2022 History of Present illness Narrative* Paco Landeros RN - 04/04/2022 7:35 AM EDT Patient is here for IVAD port flush/blood draw per [facility] protocol. IVAD is located in right upper [...] Patient tolerated procedure well. documented in this encounterCleveland Clinic [facility]07-18-2022 History of Present illness Narrative* Jaqueline Gonzalez, [facility] - 03/28/2022 3:00 PM EDT Images from the original note were not included. [facility] Department of Pharmacy Oncology Pharmacy Medication Education [...] Yes Medication Education: Administration and schedule: Abiraterone [id number] po daily on empty stomach Potential side effects discussed: fatigue, edema, HTN, hyperglycemia, constipation, increased LFT's, URI PO chemo: Verified patient understands where to store the drug. Yes Verified that patient understands prescription delivery, benefit investigation and refill process. Yes; patient awaits word from [employer] to see if he [...] patient Jaqueline Gonzalez RPh documented in this encounterCleveland Clinic [facility]07-08-2022 Miscellaneous Notes* Telephone Encounter - Sean Rodriguez [...] pharmacy. Alesia Schroeder LPN documented in this encounterCleveland Clinic [facility]07-08-2022 Miscellaneous Notes* Telephone Encounter - Maliha Lacy [...] minutes Maliha Lacy RN documented in this encounterC[facility] Clinic [facility]06-27-2022 History of Present illness Narrative* Sean Rodriguez MD - 03/07/2022 11:07 AM EDT PATIENT NAME: Alejandro Killian. CLINIC NO: [id number]. ATTENDING PHYSICIAN: Sean Rodriguez MD. DATE OF [...] pain and jaundice. 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 Apollo Melo documented in this encounterCleveland Clinic [facility]06-27-2022 History of Present illness Narrative* Lisa Curiel - 03/07/2022 9:34 AM EDT [facility] received prescription(s) for Abiraterone from Dr. Rodriguez's office.Benefits investigation was conducted, indicating that a prior authorization is required by patient's insurance plan with [employer]. Encounter will be updated once prior authorization has been submitted by [facility]. Lisa Curiel CPhT [facility], Oncology P: / F: documented in this encounterCleveland Clinic [facility]06-24-2022 History of Present illness Narrative* RT Corazon(R) [...] 2022 TIME: 1:45 PM documented in this encounterCleveland Clinic [facility]06-24-2022 History of Present illness Narrative* THERESA LoraR) [...] 07:45 AM PAGER/CONTACT #: documented in this encounterCleveland Clinic [facility]06-17-2022 Nurse Note* Radha Medina LPN - 02/25/2022 9:48 AM EDT Pt here for injection of Lupron. Given IM in left buttock. Pt tolerated well. Radha Medina LPN documented in this encounterCleveland Clinic [facility]06-17-2022 Miscellaneous Notes* Telephone Encounter - Zakia Elam Ma - 02/25/2022 8:20 AM EDT See message from pt and advise. Zakia Elam Ma documented in this encounterCleveland Clinic [facility]06-14-2022 History of Present illness Narrative* Amanda Corona DO - 02/22/2022 9:34 AM EDT This office note has been dictated. Amanda Corona DO documented in this encounterCleveland Clinic [facility]05-03-2022 History of Present illness Narrative* Apollo Melo [...] Relation Age of Onset Heart Father of [place] age 80 Stroke Mother Heart Brother Patient [...] Lymph% 11/15/2021 19.2 Abs Lymph 11/15/2021 1.53 Creek% 11/15/2021 6.9 Abs Creek 11/15/2021 0.55 Eosin% 11/15/2021 5.0 Abs Eosin [...] Past Histories independently gathered by the clinical supportability engineer and the remaining scribed note accurately describes [...] AM. Anita Inman Ma documented in this encounterCleveland Clinic [facility]04-15-2022 Nurse Note* Aracelis Estrella RN - 12/24/2021 12:05 PM EDT Abdomen soft non-distended. Will continue to monitor. * Aracelis Estrella RN - 12/24/2021 11:18 AM EDT [facility] PRE-OP NURSING HAND OFF NOTE SBAR Hand off given to Candelario Ospina RN. Hand off was communicated verbally and at the patient's bedside and all questions were answered. Aracelis Estrella RN documented in this encounterCleveland Clinic [facility]04-15-2022 History and physical note * Reena Kenny [...] Relation Age of Onset Heart Father of [place] age 80 Stroke Mother Heart Brother The review of systems data was entered by the nurse and reviewed by fl Nursing Notes: Lida Mendoza 11/15/2021 9:20 AM [...] has no further questions. documented in this encounterCleveland Clinic [facility]03-08-2022 Miscellaneous Notes* Telephone Encounter - Harrison Shultz - 11/16/2021 3:05 PM EST 12-24-2021 [facility] documented in this encounterCleveland Clinic [facility] Hospital08-30-2021 History of Present illness Narrative* Joyce Britton, [...] 10, 2021 8:01 AM documented in this encounterCleveland Clinic [facility]02-09[facility] History of Past illness Narrative* Problem Noted Date Resolved Date Elevated PSA 10/20/2011 08/06/2014 documented as of this encounter (statuses as of 12/13/2021) [address]09-2012 History of Past illness Narrative* Problem Noted Date Resolved Date Elevated PSA 10/20/2011 08/06/2014 documented as of this encounter (statuses as of 12/24/2021) [facility] of [facility] Narrative* Problem Noted Date Resolved Date Elevated PSA 10/20/2011 08/06/2014 documented as of this encounter (statuses as of 12/25/2021) [address]09-2012 History of Past illness Narrative* Problem Noted Date Resolved Date Elevated PSA 10/20/2011 08/06/2014 documented as of this encounter (statuses as of 01/11/2022) [address]09-2012 History of Past illness Narrative* Problem Noted Date Resolved Date Elevated PSA 10/20/2011 08/06/2014 documented as of this encounter (statuses as of 02/22/2022) [facility] Narrative* Problem Noted Date Resolved Date Elevated PSA 10/20/2011 08/06/2014 documented as of this encounter (statuses as of 02/25/2022) [address]-2012 History of Past illness Narrative* Problem Noted Date Resolved Date Elevated PSA 10/20/2011 08/06/2014 documented as of this encounter (statuses as of 02/25/2022) [facility] Narrative* Problem Noted Date Resolved Date Elevated PSA 10/20/2011 08/06/2014 documented as of this encounter (statuses as of 03/04/2022) [facility] Narrative* Problem Noted Date Resolved Date Elevated PSA 10/20/2011 08/06/2014 documented as of this encounter (statuses as of 03/05/2022) [address] [place] [address]09-2012 History of Past illness Narrative* Problem Noted Date Resolved Date Elevated PSA 10/20/2011 08/06/2014 documented as of this encounter (statuses as of 03/05/2022) [facility] Narrative* Problem Noted Date Resolved Date Elevated PSA 10/20/2011 08/06/2014 documented as of this encounter (statuses as of 03/05/2022) [address]2012 History of Past illness Narrative* Problem Noted Date Resolved Date Elevated PSA 10/20/2011 08/06/2014 documented as of this encounter (statuses as of 03/07/2022) [address]2012 History of Past illness Narrative* Problem Noted Date Resolved Date Elevated PSA 10/20/2011 08/06/2014 documented as of this encounter (statuses as of 03/08/2022) [address]2012 History of Past illness Narrative* Problem Noted Date Resolved Date Elevated PSA 10/20/2011 08/06/2014 documented as of this encounter (statuses as of 03/18/2022) [address]2012 History of Past illness Narrative* Problem Noted Date Resolved Date Elevated PSA 10/20/2011 08/06/2014 documented as of this encounter (statuses as of 03/18/2022) [facility] Narrative* Problem Noted Date Resolved Date Elevated PSA 10/20/2011 08/06/2014 documented as of this encounter (statuses as of 03/18/2022) [facility] Narrative* Problem Noted Date Resolved Date Elevated PSA 10/20/2011 08/06/2014 documented as of this encounter (statuses as of 03/28/2022) [address]09[address]2012 History of Past illness Narrative* Problem Noted Date Resolved Date Elevated PSA 10/20/2011 08/06/2014 documented as of this encounter (statuses as of 04/04/2022) [place] [address]2012 History of Past illness Narrative* Problem Noted Date Resolved Date Elevated PSA 10/20/2011 08/06/2014 documented as of this encounter (statuses as of 04/05/2022) [address]2012 History of Past illness Narrative* Problem Noted Date Resolved Date Elevated PSA 10/20/2011 08/06/2014 documented as of this encounter (statuses as of 04/08/2022) [address]09[address]2012 History of Past illness Narrative* Problem Noted Date Resolved Date Elevated PSA 10/20/2011 08/06/2014 documented as of this encounter (statuses as of 05/04/2022) [address]2012 History of Past illness Narrative* Problem Noted Date Resolved Date Elevated PSA 10/20/2011 08/06/2014 documented as of this encounter (statuses as of 05/04/2022) [address]-2012 History of Past illness Narrative* Problem Noted Date Resolved Date Elevated PSA 10/20/2011 08/06/2014 documented as of this encounter (statuses as of 05/18/2022) [address]-2012 History of Past illness Narrative* Problem Noted Date Resolved Date Elevated PSA 10/20/2011 08/06/2014 documented as of this encounter (statuses as of 05/20/2022) [address]-2012 History of Past illness Narrative* Problem Noted Date Resolved Date Elevated PSA 10/20/2011 08/06/2014 documented as of this encounter (statuses as of 05/20/2022) [address]2012 History of Past illness Narrative* Problem Noted Date Resolved Date Elevated PSA 10/20/2011 08/06/2014 documented as of this encounter (statuses as of 06/09/2022) [address]2012 History of Past illness Narrative* Problem Noted Date Resolved Date Elevated PSA 10/20/2011 08/06/2014 documented as of this encounter (statuses as of 06/10/2022) [address]2012 History of Past illness Narrative* Problem Noted Date Resolved Date Elevated PSA 10/20/2011 08/06/2014 documented as of this encounter (statuses as of 06/28/2022) [address]-2012 History of Past illness Narrative* Problem Noted Date Resolved Date Elevated PSA 10/20/2011 08/06/2014 documented as of this encounter (statuses as of 06/29/2022) [address]2012 History of Past illness Narrative* Problem Noted Date Resolved Date Elevated PSA 10/20/2011 08/06/2014 documented as of this encounter (statuses as of 07/04/2022) [address]-2012 History of Past illness Narrative* Problem Noted Date Resolved Date Elevated PSA 10/20/2011 08/06/2014 documented as of this encounter (statuses as of 07/04/2022) [address]2012 History of Past illness Narrative* Problem Noted Date Resolved Date Elevated PSA 10/20/2011 08/06/2014 documented as of this encounter (statuses as of 07/04/2022) [facility]02-09-2012 History of Past illness Narrative* Problem Noted Date Resolved Date Elevated PSA 10/20/2011 08/06/2014 documented as of this encounter (statuses as of 07/15/2022) [address]-2012 History of Past illness Narrative* Problem Noted Date Resolved Date Elevated PSA 10/20/2011 08/06/2014 documented as of this encounter (statuses as of 07/24/2022) [address]2012 History of Past illness Narrative* Problem Noted Date Resolved Date Elevated PSA 10/20/2011 08/06/2014 documented as of this encounter (statuses as of 08/11/2022) [address]2012 History of Past illness Narrative* Problem Noted Date Resolved Date Elevated PSA 10/20/2011 08/06/2014 documented as of this encounter (statuses as of 08/12/2022) [facility]-09-2012 History of Past illness Narrative* Problem Noted Date Resolved Date Elevated PSA 10/20/2011 08/06/2014 documented as of this encounter (statuses as of 08/12/2022) [address]2012 History of Past illness Narrative* Problem Noted Date Resolved Date Elevated PSA 10/20/2011 08/06/2014 documented as of this encounter (statuses as of 08/16/2022) [address]2012 History of Past illness Narrative* Problem Noted Date Resolved Date Elevated PSA 10/20/2011 08/06/2014 documented as of this encounter (statuses as of 08/30/2022) [facility]-2012 History of Past illness Narrative* Problem Noted Date Resolved Date Elevated PSA 10/20/2011 08/06/2014 documented as of this encounter (statuses as of 08/31/2022) [address]2012 History of Past illness Narrative* Problem Noted Date Resolved Date Elevated PSA 10/20/2011 08/06/2014 documented as of this encounter (statuses as of 09/02/2022) [address]2012 History of Past illness Narrative* Problem Noted Date Resolved Date Elevated PSA 10/20/2011 08/06/2014 documented as of this encounter (statuses as of 09/04/2022) [address]2012 History of Past illness Narrative* Problem Noted Date Resolved Date Elevated PSA 10/20/2011 08/06/2014 documented as of this encounter (statuses as of 09/20/2022) [address]2012 History of Past illness Narrative* Problem Noted Date Resolved Date Elevated PSA 10/20/2011 08/06/2014 documented as of this encounter (statuses as of 11/04/2022) [address]2012 History of Past illness Narrative* Problem Noted Date Resolved Date Elevated PSA 10/20/2011 08/06/2014 documented as of this encounter (statuses as of 11/04/2022) [address]2012 History of Past illness Narrative* Problem Noted Date Resolved Date Elevated PSA 10/20/2011 08/06/2014 documented as of this encounter (statuses as of 11/23/2022) [address]2012 History of Past illness Narrative* Problem Noted Date Resolved Date Elevated PSA 10/20/2011 08/06/2014 documented as of this encounter (statuses as of 11/25/2022) [address]2012 History of Past illness Narrative* Problem Noted Date Resolved Date Elevated PSA 10/20/2011 08/06/2014 documented as of this encounter (statuses as of 11/29/2022) [address]2012 History of Past illness Narrative* Problem Noted Date Resolved Date Elevated PSA 10/20/2011 08/06/2014 documented as of this encounter (statuses as of 11/29/2022) [facility]09-2012 History of Past illness Narrative* Problem Noted Date Resolved Date Elevated PSA 10/20/2011 08/06/2014 documented as of this encounter (statuses as of 11/30/2022) [facility]09-2012 History of Past illness Narrative* Problem Noted Date Resolved Date Elevated PSA 10/20/2011 08/06/2014 documented as of this encounter (statuses as of 12/21/2022) [address] History of Past illness Narrative* Problem Noted Date Resolved Date Elevated PSA 10/20/2011 08/06/2014 documented as of this encounter (statuses as of 01/13/2023) [facility]09-2012 History of Past illness Narrative* Problem Noted Date Resolved Date Elevated PSA 10/20/2011 08/06/2014 documented as of this encounter (statuses as of 01/13/2023) [facility]09-2012 History of Past illness Narrative* Problem Noted Date Resolved Date Elevated PSA 10/20/2011 08/06/2014 documented as of this encounter (statuses as of 02/15/2023) [facility]09-2012 History of Past illness Narrative* Problem Noted Date Resolved Date Elevated PSA 10/20/2011 08/06/2014 documented as of this encounter (statuses as of 02/16/2023) [facility]2012 History of Past illness Narrative* Problem Noted Date Resolved Date Elevated PSA 10/20/2011 08/06/2014 documented as of this encounter (statuses as of 03/02/2023) [facility]2012 History of Past illness Narrative* Problem Noted Date Resolved Date Elevated PSA 10/20/2011 08/06/2014 documented as of this encounter (statuses as of 03/02/2023) [facility]09-2012 History of Past illness Narrative* Problem Noted Date Diagnosed Date Resolved Date Elevated PSA 10/20/2011 08/06/2014 documented as of this encounter (statuses as of 04/28/2023) [facility]09-2012 History of Past illness Narrative* Problem Noted Date Diagnosed Date Resolved Date Elevated PSA 10/20/2011 08/06/2014 documented as of this encounter (statuses as of 04/28/2023) [facility]09-2012 History of Past illness Narrative* Problem Noted Date Diagnosed Date Resolved Date Elevated PSA 10/20/2011 08/06/2014 documented as of this encounter (statuses as of 05/11/2023) [address] History of Past illness Narrative* Problem Noted Date Diagnosed Date Resolved Date Elevated PSA 10/20/2011 08/06/2014 documented as of this encounter (statuses as of 05/12/2023) [address]2012 History of Past illness Narrative* Problem Noted Date Diagnosed Date Resolved Date Elevated PSA 10/20/2011 08/06/2014 documented as of this encounter (statuses as of 05/16/2023) [facility]2012 History of Past illness Narrative* Problem Noted Date Diagnosed Date Resolved Date Elevated PSA 10/20/2011 08/06/2014 documented as of this encounter (statuses as of 05/16/2023) [facility]09[facility]2012 History of Past illness Narrative* Problem Noted Date Diagnosed Date Resolved Date Elevated PSA 10/20/2011 08/06/2014 documented as of this encounter (statuses as of 05/17/2023) [facility]09[facility]2012 History of Past illness Narrative* Problem Noted Date Diagnosed Date Resolved Date Elevated PSA 10/20/2011 08/06/2014 documented as of this encounter (statuses as of 05/23/2023) [facility]2012 History of Past illness Narrative* Problem Noted Date Diagnosed Date Resolved Date Elevated PSA 10/20/2011 08/06/2014 documented as of this encounter (statuses as of 06/29/2023) [facility]09[facility]2012 History of Past illness Narrative* Problem Noted Date Diagnosed Date Resolved Date Elevated PSA 10/20/2011 08/06/2014 documented as of this encounter (statuses as of 07/16/2023) [facility]2012 History of Past illness Narrative* Problem Noted Date Diagnosed Date Resolved Date Elevated PSA 10/20/2011 08/06/2014 documented as of this encounter (statuses as of 07/16/2023) [facility] History of Past illness Narrative* Problem Noted Date Diagnosed Date Resolved Date Elevated PSA 10/20/2011 08/06/2014 documented as of this encounter (statuses as of 07/16/2023) [facility] Diagnosis Malignant neoplasm of prostate (HCC)- Primary Malignant neoplasm of prostate [facility] Diagnosis History of colonic polyps Personal history of colonic polyps [facility] Diagnosis Chronic obstructive pulmonary disease, unspecified [...] neoplasm of prostate [facility] Diagnosis 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 Other malignant lymphomas of intra-abdominal lymph nodes Bone metastasis (HCC) Secondary malignant neoplasm of bone and bone marrow Malignant neoplasm of prostate (HCC) Malignant neoplasm of prostate [facility] Diffuse large B-cell lymphoma of intra-abdominal lymph nodes (HCC) Other malignant lymphomas of intra-abdominal lymph nodes Bone metastasis (HCC) Secondary malignant neoplasm of bone and bone marrow Malignant neoplasm of prostate (HCC) Malignant neoplasm of prostate [facility] Diagnosis 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 Other malignant lymphomas of intra-abdominal lymph nodes Lesion of liver Other specified disorders of liver Prostate cancer (HCC) Malignant neoplasm of prostate [facility] Bone metastasis (HCC)- Primary Secondary malignant neoplasm of bone and bone marrow Prostate cancer (HCC) Malignant neoplasm of prostate Diffuse large B-cell lymphoma of intra-abdominal lymph nodes (HCC) Other malignant lymphomas of intra-abdominal lymph nodes [facility] Diagnosis Diffuse large B-cell lymphoma [...] disorders of metabolism [facility] Diagnosis Tobacco abuse Tobacco use disorder [facility] Diagnosis Chronic obstructive pulmonary disease, [...] disorders of metabolism [facility] Diagnosis Malignant neoplasm metastatic to [...] vascular disease, unspecified [facility] Diagnosis Malignant neoplasm metastatic to [...] Other abnormal glucose [facility] Diagnosis Malignant neoplasm metastatic to bone (HCC)- Primary Secondary malignant neoplasm of bone and bone marrow Elevated glucose Other abnormal glucose [facility] Diagnosis Prostate cancer (HCC)- Primary [...] COVID-19 virus infection [facility] Diagnosis Non-Hodgkin lymphoma of intra-abdominal lymph [...] and bone marrow [facility] Diagnosis Non-Hodgkin lymphoma of intra-abdominal lymph [...] and bone marrow [facility] Diagnosis Non-Hodgkin lymphoma of intra-abdominal lymph [...] COPD type (HCC) [facility] Diagnosis Non-Hodgkin lymphoma of intra-abdominal lymph [...] disorders of liver documented in this encounter [facility] note* Diagnosis Non-Hodgkin lymphoma of intra-abdominal lymph [...] mention of complication documented in this encounter [facility] note* Diagnosis Non-Hodgkin lymphoma of intra-abdominal lymph [...] Tobacco use disorder documented in this encounter [facility] note* Diagnosis Non-Hodgkin lymphoma of intra-abdominal lymph [...] vascular disease, unspecified documented in this encounter [facility] note* Diagnosis Non-Hodgkin lymphoma of intra-abdominal lymph [...] COPD type (HCC) [facility] Diagnosis Non-Hodgkin lymphoma of intra-abdominal lymph [...] and bone marrow [facility] Diagnosis Non-Hodgkin lymphoma of intra-abdominal lymph [...] and bone marrow [facility] Diagnosis Non-Hodgkin lymphoma of intra-abdominal lymph [...] neoplasm of prostate [facility] Diagnosis Non-Hodgkin lymphoma of intra-abdominal lymph [...] stenosis, unspecified laterality [facility] Diagnosis Non-Hodgkin lymphoma of intra-abdominal lymph [...] and bone marrow [facility] Diagnosis Non-Hodgkin lymphoma of intra-abdominal lymph [...] neoplasm of prostate [facility] Diagnosis Non-Hodgkin lymphoma of intra-abdominal lymph [...] and bone marrow [facility] Diagnosis Non-Hodgkin lymphoma of intra-abdominal lymph [...] intra-abdominal lymph nodes documented in this encounter [facility] note* Diagnosis Non-Hodgkin lymphoma of intra-abdominal lymph [...] and bone marrow documented in this encounter [facility] note* Diagnosis Onset Date Resolution Status Admit Date Acute chest pain acute February 1:59pm Acute inferior myocardial infarction acute February 18, 2025 1:59pm History of prostate cancer acute February 18, 2025 1:59pm History of COPD chronic February 1:59pm [facility] Work Phone: Reason for referral (narrative)* Outpatient Procedure (Routine) - Closed Specialty Diagnoses / Procedures Referred By Contac t Referred To Contact [facility] Diagnoses History of colonic polyps Procedures COLONOSCOPY SCREENING COLONOSCOPY FLX DX W/COLLJ SPEC WHEN Reena Loya MD [address] [place] [address] [facility] [address] [place] [address] Referral ID Status Reason Start Date Expiration Date V isits Requested Visits Authorized [id number] Closed Auto-Generate d Referral 12/24/2021 01/23/[address] [facility] for referral (narrative)* Outpatient Procedure (Routine) - Pending Review Specialty Diagnoses / Procedures Referred By Contac t Referred [facility] Diagnoses Peripheral arterial disease (HCC) Procedures PVR LEG W/EXC ASHLEE VAS LAB N-INVAS PHYSIOLOGIC STD LXTR ART COMPL BI Amanda Corona DO [address] [place] [address] [facility] [place] [address] [place] [address] Referral ID Status Reason Start Date Expiration Date Visits Requested Visits Authorized [id number] Pending Review Auto-Generat ed Referral 02/22/2022 02/22/[address] [facility] for referral (narrative)* Diagnostic Procedure Only (Routine) - Closed Specialty Diagnoses / Procedures Referred By Contac t Referred To Contact [facility] Diagnoses Malignant neoplasm of prostate (HCC) Procedures NM BONE WHOLE BODY BONE &/JOINT IMAGING WHOLE BODY Sean Rodriguez MD [address] [place] [address] [facility] [address] [place] [address] Referral ID Status Reason Start Date Expiration Date V isits Requested Visits Authorized [id number] Closed Auto-Generate d Referral 03/04/2022 01/01/[address] [facility] for referral (narrative)* Diagnostic Procedure Only (Routine) - Authorized Specialty Diagnoses / Procedures Referred By Contac t Referred To Contact [facility] Diagnoses Prostate cancer (HCC) Bone metastasis (HCC) Procedures NM BONE WHOLE BODY BONE &/JOINT IMAGING WHOLE BODY Sean Rodriguez MD [address] [place] [address] [facility] [address] [place], [place] [id number] Referral ID Status Reason Start Date Expiration Date Visits Requested Visits Authorized [id number] Authorized Auto-Generat ed Referral 02/27/2023 09/28/2023 1 1 * MRI/CT (Routine) - Pending Review Specialty Diagnoses / Procedures Referred By Contac t Referred To Contact CT IMAGING Diagnoses Diffuse large B-cell lymphoma of intra-abdominal lymph nodes (HCC) Prostate cancer (HCC) Bone metastasis (HCC) Procedures CT ABD/PEL W IVCON CT ABD & PELVIS W/CONTRAST Sean Rodriguez MD [address] [place] [address] Ct Imaging Referral ID Status Reason Start Date Expiration Date Visits Requested Visits Authorized [id number] Pending Review Auto-Generat ed Referral 02/27/2023 09/28/[address] [facility] for referral (narrative)* Diagnostic Procedure Only (Urgent) - Closed Specialty Diagnoses / Procedures Referred By Contac t Referred To Contact [facility] Diagnoses Pain of right thigh Procedures US DVT LOWER RIGHT DUP-SCAN XTR VEINS UNILATERAL/LIMITED STUDY Cydney Wolf APRN.[employer] [address] [place] [address] [place] [address] Referral ID Status Reason Start Date Expiration Date V isits Requested Visits Authorized [id number] Closed Auto-Generate d Referral 05/16/2023 06/14/2024 1 1 * Diagnostic Procedure Only (Urgent) - Closed Specialty Diagnoses / Procedures Referred By Contac t Referred To Contact XR IMAGING Diagnoses Pain of right thigh Procedures XR FEMUR GENERAL 2V AP/LAT RIGHT RADIOLOGIC EXAMINATION FEMUR MINIMUM 2 VIEWS Cydney Wolf APRN.[employer]ER [address] [place] [address] [place] [address] Referral ID Status Reason Start Date Expiration Date V isits Requested Visits Authorized [id number] Closed Auto-Generate d Referral 05/16/2023 06/14/[address] [facility] for referral (narrative)* Diagnostic Procedure Only (Urgent) - Closed Specialty Diagnoses / Procedures Referred By Contac t Referred To Contact [facility] Diagnoses Pain of right thigh Procedures US DVT LOWER RIGHT DUP-SCAN XTR VEINS UNILATERAL/LIMITED STUDY Cydney Wolf APRN.CNP [address] [place] [address] Us [id number] Referral ID Status Reason Start Date Expiration Date V isits Requested Visits Authorized [id number] Closed Auto-Generate d Referral 05/16/2023 06/14/[address] [facility] for referral (narrative)* Diagnostic Procedure Only (Routine) - Closed Specialty Diagnoses / Procedures Referred By Contact Referred To Contact [facility] Diagnoses Prostate cancer (HCC) Bone metastasis Procedures NM BONE WHOLE BODY BONE &/JOINT IMAGING WHOLE BODY Sean Rodriguez MD [address] [place] [address] [facility] [address] [place] [address] Referral ID Status Reason Start Date Expiration Date V isits Requested Visits Authorized [id number] Closed Auto-Generate d Referral 02/27/2023 09/28/[address] [facility] for referral (narrative)* Outpatient Procedure (Routine) - Authorized Specialty Diagnoses / Procedures Referred By Contac t Referred To [facility] Diagnoses Peripheral arterial disease (HCC) Procedures PVR ANK/VEGA/TOE [facility] V[facility] LAB NON-INVAS PHYSIOLOGIC STD EXTREMITY ART 2 LEVEL Amanda Corona DO [address] [place] [address] [facility] [place] [address] [place] [address] Referral ID Status Reason Start Date Expiration Date Visits Requested Visits Authorized [id number] Authorized Auto-Generat ed Referral 11/28/2023 11/27/[address] [facility] for referral (narrative)* Diagnostic Procedure Only (Urgent) - Closed Specialty Diagnoses / Procedures Referred By Noam collins Referred To Contact XR IMAGING Diagnoses Pain of right thigh Procedures XR FEMUR GENERAL 2V AP/LAT RIGHT RADIOLOGIC EXAMINATION FEMUR MINIMUM 2 VIEWS Cydney Wolf APRN.CNP [address] [place] [address] Xr Imaging [id number] Referral ID Status Reason Start Date Expiration Date V isits Requested Visits Authorized [id number] Closed Auto-Generate d Referral 05/16/2023 06/14/[address] [facility] for referral (narrative)* Outpatient Procedure (Routine) - Authorized Specialty Diagnoses / Procedures Referred By Noam collins Referred To Contact [facility] Diagnoses Chronic obstructive pulmonary disease, unspecified COPD type (HCC) Tobacco use disorder Procedures SPIROMETRY - BASELINE AND POST DILATOR BRNCDILAT RSPSE SPMTRY PRE&POST-BRNCDILAT ADMApollo Gray MD [address] [place] [address] [facility] [place] [address] [place] [address] Referral ID Status Reason Start Date Expiration Date Visits Requested Visits Authorized [id number] Authorized Auto-Generat ed Referral 07/16/2024 08/15/[address] [facility] for referral (narrative)No reason for referral information availableWSelect [facility] Work Phone: Reason for visit Narrative* Outpatient Procedure (Routine) - Closed Specialty Diagnoses / Procedures Referred By Noam collins Referred To Contact [facility] Diagnoses History of colonic polyps Procedures COLONOSCOPY SCREENING COLONOSCOPY FLX DX W/COLLJ SPEC WHEN PFRMD Reena Kenny MD [address] [place] [address] [facility] [address] [place] [address] Referral ID Status Reason Start Date Expiration Date V isits Requested Visits Authorized [id number] Closed Auto-Generate d Referral 12/24/2021 01/23/[address] [facility] for visit Narrative* Diagnostic Procedure Only (Routine) - Closed Specialty Diagnoses / Procedures Referred By Contac t Referred To Contact [facility] Diagnoses Malignant neoplasm of prostate (HCC) Procedures NM BONE WHOLE BODY BONE &/JOINT IMAGING WHOLE BODY Sean Rodriguez MD [address] [place] [address] [facility] [address] [place] [address] Referral ID Status Reason Start Date Expiration Date V isits Requested Visits Authorized [id number] Closed Auto-Generate d Referral 03/04/2022 01/01/[address] 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 for visit Narrative* Diagnostic Procedure Only (Urgent) - Closed Specialty Diagnoses / Procedures Referred By Contac t Referred To Contact XR IMAGING Diagnoses Pain of right thigh Procedures XR FEMUR GENERAL 2V AP/LAT RIGHT RADIOLOGIC EXAMINATION FEMUR MINIMUM 2 VIEWS Cydney Wolf APRN.WARP TYING MACHINE TENDER [address] [place] [address] [place] [address] Referral ID Status Reason Start Date Expiration Date V isits Requested Visits Authorized [id number] Closed Auto-Generate d Referral 05/16/2023 06/14/2024 1 1 [facility] Summary Purpose Family History No Family History Records Found Relationship Condition Age at Onset Recorded Date/T brice father Cerebrovascular accident (CVA) Unknown Cardiac disease Unknown mother Cerebrovascular accident (CVA) Unknown grandfather Cardiac disease Unknown grandmother Cardiac disease Unknown Advance Directives No Advanced Directives Records FoundDocuments on File Type Date Recorded Patient Toppiece Cutter Expl anation Advance Directive(s) 10/20/2020 2:46 PM Date Activated Date Inactivated Comments 07/14/2020 8:30 AM 07/15/2020 6:43 PM Question Answer Comments DNR Order Discussed With: Patient Documents on File Type Date Recorded Patient Toppiece Cutter Expl anation Advance Directive(s) 10/20/2020 2:46 PM Latest Code Status on File Code Status Date Activated Date Inactivated Comments DNR-CC 07/14/2020 8:30 AM 07/15/2020 6:43 PM DNR Order Discussed With: Patient Latest Code Status on File Code Status Date Activated Date Inactivated Comments Full Code 07/07/2020 10:17 PM Documents on File Type Date Recorded Patient Toppiece Cutter Expl anation Advance Directive(s) 08/26/2021 12:54 PM Advance Directive(s) 08/17/2021 2:55 PM Advance Directive(s) 06/30/2021 10:21 AM Advance Directive(s) 10/20/2020 2:46 PM Advance Directive(s) 07/30/2020 6:16 AM Advance Directive(s) 02/15/2016 7:37 AM Documents on File Type Date Recorded Patient Toppiece Cutter Expl anation Advance Directive(s) 12/24/2021 10:05 AM Advance Directive(s) 08/26/2021 12:54 PM Advance Directive(s) 08/17/2021 2:55 PM Advance Directive(s) 06/30/2021 10:21 AM Advance Directive(s) 10/20/2020 2:46 PM Advance Directive(s) 07/30/2020 6:16 AM Advance Directive(s) 02/15/2016 7:37 AM Documents on File Type Date Recorded Patient Toppiece Cutter Expl anation Advance Directive(s) 12/24/2021 10:05 AM [...] Do you have a Healthcare Power of Spray Ii Painter? No February 18, 2025 2:26pm History of [...] MD lactated ringers infusion Intravenous Continuous Gurvinder Jolyl MD 75 mL/hr at 07/07/202253 labetalol (NORMODYNE;TRANDATE) [...] Ordering Physician Shauna CROUCH SARAH Accession Number [id number] CPT4 Codes 96740 (CT Chest/Abdomen/Pelvis (IV Only)), 30369 (CT Chest w/ Contrast), Q9967 (CT ISOVUE 370MG/[id number]&ML&1) Reason For Exam Obstructive jaundice Rep ort [...] feel the patient should be transferred to [facility] for proper management. Agree with their assessment. [...] fistula, HLD, and Tobacco abuse presented to [facility] on 07/07/[facility] from outside facility ([facility]) was referred to the ER by oncologist [...] (more content not included)... Note HNO ID: [id number] Author: Juan Guzman Service: General Internal Medicine [...] (more content not included)... Note HNO ID: [id number] Author: Elba Orona Service: Hematology/Oncology Author Type: Nurse Practitioner Type: Procedures Filed: 07/10/2020 1:56 PM Note Text: BEDSIDE PROCEDURE NOTE PROCEDURE DATE: July 10, 2020 PROCEDURE START TIME: 1341 PRIMARY PROCEDURALIST: Victor Manuel Orona APRN.WARP TYING MACHINE TENDER SWITCHBOARD CLERK(S): None INFORMED CONSENT: Informed Consent obtained and [...] Anesthesia: 5 mls of 1% Lidocaine Procedure: Joota biopsy system was used. Using aseptic technique, bone marrow aspiration was perfo (more content not included)... Procedure Findings Note HNO ID: [id number] Author: Elba Orona Service: Hematology/Oncology Author Type: Nurse Practitioner Type: Procedures Filed: 07/10/2020 1:56 PM Note Text: BEDSIDE PROCEDURE NOTE PROCEDURE DATE: July 10, 2020 PROCEDURE START TIME: 1341 PRIMARY PROCEDURALIST: Victor Manuel Orona APRN.WARP TYING MACHINE TENDER SWITCHBOARD CLERK(S): None INFORMED CONSENT: Informed Consent obtained and [...] Anesthesia: 5 mls of 1% Lidocaine Procedure: Joota biopsy system was used. Using aseptic technique, [...] 03/18/2022 11:05 AM EDT 650 mg zoledronic uj-wssucupx-4.9NaCl 4 mg iv piggyback 100 mL (ZOMETA) [...] Action Action Date Dose Rate Site zoledronic hv-gyfdcgqr-7.9NaCl 4 mg iv piggyback 100 mL (ZOMETA) [...] Action Action Date Dose Rate Site zoledronic jb-jyedjuem-2.9NaCl 4 mg iv piggyback 100 mL (ZOMETA) [...] Action Action Date Dose Rate Site zoledronic zf-ikvsirsm-3.9NaCl 4 mg iv piggyback 100 mL (ZOMETA) [...] Action Action Date Dose Rate Site zoledronic mh-zqtukdsj-0.9NaCl 4 mg iv piggyback 100 mL (ZOMETA) [...] Sean Rodriguez MD [address] [place] [address] Ct Imaging Referral ID Status Reason Start Date Expiration Date Visits Requested Visits Authorized [id number] Authorized Auto-Generat ed Referral 03/04/2022 04/03/2022 2 2 Specialty Diagnoses / Procedures Referred By Noam collins Referred To Contact CT IMAGING Diagnoses Diffuse large B-cell lymphoma of intra-abdominal lymph nodes (HCC) Bone metastasis (HCC) Prostate cancer (HCC) Langerhans cell histiocytoses (HCC) Procedures CT ABD/PEL W IVCON CT ABD & PELVIS W/CONTRAST Sean Rodriguez MD [address] [place] [address] Ct Imaging Referral ID Status Reason Start Date Expiration Date Visits Requested Visits Authorized [id number] Pending Review Auto-Generat ed Referral 08/16/2022 07/28/2023 1 1 Specialty Diagnoses / Procedures Referred By Noam collins Referred To Contact Dermatology Diagnoses Skin lesion Procedures CONSULT TO DERMATOLOGY Apollo Melo MD [address] [place] [address] Referral ID Status Reason Start Date Expiration Date Visits Requested Visits Authorized [id number] Ref Not Required PCP Requested Referral 01/13/2023 01/13/2024 1 1 Specialty Diagnoses / Procedures Referred By Contac t Referred To Contact CT IMAGING Diagnoses Diffuse large B-cell lymphoma of intra-abdominal lymph nodes (HCC) Prostate cancer (HCC) Bone metastasis Procedures CT ABD/PEL W IVCON CT ABD & PELVIS W/CONTRAST Sean Rodriguez MD [address] [place] [address] [place] [address] Referral ID Status Reason Start Date Expiration Date V isits Requested Visits Authorized [id number] Closed Auto-Generate d Referral 03/02/2023 04/01/2023 1 1 Specialty Diagnoses / Procedures Referred By Contac t Referred To Contact CT IMAGING Diagnoses Diffuse large B-cell lymphoma of intra-abdominal lymph nodes (HCC) Bone metastasis Prostate cancer (HCC) Langerhans cell histiocytoses (HCC) Procedures CT ABD/PEL W IVCON CT ABD & PELVIS W/CONTRAST Sean Rodriguez MD [address] [place] [address] Ct Imaging [facility]95 Referral ID Status Reason Start Date Expiration Date V isits Requested Visits Authorized [id number] Closed Auto-Generate d Referral 08/16/2022 09/15/2022 2 [...] content) DATE CREATED AUTHOR 03/07/2018 [facility] DATE CREATED AUTHOR AUTHOR'S ORGANIZ ATION 07/17/2020 [facility] DATE CREATED AUTHOR AUTHOR'S ORGANIZ ATION 12/04/2020 [facility] DATE CREATED AUTHOR AUTHOR'S ORGANIZ ATION 07/06/2021 [facility] DATE CREATED AUTHOR AUTHOR'S ORGANIZ ATION 05/16/2023 [facility] DATE CREATED AUTHOR AUTHOR'S ORGANIZ ATION 02/17/2025 [facility] DATE CREATED AUTHOR AUTHOR'S ORGANIZ ATION 02/18/2025 [facility] Reason for Visit (unrecogniz ed section and content) Reason Comments Established Patient Specialty Diagnoses / Procedures Referred By Contac t Referred To Contact Diagnoses Malignant neoplasm of prostate (HCC) Diffuse large B-cell lymphoma of intra-abdominal lymph nodes (HCC) Lesion of liver Procedures LEUPROLIDE ACETATE SUSPNSION Sean Rodriguez MD [address] [employer] [place] [id number] [facility] [address] [place] [address] Referral ID Status Reason Start Date Expiration Date V isits Requested Visits Authorized [id number] Authorized 06/13/2021 04/06/2025 16 16 Reason Comments Non-Chemotherapy Treatment Specialty Diagnoses / Procedures Referred By Contac t Referred To Contact Diagnoses Malignant neoplasm of prostate (HCC) Bone metastasis (HCC) Procedures INJECTION, ZOLEDRONIC ACID, 1 MG Sean Rodriguez MD [address] [facility] [place] [address] [facility] [address] [place] [address] Referral ID Status Reason Start Date Expiration Date V isits Requested Visits Authorized [id number] Authorized 03/07/2022 10/22/2023 7 7 Reason Comments Zometa Referral ID Status Reason Start Date Expiration Date V isits Requested Visits Authorized [id number] Authorized 03/07/2022 09/10/2022 99 99 Reason Comments [...] Sean Rodriguez MD [address] [place] [address] [facility] [address] [place] [address] Referral ID Status Reason Start Date Expiration Date V isits Requested Visits Authorized [id number] Authorized 06/13/2021 06/08/2022 4 4 Reason Comments Blood Draw (CVAD) Reason Comments Radiology NM Reason Comments Radiology CT Specialty Diagnoses / Procedures [facility] Ref[facility] To Contact CT IM[facility]ING Diagnoses Malignant neoplasm of prostate (HCC) Diffuse large B-cell lymphoma of intra-abdominal lymph nodes (HCC) Procedures CT ABD/PEL W IVCON CT ABD & PELVIS W/CONTRAST Sean Rodriguez MD [address] [place] [address] Ct Imaging Referral ID Status Reason Start Date Expiration Date Visits Requested Visits Authorized [id number] Authorized Auto-Generat ed Referral 03/04/2022 04/03/2022 2 2 Reason Onset Date Comments SPP Oral Oncology/hematology - Treatment Referra l 03/07/2022 [employer] Insurance Authorization 03/07/2022 Pending PA submission Reason Comments Care Coordination ORAL ANTI-CANCER AGE NTS EDUCATION Reason Onset Date Comments Refill Request 03/18/2022 Reason Comments Patient Education Zytiga follow-up ora l chemo education & medication reconciliation Reason Comments Radiopharmacist - Other ORAL ANTI-CANCE R AGENTS FOLLOW-UP PHONE CALL Reason Comments Insurance Authorization Fluticasone Furo ate Referral ID Status Reason Start Date Expiration Date V isits Requested Visits Authorized [id number] Authorized 06/13/2021 04/14/2023 8 8 Reason Onset Date Comments Refill Request 07/04/2022 Reason Comments Results Low potassium Reason Onset Date Comments Refill Request 08/11/2022 Reason Comments Established Patient Reason Onset Date Comments Refill Request 08/26/2022 Specialty Diagnoses / Procedures [facility] Referred To Contact Diagnoses Malignant neoplasm of prostate (HCC) Bone metastasis (HCC) Procedures INJECTION, ZOLEDRONIC ACID, 1 MG Sean Rodriguez MD [address] [facility] [address] [facility] [address] [place] [address] Reason Comments AVS 11/28/22 Reason Onset Date Comments SPP Oral Oncology/hematology - Treatment Referral 11/30/2022 [employer] Insurance Authorization 11/30/2022 Pending PA Submission, approved Reason Comments 6 Month Exam Reason Comments Fax Derm referral to [facility] Specialty Diagnoses / Procedures [facility] Referred To Contact Diagnoses Malignant neoplasm of prostate (HCC) Diffuse large B-cell lymphoma of intra-abdominal lymph nodes (HCC) Lesion of liver Procedures LEUPROLIDE ACETATE SUSPNSION Sean Rodriguez MD [address] [place] [address] [place] [address] [facility] [address] [place] [address] Referral ID Status Reason Start Date Expiration Date V isits Requested Visits Authorized [id number] Authorized 06/13/2021 04/09/2024 12 12 Specialty Diagnoses / Procedures [facility] Referred To Contact Diagnoses Malignant neoplasm of prostate (HCC) Bone metastasis Procedures INJECTION, ZOLEDRONIC ACID, 1 MG Sean Rodriguez MD [address] [place] [address] [place] [address] [facility] [address] [place] [address] Reason Comments Pain Right upper thigh pa [...] ABD & PELVIS W/CONTRAST Sean Rodriguez MD [address] [place] [address] Ct Imaging [facility]95 Referral ID Status Reason Start Date Expiration Date V isits Requested Visits Authorized [id number] Closed Auto-Generate d Referral 03/02/2023 04/01/2023 1 1 Reason Comments Radiology NM Specialty Diagnoses / Procedures Referred By Contact Referred To Contact MOLECULAR & FUNCTIONAL IMAGING Diagnoses Prostate cancer (HCC) Bone metastasis Procedures NM BONE WHOLE BODY BONE &/JOINT IMAGING WHOLE BODY Sean Rodriguez MD [address] [place] [address] Molecular & Functional Imaging [address] [place] [address] Referral ID Status Reason Start Date Expiration Date V isits Requested Visits Authorized [id number] Closed Auto-Generate d Referral 02/27/2023 09/28/2023 1 1 Specialty Diagnoses / Procedures Referred By Contac t Referred To Contact CT IMAGING Diagnoses Diffuse large B-cell lymphoma of intra-abdominal lymph nodes (HCC) Bone metastasis Prostate cancer (HCC) Langerhans cell histiocytoses (HCC) Procedures CT ABD/PEL W IVCON CT ABD & PELVIS W/CONTRAST Sean Rodriguez MD [address] [place] [address] Ct Imaging [place] [address] Referral ID Status Reason Start Date Expiration Date V isits Requested Visits Authorized [id number] Closed Auto-Generate d Referral 08/16/2022 09/15/2022 2 2 Reason Comments F/U 6 Month Reason Comments Zometa Leuprolide Specialty Diagnoses / Procedures Referred By Contac t Referred To Contact Diagnoses Malignant neoplasm of prostate (HCC) Bone metastasis Procedures INJECTION, ZOLEDRONIC ACID, 1 MG Sean Rodriguez MD [address] [place] [address] [facility] [address] [place] [address] Referral ID Status Reason Start Date Expiration Date V isits Requested Visits Authorized [id number] Authorized 03/07/2022 10/17/2024 12 12 Reason Comments Patient Question Referral ID Status Reason Start Date Expiration Date V isits Requested Visits Authorized [id number] Authorized 03/07/2022 10/17/2024 11 11 Reason Onset Date Comments Refill Request 06/28/2024 Specialty Diagnoses / Procedures [facility] Referred To Contact Diagnoses Malignant neoplasm of prostate (HCC) Bone metastasis Procedures INJECTION, ZOLEDRONIC ACID, 1 MG Sean Rodriguez MD [address] [employer] [place] [id number] [facility] [address] [place] [address] Reason Onset Date Comments Refill Request 07/04/2024 Reason Comments F/U 6 Month Reason Comments Spirometry Specialty Diagnoses / Procedures [facility] Diagnoses Chronic obstructive pulmonary disease, unspecified COPD type (HCC) Tobacco use disorder Procedures SPIROMETRY - BASELINE AND POST DILATOR BRNCDILAT RSPSE SPMTRY PRE&POST-BRNCDILAT Apollo Lott MD [address] [place] [address] [facility] [place] [address] [place] [address] Referral ID Status Reason Start Date Expiration Date V isits Requested Visits Authorized [id number] Closed Auto-Generate d Referral 07/16/2024 08/15/2025 1 1 Reason Comments 2024 Xtandi Assistance Renewal Reason Comments Medication Problem Referral ID Status Reason Start Date Expiration Date V isits Requested Visits Authorized [id number] Authorized 03/07/2022 11/14/2025 16 16 Reason Comments [...] SUSPNSION Francisco Javier Perez MD [address] [place] [address] Phone: tel: Francisco Javier Perez MD [address] [place] [address] Phone: tel: Referral ID Status Reason Start Date Expiration Date V isits Requested Visits Authorized [id number] Authorized 12/19/2024 04/06/2025 [address] Specialty Diagnoses / Procedures Referred By Noam collins Referred To Contact CT IMAGING Diagnoses Lesion of liver Diffuse large B-cell lymphoma of intra-abdominal lymph nodes (HCC) Procedures CT ABD/PEL W IVCON CT ABD & PELVIS W/CONTRAST Francisco Javier Perez MD [address] [place] [address] Phone: tel: [place] [address] Referral ID Status Reason Start Date Expiration Date V isits Requested Visits Authorized [id number] Closed Auto-Generate d Referral 12/19/2024 01/18/2026 1 1 Source Comments (unrecognize d section and content) In the event this informatio n is protected by the Federal Confidentiality of Alcohol and Drug Abuse Patient Records regulations: The Federal rules restrict any use of the information to criminally investigate or prosecute any alcohol or drug abuse patient.[facility] the event this information is protected by the Federal Confidentiality of Alcohol and Drug Abuse Patient Records regulations: The Federal rules restrict any use of the information to criminally investigate or prosecute any alcohol or drug abuse patient.[facility] Hospital[facility] the event this information is protected by the Federal Confidentiality of Alcohol and Drug Abuse Patient Records regulations: The Federal rules restrict any use of the information to criminally investigate or prosecute any alcohol or drug abuse patient.[facility] Hospital[facility] the event this information is protected by the Federal Confidentiality of Alcohol and Drug Abuse Patient Records regulations: The Federal rules restrict any use of the information to criminally investigate or prosecute any alcohol or drug abuse patient.[facility] Hospital[facility] the event this information is protected by the Federal Confidentiality of Alcohol and Drug Abuse Patient Records regulations: The Federal rules restrict any use of the information to criminally investigate or prosecute any alcohol or drug abuse patient.[facility] HospitalIn the event this information is protected by the Federal Confidentiality of Alcohol and Drug Abuse Patient Records regulations: The Federal rules restrict any use of the information to criminally investigate or prosecute any alcohol or drug abuse patient.[facility] HospitalIn the event this information is protected by the Federal Confidentiality of Alcohol and Drug Abuse Patient Records regulations: The Federal rules restrict any use of the information to criminally investigate or prosecute any alcohol or drug abuse patient.[facility] HospitalIn the event this information is protected by the Federal Confidentiality of Alcohol and Drug Abuse Patient Records regulations: The Federal rules restrict any use of the information to criminally investigate or prosecute any alcohol or drug abuse patient.[facility] HospitalIn the event this information is protected by the Federal Confidentiality of Alcohol and Drug Abuse Patient Records regulations: The Federal rules restrict any use of the information to criminally investigate or prosecute any alcohol or drug abuse patient.[facility] HospitalIn the event this information is protected by the Federal Confidentiality of Alcohol and Drug Abuse Patient Records regulations: The Federal rules restrict any use of the information to criminally investigate or prosecute any alcohol or drug abuse patient.[facility] HospitalIn the event this information is protected by the Federal Confidentiality of Alcohol and Drug Abuse Patient Records regulations: The Federal rules restrict any use of the information to criminally investigate or prosecute any alcohol or drug abuse patient.[facility] HospitalIn the event this information is protected by the Federal Confidentiality of Alcohol and Drug Abuse Patient Records regulations: The Federal rules restrict any use of the information to criminally investigate or prosecute any alcohol or drug abuse patient.[facility] HospitalIn the event this information is protected by the Federal Confidentiality of Alcohol and Drug Abuse Patient Records regulations: The Federal rules restrict any use of the information to criminally investigate or prosecute any alcohol or drug abuse patient.[facility] HospitalIn the event this information is protected by the Federal Confidentiality of Alcohol and Drug Abuse Patient Records regulations: The Federal rules restrict any use of the information to criminally investigate or prosecute any alcohol or drug abuse patient.[facility] HospitalIn the event this information is protected by the Federal Confidentiality of Alcohol and Drug Abuse Patient Records regulations: The Federal rules restrict any use of the information to criminally investigate or prosecute any alcohol or drug abuse patient.[facility] HospitalIn the event this information is protected by the Federal Confidentiality of Alcohol and Drug Abuse Patient Records regulations: The Federal rules restrict any use of the information to criminally investigate or prosecute any alcohol or drug abuse patient.[facility] HospitalIn the event this information is protected by the Federal Confidentiality of Alcohol and Drug Abuse Patient Records regulations: The Federal rules restrict any use of the information to criminally investigate or prosecute any alcohol or drug abuse patient.[facility] HospitalIn the event this information is protected by the Federal Confidentiality of Alcohol and Drug Abuse Patient Records regulations: The Federal rules restrict any use of the information to criminally investigate or prosecute any alcohol or drug abuse patient.[facility] HospitalIn the event this information is protected by the Federal Confidentiality of Alcohol and Drug Abuse Patient Records regulations: The Federal rules restrict any use of the information to criminally investigate or prosecute any alcohol or drug abuse patient.[facility] HospitalIn the event this information is protected by the Federal Confidentiality of Alcohol and Drug Abuse Patient Records regulations: The Federal rules restrict any use of the information to criminally investigate or prosecute any alcohol or drug abuse patient.[facility] HospitalIn the event this information is protected by the Federal Confidentiality of Alcohol and Drug Abuse Patient Records regulations: The Federal rules restrict any use of the information to criminally investigate or prosecute any alcohol or drug abuse patient.[facility] HospitalIn the event this information is protected by the Federal Confidentiality of Alcohol and Drug Abuse Patient Records regulations: The Federal rules restrict any use of the information to criminally investigate or prosecute any alcohol or drug abuse patient.[facility] HospitalIn the event this information is protected by the Federal Confidentiality of Alcohol and Drug Abuse Patient Records regulations: The Federal rules restrict any use of the information to criminally investigate or prosecute any alcohol or drug abuse patient.[facility] HospitalIn the event this information is protected by the Federal Confidentiality of Alcohol and Drug Abuse Patient Records regulations: The Federal rules restrict any use of the information to criminally investigate or prosecute any alcohol or drug abuse patient.[facility] HospitalIn the event this information is protected by the Federal Confidentiality of Alcohol and Drug Abuse Patient Records regulations: The Federal rules restrict any use of the information to criminally investigate or prosecute any alcohol or drug abuse patient.[facility] HospitalIn the event this information is protected by the Federal Confidentiality of Alcohol and Drug Abuse Patient Records regulations: The Federal rules restrict any use of the information to criminally investigate or prosecute any alcohol or drug abuse patient.[facility] HospitalIn the event this information is protected by the Federal Confidentiality of Alcohol and Drug Abuse Patient Records regulations: The Federal rules restrict any use of the information to criminally investigate or prosecute any alcohol or drug abuse patient.[facility] HospitalIn the event this information is protected by the Federal Confidentiality of Alcohol and Drug Abuse Patient Records regulations: The Federal rules restrict any use of the information to criminally investigate or prosecute any alcohol or drug abuse patient.[facility] HospitalIn the event this information is protected by the Federal Confidentiality of Alcohol and Drug Abuse Patient Records regulations: The Federal rules restrict any use of the information to criminally investigate or prosecute any alcohol or drug abuse patient.[facility] HospitalIn the event this information is protected by the Federal Confidentiality of Alcohol and Drug Abuse Patient Records regulations: The Federal rules restrict any use of the information to criminally investigate or prosecute any alcohol or drug abuse patient.[facility] HospitalIn the event this information is protected by the Federal Confidentiality of Alcohol and Drug Abuse Patient Records regulations: The Federal rules restrict any use of the information to criminally investigate or prosecute any alcohol or drug abuse patient.[facility] HospitalIn the event this information is protected by the Federal Confidentiality of Alcohol and Drug Abuse Patient Records regulations: The Federal rules restrict any use of the information to criminally investigate or prosecute any alcohol or drug abuse patient.[facility] HospitalIn the event this information is protected by the Federal Confidentiality of Alcohol and Drug Abuse Patient Records regulations: The Federal rules restrict any use of the information to criminally investigate or prosecute any alcohol or drug abuse patient.[facility] HospitalIn the event this information is protected by the Federal Confidentiality of Alcohol and Drug Abuse Patient Records regulations: The Federal rules restrict any use of the information to criminally investigate or prosecute any alcohol or drug abuse patient.[facility] HospitalIn the event this information is protected by the Federal Confidentiality of Alcohol and Drug Abuse Patient Records regulations: The Federal rules restrict any use of the information to criminally investigate or prosecute any alcohol or drug abuse patient.[facility] HospitalIn the event this information is protected by the Federal Confidentiality of Alcohol and Drug Abuse Patient Records regulations: The Federal rules restrict any use of the information to criminally investigate or prosecute any alcohol or drug abuse patient.[facility] HospitalIn the event this information is protected by the Federal Confidentiality of Alcohol and Drug Abuse Patient Records regulations: The Federal rules restrict any use of the information to criminally investigate or prosecute any alcohol or drug abuse patient.[facility] HospitalIn the event this information is protected by the Federal Confidentiality of Alcohol and Drug Abuse Patient Records regulations: The Federal rules restrict any use of the information to criminally investigate or prosecute any alcohol or drug abuse patient.[facility] HospitalIn the event this information is protected by the Federal Confidentiality of Alcohol and Drug Abuse Patient Records regulations: The Federal rules restrict any use of the information to criminally investigate or prosecute any alcohol or drug abuse patient.[facility] HospitalIn the event this information is protected by the Federal Confidentiality of Alcohol and Drug Abuse Patient Records regulations: The Federal rules restrict any use of the information to criminally investigate or prosecute any alcohol or drug abuse patient.[facility] HospitalIn the event this information is protected by the Federal Confidentiality of Alcohol and Drug Abuse Patient Records regulations: The Federal rules restrict any use of the information to criminally investigate or prosecute any alcohol or drug abuse patient.[facility] HospitalIn the event this information is protected by the Federal Confidentiality of Alcohol and Drug Abuse Patient Records regulations: The Federal rules restrict any use of the information to criminally investigate or prosecute any alcohol or drug abuse patient.[facility] HospitalIn the event this information is protected by the Federal Confidentiality of Alcohol and Drug Abuse Patient Records regulations: The Federal rules restrict any use of the information to criminally investigate or prosecute any alcohol or drug abuse patient.[facility] HospitalIn the event this information is protected by the Federal Confidentiality of Alcohol and Drug Abuse Patient Records regulations: The Federal rules restrict any use of the information to criminally investigate or prosecute any alcohol or drug abuse patient.[facility] HospitalIn the event this information is protected by the Federal Confidentiality of Alcohol and Drug Abuse Patient Records regulations: The Federal rules restrict any use of the information to criminally investigate or prosecute any alcohol or drug abuse patient.[facility] HospitalIn the event this information is protected by the Federal Confidentiality of Alcohol and Drug Abuse Patient Records regulations: The Federal rules restrict any use of the information to criminally investigate or prosecute any alcohol or drug abuse patient.[facility] HospitalIn the event this information is protected by the Federal Confidentiality of Alcohol and Drug Abuse Patient Records regulations: The Federal rules restrict any use of the information to criminally investigate or prosecute any alcohol or drug abuse patient.[facility] HospitalIn the event this information is protected by the Federal Confidentiality of Alcohol and Drug Abuse Patient Records regulations: The Federal rules restrict any use of the information to criminally investigate or prosecute any alcohol or drug abuse patient.[facility] HospitalIn the event this information is protected by the Federal Confidentiality of Alcohol and Drug Abuse Patient Records regulations: The Federal rules restrict any use of the information to criminally investigate or prosecute any alcohol or drug abuse patient.[facility] HospitalIn the event this information is protected by the Federal Confidentiality of Alcohol and Drug Abuse Patient Records regulations: The Federal rules restrict any use of the information to criminally investigate or prosecute any alcohol or drug abuse patient.[facility] HospitalIn the event this information is protected by the Federal Confidentiality of Alcohol and Drug Abuse Patient Records regulations: The Federal rules restrict any use of the information to criminally investigate or prosecute any alcohol or drug abuse patient.[facility] HospitalIn the event this information is protected by the Federal Confidentiality of Alcohol and Drug Abuse Patient Records regulations: The Federal rules restrict any use of the information to criminally investigate or prosecute any alcohol or drug abuse patient.[facility] HospitalIn the event this information is protected by the Federal Confidentiality of Alcohol and Drug Abuse Patient Records regulations: The Federal rules restrict any use of the information to criminally investigate or prosecute any alcohol or drug abuse patient.[facility] HospitalIn the event this information is protected by the Federal Confidentiality of Alcohol and Drug Abuse Patient Records regulations: The Federal rules restrict any use of the information to criminally investigate or prosecute any alcohol or drug abuse patient.[facility] HospitalIn the event this information is protected by the Federal Confidentiality of Alcohol and Drug Abuse Patient Records regulations: The Federal rules restrict any use of the information to criminally investigate or prosecute any alcohol or drug abuse patient.[facility] HospitalIn the event this information is protected by the Federal Confidentiality of Alcohol and Drug Abuse Patient Records regulations: The Federal rules restrict any use of the information to criminally investigate or prosecute any alcohol or drug abuse patient.[facility] HospitalIn the event this information is protected by the Federal Confidentiality of Alcohol and Drug Abuse Patient Records regulations: The Federal rules restrict any use of the information to criminally investigate or prosecute any alcohol or drug abuse patient.[facility] HospitalIn the event this information is protected by the Federal Confidentiality of Alcohol and Drug Abuse Patient Records regulations: The Federal rules restrict any use of the information to criminally investigate or prosecute any alcohol or drug abuse patient.[facility] HospitalIn the event this information is protected by the Federal Confidentiality of Alcohol and Drug Abuse Patient Records regulations: The Federal rules restrict any use of the information to criminally investigate or prosecute any alcohol or drug abuse patient.[facility] HospitalIn the event this information is protected by the Federal Confidentiality of Alcohol and Drug Abuse Patient Records regulations: The Federal rules restrict any use of the information to criminally investigate or prosecute any alcohol or drug abuse patient.[facility] HospitalIn the event this information is protected by the Federal Confidentiality of Alcohol and Drug Abuse Patient Records regulations: The Federal rules restrict any use of the information to criminally investigate or prosecute any alcohol or drug abuse patient.[facility] HospitalIn the event this information is protected by the Federal Confidentiality of Alcohol and Drug Abuse Patient Records regulations: The Federal rules restrict any use of the information to criminally investigate or prosecute any alcohol or drug abuse patient.[facility] HospitalIn the event this information is protected by the Federal Confidentiality of Alcohol and Drug Abuse Patient Records regulations: The Federal rules restrict any use of the information to criminally investigate or prosecute any alcohol or drug abuse patient.[facility] HospitalIn the event this information is protected by the Federal Confidentiality of Alcohol and Drug Abuse Patient Records regulations: The Federal rules restrict any use of the information to criminally investigate or prosecute any alcohol or drug abuse patient.[facility] HospitalIn the event this information is protected by the Federal Confidentiality of Alcohol and Drug Abuse Patient Records regulations: The Federal rules restrict any use of the information to criminally investigate or prosecute any alcohol or drug abuse patient.[facility] HospitalIn the event this information is protected by the Federal Confidentiality of Alcohol and Drug Abuse Patient Records regulations: The Federal rules restrict any use of the information to criminally investigate or prosecute any alcohol or drug abuse patient.[facility] HospitalIn the event this information is protected by the Federal Confidentiality of Alcohol and Drug Abuse Patient Records regulations: The Federal rules restrict any use of the information to criminally investigate or prosecute any alcohol or drug abuse patient.[facility] HospitalIn the event this information is protected by the Federal Confidentiality of Alcohol and Drug Abuse Patient Records regulations: The Federal rules restrict any use of the information to criminally investigate or prosecute any alcohol or drug abuse patient.[facility] HospitalIn the event this information is protected by the Federal Confidentiality of Alcohol and Drug Abuse Patient Records regulations: The Federal rules restrict any use of the information to criminally investigate or prosecute any alcohol or drug abuse patient.[facility] HospitalIn the event this information is protected by the Federal Confidentiality of Alcohol and Drug Abuse Patient Records regulations: The Federal rules restrict any use of the information to criminally investigate or prosecute any alcohol or drug abuse patient.[facility] HospitalIn the event this information is protected by the Federal Confidentiality of Alcohol and Drug Abuse Patient Records regulations: The Federal rules restrict any use of the information to criminally investigate or prosecute any alcohol or drug abuse patient.[facility] HospitalIn the event this information is protected by the Federal Confidentiality of Alcohol and Drug Abuse Patient Records regulations: The Federal rules restrict any use of the information to criminally investigate or prosecute any alcohol or drug abuse patient.[facility] HospitalIn the event this information is protected by the Federal Confidentiality of Alcohol and Drug Abuse Patient Records regulations: The Federal rules restrict any use of the information to criminally investigate or prosecute any alcohol or drug abuse patient.[facility] HospitalIn the event this information is protected by the Federal Confidentiality of Alcohol and Drug Abuse Patient Records regulations: The Federal rules restrict any use of the information to criminally investigate or prosecute any alcohol or drug abuse patient.[facility] HospitalIn the event this information is protected by the Federal Confidentiality of Alcohol and Drug Abuse Patient Records regulations: The Federal rules restrict any use of the information to criminally investigate or prosecute any alcohol or drug abuse patient.[facility] HospitalIn the event this information is protected by the Federal Confidentiality of Alcohol and Drug Abuse Patient Records regulations: The Federal rules restrict any use of the information to criminally investigate or prosecute any alcohol or drug abuse patient.[facility] HospitalIn the event this information is protected by the Federal Confidentiality of Alcohol and Drug Abuse Patient Records regulations: The Federal rules restrict any use of the information to criminally investigate or prosecute any alcohol or drug abuse patient.[facility] HospitalIn the event this information is protected by the Federal Confidentiality of Alcohol and Drug Abuse Patient Records regulations: The Federal rules restrict any use of the information to criminally investigate or prosecute any alcohol or drug abuse patient.[facility] HospitalIn the event this information is protected by the Federal Confidentiality of Alcohol and Drug Abuse Patient Records regulations: The Federal rules restrict any use of the information to criminally investigate or prosecute any alcohol or drug abuse patient.[facility] HospitalIn the event this information is protected by the Federal Confidentiality of Alcohol and Drug Abuse Patient Records regulations: The Federal rules restrict any use of the information to criminally investigate or prosecute any alcohol or drug abuse patient.[facility] HospitalIn the event this information is protected by the Federal Confidentiality of Alcohol and Drug Abuse Patient Records regulations: The Federal rules restrict any use of the information to criminally investigate or prosecute any alcohol or drug abuse patient.[facility] HospitalIn the event this information is protected by the Federal Confidentiality of Alcohol and Drug Abuse Patient Records regulations: The Federal rules restrict any use of the information to criminally investigate or prosecute any alcohol or drug abuse patient.[facility] HospitalIn the event this information is protected by the Federal Confidentiality of Alcohol and Drug Abuse Patient Records regulations: The Federal rules restrict any use of the information to criminally investigate or prosecute any alcohol or drug abuse patient.[facility] HospitalIn the event this information is protected by the Federal Confidentiality of Alcohol and Drug Abuse Patient Records regulations: The Federal rules restrict any use of the information to criminally investigate or prosecute any alcohol or drug abuse patient.[facility] HospitalIn the event this information is protected by the Federal Confidentiality of Alcohol and Drug Abuse Patient Records regulations: The Federal rules restrict any use of the information to criminally investigate or prosecute any alcohol or drug abuse patient.[facility] HospitalIn the event this information is protected by the Federal Confidentiality of Alcohol and Drug Abuse Patient Records regulations: The Federal rules restrict any use of the information to criminally investigate or prosecute any alcohol or drug abuse patient.[facility] HospitalIn the event this information is protected by the Federal Confidentiality of Alcohol and Drug Abuse Patient Records regulations: The Federal rules restrict any use of the information to criminally investigate or prosecute any alcohol or drug abuse patient.[facility] HospitalIn the event this information is protected by the Federal Confidentiality of Alcohol and Drug Abuse Patient Records regulations: The Federal rules restrict any use of the information to criminally investigate or prosecute any alcohol or drug abuse patient.[facility] HospitalIn the event this information is protected by the Federal Confidentiality of Alcohol and Drug Abuse Patient Records regulations: The Federal rules restrict any use of the information to criminally investigate or prosecute any alcohol or drug abuse patient.[facility] HospitalIn the event this information is protected by the Federal Confidentiality of Alcohol and Drug Abuse Patient Records regulations: The Federal rules restrict any use of the information to criminally investigate or prosecute any alcohol or drug abuse patient.[facility] HospitalIn the event this information is protected by the Federal Confidentiality of Alcohol and Drug Abuse Patient Records regulations: The Federal rules restrict any use of the information to criminally investigate or prosecute any alcohol or drug abuse patient.[facility] HospitalIn the event this information is protected by the Federal Confidentiality of Alcohol and Drug Abuse Patient Records regulations: The Federal rules restrict any use of the information to criminally investigate or prosecute any alcohol or drug abuse patient.[facility] HospitalIn the event this information is protected by the Federal Confidentiality of Alcohol and Drug Abuse Patient Records regulations: The Federal rules restrict any use of the information to criminally investigate or prosecute any alcohol or drug abuse patient.[facility] HospitalIn the event this information is protected by the Federal Confidentiality of Alcohol and Drug Abuse Patient Records regulations: The Federal rules restrict any use of the information to criminally investigate or prosecute any alcohol or drug abuse patient.[facility] HospitalIn the event this information is protected by the Federal Confidentiality of Alcohol and Drug Abuse Patient Records regulations: The Federal rules restrict any use of the information to criminally investigate or prosecute any alcohol or drug abuse patient.[facility] HospitalIn the event this information is protected by the Federal Confidentiality of Alcohol and Drug Abuse Patient Records regulations: The Federal rules restrict any use of the information to criminally investigate or prosecute any alcohol or drug abuse patient.[facility] HospitalIn the event this information is protected by the Federal Confidentiality of Alcohol and Drug Abuse Patient Records regulations: The Federal rules restrict any use of the information to criminally investigate or prosecute any alcohol or drug abuse patient.[facility] HospitalIn the event this information is protected by the Federal Confidentiality of Alcohol and Drug Abuse Patient Records regulations: The Federal rules restrict any use of the information to criminally investigate or prosecute any alcohol or drug abuse patient.[facility] HospitalIn the event this information is protected by the Federal Confidentiality of Alcohol and Drug Abuse Patient Records regulations: The Federal rules restrict any use of the information to criminally investigate or prosecute any alcohol or drug abuse patient.[facility] HospitalIn the event this information is protected by the Federal Confidentiality of Alcohol and Drug Abuse Patient Records regulations: The Federal rules restrict any use of the information to criminally investigate or prosecute any alcohol or drug abuse patient.[facility] HospitalIn the event this information is protected by the Federal Confidentiality of Alcohol and Drug Abuse Patient Records regulations: The Federal rules restrict any use of the information to criminally investigate or prosecute any alcohol or drug abuse patient.[facility] HospitalIn the event this information is protected by the Federal Confidentiality of Alcohol and Drug Abuse Patient Records regulations: The Federal rules restrict any use of the information to criminally investigate or prosecute any alcohol or drug abuse patient.[facility] HospitalIn the event this information is protected by the Federal Confidentiality of Alcohol and Drug Abuse Patient Records regulations: The Federal rules restrict any use of the information to criminally investigate or prosecute any alcohol or drug abuse patient.[facility] HospitalIn the event this information is protected by the Federal Confidentiality of Alcohol and Drug Abuse Patient Records regulations: The Federal rules restrict any use of the information to criminally investigate or prosecute any alcohol or drug abuse patient.[facility] HospitalIn the event this information is protected by the Federal Confidentiality of Alcohol and Drug Abuse Patient Records regulations: The Federal rules restrict any use of the information to criminally investigate or prosecute any alcohol or drug abuse patient.[facility] HospitalIn the event this information is protected by the Federal Confidentiality of Alcohol and Drug Abuse Patient Records regulations: The Federal rules restrict any use of the information to criminally investigate or prosecute any alcohol or drug abuse patient.[facility] HospitalIn the event this information is protected by the Federal Confidentiality of Alcohol and Drug Abuse Patient Records regulations: The Federal rules restrict any use of the information to criminally investigate or prosecute any alcohol or drug abuse patient.[facility] HospitalIn the event this information is protected by the Federal Confidentiality of Alcohol and Drug Abuse Patient Records regulations: The Federal rules restrict any use of the information to criminally investigate or prosecute any alcohol or drug abuse patient.[facility] HospitalIn the event this information is protected by the Federal Confidentiality of Alcohol and Drug Abuse Patient Records regulations: The Federal rules restrict any use of the information to criminally investigate or prosecute any alcohol or drug abuse patient.[facility] HospitalIn the event this information is protected by the Federal Confidentiality of Alcohol and Drug Abuse Patient Records regulations: The Federal rules restrict any use of the information to criminally investigate or prosecute any alcohol or drug abuse patient.[facility] HospitalIn the event this information is protected by the Federal Confidentiality of Alcohol and Drug Abuse Patient Records regulations: The Federal rules restrict any use of the information to criminally investigate or prosecute any alcohol or drug abuse patient.[facility] HospitalIn the event this information is protected by the Federal Confidentiality of Alcohol and Drug Abuse Patient Records regulations: The Federal rules restrict any use of the information to criminally investigate or prosecute any alcohol or drug abuse patient.[facility] HospitalIn the event this information is protected by the Federal Confidentiality of Alcohol and Drug Abuse Patient Records regulations: The Federal rules restrict any use of the information to criminally investigate or prosecute any alcohol or drug abuse patient.[facility] HospitalIn the event this information is protected by the Federal Confidentiality of Alcohol and Drug Abuse Patient Records regulations: The Federal rules restrict any use of the information to criminally investigate or prosecute any alcohol or drug abuse patient.[facility] HospitalIn the event this information is protected by the Federal Confidentiality of Alcohol and Drug Abuse Patient Records regulations: The Federal rules restrict any use of the information to criminally investigate or prosecute any alcohol or drug abuse patient.[facility] HospitalIn the event this information is protected by the Federal Confidentiality of Alcohol and Drug Abuse Patient Records regulations: The Federal rules restrict any use of the information to criminally investigate or prosecute any alcohol or drug abuse patient.[facility] HospitalIn the event this information is protected by the Federal Confidentiality of Alcohol and Drug Abuse Patient Records regulations: The Federal rules restrict any use of the information to criminally investigate or prosecute any alcohol or drug abuse patient.[facility] HospitalIn the event this information is protected by the Federal Confidentiality of Alcohol and Drug Abuse Patient Records regulations: The Federal rules restrict any use of the information to criminally investigate or prosecute any alcohol or drug abuse patient.[facility] Care Teams (unrecognized sec tion and content) Press Department Manager Relationship Specialty Start Date End Date Apollo Melo MD [address] [place] [address] PCP - General Family Practice 07/18/20 Sharon Guzman MD [address] [place] [address] Referring Internal Medicine 07/15/20 Sharon Guzman MD [address] [place] [address] Home Care Physician Internal Medicine 07/15/20 Mona King RN Specialty Radiopharmacist Oncology 07/30/20 Maliha Lacy, HÉCTOR [address] [facility] [place] [address] Academic Success Coordinator Hematology/Oncology 11/30/21 Press Department Manager Relationship Specialty Start Date End Date Apollo Melo MD [address] [place] [address] PCP - General Family Practice 07/18/20 Sharon Guzman MD [address] [address] Referring Internal Medicine 07/15/20 Sharon Guzman MD [address] [place] [address] Home Care Physician Internal Medicine 07/15/20 Mona King RN Specialty Radiopharmacist Oncology 07/30/20 Maliha Lacy, RN [address] [place] [address] Academic Success Coordinator Hematology/Oncology 11/30/21 Press Department Manager Relationship Specialty Start Date End Date Apollo Melo MD [address] [place] [address] PCP - General Family Practice 07/18/20 Sharon Guzman MD [address] [place] [address] Referring Internal Medicine 07/15/20 Sharon Guzman MD [address] [place] [address] Home Care Physician Internal Medicine 07/15/20 Mona King RN Specialty Radiopharmacist Oncology 07/30/20 Maliha Lacy, RN [address] [facility] [place] [address] Academic Success Coordinator Hematology/Oncology 11/30/21 Press Department Manager Relationship Specialty Start Date End Date Apollo Melo MD [address] [place] [address] PCP - General Family Practice 07/18/20 Sharon Guzman MD [address] [place] [address] Referring Internal Medicine 07/15/20 Sharon Guzman MD [address] [address] Home Care Physician Internal Medicine 07/15/20 Mona King RN Specialty Radiopharmacist Oncology 07/30/20 Maliha Lacy, RN [address] [facility] [place] [address] Academic Success Coordinator Hematology/Oncology 11/30/21 Press Department Manager Relationship Specialty Start Date End Date Apollo Melo MD [address] [place] [address] PCP - General Family Practice 07/18/20 Sharon Guzman MD [address] [facility] [place] [address] Referring Internal Medicine 07/15/20 Sharon Guzman MD [address] [facility] [place] [address] Home Care Physician Internal Medicine 07/15/20 Mona King RN Specialty Radiopharmacist Oncology 07/30/20 Maliha Lacy, RN [address] [place] [facility] [place] [address] Academic Success Coordinator Hematology/Oncology 11/30/21 Press Department Manager Relationship Specialty Start Date End Date Apollo Melo MD [address] [place] [address] PCP - General Family Practice 07/18/20 Sharon Guzman MD [address] [facility] [place] [address] Referring Internal Medicine 07/15/20 Sharon Guzman MD [address] [facility] [place] [address] Home Care Physician Internal Medicine 07/15/20 Mona King RN Specialty Radiopharmacist Oncology 07/30/20 Maliha Lacy, HÉCTOR [address] [facility]ELMiguel Angel [facility] [place] [address] Academic Success Coordinator Hematology/Oncology 11/30/21 Press Department Manager Relationship Specialty Start Date End Date Apollo Melo MD [address] [place] [address] PCP - General Family Practice 07/18/20 Sharon Guzman MD [address] [facility] [address] [facility] [place] [address] Referring Internal Medicine 07/15/20 Sharon Guzman MD [address] [place] [address] Home Care Physician Internal Medicine 07/15/20 Mona King RN Specialty Radiopharmacist Oncology 07/30/20 Maliha Lacy, HÉCTOR [address] [facility] [place] [address] Academic Success Coordinator Hematology/Oncology 11/30/21 Press Department Manager Relationship Specialty Start Date End Date Apollo Melo MD [address] [place] [address] PCP - General Family Practice 07/18/20 Sharon Guzman MD [address] [place] [address] Referring Internal Medicine 07/15/20 Sharon Guzman MD [address] [place] [address] Home Care Physician Internal Medicine 07/15/20 Mona King RN Specialty Radiopharmacist Oncology 07/30/20 Maliha Lacy, HÉCTOR [address] [place] [address] Academic Success Coordinator Hematology/Oncology 11/30/21 Press Department Manager Relationship Specialty Start Date End Date Apollo Melo MD [address] [place] [address] PCP - General Family Practice 07/18/20 Sharon Guzman MD [address] [place] [address] Referring Internal Medicine 07/15/20 Sharon Guzman MD [address] [place] [address] Home Care Physician Internal Medicine 07/15/20 Mona King RN Specialty Radiopharmacist Oncology 07/30/20 Maliha Lacy, HÉCTOR [address] [place] [address] Academic Success Coordinator Hematology/Oncology 11/30/21 Press Department Manager Relationship Specialty Start Date End Date Apollo Melo MD [address] [place] [address] PCP - General Family Practice 07/18/20 Sharon Guzman MD [address] [place] [address] Referring Internal Medicine 07/15/20 Sharon Guzman MD [address] [place] [address] [place] [address] Home Care Physician Internal Medicine 07/15/20 Mona King RN Specialty Radiopharmacist Oncology 07/30/20 Maliha Lacy, HÉCTOR [address] [place] [address] Academic Success Coordinator Hematology/Oncology 11/30/21 Press Department Manager Relationship Specialty Start Date End Date Apollo Melo MD [address] [place] [address] PCP - General Family Practice 07/18/20 Sharon Guzman MD [address] [place] [address], [place] [address] Referring Internal Medicine 07/15/20 Sharon Guzman MD [address] [place] [address], [place] [address] Home Care Physician Internal Medicine 07/15/20 Mona King RN Specialty Radiopharmacist Oncology 07/30/20 Maliha Lacy, RN [address] [facility] [place] [address] Academic Success Coordinator Hematology/Oncology 11/30/21 Press Department Manager Relationship Specialty Start Date End Date Apollo Melo MD [address] [place] [address] PCP - General Family Practice 07/18/20 Sharon Guzman MD [address] [place] [address] Referring Internal Medicine 07/15/20 Sharon Guzman MD [address] [facility] [place] [address] Home Care Physician Internal Medicine 07/15/20 Maliha Lacy RN [address] [facility] [place] [address] Specialty Radiopharmacist Hematology/Oncology 11/30/21 Press Department Manager Relationship Specialty Start Date End Date Apollo Melo MD [address] [place] [address] PCP - General Family Practice 07/18/20 Sharon Guzman MD [address] [facility] [place] [address] Referring Internal Medicine 07/15/20 Sharon Guzman MD [address] [place] [address], [place] [address] Home Care Physician Internal Medicine 07/15/20 Maliha Lacy RN [address] [facility] [address] Specialty Radiopharmacist Hematology/Oncology 11/30/21 Press Department Manager Relationship Specialty Start Date End Date Apollo Melo MD [address] [facility] [place] [address] PCP - General Family Practice 07/18/20 Sharon Guzman MD [address] [facility] [address] [facility] [place] [address] Referring Internal Medicine 07/15/20 Sharon Guzman MD [address] [facility] [address] [facility] [place] [address] Home Care Physician Internal Medicine 07/15/20 Maliha Lacy, RN [address] [facility] [place] [address] Specialty Radiopharmacist Hematology/Oncology 11/30/21 Press Department Manager Relationship Specialty Start Date End Date Apollo Melo MD [address] [facility] [place] [place] [address] PCP - General Family Practice 07/18/20 Sharon Guzman MD [address] [facility] 106 [facility] [place] [address] Referring Internal Medicine 07/15/20 Sharon Guzman MD [address] [place] [address] Home Care Physician Internal Medicine 07/15/20 Maliha Lacy, RN [address] [facility] RAFAELMiguel [place] [address] Specialty Radiopharmacist Hematology/Oncology 11/30/21 Press Department Manager Relationship Specialty Start Date End Date Apollo Melo MD [address] [facility] [place] [place] [address] PCP - General Family Practice 07/18/20 Sharon Guzman MD [address] [facility] [place] [address] Referring Internal Medicine 07/15/20 Sharon Guzman MD [address] [facility] [place] [address] Home Care Physician Internal Medicine 07/15/20 Maliha Lacy, HÉCTOR [address] [place] [place] [address] Specialty Radiopharmacist Hematology/Oncology 11/30/21 Press Department Manager Relationship Specialty Start Date End Date Apollo Melo MD [address] [facility] [place] [place] [address] PCP - General Family Practice 07/18/20 Sharon Guzman MD [address] [place] [address] Referring Internal Medicine 07/15/20 Sharon Guzman MD [address] [facility] [address] [place] [address], [place] [address] Home Care Physician Internal Medicine 07/15/20 Maliha Lacy, HÉCTOR [address] [place] [place] [address] Specialty Radiopharmacist Hematology/Oncology 11/30/21 Press Department Manager Relationship Specialty Start Date End Date Apollo Melo MD [address] [place] [address] PCP - General Family Practice 07/18/20 Sharon Guzman MD [address] [facility] [address] [facility] [place] [address] Referring Internal Medicine 07/15/20 Sharon Guzman MD [address] [facility] [address] [facility] [place] [address] Home Care Physician Internal Medicine 07/15/20 Maliha Lacy, HÉCTOR [address] [place] [facility] [place] [address] Specialty Radiopharmacist Hematology/Oncology 11/30/21 Press Department Manager Relationship Specialty Start Date End Date Apollo Melo MD [address] [facility] [place] [place] [address] PCP - General Family Practice 07/18/20 Sean Rodriguez MD [address] [facility] [place] [address] PCP - hematology/oncology Hematology/Oncology 04/05/22 Sharon Guzman MD [address] [facility] [place] [address] Referring Internal Medicine 07/15/20 Sharon Guzman MD [address] [facility] [place] [address] Home Care Physician Internal Medicine 07/15/20 Maliha Lacy, HÉCTOR [address] [place] [facility] [place] [address] Specialty Radiopharmacist Hematology/Oncology 11/30/21 Press Department Manager Relationship Specialty Start Date End Date Apollo Melo MD [address] [facility] [place] [place] [address] PCP - General Family Practice 07/18/20 Sean Rodriguez MD [address] [place] [facility] [place] [address] PCP - hematology/oncology Hematology/Oncology 04/05/22 Sharon Guzman MD [address] [facility] [place] [address] Referring Internal Medicine 07/15/20 Sharon Guzman MD [address] [facility] [place] [address] Home Care Physician Internal Medicine 07/15/20 Maliha Lacy, HÉCTOR [address] [facility] RAFAELMiguel [place] [address] Specialty Radiopharmacist Hematology/Oncology 11/30/21 Press Department Manager Relationship Specialty Start Date End Date Apollo Melo MD [address] [facility] [place] [address] PCP - General Family Practice 07/18/20 Sean Rodriguez MD [address] D[facility] RA[place]EL[place]uel [place] [address] PCP - hematology/oncology Hematology/Oncology 04/05/22 Sharon Guzman MD [address] [facility] [place] [address] Referring Internal Medicine 07/15/20 Sharon Guzman MD [address] [facility] [place] [address] Home Care Physician Internal Medicine 07/15/20 Maliha Lacy RN [address] [facility] [place] [address] Specialty Radiopharmacist Hematology/Oncology 11/30/21 Press Department Manager Relationship Specialty Start Date End Date Apollo Melo MD [address] [facility] [place] [place] [address] PCP - General Family Practice 07/18/20 Sean Rodriguez MD [address] [facility] [place] [address] PCP - hematology/oncology Hematology/Oncology 04/05/22 Sharon Guzman MD [address] [facility] [place] [address] Referring Internal Medicine 07/15/20 Sharon Guzman MD [address] [facility] [place] [address] Home Care Physician Internal Medicine 07/15/20 Maliha Lacy, HÉCTOR [address] [place] [address] Specialty Radiopharmacist Hematology/Oncology 11/30/21 Press Department Manager Relationship Specialty Start Date End Date Apollo Melo MD [address] [facility] [place] [place] [address] PCP - General Family Practice 07/18/20 Sean Rodriguez MD [address] MALCOL[place] [place] [address] PCP - hematology/oncology Hematology/Oncology 04/05/22 Sharon Guzman MD [address] [facility] [place] [address] Referring Internal Medicine 07/15/20 Sharon Guzman MD [address] [facility] [place] [address] Home Care Physician Internal Medicine 07/15/20 Maliha Lacy, HÉCTOR [address] [place] [address] Specialty Radiopharmacist Hematology/Oncology 11/30/21 Press Department Manager Relationship Specialty Start Date End Date Apollo Melo MD [address] [place] [address] PCP - General Family Medicine 07/18/20 Sean Rodriguez MD [address] [place] [facility] [place] [address] PCP - hematology/oncology Hematology/Oncology 04/05/22 Sharon Guzman MD [address] [facility] [place] [address] Referring Internal Medicine 07/15/20 Sharon Guzman MD [address] [facility] [place] [address] Home Care Provider Internal Medicine 07/15/20 Maliha Lacy, HÉCTOR [address] [facility] [place] [address] Specialty Radiopharmacist Hematology/Oncology 11/30/21 Press Department Manager Relationship Specialty Start Date End Date Apollo Melo MD [address] [place] [address] PCP - General Family Medicine 07/18/20 Sean Rodriguez MD [address] [place] [facility] [place] [address] PCP - hematology/oncology Hematology/Oncology 04/05/22 Sharon Guzman MD [address] [facility] [place] [address] Referring Internal Medicine 07/15/20 Sharon Guzman MD [address] [facility] [place] [address] Home Care Provider Internal Medicine 07/15/20 Maliha Lacy, HÉCTOR [address] [place] [facility] [place] [address] Specialty Radiopharmacist Hematology/Oncology 11/30/21 Press Department Manager Relationship Specialty Start Date End Date Apollo Melo MD [address] [facility] [place] [place] [address] PCP - General Family Medicine 07/18/20 Sean Rodriguez MD [address] [facility] [place] [address] PCP - hematology/oncology Hematology/Oncology 04/05/22 Sharon Guzman MD [address] [facility] [place] [address] Referring Internal Medicine 07/15/20 Sharon Guzman MD [address] [facility] [place] [address] Home Care Provider Internal Medicine 07/15/20 Maliha Lacy, HÉCTOR [address] [place]COL[place] [place] [address] Specialty Radiopharmacist Hematology/Oncology 11/30/21 Press Department Manager Relationship Specialty Start Date End Date Apollo Melo MD [address] [facility] [place] [address] PCP - General Family Medicine 07/18/20 Sean Rodriguez MD [address] [facility] [place] [address] PCP - hematology/oncology Hematology/Oncology 04/05/22 Sharon Guzman MD [address] [facility] [place] [address] Referring Internal Medicine 07/15/20 Sharon Guzman MD [address] [facility] [place] [address] Home Care Provider Internal Medicine 07/15/20 Maliha Lacy, HÉCTOR [address] [facility] [place] [address] Specialty Radiopharmacist Hematology/Oncology 11/30/21 Press Department Manager Relationship Specialty Start Date End Date Apollo Melo MD [address] [place] [address] PCP - General Family Medicine 07/18/20 Sean Rodriguez MD [address] [facility] [place] [address] PCP - hematology/oncology Hematology/Oncology 04/05/22 Sharon Guzman MD [address] [facility] [place] [address] Referring Internal Medicine 07/15/20 Sharon Guzman MD [address] [facility] [place] [address] Home Care Provider Internal Medicine 07/15/20 Maliha Lacy, HÉCTOR [address] [place] [address] Specialty Radiopharmacist Hematology/Oncology 11/30/21 Press Department Manager Relationship Specialty Start Date End Date Apollo Melo MD [address] [place] [address] PCP - General Family Medicine 07/18/20 Sean Rodriguez MD [address] [place] [address] PCP - hematology/oncology Hematology/Oncology 04/05/22 Sharon Guzman MD [address] [facility] [place] [address] Referring Internal Medicine 07/15/20 Sharon Guzman MD [address] [facility] [address] Home Care Provider Internal Medicine 07/15/20 Maliha Lacy, HÉCTOR [address] [place] [address] Specialty Radiopharmacist Hematology/Oncology 11/30/21 Press Department Manager Relationship Specialty Start Date End Date Apollo Melo MD [address] [place] [address] PCP - General Family Medicine 07/18/20 Sean Rodriguez MD [address] [place] [facility] [place] [address] PCP - hematology/oncology Hematology/Oncology 04/05/22 Sharon Guzman MD [address] [place] [address], [place] [address] Referring Internal Medicine 07/15/20 Sharon Guzman MD [address] [place] [address], [place] [address] Home Care Provider Internal Medicine 07/15/20 Maliha Lacy RN [address] [place] [facility] [place] [address] Specialty Radiopharmacist Hematology/Oncology 11/30/21 Press Department Manager Relationship Specialty Start Date End Date Apollo Melo MD [address] [facility] [place] [place] [address] PCP - General Family Medicine 07/18/20 Sean Rodriguez MD [address] [place] [facility] [place] [address] PCP - hematology/oncology Hematology/Oncology 04/05/22 Sharon Guzman MD [address] [place] [address], [place] [address] Referring Internal Medicine 07/15/20 Sharon Guzman MD [address] [facility] [place] [address] Home Care Provider Internal Medicine 07/15/20 Maliha Lacy RN [address] [facility] RAFAELMiguel [place] [address] Specialty Radiopharmacist Hematology/Oncology 11/30/21 Press Department Manager Relationship Specialty Start Date End Date Apollo Melo MD [address] [place] [address] PCP - General Family Medicine 07/18/20 Sean Rodriguez MD [address] [place] [place] [address] PCP - hematology/oncology Hematology/Oncology 04/05/22 Sharon Guzman MD [address] [place] [address], [place] [address] Referring Internal Medicine 07/15/20 Sharon Guzman MD [address] [place] [address], [place] [address] Home Care Provider Internal Medicine 07/15/20 Maliha Lacy RN [address] [facility] [place] [address] Specialty Radiopharmacist Hematology/Oncology 11/30/21 Press Department Manager Relationship Specialty Start Date End Date Apollo Melo MD [address] [place] [address] PCP - General Family Medicine 07/18/20 Sean Rodriguez MD [address] [place] [place] [address] PCP - hematology/oncology Hematology/Oncology 04/05/22 Sharon Guzman MD [address] [place] [address], [place] [address] Referring Internal Medicine 07/15/20 Sharon Guzman MD [address] [facility] [place] [address] Home Care Provider Internal Medicine 07/15/20 Maliha Lacy RN [address] [place] [address] Specialty Radiopharmacist Hematology/Oncology 11/30/21 Press Department Manager Relationship Specialty Start Date End Date Apollo Melo MD [address] [facility] [place] [address] PCP - General Family Medicine 07/18/20 Sean Rodriguez MD [address] [facility] [place] [address] PCP - hematology/oncology Hematology/Oncology 04/05/22 Sharon Guzman MD [address] [facility] [address] Referring Internal Medicine 07/15/20 Sharon Guzman MD [address] [facility] [address] Home Care Provider Internal Medicine 07/15/20 Maliha Lacy RN [address] [place] [address] Specialty Radiopharmacist Hematology/Oncology 11/30/21 Press Department Manager Relationship Specialty Start Date End Date Apollo Melo MD [address] [facility] [place] [address] PCP - General Family Medicine 07/18/20 Sean Rodriguez MD [address] [place] [address] PCP - hematology/oncology Hematology/Oncology 04/05/22 Sharon Guzman MD [address] [facility] [address] Referring Internal Medicine 07/15/20 Sharon Guzman MD [address] [facility] [address] Home Care Provider Internal Medicine 07/15/20 Maliha Lacy, HÉCTOR [address] [place] [place] [address] Specialty Radiopharmacist Hematology/Oncology 11/30/21 Press Department Manager Relationship Specialty Start Date End Date Apollo Melo MD [address] [facility] [place] [place] [address] PCP - General Family Medicine 07/18/20 Sean Rodriguez MD [address] [facility] [address] PCP - hematology/oncology Hematology/Oncology 04/05/22 Sharon Guzman MD [address] [facility] [address] Referring Internal Medicine 07/15/20 Sharon Guzman MD [address] [facility] [place] [address] Home Care Provider Internal Medicine 07/15/20 Maliha Lacy, HÉCTOR [address] [place] [address] Specialty Radiopharmacist Hematology/Oncology 11/30/21 Press Department Manager Relationship Specialty Start Date End Date Apollo Melo MD [address] [place] [address] PCP - General Family Medicine 07/18/20 Sean Rodriguez MD [address] [place] [address] PCP - hematology/oncology Hematology/Oncology 04/05/22 Sharon Guzman MD [address] [facility] [address] Referring Internal Medicine 07/15/20 Sharon Guzman MD [address] [facility] [place] [address] Home Care Provider Internal Medicine 07/15/20 Maliha Lacy, HÉCTOR [address] [place] [address] Specialty Radiopharmacist Hematology/Oncology 11/30/21 Press Department Manager Relationship Specialty Start Date End Date Apollo Melo MD [address] [place] [address] PCP - General Family Medicine 07/18/20 Sean Rodriguez MD [address] RAFAELMiguel Angel [place] [address] PCP - hematology/oncology Hematology/Oncology 04/05/22 Sharon Guzman MD [address] [facility] [address] Referring Internal Medicine 07/15/20 Sharon Guzman MD [address] [facility] [address] Home Care Provider Internal Medicine 07/15/20 Maliha Lacy, HÉCTOR [address] [place] [address] Specialty Radiopharmacist Hematology/Oncology 11/30/21 Press Department Manager Relationship Specialty Start Date End Date Apollo Melo MD [address] [facility] [place] [address] PCP - General Family Medicine 07/18/20 Sean Rodriguez MD [address] [facility] [place] [address] PCP - hematology/oncology Hematology/Oncology 04/05/22 Sharon Guzman MD [address] [facility] [address] Referring Internal Medicine 07/15/20 Sharon Guzman MD [address] [facility] [address] Home Care Provider Internal Medicine 07/15/20 Maliha Lacy, HÉCTOR [address] [facility] [place] [address] Specialty Radiopharmacist Hematology/Oncology 11/30/21 Press Department Manager Relationship Specialty Start Date End Date Apollo Melo MD [address] [facility] [place] [place] [address] PCP - General Family Medicine 07/18/20 Sean Rodriguez MD [address] [place] [facility] [place] [place] [address] PCP - hematology/oncology Hematology/Oncology 04/05/22 Sharon Guzman MD [address] [facility] [address] Referring Internal Medicine 07/15/20 Sharon Guzman MD [address] [facility] [address] Home Care Provider Internal Medicine 07/15/20 Maliha Lacy, HÉCTOR [address] [facility] [place] [address] Specialty Radiopharmacist Hematology/Oncology 11/30/21 Press Department Manager Relationship Specialty Start Date End Date Apollo Melo MD [address] [place] [address] PCP - General Family Medicine 07/18/20 Sean Rodriguez MD [address] [place] [address] PCP - hematology/oncology Hematology/Oncology 04/05/22 Sharon Guzman MD [address] [facility] [address] Referring Internal Medicine 07/15/20 Sharon Guzman MD [address] [facility] [address] Home Care Provider Internal Medicine 07/15/20 Maliha Lacy RN [address] [place] [address] Specialty Radiopharmacist Hematology/Oncology 11/30/21 Press Department Manager Relationship Specialty Start Date End Date Apollo Melo MD [address] [place] [address] PCP - General Family Medicine 07/18/20 Sean Rodriguez MD [address] [place] [address] PCP - hematology/oncology Hematology/Oncology 04/05/22 Sharon Guzman MD [address] [facility] [address] Referring Internal Medicine 07/15/20 Sharon Guzman MD [address] [facility] [address] Home Care Provider Internal Medicine 07/15/20 Maliha Lacy RN [address] [place] [address] Specialty Radiopharmacist Hematology/Oncology 11/30/21 Press Department Manager Relationship Specialty Start Date End Date Apollo Melo MD [address] [place] [address] PCP - General Family Medicine 07/18/20 Sean Rodriguez MD [address] [place] [address] PCP - hematology/oncology Hematology/Oncology 04/05/22 Sahron Guzman MD [address] [place] [address], [place] [address] Referring Internal Medicine 07/15/20 Sharon Guzman MD [address] [place] [address], [place] [address] Home Care Provider Internal Medicine 07/15/20 Maliha Lacy, HÉCTOR [address] [place] [address] Specialty Radiopharmacist Hematology/Oncology 11/30/21 Press Department Manager Relationship Specialty Start Date End Date Apollo Melo MD [address] [place] [address] PCP - General Family Medicine 07/18/20 Sean Rodriguez MD [address] [place] [place] [address] PCP - hematology/oncology Hematology/Oncology 04/05/22 Sharon Guzman MD [address] [facility] [place] [address] Referring Internal Medicine 07/15/20 Sharon Guzman MD [address] [place] [address], [place] [address] Home Care Provider Internal Medicine 07/15/20 Maliha Lacy, HÉCTOR [address] RAFAELMiguel Angel [place] [address] Specialty Radiopharmacist Hematology/Oncology 11/30/21 Press Department Manager Relationship Specialty Start Date End Date Apollo Melo MD [address] [place] [address] PCP - General Family Medicine 07/18/20 Sean Rodriguez MD 7[address] [facility] [place] [address] PCP - hematology/oncology Hematology/Oncology 04/05/22 Sharon Guzman MD [address] [place] [address], [place] [address] Referring Internal Medicine 07/15/20 Sharon Guzman MD [address] [facility] [address] Home Care Provider Internal Medicine 07/15/20 Maliha Lacy RN [address] [facility] [place] [address] Specialty Radiopharmacist Hematology/Oncology 11/30/21 Press Department Manager Relationship Specialty Start Date End Date Apollo Melo MD [address] [place] [address] PCP - General Family Medicine 07/18/20 Sean Rodriguez MD [address] [facility] [place] [address] PCP - hematology/oncology Hematology/Oncology 04/05/22 Sharon Guzman MD [address] [facility] [address] Referring Internal Medicine 07/15/20 Sharon Guzman MD [address] [facility] [address] Home Care Provider Internal Medicine 07/15/20 Maliha Lacy RN [address] [place] [address] Specialty Radiopharmacist Hematology/Oncology 11/30/21 Press Department Manager Relationship Specialty Start Date End Date Apollo Melo MD [address] [facility] [place] [address] PCP - General Family Medicine 07/18/20 Sean Rodriguez MD [address] [facility] [place] [address] PCP - hematology/oncology Hematology/Oncology 04/05/22 Sharon Guzman MD [address] [facility] [address] Referring Internal Medicine 07/15/20 Sharon Guzman MD [address] [facility] [address] Home Care Provider Internal Medicine 07/15/20 Maliha Lacy RN [address] RAFA[address]Miguel [place] [address] Specialty Radiopharmacist Hematology/Oncology 11/30/21 Press Department Manager Relationship Specialty Start Date End Date Apollo Melo MD [address] [facility] [place] [place] [address] PCP - General Family Medicine 07/18/20 Sean Rodriguez MD [address] [facility] [place] [address] PCP - hematology/oncology Hematology/Oncology 04/05/22 Sharon Guzman MD [address] [facility] [address] Referring Internal Medicine 07/15/20 Sharon Guzman MD [address] [facility] [address] Home Care Provider Internal Medicine 07/15/20 Maliha Lacy, RN [address] [facility] [address] Specialty Radiopharmacist Hematology/Oncology 11/30/21 Press Department Manager Relationship Specialty Start Date End Date Apollo Melo MD [address] [place] [address] PCP - General Family Medicine 07/18/20 Sean Rodriguez MD [address] [place] [address] PCP - Hematology/Oncology Hematology/Oncology 04/05/22 Sharon Guzman MD [address] [facility] [address] Referring Internal Medicine 07/15/20 Sharon Guzman MD [address] [facility] [place] [address] Home Care Provider Internal Medicine 07/15/20 Maliha Lacy, HÉCTOR [address] [facility] [place] [address] Specialty Radiopharmacist Hematology/Oncology 11/30/21 Press Department Manager Relationship Specialty Start Date End Date Apollo Melo MD [address] [place] [address] PCP - General Family Medicine 07/18/20 Sean Rodriguez MD [address] RAFAELMiguel Angel [place], [place] [address] PCP - Hematology/Oncology Hematology/Oncology 04/05/22 Sharon Guzman MD [address] [place] [address] Referring Internal Medicine 07/15/20 Sharon Guzman MD [address] [place] [address] Home Care Provider Internal Medicine 07/15/20 Maliha Lacy, RN [address] [facility] [place], [place] [address] Specialty Radiopharmacist Hematology/Oncology 11/30/21 Press Department Manager Relationship Specialty Start Date End Date Apollo Melo MD [address] [place], [place] [address] PCP - General Family Medicine 07/18/20 Sean Rodriguez MD [address] [place] [address] PCP - Hematology/Oncology Hematology/Oncology 04/05/22 Sharon Guzman MD [address] [facility] [address] Referring Internal Medicine 07/15/20 Sharon Guzman MD [address] [place] [address] Home Care Provider Internal Medicine 07/15/20 Maliha Lacy RN [address] [place] [address] Specialty Radiopharmacist Hematology/Oncology 11/30/21 Press Department Manager Relationship Specialty Start Date End Date Apollo Melo MD [address] [place] [address] PCP - General Family Medicine 07/18/20 Sharon Guzman MD [address] [facility] [address] Referring Internal Medicine 07/15/20 Sharon Guzman MD [address] [facility] [place] [address] Home Care Provider Internal Medicine 07/15/20 Maliha Lacy, HÉCTOR [address] [place] [address] Specialty Radiopharmacist Hematology/Oncology 11/30/21 Francisco Javier Perez MD [address] [place] [address] Hematology/Oncology 05/12/23 Press Department Manager Relationship Specialty Start Date End Date Apollo Melo MD [address] [facility] [place] [place] [address] PCP - General Family Medicine 07/18/20 Sharon Guzman MD [address] [facility] [place] [address] Referring Internal Medicine 07/15/20 Sharon Guzman MD [address] [facility] [place] [address] Home Care Provider Internal Medicine 07/15/20 Maliha Lacy, HÉCTOR [address] [place] [address] Specialty Radiopharmacist Hematology/Oncology 11/30/21 Francisco Javier Perez MD [address] [place] [address] Hematology/Oncology 05/12/23 Press Department Manager Relationship Specialty Start Date End Date Apollo Melo MD [address] [place] [address] PCP - General Family Medicine 07/18/20 Sharon Guzman MD [address] [facility] [address] Referring Internal Medicine 07/15/20 Sharon Guzman MD [address] [place] [address] Home Care Provider Internal Medicine 07/15/20 Maliha Lacy RN [address] [place] [address] Specialty Radiopharmacist Hematology/Oncology 11/30/21 Francisco Javier Perez MD [address] [place] [address] Hematology/Oncology 05/12/23 Press Department Manager Relationship Specialty Start Date End Date Apollo Melo MD [address] [place] [address] PCP - General Family Medicine 07/18/20 Sharon Guzman MD [address] [facility] [address] Referring Internal Medicine 07/15/20 Sharon Guzman MD [address] [facility] [address] Home Care Provider Internal Medicine 07/15/20 Maliha Lacy, HÉCTOR [address] [facility] [place] [address] Specialty Radiopharmacist Hematology/Oncology 11/30/21 Francisco Javier Perez MD [address] [place] [address] Hematology/Oncology 05/12/23 Press Department Manager Relationship Specialty Start Date End Date Apollo Melo MD [address] [place] [address] PCP - General Family Medicine 07/18/20 Sharon Guzman MD [address] [facility] [address] Referring Internal Medicine 07/15/20 Sharon Guzman MD [address] [facility] [place] [address] Home Care Provider Internal Medicine 07/15/20 Maliha Lacy, RN [address] [facility] [place] [address] Specialty Radiopharmacist Hematology/Oncology 11/30/21 Francisco Javier Perez MD [address] [place] [address] Hematology/Oncology 05/12/23 Press Department Manager Relationship Specialty Start Date End Date Apollo Melo MD [address] [place] [address] PCP - General Family Medicine 07/18/20 Sharon Guzman MD [address] [facility] [address] Referring Internal Medicine 07/15/20 Sharon Guzman MD [address] [facility] [address] Home Care Provider Internal Medicine 07/15/20 Maliha Lacy, HÉCTOR [address] [place] [address] Specialty Radiopharmacist Hematology/Oncology 11/30/21 Francisco Javier Perez MD [address] [place] [address] Hematology/Oncology 05/12/23 Press Department Manager Relationship Specialty Start Date End Date Apollo Melo MD [address] [place] [address] PCP - General Family Medicine 07/18/20 Sean Rodriguez MD [address] MACLOLMMiguel [place] [address] PCP - Hematology/Oncology Hematology/Oncology 04/05/22 05/11/23 Sharon Guzman MD [address] [facility] [place] [address] Referring Internal Medicine 07/15/20 Sharon Guzman MD [address] [facility] [address] Home Care Provider Internal Medicine 07/15/20 Maliha Lacy, RN [address] [place] [address] Specialty Radiopharmacist Hematology/Oncology 11/30/21 Press Department Manager Relationship Specialty Start Date End Date Apollo Melo MD [address] [place] [address] PCP - General Family Medicine 07/18/20 Sean Rodriguez MD [address] MAL[address] [place] [address] PCP - Hematology/Oncology Hematology/Oncology 04/05/22 05/11/23 Sharon Guzman MD [address] [facility] [place] [address] Referring Internal Medicine 07/15/20 Sharon Guzman MD [address] [facility] [address] Home Care Provider Internal Medicine 07/15/20 Maliha Lacy, HÉCTOR [address] [place] [address] Specialty Radiopharmacist Hematology/Oncology 11/30/21 Press Department Manager Relationship Specialty Start Date End Date Apollo Melo MD [address] [place] [address] PCP - General Family Medicine 07/18/20 Sean Rodriguez MD [address] [facility] [place] [address] PCP - Hematology/Oncology Hematology/Oncology 04/05/22 05/11/23 Sharon Guzman MD [address] [place] [address] Referring Internal Medicine 07/15/20 Sharon Guzman MD [address] [place] [address] Home Care Provider Internal Medicine 07/15/20 Maliha Lacy, HÉCTOR [address] [facility] [place] [address] Specialty Radiopharmacist Hematology/Oncology 11/30/21 Press Department Manager Relationship Specialty Start Date End Date Apollo Melo MD [address] [place] [address] PCP - General Family Medicine 07/18/20 Sharon Guzman MD [address] [address] Referring Internal Medicine 07/15/20 Sharon Guzman MD [address] [place] [address] Home Care Provider Internal Medicine 07/15/20 Maliha Lacy, RN [address] MALCOL[address] [place] [address] Specialty Radiopharmacist Hematology/Oncology 11/30/21 Francisco Javier Perez MD [address] [place] [address] Hematology/Oncology 05/12/23 Press Department Manager Relationship Specialty Start Date End Date Apollo Melo MD [address] [place] [address] PCP - General Family Medicine 07/18/20 Sharon Guzman MD Referring Internal Medicine 07/15/20 Sharon Guzman MD Home Care Provider Internal Medicine 07/15/20 Maliha Lacy, HÉCTOR [address]GADIELM[address]uel [place] [address] Specialty Radiopharmacist Hematology/Oncology 11/30/21 Francisco Javier Perez MD [address] [place] [address] Hematology/Oncology 05/12/23 Press Department Manager Relationship Specialty Start Date End Date Apollo Melo MD [address] [place] [address] PCP - General Family Medicine 07/18/20 Sharon Guzman MD Referring Internal Medicine 07/15/20 Sharon Guzman MD Home Care Provider Internal Medicine 07/15/20 Maliha Lacy RN [address] [place] [address] Specialty Radiopharmacist Hematology/Oncology 11/30/21 Francisco Javier Perez MD [address] [place] [address] Hematology/Oncology 05/12/23 Press Department Manager Relationship Specialty Start Date End Date Apollo Melo MD [address] [place] [address] PCP - General Family Medicine 07/18/20 Sharon Guzman MD Referring Internal Medicine 07/15/20 Sharon Guzman MD Home Care Provider Internal Medicine 07/15/20 Maliha Lacy, RN [address] [place] [address] Specialty Radiopharmacist Hematology/Oncology 11/30/21 Francisco Javier Perez MD [address] [place] [address] Hematology/Oncology 05/12/23 Press Department Manager Relationship Specialty Start Date End Date Apollo Melo MD [address] [place] [address] PCP - General Family Medicine 07/18/20 Sharon Guzman MD Referring Internal Medicine 07/15/20 Sharon Guzman MD Home Care Provider Internal Medicine 07/15/20 Maliha Lacy, HÉCTOR [address] [place] [address] Specialty Radiopharmacist Hematology/Oncology 11/30/21 Francisco Javier Perez MD [address] [place] [address] Hematology/Oncology 05/12/23 Press Department Manager Relationship Specialty Start Date End Date Apollo Melo MD [address] [facility] [place] [address] PCP - General Family Medicine 07/18/20 Sharon Guzman MD Referring Internal Medicine 07/15/20 Sharon Guzman MD Home Care Provider Internal Medicine 07/15/20 Maliha Lacy RN [address] [place] [address] Specialty Radiopharmacist Hematology/Oncology 11/30/21 Francisco Javier Perez MD [address] [place] [address] Hematology/Oncology 05/12/23 Press Department Manager Relationship Specialty Start Date End Date Apollo Melo MD [address] [place] [address] PCP - General Family Medicine 07/18/20 Sharon Guzman MD Referring Internal Medicine 07/15/20 Sharon Guzman MD Home Care Provider Internal Medicine 07/15/20 Maliha Lacy, RN [address] [place] [place] [address] Specialty Radiopharmacist Hematology/Oncology 11/30/21 Francisco Javier Perez MD [address] RAFAEL[place]uel [place] [address] Hematology/Oncology 05/12/23 Press Department Manager Relationship Specialty Start Date End Date Apollo Melo MD [address] [facility] [place] [address] PCP - General Family Medicine 07/18/20 Sharon Guzman MD Referring Internal Medicine 07/15/20 Sharon Guzman MD Home Care Provider Internal Medicine 07/15/20 Maliha Lacy, HÉCTOR [address] [place] [address] Specialty Radiopharmacist Hematology/Oncology 11/30/21 Francisco Javier Perez MD [address] [place] [address] Hematology/Oncology 05/12/23 Press Department Manager Relationship Specialty Start Date End Date Apollo Melo MD [address] [facility] [place] [address] PCP - General Family Medicine 07/18/20 Sharon Guzman MD Referring Internal Medicine 07/15/20 Sharon Guzman MD Home Care Provider Internal Medicine 07/15/20 Maliha Lacy RN [address] [place] [address] Specialty Radiopharmacist Hematology/Oncology 11/30/21 Francisco Javier Perez MD [address]ICKG[address] [place] [address] Hematology/Oncology 05/12/23 Press Department Manager Relationship Specialty Start Date End Date Apollo Melo MD [facility] [place] [address] PCP - General Family Medicine 07/18/20 Sharon Guzman MD Referring Internal Medicine 07/15/20 Sharon Guzman MD Home Care Provider Internal Medicine 07/15/20 Maliha Lacy, HÉCTOR [address] [place] [address] Specialty Radiopharmacist Hematology/Oncology 11/30/21 Francisco Javier Perez MD [address] [place] [address] Hematology/Oncology 05/12/23 Press Department Manager Relationship Specialty Start Date End Date Apollo Melo MD [address] [facility] [place] [address] [phone] PCP - General Family Medicine 07/18/20 Sharon Guzman MD Referring Internal Medicine 07/15/20 Sharon Guzman MD Home Care Provider Internal Medicine 07/15/20 Maliha Lacy, HÉCTOR [address] [place] [address] Specialty Radiopharmacist Hematology/Oncology 11/30/21 Francisco Javier Perez MD [address] [place] [place] [address] Hematology/Oncology 05/12/23 Press Department Manager Relationship Specialty Start Date End Date Apollo Melo MD [address] [facility] [place] [address] PCP - General Family Medicine 07/18/20 Sharon Guzman MD Referring Internal Medicine 07/15/20 Sharon Guzman MD Home Care Provider Internal Medicine 07/15/20 Maliha Lacy, HÉCTOR [address] [place] [address] Specialty Radiopharmacist Hematology/Oncology 11/30/21 Francisco Javier Perez MD [address] [place] [address] Hematology/Oncology 05/12/23 Press Department Manager Relationship Specialty Start Date End Date Apollo Melo MD [address] [facility] [place] [address] PCP - General Family Medicine 07/18/20 Sharon Guzman MD Referring Internal Medicine 07/15/20 Sharon Guzman MD Home Care Provider Internal Medicine 07/15/20 Maliha Lacy, RN [address] [place] [address] Specialty Radiopharmacist Hematology/Oncology 11/30/21 Francisco Javier Perez MD [address] [place] [address] Hematology/Oncology 05/12/23 Press Department Manager Relationship Specialty Start Date End Date Apollo Melo MD [address] [place] [address] PCP - General Family Medicine 07/18/20 Sharon Guzman MD Referring Internal Medicine 07/15/20 Sharon Guzman MD Home Care Provider Internal Medicine 07/15/20 Maliha Lacy, HÉCTOR [address] [place] [place] [address] Specialty Radiopharmacist Hematology/Oncology 11/30/21 Francisco Javier Perez MD [address] [place] [address] Hematology/Oncology 05/12/23 Press Department Manager Relationship Specialty Start Date End Date Apollo Melo MD [address] [place] [address] PCP - General Family Medicine 07/18/20 Sharon Guzman MD Referring Internal Medicine 07/15/20 Sharon Guzman MD Home Care Provider Internal Medicine 07/15/20 Maliha Lacy, HÉCTOR [address] [place] [address] Specialty Radiopharmacist Hematology/Oncology 11/30/21 Francisco Javier Perez MD [address] [place] [address] Hematology/Oncology 05/12/23 Press Department Manager Relationship Specialty Start Date End Date Apollo Melo MD [address] [place] [address] PCP - General Family Medicine 07/18/20 Sharon Guzman MD Referring Internal Medicine 07/15/20 Sharon Guzman MD Home Care Provider Internal Medicine 07/15/20 Maliha Lacy, HÉCTOR [address] [place], [place] [address] Specialty Radiopharmacist Hematology/Oncology 11/30/21 Francisco Javier Perez MD [address] [place] [address] Hematology/Oncology 05/12/23 Press Department Manager Relationship Specialty Start Date End Date Apollo Melo MD [address] [place], [place] [address] [phone] PCP - General Family Medicine 07/18/20 Sharon Guzman MD Referring Internal Medicine 07/15/20 Sharon Guzman MD Home Care Provider Internal Medicine 07/15/20 Mona King RN Specialty Radiopharmacist Oncology 07/30/20 03/06/22 Press Department Manager Relationship Specialty Start Date End Date Apollo Melo MD [address] [place], [place] [address] [phone] PCP - General Family Medicine 07/18/20 Sharon Guzman MD Referring Internal Medicine 07/15/20 Sharon Guzman MD Home Care Provider Internal Medicine 07/15/20 Maliha Lacy RN [address] [place] [address] Specialty Radiopharmacist Hematology/Oncology 11/30/21 Francisco Javier Perez MD [address] [place] [address] Hematology/Oncology 05/12/23 Press Department Manager Relationship Specialty Start Date End Date Apollo Melo MD [address] [place] [address] PCP - General Family Medicine 07/18/20 Sharon Guzman MD Referring Internal Medicine 07/15/20 Sharon Guzman MD Home Care Provider Internal Medicine 07/15/20 Maliha Lacy RN [address] [place] [address] Specialty Radiopharmacist Hematology/Oncology 11/30/21 Francisco Javier Perez MD [address] [place] [address] Hematology/Oncology 05/12/23 Press Department Manager Relationship Specialty Start Date End Date Apollo Melo MD [address] [place] [address] PCP - General Family Medicine 07/18/20 Sharon Guzman MD Referring Internal Medicine 07/15/20 Sharon Guzman MD Home Care Provider Internal Medicine 07/15/20 Maliha Lacy RN [address] [place] [address] Specialty Radiopharmacist Hematology/Oncology 11/30/21 Francisco Javier Perez MD [address] [place] [place] [address] Hematology/Oncology 05/12/23 Press Department Manager Relationship Specialty Start Date End Date Apollo Melo MD [address] [facility] [place] [address] PCP - General Family Medicine 07/18/20 Sharon Guzman MD Referring Internal Medicine 07/15/20 Sharon Guzman MD Home Care Provider Internal Medicine 07/15/20 Maliha Lacy, RN [address] [place] [address] Specialty Radiopharmacist Hematology/Oncology 11/30/21 Francisco Javier Perez MD [address] [place] [address] Hematology/Oncology 05/12/23 Press Department Manager Relationship Specialty Start Date End Date Apollo Melo MD [address] [facility] [place] [address] PCP - General Family Medicine 07/18/20 Sharon Guzman MD Referring Internal Medicine 07/15/20 Sharon Guzman MD Home Care Provider Internal Medicine 07/15/20 Maliha Lacy, HÉCTOR [address] [place] [address] Specialty Radiopharmacist Hematology/Oncology 11/30/21 Francisco Javier Perez MD [address] [place] [address] Hematology/Oncology 05/12/23 Press Department Manager Relationship Specialty Start Date End Date Apollo Melo MD [address] [place] [address] PCP - General Family Medicine 07/18/20 Sharon Guzman MD Referring Internal Medicine 07/15/20 Sharon Guzman MD Home Care Provider Internal Medicine 07/15/20 Maliha Lacy, HÉCTOR [address] [place] [address] Specialty Radiopharmacist Hematology/Oncology 11/30/21 Francisco Javier Perez MD [address] [place] [address] Hematology/Oncology 05/12/23 Press Department Manager Relationship Specialty Start Date End Date Apollo Melo MD [address] [place] [address] PCP - General Family Medicine 07/18/20 Sharon Guzman MD Referring Internal Medicine 07/15/20 Sharon Guzman MD Home Care Provider Internal Medicine 07/15/20 Maliha Lacy, HÉCTOR [address] [place] [address] Specialty Radiopharmacist Hematology/Oncology 11/30/21 Francisco Javier Perez MD [address] [place] [address] Hematology/Oncology 05/12/23 Sharda Tsai APRN.WARP TYING MACHINE TENDER [address] [place] [address] Heel Padder Family Medicine 08/18/24 Chavez Bernal MAT MACHINE OPERATOR.WARP TYING MACHINE TENDER [address] [place] [address] Heel Padder Family Medicine 08/27/24 Press Department Manager Relationship Specialty Start Date End Date Apollo Melo MD [address] [place] [address] PCP - General Family Medicine 07/18/20 Sharon Guzman MD Referring Internal Medicine 07/15/20 Sharon Guzman MD Home Care Provider Internal Medicine 07/15/20 Maliha Lacy RN [address] [place] [address] Specialty Radiopharmacist Hematology/Oncology 11/30/21 Francisco Javier Perez MD [address] [place] [address] Hematology/Oncology 05/12/23 Sharda Tsai APRN.WARP TYING MACHINE TENDER [address] [place] [address] Heel Padder Family Medicine 08/18/24 Chavez Bernal APRN.WARP TYING MACHINE TENDER [address] [facility] [place] [address] Heel Padder Family Medicine 08/27/24 Press Department Manager Relationship Specialty Start Date End Date Apollo Melo MD [address] [place] [address] PCP - General Family Medicine 07/18/20 Sharon Guzman MD Referring Internal Medicine 07/15/20 Sharon Guzman MD Home Care Provider Internal Medicine 07/15/20 Maliha Lacy, HÉCTOR [address] [place] [address] Specialty Radiopharmacist Hematology/Oncology 11/30/21 Francisco Javier Perez MD [address] [place] [address] Hematology/Oncology 05/12/23 Sharda Tsai, SHARAN.WARP TYING MACHINE TENDER [address] [place] [address] Heel Padder Family Medicine 08/18/24 Chavez Bernal APRN.WARP TYING MACHINE TENDER [address] [place] [address] Heel Padder Family Medicine 08/27/24 Press Department Manager Relationship Specialty Start Date End Date Apollo Melo MD [address] [place] [address] PCP - General Family Medicine 07/18/20 Sharon Guzman MD Referring Internal Medicine 07/15/20 Sharon Guzman MD Home Care Provider Internal Medicine 07/15/20 Maliha Lacy, RN [address] [place] [address] Specialty Radiopharmacist Hematology/Oncology 11/30/21 Francisco Javier Perez MD [address] [place] [address] Hematology/Oncology 05/12/23 Sharda Tsai APRN.WARP TYING MACHINE TENDER [address] [place] [address] Heel Padder Family Medicine 08/18/24 Chavez Bernal MAT MACHINE OPERATOR.WARP TYING MACHINE TENDER [address] [place] [address] Heel Padder Family [facility] 08/27/24 Press Department Manager Relationship Specialty Start Date End Date Apollo Melo MD [address] [place] [address] PCP - General Family Medicine 07/18/20 Sharon Guzman MD Referring Internal Medicine 07/15/20 Sharon Guzman MD Home Care Provider Internal Medicine 07/15/20 Maliha Lacy, HÉCTOR [address] [place] [address] Specialty Radiopharmacist Hematology/Oncology 11/30/21 Francisco Javier Perez MD [address] [place] [address] Hematology/Oncology 05/12/23 Sharda Tsai APRN.WARP TYING MACHINE TENDER [address] [place] [address] Heel Padder Family Medicine 08/18/24 Chavez Bernal APRN.WARP TYING MACHINE TENDER [address] [place] [address] Heel Padder Family Medicine 08/27/24 Press Department Manager Relationship Specialty Start Date End Date Apollo Melo MD [address] [place] [address] PCP - General Family Medicine 07/18/20 Sharon Guzman MD Referring Internal Medicine 07/15/20 Sharon Guzman MD Home Care Provider Internal Medicine 07/15/20 Maliha Lacy RN [address] [place] [address] Specialty Radiopharmacist Hematology/Oncology 11/30/21 Francisco Javier Perez MD [address] [place] [address] Hematology/Oncology 05/12/23 Sharda Tsai APRN.WARP TYING MACHINE TENDER [address] [place] [address] Heel Padder Family Medicine 08/18/24 Chavez Bernal APRN.WARP TYING MACHINE TENDER [address] [place] [address] Heel Padder Family Medicine 08/27/24 Press Department Manager Relationship Specialty Start Date End Date Apollo Melo MD [address] [place] [address] PCP - General Family Medicine 07/18/20 Sharon Guzman MD Referring Internal Medicine 07/15/20 Sharon Guzman MD Home Care Provider Internal Medicine 07/15/20 Maliha Lacy RN [address] [place] [address] Specialty Radiopharmacist Hematology/Oncology 11/30/21 Francisco Javier Perez MD [address] [place] [address] Hematology/Oncology 05/12/23 Sharda Tsai APRN.WARP TYING MACHINE TENDER [address] [facility] [address] Heel Padder Family Medicine 08/18/24 Chavez Bernal APRN.WARP TYING MACHINE TENDER [address] [facility] [place] [address] Heel Padder Family [facility] 08/27/24 Press Department Manager Relationship Specialty Start Date End Date Apollo Melo MD [address] [facility] [place] [address] PCP - General Family Medicine 07/18/20 Sharon Guzman MD Referring Internal Medicine 07/15/20 Sharon Guzman MD Home Care Provider Internal Medicine 07/15/20 Maliha Lacy, HÉCTOR [address] [place] [address] Specialty Radiopharmacist Hematology/Oncology 11/30/21 Francisco Javier Perez MD [address] [place] [address] Hematology/Oncology 05/12/23 Sharda Tsai APRN.WARP TYING MACHINE TENDER [address] [facility] [place] [address] Heel Padder Family [facility] 08/18/24 Chavez Bernal APRN.WARP TYING MACHINE TENDER [address] [facility] [place] [address] Heel Padder Family [facility] 08/27/24 Press Department Manager Relationship Specialty Start Date End Date Apollo Melo MD [address] [place] [address] PCP - General Family Medicine 07/18/20 Sharon Guzman MD Referring Internal Medicine 07/15/20 Sharon Guzman MD Home Care Provider Internal Medicine 07/15/20 Maliha Lacy, HÉCTOR [address] [place] [address] Specialty Radiopharmacist Hematology/Oncology 11/30/21 Francisco Javier Perez MD [address] [place] [address] Hematology/Oncology 05/12/23 Sharda Tsai, MAT MACHINE OPERATOR.WARP TYING MACHINE TENDER [address] [place] [address] Heel Padder Family [facility] 08/18/24 Chavez Bernal, MAT MACHINE OPERATOR.WARP TYING MACHINE TENDER [address] [place] [address] Heel Padder Family [facility] 08/27/24 Press Department Manager Relationship Specialty Start Date End Date Apollo Melo MD [address] [place] [address] PCP - General Family Medicine 07/18/20 Sharon Guzman MD Referring Internal Medicine 07/15/20 Sharon Guzman MD Home Care Provider Internal Medicine 07/15/20 Maliha Lacy, RN [address] [place] [address] Specialty Radiopharmacist Hematology/Oncology 11/30/21 Francisco Javier Perez MD [address] [place] [address] Hematology/Oncology 05/12/23 Sharda Tsai APRN.WARP TYING MACHINE TENDER [address] [place] [address] Heel Padder Family Medicine 08/18/24 Chavez Bernal APRN.WARP TYING MACHINE TENDER [address] [place] [address] Heel Padder Family Medicine 08/27/24 Press Department Manager Relationship Specialty Start Date End Date Apollo Melo MD [address] [place] [address] PCP - General Family Medicine 07/18/20 Sharon Guzman MD Referring Internal Medicine 07/15/20 Sharon Guzman MD Home Care Provider Internal Medicine 07/15/20 Maliha Lacy RN [address] [place] [address] Specialty Radiopharmacist Hematology/Oncology 11/30/21 Francisco Javier Perez MD [address] [place] [address] Hematology/Oncology 05/12/23 Sharda Tsai APRN.WARP TYING MACHINE TENDER [address] [place] [address] Heel Padder Family Medicine 08/18/24 Chavez Bernal APRN.WARP TYING MACHINE TENDER [address] [place] [address] Heel Padder Family Medicine 08/27/24 Press Department Manager Relationship Specialty Start Date End Date Apollo Melo MD [address] [place] [address] PCP - General Family Medicine 07/18/20 Sharon Guzman MD Referring Internal Medicine 07/15/20 Sharon Guzman MD Home Care Provider Internal Medicine 07/15/20 Maliha Lacy, RN [address] [place] [address] Specialty Radiopharmacist Hematology/Oncology 11/30/21 Francisco Javier Perez MD [address] [place] [address] Hematology/Oncology 05/12/23 Sharda Tsai APRN.WARP TYING MACHINE TENDER [address] [place] [address] Heel Padder Family Medicine 08/18/24 Chavez Bernal APRN.WARP TYING MACHINE TENDER [address] [place] [address] Heel Padder Family Medicine 08/27/24 Press Department Manager Relationship Specialty Start Date End Date Apollo Melo MD [address] [facility] [place] [address] [phone] PCP - General Family Medicine 07/18/20 Sharon Guzman MD Referring Internal Medicine 07/15/20 Sharon Guzman MD Home Care Provider Internal Medicine 07/15/20 Maliha Lacy, HÉCTOR [address] [place] [address] Specialty Radiopharmacist Hematology/Oncology 11/30/21 Francisco Javier Perez MD [address] [place] [address] Hematology/Oncology 05/12/23 Sharda Tsai APRN.WARP TYING MACHINE TENDER [address] [place] [address] Heel Padder Family Medicine 08/18/24 Chavez Bernal, MAT MACHINE OPERATOR.WARP TYING MACHINE TENDER [address] [place] [address] Heel Padder Family [facility] 08/27/24 Press Department Manager Relationship Specialty Start Date End Date Apollo Melo MD [address] [place] [address] PCP - General Family Medicine 07/18/20 Sharon Guzman MD Referring Internal Medicine 07/15/20 Sharon Guzman MD Home Care Provider Internal Medicine 07/15/20 Maliha Lacy RN [address] [place] [address] Specialty Radiopharmacist Hematology/Oncology 11/30/21 Francisco Javier Perez MD [address] [place] [address] Hematology/Oncology 05/12/23 Sharda Tsai APRN.WARP TYING MACHINE TENDER [address] [facility] [place] [address] Heel Padder Family Medicine 08/18/24 Chavez Bernal APRN.WARP TYING MACHINE TENDER [address] [facility] [place] [address] Heel Padder Family Medicine 08/27/24 Press Department Manager Relationship Specialty Start Date End Date Apollo Melo MD [address] [facility] [place] [address] PCP - General Family Medicine 07/18/20 Sharon Guzman MD Referring Internal Medicine 07/15/20 Sharon Guzman MD Home Care Provider Internal Medicine 07/15/20 Maliha Lacy RN [address] [place] [address] Specialty Radiopharmacist Hematology/Oncology 11/30/21 Francisco Javier Perez MD [address] [place] [address] Hematology/Oncology 05/12/23 Chavez Bernal APRN.WARP TYING MACHINE TENDER [address] [facility] [place] [address] Heel Padder Family [facility] 08/27/24 Press Department Manager Relationship Specialty Start Date End Date Apollo Melo MD [address] [facility] [place] [address] PCP - General Family Medicine 07/18/20 Sharon Guzman MD Referring Internal Medicine 07/15/20 Sharon Guzman MD Home Care Provider Internal Medicine 07/15/20 Maliha Lacy, HÉCTOR [address] [place] [place] [address] Specialty Radiopharmacist Hematology/Oncology 11/30/21 Francisco Javier Perez MD [address] [place] [address] Hematology/Oncology 05/12/23 Chavez Bernal APRN.WARP TYING MACHINE TENDER [address] [facility] [place] [address] Heel Padder Family Medicine 08/27/24 Team Status: Active Member Role Status Dates Dr. Apollo Melo MD Primary Care Provider Active Team Status: Active Member Role Status Dates Dr. Apollo Melo MD Primary Care Provider Active Start: February 18, 2025 Dr. Rodrigo Ceballos MD Admit Provider Active Star t: [...] AM EST 22.5 mg Buttocks, Right zoledronic of-znrhyllx-1.9NaCl 4 mg iv piggyback 100 mL (ZOMETA) [...] BE BASED ON THE PRIMARY CLINICAL RECORDS. [employer] provides no warranty or guarantee of the accuracy or completeness of information in this document.
[2025-02-19] VITALS (28 sets, daily range): BP systolic 84–132; BP diastolic 59–85; PULSE 59–90; RESP 16–25; TEMP 36.1–36.8; O2SAT 97–100; BMI 18.8
[2025-02-19 04:38] LABS: Hematocrit 35.2 % (40-54); Hemoglobin 12.4 g/dL (13.0-16.5); Mean Corp Hgb Conc 35.2 g/dL (32-36); Mean Corpuscular Hgb 32.3 pg (27.0-32.0); Mean Corpuscular Volume 91.7 fL (80-94); Mean Platelet Vol. 10.4 fl (6.2-12.0); Platelet Count 218 K/mm3 (150-450); RBC Distribution Width CV 13.3 % (11.6-14.6); RBC Distribution Width SD 44.4 fl (35.1-43.9); Red Blood Count 3.84 M/mm3 (4.6-6.2)
[2025-02-19 05:07] LABS: ALB/GLOB Ratio 1.8 RATIO (0.9-2.4); AST(SGOT) 91 U/L (<=37); Alanine Aminotransfer ALT/SGPT 17 U/L (<=46); Albumin, Serum 3.8 g/dL (3.4-4.8); Alkaline Phosphatase 56 U/L (40-129); Anion Gap 11 (5-15); BUN 19 mg/dL (4-19); BUN/Creat Ratio 23.1 RATIO (10-20); Calcium,Total 8.5 mg/dL (7.6-11.0); Carbon Dioxide 20.7 mmol/L (21.0-32.0); Chloride 108 mmol/L (98-108); Creatinine, Serum 0.84 mg/dL (0.70-1.20); EST Glomerular Filtration Rate 94 (>60); Estimated Creatinine Clearance 64.47 ml/min (50-250); Globulin 2.1 g/dL (2.2-4.2); Glucose 96 mg/dL (70-99); Potassium 3.6 mmol/L (3.3-5.1); Protein, Total 5.8 g/dL (5.9-8.4); Sodium Level 140 mmol/L (133-145); Total Bilirubin 0.48 mg/dL (0.00-1.30)
--- NOTE | 2025-02-19 07:00 | ECHOCS_ITS ---
Reason For Study Reason For Study: CAD/ASHD Procedure This was a 2D Doppler, Color Flow transthoracic echocardiogram. The study was technically difficult. Due to body habitis & COPD. Contrast injection was performed. Exam performed portable in ICU/CCU. Exam begins with apical imaging windows due to poor parasternal windows. Left Ventricle Normal size and thickness. Severe inferior septal, inferior and posterior hypokinesis. Estimated LVEF 35-40%. Stage I diastolic dysfunction. Right Ventricle Normal right ventricle. Atria The left and right atria are normal. Patent foramen ovale. Mitral Valve Mild (1+) mitral valve insufficiency. Tricuspid Valve Trivial tricuspid valve insufficiency. Unable to estimate RV systolic pressure due to insufficient tricuspid regurgitant envelope. Aortic Valve Not well-visualized and parasternal short or long axis. No aortic valve stenosis or regurgitation. Pulmonic Valve The pulmonic valve is not well visualized. Great Vessels The aortic root is not well visualized. Pericardium/Pleural No pericardial effusion. Medication Diluted definity 3.0ml given slow IV push to enhance endocardial definition. MMode/2D Measurements & Calculations LVIDd: 4.4 cm IVSd: 0.86 cm LAV(MOD- bp): 58.1 ml LVIDs: 3.2 cm LVPWd: 0.92 cm RVDd: 2.4 cm FS: 26.6 % LAV(MOD- bp) Indexed: 34.9 ml/m2 LAV(MOD- sp2): 58.7 ml LAV(MOD- sp4): 42.6 ml SV(MOD- sp4): 28.1 ml LVAd ap4: 27.1 cm2 LVAd ap2: 27.8 cm2 LVLd ap4: 8.3 cm LVLd ap2: 8.7 cm SI(MOD- sp4): 16.9 ml/m2 EDV(MOD-sp4): 73.9 ml EDV(MOD-sp2): 74.5 ml EDV(sp4-el): 74.8 ml EDV(sp2-el): 75.0 ml LVAs ap4: 19.6 cm2 LVAs ap2: 19.4 cm2 LVLs ap4: 7.0 cm LVLs ap2: 7.8 cm ESV(MOD-sp4): 45.8 ml ESV(MOD-sp2): 42.4 ml ESV(sp4-el): 46.3 ml ESV(sp2-el): 41.0 ml EF(MOD-sp4): 38.0 % EF(MOD-sp2): 43.1 % EF(sp4-el): 38.1 % SV(MOD-sp2): 32.1 ml SV(sp4-el): 28.5 ml LA A4 area: 14.3 cm2 SI(MOD-sp2): 19.3 ml/m2 RA A4 area: 8.7 cm2 Time Measurements MV dec time: 0.14 sec Doppler Measurements & Calculations MV E max choco: 70.5 cm/sec Lat Peak E' Choco: 5.0 cm/sec Med Peak E' Choco: 6.5 cm/sec MV A max choco: 78.7 cm/sec E/E' lat: 14.2 E/E' med: 10.8 MV E/A: 0.90 MV V2 max: 94.4 cm/sec MV P1/2t max choco: 93.8 cm/sec Ao V2 max: 131.0 cm/sec MV max P.6 mmHg MV P1/2t: 68.2 msec Ao max P.9 mmHg MV V2 mean: 46.7 cm/sec MV dec slope: 403.0 cm/sec2 Ao V2 mean: 81.4 cm/sec MV mean P.1 mmHg Ao mean P.0 mmHg MV V2 VTI: 21.8 cm MVA(P1/2t): 3.2 cm2 Ao V2 VTI: 24.6 cm AV (velocity ratio): 0.67 LV V1 max: 87.5 cm/sec TR max choco: 254.6 cm/sec LV V1 max P.1 mmHg TR max P.9 mmHg LV V1 mean P.5 mmHg LV V1 mean: 57.8 cm/sec LV V1 VTI: 16.5 cm ECHO/Echo Complete W/ Contrast Interpretation Summary The study was technically difficult. Severe inferior septal, inferior and posterior hypokinesis. Estimated LVEF 35-4 0%. Stage I diastolic dysfunction. Mild (1+) mitral valve insufficiency. Patent foramen ovale. Ordering Physician: Rodrigo Ceballos Referring Physician: Casey Melo Performed By: Karla Woody RVT, RDCS and Student
--- NOTE | 2025-02-19 07:39 | PN.HOSP_ITS ---
Reason for Visit Reason for Visit: Diagnoses Malignant neoplasm of prostate (02/18/25) ST elevation (STEMI) myocardial infarction involving other sites (02/18/25) ST elevation (STEMI) myocardial infarction of unspecified site (02/18/25) Atherosclerotic heart disease of [place] coronary artery with unstable angina pectoris (02/18/25) Other ill-defined heart diseases (02/18/25) Personal history of other diseases of the respiratory system (02/18/25) Subjective Subjective Feeling well. No new complaint. Objective Data Objective Data Vital Signs: Vital Signs Temp Pulse Resp BP Pulse Ox O2 Del Method 36.1 C L 65 20 H 105/72 98 Room Air 02/19/25 03:00 02/19/25 07:00 02/19/25 07:00 02/19/25 07:00 02/19/25 07:00 02/19/25 07:00 Oxygen Delivery Method Room Air Weight: 56.1 kg Body Mass Index (BMI) 18.8 Intake & Output: Intake and Output for Last 24 Hours 02/17/25 02/18/25 02/19/25 23:59 23:59 23:59 Intake Total 120 / 120 993.75 / 993.75 Output Total 1625 / 1625 500 / 500 Balance -1505 / -1505 493.75 / 493.75 Lab / Micro Data 02/19/25 04:23 02/19/25 04:23 Labs: Laboratory Results - last 24 hr 02/18/25 13:45: WBC 14.1 H, RBC 4.33 L, Hgb 14.2, Hct 40.4, MCV 93.3, MCH 32.8 H , MCHC 35.1, RDW Std Deviation 45.2 H, RDW Coeff of Nir 13.2, Plt Count 300, MPV 10.9, Immature Gran % (Auto) 0.400, Neut % (Auto) 53.7, Lymph % (Auto) 35.4, [place] % (Auto) 6.8, Eos % (Auto) 2.8, Baso % (Auto) 0.9, Absolute Neuts (auto) 7.6, Absolute Lymphs (auto) 4.98 H, Nucleated RBC % 0, Differential Comment SCANNED, Platelet Estimate ADEQUATE, Sodium 141, Potassium 4.0, Chloride 104, Carbon Dioxide 21.5, Anion Gap 15, BUN 16, Creatinine 1.27 H, Estim Creat Clear Calc 42.64 L, Est GFR (MDRD) Non-Af 61, BUN/Creatinine Ratio 12.6, Glucose 143 H , Hemoglobin A1c 5.5, Calcium 10.0, Troponin T High Sens 22, TSH 3.330 02/18/25 20:13: Troponin T Hi Sens 4Hr 1184 H* 02/19/25 04:23: WBC 10.0, RBC 3.84 L, Hgb 12.4 L, Hct 35.2 L, MCV 91.7, MCH 32.3 H, MCHC 35.2, RDW Std Deviation 44.4 H, RDW Coeff of Nir 13.3, Plt Count 218, MPV 10.4, Sodium 140, Potassium 3.6, Chloride 108, Carbon Dioxide 20.7 L, Anion Gap 11, BUN 19, Creatinine 0.84, Estim Creat Clear Calc 64.47, Est GFR (MDRD) Non-Af 94, BUN/Creatinine Ratio 23.1 H, Glucose 96, Calcium 8.5, Total Bilirubin 0.48, AST 91 H, ALT 17, Alkaline Phosphatase 56, Total Protein 5.8 L, Albumin 3.8, Globulin 2.1 L, Albumin/Globulin Ratio 1.8 Rhythm Strip Rhythm Strip: Sinus Rhythm Ectopy: None Physical Exam Const alert and no apparent distress Constitutional Narrative: up in bed. NAD. Afebrile. HEENT head/scalp atraumatic and moist oral mucous membranes Resp normal respiratory effort, no retractions, no use of accessory muscles and clear to auscultation bilaterally Cardio regular rate, S1 normal heart sound and S2 normal heart sound GI normal to inspection, nondistended, normoactive bowel sounds, soft to palpation, non-tender and non-distended Extremity Extremity Narrative: ecchymosis right wrist extending proximally. Neuro Sensorium / Orientation: awake and alert Assessment & Plan Assessment/Plan (1) STEMI (ST elevation myocardial infarction): PLAN: s/p PCI to circumflex on 02/18 on ASA, clopidogrel, atorvastatin, carvedilol, lisinopril (2) HFrEF (heart failure with reduced ejection fraction): PLAN: EF 40% on cath. Echo EF 35-40% stage I DD. PFO. on lisinopril, carvedilol, empagliflozin (3) Ecchymosis: PLAN: post cath. monitor for now. PLAN: Plan VTE prophylaxis: LMWH Charges/Coding Visit Charges Inpatient E&M: 11456 Subs Hosp L2
--- NOTE | 2025-02-19 08:03 | RAD_ITS ---
PROCEDURE: CHEST 1 VIEW (PORTABLE) 02/19/2025 REASON FOR EXAM: CHEST PAIN TECHNIQUE: Two-view AP portable upright chest. COMPARISON: Chest x-ray of 06/14/2020 RAD/Chest 1 View (Portable) IMPRESSION: A right subclavian central venous catheter with port is seen, with tip projecti ng over the SVC. No pleural effusion or pneumothorax is seen. Lungs appear clear of acute disease. The cardiomediastinal silhouette is within the normal range, and unchanged. Bilateral acromioclavicular joint degenerative changes and asymmetric left jesse ohumeral joint degenerative changes are noted. Mild thoracic spine degenerative changes are seen, with mild gentle dextroscoli osis noted. No acute osseous change is evident. Reading Location: [address]
[2025-02-19 08:20] LABS: Cholesterol 206 mg/dL (<=200); High Density Lipoprotein 46 mg/dL; Low Density Lipoprotein Calc. 142 mg/dL; Triglycerides 90 mg/dL; Very Low Density Lipoprotein 18 mg/dL (5-40); cholesterol:hdl ratio screen 4.45
--- NOTE | 2025-02-19 09:04 | PN.CARD_ITS ---
Subjective Subjective Patient reports complete resolution of his chest symptoms once his stent was placed. He has had no recurrence of any chest pains. His telemetry shows normal sinus rhythm at 60 bpm he had 4-5 beats of VT on several different occasions overnight consistent with reperfusion. Currently the patient is resting comfortably having an echocardiogram performed. Objective Data Vital Signs: Vital Signs Temp Pulse Resp BP Pulse Ox O2 Del Method 96.9 F L 72 16 103/71 98 Room Air 02/19/25 03:00 02/19/25 08:00 02/19/25 08:00 02/19/25 08:00 02/19/25 08:27 02/19/25 08:27 Oxygen Delivery Method Room Air Weight: 123 lb 10.869 oz Body Mass Index (BMI) 18.8 Intake & Output: Intake and Output for Last 24 Hours 02/17/25 02/18/25 02/19/25 23:59 23:59 23:59 Intake Total 120 / 120 993.75 / 993.75 Output Total 1625 / 1625 500 / 500 Balance -1505 / -1505 493.75 / 493.75 Lab / Micro Data Attestation: I reviewed the patient's lab results. 02/19/25 04:23 02/19/25 04:23 Labs: Laboratory Results - last 24 hr 02/18/25 13:45: WBC 14.1 H, RBC 4.33 L, Hgb 14.2, Hct 40.4, MCV 93.3, MCH 32.8 H , MCHC 35.1, RDW Std Deviation 45.2 H, RDW Coeff of Nir 13.2, Plt Count 300, MPV 10.9, Immature Gran % (Auto) 0.400, Neut % (Auto) 53.7, Lymph % (Auto) 35.4, [place] % (Auto) 6.8, Eos % (Auto) 2.8, Baso % (Auto) 0.9, Absolute Neuts (auto) 7.6, Absolute Lymphs (auto) 4.98 H, Nucleated RBC % 0, Differential Comment SCANNED, Platelet Estimate ADEQUATE, Sodium 141, Potassium 4.0, Chloride 104, Carbon Dioxide 21.5, Anion Gap 15, BUN 16, Creatinine 1.27 H, Estim Creat Clear Calc 42.64 L, Est GFR (MDRD) Non-Af 61, BUN/Creatinine Ratio 12.6, Glucose 143 H , Hemoglobin A1c 5.5, Calcium 10.0, Troponin T High Sens 22, TSH 3.330 02/18/25 20:13: Troponin T Hi Sens 4Hr 1184 H* 02/19/25 04:23: WBC 10.0, RBC 3.84 L, Hgb 12.4 L, Hct 35.2 L, MCV 91.7, MCH 32.3 H, MCHC 35.2, RDW Std Deviation 44.4 H, RDW Coeff of Nir 13.3, Plt Count 218, MPV 10.4, Sodium 140, Potassium 3.6, Chloride 108, Carbon Dioxide 20.7 L, Anion Gap 11, BUN 19, Creatinine 0.84, Estim Creat Clear Calc 64.47, Est GFR (MDRD) Non-Af 94, BUN/Creatinine Ratio 23.1 H, Glucose 96, Calcium 8.5, Total Bilirubin 0.48, AST 91 H, ALT 17, Alkaline Phosphatase 56, Total Protein 5.8 L, Albumin 3.8, Globulin 2.1 L, Albumin/Globulin Ratio 1.8, Triglycerides 90, Cholesterol 206 H, LDL Cholesterol, Calc 142, VLDL Cholesterol 18, HDL Cholesterol 46, Cholesterol/HDL Ratio 4.45 Rhythm Strip Rhythm Strip: Sinus Rhythm Rate: 65 Ectopy: PVC(s) (Short runs of nonsustained VT 4-5 beats.) Cardiology Labs/Tests 02/18/25 13:45: WBC 14.1 H, RBC 4.33 L, Hgb 14.2, Hct 40.4, MCV 93.3, MCH 32.8 H , MCHC 35.1, Plt Count 300, MPV 10.9, Immature Gran % (Auto) 0.400, Neut % (Auto) 53.7, Lymph % (Auto) 35.4, [place] % (Auto) 6.8, Eos % (Auto) 2.8, Baso % (Auto) 0.9, Absolute Neuts (auto) 7.6, Nucleated RBC % 0, Sodium 141, Potassium 4.0, Chloride 104, Carbon Dioxide 21.5, Anion Gap 15, BUN 16, Creatinine 1.27 H, Est GFR (MDRD) Non-Af 61, BUN/Creatinine Ratio 12.6, Glucose 143 H, Hemoglobin A1c 5.5, Calcium 10.0 02/19/25 04:23: WBC 10.0, RBC 3.84 L, Hgb 12.4 L, Hct 35.2 L, MCV 91.7, MCH 32.3 H, MCHC 35.2, Plt Count 218, MPV 10.4, Sodium 140, Potassium 3.6, Chloride 108, Carbon Dioxide 20.7 L, Anion Gap 11, BUN 19, Creatinine 0.84, Est GFR (MDRD) Non-Af 94, BUN/Creatinine Ratio 23.1 H, Glucose 96, Calcium 8.5, Total Bilirubin 0.48, Triglycerides 90, Cholesterol 206 H, VLDL Cholesterol 18, HDL Cholesterol 46, Cholesterol/HDL Ratio 4.45 Rhythm: EKG: ECHO: Stress Test: Cardiac Cath: PCI: CT Surgery: Holter monitor: EPS: PPM: CXR: Chest CT Scan: Physical Exam Const alert and oriented x3 HEENT normocephalic Eyes EOMs intact bilaterally Neck no JVD Carotids: bruit Positive for right Chest inspection of chest normal Resp normal respiratory effort and clear to auscultation bilaterally Cardio Rate: regular rate Rhythm: regular rhythm Heart Sounds: S1 normal and S2 normal; Negative for click, gallop or murmur GI soft to palpation Extremity no pedal edema Extremity Narrative: Right radial access site showed significant ecchymoses but no hematoma. Good pulse 2+. Neuro Neuro Narrative: Alert and oriented x 3 Psych mental status grossly normal Assessment & Plan Assessment/Plan (1) Left ventricular systolic dysfunction (LVSD): PLAN: Patient's EF was estimated 40-45% at the time of his myocardial infarction by LV gram. A 2D echocardiogram is pending from this morning. We will titrate his LV recovery medications as blood pressure and heart rate will tolerate. (2) Acute posterior myocardial infarction: PLAN: Patient status post acute posterior wall microinfarction and stenting of a dominant circumflex. His LAD had a 60% stenosis which was not felt to be significant right coronary artery was nondominant. Will continue with dual antiplatelet therapy and LV recovery medical therapy. The patient has already agreed that he is to stop smoking. Will address his lipids and blood pressure with medications as tolerated. (3) COPD (chronic obstructive pulmonary disease): QUALIFIERS: COPD type: unspecified COPD Qualified Code(s): J44.9 - Chronic obstructive pulmonary disease, unspecified PLAN: Patient carries a history of COPD. This is managed through the primary service at the [facility]. (4) PVD (peripheral vascular disease): PLAN: Patient recently had noninvasive evaluation of his carotids and subclavian arteries. This was done through the [facility] and his vascular surgical team. This report available February 17, 2025 I read off of his my chart his bilateral carotids were less than 50%. He has an asymptomatic right carotid bruit. Patient also had a 50-99% stenosis of his left subclavian but he denies any anginal type symptoms or subclavian steal symptoms at this time. This would be very important should he need bypass graft surgery in the future this would need to be further investigated to a access use of the RIVAS graft if needed. The patient will follow-up with his vascular team at the [facility] after discharge. (5) Prostate cancer: PLAN: Patient apparently has a history of prostate cancer with a rising PSA level. This is being monitored through this primary service and the [facility]. PLAN: Plan 1. Will continue aspirin and Plavix uninterrupted for 1 year. This was discussed in detail with the patient. 2. Continue atorvastatin 40 mg nightly will reevaluate the patient's fasting lipids and liver functions in 6 weeks. 3. Continue carvedilol 3.125 mg twice daily Jardiance 10 mg daily, lisinopril 2.5 mg daily and will titrate Lasix as needed will probably discontinue it prior to discharge. 4. Will follow-up with results of the echocardiogram done this morning. 5. Patient tentatively should be able to be discharged in the next 24 to 48 hours. 6. The patient should not limit use of his right hand for 7 to 10 days. She should be able to progress back to normal activities with essentially no restrictions other than lifting for the next 6 weeks. The patient is retired. 7. The patient should follow-up in the [facility] with her advanced practitioner in 7 to 10 days [address] then with Dr. Meredith at 4 to 6 weeks. Charges/Coding Visit Charges Inpatient E&M: 84454 Subs Hosp L3
[2025-02-19] MEDS: Clopidogrel Bisulfate 75 MG Tablet PO (09:35)
[2025-02-19] MEDS: Furosemide 20 MG Tablet PO (09:35)
[2025-02-19] MEDS: Aspirin E.C. 81 MG Tablet PO (09:35)
[2025-02-19] MEDS: Allopurinol 300 MG Tablet PO (09:35)
[2025-02-19] MEDS: Potassium Chloride Oral Tablet 10 MEQ PO (09:35)
[2025-02-19] MEDS: Empagliflozin 10 MG Tablet PO (09:35)
[2025-02-19] MEDS: Enoxaparin 40 MG/0.4 ML Syringe SC (09:36)
--- NOTE | 2025-02-19 11:21 | CASEMGMT ---
JOSE ALBERTO MARTINEZ Assessment Face to Face with patient for initial transition planning/care coordination assessment. RN JUAN introduced self and role at [facility], pt voices understanding. Pt is A&Ox4 and is resting comfortably in bed and is calm. Care providers, pharmacy, and demographics verified. Admitting dx: STEMI LACE Strata: 2 PCP: Casey Melo Specialists: [facility] Preferred Pharmacy: [facility] [place] [facility] at the time of DC. Pt educated about potential P2Y Rx and reports that he is agreeable to meds to bed prior to DC. CM to follow for Rx cost Insurance: [employer] [facility] Prescription Benefit: Yes LNOK: Britney Hilliard (Friend), [place] (Cousin) Living Arrangements: Pt lives with his friend, Britney, in a single story home ADLs/IADLs: Indep. 6-Click score is 24 - No PT ordered Transportation: Self only. Pt states that Britney does not drive and that he will need transportation home at the time of DC. Per ICU rounds, DC is projected for tomorrow. Pt educated abut the [facility] Transportation van and reports that he will be able to get in and out of the vehicle independently. DME: Denies HHC/SNF: Denies Pt?s goal: Home Plan: Home with new anticoagulant Rx and transportation needs. Otherwise, pt states that he feels safe returning home with his friend once he is medically ready and denies further DC concerns at this time. Juan Teixeira RN, CM
--- NOTE | 2025-02-19 13:18 | CHAPLAIN ---
Type of Pastoral Visit ___ Initial Visit _x__ Follow-up Visit ___ On-call Visit ___ General Patient Visit ___ Spiritual Assessment ___ Family Conference ___ Bereavement ___ Rapid Response ___ Code Blue ___ Other (describe below) Pastoral Care Referral From _x__ Patient ___ Family ___ Nurse ___ Physician ___ Entertainment Manager ___ Curing Supervisor ___ Other (describe below) Sacrament/Intervention _x__ Active listening ___ Anointing ___ Taoism ___ Bereavement ___ Communion ___ Mary Alice exploration ___ ___ Life review _x__ Prayer ___ Reconciliation ___ Sacrament of Sick ___ Supportive presence ___ Wedding ___ Other (describe below) Pastoral Comments this patient was the stemi alert of yesterday that this [employer] infrastructure consultant had given support to friends that came to be with him; pt reports that he had instant relief and feels better since the stents were placed; pt is encouraged by this as well as amazed; pt would like to be home but agrees that tomorrow will be sufficient; pt states he is handling his admission pretty well; prayer is welcomed
--- NOTE | 2025-02-19 13:56 | EKG12_ITS ---
Test Reason : STEMI ALERT Blood Pressure : */* mmHG Vent. Rate : 75 BPM Atrial Rate : 75 BPM P-R Int : 136 ms QRS Dur : 92 ms QT Int : 426 ms P-R-T Axes : 79 89 141 degrees QTcB Int : 475 ms Normal sinus rhythm ST depression, consider subendocardial injury Nonspecific T wave abnormality Prolonged QT Abnormal ECG When compared with ECG of 01-Sep-2020 17:10, ST more depressed Anterior leads Nonspecific T wave abnormality now evident in Inferior leads T wave inversion now evident in Lateral leads Confirmed by Cristobal Meredith ([id number]), metropolitan editor CLAYTON BRITO ([id number]) on 02/20/2025 1:17:41 PM Referred By: Rodrigo Ceballos Confirmed By: Cristobal Meredith
--- NOTE | 2025-02-19 15:53 | CASEMGMT ---
Social Work SW met with pt to discuss advance directives. Pt states that he believes he has completed documents previously but does not have a copy. Pt requesting to complete documents again. SW will follow up with pt prior to discharge to complete. MADDISON Sutherland
[2025-02-19] MEDS: Carvedilol 3.125 MG TABLET PO (20:49)
[2025-02-19] MEDS: Atorvastatin Calcium 40 MG Tablet PO (20:49)
[2025-02-20] VITALS (11 sets, daily range): BP systolic 104–137; BP diastolic 59–77; PULSE 61–75; RESP 16–31; TEMP 36.2–36.6; O2SAT 97–100; BMI 18.7
--- NOTE | 2025-02-20 06:55 | PN.HOSP_ITS ---
Reason for Visit Reason for Visit: Diagnoses Malignant neoplasm of prostate (02/18/25) ST elevation (STEMI) myocardial infarction involving other sites (02/18/25) ST elevation (STEMI) myocardial infarction of unspecified site (02/18/25) Atherosclerotic heart disease of [place] coronary artery with unstable angina pectoris (02/18/25) Unspecified systolic (congestive) heart failure (02/18/25) Other ill-defined heart diseases (02/18/25) Peripheral vascular disease, unspecified (02/18/25) Chronic obstructive pulmonary disease, unspecified (02/18/25) Hemorrhage, not elsewhere classified (02/18/25) Personal history of other diseases of the respiratory system (02/18/25) Subjective Subjective Feels good. Bruising improving on RUE. Objective Data Objective Data Vital Signs: Vital Signs Temp Pulse Resp BP Pulse Ox O2 Del Method 36.2 C L 63 18 118/74 98 Room Air 02/20/25 04:00 02/20/25 06:00 02/20/25 06:00 02/20/25 06:00 02/20/25 06:00 02/20/25 06:00 Oxygen Delivery Method Room Air Weight: 56 kg Body Mass Index (BMI) 18.7 Intake & Output: Intake and Output for Last 24 Hours 02/18/25 02/19/25 02/20/25 23:59 23:59 23:59 Intake Total 120 / 120 1043.75 / 1043.75 Output Total 1625 / 1625 500 / 500 Balance -1505 / -1505 543.75 / 543.75 Lab / Micro Data 02/19/25 04:23 02/20/25 10:02 Labs: Laboratory Results - last 24 hr 02/19/25 04:23: Triglycerides 90, Cholesterol 206 H, LDL Cholesterol, Calc 142, VLDL Cholesterol 18, HDL Cholesterol 46, Cholesterol/HDL Ratio 4.45 Radiography Diagnostic Testing: Radiology Impression Echocardiogram 02/19/25 07:00 Interpretation Summary The study was technically difficult. Severe inferior septal, inferior and posterior hypokinesis. Estimated LVEF 35- 40%. Stage I diastolic dysfunction. Mild (1+) mitral valve insufficiency. Patent foramen ovale. Ordering Physician: Rodrigo Ceballos Referring Physician: Casey Melo Performed By: Bong ARORA RDCS, Karla and Student Chest X-Ray 02/19/25 08:03 IMPRESSION: A right subclavian central venous catheter with port is seen, with tip projecting over the SVC. No pleural effusion or pneumothorax is seen. Lungs appear clear of acute disease. The cardiomediastinal silhouette is within the normal range, and unchanged. Bilateral acromioclavicular joint degenerative changes and asymmetric left glenohumeral joint degenerative changes are noted. Mild thoracic spine degenerative changes are seen, with mild gentle dextroscoliosis noted. No acute osseous change is evident. Reading Location: [address] Rhythm Strip Rhythm Strip: Sinus Rhythm Rate: 65 Ectopy: PVC(s) (Short runs of nonsustained VT 4-5 beats.) Physical Exam Const alert and no apparent distress HEENT head/scalp atraumatic and moist oral mucous membranes GI normal to inspection, nondistended, normoactive bowel sounds, soft to palpation, non-tender and non-distended Extremity normal to inspection and full ROM Neuro Sensorium / Orientation: awake and alert Assessment & Plan Assessment/Plan (1) STEMI (ST elevation myocardial infarction): PLAN: s/p PCI to circumflex on 02/18 on ASA, clopidogrel, atorvastatin, carvedilol, lisinopril Per cards: 1. Will continue aspirin and Plavix uninterrupted for 1 year. This was discussed in detail with the patient. 2. Continue atorvastatin 40 mg nightly will reevaluate the patient's fasting lipids and liver functions in 6 weeks. 3. Continue carvedilol 3.125 mg twice daily Jardiance 10 mg daily, lisinopril 2.5 mg daily. 4. Will follow-up with results of the echocardiogram done this morning. 5. Patient tentatively should be able to be discharged today. 6. The patient should limit use of his right hand for 7 to 10 days. He should be able to progress back to normal activities with essentially no restrictions other than lifting for the next 6 weeks. The patient is retired. 7. The patient should follow-up in the [facility] with her advanced practitioner in 7 to 10 days and then with Dr. Meredith at 4 to 6 weeks. (2) HFrEF (heart failure with reduced ejection fraction): PLAN: EF 40% on cath. Echo EF 35-40% stage I DD. PFO. on lisinopril, carvedilol, empagliflozin (3) Ecchymosis: PLAN: stable. post cath.
[2025-02-20] MEDS: Carvedilol 3.125 MG TABLET PO (08:11)
[2025-02-20] MEDS: Aspirin E.C. 81 MG Tablet PO (08:11)
[2025-02-20] MEDS: Potassium Chloride Oral Tablet 10 MEQ PO (08:11)
--- NOTE | 2025-02-20 08:55 | PN.CARD_ITS ---
Subjective Subjective Patient reports that he is feeling fine he said that eating has been up in the hallway walking without assistance. He denies any recurrence of his anginal symptoms. Denies any lightheadedness or dizziness. Objective Data Vital Signs: Vital Signs Temp Pulse Resp BP Pulse Ox O2 Del Method 97.1 F L 64 27 H 120/69 100 Room Air 02/20/25 04:00 02/20/25 07:00 02/20/25 07:00 02/20/25 07:00 02/20/25 07:31 02/20/25 07:31 Oxygen Delivery Method Room Air Weight: 123 lb 7.342 oz Body Mass Index (BMI) 18.7 Intake & Output: Intake and Output for Last 24 Hours 02/18/25 02/19/25 02/20/25 23:59 23:59 23:59 Intake Total 120 / 120 1043.75 / 1043.75 Output Total 1625 / 1625 500 / 500 Balance -1505 / -1505 543.75 / 543.75 Lab / Micro Data Attestation: I reviewed the patient's lab results. 02/19/25 04:23 02/19/25 04:23 Rhythm Strip Rhythm Strip: Sinus Rhythm Rate: 80 Cardiology Labs/Tests Rhythm: EKG: ECHO: Stress Test: Cardiac Cath: PCI: CT Surgery: Holter monitor: EPS: PPM: CXR: Chest CT Scan: Radiography Diagnostic Testing: Radiology Impression Echocardiogram 02/19/25 07:00 Interpretation Summary The study was technically difficult. Severe inferior septal, inferior and posterior hypokinesis. Estimated LVEF 35- 40%. Stage I diastolic dysfunction. Mild (1+) mitral valve insufficiency. Patent foramen ovale. Ordering Physician: Rodrigo Ceballos Referring Physician: Casey Melo Performed By: aKrla Woody RVT, RDCS and Student Chest X-Ray 02/19/25 08:03 IMPRESSION: A right subclavian central venous catheter with port is seen, with tip projecting over the SVC. No pleural effusion or pneumothorax is seen. Lungs appear clear of acute disease. The cardiomediastinal silhouette is within the normal range, and unchanged. Bilateral acromioclavicular joint degenerative changes and asymmetric left glenohumeral joint degenerative changes are noted. Mild thoracic spine degenerative changes are seen, with mild gentle dextroscoliosis noted. No acute osseous change is evident. Reading Location: [id number] Physical Exam Const alert and oriented x3 HEENT normocephalic Eyes EOMs intact bilaterally Neck no JVD Chest inspection of chest normal Resp normal respiratory effort and clear to auscultation bilaterally Cardio Rate: regular rate Rhythm: regular rhythm Heart Sounds: S1 normal and S2 normal; Negative for click, gallop or murmur Extremity General Extremity: edema right upper extremity (Dorsum of the hand) mild Skin Skin Narrative: Ecchymosis noted in the right forearm. There is good 2+ pulse normal capillary refill and normal sensation in the right hand. Neuro Neuro Narrative: Alert and oriented x 3 Psych mental status grossly normal Assessment & Plan Assessment/Plan (1) Acute posterior myocardial infarction: PLAN: Patient status post acute posterior wall microinfarction and stenting of a dominant circumflex. His LAD had a 60% stenosis which was not felt to be significant right coronary artery was nondominant. Will continue with dual antiplatelet therapy and LV recovery medical therapy. The patient has already agreed that he is to stop smoking. Will address his lipids and blood pressure with medications as tolerated. (2) Left ventricular systolic dysfunction (LVSD): PLAN: Patient's EF was estimated 40-45% at the time of his myocardial infarction by LV gram. A 2D echocardiogram is pending from this morning. We will titrate his LV recovery medications as blood pressure and heart rate will tolerate. Echocardiogram done yesterday showed the LV ejection fraction of 35 to 40% with inferior hypokinesis. The patient also has a patent foramen ovale with normal atrial sizes. He has no previous history of a TIA. (3) COPD (chronic obstructive pulmonary disease): QUALIFIERS: COPD type: unspecified COPD Qualified Code(s): J44.9 - Chronic obstructive pulmonary disease, unspecified PLAN: Patient has guaranteed that he will stop smoking as of this admission. (4) PVD (peripheral vascular disease): PLAN: Patient recently had noninvasive evaluation of his carotids and subclavian arteries. This was done through the [facility] and his vascular surgical team. This report available February 17, 2025 I read off of his my chart his bilateral carotids were less than 50%. He has an asymptomatic right carotid bruit. Patient also had a 50-99% stenosis of his left subclavian but he denies any anginal type symptoms or subclavian steal symptoms at this time. This would be very important should he need bypass graft surgery in the future this would need to be further investigated to a access use of the RIVAS graft if needed. The patient will follow-up with his vascular team at the [facility] after discharge. PLAN: Plan 1. Will continue aspirin and Plavix uninterrupted for 1 year. This was discussed in detail with the patient. 2. Continue atorvastatin 40 mg nightly will reevaluate the patient's fasting lipids and liver functions in 6 weeks. 3. Continue carvedilol 3.125 mg twice daily Jardiance 10 mg daily, lisinopril 2.5 mg daily. 4. Will follow-up with results of the echocardiogram done this morning. 5. Patient tentatively should be able to be discharged today. 6. The patient should limit use of his right hand for 7 to 10 days. He should be able to progress back to normal activities with essentially no restrictions other than lifting for the next 6 weeks. The patient is retired. 7. The patient should follow-up in the [facility] with her advanced practitioner in 7 to 10 days and then with Dr. Meredith at 4 to 6 weeks. Charges/Coding Visit Charges Inpatient E&M: 10586 Subs Hosp L2
--- NOTE | 2025-02-20 10:00 | EKG12_ITS ---
Test Reason : AM EKG Blood Pressure : */* mmHG Vent. Rate : 60 BPM Atrial Rate : 60 BPM P-R Int : 136 ms QRS Dur : 82 ms QT Int : 488 ms P-R-T Axes : 74 257 255 degrees QTcB Int : 488 ms Normal sinus rhythm Indeterminate axis ST & T wave abnormality, consider inferolateral ischemia Prolonged QT Abnormal ECG When compared with ECG of 19-Feb-2025 05:46, No significant change was found Confirmed by Cristobal Meredith ([id number]), editor publications CINTHYA MARQUIS ([id number]) on 02/20/2025 8:35:11 AM Referred By: Rodrigo Ceballos Confirmed By: Cristobal Meredith
[2025-02-20] MEDS: Empagliflozin 10 MG Tablet PO (10:28)
[2025-02-20] MEDS: Furosemide 20 MG Tablet PO (10:28)
[2025-02-20] MEDS: Clopidogrel Bisulfate 75 MG Tablet PO (10:28)
[2025-02-20] MEDS: Allopurinol 300 MG Tablet PO (10:29)
[2025-02-20 10:41] LABS: ACT Activated Clotting Time 256 sec (74-137)
[2025-02-20 10:41] LABS: ACT Activated Clotting Time 205 sec (74-137)
[2025-02-20 10:43] LABS: Anion Gap 11 (5-15); BUN 19 mg/dL (4-19); BUN/Creat Ratio 23.2 RATIO (10-20); Calcium,Total 9.1 mg/dL (7.6-11.0); Carbon Dioxide 22.3 mmol/L (21.0-32.0); Chloride 106 mmol/L (98-108); Creatinine, Serum 0.82 mg/dL (0.70-1.20); EST Glomerular Filtration Rate 95 (>60); Glucose 119 mg/dL (70-99); Potassium 3.9 mmol/L (3.3-5.1); Sodium Level 139 mmol/L (133-145)
--- NOTE | 2025-02-20 11:15 | DS.PCM_ITS ---
Providers Date of Admission: 02/18/25 Primary Care Physician: Dr. Casey Melo MD Reason For Visit: STEMI Diagnosis Discharge Diagnosis (1) STEMI (ST elevation myocardial infarction): Status: Acute Code(s): I21.3 - ST elevation (STEMI) myocardial infarction of unspecified site Plan: s/p PCI to circumflex on 02/18 on ASA, clopidogrel, atorvastatin, carvedilol, lisinopril Per cards: 1. Will continue aspirin and Plavix uninterrupted for 1 year. This was discussed in detail with the patient. 2. Continue atorvastatin 40 mg nightly will reevaluate the patient's fasting lipids and liver functions in 6 weeks. 3. Continue carvedilol 3.125 mg twice daily Jardiance 10 mg daily, lisinopril 2.5 mg daily. 4. Will follow-up with results of the echocardiogram done this morning. 5. Patient tentatively should be able to be discharged today. 6. The patient should limit use of his right hand for 7 to 10 days. He should be able to progress back to normal activities with essentially no restrictions other than lifting for the next 6 weeks. The patient is retired. 7. The patient should follow-up in the [facility] with her advanced practitioner in 7 to 10 days and then with Dr. Meredith at 4 to 6 weeks. (2) HFrEF (heart failure with reduced ejection fraction): Status: Acute Code(s): I50.20 - Unspecified systolic (congestive) heart failure Plan: EF 40% on cath. Echo EF 35-40% stage I DD. PFO. on lisinopril, carvedilol, empagliflozin (3) Ecchymosis: Status: Acute Code(s): R58 - Hemorrhage, not elsewhere classified Plan: stable. post cath. Medications at Discharge Home Medications cilostazol 100 mg tablet 100 mg PO BID PAD 02/18/25 fluticasone furoate 200 mcg-vilanterol 25 mcg/dose inhalation powder (Breo Ellipta) 1 ea inhalation DAILY COPD 02/18/25 enzalutamide 80 mg tablet (Xtandi) 160 mg PO Q24H Prostate CA 02/19/25 aspirin 81 mg tablet,delayed release 81 mg PO BREAKFAST #0 tabs 02/20/25 atorvastatin 40 mg tablet 40 mg PO QHS #30 tabs 02/20/25 carvedilol 3.125 mg tablet 3.125 mg PO BID #60 tabs 02/20/25 clopidogrel 75 mg tablet 75 mg PO DAILY #30 tabs 02/20/25 empagliflozin 10 mg tablet (Jardiance) 10 mg PO DAILY #30 tabs 02/20/25 furosemide 20 mg tablet 20 mg PO DAILY #30 tabs 02/20/25 lisinopril 2.5 mg tablet 2.5 mg PO DAILY #30 tabs 02/20/25 potassium chloride 10 mEq tablet,extended release(part/cryst) 10 meq PO DAILYCM #30 tabs 02/20/25 Hospital Course Operations None Procedures 2-D Echocardiogram and Cardiac catheterization Summary of Care Provided Minutes Spent on Discharge: 35 Hospital Course: Patient presents with STEMI. Patient had PCI to the circumflex on the . Patient has remained stable. Patient did have an echocardiogram that showed an EF of 35 to 40%. Patient will be discharged home in stable condition with close follow-up with cardiology. Patient is a smoker. Advised quitting. Explained to him that it depends on how he does if this was just the moment where he can quit or feel require further behavioral efforts. Recommend him to have a plan where he can on a moving target basis have a plan where he gets up in the morning and does not smoke for period of time and then extend that period to the point where he has complete cessation. Weight / BMI Weight Weight: 56 kg Body Mass Index (BMI) 18.7 ABG / Lab / Microbiology Data 02/19/25 04:23 02/20/25 10:02 Laboratory: Laboratory Results - last 24 hr 02/18/25 13:23: Activated Clotting Time 205 H 02/18/25 13:45: Activated Clotting Time 256 H 02/20/25 10:02: Sodium 139, Potassium 3.9, Chloride 106, Carbon Dioxide 22.3, Anion Gap 11, BUN 19, Creatinine 0.82, Estim Creat Clear Calc 66.40, Est GFR (MDRD) Non-Af 95, BUN/Creatinine Ratio 23.2 H, Glucose 119 H, Calcium 9.1 Radiography Diagnostic Testing: Radiology Impression Echocardiogram 02/19/25 07:00 Interpretation Summary The study was technically difficult. Severe inferior septal, inferior and posterior hypokinesis. Estimated LVEF 35- 40%. Stage I diastolic dysfunction. Mild (1+) mitral valve insufficiency. Patent foramen ovale. Ordering Physician: Rodrigo Ceballos Referring Physician: Casey Melo Performed By: Karla Woody RVT, RDCS and Student D/C Instructions Discharge Diet: Low fat / Low cholesterol DC O2, CPAP, BIPAP Needs Home O2 Discharge instructions: No Meaningful Use Info Meaningful Use Meaningful Use Diagnoses (Choose all that apply): AMI AMI/Post PCI/Angioplasty Aspirin given w/in 24hrs of arrival?: Yes ASA at discharge?: Yes Antiplatelet Therapy at Discharge:: Yes Statins at discharge?: Yes Rogers/ARB at discharge?: Yes Beta Jagdish at discharge?: Yes Done w/ Acute MD measure.: Yes Documented LVEF (%): 35 Ischemic Stroke Statin Dosing Therapy Reference: STATIN DOSE THERAPY REFERENCE: * Patients > 75 years receive moderate or high dose statin therapy. * Patients 75 years or YOUNGER should receive HIGH intensity statin dose unless contraindicated. You will be required to document reason for non-treatment if statin daily dose does not meet guidelines. HIGH DOSE STATIN THERAPY DAILY Atorvastatin > than or = to 40 mg Rosuvastatin > than or = to 20 mg Amlodipine + Atorvastatin > than or = to 2.5/40 mg Ezetimibe + Simvastatin 10/80 mg Simvastatin 80mg Discharge Plan Admission Admit Date/Time: 02/18/25 15:33 Primary Reason for Your Visit: STEMI Attending Provider: Rodrigo Ceballos Primary Care Provider: Casey Melo Instructions Additional Instructions / Restrictions: Limit the use of your right hand for the next 7 to 10 days. Per cardiology, usually able to progress back to normal activities with no restrictions other than lifting weights of the right upper extremity for the next 6 weeks. Please follow-up with the [facility] nurse practitioner in 7 to 10 days and then with Dr. Meredith in 4 to 6 weeks. Discharge Orders/Prescriptions Prescriptions: New atorvastatin 40 mg Tablet 40 mg PO QHS Qty: 30 0RF clopidogrel 75 mg Tablet 75 mg PO DAILY Qty: 30 0RF aspirin 81 mg Tablet,Delayed Release (Dr/Ec) 81 mg PO BREAKFAST Qty: 0 0RF carvedilol 3.125 mg Tablet 3.125 mg PO BID Qty: 60 0RF furosemide 20 mg Tablet 20 mg PO DAILY Qty: 30 0RF lisinopril 2.5 mg Tablet 2.5 mg PO DAILY Qty: 30 0RF potassium chloride 10 mEq Tablet,Er Particles/Crystals 10 meq PO DAILYCM Qty: 30 0RF Jardiance 10 mg Tablet 10 mg PO DAILY Qty: 30 0RF Continued fluticasone furoate-vilanterol [Breo Ellipta] 200-25 mcg/dose blister with device 1 ea INHALATION DAILY cilostazol 100 mg tablet 100 mg PO BID Xtandi 80 mg tablet 160 mg PO Q24H Referrals / Follow Up: [facility] [Provider Group] - Within 1 Week Casey Melo MD [Primary Care Provider] - Within 2 Weeks Disposition Disposition (needs filled in before D/C Order can be placed): Home, Self Care Charges/Coding Visit Charges Inpatient E&M: 11528 Disch Hosp >30min
--- NOTE | 2025-02-20 11:37 | CASEMGMT ---
Addendum entered by Charles Teixeira 02/20/25 12:12: TC to [facility] who states that the pts total cost = 50$. Pt RN notifies this RN CM that Tiara (Pharmacist) wants to discuss the new medications with the pt. P tech notified during the TC. Pt RN also states to this RN CM that transport has been established for 1430 as this was the only time available today. [facility] notified to deliver the medications SUPA. [facility] states that they are currently working on getting the medications ready for delivery. RN CM to pt room at this time. Pt agreeable to the cost and plan and states that he has a payment method via card. Pt states that he still feels safe returning home today and denies further needs or concerns. Pt RN updated. Original Note: Pt has an order for DC placed. TC to [facility] who states that they have not totalled the pts rx costs yet. [facility] states that they can do meds to bed. [facility] reports that this RN CM can call back in 15-20 for final Rx costs. Pt's RN notified and plans to set up transportation through the [facility] Van once appropriate.
--- NOTE | 2025-02-20 12:56 | CASEMGMT ---
Brief Social Work note Advanced Directives Sw informed that patient has expressed desire to complete advanced directives. Sw presented to bedside, introduced self to patient and explained role. Sw completed Advanced Directive forms with patient. Sw made copies and placed in patient's chart, and provdied patient with copy for himself and his daughter, whom he has identified as his first agent. NO other needs or concerns at this time. Camilo Field, PRACTICAL NURSING FACULTY, APPAREL FASHION DESIGNER
--- NOTE | 2025-04-21 09:45 | CL.I_ITS ---
Patient Name: AMIE KILLIAN Study Date: 02/18/2025 Performing: Rodrigo Ceballos MD Ht: 68 inches 172.72 cm : 1955 Wt: 129 lbs 58.42 kg Age: 69 Gender: male BSA: 1.7 PROCEDURE(S) PERFORMED [id number]-([id number])AMI, BMS AND/OR PTCA ARTERY OR GRAFT SINGLE VESSEL [id number]-([id number])LHC/COR/LV CLINICAL PROFILE AND CO-MORBIDITIES Indications: ACS <= 24 hrs Heart Failure: None Angina Classification Anginal Classification w/in 2 Weeks: CCS IV CAD Presentations: STEMI. Symptom onset Date/Time: 02/18/2025 Time Not Available CONCLUSIONS 99% Prox LCX (dominant); 70% OM1 60-65% Prox LAD 70% non-dominant RCA LVEF 40% Successful JOHANNE Prox LCX using Inez Lawrence 3.0x8 mm, post-dilated using 3.25 mm balloon RECOMMENDATIONS ASA Indefinitley P2Y12 inhibitors for atleast 6 months DESCRIPTION OF PROCEDURE The patient arrived to the procedure lab. The risks and benefits of the procedure as well as a full description of our services here and lack of surgical backup were fully explained to the patient and/or their significant other prior to the catheterization. The Timeout was completed, verifying the correct patient and procedure. The patient's procedural site was prepped and draped in the usual fashion. Local anesthetic was given subcutaneously to right radial region with Lidocaine 2%. Using a modified Seldinger technique, arterial access was obtained via the right radial artery, a 6Fr sheath was inserted.. Right Coronary Artery selective angiography was then performed in multiple views using a 5 Fr. JR 4 catheter. Left Ventriculography was performed in WELLS projection using a 5 Fr. Pigtail catheter. LV to AO pullback pressures were then recorded XB 3.0 Guide catheter was inserted and engaged into the LCA. Lawrence Mason 3.0x8 Drug Eluting stent was inserted. Angiogram performed post balloon dilatation. NC Emerge 3.25x8 Balloon catheter was inserted. Angiogram performed post balloon dilatation. The arterial sheath was pulled and a TR Band was applied for hemostasis w/ 10ml air CORONARY ANGIOGRAPHY DOMINANCE: Left Dominant LEFT HEART ASSESSMENT Left Ventricular Ejection Fraction: by LV Gram 40 % LVEDP: 34 mmHg LEFT MAIN: Luminal Irregularities 20% Ostial lesion in Left Main LEFT ANTERIOR DESCENDING ARTERY: LAD: Tubular Calcified 65% Proximal lesion in LAD Tubular 50% Mid lesion in LAD Tubular 50% Proximal lesion in LAD OM 1: Tubular 70% Proximal lesion in MARG1 OM 2: Tubular 70% Proximal lesion in MARG1 RIGHT CORONARY ARTERY: RCA: Tubular 70% Mid lesion in RCA INTERVENTION INFORMATION LESION SITE: Circumflex (Proximal) Lesion Complexity: High/C, thrombus present: Yes, lesion length: 6 mm, culprit lesion: Yes Pre Stenosis: 99 % Pre intervention TIFF flow: 3 PROCEDURE: Drug Eluting Stent with post dilatation Post Stenosis: 0 % Post intervention TIFF flow: 3 Lesion Devices: Cordis 6 Fr XB3.0 100cm Guide Catheter Terumo .014 180cm Runthrough Extra Floppy straight Andrea Sci NC EMERGE MR 3.25x08 BALLOON Medtronic 3.0 x 08 INEZ FRONTIER JOHANNE COMPLICATIONS No Complications PROCEDURE MEDICATIONS Versed 1 mg IV Fentanyl 50 mcg IV Oxygen: 2 L/min via nasal cannula Brilinta 180 mg PO @ 02/18/2025 14:23:11 Heparin 2000 unit(s) IV 02/18/2025 14:24:00 Heparin 2000 unit(s) IV 02/18/2025 14:24:00 Heparin 1000 unit(s) IV 02/18/2025 14:51:26 Lasix 40 mg IV 02/18/2025 14:51:43 Nitro 100 mcg IC 02/18/2025 14:28:13 Verapamil 2.5mg, Ntg 200mcgs, given IA 02/18/2025 14:19:17 IV Bolus: .9 NaCl 500 ml total 02/18/2025 14:53:12 SUMMARY OF HEMODYNAMIC DATA Time AIR REST ECG 14:13:27 AO 151/72 (105) SA 14:20:42 AO 121/57 (79) 14:23:36 AO 123/69 (86) 14:29:35 AO 138/71 (94) 14:31:28 AO 149/67 (98) 14:35:21 LV 158/4, 35 14:39:16 LV 154/5, 34 14:39:25 LV 142/33, 37 14:40:39 LV 132/31, 36 14:40:47 LVp 132/29, 36 14:40:51 AOp 135/69 (97) 14:40:58 Signed By Rodrigo Ceballos MD On 02/18/2025 15:20:13 Rodrigo Ceballos MD
== END 2025-02-20 14:30 | disposition home or self-care (01) | DRG 322 ==
LOC: ED 14:07 → ICU 16:28
PROVIDERS: Hospitalist; Admitting Provider Internal Medicine Cardiovascular Disease; Emergency Provider Emergency Medicine; PCP Family Medicine; Referring Provider Internal Medicine Cardiovascular Disease; Visit Provider Internal Medicine Cardiovascular Disease
DX: I21.21 ST elevation (STEMI) myocardial infarction involving left circumflex coronary artery (principal); C79.51 Secondary malignant neoplasm of bone; I50.20 Unspecified systolic (congestive) heart failure; I47.20 Ventricular tachycardia, unspecified; Q21.12 Patent foramen ovale; J44.9 Chronic obstructive pulmonary disease, unspecified; I73.9 Peripheral vascular disease, unspecified; I34.0 Nonrheumatic mitral (valve) insufficiency; C61 Malignant neoplasm of prostate; R58 Hemorrhage, not elsewhere classified; I25.10 Atherosclerotic heart disease of native coronary artery without angina pectoris; I25.5 Ischemic cardiomyopathy; F10.90 Alcohol use, unspecified, uncomplicated; M47.9 Spondylosis, unspecified; I25.84 Coronary atherosclerosis due to calcified coronary lesion; Z79.02 Long term (current) use of antithrombotics/antiplatelets; Z79.51 Long term (current) use of inhaled steroids; Z87.891 Personal history of nicotine dependence; Z92.3 Personal history of irradiation; M85.80 Other specified disorders of bone density and structure, unspecified site; Z79.899 Other long term (current) drug therapy; Z79.891 Long term (current) use of opiate analgesic; Z90.79 Acquired absence of other genital organ(s)
CPT/HCPCS: 36415; 71045; 80048; 80053; 80061; 83036; 84443; 84484; 85025; 85027; 85347; 92941; 93005; 93306; 93458; 94762; 99152; 99285; 99406; Q9957; Q9967; C1725; C1769; C1874; C1887; C1894; C8929; C9606; J1938

== ENCOUNTER → 2025-03-12 | Outpatient (CLI) | payer MEDICARE, SELFPAY ==
--- NOTE | 2025-03-12 14:05 | PCM.CR.HP2 ---
CR - History & Physical General Arrival date:: 03/12/25 Arrival time:: 14:05 Date of Referral:: 02/20/25 Date of CR Evaluation:: 03/12/25 Referring Physician: Dr. Ceballos Primary Diagnosis: PCI w/stenting History of Present Cardiac Event Onset Date PTCA or coronary stenting:: Yes (onset02/18/2025) Medications Ambulatory Orders ?Medication ?Instructions ?Recorded cilostazol 100 mg tablet 100 mg PO BID PAD 02/18/25 fluticasone furoate 200 1 ea inhalation DAILY COPD 02/18/25 mcg-vilanterol 25 mcg/dose inhalation powder (Breo Ellipta) enzalutamide 80 mg tablet (Xtandi) 160 mg PO Q24H Prostate CA 02/19/25 aspirin 81 mg tablet,delayed 81 mg PO BREAKFAST #0 tabs 02/20/25 release atorvastatin 40 mg tablet 40 mg PO QHS #30 tabs 02/27/25 carvedilol 3.125 mg tablet 3.125 mg PO BID #60 tabs 02/27/25 clopidogrel 75 mg tablet 75 mg PO DAILY #30 tabs 02/27/25 empagliflozin 10 mg tablet 10 mg PO DAILY #30 tabs 02/27/25 (Jardiance) furosemide 20 mg tablet 20 mg PO DAILY PRN edema #30 tabs 02/27/25 lisinopril 2.5 mg tablet 2.5 mg PO QDAY #30 tabs 02/27/25 potassium chloride 10 mEq 10 meq PO .PRN PRN With Lasix #30 02/27/25 tablet,extended release(part/cryst) tabs Allergies Allergies No Known Allergies Allergy (Verified 02/27/25 10:38) Sleep Disorder Evaluation Hx of Sleep Apnea: No Do you snore loudly (louder than talking or can be heard through closed doors)?: No Do you often feel tired/ fatigued/ sleepy during daytime?: No Has anyone observed you stop breathing during sleep?: No History of Hypertension (for STOP score): No STOP Results: Negative Advanced Directives Advanced Directives Do you have a Healthcare Power of Qa Automation Developer?: Yes Living Will: Yes Advance Directives Information Provided: No Advance Directives on File: No DNR Order?:: No Past Medical History Covid-19 Screening Physicial Symptoms Other Clinical Concerns Exposure Risk Pertinent Comorbidities Has a serious heart condition:: Yes Past Medical Illness Medical History (Reviewed 02/27/25 @ 10:37 by Sara Ward PRIMARY SPECIAL EDUCATION TEACHER, PRIMARY SPECIAL EDUCATION TEACHER-C) Burkitts lymphoma Epigastric pain Osteopenia Hepatitis C virus infection Osteopenia due to cancer therapy Rising PSA following treatment for malignant neoplasm of prostate Regional lymph node metastasis present Prostate cancer Fistula COPD (chronic obstructive pulmonary disease) Hemorrhoids Past Surgical History Surgical History (Reviewed 02/27/25 @ 10:37 by Sara Ward PRIMARY SPECIAL EDUCATION TEACHER, PRIMARY SPECIAL EDUCATION TEACHER-C) Stented coronary artery (02/18/25) History of tonsillectomy History of appendectomy History of prostatectomy Surgical History: appendectomy, tonsillectomy and - (Prostatectomy.) Family History Summary Family History (Reviewed 02/27/25 @ 10:37 by Sara Ward PRIMARY SPECIAL EDUCATION TEACHER, PRIMARY SPECIAL EDUCATION TEACHER-C) Father CVA (cerebral vascular accident) Heart disease Mother CVA (cerebral vascular accident) Grandfather Heart disease Grandmother Heart disease Social History Smoking History Smoking Status: Current every day smoker Years Smokin Packs Smoked per Day: 1 (down to 2 cigarettes a day) Alcohol Use Alcohol Usage: No Substance Abuse Hx Substance Use: No Occupation Occupation (List type of work in comments):: Retired Social Environment Status Marital Status: Current Living Arrangements Living Environment:: Family Children How many children do you have?: 2 Do any of your children live nearby?: No Safety Do you feel safe in your surroundings?: Yes Assistance Do you need any assistance at home?: no Review of Systems Review of Systems Hints Review of Present Symptoms: Reports Shortness of Breath with Exertion, PVD, Dizziness/Lightheadedness, Fatigue, Appetite - Special Diet and Sleep - Normal; Denies Shortness of Breath at Rest, Operative Discomfort, Angina, Wound Healing, Heart Arrhythmia/Irregularities, Appetite - Normal or Sexual Changes Pain Is Patient Pain Free?: Yes Risk Factor Assessment Chief Complaint Chief Complaint: PCI w/stenting Vital Signs Pulse Ox: 97 Blood Pressure: 120/60 Pulse Pulse Rate: 71 Hypertension Blood Pressure Sitting - Right Arm: 120/60 Stress Stress: Home/Family Diabetes Nutrition Referral for Diabetes: No Obesity Height: 5 ft 8 in Weight:: 121 lb Weight in Pounds: 121.0 lbs Body Mass Index (BMI): 18.3 Physical Inactivity Physical Inactivity: Reg Exercise 30 min/day Risk Stratification Risk Guidelines: Lowest Risk: Risk Factor for Obesity, Moderate Risk: Risk Factor for Dyslipidemia, Risk Factor for Diabetes, Risk Factor for Hypertension, Risk Factor for Sedentary Lifestyle and Risk Factor for Depression and Highest Risk: Risk Factor for Smoking For Smoking Smoking Risk Guidelines For Dyslipidemia Dyslipidemia Risk Guidelines For Diabetes Mellitus Diabetes Risk Guidelines For Obesity/Overweight Obesity/Overweight Risk Guidelines For Hypertension Hypertension Risk Guidelines For Sedentary Lifestyle Sedentary Lifestyle Risk Guidelines For Depression Depression Risk Guidelines Family History Family History Father CVA (cerebral vascular accident) Heart disease Mother CVA (cerebral vascular accident) Grandfather Heart disease Grandmother Heart disease Motivation Motivation to Participate On a scale of 1 to 10, how prepared are you to commit to attending program?: 9 What do you see as barriers to successfully being able to complete the program?: nothing What do you see as the benefits of succesfully completing the program? In other words, what do you hope to get out of participating in the program?: more energy Are there issues you are dealing with that will interfere with completing the program?: no Do you have a spouse or signficant other, family or friends who will help support you to complete the program?: yes
--- NOTE | 2025-03-12 14:13 | CR.ITP_ITS ---
Diagnosis General Information Admitting Diagnosis: PCI w/stenting Personal Learning Style:: Audio/Visual Barriers to Learning: No Barriers Stage of change r/t lifestyle modifications:: Contemplation Gave educational material for:: Treating Heart Disease, How The Heart Works, What it means to have Heart Disease, How Coronary Artery Disease is Diagnosed, Heart Procedures, What Heart Medications Do, Risk Factors & Modifications, Living an Active Life, Nutrition, Emotions & Heart Disease, Stress Management & Relaxation and Sleep Disorders & Heart Disease Education/Goals Cardiac Rehabilitation Goals Personal Goals: Initial Assessment: Improve management of stress and emotions, Improve energy level and Improve muscle strength and endurance Scale for measuring improvement of personal goals Diagnosis & Disease Process Outcomes/Goals: Pt IDs own risk factors & lifestyle modifications by Session 10, Verbalizes symptoms of angina & response by session 3., Pt independently manages and Other Additional Outcomes/Goals: Plan/Interventions: Assist Pt to ID & engage in lifestyle modification to reduce CVD risk, Instruct on individual risk factors, Review symptoms of angina & emergency actions, Review secondary diagnosis & identify educational needs. and Other see comment 30 day Reassessments:: Not Met 30 day Reassessments:: Not Met 30 day Reassessments:: Not Met 30 day Reassessments:: Not Met Final Reassessments:: Not Met Safety Referral to Physical Therapy: No Referral to [facility] Case Management: No Fall Risk Assessed:: Yes Assistive Devices:: None Exercise - Initial Assessment Visit Date of Eval: 03/12/25 (initial eval) Mets: Pre-: >3 METS for 30 minutes by discharge, >5 METS for 30 minutes by discharge, >7 METS for 30 minutes by discharge and Unable to meet goal due to: (see comment below) Physician Prescribed Exercise Modalities: Treadmill, Rower, Schwinn Airdyne AD-7, SciFit Stepper, SciFit Pro- II Ergometer and SciFit Lateral Freelance Patternmaker Frequency: 3x/week for 12 weeks [36 sessions] Intensity: 60-80% of age predicted maximum heart rate reserve Duration: 30 - 45 minutes Current METSs:: 3 Target Heart Rate:: 90-113 Resting Blood Pressure: 120/60 EKG Type: NSR ST and T wave abnormality Outcomes & Goals Goals:: Verbalizes understanding of THR, RPE & goal METS by session 6, Documents in home exercise log/reports 30 min aerobic 5 day/wk by DC, Demonstrates accurate pulse taking by DC and Other additional outcome/goals: see below Intervention & Plan Exercise Program Goals: Instruct on personal THR & RPE, Instruct on MET level & personal MET goal, Show patient to take own pulse /validate performance until accurate, Instruct on home exercise and Other additional plan/int Physical Activity Home Exercise Physical Activity - Home Exercise: Safe Exercise, Warm-up, Self-monitoring, Cool-Down, Home Exercise > 30 min Daily and Sitting Time <3 hours/daily Outcomes & Goals Outcomes/Goals: Demonstrates correct Warm-up/exercise Cool-Down (S3) if = 2.5 METs, Verbalizes symptoms of exercise intolerance by Session 3 (S3), Demonstrate safe equipment use (S3) & follows exercise prescrition (6) and Other: See below Intervention & Plan Plan/Intervention: Instruct warm-up & cool-down if exercising at > 2 METs, Instruct on symptoms of exercise intolerance & actions to take, Instruct & monitor on saf, Assess intial functional capacity & safety risk and Other See below Nutrition - Initial Assessment Program Goals Nutrition Program Goals Patient has diagnosis of Hyperlipidemia (ICD E78)?: No Visit Date of Eval: 03/12/25 Cholesterol/Lipids (Other Core Measures) Determine presence & major risk factors that modify LDL goal: Cigarette smoking, Hypertension or hypertensive medication, Low HDL cholesterol <40 mg/dL*, Family history of premature CHD in Male < 55 years: female <65 yearsFa and Age men > 45 years; women >/= 55 years Outcomes/Goals: Pt IDs own risk factors & lifestyle modifications by Session 10, Verbalizes symptoms of angina & response by session 3., Pt independently manages and Other Additional Outcomes/Goals: Intervention/Plan: Advocate for lipid panel cholesterol medication if applicable, Instruct on personal lipid levels & lipid goals/NCEP guidelines, Instruct on cholesterol and Other additional plan/int Referral to dietitian:: No Diabetes (Other Core Measures) Diabetes Type: Not Applicable Weight Mgt (Other Care) Height: 5 ft 8 in Weight:: 121 lb BMI: 18.3 Diagnosis Overweight/Obesity BMI> 30% ICD-10 E66: No Diagnosis High BMI/Morbid Obesity BMI> 35% ICD-10 Z68: No Outcomes/Goals: Pt sets, maintains & shows weight loss goal & trend during rehab and Other additional outcomes/goals Intervention/Plan: Instruct on ideal BMI & set weight loss goal w/patient, Assist pt to ID & incorporate diet changes for weight loss by S9, Refer to Structured Weight Loss program as appropriate, Encourage goal of using 250- 300dcal per session for weight loss and Other additional plan/interventions Healthy Eating Habits Will attend diet classes:: Yes Outcomes/Goals:: Consume diet rich in vegs,fruits,whole grain/high fiber,fish,lean meat, Limit sat/trans fats,cholesterol & added salts & sugars and Other additional outcome/goals: Intervention/Plan:: Assess current eating habits and Other Additional plan/interventions Education Gave educational materials for:: Signs & symptoms of hypoglycemia, Signs & symptoms of hyperglycemia, Relate diabetes to coronary artery disease and Healthy eating Core - Initial Assessment Visit Date of Eval: 03/12/25 (initial eval ) Medication Compliance Preventative Medication(s):: Aspirin, PRISCILLA inhibitor, Clopidogrel/P2Y12 inhibit and Beta ely H/O mental health issues: depression, anxiety, or addiction?: No Doesn?t believe in the benefits of treatment?: No Believes medications are unnecessary or harmful?: No Has a concern about medication side effects?: No Expresses concern over the cost of medications?: No Outcomes/Goals: Verbalizes medications,desired effect & common side effects @ DC, Pt self-reports following medication regimen, Keeps card in wallet w/medications listed by DC and Other additional outcome/goals: Interventions/plans: Instruct on medication effects & side effects, Review medication list w/patient every two weeks, Instruct importance of taking meds as ordered & assist problem solving and Other additional Tobacco Use Tobacco Use: Cigarettes How many cigarettes do you smoke per day?: 2 Years Smokin Outcomes/Goals: Smoking cessation achieved or maintained by discharge, Identify aids/strategies for achieving smoking cessation by session 6 and Other additional outcome/goals Interventions/plan: Instruct on effects of smoking & provide smoking cessation resource, Assist pt to set quit date & provide encouragement, Assist pt to develop strategies to achieve/maintain quit date, Assist pt w/nicotine replacement & medication for cessation success and Other additional plan/interventions Hypertension Resting Blood Pressure:: 120/60 [place] [employer] Hypertension Guidelines Outcomes/Goals: Able to verbalize/achieve optimal blood pressure <130/80, Incorporates diet changes & exercise for blood pressure control by DC and Other additional outcomes/goals Interventions/plan: Instruct on optimal blood pressure, hypertension & medications, Instruct on effects of sodium, alcohol, stress, exercise &hypertension and Other additional plan/interventions Tobacco Cessation Referral Smoking Cessation Referral:: No (Pt declines at this time. Pt is down to 2 cigarettes a day from 20.) Education Schedule Given:: Yes Psychosocial - Initial Assess VIsit Date of Eval: 03/12/25 (initial eval) History of previous Mental disease:: No Target Goals Target Goals Psychosocial Test Tool Used:: PHQ-9 Questionnaire phq-9 Severity See PHQ-9 Score: 2 Referral to Behavioral Health PS - Interventions: Yes: Attend Stress Management Classes Outcomes/Goals: See list Psychosocial Outcomes/Goals:: ID's personal stressors & 2 strategies to manage stress by discharge and Other Additional outcome/goals: Intervention/Plan: See List Interventions/Plan:: Assess stressors,coping strategies & signs of derpression on admission, Instruct/assist pt to develop coping & personal stress Mgt strategies, Refer to Behavioral Health if appropriate, Refer to Physician if appropriate, Instruct patient to recognize signs & symptoms of depression, Instruct patient to recog and Other additional plan/intervention Patient Health Questionnaire PHQ-9 Screening Initial Assessment: 1. Little interest or pleasure in doing things: Not at all 2. Feeling down, depressed, or hopeless: Not at all 3. Trouble falling or staying asleep, or sleeping too much: Not at all 4. Feeling tired or having little energy: Several days 5. Poor appetite or overeating: Several days 6. Feeling bad about yourself -- or that you are a failure or have let yourself or your family down: Not at all 7. Trouble concentrating on things, such as reading the newspaper or watching television: Not at all 8. Moving or speaking so slowly that other people could have noticed. Or the opposite - being so fidgety or restless that you have been moving around a lot more than usual: Not at all 9. Thoughts that you would be better off , or of hurting yourself in some way: Not at all How difficult have these problems made it for you to do your work, take care of things at home, or get along with other people?: Not difficult at all Total Score: 2 MAHAD-Q SV Test Statements CAD is a disease of the arteries in the heart: False Examples of risk factors for heart disease: True Angina is chest pain or discomfort: I Don't Know The benefits of resistance training include: True Eating more meat and dairy products: False Anti-platelet medications such as aspirin are important: True The only effective way to manage stress: False An exercise warm-up slowly increases heart rate: I Don't Know Prepared, processed foods usually have high sodium: True Depression is common after a heart attack: I Don't Know The statin medications lower cholesterol: I Don't Know To control blood pressure, lower the amount of sodium: True If someone gets chest discomfort during walking: False Transfats are partially hydrogenated vegetable oils: I Don't Know Sleep apnea that is not treated increases the risk: I Don't Know To control cholesterol, one should become a vegetarian: I Don't Know Someone knows if he/she is exercising at the right level: I Don't Know Diabetes cannot be prevented with exercise & health eating: I Don't Know Stress is a large risk for heart attack: True A diet that can help lower blood pressure is rich in: True Total Score Total Correct Responses: 11 Self-Efficacy 6-Item Scale Initial Assessment: We would like to know how confident you are in doing certain activities. Please select your confidence level for: Fatigue Select Number: 7 Physical Discomfort or Pain Select Number: 7 Emotional Distress Select Number: 7 Other Symptoms or Health Problems Select Number: 7 Different Tasks and Activities Select Number: 7 Medication Select Number: 7 Total Score:: 7 Nutrition Survey Nutrition Survey Instructions Scoring Instructions Nutrition Survey Initial: Have you lost >10 lbs over the past 2 months without trying?: No Are you following a special diet at home for diabetes, low fat, or low salt?: No Are you interested in meeting with a dietitian for help understanding your diet?: No Do you eat less than 3 meals a day?: Yes Do you eat fatty meats (vera, sausage, ribs, etc), fried foods, desserts, large amounts of salad dressings, margarine, butter, or cheese most days?: Yes Do you have food allergies? [Enter types in comment field]: No Do you eat in restaurants more than 3 times a week?: No Do you season food with salt, seasoning salt, or garlic salt?: Yes Do you used canned, boxed, frozen meals, or soups, seasoning packets?: Yes Total Score:: 4 Exercise - 30-day Assessment Physician Prescribed Exercise Modalities: Treadmill, Rower, Schwinn Airdyne AD-7, SciFit Stepper, SciFit Pro- II Ergometer and SciFit Lateral Freelance Patternmaker Exercise - 60-day Assessment Physician Prescribed Exercise Modalities: Treadmill, Rower, Schwinn Airdyne AD-7, SciFit Stepper, SciFit Pro- II Ergometer and SciFit Lateral Freelance Patternmaker Exercise - 90-day Assessment Physician Prescribed Exercise Modalities: Treadmill, Rower, Schwinn Airdyne AD-7, SciFit Stepper, SciFit Pro- II Ergometer and SciFit Lateral Freelance Patternmaker Exercise - Final/Discharge Physician Prescribed Exercise Modalities: Treadmill, Rower, Schwinn Airdyne AD-7, SciFit Stepper, SciFit Pro- II Ergometer and SciFit Lateral Freelance Patternmaker Frequency: 3x/week for 12 weeks [36 sessions] Intensity: 60-80% of age predicted maximum heart rate reserve Current METSs:: 3 Target Heart Rate:: 90-113 Nutrition - 30-Day Assessment Weight Mgt (Other Care) Height: 5 ft 8 in Weight:: 121 lb BMI: 18.3 Nutrition - 60-Day Assessment Weight Mgt (Other Care) Height: 5 ft 8 in Weight:: 121 lb BMI: 18.3 Core - 30-Day Assessment Tobacco Use Years Smokin Core - Final Assessment Hypertension Resting Blood Pressure:: 120/60 [place] [employer] Hypertension Guidelines Core - 60-Day Assessment Hypertension Resting Blood Pressure:: 120/60 [place] [employer] Hypertension Guidelines Psychosocial - 30-Day Assess Target Goals Target Goals Referral to Behavioral Health PS - Interventions: Yes: Attend Stress Management Classes Psychosocial - 60-Day Assess Target Goals Target Goals Referral to Behavioral Health PS - Interventions: Yes: Attend Stress Management Classes Psychosocial - 90-Day Assess Target Goals Target Goals Referral to Behavioral Health PS - Interventions: Yes: Attend Stress Management Classes Psychosocial - Final Assessmen Target Goals Target Goals Psychosocial Test phq-9 Severity See PHQ-9 Score: 2 Referral to Behavioral Health PS - Interventions: Yes: Attend Stress Management Classes Nutrition - 90-Day Assessment Weight Mgt (Other Care) Height: 5 ft 8 in Weight:: 121 lb BMI: 18.3 Nutrition - Final Assessment Program Goals Patient has diagnosis of Hyperlipidemia (ICD E78)?: No Weight Mgt (Other Care) Height: 5 ft 8 in Weight:: 121 lb BMI: 18.3
[2025-03-12 14:37] VITALS: BP 120/60; PULSE 71; O2SAT 97
[2025-03-12 15:18] VITALS: BP 120/60; BMI 18.3
[2025-03-12 15:19] VITALS: BMI 18.3
== END | disposition home or self-care (01) ==
PROVIDERS: PCP Family Medicine; Referring Provider Internal Medicine Cardiovascular Disease; Visit Provider Internal Medicine Cardiovascular Disease
DX: Z00.00 Encounter for general adult medical examination without abnormal findings (principal)

== ENCOUNTER → 2025-03-20 | Outpatient (CLI) | payer MEDICARE, SELFPAY ==
[2025-03-12 15:18] VITALS: BMI 18.3
--- NOTE | 2025-03-20 13:54 | ECHOL_ITS ---
Reason For Study Reason For Study: HFrEF Procedure This was a limited 2D transthoracic echocardiogram. The study was technically difficult. Due to suboptimal imaging windows with respiratory interference. Exam performed in department. Left Ventricle Normal size and thickness. The LV ejection fraction is 65 %. Right Ventricle Normal right ventricle. Atria The left and right atria are normal. Mitral Valve Normal mitral valve. Tricuspid Valve Normal tricuspid valve. Aortic Valve Normal aortic valve. The aortic valve is not well visualized in the short axis view. Pulmonic Valve The pulmonic valve is not well visualized. Great Vessels The aortic root is not well visualized. Pericardium/Pleural No pericardial effusion. MMode/2D Measurements & Calculations LVIDd: 3.8 cm IVSd: 0.93 cm LAV(MOD-sp4): 17.4 ml LVIDs: 2.6 cm LVPWd: 0.90 cm RVDd: 2.7 cm FS: 31.4 % LVAd ap4: 21.0 cm2 SV(MOD-sp4): 34.5 ml SV(sp4-el): 35.9 ml LVLd ap4: 7.8 cm SI(MOD-sp4): 20.8 ml/m2 EDV(MOD-sp4): 47.2 ml EDV(sp4-el): 48.4 ml LVAs ap4: 9.8 cm2 LVLs ap4: 6.5 cm ESV(MOD-sp4): 12.6 ml ESV(sp4-el): 12.5 ml EF(MOD-sp4): 73.2 % EF(sp4-el): 74.2 % LA A4 area: 8.3 cm2 RA A4 area: 8.1 cm2 ECHO/Echo, Limited Study Interpretation Summary The LV ejection fraction is 65 %. Ordering Physician: Sara Ward Referring Physician: Casey Melo Performed By: Karla Woody RDCS, RVT
== END | disposition home or self-care (01) ==
LOC: CVS 13:48
PROVIDERS: PCP Family Medicine; Referring Provider Nurse Practitioner Gerontology; Visit Provider Nurse Practitioner Gerontology
DX: R06.09 Other forms of dyspnea (principal); I50.20 Unspecified systolic (congestive) heart failure
CPT/HCPCS: 93308

== ENCOUNTER 2025-04-07 13:00 | Outpatient (RCR) | payer MEDICARE, SELFPAY ==
[2025-03-12 15:18] VITALS: BMI 18.3
--- NOTE | 2025-04-10 12:03 | PCM.CR.ITP ---
Exercise - Initial Assessment Visit Session #:: 6 Physician Prescribed Exercise Modalities: Treadmill, Schwinn Airdyne AD-7 and SciFit Stepper Nutrition - Initial Assessment Weight Mgt (Other Care) Height: 5 ft 8 in Weight:: 120 lb BMI: 18.2 Core - Initial Assessment Tobacco Use Years Smokin Psychosocial - Initial Assess Target Goals Target Goals Referral to Behavioral Health PS - Interventions: Yes: Attend Stress Management Classes Patient Health Questionnaire PHQ-9 Screening 30-Day Re-eval Assessment: 1. Little interest or pleasure in doing things: Not at all 2. Feeling down, depressed, or hopeless: Not at all 3. Trouble falling or staying asleep, or sleeping too much: Not at all 4. Feeling tired or having little energy: Several days 5. Poor appetite or overeating: Several days 6. Feeling bad about yourself -- or that you are a failure or have let yourself or your family down: Not at all 7. Trouble concentrating on things, such as reading the newspaper or watching television: Not at all 8. Moving or speaking so slowly that other people could have noticed. Or the opposite - being so fidgety or restless that you have been moving around a lot more than usual: Not at all 9. Thoughts that you would be better off , or of hurting yourself in some way: Not at all How difficult have these problems made it for you to do your work, take care of things at home, or get along with other people?: Not difficult at all Total Score: 2 Self-Efficacy 6-Item Scale 30-Day Re-eval Assessment: We would like to know how confident you are in doing certain activities. Please select your confidence level for: Fatigue Select Number: 7 Physical Discomfort or Pain Select Number: 7 Emotional Distress Select Number: 7 Other Symptoms or Health Problems Select Number: 7 Different Tasks and Activities Select Number: 7 Medication Select Number: 7 Total Score:: 7 Nutrition Survey Nutrition Survey Instructions Scoring Instructions Exercise - 30-day Assessment Visit Date of Eval: 04/10/25 Session #:: 6 Physician Prescribed Exercise Modalities: Treadmill, Schwinn Airdyne AD-7 and SciFit Stepper Frequency: 3x/week for 12 weeks [36 sessions] Intensity: 60-80% of age predicted maximum heart rate reserve Duration: 30 - 45 minutes Current METSs:: 4.9 Target Heart Rate:: 90-113 Current RPE:: 11-14 Maximum Excercise HR:: 81 Resting Blood Pressure: 134/62 Maximum Exercise Blood Pressure: 140/76 EKG Type: NSR w/ rare PVC's and PAC's Outcomes & Goals Goals:: Verbalizes understanding of THR, RPE & goal METS by session 6, Documents in home exercise log/reports 30 min aerobic 5 day/wk by DC, Demonstrates accurate pulse taking by DC and Other additional outcome/goals: see below Intervention & Plan Exercise Program Goals: Instruct on personal THR & RPE, Instruct on MET level & personal MET goal, Show patient to take own pulse /validate performance until accurate, Instruct on home exercise and Other additional plan/int Physical Activity Home Exercise Physical Activity - Home Exercise: Safe Exercise, Warm-up, Self-monitoring, Cool-Down, Home Exercise > 30 min Daily and Sitting Time <3 hours/daily Outcomes & Goals Outcomes/Goals: Demonstrates correct Warm-up/exercise Cool-Down (S3) if = 2.5 METs, Verbalizes symptoms of exercise intolerance by Session 3 (S3), Demonstrate safe equipment use (S3) & follows exercise prescrition (6) and Other: See below Intervention & Plan Plan/Intervention: Instruct warm-up & cool-down if exercising at > 2 METs, Instruct on symptoms of exercise intolerance & actions to take, Instruct & monitor on saf, Assess intial functional capacity & safety risk and Other See below 30-day Reassessments 30 day Reassessments:: Progressing Reassessment Notes & Comments:: RPE explained to pt. Pt demonstrates understanding in his daily sessions. Exercise - 60-day Assessment Physician Prescribed Exercise Modalities: Treadmill, Schwinn Airdyne AD-7 and SciFit Stepper Exercise - 90-day Assessment Physician Prescribed Exercise Modalities: Treadmill, Schwinn Airdyne AD-7 and SciFit Stepper Exercise - Final/Discharge Physician Prescribed Exercise Modalities: Treadmill, Schwinn Airdyne AD-7 and SciFit Stepper Nutrition - 30-Day Assessment Program Goals Nutrition Program Goals Patient has diagnosis of Hyperlipidemia (ICD E78)?: No Visit Date of Eval: 04/10/25 Session #:: 6 Cholesterol/Lipids (Other Core Measures) Determine presence & major risk factors that modify LDL goal: Cigarette smoking, Hypertension or hypertensive medication, Low HDL cholesterol <40 mg/dL*, Family history of premature CHD in Male < 55 years: female <65 yearsFa and Age men > 45 years; women >/= 55 years Outcomes/Goals: Pt IDs own risk factors & lifestyle modifications by Session 10, Verbalizes symptoms of angina & response by session 3., Pt independently manages and Other Additional Outcomes/Goals: Intervention/Plan: Advocate for lipid panel cholesterol medication if applicable, Instruct on personal lipid levels & lipid goals/NCEP guidelines, Instruct on cholesterol and Other additional plan/int Diabetes (Other Core Measures) Diabetes Type: Not Applicable Weight Mgt (Other Care) Height: 5 ft 8 in Weight:: 120 lb BMI: 18.2 Diagnosis Overweight/Obesity BMI> 30% ICD-10 E66: No Diagnosis High BMI/Morbid Obesity BMI> 35% ICD-10 Z68: No Outcomes/Goals: Pt sets, maintains & shows weight loss goal & trend during rehab and Other additional outcomes/goals Intervention/Plan: Instruct on ideal BMI & set weight loss goal w/patient, Assist pt to ID & incorporate diet changes for weight loss by S9, Refer to Structured Weight Loss program as appropriate, Encourage goal of using 250-300dcal per session for weight loss and Other additional plan/interventions Healthy Eating Habits Will attend diet classes:: Yes Outcomes/Goals:: Consume diet rich in vegs,fruits,whole grain/high fiber,fish,lean meat, Limit sat/trans fats,cholesterol & added salts & sugars and Other additional outcome/goals: Intervention/Plan:: Assess current eating habits and Other Additional plan/interventions 30-day Reassessments:: Progressing Reassessment Notes & Comments:: Pt is scheduled to attend nutrition class. Low sodium heart healthy diet will be encouraged. Education Gave educational materials for:: Signs & symptoms of hypoglycemia, Signs & symptoms of hyperglycemia, Relate diabetes to coronary artery disease and Healthy eating Nutrition - 60-Day Assessment Weight Mgt (Other Care) Height: 5 ft 8 in Weight:: 120 lb BMI: 18.2 Core - 30-Day Assessment Visit Date of Eval: 04/10/25 Session #:: 6 Medication Compliance Preventative Medication(s):: Aspirin, PRISCILLA inhibitor, Clopidogrel/P2Y12 inhibit and Beta ely H/O mental health issues: depression, anxiety, or addiction?: No Doesn?t believe in the benefits of treatment?: No Believes medications are unnecessary or harmful?: No Has a concern about medication side effects?: No Expresses concern over the cost of medications?: No Outcomes/Goals: Verbalizes medications,desired effect & common side effects @ DC, Pt self-reports following medication regimen, Keeps card in wallet w/medications listed by DC and Other additional outcome/goals: Interventions/plans: Instruct on medication effects & side effects, Review medication list w/patient every two weeks, Instruct importance of taking meds as ordered & assist problem solving and Other additional Tobacco Use Tobacco Use: Cigarettes How many cigarettes do you smoke per day?: 2 Years Smokin Outcomes/Goals: Smoking cessation achieved or maintained by discharge, Identify aids/strategies for achieving smoking cessation by session 6 and Other additional outcome/goals Interventions/plan: Instruct on effects of smoking & provide smoking cessation resource, Assist pt to set quit date & provide encouragement, Assist pt to develop strategies to achieve/maintain quit date, Assist pt w/nicotine replacement & medication for cessation success and Other additional plan/interventions 30-day Reassessments:: Progressing Reassessment Notes & Comments:: Smoking cessation encouraged. Pt to attend smoking class. ! on 1 smoking cessation offered. Hypertension Resting Blood Pressure:: 134/62 [place] [employer] Hypertension Guidelines Peak Exercise Blood Pressure:: 140/76 Outcomes/Goals: Able to verbalize/achieve optimal blood pressure <130/80, Incorporates diet changes & exercise for blood pressure control by DC and Other additional outcomes/goals Interventions/plan: Instruct on optimal blood pressure, hypertension & medications, Instruct on effects of sodium, alcohol, stress, exercise &hypertension and Other additional plan/interventions 30 day Reassessments:: Progressing Reassessment Notes & Comments:: Pt's BP's are within AHA normal limits on most days. Will continue to monitor and report to pt's physician if necessary. Tobacco Cessation Referral Education Schedule Given:: Yes Psychosocial - 30-Day Assess VIsit Date of Eval: 04/10/25 Session #:: 6 History of previous Mental disease:: No Target Goals Target Goals Psychosocial Test Tool Used:: PHQ-9 Questionnaire phq-9 Severity See PHQ-9 Score: 2 Referral to Behavioral Health PS - Interventions: Yes: Attend Stress Management Classes Outcomes/Goals: See list Psychosocial Outcomes/Goals:: ID's personal stressors & 2 strategies to manage stress by discharge and Other Additional outcome/goals: Intervention/Plan: See List Interventions/Plan:: Assess stressors,coping strategies & signs of derpression on admission, Instruct/assist pt to develop coping & personal stress Mgt strategies, Refer to Behavioral Health if appropriate, Refer to Physician if appropriate, Instruct patient to recognize signs & symptoms of depression, Instruct patient to recog and Other additional plan/intervention 30-day Reassessments: 30 day Reassessments:: Progressing Reassessment Notes & Comments:: Pt denies any psychosocial issues at this time. Pt to attend stress management class. Psychosocial - 60-Day Assess Target Goals Target Goals Referral to Behavioral Health PS - Interventions: Yes: Attend Stress Management Classes Outcomes/Goals: See list Psychosocial Outcomes/Goals:: ID's personal stressors & 2 strategies to manage stress by discharge and Other Additional outcome/goals: Psychosocial - 90-Day Assess Target Goals Target Goals Referral to Behavioral Health PS - Interventions: Yes: Attend Stress Management Classes Psychosocial - Final Assessmen Target Goals Target Goals Referral to Behavioral Health PS - Interventions: Yes: Attend Stress Management Classes Nutrition - 90-Day Assessment Weight Mgt (Other Care) Height: 5 ft 8 in Weight:: 120 lb BMI: 18.2 Nutrition - Final Assessment Weight Mgt (Other Care) Height: 5 ft 8 in Weight:: 120 lb BMI: 18.2
[2025-04-10 12:15] VITALS: BP 134/62; BMI 18.2
== END 2025-04-10 23:59 ==
LOC: CR 13:00
PROVIDERS: PCP Family Medicine; Referring Provider Internal Medicine Cardiovascular Disease; Visit Provider Internal Medicine Cardiovascular Disease
DX: Z95.5 Presence of coronary angioplasty implant and graft (principal); I21.3 ST elevation (STEMI) myocardial infarction of unspecified site; I25.110 Atherosclerotic heart disease of native coronary artery with unstable angina pectoris; I50.20 Unspecified systolic (congestive) heart failure; I51.89 Other ill-defined heart diseases; I73.9 Peripheral vascular disease, unspecified; Z87.09 Personal history of other diseases of the respiratory system; B19.20 Unspecified viral hepatitis C without hepatic coma
CPT/HCPCS: 93798

== ENCOUNTER 2025-04-11 09:45 | Outpatient (RCR) | payer MEDICARE, SELFPAY ==
[2025-04-10 12:15] VITALS: BMI 18.2
== END 2025-05-11 23:59 ==
LOC: CR 09:45
PROVIDERS: PCP Family Medicine; Referring Provider Internal Medicine Cardiovascular Disease; Visit Provider Internal Medicine Cardiovascular Disease
DX: Z95.5 Presence of coronary angioplasty implant and graft (principal); I21.3 ST elevation (STEMI) myocardial infarction of unspecified site; I25.110 Atherosclerotic heart disease of native coronary artery with unstable angina pectoris; I50.20 Unspecified systolic (congestive) heart failure; I51.89 Other ill-defined heart diseases; I73.9 Peripheral vascular disease, unspecified; Z87.09 Personal history of other diseases of the respiratory system; B19.20 Unspecified viral hepatitis C without hepatic coma
CPT/HCPCS: 93798

== ENCOUNTER → 2025-07-01 | Outpatient (CLI) | payer MEDICARE, SELFPAY ==
--- NOTE | 2025-07-01 08:57 | ECHOL_ITS ---
Reason For Study Reason For Study: HFrEF Procedure This was a limited 2D transthoracic echocardiogram. TECHNICALLY DIFFICULT DUE TO RESPIRATORY INTERFERENCE. Exam performed in department. Left Ventricle Normal size and thickness. Apical false tendon noted. Severe inferior hypokinesis. Mid to distal inferior septal hypokinesis. Estimated LVEF 50-55%. Stage I diastolic dysfunction. Right Ventricle Normal right ventricle. Atria The left and right atria are normal. Mitral Valve Mild (1+) mitral valve insufficiency. Tricuspid Valve Mild (1+) tricuspid valve insufficiency. Normal pulmonary artery pressure. Aortic Valve The aortic valve is not well visualized in the short axis view. Pulmonic Valve The pulmonic valve is not well visualized. Great Vessels The aortic root is not well visualized. Pericardium/Pleural No pericardial effusion. MMode/2D Measurements & Calculations LVIDd: 3.8 cm IVSd: 0.71 cm LAV(MOD-sp4): 22.3 ml LVIDs: 2.2 cm LVPWd: 0.95 cm FS: 42.4 % LVAd ap4: 19.1 cm2 LVAd ap2: 20.1 cm2 SV(MOD-sp4): 26.3 ml LVLd ap4: 7.2 cm LVLd ap2: 7.6 cm SI(MOD-sp4): 16.4 ml/m2 EDV(MOD-sp4): 43.7 ml EDV(MOD-sp2): 47.8 ml EDV(sp4-el): 43.2 ml EDV(sp2-el): 45.2 ml LVAs ap4: 11.0 cm2 LVAs ap2: 11.3 cm2 LVLs ap4: 5.8 cm LVLs ap2: 6.3 cm ESV(MOD-sp4): 17.4 ml ESV(MOD-sp2): 18.7 ml ESV(sp4-el): 17.8 ml ESV(sp2-el): 17.3 ml EF(MOD-sp4): 60.1 % EF(MOD-sp2): 60.9 % EF(sp4-el): 58.9 % SV(MOD-sp2): 29.1 ml SV(sp4-el): 25.4 ml LA A4 area: 10.9 cm2 SI(MOD-sp2): 18.2 ml/m2 RA A4 area: 8.9 cm2 Time Measurements MV dec time: 0.33 sec Doppler Measurements & Calculations MV E max choco: 69.2 cm/sec Lat Peak E' Choco: 14.1 cm/sec Med Peak E' Choco: 7.9 cm/sec MV A max choco: 62.2 cm/sec E/E' lat: 4.9 E/E' med: 8.8 MV E/A: 1.1 TR max choco: 183.1 cm/sec MV dec slope: 211.8 cm/sec2 TR max P.4 mmHg ECHO/Echo, Limited Study Interpretation Summary Severe inferior hypokinesis. Mid to distal inferior septal hypokinesis. Estimat ed LVEF 50-55%. Stage I diastolic dysfunction. Mild (1+) mitral valve insufficiency. Mild (1+) tricuspid valve insufficiency. Technically difficult study. Ordering Physician: Sara Ward Referring Physician: APOLLO ARREDONDO Performed By: Ester Howell RDCS
== END | disposition home or self-care (01) ==
PROVIDERS: PCP Family Medicine; Referring Provider Nurse Practitioner Gerontology; Visit Provider Nurse Practitioner Gerontology
DX: R06.02 Shortness of breath (principal); I50.20 Unspecified systolic (congestive) heart failure
CPT/HCPCS: 93308